=== PATIENT | female | born 1955 | race Caucasian/White ===

== ENCOUNTER 2017-09-15 15:38 | Outpatient (RCR) | payer MEDICAID, SELFPAY | END 2017-09-28 23:59 | LOC: NS 15:38 | PROVIDERS: Family Provider Family Medicine; PCP Family Medicine; Visit Provider Family Medicine | DX: E66.9 Obesity, unspecified (principal); Z68.38 Body mass index [BMI] 38.0-38.9, adult; Z71.3 Dietary counseling and surveillance | CPT/HCPCS: 97802 ==

== ENCOUNTER 2017-10-10 10:00 | Outpatient (RCR) | payer MEDICAID, SELFPAY ==
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
--- NOTE | 2017-09-07 09:58 | HP.PTREVAL_ITS ---
Cristian Ramirez, HARPREET, It has been my pleasure to treat JOCE JOY over the last 4 visits for Right ankle instability. Please see the progress note below for an update on the physical therapy plan of care! Subjective: Patient reports that she is wearing an ankle brace- continue therapy and then make an apt for a possible cortisone injection. Has a cyst on her ankle- and the fracture did not heel correctly. Does not plan to have an injection. Will refer to a surgeon for possible ankle surgery- Dr. Mcintosh. Objective/Function: Posture: FH, RS, Increased kyphosis. Gait: slightly antalgic- toes turned out. SLS: 2 sec. ROM: WNL. Strength:4/5 throughout Plan Plan: Cont with POC Goals Goal 1:: Patient will be I with HEP and progression Goal Time Frame: 4-6 Weeks Goal Progress: Progressing Goal 2:: Patient will SLS for 10 sec without LOB on the right LE Goal Time Frame: 4-6 Weeks Goal Progress: Progressing Goal 3:: Patient will demo 5/5 strength in LE where deficit to ease ADL's. Goal Time Frame: 4-6 Weeks Goal Progress: Progressing Goal 4:: Patient will report no falls for 2 weeks Goal Time Frame: 4-6 Weeks Goal Progress: Goal Met Anticipated Interventions Patient/Client Instruction: Educate patient on: Benefits of Fitness Program For the Purpose of:: To increase tolerance to activity/condition/position Therapeutic Exercise to Include: Strength training, Balance training, Agility training, Body mechanics, Postural training, Flexibilty training, Gait and locomotor training, Dynamic Lumbar Stabilization For the Purpose of:: To improve muscle performance and motor function TENS: Yes Cryotherapy (ice pack, ice massage): Yes Thermo therapy (hot pack): Yes Ultrasound (thermal/non thermal): Yes For the Purpose of:: To decrease pain Please do not hesitate to contact me at [phone] by phone or Fax: if you have questions or concerns regarding this new plan of care! Sincerely, Mandy Ashley
--- NOTE | 2017-10-10 10:30 | HP.PTDCSUM ---
HP - PT D/C Summary It has been my pleasure to treat JOCE JOY under orders from Cristian Ramirez DPM, for the diagnosis of Right ankle instability for a total of 9 visit(s). Discharge Date: Please see the following information for a summary of their discharge status. - Subjective Subjective: Pt reports she just saw her Dr, and he is referring her to an orthopedic surgeon secondary to lack of progress - Pain Right Ankle Pain Intensity (Out of 10): 9 - Objective Objective/Function: No falls over the past 2 weeks. R ankle strength 5/5. Pt is I with HEP. Pt is unable to hold a SLS for greater than 3 seconds. Pt has achieved all Rx goals with the exception of increased balance. Pain is severe this date - Goals Goal 1:: Patient will be I with HEP and progression Goal Progress: Goal Met Goal 2:: Patient will SLS for 10 sec without LOB on the right LE Goal Progress: Progressing Goal 3:: Patient will demo 5/5 strength in LE where deficit to ease ADL's. Goal Progress: Goal Met Goal 4:: Patient will report no falls for 2 weeks Goal Progress: Goal Met - Plan Plan: Discontinue - D/C Information If there are questions or concerns regarding this patient's physical therapy, please feel free to call me at [phone]. Thank you for the referral of this patient. Sincerely, Samy Jade, PT,
== END 2017-10-10 19:00 | disposition home or self-care (01) ==
LOC: PT 10:00
PROVIDERS: Family Provider Family Medicine; PCP Family Medicine; Visit Provider Podiatrist Foot & Ankle Surgery
DX: M25.371 Other instability, right ankle (principal); E66.9 Obesity, unspecified; Z68.38 Body mass index [BMI] 38.0-38.9, adult; Z71.3 Dietary counseling and surveillance
CPT/HCPCS: 97110; 97161; 97530; 97802

== ENCOUNTER 2017-10-24 11:07 | Outpatient (RCR) | payer MEDICAID, SELFPAY ==
[2017-08-18 10:45] VITALS: BP 154/88; BMI 34.1
== END 2017-10-26 23:59 ==
LOC: NS 11:07
PROVIDERS: Family Provider Family Medicine; PCP Family Medicine; Visit Provider Family Medicine
DX: E66.9 Obesity, unspecified (principal); Z68.38 Body mass index [BMI] 38.0-38.9, adult; Z71.3 Dietary counseling and surveillance
CPT/HCPCS: 97803

== ENCOUNTER → 2017-11-28 10:28 | Outpatient (CLI) | payer MEDICAID, SELFPAY ==
[2017-11-28 12:56] LABS: Cholesterol 203 mg/dL (200); High Density Lipoprotein 76 mg/dL; Triglycerides 106 mg/dL; Very Low Density Lipoprotein 21 mg/dL (5-40)
== END ==
PROVIDERS: Family Provider Family Medicine; PCP Family Medicine; Visit Provider Family Medicine
DX: E78.5 Hyperlipidemia, unspecified (principal)
CPT/HCPCS: 80061

== ENCOUNTER 2017-12-02 10:07 | Outpatient (RCR) | payer MEDICAID, SELFPAY | END 2017-12-26 23:59 | LOC: NS 10:07 | PROVIDERS: Family Provider Family Medicine; PCP Family Medicine; Visit Provider Family Medicine | DX: E66.9 Obesity, unspecified (principal); Z68.38 Body mass index [BMI] 38.0-38.9, adult; Z71.3 Dietary counseling and surveillance | CPT/HCPCS: 97803 ==

== ENCOUNTER → 2018-02-16 11:18 | Outpatient (CLI) | payer MEDICAID, SELFPAY ==
[2018-02-16 11:56] LABS: Absolute Lymphocyte Count 2.48 X10^3/ul (0.83-4.51); Absolute Neutrophil Count 4.9 X10^3/uL (2.0-7.7); Basophil# 0.02 X10^3/uL; Basophil% 0.2 % (0-1); Eosinophil# 0.04 X10^3/uL; Eosinophils% 0.5 % (0-5); Hemoglobin 11.4 g/dl (12.0-15.0); Lymphocyte # 2.48 X10^3/ul (4.0); Lymphocyte % 30.1 % (19-41); Mean Corp Hgb Conc 31.7 g/gl (32-36); Mean Corpuscular Hgb 27.9 pg (27.0-32.0); Mean Platelet Vol. 8.2 fl (6.2-12.0); Monocyte# 0.75 X10^3/uL; Monocyte% 9.1 % (0-10); Neutrophil # 4.94 X10^3/uL (2.7-7.7); POSITIVE COUNT NO; POSITIVE DIFFERENTIAL NO; POSITIVE MORPHOLOGY NO; Platelet Count 353 K/mm3 (150-450); RBC Distribution Width CV 15.3 % (11.6-14.6); RBC Distribution Width SD 49.1 fl (35.1-43.9); Red Blood Count 4.09 M/mm3 (4.2-5.4); White Blood Count 8.2 K/mm3 (4.4-11.0)
== END ==
PROVIDERS: Family Provider Family Medicine; PCP Family Medicine; Visit Provider Family Medicine
DX: Z51.81 Encounter for therapeutic drug level monitoring (principal)
CPT/HCPCS: 36415; 85025

== ENCOUNTER → 2018-03-30 13:48 | Outpatient (CLI) | payer MEDICAID, SELFPAY ==
[2018-03-30 15:56] LABS: Amphetamine Urine VISTA NEGATIVE (<1000 ng/mL); Barbiturate Urine VISTA NEGATIVE (< 200 ng/mL); Benzodiazepine Urine VISTA NEGATIVE (< 200 ng/mL); Cocaine Urine VISTA NEGATIVE (< 300 ng/mL); Ecstacy Urine VISTA NEGATIVE (< 500 ng/mL); Methadone Urine VISTA NEGATIVE (< 300 ng/mL); PCP Urine VISTA NEGATIVE (< 25 ng/mL); THC Urine VISTA NEGATIVE (< 50 ng/mL); Vista UDS pH Range 6
== END ==
PROVIDERS: Family Provider Family Medicine; PCP Family Medicine; Visit Provider Anesthesiology Pain Medicine
DX: F11.20 Opioid dependence, uncomplicated (principal)
CPT/HCPCS: 80307

== ENCOUNTER → 2018-04-20 10:56 | Outpatient (CLI) | payer MEDICAID, SELFPAY | PROVIDERS: Family Provider Family Medicine; PCP Family Medicine; Visit Provider Anesthesiology Pain Medicine | DX: M48.07 Spinal stenosis, lumbosacral region (principal) | CPT/HCPCS: 72148 ==

== ENCOUNTER → 2018-04-21 13:53 | Outpatient (CLI) | payer MEDICAID, SELFPAY ==
[2018-04-21 14:35] LABS: Absolute Lymphocyte Count 2.03 X10^3/ul (0.83-4.51); Absolute Neutrophil Count 4.2 X10^3/uL (2.0-7.7); Basophil# 0.02 X10^3/uL; Basophil% 0.3 % (0-1); Eosinophil# 0.08 X10^3/uL; Eosinophils% 1.1 % (0-5); Hematocrit 34.8 % (37-47); Hemoglobin 11.4 g/dl (12.0-15.0); Lymphocyte # 2.03 X10^3/ul (4.0); Lymphocyte % 29.2 % (19-41); Mean Corp Hgb Conc 32.8 g/gl (32-36); Mean Corpuscular Hgb 28.6 pg (27.0-32.0); Mean Corpuscular Volume 87.4 fL (81-99); Mean Platelet Vol. 8.3 fl (6.2-12.0); Monocyte% 8.6 % (0-10); Neutrophil # 4.22 X10^3/uL (2.7-7.7); Neutrophil % 60.7 % (47-70); POSITIVE COUNT NO; POSITIVE DIFFERENTIAL NO; POSITIVE MORPHOLOGY NO; Platelet Count 370 K/mm3 (150-450); RBC Distribution Width SD 44.4 fl (35.1-43.9); Red Blood Count 3.98 M/mm3 (4.2-5.4)
== END ==
PROVIDERS: Family Provider Family Medicine; PCP Family Medicine; Visit Provider Family Medicine
DX: J45.909 Unspecified asthma, uncomplicated (principal); M35.00 Sjogren syndrome, unspecified; R05 Cough
CPT/HCPCS: 36415; 71046; 85025; 87070; 87205

== ENCOUNTER → 2018-04-22 09:20 | Outpatient (CLI) | payer MEDICAID, SELFPAY | PROVIDERS: Family Provider Family Medicine; PCP Family Medicine; Visit Provider Family Medicine | DX: J45.909 Unspecified asthma, uncomplicated (principal); M35.00 Sjogren syndrome, unspecified; R05 Cough | CPT/HCPCS: 87633 ==

== ENCOUNTER 2018-05-20 15:50 | Emergency (ER) | payer MEDICAID, SELFPAY ==
[2018-05-20 15:51] VITALS: BP 163/96; PULSE 82; RESP 18; TEMP 37.1; O2SAT 94; BMI 37.3
--- NOTE | 2018-05-20 17:08 | CT_ITS ---
STUDY: CT BRAIN WITHOUT CONTRAST REASON FOR EXAM: Female, 63 years old. Fall RADIATION DOSAGE (If Supplied By Facility): CTDIvol = ( 44.99 ) mGy, DLP = ( 745.49 ) mGycm TECHNIQUE: Transaxial CT imaging of the brain was performed without administration of intravenous contrast material. Individualized dose optimization techniques were used for this CT. COMPARISON: None. FINDINGS: Mild right lateral scalp swelling/hematoma. Normal calvarium. Normal size ventricles and extra-axial spaces for the patient's age. Mild white matter microangiopathic ischemic changes of the cerebral hemispheres. Normal basal ganglia and thalami. Normal brainstem. Normal cerebellum. There is no intracranial hemorrhage. There are no findings of an acute ischemic infarction. Normal visualized paranasal sinuses. CT/Brain/Head without Contrast IMPRESSION: No acute intracranial pathology of the brain. Mild age-related changes. Right lateral scalp swelling/hematoma. Electronically Signed: Trevon Chawla DO at 18:19 EDT Tel [phone], Service support ,
--- NOTE | 2018-05-20 18:43 | ED.DCSUM_ITS ---
- ER Visit Summary Date of Service: 05/20/18 Chief Complaint: Head injury History of Present Illness: The patient is a 63 F who states that she was out in the yard doing yard work when she tripped in a hole and fell striking her head. No loss of consciousness. She notes some light sensitivity. She is not on any blood thinners. She notes a hematoma to her right parietal scalp. Physical Examination: Afebrile vital signs stable Gen: Well-nourished well-developed Head: Normocephalic right parietal scalp hematoma Eyes: Perrl EOMI ENT: TMs clear no rhinorrhea moist mucous membranes Neck: Supple no lymphadenopathy no JVD nontender CVS: Regular rate rhythm no murmurs normal S1-S2 Respiratory: No distress clear to auscultation bilaterally chest nontender Abdomen: Soft nontender nondistended normal bowel sounds no masses Back: Nontender Extremity: Nontender no edema Skin: Normal color no rash Neuro: alert orientated ?3 CN II-XII intact normal strength sensation reflexes gait cerebellar Psych: Normal affect normal mood Test Results: Given the location of her hematoma and out of concern for epidural hematoma or skull fracture CT was obtained which was negative Emergency Department Course and Treatment: Patient will be discharged home to follow-up with her doctor. Tylenol for pain. Impression: 1. Scalp hematoma This note was generated with [employer] dictation software. It may contain incorrect words, spelling, and punctuation that were not noted in review of the chart prior to signing ED Disposition - Plan for ED Patient: Disposition: Home or Assisted Living Chief Complaint: Head Injury Instructions: ED Contusion Scalp Referrals: Bay Ramos DO [Primary Care Provider] - 1 Week if not improving
[2018-05-20 18:48] VITALS: PULSE 79; RESP 12; O2SAT 97
== END 2018-05-20 18:49 | disposition home or self-care (01) ==
PROVIDERS: Emergency Provider Emergency Medicine; Family Provider Family Medicine; PCP Family Medicine
DX: S00.03XA Contusion of scalp, initial encounter (principal); R40.2410 Glasgow coma scale score 13-15, unspecified time; W01.0XXA Fall on same level from slipping, tripping and stumbling without subsequent striking against object, initial encounter; Y93.9 Activity, unspecified; Y92.9 Unspecified place or not applicable; I10 Essential (primary) hypertension; E78.00 Pure hypercholesterolemia, unspecified; F31.9 Bipolar disorder, unspecified; Z90.49 Acquired absence of other specified parts of digestive tract; Z79.899 Other long term (current) drug therapy
CPT/HCPCS: 70450; 99282

== ENCOUNTER → 2018-06-05 10:21 | Outpatient (CLI) | payer MEDICAID, SELFPAY ==
[2018-06-05 12:09] LABS: ALB/GLOB Ratio 0.9 RATIO (0.9-2.4); AST(SGOT) 19 U/L (15-37); Alanine Aminotransfer ALT/SGPT 22 U/L (13-56); Albumin, Serum 3.7 g/dL (3.2-5.0); Alkaline Phosphatase 84 U/L (45-117); Anion Gap 8 (5-15); BUN 14 mg/dL (7-18); BUN/Creat Ratio 18.6 RATIO (10-20); Chloride 96 mmol/L (98-107); Cholesterol 210 mg/dL (200); Creatinine, Serum 0.75 mg/dL (0.55-1.02); EST Glomerular Filtration Rate 83 mL/min (>60); Est Glom Filt Rate - Afr Amer 101 mL/min (>60); Globulin 4.2 g/dL (2.2-4.2); Glucose 84 mg/dL (74-106); High Density Lipoprotein 84 mg/dL; Potassium 4.1 mmol/L (3.5-5.1); Protein, Total 7.9 g/dL (6.4-8.2); Sodium Level 130 mmol/L (136-145); Triglycerides 92 mg/dL; Very Low Density Lipoprotein 18 mg/dL (5-40)
== END ==
PROVIDERS: Family Provider Family Medicine; PCP Family Medicine; Visit Provider Family Medicine
DX: I10 Essential (primary) hypertension (principal); E78.5 Hyperlipidemia, unspecified
CPT/HCPCS: 36415; 80053; 80061

== ENCOUNTER → 2018-07-03 10:35 | Outpatient (CLI) | payer MEDICAID, SELFPAY ==
--- NOTE | 2018-07-03 10:37 | BI_ITS ---
MAMMOGRAPHY - BILATERAL SCREENING REASON FOR EXAM: Female, 63 years old. Routine annual screening examination. PERTINENT HISTORY: Non-contributory. TECHNIQUE: Digital bilateral breast pepe (3D mammographic acquisition) in the CC and MLO projections. 2-D mediolateral oblique (MLO) and craniocaudad (CC) views of both breasts were obtained. CAD: Full Field Digital Mammography with Computer Added Detection was performed. COMPARISON: Comparison is made with prior study dated June 20, 2017 and June 18, 2016. FINDINGS: Breast Composition: The breasts are almost entirely fatty. There are no dominant masses or suspicious calcifications. No other significant abnormalities are identified. There has been no significant change since the prior study. BI/SCREENING MAMM (CAD), BILAT IMPRESSION: Stable bilateral screening mammogram. Yearly follow-up mammogram recommended. (A) ASSESSMENT CATEGORY: BIRADS Category 1: Negative. A letter regarding these results will be sent to the patient by the facility within 30 days. Approximately 10% of breast cancers are not detected by mammography. A normal mammogram should not delay biopsy of a clinically suspicious abnormality. [id number] Electronically Signed: Tahir Boone MD at 13:32 EST Tel [phone], Service support ,
== END ==
PROVIDERS: Family Provider Family Medicine; PCP Family Medicine; Visit Provider Obstetrics & Gynecology
DX: Z12.31 Encounter for screening mammogram for malignant neoplasm of breast (principal)
CPT/HCPCS: 77063; 77067

== ENCOUNTER 2018-07-25 06:04 | Day surgery (SDC) | payer MEDICAID, SELFPAY ==
[2018-07-25 06:38] VITALS: BP 104/76; PULSE 92; RESP 16; TEMP 36.4; O2SAT 98; BMI 36.2
[2018-07-25] MEDS: Vancomycin IV 1,000 MG/200 ML BAG 200 MG IV (06:59)
[2018-07-25 09:32] VITALS: BP 104/76; BP 98/64; PULSE 73; RESP 16; TEMP 36.5; O2SAT 100
--- NOTE | 2018-07-25 09:43 | DCINST_ITS ---
Discharge Diet: No Restrictions Discharge Activity: May not drive while taking narcotic pain medications., May Not Shower May resume sexual activity in: 8 weeks Call your doctor if your incision/area has: Continuous Slow Oozing, Sudden Increased Bleeding, Increased Pain/ Swelling, Increased Redness, Foul Smelling Discharge, Swelling at the incision site Call your doctor if you observe: Fever of 101 or Higher, Inability to urinate, Shortness of breath, Chest pain, Calf discomfort, Uncontrolled pain Cleanse incision/area with: Do not get Incision Wet Allergies/Adverse Reactions: Allergies tramadol [From Ultram] Allergy (Intermediate, Verified 07/25/18 06:35) Itching bee pollen Allergy (Verified 07/25/18 06:35) Anaphylaxis shellfish derived Allergy (Verified 07/25/18 06:35) Unknown divalproex sodium [From Depakote] Adverse Reaction (Intermediate, Verified 07/25/18 06:35) Other - nightmares quetiapine [From Seroquel] Adverse Reaction (Mild, Verified 07/25/18 06:35) Other - shaking, lightheaded and abnormal dreams meloxicam Adverse Reaction (Verified 07/25/18 06:35) Unknown oxycodone [Oxycodone] Adverse Reaction (Verified 07/25/18 06:35) Rash bee sting Allergy (Severe, Uncoded 07/25/18 06:35) Anaphylaxis STEROIDS Allergy (Intermediate, Uncoded 07/25/18 06:35) Hives & swelling Medications to take at Discharge Estradiol [Estrace] 1 mg PO DAILY 09/09/13 Hydrochlorothiazide 12.5 mg PO DAILY 09/09/13 Lisinopril [Zestril] 20 mg PO BID 09/09/13 Duloxetine Hcl [Cymbalta] 30 mg PO BID 06/17/16 Epinephrine [Epi Pen] 0.3 mg IM X1 06/17/16 Omeprazole [Prilosec] 40 mg PO DAILY 06/17/16 Potassium Chloride [K-Dur] 20 meq PO BID 06/17/16 ipratropium-albuterol 0.5 mg-3 mg(2.5 mg base)/3 mL nebulization soln 3 ml INHALATION Q6H PRN ml 08/13/17 ipratropium bromide 0.03 % nasal spray 2 spray INTRANASAL BID-TID PRN #30 ml 02/20/18 fluticasone 44 mcg/actuation HFA aerosol inhaler 2 inh INHALATION BID 05/15/18 dextromethorphan-guaifenesin 20 mg-400 mg tablet 1 tab PO Q4H PRN #30 tab 05/22/18 Albuterol Aerosols [Ventolin Aerosols] 2.5 mg INHALATION TID 07/18/18 Albuterol IH (ProAir) [Proair Hfa] 2 puff INHALATION TID 07/18/18 Amlodipine [Norvasc] 10 mg PO DAILY 07/18/18 Cetirizine HCl [Zyrtec] 10 mg PO DAILY 07/18/18 Hydroxychloroquine [Plaquenil] 200 mg PO BIDCM 07/18/18 Multivitamin [Multiple Vitamins] 1 each PO DAILY 07/18/18 Cephalexin [Keflex] 500 mg PO Q12 3 Days #6 cap 07/25/18 Oxycodone HCl/Acetaminophen [Percocet 5/325] 1 - 2 tab PO Q6H PRN PRN 7 Days #30 tab 07/25/18 The following prescriptions were given: Oxycodone HCl/Acetaminophen [Percocet 5/325] 1 - 2 tab PO Q6H PRN PRN 7 Days #30 tab PRN Reason: Pain Cephalexin [Keflex] 500 mg PO Q12 3 Days #6 cap Primary Care Physician: Bay Ramos DO [Primary Care Provider] - Test Results: Test results from this visit will be discussed in further detail at your follow- up appointment, if applicable. Please Follow Up With: Darya Abreu MD When: 1 week, call for appt Proposed Discharge Date: 07/25/18
--- NOTE | 2018-07-25 09:43 | PCM.IMDPSTOP ---
Immediate Post-Op Note Date of Procedure: 07/25/18 Primary Surgeon/Physician: Darya Abreu MD entry specialists: Darya Abreu Pre-Operative Diagnosis: urgency urination, urinary frequency, nocturia. Post-Operative Diagnosis: same Surgery/Procedure Performed:: Interstim Stage 1 Description of Surgical Findings:: lead inserted in patient's left side, medial and good curvature on A-P view. It is steep angle on lateral view, but good minevra and toe on all four leads. Estimated Blood Loss: 2cc Specimen's removed: none Type of Anesthesia:: MAC/Supplemental Special Medications: vancomycin, lidocaine with epi - Admit VTE Documentation VTE Present on Admission: No VTE Mechan Device Prophylaxis: None VTE Pharm Prophylaxis ordered?: No Reason prophylaxis not ordered:: Treatment Not Indicated
[2018-07-25 09:45] VITALS: BP 102/67; BP 104/76; PULSE 78; RESP 16; O2SAT 100
--- NOTE | 2018-07-25 09:46 | OP.PN_ITS ---
Immediate Post-Op Note Date of Procedure: 07/25/18 Primary Surgeon/Physician: Darya Abreu MD packing attendant: Darya Abreu Pre-Operative Diagnosis: urgency urination, urinary frequency, nocturia. Post-Operative Diagnosis: same Surgery/Procedure Performed:: Interstim Stage 1 Description of Surgical Findings:: lead inserted in patient's left side, medial and good curvature on A-P view. It is steep angle on lateral view, but good minerva and toe on all four leads. Estimated Blood Loss: 2cc Specimen's removed: none Type of Anesthesia:: MAC/Supplemental Special Medications: vancomycin, lidocaine with epi - Admit VTE Documentation VTE Present on Admission: No VTE Mechan Device Prophylaxis: None VTE Pharm Prophylaxis ordered?: No Reason prophylaxis not ordered:: Treatment Not Indicated
--- NOTE | 2018-07-25 09:46 | PCM.OPRPT ---
Problem List (1) Urinary frequency Status: Acute (2) Urinary urgency Status: Acute (3) Urinary incontinence, urge Status: Acute Report of Operation Date of Procedure: 07/25/18 Pre-Operative Diagnosis: urgency urination, urinary frequency, nocturia. Post-Operative Diagnosis: same Surgery/Procedure Performed:: Interstim Stage 1 Description of Surgical Findings:: lead inserted in patient's left side, medial and good curvature on A-P view. It is steep angle on lateral view, but good pancho and toe on all four leads. continuous improvement engineer: Darya Abreu Type of Anesthesia:: MAC/Supplemental Special Medications: vancomycin, lidocaine with epi Specimen's removed: none Estimated Blood Loss (mL): 2cc Description of Procedure: The patient is a 63-year-old female with severe urinary urgency frequency and incontinence refractory to level 1 and 2 management strategies. After full evaluation including urodynamics and office cystoscopy, the patient agreed to proceed with an InterStim trial. All risks benefits and alternatives were discussed preoperatively. The patient was taken to the operating room and placed in a prone position on the operating room table. All dependent areas were appropriately padded and secured to the table. Anesthesia monitored the head, neck, airway, IV access and vital signs throughout the case. Once anesthesia was appropriately administered the patient was prepped and draped in usual sterile fashion. C-arm was draped in sterile fashion as well. Fluoroscopic visualization was used for confirmation of lead placement. The area of her sacrum was mapped out using fluoroscopy and the insertion sites of the needles bilaterally were numbed using lidocaine with epinephrine. The needle was passed into the S3 foramen and good pancho response and toe was obtained. This was on the patient's right side. After attempted passage of the lead into this foramen on the patient's right side attempts were unsuccessful at obtaining Pancho and toe response. The entire leg rotated with stimulation. I was unable to place a needle in a good position and obtain stimulation on all 4 leads on the patient's right side and the decision was made to move to her left side. The needle was placed in a very acute angle through her sacrum on lateral view. On AP view however, the needle appeared to be in good position. On testing all 4 leads obtained good pancho and toe response. Decision was made to keep the lead placement on the patient's left side. The guidewire is passed and the incision was made surrounding the guidewire. A dilator was passed through into the foramen using fluoroscopic guidance. This time the lead was passed in a curved fashion and as mentioned above all 4 leads obtained good responses. The lead was then tunneled into the pocket site on the patient's right side. This pocket was formed using both sharp and blunt dissection and lidocaine for anesthesia. This was then tunneled to the opposite side for prevention of infection. The incision was closed using 3-0 interrupted sutures followed by 4-0 subcuticular. Dermabond was placed on top of this. Once this was appropriately dried the lead extension was attached to the lead and secured to the patient using Tegaderm and tape. Patient was then awakened and taken to the recovery room in good condition. There were no complications during this procedure. Grafts/Implants Used: Interstim Stage 1 lead and extension - Complications none - Admit VTE Documentation VTE Present on Admission: No VTE Mechan Device Prophylaxis: None VTE Pharm Prophylaxis ordered?: No Reason prophylaxis not ordered:: Treatment Not Indicated
[2018-07-25 09:49] VITALS: BP 103/68; BP 104/76; PULSE 75; RESP 16; TEMP 36.6; O2SAT 100
[2018-07-25 11:08] VITALS: BP 104/76
--- OUTSIDE RECORDS SUMMARY | 2018-09-05 19:25 | XMS RPT_ITS ---
:1955 Author Organization OHIP Support Name Relationship Address Phone D Unavailable Unavailable Unavailable ROSE MARIE, LIDIA Unavailable [address] + [place] [address] D Unavailable Unavailable Unavailable ROSE MARIE, LIDIA Unavailable [address] + [place] [address] D Unavailable Unavailable Unavailable ROSE MARIE, LIDIA Unavailable [address] + [place] [address] D Unavailable Unavailable Unavailable ROSE MARIE, LIDIA Unavailable [address] + [place] [address] D Unavailable Unavailable Unavailable ROSE MARIE, LIDIA Unavailable [address] + [place] [address] D Unavailable Unavailable Unavailable ROSE MARIE, LIDIA Unavailable [address] + [place] [address] D Unavailable Unavailable Unavailable ROSE MARIE, LIDIA Unavailable [address] + [place] [address] D Unavailable Unavailable Unavailable ROSE MARIE, LIDIA Unavailable [address] + [place] [address] D Unavailable Unavailable Unavailable ROSE MARIE, LIDIA Unavailable [address] + [place] [address] D Unavailable Unavailable Unavailable ROSE MARIE, LIDIA Unavailable [address] + [place] [address] D Unavailable Unavailable Unavailable ROSE MARIE, LIDIA Unavailable [address] + [place] [address] D Unavailable Unavailable Unavailable ROSE MARIE, LIDIA Unavailable [address] + [place] [address] D Unavailable Unavailable Unavailable ROSE MARIE, LIDIA Unavailable [address] + [place] [address] D Unavailable Unavailable Unavailable ROSE MARIE, LIDIA Unavailable [address] + [place] [address] D Unavailable Unavailable Unavailable ROSE MARIE, LIDIA Unavailable [address] + [place] [address] D Unavailable Unavailable Unavailable ROSE MARIE, LIDIA Unavailable [address] + [place] [address] D Unavailable Unavailable Unavailable ROSE MARIE, LIDIA Unavailable [address] + [place] [address] D Unavailable Unavailable Unavailable ROSE MARIE, LIDIA Unavailable [address] + [place] [address] D Unavailable Unavailable Unavailable ROSE MARIE, LIDIA Unavailable [address] + [place] [address] D Unavailable Unavailable Unavailable ROSE MARIE, LIDIA Unavailable [address] + [place] [address] D Unavailable Unavailable Unavailable ROSE MARIE, LIDIA Unavailable [address] + [place] [address] D Unavailable Unavailable Unavailable ROSE MARIE, LIDIA Unavailable [address] + [place] [address] D Unavailable Unavailable Unavailable SYEDA, LIDIA Unavailable [address] + [place] [address] Care Team Providers Name Role Phone ISI GANDHI Attending Unavailable TESTRAKEISI Referring Unavailable TESTRAISI IVAN Attending Unavailable TESTRAKEISI Referring Unavailable RAY, GÉNESIS Attending Unavailable RAY, GÉNESIS Referring Unavailable RAY, GÉNESIS Referring Unavailable RAY, GÉNESIS Attending Unavailable TestraIsi ivan Attending Unavailable Richard, Bay Primary Care Unavailable Cristobal Olmos Attending Unavailable Bay Ramos Referring Unavailable RichardBay frank Primary Care Unavailable TAMARA ESPARZA Attending Unavailable Bay Ramos Primary Care Unavailable Bay Ramos Attending Unavailable Bay Ramos Referring Unavailable RichardBay Primary Care Unavailable RichardBay frank Attending Unavailable Richard, Bay Referring Unavailable Richard, Bay Primary Care Unavailable Richard, Bay Attending Unavailable Richard, Bay Referring Unavailable Richard, Bay Primary Care Unavailable Ryland, Angélica Attending Unavailable Richard, Bay Referring Unavailable Marcelino, Angélica Attending Unavailable Richard, Bay Referring Unavailable Richard, Bay Attending Unavailable Richard, Bay Primary Care Unavailable Richard, Bay Attending Unavailable Richard, Bay Referring Unavailable Richard, Bay Primary Care Unavailable Richard, Bay Attending Unavailable Richard, Bay Primary Care Unavailable Richard, Bay Referring Unavailable Marcelino, Angélica Attending Unavailable Richard, Bay Referring Unavailable Basali, Joe Attending Unavailable Basali, Joe Referring Unavailable Richard, Bay Primary Care Unavailable Daniel, Joe Attending Unavailable Basali, Gabrieleman Referring Unavailable Richard, Bay Primary Care Unavailable Richard, Bay Attending Unavailable Richard, Bay Referring Unavailable Richard, Bay Primary Care Unavailable Richard, Bay Attending Unavailable Richard, Bay Referring Unavailable Richard, Bay Primary Care Unavailable Angélica Marcelino Attending Unavailable Richard, Bay Referring Unavailable Richard, Bay Primary Care Unavailable Vincenzo Martinez Attending Unavailable Richard, Bay Attending Unavailable Richard, Bay Primary Care Unavailable Wesley Thomas Attending Unavailable Richard, Bay Primary Care Unavailable Darya Abreu Attending Unavailable Darya Abreu Referring Unavailable Richard, Bay Primary Care Unavailable Darya Abreu Attending Unavailable Darya Abreu Referring Unavailable Richard, Bay Primary Care Unavailable Cristobal Olmos Attending Unavailable Richard, Bay Referring Unavailable PROBLEMS PROBLEMS DATE TYPE CONDITION / CODE ATTENDING STATUS SOURCE 08/08/2018 Unknown R39.15 - Urgency of Darya Abreu Active [place] urination / Community R39.15(ICD-10) Hospital Repository 08/02/2018 Unknown R09.82 - Postnasal Cristobal Olmos Active [place] drip / Community R09.82(ICD-10) Hospital Repository 07/25/2018 Unknown R35.0 - Frequency Darya Abreu Active [place] of micturition / Community R35.0(ICD-10) Hospital Repository 06/05/2018 Unknown E78.5 - Bay Ramos Active [place] Hyperlipidemia, Community unspecified / Hospital E78.5(ICD-10) Repository 06/05/2018 Unknown I10 - Essential Bay Ramos Active [place] (primary) Community hypertension / Hospital I10(ICD-10) Repository 04/21/2018 Unknown M35.00 - Sicca Bay Ramos Active [place] syndrome, Community unspecified / Hospital M35.00(ICD-10) Repository 04/21/2018 Unknown J45.909 - Bay Ramos Active [place] Unspecified asthma, Community uncomplicated / Hospital J45.909(ICD-10) Repository 04/13/2018 Unknown F11.20 - Opioid Basali, Ayman Active [place] dependence, Community uncomplicated / Hospital F11.20(ICD-10) Repository 02/20/2018 Unknown J45.20 - Mild Marcelino, Active [place] intermittent Angélica [facility] asthma, Hospital uncomplicated / Repository J45.20(ICD-10) 02/16/2018 Unknown Z51.81 - Encounter Bay Ramos Active [place] for therapeutic Community drug level Hospital monitoring / Repository Z51.81(ICD-10) 12/27/2017 Unknown E66.9 - Obesity, Bay Ramos Active [place] unspecified / Community E66.9(ICD-10) Hospital Repository 11/04/2017 Active [place]ca syndrome, NA Active [facility] unspecified / [facility] [place] M35.00(ICD-10) Repository 10/13/2017 Unknown M25.371 - Other [place], Active [place] instability, right [facility] ankle / Hospital M25.371(ICD-10) Repository PROCEDURES PROCEDURES No Procedure Records FoundRESULTS RESULTS OPERATIVE REPORT Observed: 08/08/2018 Status: F Source: [place] 10:56 AM COUNT INCLUDES THE [facility] HOSPITAL REPOSITORY [facility] Medical Records Department [address] [place] [address] Operative Report 08/08/18 1052 MR#: [id number] Acct: [id number] Name: WINTER JOY Rep #: [id number] : 1955 63 From: Darya Abreu MD PCP: Bay Ramos DO Status: DEP [facility] [place] [place] Y Location: [facility] [place] [place] Problem List (1) Urinary frequency Status: Acute (2) Urinary urgency Status: Acute (3) Urinary incontinence, urge Status: Acute Report of Operation Date of Procedure: 08/08/18 Pre-Operative Diagnosis: urinary urgency, frequency, urge incontinence. Post-Operative Diagnosis: same Surgery/Procedure Performed:: Interstim Stage 2 Description of Surgical Findings:: no sign of infection. no impedances. implanted IPG without complication on her right side. nutritional services cook: Darya Abreu Type of Anesthesia:: MAC/Supplemental/Local Specimen's removed: none Estimated Blood Loss (mL): 2cc Description of Procedure: The patient is a 63-year-old female with a successful InterStim stage I who presents for insertion of her IPG. All risks, benefits and alternatives were discussed. The patient was taken to the operating room and placed in a prone position on the operating room table. All dependent portions of her body were appropriately padded and she was secured to the table. At this time the op sites and bandages from the stage I were carefully removed. Anesthesia monitored the head, neck, airway, IV access, vital signs throughout the case. Once anesthesia was appropriately administered the patient was prepped and draped in usual sterile fashion. The area of the incision overlying the boot was infiltrated with lidocaine and the incision was opened with hemostats. Using blunt dissection the boot was identified and brought into the operative field. The Prolene sutures were cut and the boot was removed. The lead was taken out of the extension using the torque wrench. The pocket was appropriately enlarged and developed using both cautery and blunt dissection. Hemostatic control was achieved. The lead was cleaned and dried and inserted into the IPG and secured using the torque wrench. The IPG was then placed into the pocket and the skin was brought together. Testing revealed no impedances. The pocket was then closed in 2 layers using 3-0 interrupted suture followed by 4-0 subcuticular suture. The incision was then covered with Dermabond. Once dry, the patient was awakened and the lead extension was removed without difficulty. She was taken to the recovery room in good condition. There were no complications during this procedure. Grafts/Implants Used: Interstim IPG - Complications none - Admit VTE Documentation VTE Present on Admission: Yes VTE Mechan Device Prophylaxis: SCD's, None Reason prophylaxis not ordered:: Treatment Not Indicated 08/08/18 1056 <Electronically signed by Darya Abreu MD> Date Darya Abreu MD CC: Darya Abreu MD; Bay Ramos DO Signed DISCHARGE INSTRUCTION Observed: 08/08/2018 Status: F Source: [place] 8:27 AM [facility] REPOSITORY [facility] Medical Records Department [address] [place] [address] Instructions for Home/Discharge Instructions 08/08/18 0823 MR#: [id number] Acct: [id number] Name: WINTER JOY Rep #: [id number] : 1955 63 From: Darya Abreu MD PCP: Bay Ramos DO Status: REG SDC Discharge Diet: No Restrictions Discharge Activity: May not drive while taking narcotic pain medications., May Shower, - - no tub bathing for 4 weeks. May resume sexual activity in: No Restrictions Call your doctor if your incision/area has: Continuous Slow Oozing, Sudden Increased Bleeding, Increased Pain/ Swelling, Increased Redness, Foul Smelling Discharge, Swelling at the incision site Call your doctor if you observe: Fever of 101 or Higher, Inability to urinate, Shortness of breath, Chest pain, Calf discomfort, Uncontrolled pain Allergies/Adverse Reactions: Allergies tramadol [From Ultram] Allergy (Intermediate, Verified 08/02/18 09:09) Itching bee pollen Allergy (Verified 08/02/18 09:09) Anaphylaxis shellfish derived Allergy (Verified 08/02/18 09:09) Unknown divalproex sodium [From Depakote] Adverse Reaction (Intermediate, Verified 08/02/18 09:09) Other - nightmares quetiapine [From Seroquel] Adverse Reaction (Mild, Verified 08/02/18 09:09) Other - shaking, lightheaded and abnormal dreams meloxicam Adverse Reaction (Verified 08/02/18 09:09) Unknown oxycodone [Oxycodone] Adverse Reaction (Verified 08/02/18 09:09) Rash bee sting Allergy (Severe, Uncoded 08/02/18 09:09) Anaphylaxis STEROIDS Allergy (Intermediate, Uncoded 08/02/18 09:09) Hives AND swelling Medications to take at Discharge Estradiol [Estrace] 1 mg PO DAILY 09/09/13 Hydrochlorothiazide 12.5 mg PO DAILY 09/09/13 Lisinopril [Zestril] 20 mg PO BID 09/09/13 Duloxetine Hcl [Cymbalta] 30 mg PO BID 06/17/16 Epinephrine [Epi Pen] 0.3 mg IM X1 06/17/16 Omeprazole [Prilosec] 40 mg PO DAILY 06/17/16 Potassium Chloride [K-Dur] 20 meq PO BID 06/17/16 ipratropium-albuterol 0.5 mg-3 mg(2.5 mg base)/3 mL nebulization soln 3 ml INHALATION Q6H PRN ml 08/13/17 ipratropium bromide 0.03 % nasal spray 2 spray INTRANASAL BID-TID PRN #30 ml 02/20/18 Albuterol Aerosols [Ventolin Aerosols] 2.5 mg INHALATION TID 07/18/18 Albuterol IH (ProAir) [Proair Hfa] 2 puff INHALATION TID 07/18/18 Amlodipine [Norvasc] 10 mg PO DAILY 07/18/18 Cetirizine HCl [Zyrtec] 10 mg PO DAILY 07/18/18 Hydroxychloroquine [Plaquenil] 200 mg PO BIDCM 07/18/18 Multivitamin [Multiple Vitamins] 1 ea PO DAILY 07/18/18 guaifenesin ER 1,200 mg tablet, extended release 12 hr 1,200 mg PO Q12H #60 tab 08/02/18 Primary Care Physician: Bay Ramos DO [Primary Care Provider] - Test Results: Test results from this visit will be discussed in further detail at your follow-up appointment, if applicable. Please Follow Up With: Darya Abreu MD When: 1 weeks, call office for appt Proposed Discharge Date: 08/08/18 08/08/18 0827 <Electronically signed by Darya Abreu MD> Date Darya Abreu MD CC: Bay Ramos DO PULMONARY VISIT REPORT Observed: 08/02/2018 Status: F Source: [place] 10:05 AM [facility] REPOSITORY [facility] [place] [address] [place] [address] OFFICE VISIT Date of Service: 08/02/18 MR#: [id number] Acct: [id number] Name: WINTER JOY Rep #: [id number] : 1955 Provider: Cristobal Olmos MD Age/Sex: 63/F Location: [facility] [place] Status: Signed Assessment AND Plan Problems 1. Mild intermittent asthma in adult without complication J45.20 2. PND (post-nasal drip) R09.82 Plan Patient overall appears to be doing well. Lack of need for Flovent likely secondary to decrease in temperature and less environmental stimulation. Patient should stay off of Flovent at this time. Patient may need to be reinitiated on Flovent in the spring when allergies are high. Patient was given a prescription for Mucinex therapy. Okay to stay off of Flovent now. Likely reinitiate in the spring. Medications New: Discontinued: dextromethorphan-guaifenesin 20-400 mg Discontinued1 tab PO Q4H PRN 30 tabs 0RF cough Reason: Order Changed Plan Detail Follow Up 6 Months (CSM) HPI 6 M FU: Chief Complaint: Cough Details: Patient is a 63-year-old female, currently under the care of Dr. Ramos, who presents for evaluation secondary to cough. Since last visit, patient denies any ER visits, hospitalizations or prednisone burst. Patient subjectively feels unchanged compared to previous. Patient reports that she is currently off of Flovent therapy. Patient is still using albuterol twice daily, but this appears to be out of habit more than necessity. Patient had never initiated herself on Mucinex therapy, but feels her sinus congestion is slightly improved compared to previous. Patient continues to have a cough that is intermittently productive. This is typically productive of the same as nasal secretions. No chest pain is been reported. Patient has recently had an intervention for bladder stimulator. Patient states that stage II is to be in July. HPI Comments Details: Intake Vital Signs08/02/18 Body Mass Index (BMI) 36.2 08/02/18 Height 5 ft 3 in 08/02/18 Weight: 98.883 kg Intake Visit Reasons: 6 M FU Accompanied by: Self Allergies tramadol [From Ultram] Allergy (Intermediate, Verified 08/02/18 09:09) Itching bee pollen Allergy (Verified 08/02/18 09:09) Anaphylaxis shellfish derived Allergy (Verified 08/02/18 09:09) Unknown divalproex sodium [From Depakote] Adverse Reaction (Intermediate, Verified 08/02/18 09:09) Other - nightmares quetiapine [From Seroquel] Adverse Reaction (Mild, Verified 08/02/18 09:09) Other - shaking, lightheaded and abnormal dreams meloxicam Adverse Reaction (Verified 08/02/18 09:09) Unknown oxycodone [Oxycodone] Adverse Reaction (Verified 08/02/18 09:09) Rash bee sting Allergy (Severe, Uncoded 08/02/18 09:09) Anaphylaxis STEROIDS Allergy (Intermediate, Uncoded 08/02/18 09:09) Hives AND swelling Medications Estradiol [Estrace] 1 mg PO DAILY 09/09/13 [History Confirmed 08/02/18] Hydrochlorothiazide 12.5 mg PO DAILY 09/09/13 [History Confirmed 08/02/18] Lisinopril [Zestril] 20 mg PO BID 09/09/13 [History Confirmed 08/02/18] Duloxetine Hcl [Cymbalta] 30 mg PO BID 06/17/16 [History Confirmed 08/02/18] Epinephrine [Epi Pen] 0.3 mg IM X1 06/17/16 [History Confirmed 08/02/18] Omeprazole [Prilosec] 40 mg PO DAILY 06/17/16 [History Confirmed 08/02/18] Potassium Chloride [K-Dur] 20 meq PO BID 06/17/16 [History Confirmed 08/02/18] ipratropium-albuterol 0.5 mg-3 mg(2.5 mg base)/3 mL nebulization soln 3 ml INHALATION Q6H PRN ml 08/13/17 [History Confirmed 08/02/18] ipratropium bromide 0.03 % nasal spray 2 spray INTRANASAL BID-TID PRN #30 ml 02/20/18 [Rx Confirmed 08/02/18] Albuterol Aerosols [Ventolin Aerosols] 2.5 mg INHALATION TID 07/18/18 [History Confirmed 08/02/18] Albuterol IH (ProAir) [Proair Hfa] 2 puff INHALATION TID 07/18/18 [History Confirmed 08/02/18] Amlodipine [Norvasc] 10 mg PO DAILY 07/18/18 [History Confirmed 08/02/18] Cetirizine HCl [Zyrtec] 10 mg PO DAILY 07/18/18 [History Confirmed 08/02/18] Hydroxychloroquine [Plaquenil] 200 mg PO BIDCM 07/18/18 [History Confirmed 08/02/18] Multivitamin [Multiple Vitamins] 1 ea PO DAILY 07/18/18 [History Confirmed 08/02/18] guaifenesin ER 1,200 mg tablet, extended release 12 hr 1,200 mg PO Q12H #60 tab 08/02/18 [Rx Confirmed 08/02/18] PFSH Medical History Encounter for screening for malignant neoplasm of colon (Acute) Epigastric abdominal pain (Acute) Back sprain (Acute) Chest pain (Acute) Lightheadedness (Acute) Loss of appetite (Acute) Otitis media (Acute) Right flank pain (Acute) Sinusitis (Acute) Anxiety (Chronic) Asthma (Chronic) Bipolar disorder (Chronic) Depression (Chronic) Eustachian tube dysfunction (Chronic) GERD (gastroesophageal reflux disease) (Chronic) Hepatitis (Chronic) Herpes simplex with unspecified complication (Chronic) Hyperlipidemia (Chronic) Hypertension (Chronic) Long-term use of high-risk medication (Chronic) Mild dilation of ascending aorta (Chronic) Mild mitral regurgitation (Chronic) Nephrolithiasis (Chronic) Nightmares (Chronic) OCD (obsessive compulsive disorder) (Chronic) TROY (obstructive sleep apnea) (Chronic) Obesity (Chronic) Paroxysmal atrial tachycardia (Chronic) Rhinorrhea (Chronic) Segmental and somatic dysfunction of cervical region (Chronic) Segmental and somatic dysfunction of thoracic region (Chronic) Spinal stenosis of lumbar region (Chronic) Thoracic aortic aneurysm without rupture (Chronic) H/O: hysterectomy (Resolved) Surgical History H/O eye surgery (Resolved) H/O hand surgery (Resolved) History of appendectomy (Resolved) History of bilateral carpal tunnel release (Resolved) History of total right knee replacement (Resolved) Hx laparoscopic cholecystectomy (Resolved) bladder sling removal (Resolved) Family History Father Cancer Mother Heart disease H/O weight disorder Sister Hypertension Social History Smoking Status: Never smoker second hand exposure: No alcohol intake: never substance use type: does not use Review of Systems Const CONSTITUTIONAL: Positive anorexia, body ache and fatigue; negative chills, daytime sleepiness, fever(s), night sweats, oral thrush, stops breathing during sleep, weight loss, sleeping in chair, weight loss, weight gain, frequent colds, seasonal allergies, other, headache(s) or orthopnea EETM Ear Nose Throat Mouth: Positive hearing normal, itchy eyes and nasal discharge; negative hard of hearing, hoarseness, dry mouth in morning, change in vision, eye pain, swallowing Difficulty, ear pain, nose bleed, headache(s), mouth pain, nasal congestion, post nasal drip, sinus pain, sinus pressure, sore throat or other Cardio Cardiovascular: Negative chest pain, chest pain at rest, chest pain with activity, irregular heart rhythm, edema, shortness of breath when lying down, palpitations, murmur or other Resp Respiratory: Positive as per HPI and cough cough: Positive non-productive; negative shortness of breath, pain with cough, wheezing, chest congestion, chest tightness, pain on inspiration, inhalers, increase use of rescue inhalers, snoring, apnea or other Gastro Gastrointestional: Negative bloody stools, change in appetite, difficulty swallowing, reflux, hematemesis, melena stool, loose stool, constipation or other Genitourinary: Negative blood in urine, nocturia, pain with urination or other Musc Musculoskeletal: Positive neck pain; negative body pain, back pain or other Skin/Breast Skin/Breast: Positive itching and rash; negative dry skin, unusual bruising, breast lump or other Neuro Neurological: Positive confusion; negative restless legs, weakness or other Psych Psychocological: Positive anxiety and hopelessness; negative abnormal sleep pattern, thoughts of hurting self/others or other Lymph Lymphatic: Negative easy bleeding, easy bruising, swollen lymph nodes or other Exam Const Constitutional: Positive conversant, cooperative, in no acute respiratory distress, healthy appearing, well developed, well nourished, good hygiene, appears older than stated age and obese; negative wearing supplemental oxygen Head Head: Positive normocephalic and atraumatic; negative cyanosis of lips/distal nose, frontal sinus tenderness or maxillary sinus tenderness Eyes Eye: Positive clear conjunctiva; negative nystagmus, scleral abnormality or cataract present Ears Ear: Positive hearing normal and external ears normal; negative hard of hearing Nose Nose: Positive external nose normal, septum normal and no nasal discharge; negative epistaxis or nasal polyp Mouth Mouth: Positive oral mucosae normal, no lesions, dentures and crowded posterior oropharynx; negative post nasal drip, malodorous breath or oral thrush present Mallampati Score: III: Mallampati Score Neck Neck: Positive normal visual inspection, full ROM and trachea midline; negative lymphadenopathy or JVD Chest Wall Chest: Positive normal inspection of the chest and symmetric chest movement; negative crepitus or tenderness Resp lung sounds: Positive clear to auscultation, good air exchange, normal expiratory time and normal respiratory effort; negative wheezes, rhonchi, rales, use of accessory muscles, wheeze present on forced exhalation or dullness to percussion Cardio Cardiac: Positive regular rate, regular rhythm, S1 normal and S2 normal; negative murmur, rub or gallop GI GI: Positive normal to inspection, normal bowel sounds and obese; negative distended, ascites or epigastric tenderness Genitourinary: Positive deferred Musc Musculoskeletal: Positive steady gait; negative using an assistive device for ambulation, kyphosis or scoliosis Skin Pulmonary Skin Exam: Positive rash and intact; negative lesion, ulcers, erythema or dermal atrophy Pulses Pulse: Yes radial pulses present Extremities Extremities: Yes capillary refill normal, No clubbing, No cyanosis, Yes edema (2+) Location: lower extremity Neuro Neurologic: Yes conversant, Yes no focal neuro deficits, Yes normal concentration, Yes understands questions, Yes cooperative, Yes normal coordination, Yes normal cognition Lymph Lymphatic: No lymphadenopathy Psych Appearance: Negative eye contact Mental Status: Positive mental status grossly normal Mood: Positive manic mood Affect: Positive animated Coding Level of Care Code Off vis,est,level 3 Diagnoses Mild intermittent asthma in adult without complication J45.20 PND (post-nasal drip) R09.82 08/02/18 1005 <Electronically signed by Cristobal Olmos MD> Date Cristobal Olmos MD [facility] Signature: Date (if applicable) CC: Bay Richard OPERATIVE REPORT Observed: 07/25/2018 Status: F Source: [place] 9:52 AM [facility] REPOSITORY [facility] Medical Records Department [address] [place] [address] Operative Report 07/25/18 0946 MR#: [id number] Acct: [id number] Name: WINTER JOY Rep #: [id number] : 1955 63 From: Darya Abreu MD PCP: Bay Ramos DO Status: REG [facility] [place] [place] Y Location: [place] [address] Problem List (1) Urinary frequency Status: Acute (2) Urinary urgency Status: Acute (3) Urinary incontinence, urge Status: Acute Report of Operation Date of Procedure: 07/25/18 Pre-Operative Diagnosis: urgency urination, urinary frequency, nocturia. Post-Operative Diagnosis: same Surgery/Procedure Performed:: Interstim Stage 1 Description of Surgical Findings:: lead inserted in patient's left side, medial and good curvature on A-P view. It is steep angle on lateral view, but good pancho and toe on all four leads. nutritional services cook: Darya Abreu Type of Anesthesia:: MAC/Supplemental Special Medications: vancomycin, lidocaine with epi Specimen's removed: none Estimated Blood Loss (mL): 2cc Description of Procedure: The patient is a 63-year-old female with severe urinary urgency frequency and incontinence refractory to level 1 and 2 management strategies. After full evaluation including urodynamics and office cystoscopy, the patient agreed to proceed with an InterStim trial. All risks benefits and alternatives were discussed preoperatively. The patient was taken to the operating room and placed in a prone position on the operating room table. All dependent areas were appropriately padded and secured to the table. Anesthesia monitored the head, neck, airway, IV access and vital signs throughout the case. Once anesthesia was appropriately administered the patient was prepped and draped in usual sterile fashion. C-arm was draped in sterile fashion as well. Fluoroscopic visualization was used for confirmation of lead placement. The area of her sacrum was mapped out using fluoroscopy and the insertion sites of the needles bilaterally were numbed using lidocaine with epinephrine. The needle was passed into the S3 foramen and good pacnho response and toe was obtained. This was on the patient's right side. After attempted passage of the lead into this foramen on the patient's right side attempts were unsuccessful at obtaining Pancho and toe response. The entire leg rotated with stimulation. I was unable to place a needle in a good position and obtain stimulation on all 4 leads on the patient's right side and the decision was made to move to her left side. The needle was placed in a very acute angle through her sacrum on lateral view. On AP view however, the needle appeared to be in good position. On testing all 4 leads obtained good pancho and toe response. Decision was made to keep the lead placement on the patient's left side. The guidewire is passed and the incision was made surrounding the guidewire. A dilator was passed through into the foramen using fluoroscopic guidance. This time the lead was passed in a curved fashion and as mentioned above all 4 leads obtained good responses. The lead was then tunneled into the pocket site on the patient's right side. This pocket was formed using both sharp and blunt dissection and lidocaine for anesthesia. This was then tunneled to the opposite side for prevention of infection. The incision was closed using 3-0 interrupted sutures followed by 4-0 subcuticular. Dermabond was placed on top of this. Once this was appropriately dried the lead extension was attached to the lead and secured to the patient using Tegaderm and tape. Patient was then awakened and taken to the recovery room in good condition. There were no complications during this procedure. Grafts/Implants Used: Interstim Stage 1 lead and extension - Complications none - Admit VTE Documentation VTE Present on Admission: No VTE Mechan Device Prophylaxis: None VTE Pharm Prophylaxis ordered?: No Reason prophylaxis not ordered:: Treatment Not Indicated 07/25/18 0952 <Electronically signed by Darya Abreu MD> Date Darya Abreu MD CC: Darya Abreu MD; Bay Ramos DO Signed DISCHARGE INSTRUCTION Observed: 07/25/2018 Status: F Source: JANAY 9:43 AM [facility] REPOSITORY [facility] Medical Records Department [address] [place] [address] Instructions for Home/Discharge Instructions 07/25/1842 MR#: [id number] Acct: [id number] Name: WINTER JOY Rep #: [id number] : 1955 63 From: Darya Abreu MD PCP: Bay Ramos DO Status: REG SDC Discharge Diet: No Restrictions Discharge Activity: May not drive while taking narcotic pain medications., May Not Shower May resume sexual activity in: 8 weeks Call your doctor if your incision/area has: Continuous Slow Oozing, Sudden Increased Bleeding, Increased Pain/ Swelling, Increased Redness, Foul Smelling Discharge, Swelling at the incision site Call your doctor if you observe: Fever of 101 or Higher, Inability to urinate, Shortness of breath, Chest pain, Calf discomfort, Uncontrolled pain Cleanse incision/area with: Do not get Incision Wet Allergies/Adverse Reactions: Allergies tramadol [From Ultram] Allergy (Intermediate, Verified 07/25/18 06:35) Itching bee pollen Allergy (Verified 07/25/18 06:35) Anaphylaxis shellfish derived Allergy (Verified 07/25/18 06:35) Unknown divalproex sodium [From Depakote] Adverse Reaction (Intermediate, Verified 07/25/18 06:35) Other - nightmares quetiapine [From Seroquel] Adverse Reaction (Mild, Verified 07/25/18 06:35) Other - shaking, lightheaded and abnormal dreams meloxicam Adverse Reaction (Verified 07/25/18 06:35) Unknown oxycodone [Oxycodone] Adverse Reaction (Verified 07/25/18 06:35) Rash bee sting Allergy (Severe, Uncoded 07/25/18 06:35) Anaphylaxis STEROIDS Allergy (Intermediate, Uncoded 07/25/18 06:35) Hives AND swelling Medications to take at Discharge Estradiol [Estrace] 1 mg PO DAILY 09/09/13 Hydrochlorothiazide 12.5 mg PO DAILY 09/09/13 Lisinopril [Zestril] 20 mg PO BID 09/09/13 Duloxetine Hcl [Cymbalta] 30 mg PO BID 06/17/16 Epinephrine [Epi Pen] 0.3 mg IM X1 06/17/16 Omeprazole [Prilosec] 40 mg PO DAILY 06/17/16 Potassium Chloride [K-Dur] 20 meq PO BID 06/17/16 ipratropium-albuterol 0.5 mg-3 mg(2.5 mg base)/3 mL nebulization soln 3 ml INHALATION Q6H PRN ml 08/13/17 ipratropium bromide 0.03 % nasal spray 2 spray INTRANASAL BID-TID PRN #30 ml 02/20/18 fluticasone 44 mcg/actuation HFA aerosol inhaler 2 inh INHALATION BID 05/15/18 dextromethorphan-guaifenesin 20 mg-400 mg tablet 1 tab PO Q4H PRN #30 tab 05/22/18 Albuterol Aerosols [Ventolin Aerosols] 2.5 mg INHALATION TID 07/18/18 Albuterol IH (ProAir) [Proair Hfa] 2 puff INHALATION TID 07/18/18 Amlodipine [Norvasc] 10 mg PO DAILY 07/18/18 Cetirizine HCl [Zyrtec] 10 mg PO DAILY 07/18/18 Hydroxychloroquine [Plaquenil] 200 mg PO BIDCM 07/18/18 Multivitamin [Multiple Vitamins] 1 each PO DAILY 07/18/18 Cephalexin [Keflex] 500 mg PO Q12 3 Days #6 cap 07/25/18 Oxycodone HCl/Acetaminophen [Percocet 5/325] 1 - 2 tab PO Q6H PRN PRN 7 Days #30 tab 07/25/18 The following prescriptions were given: Oxycodone HCl/Acetaminophen [Percocet 5/325] 1 - 2 tab PO Q6H PRN PRN 7 Days #30 tab PRN Reason: Pain Cephalexin [Keflex] 500 mg PO Q12 3 Days #6 cap Primary Care Physician: Bay Ramos DO [Primary Care Provider] - Test Results: Test results from this visit will be discussed in further detail at your follow-up appointment, if applicable. Please Follow Up With: Darya Abreu MD When: 1 week, call for appt Proposed Discharge Date: 07/25/18 07/25/18 0943 <Electronically signed by Darya Abreu MD> Date Darya Abreu MD CC: Bay Ramos DO SCREENING MAMM (CAD), Observed: 07/03/2018 Status: F Source: CLARION BILAT 10:37 AM [facility] REPOSITORY [facility] Imaging Services [address] [place] [address] SCREENING MAMM (CAD), BILAT MR#: [id number] Acct: [id number] Name: WINTER JOY Rep #: [id number] : 1955 F 63 From: Tahir Boone MD PCP: Bay Ramos DO Status: REG CLI Study: SCREENING MAMM (CAD), BILAT Date of Exam: 07/03/18 Exam# [id number] Ordering Dr: Wesley Thomas MD MAMMOGRAPHY - BILATERAL SCREENING REASON FOR EXAM: Female, 63 years old. Routine annual screening examination. PERTINENT HISTORY: Non-contributory. TECHNIQUE: Digital bilateral breast pepe (3D mammographic acquisition) in the CC and MLO projections. 2-D mediolateral oblique (MLO) and craniocaudad (CC) views of both breasts were obtained. CAD: Full Field Digital Mammography with Computer Added Detection was performed. COMPARISON: Comparison is made with prior study dated June 20, 2017 and June 18, 2016. FINDINGS: Breast Composition: The breasts are almost entirely fatty. There are no dominant masses or suspicious calcifications. No other significant abnormalities are identified. There has been no significant change since the prior study. BI/SCREENING MAMM (CAD), BILAT IMPRESSION: Stable bilateral screening mammogram. Yearly follow-up mammogram recommended. (A) ASSESSMENT CATEGORY: BIRADS Category 1: Negative. A letter regarding these results will be sent to the patient by the facility within 30 days. Approximately 10% of breast cancers are not detected by mammography. A normal mammogram should not delay biopsy of a clinically suspicious abnormality. [id number] Electronically Signed: Tahir Boone MD at 13:32 EST Tel [phone], Service support , CC: Wesley Thomas MD; Bay Ramos DO Photograph Inspector: Signed COMPREHENSIVE METABOLIC Collected: 06/05/2018 Status: F Source: JANAY BERMEO 10:22 AM [facility] REPOSITORY TYPE CODE TESTS RESULT OUT OF RANGE REFERENCE UNITS LAB L501.0100 74-106 mg/dL Normal GLU 84 Result Comment: Please note revised GLUCOSE reference range effective 2017. LAB L501.1000 7-18 mg/dL Normal BUN 14 LAB L501.1100 0.55-1.02 mg/dL Normal CREAT,SERUM 0.75 Result Comment: The validity of the calculated GFR AND GFRAA in patients over 70 years has not been determined. Clinical correlation is essential. LAB L501.1110 >60 mL/min Normal EST GFR 83 Result Comment: Non- GFR Calc LAB L501.1115 >60 mL/min Normal EST GFR - AA 101 Result Comment: GFR Calc LAB L501.1300 10-20 RATIO Normal BUN/CRE 18.6 LAB L501.1500 6.4-8.2 g/dL T Normal PROT 7.9 LAB L501.1800 3.2-5.0 g/dL Normal ALB 3.7 LAB L501.1950 2.2-4.2 g/dL Normal GLOB 4.2 LAB L501.2000 0.9-2.4 RATIO Normal A/G 0.9 LAB L501.2200 8.5-10.1 mg/dL CA Normal 9.0 LAB L501.4100 15-37 U/L Normal AST 19 LAB L501.4305 45-117 U/L Normal ALK P 84 LAB L501.4405 13-56 U/L Normal ALT 22 LAB L501.4600 0.20-1.00 mg/dL Low T BILI 0.10 LAB L501.5300 136-145 mmol/L Low NA 130 LAB L501.5600 3.5-5.1 mmol/L K Normal 4.1 LAB L501.5900 98-107 mmol/L Low CL 96 LAB L501.6100 21.0-32.0 mmol/L Normal CO2 26.0 LAB L501.6200 5-15 Normal GAP 8 Performed By: #### L500.4050, L500.4100 #### [facility] [address] [place], [address] LIPID PROFILE Collected: 06/05/2018 Status: F Source: CLARION 10:22 AM [facility] REPOSITORY TYPE CODE TESTS RESULT OUT OF RANGE REFERENCE UNITS LAB L501.4900 200 mg/dL High CHOL 210 Result Comment: <200 mg/dL Desirable 200-240 mg/dL Borderline >240 mg/dL High Risk LAB L501.5000 mg/dL Normal TRIG 92 Result Comment: The drugs N-Acetylcysteine and Metamizole may falsely depress this assay. Serum Triglycerides Reference Interval Normal <150 mg/dL Borderline high 150 - 199 mg/dL High 200 - 499 mg/dL Very High > or = 500 mg/dL LAB L501.6400 mg/dL Normal HDL 84 Result Comment: The drugs N-Acetylcysteine and Metamizole may falsely depress this assay. Reference Range HDL <40 mg/dL Low HDL Cholesterol HDL >or= 60 mg/dL High HDL Cholesterol LAB L501.6500 0-130 mg/dL Normal LDL 108 LAB L501.6600 5-40 mg/dL Normal VLDL 18 Performed By: #### L500.4050, L500.4100 #### [facility] [address] [place], [address] EMERGENCY DEPARTMENT Observed: 05/21/2018 Status: F Source: CLARION SUMMARY 12:42 AM [facility] REPOSITORY [facility] Medical Records Department [address] [place] [address] Emergency Department Summary 05/20/18 1842 MR#: [id number] Acct: [id number] Name: WINTER JOY Rep #: [id number] : 1955 63 From: Vincenzo Martinez DO PCP: Bay Ramos DO Status: DEP ER - ER Visit Summary Date of Service: 05/20/18 Chief Complaint: Head injury History of Present Illness: The patient is a 63 F who states that she was out in the yard doing yard work when she tripped in a hole and fell striking her head. No loss of consciousness. She notes some light sensitivity. She is not on any blood thinners. She notes a hematoma to her right parietal scalp. Physical Examination: Afebrile vital signs stable Gen: Well-nourished well-developed Head: Normocephalic right parietal scalp hematoma Eyes: Perrl EOMI ENT: TMs clear no rhinorrhea moist mucous membranes Neck: Supple no lymphadenopathy no JVD nontender CVS: Regular rate rhythm no murmurs normal S1-S2 Respiratory: No distress clear to auscultation bilaterally chest nontender Abdomen: Soft nontender nondistended normal bowel sounds no masses Back: Nontender Extremity: Nontender no edema Skin: Normal color no rash Neuro: alert orientated 3 CN II-XII intact normal strength sensation reflexes gait cerebellar Psych: Normal affect normal mood Test Results: Given the location of her hematoma and out of concern for epidural hematoma or skull fracture CT was obtained which was negative Emergency Department Course and Treatment: Patient will be discharged home to follow-up with her doctor. Tylenol for pain. Impression: 1. Scalp hematoma This note was generated with Entrisphere dictation software. It may contain incorrect words, spelling, and punctuation that were not noted in review of the chart prior to signing ED Disposition - Plan for ED Patient: Disposition: Home or Assisted Living Chief Complaint: Head Injury Instructions: ED Contusion Scalp Referrals: Bay Ramos DO [Primary Care Provider] - 1 Week if not improving What to do if you have Problems For any increased pain, shortness of breath, bleeding, nausea or vomiting, chest pain, or any unexpected problems, contact your Primary Care Provider. Call [facility] ([phone]) or report to the closest Emergency Room. Call 911 if necessary. 05/21/18 0042 <Electronically signed by Vincenzo Martinez DO> Date Vincenzo Martinez DO Cosigner Signature (If Indicated): Date CC: Bay Ramos DO BRAIN/HEAD WITHOUT Observed: 05/20/2018 Status: F Source: JANAY CONTRAST 5:08 PM [facility] REPOSITORY [facility] Imaging Services [address] [place] [address] Brain/Head without Contrast MR#: [id number] Acct: [id number] Name: WINTER JOY Rep #: [id number] : 1955 F 63 From: Trevon Chawla DO PCP: Bay Ramos DO Status: REG ER Study: Brain/Head without Contrast Date of Exam: 05/20/18 Exam# [id number] Ordering Dr: Vincenzo Martinez DO STUDY: CT BRAIN WITHOUT CONTRAST REASON FOR EXAM: Female, 63 years old. Fall RADIATION DOSAGE (If Supplied By Facility): CTDIvol = ( 44.99 ) mGy, DLP = ( 745.49 ) mGycm TECHNIQUE: Transaxial CT imaging of the brain was performed without administration of intravenous contrast material. Individualized dose optimization techniques were used for this CT. COMPARISON: None. FINDINGS: Mild right lateral scalp swelling/hematoma. Normal calvarium. Normal size ventricles and extra-axial spaces for the patient's age. Mild white matter microangiopathic ischemic changes of the cerebral hemispheres. Normal basal ganglia and thalami. Normal brainstem. Normal cerebellum. There is no intracranial hemorrhage. There are no findings of an acute ischemic infarction. Normal visualized paranasal sinuses. CT/Brain/Head without Contrast IMPRESSION: No acute intracranial pathology of the brain. Mild age-related changes. Right lateral scalp swelling/hematoma. Electronically Signed: Trevon Chawla DO at 18:19 EDT Tel [phone], Service support , CC: Vincenzo Martinez DO; Bay Ramos DO Photograph Inspector: Signed PULMONARY VISIT REPORT Observed: 05/15/2018 Status: F Source: CLARION 4:00 PM [facility] REPOSITORY [facility] [address] [place] [address] OFFICE VISIT Date of Service: 05/15/18 MR#: [id number] Acct: [id number] Name: WINTER OJY Rep #: [id number] : 1955 Provider: Angélica Marcelino Age/Sex: 63/F Location: [facility] Status: Signed Assessment AND Plan Plan Stop flovent. Try mucinex dm. Keep routine follow up. Use rescue inhaler only as needed. Make attempt to use it only once a day. Medications New: HPI Acute: Chief Complaint: cough HPI Comments Details: Patient here today to discuss cough that she developed over one month ago. She states that the cough is dry, harsh, and progresses throughout the day in frequency and in strength. She denies any sputum production. Patient stated that last night, while attempting to sleep using 4 pillow, she had the sense of choking during one of the coughing episodes. Denies fever, chills, nasal discharge. Denies recent trips outside of [place]. She is using her flovent inhaler twice daily and her albuterol nebulizers at least 4 times a day. She denies any medications side effects such as sore throat or thrush. Also using cetirizine and ipratropium bromide. Denies gastric reflux while on omeprazole. Admits to weight gain of 7 pounds last 4 weeks. Intake Vital Signs05/15/18 Height 5 ft 3 in 05/15/18 Weight: 209 lb Intake Visit Reasons: Acute Accompanied by: Self Allergies acetaminophen [From Percocet] Allergy (Intermediate, Verified 05/15/18 14:10) Hives AND itching divalproex sodium [From Depakote] Allergy (Intermediate, Verified 05/15/18 14:10) Other - nightmares quetiapine [From Seroquel] Allergy (Mild, Verified 05/15/18 14:10) Other - shaking, lightheaded and abnormal dreams bee pollen Allergy (Verified 05/15/18 14:10) Anaphylaxis shellfish derived Allergy (Verified 05/15/18 14:10) Unknown tramadol [From Ultram] Adverse Reaction (Intermediate, Verified 05/15/18 14:10) Itching meloxicam Adverse Reaction (Verified 05/15/18 14:10) Unknown oxycodone [Oxycodone] Adverse Reaction (Verified 05/15/18 14:10) Rash bee sting Allergy (Severe, Uncoded 05/15/18 14:10) Anaphylaxis STEROIDS Allergy (Intermediate, Uncoded 05/15/18 14:10) Hives AND swelling Medications Estradiol [Estrace] 2 mg PO DAILY 09/09/13 [History Confirmed 05/15/18] Hydrochlorothiazide 12.5 mg PO DAILY 09/09/13 [History Confirmed 05/15/18] Lisinopril [Zestril] 5 mg PO DAILY 09/09/13 [History Confirmed 05/15/18] Duloxetine Hcl [Cymbalta] 30 mg PO BID 06/17/16 [History Confirmed 05/15/18] Epinephrine [Epi Pen] 0.3 mg IM X1 06/17/16 [History Confirmed 05/15/18] Hydrocodone Bitart/Apap 5-325 [[place] 5MG-325MG] 1 tab PO BID 06/17/16 [History Confirmed 05/15/18] Omeprazole [Prilosec] 40 mg PO DAILY 06/17/16 [History Confirmed 05/15/18] Potassium Chloride [K-Dur] 20 meq PO BID 06/17/16 [History Confirmed 05/15/18] fentanyl 25 mcg/hr transdermal patch 1 patch TRANSDERMAL Q72H 08/13/17 [History Confirmed 05/15/18] ipratropium-albuterol 0.5 mg-3 mg(2.5 mg base)/3 mL nebulization soln 3 ml INHALATION Q6H PRN ml 08/13/17 [History Confirmed 05/15/18] prazosin 1 mg capsule See Label Instructions PO QHS PRN cap 08/13/17 [History Confirmed 05/15/18] albuterol sulfate 2.5 mg/3 mL (0.083 %) solution for nebulization 2.5 mg INHALATION BID PRN #180 ml 08/18/17 [Rx Confirmed 05/15/18] cetirizine 10 mg tablet 10 mg PO QDAY #30 tab 12/22/17 [Rx Confirmed 05/15/18] albuterol sulfate HFA 90 mcg/actuation aerosol inhaler 2 puff INHALATION Q4H PRN PRN #8.5 g 02/20/18 [Rx Confirmed 05/15/18] ipratropium bromide 0.03 % nasal spray 2 spray INTRANASAL BID-TID PRN #30 ml 02/20/18 [Rx Confirmed 05/15/18] dextromethorphan-guaifenesin 20 mg-400 mg tablet 1 tab PO Q4H PRN #30 tab 05/15/18 [Rx Confirmed 05/15/18] fluticasone 44 mcg/actuation HFA aerosol inhaler 2 inh INHALATION BID 05/15/18 [History Confirmed 05/15/18] [facility] Medical History Encounter for screening for malignant neoplasm of colon (Acute) Epigastric abdominal pain (Acute) Back sprain (Acute) Chest pain (Acute) Lightheadedness (Acute) Loss of appetite (Acute) Otitis media (Acute) Right flank pain (Acute) Sinusitis (Acute) Anxiety (Chronic) Asthma (Chronic) Bipolar disorder (Chronic) Depression (Chronic) Eustachian tube dysfunction (Chronic) GERD (gastroesophageal reflux disease) (Chronic) Hepatitis (Chronic) Herpes simplex with unspecified complication (Chronic) Hyperlipidemia (Chronic) Hypertension (Chronic) Long-term use of high-risk medication (Chronic) Mild dilation of ascending aorta (Chronic) Mild mitral regurgitation (Chronic) Nephrolithiasis (Chronic) Nightmares (Chronic) OCD (obsessive compulsive disorder) (Chronic) TROY (obstructive sleep apnea) (Chronic) Obesity (Chronic) Paroxysmal atrial tachycardia (Chronic) Rhinorrhea (Chronic) Segmental and somatic dysfunction of cervical region (Chronic) Segmental and somatic dysfunction of thoracic region (Chronic) Spinal stenosis of lumbar region (Chronic) Thoracic aortic aneurysm without rupture (Chronic) Surgical History H/O eye surgery (Resolved) H/O hand surgery (Resolved) H/O: hysterectomy (Resolved) History of appendectomy (Resolved) History of bilateral carpal tunnel release (Resolved) History of total right knee replacement (Resolved) Hx laparoscopic cholecystectomy (Resolved) bladder sling removal (Resolved) Family History Father Cancer Mother Heart disease H/O weight disorder Sister Hypertension Social History Smoking Status: Former smoker quit date: 08/29/82 pack-years: 15 second hand exposure: No alcohol intake: never substance use type: does not use Review of Systems Const CONSTITUTIONAL: Positive anorexia, body ache, chills, sleeping in chair, fatigue and headache(s); negative daytime sleepiness, fever(s), night sweats, oral thrush, stops breathing during sleep, weight loss, weight loss, weight gain, frequent colds, seasonal allergies, other or orthopnea EETM Ear Nose Throat Mouth: Positive hearing normal, dry mouth in morning, swallowing Difficulty, headache(s), sinus pain and sinus pressure; negative hard of hearing, hoarseness, change in vision, itchy eyes, eye pain, ear pain, nose bleed, mouth pain, nasal congestion, nasal discharge, post nasal drip, sore throat or other Cardio Cardiovascular: Negative chest pain, chest pain at rest, chest pain with activity, irregular heart rhythm, edema, shortness of breath when lying down, palpitations, murmur or other Resp Respiratory: Positive as per HPI, shortness of breath shortness of breath: Positive with activity, chest tightness, pain on inspiration and increase use of rescue inhalers; negative pain with cough, wheezing, chest congestion, inhalers, snoring, apnea or other Gastro Gastrointestional: Negative bloody stools, change in appetite, difficulty swallowing, reflux, hematemesis, melena stool, loose stool, constipation or other Genitourinary: Positive nocturia; negative blood in urine, pain with urination or other Musc Musculoskeletal: Positive back pain and neck pain; negative body pain or other Skin/Breast Skin/Breast: Positive dry skin; negative itching, rash, unusual bruising, breast lump or other Neuro Neurological: Negative restless legs, confusion, weakness or other Psych Psychocological: Positive abnormal sleep pattern, anxiety and hopelessness; negative thoughts of hurting self/others or other Lymph Lymphatic: Negative easy bleeding, easy bruising, swollen lymph nodes or other Exam Const Constitutional: Positive conversant and cooperative Head Head: Positive normocephalic and atraumatic Eyes Eye: Positive clear conjunctiva Ears Ear: Positive hearing normal and external ears normal; negative hard of hearing Nose Nose: Positive external nose normal and no nasal discharge; negative epistaxis Mouth Mouth: Positive oral mucosae normal and no lesions; negative post nasal drip Neck Neck: Positive normal visual inspection and trachea midline Chest Wall Chest: Positive normal inspection of the chest and symmetric chest movement Resp lung sounds: Positive clear to auscultation and good air exchange Cardio Cardiac: Positive regular rate and regular rhythm; negative murmur GI GI: Positive normal to inspection and normal bowel sounds Genitourinary: Positive deferred Musc Musculoskeletal: Positive steady gait and ROM normal Skin Pulmonary Skin Exam: Positive intact; negative rash Pulses Pulse: Yes pulses normal x4 extremities Extremities Extremities: Yes capillary refill normal, No edema, No clubbing Neuro Neurologic: Yes conversant, No normal concentration (lacks concentration, multiple ideas, dificult to keep on task) Lymph Lymphatic: No lymphadenopathy Psych Appearance: Positive grossly normal and eye contact Mental Status: Positive mental status grossly normal Mood: Positive manic mood Affect: Positive normal affect Coding Level of Care Code Off vis,est,level 3 05/15/18 1600 <Electronically signed by Angélica CARMONA> Date Angélica CARMONA Cosigner Signature: Date (if applicable) CC: Bay Ramos DO PROGRESS Observed: 05/12/2018 Status: COMPLETED Source: [place] 11:12 [facility] RE[facility] HNO ID: [id number] Author: Génesis Hines Service: (none) Author Type: Physician Type: Progress Notes Filed: 05/12/2018 11:35 AM Note Text: [facility]HEUMATOLOGY CLINIC May 12, 2018 Follow-up: Sjogren's syndrome +FLAKITA (1:1280 and +SSA), +RF - dry mouth, fatigue, polyarthralgia Last visit: November 04, 2017 CHIEF COMPLAINT: Dryness of her mouth doesn't bother her too much. She is able to eat anything she wants. She doesn't feel that she has dryness of her eyes. She continues to have persistent cough but does see a milling/polishing operator regularly for PFT's and an underlying diagnosis of asthma. Today she is complaining of flank pain on the right side which she says has been going on for at least a year. Started out as an annoying pain but has worsened over the last 6 months. Her GB has been removed. She thinks that stress and overdoing it aggravate the pain. She takes lance back and body which does help, but aggravates her stomach. She has been following with pain management. Dryness of mouth is not bothering her. Primarily she is complaining of exhaustion. No unintentional weight loss, no fevers, chills, night sweats. November 04, 2017 - she remains exhausted all the time. She does have chills but denies fevers. No weight loss. Legs are constantly falling asleep. She has been diagnosed with TROY years ago but she admits to refusing to use the PCP. She has some mild dryness of her mouth which doesn't bother her. She has full set of dentures. May 12, 2018 - hydroxychloroquine was started in November 2017. She feels like it has helped with her exhaustion and pain. However she is concerned that is it thinning her blood (?) and she has some new erythema and swelling of her legs that comes and goes that she is concerned may be due to hydroxychloroquine. (I don't see this today on exam). She denies SOB. She denies unintentional weight loss or fevers and chills. RHEUMATOLOGIC REVIEW OF SYSTEMS: no ulcers in mouth or nose no photosensenitivity no history of blood clots 2 miscarriages (3 healthy pregnancies) + fatigue ? history of Raynaud's no fevers no bright red painful eyes + sicca - xerostomia only no sob + cough no diarrhea, no constipation + chronic back pain no history of psoriasis no morning stiffness + weight loss + neuropathy PAST MEDICAL HISTORY: PAST MEDICAL HISTORY Diagnosis Date - Adjustment disorder with depressed mood - Bipolar disorder, unspecified (HCC) - Depression seeing counselor - Elevated LFTs - Esophageal reflux - Essential hypertension, benign - Hypertensive heart and kidney disease, benign - Pap smear for cervical cancer screening Dr. Thomas - PTSD (post-traumatic stress disorder) seeing counselor - Unspecified asthma(493.90) Asthma Unspecified SOCIAL HISTORY: Social History Substance Use Topics - Smoking status: Former Smoker Packs/day: 4.00 Years: 15.00 Types: Cigarettes Quit date: 03/29/1983 - Smokeless tobacco: Never Used - Alcohol use No doesn't smoke or drink EtOH She is on disability since 1993 MEDICATIONS: hydroxychloroquine (PLAQUENIL) 200 mg tablet Take 1 tablet by mouth twice daily. Ipratropium Ell[place] (ATROVENT) 0.03 % nasal spray amLODIPine (NORVASC) 10 mg tablet Take 10 mg by mouth once daily. ALL DAY ALLERGY 10 mg tablet hydroCHLOROthiazide (HYDRODIURIL, ESIDRIX) 12.5 mg tablet Take 25 mg by mouth once daily. omeprazole (PRILOSEC) 20 mg capsule Take 20 mg by mouth once daily. lisinopril (ZESTRIL, PRINIVIL) 10 mg tablet Take 10 mg by mouth once daily. potassium chloride ER (K-DUR, KLOR-CON) 20 mEq tablet Take 20 mEq by mouth twice daily. EPINEPHrine (EPIPEN) 0.3 mg/0.3 mL (1:1,000) atIn Inject 0.3 mg intramuscularly as needed. for bee stings. estradiol (ESTRACE) 2 mg tablet Take 2 mg by mouth once daily. albuterol HFA (PROAIR HFA) 90 mcg/actuation inhaler Inhale 2 Puffs as instructed as needed for Wheezing/Shortness of Breath. BUTRANS 5 mcg/hour triamcinolone acetonide (KENALOG) 0.1 % cream Apply 1 application to affected area twice daily. ketoconazole (NIZORAL) 2 % cream Apply 1 application to affected area once daily. benzonatate (TESSALON PERLE) 100 mg capsule Take 100 mg by mouth three times daily as needed. ketoconazole (NIZORAL) 2 % cream Apply 1 application to affected area once daily. cyclobenzaprine (FLEXERIL) 5 mg tablet diclofenac sodium (VOLTAREN) 1 % topical gel Trospium (SANCTURA SR) 60 mg cp24 Take 1 capsule by mouth once daily. Take in the morning with a full glass of water. flurazepam HCl (DALMANE) 15 mg capsule Take 15 mg by mouth at bedtime as needed. HYDROcodone-acetaminophen (NORCO) 5-325 mg per tablet Take 1 tablet by mouth every 8 hours as needed. DULoxetine (CYMBALTA) 30 mg capsule Take 30 mg by mouth twice daily. PHYSICAL EXAM: BP 123/84 (BP Site: Left Arm, BP Position: Sitting, BP Cuff Size: Large Adult) Pulse 76 Temp 36.6 ?C (97.8 ?F) (Oral) Alert well-appearing, in no distress No conjunctivitis or scleritis Oral mucosa appears dry, there is decreased salivary pooling No cervical lymphadenopathy, no parotid enlargement Lungs are clear bilaterally nml s1, s2 no audible murmurs abd is soft and non-distended, audible bowel sounds No peripheral edema Strength exam is normal MSK: no synovitis Labs/Imaging: Component Latest Ref Rng 04/21/2016 Protein, Total 6.0 - 8.4 g/dL 7.8 Albumin 3.5 - 5.0 g/dL 4.1 Calcium 8.5 - 10.5 mg/dL 9.1 Bilirubin, Total 0.0 - 1.5 mg/dL 0.3 Alkaline Phosphatase 40 - 150 U/L 93 AST 7 - 40 U/L 23 Glucose 65 - 100 mg/dL 83 BUN 8 - 25 mg/dL 16 Creatinine 0.70 - 1.40 mg/dL 0.80 Sodium 132 - 148 mmol/L 131 (L) Potassium 3.5 - 5.0 mmol/L 3.9 Chloride 98 - 110 mmol/L 93 (L) CO2 23 - 32 mmol/L 24 Anion Gap 0 - 15 mmol/L 14 ALT 0 - 45 U/L 9 eGFR- >60 eGFR-All Other Races >60 Sm Antibody <1.0 AI <0.2 SQE Antibody <1.0 AI <0.2 SSA Antibody <1.0 AI >8.0 (H) SSB Antibody <1.0 AI <0.2 Centromere Ab <1.0 AI <0.2 Scleroderma Ab, IgG <1.0 AI <0.2 Natalya 1 Antibody <1.0 AI <0.2 Ribosomal SQE <1.0 AI <0.2 Chromatin Antibody <1.0 AI <0.2 FLAKITA Negative Positive (A) FLAKITA Titer Negative Greater than 1:1280 (A) FLAKITA Pattern Speckled DNA Antibody w/Confirmation <30 IU/mL <12 Outside labs reviewed from 02/10/17 C3 156 C4 33 SPEP: No monoclonal protein is detected RF 68 IMPRESSION / VISIT DIAGNOSES: 1. Sjogren's syndrome, with unspecified organ involvement (HCC) - ICD9: 710.2, ICD10: M35.00 (primary diagnosis) Comment: +FLAKITA, +SSA, +RF and xerostomia - cont hydroxychloroquine 400 mg daily. I do think this is beneficial for fatigue and polyarthralgia - CBC - COMP METABOLIC PANEL - PROTEIN ELECTROPHORESIS W/INTERP - MONOCLONAL PROT BLD W/INTERP - RHEUMATOID FACTOR BL - C3 COMPLEMENT BLD - C4 COMPLEMENT BLD 3. Dry mouth - ICD9: 527.7, ICD10: R68.2 - discussed conservative management of mouth dryness including biotin toothpaste, frequent sips of water, OTC saliva producting supplements - consider pilocarpine in the future, although given her medication sensitivities I don't know if she'd tolerate it 2. Long-term use of Plaquenil - ICD9: V58.69, ICD10: Z79.899 I've given her the option of whether shed like to remain on hydroxychloroquine or not. We will wait to get a baseline eye exam to screen for toxicity until she determines if she will stay on it care home or not Génesis Hines MD FOLLOW-UP: 6 months Génesis Hines MD Rheumatology Staff Pager [phone] CNOV Observed: 05/12/2018 Status: COMPLETED Source: [place] 11:10 AM [facility] REPOSITORY Office Visit (CASSIE) WINTER JOY ([id number]) 1955 F Date Time Provider Department 05/12/18 11:10 AM GÉNESIS HINES During your visit today, we recorded the following information about you: Temperature Pulse Blood pressure 97.8 degrees 76/minute 123/84 Génesis Hines MD 05/12/2018 11:35 AM Signed RHEUMATOLOGY CLINIC May 12, 2018 Follow-up: Sjogren's syndrome +FLAKITA (1:1280 and +SSA), +RF - dry mouth, fatigue, polyarthralgia Last visit: November 04, 2017 CHIEF COMPLAINT: Dryness of her mouth doesn't bother her too much. She is able to eat anything she wants. She doesn't feel that she has dryness of her eyes. She continues to have persistent cough but does see a milling/polishing operator regularly for PFT's and an underlying diagnosis of asthma. Today she is complaining of flank pain on the right side which she says has been going on for at least a year. Started out as an annoying pain but has worsened over the last 6 months. Her GB has been removed. She thinks that stress and overdoing it aggravate the pain. She takes lance back and body which does help, but aggravates her stomach. She has been following with pain management. Dryness of mouth is not bothering her. Primarily she is complaining of exhaustion. No unintentional weight loss, no fevers, chills, night sweats. November 04, 2017 - she remains exhausted all the time. She does have chills but denies fevers. No weight loss. Legs are constantly falling asleep. She has been diagnosed with TROY years ago but she admits to refusing to use the PCP. She has some mild dryness of her mouth which doesn't bother her. She has full set of dentures. May 12, 2018 - hydroxychloroquine was started in November 2017. She feels like it has helped with her exhaustion and pain. However she is concerned that is it thinning her blood (?) and she has some new erythema and swelling of her legs that comes and goes that she is concerned may be due to hydroxychloroquine. (I don't see this today on exam). She denies SOB. She denies unintentional weight loss or fevers and chills. RHEUMATOLOGIC REVIEW OF SYSTEMS: no ulcers in mouth or nose no photosensenitivity no history of blood clots 2 miscarriages (3 healthy pregnancies) + fatigue ? history of Raynaud's no fevers no bright red painful eyes + sicca - xerostomia only no sob + cough no diarrhea, no constipation + chronic back pain no history of psoriasis no morning stiffness + weight loss + neuropathy PAST MEDICAL HISTORY: PAST MEDICAL HISTORY Diagnosis Date - Adjustment disorder with depressed mood - Bipolar disorder, unspecified (HCC) - Depression seeing counselor - Elevated LFTs - Esophageal reflux - Essential hypertension, benign - Hypertensive heart and kidney disease, benign - Pap smear for cervical cancer screening Dr. Thomas - PTSD (post-traumatic stress disorder) seeing counselor - Unspecified asthma(493.90) Asthma Unspecified SOCIAL HISTORY: Social History Substance Use Topics - Smoking status: Former Smoker Packs/day: 4.00 Years: 15.00 Types: Cigarettes Quit date: 03/29/1983 - Smokeless tobacco: Never Used - Alcohol use No doesn't smoke or drink EtOH She is on disability since 1993 MEDICATIONS: hydroxychloroquine (PLAQUENIL) 200 mg tablet Take 1 tablet by mouth twice daily. Ipratropium Ellsworth (ATROVENT) 0.03 % nasal spray amLODIPine (NORVASC) 10 mg tablet Take 10 mg by mouth once daily. ALL DAY ALLERGY 10 mg tablet hydroCHLOROthiazide (HYDRODIURIL, ESIDRIX) 12.5 mg tablet Take 25 mg by mouth once daily. omeprazole (PRILOSEC) 20 mg capsule Take 20 mg by mouth once daily. lisinopril (ZESTRIL, PRINIVIL) 10 mg tablet Take 10 mg by mouth once daily. potassium chloride ER (K-DUR, KLOR-CON) 20 mEq tablet Take 20 mEq by mouth twice daily. EPINEPHrine (EPIPEN) 0.3 mg/0.3 mL (1:1,000) atIn Inject 0.3 mg intramuscularly as needed. for bee stings. estradiol (ESTRACE) 2 mg tablet Take 2 mg by mouth once daily. albuterol HFA (PROAIR HFA) 90 mcg/actuation inhaler Inhale 2 Puffs as instructed as needed for Wheezing/Shortness of Breath. BUTRANS 5 mcg/hour triamcinolone acetonide (KENALOG) 0.1 % cream Apply 1 application to affected area twice daily. ketoconazole (NIZORAL) 2 % cream Apply 1 application to affected area once daily. benzonatate (TESSALON PERLE) 100 mg capsule Take 100 mg by mouth three times daily as needed. ketoconazole (NIZORAL) 2 % cream Apply 1 application to affected area once daily. cyclobenzaprine (FLEXERIL) 5 mg tablet diclofenac sodium (VOLTAREN) 1 % topical gel Trospium (SANCTURA SR) 60 mg cp24 Take 1 capsule by mouth once daily. Take in the morning with a full glass of water. flurazepam HCl (DALMANE) 15 mg capsule Take 15 mg by mouth at bedtime as needed. HYDROcodone-acetaminophen (NORCO) 5-325 mg per tablet Take 1 tablet by mouth every 8 hours as needed. DULoxetine (CYMBALTA) 30 mg capsule Take 30 mg by mouth twice daily. PHYSICAL EXAM: BP 123/84 (BP Site: Left Arm, BP Position: Sitting, BP Cuff Size: Large Adult) Pulse 76 Temp 36.6 ?C (97.8 ?F) (Oral) Alert well-appearing, in no distress No conjunctivitis or scleritis Oral mucosa appears dry, there is decreased salivary pooling No cervical lymphadenopathy, no parotid enlargement Lungs are clear bilaterally nml s1, s2 no audible murmurs abd is soft and non-distended, audible bowel sounds No peripheral edema Strength exam is normal MSK: no synovitis Labs/Imaging: Component Latest Ref Rng 04/21/2016 Protein, Total 6.0 - 8.4 g/dL 7.8 Albumin 3.5 - 5.0 g/dL 4.1 Calcium 8.5 - 10.5 mg/dL 9.1 Bilirubin, Total 0.0 - 1.5 mg/dL 0.3 Alkaline Phosphatase 40 - 150 U/L 93 AST 7 - 40 U/L 23 Glucose 65 - 100 mg/dL 83 BUN 8 - 25 mg/dL 16 Creatinine 0.70 - 1.40 mg/dL 0.80 Sodium 132 - 148 mmol/L 131 (L) Potassium 3.5 - 5.0 mmol/L 3.9 Chloride 98 - 110 mmol/L 93 (L) CO2 23 - 32 mmol/L 24 Anion Gap 0 - 15 mmol/L 14 ALT 0 - 45 U/L 9 eGFR- >60 eGFR-All Other Races >60 Sm Antibody <1.0 AI <0.2 SQE Antibody <1.0 AI <0.2 SSA Antibody <1.0 AI >8.0 (H) SSB Antibody <1.0 AI <0.2 Centromere Ab <1.0 AI <0.2 Scleroderma Ab, IgG <1.0 AI <0.2 Natalya 1 Antibody <1.0 AI <0.2 Ribosomal SQE <1.0 AI <0.2 Chromatin Antibody <1.0 AI <0.2 FLAKITA Negative Positive (A) FLAKITA Titer Negative Greater than 1:1280 (A) FLAKITA Pattern Speckled DNA Antibody w/Confirmation <30 IU/mL <12 Outside labs reviewed from 02/10/17 C3 156 C4 33 SPEP: No monoclonal protein is detected RF 68 IMPRESSION / VISIT DIAGNOSES: 1. Sjogren's syndrome, with unspecified organ involvement (HCC) - ICD9: 710.2, ICD10: M35.00 (primary diagnosis) Comment: +FLAKITA, +SSA, +RF and xerostomia - cont hydroxychloroquine 400 mg daily. I do think this is beneficial for fatigue and polyarthralgia - CBC - COMP METABOLIC PANEL - PROTEIN ELECTROPHORESIS W/INTERP - MONOCLONAL PROT BLD W/INTERP - RHEUMATOID FACTOR BL - C3 COMPLEMENT BLD - C4 COMPLEMENT BLD 3. Dry mouth - ICD9: 527.7, ICD10: R68.2 - discussed conservative management of mouth dryness including biotin toothpaste, frequent sips of water, OTC saliva producting supplements - consider pilocarpine in the future, although given her medication sensitivities I don't know if she'd tolerate it 2. Long-term use of Plaquenil - ICD9: V58.69, ICD10: Z79.899 I've given her the option of whether shed like to remain on hydroxychloroquine or not. We will wait to get a baseline eye exam to screen for toxicity until she determines if she will stay on it care home or not Génesis Hines MD FOLLOW-UP: 6 months Génesis Hines MD Rheumatology Staff Pager [phone] Génesis Hines MD 05/12/2018 11:24 AM Signed You need to have an eye exam for screening while you take plaquenil. I will place the order for an ophthalmology referral. Please schedule this today. We will plan on getting labs once every year, instead of every 6 months. Referring Provider: SELF [[id number]] Allergies As of Date: 05/12/2018 Noted Allergy Reaction ULTRAM (TRAMADOL HCL) 03/06/2014 9 - Itching Comments: Severe itching,rash BEES 05/10/2007 CORTISONE 07/07/2005 5 - Intolerance MELOXICAM 12/11/2007 9 - Itching PERCOCET (OXYCODONE-ACETAMINOPHEN)01/09/2009 9 - Itching PREDNISONE 12/11/2008 SHELLFISH 02/16/2006 TALWIN (PENTAZOCINE LACTATE) 02/16/2006 Date Reviewed: 05/12/2018 Reviewed by: Clau Garcia Ma - Fully Assessed Reason for Visit: Sjogren's Disease [2106] Primary Visit Diagnosis:Sjogren's syndrome, with unspecified organ involvement ([facility]) [M35.00] Other Visit Diagnoses:Long-term use of Plaquenil [Z79.899] Dry mouth [R68.2] Order(s):CBC [SQCBC] Order #: [id number] FUTURE COMP METABOLIC PANEL [SQCMP] Order #: [id number] FUTURE PROTEIN ELECTROPHORESIS W/INTERP [SQSEPG] Order #: [id number] FUTURE MONOCLONAL PROT BLD W/INTERP [SQMPASRM] Order #: [id number] FUTURE RHEUMATOID FACTOR BL [SQRF] Order #: [id number] FUTURE C3 COMPLEMENT BLD [[id number]] Order #: [id number] FUTURE C4 COMPLEMENT BLD [[id number]] Order #: [id number] FUTURE Prescriptions as of 05/12/2018 Sig: HYDROXYCHLOROQUINE 200 MG TAB* Take 1 tablet by mouth twice * IPRATROPIUM BROMIDE 0.03 % NA* AMLODIPINE 10 MG TABLET Take 10 mg by mouth once rakesh* ALL DAY ALLERGY (CETIRIZINE) * HYDROCHLOROTHIAZIDE 12.5 MG T* Take 25 mg by mouth once rakesh* OMEPRAZOLE 20 MG CAPSULE,DEMARCUS* Take 20 mg by mouth once rakesh* LISINOPRIL 10 MG TABLET Take 10 mg by mouth once rakesh* POTASSIUM CHLORIDE ER 20 MEQ * Take 20 mEq by mouth twice da* EPINEPHRINE 0.3 MG/0.3 ML INJ* Inject 0.3 mg intramuscularly* ESTRADIOL 2 MG TABLET Take 2 mg by mouth once daily. ALBUTEROL SULFATE HFA 90 MCG/* Inhale 2 Puffs as instructed * BUTRANS 5 MCG/HOUR TRANSDERMA* TRIAMCINOLONE ACETONIDE 0.1 %* Apply 1 application to affect* Patient not taking: Reported on 05/12/2018 KETOCONAZOLE 2 % TOPICAL CREAM Apply 1 application to affect* Patient not taking: Reported on 05/12/2018 BENZONATATE 100 MG CAPSULE Take 100 mg by mouth three ti* KETOCONAZOLE 2 % TOPICAL CREAM Apply 1 application to affect* Patient not taking: Reported on 05/12/2018 CYCLOBENZAPRINE 5 MG TABLET DICLOFENAC 1 % TOPICAL GEL TROSPIUM ER 60 MG CAPSULE,EXT* Take 1 capsule by mouth once * Patient not taking: Reported on 05/12/2018 FLURAZEPAM 15 MG CAPSULE Take 15 mg by mouth at bedtim* HYDROCODONE 5 MG-ACETAMINOPHE* Take 1 tablet by mouth every * DULOXETINE 30 MG CAPSULE,DEMARCUS* Take 30 mg by mouth twice johnathan* Problem List As Of Date 05/12/2018 Noted Resolved ROBY HYPERT HRT/RENAL DIS [404.1] OLD FB IN SOFT TISSUE [M79.5] INVALID FOR* ONYCHIA OF TOE [L03.039] INVALID FOR* CALCANEAL SPUR [M77.30] INVALID FOR* ACHILLES TENDINITIS [M76.60] INVALID FOR* BENIGN HYPERTENSION [I10] BIPOLAR DISORDER NOS [F31.9] ESOPHAGEAL REFLUX [K21.9] 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 CAVUS DEFORMITY OF FOOT [M21.6X9] INVALID FOR* OTHER HAMMER TOE [M20.40] INVALID FOR* PAIN IN LIMB [M79.609] INVALID FOR* Unspecified Cellulitis and Abscess of Toe [L03.*INVALID FOR* Unspecified Asthma [J45.909] More... Hematoma [T14.8XXA] INVALID FOR* Exostosis of Unspecified Site [M89.8X9] INVALID FOR* Sprain and strain of unspecified site of foot [*INVALID FOR* Allergic reaction to bee sting [T63.441A] INVALID FOR* Porokeratosis [Q82.8] INVALID FOR* Tendonitis [M77.9] INVALID FOR* Capsulitis [M77.9] INVALID FOR* Abnormality of gait [R26.9] INVALID FOR* L-S radiculopathy [M54.17] INVALID FOR* Hypokalemia [E87.6] INVALID FOR* OCD (obsessive compulsive disorder) [F42.9] INVALID FOR* Insomnia [G47.00] INVALID FOR* Hyperlipidemia [E78.5] INVALID FOR* Abdominal pain [R10.9] INVALID FOR* More... Obesity (BMI 30-39.9) [E66.9] INVALID FOR* More... Right flank pain [R10.9] INVALID FOR* Kidney stones [N20.0] INVALID FOR* Erosion of bladder suspension mesh (HCC) [T83.7*INVALID FOR* Elevated LFTs [R94.5] Other instructions from your clinician: You need to have an eye exam for screening while you take plaquenil. I will place the order for an ophthalmology referral. Please schedule this today. We will plan on getting labs once every year, instead of every 6 months. Encounter Status:Closed by GÉNESIS HINES MD on 05/12/18 CBC Collected: 05/12/2018 Status: F Source: [place] 10:47 AM [facility] REPOSITORY TYPE CODE TESTS RESULT OUT OF REFERENCE UNITS RANGE LAB WBC 3.70-11.00 k/uL WBC 6.20 LAB RBC 3.90-5.20 m/uL Low RBC 3.62 LAB HGB 11.5-15.5 g/dL Low Hemoglobin 10.1 LAB HCT 36.0-46.0 % Low Hematocrit 33.1 LAB MCV 80.0-100.0 fL MCV 91.4 LAB MCH 26.0-34.0 pG MCH 27.9 LAB MCHC 30.5-36.0 g/dL MCHC 30.5 LAB RDWCV 11.5-15.0 % RDW-CV 14.4 LAB PLTCT 150-400 k/uL Platelet Count 378 LAB MPV 9.0-12.7 fL Low MPV 8.5 LAB ABSNUC <0.01 k/uL Absolute nRBC <0.01 Performed By: #### CBC, C3COMP, C4COMP, CMP, RF, SEPG, MPASRM #### [facility] [address] [place], [place] [address] C3 COMPLEMENT Collected: 05/12/2018 Status: F Source: [place] 10:47 AM [facility] REPOSITORY TYPE CODE TESTS RESULT OUT OF REFERENCE UNITS RANGE LAB C3COMP 86-166 mg/dL C3 Complement 165 Performed By: #### CBC, C3COMP, C4COMP, CMP, RF, SEPG, MPASRM #### [facility] [employer] [address], [place] [address] C4 COMPLEMENT Collected: 05/12/2018 Status: F Source: [place] 10:47 AM [facility] REPOSITORY TYPE CODE TESTS RESULT OUT OF REFERENCE UNITS RANGE LAB C4COMP 13-46 mg/dL C4 Complement 30 Performed By: #### CBC, C3COMP, C4COMP, CMP, RF, SEPG, MPASRM #### [facility] [employer] [address] [place], [place] [address] COMP METABOLIC PANEL Collected: 05/12/2018 Status: F Source: [place] 10:47 AM [facility] REPOSITORY TYPE CODE TESTS RESULT OUT OF REFERENCE UNITS RANGE LAB TP 6.3-8.0 g/dL Protein, Total 6.8 LAB ALB 3.9-4.9 g/dL Albumin 4.0 LAB CA 8.5-10.2 mg/dL Calcium, Total 9.0 LAB TBIL 0.2-1.3 mg/dL Low Bilirubin, Total <0.2 LAB ALKP 32-117 U/L Alkaline Phosphatase 77 LAB AST 13-35 U/L AST 24 LAB GLU 74-99 mg/dL Glucose 88 Result Comment: The [place] [employer] (ADA) provides guidance for cutoff values for fasting glucose and random glucose. The ADA defines fasting as no caloric intake for at least 8 hours. Fas ting plasma glucose results between 100 to 125 mg/dL indicate increased risk for diabetes (prediabetes). Fasting plasma glucose results greater than or equal to 126 mg/dL meet the criteria for diagnosis of diabetes. In the absence of unequivocal hyperglycemia, results should be confirmed by repeat testing. In a patient with classic symptoms of hyperglycemia or hyperglycemic crisis, random plasma glucose results greater than or equal to 200 mg/dL meet the criteria for diagnosis of diabetes. Reference: Standards of Medical Care in Diabetes 2016, [place] [employer]. Diabetes Care. 2016.39(Suppl 1). LAB BUN 7-21 mg/dL BUN 14 LAB CRET 0.58-0.96 mg/dL Creatinine 0.61 LAB NA 136-144 mmol/L Sodium Low 130 LAB K 3.7-5.1 mmol/L Potassium 4.8 LAB CL 97-105 mmol/L Chloride Low 94 LAB CO2 22-30 mmol/L CO2 25 LAB AGAP 9-18 mmol/L Anion Gap 11 LAB ALT 7-38 U/L ALT 14 LAB GFRAA eGFR- Amer. >60 LAB GFRNAA . eGFR-All Other Races >60 Result Comment: eGFR (Estimated GFR) Units of measure: mL/min/1.73 meters squared eGFR is derived from the reexpressed MDRD Study equation using the following parameters: serum creatinine, age, gender and race. The creatinine assay has been calibrated to be traceable to IDMS. An eGFR <60 mL/min/1.73m2 for >3 months is consistent with chronic kidney disease. Refer to KDOQI guidelines for clinical interpretation. In patients with unstable renal function, e.g. those with acute kidney injury, the eGFR may not accurately reflect actual GFR. Performed By: #### CBC, C3COMP, C4COMP, CMP, RF, SEPG, MPASRM #### [facility] [employer] [address] [id number] RHEUMATOID FACTOR Collected: 05/12/2018 Status: F Source: [place] 10:47 AM [facility] REPOSITORY TYPE CODE TESTS RESULT OUT OF REFERENCE UNITS RANGE LAB RF <16 IU/mL High Rheumatoid 35 Factor Performed By: #### CBC, C3COMP, C4COMP, CMP, RF, SEPG, MPASRM #### [facility] [employer] [address] [place], [place] [address] PROTEIN ELECTROPHOR. Collected: 05/12/2018 Status: F Source: [place] 10:47 [facility] REPOSITORY TYPE CODE TESTS RESULT OUT OF REFERENCE UNITS RANGE LAB TPSPE 6.0-8.4 g/dL Total Protein, SPE 6.8 LAB ALBE 3.37-4.23 gm/dL Albumin 3.54 LAB A1GL 0.18-0.31 gm/dL Alpha 1 Globulin 0.26 LAB A2GL 0.52-0.97 gm/dL Alpha 2 Globulin 0.77 LAB BEGL 0.84-1.36 gm/dL Beta Globulin 1.04 LAB GAGL 0.70-1.44 gm/dL Gamma Globulin 1.19 LAB SPEINT Interpretation SEE COMMENT Result Comment: No definitive M protein is identified on protein electrophoresis. LAB LOC M Protein N/A Location LAB GPERDL 0.00 gm/dL M Rainer 0.00 Concentratn LAB SPESTF SPE Staff Review Reviewed by Jayy Smiley M.D. ([id number]) Performed By: #### CBC, C3COMP, C4COMP, CMP, RF, SEPG, MPASRM #### [facility] [address] [place], [place] [address] MONOCLONL PROTEIN,BL Collected: 05/12/2018 Status: F Source: [place] 10:47 AM [facility] REPOSITORY TYPE CODE TESTS RESULT OUT OF REFERENCE UNITS RANGE LAB MPAIGG 717-1411 mg/dL MPA Serum 1280 IgG LAB MPAIGA 78-391 mg/dL Low MPA Serum 48 IgA LAB MPAIGM 53-334 mg/dL MPA Serum 73 IgM LAB MPAK 534-1267 mg/dL Serum (NOTE) [place] Result Comment: [place] result =279 mg/dL. Disregard [facility] reference range. [facility] [place] Reference Range: 176-443 mg/dL Test performed by: [place] This assay provides a measurement of the total kappa and the total lambda light chains, i.e., the amount of free (unattached) light chain in circulation and the amount of light chain linked to heavy chain in intact immunoglobulin molecules. Assays for serum free light chain only, kappa and lambda with ratio, may be more useful in evaluating and managing light chain gammopathies including those associated with myeloma, lymphoproliferative disorders, and amyloidosis. Results from the [facility] assay cannot be compared directly with previously generated results. LAB MPAL 253-653 mg/dL Serum Lambda (NOTE) Result Comment: Lambda result =119 mg/dL. Disregard [facility] reference range. [facility] Lambda Reference Range: 91-240 mg/dL Test performed by: [place] This assay provides a measurement of the total kappa and the total lambda light chains, i.e., the amount of free (unattached) light chain in circulation and the amount of light chain linked to heavy chain in intact immunoglobulin molecules. Assays for serum free light chain only, kappa and lambda with ratio, may be more useful in evaluating and managing light chain gammopathies inlcuding those associated with myeloma, lymphoproliferative disorders, and amyloidosis. Results from the [facility] assay cannot be compared directly with previously generated results. LAB MPAKL 1-3 MPA Sylvie/Funk Ratio (NOTE) Result Comment: [place]/Lambda ratio =2.34 Disregard [facility] reference range. [facility] [place]/Lambda Ratio Reference Range: 1.29-2.55 Test performed by: [employer], [place], [place] This assay provides a measurement of the total kappa and the total lambda light chains, i.e., the amount of free (unattached) light chain in circulation and the amount of light chain linked to heavy chain in intact immunoglobulin molecules. Assays for the serum free light chain only, kappa and lambda with ratio, may be more useful in evaluating and managing light chain gammopathies including those associated with myeloma, lymphoproliferative disorders, and amyloidosis. Results from the [facility] assay cannot be compared directly with previously generated results. LAB MPAR No M protein is identified. No M protein MPA Result is identified. LAB MPASTF Reviewed by Staff Review Jayy Smiley M.D. ([id number]) Performed By: #### CBC, C3COMP, C4COMP, CMP, RF, SEPG, MPASRM #### [facility] [address] [address] CNPN Observed: 05/04/2018 Status: COMPLETED Source: [place] 12:00 AM [facility] REPOSITORY Telephone ([employer]) WINTER JOY ([id number]) 1955 F Date Time Provider Department 05/04/18 GÉNESIS HINES During your visit today, we recorded the following information about you: Ofelia Kemar Psr 05/04/2018 10:03 AM Signed .Winter Joy is calling Génesis Hines MD today with concern regarding orders for labs Patient calling to make sure labs are in the system and multiple concerns Patient also has concerns about feeling faint while on her feet And bruising on both legs looks like A rash but does not itch, however it rodríguez . Patient has been identified by name and birthdate. Duration of symptoms: N/A Person calling: self Call patient at: at home [phone] (home) [phone] (cell) Was an appointment scheduled: No Closing statement: Symptom Call: Thank you for calling [facility], your call is very important. A nurse will call in approximately 2-4 hours during business hours. If this is an emergency, please contact 911. Ofelia Reinoso Psr Brook Felix RN 05/04/2018 10:44 AM Signed See below. Patient has an appointment 05/12/18 and will be bringing outside lab results to appointment. She has been having some bruising on her legs and PCP ordered labs which came back normal. Also, patient has noticed an area of itching on her left ankle and then both of her lower legs become discolored and turn purple. She states that when this when this happens she get a burning sensation and feels nauseous all over. symptoms lasts for about 3 days then resolve. This has been going on for over a month. She has been applying hydrocortisone cream on her legs and helps somewhat. Once the purple goes away, her legs stay darker than her regular skin tone and burning sensation remains - increased when crossing her legs. She is aware to bring outside records to appointment next week and also has pictures of leg discoloration to show you. Brook Hines MD 05/04/2018 2:31 PM Signed This can be further addressed at her office visit. Génesis Hines MD Allergies As of Date: 05/04/2018 Noted Allergy Reaction ULTRAM (TRAMADOL HCL) 03/06/2014 9 - Itching Comments: Severe itching,rash BEES 05/10/2007 CORTISONE 07/07/2005 5 - Intolerance MELOXICAM 12/11/2007 9 - Itching PERCOCET (OXYCODONE-ACETAMINOPHEN)01/09/2009 9 - Itching PREDNISONE 12/11/2008 SHELLFISH 02/16/2006 TALWIN (PENTAZOCINE LACTATE) 02/16/2006 Date Reviewed: 11/04/2017 Reviewed by: Clau Garcia Ma - Fully Assessed Reason for Visit: Results [95] Prescriptions as of 05/04/2018 Sig: HYDROXYCHLOROQUINE 200 MG TAB* Take 1 tablet by mouth twice * BUTRANS 5 MCG/HOUR TRANSDERMA* IPRATROPIUM BROMIDE 0.03 % NA* TRIAMCINOLONE ACETONIDE 0.1 %* Apply 1 application to affect* KETOCONAZOLE 2 % TOPICAL CREAM Apply 1 application to affect* AMLODIPINE 10 MG TABLET Take 10 mg by mouth once rakesh* BENZONATATE 100 MG CAPSULE Take 100 mg by mouth three ti* KETOCONAZOLE 2 % TOPICAL CREAM Apply 1 application to affect* ALL DAY ALLERGY (CETIRIZINE) * CYCLOBENZAPRINE 5 MG TABLET DICLOFENAC 1 % TOPICAL GEL TROSPIUM ER 60 MG CAPSULE,EXT* Take 1 capsule by mouth once * FLURAZEPAM 15 MG CAPSULE Take 15 mg by mouth at bedtim* HYDROCODONE 5 MG-ACETAMINOPHE* Take 1 tablet by mouth every * HYDROCHLOROTHIAZIDE 12.5 MG T* Take 25 mg by mouth once rakesh* OMEPRAZOLE 20 MG CAPSULE,DEMARCUS* Take 20 mg by mouth once rakesh* LISINOPRIL 10 MG TABLET Take 10 mg by mouth once rakesh* POTASSIUM CHLORIDE ER 20 MEQ * Take 20 mEq by mouth twice da* DULOXETINE 30 MG CAPSULE,DEMARCUS* Take 30 mg by mouth twice johnathan* EPINEPHRINE 0.3 MG/0.3 ML INJ* Inject 0.3 mg intramuscularly* ESTRADIOL 2 MG TABLET Take 2 mg by mouth once daily. 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 CAVUS DEFORMITY OF FOOT [M21.6X9] INVALID FOR* OTHER HAMMER TOE [M20.40] INVALID FOR* PAIN IN LIMB [M79.609] INVALID FOR* Unspecified Cellulitis and Abscess of Toe [L03.*INVALID FOR* Unspecified Asthma [J45.909] More... Hematoma [T14.8XXA] INVALID FOR* Exostosis of Unspecified Site [M89.8X9] INVALID FOR* Sprain and strain of unspecified site of foot [*INVALID FOR* Allergic reaction to bee sting [T63.441A] INVALID FOR* Porokeratosis [Q82.8] INVALID FOR* Tendonitis [M77.9] INVALID FOR* Capsulitis [M77.9] INVALID FOR* Abnormality of gait [R26.9] INVALID FOR* L-S radiculopathy [M54.17] INVALID FOR* Hypokalemia [E87.6] INVALID FOR* OCD (obsessive compulsive disorder) [F42.9] INVALID FOR* Insomnia [G47.00] INVALID FOR* Hyperlipidemia [E78.5] INVALID FOR* Abdominal pain [R10.9] INVALID FOR* More... Obesity (BMI 30-39.9) [E66.9] INVALID FOR* More... Right flank pain [R10.9] INVALID FOR* Kidney stones [N20.0] INVALID FOR* Erosion of bladder suspension mesh (HCC) [T83.7*INVALID FOR* Elevated LFTs [R94.5] Encounter Status:Closed by BROOK FELIX RN on 05/04/18 Observed: 04/22/2018 Status: F Source: [place] RESPIRATORY PANEL 9:50 AM [facility] REPOSITORY RP PANEL ADENOVIRUS Not Detected HUMAN METAPHNEUMO Not Detected INFLUENZA A Not Detected INFLUENZA A (SUBTYPE H1) Not Detected INFLUENZA A (SUBTYPE H3) Not Detected INFLUENZA B Not Detected PARAINFLUENZA 1 Not Detected PARAINFLUENZA 2 Not Detected PARAINFLUENZA 3 Not Detected PARAINFLUENZA 4 Not Detected RHINOVIRUS Not Detected RSV A Not Detected RSV B Not Detected NAAT METHOD Testing was performed using nucleic acid amplification Performed By: #### M100.638 #### [facility] [place], [address] Observed: 04/21/2018 Status: F Source: [place] CULTURE, SPUTUM 2:30 PM [facility] REPOSITORY Gram Stain Acceptable Specimen? Yes (<25 Epithelial cells per/lpf) Gram Stain 2+ Gram positive cocci Very Rare Epithelial cells No White Blood Cells Resp. Culture Mixed normal respiratory ethan. No Haemophilus, Streptococcus pneumoniae, beta-hemolytic Streptococcus or Staphylococcus aureus isolated. Performed By: #### M100.0800 #### [facility] [address] [place], [address] CHEST PA AND LATERAL Observed: 04/21/2018 Status: F Source: [place] 2:15 PM [facility] REPOSITORY [facility] Imaging Services [address] [place] [address] Chest PA and Lateral MR#: [id number] Acct: [id number] Name: WINTER JOY Rep #: [id number] : 1955 F 63 From: Tio Pena MD PCP: Bay Ramos DO Status: REG CLI Study: Chest PA and Lateral Date of Exam: 04/21/18 Exam# [id number] Ordering Dr: Bay Ramos DO STUDY: X-RAY CHEST REASON FOR EXAM: Female, 63 years old. Cough. TECHNIQUE: PA and lateral views of the chest. COMPARISON: 08/10/2015. FINDINGS: There is hyperinflation of the lungs consistent with chronic obstructive lung disease (COPD). There is no demonstrated pleural abnormality. Normal size heart. Normal mediastinum and reagan. Normal visualized pulmonary arteries. Normal visualized aortic arch and descending thoracic aorta. There are diffuse degenerative changes of the visualized thoracic spine. Normal visualized ribs, clavicles, and shoulders. There is no demonstrated abnormality of the visualized soft tissue structures of the upper abdomen. RAD/Chest PA and Lateral IMPRESSION: No active pulmonary disease. Electronically Signed: Tio Pena MD at 14:01 EDT Tel , Service support , CC: Bay Ramos DO Photograph Inspector: Signed CBC W/DIFF, AUTOMATED Collected: 04/21/2018 Status: F Source: [place] 1:56 PM [facility] REPOSITORY TYPE CODE TESTS RESULT OUT OF RANGE REFERENCE UNITS LAB L100.1000 4.4-11.0 K/mm3 Normal WBC 7.0 LAB L100.1200 4.2-5.4 M/mm3 Low RBC 3.98 LAB L100.1300 12.0-15.0 g/dl Low HGB 11.4 LAB L100.1400 37-47 % Low HCT 34.8 LAB L100.1500 81-99 fL Normal MCV 87.4 LAB L100.1600 27.0-32.0 pg Normal MCH 28.6 LAB L100.1700 32-36 g/gl Normal MCHC 32.8 LAB L100.1810 11.6-14.6 % Normal RDW CV 14.0 LAB L100.1820 35.1-43.9 fl High RDW SD 44.4 LAB L100.1900 150-450 K/mm3 Normal PLT 370 LAB L100.2000 6.2-12.0 fl Normal MPV 8.3 LAB L100.2100 47-70 % Normal NEUT% 60.7 LAB L100.2200 19-41 % Normal LY% 29.2 LAB L100.2300 0-10 % Normal MONO% 8.6 LAB L100.2400 0-5 % Normal EO% 1.1 LAB L100.2500 0-1 % Normal BASO% 0.3 LAB L100.2550 0.0-0.9 % Normal IM GRAN % 0.100 Result Comment: IG% - Immature Granulocytes (promyelocytes, myelocytes and metamyelocytes) > 1% indicates that a LEFT SHIFT is Present. LAB L100.2620 2.0-7.7 X10 3/uL Normal Absolute Neut 4.2 LAB L100.2720 0.83-4.51 X10 3/ul Normal Absolute Lymph 2.03 Performed By: #### L100.0100 #### [facility] [address] [facility] [place], [address] SPINE LUMBAR Observed: 04/20/2018 Status: F Source: [place] (ROUTINE) 11:03 AM [facility] REPOSITORY [facility] Imaging Services [address] [place] [address] Spine Lumbar (Routine) MR#: [id number] Acct: [id number] Name: WINTER JOY Rep #: [id number] : 1955 F 63 From: Delores Cruz PCP: Richard MA,Bay Status: REG CLI Study: Spine Lumbar (Routine) Date of Exam: 04/20/18 Exam# [id number] Ordering Dr: Joe Sanchez MD STUDY: MRI LUMBAR SPINE WITHOUT CONTRAST REASON FOR EXAM: Female, 63 years old. BACK AND LEG PAIN INTO HIPS, H/O RA. TECHNIQUE: Standardized fat and water weighted pulse sequences were obtained in the sagittal and axial planes. COMPARISON: None FINDINGS: T12-L1: Normal endplates. Normal disc height, hydration and morphology. Normal bilateral facet joints. Normal central canal and bilateral lateral recesses. Normal bilateral intervertebral neural foramina. Normal lumbar lordosis. There is no substantial scoliosis. Normal conus medullaris that terminates at the L1 L1-2: Normal endplates. Normal disc height, hydration and morphology. Normal bilateral facet joints. Normal central canal and bilateral lateral recesses. Normal bilateral intervertebral neural foramina. L2-3: There is minimal disc space narrowing and endplate spondylosis. There is a minimal disc bulge and facet atrophy without significant central canal or foraminal stenosis. L3-4: There is mild disc space narrowing and endplate spondylosis. There is a mild disc bulge and facet hypertrophy with mild central canal stenosis. There is no significant foraminal stenosis. L4-5: There is mild disc space narrowing and intestinalis. There is a mild disc bulge and facet arthropathy with mild central canal stenosis. There is mild bilateral foraminal stenosis. L5-S1: There is severe disc space narrowing and endplate spondylosis. There is disc osteophyte complex and facet arthropathy without significant central canal stenosis. There is minimal right and moderate left foraminal stenosis. Normal visualized sacral ala. Normal visualized paraspinous soft tissue structures. MRI/Spine Lumbar (Routine) IMPRESSION: L5/S1: Moderate left foraminal stenosis. Electronically Signed: Delores Cruz MD at 10:32 EDT Tel , Service support , CC: Joe Sanchez MD; Bay Ramos DO Photograph Inspector: Signed URINE DRUG SCREEN Collected: 03/30/2018 Status: F Source: [place] (VISTA) 1:57 PM [facility] REPOSITORY Order Comment: Comments: [id number] RUN LOWEST TEST, TRAMADOL List of Drugs Taken or Suspected? UNK TYPE CODE TESTS RESULT OUT OF RANGE REFERENCE UNITS LAB L505.0075 TO BE Normal CONFIRMED Result Comment: CONFIRMATORY TESTING FOR ALL POSITIVE URINE DRUG SCREEN RESULTS WILL ONLY BE SENT OUT UPON PHYSICIAN ORDER. VISTA Urine Drug Screen methods provide only preliminary analytical test results. A more specific alternate chemical method must be used in order to obtain a confirmed analytical result. Gas chromatography/mass spectrometery (GC/MS) is the preferred confirmatory method. Clinical consideration and professional judgement should be applied to any drug of abuse test result, particularly when preliminary positive results are used. URINE TCA TESTING MUST BE ORDERED SEPARATELY. USE TEST MNEMONIC: [facility] LAB L505.5005 VISTA UDS PH 6 Normal LAB L505.5015 <1000 ng/mL AMPHETAMINES Normal NEGATIVE LAB L505.5025 < 200 ng/mL BARBITIURATES Normal NEGATIVE LAB L505.5035 < 200 ng/mL BENZODIAZIPINE Normal NEGATIVE LAB L505.5045 < 300 ng/mL COCAINE Normal NEGATIVE LAB L505.5055 < 500 ng/mL ECSTACY Normal NEGATIVE LAB L505.5065 < 300 ng/mL METHADONE Normal NEGATIVE LAB L505.5075 < 300 ng/mL OPIATES Normal NEGATIVE LAB L505.5085 < 25 ng/mL PCP Normal NEGATIVE LAB L505.5095 < 50 ng/mL THC Normal NEGATIVE Performed By: #### L505.5000 #### [facility] [address] [place], [address] MISCELLANEOUS LAB Collected: 03/30/2018 Status: F Source: [place] PROCEDURE 1:57 PM [facility] REPOSITORY Order Comment: Comments: [id number] RUN LOWEST TEST, TRAMADOL Test(s) Ordered: [id number] RUN LOWEST TEST TYPE CODE TESTS RESULT OUT OF RANGE REFERENCE UNITS LAB L801.1541 Normal [facility] TEST Result Comment: [id number] 6+OXYCODONE-BUND (ng/mL) DRUG RESULT SCREEN CUTOFF ____ Amphetamines,Urine Negative ng/mL 1000 Amphetamine test includes Amphetamine and Methamphetamine. Barbiturates Negative ng/mL 200 Benzodiazepines Negative ng/mL 200 Cannabinoid Negative ng/mL 20 Cocaine (Metab) Negative ng/mL 300 Opiates Negative ng/mL 300 Opiates test includes Codeine, Morphine, Hydromorphone, Hydrocodone. Oxycodone/Oxymorphone,Urine Negative ng/mL 300 Test includes Oxydodone and Oxymorphone. TESTING PERFORMED AT [facility]. ORIGINAL REPORT ON FILE IN LAB CONTAINS ADDITIONAL TEST SITE INFORMATION. Performed By: #### L801.1541 #### [facility] [place], [address] MISCELLANEOUS LAB Collected: 03/30/2018 Status: F Source: [place] PROCEDURE 2 1:57 PM [facility] REPOSITORY Order Comment: Comments: [id number] RUN LOWEST TEST, TRAMADOL List Test(s) Ordered by Physician: [id number], TRAMADOL TYPE CODE TESTS RESULT OUT OF RANGE REFERENCE UNITS LAB L801.1543 Normal [facility] TEST 2 Result Comment: TEST RESULT LIMITS Tramadol Screen, Urine Negative ng/mL Cutoff = 200 TESTING PERFORMED AT [facility]. ORIGINAL REPORT ON FILE IN LAB CONTAINS ADDITIONAL TEST SITE INFORMATION. Performed By: #### L801.1543 #### [facility] [address] [place], [address] PULMONARY VISIT REPORT Observed: 02/20/2018 Status: F Source: [place] 3:32 PM [facility] REPOSITORY [facility] [address] [place] [address] OFFICE VISIT Date of Service: 02/20/18 MR#: [id number] Acct: [id number] Name: MARTALOGANWINTER Merritt Rep #: [id number] : 1955 Provider: Angélica Marcelino Age/Sex: 62/F Location: [facility] Status: Signed Assessment AND Plan 1. Mild intermittent asthma in adult without complication J45.20 Plan Patient inappropriately over uses rescue inhalers and education provided. Patient stated these medications are improving and helping her cough. No change of medication required at this time. No additional testing at this time. Follow-up with Dr. Olmos in 6 months. Patient has been educated on signs and symptoms of exacerbation, and asked to call the office if he should present prior to the scheduled follow-up. Medications Refilled: 2. Postnasal drip R09.82 Plan Currently uses ipratropium bromide for postnasal drip and per patient has been effective and improving drainage. Continue ipratropium bromide. Plan Detail Other Medications Refilled: ipratropium bromide administer into each n2 sprays Intranasal BID-TID PRN allergy symp ostril; wait 30 seconds between sprays toms Follow Up 6 Months (BWA) HPI 4 weeks post op: Chief Complaint: Routine F/U HPI Comments Details: Pt is ok with a student. Needs refills on ipratropium nasal spray and proair. Patient has a cough with clear/yellow sputum. Chest congestion. Increase use of rescue inhalers. Pain with breathing/cough. Patient thinks she has been in a flare up for 2 weeks. Proair 4-5 times daily. Alb in neb 3-4 times daily. Patient has c/o itchy eyes, sinus pain and sinus pressure. Patient sees Dr Figueroa. Winter a 62 year old female presented to office for routine f/u visit. She denies any recent hospitalizations or outpatient care clinics. Patient stated she had a productive cough that started four days prior, sputum was clear but only lasted for two days. Now she stated it is a dry intermittent cough and has been using her rescue inhaler 3-4 x/day and ipratropium 3 x/day with good effect. She thinks that when she went in her basement the dust caused the cough. She stated her cough is improving. She reports SOB only with exertional activity such as climbing a flight of stairs, but quickly resolves. She continues to have post nasal drip per patient but is improving with the use of ipratropium bromide nasal spray. Denies watery or itchy eyes or clear nasal drainage. She is requesting a refill on ipratropium bromide. She denies sinus pressure, sinus drainage, SOB with rest, chest pain or tightness, wheezing, n/v, fever or chills. See complete ROS. 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 Accompanied by: Self Is patient in pain?: Yes Allergies acetaminophen [From Percocet] Allergy (Intermediate, Verified 11/17/17 08:39) Hives AND itching divalproex sodium [From Depakote] Allergy (Intermediate, Verified 11/17/17 08:39) Other - nightmares quetiapine [From Seroquel] Allergy (Mild, Verified 11/17/17 08:39) Other - shaking, lightheaded and abnormal dreams bee pollen Allergy (Verified 11/17/17 08:39) Anaphylaxis shellfish derived Allergy (Verified 11/17/17 08:39) Unknown tramadol [From Ultram] Adverse Reaction (Intermediate, Verified 11/17/17 08:39) Itching meloxicam Adverse Reaction (Verified 11/17/17 08:39) Unknown oxycodone [Oxycodone] Adverse Reaction (Verified 11/17/17 08:39) Rash bee sting Allergy (Severe, Uncoded 11/17/17 08:39) Anaphylaxis STEROIDS Allergy (Intermediate, Uncoded 11/17/17 08:39) Hives AND swelling Medications Estradiol [Estrace] 2 mg PO DAILY 09/09/13 [History Confirmed 11/17/17] Hydrochlorothiazide 12.5 mg PO DAILY 09/09/13 [History Confirmed 11/17/17] Lisinopril [Zestril] 5 mg PO DAILY 09/09/13 [History Confirmed 11/17/17] Cetirizine HCl [All Day Allergy] 10 mg PO DAILY 06/17/16 [History Confirmed 11/17/17] Duloxetine Hcl [Cymbalta] 30 mg PO BID 06/17/16 [History Confirmed 11/17/17] Epinephrine [Epi Pen] 0.3 mg IM X1 06/17/16 [History Confirmed 11/17/17] Hydrocodone Bitart/Apap 5-325 [[place] 5MG-325MG] 1 tab PO BID 06/17/16 [History Confirmed 11/17/17] Omeprazole [Prilosec] 40 mg PO DAILY 06/17/16 [History Confirmed 11/17/17] Potassium Chloride [K-Dur] 20 meq PO BID 06/17/16 [History Confirmed 11/17/17] fentanyl 25 mcg/hr transdermal patch 1 patch TRANSDERMAL Q72H 08/13/17 [History Confirmed 11/17/17] ipratropium-albuterol 0.5 mg-3 mg(2.5 mg base)/3 mL nebulization soln 3 ml INHALATION Q6H PRN ml 08/13/17 [History Confirmed 11/17/17] prazosin 1 mg capsule See Label Instructions PO QHS PRN cap 08/13/17 [History Confirmed 11/17/17] albuterol sulfate 2.5 mg/3 mL (0.083 %) solution for nebulization 2.5 mg INHALATION BID PRN #180 ml 08/18/17 [Rx Confirmed 11/17/17] cetirizine 10 mg tablet 10 mg PO QDAY #30 tab 12/22/17 [Rx] albuterol sulfate HFA 90 mcg/actuation aerosol inhaler 2 puff INHALATION Q4H PRN PRN #8.5 g 02/20/18 [Rx Confirmed 02/20/18] ipratropium bromide 0.03 % nasal spray 2 spray INTRANASAL BID-TID PRN #30 ml 02/20/18 [Rx Confirmed 02/20/18] [facility] Medical History Encounter for screening for malignant neoplasm of colon (Acute) Epigastric abdominal pain (Acute) Back sprain (Acute) Chest pain (Acute) Lightheadedness (Acute) Loss of appetite (Acute) Otitis media (Acute) Right flank pain (Acute) Sinusitis (Acute) Anxiety (Chronic) Asthma (Chronic) Bipolar disorder (Chronic) Depression (Chronic) Eustachian tube dysfunction (Chronic) GERD (gastroesophageal reflux disease) (Chronic) Hepatitis (Chronic) Herpes simplex with unspecified complication (Chronic) Hyperlipidemia (Chronic) Hypertension (Chronic) Long-term use of high-risk medication (Chronic) Mild dilation of ascending aorta (Chronic) Mild mitral regurgitation (Chronic) Nephrolithiasis (Chronic) Nightmares (Chronic) OCD (obsessive compulsive disorder) (Chronic) TROY (obstructive sleep apnea) (Chronic) Obesity (Chronic) Paroxysmal atrial tachycardia (Chronic) Rhinorrhea (Chronic) Segmental and somatic dysfunction of cervical region (Chronic) Segmental and somatic dysfunction of thoracic region (Chronic) Spinal stenosis of lumbar region (Chronic) Thoracic aortic aneurysm without rupture (Chronic) Surgical History H/O eye surgery (Resolved) H/O hand surgery (Resolved) H/O: hysterectomy (Resolved) History of appendectomy (Resolved) History of bilateral carpal tunnel release (Resolved) History of total right knee replacement (Resolved) Hx laparoscopic cholecystectomy (Resolved) bladder sling removal (Resolved) Family History Father Cancer Mother Heart disease H/O weight disorder Sister Hypertension Social History Smoking Status: Former smoker quit date: 08/29/82 pack-years: 15 second hand exposure: No alcohol intake: never substance use type: does not use Review of Systems Const CONSTITUTIONAL: Positive daytime sleepiness and fatigue; negative anorexia, body ache, chills, fever(s), night sweats, oral thrush, stops breathing during sleep, weight loss, sleeping in chair, weight loss, weight gain, frequent colds, seasonal allergies, other, headache(s) or orthopnea EETM Ear Nose Throat Mouth: Positive itchy eyes, post nasal drip and hearing normal; negative hard of hearing, hoarseness, dry mouth in morning, change in vision, eye pain, swallowing Difficulty, ear pain, nose bleed, headache(s), mouth pain, nasal congestion, nasal discharge, sinus pain, sinus pressure, sore throat or other Cardio Cardiovascular: Negative chest pain, chest pain at rest, chest pain with activity, irregular heart rhythm, edema, shortness of breath when lying down, palpitations, murmur or other Resp Respiratory: Positive shortness of breath, pain with cough, cough cough: Positive productive color: Positive clear and yellow, inhalers, increase use of rescue inhalers and as per HPI; negative wheezing, chest congestion, chest tightness, pain on inspiration, snoring, apnea or other C/O SOB with physical exertion, but quickly resolves. Dry non productive cough for the past two days. Uses resuce inhaler 3-4 x/day with good effect Gastro Gastrointestional: Positive change in appetite; negative bloody stools, difficulty swallowing, reflux, hematemesis, melena stool, loose stool, constipation or other Genitourinary: Negative blood in urine, nocturia, pain with urination or other Musc Musculoskeletal: Positive back pain and neck pain; negative body pain or other Skin/Breast Skin/Breast: Positive rash; negative dry skin, itching, unusual bruising, breast lump or other Neuro Neurological: Negative restless legs, confusion, weakness or other Psych Psychocological: Negative abnormal sleep pattern, anxiety, thoughts of hurting self/others, hopelessness or other Lymph Lymphatic: Positive easy bleeding and easy bruising; negative swollen lymph nodes or other Exam Const Constitutional: Positive conversant, in no acute respiratory distress, healthy appearing, well developed, well nourished, obese, good hygiene and cooperative Head Head: Positive normocephalic and atraumatic; negative cyanosis of lips/distal nose, frontal sinus tenderness or maxillary sinus tenderness Eyes Eye: Positive clear conjunctiva; negative nystagmus or scleral abnormality Ears Ear: Positive hearing normal and external ears normal; negative hard of hearing Nose Nose: Positive external nose normal and no nasal discharge; negative epistaxis, clear nasal discharge or purulent nasal discharge Mouth Mouth: Positive post nasal drip, oral mucosae normal and dentures; negative malodorous breath, no lesions or oral thrush present post nasal drip Neck Neck: Positive normal visual inspection, full ROM and trachea midline; negative lymphadenopathy, JVD or tender Chest Wall Chest: Positive normal inspection of the chest and symmetric chest movement; negative tenderness, increased A/P diameter or crepitus Resp lung sounds: Positive clear to auscultation, good air exchange, normal expiratory time and normal respiratory effort; negative rhonchi, wheeze present on forced exhalation, wheezes, rales, prolonged expiratory time, increased work of breathing, normal chronic state of increased work of breathing or use of accessory muscles Cardio Cardiac: Positive regular rate, regular rhythm, S1 normal and S2 normal; negative murmur, rub or gallop GI GI: Positive obese Genitourinary: Positive deferred Musc Musculoskeletal: Positive steady gait and ROM normal; negative kyphosis or lordosis Skin Pulmonary Skin Exam: Positive rash and intact Pulses Pulse: Yes radial pulses present Extremities Extremities: Yes capillary refill normal, No clubbing, No cyanosis, No edema Neuro Neurologic: Yes conversant, Yes no focal neuro deficits, Yes cooperative, Yes normal cognition, Yes normal coordination, No normal concentration ( needs redirection frequently), Yes understands questions, No tremor Lymph Lymphatic: No lymphadenopathy Psych Appearance: Positive grossly normal and eye contact Mental Status: Positive mental status grossly normal Mood: Positive anxious mood Affect: Positive anxious affect Coding Level of Care Code Off vis,est,level 3 Diagnoses Mild intermittent asthma in adult without complication J45.20 Postnasal drip R09.82 02/20/18 1532 <Electronically signed by Angélica CARMONA> Date Angélica CARMONA Cosigner Signature: Date (if applicable) CC: Bay Ramos DO CBC W/DIFF, AUTOMATED Collected: 02/16/2018 Status: F Source: [place] 11:23 AM [facility] REPOSITORY TYPE CODE TESTS RESULT OUT OF RANGE REFERENCE UNITS LAB L100.1000 4.4-11.0 K/mm3 Normal WBC 8.2 LAB L100.1200 4.2-5.4 M/mm3 Low RBC 4.09 LAB L100.1300 12.0-15.0 g/dl Low HGB 11.4 LAB L100.1400 37-47 % Low HCT 36.0 LAB L100.1500 81-99 fL Normal MCV 88.0 LAB L100.1600 27.0-32.0 pg Normal MCH 27.9 LAB L100.1700 32-36 g/gl Low MCHC 31.7 LAB L100.1810 11.6-14.6 % High RDW CV 15.3 LAB L100.1820 35.1-43.9 fl High RDW SD 49.1 LAB L100.1900 150-450 K/mm3 Normal PLT 353 LAB L100.2000 6.2-12.0 fl Normal MPV 8.2 LAB L100.2100 47-70 % Normal NEUT% 60.0 LAB L100.2200 19-41 % Normal LY% 30.1 LAB L100.2300 0-10 % Normal MONO% 9.1 LAB L100.2400 0-5 % Normal EO% 0.5 LAB L100.2500 0-1 % Normal BASO% 0.2 LAB L100.2550 0.0-0.9 % Normal IM GRAN % 0.100 Result Comment: IG% - Immature Granulocytes (promyelocytes, myelocytes and metamyelocytes) > 1% indicates that a LEFT SHIFT is Present. LAB L100.2620 2.0-7.7 X10 3/uL Normal Absolute Neut 4.9 LAB L100.2720 0.83-4.51 X10 3/ul Normal Absolute Lymph 2.48 Performed By: #### L100.0100 #### [facility] [address] [place], [place], [address] CNPN Observed: 02/03/2018 Status: COMPLETED Source: [place] 12:00 AM [facility] REPOSITORY Telephone (CASSIE) LAIRSON,WINTER M ([id number]) 1955 F Date Time Provider Department 02/03/18 GÉNESIS HINES During your visit today, we recorded the following information about you: Ofelia Sunr 02/03/2018 11:14 AM Signed .Winter Bang Martalogan is calling Génesis Hines MD today with concern regarding Ankle Pain Patient also has a rash possibly from ankle brace , also patient wants to discuss plaquenil reaction. Patient has multiple issues Please call patient at [phone] Patient has been identified by name and birthdate. Duration of symptoms: N/A Person calling: self Call patient at: at home [phone] (home) [phone] (cell) Was an appointment scheduled: No Closing statement: Symptom Call: Thank you for calling [facility], your call is very important. A nurse will call in approximately 2-4 hours during business hours. If this is an emergency, please contact 911. Ofelia Sunr Edith Melo LPN 02/03/2018 12:08 PM Signed Pt calling today to talk about a rash on her ankle - there is a phone encounter regarding this from 01/02/18. She discussed this with her Ekg Manager and he doesn't feel it's from the brace. She hasn't been wearing the brace - mentioned she hasn't worn the brace for about a month now. She was on her feet yesterday - she did a lot of walking yesterday and when she was getting ready for bed noticed that these red dots appeared again on her rt leg starting at ankle and sporadically went up the side of her leg - now she notices she has blotchy areas on the back of her leg. The right Leg also has started presenting with red dots near that ankle. She states the area's do not itch. Dr Hines please review and advise. Edith Hines MD 02/06/2018 4:39 PM Signed Please advise that if she is still having the swelling I'd have to see her in clinic. MD Brook Srinivasan RN 02/07/2018 8:20 AM Signed Left message on secure voicemail notifying patient to call back and schedule first available appointment with Dr. Hines. Brook Felix RN Allergies As of Date: 02/03/2018 Noted Allergy Reaction ULTRAM (TRAMADOL HCL) 03/06/2014 9 - Itching Comments: Severe itching,rash BEES 05/10/2007 CORTISONE 07/07/2005 5 - Intolerance MELOXICAM 12/11/2007 9 - Itching PERCOCET (OXYCODONE-ACETAMINOPHEN)01/09/2009 9 - Itching PREDNISONE 12/11/2008 SHELLFISH 02/16/2006 TALWIN (PENTAZOCINE LACTATE) 02/16/2006 Date Reviewed: 11/04/2017 Reviewed by: Clau Garcia Ma - Fully Assessed Reason for Visit: Ankle Pain [1036] Prescriptions as of 02/03/2018 Sig: HYDROXYCHLOROQUINE 200 MG TAB* Take 1 tablet by mouth twice * BUTRANS 5 MCG/HOUR TRANSDERMA* IPRATROPIUM BROMIDE 0.03 % NA* TRIAMCINOLONE ACETONIDE 0.1 %* Apply 1 application to affect* KETOCONAZOLE 2 % TOPICAL CREAM Apply 1 application to affect* AMLODIPINE 10 MG TABLET Take 10 mg by mouth once rakesh* BENZONATATE 100 MG CAPSULE Take 100 mg by mouth three ti* KETOCONAZOLE 2 % TOPICAL CREAM Apply 1 application to affect* ALL DAY ALLERGY (CETIRIZINE) * CYCLOBENZAPRINE 5 MG TABLET DICLOFENAC 1 % TOPICAL GEL TROSPIUM ER 60 MG CAPSULE,EXT* Take 1 capsule by mouth once * FLURAZEPAM 15 MG CAPSULE Take 15 mg by mouth at bedtim* HYDROCODONE 5 MG-ACETAMINOPHE* Take 1 tablet by mouth every * HYDROCHLOROTHIAZIDE 12.5 MG T* Take 25 mg by mouth once rakesh* OMEPRAZOLE 20 MG CAPSULE,DEMARCUS* Take 20 mg by mouth once rakesh* LISINOPRIL 10 MG TABLET Take 10 mg by mouth once rakesh* POTASSIUM CHLORIDE ER 20 MEQ * Take 20 mEq by mouth twice da* DULOXETINE 30 MG CAPSULE,DEMARCUS* Take 30 mg by mouth twice johnathan* EPINEPHRINE 0.3 MG/0.3 ML INJ* Inject 0.3 mg intramuscularly* ESTRADIOL 2 MG TABLET Take 2 mg by mouth once daily. 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 CAVUS DEFORMITY OF FOOT [M21.6X9] INVALID FOR* OTHER HAMMER TOE [M20.40] INVALID FOR* PAIN IN LIMB [M79.609] INVALID FOR* Unspecified Cellulitis and Abscess of Toe [L03.*INVALID FOR* Unspecified Asthma [J45.909] More... Hematoma [T14.8XXA] INVALID FOR* Exostosis of Unspecified Site [M89.8X9] INVALID FOR* Sprain and strain of unspecified site of foot [*INVALID FOR* Allergic reaction to bee sting [T63.441A] INVALID FOR* Porokeratosis [Q82.8] INVALID FOR* Tendonitis [M77.9] INVALID FOR* Capsulitis [M77.9] INVALID FOR* Abnormality of gait [R26.9] INVALID FOR* L-S radiculopathy [M54.17] INVALID FOR* Hypokalemia [E87.6] INVALID FOR* OCD (obsessive compulsive disorder) [F42.9] INVALID FOR* Insomnia [G47.00] INVALID FOR* Hyperlipidemia [E78.5] INVALID FOR* Abdominal pain [R10.9] INVALID FOR* More... Obesity (BMI 30-39.9) [E66.9] INVALID FOR* More... Right flank pain [R10.9] INVALID FOR* Kidney stones [N20.0] INVALID FOR* Erosion of bladder suspension mesh (HCC) [T83.7*INVALID FOR* Elevated LFTs [R79.89] Encounter Status:Closed by GÉNESIS HINES MD on 02/06/18 [place] Observed: 12/14/2017 Status: COMPLETED Source: [place] 12:00 AM [facility] REPOSITORY Telephone ([employer]) BENITAWINTER ([id number]) 1955 F Date Time Provider Department 12/14/17 GÉNESIS HINES During your visit today, we recorded the following information about you: Ofelia Reinoso Psr 12/14/2017 10:38 AM Signed .Winter Bang Martalogan is calling Génesis Hines MD today with concern regarding exhaustion. Patient has been identified by name and birthdate. Duration of symptoms: 3 weeks Person calling: self Call patient at: at home [phone] (home) [phone] (cell) Was an appointment scheduled: No Closing statement: Symptom Call: Thank you for calling [facility], your call is very important. A nurse will call in approximately 2-4 hours during business hours. If this is an emergency, please contact 911. Ofelia Reinoso Psr Brook Felix RN 12/14/2017 2:34 PM Signed Left message for patient to return call Brook Reinoso Psr 12/14/2017 3:11 PM Signed Patient would like to add on to the previous message that she also has leg pain (arthritis) however warm water makes her feel better Please call [phone] Brook Felix RN 12/14/2017 3:28 PM Signed Patient calling with complaints of fatigue / exhaustion x 3 weeks. She is also having bilateral leg pain and numbness. She is interested in trying hydroxychloroquine as mentioned at [facility] 11/04/17. Reviewed side effects with her and made her aware to have yearly eye exams. Please send prescription to [facility] pharmacy. Brook iHnes MD 12/14/2017 3:30 PM Signed Done. ThanksBrook. Génesis Hines MD Allergies As of Date: 12/14/2017 Noted Allergy Reaction ULTRAM (TRAMADOL HCL) 03/06/2014 9 - Itching Comments: Severe itching,rash BEES 05/10/2007 CORTISONE 07/07/2005 5 - Intolerance MELOXICAM 12/11/2007 9 - Itching PERCOCET (OXYCODONE-ACETAMINOPHEN)01/09/2009 9 - Itching PREDNISONE 12/11/2008 SHELLFISH 02/16/2006 TALWIN (PENTAZOCINE LACTATE) 02/16/2006 Date Reviewed: 11/04/2017 Reviewed by: Clau Garcia Ma - Fully Assessed Reason for Visit: Fatigue [46] Order(s):hydroxychloroquine (PLAQUENIL) 200 mg tabletTake 1 tablet by mouth twice daily.Disp: 60 tabletRfl: 5 Prescriptions as of 12/14/2017 Sig: HYDROXYCHLOROQUINE 200 MG TAB* Take 1 tablet by mouth twice * BUTRANS 5 MCG/HOUR TRANSDERMA* IPRATROPIUM BROMIDE 0.03 % NA* TRIAMCINOLONE ACETONIDE 0.1 %* Apply 1 application to affect* KETOCONAZOLE 2 % TOPICAL CREAM Apply 1 application to affect* AMLODIPINE 10 MG TABLET Take 10 mg by mouth once rakesh* BENZONATATE 100 MG CAPSULE Take 100 mg by mouth three ti* KETOCONAZOLE 2 % TOPICAL CREAM Apply 1 application to affect* ALL DAY ALLERGY (CETIRIZINE) * CYCLOBENZAPRINE 5 MG TABLET DICLOFENAC 1 % TOPICAL GEL TROSPIUM ER 60 MG CAPSULE,EXT* Take 1 capsule by mouth once * FLURAZEPAM 15 MG CAPSULE Take 15 mg by mouth at bedtim* HYDROCODONE 5 MG-ACETAMINOPHE* Take 1 tablet by mouth every * HYDROCHLOROTHIAZIDE 12.5 MG T* Take 25 mg by mouth once rakesh* OMEPRAZOLE 20 MG CAPSULE,DEMARCUS* Take 20 mg by mouth once rakesh* LISINOPRIL 10 MG TABLET Take 10 mg by mouth once rakesh* POTASSIUM CHLORIDE ER 20 MEQ * Take 20 mEq by mouth twice da* DULOXETINE 30 MG CAPSULE,DEMARCUS* Take 30 mg by mouth twice johnathan* EPINEPHRINE 0.3 MG/0.3 ML INJ* Inject 0.3 mg intramuscularly* ESTRADIOL 2 MG TABLET Take 2 mg by mouth once daily. 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 CAVUS DEFORMITY OF FOOT [M21.6X9] INVALID FOR* OTHER HAMMER TOE [M20.40] INVALID FOR* PAIN IN LIMB [M79.609] INVALID FOR* Unspecified Cellulitis and Abscess of Toe [L03.*INVALID FOR* Unspecified Asthma [J45.909] More... Hematoma [T14.8XXA] INVALID FOR* Exostosis of Unspecified Site [M89.8X9] INVALID FOR* Sprain and strain of unspecified site of foot [*INVALID FOR* Allergic reaction to bee sting [T63.441A] INVALID FOR* Porokeratosis [Q82.8] INVALID FOR* Tendonitis [M77.9] INVALID FOR* Capsulitis [M77.9] INVALID FOR* Abnormality of gait [R26.9] INVALID FOR* L-S radiculopathy [M54.17] INVALID FOR* Hypokalemia [E87.6] INVALID FOR* OCD (obsessive compulsive disorder) [F42.9] INVALID FOR* Insomnia [G47.00] INVALID FOR* Hyperlipidemia [E78.5] INVALID FOR* Abdominal pain [R10.9] INVALID FOR* More... Obesity (BMI 30-39.9) [E66.9] INVALID FOR* More... Right flank pain [R10.9] INVALID FOR* Kidney stones [N20.0] INVALID FOR* Erosion of bladder suspension mesh (HCC) [T83.7*INVALID FOR* Elevated LFTs [R79.89] Prescriptions ordered this encounter Disp Refills Start End HYDROXYCHLOROQUINE 200 MG TABLET 60 t* 5 12/14/2017 Route: ORAL Sig: Take 1 tablet by mouth twice daily. Encounter Status:Closed by GÉNESIS HINES MD on 12/14/17 LIPID PROFILE Collected: 11/28/2017 Status: F Source: [place] 10:55 AM [facility] REPOSITORY TYPE CODE TESTS RESULT OUT OF RANGE REFERENCE UNITS LAB L501.4900 200 mg/dL High CHOL 203 Result Comment: <200 mg/dL Desirable 200-240 mg/dL Borderline >240 mg/dL High Risk LAB L501.5000 mg/dL Normal TRIG 106 Result Comment: The drugs N-Acetylcysteine and Metamizole may falsely depress this assay. Serum Triglycerides Reference Interval Normal <150 mg/dL Borderline high 150 - 199 mg/dL High 200 - 499 mg/dL Very High > or = 500 mg/dL LAB L501.6400 mg/dL Normal HDL 76 Result Comment: The drugs N-Acetylcysteine and Metamizole may falsely depress this assay. Reference Range HDL <40 mg/dL Low HDL Cholesterol HDL >or= 60 mg/dL High HDL Cholesterol LAB L501.6500 0-130 mg/dL Normal LDL 106 LAB L501.6600 5-40 mg/dL Normal VLDL 21 Performed By: #### L500.4100 #### [facility] [address] [place], [place], [address] PULMONARY VISIT REPORT Observed: 11/17/2017 Status: F Source: [place] 9:14 AM [facility] REPOSITORY [facility] [address] [place], [place] [address] OFFICE VISIT Date of Service: 11/17/17 MR#: [id number] Acct: [id number] Name: WINTER JOY Rep #: [id number] : 1955 Provider: Angélica Marcelino Age/Sex: 62/F Location: [facility] Status: Signed Assessment AND Plan 1. PND (post-nasal drip) R09.82 Status Acute Plan Improved. Continue current maintenance medications. No additional testing at this time. Keep previously scheduled routine follow-up in January. Patient has been encouraged to contact the office if symptoms present in the meantime. She conveys understanding. 2. Mild intermittent asthma in adult without complication J45.20 Status Chronic Plan Stable. No signs of exacerbation today. No change in maintenance medications. No additional testing at this time. Keep previously scheduled routine follow-up. HPI 2 W FU: Chief Complaint: Runny nose HPI Comments Details: This patient presents the office today to follow-up after recently being started on nasal spray. She reports that she had excellent response to the new medication. The runny nose has completely resolved and her cough has stopped. She is very happy with her response to the medication. She has not needed to use her rescue inhaler. She has not needed her duo nebs via nebulizer. She denies any wheezing or chest tightness. She denies any hemoptysis or sputum production. She denies any fever, chills or body aches. See complete review of systems. She has not added any [id number] medications to control her symptoms. Intake Vital Signs11/17/17 Height 5 ft 3 in 11/17/17 Weight: 213 lb Intake Visit Reasons: 2 W FU Accompanied by: Self Allergies acetaminophen [From Percocet] Allergy (Intermediate, Verified 11/17/17 08:39) Hives AND itching divalproex sodium [From Depakote] Allergy (Intermediate, Verified 11/17/17 08:39) Other - nightmares quetiapine [From Seroquel] Allergy (Mild, Verified 11/17/17 08:39) Other - shaking, lightheaded and abnormal dreams bee pollen Allergy (Verified 11/17/17 08:39) Anaphylaxis shellfish derived Allergy (Verified 11/17/17 08:39) Unknown tramadol [From Ultram] Adverse Reaction (Intermediate, Verified 11/17/17 08:39) Itching meloxicam Adverse Reaction (Verified 11/17/17 08:39) Unknown oxycodone [Oxycodone] Adverse Reaction (Verified 11/17/17 08:39) Rash bee sting Allergy (Severe, Uncoded 11/17/17 08:39) Anaphylaxis STEROIDS Allergy (Intermediate, Uncoded 11/17/17 08:39) Hives AND swelling Medications Estradiol [Estrace] 2 mg PO DAILY 09/09/13 [History Confirmed 11/17/17] Hydrochlorothiazide 12.5 mg PO DAILY 09/09/13 [History Confirmed 11/17/17] Lisinopril [Zestril] 5 mg PO DAILY 09/09/13 [History Confirmed 11/17/17] Cetirizine HCl [All Day Allergy] 10 mg PO DAILY 06/17/16 [History Confirmed 11/17/17] Duloxetine Hcl [Cymbalta] 30 mg PO BID 06/17/16 [History Confirmed 11/17/17] Epinephrine [Epi Pen] 0.3 mg IM X1 06/17/16 [History Confirmed 11/17/17] Hydrocodone Bitart/Apap 5-325 [[place] 5MG-325MG] 1 tab PO BID 06/17/16 [History Confirmed 11/17/17] Omeprazole [Prilosec] 40 mg PO DAILY 06/17/16 [History Confirmed 11/17/17] Potassium Chloride [K-Dur] 20 meq PO BID 06/17/16 [History Confirmed 11/17/17] fentanyl 25 mcg/hr transdermal patch 1 patch TRANSDERMAL Q72H 08/13/17 [History Confirmed 11/17/17] ipratropium-albuterol 0.5 mg-3 mg(2.5 mg base)/3 mL nebulization soln 3 ml INHALATION Q6H PRN ml 08/13/17 [History Confirmed 11/17/17] prazosin 1 mg capsule See Label Instructions PO QHS PRN cap 08/13/17 [History Confirmed 11/17/17] albuterol sulfate 2.5 mg/3 mL (0.083 %) solution for nebulization 2.5 mg INHALATION BID PRN #180 ml 08/18/17 [Rx Confirmed 11/17/17] albuterol sulfate HFA 90 mcg/actuation aerosol inhaler 2 puff INHALATION Q4H PRN PRN #8.5 g 08/18/17 [Rx Confirmed 11/17/17] ipratropium bromide 0.03 % nasal spray 2 spray INTRANASAL BID-TID PRN #30 ml 11/03/17 [Rx Confirmed 11/17/17] [facility] Medical History Encounter for screening for malignant neoplasm of colon (Acute) Epigastric abdominal pain (Acute) Back sprain (Acute) Chest pain (Acute) Lightheadedness (Acute) Loss of appetite (Acute) Otitis media (Acute) Right flank pain (Acute) Sinusitis (Acute) Anxiety (Chronic) Asthma (Chronic) Bipolar disorder (Chronic) Depression (Chronic) Eustachian tube dysfunction (Chronic) GERD (gastroesophageal reflux disease) (Chronic) Hepatitis (Chronic) Herpes simplex with unspecified complication (Chronic) Hyperlipidemia (Chronic) Hypertension (Chronic) Long-term use of high-risk medication (Chronic) Mild dilation of ascending aorta (Chronic) Mild mitral regurgitation (Chronic) Nephrolithiasis (Chronic) Nightmares (Chronic) OCD (obsessive compulsive disorder) (Chronic) TROY (obstructive sleep apnea) (Chronic) Obesity (Chronic) Paroxysmal atrial tachycardia (Chronic) Rhinorrhea (Chronic) Segmental and somatic dysfunction of cervical region (Chronic) Segmental and somatic dysfunction of thoracic region (Chronic) Spinal stenosis of lumbar region (Chronic) Thoracic aortic aneurysm without rupture (Chronic) Surgical History H/O eye surgery (Resolved) H/O hand surgery (Resolved) H/O: hysterectomy (Resolved) History of appendectomy (Resolved) History of bilateral carpal tunnel release (Resolved) History of total right knee replacement (Resolved) Hx laparoscopic cholecystectomy (Resolved) bladder sling removal (Resolved) Family History Father Cancer Mother Heart disease H/O weight disorder Sister Hypertension Social History Smoking Status: Former smoker quit date: 08/29/82 pack-years: 15 second hand exposure: No alcohol intake: never substance use type: does not use Review of Systems Const CONSTITUTIONAL: Positive fatigue; negative anorexia, body ache, chills, daytime sleepiness, fever(s), night sweats, oral thrush, stops breathing during sleep, weight loss, sleeping in chair, weight loss, weight gain, frequent colds, seasonal allergies, other, headache(s) or orthopnea EETM Ear Nose Throat Mouth: Positive hearing normal; negative hard of hearing, hoarseness, dry mouth in morning, change in vision, itchy eyes, eye pain, swallowing Difficulty, ear pain, nose bleed, headache(s), mouth pain, nasal congestion, nasal discharge, post nasal drip, sinus pain, sinus pressure, sore throat or other Cardio Cardiovascular: Negative chest pain, chest pain at rest, chest pain with activity, irregular heart rhythm, edema, shortness of breath when lying down, palpitations, murmur or other Resp Respiratory: Positive as per HPI and shortness of breath shortness of breath: Positive with activity; negative pain with cough, wheezing, chest congestion, cough, chest tightness, pain on inspiration, inhalers, increase use of rescue inhalers, snoring, apnea or other Gastro Gastrointestional: Negative bloody stools, change in appetite, difficulty swallowing, reflux, hematemesis, melena stool, loose stool, constipation or other Genitourinary: Negative blood in urine, nocturia, pain with urination or other Musc Musculoskeletal: Positive other (bola ankle pain ); negative body pain, back pain or neck pain Skin/Breast Skin/Breast: Negative dry skin, itching, rash, unusual bruising, breast lump or other Neuro Neurological: Negative restless legs, confusion, weakness or other Psych Psychocological: Negative abnormal sleep pattern, anxiety, thoughts of hurting self/others, hopelessness or other Lymph Lymphatic: Negative easy bleeding, easy bruising, swollen lymph nodes or other Exam Const Constitutional: Positive conversant, cooperative, in no acute respiratory distress, healthy appearing, well developed, well nourished, good hygiene and obese Head Head: Positive normocephalic and atraumatic; negative cyanosis of lips/distal nose Eyes Eye: Positive clear conjunctiva and nystagmus; negative scleral abnormality Ears Ear: Positive hearing normal and external ears normal; negative hard of hearing Nose Nose: Positive external nose normal and no nasal discharge; negative epistaxis Mouth Mouth: Positive oral mucosae normal, malodorous breath, no lesions, crowded posterior oropharynx and dentures; negative post nasal drip or oral thrush present Mallampati Score: III: Mallampati Score Neck Neck: Positive normal visual inspection, full ROM and trachea midline; negative lymphadenopathy, JVD or tender Chest Wall Chest: Positive normal inspection of the chest and symmetric chest movement; negative increased A/P diameter Resp lung sounds: Positive clear to auscultation, good air exchange, normal expiratory time and normal respiratory effort; negative diminished, wheezes, rhonchi, rales, dullness to percussion or wheeze present on forced exhalation Cardio Cardiac: Positive regular rate, regular rhythm, S1 normal and S2 normal; negative murmur GI GI: Positive normal to inspection, normal bowel sounds and obese; negative distended Genitourinary: Positive deferred [facility] Musculoskeletal: Positive steady gait and ROM normal; negative kyphosis or scoliosis Skin Pulmonary Skin Exam: Positive intact; negative rash, lesion, ulcers, erythema, scaly or dermal atrophy Pulses Pulse: Yes pulses normal x4 extremities Extremities Extremities: Yes capillary refill normal, No clubbing, No cyanosis, No edema Neuro Neurologic: Yes conversant, Yes no focal neuro deficits, Yes cooperative, Yes normal cognition, Yes normal coordination, Yes understands questions Lymph Lymphatic: No lymphadenopathy, No tenderness, No cervical adenopathy, No axillary adenopathy Psych Appearance: Positive grossly normal, eye contact and well kempt Mental Status: Positive mental status grossly normal Mood: Positive manic mood Affect: Positive euphoric affect Coding Level of Care Code Off vis,est,level 3 Diagnoses PND (post-nasal drip) R09.82 Mild intermittent asthma in adult without complication J45.20 11/17/17 0914 <Electronically signed by Angélica Marcelino NP-C> Date Angélica Marcelino ASSIGNMENT DESK EDITOR-C Cosigner Signature: Date (if applicable) CC: Bay Ramos DO, CNPN Observed: 11/09/2017 Status: COMPLETED Source: [place] 12:00 AM [facility] REPOSITORY Telephone (ORTHBE) WINTER JOY ([id number]) 1955 F Date Time Provider Department 11/09/17 GÉNESIS HINES During your visit today, we recorded the following information about you: Tong Nguyen PSR 11/09/2017 10:31 AM Signed Winter Joy is calling Génesis Hines MD today to request her most recent lab results Patient has been identified by name and birthdate. Duration of symptoms: N/A Person calling: self Call patient at: at home [phone] (home) [phone] (cell) Was an appointment scheduled: No Closing statement: Results or non-symptom based questions: Thank you for calling [facility], your call will be returned within the next business day. Tong Nguyen PSR Yaquelin Loyola RN 11/09/2017 10:[address] Hines - please review labs done on 11/04/17 and advise. Thank you. Yaquelin Hines MD 11/09/2017 2:53 PM Signed Please let her know her labs look good and are unchanged from previous. Thanks! MD Yaquelin Srinivasan RN 11/09/2017 2:58 PM Signed Patient given information below and verbalized understanding. Yaquelin Loyola RN Allergies As of Date: 11/09/2017 Noted Allergy Reaction ULTRAM (TRAMADOL HCL) 03/06/2014 9 - Itching Comments: Severe itching,rash BEES 05/10/2007 CORTISONE 07/07/2005 5 - Intolerance MELOXICAM 12/11/2007 9 - Itching PERCOCET (OXYCODONE-ACETAMINOPHEN)01/09/2009 9 - Itching PREDNISONE 12/11/2008 SHELLFISH 02/16/2006 TALWIN (PENTAZOCINE LACTATE) 02/16/2006 Date Reviewed: 11/04/2017 Reviewed by: Clau Garcia Ma - Fully Assessed Reason for Visit: Results [95] Prescriptions as of 11/09/2017 Sig: BUTRANS 5 MCG/HOUR TRANSDERMA* IPRATROPIUM BROMIDE 0.03 % NA* TRIAMCINOLONE ACETONIDE 0.1 %* Apply 1 application to affect* KETOCONAZOLE 2 % TOPICAL CREAM Apply 1 application to affect* AMLODIPINE 10 MG TABLET Take 10 mg by mouth once rakesh* BENZONATATE 100 MG CAPSULE Take 100 mg by mouth three ti* KETOCONAZOLE 2 % TOPICAL CREAM Apply 1 application to affect* ALL DAY ALLERGY (CETIRIZINE) * CYCLOBENZAPRINE 5 MG TABLET DICLOFENAC 1 % TOPICAL GEL TROSPIUM ER 60 MG CAPSULE,EXT* Take 1 capsule by mouth once * FLURAZEPAM 15 MG CAPSULE Take 15 mg by mouth at bedtim* HYDROCODONE 5 MG-ACETAMINOPHE* Take 1 tablet by mouth every * HYDROCHLOROTHIAZIDE 12.5 MG T* Take 25 mg by mouth once rakesh* OMEPRAZOLE 20 MG CAPSULE,DEMARCUS* Take 20 mg by mouth once rakesh* LISINOPRIL 10 MG TABLET Take 10 mg by mouth once rakesh* POTASSIUM CHLORIDE ER 20 MEQ * Take 20 mEq by mouth twice da* DULOXETINE 30 MG CAPSULE,DEMARCUS* Take 30 mg by mouth twice johnathan* EPINEPHRINE 0.3 MG/0.3 ML INJ* Inject 0.3 mg intramuscularly* ESTRADIOL 2 MG TABLET Take 2 mg by mouth once daily. 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 CAVUS DEFORMITY OF FOOT [M21.6X9] INVALID FOR* OTHER HAMMER TOE [M20.40] INVALID FOR* PAIN IN LIMB [M79.609] INVALID FOR* Unspecified Cellulitis and Abscess of Toe [L03.*INVALID FOR* Unspecified Asthma [J45.909] More... Hematoma [T14.8XXA] INVALID FOR* Exostosis of Unspecified Site [M89.8X9] INVALID FOR* Sprain and strain of unspecified site of foot [*INVALID FOR* Allergic reaction to bee sting [T63.441A] INVALID FOR* Porokeratosis [Q82.8] INVALID FOR* Tendonitis [M77.9] INVALID FOR* Capsulitis [M77.9] INVALID FOR* Abnormality of gait [R26.9] INVALID FOR* L-S radiculopathy [M54.17] INVALID FOR* Hypokalemia [E87.6] INVALID FOR* OCD (obsessive compulsive disorder) [F42.9] INVALID FOR* Insomnia [G47.00] INVALID FOR* Hyperlipidemia [E78.5] INVALID FOR* Abdominal pain [R10.9] INVALID FOR* More... Obesity (BMI 30-39.9) [E66.9] INVALID FOR* More... Right flank pain [R10.9] INVALID FOR* Kidney stones [N20.0] INVALID FOR* Erosion of bladder suspension mesh (HCC) [T83.7*INVALID FOR* Elevated LFTs [R79.89] Encounter Status:Closed by GÉNESIS HINES MD on 11/09/17 C3 COMPLEMENT Collected: 11/04/2017 Status: F Source: [place] 3:17 [facility] REPOSITORY TYPE CODE TESTS RESULT OUT OF REFERENCE UNITS RANGE LAB C3COMP 86-166 mg/dL C3 High Complement 168 Performed By: #### C3COMP, C4COMP, RF, SEPG, MPASRM #### [facility] [address] [address] C4 COMPLEMENT Collected: 11/04/2017 Status: F Source: [place] 3:[address] [place] [address] REPOSITORY TYPE CODE TESTS RESULT OUT OF REFERENCE UNITS RANGE LAB C4COMP 13-46 mg/dL C4 Complement 30 Performed By: #### C3COMP, C4COMP, RF, SEPG, MPASRM #### [facility] [employer] [address] [address] RHEUMATOID FACTOR Collected: 11/04/2017 Status: F Source: [place] 3:[address] [place] [address] REPOSITORY TYPE CODE TESTS RESULT OUT OF REFERENCE UNITS RANGE LAB RF <16 IU/mL High Rheumatoid 49 Factor Performed By: #### C3COMP, C4COMP, RF, SEPG, MPASRM #### [facility] [address] [address] PROTEIN ELECTROPHOR. Collected: 11/04/2017 Status: F Source: [place] 3:[address] [place] [address] REPOSITORY TYPE CODE TESTS RESULT OUT OF REFERENCE UNITS RANGE LAB TPSPE 6.0-8.4 g/dL Total Protein, SPE 7.6 LAB ALBE 3.37-4.23 gm/dL Albumin 3.89 LAB A1GL 0.18-0.31 gm/dL Alpha 1 Globulin 0.26 LAB A2GL 0.52-0.97 gm/dL Alpha 2 Globulin 0.83 LAB BEGL 0.84-1.36 gm/dL Beta Globulin 1.12 LAB GAGL 0.70-1.44 gm/dL Gamma Globulin High 1.50 LAB SPEINT Interpretation SEE COMMENT Result Comment: No definitive M protein is identified on protein electrophoresis. LAB LOC M Protein N/A Location LAB GPERDL 0.00 gm/dL M Rainer 0.00 Concentratn LAB SPESTF SPE Staff Review Reviewed by Marixa Chase MD ([id number]) Performed By: #### C3COMP, C4COMP, RF, SEPG, MPASRM #### [facility] [employer] [address] [place], [place] [address] MONOCLONL PROTEIN,BL Collected: 11/04/2017 Status: F Source: [place] 3:17 PM [facility] REPOSITORY TYPE CODE TESTS RESULT OUT OF REFERENCE UNITS RANGE LAB MPAIGG 717-1411 mg/dL MPA Serum 1400 IgG LAB MPAIGA 78-391 mg/dL Low 56 MPA Serum IgA LAB MPAIGM 53-334 mg/dL 82 MPA Serum IgM LAB MPAK 534-1267 mg/dL Serum [address] [place] LAB MPAL 253-653 mg/dL Serum 451 Lambda LAB MPAKL 1-3 MPA 2.62 Sylvie/Funk Ratio LAB MPAR No M protein is identified. No MPA M protein is Result identified. LAB MPASTF Staff Reviewed by Review Marixa Chase MD ([id number]) Performed By: #### C3COMP, C4COMP, RF, SEPG, MPASRM #### [facility] [employer] [address] [place], [place] [address] CNOV Observed: 11/04/2017 Status: COMPLETED Source: [place] 2:10 PM [facility] REPOSITORY Office Visit (CASSIE) WINTER JOY ([id number]) 1955 F Date Time Provider Department 11/04/17 2:10 PM GÉNESIS HINES During your visit today, we recorded the following information about you: Pulse Blood pressure 76/minute 128/87 Génesis Hines MD 11/04/2017 2:58 PM Signed RHEUMATOLOGY CLINIC November 04, 2017 Follow-up: Sjogren's syndrome +FLAKITA (1:1280 and +SSA), +RF - dry mouth Last visit: March 04, 2017 CHIEF COMPLAINT: Dryness of her mouth doesn't bother her too much. She is able to eat anything she wants. She doesn't feel that she has dryness of her eyes. She continues to have persistent cough but does see a milling/polishing operator regularly for PFT's and an underlying diagnosis of asthma. Today she is complaining of flank pain on the right side which she says has been going on for at least a year. Started out as an annoying pain but has worsened over the last 6 months. Her GB has been removed. She thinks that stress and overdoing it aggravate the pain. She takes lance back and body which does help, but aggravates her stomach. She has been following with pain management. Dryness of mouth is not bothering her. Primarily she is complaining of exhaustion. No unintentional weight loss, no fevers, chills, night sweats. November 04, 2017 - she remains exhausted all the time. She does have chills but denies fevers. No weight loss. Legs are constantly falling asleep. She has been diagnosed with TROY years ago but she admits to refusing to use the PCP. She has some mild dryness of her mouth which doesn't bother her. She has full set of dentures. RHEUMATOLOGIC REVIEW OF SYSTEMS: no ulcers in mouth or nose no photosensenitivity no history of blood clots 2 miscarriages (3 healthy pregnancies) + fatigue ? history of Raynaud's no fevers no bright red painful eyes + sicca - xerostomia only no sob + cough no diarrhea, no constipation + chronic back pain no history of psoriasis no morning stiffness + weight loss + neuropathy PAST MEDICAL HISTORY: PAST MEDICAL HISTORY Diagnosis Date - Adjustment disorder with depressed mood - Bipolar disorder, unspecified (HCC) - Depression seeing counselor - Elevated LFTs - Esophageal reflux - Essential hypertension, benign - Hypertensive heart and kidney disease, benign - Pap smear for cervical cancer screening Dr. Thomas - PTSD (post-traumatic stress disorder) seeing counselor - Unspecified asthma(493.90) Asthma Unspecified SOCIAL HISTORY: Social History Substance Use Topics - Smoking status: Former Smoker Packs/day: 4.00 Years: 15.00 Types: Cigarettes Quit date: 03/29/1983 - Smokeless tobacco: Never Used - Alcohol use No doesn't smoke or drink EtOH She is on disability since 1993 MEDICATIONS: triamcinolone acetonide (KENALOG) 0.1 % cream Apply 1 application to affected area twice daily. ketoconazole (NIZORAL) 2 % cream Apply 1 application to affected area once daily. amLODIPine (NORVASC) 10 mg tablet Take 10 mg by mouth once daily. benzonatate (TESSALON PERLE) 100 mg capsule Take 100 mg by mouth three times daily as needed. ketoconazole (NIZORAL) 2 % cream Apply 1 application to affected area once daily. ALL DAY ALLERGY 10 mg tablet cyclobenzaprine (FLEXERIL) 5 mg tablet diclofenac sodium (VOLTAREN) 1 % topical gel Trospium (SANCTURA SR) 60 mg cp24 Take 1 capsule by mouth once daily. Take in the morning with a full glass of water. flurazepam HCl (DALMANE) 15 mg capsule Take 15 mg by mouth at bedtime as needed. HYDROcodone-acetaminophen (NORCO) 5-325 mg per tablet Take 1 tablet by mouth every 8 hours as needed. hydroCHLOROthiazide (HYDRODIURIL, ESIDRIX) 12.5 mg tablet Take 12.5 mg by mouth once daily. omeprazole (PRILOSEC) 20 mg capsule Take 20 mg by mouth once daily. lisinopril (ZESTRIL, PRINIVIL) 10 mg tablet Take 10 mg by mouth once daily. potassium chloride ER (K-DUR, KLOR-CON) 20 mEq tablet Take 20 mEq by mouth twice daily. DULoxetine (CYMBALTA) 30 mg capsule Take 30 mg by mouth twice daily. EPINEPHrine (EPIPEN) 0.3 mg/0.3 mL (1:1,000) atIn Inject 0.3 mg intramuscularly as needed. for bee stings. estradiol (ESTRACE) 2 mg tablet Take 2 mg by mouth once daily. albuterol HFA (PROAIR HFA) 90 mcg/actuation inhaler Inhale 2 Puffs as instructed as needed for Wheezing/Shortness of Breath. PHYSICAL EXAM: BP 128/87 (BP Site: Right Arm, BP Position: Sitting, BP Cuff Size: Large Adult) Pulse 76 Alert well-appearing, in no distress No conjunctivitis or scleritis Oral mucosa appears dry, there is decreased salivary pooling No cervical lymphadenopathy, no parotid enlargement Lungs are clear bilaterally nml s1, s2 no audible murmurs abd is soft and non-distended, audible bowel sounds No peripheral edema Strength exam is normal MSK: no synovitis Labs/Imaging: Component Latest Ref Rng 04/21/2016 Protein, Total 6.0 - 8.4 g/dL 7.8 Albumin 3.5 - 5.0 g/dL 4.1 Calcium 8.5 - 10.5 mg/dL 9.1 Bilirubin, Total 0.0 - 1.5 mg/dL 0.3 Alkaline Phosphatase 40 - 150 U/L 93 AST 7 - 40 U/L 23 Glucose 65 - 100 mg/dL 83 BUN 8 - 25 mg/dL 16 Creatinine 0.70 - 1.40 mg/dL 0.80 Sodium 132 - 148 mmol/L 131 (L) Potassium 3.5 - 5.0 mmol/L 3.9 Chloride 98 - 110 mmol/L 93 (L) CO2 23 - 32 mmol/L 24 Anion Gap 0 - 15 mmol/L 14 ALT 0 - 45 U/L 9 eGFR- ANDgt;60 eGFR-All Other Races ANDgt;60 Sm Antibody ANDlt;1.0 AI ANDlt;0.2 SQE Antibody ANDlt;1.0 AI ANDlt;0.2 SSA Antibody ANDlt;1.0 AI ANDgt;8.0 (H) SSB Antibody ANDlt;1.0 AI ANDlt;0.2 Centromere Ab ANDlt;1.0 AI ANDlt;0.2 Scleroderma Ab, IgG ANDlt;1.0 AI ANDlt;0.2 Natalya 1 Antibody ANDlt;1.0 AI ANDlt;0.2 Ribosomal SQE ANDlt;1.0 AI ANDlt;0.2 Chromatin Antibody ANDlt;1.0 AI ANDlt;0.2 FLAKITA Negative Positive (A) FLAKITA Titer Negative Greater than 1:1280 (A) FLAKITA Pattern Speckled DNA Antibody w/Confirmation ANDlt;30 IU/mL ANDlt;12 Component Latest Ref Rng 05/18/2016 Protein, Total 6.0 - 8.4 g/dL 8.2 Albumin for SPE 3.37 - 4.23 gm/dL 3.95 Alpha 1 Globulin 0.18 - 0.31 gm/dL 0.29 Alpha 2 Globulin 0.52 - 0.97 gm/dL 1.03 (H) Beta Globulin 0.84 - 1.36 gm/dL 1.31 Gamma Globulin 0.70 - 1.44 gm/dL 1.62 (H) Interpretation (Prot Electro) SEE COMMENT M-Protein Location N/A M-Protein Concentration 0.00 gm/dL 0.00 SPE Staff Review Reviewed by Lencho Thomson MD ([id number]) CRP 0.0 - 1.0 mg/dL 1.1 (H) WSR 0 - 15 mm/hr 13 CK 30 - 220 U/L 131 Rheumatoid Factor ANDlt;20 IU/mL 67 (H) C4 12 - 46 mg/dL 38 C3 68 - 260 mg/dL 193 Cryoglobulin, Qualitative NEG 72Hour NEG 72HOUR 04/19/16 UA normal: no protein, no blood Outside labs reviewed from 02/10/17 C3 156 C4 33 SPEP: No monoclonal protein is detected RF 68 IMPRESSION / VISIT DIAGNOSES: (M35.00) Sjogren's syndrome (HCC) (primary encounter diagnosis) Comment: +FLAKITA, +SSA, +RF and xerostomia - follow every 6 months as screening for lymphoma (evaluate for salivary gland enlargement, C3/C4, cryos, and lymphopenia) - we did discuss trying hydroxychloroquine for her fatigue, but she is reluctant to start any new medications - will continue to follow (R68.2) Dry mouth - discussed conservative management of mouth dryness including biotin toothpaste, frequent sips of water, OTC saliva producting supplements - consider pilocarpine in the future, although given her medication sensitivities I don't know if she'd tolerate it FOLLOW-UP: 6 months Génesis Hines MD Rheumatology Staff Pager [phone] Referring Provider: SELF [[id number]] Allergies As of Date: 11/04/2017 Noted Allergy Reaction ULTRAM (TRAMADOL HCL) 03/06/2014 9 - Itching Comments: Severe itching,rash BEES 05/10/2007 CORTISONE 07/07/2005 5 - Intolerance MELOXICAM 12/11/2007 9 - Itching PERCOCET (OXYCODONE-ACETAMINOPHEN)01/09/2009 9 - Itching PREDNISONE 12/11/2008 SHELLFISH 02/16/2006 TALNAY (PENTAZOCINE LACTATE) 02/16/2006 Date Reviewed: 11/04/2017 Reviewed by: Clau Garcia Ma - Fully Assessed Reason for Visit: Sjogren's Disease [2106] Primary Visit Diagnosis:Sjogren's syndrome, with unspecified organ involvement (HCC) [M35.00] Other Visit Diagnosis:Dry mouth [R68.2] Prescriptions as of 11/04/2017 Sig: BUTRANS 5 MCG/HOUR TRANSDERMA* IPRATROPIUM BROMIDE 0.03 % NA* TRIAMCINOLONE ACETONIDE 0.1 %* Apply 1 application to affect* KETOCONAZOLE 2 % TOPICAL CREAM Apply 1 application to affect* AMLODIPINE 10 MG TABLET Take 10 mg by mouth once rakesh* KETOCONAZOLE 2 % TOPICAL CREAM Apply 1 application to affect* ALL DAY ALLERGY (CETIRIZINE) * CYCLOBENZAPRINE 5 MG TABLET DICLOFENAC 1 % TOPICAL GEL HYDROCHLOROTHIAZIDE 12.5 MG T* Take 25 mg by mouth once rakesh* OMEPRAZOLE 20 MG CAPSULE,DEMARCUS* Take 20 mg by mouth once rakesh* LISINOPRIL 10 MG TABLET Take 10 mg by mouth once rakesh* POTASSIUM CHLORIDE ER 20 MEQ * Take 20 mEq by mouth twice da* DULOXETINE 30 MG CAPSULE,DEMARCUS* Take 30 mg by mouth twice johnathan* EPINEPHRINE 0.3 MG/0.3 ML INJ* Inject 0.3 mg intramuscularly* ESTRADIOL 2 MG TABLET Take 2 mg by mouth once daily. ALBUTEROL SULFATE HFA 90 MCG/* Inhale 2 Puffs as instructed * BENZONATATE 100 MG CAPSULE Take 100 mg by mouth three ti* TROSPIUM ER 60 MG CAPSULE,EXT* Take 1 capsule by mouth once * FLURAZEPAM 15 MG CAPSULE Take 15 mg by mouth at bedtim* HYDROCODONE 5 MG-ACETAMINOPHE* Take 1 tablet by mouth every * Medication notes this encounter BUTRANS 5 MCG/HOUR TRANSDERMAL PATCH >> Clau Garcia Ma 11/04/2017 1:54 PM >> CLAU GARCIA MA Nov 04, 2017 1:54 PM Received from: External Pharmacy IPRATROPIUM BROMIDE 0.03 % NASAL SPRAY >> Clau Garcia Ma 11/04/2017 1:54 PM >> CLAU GARCIA MA Nov 04, 2017 1:54 PM Received from: External Pharmacy BENZONATATE 100 MG CAPSULE >> Clau Garcia Ma 11/04/2017 1:55 PM >> CLAU GARCIA MA Nov 04, 2017 1:55 PM Not taking HYDROCODONE 5 MG-ACETAMINOPHEN 325 MG TABLET >> Clau Garcia Ma 11/04/2017 1:55 PM >> CLAU GARCIA MA Nov 04, 2017 1:55 PM Not taking Problem List As Of Date 11/04/2017 Noted Resolved ROBY HYPERT HRT/RENAL DIS [404.1] OLD FB IN SOFT TISSUE [M79.5] INVALID FOR* ONYCHIA OF TOE [L03.039] INVALID FOR* CALCANEAL SPUR [M77.30] INVALID FOR* ACHILLES TENDINITIS [M76.60] INVALID FOR* BENIGN HYPERTENSION [I10] BIPOLAR DISORDER NOS [F31.9] ESOPHAGEAL REFLUX [K21.9] ADOLPH'S SYNDROME [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 CAVUS DEFORMITY OF FOOT [M21.6X9] INVALID FOR* OTHER HAMMER TOE [M20.40] INVALID FOR* PAIN IN LIMB [M79.609] INVALID FOR* Unspecified Cellulitis and Abscess of Toe [L03.*INVALID FOR* Unspecified Asthma [J45.909] More... Hematoma [T14.8XXA] INVALID FOR* Exostosis of Unspecified Site [M89.8X9] INVALID FOR* Sprain and strain of unspecified site of foot [*INVALID FOR* Allergic reaction to bee sting [T63.441A] INVALID FOR* Porokeratosis [Q82.8] INVALID FOR* Tendonitis [M77.9] INVALID FOR* Capsulitis [M77.9] INVALID FOR* Abnormality of gait [R26.9] INVALID FOR* L-S radiculopathy [M54.17] INVALID FOR* Hypokalemia [E87.6] INVALID FOR* OCD (obsessive compulsive disorder) [F42.9] INVALID FOR* Insomnia [G47.00] INVALID FOR* Hyperlipidemia [E78.5] INVALID FOR* Abdominal pain [R10.9] INVALID FOR* More... Obesity (BMI 30-39.9) [E66.9] INVALID FOR* More... Right flank pain [R10.9] INVALID FOR* Kidney stones [N20.0] INVALID FOR* Erosion of bladder suspension mesh (HCC) [T83.7*INVALID FOR* Elevated LFTs [R79.89] Encounter Status:Closed by GÉNESIS HINES MD on 11/04/17 PROGRESS Observed: 11/04/2017 Status: COMPLETED Source: [place] 1:44 PM [facility] REPOSITORY HNO ID: [id number] Author: Génesis Hines Service: (none) Author Type: Physician Type: Progress Notes Filed: 11/04/2017 2:58 PM Note Text: RHEUMATOLOGY CLINIC November 04, 2017 Follow-up: Sjogren's syndrome +FLAKITA (1:1280 and +SSA), +RF - dry mouth Last visit: March 04, 2017 CHIEF COMPLAINT: Dryness of her mouth doesn't bother her too much. She is able to eat anything she wants. She doesn't feel that she has dryness of her eyes. She continues to have persistent cough but does see a milling/polishing operator regularly for PFT's and an underlying diagnosis of asthma. Today she is complaining of flank pain on the right side which she says has been going on for at least a year. Started out as an annoying pain but has worsened over the last 6 months. Her GB has been removed. She thinks that stress and overdoing it aggravate the pain. She takes lance back and body which does help, but aggravates her stomach. She has been following with pain management. Dryness of mouth is not bothering her. Primarily she is complaining of exhaustion. No unintentional weight loss, no fevers, chills, night sweats. November 04, 2017 - she remains exhausted all the time. She does have chills but denies fevers. No weight loss. Legs are constantly falling asleep. She has been diagnosed with TROY years ago but she admits to refusing to use the PCP. She has some mild dryness of her mouth which doesn't bother her. She has full set of dentures. RHEUMATOLOGIC REVIEW OF SYSTEMS: no ulcers in mouth or nose no photosensenitivity no history of blood clots 2 miscarriages (3 healthy pregnancies) + fatigue ? history of Raynaud's no fevers no bright red painful eyes + sicca - xerostomia only no sob + cough no diarrhea, no constipation + chronic back pain no history of psoriasis no morning stiffness + weight loss + neuropathy PAST MEDICAL HISTORY: PAST MEDICAL HISTORY Diagnosis Date - Adjustment disorder with depressed mood - Bipolar disorder, unspecified (HCC) - Depression seeing counselor - Elevated LFTs - Esophageal reflux - Essential hypertension, benign - Hypertensive heart and kidney disease, benign - Pap smear for cervical cancer screening Dr. Thomas - PTSD (post-traumatic stress disorder) seeing counselor - Unspecified asthma(493.90) Asthma Unspecified SOCIAL HISTORY: Social History Substance Use Topics - Smoking status: Former Smoker Packs/day: 4.00 Years: 15.00 Types: Cigarettes Quit date: 03/29/1983 - Smokeless tobacco: Never Used - Alcohol use No doesn't smoke or drink EtOH She is on disability since 1993 MEDICATIONS: triamcinolone acetonide (KENALOG) 0.1 % cream Apply 1 application to affected area twice daily. ketoconazole (NIZORAL) 2 % cream Apply 1 application to affected area once daily. amLODIPine (NORVASC) 10 mg tablet Take 10 mg by mouth once daily. benzonatate (TESSALON PERLE) 100 mg capsule Take 100 mg by mouth three times daily as needed. ketoconazole (NIZORAL) 2 % cream Apply 1 application to affected area once daily. ALL DAY ALLERGY 10 mg tablet cyclobenzaprine (FLEXERIL) 5 mg tablet diclofenac sodium (VOLTAREN) 1 % topical gel Trospium (SANCTURA SR) 60 mg cp24 Take 1 capsule by mouth once daily. Take in the morning with a full glass of water. flurazepam HCl (DALMANE) 15 mg capsule Take 15 mg by mouth at bedtime as needed. HYDROcodone-acetaminophen (NORCO) 5-325 mg per tablet Take 1 tablet by mouth every 8 hours as needed. hydroCHLOROthiazide (HYDRODIURIL, ESIDRIX) 12.5 mg tablet Take 12.5 mg by mouth once daily. omeprazole (PRILOSEC) 20 mg capsule Take 20 mg by mouth once daily. lisinopril (ZESTRIL, PRINIVIL) 10 mg tablet Take 10 mg by mouth once daily. potassium chloride ER (K-DUR, KLOR-CON) 20 mEq tablet Take 20 mEq by mouth twice daily. DULoxetine (CYMBALTA) 30 mg capsule Take 30 mg by mouth twice daily. EPINEPHrine (EPIPEN) 0.3 mg/0.3 mL (1:1,000) atIn Inject 0.3 mg intramuscularly as needed. for bee stings. estradiol (ESTRACE) 2 mg tablet Take 2 mg by mouth once daily. albuterol HFA (PROAIR HFA) 90 mcg/actuation inhaler Inhale 2 Puffs as instructed as needed for Wheezing/Shortness of Breath. PHYSICAL EXAM: BP 128/87 (BP Site: Right Arm, BP Position: Sitting, BP Cuff Size: Large Adult) Pulse 76 Alert well-appearing, in no distress No conjunctivitis or scleritis Oral mucosa appears dry, there is decreased salivary pooling No cervical lymphadenopathy, no parotid enlargement Lungs are clear bilaterally nml s1, s2 no audible murmurs abd is soft and non-distended, audible bowel sounds No peripheral edema Strength exam is normal MSK: no synovitis Labs/Imaging: Component Latest Ref Rng 04/21/2016 Protein, Total 6.0 - 8.4 g/dL 7.8 Albumin 3.5 - 5.0 g/dL 4.1 Calcium 8.5 - 10.5 mg/dL 9.1 Bilirubin, Total 0.0 - 1.5 mg/dL 0.3 Alkaline Phosphatase 40 - 150 U/L 93 AST 7 - 40 U/L 23 Glucose 65 - 100 mg/dL 83 BUN 8 - 25 mg/dL 16 Creatinine 0.70 - 1.40 mg/dL 0.80 Sodium 132 - 148 mmol/L 131 (L) Potassium 3.5 - 5.0 mmol/L 3.9 Chloride 98 - 110 mmol/L 93 (L) CO2 23 - 32 mmol/L 24 Anion Gap 0 - 15 mmol/L 14 ALT 0 - 45 U/L 9 eGFR- >60 eGFR-All Other Races >60 Sm Antibody <1.0 AI <0.2 SQE Antibody <1.0 AI <0.2 SSA Antibody <1.0 AI >8.0 (H) SSB Antibody <1.0 AI <0.2 Centromere Ab <1.0 AI <0.2 Scleroderma Ab, IgG <1.0 AI <0.2 Natalya 1 Antibody <1.0 AI <0.2 Ribosomal SQE <1.0 AI <0.2 Chromatin Antibody <1.0 AI <0.2 FLAKITA Negative Positive (A) FLAKITA Titer Negative Greater than 1:1280 (A) FLAKITA Pattern Speckled DNA Antibody w/Confirmation <30 IU/mL <12 Component Latest Ref Rng 05/18/2016 Protein, Total 6.0 - 8.4 g/dL 8.2 Albumin for SPE 3.37 - 4.23 gm/dL 3.95 Alpha 1 Globulin 0.18 - 0.31 gm/dL 0.29 Alpha 2 Globulin 0.52 - 0.97 gm/dL 1.03 (H) Beta Globulin 0.84 - 1.36 gm/dL 1.31 Gamma Globulin 0.70 - 1.44 gm/dL 1.62 (H) Interpretation (Prot Electro) SEE COMMENT M-Protein Location N/A M-Protein Concentration 0.00 gm/dL 0.00 SPE Staff Review Reviewed by Lencho Thomson MD ([id number]) CRP 0.0 - 1.0 mg/dL 1.1 (H) WSR 0 - 15 mm/hr 13 CK 30 - 220 U/L 131 Rheumatoid Factor <20 IU/mL 67 (H) C4 12 - 46 mg/dL 38 C3 68 - 260 mg/dL 193 Cryoglobulin, Qualitative NEG 72Hour NEG 72HOUR 04/19/16 UA normal: no protein, no blood Outside labs reviewed from 02/10/17 C3 156 C4 33 SPEP: No monoclonal protein is detected RF 68 IMPRESSION / VISIT DIAGNOSES: (M35.00) Sjogren's syndrome (HCC) (primary encounter diagnosis) Comment: +FLAKITA, +SSA, +RF and xerostomia - follow every 6 months as screening for lymphoma (evaluate for salivary gland enlargement, C3/C4, cryos, and lymphopenia) - we did discuss trying hydroxychloroquine for her fatigue, but she is reluctant to start any new medications - will continue to follow (R68.2) Dry mouth - discussed conservative management of mouth dryness including biotin toothpaste, frequent sips of water, OTC saliva producting supplements - consider pilocarpine in the future, although given her medication sensitivities I don't know if she'd tolerate it FOLLOW-UP: 6 months Génesis Hines MD Rheumatology Staff Pager [phone] PULMONARY VISIT REPORT Observed: 11/03/2017 Status: F Source: [place] 11:05 AM [facility] REPOSITORY [facility] [address] [place] [address] OFFICE VISIT Date of Service: 11/03/17 MR#: [id number] Acct: [id number] Name: WINTER JOY Rep #: [id number] : 1955 Provider: Angélica Marcelino Age/Sex: 62/F Location: [facility] Status: Signed Assessment AND Plan 1. PND (post-nasal drip) R09.82 Status Acute Plan New. Will start on ipratropium bromide nasal spray to try to control the postnasal drip. Would typically utilize an inhaled steroid nasal spray, however patient reports that she cannot tolerate any type of steroid. Follow-up in 2 weeks to evaluate her response to this new medication. 2. Mild intermittent asthma in adult without complication J45.20 Status Chronic Plan She does not appear to be an exacerbation of her asthma today. No need to change maintenance medications. No additional testing at this time. Follow- up with myself in 2 weeks. Also has a follow-up scheduled routinely in December. 3. Bipolar 2 disorder F31.81 Status Chronic Plan May impact the patient's ability to be compliant with medication. 4. Obesity (BMI 30-39.9) E66.9 Status Chronic Plan Continue to encourage weight loss. Plan Detail Other Medications New: ipratropium bromide administer into each n2 sprays Intranasal BID-TID PRN allergy symp ostril; wait 30 seconds between sprays toms Follow Up 2 Weeks (CSM) HPI medication check: Chief Complaint: Cough HPI Comments Details: This patient presents the office today to discuss increasing cough frequency. Is ambulatory, and currently on room air. She reports she was last treated for an exacerbation of her asthma back in July with antibiotics but did not require prednisone. She reports allergy to any type of steroid. Her allergy that she reports that his rash and hives. She states that she is unable to even tolerate an inhaled steroid. She is currently using DuoNeb's 4 times daily, to try to control this cough. She previously was only using it 2 times daily. She has increased frequency of her DuoNeb's over the past 6-8 weeks. She reports an increase in postnasal drip. She also reports that she feels as though she has drainage that gets pop in the back of her throat. She previously was taking Mucinex which helped with the drainage but is unable to afford Mucinex at this time because it is not covered on her prescription drug. He has not tried any [id number] medications. Denies any wheezing or chest tightness. She denies any chest pain or palpitations. She denies any fever, chills or body aches. Denies any sinus pressure or ear pain. See complete review of systems. Intake Vital Signs11/03/17 Height 5 ft 3 in 11/03/17 Weight: 214 lb Intake Visit Reasons: medication check Accompanied by: Self Allergies acetaminophen [From Percocet] Allergy (Intermediate, Verified 11/03/17 09:45) Hives AND itching divalproex sodium [From Depakote] Allergy (Intermediate, Verified 11/03/17 09:45) Other - nightmares quetiapine [From Seroquel] Allergy (Mild, Verified 11/03/17 09:45) Other - shaking, lightheaded and abnormal dreams bee pollen Allergy (Verified 11/03/17 09:45) Anaphylaxis shellfish derived Allergy (Verified 11/03/17 09:45) Unknown tramadol [From Ultram] Adverse Reaction (Intermediate, Verified 11/03/17 09:45) Itching meloxicam Adverse Reaction (Verified 11/03/17 09:45) Unknown oxycodone [Oxycodone] Adverse Reaction (Verified 11/03/17 09:45) Rash bee sting Allergy (Severe, Uncoded 11/03/17 09:45) Anaphylaxis STEROIDS Allergy (Intermediate, Uncoded 11/03/17 09:45) Hives AND swelling Medications Estradiol [Estrace] 2 mg PO DAILY 09/09/13 [History Confirmed 08/13/17] Hydrochlorothiazide 12.5 mg PO DAILY 09/09/13 [History Confirmed 08/13/17] Lisinopril [Zestril] 5 mg PO DAILY 09/09/13 [History Confirmed 08/13/17] Cetirizine HCl [All Day Allergy] 10 mg PO DAILY 06/17/16 [History Confirmed 08/13/17] Duloxetine Hcl [Cymbalta] 30 mg PO BID 06/17/16 [History Confirmed 08/13/17] Epinephrine [Epi Pen] 0.3 mg IM X1 06/17/16 [History Confirmed 08/13/17] Hydrocodone Bitart/Apap 5-325 [[place] 5MG-325MG] 1 tab PO BID 06/17/16 [History Confirmed 08/13/17] Omeprazole [Prilosec] 40 mg PO DAILY 06/17/16 [History Confirmed 08/13/17] Potassium Chloride [K-Dur] 20 meq PO BID 06/17/16 [History Confirmed 08/13/17] fentanyl 25 mcg/hr transdermal patch 1 patch TRANSDERMAL Q72H 08/13/17 [History Confirmed 08/13/17] ipratropium-albuterol 0.5 mg-3 mg(2.5 mg base)/3 mL nebulization soln 3 ml INHALATION Q6H PRN ml 08/13/17 [History Confirmed 08/13/17] prazosin 1 mg capsule See Label Instructions PO QHS PRN cap 08/13/17 [History Confirmed 08/13/17] albuterol sulfate 2.5 mg/3 mL (0.083 %) solution for nebulization 2.5 mg INHALATION BID PRN #180 ml 08/18/17 [Rx Confirmed 08/18/17] albuterol sulfate HFA 90 mcg/actuation aerosol inhaler 2 puff INHALATION Q4H PRN PRN #8.5 g 08/18/17 [Rx Confirmed 08/18/17] ipratropium bromide 0.03 % nasal spray 2 spray INTRANASAL BID-TID PRN #30 ml 11/03/17 [Rx Confirmed 11/03/17] PFS Medical History Encounter for screening for malignant neoplasm of colon (Acute) Epigastric abdominal pain (Acute) Back sprain (Acute) Chest pain (Acute) Lightheadedness (Acute) Loss of appetite (Acute) Otitis media (Acute) Right flank pain (Acute) Sinusitis (Acute) Anxiety (Chronic) Asthma (Chronic) Bipolar disorder (Chronic) Depression (Chronic) Eustachian tube dysfunction (Chronic) GERD (gastroesophageal reflux disease) (Chronic) Hepatitis (Chronic) Herpes simplex with unspecified complication (Chronic) Hyperlipidemia (Chronic) Hypertension (Chronic) Long-term use of high-risk medication (Chronic) Mild dilation of ascending aorta (Chronic) Mild mitral regurgitation (Chronic) Nephrolithiasis (Chronic) Nightmares (Chronic) OCD (obsessive compulsive disorder) (Chronic) TROY (obstructive sleep apnea) (Chronic) Obesity (Chronic) Paroxysmal atrial tachycardia (Chronic) Rhinorrhea (Chronic) Segmental and somatic dysfunction of cervical region (Chronic) Segmental and somatic dysfunction of thoracic region (Chronic) Spinal stenosis of lumbar region (Chronic) Thoracic aortic aneurysm without rupture (Chronic) Surgical History H/O eye surgery (Resolved) H/O hand surgery (Resolved) H/O: hysterectomy (Resolved) History of appendectomy (Resolved) History of bilateral carpal tunnel release (Resolved) History of total right knee replacement (Resolved) Hx laparoscopic cholecystectomy (Resolved) bladder sling removal (Resolved) Family History Father Cancer Mother Heart disease H/O weight disorder Sister Hypertension Social History Smoking Status: Former smoker quit date: 08/29/82 pack-years: 15 second hand exposure: No alcohol intake: never substance use type: does not use Review of Systems Const CONSTITUTIONAL: Positive daytime sleepiness and fatigue; negative anorexia, body ache, chills, fever(s), night sweats, oral thrush, stops breathing during sleep, weight loss, sleeping in chair, weight loss, weight gain, frequent colds, seasonal allergies, other, headache(s) or orthopnea EETM Ear Nose Throat Mouth: Positive hard of hearing, dry mouth in morning and post nasal drip; negative hearing normal, hoarseness, change in vision, itchy eyes, eye pain, swallowing Difficulty, ear pain, nose bleed, headache(s), mouth pain, nasal congestion, nasal discharge, sinus pain, sinus pressure, sore throat or other Cardio Cardiovascular: Negative chest pain, chest pain at rest, chest pain with activity, irregular heart rhythm, edema, shortness of breath when lying down, palpitations, murmur or other Resp Respiratory: Positive as per HPI, shortness of breath and cough cough: Positive non-productive; negative pain with cough, wheezing, chest congestion, chest tightness, pain on inspiration, inhalers, increase use of rescue inhalers, snoring, apnea or other Gastro Gastrointestional: Negative bloody stools, change in appetite, difficulty swallowing, reflux, hematemesis, melena stool, loose stool, constipation or other Genitourinary: Negative blood in urine, nocturia, pain with urination or other Musc Musculoskeletal: Negative body pain, back pain, neck pain or other Skin/Breast Skin/Breast: Negative dry skin, itching, rash, unusual bruising, breast lump or other Neuro Neurological: Negative restless legs, confusion, weakness or other Psych Psychocological: Negative abnormal sleep pattern, anxiety, thoughts of hurting self/others, hopelessness or other Lymph Lymphatic: Negative easy bleeding, easy bruising, swollen lymph nodes or other Exam Const Constitutional: Positive conversant, cooperative, in no acute respiratory distress, healthy appearing, well developed, well nourished, good hygiene and obese Head Head: Positive normocephalic and atraumatic; negative cyanosis of lips/distal nose Eyes Eye: Positive clear conjunctiva and nystagmus; negative scleral abnormality Ears Ear: Positive hard of hearing and external ears normal; negative hearing normal Nose Nose: Positive external nose normal and no nasal discharge; negative epistaxis Mouth Mouth: Positive post nasal drip, oral mucosae normal, no lesions, good dentition and posterior oropharynx is adequate; negative malodorous breath or oral thrush present Mallampati Score: II: Mallampati Score Neck Neck: Positive normal visual inspection, full ROM, trachea midline, thick neck and female neck greater than 37 cm (15 in); negative lymphadenopathy, JVD or tender Chest Wall Chest: Positive normal inspection of the chest and symmetric chest movement; negative increased A/P diameter Resp lung sounds: Positive clear to auscultation, diminished, normal expiratory time and normal respiratory effort; negative wheezes, wheeze present on forced exhalation, rhonchi, dullness to percussion or rales Cardio Cardiac: Positive regular rate, regular rhythm, S1 normal and S2 normal; negative murmur GI GI: Positive normal to inspection, normal bowel sounds and obese; negative distended Genitourinary: Positive deferred Musc Musculoskeletal: Positive steady gait and ROM normal; negative kyphosis or scoliosis Skin Pulmonary Skin Exam: Positive intact; negative rash, lesion, ulcers, erythema, scaly or dermal atrophy Pulses Pulse: Yes pulses normal x4 extremities Extremities Extremities: Yes capillary refill normal, No clubbing, No cyanosis, No edema, No stasis dermatitis Neuro Neurologic: Yes conversant, Yes no focal neuro deficits, Yes cooperative, Yes normal cognition, Yes normal coordination, Yes normal concentration, Yes understands questions Lymph Lymphatic: No lymphadenopathy, No tenderness, No cervical adenopathy, No axillary adenopathy Psych Appearance: Positive grossly normal, eye contact and well kempt Mental Status: Positive mental status grossly normal Mood: Positive anxious mood Affect: Positive anxious affect Coding Level of Care Code Off vis,est,level 3 Diagnoses PND (post-nasal drip) R09.82 Mild intermittent asthma in adult without complication J45.20 Bipolar 2 disorder F31.81 Obesity (BMI 30-39.9) E66.9 11/03/17 1105 <Electronically signed by Angélica Marcelino ASSIGNMENT DESK EDITOR-C> Date Angélica Marcelino ASSIGNMENT DESK EDITOR-C Cosigner Signature: Date (if applicable) CC: Bay Ramos DO PT D/C SUMMARY (1) Observed: 10/10/2017 Status: F Source: [place] 10:33 AM [facility] REPOSITORY [facility] [address] [place] [address]. [address] [place] [address] Fax REHABILITATION SERVICES DISCHARGE SUMMARY MR#: [id number] Acct: [id number] Name: WINTER JOY Rep #: [id number] : 1955 62 From: Samy Jade PT, ATC Referring Dr.: HARPREET Gandhi Status: REG R Insurance: [facility] - PT D/C Summary It has been my pleasure to treat WINTER JOY under orders from Isi Gandhi DPM, for the diagnosis of Right ankle instability for a total of 9 visit(s). Discharge Date: Please see the following information for a summary of their discharge status. - Subjective Subjective: Pt reports she just saw her Dr, and he is referring her to an orthopedic surgeon secondary to lack of progress - Pain Right Ankle Pain Intensity (Out of 10): 9 - Objective Objective/Function: No falls over the past 2 weeks. R ankle strength 5/5. Pt is I with HEP. Pt is unable to hold a SLS for greater than 3 seconds. Pt has achieved all Rx goals with the exception of increased balance. Pain is severe this date - Goals Goal 1:: Patient will be I with HEP and progression Goal Progress: Goal Met Goal 2:: Patient will SLS for 10 sec without LOB on the right LE Goal Progress: Progressing Goal 3:: Patient will demo 5/5 strength in LE where deficit to ease ADL's. Goal Progress: Goal Met Goal 4:: Patient will report no falls for 2 weeks Goal Progress: Goal Met - Plan Plan: Discontinue - D/C Information If there are questions or concerns regarding this patient's physical therapy, please feel free to call me at [phone]. Thank you for the referral of this patient. Sincerely, Samy Jade, PT, <Electronically signed by Samy Jade PT, ATC> 10/10/17 1033 CC: HARPREET Gandhi; Bay Ramos DO [facility] Signed PROGRESS Observed: 10/07/2017 Status: COMPLETED Source: [place] 1:34 PM [facility] REPOSITORY HNO ID: [id number] Author: Isi Gandhi Service: (none) Author Type: Physician Type: Progress Notes Filed: 10/07/2017 8:22 PM Note Text: Follow up podiatric office visit for: Chief Complaint: This 62 year old who presents for follow up:right ankle pain. Patient has completed two months of therapy and she was doing better but then when she was walking last Tuesday, she states she rolled and twisted her ankle and now has pain again to the right lateral ankle and foot. She states the pain is 8/10. She states the pain varies. Patient is taking nsaids and she does not feel they are helping. She has been using the brace but she does not feel that is helping any longer. Patient states that yesterday, she developed rash to her ankles. She has had rash in the past and she had used steroid cream which resolved the lesion. The lesion has subsequent returned. Lastly, she cut her toenails recently and she cut the 4th toenail too short. PAIN EVALUATION 10/07/2017 Pain Score: 8 8-10/10 Pain Location: Ankle-Right Description: Throbbing;Burning Duration Amount of Time: - several Duration Units: Months Frequency: Continuous Intervention: Other: See comment pt states nothing helps No results found for: HBA1C PCP: Bay Ramos, DO PAST MEDICAL HISTORY Diagnosis Date - Adjustment disorder with depressed mood - Bipolar disorder, unspecified (HCC) - Depression seeing counselor - Elevated LFTs - Esophageal reflux - Essential hypertension, benign - Hypertensive heart and kidney disease, benign - Pap smear for cervical cancer screening Dr. Thomas - PTSD (post-traumatic stress disorder) seeing counselor - Unspecified asthma(493.90) Asthma Unspecified Current Outpatient Prescriptions: triamcinolone acetonide (KENALOG) 0.1 % cream Apply 1 application to affected area twice daily. ketoconazole (NIZORAL) 2 % cream Apply 1 application to affected area once daily. amLODIPine (NORVASC) 10 mg tablet Take 10 mg by mouth once daily. benzonatate (TESSALON PERLE) 100 mg capsule Take 100 mg by mouth three times daily as needed. ketoconazole (NIZORAL) 2 % cream Apply 1 application to affected area once daily. ALL DAY ALLERGY 10 mg tablet cyclobenzaprine (FLEXERIL) 5 mg tablet diclofenac sodium (VOLTAREN) 1 % topical gel HYDROcodone-acetaminophen (NORCO) 5-325 mg per tablet Take 1 tablet by mouth every 8 hours as needed. hydroCHLOROthiazide (HYDRODIURIL, ESIDRIX) 12.5 mg tablet Take 12.5 mg by mouth once daily. omeprazole (PRILOSEC) 20 mg capsule Take 20 mg by mouth once daily. lisinopril (ZESTRIL, PRINIVIL) 10 mg tablet Take 10 mg by mouth once daily. potassium chloride ER (K-DUR, KLOR-CON) 20 mEq tablet Take 20 mEq by mouth twice daily. DULoxetine (CYMBALTA) 30 mg capsule Take 30 mg by mouth twice daily. EPINEPHrine (EPIPEN) 0.3 mg/0.3 mL (1:1,000) atIn Inject 0.3 mg intramuscularly as needed. for bee stings. estradiol (ESTRACE) 2 mg tablet Take 2 mg by mouth once daily. albuterol HFA (PROAIR HFA) 90 mcg/actuation inhaler Inhale 2 Puffs as instructed as needed for Wheezing/Shortness of Breath. Trospium (SANCTURA SR) 60 mg cp24 Take 1 capsule by mouth once daily. Take in the morning with a full glass of water. flurazepam HCl (DALMANE) 15 mg capsule Take 15 mg by mouth at bedtime as needed. No current facility-administered medications for this visit. ALLERGIES Allergen Reactions - Ultram [Tramadol Hc* Itching Severe itching,rash - Bees - Cortisone Intolerance - Meloxicam Itching - Percocet [Oxycodone* Itching - Prednisone - Shellfish - Talwin [Pentazocine* PAST SURGICAL HISTORY Procedure Laterality Date - APPENDECTOMY - EXTRACTION ERUPTED TOOTH/EXR 2006 - KNEE SCOPE,DIAGNOSTIC Arthroscopy, knee - LAPAROSCOPIC CHOLEYCYSTECTOMY Cholecystectomy, lap - PAST SURGICAL HISTORY OF eye surgery - PAST SURGICAL HISTORY OF BLADDER TACKING - PAST SURGICAL HISTORY OF 12/2009 left hallux exostectomy - REMOVAL GALLBLADDER 1983 - REVISE MEDIAN N/CARPAL TUNNEL SURG Carpal tunnel decomp - TOTAL ABDOM HYSTERECTOMY Hysterectomy, LOAN - TOTAL KNEE REPLACEMENT 2006 R Knee replacement, total Physical Exam: Constitutional: Pt is a well developed 62 year old female who is alert, oriented, cooperative and in no apparent distress. OBJECTIVE: NVSI unchanged from previous visit. Dermatological: Nails 1-5 b/l are normal in length and thickness. Right 4th toenail does not appear infected or open sores. Webspaces clean and dry 1-4 b/l. Skin appears well hydrated and supple. There is pruritic type rash to b/l ankles. No local signs of infection present. Musculoskeletal/Orthopaedic: Patient has pain to palpation of right anterior lateral ankle joint. There is pain over the anterior talofibular ligament of right ankle. There is mild pain with rom of right ankle joint. There is no laxity with anterior drawer of right ankle. ASSESSMENT: (M25.371) Instability of right ankle joint (primary encounter diagnosis) (S93.081D) Sprain of anterior talofibular ligament of right ankle, subsequent encounter (M95.8) Osteochondral defect of ankle (L30.9) Dermatitis PLAN: 1. History and physical examination completed today. 2. Discussed ongoing right ankle pain. She has tried ankle brace, boot, physical therapy. She continues to complain of pain. I have discussed ankle instability in presence of osteochondral defect of talus. I have discussed and offered injection of right ankle. She has declined ankle injection. She has no improvement with therapy. I have discussed monitoring her pain vs referral to orthopedics for possible discussion regarding lateral ankle stabilization with possible ankle arthroscopy. Patient interested in ortho referral. Will send patient to orthopedics 3. Discussed rash of b/l ankle. Continue with steroid cream. 4. Patient will be referred to ortho. Isi Gandhi DPM RE-EVALUATION - PT (1) Observed: 09/07/2017 Status: F Source: [place] 9:58 AM [facility] REPOSITORY [facility] [address] [place] [address] Fax REEVALUATION / MEDICARE RECERTIFICATION PHYSICAL THERAPY MR#: [id number] Acct: [id number] Name: WINTER JOY Rep #: [id number] : 1955 62 From: Mandy Ashley DPT Referring Dr.: HARPREET Gandhi Status: REG RCR [facility] DPM, It has been my pleasure to treat WINTER JOY over the last 4 visits for Right ankle instability. Please see the progress note below for an update on the physical therapy plan of care! Subjective: Patient reports that she is wearing an ankle brace- continue therapy and then make an apt for a possible cortisone injection. Has a cyst on her ankle- and the fracture did not heel correctly. Does not plan to have an injection. Will refer to a surgeon for possible ankle surgery- Dr. Mcintosh. Objective/Function: Posture: FH, RS, Increased kyphosis. Gait: slightly antalgic- toes turned out. SLS: 2 sec. ROM: WNL. Strength:4/5 throughout Plan Plan: Cont with POC Goals Goal 1:: Patient will be I with HEP and progression Goal Time Frame: 4-6 Weeks Goal Progress: Progressing Goal 2:: Patient will SLS for 10 sec without LOB on the right LE Goal Time Frame: 4-6 Weeks Goal Progress: Progressing Goal 3:: Patient will demo 5/5 strength in LE where deficit to ease ADL's. Goal Time Frame: 4-6 Weeks Goal Progress: Progressing Goal 4:: Patient will report no falls for 2 weeks Goal Time Frame: 4-6 Weeks Goal Progress: Goal Met Anticipated Interventions Patient/Client Instruction: Educate patient on: Benefits of Fitness Program For the Purpose of:: To increase tolerance to activity/condition/position Therapeutic Exercise to Include: Strength training, Balance training, Agility training, Body mechanics, Postural training, Flexibilty training, Gait and locomotor training, Dynamic Lumbar Stabilization For the Purpose of:: To improve muscle performance and motor function TENS: Yes Cryotherapy (ice pack, ice massage): Yes Thermo therapy (hot pack): Yes Ultrasound (thermal/non thermal): Yes For the Purpose of:: To decrease pain Please do not hesitate to contact me at [phone] by phone or if you have questions or concerns regarding this new plan of care! Sincerely, Mandy Ashley <Electronically signed by aMndy Ashley DPT> 09/07/17 0958 CC: HARPREET Gandhi; Bay Ramos DO ELR Signed For Medicare only, by signing this I certify the plan of care. Physicians Signature Date PROGRESS Observed: 09/01/2017 Status: COMPLETED Source: [place] 10:23 AM [facility] REPOSITORY O ID: [id number] Author: Barbra Paula RN Service: (none) Author Type: (none) Type: Progress Notes Filed: 09/01/2017 10:23 AM Note Text: Per Dr. Gandhi Winter was provided with a lace up ankle brace, size small, and instructed/educated in its application, wear, and care. All questions were answered, and patient was able to demonstrate competence with the necessary skills to utilize the above equipment. Patient signed Brigette PALOMINO. Brace billed to Brigette. Barbra Paula RN PROGRESS Observed: 09/01/2017 Status: COMPLETED Source: [place] 10:03 AM [facility] REPOSITORY HNO ID: [id number] Author: Isi Gandhi Service: (none) Author Type: Physician Type: Progress Notes Filed: 09/01/2017 10:07 AM Note Text: Follow up podiatric office visit for: Chief Complaint: This 62 year old who presents for follow up:right ankle pain. She is currently in therapy and using boot. She feels the pain is improving but there is still some pain. She would like to continue with therapy. She has mri to review. PAIN EVALUATION No data found. No results found for: HBA1C PCP: Bay Ramos, DO PAST MEDICAL HISTORY Diagnosis Date - Adjustment disorder with depressed mood - Bipolar disorder, unspecified (HCC) - Depression seeing counselor - Elevated LFTs - Esophageal reflux - Essential hypertension, benign - Hypertensive heart and kidney disease, benign - Pap smear for cervical cancer screening Dr. Thomas - PTSD (post-traumatic stress disorder) seeing counselor - Unspecified asthma(493.90) Asthma Unspecified Current Outpatient Prescriptions: triamcinolone acetonide (KENALOG) 0.1 % cream Apply 1 application to affected area twice daily. ketoconazole (NIZORAL) 2 % cream Apply 1 application to affected area once daily. amLODIPine (NORVASC) 10 mg tablet Take 10 mg by mouth once daily. benzonatate (TESSALON PERLE) 100 mg capsule Take 100 mg by mouth three times daily as needed. ketoconazole (NIZORAL) 2 % cream Apply 1 application to affected area once daily. ALL DAY ALLERGY 10 mg tablet cyclobenzaprine (FLEXERIL) 5 mg tablet diclofenac sodium (VOLTAREN) 1 % topical gel HYDROcodone-acetaminophen (NORCO) 5-325 mg per tablet Take 1 tablet by mouth every 8 hours as needed. hydroCHLOROthiazide (HYDRODIURIL, ESIDRIX) 12.5 mg tablet Take 12.5 mg by mouth once daily. omeprazole (PRILOSEC) 20 mg capsule Take 20 mg by mouth once daily. lisinopril (ZESTRIL, PRINIVIL) 10 mg tablet Take 10 mg by mouth once daily. potassium chloride ER (K-DUR, KLOR-CON) 20 mEq tablet Take 20 mEq by mouth twice daily. DULoxetine (CYMBALTA) 30 mg capsule Take 30 mg by mouth twice daily. EPINEPHrine (EPIPEN) 0.3 mg/0.3 mL (1:1,000) atIn Inject 0.3 mg intramuscularly as needed. for bee stings. estradiol (ESTRACE) 2 mg tablet Take 2 mg by mouth once daily. albuterol HFA (PROAIR HFA) 90 mcg/actuation inhaler Inhale 2 Puffs as instructed as needed for Wheezing/Shortness of Breath. Trospium (SANCTURA SR) 60 mg cp24 Take 1 capsule by mouth once daily. Take in the morning with a full glass of water. flurazepam HCl (DALMANE) 15 mg capsule Take 15 mg by mouth at bedtime as needed. No current facility-administered medications for this visit. ALLERGIES Allergen Reactions - Ultram [Tramadol Hc* Itching Severe itching,rash - Bees - Cortisone Intolerance - Meloxicam Itching - Percocet [Oxycodone* Itching - Prednisone - Shellfish - Talwin [Pentazocine* PAST SURGICAL HISTORY Procedure Laterality Date - APPENDECTOMY - EXTRACTION ERUPTED TOOTH/EXR 2006 - KNEE SCOPE,DIAGNOSTIC Arthroscopy, knee - LAPAROSCOPIC CHOLEYCYSTECTOMY Cholecystectomy, lap - PAST SURGICAL HISTORY OF eye surgery - PAST SURGICAL HISTORY OF BLADDER TACKING - PAST SURGICAL HISTORY OF 12/2009 left hallux exostectomy - REMOVAL GALLBLADDER 1983 - REVISE MEDIAN N/CARPAL TUNNEL SURG Carpal tunnel decomp - TOTAL ABDOM HYSTERECTOMY Hysterectomy, LOAN - TOTAL KNEE REPLACEMENT 2006 R Knee replacement, total Physical Exam: Constitutional: Pt is a well developed 62 year old female who is alert, oriented, cooperative and in no apparent distress. OBJECTIVE: NVSI unchanged from previous visit. Dermatological: Nails 1-5 b/l are normal. Webspaces clean and dry 1-4 b/l. Skin appears well hydrated and supple. good color, texture, turgor. No open lesions present. No callosities present. Musculoskeletal/Orthopaedic: Patient has pain to palpation of right lateral ankle joint along atfl and sinus tarsi. There is pain with dorsiflexion and plantarflexion of right ankle joint There is no laxity with anterior drawer of right ankle MRI reviewed. There is osteochondral defect of medial talus. There is old ununited avulsion fracture of right distal fibula. ASSESSMENT: (M25.371) Instability of right ankle joint (primary encounter diagnosis) (S93.557M) Sprain of anterior talofibular ligament of right ankle, subsequent encounter (M95.8) Osteochondral defect of ankle PLAN: 1. History and physical examination completed today. 2. Patient was examined and informed of current findings. 3. Discussed ongoing right ankle pain. Reviewed mri. She has old avulsion fracture that is likely not the source of current pain but certainly this has potential to lead to chronic instability. She does have osteochondral defect of talus. Discussed continued therapy and ankle brace. She is going to continue. 4. Offered injection but she has declined in past and would like to hold today. 5. If pain does not improve, would recommend ankle injection vs discussion on arthroscopic ankle surgery. 6. F/u in 5 weeks Isi Gandhi DPM CNOV Observed: 09/01/2017 Status: COMPLETED Source: [place] 9:40 AM [facility] REPOSITORY Office Visit (PODIWS) WINTER JOY ([id number]) 1955 F Date Time Provider Department 09/01/17 9:40 AM ISI GANDHI PODIWS During your visit today, we recorded the following information about you: Isi Gandhi DPM 09/01/2017 10:07 AM Signed Follow up podiatric office visit for: Chief Complaint: This 62 year old who presents for follow up:right ankle pain. She is currently in therapy and using boot. She feels the pain is improving but there is still some pain. She would like to continue with therapy. She has mri to review. PAIN EVALUATION No data found. No results found for: HBA1C PCP: Bay Ramos, DO PAST MEDICAL HISTORY Diagnosis Date - Adjustment disorder with depressed mood - Bipolar disorder, unspecified (HCC) - Depression seeing counselor - Elevated LFTs - Esophageal reflux - Essential hypertension, benign - Hypertensive heart and kidney disease, benign - Pap smear for cervical cancer screening Dr. Thomas - PTSD (post-traumatic stress disorder) seeing counselor - Unspecified asthma(493.90) Asthma Unspecified Current Outpatient Prescriptions: triamcinolone acetonide (KENALOG) 0.1 % cream Apply 1 application to affected area twice daily. ketoconazole (NIZORAL) 2 % cream Apply 1 application to affected area once daily. amLODIPine (NORVASC) 10 mg tablet Take 10 mg by mouth once daily. benzonatate (TESSALON PERLE) 100 mg capsule Take 100 mg by mouth three times daily as needed. ketoconazole (NIZORAL) 2 % cream Apply 1 application to affected area once daily. ALL DAY ALLERGY 10 mg tablet cyclobenzaprine (FLEXERIL) 5 mg tablet diclofenac sodium (VOLTAREN) 1 % topical gel HYDROcodone-acetaminophen (NORCO) 5-325 mg per tablet Take 1 tablet by mouth every 8 hours as needed. hydroCHLOROthiazide (HYDRODIURIL, ESIDRIX) 12.5 mg tablet Take 12.5 mg by mouth once daily. omeprazole (PRILOSEC) 20 mg capsule Take 20 mg by mouth once daily. lisinopril (ZESTRIL, PRINIVIL) 10 mg tablet Take 10 mg by mouth once daily. potassium chloride ER (K-DUR, KLOR-CON) 20 mEq tablet Take 20 mEq by mouth twice daily. DULoxetine (CYMBALTA) 30 mg capsule Take 30 mg by mouth twice daily. EPINEPHrine (EPIPEN) 0.3 mg/0.3 mL (1:1,000) atIn Inject 0.3 mg intramuscularly as needed. for bee stings. estradiol (ESTRACE) 2 mg tablet Take 2 mg by mouth once daily. albuterol HFA (PROAIR HFA) 90 mcg/actuation inhaler Inhale 2 Puffs as instructed as needed for Wheezing/Shortness of Breath. Trospium (SANCTURA SR) 60 mg cp24 Take 1 capsule by mouth once daily. Take in the morning with a full glass of water. flurazepam HCl (DALMANE) 15 mg capsule Take 15 mg by mouth at bedtime as needed. No current facility-administered medications for this visit. ALLERGIES Allergen Reactions - Ultram [Tramadol Hc* Itching Severe itching,rash - Bees - Cortisone Intolerance - Meloxicam Itching - Percocet [Oxycodone* Itching - Prednisone - Shellfish - Talwin [Pentazocine* PAST SURGICAL HISTORY Procedure Laterality Date - APPENDECTOMY - EXTRACTION ERUPTED TOOTH/EXR 2006 - KNEE SCOPE,DIAGNOSTIC Arthroscopy, knee - LAPAROSCOPIC CHOLEYCYSTECTOMY Cholecystectomy, lap - PAST SURGICAL HISTORY OF eye surgery - PAST SURGICAL HISTORY OF BLADDER TACKING - PAST SURGICAL HISTORY OF 12/2009 left hallux exostectomy - REMOVAL GALLBLADDER 1983 - REVISE MEDIAN N/CARPAL TUNNEL SURG Carpal tunnel decomp - TOTAL ABDOM HYSTERECTOMY Hysterectomy, LOAN - TOTAL KNEE REPLACEMENT 2006 R Knee replacement, total Physical Exam: Constitutional: Pt is a well developed 62 year old female who is alert, oriented, cooperative and in no apparent distress. OBJECTIVE: NVSI unchanged from previous visit. Dermatological: Nails 1-5 b/l are normal. Webspaces clean and dry 1-4 b/l. Skin appears well hydrated and supple. good color, texture, turgor. No open lesions present. No callosities present. Musculoskeletal/Orthopaedic: Patient has pain to palpation of right lateral ankle joint along atfl and sinus tarsi. There is pain with dorsiflexion and plantarflexion of right ankle joint There is no laxity with anterior drawer of right ankle MRI reviewed. There is osteochondral defect of medial talus. There is old ununited avulsion fracture of right distal fibula. ASSESSMENT: (M25.371) Instability of right ankle joint (primary encounter diagnosis) (S93.491D) Sprain of anterior talofibular ligament of right ankle, subsequent encounter (M95.8) Osteochondral defect of ankle PLAN: 1. History and physical examination completed today. 2. Patient was examined and informed of current findings. 3. Discussed ongoing right ankle pain. Reviewed mri. She has old avulsion fracture that is likely not the source of current pain but certainly this has potential to lead to chronic instability. She does have osteochondral defect of talus. Discussed continued therapy and ankle brace. She is going to continue. 4. Offered injection but she has declined in past and would like to hold today. 5. If pain does not improve, would recommend ankle injection vs discussion on arthroscopic ankle surgery. 6. F/u in 5 weeks HARPREET Shannon RN 09/01/2017 10:[address] Testrake, Winter was provided with a lace up ankle brace, size small, and instructed/educated in its application, wear, and care. All questions were answered, and patient was able to demonstrate competence with the necessary skills to utilize the above equipment. Patient signed Brigette PPA. Brace billed to Brigette. Barbra Paula RN Referring Provider: ISI GANDHI [[id number]] Allergies As of Date: 09/01/2017 Noted Allergy Reaction ULTRAM (TRAMADOL HCL) 03/06/2014 9 - Itching Comments: Severe itching,rash BEES 05/10/2007 CORTISONE 07/07/2005 5 - Intolerance MELOXICAM 12/11/2007 9 - Itching PERCOCET (OXYCODONE-ACETAMINOPHEN)01/09/2009 9 - Itching PREDNISONE 12/11/2008 SHELLFISH 02/16/2006 TALWIN (PENTAZOCINE LACTATE) 02/16/2006 Date Reviewed: 09/01/2017 Reviewed by: Barbra Paula RN - Fully Assessed Reason for Visit: Results - Mri [[id number]] Primary Visit Diagnosis:Instability of right ankle joint [M25.371] Other Visit Diagnoses:Sprain of anterior talofibular ligament of right ankle, subsequent encounter [S93.491D] Osteochondral defect of ankle [M95.8] Prescriptions as of 09/01/2017 Sig: TRIAMCINOLONE ACETONIDE 0.1 %* Apply 1 application to affect* KETOCONAZOLE 2 % TOPICAL CREAM Apply 1 application to affect* AMLODIPINE 10 MG TABLET Take 10 mg by mouth once rakesh* BENZONATATE 100 MG CAPSULE Take 100 mg by mouth three ti* KETOCONAZOLE 2 % TOPICAL CREAM Apply 1 application to affect* ALL DAY ALLERGY (CETIRIZINE) * CYCLOBENZAPRINE 5 MG TABLET DICLOFENAC 1 % TOPICAL GEL HYDROCODONE 5 MG-ACETAMINOPHE* Take 1 tablet by mouth every * HYDROCHLOROTHIAZIDE 12.5 MG T* Take 12.5 mg by mouth once da* OMEPRAZOLE 20 MG CAPSULE,DEMARCUS* Take 20 mg by mouth once rakesh* LISINOPRIL 10 MG TABLET Take 10 mg by mouth once rakesh* POTASSIUM CHLORIDE ER 20 MEQ * Take 20 mEq by mouth twice da* DULOXETINE 30 MG CAPSULE,DEMARCUS* Take 30 mg by mouth twice johnathan* EPINEPHRINE 0.3 MG/0.3 ML INJ* Inject 0.3 mg intramuscularly* ESTRADIOL 2 MG TABLET Take 2 mg by mouth once daily. 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 CAVUS DEFORMITY OF FOOT [M21.6X9] INVALID FOR* OTHER HAMMER TOE [M20.40] INVALID FOR* PAIN IN LIMB [M79.609] INVALID FOR* Unspecified Cellulitis and Abscess of Toe [L03.*INVALID FOR* Unspecified Asthma [J45.909] More... Hematoma [T14.8XXA] INVALID FOR* Exostosis of Unspecified Site [M89.8X9] INVALID FOR* Sprain and strain of unspecified site of foot [*INVALID FOR* Allergic reaction to bee sting [T63.441A] INVALID FOR* Porokeratosis [Q82.8] INVALID FOR* Tendonitis [M77.9] INVALID FOR* Capsulitis [M77.9] INVALID FOR* Abnormality of gait [R26.9] INVALID FOR* L-S radiculopathy [M54.17] INVALID FOR* Hypokalemia [E87.6] INVALID FOR* OCD (obsessive compulsive disorder) [F42.9] INVALID FOR* Insomnia [G47.00] INVALID FOR* Hyperlipidemia [E78.5] INVALID FOR* Abdominal pain [R10.9] INVALID FOR* More... Obesity (BMI 30-39.9) [E66.9] INVALID FOR* More... Right flank pain [R10.9] INVALID FOR* Kidney stones [N20.0] INVALID FOR* Erosion of bladder suspension mesh (HCC) [T83.7*INVALID FOR* Elevated LFTs [R79.89] Encounter Status:Closed by ISI GANDHI DPM on 09/01/17 RHEUMATOID FACTOR Collected: 08/30/2017 Status: F Source: [place] 11:15 AM [facility] REPOSITORY TYPE CODE TESTS RESULT OUT OF REFERENCE UNITS RANGE LAB L505.7010 <15 IU/mL High RHEUMATOID FAC 81.0 Performed By: #### L505.7010 #### [facility] [address] [place], [address] PROTEIN ELECTROPH, S Collected: 08/30/2017 Status: F Source: [place] 11:15 AM [facility] REPOSITORY TYPE CODE TESTS RESULT OUT OF RANGE REFERENCE UNITS LAB L3100.3500 6.0-8.5 g/dL Normal PROTEIN,TOTAL 7.5 LAB L3100.3600 2.9-4.4 g/dL Normal ALBUMIN 3.5 LAB L3100.3700 0.0-0.4 g/dL Normal ALPHA-1 GLOBUL 0.3 LAB L3100.3800 0.4-1.0 g/dL Normal ALPHA-2 GLOBUL 1.0 LAB L3100.3900 0.7-1.3 g/dL Normal BETA GLOBULIN 1.2 LAB L3100.4000 0.4-1.8 g/dL Normal GAMMA GLOBULIN 1.5 LAB L3100.4110 Normal M-SPIKE Result Comment: Not Observed LAB L3100.4200 2.2-3.9 g/dL GLOBULIN, TOTAL High 4.0 LAB L3100.4300 0.7-1.7 A/G RATIO Normal 0.9 LAB L3100.4320 . INTERPRETATION Normal Comment Result Comment: Protein electrophoresis scan will follow via computer, mail, or international student counselor delivery. LAB L3100.4340 . Normal NOTE: Comment Result Comment: The SPE pattern appears essentially unremarkable. Evidence of monoclonal protein is not apparent. Performed By: #### L3100.3450, L3100.5700 #### [facility] (refer to report for specific site) refer to report for address and phone number COMPLEMENT C3 Collected: 08/30/2017 Status: F Source: [place] 11:15 AM [facility] REPOSITORY TYPE CODE TESTS RESULT OUT OF RANGE REFERENCE UNITS LAB L3100.5700 82-167 mg/dL Normal COMP C3 164 Result Comment: Performed at: - [facility] [address], [place], [place] [id number] [employer]arn Texturing Machine Operator: Meliton Browning PhD, Phone: [phone] Performed By: #### L0033.6582, J4483.2536 #### [facility] (refer to report for specific site) refer to report for address and phone number PULMONARY VISIT REPORT Observed: 08/19/2017 Status: F Source: [place] 6:[address] [facility] Pulmonary Medicine of [address] [place] [address] OFFICE VISIT Date of Service: 08/18/17 MR#: [id number] Acct: [id number] Name: WINTER JOY Rep #: [id number] : 1955 Provider: Cristobal Olmos MD Age/Sex: 62/F Location: [facility] Status: Signed Assessment AND Plan 1. Mild intermittent asthma in adult without complication J45.20 Plan Patient is doing okay at this time. Patient has had increased cough for 48 hours, but no wheezing is noted on exam. Will refill patient's albuterol and see if this will be effective. Cannot exclude the need for a steroid burst if not feeling better by next week. Signs and symptoms of exacerbation were reviewed in detail with the patient and patient voiced understanding. Call back on Tuesday if not improved. Refill albuterol for now. Medications New: Changed: 2. Bipolar 2 disorder F31.81 Plan Patient once again with very pressured speech with tangential thoughts. Does complicate pulmonary management, but overall patient appears to be at her baseline. Patient does report that she has a counselor that she sees routinely. Continue current plan. 3. Obesity (BMI 30-39.9) E66.9 Plan Did discuss with patient at length about the necessity weight loss the overall disease plan of care. Patient has had a slight decrease in weight compared to previous visit. Patient states that she will be starting on a monitor weight loss program after the new year. Encouraged weight loss Plan Detail Follow Up 6 Months ([facility]) HPI 6 M FU: Chief Complaint: Cough Details: Patient is a 62-year-old female who presents for evaluation secondary to cough. Since last visit, patient denies any ER visits, hospitalizations or prednisone burst. Patient does report that she is recently had some difficulty with blood pressure requiring changing of medications from her primary care physician. Patient continues to have a cough that is typically paroxysmal in nature. Patient states that she typically has 1 or 2 days per week with this complication. Recently, patient has had increased use of albuterol last 24-48 hours. Patient states it is typically responsive to albuterol, but she has not had albuterol recently secondary to a lack of refills. Patient denies any chest pain, abdominal pain, nausea or vomiting. 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 No environmental exposures been noted. Intake Vital Signs08/18/17 Height 5 ft 7 in 08/18/17 Weight: 98.883 kg Intake Visit Reasons: 6 M FU Allergies acetaminophen [From Percocet] Allergy (Intermediate, Verified 08/13/17 08:17) Hives AND itching divalproex sodium [From Depakote] Allergy (Intermediate, Verified 08/13/17 08:17) Other - nightmares quetiapine [From Seroquel] Allergy (Mild, Verified 08/13/17 08:17) Other - shaking, lightheaded and abnormal dreams bee pollen Allergy (Verified 07/28/17 16:05) Anaphylaxis shellfish derived Allergy (Verified 07/28/17 16:05) Unknown tramadol [From Ultram] Adverse Reaction (Intermediate, Verified 08/13/17 08:17) Itching meloxicam Adverse Reaction (Verified 07/28/17 16:05) Unknown oxycodone [Oxycodone] Adverse Reaction (Verified 07/28/17 16:05) Rash bee sting Allergy (Severe, Uncoded 08/13/17 08:17) Anaphylaxis STEROIDS Allergy (Intermediate, Uncoded 08/13/17 08:17) Hives AND swelling Medications Estradiol [Estrace] 2 mg PO DAILY 09/09/13 [History Confirmed 08/13/17] Hydrochlorothiazide 12.5 mg PO DAILY 09/09/13 [History Confirmed 08/13/17] Lisinopril [Zestril] 5 mg PO DAILY 09/09/13 [History Confirmed 08/13/17] Cetirizine HCl [All Day Allergy] 10 mg PO DAILY 06/17/16 [History Confirmed 08/13/17] Duloxetine Hcl [Cymbalta] 30 mg PO BID 06/17/16 [History Confirmed 08/13/17] Epinephrine [Epi Pen] 0.3 mg IM X1 06/17/16 [History Confirmed 08/13/17] Hydrocodone Bitart/Apap 5-325 [[place] 5MG-325MG] 1 tab PO BID 06/17/16 [History Confirmed 08/13/17] Omeprazole [Prilosec] 40 mg PO DAILY 06/17/16 [History Confirmed 08/13/17] Potassium Chloride [K-Dur] 20 meq PO BID 06/17/16 [History Confirmed 08/13/17] fentanyl 25 mcg/hr transdermal patch 1 patch TRANSDERMAL Q72H 08/13/17 [History Confirmed 08/13/17] guaifenesin ER 600 mg tablet, extended release 12 hr 600 mg PO Q12H 08/13/17 [History Confirmed 08/13/17] ipratropium-albuterol 0.5 mg-3 mg(2.5 mg base)/3 mL nebulization soln 3 ml INHALATION Q6H PRN ml 08/13/17 [History Confirmed 08/13/17] prazosin 1 mg capsule See Label Instructions PO QHS PRN cap 08/13/17 [History Confirmed 08/13/17] albuterol sulfate 2.5 mg/3 mL (0.083 %) solution for nebulization 2.5 mg INHALATION BID PRN #180 ml 08/18/17 [Rx Confirmed 08/18/17] albuterol sulfate HFA 90 mcg/actuation aerosol inhaler 2 puff INHALATION Q4H PRN PRN #8.5 g 08/18/17 [Rx Confirmed 08/18/17] Review of Systems Const CONSTITUTIONAL: Positive body ache and fatigue; negative anorexia, chills, daytime sleepiness, fever(s), night sweats, oral thrush, stops breathing during sleep, weight loss, sleeping in chair, weight loss, weight gain, frequent colds, seasonal allergies, other, headache(s) or orthopnea EETM Ear Nose Throat Mouth: Positive hearing normal, hoarseness and swallowing Difficulty; negative hard of hearing, dry mouth in morning, change in vision, itchy eyes, eye pain, ear pain, nose bleed, headache(s), mouth pain, nasal congestion, nasal discharge, post nasal drip, sinus pain, sinus pressure, sore throat or other Cardio Cardiovascular: Negative chest pain, chest pain at rest, chest pain with activity, irregular heart rhythm, edema, shortness of breath when lying down, palpitations, murmur or other Resp Respiratory: Positive as per HPI, shortness of breath, wheezing, chest tightness and increase use of rescue inhalers; negative pain with cough, chest congestion, cough, pain on inspiration, inhalers, snoring, apnea or other Gastro Gastrointestional: Negative bloody stools, change in appetite, difficulty swallowing, reflux, hematemesis, melena stool, loose stool, constipation or other Genitourinary: Positive nocturia; negative blood in urine, pain with urination or other Musc Musculoskeletal: Positive neck pain; negative body pain, back pain or other Skin/Breast Skin/Breast: Negative dry skin, itching, rash, unusual bruising, breast lump or other Neuro Neurological: Positive weakness; negative restless legs, confusion or other Psych Psychocological: Positive other (depression); negative abnormal sleep pattern, anxiety, thoughts of hurting self/others or hopelessness Lymph Lymphatic: Positive easy bruising; negative easy bleeding, swollen lymph nodes or other Exam Const Constitutional: Positive conversant, cooperative, in no acute respiratory distress, obese, good hygiene and appears older than stated age Head Head: Positive normocephalic and atraumatic; negative cyanosis of lips/distal nose, microcephalic, macrocephalic, frontal sinus tenderness or maxillary sinus tenderness Eyes Eye: Positive clear conjunctiva; negative nystagmus, scleral abnormality or cataract present disconjugent gaze Ears Ear: Positive hearing normal and external ears normal; negative hard of hearing Nose Nose: Positive external nose normal, septum normal and no nasal discharge; negative epistaxis or nasal polyp Mouth Mouth: Positive oral mucosae normal, dentures, crowded posterior oropharynx and no lesions; negative post nasal drip or oral thrush present Mallampati Score: III: Mallampati Score Neck Neck: Positive normal visual inspection, thick neck, trachea midline and female neck greater than 37 cm (15 in); negative lymphadenopathy or JVD Chest Wall Chest: Positive normal inspection of the chest and symmetric chest movement; negative increased A/P diameter, crepitus or tenderness Resp lung sounds: Positive clear to auscultation, good air exchange and normal expiratory time; negative wheezes, rhonchi or rales Cardio Cardiac: Positive regular rate, regular rhythm, S1 normal and S2 normal; negative murmur, rub or gallop GI GI: Positive obese, normal to inspection and normal bowel sounds; negative distended, ascites or epigastric tenderness Genitourinary: Positive deferred Musc Musculoskeletal: Positive steady gait, ROM normal and kyphosis; negative using an assistive device for ambulation or scoliosis Skin Pulmonary Skin Exam: Positive intact; negative rash, ulcers, lesion or petechiae Pulses Pulse: Positive radial pulses present and pedal pulses present Extremities Extremities: Positive capillary refill normal; negative clubbing, cyanosis or edema Neuro Neurologic: Positive conversant, no focal neuro deficits and cooperative Lymph Lymphatic: Negative lymphadenopathy, tenderness, cervical adenopathy or axillary adenopathy Psych Appearance: Positive grossly normal Mood: Positive euphoric mood, manic mood and other (pressured speech) Affect: Positive anxious affect and elated 08/19/17 0622 <Electronically signed by Cristobal Olmos MD> Date Cristobal Olmos MD Cosigner Signature: Date (if applicable) CC: Bay Ramos DO ALLERGIES ALLERGIES DATE TYPE / CODE NAME / CODE REACTION SEVERITY SOURCE Drug oxycodone/K60015 Rash Unknown [place] 8 Allergy/832164010( 1558(RXNORM) [facility] SN[facility]) Hospital Repository Drug divalproex Other - [place] 8 Allergy/591971714( sodium/X83675619 nightmares [facility] SNOMED CT) 4(RXNORM) Hospital Repository Drug tramadol/G241242 Itching [place] 8 Allergy/465680851( 180(RXNORM) [facility]) Hospital Repository Drug meloxicam/N40354 Unknown Unknown [place] 8 Allergy/014381605( 6272(RXNORM) [facility] Rep[facility] Drug quetiapine/F0060 Other - shaking, [place] 8 Allergy/489762226( 73231(RXNORM) lightheaded and Community SNOM[facility]) abnormal dreams Hospital Repository Drug bee Anaphylaxis Unknown [place] 8 Allergy/252932465( pollen/E26333337 [facility]) 0(RXNORM) Hospital Repository Drug shellfish Unknown Unknown [place] 8 Allergy/315987829( derived/W5433166 [facility] SN[facility]) 54(RXNORM) Hospital Repository Miscellaneous STEROIDS Hives swelling [place] 8 Allergy/218333296( [facility] SNOMED CT) Hospital Repository Miscellaneous bee sting Anaphylaxis [place] 8 Allergy/489087605( [facility] SNOMED CT) Hospital Repository Drug acetaminophen/F0 Hives itching [place] 8 Allergy/338268297( 51231443(RXNORM) [facility]) Hospital Repository DRUG TRAMADOL HCL ITCHING [place] 4 INGREDI/626324642( Clinic Main SNOMED CT) [place] Repository DRUG/546146023(SNO OXYCODONE-ACETAM ITCHING [place] [address]) INOPHEN Clinic Main [place] Rep[facility] DRUG PREDNISONE [place] INGREDI/174886622( Clinic Main SNOMED CT) [place] Repository DRUG MELOXICAM ITCHING [place] 8 INGREDI/552973795( Clinic Main SNOMED CT) [place] Repository Environ/983900580( BEES [place] [address]) Clinic Main [place] Repository Food/626067525(SNO SHELLFISH [place] [address]) Clinic Main [place] Repository DRUG PENTAZOCINE [place] 6 INGREDI/866758599( LACTATE Clinic Main SNOMED CT) [place] Repository DRUG CORTISONE INTOLERANCE [place] 5 INGREDI/765963568( Clinic Main SNOMED CT) [place] Repository ENCOUNTERS ENCOUNTERS ADMIT/DISCHARGE ACCOUNT ADMITTING ENCOUNTER LOCATION SOURCE NUMBER CLASS 08/08/2018/08/08/20 [id number] Ambulatory Jan[place] 18 [facility] ing:SDCRoom: Repository AC19 08/02/2018/08/02/20 [id number] Ambulatory BMSBuilding:B [place] [facility] Repository 07/25/2018/07/25/20 [id number] Ambulatory [address] [facility] ing:SDCRoom: Repository AC04 07/03/2018 [id number] [facility] ing:OPBI Repository 06/05/2018 [id number] [facility] ing:BFHLAB Repository 05/20/2018/05/20/20 [id number] [facility] [address] [facility] Repository 05/15/2018/05/15/20 [id number] Ambulatory BMSBuilding:B [place] [facility] Repository 05/12/2018/05/12/20 [id number] Ambulatory [address] Repository 05/12/2018/05/12/20 [id number] Ambulatory [address] Repository 04/22/2018 [id number] [facility]LAB Repository 04/21/2018 [id number] [facility] ing:LAB Repository 04/20/2018 [id number] [facility]:MRI Repository 03/30/2018 [id number] [facility] ing:LAB Repository 02/20/2018/02/21/20 [id number] Ambulatory BMSBuilding:B [place] [facility] Repository 02/16/2018 [id number] [facility] ing:LAB.FUTUR Repository E 01/06/2018 [id number] [facility] ing:NS Repository 12/02/2017/12/27/19 [id number] Ambulatory [address] [facility] ing:NS Repository 11/28/2017 [id number] [facility] ing:BFHLAB Repository 11/17/2017/11/18/19 [id number] Ambulatory BMSBuilding:B [place] 18 [facility] Repository 11/04/2017 [id number] Ambulatory [facility] Repository 11/04/2017 [id number] Ambulatory [facility] Repository 11/03/2017/11/04/19 [id number] Ambulatory BMSBuilding:B [place] 18 [facility] Repository 10/24/2017/10/26/19 [id number] Ambulatory [place] [facility] ing:NS Repository 10/10/2017/10/10/19 [id number] Ambulatory [place] [address] [place] [address] ing:PT Repository 10/07/2017/10/07/19 [id number] Ambulatory [address] Repository 09/15/2017/09/28/19 [id number] Ambulatory [place] Jan[place] [address] [place] [address] ing:NS Repository 09/01/2017/09/05/19 [id number] Ambulatory [address] Repository 08/30/2017 [id number] Ambulatory Janay [facility] ing:LAB Repository 08/18/2017/08/18/20 [id number] Ambulatory BMSBuilding:B [place] [facility] Repository PAYERS PAYERS ENCOUNTER GUARANTOR PAYER SUBSCRIBER SOURCE 08/08/2018 [place] [id number] Insurance:CARESOMAINOR LAIANNMARIEONDOB: [facility] fidelina DIAZ Number: [id number] Ana Health Center [address]Vgy: [id number] Repository Date:2018-06-30P O (HO) [address]ATTN: [place] [address]GC: 08/08/2018 Secondary NOT GIVENUNK Janay Insurance:SELF PAY [facility] Number: Effective Repository Date:2018-06-30 08/02/2018 WINTER [place] Primary [id number] Insurance:CARESOURCGEORGINA LAIRSONDOB[facility]UST[facility] Number: [id number] Ana Health Center [address]Xkr: [id number] Repository Date:2018-02-20P O (HP) [address]ATTN: [place] [address]NN: 08/02/2018 Secondary NOT GIVENUNK Janay Insurance:SELF PAY [facility] Number: Effective Repository Date:2018-07-26 07/25/2018 [place] Primary [id number] Insurance:CARESOURCEP LAIRSONDOB[facility]USTA[facility] Number: [id number] Ana Health Center [address]Lxz: [id number] Repository Date:2018-06-30P O (HP) [address]ATTN: [place] [address]GN: 07/25/2018 Secondary NOT GIVENUNK Jan[place] Insurance:SELF PAY [facility] Number: Effective Repository Date:2018-06-30 07/03/2018 [place] Primary [id number] Insurance:CARESOURCEP LAIRSONDOB: [facility] fidelina FROST Number: [id number] Ana Health Center [address]Zvp: [id number] Repository Date:2018-03-06P O (HP) [address]ATTN: [place] [address]YH: 07/03/2018 Secondary NOT GIVENUNK Janay Insurance:SELF PAY [facility] Number: Effective Repository Date:2018-03-06 06/05/2018 [place] Primary [id number] Insurance:CARESOURCEP LAIRSONDOB: [facility] fidelina FROST Number: [id number] Ana Health Center [address]Axk: [id number] Repository Date:2018-06-05P O (HP) [address]N: [place] [address]YF: 06/05/2018 Secondary NOT GIVENUNK Janay Insurance:SELF PAY [facility] Number: Effective Repository Date:2018-06-05 05/20/2018 [place] Primary W[place] [id number] Insurance:CARESOURCEP LAIRSONDOB: Community fidelina FROST Number: [id number] Ana Health Center [address]Xch: [id number] Repository Date:2018-05-20P O (HP) [address]ATTN: [place] [address]JH: 05/20/2018 Secondary NOT GIVENUNK Janay Insurance:SELF PAY [facility] Number: Effective Repository Date:2018-05-20 05/15/2018 W[place] Primary WINTER [place] [id number] Insurance:CARESOURCEP LAIRSONDOB: [facility] fidelina FROST Number: [id number] Ana Health Center [address]Vhw: [id number] Repository Date:2018-05-15P O (HP) [address]ATTN: [place] [address]PD: 05/15/2018 Secondary NOT GIVENUNK [place] Insurance:SELF PAY [facility] Number: Effective Repository Date:2018-05-15 04/22/2018 W[place] Primary W[place] [id number] Insurance:CARESOURCEP LAIRSONDOB: [facility] fidelina FROST Number: [id number] Ana Health Center [address]Ium: [id number] Repository Date:2018-04-22P O (HP) [address]ATTN: [place] [address]BS: 04/22/2018 Secondary NOT GIVENUNK [place] Insurance:SELF PAY [facility] Number: Effective Repository Date:2018-04-22 04/21/2018 [place] Primary W[place] [id number] Insurance:CARESOURCEP LAIRSONDOB: Community CAROL fidelina DIAZ Number: [id number] Ana Health Center [address]Iwm: [id number] Repository Date:2018-04-21P O (HP) [address]ATTN: [place] [address]EU: 04/21/2018 Secondary NOT GIVENUNK Janay Insurance:SELF PAY [facility] Number: Effective Repository Date:2018-04-21 04/20/2018 [place] Primary W[place] [id number] Insurance:CARESOURCEP LAIRSONDOB: [facility] fidelina DIAZ Number: [id number] Ana Health Center [address]Khk: [id number] Repository Date:2018-04-14P O (HP) [address]ATTN: [place] [address]DK: 04/20/2018 Secondary NOT GIVENUNK [place] Insurance:SELF PAY [facility] Number: Effective Repository Date:2018-04-14 03/30/2018 [place] Primary [place] [id number] Insurance:CARESOURCEP LAIRSONDOB: [facility] fidelina DIAZ Number: [id number] Ana Health Center [address]Wua: [id number] Repository Date:2018-03-30P O () [address]ATTN: [place] [address]NX: 03/30/2018 Secondary NOT GIVENUNK [place] Insurance:SELF PAY [facility] Number: Effective Repository Date:2018-03-30 02/20/2018 [place] Primary W[place] [id number] Insurance:CARESOURCEP LAIRSONDOB: [facility] fidelina DIAZ Number: [id number] Ana Health Center [address]Xvb: [id number] Repository Date:2017-08-18P O (HP) [address]ATTN: [place] [address]NM: 02/20/2018 Secondary NOT GIVENUNK Janay Insurance:SELF PAY [facility] Number: Effective Repository Date:2018-02-16 02/16/2018 [place] Primary W[place] [id number] Insurance:CARESOURCEP LAIRSONDOB: [facility] fidelina DIAZ Number: [id number] Ana Health Center [address]Ust: [id number] Repository Date:2018-02-13P O (HP) [address]ATTN: [place] [address]VS: 02/16/2018 Secondary NOT GIVENUNK [place] Insurance:SELF PAY [facility] Number: Effective Repository Date:2018-02-13 01/06/2018 W[place] Primary W[place] [id number] Insurance:CARESOURCEP LAIRSONDOB: [facility] fidelina DIAZ Number: [id number] Ana Health Center [address]Mrh: [id number] Repository Date:2017-09-02P O (HP) [address]ATTN: [place] [address]ZR: 01/06/2018 Secondary NOT GIVENUNK [place] Insurance:SELF PAY [facility] Number: Effective Repository Date:2017-12-27 12/02/2017 W[place] Primary W[place] [id number] Insurance:CARESOURCEP LAIRSONDOB: [facility] fidelina DIAZ Number: [id number] Ana Health Center [address]Lyw: [id number] Repository Date:2017-09-02P O (HP) [address]ATTN: [place] [address]TY: 12/02/2017 Secondary NOT GIVENUNK [place] Insurance:SELF PAY [facility] Number: Effective Repository Date:2017-10-27 11/28/2017 WINTER [place] Primary [id number] Insurance:CARESOURCEP LAIRSONDOB: Community fidelina FROST Number: [id number] Ana Health Center [address]Mai: [id number] Repository Date:2017-11-28P O (HP) [address]ATTN: [place] [address]MV: 11/28/2017 Secondary NOT GIVENUNK Jan[place] Insurance:SELF PAY [facility] Number: Effective Repository Date:2017-11-28 11/17/2017 W[place] Primary [id number] Insurance:CARESOURCEP LAIRSONDOB: [facility] fidelina FROST Number: [id number] Ana Health Center [address]Ryt: [id number] Repository Date:2017-11-03P O (HP) [address]ATTN: [place] [address]XM: 11/17/2017 Secondary NOT GIVENUNK [place] Insurance:SELF PAY [facility] Number: Effective Repository Date:2017-11-17 11/03/2017 W[place] Primary [id number] Insurance:CARESOURCEP LAIRSONDOB: [facility] fidelina FROST Number: [id number] Ana Health Center [address]Ame: [id number] Repository Date:2017-10-21P O (HP) [address]ATTN: [place] [address]CE: 11/03/2017 Secondary NOT GIVENUNK [place] Insurance:SELF PAY [facility] Number: Effective Repository Date:2017-10-21 10/24/2017 W[place] Primary [id number] Insurance:CARESOURCEP LAIRSONDOB: Community CAROL fidelina DIAZ Number: [id number] Ana Health Center [address]Wrt: [id number] Repository Date:2017-09-02P O (HP) [address]ATTN: [place] [address]EJ: 10/24/2017 Secondary NOT GIVENUNK [place] Insurance:SELF PAY [facility] Number: Effective Repository Date:2017-09-29 10/10/2017 WINTER [place] Primary [id number] Insurance:CARESOURCEP LAIRSONDOB: [facility] GUSTAFSON Number: [id number] Ana Health Center [address]Sfk: [id number] Repository Date:2013-02-26P O (HP) [address]ATTN: [place] [address]ZE: 10/10/2017 Secondary NOT GIVENUNK [place] Insurance:SELF PAY [facility] Number: Effective Repository Date:2017-07-14 09/15/2017 [place] Primary W[place] [id number] Insurance:CARESOURCEP LAIRSONDOB: [facility] fidelina DIAZ Number: [id number] Ana Health Center [address]Man: [id number] Repository Date:2017-09-02P O (HP) [address]ATTN: [place] [address]ZO: 09/15/2017 Secondary NOT GIVENUNK [place] Insurance:SELF PAY [facility] Number: Effective Repository Date:2017-09-02 08/30/2017 W[place] Primary WINTER [place] [id number] Insurance:CARESOURCEP LAIRSONDOB: [facility] fidelina DIAZ Number: [id number] Ana Health Center [address]Zqg: [id number] Repository Date:2017-08-30P O (HP) [address]ATTN: [place] [address]VI: 08/30/2017 Secondary NOT GIVENUNK [place] Insurance:SELF PAY [facility] Number: Effective Repository Date:2017-08-30 08/18/2017 [place] Primary [place] Janay [id number] Insurance:CARESOURCEP LAIANNMARIEONDOB: [facility] fidelina DIAZ Number: [id number] Ana Health Center [address]Xdl: [id number] Repository Date:2017-08-03P O () [address]ATTN: [place] [address]DT: 08/18/2017 Secondary NOT GIVENUNK Janay Insurance:SELF PAY [facility] Number: Effective Repository Date:2017-08-03
== END 2018-07-25 11:10 | disposition home or self-care (01) ==
LOC: SDC 06:04 → AC 06:05
PROVIDERS: Family Provider Family Medicine; PCP Family Medicine; Referring Provider Urology; Visit Provider Urology
PROC: (CPT 64581; principal; 2018-07-25 07:50)
DX: N39.41 Urge incontinence (principal); R35.0 Frequency of micturition; R35.1 Nocturia; I10 Essential (primary) hypertension; J45.909 Unspecified asthma, uncomplicated; M06.9 Rheumatoid arthritis, unspecified; M79.7 Fibromyalgia; M35.00 Sjogren syndrome, unspecified; K21.9 Gastro-esophageal reflux disease without esophagitis; E78.00 Pure hypercholesterolemia, unspecified; F32.9 Major depressive disorder, single episode, unspecified; F41.9 Anxiety disorder, unspecified; F17.200 Nicotine dependence, unspecified, uncomplicated; Z79.899 Other long term (current) drug therapy
CPT/HCPCS: 00630; 64581; 76000; J7120; C1778; J2405

== ENCOUNTER 2018-08-08 05:59 | Day surgery (SDC) | payer MEDICAID, SELFPAY ==
[2018-08-02 09:16] VITALS: BMI 36.2
[2018-08-08 06:36] VITALS: BP 115/80; PULSE 80; RESP 16; TEMP 36.7; O2SAT 99; BMI 37.3
[2018-08-08] MEDS: Vancomycin IV 1,000 MG/200 ML BAG 200 MG IV (07:55)
--- NOTE | 2018-08-08 08:27 | DCINST_ITS ---
Discharge Diet: No Restrictions Discharge Activity: May not drive while taking narcotic pain medications., May Shower, - - no tub bathing for 4 weeks. May resume sexual activity in: No Restrictions Call your doctor if your incision/area has: Continuous Slow Oozing, Sudden Increased Bleeding, Increased Pain/ Swelling, Increased Redness, Foul Smelling Discharge, Swelling at the incision site Call your doctor if you observe: Fever of 101 or Higher, Inability to urinate, Shortness of breath, Chest pain, Calf discomfort, Uncontrolled pain Allergies/Adverse Reactions: Allergies tramadol [From Ultram] Allergy (Intermediate, Verified 08/02/18 09:09) Itching bee pollen Allergy (Verified 08/02/18 09:09) Anaphylaxis shellfish derived Allergy (Verified 08/02/18 09:09) Unknown divalproex sodium [From Depakote] Adverse Reaction (Intermediate, Verified 08/02/18 09:09) Other - nightmares quetiapine [From Seroquel] Adverse Reaction (Mild, Verified 08/02/18 09:09) Other - shaking, lightheaded and abnormal dreams meloxicam Adverse Reaction (Verified 08/02/18 09:09) Unknown oxycodone [Oxycodone] Adverse Reaction (Verified 08/02/18 09:09) Rash bee sting Allergy (Severe, Uncoded 08/02/18 09:09) Anaphylaxis STEROIDS Allergy (Intermediate, Uncoded 08/02/18 09:09) Hives & swelling Medications to take at Discharge Estradiol [Estrace] 1 mg PO DAILY 09/09/13 Hydrochlorothiazide 12.5 mg PO DAILY 09/09/13 Lisinopril [Zestril] 20 mg PO BID 09/09/13 Duloxetine Hcl [Cymbalta] 30 mg PO BID 06/17/16 Epinephrine [Epi Pen] 0.3 mg IM X1 06/17/16 Omeprazole [Prilosec] 40 mg PO DAILY 06/17/16 Potassium Chloride [K-Dur] 20 meq PO BID 06/17/16 ipratropium-albuterol 0.5 mg-3 mg(2.5 mg base)/3 mL nebulization soln 3 ml INHALATION Q6H PRN ml 08/13/17 ipratropium bromide 0.03 % nasal spray 2 spray INTRANASAL BID-TID PRN #30 ml 02/20/18 Albuterol Aerosols [Ventolin Aerosols] 2.5 mg INHALATION TID 07/18/18 Albuterol IH (ProAir) [Proair Hfa] 2 puff INHALATION TID 07/18/18 Amlodipine [Norvasc] 10 mg PO DAILY 07/18/18 Cetirizine HCl [Zyrtec] 10 mg PO DAILY 07/18/18 Hydroxychloroquine [Plaquenil] 200 mg PO BIDCM 07/18/18 Multivitamin [Multiple Vitamins] 1 ea PO DAILY 07/18/18 guaifenesin ER 1,200 mg tablet, extended release 12 hr 1,200 mg PO Q12H #60 tab 08/02/18 Primary Care Physician: Bay Ramos DO [Primary Care Provider] - Test Results: Test results from this visit will be discussed in further detail at your follow- up appointment, if applicable. Please Follow Up With: Darya Abreu MD When: 1 weeks, call office for appt Proposed Discharge Date: 08/08/18
--- NOTE | 2018-08-08 08:28 | OP.PN_ITS ---
Immediate Post-Op Note Date of Procedure: 08/08/18 Primary Surgeon/Physician: Darya Abreu MD stamping bench die maker: Darya Abreu Pre-Operative Diagnosis: urinary urgency, frequency, urge incontinence. Post-Operative Diagnosis: same Surgery/Procedure Performed:: Interstim Stage 2 Description of Surgical Findings:: no sign of infection. no impedances. implanted IPG without complication on her right side. Estimated Blood Loss: 2cc Specimen's removed: none Type of Anesthesia:: MAC/Supplemental/Local - Admit VTE Documentation VTE Present on Admission: Yes VTE Mechan Device Prophylaxis: SCD's VTE Pharm Prophylaxis ordered?: No Reason prophylaxis not ordered:: Treatment Not Indicated
[2018-08-08 08:30] VITALS: BP 104/60; BP 115/80; PULSE 82; RESP 16; TEMP 36.8; O2SAT 100
[2018-08-08 08:33] VITALS: BP 115/80; BP 116/74; PULSE 79; RESP 16; O2SAT 100
[2018-08-08 08:38] VITALS: BP 115/80; BP 121/86; PULSE 77; RESP 18; O2SAT 100
[2018-08-08 08:44] VITALS: BP 106/61; BP 115/80; PULSE 77; RESP 18; TEMP 36.8; O2SAT 100
[2018-08-08 09:12] VITALS: BP 115/80
--- NOTE | 2018-08-08 10:52 | PCM.OPRPT ---
Problem List (1) Urinary frequency Status: Acute (2) Urinary urgency Status: Acute (3) Urinary incontinence, urge Status: Acute Report of Operation Date of Procedure: 08/08/18 Pre-Operative Diagnosis: urinary urgency, frequency, urge incontinence. Post-Operative Diagnosis: same Surgery/Procedure Performed:: Interstim Stage 2 Description of Surgical Findings:: no sign of infection. no impedances. implanted IPG without complication on her right side. commercial credit analyst: Darya Abreu Type of Anesthesia:: MAC/Supplemental/Local Specimen's removed: none Estimated Blood Loss (mL): 2cc Description of Procedure: The patient is a 63-year-old female with a successful InterStim stage I who presents for insertion of her IPG. All risks, benefits and alternatives were discussed. The patient was taken to the operating room and placed in a prone position on the operating room table. All dependent portions of her body were appropriately padded and she was secured to the table. At this time the op sites and bandages from the stage I were carefully removed. Anesthesia monitored the head, neck, airway, IV access, vital signs throughout the case. Once anesthesia was appropriately administered the patient was prepped and draped in usual sterile fashion. The area of the incision overlying the boot was infiltrated with lidocaine and the incision was opened with hemostats. Using blunt dissection the boot was identified and brought into the operative field. The Prolene sutures were cut and the boot was removed. The lead was taken out of the extension using the torque wrench. The pocket was appropriately enlarged and developed using both cautery and blunt dissection. Hemostatic control was achieved. The lead was cleaned and dried and inserted into the IPG and secured using the torque wrench. The IPG was then placed into the pocket and the skin was brought together. Testing revealed no impedances. The pocket was then closed in 2 layers using 3-0 interrupted suture followed by 4-0 subcuticular suture. The incision was then covered with Dermabond. Once dry, the patient was awakened and the lead extension was removed without difficulty. She was taken to the recovery room in good condition. There were no complications during this procedure. Grafts/Implants Used: Interstim IPG - Complications none - Admit VTE Documentation VTE Present on Admission: Yes VTE Mechan Device Prophylaxis: SCD's, None Reason prophylaxis not ordered:: Treatment Not Indicated
--- NOTE | 2018-08-08 10:53 | SUR.PHASEII ---
PRESCRIPTION FOR KEFLEX CALLED IN TO [facility]. PT NOTIFIED.
--- NOTE | 2018-09-22 10:00 | PCM.HP.BLA ---
Problem List (1) Urinary frequency Status: Acute (2) Urinary urgency Status: Acute (3) Urinary incontinence, urge Status: Acute History and Physical Date of Admission: 08/08/19 the patient's history and physical was reviewed prior to the procedure, and there were no changes.
--- OUTSIDE RECORDS SUMMARY | 2018-09-24 05:05 | XMS RPT_ITS ---
:1955 Author Organization OHIP Support Name Relationship Address Phone D Unavailable Unavailable Unavailable ROSE MARIE, LIDIA Unavailable [address] + [place] [address] D Unavailable Unavailable Unavailable ROSE MARIE, LIDIA Unavailable [address] + [place] [address] D Unavailable Unavailable Unavailable ROSE MARIE, LIDIA Unavailable [address] + [place] [address] D Unavailable Unavailable Unavailable ROSE MARIE, LIDIA Unavailable [address] + [place] [address] D Unavailable Unavailable Unavailable ROSE MARIE, LIDIA Unavailable [address] + [place] [address] D Unavailable Unavailable Unavailable ROSE MARIE, LIDIA Unavailable [address] + [place] [address] D Unavailable Unavailable Unavailable ROSE MARIE, LIDIA Unavailable [address] + [place] [address] D Unavailable Unavailable Unavailable ROSE MARIE, LIDIA Unavailable [address] + [place] [address] D Unavailable Unavailable Unavailable ROSE MARIE, LIDIA Unavailable [address] + [place] [address] D Unavailable Unavailable Unavailable ROSE MARIE, LIDIA Unavailable [address] + [place] [address] D Unavailable Unavailable Unavailable ROSE MARIE, LIDIA Unavailable [address] + [place] [address] D Unavailable Unavailable Unavailable ROSE MARIE, LIDIA Unavailable [address] + [place] [address] D Unavailable Unavailable Unavailable ROSE MARIE, LIDIA Unavailable [address] + [place] [address] D Unavailable Unavailable Unavailable ROSE MARIE, LIDIA Unavailable [address] + [place] [address] D Unavailable Unavailable Unavailable ROSE MARIE, LIDIA Unavailable [address] + [place] [address] D Unavailable Unavailable Unavailable ROSE MARIE, LIDIA Unavailable [address] + [place] [address] D Unavailable Unavailable Unavailable ROSE MARIE, LIDIA Unavailable [address] + [place] [address] D Unavailable Unavailable Unavailable ROSE MARIE, LIDIA Unavailable [address] + [place] [address] D Unavailable Unavailable Unavailable ROSE MARIE LIDIA Unavailable [address] + [place] [address] D Unavailable Unavailable Unavailable ROSE MARIE, LIDIA Unavailable [address] + [place] [address] Care Team Providers Name Role Phone ISI GANDHI Attending Unavailable ISI GANDHI Referring Unavailable RAY, GÉNESIS Attending Unavailable RAY, GÉNESIS Referring Unavailable RAY, GÉNESIS Referring Unavailable RAY, GÉNESIS Attending Unavailable Angélica Marcelino Attending Unavailable Bay Ramos Referring Unavailable Cristobal Olmos Attending Unavailable RichardBay Referring Unavailable Darya Abreu Attending Unavailable Darya Abreu Referring Unavailable Richard, Bay Primary Care Unavailable Darya Abreu Attending Unavailable Darya Abreu Referring Unavailable Richard, Bay Primary Care Unavailable Wesley Thomas Attending Unavailable Richard, Bay Primary Care Unavailable RichardBay Attending Unavailable Richard, Bay Primary Care Unavailable Richard, Bay Primary Care Unavailable Vincenzo Martinez Attending Unavailable Angélica Marcelino Attending Unavailable RichardBay Referring Unavailable RichardBay Attending Unavailable RichardBay Referring Unavailable Richard, Bay Primary Care Unavailable Bay Ramos Attending Unavailable Bay Ramos Referring Unavailable Richard, Bay Primary Care Unavailable Joe Sanchez Attending Unavailable Joe Sanchez Referring Unavailable Richard, Bay Primary Care Unavailable Basali, Joe Attending Unavailable Basali, Ayman Referring Unavailable Richard, Bay Primary Care Unavailable Richard, Bay Attending Unavailable Richard, Bay Primary Care Unavailable Richard, Bay Referring Unavailable Richard, Bay Attending Unavailable Richard, Bay Referring Unavailable Richard, Bay Primary Care Unavailable Richard, Bay Attending Unavailable Richard, Bay Primary Care Unavailable Marcelino, Angélica Attending Unavailable Richard, Bay Referring Unavailable Marcelino, Angélica Attending Unavailable Richard, Bay Referring Unavailable Richard, Bay Attending Unavailable Richard, Bay Referring Unavailable Richard, Bay Primary Care Unavailable Richard, Bay Attending Unavailable Richard, Bay Referring Unavailable Richard, Bay Primary Care Unavailable TestIsi esqueda Attending Unavailable Richard, Bay Primary Care Unavailable PROBLEMS PROBLEMS DATE TYPE CONDITION / CODE ATTENDING STATUS SOURCE 08/08/2018 Unknown R39.15 - Urgency of Darya Abreu Active [place] urination / Community R39.15(ICD-10) Hospital Repository 08/02/2018 Unknown R09.82 - Postnasal NickolasCristobal Active [place] drip / Community R09.82(ICD-10) Hospital Repository 07/25/2018 Unknown R35.0 - Frequency Darya Abreu Active [place] of micturition / Community R35.0(ICD-10) Hospital Repository 06/05/2018 Unknown I10 - Essential Bay Ramos Active [place] (primary) Community hypertension / Hospital I10(ICD-10) Repository 06/05/2018 Unknown E78.5 - RichardBay frank Active [place] Hyperlipidemia, Community unspecified / Hospital E78.5(ICD-10) Repository 04/21/2018 Unknown J45.909 - RichardBay frank Active [place] Unspecified asthma, Community uncomplicated / Hospital J45.909(ICD-10) Repository 04/21/2018 Unknown M35.00 - Sicca RichardBay frank Active [place] syndrome, Community unspecified / Hospital M35.00(ICD-10) Repository 04/13/2018 Unknown F11.20 - Opioid BasaliJoe Active [place] dependence, Community uncomplicated / Hospital F11.20(ICD-10) Repository 02/20/2018 Unknown J45.20 - Mild Marcelino, Active [place] intermittent Angélica Community asthma, Hospital uncomplicated / Repository J45.20(ICD-10) 02/16/2018 Unknown Z51.81 - Encounter Bay Ramos Active [place] for therapeutic Community drug level Hospital monitoring / Repository Z51.81(ICD-10) 12/27/2017 Unknown E66.9 - Obesity, Bay Ramos Active [place] unspecified / Community E66.9(ICD-10) Hospital Repository 11/04/2017 Active Sicca syndrome, NA Active [facility] unspecified / Main Nikolai M35.00(ICD-10) Repository 10/13/2017 Unknown 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 - Other Testrake, Active [place] instability, right [facility] ankle / Hospital M25.371(ICD-10) Repository PROCEDURES PROCEDURES No Procedure Records FoundRESULTS RESULTS OPERATIVE REPORT Observed: 08/08/2018 Status: F Source: [place] 10:56 AM [facility] REPOSITORY [facility] Medical Records Department [address] [place] [address] Operative Report 08/08/18 1052 MR#: [id number] Acct: [id number] Name: WINTER JOY Rep #: [id number] : 1955 63 From: Darya Abreu MD PCP: Bay Ramos DO Status: [facility] Y Location: [facility] Problem List (1) Urinary frequency Status: Acute (2) Urinary urgency Status: Acute (3) Urinary incontinence, urge Status: Acute Report of Operation Date of Procedure: 08/08/18 Pre-Operative Diagnosis: urinary urgency, frequency, urge incontinence. Post-Operative Diagnosis: same Surgery/Procedure Performed:: Interstim Stage 2 Description of Surgical Findings:: no sign of infection. no impedances. implanted IPG without complication on her right side. lap grinder: Darya Abreu Type of Anesthesia:: MAC/Supplemental/Local Specimen's [...] 08/08/2018 Status: F Source: [place] 8:27 AM [facility] REPOSITORY [facility] Medical Records Department [address] [place] [address] Instructions for Home/Discharge Instructions 08/08/18 0823 MR#: [id number] Acct: [id number] Name: WINTER JOY Rep #: [id number] : 1955 63 From: Darya Abreu MD [...] office for appt Proposed Discharge Date: 08/08/18 08/08/18826 <Electronically signed by Darya Abreu MD> Date Darya Abreu MD CC: Bay Ramos DO PULMONARY VISIT REPORT Observed: 08/02/2018 Status: F Source: [place] 10:05 AM [facility] Pulmonary Medicine [address] [place] [address] OFFICE VISIT Date of Service: 08/02/18 MR#: [id number] Acct: [id number] Name: WINTER JOY Rep #: [id number] : 1955 Provider: Cristobal Olmos MD Age/Sex: 63/F Location: [facility] Status: Signed Assessment AND Plan Problems 1. [...] Changed Plan Detail Follow Up 6 Months ([facility]) HPI 6 M FU: Chief Complaint: [...] Q12H #60 tab 08/02/18 [Rx Confirmed 08/02/18] [facility] Medical History Encounter for screening for malignant [...] Date (if applicable) CC: Bay Ramos DO OPERATIVE REPORT Observed: 07/25/2018 Status: F Source: [place] 9:52 AM [facility] REPOSITORY [facility] Medical Records Department [address] [place] [address] Operative Report 07/25/18 0946 MR#: [id number] Acct: [id number] Name: WINTER JOY Rep #: [id number] : 1955 63 From: Darya Abreu MD PCP: Bay Ramos DO Status: REG SDC Y Location: [address] Problem List (1) Urinary frequency Status: Acute [...] pancho and toe on all four leads. lap grinder: Darya Abreu Type of Anesthesia:: MAC/Supplemental Special [...] passed into the S3 foramen and good pancho response and toe was obtained. This was [...] Reason prophylaxis not ordered:: Treatment Not Indicated 07/25/1852 <Electronically signed by Darya Abreu MD> Date Darya Abreu MD CC: Darya Abreu MD; Bay Ramos DO Signed DISCHARGE INSTRUCTION Observed: 07/25/2018 Status: F Source: [place] 9:43 AM [facility] REPOSITORY [facility] Medical Records Department [address] [place] [address] Instructions for Home/Discharge Instructions 07/25/1842 MR#: [id number] Acct: [id number] Name: WINTER JOY Rep #: [id number] : 1955 63 From: Darya Abreu MD [...] MAMM (CAD), Observed: 07/03/2018 Status: F Source: [place] BILAT 10:37 AM [facility] REPOSITORY [facility] Imaging Services [address] [place] [address] SCREENING MAMM (CAD), BILAT MR#: [id number] Acct: [id number] Name: WINTER JOY Rep #: [id number] : 1955 F 63 From: Tahir Boone MD PCP: Bay Ramos DO Status: REG CLI Study: SCREENING MAMM (CAD), BILAT Date of Exam: 07/03/18 Exam# [id number] Ordering Dr: Wesley Thomas MD MAMMOGRAPHY - [...] delay biopsy of a clinically suspicious abnormality. [id number] Electronically Signed: Tahir Boone MD at 13:32 EST Tel [phone], Service support , CC: Wesley Thomas MD; Bay Ramos DO Cobol Programmer: Signed COMPREHENSIVE METABOLIC Collected: 06/05/2018 Status: F Source: [place] 10:22 AM [facility] REPOSITORY TYPE CODE TESTS RESULT OUT [...] 8 Performed By: #### L500.4050, L500.4100 #### [facility] [address] [place], [place], [id number] LIPID PROFILE Collected: 06/05/2018 Status: F Source: [place] 10:22 AM [facility] REPOSITORY TYPE CODE TESTS RESULT OUT [...] 18 Performed By: #### L500.4050, L500.4100 #### [facility] [address] [facility] [place], [address] EMERGENCY DEPARTMENT Observed: 05/21/2018 Status: F Source: [place] SUMMARY 12:42 AM [facility] REPOSITORY [facility] Medical Records Department [address] [place] [address] Emergency Department Summary 05/20/18 1842 MR#: [id number] Acct: [id number] Name: WINTER JOY Rep #: [id number] : 1955 63 From: Vincenzo Martinez DO [...] Scalp hematoma This note was generated with [employer] dictation software. It may contain incorrect words, spelling, and punctuation that were not noted in review of the chart prior to signing ED Disposition - Plan for ED Patient: Disposition: Home or Assisted Living Chief Complaint: Head Injury Instructions: ED Contusion Scalp Referrals: Bay Ramos, [Primary Care Provider] - 1 Week if not improving What to do if you have Problems For any increased pain, shortness of breath, bleeding, nausea or vomiting, chest pain, or any unexpected problems, contact your Primary Care Provider. Call [facility] ([phone]) or report to the closest Emergency Room. Call 911 if necessary. 05/21/18 0042 <Electronically signed by Vincenzo Martinez DO> Date Vincenzo Martinez DO Cosigner Signature (If Indicated): Date CC: Bay Ramos DO BRAIN/HEAD WITHOUT Observed: 05/20/2018 Status: F Source: [place] CONTRAST 5:08 PM [facility] REPOSITORY [facility] Imaging Services [address] [place] [address] Brain/Head without Contrast MR#: [id number] Acct: [id number] Name: WINTER JOY Rep #: [id number] : 1955 F 63 From: Trevon Chawla DO PCP: Bay Ramos DO Status: REG ER Study: Brain/Head without Contrast Date of Exam: 05/20/18 Exam# [id number] Ordering Dr: Vincenzo Martinez DO STUDY: CT [...] Trevon Chawla DO at 18:19 EDT Tel [phone], Service support , CC: Vincenzo Martinez DO; Bay Ramos DO Cobol Programmer: Signed PULMONARY VISIT REPORT Observed: 05/15/2018 Status: F Source: [place] 4:00 PM [facility] REPOSITORY [facility] [place] [address] [place] [address] OFFICE VISIT Date of Service: 05/15/18 MR#: [id number] Acct: [id number] Name: LORIWINTER IRVING Rep #: [id number] : 1955 Provider: Angélica Marcelino Age/Sex: 63/F Location: [facility] Status: Signed Assessment AND Plan Plan Stop [...] 06/17/16 [History Confirmed 05/15/18] Hydrocodone Bitart/Apap 5-325 [[place] 5MG-325MG] 1 tab PO BID 06/17/16 [History [...] inh INHALATION BID 05/15/18 [History Confirmed 05/15/18] PFS Medical History Encounter for screening for [...] DO PROGRESS Observed: 05/12/2018 Status: COMPLETED Source: [place] 11:12 AM [facility] REPOSITORY HNO ID: [id number] Author: Génesis Hines Service: (none) Author Type: [...] have persistent cough but does see a director new product regularly for PFT's and an underlying diagnosis [...] 1 tablet by mouth twice daily. Ipratropium [place] (ATROVENT) 0.03 % nasal spray amLODIPine (NORVASC) [...] Races >60 Sm Antibody <1.0 AI <0.2 MDS RN Antibody <1.0 AI <0.2 SSA Antibody <1.0 AI >8.0 (H) SSB Antibody <1.0 AI <0.2 Centromere Ab <1.0 AI <0.2 Scleroderma Ab, IgG <1.0 AI <0.2 Natalya 1 Antibody <1.0 AI <0.2 Ribosomal MDS RN <1.0 AI <0.2 Chromatin Antibody <1.0 AI [...] determines if she will stay on it detention or not Génesis Hines MD FOLLOW-UP: 6 months Génesis Hines MD Rheumatology Staff Pager [phone] CNOV Observed: 05/12/2018 Status: COMPLETED Source: [place] 11:10 AM [facility] REPOSITORY Office Visit (CASSIE) WINTER JOY ([id number]) 1955 F Date Time Provider Department 05/12/18 [...] have persistent cough but does see a director new product regularly for PFT's and an underlying diagnosis [...] 1 tablet by mouth twice daily. Ipratropium [place] (ATROVENT) 0.03 % nasal spray amLODIPine (NORVASC) [...] Races >60 Sm Antibody <1.0 AI <0.2 MDS RN Antibody <1.0 AI <0.2 SSA Antibody <1.0 AI >8.0 (H) SSB Antibody <1.0 AI <0.2 Centromere Ab <1.0 AI <0.2 Scleroderma Ab, IgG <1.0 AI <0.2 Natalya 1 Antibody <1.0 AI <0.2 Ribosomal MDS RN <1.0 AI <0.2 Chromatin Antibody <1.0 AI [...] determines if she will stay on it exterminator termite or not Génesis Hines MD FOLLOW-UP: 6 months Génesis Hines MD Rheumatology Staff Pager [phone] Génesis Hines MD 05/12/2018 11:24 AM Signed [...] Fully Assessed Reason for Visit: Sjogren's Disease [2105] Primary Visit Diagnosis:Sjogren's syndrome, with unspecified organ involvement (HCC) [M35.00] Other Visit Diagnoses:Long-term use of Plaquenil [Z79.899] Dry mouth [R68.2] Order(s):CBC [SQCBC] Order #: [id number] FUTURE COMP METABOLIC PANEL [SQCMP] Order #: [id number] FUTURE PROTEIN ELECTROPHORESIS W/INTERP [SQSEPG] Order #: [id number] FUTURE MONOCLONAL PROT BLD W/INTERP [SQMPASRM] Order #: [id number] FUTURE RHEUMATOID FACTOR BL [SQRF] Order #: [id number] FUTURE C3 COMPLEMENT BLD [LMV8LCTS] Order #: [id number] FUTURE C4 COMPLEMENT BLD [YJN6YPOD] Order #: [id number] FUTURE Prescriptions as of 05/12/2018 Sig: HYDROXYCHLOROQUINE [...] NOS [F31.9] ESOPHAGEAL REFLUX [K21.9] 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 CAVUS DEFORMITY OF FOOT [...] 05/12/18 CBC Collected: 05/12/2018 Status: F Source: [place] 10:47 [facility] REPOSITORY TYPE CODE TESTS RESULT OUT OF [...] C3COMP, C4COMP, CMP, RF, SEPG, MPASRM #### [facility] [employer] [address] [place], [place] [address] C3 COMPLEMENT Collected: 05/12/2018 Status: F Source: [place] 10:47 [facility] REPOSITORY TYPE CODE TESTS RESULT OUT OF REFERENCE UNITS RANGE LAB C3COMP 86-166 mg/dL C3 Complement 165 Performed By: #### CBC, C3COMP, C4COMP, CMP, RF, SEPG, MPASRM #### [facility] [employer] [address] [place], [place] [address] C4 COMPLEMENT Collected: 05/12/2018 Status: F Source: [place] 10:47 AM [facility] REPOSITORY TYPE CODE TESTS RESULT OUT OF REFERENCE UNITS RANGE LAB C4COMP 13-46 mg/dL C4 Complement 30 Performed By: #### CBC, C3COMP, C4COMP, CMP, RF, SEPG, MPASRM #### [facility] [employer] [address] [place], [place] [address] COMP METABOLIC PANEL Collected: 05/12/2018 Status: F Source: [place] 10:47 AM [facility] REPOSIT[facility] TYPE CODE TESTS RESULT OUT OF REFERENCE UNITS RANGE LAB TP 6.3-8.0 g/dL Protein, Total 6.8 LAB ALB 3.9-4.9 g/dL Albumin 4.0 LAB CA 8.5-10.2 mg/dL Calcium, Total 9.0 LAB TBIL 0.2-1.3 mg/dL Low Bilirubin, Total <0.2 LAB ALKP 32-117 U/L Alkaline Phosphatase 77 LAB AST 13-35 U/L AST 24 LAB GLU 74-99 mg/dL Glucose 88 Result Comment: The [place] Diabetes Association (ADA) provides guidance for cutoff [...] Standards of Medical Care in Diabetes 2016, [place] [employer]. Diabetes Care. 2016.39(Suppl 1). LAB [...] C3COMP, C4COMP, CMP, RF, SEPG, MPASRM #### [facility] [address] [place], [place] [address] RHEUMATOID FACTOR Collected: 05/12/2018 Status: F Source: [place] 10:47 AM [facility] REPOSITORY TYPE CODE TESTS RESULT OUT OF REFERENCE UNITS RANGE LAB RF <16 IU/mL High Rheumatoid 35 Factor Performed By: #### CBC, C3COMP, C4COMP, CMP, RF, SEPG, MPASRM #### [facility] [address] [place], [place] [address] PROTEIN ELECTROPHOR. Collected: 05/12/2018 Status: F Source: [place] 10:47 AM [facility] REPOSITORY TYPE CODE TESTS RESULT [...] Staff Review Reviewed by Jayy Smiley M.D. ([id number]) Performed By: #### CBC, C3COMP, C4COMP, CMP, RF, SEPG, MPASRM #### [facility] [address] [place], [place] [address] MONOCLONL PROTEIN,BL Collected: 05/12/2018 Status: F Source: [place] 10:47 AM [facility] REPOSITORY TYPE CODE TESTS RESULT OUT OF REFERENCE UNITS RANGE LAB MPAIGG 717-1411 mg/dL MPA Serum 1280 IgG LAB MPAIGA 78-391 mg/dL Low MPA Serum 48 IgA LAB MPAIGM 53-334 mg/dL MPA Serum 73 IgM LAB MPAK 534-1267 mg/dL Serum (NOTE) [place] Result Comment: [place] result =279 mg/dL. [facility] reference range. [employer] [place] Reference Range: 176-443 mg/dL Test performed by: [place] This assay provides a measurement of [...] (NOTE) Result Comment: Lambda result =119 mg/dL. [facility] reference range. [employer] Lambda Reference Range: 91-240 mg/dL Test performed by: [employer], [place], [place] This assay provides a measurement of [...] 1-3 MPA Sylvie/Funk Ratio (NOTE) Result Comment: [place]/Lambda ratio =2.34 [facility] reference range. [facility] [place]/Lambda Ratio Reference Range: 1.29-2.55 Test performed by: [place] [employer] This assay provides a measurement of [...] Reviewed by Staff Review Jayy Smiley M.D. ([id number]) Performed By: #### CBC, C3COMP, C4COMP, CMP, RF, SEPG, MPASRM #### [facility] [address] [place] [id number] CNPN Observed: 05/04/2018 Status: COMPLETED Source: [place] 12:00 AM [facility] REPOSITORY Telephone (TruckTrackUBD) WINTER JOY ([id number]) 1955 F Date Time Provider Department 05/04/18 GÉNESIS HINES During your visit today, we recorded the following information about you: Ofelia Jones 05/04/2018 10:03 AM Signed .[place] is [...] calling: self Call patient at: at home [phone] (home) [phone] (cell) Was an appointment scheduled: No Closing statement: Symptom Call: Thank you for calling [facility], your call is very important. A nurse [...] NOS [F31.9] ESOPHAGEAL REFLUX [K21.9] ADOLPH'S SYNDROME [CKS1481] INVALID FOR* More... CAVUS DEFORMITY OF FOOT [...] on 05/04/18 Observed: 04/22/2018 Status: F Source: [place] RESPIRATORY PANEL 9:50 AM [facility] REPOSITORY RP PANEL ADENOVIRUS Not Detected [...] acid amplification Performed By: #### M100.638 #### [facility] [address] [place] [address], [address] Observed: 04/21/2018 Status: F Source: [place] CULTURE, SPUTUM 2:30 PM [facility] REPOSITORY Gram Stain Acceptable Specimen? Yes (<25 Epithelial cells per/lpf) Gram Stain 2+ Gram positive cocci Very Rare Epithelial cells No White Blood Cells Resp. Culture Mixed normal respiratory ethan. No Haemophilus, Streptococcus pneumoniae, beta-hemolytic Streptococcus or Staphylococcus aureus isolated. Performed By: #### M100.0800 #### [facility] [address] [place], [place], [address] CHEST PA AND LATERAL Observed: 04/21/2018 Status: F Source: [place] 2:15 PM [facility] REPOSITORY [facility] Imaging Services [address] [place] [address] Chest PA and Lateral MR#: [id number] Acct: [id number] Name: WINTER JOY Rep #: [id number] : 1955 F 63 From: Tio Pena MD PCP: Bay Ramos DO Status: REG CLI Study: Chest PA and Lateral Date of Exam: 04/21/18 Exam# [id number] Ordering Dr: Bay Ramos DO STUDY: X-RAY [...] Service support , CC: Bay Ramos DO Cobol Programmer: Signed CBC W/DIFF, AUTOMATED Collected: 04/21/2018 Status: F Source: [place] 1:56 PM [facility] REPOSITORY TYPE CODE TESTS RESULT OUT [...] Lymph 2.03 Performed By: #### L100.0100 #### [facility] [address] [facility] [place], [address] SPINE LUMBAR Observed: 04/20/2018 Status: F Source: [place] (ROUTINE) 11:03 AM [facility] REPOSITORY [facility] Imaging Services [address] [place] [address] Spine Lumbar (Routine) MR#: [id number] Acct: [id number] Name: MARTALOGANWINTER Rep #: [id number] : 1955 F 63 From: Delores Cruz PCP: Bay Ramos DO Status: REG CLI Study: Spine Lumbar (Routine) Date of Exam: 04/20/18 Exam# [id number] Ordering Dr: Joe Sanchez MD STUDY: MRI [...] CC: Joe Sanchez MD; Bay Ramos DO Cobol Programmer: Signed URINE DRUG SCREEN Collected: 03/30/2018 Status: F Source: [place] (VISTA) 1:57 PM [facility] REPOSITORY Order Comment: Comments: [id number] RUN LOWEST TEST, TRAMADOL List of Drugs [...] Normal NEGATIVE Performed By: #### L505.5000 #### [facility] [address] [place], [place], [address] MISCELLANEOUS LAB Collected: 03/30/2018 Status: F Source: [place] PROCEDURE 1:57 PM [facility] REPOSITORY Order Comment: Comments: [id number] RUN LOWEST TEST, TRAMADOL Test(s) Ordered: [id number] RUN LOWEST TEST TYPE CODE TESTS RESULT OUT OF RANGE REFERENCE UNITS LAB L801.1541 Normal [facility] TEST Result Comment: [id number] 6+OXYCODONE-BUND (ng/mL) DRUG RESULT SCREEN CUTOFF ____ Amphetamines,Urine Negative ng/mL 1000 Amphetamine test includes Amphetamine and Methamphetamine. Barbiturates Negative ng/mL 200 Benzodiazepines Negative ng/mL 200 Cannabinoid Negative ng/mL 20 Cocaine (Metab) Negative ng/mL 300 Opiates Negative ng/mL 300 Opiates test includes Codeine, Morphine, Hydromorphone, Hydrocodone. Oxycodone/Oxymorphone,Urine Negative ng/mL 300 Test includes Oxydodone and Oxymorphone. [facility] ORIGINAL REPORT ON FILE IN LAB CONTAINS ADDITIONAL TEST SITE INFORMATION. Performed By: #### L801.1541 #### [facility] [address] [facility] [place], [address] MISCELLANEOUS LAB Collected: 03/30/2018 Status: F Source: [place] PROCEDURE 2 1:57 PM [facility] REPOSITORY Order Comment: Comments: [id number] RUN LOWEST TEST, TRAMADOL List Test(s) Ordered by Physician: [id number], TRAMADOL TYPE CODE TESTS RESULT OUT OF RANGE REFERENCE UNITS LAB L801.1543 Normal [facility] TEST 2 Result Comment: TEST RESULT LIMITS Tramadol Screen, Urine Negative ng/mL Cutoff = 200 TESTING PERFORMED AT [facility]. ORIGINAL REPORT ON FILE IN LAB CONTAINS ADDITIONAL TEST SITE INFORMATION. Performed By: #### L801.1543 #### [facility] [address] [place], [address] PULMONARY VISIT REPORT Observed: 02/20/2018 Status: F Source: [place] 3:32 PM [facility] REPOSITORY [facility] [place] [address] [place] [address] OFFICE VISIT Date of Service: 02/20/18 MR#: [id number] Acct: [id number] Name: WINTER JOY Rep #: [id number] : 1955 Provider: Angélica Marcelino Age/Sex: 62/F Location[facility] Status: Signed Assessment AND Plan 1. Mild [...] Intake Visit Reasons: 4 weeks post op Apprenticeship Training Representative Required: No Accompanied by: Self Is patient [...] 06/17/16 [History Confirmed 11/17/17] Hydrocodone Bitart/Apap 5-325 [[place] 5MG-325MG] 1 tab PO BID 06/17/16 [History [...] PRN #30 ml 02/20/18 [Rx Confirmed 02/20/18] [facility] Medical History Encounter for screening for malignant [...] R09.82 02/20/18 1532 <Electronically signed by Angélica Marcelino NP-C> Date Angélica Marcelino EARLY LEARNING TEACHER-C Cosigner Signature: Date (if applicable) CC: Bay Ramos DO CBC W/DIFF, AUTOMATED Collected: 02/16/2018 Status: F Source: [place] 11:23 AM [facility] REPOSITORY TYPE CODE TESTS RESULT OUT [...] Lymph 2.48 Performed By: #### L100.0100 #### [facility] [address] [place], [address] [facility] Observed: 02/03/2018 Status: COMPLETED Source: [place] 12:00 AM [facility] REPOSITORY Telephone (TruckTrackUBD) WINTER JOY ([id number]) 1955 F Date Time Provider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
== END 2018-08-08 09:19 | disposition home or self-care (01) ==
LOC: SDC 05:59 → AC 06:01
PROVIDERS: Family Provider Family Medicine; PCP Family Medicine; Referring Provider Urology; Visit Provider Urology
PROC: (CPT 64590; principal; 2018-08-08 07:50)
DX: N39.41 Urge incontinence (principal); R35.0 Frequency of micturition; I10 Essential (primary) hypertension; J45.909 Unspecified asthma, uncomplicated; K21.9 Gastro-esophageal reflux disease without esophagitis; M06.9 Rheumatoid arthritis, unspecified; M79.7 Fibromyalgia; M35.00 Sjogren syndrome, unspecified; F17.200 Nicotine dependence, unspecified, uncomplicated; Z79.899 Other long term (current) drug therapy
CPT/HCPCS: 00400; 64590; J7120; C1767

== ENCOUNTER → 2018-11-16 10:43 | Outpatient (CLI) | payer MEDICAID, SELFPAY ==
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
== END ==
PROVIDERS: Family Provider Family Medicine; PCP Family Medicine; Referring Provider Nurse Practitioner Family; Visit Provider Nurse Practitioner Family
DX: M54.2 Cervicalgia (principal)
CPT/HCPCS: 72040

== ENCOUNTER → 2018-12-06 09:45 | Outpatient (CLI) | payer MEDICAID, SELFPAY ==
[2018-12-06 11:34] LABS: Anion Gap 9 (5-15); BUN 24 mg/dL (7-18); Calcium,Total 8.6 mg/dL (8.5-10.1); Chloride 101 mmol/L (98-107); Creatinine, Serum 0.78 mg/dL (0.55-1.02); EST Glomerular Filtration Rate 80 mL/min (>60); Est Glom Filt Rate - Afr Amer 97 mL/min (>60); Glucose 118 mg/dL (74-106); Potassium 4.3 mmol/L (3.5-5.1); Sodium Level 132 mmol/L (136-145)
== END ==
PROVIDERS: Family Provider Family Medicine; PCP Family Medicine; Referring Provider Family Medicine; Visit Provider Family Medicine
DX: E87.1 Hypo-osmolality and hyponatremia (principal)
CPT/HCPCS: 36415; 80048

== ENCOUNTER 2018-12-15 08:07 | Emergency (ER) | payer MEDICAID, SELFPAY ==
[2018-12-15 08:10] VITALS: BP 122/72; PULSE 94; RESP 18; TEMP 37; O2SAT 97; BMI 40.4
[2018-12-15] MEDS: 0.9% Normal Saline 1,000 ML 1000 ML IV (08:44)
[2018-12-15] MEDS: Dicyclomine 10 MG Capsule 20 MG PO (08:44)
[2018-12-15] MEDS: Ondansetron 4 MG/2 ML Vial IV (08:45)
[2018-12-15 08:52] LABS: Absolute Lymphocyte Count 0.61 X10^3/ul (0.83-4.51); Absolute Neutrophil Count 7.3 X10^3/uL (2.0-7.7); Hematocrit 38.2 % (37-47); Lymphocyte # 0.61 X10^3/ul (4.0); Lymphocyte % 7.2 % (19-41); Mean Corp Hgb Conc 31.4 g/gl (32-36); Mean Corpuscular Hgb 27.3 pg (27.0-32.0); Mean Platelet Vol. 8.2 fl (6.2-12.0); Monocyte# 0.58 X10^3/uL; Monocyte% 6.8 % (0-10); Neutrophil # 7.27 X10^3/uL (2.7-7.7); Neutrophil % 85.8 % (47-70); POSITIVE COUNT NO; POSITIVE DIFFERENTIAL NO; POSITIVE MORPHOLOGY NO; Platelet Count 322 K/mm3 (150-450); RBC Distribution Width CV 15.4 % (11.6-14.6); RBC Distribution Width SD 49.6 fl (35.1-43.9); Red Blood Count 4.39 M/mm3 (4.2-5.4); White Blood Count 8.5 K/mm3 (4.4-11.0)
[2018-12-15 09:08] LABS: ALB/GLOB Ratio 0.8 RATIO (0.9-2.4); AST(SGOT) 20 U/L (15-37); Alanine Aminotransfer ALT/SGPT 20 U/L (13-56); Albumin, Serum 3.5 g/dL (3.2-5.0); Alkaline Phosphatase 80 U/L (45-117); Anion Gap 6 (5-15); BUN 24 mg/dL (7-18); BUN/Creat Ratio 25.4 RATIO (10-20); Chloride 106 mmol/L (98-107); Creatinine, Serum 0.94 mg/dL (0.55-1.02); EST Glomerular Filtration Rate 64 mL/min (>60); Est Glom Filt Rate - Afr Amer 77 mL/min (>60); Estimated Creatinine Clearance 49.08 ml/min; Globulin 4.4 g/dL (2.2-4.2); Glucose 92 mg/dL (74-106); Lipase 112 U/L (73-393); Potassium 4.2 mmol/L (3.5-5.1); Protein, Total 7.9 g/dL (6.4-8.2); Sodium Level 135 mmol/L (136-145)
--- NOTE | 2018-12-15 09:25 | ED.DCSUM_ITS ---
- ER Visit Summary Date of Service: 12/15/18 Chief Complaint: Nausea vomiting and diarrhea History of Present Illness: The patient is a 63 F who has had the above symptoms since yesterday. She states that she has vomited multiple times and has had multiple episodes of nonbloody diarrhea. She has burning in her abdomen that is diffuse. Nothing makes it better or worse. Denies any urinary symptoms. Her son had similar symptoms last week. She denies any fevers. She took no medications for this at home. Physical Examination: Vital signs reviewed. HEENT exam unremarkable. Heart is regular rate and rhythm without murmurs. Lungs are clear to auscultation. Abdomen is soft with mild diffuse tenderness. Extremities reveal no edema. Skin exam normal. Neurologic exam normal. Test Results: Laboratory studies are unremarkable except for sodium of 135 Emergency Department Course and Treatment: Patient was given IV fluids, Zofran and Bentyl. She feels much better. I will give her Bentyl and Zofran to take at home. This is likely a viral etiology. I do not feel she requires a CAT scan as her white blood cell count is normal and she has a benign exam. Treatment Plan: [] Disposition: Discharged Impression: Nausea vomiting and diarrhea This note was generated with [employer] dictation software. It may contain incorrect words, spelling, and punctuation that were not noted in review of the chart prior to signing ED Disposition - Plan for ED Patient: Referrals: Bay Ramos DO [Primary Care Provider] -
--- NOTE | 2018-12-15 09:25 | ED.DEP ---
ED Disposition - Plan for ED Patient: Disposition: Home or Assisted Living Instructions: ED Diet Vomiting Diarrhea Prescriptions: Ondansetron [Zofran Odt] 4 mg PO Q8H PRN PRN #10 tab PRN Reason: Nausea Dicyclomine HCl [Bentyl] 20 mg PO TIDAC #20 cap Referrals: Bay Ramos DO [Primary Care Provider] -
[2018-12-15 10:23] VITALS: BP 105/67; PULSE 87; RESP 16; O2SAT 95
== END 2018-12-15 10:23 | disposition home or self-care (01) ==
PROVIDERS: Emergency Provider Emergency Medicine; Family Provider Family Medicine; PCP Family Medicine
DX: R11.2 Nausea with vomiting, unspecified (principal); R19.7 Diarrhea, unspecified; M79.7 Fibromyalgia; M06.9 Rheumatoid arthritis, unspecified; M35.00 Sjogren syndrome, unspecified; Z79.899 Other long term (current) drug therapy
CPT/HCPCS: 80053; 83690; 85025; 96361; 96374; 99284; J7030; A4216; J2405

== ENCOUNTER → 2018-12-26 12:52 | Outpatient (CLI) | payer MEDICAID, SELFPAY ==
[2018-12-15 08:10] VITALS: BMI 40.4
--- NOTE | 2018-12-26 12:54 | RAD_ITS ---
STUDY: X-RAY - RIGHT HAND REASON FOR EXAM: Female, 63 years old. Pain. Deformity of third distal interphalangeal joint. TECHNIQUE: 3 view(s) of the hand. COMPARISON: None. FINDINGS: There is no evidence of fracture or dislocation. There is flexion of the right middle finger at the level of the distal interphalangeal joint. There are no significant degenerative changes. There are no radiodense foreign bodies. RAD/Hand Min 3 Views IMPRESSION: No fracture or dislocation in the left hand. Flexion of the right middle finger at the level of the distal interphalangeal joint.. Electronically Signed: Douglas Cardoso, at 14:29 EDT Tel , Service support ,
== END ==
PROVIDERS: Family Provider Family Medicine; PCP Family Medicine; Referring Provider Family Medicine; Visit Provider Family Medicine
DX: M79.644 Pain in right finger(s) (principal)
CPT/HCPCS: 73130

== ENCOUNTER → 2019-01-29 | Outpatient (CLI) | payer MEDICAID, SELFPAY ==
[2019-01-01 10:18] VITALS: BMI 40.4
[2019-01-29 09:11] VITALS: BMI 40.4
--- NOTE | 2019-01-29 11:21 | US_ITS ---
STUDY: RENAL ULTRASOUND - COMPLETE REASON FOR EXAM: Female, 63 years old. Right flank pain. TECHNIQUE: Ultrasound evaluation of the kidneys was performed with real-time and static weller-scale imaging. COMPARISON: CT abdomen with oral and IV contrast December 10, 2015. FINDINGS: RIGHT KIDNEY: Normal location of the right kidney, which is borderline atrophic. The right kidney measures 8.4 x 5.2 x 4.8 cm. There is a normal cortex of the right kidney. The renal cortex measures 1.3 cm. There is no right renal mass or cyst. Small mid to upper pole stones seen on the 2016 CT are not evident in this exam. There is no right hydronephrosis. DISTAL RIGHT URETER: There is non-visualization of the distal right ureter. There is no demonstrated right ureterovesical junction calculus. There is a visualized right ureteral jet. LEFT KIDNEY: Normal location of the left kidney, which is normal in size. The left kidney measures 10.1 x 4.9 x 5.2 cm. There is a normal cortex of the left kidney. The renal cortex measures 2.0 cm. There is no left renal mass or cyst. There are no left renal calculi. There is no left hydronephrosis. DISTAL LEFT URETER: There is non-visualization of the distal left ureter. There is no demonstrated left ureterovesical junction calculus. There is no demonstrated left ureteral jet. BLADDER: The urinary bladder has a volume of 92.3 ml at the time of scanning. There is a normal 3 mm wall thickness of the distended urinary bladder. There is no demonstrated mass within the urinary bladder. There are no demonstrated bladder calculi. US/Kidney and Bladder IMPRESSION: 1. Normal ultrasound of the left kidney and urinary bladder. 2. Borderline atrophy of the right kidney. Small nonobstructing mid to upper pole stones identified on CT 2015 are not apparent today. No hydronephrosis. Electronically Signed: Db Anguiano MD at 13:42 EDT , Service support ,
== END | disposition home or self-care (01) ==
LOC: US 11:20
PROVIDERS: Family Provider Family Medicine; PCP Family Medicine; Referring Provider Urology; Visit Provider Urology
DX: R10.9 Unspecified abdominal pain (principal)
CPT/HCPCS: 76770

== ENCOUNTER → 2019-02-12 10:19 | Outpatient (CLI) | payer MEDICAID, SELFPAY ==
[2019-02-12 10:02] VITALS: BMI 40.4
--- NOTE | 2019-02-12 10:21 | RAD_ITS ---
STUDY: X-RAY - RIGHT HAND, ATTENTION THIRD FINGER REASON FOR EXAM: Female, 63 years old. Injury TECHNIQUE: 3 view(s) of the finger were obtained. COMPARISON: None. FINDINGS: Normal metacarpal head. Normal metacarpophalangeal joint. Normal proximal phalanx. Normal middle phalanx. Normal distal phalanx. Normal proximal interphalangeal joint. Normal distal interphalangeal joint. RAD/Finger(s) Min 2 Views IMPRESSION: No evidence of acute osseous injury. Electronically Signed: Demetrio Faria DO at 22:51 EDT , Service support ,
== END ==
PROVIDERS: Family Provider Family Medicine; PCP Family Medicine; Referring Provider Physician Assistant; Visit Provider Physician Assistant
DX: M79.644 Pain in right finger(s) (principal)
CPT/HCPCS: 73140

== ENCOUNTER → 2019-06-07 10:46 | Outpatient (CLI) | payer MEDICAID, SELFPAY ==
[2019-02-12 10:02] VITALS: BMI 40.4
[2019-06-07 12:44] LABS: Cholesterol 183 mg/dL (200); High Density Lipoprotein 68 mg/dL; Triglycerides 105 mg/dL; Very Low Density Lipoprotein 21 mg/dL (5-40)
== END ==
PROVIDERS: Family Provider Family Medicine; PCP Family Medicine; Visit Provider Family Medicine
DX: E78.5 Hyperlipidemia, unspecified (principal)
CPT/HCPCS: 36415; 80061

== ENCOUNTER → 2019-07-04 11:08 | Outpatient (CLI) | payer MEDICAID, SELFPAY ==
[2019-02-12 10:02] VITALS: BMI 40.4
--- NOTE | 2019-07-04 11:11 | BI_ITS ---
MAMMOGRAPHY - BILATERAL SCREENING REASON FOR EXAM: Female, 64 years old. Routine annual screening examination. PERTINENT HISTORY: Non-contributory. TECHNIQUE: Digital bilateral breast pepe (3D mammographic acquisition) in the CC and MLO projections. 2-D mediolateral oblique (MLO) and craniocaudad (CC) views of both breasts were obtained. CAD: Full Field Digital Mammography with Computer Added Detection was performed. COMPARISON: Comparison is made with prior study dated July 03, 2018 and June 20, 2017. FINDINGS: Breast Composition: The breasts are almost entirely fatty. There are no dominant masses or suspicious calcifications. Stable small benign-appearing bilateral axillary lymph nodes. No other significant abnormalities are identified. There has been no significant change since the prior study. BI/SCREENING MAMM (CAD), BILAT IMPRESSION: Stable bilateral screening mammogram. Yearly follow-up mammogram recommended. (A) ASSESSMENT CATEGORY: BIRADS Category 2: Benign. A letter regarding these results will be sent to the patient by the facility within 30 days. Approximately 10% of breast cancers are not detected by mammography. A normal mammogram should not delay biopsy of a clinically suspicious abnormality. [id number] Electronically Signed: Tahir Boone, at 12:42 EST , Service support ,
== END ==
PROVIDERS: Family Provider Family Medicine; PCP Family Medicine; Referring Provider Family Medicine; Visit Provider Family Medicine
DX: Z12.31 Encounter for screening mammogram for malignant neoplasm of breast (principal)
CPT/HCPCS: 77067

== ENCOUNTER → 2019-07-06 20:00 | Outpatient (CLI) | payer MEDICAID, SELFPAY ==
[2019-02-12 10:02] VITALS: BMI 40.4
== END ==
PROVIDERS: Family Provider Family Medicine; PCP Family Medicine; Referring Provider Family Medicine; Visit Provider Family Medicine
DX: G47.33 Obstructive sleep apnea (adult) (pediatric) (principal); G47.10 Hypersomnia, unspecified; R06.83 Snoring; R53.83 Other fatigue
CPT/HCPCS: 95810

== ENCOUNTER → 2019-08-13 07:42 | Outpatient (CLI) | payer MEDICAID, SELFPAY ==
[2019-01-29 09:11] VITALS: BMI 40.4
[2019-02-12 10:02] VITALS: BMI 40.4
--- NOTE | 2019-08-14 08:11 | PFT ---
INTRODUCTION: The patient is a 64-year-old female that presents for pulmonary function studies secondary to a diagnosis of asthma. Respiratory therapy reports good patient effort. Bronchodilators were used during testing. INTERPRETATION: Forced expiration spirometry demonstrates no evidence of a large airways obstructive ventilatory defect. There was no significant response to aerosolized bronchodilators. Spirograms are of good quality and plateau normally. Body plethysmography was performed and reveals a total lung capacity at the lower limits of normal. Diffusing capacity by single breath CO is reduced at 45% of predicted. IMPRESSION: Total lung capacity at the lower limits of normal may indicate an early restrictive ventilatory impairment. Diffusing capacity is disproportionately reduced.
== END ==
PROVIDERS: Family Provider Family Medicine; PCP Family Medicine; Referring Provider Nurse Practitioner Acute Care; Visit Provider Nurse Practitioner Acute Care
DX: J45.20 Mild intermittent asthma, uncomplicated (principal)
CPT/HCPCS: 94060; 94726; 94729

== ENCOUNTER 2019-09-12 14:30 | Outpatient (RCR) | payer MEDICAID, SELFPAY ==
[2019-02-12 10:02] VITALS: BMI 40.4
[2019-08-15 09:35] VITALS: BMI 40.4
--- NOTE | 2019-08-31 15:08 | HP.PTEVAL_ITS ---
Patient's Visit Information JOCE JOY is a 64 year old F referred to Physical Therapy by Shailesh Murrieta MD with a diagnosis of PAIN IN LEFT KNEE,LUMBAROSACRAL RADICULOPATHY ,SPONDYLOSIS. Date of Evaluation: 08/31/19 Physical Therapist: Balta Durán, PT, Cert MDT, OCS - Visit Plan Frequency: 2x /Week Duration: 4 Weeks Plan: PT INTERVENTIONS AQUATIC PT ROM/STRENGTH LEFT KNEE ,DLS,FLEXALITY,POSTURAL EX'S - Subjective Findings: This 64 y/o female presents to physical therapy with pain in left knee and lumbar pain. Patient has had left knee pain for 2 years and lumbar pain many years. Patient located global and symmtrical L-S pain with parathesia in legs. Knee pain worse with bending unable to squatting ,kneeling ,pain with stairs and extended walking. Lumbar pain worse with walking ,standing ,bending,li fting,sitting. Alleviating factors heat ,hot bath. Bowel/bladder -. Coughing /sneezing -. Patient seen pain management with epidural injections in neck and back. Plan for burn nerve. Patient pain affects ADL'S ,housework task and function. Patient has had PT in past. Patient symptoms affects QOL. SOCAIL: single. VOCATION: disability - Pain Bilateral Back Pain Intensity (Out of 10): 5 Pain Intensity Range: 5, 10 Comment: walking Left Knee Pain Intensity (Out of 10): 5 Pain Intensity Range: 10 Comment: walkng - Objective POSTURE: mild foward posture. GAIT: reciprocal pattern mild foward posture. NEURO: denies parathesia/tingling,reflexes L3-4,L4-5,L5-S1 1/3. SYMMMTRIES : align. PALAPTION: LS-SI. MMT: QUADS/HAMS 4-/5,HIP FLEXION R 4-/5,LEFT 3+/5,ANKLE 4/5. LUMBAR ROM: flexion min loss,extension mod loss ,side glides min/mod loss. FLEXABILITY: hams mod tight. AROM: 0-110 supine knee flexion L ,0-130 degrees supine flexion L. STAIRS: one s - Special Tests L/S Slump test left side: Negative L/S Slump test right side: Negative L/S Left Straight Leg Raise: Negative L/S Right Straight Leg Raise: Negative Lumbar Standing: Flexion - Mechanical Response: No effect Lumbar Standing: Flexion - Symptoms During Testing: No effect Lumbar Standing: Flexion - Symptoms After Testing: No effect Lumbar Standing: Extension - Mechanical Response: No effect Lumbar Standing: Extension - Symptoms During Testing: Increases Lumbar Standing: Extension - Symptoms After Testing: No worse Lumbar Standing: Right Side [place] - Symptoms During Testing: No effect Lumbar Standing: Right Side [place] - Symptoms After Testing: No effect Lumbar Standing: Left Side [place] - Mechanical Response: No effect Lumbar Standing: Left Side [place] - Symptoms During Testing: No effect Lumbar Standing: Left Side [place] - Symptoms After Testing: No effect L Knee [place] - Meniscus: Negative L Knee Valgus - MCL: Negative L Knee Varus - LCL: Negative L Knee Patellar Apprehension - PFS: Negative L Knee Patellar Grind - PFS: Negative - Goals Goal 1:: Patient to be Independant with Aquatic PT Goal Time Frame: 4-6 Weeks Goal 2:: Patient to decrease lumbar and knee pain by 40% or> to improve function with walking and standing. Goal Time Frame: 4-6 Weeks Goal 3:: Patient improve left knee ROM flexion by 5-10 degrees to improve stairs. Goal Time Frame: 4-6 Weeks Goal 4:: Patient to improve lumbar ROM for function of recovery. Goal Time Frame: 4-6 Weeks Goal 5:: Patient to increase strength of quads/hams 4/5 to improve function with gait. Goal Time Frame: 4-6 Weeks Goal 6:: Patient to improve LFES score by 5 points or > to improve QOL. Goal Time Frame: 4-6 Weeks - Rehabilitation Potential Physical Therapy Diagnosis: This patient has left knee pain and lumbar pain with decrease ROM ,strength,impairs walking standing and ADL'S thus benifit from skilled PT. Rehabilitation Potential: Good - Anticipated Interventions Patient/Client Instruction: Educate patient on: Condition, Plan of Care For the Purpose of:: To decrease pain, To increase ROM, To improve muscle performance and motor function, To improve ability to perform ADL's, To increase tolerance to activity/condition/position, To improve performance and independence with ADL's, To improve ability of physical actions for home/community/work/leisure, To improve gait and locomotor functions, To improve health of tissue, To increase flexibility/ROM, To improve balance, To improve a bility to perform tasks related to life management Therapeutic Exercise to Include: Strength training, Postural training, Flexibilty training, Gait and locomotor training, In an aquatic setting, Active ROM, Dynamic Lumbar Stabilization Comment: BLE L For the Purpose of:: To decrease pain, To increase ROM, To improve muscle performance and motor function, To improve ability to perform ADL's, To increase tolerance to activity/condition/position, To improve ability of physical actions for home/community/work/leisure, To improve health of tissue, To decrease soft tissue restriction, To increase flexibility/ROM, To improve ability to perform tasks related to life management Thank you for the opportunity to evaluate your patient. For Medicare and Medicare HMO plans, please review the plan of care and approve it. It will need to be FAXED BACK to us at [phone] for Medicare purposes. For Medicare only, by signing this I certify the plan of care. Please let me know if there are questions or concerns regarding this plan of care. Physician Signature: Date:
--- NOTE | 2019-11-23 07:30 | HP.PT.NRP ---
JOCE JOY was seen in my office for initial evaluation on 08/31/19. The following Plan of Care was established for this patient: Initial Frequency: 2x /Week Initial Duration: 4 Weeks Patient/Client Instruction: Educate patient on: Condition, Plan of Care For the Purpose of:: To decrease pain, To increase ROM, To improve muscle performance and motor function, To improve ability to perform ADL's, To increase tolerance to activity/condition/position, To improve performance and independence with ADL's, To improve ability of physical actions for home/community/work/leisure, To improve gait and locomotor functions, To improve health of tissue, To increase flexibility/ROM, To improve balance, To improve ability to perform tasks related to life management Therapeutic Exercise to Include: Strength training, Postural training, Flexibilty training, Gait and locomotor training, In an aquatic setting, Active ROM, Dynamic Lumbar Stabilization For the Purpose of:: To decrease pain, To increase ROM, To improve muscle performance and motor function, To improve ability to perform ADL's, To increase tolerance to activity/condition/position, To improve ability of physical actions for home/community/work/leisure, To improve health of tissue, To decrease soft tissue restriction, To increase flexibility/ROM, To improve ability to perform tasks related to life management This patient was last seen in our office 09/12/19. Pertinent comments regarding their Physical therapy will appear below: Patient was seen for Aquatic therapy for knee and lumbar spine for 3 visits focusing on ROM/strength and decreasing pain,thus is d/c. At this point I will be discontinuing this patient from physical therapy. I would be happy to see this patient again in the future if found appropriate by the physician. Thank you! Balta Durán, PT, Cert MDT, OCS
== END 2019-09-12 19:00 | disposition home or self-care (01) ==
LOC: PT 14:30
PROVIDERS: Family Provider Family Medicine; PCP Family Medicine; Referring Provider Anesthesiology Pain Medicine; Visit Provider Anesthesiology Pain Medicine
DX: M51.37 Other intervertebral disc degeneration, lumbosacral region (principal); M54.17 Radiculopathy, lumbosacral region; M47.817 Spondylosis without myelopathy or radiculopathy, lumbosacral region; M46.96 Unspecified inflammatory spondylopathy, lumbar region; M25.562 Pain in left knee
CPT/HCPCS: 97113; 97162

== ENCOUNTER → 2019-10-12 20:00 | Outpatient (CLI) | payer MEDICAID, SELFPAY ==
[2019-02-12 10:02] VITALS: BMI 40.4
[2019-08-15 09:35] VITALS: BMI 40.4
== END ==
PROVIDERS: Family Provider Family Medicine; PCP Family Medicine; Referring Provider Internal Medicine Critical Care Medicine; Visit Provider Internal Medicine Critical Care Medicine
DX: G47.33 Obstructive sleep apnea (adult) (pediatric) (principal); J45.20 Mild intermittent asthma, uncomplicated; R53.83 Other fatigue; R06.83 Snoring
CPT/HCPCS: 95811

== ENCOUNTER → 2019-11-05 10:00 | Outpatient (CLI) | payer MEDICAID, SELFPAY ==
[2019-08-15 09:35] VITALS: BMI 40.4
== END ==
PROVIDERS: PCP Family Medicine; Referring Provider Nurse Practitioner Acute Care; Visit Provider Nurse Practitioner Acute Care
DX: Z46.89 Encounter for fitting and adjustment of other specified devices (principal)

== ENCOUNTER → 2020-02-01 14:59 | Outpatient (CLI) | payer MEDICAID, SELFPAY ==
[2019-08-15 09:35] VITALS: BMI 40.4
[2020-02-05 12:07] LABS: Clam <0.10 kU/L (Class 0); Codfish <0.10 kU/L (Class 0); Crab <0.10 kU/L (Class 0); Lobster <0.10 kU/L (Class 0); Shrimp <0.10 kU/L (Class 0); Soybean <0.10 kU/L (Class 0); Wheat <0.10 kU/L (Class 0)
[2020-02-05 12:28] LABS: Milk (Cow) <0.10 kU/L (Class 0); Yeast <0.10 kU/L (Class 0)
[2020-02-06 09:08] LABS: Alternaria tenuis <0.10 kU/L (Class 0); Ash, White <0.10 kU/L (Class 0); Aspergillus fumigatus <0.10 kU/L (Class 0); Bermuda Grass <0.10 kU/L (Class 0); Birch <0.10 kU/L (Class 0); Black Walnut <0.10 kU/L (Class 0); Cat Hair / Dander,Stand <0.10 kU/L (Class 0); Cedar, Mountain <0.10 kU/L (Class 0); Cladosporium herbarum <0.10 kU/L (Class 0); Cockroach, American <0.10 kU/L (Class 0); Cottonwood <0.10 kU/L (Class 0); D farinae Mite <0.10 kU/L (Class 0); D pteronyssinus <0.10 kU/L (Class 0); Dog Epithelia <0.10 kU/L (Class 0); Elm, American White <0.10 kU/L (Class 0); Immunoglobulin E 10 IU/mL (6-495); Maple/Box Elder <0.10 kU/L (Class 0); Mulberry, White <0.10 kU/L (Class 0); Oak, White <0.10 kU/L (Class 0); Pecan <0.10 kU/L (Class 0); Penicillium Notatum <0.10 kU/L (Class 0); Pigweed, Rough <0.10 kU/L (Class 0); Ragweed, Short/Common <0.10 kU/L (Class 0); Russian Thistle <0.10 kU/L (Class 0); Sheep Sorrel <0.10 kU/L (Class 0); Sycamore, American <0.10 kU/L (Class 0); Timothy Grass <0.10 kU/L (Class 0)
[2020-02-06 09:48] LABS: Mouse Urine <0.10 kU/L (Class 0)
== END ==
PROVIDERS: PCP Family Medicine; Visit Provider Otolaryngology
DX: T78.40XA Allergy, unspecified, initial encounter (principal)
CPT/HCPCS: 36415; 82785; 86003

== ENCOUNTER → 2020-05-30 09:27 | Outpatient (CLI) | payer MEDICAID, SELFPAY ==
[2020-05-26 07:42] VITALS: BMI 46.9
[2020-05-30 12:16] LABS: Absolute Lymphocyte Count 2.36 X10^3/uL (0.83-4.51); Absolute Neutrophil Count 3.4 X10^3/uL (2.0-7.7); Basophil# 0.04 X10^3/uL; Basophil% 0.6 % (0-1); Eosinophil# 0.12 X10^3/uL; Eosinophils% 1.8 % (0-5); Hematocrit 38.7 % (37-47); Hemoglobin 11.8 g/dL (12.0-15.0); Lymphocyte # 2.36 X10^3/ul (4.0); Lymphocyte % 35.6 % (19-41); Mean Corp Hgb Conc 30.5 g/dL (32-36); Mean Corpuscular Hgb 27.6 pg (27.0-32.0); Mean Corpuscular Volume 90.4 fL (81-99); Mean Platelet Vol. 8.6 fl (6.2-12.0); Monocyte# 0.65 X10^3/uL; Monocyte% 9.8 % (0-10); NRBC Flagged by Analyzer 0 % (0-5); Neutrophil # 3.42 X10^3/uL (2.7-7.7); Neutrophil % 51.7 % (47-70); Platelet Count 379 K/mm3 (150-450); RBC Distribution Width CV 17.4 % (11.6-14.6); RBC Distribution Width SD 57.9 fl (35.1-43.9); Red Blood Count 4.28 M/mm3 (4.2-5.4); White Blood Count 6.6 K/mm3 (4.4-11.0)
[2020-05-30 12:49] LABS: ALB/GLOB Ratio 0.9 RATIO (0.9-2.4); AST(SGOT) 20 U/L (15-37); Alanine Aminotransfer ALT/SGPT 21 U/L (13-56); Albumin, Serum 3.6 g/dL (3.2-5.0); Alkaline Phosphatase 87 U/L (45-117); Anion Gap 5 (5-15); BUN 11 mg/dL (7-18); BUN/Creat Ratio 14.5 RATIO (10-20); Calcium,Total 9.1 mg/dL (8.5-10.1); Chloride 98 mmol/L (98-107); Cholesterol 171 mg/dL (200); Creatinine, Serum 0.76 mg/dL (0.55-1.02); EST Glomerular Filtration Rate 82 mL/min (>60); Est Glom Filt Rate - Afr Amer 99 mL/min (>60); Globulin 4.1 g/dL (2.2-4.2); Glucose 86 mg/dL (74-106); High Density Lipoprotein 61 mg/dL; Potassium 4.2 mmol/L (3.5-5.1); Protein, Total 7.7 g/dL (6.4-8.2); Sodium Level 131 mmol/L (136-145); Thyroid Stim Hormone (TSH) 2.29 uIU/mL (0.358-3.74); Triglycerides 119 mg/dL; Very Low Density Lipoprotein 24 mg/dL (5-40)
[2020-05-30 13:02] LABS: Hemoglobin A1c 5.6 % (3.8-5.6)
== END ==
PROVIDERS: PCP Family Medicine; Visit Provider Family Medicine
DX: I10 Essential (primary) hypertension (principal); E87.1 Hypo-osmolality and hyponatremia; E78.5 Hyperlipidemia, unspecified; R63.5 Abnormal weight gain; R73.01 Impaired fasting glucose
CPT/HCPCS: 36415; 80053; 80061; 82533; 83036; 84443; 85025

== ENCOUNTER → 2020-06-11 10:23 | Outpatient (CLI) | payer MEDICAID, SELFPAY ==
[2020-05-26 07:42] VITALS: BMI 46.9
--- NOTE | 2020-06-11 10:27 | ART_ITS ---
Reason For Study: PVD Procedure A bilateral lower extremity continuous wave Doppler with analog waveform analysis,segmental pressures,and ankle brachial indexes without exercise. Left Segmental Pressures Left brachial= 117mmHg. Left posterior tibial artery = 167mmHg. Left dorsalis pedis artery = 150mmHg. Left digit = 125 mmHg. The left dorsalis pedis waveforms are triphasic. The left posterior tibial artery waveforms are triphasic. Right Segmental Pressures Right brachial= 124mmHg. Right posterior tibial artery = 150mmHg. Right dorsalis pedis artery = 151mmHg. Right digit = 118 mmHg. The right dorsalis pedis waveforms are triphasic. The right posterior tibial artery waveforms are triphasic. Indices The right ankle brachial index by the posterior tibial artery is 1.21. The right ankle brachial index by the dorsalis pedis is 1.22. The right digital-brachial index is .95. The left ankle brachial index by the dorsalis pedis is 1.21. The left ankle brachial index by the posterior tibial artery is 1.35. The left digital-brachial index is 1.01. Interpretation Summary Triphasic Doppler waveforms are noted at ankle level bilaterally. Pulse-volume recording waveform amplitudes appear slightly diminished at digital level bilaterally, but satisfactory at low-thigh, calf, and ankle levels bilaterally. Resting ankle-brachial indices are normal bilaterally. Digital- brachial indices are normal bilaterally. There is no evidence of significant arterial occlusive disease in the lower extremities bilaterally. Ordering Physician: Shailesh Wright Performed By: SHAVON SALCIDO RVT
== END ==
PROVIDERS: PCP Family Medicine; Referring Provider Podiatrist; Visit Provider Podiatrist
DX: I73.9 Peripheral vascular disease, unspecified (principal); G62.9 Polyneuropathy, unspecified
CPT/HCPCS: 93923

== ENCOUNTER → 2020-06-27 08:33 | Outpatient (CLI) | payer MEDICAID, SELFPAY ==
[2020-05-26 07:42] VITALS: BMI 46.9
--- NOTE | 2020-06-27 10:32 | NEURO ---
NCS and/or EMG Patient Report Ordering Doctor: Shailesh Wright DATE OF SERVICE: 06/27/20 Indication: Gradually progressive loss of sensation in the bilateral lower extremities below the knee. Mild balance impairment. No overt muscle weakness in the lower extremities. Evaluate for peripheral polyneuropathy. Findings: Nerve conduction studies were performed in the right and left lower extremities. The right peroneal motor study recording the extensor digitorum brevis showed a normal amplitude, normal distal latency and normal conduction velocity. No conduction block or focal slowing was present across the fibular neck. The right tibial motor study recording the abductor hallucis brevis showed a normal amplitude, normal distal latency and normal conduction velocity. Right sural sensory response showed a slightly reduced amplitude and mildly slowed conduction velocity. Right superficial peroneal sensory response showed a slightly reduced amplitude and mildly slowed conduction velocity. The left peroneal motor study recording the extensor digitorum brevis showed a normal amplitude, normal distal latency and normal conduction velocity. No conduction block or focal slowing was present across the fibular neck. The left tibial motor study recording the abductor hallucis brevis showed a normal amplitude, normal distal latency and normal conduction velocity. Left sural sensory response showed a slightly reduced amplitude and mildly slowed conduction velocity. Left superficial peroneal sensory response showed a mildly reduced amplitude and mildly slowed conduction velocity. Needle EMG of the left lower extremity muscles was performed. No denervation was present in any segment muscle. In the left extensor hallucis longus, tibialis anterior, medial gastrocnemius, peroneus longus, vastus medialis muscles, motor unit morphology, activation and recruitment patterns were normal. Impression: There is electrophysiologic evidence suggestive, but not diagnostic, of a mild sensory peripheral polyneuropathy. This is based on reduced sensory nerve action potential amplitudes in the lower extremities with preservation of compound muscle action potentials. Furthermore, there is no active denervation or signs of reinnervation on needle examination to suggest motor axonal involvement. Clinical correlation is recommended for this mildly abnormal study. Wiley Walters D.O.
== END ==
PROVIDERS: PCP Family Medicine; Referring Provider Podiatrist; Visit Provider Podiatrist
DX: I73.9 Peripheral vascular disease, unspecified (principal); G62.9 Polyneuropathy, unspecified
CPT/HCPCS: 95886; 95910

== ENCOUNTER → 2020-07-09 13:21 | Outpatient (CLI) | payer MEDICAID, SELFPAY ==
[2020-05-26 07:42] VITALS: BMI 46.9
--- NOTE | 2020-07-09 13:23 | BI_ITS ---
MAMMOGRAPHY - BILATERAL SCREENING REASON FOR EXAM: Female, 65 years old. Routine annual screening examination. PERTINENT HISTORY: Non-contributory. TECHNIQUE: Digital bilateral breast eric (3D mammographic acquisition) in the CC and MLO projections. 2-D mediolateral oblique (MLO) and craniocaudad (CC) views of both breasts were obtained. CAD: Full Field Digital Mammography with Computer Added Detection was performed. COMPARISON: Comparison is made with prior study dated 07/04/2019 and 07/03/2018. FINDINGS: Breast Composition: The breasts are almost entirely fatty. There are no dominant masses or suspicious calcifications. Stable small benign appearing bilateral axillary lymph nodes. No other significant abnormalities are identified. There has been no significant change since the prior study. BI/SCREEN MAMM (CAD) W/ERIC BILAT IMPRESSION: Stable bilateral screening mammogram. Yearly follow-up mammogram recommended. (A) ASSESSMENT CATEGORY: BIRADS Category 2: Benign. A letter regarding these results will be sent to the patient by the facility within 30 days. Approximately 10% of breast cancers are not detected by mammography. A normal mammogram should not delay biopsy of a clinically suspicious abnormality. [id number] Electronically Signed: Tahir Boone, at 14:49 EST , Service support ,
== END ==
PROVIDERS: PCP Family Medicine; Referring Provider Obstetrics & Gynecology; Visit Provider Obstetrics & Gynecology
DX: Z12.31 Encounter for screening mammogram for malignant neoplasm of breast (principal)
CPT/HCPCS: 77063; 77067

== ENCOUNTER → 2020-07-31 11:02 | Outpatient (CLI) | payer MEDICAID, SELFPAY ==
[2020-05-26 07:42] VITALS: BMI 46.9
[2020-07-31 15:38] LABS: Anion Gap 8 (5-15); BUN 20 mg/dL (7-18); BUN/Creat Ratio 26.1 RATIO (10-20); Calcium,Total 9.6 mg/dL (8.5-10.1); Chloride 99 mmol/L (98-107); Creatinine, Serum 0.77 mg/dL (0.55-1.02); EST Glomerular Filtration Rate 81 mL/min (>60); Est Glom Filt Rate - Afr Amer 97 mL/min (>60); Glucose 75 mg/dL (74-106); Potassium 4.3 mmol/L (3.5-5.1); Sodium Level 134 mmol/L (136-145)
== END ==
PROVIDERS: PCP Family Medicine; Referring Provider Urology; Visit Provider Urology
DX: N39.44 Nocturnal enuresis (principal)
CPT/HCPCS: 36415; 80048

== ENCOUNTER → 2020-08-07 08:14 | Outpatient (CLI) | payer MEDICAID, SELFPAY ==
[2020-05-26 07:42] VITALS: BMI 46.9
[2020-08-07 10:34] LABS: Anion Gap 5 (5-15); BUN 12 mg/dL (7-18); BUN/Creat Ratio 21.2 RATIO (10-20); Calcium,Total 8.8 mg/dL (8.5-10.1); Chloride 89 mmol/L (98-107); Creatinine, Serum 0.57 mg/dL (0.55-1.02); EST Glomerular Filtration Rate 114 mL/min (>60); Est Glom Filt Rate - Afr Amer 138 mL/min (>60); Glucose 104 mg/dL (74-106); Potassium 4.3 mmol/L (3.5-5.1); Sodium Level 122 mmol/L (136-145)
== END ==
PROVIDERS: PCP Family Medicine; Referring Provider Urology; Visit Provider Urology
DX: N39.44 Nocturnal enuresis (principal)
CPT/HCPCS: 36415; 80048

== ENCOUNTER → 2020-08-11 09:11 | Outpatient (CLI) | payer MEDICAID, SELFPAY ==
[2020-05-26 07:42] VITALS: BMI 46.9
[2020-08-11 16:01] LABS: Anion Gap 6 (5-15); BUN 15 mg/dL (7-18); BUN/Creat Ratio 20.6 RATIO (10-20); Calcium,Total 9.4 mg/dL (8.5-10.1); Chloride 101 mmol/L (98-107); Creatinine, Serum 0.73 mg/dL (0.55-1.02); EST Glomerular Filtration Rate 86 mL/min (>60); Est Glom Filt Rate - Afr Amer 103 mL/min (>60); Glucose 60 mg/dL (74-106); Sodium Level 135 mmol/L (136-145)
== END ==
PROVIDERS: PCP Family Medicine; Referring Provider Urology; Visit Provider Urology
DX: N39.44 Nocturnal enuresis (principal)
CPT/HCPCS: 36415; 80048

== ENCOUNTER → 2020-10-09 11:14 | Outpatient (CLI) | payer MEDICAID, SELFPAY ==
[2020-10-09 09:53] VITALS: BMI 44.1
[2020-10-09 12:20] LABS: Vitamin B12 558 pg/mL (211-911)
[2020-10-09 12:24] LABS: Hemoglobin A1c 5.7 % (3.8-5.6)
[2020-10-15 20:07] LABS: Free Kappa Light Chains 24.1 mg/L (3.3-19.4); Free Lambda Light Chains 15.6 mg/L (5.7-26.3)
[2020-10-15 21:56] LABS: Vitamin B1, Thiamine 84.9 nmol/L (66.5-200.0)
== END ==
PROVIDERS: PCP Family Medicine; Referring Provider Nurse Practitioner Family; Visit Provider Nurse Practitioner Family
DX: G62.9 Polyneuropathy, unspecified (principal); R73.09 Other abnormal glucose
CPT/HCPCS: 36415; 82607; 82746; 83036; 83883; 84425

== ENCOUNTER → 2020-10-30 15:08 | Outpatient (CLI) | payer MEDICAID, SELFPAY ==
[2020-10-09 09:53] VITALS: BMI 44.1
[2020-11-04 20:07] LABS: Albumin 3.4 g/dL (2.9-4.4); Alpha-1-Globulins 0.2 g/dL (0.0-0.4); Gamma Globulin 1.3 g/dL (0.4-1.8); Immunoglobulin G 1206 mg/dL (586-1602); Immunoglobulin M 105 mg/dL (26-217); PROEL- TOTAL PROTEIN 7.1 g/dL (6.0-8.5)
[2020-11-05 13:23] LABS: Immunoglobulin A 51 mg/dL (87-352)
== END ==
PROVIDERS: PCP Family Medicine; Visit Provider Nurse Practitioner Family
DX: G60.8 Other hereditary and idiopathic neuropathies (principal)
CPT/HCPCS: 36415; 82784; 84165; 86334; 86335

== ENCOUNTER → 2021-01-15 11:20 | Outpatient (CLI) | payer MEDICAID, SELFPAY | PROVIDERS: PCP Family Medicine; Referring Provider Family Medicine; Visit Provider Family Medicine | DX: Z20.828 Contact with and (suspected) exposure to other viral communicable diseases (principal) | CPT/HCPCS: 36415; 86769 ==

== ENCOUNTER 2021-03-24 10:18 | Emergency (ER) | payer MEDICAID, SELFPAY ==
[2021-01-29 07:50] VITALS: BMI 42.0
[2021-03-24 10:19] VITALS: BP 140/73; PULSE 88; RESP 16; TEMP 36.4; O2SAT 97; BMI 41.4
--- NOTE | 2021-03-24 10:33 | RAD_ITS ---
STUDY: X-RAY - RIGHT KNEE REASON FOR EXAM: Right knee pain, right knee injury from a fall. TECHNIQUE: 4 view(s) of the knee. COMPARISON: Radiographs 01/13/2017. FINDINGS: There is a right total knee arthroplasty without evidence of complication. There is a small enthesophyte at the superior pole of the patella and a small soft tissue calcification anterior to the patella. RAD/Knee 4 or More Views IMPRESSION: Uncomplicated right total knee arthroplasty. Electronically Signed: Markell El MD at 11:19 EDT Tel , Service support ,
--- NOTE | 2021-03-24 10:40 | RAD_ITS ---
STUDY: X-RAY - LEFT KNEE REASON FOR EXAM: Left knee pain, left knee injury from a fall. TECHNIQUE: 4 view(s) of the knee. COMPARISON: None. FINDINGS: Normal visualized distal femur. Normal visualized proximal tibia and fibula. Normal proximal tibiofibular articulation. Normal medial femorotibial compartment. There is mild joint space narrowing of the lateral femorotibial compartment. Normal patellofemoral articulation. There is mild chondrocalcinosis in the menisci. 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 No demonstrated fracture. Electronically Signed: Markell El MD at 11:14 EDT Tel , Service support ,
[2021-03-24] MEDS: Acetaminophen 325 MG Tablet 650 MG PO (10:52)
--- NOTE | 2021-03-24 11:33 | ED.VIS.LOWEX ---
HPI History of Present Illness Chief Complaint: Lower Extremity Injury Narrative Narrative: 66-year-old female presenting with mechanical fall. She states she fell on her bilateral knees. She states he did not have her foot planted correctly before she fell. She denies head injury or LOC. She complains of abrasions on the bilateral knees. She is ambulatory on scene and in the ED. She denies paresthesias. She denies pain elsewhere. [facility] Medical History Acute hepatitis C Anxiety Asthma Back sprain Bipolar disorder Chest pain Depression Encounter for screening for malignant neoplasm of colon Epigastric abdominal pain Eustachian tube dysfunction GERD (gastroesophageal reflux disease) Hepatitis Herpes simplex with unspecified complication Hyperlipidemia Hypertension Lightheadedness Long-term use of high-risk medication Loss of appetite Mild dilation of ascending aorta Mild mitral regurgitation Nephrolithiasis Nightmares Obesity OCD (obsessive compulsive disorder) TROY (obstructive sleep apnea) Otitis media Paroxysmal atrial tachycardia Rheumatoid arthritis Rhinorrhea Right flank pain Segmental and somatic dysfunction of cervical region Segmental and somatic dysfunction of thoracic region Sinusitis Spinal stenosis of lumbar region Thoracic aortic aneurysm without rupture Home Medications epinephrine 0.3 mg IM X1 06/17/16 [History Last Taken Unknown] albuterol sulfate 2 puff INHALATION TID 07/18/18 [History Last Taken 08/08/18 05:00] hydroxychloroquine 200 mg PO BIDCM 07/18/18 [History Last Taken Unknown] ipratropium bromide 21 mcg (0.03 %) nasal spray 2 spray INTRANASAL BID-TID PRN #30 ml 02/18/20 [Rx Last Taken Unknown] albuterol sulfate 2.5 mg INHALATION TID #180 ml 05/26/20 [Rx Last Taken Unknown] cholecalciferol (vitamin D3) 1,250 mcg (50,000 unit) capsule 1,250 mcg PO QWEEK 10/08/20 [History Last Taken Unknown] famotidine 20 mg tablet 20 mg PO QHS 10/08/20 [History Last Taken Unknown] hydrochlorothiazide 12.5 mg capsule 12.5 mg PO BID 10/08/20 [History Last Taken Unknown] lisinopril 40 mg tablet 20 mg PO BID tab 10/08/20 [History Last Taken Unknown] olanzapine 10 mg tablet 10 mg PO QHS 10/08/20 [History Last Taken Unknown] polyethylene glycol 3350 17 gram/dose oral powder 17 g PO TID PRN g 10/08/20 [History Last Taken Unknown] potassium chloride 20 mEq tablet,extended release 20 meq PO BID 10/08/20 [History Last Taken Unknown] valacyclovir 1 gram tablet 2,000 mg PO BID PRN tab 10/08/20 [History Last Taken Unknown] fluticasone propionate 220 mcg/actuation HFA aerosol inhaler 1 puff INHALATION BID PRN g 10/09/20 [History Last Taken Unknown] nabumetone 500 mg tablet 500 mg PO BID 11/20/20 [History Last Taken Unknown] amitriptyline 10 mg tablet 10 mg PO DAILY tab 03/23/21 [History Last Taken Unknown] gabapentin 300 mg capsule See Rx Instructions .ROUTE .COMPLEX #90 cap 03/23/21 [Rx Last Taken Unknown] venlafaxine 150 mg capsule,extended release 24 hr 150 mg PO DAILY #30 cap 03/23/21 [Rx Last Taken Unknown] acetaminophen 500 mg PO Q6H PRN #30 tab 03/24/21 [Rx Last Taken Unknown] Allergy/AdvReac Type Severity Reaction Status Date / Time tramadol [From Ultram] Allergy Intermediate Itching Verified 03/24/21 10:20 bee pollen Allergy Anaphylaxis Verified 03/24/21 10:20 divalproex sodium AdvReac Intermediate Other - Verified 03/24/21 10:20 [From Depakote] nightmares quetiapine [From Seroquel] AdvReac Mild Other - Verified 03/24/21 10:20 shaking, lightheaded and abnormal dreams meloxicam AdvReac Unknown Verified 03/24/21 10:20 oxycodone [Oxycodone] AdvReac Rash Verified 03/24/21 10:20 bee sting Allergy Severe Anaphylaxis Uncoded 03/24/21 10:20 Family History Father Cancer Alcoholism Hypertension Mother Heart disease H/O weight disorder Myocardial infarction Hypertension COPD (chronic obstructive pulmonary disease) Skin cancer Sister Hypertension Surgical History bladder sling removal H/O eye surgery H/O hand surgery H/O: hysterectomy History of appendectomy History of bilateral carpal tunnel release History of total right knee replacement Hx laparoscopic cholecystectomy Social History Smoking Status: Former smoker quit date: 08/29/82 pack-years: 15 second hand exposure: No alcohol intake: never substance use type: does not use ROS ROS ED Constitutional Constitutional ED: Denies chills, fever(s) or sweats Eyes Eyes: Denies blurry vision or change in vision ENT ENT ED: Denies ear pain, rhinorrhea or sore throat Cardiovascular Cardiovascular: Denies chest pain, palpitations or racing heartbeat Respiratory/Chest Respiratory/Chest: Denies cough, dyspnea or sputum Gastrointestinal Gastrointestinal: Denies abdominal pain, constipation, diarrhea or vomiting Genitourinary Genitourinary ED: Denies dysuria, hematuria or urinary frequency Musculoskeletal Musculoskeletal: Reports other Details: Bilateral knee pain ; Denies back pain or neck pain Integumentary Reports other Details: Bilateral knee abrasions over the patella ; Denies abscess or rash Neurologic Neurologic: Denies headache(s), paresthesias or weakness Psychiatric Psychiatric: Denies anxiety, depression, suicidal ideation or suicidal thoughts Endocrine Endocrinology: Denies polydipsia or polyuria EXAM Physical Exam Const Vital Signs: 03/24/21 10:19 Temperature 97.5 F L Temperature Source Temporal Pulse Rate 88 Respiratory Rate 16 Blood Pressure 140/73 H Blood Pressure Mean 95 Pulse Ox 97 Oxygen Delivery Method Room Air Positive well nourished General Appearance ED: NAD; Negative for pallor HEENT Reports normocephalic, head/scalp atraumatic and moist mucous membranes Eyes PERRL and EOMs intact bilaterally Neck no lymphadenopathy and supple Chest Wall inspection of chest normal and palpation of chest normal GI normal to inspection, nondistended, normoactive bowel sounds Narrative: Deferred Extremity Extremity Narrative: Bilateral knee abrasions. Patient has full range of motion of the bilateral knees. Extensor mechanisms are intact bilaterally. There is not appear to be any effusions. No ligament laxity noted bilaterally General Extremety ED: Yes tenderness Neuro oriented x3 and CN's II-XII intact bilaterally Sensorium / Orientation: alert Motor Exam: strength 5/5 throughout Psych mental status grossly normal Attitude: No agitated Skin no rashes or lesions noted Skin Narrative: Abrasions as described above General Skin Exam: Negative for jaundice or pallor MDM MDM MDM Narrative Medical decision making narrative: Patient seen and evaluated for bilateral knee pain. She is ambulatory. She states she has abrasions on the bilateral knees and these are visualized. There is no laceration that needs suture repair. Patient's last tetanus was less than 2 years ago. I did obtain images of the bilateral knees and on my interpretation there is no acute fracture or subluxation. The radiologist does agree and also states there is mild arthrosis of the lateral femoral-tibial compartment. Patient given Tylenol for pain at her request. In the system it does state that she has acute hepatitis but she states that she does not have acute hepatitis and had determined that she had Sjogren's syndrome. She states that she is allowed to take Tylenol. Patient's wounds were cleaned and dressings were applied. She is discharged home in stable condition. Impression: 1. Mechanical fall 2. Bilateral knee abrasions 3. Bilateral knee contusion Radiography Diagnostic Testing: Radiology Impression Knee X-Ray 03/24/21 10:33 IMPRESSION: Uncomplicated right total knee arthroplasty. Electronically Signed: Markell El MD at 11:19 EDT Tel , Service support , Knee X-Ray 03/24/21 10:40 IMPRESSION: Mild arthrosis of the lateral femorotibial compartment. No demonstrated fracture. Electronically Signed: Markell El MD at 11:14 EDT Tel , Service support , Discharge Plan Triage Chief Complaint: Lower Extremity Injury ED Provider: Abilio Rouse Dx/Rx/DC Orders Instructions: ED Abrasion, ED Contusion, Lower Extremity Prescriptions: New acetaminophen 500 mg tablet 500 mg PO Q6H PRN (Reason: pain) Qty: 30 RF: 0 No Action ipratropium bromide 0.03 % spray,non-aerosol 2 spray INTRANASAL BID-TID PRN (Reason: allergy symptoms) Qty: 30 RF: 6 albuterol sulfate 2.5 mg /3 mL (0.083 %) solution for nebulization 2.5 mg inhalation TID Qty: 180 RF: 6 cholecalciferol (vitamin D3) 1,250 mcg (50,000 unit) capsule 1,250 mcg PO QWEEK RF: 0 hydrochlorothiazide 12.5 mg capsule 12.5 mg PO BID RF: 0 lisinopril 40 mg tablet 20 mg PO BID RF: 0 famotidine 20 mg tablet 20 mg PO QHS RF: 0 olanzapine 10 mg tablet 10 mg PO QHS RF: 0 potassium chloride 20 mEq tablet extended release 20 meq PO BID RF: 0 polyethylene glycol 3350 [Laxative PEG 3350] 17 gram/dose powder 17 g PO TID PRN (Reason: Constipation) RF: 0 valacyclovir 1 gram tablet 2,000 mg PO BID PRN (Reason: cold sores) RF: 0 Flovent HFA 220 mcg/actuation HFA aerosol inhaler 1 puff INHALATION BID PRN (Reason: asthma) RF: 0 nabumetone 500 mg tablet 500 mg PO BID RF: 0 amitriptyline 10 mg tablet 10 mg PO DAILY RF: 0 venlafaxine 150 mg capsule,extended release 24hr 150 mg PO DAILY Qty: 30 RF: 2 gabapentin 300 mg capsule See Rx Instructions .ROUTE .COMPLEX Qty: 90 RF: 2 epinephrine 0.3 MG syringe 0.3 mg IM X1 RF: 0 albuterol sulfate 1 PUFF inhaler 2 puff inhalation TID RF: 0 hydroxychloroquine 200 MG tablet 200 mg PO BIDCM RF: 0 Primary Care Provider: Bay Ramos Referrals: Bay Ramos DO [Primary Care Provider] - Disposition Disposition: Home, Self Care
== END 2021-03-24 11:55 | disposition home or self-care (01) ==
PROVIDERS: Emergency Provider Student in an Organized Health Care Education/Training Program; PCP Family Medicine
DX: S80.211A Abrasion, right knee, initial encounter (principal); S80.212A Abrasion, left knee, initial encounter; S80.02XA Contusion of left knee, initial encounter; S80.01XA Contusion of right knee, initial encounter; J45.909 Unspecified asthma, uncomplicated; I10 Essential (primary) hypertension; F42.9 Obsessive-compulsive disorder, unspecified; Z87.891 Personal history of nicotine dependence; Z79.899 Other long term (current) drug therapy; W19.XXXA Unspecified fall, initial encounter
CPT/HCPCS: 73564; 99283

== ENCOUNTER → 2021-04-02 09:14 | Outpatient (CLI) | payer MEDICAID, SELFPAY ==
[2021-03-24 10:19] VITALS: BMI 41.4
[2021-04-02 12:33] LABS: Hepatitis C Antibody Non-Reactive (Nonreactive)
[2021-04-03 20:07] LABS: HCV Quant. RNA PCR HCV Not Detected IU/mL (.)
== END ==
PROVIDERS: PCP Family Medicine; Referring Provider Family Medicine; Visit Provider Family Medicine
DX: R76.8 Other specified abnormal immunological findings in serum (principal)
CPT/HCPCS: 36415; 86803; 87522

== ENCOUNTER → 2021-04-22 11:01 | Outpatient (CLI) | payer MEDICAID, SELFPAY ==
[2021-04-24 12:08] LABS: Free Kappa Light Chains 35.8 mg/L (3.3-19.4)
== END ==
PROVIDERS: PCP Family Medicine; Visit Provider Nurse Practitioner Family
DX: G60.8 Other hereditary and idiopathic neuropathies (principal)
CPT/HCPCS: 36415; 83883; 86335

== ENCOUNTER → 2021-07-10 09:32 | Outpatient (CLI) | payer MEDICAID, SELFPAY ==
--- NOTE | 2021-07-10 09:34 | BI_ITS ---
MAMMOGRAPHY - BILATERAL SCREENING REASON FOR EXAM: Female, 66 years old. Routine annual screening examination. PERTINENT HISTORY: Non-contributory. TECHNIQUE: Digital bilateral breast eric (3D mammographic acquisition) in the CC and MLO projections. 2-D mediolateral oblique (MLO) and craniocaudad (CC) views of both breasts were obtained. CAD: Full Field Digital Mammography with Computer Added Detection was performed. COMPARISON: Comparison is made with prior study dated 07/09/2020 and 07/04/2019. FINDINGS: Breast Composition: The breasts are almost entirely fatty. There are no dominant masses or suspicious calcifications. Stable small benign appearing bilateral axillary nodes. No other significant abnormalities are identified. There has been no significant change since the prior study. BI/SCRN MAMM (CAD)W/ERIC BILAT IMPRESSION: Stable bilateral screening mammogram. Yearly follow-up mammogram recommended. (A) ASSESSMENT CATEGORY: BIRADS Category 2: Benign. A letter regarding these results will be sent to the patient by the facility within 30 days. Approximately 10% of breast cancers are not detected by mammography. A normal mammogram should not delay biopsy of a clinically suspicious abnormality. [id number] Electronically Signed: Tahir Boone MD at 11:43 EST , Service support ,
== END ==
PROVIDERS: PCP Family Medicine; Referring Provider Obstetrics & Gynecology; Visit Provider Obstetrics & Gynecology
DX: Z12.31 Encounter for screening mammogram for malignant neoplasm of breast (principal)
CPT/HCPCS: 77063; 77067

== ENCOUNTER → 2021-07-31 10:50 | Outpatient (CLI) | payer MEDICAID, SELFPAY ==
[2021-07-31 11:48] LABS: Anion Gap 7 (5-15); BUN 16 mg/dL (7-18); BUN/Creat Ratio 21.2 RATIO (10-20); Calcium,Total 9.1 mg/dL (8.5-10.1); Chloride 100 mmol/L (98-107); Creatinine, Serum 0.76 mg/dL (0.55-1.02); EST Glomerular Filtration Rate 82 mL/min (>60); Est Glom Filt Rate - Afr Amer 99 mL/min (>60); Glucose 89 mg/dL (74-106); Potassium 4.7 mmol/L (3.5-5.1); Sodium Level 134 mmol/L (136-145)
== END ==
PROVIDERS: PCP Family Medicine; Visit Provider Family Medicine
DX: E87.1 Hypo-osmolality and hyponatremia (principal)
CPT/HCPCS: 36415; 80048

== ENCOUNTER 2021-08-10 05:38 | Day surgery (SDC) | payer MEDICAID, SELFPAY ==
[2021-08-10] VITALS (9 sets, daily range): BP systolic 119–151; BP diastolic 68–85; PULSE 81–88; RESP 16–18; TEMP 36.1–36.8; O2SAT 92–100; BMI 44.0
[2021-08-10] MEDS: Vancomycin IV 1,000 MG/200 ML BAG 200 MG IV (06:54)
[2021-08-10] MEDS: Lactated Ringers 1,000 ML 15 ML IV (06:56)
[2021-08-10 07:10] LABS: Hematocrit 35.6 % (37-47); Mean Corp Hgb Conc 30.9 g/dL (32-36); Mean Corpuscular Hgb 28.9 pg (27.0-32.0); Mean Corpuscular Volume 93.4 fL (81-99); Mean Platelet Vol. 8.5 fl (6.2-12.0); Platelet Count 324 K/mm3 (150-450); RBC Distribution Width CV 15.3 % (11.6-14.6); RBC Distribution Width SD 52.7 fl (35.1-43.9); Red Blood Count 3.81 M/mm3 (4.2-5.4); White Blood Count 5.1 K/mm3 (4.4-11.0)
--- NOTE | 2021-08-10 07:46 | PCM.HP.STD ---
HPI - General HPI Narrative JOCE JOY, is a 66 F who presents for replacement Interstim. Battery is . She would like the pocket on the other side as she is left handed. [facility], [facility] Medical History Acute hepatitis C Anxiety Asthma Back sprain BiPAP (biphasic positive airway pressure) dependence Bipolar disorder Chest pain Depression Difficulty chewing Encounter for screening for malignant neoplasm of colon Epigastric abdominal pain Eustachian tube dysfunction Former smoker GERD (gastroesophageal reflux disease) Hepatitis Herpes simplex with unspecified complication History of echocardiogram History of edema History of IBS History of irregular heartbeat History of stress test Hyperlipidemia Hypertension Injury of head and neck Leg cramps Lightheadedness Long-term use of high-risk medication Loss of appetite Mild dilation of ascending aorta Mild mitral regurgitation Nephrolithiasis Neuropathy Nightmares Obesity OCD (obsessive compulsive disorder) TROY (obstructive sleep apnea) Otitis media Paroxysmal atrial tachycardia Rheumatoid arthritis Rhinorrhea Right flank pain Segmental and somatic dysfunction of cervical region Segmental and somatic dysfunction of thoracic region Sinusitis Sjogrens syndrome Spinal stenosis of lumbar region Thoracic aortic aneurysm without rupture Home Medications ipratropium bromide 21 mcg (0.03 %) nasal spray 2 spray INTRANASAL BID-TID PRN #30 ml 02/18/20 [Rx Last Taken 08/10/21 04:40] cholecalciferol (vitamin D3) 1,250 mcg (50,000 unit) capsule 1,250 mcg PO TU 10/08/20 [History Last Taken Unknown] lisinopril 40 mg tablet 20 mg PO BID tab 10/08/20 [History Last Taken 08/10/21 04:40] olanzapine 10 mg tablet 10 mg PO QHS 10/08/20 [History Last Taken Unknown] potassium chloride 20 mEq tablet,extended release 20 meq PO BID 10/08/20 [History Last Taken Unknown] fluticasone propionate 220 mcg/actuation HFA aerosol inhaler 1 puff INHALATION TID g 10/09/20 [History Last Taken Unknown] acetaminophen 500 mg PO Q6H PRN #30 tab 03/24/21 [Rx Last Taken Unknown] venlafaxine 150 mg capsule,extended release 24 hr 150 mg PO DAILY #30 cap 06/04/21 [Rx Last Taken Unknown] albuterol sulfate 90 mcg/actuation aerosol inhaler 2 puff INHALATION TID #8.5 g 07/31/21 [Rx Last Taken 08/10/21 04:40] oxybutynin chloride 10 mg tablet,extended release 24 hr 10 mg PO DAILY 07/31/21 [History Last Taken Unknown] amitriptyline 10 mg tablet 10 mg PO QHS #30 tab 08/03/21 [Rx Last Taken Unknown] carbamazepine 100 mg chewable tablet See Rx Instructions .ROUTE .COMPLEX #60 tab 08/03/21 [Rx Last Taken 08/10/21 04:40] albuterol sulfate 2.5 mg INHALATION TID PRN PRN 08/05/21 [History Last Taken Unknown] polyethylene glycol 3350 [Miralax] 17 g PO DAILY 08/05/21 [History Last Taken Unknown] Allergy/AdvReac Type Severity Reaction Status Date / Time tramadol [From Ultram] Allergy Intermediate Itching Verified 08/10/21 06:19 divalproex sodium AdvReac Intermediate Other - Verified 08/10/21 06:19 [From Depakote] nightmares quetiapine [From Seroquel] AdvReac Mild Other - Verified 08/10/21 06:19 shaking, lightheaded and abnormal dreams meloxicam AdvReac Unknown Verified 08/10/21 06:19 Family History Father Cancer Alcoholism Hypertension Mother Heart disease H/O weight disorder Myocardial infarction Hypertension COPD (chronic obstructive pulmonary disease) Skin cancer Sister Hypertension Surgical History bladder sling removal H/O eye surgery H/O hand surgery H/O: hysterectomy History of appendectomy History of bilateral carpal tunnel release History of total right knee replacement Hx laparoscopic cholecystectomy Social History Smoking Status: Former smoker quit date: 08/29/82 pack-years: 15 second hand exposure: No alcohol intake: never substance use type: does not use ROS Constitutional Constitutional: Denies anorexia, fatigue, fever(s), poor appetite or weight loss Eyes Eyes: Denies change in vision ENT HEENT: Denies abnormal hearing, dysphagia, headache(s), loss taste/smell or sore throat Cardiovascular Cardiovascular: Denies chest pain, cyanosis, diaphoresis, dyspnea, nausea, radiating jaw, neck or arm pain or vomiting Respiratory/Chest Respiratory/Chest: Denies change in mental status, chest congestion, cough, dry cough, dyspnea, hoarseness or inability to speak Gastrointestinal Gastrointestinal: Denies abdominal pain, anorexia, change in bowel habits, nausea, taste impaired or vomiting Genitourinary Genitourinary: Reports urinary frequency, urinary incontinence and urinary urgency Musculoskeletal Musculoskeletal: Denies abnormal gait, muscle cramps, myalgias or numbness Integumentary Integumentary: Denies pruritus, rash, skin ulcer or unusual bruising Neurologic Neurologic: Reports systems reviewed and no addt'l complaints, except as documented Psychiatric Psychiatric: Reports systems reviewed and no addt'l complaints, except as documented Endocrine Endocrinology: Reports systems reviewed and no addt'l complaints, except as documented Hematologic/Lymphatic Hematologic/Lymphatic: Reports systems reviewed and no addt'l complaints, except as documented Allergic/Immunologic Allergic/Immunologic: Reports systems reviewed and no addt'l complaints, except as documented Vital Signs Vital Signs Vital Signs: 08/10/21 06:57 Temperature 98.3 F Temperature Source Temporal Pulse Rate 85 Respiratory Rate 17 Respiratory Pattern Normal Blood Pressure 151/80 H Blood Pressure Mean 103 Blood Pressure Source Monitor Blood Pressure Position Semi-Fowlers Blood Pressure Location Left Arm Pulse Ox 97 Oxygen Delivery Method Room Air Weight Weight: 112.8 kg Body Mass Index (BMI) 44.0 Physical Exam Const alert, oriented x3 and no apparent distress HEENT normocephalic, head/scalp atraumatic, hearing grossly normal bilaterally, external ears normal and external nose normal Mouth: lips normal and tongue normal Eyes General Eye: normal appearance of both eyes Neck supple General: trachea midline Lymph Lymphatic: no lymphedema noted Chest inspection of chest normal Chest: symmetrical chest wall rise Resp normal respiratory effort, normal air movement, no retractions and no use of accessory muscles Cardio regular rate and regular rhythm GI soft to palpation, non-tender and non-distended no CVA tenderness and external exam normal Back/Spine no CVA tenderness Thoracic Spine / Upper Back: normal to inspection Extremity normal to inspection Skin no rashes or lesions noted, no wounds, skin turgor normal, no jaundice, no petechiae and no mottling Neuro oriented x3, CN's II-XII intact bilaterally and moves all extremities Psych mental status grossly normal, thought process normal, cooperative and affect normal Results Lab / Micro Data Result Diagrams: 08/10/21 06:30 Labs: Laboratory Results - last 24 hr 08/10/21 06:30: WBC 5.1, RBC 3.81 L, Hgb 11.0 L, Hct 35.6 L, MCV 93.4, MCH 28.9, MCHC 30.9 L, RDW Std Deviation 52.7 H, RDW Coeff of Jeramy 15.3 H, Plt Count 324, MPV 8.5 Assessment & Plan Assessment/Plan (1) Urinary frequency: (2) Urinary urgency: (3) Urinary incontinence, urge: PLAN: Interstim removal and replacement with pocket on left side Procedure Criteria Type of Procedure Procedure Type: Elective Elective Risks - COVID COVID Risk Discussion: The surgeon/proceduralist and patient have discussed in detail the risk of exposure to and/or potential harm posed by the COVID-19 virus with having a surgery/procedure at this time versus the risk of delaying the surgery/procedure. It is not possible to know either the risk of delaying the surgery or procedure or chance of getting an infection with perfect accuracy, but a joint decision was made between the patient and the surgeon/proceduralist to proceed at this time with the scheduled surgery/procedure as indicated on the consent form.
[2021-08-10] MEDS: Lidocaine 1% /Epi 1:100 (20ml) 20 ML Vial (08:51)
--- NOTE | 2021-08-10 09:30 | PCM.DC ---
Discharge Instructions Diet Discharge Diet: No restrictions Activity Discharge Activity: May Shower Dressing / Incision Call your doctor if your incision/area has: Continuous Slow Oozing, Sudden Increased Bleeding, Increased Pain/ Swelling, Increased Redness, Foul Smelling Discharge and Swelling at the incision site Call your doctor if you observe: Fever of 101 or Higher, Inability to urinate, Inability to have a bowel movement and Uncontrolled pain Suture Line Care: Avoid Pulling/Pushing and Avoid Pinching/Bending Follow Up Care Please Follow Up With: Darya Abreu MD When: 3-4 weeks, call office for appt. Test Results: Test results from this visit will be discussed in further detail at your follow-up appointment, if applicable. Discharge Plan Admission Attending Provider: Darya Abreu Primary Care Provider: Bay Ramos Discharge Orders/Prescriptions Prescriptions: New oxycodone-acetaminophen [oxycodone-acetaminophen] 1 TABLET tablet 2 tab PO Q8H PRN PRN (Reason: Pain) 7 Days Qty: 20 RF: 0 cephalexin [cephalexin] 500 MG capsule 500 mg PO Q12 3 Days Qty: 6 RF: 0 Continued ipratropium bromide 0.03 % spray,non-aerosol 2 spray INTRANASAL BID-TID PRN (Reason: allergy symptoms) Qty: 30 RF: 6 cholecalciferol (vitamin D3) 1,250 mcg (50,000 unit) capsule 1,250 mcg PO TU RF: 0 lisinopril 40 mg tablet 20 mg PO BID RF: 0 olanzapine 10 mg tablet 10 mg PO QHS RF: 0 potassium chloride 20 mEq tablet extended release 20 meq PO BID RF: 0 Flovent HFA 220 mcg/actuation HFA aerosol inhaler 1 puff INHALATION TID RF: 0 oxybutynin chloride 10 mg tablet extended release 24hr 10 mg PO DAILY RF: 0 albuterol sulfate 90 mcg/actuation HFA aerosol inhaler 2 puff inhalation TID Qty: 8.5 RF: 3 carbamazepine 100 mg tablet,chewable See Rx Instructions .ROUTE .COMPLEX Qty: 60 RF: 2 amitriptyline 10 mg tablet 10 mg PO QHS Qty: 30 RF: 2 acetaminophen 500 mg tablet 500 mg PO Q6H PRN (Reason: pain) Qty: 30 RF: 0 polyethylene glycol 3350 [Miralax] 17 gram Powder In Packet 17 g PO DAILY RF: 0 albuterol sulfate 2.5 mg /3 mL (0.083 %) solution for nebulization 2.5 mg inhalation TID PRN PRN (Reason: Wheezing) RF: 0 venlafaxine 150 mg capsule,extended release 24hr 150 mg PO DAILY Qty: 30 RF: 2 Referrals / Follow Up: Bay Ramos DO [Primary Care Provider] - Disposition Disposition (needs filled in before D/C Order can be placed): Home, Self Care
--- NOTE | 2021-08-10 09:38 | PCM.OPRPT ---
Problems Associated Problem List Diagnoses (1) Urinary frequency: (2) Urinary urgency: (3) Urinary incontinence, urge: Report of Operation Date of Procedure: 08/10/21 Pre-Operative Diagnosis: Urinary urgency, urinary frequency, urge incontinence. Post-Operative Diagnosis: same Surgery/Procedure Performed:: Interstim removal and replacement lead and IPG Surgeon: Darya Abreu Type of Anesthesia: MAC Estimated Blood Loss (mL): 10cc Description of Procedure: The patient is a 66-year-old female with an indwelling InterStim containing a battery. It worked very well for her and she would like to have it replaced with the pocket moved onto the left side as she is left-handed and has difficulty controlling the unit from the right side. Informed consent was obtained. The patient was taken to the operating room and placed in a prone position on the operating room table. She was appropriately padded and secured to the table. Anesthesia monitored the head, neck, airway, IV access and vital signs throughout the case. Once anesthesia was appropriately ministered, fluoroscopy was used to identify the indwelling lead which is on the patient's left side. The existing pocket site and lead insertion sites were infiltrated with lidocaine with epinephrine. An incision was made over the IPG. The unit was identified and brought into the operative field. Using the torque wrench the lead was removed from the battery which was removed from the field. Using a tugging motion on the lead, the lead insertion site was identified and opened with a knife. The lead was easily identified and grasped with a hemostat. The lead in its entirety was carefully removed from the S3 foramen. At this time the insertion site on the right side was infiltrated with lidocaine. Using fluoroscopy, the needle was used to obtain access to the S3 foramen on the patient's right side. Access was somewhat difficult secondary to the patient's anatomy curvature of the sacrum. Good minerva response and toe flexion was obtained. The obturator was removed from the needle and the guidewire was inserted. An incision was made around the guidewire and the dilator was then passed over the guidewire. The obturator was then removed and the lead was inserted with a curvature extending laterally. All 4 leads were tested with best responses on 0, 1 and 2, and lesser response on lead 3. The pocket site on the patient's left side was selected and infiltrated with lidocaine with epinephrine. An incision was made and the pocket was developed using Bovie cautery and blunt dissection. The lead was then tunneled into the pocket site, cleaned and dried and inserted into the IPG and secured using the torque wrench. The IPG was then placed into the new pocket site and testing revealed no impedances. All of the incisions were closed using 3-0 interrupted Vicryl followed by six 4-0 subcuticular suturing and then skin glue. She was then awakened and taken to the recovery room in good condition. There were no complications during this procedure. Grafts/Implants Used: Interstim Lead and IPG Complications none Admit VTE Documentation VTE Present on Admission: No VTE Mechan Device Prophylaxis: None VTE Pharm Prophylaxis ordered?: No Reason prophylaxis not ordered:: Treatment Not Indicated
[2021-08-10] MEDS: oxyCODONE 5 MG Tablet 10 MG PO (10:24)
[2021-08-10] MEDS: Acetaminophen 325 MG Tablet 650 MG PO (10:25)
== END 2021-08-10 10:41 | disposition home or self-care (01) ==
LOC: SDC 05:40 → AC 05:41
PROVIDERS: PCP Family Medicine; Referring Provider Urology; Visit Provider Urology
PROC: (CPT 64581; principal; 2021-08-10 07:20)
DX: Z45.42 Encounter for adjustment and management of neurostimulator (principal); K21.9 Gastro-esophageal reflux disease without esophagitis; J45.909 Unspecified asthma, uncomplicated; F41.9 Anxiety disorder, unspecified; E78.5 Hyperlipidemia, unspecified; I10 Essential (primary) hypertension; K58.9 Irritable bowel syndrome, unspecified; M06.9 Rheumatoid arthritis, unspecified; G62.9 Polyneuropathy, unspecified; G47.33 Obstructive sleep apnea (adult) (pediatric); E66.9 Obesity, unspecified; M35.00 Sjogren syndrome, unspecified; M99.01 Segmental and somatic dysfunction of cervical region; N39.41 Urge incontinence; M99.02 Segmental and somatic dysfunction of thoracic region; Z79.899 Other long term (current) drug therapy; Z87.891 Personal history of nicotine dependence; Z68.41 Body mass index [BMI] 40.0-44.9, adult; F31.81 Bipolar II disorder
CPT/HCPCS: 00300; 64581; 64590; 76000; 85027; J7120; C1767; C1820; J2405

== ENCOUNTER → 2021-12-21 | Outpatient (CLI) | payer MEDICAID, SELFPAY ==
--- NOTE | 2021-12-21 13:40 | CT_ITS ---
STUDY: CT left lower extremity REASON FOR EXAM: Female, 66 years old. LT TOE BONE CYST RADIATION DOSAGE (If Supplied By Facility): CTDIvol = ( 19.84 ) mGy, DLP = ( 427.63 ) mGycm TECHNIQUE: Contiguous axial images of the left foot were obtained. Coronal and sagittal reformatted images were also obtained. Individualized dose optimization techniques were used for this CT. COMPARISON: None. FINDINGS: There is no acute fracture or dislocation. The joint spaces are intact with mild degenerative changes. Mild plantar calcaneal spurring. Mild enthesopathic changes in the calcaneus at the Achilles insertion site. No destructive osseous lesions. No lytic or sclerotic lesions. Soft tissues are unremarkable. CT/Extremity Lower without Contra IMPRESSION: Mild degenerative changes. Otherwise unremarkable CT of the left foot. Electronically Signed: Cam Sheth, at 16:17 EDT ,
== END | disposition home or self-care (01) ==
LOC: CT 13:08
PROVIDERS: PCP Family Medicine; Referring Provider Podiatrist; Visit Provider Podiatrist
DX: L72.9 Follicular cyst of the skin and subcutaneous tissue, unspecified (principal); M79.675 Pain in left toe(s)
CPT/HCPCS: 73700

== ENCOUNTER 2022-01-04 10:09 | Day surgery (SDC) | payer MEDICAID, SELFPAY ==
[2022-01-04 11:03] VITALS: BP 131/75; PULSE 92; RESP 18; TEMP 36.8; O2SAT 97; BMI 41.8
[2022-01-04] MEDS: Lactated Ringers 1,000 ML 15 ML IV (11:07)
--- NOTE | 2022-01-04 12:39 | PCM.DC ---
Discharge Instructions Diet Discharge Diet: No restrictions Activity Discharge Activity: Return to Normal Activity Dressing / Incision Call your doctor if your incision/area has: Continuous Slow Oozing, Sudden Increased Bleeding, Increased Pain/ Swelling and Foul Smelling Discharge Call your doctor if you observe: Fever of 101 or Higher, Inability to urinate and Inability to have a bowel movement Follow Up Care Please Follow Up With: Darya Abreu MD When: 2 weeks, call the office for appointment Test Results: Test results from this visit will be discussed in further detail at your follow-up appointment, if applicable. Discharge Plan Admission Attending Provider: Darya Abreu Primary Care Provider: Bay Ramos Discharge Orders/Prescriptions Prescriptions: New cephalexin [cephalexin] 500 MG capsule 500 mg PO Q12 3 Days Qty: 6 RF: 0 Continued ipratropium bromide 0.03 % spray,non-aerosol 2 spray INTRANASAL BID-TID PRN (Reason: allergy symptoms) Qty: 30 RF: 6 cholecalciferol (vitamin D3) 1,250 mcg (50,000 unit) capsule 1,250 mcg PO TU RF: 0 lisinopril 40 mg tablet 20 mg PO BID RF: 0 olanzapine 10 mg tablet 10 mg PO QHS RF: 0 potassium chloride 20 mEq tablet extended release 20 meq PO BID RF: 0 oxybutynin chloride 10 mg tablet extended release 24hr 10 mg PO DAILY RF: 0 acetaminophen 500 mg tablet 500 mg PO Q6H PRN (Reason: pain) Qty: 30 RF: 0 polyethylene glycol 3350 [Miralax] 17 gram Powder In Packet 17 g PO DAILY RF: 0 albuterol sulfate 2.5 mg /3 mL (0.083 %) solution for nebulization 2.5 mg inhalation TID PRN PRN (Reason: Wheezing) RF: 0 methocarbamol 500 mg Tablet 500 mg PO TID RF: 0 trazodone 100 mg tablet 100 mg PO QHS RF: 0 albuterol sulfate [ProAir HFA] 90 mcg/actuation HFA aerosol inhaler 1 puff INHALATION DAILY RF: 0 Referrals / Follow Up: Bay Ramos DO [Primary Care Provider] - Disposition Disposition (needs filled in before D/C Order can be placed): Home, Self Care
[2022-01-04 12:43] VITALS: BP 120/82; BP 131/75; PULSE 86; RESP 18; TEMP 36.3; O2SAT 100
[2022-01-04 12:45] VITALS: BP 126/85; BP 131/75; PULSE 87; RESP 18; O2SAT 96
[2022-01-04 12:50] VITALS: BP 131/75; BP 135/82; PULSE 88; RESP 18; O2SAT 95
[2022-01-04 12:55] VITALS: BP 131/75; BP 157/73; PULSE 86; RESP 18; TEMP 36.4; O2SAT 94
--- NOTE | 2022-01-04 13:10 | PCM.OPRPT ---
Problems Associated Problem List Diagnoses (1) Stress incontinence: Report of Operation Date of Procedure: 01/04/22 Pre-Operative Diagnosis: Stress urinary incontinence Post-Operative Diagnosis: Same Surgery/Procedure Performed:: Cystoscopy, Bulkamid injection Surgeon: Darya Abreu Type of Anesthesia: MAC Description of Procedure: The patient is a 66-year-old female with mixed urinary incontinence who presents for surgical intervention with Bulkamid injections for the stress portion of her leakage. Informed consent was obtained. The patient was taken to the operating room and placed on the operating room table. Anesthesia monitored the head, neck, airway, IV access and vital signs throughout the case. Once anesthesia was appropriate ministered, the patient was placed into dorsal lithotomy position and was prepped and draped in usual sterile fashion. At this time the sheath with the Bulkamid kit was prepared and connected with the inflow port, and the lens and light cord and camera were connected. The syringes were primed. The sheath was inserted through the urethra under direct visualization. The sheath was inserted all the way to the bladder neck at which point the needle was placed to 2 cm within the urinary bladder. The entire unit was pulled back into position, and in the 7 o'clock position of the urethra at correct depth, the needle was inserted to approximately 1/2 cm and was injected with half of a syringe with good ballooning of the urethra. This process was then repeated on the patient's urethra at the 5 o'clock position, 2 o'clock position and at last the 10 o'clock position. In total, 2 syringes of Bulkamid were used. At this time the cystoscope was removed and the case was terminated. The patient tolerated the procedure well and was awakened and taken to the recovery room in good condition. Complications none Admit VTE Documentation VTE Present on Admission: Yes VTE Mechan Device Prophylaxis: SCD's VTE Pharm Prophylaxis ordered?: No Reason prophylaxis not ordered:: Treatment Not Indicated
[2022-01-04 13:44] VITALS: BP 116/47; BP 131/75; PULSE 102; RESP 16; TEMP 36.1; O2SAT 99
== END 2022-01-04 14:04 | disposition home or self-care (01) ==
LOC: SDC 10:11 → AC 10:12
PROVIDERS: PCP Family Medicine; Referring Provider Urology; Visit Provider Urology
PROC: 3E0K8GC Introduction of Other Therapeutic Substance into Genitourinary Tract, Via Natural or Artificial Opening Endoscopic (ICD-10-PCS; CPT 52287; principal; 2022-01-04 11:55)
DX: N39.3 Stress incontinence (female) (male) (principal); F31.9 Bipolar disorder, unspecified; G47.33 Obstructive sleep apnea (adult) (pediatric); J45.909 Unspecified asthma, uncomplicated; I10 Essential (primary) hypertension; Z87.891 Personal history of nicotine dependence; N39.44 Nocturnal enuresis; R35.0 Frequency of micturition; N39.41 Urge incontinence
CPT/HCPCS: 51715; 00910; 87426; J7120; J2405

== ENCOUNTER 2022-03-18 11:09 | Outpatient (CLI) | payer MEDICAID, SELFPAY ==
--- NOTE | 2022-03-18 11:15 | RAD_ITS ---
EXAM: XR LEFT KNEE COMPLETE, 4 OR MORE VIEWS CLINICAL INDICATION: PAIN TECHNIQUE: Four or more views of the left knee. This report was created using [employer] report generation technology. COMPARISON: None. FINDINGS: BONES/JOINTS: There is a suprapatellar joint effusion present that measures 5.9 x 1.8 cm. There is mild narrowing of the lateral knee joint space. No acute fracture. No subluxation. Normal alignment. No sclerotic or destructive changes observed. SOFT TISSUES: Unremarkable. No soft tissue swelling or gas. No radiopaque foreign body. RAD/Knee 4 or More Views IMPRESSION: Mild degenerative changes with narrowing of the lateral knee joint. There are no acute osseous abnormalities. There is a suprapatellar joint effusion present. Electronically Signed: Roddy Zee MD at 2:56 EDT ,
== END 2022-03-18 23:59 | disposition home or self-care (01) ==
PROVIDERS: PCP Family Medicine; Referring Provider Family Medicine; Visit Provider Family Medicine
DX: M25.562 Pain in left knee (principal)
CPT/HCPCS: 73564

== ENCOUNTER → 2022-05-19 | Outpatient (CLI) | payer MEDICAID, SELFPAY | END | disposition home or self-care (01) | LOC: LABSPEC 13:34 | PROVIDERS: PCP Family Medicine; Visit Provider Obstetrics & Gynecology | DX: N39.0 Urinary tract infection, site not specified (principal) | CPT/HCPCS: 87086; 87088 ==

== ENCOUNTER 2022-05-26 12:00 | Outpatient (RCR) | payer MEDICAID, SELFPAY ==
--- NOTE | 2022-04-14 14:49 | HP.PTEVAL ---
Patient's Visit Information JOCE JOY is a 67 year old F referred to Physical Therapy by KRISTINE Meredith with a diagnosis of Left Knee OA. Date of Evaluation: 04/14/22 Physical Therapist: Mandy Ashley DPT - Visit Plan Frequency: 2x /Week Duration: 4 Weeks Plan: Focus on LE and core strength/stabilization- functional mobility. HEP Given IE: - Subjective She reports that she is trying to avoid a left knee replacement- right was done in 2005. She has RA and OA and she is trying to avoid surgery. She has pain management- she has tried ice, tylenol, rubs and everything and the pain was horrible 10/10. She was given a Predisone pack on March 22. She saw the MD who gave her a cortisone injection so it went from a 5-6/10 and for 2 weeks then she had no pain. But it has since flared back up and she is taking Vicoden. Today 2-3 up to a 7-8/10. She can't sit to long or stand to long- everything aggravates it. Eases: pain medication. Pain is located in the knee itself. It is not swollen currently but it comes and goes. 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 She has a bladder stimulator so she can't have an MRI. She does not want to have her knee replaced before she loses 40-50 lbs. She does not have someone to take care of her after so the knee replacement isn't an option at this point. PMHx/Meds: no change since 01/29/22- in chart. - Objective Posture: FH, RS- can correct with verbal cues but does not maintain. Observation: no edema noted. Stairs: asc/desc 8 recip with 2 HR- poor control with descent and reports discomfort. HR/TR: able without pain. SLS: weight shift but unable to SLS- reports instability. Sit to Stand: requires UE A Palpation: not tender to touch. ROM: 0-120 degrees. Strength: Core: fair minus, Hip: 4+/5, Knee: 4+/5, Ankle: 5/5. Flex:HS: mild, Gastroc: moderate - Balance/Special Test Scores Lower Extremity Functional Score: 57 - Goals Goal 1:: Patient will be I with HEP and progression Goal Time Frame: 4-6 Weeks Goal 2:: Patient will ambulate >300 feet with a normalized gait pattern and LRD Goal Time Frame: 4-6 Weeks Goal 3:: Patient will asc/desc 8 stairs recip with 1 HR Goal Time Frame: 4-6 Weeks Goal 4:: Patient will report 80% improvement Goal Time Frame: 4-6 Weeks - Rehabilitation Potential Physical Therapy Diagnosis: Patient presents with hypomobility- she has decreased LE and core strength/stabilization, flex and muscular endurance leading to abnormal gait and decreased ability to perform ADL's without pain Rehabilitation Potential: Fair - Anticipated Interventions Patient/Client Instruction: Educate patient on: Benefits of Fitness Program Therapeutic Exercise to Include: Strength training, Endurance training, Balance training, Coordination, Agility training, Body mechanics, Postural training, Flexibilty training, Gait and locomotor training, Neuromotor development, Dynamic Lumbar Stabilization, Scapular Strength/Stabilization For the Purpose of:: To improve muscle performance and motor function TENS: No Cryotherapy (ice pack, ice massage): Yes Thermo therapy (hot pack): Yes Ultrasound (thermal/non thermal): No Thank you for the opportunity to evaluate your patient. For Medicare and Medicare HMO plans, please review the plan of care and approve it. It will need to be FAXED BACK to us at [phone] for Medicare purposes. For Medicare only, by signing this I certify the plan of care. Please let me know if there are questions or concerns regarding this plan of care. Physician Signature: Date:
--- NOTE | 2022-05-26 12:59 | HP.PTDCSUM_ITS ---
It has been my pleasure to treat JOCE JOY referred by KRISTINE Meredith, with the diagnosis of Left Knee OA for a total of 9 visit(s). Discharge Date: Please see the following information for a summary of their discharge status. Subjective: Patient reports that she is doing okay, she is taking an anti- inflamatory. She does have pain if she uses it to much. L knee Pain Intensity (Out of 10): 0 R knee Pain Intensity (Out of 10): 0 % Improvement: 80 Objective/Function: Posture: FH, RS- can correct with verbal cues but does not maintain. Observation: no edema noted. Stairs: asc/desc 8 recip with 2 HR- poor control with descent and reports discomfort. HR/TR: able without pain. SLS: weight shift but unable to SLS- reports instability. Sit to Stand: requires UE A Palpation: not tender to touch. ROM: 0-120 degrees. Strength: Core: fair minus, Hip: 4+/5, Knee: 4+/5, Ankle: 5/5. Flex:HS: mild, Gastroc: moderate Goal 1:: Patient will be I with HEP and progression Goal 2:: Patient will ambulate >300 feet with a normalized gait pattern and LRD Goal 3:: Patient will asc/desc 8 stairs recip with 1 HR Goal 4:: Patient will report 80% improvement Plan: 05/26/22: Discharge to HEP If there are questions or concerns regarding this patient's physical therapy, please feel free to call me at [phone]. Thank you for the referral of this patient. Sincerely, Mandy Ashley, MARYT Balance/Gait/Functional tests - Balance/Special Test Scores Lower Extremity Functional Score: 54 Tug Test: <20 sec.=mostly independent
== END 2022-05-26 13:21 | disposition home or self-care (01) ==
LOC: PT 12:00
PROVIDERS: PCP Family Medicine; Referring Provider Nurse Practitioner Family; Visit Provider Nurse Practitioner Family
DX: M17.11 Unilateral primary osteoarthritis, right knee (principal)
CPT/HCPCS: 97110; 97162; 97164

== ENCOUNTER → 2022-06-21 | Outpatient (CLI) | payer MEDICAID, SELFPAY ==
--- NOTE | 2022-06-21 10:33 | RAD_ITS ---
STUDY: X-RAY - ABDOMEN/PELVIS REASON FOR EXAM: Female, 67 years old. CONSTIPATION TECHNIQUE: 2 views COMPARISON: None. FINDINGS: Spinal stimulator projects over the left iliac wing with lead projecting over the right hemisacrum. There are 2 right pelvic calcifications likely phleboliths cannot exclude distal ureteral or bladder calculi. Surgical clips right upper quadrant consistent with cholecystectomy. Normal visualized lung bases. Moderate stool throughout the colon. There is no demonstrated free abdominal air. The visualized liver, spleen and kidneys are grossly normal in size and morphology. Normal soft tissue structures. Normal visualized osseous structures. RAD/Abdomen Single View IMPRESSION: Fecal stasis. Status post cholecystectomy. Stimulator device lead projects over right hemisacrum. 2. Right pelvic calcifications likely phleboliths. Electronically Signed: Bay Pfeiffer MD, JOEL at 16:54 EDT ,
== END | disposition home or self-care (01) ==
LOC: RAD 10:24
PROVIDERS: PCP Family Medicine; Referring Provider Family Medicine; Visit Provider Family Medicine
DX: K59.00 Constipation, unspecified (principal)
CPT/HCPCS: 74018

== ENCOUNTER → 2022-07-12 | Outpatient (CLI) | payer MEDICAID, SELFPAY ==
--- NOTE | 2022-07-12 09:58 | BI_ITS ---
MAMMOGRAPHY - BILATERAL SCREENING REASON FOR EXAM: Female, 67 years old. Routine annual screening examination. PERTINENT HISTORY: Non-contributory. TECHNIQUE: Digital bilateral breast eric (3D mammographic acquisition) in the CC and MLO projections. 2-D mediolateral oblique (MLO) and craniocaudad (CC) views of both breasts were obtained. CAD: Full Field Digital Mammography with Computer Added Detection was performed. COMPARISON: Comparison is made with prior study dated 07/10/2021 and 07/09/2020. FINDINGS: Breast Composition: The breasts are almost entirely fatty. There are no dominant masses or suspicious calcifications. Stable small benign-appearing bilateral axillary lymph nodes. No other significant abnormalities are identified. There has been no significant change since the prior study. BI/SCRN MAMM (CAD)W/ERIC BILAT IMPRESSION: Stable bilateral screening mammogram. Yearly follow-up mammogram recommended. (A) ASSESSMENT CATEGORY: BIRADS Category 2: Benign. A letter regarding these results will be sent to the patient by the facility within 30 days. Approximately 10% of breast cancers are not detected by mammography. A normal mammogram should not delay biopsy of a clinically suspicious abnormality. [id number] Electronically Signed: Tahir Boone MD at 11:06 EST ,
== END | disposition home or self-care (01) ==
LOC: OPBI 09:57
PROVIDERS: PCP Family Medicine; Referring Provider Obstetrics & Gynecology; Visit Provider Obstetrics & Gynecology
DX: Z12.31 Encounter for screening mammogram for malignant neoplasm of breast (principal)
CPT/HCPCS: 77063; 77067

== ENCOUNTER → 2022-08-16 | Outpatient (CLI) | payer MEDICAID, SELFPAY ==
--- NOTE | 2022-08-16 10:25 | RAD_ITS ---
EXAM: XR ABDOMEN, 1 VIEW CLINICAL INDICATION: FLANK PAIN TECHNIQUE: Frontal supine view of the abdomen/pelvis. This report was created using [employer] report generation technology. COMPARISON: 06/21/2022. FINDINGS: LOWER THORAX: No acute pathology. GASTROINTESTINAL TRACT: Unremarkable. Non-obstructive. No bowel or stomach distention. ORGANS: Unremarkable as visualized. No organomegaly. No abnormal calcifications. BONES/JOINTS: No acute pathology. SOFT TISSUES: Surgical clips right upper quadrant. VASCULATURE: Calcifications in the right hemipelvis likely represent phleboliths and are unchanged. TUBES, LINES AND DEVICES: No change in the appearance of the stimulator device. RAD/Abdomen Single View IMPRESSION: 1. No change in the appearance of the stimulator device. 2. Calcifications in the right hemipelvis likely represent phleboliths and are unchanged. Electronically Signed: Timbo White MD at 5:09 EST ,
== END | disposition home or self-care (01) ==
PROVIDERS: PCP Family Medicine; Visit Provider Family Medicine
DX: R10.9 Unspecified abdominal pain (principal)
CPT/HCPCS: 74018

== ENCOUNTER → 2022-12-02 | Outpatient (CLI) | payer MEDICAID, SELFPAY ==
[2022-12-02 10:06] LABS: Absolute Lymphocyte Count 2.99 X10^3/uL (0.83-4.51); Absolute Neutrophil Count 3.3 X10^3/uL (2.0-7.7); Basophil# 0.02 X10^3/uL; Basophil% 0.3 % (0-1); Eosinophil# 0.08 X10^3/uL; Eosinophils% 1.1 % (0-5); Hematocrit 39.3 % (37-47); Hemoglobin 11.4 g/dL (12.0-15.0); Lymphocyte # 2.99 X10^3/ul (0.83-4.51); Lymphocyte % 41.9 % (19-41); Mean Corpuscular Hgb 26.5 pg (27.0-32.0); Mean Corpuscular Volume 91.4 fL (81-99); Mean Platelet Vol. 8.6 fl (6.2-12.0); Monocyte# 0.72 X10^3/uL; Monocyte% 10.1 % (0-10); NRBC Flagged by Analyzer 0 % (0-5); Neutrophil % 46.2 % (47-70); Platelet Count 402 K/mm3 (150-450); RBC Distribution Width CV 16.7 % (11.6-14.6); White Blood Count 7.1 K/mm3 (4.4-11.0)
[2022-12-02 10:40] LABS: ALB/GLOB Ratio 0.8 RATIO (0.9-2.4); AST(SGOT) 18 U/L (15-37); Alanine Aminotransfer ALT/SGPT 15 U/L (13-56); Albumin, Serum 3.6 g/dL (3.2-5.0); Alkaline Phosphatase 88 U/L (45-117); Anion Gap 5 (5-15); BUN 17 mg/dL (7-18); Calcium,Total 9.8 mg/dL (8.5-10.1); Chloride 101 mmol/L (98-107); Cholesterol 208 mg/dL (200); Creatinine, Serum 0.77 mg/dL (0.55-1.02); EST Glomerular Filtration Rate 79 mL/min (>60); Est Glom Filt Rate - Afr Amer 96 mL/min (>60); Globulin 4.6 g/dL (2.2-4.2); Glucose 96 mg/dL (74-106); High Density Lipoprotein 55 mg/dL; Potassium 4.4 mmol/L (3.5-5.1); Protein, Total 8.2 g/dL (6.4-8.2); Sodium Level 133 mmol/L (136-145); Triglycerides 146 mg/dL; Very Low Density Lipoprotein 29 mg/dL (5-40)
== END | disposition home or self-care (01) ==
LOC: LAB 08:28
PROVIDERS: PCP Family Medicine; Referring Provider Family Medicine; Visit Provider Family Medicine
DX: I11.0 Hypertensive heart disease with heart failure (principal); I50.9 Heart failure, unspecified; E78.5 Hyperlipidemia, unspecified
CPT/HCPCS: 36415; 80053; 80061; 85025

== ENCOUNTER 2022-12-08 08:17 | Outpatient (RCR) | payer MEDICAID, SELFPAY | END 2022-12-26 23:59 | LOC: NS 08:17 | PROVIDERS: PCP Family Medicine; Visit Provider Family Medicine | DX: Z71.3 Dietary counseling and surveillance (principal); E66.9 Obesity, unspecified; E78.5 Hyperlipidemia, unspecified; Z68.41 Body mass index [BMI] 40.0-44.9, adult | CPT/HCPCS: 97802 ==

== ENCOUNTER 2023-01-17 09:30 | Outpatient (RCR) | payer MEDICAID, SELFPAY ==
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
--- NOTE | 2023-01-17 09:37 | HP.PTDCSUM ---
It has been my pleasure to treat JOCE JOY referred by KRISTINE Win, with the diagnosis of cervical DDD, degeneration, spondylosis for a total of 10 visit(s). Discharge Date: 01/17/23 Please see the following information for a summary of their discharge status. Subjective: I have had no pain since last Tuesday. Got injection in neck and has felt good. Weekend was good. HEP: stretching and band exercises regualry. Using GTB 3x10. Activities normal over the weekend. Neck pain Pain Intensity (Out of 10): 0 % Improvement: 100 Objective/Function: Injection really helped and exercises will continue. Ready to be done. 65 L rot and 60 R rotation without pain. extension is 67 degrees no pain. Conscientious of posture. Much better ROM and confident with HEP and ROM. Goal 1:: 55 B rotation and 55 extension to help with safety while walking across road. Goal 2:: Pain in neck 0-2/10 at all times and manageable with ex. Goal Progress: Goal Met Goal 3:: I management of pain with posture, exercises via HEP Goal Progress: Goal Met Goal 4:: Pt feel 80% better overall with pain and funciton Goal Progress: Goal Met Goal 5:: neck oswestry to 15 or less Goal Progress: Goal Met Plan: d/c Discharge Comments: Doing well with pain and HEP, to pain management in a week or two. If there are questions or concerns regarding this patient's physical therapy, please feel free to call me at [phone]. Thank you for the referral of this patient. Sincerely, Jacob Sher, DPT, OCS, CSCS Balance/Gait/Functional tests - Balance/Special Test Scores Oswestry Neck Score: 0
== END 2023-01-17 19:00 | disposition home or self-care (01) ==
LOC: PT 09:30
PROVIDERS: PCP Family Medicine; Referring Provider Nurse Practitioner Acute Care; Visit Provider Nurse Practitioner Acute Care
DX: M47.22 Other spondylosis with radiculopathy, cervical region (principal); M50.30 Other cervical disc degeneration, unspecified cervical region
CPT/HCPCS: 97110; 97140; 97162; 97164

== ENCOUNTER 2023-01-26 11:15 | Outpatient (RCR) | payer MEDICAID, SELFPAY | END 2023-01-26 23:59 | LOC: NS 11:15 | PROVIDERS: PCP Family Medicine; Referring Provider Family Medicine; Visit Provider Family Medicine | DX: Z71.3 Dietary counseling and surveillance (principal); E66.9 Obesity, unspecified; E78.5 Hyperlipidemia, unspecified; Z68.41 Body mass index [BMI] 40.0-44.9, adult | CPT/HCPCS: 97803 ==

== ENCOUNTER 2023-02-14 10:12 | Outpatient (RCR) | payer MEDICAID, SELFPAY | END 2023-02-25 23:59 | LOC: NS 10:12 | PROVIDERS: PCP Family Medicine; Referring Provider Family Medicine; Visit Provider Family Medicine | DX: Z71.3 Dietary counseling and surveillance (principal); E66.9 Obesity, unspecified; E78.5 Hyperlipidemia, unspecified; Z68.41 Body mass index [BMI] 40.0-44.9, adult | CPT/HCPCS: 97803 ==

== ENCOUNTER 2023-03-07 09:38 | Outpatient (RCR) | payer MEDICAID, SELFPAY | END 2023-03-28 23:59 | LOC: NS 09:38 | PROVIDERS: PCP Family Medicine; Referring Provider Family Medicine; Visit Provider Family Medicine | DX: Z71.3 Dietary counseling and surveillance (principal); E66.9 Obesity, unspecified; E78.5 Hyperlipidemia, unspecified; Z68.41 Body mass index [BMI] 40.0-44.9, adult | CPT/HCPCS: 97803 ==

== ENCOUNTER 2023-03-22 09:00 | Emergency (ER) | payer MEDICAID, SELFPAY ==
[2023-03-22 09:01] VITALS: BP 133/68; PULSE 95; RESP 14; TEMP 36.6; O2SAT 100
--- NOTE | 2023-03-22 09:03 | EDS_ITS ---
HPI History of Present Illness Chief Complaint: Lower Extremity Injury [facility] Medical History Acute hepatitis C Anxiety Asthma Back sprain BiPAP (biphasic positive airway pressure) dependence Bipolar disorder Chest pain Depression Difficulty chewing Encounter for screening for malignant neoplasm of colon Epigastric abdominal pain Eustachian tube dysfunction Former smoker GERD (gastroesophageal reflux disease) Hepatitis Herpes simplex with unspecified complication History of echocardiogram History of edema History of IBS History of irregular heartbeat History of stress test Hyperlipidemia Hypertension Injury of head and neck Leg cramps Lightheadedness Long-term use of high-risk medication Loss of appetite Mild dilation of ascending aorta Mild mitral regurgitation Nephrolithiasis Neuropathy Nightmares Obesity OCD (obsessive compulsive disorder) TROY (obstructive sleep apnea) Otitis media Paroxysmal atrial tachycardia Rheumatoid arthritis Rhinorrhea Right flank pain Segmental and somatic dysfunction of cervical region Segmental and somatic dysfunction of thoracic region Sinusitis Sjogrens syndrome Spinal stenosis of lumbar region Stress incontinence Thoracic aortic aneurysm without rupture Home Medications ipratropium bromide 21 mcg (0.03 %) nasal spray 2 spray intranasal BID-TID PRN allergy symptoms #30 mL 02/18/20 [Rx Last Taken 08/10/21 04:40] cholecalciferol (vitamin D3) 1,250 mcg (50,000 unit) capsule 1,250 mcg PO TU 10/08/20 [History Last Taken Unknown] lisinopril 40 mg tablet 20 mg PO BID 10/08/20 [History Last Taken 01/04/22] olanzapine 10 mg tablet 10 mg PO QHS 10/08/20 [History Last Taken Unknown] potassium chloride 20 mEq tablet,extended release 20 meq PO BID 10/08/20 [History Last Taken Unknown] acetaminophen 500 mg tablet 500 mg PO Q6H PRN pain #30 tabs 03/24/21 [Rx Last Taken Unknown] oxybutynin chloride 10 mg tablet,extended release 24 hr 10 mg PO DAILY 07/31/21 [History Last Taken Unknown] albuterol sulfate 2.5 mg/3 mL (0.083 %) solution for nebulization 2.5 mg inhalation TID PRN PRN Wheezing 08/05/21 [History Last Taken 01/04/22] polyethylene glycol 3350 17 gram oral powder packet (Miralax) 17 g PO DAILY 08/05/21 [History Last Taken Unknown] albuterol sulfate 90 mcg/actuation aerosol inhaler (ProAir HFA) 1 puff inhalation DAILY 01/01/22 [History Last Taken Unknown] methocarbamol 500 mg tablet 500 mg PO TID 01/01/22 [History Last Taken Unknown] trazodone 100 mg tablet 100 mg PO QHS 01/01/22 [History Last Taken Unknown] cephalexin 500 mg capsule 500 mg PO Q12 post-operative 3 days #6 CAPSULES 01/04/22 [Rx Last Taken Unknown] Allergy/AdvReac Type Severity Reaction Status Date / Time tramadol [From Ultram] Allergy Intermediate Itching Verified 03/22/23 09:01 divalproex sodium AdvReac Intermediate Other - Verified 03/22/23 09:01 [From Depakote] nightmares quetiapine [From Seroquel] AdvReac Mild Other - Verified 03/22/23 09:01 shaking, lightheaded and abnormal dreams meloxicam AdvReac Unknown Verified 03/22/23 09:01 Family History Father Cancer Alcoholism Hypertension Mother Heart disease H/O weight disorder Myocardial infarction Hypertension COPD (chronic obstructive pulmonary disease) Skin cancer Sister Hypertension Surgical History bladder sling removal H/O eye surgery H/O hand surgery H/O: hysterectomy History of appendectomy History of bilateral carpal tunnel release History of total right knee replacement Hx laparoscopic cholecystectomy Hx of surgical procedure Social History Smoking Status: Former smoker quit date: 08/29/82 pack-years: 15 second hand exposure: No alcohol intake: never substance use type: does not use EXAM Physical Exam Const Vital Signs: 03/22/23 09:01 Temperature 98 F Temperature Source Temporal Pulse Rate 95 Respiratory Rate 14 Blood Pressure 133/68 H Blood Pressure Mean 89 Pulse Ox 100 Oxygen Delivery Method Room Air MDM MDM MDM Narrative Medical decision making narrative: HISTORY OF PRESENT ILLNESS: 68-year-old here with left knee pain after a fall on tuesday. She notes she slipped on water and injured her left ankle and left knee. States the pain is constant severe without alleviating exacerbating features. No demonstrated fracture. REVIEW OF SYSTEMS: Pertinent positives: Knee pain Pertinent negatives: Loss of sensation, head trauma PHYSICAL EXAM: Nursing triage notes reviewed, Vital signs reviewed Constitutional: please see mdm Lungs: Clear to auscultation, No wheezing or rales. No increased work of breathing, no conversational dyspnea, no accessory muscle use, no nasal flaring. No respiratory distress noted Heart: Regular rate and rhythm, No murmurs, No rubs and No gallops, 2+ distal pulses (radial, femoral, posterior tibial) in all extremities Abdomen: Soft, there is no tenderness, rigidity, rebound or guarding, no obvious peritoneal signs, no palpable pulsatile abdominal masses, no auscultated abdominal bruit : No CVAT Extremities: Slight swelling and TTP over left lateral malleolus Neuro: Intact sensation L1-S1 dermatomal distributions. Intact 5/5 strength in hip flexion (T12-L3). Knee extension (L2-L4). Ankle dorsiflexion (L4-L5). Ankle plantar flexion (S1). Great toe extension (L5). 2+ patellar and Achilles DTRs. Skin: No rash or lesions noted MEDICAL DECISION MAKING: Chief Complaint: knee pain External records reviewed: L knee Xr shows the following IMPRESSION: Mild arthrosis of the lateral femorotibial compartment. ALL IMAGES (IF OBTAINED) HAVE BEEN PERSONALLY REVIEWED AND INTERPRETED BY MYSELF. [facility] Narrative: Patient was hemodynamically stable, afebrile, nontoxic-appearing. Exam I considered the following differential diagnosis: Ankle fracture dislocation, knee fracture-dislocation, bony contusion X-rays were obtained. Radiology revealed avulsion fracture left lateral malleolus. We will place the patient in an Aircast and have her follow with orthopedic surgery next field appointment. Encouraged RICE therapy. Encouraged anti-inflammatories. The patient and/or family, caregivers express understanding. The patient and/or family, caregivers agrees with the plan. Shared decision making: I will have a discussion with the patient and or visitors regarding risk/benefits of further testing or admission. They will be made aware of of the risk/benefits inherent in this decision they will be given the opportunity to voice understanding. Total critical care time today provided was at least 0 minutes. This excludes separately billable procedures. Critical care time (if documented) is secondary to the patient having high probability of clinically significant/life threatening deterioration in the patient's condition which required my urgent intervention. Radiography Chest X-Ray - ED: Read by ED Physician Diagnostic Testing: Clinical Impression(s) from Imaging Studies Ankle X-Ray 03/22/23 09:20 IMPRESSION: Diffuse soft tissue swelling surrounding the ankle. Questionable tiny avulsion fractures extending from the lateral malleolus. Electronically Signed: Vincenzo Almazan, at 9:47 EDT Reading Location ID and State: [facility] / [place] Tel , Service support , ADDENDUM: 03/22/23 1006 IMPRESSION: Diffuse soft tissue swelling surrounding the ankle. Questionable tiny avulsion fractures extending from the lateral malleolus. N.B. : Angélica Martinez RN, confirmed on 03/22/2023 09:59:48 (ET) that the healthcare facility has received the radiology report. Electronically Signed: Vincenzo Almazan, at 9:47 EDT Reading Location ID and State: [facility] / [place] Tel , Service support , X-ray of left ankle personally viewed by myself shows no obvious fracture dislocation. X-ray of left knee personally viewed by myself shows no obvious fracture dislocation Discharge Plan Triage Chief Complaint: Lower Extremity Injury ED Provider: Josue Apodaca Dx/Rx/DC Orders Clinical Impression: Avulsion fracture of left ankle Prescriptions: No Action ipratropium bromide 0.03 % spray,non-aerosol 2 spray INTRANASAL BID-TID PRN (Reason: allergy symptoms) Qty: 30 6RF Rx Instructions: administer into each nostril; wait 30 seconds between sprays cholecalciferol (vitamin D3) 1,250 mcg (50,000 unit) capsule 1,250 mcg PO TU lisinopril 40 mg tablet 20 mg PO BID olanzapine 10 mg tablet 10 mg PO QHS potassium chloride 20 mEq tablet extended release 20 meq PO BID oxybutynin chloride 10 mg tablet extended release 24hr 10 mg PO DAILY acetaminophen 500 mg tablet 500 mg PO Q6H PRN (Reason: pain) Qty: 30 0RF polyethylene glycol 3350 [Miralax] 17 gram Powder In Packet 17 g PO DAILY albuterol sulfate 2.5 mg /3 mL (0.083 %) solution for nebulization 2.5 mg inhalation TID PRN PRN (Reason: Wheezing) methocarbamol 500 mg Tablet 500 mg PO TID trazodone 100 mg tablet 100 mg PO QHS albuterol sulfate [ProAir HFA] 90 mcg/actuation HFA aerosol inhaler 1 puff INHALATION DAILY cephalexin [cephalexin] 500 MG capsule 500 mg PO Q12 3 Days Qty: 6 0RF Primary Care Provider: Bay Ramos Referrals: John Agee DO [Med Staff - Active Staff] - Activity Restrictions/Additional Instructions: Thank you for trusting us with your care today! Please take Tylenol (2 pills, 650 mg), ibuprofen (2 pills, 400 mg) every 6 hours as needed for pain and fever control. Please wear ankle brace has been provided as much as possible. Please return to the emergency department if your symptoms change or worsen. Please follow with your primary care physician for further outpatient evaluation and management. Disposition Disposition: Home, Self Care
--- NOTE | 2023-03-22 09:10 | RAD_ITS ---
INDICATION: knee pain after fall EXAMINATION/TECHNIQUE: X-RAY - LEFT XR Knee 1 or 2 Views 2 VIEWS COMPARISON: FINDINGS: SOFT TISSUES: No soft tissue swelling or gas. No radiopaque foreign body. BONES/JOINTS: No acute fracture or subluxation.. Normal alignment. There is moderate to severe lateral joint space narrowing. There is mild patellofemoral joint space narrowing. There is a prominent suprapatellar joint effusion... No sclerotic or destructive changes observed. RAD/Knee 1 or 2 Views IMPRESSION: Degenerative changes and joint effusion. Electronically Signed: Vincenzo Almazan, at 12:00 EDT ,
--- NOTE | 2023-03-22 09:20 | RAD_ITS ---
ACR Level 3 findings have been noted. An addendum which confirms receipt of the report will follow. INDICATION: PAIN AFTER FALLING EXAMINATION/TECHNIQUE: X-RAY - LEFT XR Ankle Min 3 Views 6 VIEWS COMPARISON: FINDINGS: SOFT TISSUES: There is extensive soft tissue swelling surrounding the ankle. No radiopaque foreign body. BONES/JOINTS: There are questionable tiny bone fragments noted near the lateral malleolus which may represent small avulsion fractures.. Normal alignment. Preservation of the joint space.. No sclerotic or destructive changes observed. RAD/Ankle min 3 Views IMPRESSION: Diffuse soft tissue swelling surrounding the ankle. Questionable tiny avulsion fractures extending from the lateral malleolus. Electronically Signed: Vincenzo Almazan, at 9:47 EDT ,
[2023-03-22 09:33] VITALS: BMI 43.8
== END 2023-03-22 11:06 | disposition home or self-care (01) ==
PROVIDERS: Emergency Provider Emergency Medicine; PCP Family Medicine; Visit Provider Emergency Medicine
DX: S82.892A Other fracture of left lower leg, initial encounter for closed fracture (principal); G47.33 Obstructive sleep apnea (adult) (pediatric); Z87.891 Personal history of nicotine dependence; X58.XXXA Exposure to other specified factors, initial encounter
CPT/HCPCS: 73560; 73610; 99283

== ENCOUNTER 2023-04-20 10:00 | Outpatient (RCR) | payer MEDICAID, SELFPAY | END 2023-04-28 23:59 | LOC: NS 10:00 | PROVIDERS: PCP Family Medicine; Referring Provider Family Medicine; Visit Provider Family Medicine | DX: Z71.3 Dietary counseling and surveillance (principal); E66.9 Obesity, unspecified; E78.5 Hyperlipidemia, unspecified; Z68.41 Body mass index [BMI] 40.0-44.9, adult | CPT/HCPCS: 97803 ==

== ENCOUNTER → 2023-04-28 | Outpatient (CLI) | payer MEDICAID, SELFPAY ==
--- NOTE | 2023-04-28 10:51 | BD_ITS ---
STUDY: DUAL ENERGY X-RAY ABSORPTIOMETRY / DXA REASON FOR EXAM: Female, 68 years old. 733.00OsteoporosisBONE DENSITY REASON FOR EXAM -- KNOWS SHE''S EARLY, VAN DROPPED HER OFF EARLY TECHNIQUE: Bone Mineral Density (BMD) measurements of lumbar spine and bilateral hips were obtained. COMPARISON: None. FINDINGS: Lumbar Spine (L1-L4): g/cm2 (0.925) / T-score (-0.8) / Z-score (1.0) Findings are suggestive of normal bone density with a low fracture risk. Left Femur Total: g/cm2 (1.047) / T-score (0.9) / Z-score (2.2) Left Femoral Neck: g/cm2 (0.838) / T-score (-0.1) / Z-score (1.5) Right Femur Total: g/cm2 (0.969) / T-score (0.2) / Z-score (1.6) Right Femoral Neck: g/cm2 (0.888) / T-score (0.4) / Z-score (2.0) BD/Dexa Bone Density Study IMPRESSION: The patient is considered normal as outlined below according to World [place] Organization (WHO) criteria with a low fracture risk. Reference Information: The T-score is the number of standard deviations above or below the standard which is normal for young adults at their peak bone mineral density. The World Health Organization (WHO) interprets the T-scores as follows: Above -1 Normal bone density Between -1 and -2.5 Osteopenia Equal to / or below -2.5 Osteoporosis As a practical clinical guideline, osteopenia may be graded as follows: Mild -1 through -1.5 Moderate -1.6 through -2.0 Severe -2.1 through -2.4 The Z-score is the number of standard deviations above or below age-matched controls. A Z-score of less than -1.5 would be considered abnormal. References: 1. NIH Osteoporosis and Related Bone Diseases www osteo.org 2. International Society for Clinical Densitometry www iscd.org 3. National Osteoporosis Foundation www nof.org Electronically Signed: Tahir Boone MD at 11:03 EDT ,
== END | disposition home or self-care (01) ==
LOC: OPBD 09:58
PROVIDERS: PCP Family Medicine; Referring Provider Family Medicine; Visit Provider Family Medicine
DX: M81.0 Age-related osteoporosis without current pathological fracture (principal)
CPT/HCPCS: 77080

== ENCOUNTER 2023-05-11 10:40 | Outpatient (RCR) | payer MEDICAID, SELFPAY | END 2023-05-28 23:59 | LOC: NS 10:40 | PROVIDERS: PCP Family Medicine; Referring Provider Family Medicine; Visit Provider Family Medicine | DX: Z71.3 Dietary counseling and surveillance (principal); E66.9 Obesity, unspecified; E78.5 Hyperlipidemia, unspecified; Z68.41 Body mass index [BMI] 40.0-44.9, adult | CPT/HCPCS: 97803 ==

== ENCOUNTER 2023-06-06 09:57 | Outpatient (RCR) | payer MEDICAID, SELFPAY | END 2023-06-28 23:59 | LOC: NS 09:57 | PROVIDERS: PCP Family Medicine; Referring Provider Family Medicine; Visit Provider Family Medicine | DX: Z71.3 Dietary counseling and surveillance (principal); E66.9 Obesity, unspecified; E78.5 Hyperlipidemia, unspecified; Z68.41 Body mass index [BMI] 40.0-44.9, adult | CPT/HCPCS: 97803 ==

== ENCOUNTER → 2023-06-20 | Outpatient (CLI) | payer MEDICAID, SELFPAY ==
[2023-06-20 17:48] LABS: Absolute Lymphocyte Count 2.93 X10^3/uL (0.83-4.51); Absolute Neutrophil Count 3.2 X10^3/uL (2.0-7.7); Basophil# 0.02 X10^3/uL; Basophil% 0.3 % (0-1); Eosinophil# 0.09 X10^3/uL; Eosinophils% 1.3 % (0-5); Hematocrit 36.3 % (37-47); Hemoglobin 10.5 g/dL (12.0-15.0); Lymphocyte # 2.93 X10^3/ul (0.83-4.51); Lymphocyte % 41.7 % (19-41); Mean Corp Hgb Conc 28.9 g/dL (32-36); Mean Corpuscular Hgb 25.1 pg (27.0-32.0); Mean Corpuscular Volume 86.8 fL (81-99); Mean Platelet Vol. 8.7 fl (6.2-12.0); Monocyte% 11.4 % (0-10); NRBC Flagged by Analyzer 0 % (0-5); Neutrophil # 3.16 X10^3/uL (2.7-7.7); Neutrophil % 44.9 % (47-70); Platelet Count 438 K/mm3 (150-450); RBC Distribution Width CV 16.8 % (11.6-14.6); RBC Distribution Width SD 53.8 fl (35.1-43.9); Red Blood Count 4.18 M/mm3 (4.2-5.4)
[2023-06-20 18:52] LABS: ALB/GLOB Ratio 0.7 RATIO (0.9-2.4); AST(SGOT) 21 U/L (15-37); Alanine Aminotransfer ALT/SGPT 19 U/L (13-56); Albumin, Serum 3.5 g/dL (3.2-5.0); Alkaline Phosphatase 93 U/L (45-117); Anion Gap -2 (5-15); BUN 12 mg/dL (7-18); BUN/Creat Ratio 17.6 RATIO (10-20); Calcium,Total 9.2 mg/dL (8.5-10.1); Chloride 99 mmol/L (98-107); Creatinine, Serum 0.68 mg/dL (0.55-1.02); EST Glomerular Filtration Rate 92 mL/min (>60); Est Glom Filt Rate - Afr Amer 111 mL/min (>60); Globulin 4.7 g/dL (2.2-4.2); Glucose 86 mg/dL (74-106); Magnesium 2.1 mg/dL (1.6-2.6); Potassium 4.3 mmol/L (3.5-5.1); Protein, Total 8.2 g/dL (6.4-8.2); Sodium Level 126 mmol/L (136-145)
== END | disposition home or self-care (01) ==
LOC: BFHLAB 14:56
PROVIDERS: PCP Nurse Practitioner Family; Referring Provider Nurse Practitioner Family; Visit Provider Nurse Practitioner Family
DX: R07.9 Chest pain, unspecified (principal); R06.02 Shortness of breath
CPT/HCPCS: 36415; 80053; 83735; 85025; 86141

== ENCOUNTER → 2023-06-21 | Outpatient (CLI) | payer MEDICAID, SELFPAY ==
--- NOTE | 2023-06-21 15:10 | RAD_ITS ---
HISTORY: CHEST PAIN, SOB. TECHNIQUE: XR Chest 2 Views. COMPARISON: 04/21/2018. FINDINGS: CARDIOMEDIASTINAL BORDERS: Cardiac silhouette within normal limits in size. Mediastinal contour unremarkable. LUNGS: Mild lingular atelectasis or scarring. PLEURA: No pleural effusion or pneumothorax seen. OSSEOUS STRUCTURES: Spinal osteophytes present. RAD/Chest PA and Lateral IMPRESSION: Mild atelectasis or scarring in the lingula. Electronically Signed: Eileen Valencia MD at 15:58 EDT ,
== END | disposition home or self-care (01) ==
LOC: RAD 15:08
PROVIDERS: PCP Nurse Practitioner Family; Referring Provider Nurse Practitioner Family; Visit Provider Nurse Practitioner Family
DX: R07.9 Chest pain, unspecified (principal); R06.02 Shortness of breath
CPT/HCPCS: 71046

== ENCOUNTER → 2023-07-14 | Outpatient (CLI) | payer MEDICAID, SELFPAY ==
--- NOTE | 2023-07-14 11:49 | BI_ITS ---
MAMMOGRAPHY - BILATERAL SCREENING REASON FOR EXAM: Female, 68 years old. Routine annual screening examination. PERTINENT HISTORY: Non-contributory. TECHNIQUE: Digital bilateral breast eric (3D mammographic acquisition) in the CC and MLO projections. 2-D mediolateral oblique (MLO) and craniocaudad (CC) views of both breasts were obtained. CAD: Full Field Digital Mammography with Computer Added Detection was performed. COMPARISON: Comparison is made with prior study dated July 12, 2022 and July 10, 2021. FINDINGS: Breast Composition: The breasts are almost entirely fatty. There are no dominant masses or suspicious calcifications. Stable bilateral fat containing bilateral axillary lymph nodes. No other significant abnormalities are identified. There has been no significant change since the prior study. BI/SCRN MAMM (CAD)W/ERIC BILAT IMPRESSION: Stable bilateral screening mammogram. Yearly follow-up mammogram recommended. (A) ASSESSMENT CATEGORY: BIRADS Category 2: Benign. A letter regarding these results will be sent to the patient by the facility within 30 days. Approximately 10% of breast cancers are not detected by mammography. A normal mammogram should not delay biopsy of a clinically suspicious abnormality. [id number] Electronically Signed: Tahir Boone MD at 13:39 EST ,
== END | disposition home or self-care (01) ==
LOC: BIRAD 11:47
PROVIDERS: PCP Nurse Practitioner Family; Referring Provider Family Medicine; Visit Provider Family Medicine
DX: Z12.31 Encounter for screening mammogram for malignant neoplasm of breast (principal)
CPT/HCPCS: 77063; 77067

== ENCOUNTER → 2023-07-18 | Outpatient (CLI) | payer MEDICAID, SELFPAY ==
[2023-07-18 15:25] LABS: Color, Urine Yellow (Yellow); Glucose, Dipstick Normal (Normal); Ketone-Dipstick Negative (Negative); Leukocyte Esterase-Dipstick 100 /ul (Negative); Nitrite-Dipstick Negative (Negative); Occult Blood-Urine Negative /ul (Negative); Protein-Dipstick Negative (Negative); Urine Bilirubin Dipstick Negative (Negative); Urine Clarity Clear (Clear); Urine Urobilinogen Normal (Normal); Urine pH 6.5 (5.0 - 8.0)
[2023-07-18 15:36] LABS: Anion Gap 6 (5-15); BUN 14 mg/dL (7-18); BUN/Creat Ratio 21.4 RATIO (10-20); Calcium,Total 8.8 mg/dL (8.5-10.1); Chloride 103 mmol/L (98-107); Creatinine, Serum 0.65 mg/dL (0.55-1.02); EST Glomerular Filtration Rate 96 mL/min (>60); Est Glom Filt Rate - Afr Amer 116 mL/min (>60); Glucose 77 mg/dL (74-106); Potassium 4.4 mmol/L (3.5-5.1); Sodium Level 136 mmol/L (136-145)
== END | disposition home or self-care (01) ==
LOC: BFHLAB 11:51
PROVIDERS: PCP Family Medicine; Visit Provider Family Medicine
DX: R10.9 Unspecified abdominal pain (principal); E87.1 Hypo-osmolality and hyponatremia
CPT/HCPCS: 36415; 80048; 81002

== ENCOUNTER 2023-07-25 08:30 | Outpatient (RCR) | payer MEDICAID, SELFPAY | END 2023-07-28 23:59 | LOC: NS 08:30 | PROVIDERS: PCP Nurse Practitioner Family; Referring Provider Family Medicine; Visit Provider Family Medicine | DX: Z71.3 Dietary counseling and surveillance (principal); E66.9 Obesity, unspecified; E78.5 Hyperlipidemia, unspecified; Z68.41 Body mass index [BMI] 40.0-44.9, adult | CPT/HCPCS: 97803 ==

== ENCOUNTER → 2023-07-27 | Outpatient (CLI) | payer MEDICAID, SELFPAY ==
--- NOTE | 2023-07-28 08:29 | PFT ---
INTRODUCTION: The patient is a 68-year-old female who presents for pulmonary function studies secondary to a diagnosis of asthma. Respiratory therapy reported good patient effort. Bronchodilators were used during testing. INTERPRETATION: Forced expiration spirometry demonstrates no evidence of a large airways obstructive ventilatory defect. There was a significant response to aerosolized bronchodilators. Spirograms are of good quality and plateau normally. Body plethysmography was performed and revealed lung volumes to be within normal limits. Diffusing capacity by single breath CO was reduced to 50% of predicted. IMPRESSION: Isolated moderate reduction in diffusing capacity with significant bronchodilator response noted.
== END | disposition home or self-care (01) ==
LOC: PSN 10:26
PROVIDERS: PCP Family Medicine; Referring Provider Internal Medicine Critical Care Medicine; Visit Provider Internal Medicine Critical Care Medicine
DX: J45.20 Mild intermittent asthma, uncomplicated (principal)
CPT/HCPCS: 94060; 94726; 94729

== ENCOUNTER → 2023-08-04 | Outpatient (CLI) | payer MEDICAID, SELFPAY ==
[2023-08-04 13:45] VITALS: PULSE 103; PULSE 104; PULSE 106; PULSE 112; PULSE 86; PULSE 90; O2SAT 92; O2SAT 93; O2SAT 95; O2SAT 97; O2SAT 98
--- NOTE | 2023-08-05 13:56 | PCM.PSN.6M ---
PSN 6 Minute Walk Test 6 Minute Walk Test 6 Minute Walk Test: 6 Minute Walk Test PSN:6-Minute Walk Test Start: 08/04/23 14:03 Freq: Status: Active Protocol: RESP.6MINW Document 08/04/23 13:45 AEH (Rec: 08/04/23 14:[address] [facility] Desktop) 6 Minute Walk Test Date Performed 08/04/23 Time Performed 13:45 Height 5 ft 3 in Weight: 108.862 kg Weight in Pounds 240.[address]: Dr Olmos Assistive device used: None Pre-test Oxygen Delivery Method Room Air Pulse Ox 98 Pulse Rate (60-100) 86 Dyspnea Felice Scale (0-10) 0 Exertion Felice Scale (6-20) 6 1st minute Oxygen Delivery Method Room Air Pulse Ox 95 Pulse Rate (60-100) 112 H 2nd minute Oxygen Delivery Method Room Air Pulse Ox 95 Pulse Rate (60-100) 103 H 3rd minute Oxygen Delivery Method Room Air Pulse Ox 93 Pulse Rate (60-100) 103 H 4th minute Oxygen Delivery Method Room Air Pulse Ox 93 Pulse Rate (60-100) 104 H 5th minute Oxygen Delivery Method Room Air Pulse Ox 95 Pulse Rate (60-100) 104 H 6th minute Oxygen Delivery Method Room Air Pulse Ox 92 Pulse Rate (60-100) 106 H Dyspnea Felice Scale (0-10) 2 Exertion Felice Scale (6-20) 12 Post-test Oxygen Delivery Method Room Air Pulse Ox 97 Pulse Rate (60-100) 90 Full Laps Walked 14 Partial Lap, Number of Tiles Walked 0 Total Distance Walked (ft) 826 Interpretation Interpretation: The patient was able to ambulate 826 feet over the course of 6 minutes on room air with no assistive devices or breaks. The patient did develop significant tachycardia to 112 bpm during ambulation indicating a probable cardiovascular limitation exercise tolerance. Recommendations Recommendations: No supplemental oxygen is indicated at this time.
== END | disposition home or self-care (01) ==
LOC: PSN 13:28
PROVIDERS: PCP Family Medicine; Referring Provider Internal Medicine Critical Care Medicine; Visit Provider Internal Medicine Critical Care Medicine
DX: J45.20 Mild intermittent asthma, uncomplicated (principal); M06.9 Rheumatoid arthritis, unspecified
CPT/HCPCS: 94060; 94726; 94729

== ENCOUNTER 2023-08-17 13:41 | Outpatient (RCR) | payer MEDICAID, SELFPAY | END 2023-08-28 23:59 | LOC: NS 13:41 | PROVIDERS: PCP Family Medicine; Referring Provider Family Medicine; Visit Provider Family Medicine | DX: Z71.3 Dietary counseling and surveillance (principal); E66.9 Obesity, unspecified; E78.5 Hyperlipidemia, unspecified; Z68.41 Body mass index [BMI] 40.0-44.9, adult | CPT/HCPCS: 97803 ==

== ENCOUNTER → 2023-08-18 | Outpatient (CLI) | payer MEDICAID, SELFPAY ==
--- NOTE | 2023-08-18 08:42 | ECHOCS_ITS ---
Reason For Study: PHTN Procedure This was a 2D Doppler, Color Flow transthoracic echocardiogram. The study was technically difficult. Exam performed in department. Left Ventricle Normal LV size. Left ventricular systolic function is normal. The estimated ejection fraction is 65 %. Stage 1 diastolic dysfunction. No regional wall motion abnormalities noted. Right Ventricle Normal RV size. Normal systolic function. Atria Normal left atrium. Normal right atrium. Mitral Valve Normal mitral valve. Tricuspid Valve Normal tricuspid valve. Mild tricuspid valve insufficiency. Pulmonary artery systolic pressure is 23 mmHg. Aortic Valve The aortic valve is not well visualized. Pulmonic Valve Normal pulmonic valve. Great Vessels Normal aortic root. The pulmonary artery is normal size. Normal inferior vena cava. Pericardium/Pleural No pericardial effusion. Medication 22 gauge I.V. with prn adaptor inserted into right arm. Performed a rapid injection of agitated mix of 9 cc saline and 1cc air to assess for atrial septal defect. Diluted definity 2ml given slow IV push to enhance endocardial definition. MMode/2D Measurements & Calculations LVIDd: 4.7 cm IVSd: 1.2 cm Ao root diam: 3.8 cm LVIDs: 2.8 cm LVPWd: 1.0 cm RVDd: 3.4 cm FS: 40.3 % LAV(MOD-bp): 48.5 ml LVAd ap4: 21.5 cm2 LVAd ap2: 20.7 cm2 LAV(MOD-bp) Indexed: 22.9 ml/m2 LVLd ap4: 6.1 cm LVLd ap2: 6.7 cm LAV(MOD-sp2): 51.6 ml EDV(MOD-sp4): 63.1 ml EDV(MOD-sp2): 53.1 ml LAV(MOD-sp4): 42.5 ml EDV(sp4-el): 64.4 ml EDV(sp2-el): 54.8 ml LVAs ap4: 12.2 cm2 LVAs ap2: 11.9 cm2 LVLs ap4: 5.6 cm LVLs ap2: 5.4 cm ESV(MOD-sp4): 23.7 ml ESV(MOD-sp2): 22.0 ml ESV(sp4-el): 22.5 ml ESV(sp2-el): 22.4 ml EF(MOD-sp4): 62.4 % EF(MOD-sp2): 58.5 % EF(sp4-el): 65.1 % SV(MOD-sp4): 39.4 ml SV(MOD-sp2): 31.1 ml SV(sp4-el): 42.0 ml LA A4 area: 16.0 cm2 LA dimension(2D): 3.3 cm RA A4 area: 11.4 cm2 TAPSE: 1.7 cm Time Measurements MV dec time: 0.20 sec Doppler Measurements & Calculations MV E max michael: 58.5 cm/sec Lat Peak E' Michael: 10.3 cm/sec Med Peak E' Michael: 9.1 cm/sec MV A max michael: 77.5 cm/sec E/E' lat: 5.7 E/E' med: 6.4 MV E/A: 0.76 Ao V2 max: 138.5 cm/sec LV V1 max: 112.9 cm/sec MV dec slope: 294.3 cm/sec2 Ao max P.7 mmHg LV V1 max P.1 mmHg Ao V2 mean: 91.3 cm/sec LV V1 mean P.6 mmHg Ao mean P.8 mmHg LV V1 mean: 74.9 cm/sec Ao V2 VTI: 23.3 cm LV V1 VTI: 19.4 cm AV (velocity ratio): 0.83 PA V2 max: 134.0 cm/sec TR max michael: 218.8 cm/sec PA V2 mean: 86.2 cm/sec TR max P.2 mmHg ECHO/Echo Complete W/ Contrast Interpretation Summary Normal LV size. Left ventricular systolic function is normal. The estimated ejection fraction is 65 %. Stage 1 diastolic dysfunction. Pulmonary artery systolic pressure is 23 mmHg. Contrast injection was performed. Ordering Physician: Cristobal Olmos Referring Physician: Keisha Williamson Performed By: Ana Hawthorne RDCS
== END | disposition home or self-care (01) ==
LOC: CVS 08:41
PROVIDERS: PCP Nurse Practitioner Family; Referring Provider Internal Medicine Critical Care Medicine; Visit Provider Internal Medicine Critical Care Medicine
DX: J45.20 Mild intermittent asthma, uncomplicated (principal); M06.9 Rheumatoid arthritis, unspecified
CPT/HCPCS: 93306; Q9957; A4216; C8929

== ENCOUNTER 2023-09-14 09:12 | Outpatient (RCR) | payer MEDICAID, SELFPAY | END 2023-09-28 23:59 | LOC: NS 09:12 | PROVIDERS: PCP Family Medicine; Referring Provider Family Medicine; Visit Provider Family Medicine | DX: Z71.3 Dietary counseling and surveillance (principal); E66.9 Obesity, unspecified; E78.5 Hyperlipidemia, unspecified | CPT/HCPCS: 97803 ==

== ENCOUNTER 2023-10-05 09:48 | Outpatient (RCR) | payer MEDICAID, SELFPAY | END 2023-10-27 23:59 | LOC: NS 09:48 | PROVIDERS: PCP Family Medicine; Referring Provider Family Medicine; Visit Provider Family Medicine | DX: Z71.3 Dietary counseling and surveillance (principal); E66.9 Obesity, unspecified; E78.5 Hyperlipidemia, unspecified; Z68.41 Body mass index [BMI] 40.0-44.9, adult | CPT/HCPCS: 97803 ==

== ENCOUNTER → 2023-11-08 | Outpatient (CLI) | payer MEDICAID, SELFPAY ==
--- NOTE | 2023-11-08 15:15 | MRI_ITS ---
STUDY: MRI LEFT KNEE REASON FOR EXAM: Female, 68 years old. Pain for 4 months. TECHNIQUE: Standardized fat and water weighted pulse sequences were obtained in all 3 orthogonal planes. COMPARISON: None. FINDINGS: Normal medial meniscus. There is mild degenerative arthrosis of the medial femorotibial compartment with tiny marginal osteophyte formation and low-grade chondromalacia. There is a sprain of the MCL with interstitial and periligamentous edema. Normal distal semimembranosus, gracilis and semitendinosus tendons. There is degenerative free edge tearing of the body of the lateral meniscus with peripheral extrusion. There is degenerative arthrosis of the lateral femorotibial compartment with joint space narrowing, marginal osteophyte formation, and areas of moderate to high-grade chondromalacia. Normal proximal tibiofibular articulation. Normal lateral collateral ( fibular ) ligament. Normal popliteus tendon. Normal biceps femoris tendon. Normal anterior cruciate ligament (ACL). Normal posterior cruciate ligament (PCL). There is low-grade chondromalacia patellae. Congruent patellofemoral articulation. Normal medial and lateral patellar retinaculum. Normal quadriceps tendon. Normal patellar tendon. Normal Hoffa''s fat pad. There is a moderate volume joint effusion. There is a small popliteal cyst. There is no acute fracture. MRI/Lower Ext Joint Only (Routine) IMPRESSION: Degenerative free edge tearing of the body of the lateral meniscus with peripheral extrusion. 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 MCL sprain. Moderate joint effusion with a small popliteal cyst. Electronically Signed: Blake Howard MD at 16:03 EDT ,
--- OUTSIDE RECORDS SUMMARY | 2023-11-09 02:16 | XMS RPT_ITS | CCD ---
Author Name Unknown Address [address] [place] [address] Organization [facility] Care Team Providers Care Tenant Relations Coordinator Name Role Phone Julia Ma LPN Unavailable Unavailab Soraya Duran Unavailable Unavailable Julia Ma LPN Unavailable Unavailab emelina RichardJanet benoit DO Primary Care Provider [facility] Janet MA A Primary Care Provider [facility] Janet MA A Primary Care Provider GÉNESIS CARLTON Referring Unavailable JANET RAMOS Primary Care Unavailable GÉNESIS CARLTON Attending Unavailable JANET RAMOS Primary Care Unavailable Allergies Allergy Classification Reported Allergen(s) Allergy Type Date of Onset Reaction(s) Facility (6 sources) acetaminophen / oxyCODONE drug allergy 05-01-20 14 Break out in hives and itch. [facility] Work Phone: (3 sources) Bee/Wasp/Ant venom; 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: [BEE STINGS] allergy to substance 03-27-20 14 Anaphylaxis [facility] Work Phone: (6 sources) Corticosteroids drug allergy 05-01-20 14 Swelling and hives [facility] Work Phone: (3 sources) meloxicam drug allergy 02-06-20 15 [facility] Work Phone: (3 sources) QUEtiapine drug allergy 11-26-19 15 Shaky, lightheaded, abnormal dreams [facility] Work Phone: (3 sources) traMADol drug allergy 03-27-20 14 severe itching [facility] Work Phone: (3 sources) valproate drug allergy 12-14-19 15 nighmares [facility] Work Phone: (6 sources) Acetaminophen / oxyCODONE; 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: [OXYCODONE-ACETAMIN OPHEN] Drug Allergy 01-10-20 09 Itching [facility] (6 sources) meloxicam; 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: [MELOXICAM] Drug Allergy 12-11-19 08 Itching [facility] (6 sources) Pentazocine; 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: [PENTAZOCINE LACTATE] Drug Allergy 02-17-20 06 [facility] Work Phone: (6 sources) predniSONE; 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: [PREDNISONE] Drug Allergy 12-12-19 09 [facility] (6 sources) Shellfish; 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: [SHELLFISH] Propensity to adverse reactions 02-17-20 06 [facility] Work Phone: (6 sources) traMADol; 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: [TRAMADOL HCL] Drug Allergy 03-06-20 14 Rash, Itching [facility] (6 sources) Bee Sting; 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: [BEE STING] Allergy to substance 03-27-20 14 Anaphylaxis [facility] (6 sources) Bees; 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: [BEES] Propensity to adverse reactions 05-10-20 07 Anaphylaxis [facility] Work Phone: (4 sources) Glucocorticoid preparation; 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: [CORTICOSTEROIDS (GLUCOCORTICOIDS)] Drug Allergy 05-01-20 14 Hives, Swelling [facility] (4 sources) oxyCODONE; 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: [OXYCODONE] Drug Allergy 08-02-20 18 Rash [facility] (4 sources) QUEtiapine; 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: [QUETIAPINE] Drug Allergy 11-26-19 15 Mental Status Change [facility] (4 sources) Valproate; 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: [VALPROIC ACID] Drug Allergy 12-14-19 15 Mental Status Change [facility] (1 source) Bee pollen; 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: [BEE POLLEN] Propensity to adverse reactions to drug (disorder) 03-27-20 14 [facility] [place] [facility] (1 source) Shellfish; 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: [SHELLFISH DERIVED] Propensity to adverse reactions to drug (disorder) 02-17-20 [facility] Medications Completed/Discontinued Medications Medication Drug Class(es) Dates Sig (Normalized) Sig (Original) acetaminophen 325 mg / HYDROcodone bitartrate 5 mg oral tablet (11 sources) Opioid Agonist take 1 tablet by mikal th every eight hours as needed HYDROcodone-acetami nophen (NORCO) 5-325 mg per tablet Take 1 tablet by mouth every 8 hours as needed. 0 Active Problems Active Problems Problem Classification Problem Date Documented Date Episodic/Chronic Acquired foot deformities (5 sources) Acquired hallux malleus; 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: [Other hammer toe(s) (acquired), unspecified foot] Onset: 01-09-2009 01-09-2009 Chronic Acute and unspecified renal failure (6 sources) Renal failure syndrome; 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: [Disorder of kidney and ureter, unspecified] Onset: 05-29-2014 Resolved: 09-02-2014 05-29-2014 Chronic Anxiety disorders (8 sources) Anxiety disorder; 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: [Obsessive-compulsive disorder] Onset: 08-06-2013 12-25-2014 Chronic Aortic; peripheral; and visceral artery aneurysms (3 sources) Thoracic aortic aneurysm, without rupture; 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: [Thoracic aortic aneurysm, without rupture] Onset: 04-17-2014 04-17-2014 Chronic Asthma (17 sources) Asthma; 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: [Exacerbation of asthma] Onset: 03-27-2014 Resolved: 11-22-2014 03-27-2014 Chronic Cardiac dysrhythmias (3 sources) Atrial paroxysmal tachycardia; 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: [Supraventricular tachycardia] Onset: 04-17-2014 04-17-2014 Chronic Diseases of mouth; excluding dental (3 sources) Xerostomia; 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: [Dry mouth, unspecified] Onset: 04-22-2023 Episodic Disorders of lipid metabolism (8 sources) Hyperlipidemia; 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: [Hyperlipidemia, unspecified] Onset: 09-26-2013 03-27-2014 Chronic Esophageal disorders (8 sources) Gastroesophageal reflux disease; 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: [Gastro-esophageal reflux disease without esophagitis] Onset: 03-27-2014 03-27-2014 Chronic Essential hypertension (8 sources) Hypertensive disorder; 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: [Benign essential hypertension] Onset: 03-27-2014 03-27-2014 Chronic Hypertension with complications and secondary hypertension (5 sources) Benign hypertensive heart AND renal disease; 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: [Hypertensive heart and renal disease, benign] 07-07-2005 Chronic Miscellaneous mental health disorders (3 sources) Nightmares; 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: [Nightmare disorder] Onset: 04-16-2016 04-16-2016 Chronic Mood disorders (14 sources) Depressive disorder; 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: [Bipolar disorder] Onset: 03-27-2014 Resolved: 11-22-2014 03-27-2014 Chronic Osteoarthritis (3 sources) Osteoarthritis of left knee joint; 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: [Unilateral primary osteoarthritis, left knee] Onset: 04-22-2023 Chronic Other congenital anomalies (5 sources) Porokeratosis; 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: [Other specified congenital malformations of skin] Onset: 12-28-2010 12-28-2010 Chronic Other liver diseases (3 sources) Inflammatory disease of liver; 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: [Inflammatory liver disease, unspecified] Onset: 11-14-2015 11-14-2015 Chronic Other nutritional; endocrine; and metabolic disorders (15 sources) Body mass index (BMI) 40.0-44.9, adult; 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: [Body mass index (BMI) 39.0-39.9, adult] Onset: 03-27-2014 Resolved: 05-16-2015 04-18-2014 Chronic Other nutritional; endocrine; and metabolic disorders (4 sources) Morbid obesity; 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: [Morbid (severe) obesity due to excess calories] Onset: 03-27-2014 Resolved: 05-16-2015 03-27-2014 Chronic Other nutritional; endocrine; and metabolic disorders (2 sources) Obesity; 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: [Obesity, unspecified] Onset: 05-16-2015 05-16-2015 Chronic Other nutritional; endocrine; and metabolic disorders (5 sources) Body mass index 30+ - obesity; 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: [Obesity, unspecified] Onset: 03-26-2014 08-24-2021 Chronic Other screening for suspected conditions (not mental disorders or infectious disease) (5 sources) Other specified abnormal findings of blood chemistry; 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: [Other abnormal blood chemistry] 04-21-2016 Episodic Personality disorders (3 sources) Obsessive compulsive personality disorder; 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] Onset: 03-27-2014 03-27-2014 Chronic Screening and history of mental health and substance abuse codes (3 sources) Tobacco use and exposure - finding; 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: [Personal history of nicotine dependence] Onset: 06-19-2014 06-19-2014 Chronic Systemic lupus erythematosus and connective tissue disorders (4 sources) Sjogren's syndrome; 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: [Sicca syndrome, unspecified] Onset: 04-22-2023 Chronic Unclassified (1 source) Screening for malignant neoplasm of breast ; 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: [Other specified health status] Onset: 06-17-2014 06-17-2014 Unclassified (1 source) Screening for malignant neoplasm of colon ; 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: [Encounter for screening for malignant neoplasm of colon] Onset: 05-31-2016 05-31-2016 Unclassified (6 sources) Long-term drug therapy; 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: [Long-term (current) use of other medications] Onset: 10-17-2014 Resolved: 04-17-2015 10-17-2014 Past or Other Problems Problem Classification Problem Date Documented Da te Episodic/Chronic Abdominal pain (20 sources) Flank pain; 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: [Right upper quadrant pain] Onset: 03-26-2014 Resolved: 12-05-2015 05-01-2014 Episodic Acquired foot deformities (5 sources) Acquired cavus deformity of foot; 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: [Other acquired deformities of unspecified foot] Onset: 01-09-2009 01-09-2009 Episodic Calculus of urinary tract (8 sources) Kidney stone; 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: [Calculus of kidney] Onset: 05-06-2014 05-06-2014 Episodic Coagulation and hemorrhagic disorders (3 sources) Spontaneous ecchymoses; 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: [Spontaneous ecchymoses] Onset: 11-14-2015 Resolved: 11-24-2015 11-14-2015 Episodic Complication of device; implant or graft (5 sources) Complication of medical care; 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: [Erosion of other implanted mesh to organ or tissue, initial encounter] Onset: 07-01-2014 07-01-2014 Episodic Conditions associated with dizziness or vertigo (3 sources) Lightheadedness; 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: [Dizziness and giddiness] Onset: 01-30-2015 01-30-2015 Episodic Fluid and electrolyte disorders (11 sources) Hyponatremia; 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: [Hypokalemia] Onset: 04-17-2013 Resolved: 09-02-2014 05-29-2014 Episodic Genitourinary symptoms and ill-defined conditions (3 sources) Dysuria; 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: [Dysuria] Onset: 03-27-2014 Resolved: 04-03-2014 03-27-2014 Episodic Malaise and fatigue (3 sources) Fatigue; 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: [Other fatigue] Onset: 11-14-2015 Resolved: 11-24-2015 11-14-2015 Episodic Nausea and vomiting (3 sources) Nausea; 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: [Nausea] Onset: 11-14-2015 Resolved: 11-24-2015 11-14-2015 Episodic Nonspecific chest pain (3 sources) Chest pain; 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: [Chest pain, unspecified] Onset: 03-27-2014 03-27-2014 Episodic Other aftercare (3 sources) Long-term (current) use of other medications; 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: [Other retirement (current) drug therapy] Onset: 10-17-2014 Resolved: 04-17-2015 10-17-2014 Episodic Other bone disease and musculoskeletal deformities (6 sources) Segmental and somatic dysfunction; 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: [Segmental and somatic dysfunction of cervical region] Onset: 07-05-2016 07-05-2016 Episodic Other bone disease and musculoskeletal deformities (5 sources) Exostosis; 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: [Other specified disorders of bone, unspecified site] Onset: 02-19-2010 02-19-2010 Episodic Other connective tissue disease (3 sources) Hand pain; 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: [Pain in left hand] Onset: 11-19-2015 Resolved: 11-21-2015 11-19-2015 Episodic Other connective tissue disease (5 sources) Residual foreign body in soft tissue; 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: [Residual foreign body in soft tissue] Onset: 07-14-2005 07-14-2005 Episodic Other connective tissue disease (5 sources) Calcaneal spur; 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: [Calcaneal spur, unspecified foot] Onset: 12-11-2007 12-11-2007 Episodic Other connective tissue disease (5 sources) Disorder of Achilles tendon; 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: [Achilles tendinitis, unspecified leg] Onset: 12-11-2007 12-11-2007 Episodic Other connective tissue disease (5 sources) Pain in limb; 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: [Pain in unspecified limb] Onset: 02-04-2009 02-04-2009 Episodic Other connective tissue disease (5 sources) Tendinitis; 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: [Enthesopathy, unspecified] Onset: 01-13-2011 01-13-2011 Episodic Other connective tissue disease (5 sources) Capsulitis; 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: [Enthesopathy, unspecified] Onset: 02-15-2011 02-15-2011 Episodic Other eye disorders (5 sources) Wilmer's syndrome; 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] Onset: 12-31-2008 12-31-2008 Episodic Other injuries and conditions due to external causes (5 sources) Hematoma; 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: [Other injury of unspecified body region, initial encounter] Onset: 02-19-2010 02-19-2010 Episodic Other lower respiratory disease (3 sources) Cough; 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: [Cough] Onset: 06-04-2014 Resolved: 06-06-2014 06-04-2014 Episodic Other nervous system disorders (5 sources) Abnormal gait; 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: [Unspecified abnormalities of gait and mobility] Onset: 05-17-2011 05-17-2011 Episodic Other non-traumatic joint disorders (5 sources) Ankle pain; 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: [Pain in wrist] Onset: 11-17-2015 Resolved: 11-24-2015 11-18-2015 Episodic Other non-traumatic joint disorders (4 sources) Pain in wrist; 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: [Pain in unspecified wrist] Resolved: 05-14-2014 09-13-2013 Episodic Other nutritional; endocrine; and metabolic disorders (5 sources) Loss of appetite; 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: [FH: Hypertension] Onset: 01-30-2015 Resolved: 11-22-2014 01-30-2015 Episodic Other upper respiratory disease (3 sources) Nasal discharge; 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: [Other specified disorders of nose and nasal sinuses] Onset: 05-27-2016 05-27-2016 Episodic Other upper respiratory infections (12 sources) Acute sinusitis; 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: [Viral upper respiratory tract infection] Onset: 05-20-2014 Resolved: 11-22-2014 05-20-2014 Episodic Otitis media and related conditions (6 sources) Dysfunction of eustachian tube; 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: [Acute otitis media] Onset: 04-16-2016 04-16-2016 Episodic Pneumonia (except that caused by tuberculosis or sexually transmitted disease) (3 sources) Pneumonia; 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: [Pneumonia, unspecified organism] Onset: 06-11-2014 Resolved: 06-25-2014 06-11-2014 Episodic Poisoning by nonmedicinal substances (5 sources) Allergic reaction to bee sting; 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: [Toxic effect of venom of bees, accidental (unintentional), initial encounter] Onset: 12-09-2010 12-09-2010 Episodic Residual codes; unclassified (4 sources) FH: Hypertension; 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: [Family history of ischemic heart disease and other diseases of the circulatory system] Resolved: 11-22-2014 11-22-2014 Episodic Residual codes; unclassified (5 sources) Insomnia; 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: [Insomnia, unspecified] Onset: 08-06-2013 08-06-2013 Episodic Skin and subcutaneous tissue infections (16 sources) Cellulitis of hand; 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: [Disorder of nail] Onset: 05-12-2007 Resolved: 05-14-2014 05-14-2014 Episodic Spondylosis; intervertebral disc disorders; other back problems (8 sources) Spinal stenosis of lumbar region; 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: [Lumbosacral radiculopathy] Onset: 10-02-2012 03-27-2014 Episodic Sprains and strains (14 sources) Strain of back muscle; 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: [Sprain of wrist] Onset: 11-02-2010 Resolved: 05-14-2014 07-05-2016 Episodic Superficial injury; contusion (6 sources) Contusion of wrist; 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: [Contusion of unspecified wrist] Resolved: 05-14-2014 03-20-2013 Episodic Urinary tract infections (15 sources) Acute cystitis; 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: [Urinary tract infectious disease] Onset: 05-01-2014 Resolved: 11-22-2014 05-20-2014 Episodic Viral infection (3 sources) Herpes simplex; 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: [Herpesviral infection, unspecified] Onset: 11-22-2014 11-22-2014 Episodic Results Test Name Value Interpretation Reference Range Facil ity Vital Signs Date Time Vital Sign Value Performing Clinician Facility 04-23-2022 11:42-0400 Body temperature 95.7 [degF] Génesis Carlton MD Work Phone: [facility] 04-23-2022 11:42-0400 Body weight 104.78 kg Génesis Carlton MD Work Phone: [facility] 04-23-2022 11:42-0400 Diastolic blood pressure 55 mm[Hg] Génesis Carlton MD Work Phone: [facility] 04-23-2022 11:42-0400 Heart rate 81 /min Génesis Carlton MD Work Phone: [facility] 04-23-2022 11:42-0400 Systolic blood pressure 112 mm[Hg] Génesis Carlton MD Work Phone: [facility] 02-17-2017 08:41-0400 BMI (Body Mass Index) 36.71 kg/m2 Soraya Milton [facility] Work Phone: 02-17-2017 08:41-0400 Body Temperature 97.6 [degF] Soraya Milton [facility] Work Phone: 02-17-2017 08:41-0400 BP Diastolic 80 mm[Hg] Soraya Yoan [facility] Work Phone: 02-17-2017 08:41-0400 BP Systolic 150 mm[Hg] Soraya Yoan [facility] Work Phone: 02-17-2017 08:41-0400 Height 158.75 cm Soraya Milton [facility] Work Phone: 02-17-2017 08:41-0400 Pulse (Heart Rate) 82 /min Soraya Milton [facility] Work Phone: 02-17-2017 08:41-0400 Pulse Oximetry 97 % Soraya Milton [facility] Work Phone: 02-17-2017 08:41-0400 Respiratory Rate 18 /min Soraya Milton [facility] Work Phone: 02-17-2017 08:41-0400 Weight 92.53 kg Soraya Milton [facility] Work Phone: 08-19-2016 08:03-0500 Body Temperature 99.14 [degF] Soraya Milton [facility] Work Phone: 08-19-2016 08:03-0500 BSA (Body Surface Area) 1.92 m2 Soraya Milton [facility] Work Phone: 08-19-2016 08:03-0500 Height 158.75 cm Soraya Milton [facility] Work Phone: 08-19-2016 08:03-0500 Weight 90 kg Soraya Milton [facility] Work Phone: 05-01-2014 10:04-0400 BP Systolic 124 mm[Hg] Soraya Milton [facility] Work Phone: 04-18-2014 13:45-0400 Heart rate 84 /min Soraya Milton [facility] Work Phone: Encounters Encounter Date Encounter Type Care Provider Facility Start: 04-22-2023 End: 04-22-2023 ambulatory GÉNESIS CARLTON Facility:[facility] Start: 04-08-2023 Telephone encounter Génesis Carlton MD Work Phone: Rheumatology Procedures Date Procedure Procedure Detail Performing Clinician Start: 05-18-2019 Adult depression screening assessment Génesis Carlton MD Work Phone: Start: 02-17-2017 End: 02-17-2017 Dietary management education, guidance, and counseling Soraya Milton Start: 07-13-2016 End: 07-13-2016 Chiropract manj 1-2 regions Dalia Blakely Juliana i DC Work Phone: Start: 07-08-2016 End: 07-08-2016 Chiropract manj 1-2 regions Dalia Blakely Juliana i DC Work Phone: Start: 07-05-2016 End: 07-05-2016 Chiropractic manipulation Dalia Blakely Dossi DC Work Phone: Start: 05-31-2016 Screening for malignant neoplasm of colon Screening, colon ca Soraya Milton Start: 03-02-2016 End: 03-02-2016 *BMP Chiquis Palacios PA-C Work Phone: Start: 02-12-2016 End: 08-17-2016 Follow Up Appt 3 months Angélica lima CNP Work Phone: Start: 12-18-2015 End: 12-18-2015 *Hepatic Function Panel Jani Mckeon MD Start: 12-10-2015 End: 12-18-2015 Gamma glutamyl transferase Janet A Stutzm an DO Work Phone: Start: 11-14-2015 End: 11-21-2015 *FLAKITA Janet Ramos DO Work Phone: Start: 11-14-2015 End: 11-14-2015 *CBC with Differential Janet Ramos D O Work Phone: Start: 11-14-2015 End: 11-16-2015 *CMP Complete Metabolic Panel Janet Ramos DO Work Phone: Start: 11-14-2015 End: 11-17-2015 Alpha 1 antitrypsin [Mass/volume] in Serum or Plasma Janet Ramos DO Work Phone: Start: 11-14-2015 End: 11-14-2015 C reactive protein (hsCRP) Janet barney DO Work Phone: Start: 11-14-2015 End: 11-17-2015 Ceruloplasmin [Mass/volume] in Serum or Plasma Janet Ramos DO Work Phone: Start: 11-14-2015 End: 11-14-2015 Coagulation factor induced.INR assay in platelet poor plasma Janet Ramos DO Work Phone: Start: 11-14-2015 End: 11-14-2015 Erythrocyte sedimentation rate Janet Ramos DO Work Phone: Start: 11-14-2015 End: 11-16-2015 Ferritin Janet Ramos DO Work Phone: Start: 11-14-2015 End: 11-17-2015 Hepatitis A virus Ab [Presence] in Serum Janet Ramos DO Work Phone: Start: 11-14-2015 End: 11-17-2015 Hepatitis B virus core Ab [Presence] in Serum Janet Reynolds Richard DO Work Phone: Start: 11-14-2015 End: 11-18-2015 Mitochondria Ab [Presence] in Serum Janet Reynolds Richard DO Work Phone: Start: 11-14-2015 End: 11-18-2015 Smooth muscle Ab [Presence] in Serum Janet Ramos DO Work Phone: Start: 11-14-2015 End: 11-17-2015 Transferrin Janet Ramos DO Work Phone: Start: 10-16-2015 End: 10-16-2015 *Hepatic Function Panel Jani Mckeon MD Start: 10-16-2015 End: 10-16-2015 Lipid panel [AGGREGATE] Jani Mckeon MD Start: 08-05-2015 End: 08-17-2016 [facility] Cristobal Olmos Work Phone: Start: 08-05-2015 End: 08-17-2016 Follow Up Appt 6 months Cristobal Olmos Work Phone: Start: 04-15-2015 End: 04-15-2015 *Hepatic Function Panel Jani Mckeon MD Start: 04-15-2015 End: 04-15-2015 Lipid panel [AGGREGATE] Jani Mckeon MD Start: 02-11-2015 End: 02-11-2015 Urinalysis Soraya Milton Start: 02-11-2015 End: 02-12-2015 *CBC with Differential Janet Majano Work Phone: Start: 02-11-2015 End: 02-12-2015 *CMP Complete Metabolic Panel Janet Ramos DO Work Phone: Start: 02-11-2015 End: 02-12-2015 Urinalysis complete panel - Urine Janet Ramos DO Work Phone: Start: 02-05-2015 End: 02-05-2015 Documentation of current medications Cristobal Olmos Work Phone: Start: 02-05-2015 End: 08-17-2016 Follow Up Appt 6 months Cristobal Olmos Work Phone: Start: 11-07-2014 End: 11-08-2014 Documentation of current medications Cristobal Olmos Work Phone: Start: 11-07-2014 End: 08-17-2016 Follow Up Appt 3 months Cristobal Olmos Work Phone: Start: 10-16-2014 End: 10-16-2014 *Hepatic Function Panel Jani Mckeon MD Start: 10-16-2014 End: 10-16-2014 Lipid panel [AGGREGATE] Jani Mckeon MD Start: 07-08-2014 End: 08-17-2016 Lipid panel [AGGREGATE] Cristobal Olmos Work Phone: Start: 06-19-2014 End: 08-17-2016 Follow Up Appt 3 months Cristobal Olmos Work Phone: Start: 06-19-2014 End: 08-17-2016 Pulmonary Fuction Test - complete Cristobal Olmos Work Phone: Start: 06-17-2014 Screening for malignant neoplasm of breast Screening for breast cancer Soraya Milton Start: 06-11-2014 End: 06-12-2014 *CBC with Differential Janet Reynolds Richard Cantu O Work Phone: Start: 06-11-2014 End: 06-12-2014 *CMP Complete Metabolic Panel Janet Ramos DO Work Phone: Start: 05-30-2014 End: 05-30-2014 Follow Up Appt Other Chiquis kahn PA-C Work Phone: Start: 05-20-2014 End: 05-20-2014 Urinalysis Soraya Milton Start: 05-20-2014 End: 05-21-2014 Follow-up visit Janet Gail Richard DO Work Phone: Start: 05-20-2014 End: 05-23-2014 Urine culture, bacteria Janet Gail Richard MA Work Phone: Start: 04-18-2014 End: 04-24-2014 *BMP Jani Mckeon MD Start: 04-18-2014 End: 04-24-2014 *Hepatic Function Panel Jani Mckeon MD Start: 04-18-2014 End: 04-24-2014 CBC W Auto Differential panel - Blood Jani Mckeon MD Start: 04-18-2014 End: 05-21-2014 Chest x-ray Jani Mckeon MD Start: 04-18-2014 End: 05-21-2014 Echocardiography Jani Mckeon MD Start: 04-18-2014 End: 04-18-2014 Electrocardiogram, complete Jani melendez MD Start: 04-18-2014 End: 04-18-2014 Follow Up Appt 6 weeks Jani Mckeon MD Start: 04-18-2014 End: 04-24-2014 Lipid panel [AGGREGATE] Jani Mckeon MD Start: 04-18-2014 End: 04-18-2014 MMM aJni Mckeon MD Start: 04-18-2014 End: 05-21-2014 Nuclear stress test -Lexiscan Jani Mckeon MD Start: 04-18-2014 End: 04-23-2014 Thyroid stimulating hormone (TSH) Jani Mckeon MD Start: 04-18-2014 End: 04-24-2014 Thyroxine (T4) Jani Mckeon MD Start: 09-17-2013 End: 04-25-2014 *CBC with Differential Domenica Hedrick MD Start: 05-29-2013 Mammography Génesis Carlton MD Work Phone: Start: 06-06-2006 Colonoscopy Génesis Carlton MD Work Phone: Plan of Treatment Date Care Activity Detail Author Start: 03-07-2029 Urine microalbumin profile DTAP,TDAP,TD (3 - Td or Tdap) [facility] Start: 04-08-2025 DIABETES SCREEN DIABETES SCREEN [facility] Start: 11-18-2024 LIPID SCREEN LIPID SCREEN [facility] Start: 11-22-2023 DIABETES SCREEN DIABETES SCREEN [facility] Start: 04-29-2023 Influenza vaccination INFLUENZA (#1) [facility] Start: 04-23-2023 BP CONTROLLED (<130/80) BP CONTROLLED (<130/80) [facility] Start: 04-08-2023 End: 06-08-2023 25-hydroxyvitamin D3 [Mass/volume] in Serum or Plasma VITAMIN D 25 HYDROXY Lab Routine Sjogren's syndrome, with unspecified organ involvement (HCC) Dry mouth Primary osteoarthritis of left knee Expected: 04/08/2023 (Approximate), Expires: 06/08/2023 [facility] Work Phone: Immunizations Immunization Date Immunization Notes Care Provider Amadeo robert 03-07-2019 tetanus toxoid, redu martin diphtheria toxoid, and acellular pertussis vaccine, adsorbed Génesis Carlton MD Work Phone: [facility] 05-25-2017 influenza, seasonal, injectable Génesis Carlton MD Work Phone: [facility] 05-25-2017 influenza, seasonal, injectable, preservative free Génesis Carlton MD Work Phone: [facility] 05-27-2016 influenza, seasonal, injectable Génesis Carlton MD Work Phone: [facility] 05-27-2016 influenza, seasonal, injectable, preservative free Génesis Carlton MD Work Phone: [facility] 06-03-2015 influenza, seasonal, injectable Génesis Carlton MD Work Phone: [facility] 06-03-2015 influenza, seasonal, injectable, preservative free Génesis Carlton MD Work Phone: [facility] 08-15-2014 influenza, seasonal, injectable Génesis Carlton MD Work Phone: [facility] 08-15-2014 influenza, seasonal, injectable, preservative free Génesis Carlton MD Work Phone: [facility] 07-29-2014 influenza, seasonal, injectable, preservative free Génesis Carlton MD Work Phone: [facility] 09-06-2013 influenza, seasonal, injectable Génesis Carlton MD Work Phone: [facility] 09-06-2013 influenza, seasonal, injectable, preservative free Génesis Carlton MD Work Phone: [facility] 05-17-2013 pneumococcal polysaccharide vaccine, 23 valent Génesis Carlton MD Work Phone: [facility] 04-30-2009 influenza virus vacc ine, unspecified formulation Génesis Carlton MD Work Phone: [facility] Work Phone: 01-29-2008 tetanus toxoid, redu martin diphtheria toxoid, and acellular pertussis vaccine, adsorbed Génesis Carlton MD Work Phone: [facility] Work Phone: Payers Date Payer Category Payer Medicaid [id number] 2008 Medicaid [facility] MEDICAID [id number] 2008-Present [phone] [address] [place] [address] Medicaid [id number] 2008 Medicaid [id number] Social History Date Type Detail Facility Start: 02-04-2009 End: 04-23-2022 Tobacco smoking status NHIS Ex-smoker [facility] End: 03-29-1983 History of tobacco use Current smoker [facility] End: 03-29-1983 History of tobacco use Cigarette Smoker [facility] Start: 11-21-2020 End: 04-23-2022 Alcohol intake Current non-drinker of alcohol (finding) [facility] Start: 1955 Sex Assigned At Not on file C [facility] Start: 02-04-2009 End: 09-24-2022 Cigarettes smoked current (pack per day) - Reported 4 [facility] Start: 02-04-2009 End: 04-23-2022 Tobacco use and exposure Smokeless tobacco non-user [facility] Work Phone: Start: 04-13-2022 End: 04-23-2022 Exposure to SARS-CoV-2 (event) Not sure [facility] Start: 04-23-2022 End: 09-24-2022 Tobacco use panel [facility] Adult Depression Screening Assessment 2 [facility] Medical Equipment Procedure Code Equipment Code Equipment Origin al Text Equipment Identifier Dates [id number] Implant - [id number] Start: 12-15-2011 Progress note 04-22-2023 Note Date & Type Note Facility 04-22-2023 Note HNO ID: [id number] Author: Génesis Carlton MD Service: ? Author Type: Physician Type: Progress Notes Filed: 04/24/2023 2:47 PM Note Text: RHEUMATOLOGY CLINIC Follow-up: Sjogren's syndrome +FLAKITA (1:1280 and +SSA), +RF - dry mouth, fatigue, polyarthralgia Last visit: 04/23/2022 (with Génesis Carlton) CHIEF COMPLAINT: Dryness of her mouth doesn't bother her too much. She is able to eat anything she wants. She doesn't feel that she has dryness of her eyes. She continues to have persistent cough but does see a supervisor cooler service regularly for PFT's and an underlying diagnosis of asthma. Today she is complaining of flank pain on the right side which she says has been going on for at least a year. Started out as an annoying pain but has worsened over the last 6 months. Her GB has been removed. She thinks that stress and overdoing it aggravate the pain. She takes jennifer back and body which does help, but [...] unintentional weight loss or fevers and chills. November 10, 2018 she has restarted the hydroxychloroquine. She reports feeling exhausted all the time. She doesn't sleep well at night. No weight loss. No fevers or chills. May 18, 2019 she is still on hydroxychloroquine. Overall she says she is feeling better. She feels that the hydroxychloroquine helps with her pain. 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 She tolerates the medicine ok. No fevers, chills, or weight loss. November 16, 2019 on today's phone encounter she complains of LUQ pain. Pain is new within the last month. describes pain has sharp and burning. Denies weight loss. Otherwise she denies fevers, chills, night sweats. She has no palpable lymph nodes. Tolerating the hydroxychloroquine. May 23, 2020 she doesn't feel that the plaquenil has helped with any joint pain nor her mouth dryness. She has gained 20 lb. She denies fevers, chills, night sweats, LAD, or unintentional weight loss. November 21, 2020 she restarted the plaquenil a couple months ago but still feels it hasn't helped she has chronic LBP and is having ANTOINE's done later. She has not had any changes in her rheumatic complaints. April 23, 2022 complains of left knee pain. Had an injection end of February. Also recalls taking some steroids around that time. Said it was excruciating pain but the shot really helped. But said it was for just a short term. Also having pain in neck, L shouder, left knee. The oral steroid she said only helped a little bit, nothing I like to be on She has started physical therapy, hasn't seen a surgeon She is trying to lose weight so she can have surgery. April 22, 2023 she has left knee osteoarthritis. She had an injection from her PCP a couple of weeks ago. Admits it did help. XR shows moderate to severe knee osteoarthritis. She is trying to lose weight. She hasn't had any new medical problems or medical concerns. RHEUMATOLOGIC REVIEW OF SYSTEMS: no ulcers in [...] morning stiffness + weight loss + neuropathy CONSTITUTIONAL: Fatigue EYES: Pain EAR, NOSE, MOUTH, THROAT: Swallowing problems, Dry mouth CARDIOVASCULAR: Swelling in the feet or legs RESPIRATORY: Shortness of breath GASTROINTESTINAL: Heartburn, Abdominal pain MUSCULOSKELETAL: Joint pain, Joint swelling, Morning stiffness in joints, Back pain SKIN: Hair loss, Nail changes NEUROLOGIC: Headaches, Dizziness, Numbness or tingling KNOWN MEDICAL CONDITIONS: High blood pressure REVIEW OF SYSTEMS: CONSTITUTIONAL: Fever: No Fatigue: Yes Pain: Yes EYES: Pain: Yes Redness: No Loss of vision: No Dryness: No EAR, NOSE, MOUTH, THROAT: Nose bleeds: No Hearing loss: No Sores in mouth: No Swallowing p (more content not included)... [facility] Note 04-11-2023 Telephone Encounter - Carolyne Tinajero RN - 04/11/2023 8:23 AM EDTTelephone Encounter - Carolyne Tinajero RN - 03/25/2023 8:40 AM EDTTelephone Encounter - Armen Verma - 03/24/2023 12:29 PM EDT Note Date & Type Note Facility 04-11-2023 Miscellaneous Notes Formattin g of this note might be different from the original. Call placed to [facility], spoke with patient advising lab orders had been placed. Patient had no further questions. Carolyne Tinajero RN Call placed to [facility], message left advising Dr. Carlton will be back next week and address orders at that time. Carolyne Tinajero RN let her know dr carlton is out of the office until early March. She should message back in two weeks to see what she prefers. kaur john m.d. Lab orders pended. Carolyne Tinajero RN [facility] is calling Génesis Carlton MD today with concern regarding wanting to have an order/appointment for her labs so that she may have labs first then have her appointment with Dr. Carlton. She is concerned about the excess wait involved. No chief complaint on file. Patient has been identified by name and birthdate. Duration of symptoms: N/A Person calling: self Call patient at: at home [phone] (home) [phone] (cell) Was an appointment scheduled: No Closing statement: Symptom Call: Thank you for calling [facility], your call is very important. A nurse will call in approximately 2-4 hours during business hours. If this is an emergency, please contact 911. Armen Verma documented in this encounter [facility] Note 04-08-2023 Telephone Encounter - Sheyla Ragsdale - 04/08/2023 10:16 AM EDTTelephone Encounter - Christine Garza - 04/08/2023 9:12 AM EDT Note Date & Type Note Facility 04-08-2023 Miscellaneous Notes Formattin g of this note might be different from the original. Duplicate, please see te from 03/24/2023. Sheyla Ragsdale [facility] is calling Génesis Carlton MD today Orders Patient has been identified by name and birthdate. Patient calling asking that orders for lab work be placed so she can have labs done before appointment. Duration of symptoms: N/A Person calling: self Call patient at: at home [phone] (home) [phone] (cell) Was an appointment scheduled: No Closing statement: Results or non-symptom based questions: Thank you for calling [facility], your call will be returned within the next business day. Christine Garza documented in this encounter [facility] Instructions 04-23-2022 Patient Instructions Note Date & Type Note Facility 04-23-2022 Instructions Génesis Carlton MD - 04/23/2022 12:08 PM EDT Diclofenac GEL take 2-3 times daily. Will send this to your pharmacy Tylenol extra strength - take 2 capsules three times daily (total of 6 tablets daily) documented in this encounter [facility] History of Present illness Narrative 04-23-2022 Génesis Carlton MD - 04/23/2022 11:34 AM EDT Note Date & Type Note Facility 04-23-2022 History of Presen t illness Narrative Images from the original note were not included. RHEUMATOLOGY CLINIC April 23, 2022 Follow-up: Sjogren's syndrome +FLAKITA (1:1280 and +SSA), +RF - dry mouth, fatigue, polyarthralgia Last visit: November 21, 2020 CHIEF COMPLAINT: Dryness of her mouth doesn't bother her too much. She is able to eat anything she wants. She doesn't feel that she has dryness of her eyes. She continues to have persistent cough but does see a supervisor cooler service regularly for PFT's and an underlying diagnosis of asthma. Today she is complaining of flank pain on the right side which she says has been going on for at least a year. Started out as an annoying pain but has worsened over the last 6 months. Her GB has been removed. She thinks that stress and overdoing it aggravate the pain. She takes jnenifer back and body which does help, but [...] unintentional weight loss or fevers and chills. November 10, 2018 she has restarted the hydroxychloroquine. She reports feeling exhausted all the time. She doesn't sleep well at night. No weight loss. No fevers or chills. May 18, 2019 she is still on hydroxychloroquine. Overall she says she is feeling better. She feels that the hydroxychloroquine helps with her pain. 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 She tolerates the medicine ok. No fevers, chills, or weight loss. November 16, 2019 on today's phone encounter she complains of LUQ pain. Pain is new within the last month. describes pain has sharp and burning. Denies weight loss. Otherwise she denies fevers, chills, night sweats. She has no palpable lymph nodes. Tolerating the hydroxychloroquine. May 23, 2020 she doesn't feel that the plaquenil has helped with any joint pain nor her mouth dryness. She has gained 20 lb. She denies fevers, chills, night sweats, LAD, or unintentional weight loss. November 21, 2020 she restarted the plaquenil a couple months ago but still feels it hasn't helped she has chronic LBP and is having ANTOINE's done later. She has not had any changes in her rheumatic complaints. April 23, 2022 complains of left knee pain. Had an injection end of February. Also recalls taking some steroids around that time. Said it was excruciating pain but the shot really helped. But said it was for just a short term. Also having pain in neck, L brendanuder, left knee. The oral steroid she said only helped a little bit, nothing I like to be on She has started physical therapy, hasn't seen a surgeon She is trying to lose weight so she can have surgery. RHEUMATOLOGIC REVIEW OF SYSTEMS: no ulcers in [...] morning stiffness + weight loss + neuropathy CONSTITUTIONAL: Fatigue EYES: Pain EAR, NOSE, MOUTH, THROAT: Swallowing problems, Dry mouth CARDIOVASCULAR: Swelling in the feet or legs RESPIRATORY: Shortness of breath GASTROINTESTINAL: Heartburn, Abdominal pain MUSCULOSKELETAL: Joint pain, Joint swelling, Morning stiffness in joints, Back pain SKIN: Hair loss, Nail changes NEUROLOGIC: Headaches, Dizziness, Numbness or tingling KNOWN MEDICAL CONDITIONS: High blood pressure REVIEW OF SYSTEMS: CONSTITUTIONAL: Fever: No Fatigue: Yes Pain: Yes EYES: Pain: Yes Redness: No Loss of vision: No Dryness: No EAR, NOSE, MOUTH, THROAT: Nose bleeds: No Hearing loss: No Sores in mouth: No Swallowing problems: Yes Dry mouth: Yes CARDIOVASCULAR: Chest pain: No Swelling in the feet or legs: Yes RESPIRATORY: Shortness of breath: Yes Pain with breathing: No Chronic cough: No Coughing up blood: No , GASTROINTESTINAL: Heartburn: Yes Nausea: No Diarrhea: No Blood in the stool or black stool: No Abdominal pain: Yes GENITOURINARY: Blood in urine: No Pain or burning on urination: No] MUSCULOSKELETAL: Joint pain: Yes Joint swelling: Yes Morning stiffness in joints: Yes Muscle weakness: No Back pain: Yes SKIN: Rashes: No Sun sensitive rashes: No Color changes of hands or feet in the cold: No Hair loss: Yes Nail changes: Yes NEUROLOGICAL: Headaches: Yes Dizziness: Yes Numbness or tingling: Yes Memory loss: No Seizures: No HEMATOLOGIC/LYMPHATIC: Swollen glands: No Anemia: No ALLERGIES/IMMUNOLOGIC: Allergies (other than medications): No Increased susceptibility to infection: No KNOWN MEDICAL CONDITIONS: Diabetes: No Thyroid disease: No High blood pressure: Yes Reviewed 04/23/2022 and above documentation is unchanged from previous visit RAPID 3: DISEASE ACTIVITY: Weighed Score Levels: 0 - 1: Near Remission 1.3 - 2.0: Low Severity 2.3 - 4.0: Moderate Severity 4.3 - 10.0: High Severity RAPID-3 Weighed Score 05/18/2019 RAPID 3 Weighed Score 5.8 PAST MEDICAL HISTORY: PAST MEDICAL HISTORY Diagnosis Date Adjustment disorder with depressed mood Bipolar disorder, unspecified ([facility]) Depression seeing counselor 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 Thomas PTSD (post-traumatic stress disorder) seeing counselor Sjogren syndrome ([facility]) Unspecified asthma(493.90) Asthma Unspecified SOCIAL HISTORY: Social History Tobacco Use Smoking status: Former Packs/day: 4.00 Years: 15.00 Pack years: 60.00 Types: Cigarettes Quit date: 03/29/1983 Years since quittin.0 Smokeless tobacco: Never Substance Use Topics Alcohol use: No Drug use: No doesn't smoke or drink EtOH She is on disability since 1993 MEDICATIONS: methocarbamol (ROBAXIN) 500 mg tablet Take 1 tablet by mouth three times daily as needed (muscle cramping). methylPREDNISolone (MEDROL, DEONNA,) 4 mg Dose-Pack As Instructed per package famotidine (PEPCID ORAL) Take by mouth. fexofenadine HCl (MUCINEX ALLERGY ORAL) Take by mouth. dicyclomine (BENTYL) 10 mg capsule 20 mg. olanzapine (ZYPREXA ORAL) Take by mouth. cholecalciferol, Vitamin D3, (VITAMIN D3) 50,000 unit cap capsule Take 1 capsule by mouth once each week. BUTRANS 5 mcg/hour (Patient not taking: Reported on 11/21/2020) Ipratropium Brillion (ATROVENT) 0.03 % nasal spray triamcinolone acetonide (KENALOG) 0.1 % cream Apply 1 application to affected area twice daily. (Patient not taking: Reported on 05/12/2018 ) ketoconazole (NIZORAL) 2 % cream Apply 1 application to affected area once daily. (Patient not taking: Reported on 05/12/2018 ) amLODIPine (NORVASC) 10 mg tablet Take 10 mg by mouth once daily. benzonatate (TESSALON PERLE) 100 mg capsule Take 100 mg by mouth three times daily as needed. (Patient not taking: Reported on 11/21/2020 ) ketoconazole (NIZORAL) 2 % cream Apply 1 application to affected area once daily. (Patient not taking: Reported on 05/12/2018 ) ALL DAY ALLERGY 10 mg tablet cyclobenzaprine (FLEXERIL) 5 mg tablet (Patient not taking: Reported on 11/21/2020 ) diclofenac sodium (VOLTAREN) 1 % topical gel (Patient not taking: Reported on 11/21/2020 ) Trospium (SANCTURA SR) 60 mg cp24 Take 1 capsule by mouth once daily. Take in the morning with a full glass of water. (Patient not taking: Reported on 05/12/2018 ) flurazepam HCl (DALMANE) 15 mg capsule Take 15 mg by mouth at bedtime as needed. (Patient not taking: Reported on 11/21/2020) HYDROcodone-acetaminophen (NORCO) 5-325 mg per tablet Take 1 tablet by mouth every 8 hours as needed. (Patient not taking: Reported on 11/21/2020) hydroCHLOROthiazide (HYDRODIURIL, ESIDRIX) 12.5 mg tablet Take 25 mg by mouth once daily. omeprazole (PRILOSEC) 20 mg capsule Take 20 mg by mouth once daily. (Patient not taking: Reported on 11/21/2020 ) lisinopril (ZESTRIL, PRINIVIL) 10 mg tablet Take 10 mg by mouth once daily. potassium chloride ER (K-DUR, KLOR-CON) 20 mEq tablet Take 20 mEq by mouth twice daily. DULoxetine (CYMBALTA) 30 mg capsule Take 30 mg by mouth twice daily. NEW 11/20/20: 60 mg in AM 11/24/20: will change to different medication EPINEPHrine (EPIPEN) 0.3 mg/0.3 mL (1:1,000) atIn Inject 0.3 mg intramuscularly as needed. for bee stings. estradiol (ESTRACE) 2 mg tablet Take 2 mg by mouth once daily. (Patient not taking: Reported on 11/21/2020 ) albuterol HFA (PROAIR HFA) 90 mcg/actuation inhaler Inhale 2 Puffs as instructed as needed for Wheezing/Shortness of Breath. PHYSICAL EXAM: BP 112/55 (BP Site: Left Arm, BP Position: Sitting, BP Cuff Size: Large Adult) Pulse 81 Temp (!) 35.4 C (95.7 F) (Skin) Wt 104.8 kg (231 lb) BMI 39.40 kg/m Alert well-appearing, in no distress No conjunctivitis or scleritis Oral mucosa appears dry, there is decreased salivary pooling No cervical lymphadenopathy, no parotid enlargement Lungs are clear bilaterally nml s1, s2 no audible murmurs abd is soft and non-distended, audible bowel sounds No peripheral edema Strength exam is normal MSK: no synovitis Reviewed 04/23/2022 and above documentation is unchanged from previous visit Labs/Imaging: Component Latest Ref Rng & Units 04/21/2016 Sm Antibody <1.0 AI <0.2 INSECT CONTROL INSPECTOR Antibody <1.0 AI <0.2 SSA Antibody <1.0 AI >8.0 (H) SSB Antibody <1.0 AI <0.2 Centromere Ab <1.0 AI <0.2 Scleroderma Ab, IgG <1.0 AI <0.2 Natalya 1 Antibody <1.0 AI <0.2 Ribosomal INSECT CONTROL INSPECTOR <1.0 AI <0.2 Chromatin Antibody <1.0 AI <0.2 FLAKITA Negative Positive (A) FLAKITA Titer Negative Greater than 1:1280 (A) FLAKITA Pattern Speckled ANAP YNES Reflex Bill Billed for services performed CBC Latest Ref Rng & Units 11/10/2018 05/18/2019 11/21/2020 04/08/2022 WBC 3.70 - 11.00 k/uL 6.97 7.83 8.22 9.06 HEMOGLOBIN 11.5 - 15.5 g/dL 10.9(L) 11.3(L) 12.0 12.1 HEMOGLOBIN, JANAY 11.5 - 15.5 g/dL - - - - HEMATOCRIT 36.0 - 46.0 % 35.7(L) 36.5 37.6 39.4 PLATELETS 150 - 400 k/uL 367 377 313 349 ABS NEUT (ANC) 1.45 - 7.50 k/uL - 4.75 5.14 5.53 ABS NEUT, JANAY 1.45 - 7.50 k/uL - - - - ABS LYMP, JANAY 1.00 - 4.00 k/uL - - - - ABS LYMPH 1.00 - 4.00 k/uL - 2.30 2.24 2.80 CMP Latest Ref Rng & Units 05/18/2019 11/19/2019 11/21/2020 04/08/2022 SODIUM 136 - 144 mmol/L 139 134(L) 134(L) 137 SODIUM, JANAY 132 - 148 mmol/L - - - - SODIUM, JANAY 132 - 148 mmol/L - - - - POTASSIUM 3.7 - 5.1 mmol/L 4.6 4.7 4.6 4.9 POTASSIUM, JANAY 3.5 - 5.0 mmol/L - - - - CHLORIDE 97 - 105 mmol/L 104 99 99 102 CHLORIDE, JANAY 98 - 110 mmol/L - - - - CO2 22 - 30 mmol/L 26 24 25 21(L) CO2, JANAY 23.0 - 32.0 mmol/L - - - - GLUCOSE 74 - 99 mg/dL 57(L) 87 80 110(H) GLUCOSE (U), JANAY NEGAT mg/dL - - - - GLUCOSE, JANAY 65 - 100 mg/dL - - - - BUN 7 - 21 mg/dL 28(H) 16 22(H) 30(H) BUN, JANAY 10 - 25 mg/dL - - - - CREATININE 0.58 - 0.96 mg/dL 0.80 0.73 0.76 0.84 CREATININE, JANAY 0.7 - 1.4 mg/dL - - - - CALCIUM, JANAY 8.5 - 10.5 mg/dL - - - - CALCIUM, TOTAL 8.5 - 10.2 mg/dL 9.8 9.9 10.2 9.9 AST 13 - 35 U/L 29 20 17 14 AST, JNAAY 7 - 40 U/L - - - - ALT 7 - 38 U/L 15 10 19 14 ALT, JANAY 0 - 45 U/L - - - - ALKALINE PHOSPHATASE 34 - 123 U/L 83 85 97 114 ESR, WSR Latest Ref Rng & Units 05/18/2019 11/19/2019 11/21/2020 04/08/2022 WSR 0 - 20 mm/hr 25(H) 17 28(H) 46(H) CRP Latest Ref Rng & Units 05/18/2019 11/19/2019 11/21/2020 04/08/2022 CRP <0.9 mg/dL 1.0(H) 0.8 1.0(H) 2.5(H) C3, C4 Latest Ref Rng & Units 05/18/2016 11/04/2017 05/12/2018 C3 86 - 166 mg/dL 193 168(H) 165 C4 13 - 46 mg/dL 38 30 30 CK Latest Ref Rng & Units 05/18/2016 CK 30 - 220 U/L 131 RF and CCP Latest Ref Rng & Units 05/18/2019 11/19/2019 11/21/2020 04/08/2022 RHEUMATOID FACTOR <16 IU/mL 28(H) 37(H) 30(H) 32(H) Hepatitis Screen Latest Ref Rng & Units 03/29/2009 05/18/2016 HEPBCOTOL Negative Negative Negative HEPSABQ Negative Negative Negative HEPCABEIA Negative Negative Negative HBSAGR Negative Negative Negative Antibodies Latest Ref Rng & Units 04/21/2016 FLAKITA Negative Positive(A) FLAKITA TITER Negative Greater than 1:1280(A) FLAKITA PATTERN - Speckled DNA ANTIBODY W/CONFIRMATION <30 IU/mL <12 INSECT CONTROL INSPECTOR ANTIBODY <1.0 AI <0.2 SSA ANTIBODY <1.0 AI >8.0(H) SSB ANTIBODY <1.0 AI <0.2 NATALYA-1 ANTIBODY, IGG <1.0 AI <0.2 RIBOSOMAL INSECT CONTROL INSPECTOR <1.0 AI <0.2 SM ANTIBODY <1.0 AI <0.2 SCLERODERMA AB, IGG <1.0 AI <0.2 CENTROMERE AB <1.0 AI <0.2 CHROMATIN ANTIBODY <1.0 AI <0.2 Urinalysis Latest Ref Rng & Units 05/01/2015 04/19/2016 10/06/2016 10/14/2016 PROTEIN, URINE Neg mg/dL neg - - - PROTEIN (U), JANAY NEGAT mg/dL - - - - PROTEIN UA (POCT) Neg mg/dL - Negative Negative Negative RBC, URINE R03 /HPF - - - - RBC, URINE, JANAY /hpf - - - - IMPRESSION / VISIT DIAGNOSES: 1. Sjogren's syndrome, with unspecified organ involvement (HCC) - ICD9: 710.2, ICD10: M35.00 (primary diagnosis) Comment: +FLAKITA, +SSA, +RF and xerostomia, polyarthralgia Trial on hydroxychloroquine did not help with pain, fatigue or sicca Check labs annually to screen for lymphoproliferative disease, due now - remain off plaquenil - labs reviewed above are acceptable 2. Dry mouth - ICD9: 527.7, ICD10: R68.2 - discussed conservative management of mouth dryness including biotin toothpaste, frequent sips of water, OTC saliva producting supplements 3. Primary osteoarthritis of left knee - ICD9: 715.16, ICD10: M17.12 She has recently been having more knee pain that is likely due to osteoarthritis of the left knee. Likely needs TKR. She had an injection end of February. Suspect her elevated inflammatory markers may have been related to that, but will monitor. No signs of synovitis today or evidence of PMR FOLLOW-UP: 1 year Génesis Carlton MD Rheumatology Staff Pager [phone] documented in this encounter [facility] Note 04-06-2022 Telephone Encounter - Carolyne Tinajero RN - 04/06/2022 8:06 AM EDTTelephone Encounter - Génesis Carlton MD - 04/05/2022 5:48 PM EDTTelephone Encounter - Vianney Rendon - 04/02/2022 9:45 AM EDT Note Date & Type Note Facility 04-06-2022 Miscellaneous Notes Formattin g of this note might be different from the original. Patient notified lab orders placed. Carolyne Tinajero RN Orders signed. Génesis Carlton MD Patient called back and would like to be notified when orders have been signed so that she can schedule an appointment to have labs drawn. Patient has appointment with Dr Carlton 04/23/2022. Vianney Noguera Pss Lab orders pended to Dr. Carlton for Signature. Carolyne Tinajero RN [facility] is calling Génesis Carlton MD today Patient Question Patient has been identified by name and birthdate. Patient calling to ask that orders for blood work be put in so she can have lab work done before her 04/23/22 appointment. Patient is requesting that CBC and liver profile test be added on as well. Duration of symptoms: N/A Person calling: self Call patient at: on cell [phone] (home) [phone] (cell) Was an appointment scheduled: No Closing statement: Results or non-symptom based questions: Thank you for calling [facility], your call will be returned within the next business day. Christine Garza documented in this encounter [facility] Note 12-22-2021 Telephone Encounter - Carolyne Tinajero RN - 12/22/2021 11:29 AM EDTTelephone Encounter - Génesis Carlton MD - 12/22/2021 11:11 AM EDTTelephone Encounter - Carolyne Tinajero RN - 12/21/2021 9:46 AM EDT Note Date & Type Note Facility 12-22-2021 Miscellaneous Notes Spoke with [facility], message given below. Patient verbalized she no longer takes Flexeril. Patient verbalized understanding and had no other questions. Carolyne Tinajero RN December 22, 2021 11:30 AM I sent it to her pharmacy. Please advise her this is to be used in place of flexeril. Génesis Carlton MD Dr. Carlton, Dr. John offered Methocarbomol for patient however it has not been sent in to the pharmacy. Is this something you are comfortable sending in? Thank you, Carolyne Tinajero RN Pt calling in to check on the status of medication being sent to the pharmacy. Please notify pt when medication is sent at [phone]. Patient requesting a generalized letter to carry around with her so that when she coughs she can show she doesn't have Covid and isn't contagious . Patient states her PCP told her they believe the Locking up is not a side effect of the Olanzapine because she has been on it so long with no issues. Spoke with patient about methocarbomol per message below, patient is willing to try. [facility] confirmed with the patient. Carolyne Tinajero RN December 18, 2021 9:45 AM Images from the original note were not included. Message left for [facility], asking who letter is for and what needs to be addressed per message below. SCARLETT Mittal MD [facility] 2 days ago fine, I guess. why does she need it? 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 Coleen ok, would try methocarbamol , another muscle relaxant if she would like , as long as olanzapine not felt causal. tx! janae john m.d. Spoke with patient she has reached out to her PCP in regards to bronchitis symptoms. Patient will reach out to her physician who prescribes olanzapine. Patient is no longer taking the flexeril (states this has not helped) and states the steroid pack has not helped in the past either. Offered patient a visit with an [facility] which she states she already has a hard time finding rides to her regular visits. She is going to try reaching out to see if these symptoms are a side effect of Olanzapine then reach back out to us. Carolyne Tinajero RN December 14, 2021 11:08 AM 1) if she feels she has bronchitis, needs to be evaluated rachel by pcp or urgent care to be sure an infection is not contributing to her symptoms 2) it is possible her musculoskeletal symptoms are a side effect on her olanzapine. she need to call that prescribing MD and review 3) she has a muscle relaxant listed on her meds. has she tried that? 4) she has medrol steroid pack listed on her meds. has she used that in the past for similar symptoms and does it work? 5) she can be offered a visit with rheum [facility] if needed tx Cynthia John MD Call placed to [facility], patient has pain in her left foot (04/07) and a Locking up feeling in her hands, she feels like she cant move . Patient stated her hands started locking up 3 weeks ago, patient has been taking tylenol and Jennifer body and back which have not been providing relief. Patient states her hands tighten up more in the evening and her legs are worse at night. Patient states she did fall 6 months ago due to the same symptoms but denies any new falls at this time. Next appointment is 03/12/22. Carolyne Tinajero RN December 14, 2021 10:12 AM [facility] is calling Génesis Carlton MD today Patient Update Patient has been identified by name and birthdate. Patient calling to advise that she is having muscles spasms / knotting up in her hands and legs. Hands get so knotted that she can't hold a piece of paper or write. Patient's legs also knotted up to where she will lose the ability to walk and loses her balance. Patient is fatigued and has a bad cough but thinks it is bronchitis. Duration of symptoms: 4 days Person calling: self Call patient at: at home [phone] (home) [phone] (cell) Was an appointment scheduled: No Closing statement: Symptom Call: Thank you for calling [facility], your call is very important. A nurse will call in approximately 2-4 hours during business hours. If this is an emergency, please contact 911. Christine Garza documented in this encounter [facility] Evaluation note Note Date & Type Note Facility documented in this encounter [facility] Evaluation note Note Date & Type Note Facility documented in this encounter [facility] Evaluation note Note Date & Type Note Facility documented in this encounter [facility] Summary Purpose Family History No Family History Records Found Advance Directives No Advanced Directives Records Found Additional Source Comments Source Comments (unrecognize d section and content) In the event this informatio n is protected by the Federal Confidentiality of Alcohol and Drug Abuse Patient Records regulations: The Federal rules restrict any use of the information to criminally investigate or prosecute any alcohol or drug abuse patient.[facility] the event this information is protected by the Federal Confidentiality of Alcohol and Drug Abuse Patient Records regulations: The Federal rules restrict any use of the information to criminally investigate or prosecute any alcohol or drug abuse patient.[facility] the event this information is protected by the Federal Confidentiality of Alcohol and Drug Abuse Patient Records regulations: The Federal rules restrict any use of the information to criminally investigate or prosecute any alcohol or drug abuse patient.[facility] the event this information is protected by the Federal Confidentiality of Alcohol and Drug Abuse Patient Records regulations: The Federal rules restrict any use of the information to criminally investigate or prosecute any alcohol or drug abuse patient.[facility] the event this information is protected by the Federal Confidentiality of Alcohol and Drug Abuse Patient Records regulations: The Federal rules restrict any use of the information to criminally investigate or prosecute any alcohol or drug abuse patient.[facility] Reason for Visit (unrecogniz ed section and content) Reason Comments Patient Question Reason Comments Sjogren's Disease Reason Comments Orders Reason Comments Future Appointment labs Care Teams (unrecognized sec tion and content) Tenant Relations Coordinator Relationship Specialty Start Date End Date Janet Ramos DO PCP - General Family Practice 06/10/14 Tenant Relations Coordinator Relationship Specialty Start Date End Date Richard Janet Reynolds DO PCP - General Family Medicine 06/10/14 Tenant Relations Coordinator Relationship Specialty Start Date End Date Janet Ramos DO PCP - General Family Medicine 06/10/14 INFORMATION SOURCE (unrecogn ized section and content) FOR RECORDS PERTAINING TO PATIENTS WHO ARE OR HAVE BEEN ENROLLED IN A CHEMICAL DEPENDENCY/SUBSTANCEABUSE PROGRAM, SOME INFORMATION MAY BE OMITTED. This clinical summary was aggregated from multiple sources. Caution should be exercised in using it in the provision of clinical care. This summary normalizes information from multiple sources, and as a consequence, information in this document may materially change the coding, format and clinical context of patient data. In addition, data may be omitted in some cases. CLINICAL DECISIONS SHOULD BE BASED ON THE PRIMARY CLINICAL RECORDS. [employer] [facility]. provides no warranty or guarantee of the accuracy or completeness of information in this document.
== END | disposition home or self-care (01) ==
LOC: MRI 15:24
PROVIDERS: PCP Family Medicine; Referring Provider Orthopaedic Surgery; Visit Provider Orthopaedic Surgery
DX: M17.12 Unilateral primary osteoarthritis, left knee (principal)
CPT/HCPCS: 73721

== ENCOUNTER → 2023-11-10 | Outpatient (CLI) | payer MEDICAID, SELFPAY ==
--- OUTSIDE RECORDS SUMMARY | 2023-11-10 07:14 | XMS RPT_ITS | CCD ---
Author Name Unknown Address [address] [place] [address] Organization [facility] Care Team Providers Care Radio Recorder Name Role Phone Julia Ma LPN Unavailable Unavailab Soraya Duran Unavailable Unavailable Julia Ma LPN Unavailable Unavailab emelina RichardJanet benoit DO Primary Care Provider [facility] Janet MA A Primary Care Provider [facility] Janet MA A Primary Care Provider GÉNESIS [...] substance 03-27-20 14 Anaphylaxis [facility] Work Phone: (6 sources) Corticosteroids drug allergy 05-01-20 14 Swelling and hives [facility] Work Phone: (3 sources) meloxicam drug allergy 02-06-20 15 [facility] Work Phone: (3 sources) QUEtiapine drug allergy 11-26-19 15 Shaky, lightheaded, abnormal dreams [facility] Work Phone: (3 sources) traMADol drug allergy 03-27-20 14 severe itching [facility] Work Phone: (3 sources) valproate drug allergy 12-14-19 15 nighmares [facility] Work Phone: (6 sources) Acetaminophen / oxyCODONE; 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: [OXYCODONE-ACETAMIN OPHEN] Drug Allergy 01-10-20 09 Itching [facility] (6 sources) meloxicam; 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: [MELOXICAM] Drug Allergy 12-11-19 08 Itching [facility] (6 sources) Pentazocine; 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: [PENTAZOCINE LACTATE] Drug Allergy 02-17-20 06 [facility] Work Phone: (6 sources) predniSONE; 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: [PREDNISONE] Drug Allergy 12-12-19 09 [facility] (6 sources) Shellfish; 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: [SHELLFISH] Propensity to adverse reactions 02-17-20 06 [facility] Work Phone: (6 sources) traMADol; 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: [TRAMADOL HCL] Drug Allergy 03-06-20 14 Rash, Itching [facility] (6 sources) Bee Sting; 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: [BEE STING] Allergy to substance 03-27-20 14 Anaphylaxis [facility] (6 sources) Bees; 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: [BEES] Propensity to adverse reactions 05-10-20 07 Anaphylaxis [facility] Work Phone: (4 sources) Glucocorticoid preparation; 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: [CORTICOSTEROIDS (GLUCOCORTICOIDS)] Drug Allergy 05-01-20 14 Hives, Swelling [facility] (4 sources) oxyCODONE; 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: [OXYCODONE] Drug Allergy 08-02-20 18 Rash [facility] (4 sources) QUEtiapine; 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: [QUETIAPINE] Drug Allergy 11-26-19 15 Mental Status Change [facility] (4 sources) Valproate; 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: [VALPROIC ACID] Drug Allergy 12-14-19 15 Mental Status Change [facility] (1 source) Bee pollen; 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: [BEE POLLEN] Propensity to adverse reactions to drug (disorder) 03-27-20 14 [facility] (1 source) Shellfish; 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: [SHELLFISH DERIVED] Propensity to adverse reactions to drug (disorder) 02-17-20 [facility] Rep[facility] Medications Completed/Discontinued Medications Medication Drug [...] (current) use of other medications; 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: [Other longterm (current) drug therapy] Onset: 10-17-2014 Resolved: 04-17-2015 [...] [degF] Génesis Carlton MD Work Phone: [facility] 04-23-2022 11:42-0400 Body weight 104.78 kg Génesis Carlton MD Work Phone: [facility] 04-23-2022 11:42-0400 Diastolic blood pressure 55 mm[Hg] Génesis Carlton MD Work Phone: [facility] 04-23-2022 11:42-0400 Heart rate 81 /min Génesis Carlton MD Work Phone: [facility] 04-23-2022 11:42-0400 Systolic blood pressure 112 mm[Hg] Génesis Carlton MD Work Phone: [facility] 02-17-2017 08:41-0400 BMI (Body Mass Index) 36.71 kg/m2 Soraya Milton [facility] Work Phone: 02-17-2017 08:41-0400 Body Temperature 97.6 [degF] Soraya Milton [facility] Work Phone: 02-17-2017 08:41-0400 BP Diastolic 80 mm[Hg] Soraya Yoan [facility] Work Phone: 02-17-2017 08:41-0400 BP Systolic 150 mm[Hg] Soraya Yoan [facility] Work Phone: 02-17-2017 08:41-0400 Height 158.75 cm Soraya Milton [facility] Work Phone: 02-17-2017 08:41-0400 Pulse (Heart Rate) 82 /min Soraya Milton [facility] Work Phone: 02-17-2017 08:41-0400 Pulse Oximetry 97 % Soraya Milton [facility] Work Phone: 02-17-2017 08:41-0400 Respiratory Rate 18 /min Soraya Milton [facility] Work Phone: 02-17-2017 08:41-0400 Weight 92.53 kg Soraya Milton [facility] Work Phone: 08-19-2016 08:03-0500 Body Temperature 99.14 [degF] Soraya Milton [facility] Work Phone: 08-19-2016 08:03-0500 BSA (Body Surface Area) 1.92 m2 Soraya Milton [facility] Work Phone: 08-19-2016 08:03-0500 Height 158.75 cm Soraya Milton [facility] Work Phone: 08-19-2016 08:03-0500 Weight 90 kg Soraya Milton [facility] Work Phone: 05-01-2014 10:04-0400 BP Systolic 124 mm[Hg] Soraya Milton [facility] Work Phone: 04-18-2014 13:45-0400 Heart rate 84 /min Soraya Milton [facility] Work Phone: Encounters Encounter Date Encounter Type Care Provider Facility Start: 04-22-2023 End: 04-22-2023 ambulatory GÉNESIS CARLTON Facility:[facility] Start: 04-08-2023 Telephone encounter Génesis Carlton MD [...] Mckeon MD Start: 04-18-2014 End: 04-18-2014 MMM Jani Mckeon MD Start: 04-18-2014 End: 05-21-2014 Nuclear [...] DTAP,TDAP,TD (3 - Td or Tdap) [facility] Start: 04-08-2025 DIABETES SCREEN DIABETES SCREEN [facility] Start: 11-18-2024 LIPID SCREEN LIPID SCREEN [facility] Start: 11-22-2023 DIABETES SCREEN DIABETES SCREEN [facility] Start: 04-29-2023 Influenza vaccination INFLUENZA (#1) [facility] Start: 04-23-2023 BP CONTROLLED (<130/80) BP CONTROLLED (<130/80) [facility] Start: 04-08-2023 End: 06-08-2023 25-hydroxyvitamin D3 [Mass/volume] in Serum or Plasma VITAMIN D 25 HYDROXY Lab Routine Sjogren's syndrome, with unspecified organ involvement (HCC) Dry mouth Primary osteoarthritis of left knee Expected: 04/08/2023 (Approximate), Expires: 06/08/2023 [facility] Work Phone: Immunizations Immunization Date Immunization Notes Care Provider Amadeo robert 03-07-2019 tetanus toxoid, redu martin diphtheria toxoid, and acellular pertussis vaccine, adsorbed Génesis Carlton MD Work Phone: [facility] 05-25-2017 influenza, seasonal, injectable Génesis Carlton MD Work Phone: [facility] 05-25-2017 influenza, seasonal, injectable, preservative free Génesis Carlton MD Work Phone: [facility] 05-27-2016 influenza, seasonal, injectable Génesis Carlton MD Work Phone: [facility] 05-27-2016 influenza, seasonal, injectable, preservative free Génesis Carlton MD Work Phone: [facility] 06-03-2015 influenza, seasonal, injectable Génesis Carlton MD Work Phone: [facility] 06-03-2015 influenza, seasonal, injectable, preservative free Génesis Carlton MD Work Phone: [facility] 08-15-2014 influenza, seasonal, injectable Génesis Carlton MD Work Phone: [facility] 08-15-2014 influenza, seasonal, injectable, preservative free Génesis Carlton MD Work Phone: [facility] 07-29-2014 influenza, seasonal, injectable, preservative free Génesis Carlton MD Work Phone: [facility] 09-06-2013 influenza, seasonal, injectable Génesis Carlton MD Work Phone: [facility] 09-06-2013 influenza, seasonal, injectable, preservative free Génesis Carlton MD Work Phone: [facility] 05-17-2013 pneumococcal polysaccharide vaccine, 23 valent Génesis Carlton MD Work Phone: [facility] 04-30-2009 influenza virus vacc ine, unspecified formulation Génesis Carlton MD Work Phone: [facility] Work Phone: 01-29-2008 tetanus toxoid, redu martin diphtheria toxoid, and acellular pertussis vaccine, adsorbed Génesis Carlton MD Work Phone: [facility] Work Phone: Payers Date Payer Category Payer Medicaid [id number] 2008 [facility] MEDICAID [id number] 2008-Present [phone] [address] [place] [address] Medicaid [id number] 2008 Medicaid [id number] Social History Date Type Detail Facility Start: 02-04-2009 End: 04-23-2022 Tobacco smoking status NHIS Ex-smoker [facility] End: 03-29-1983 History of tobacco use Current smoker [facility] End: 03-29-1983 History of tobacco use Cigarette Smoker [facility] Start: 11-21-2020 End: 04-23-2022 Alcohol intake Current non-drinker of alcohol (finding) [facility] Start: 1955 Sex Assigned At Not on file [facility] Start: 02-04-2009 End: 09-24-2022 Cigarettes smoked current (pack per day) - Reported 4 [facility] Start: 02-04-2009 End: 04-23-2022 Tobacco use and exposure Smokeless tobacco non-user [facility] Work Phone: Start: 04-13-2022 End: 04-23-2022 Exposure to SARS-CoV-2 (event) Not sure [facility] Start: 04-23-2022 End: 09-24-2022 Tobacco use panel [facility] Adult Depression Screening Assessment 2 [facility] Medical Equipment Procedure Code Equipment Code Equipment Origin al Text Equipment Identifier Dates [id number] Implant - [id number] Start: 12-15-2011 Progress note 04-22-2023 Note Date & Type Note Facility 04-22-2023 Note HNO ID: [id number] Author: Génesis Carlton MD Service: ? Author [...] have persistent cough but does see a litigation associate regularly for PFT's and an underlying diagnosis [...] No Swallowing p (more content not included)... [facility] Note 04-11-2023 Telephone Encounter - Carolyne Tinajero [...] calling: self Call patient at: at home [phone] (home) [phone] (cell) Was an appointment scheduled: No Closing statement: Symptom Call: Thank you for calling [facility], your call is very important. A nurse will call in approximately 2-4 hours during business hours. If this is an emergency, please contact 911. Armen Verma documented in this encounter [facility] Note 04-08-2023 Telephone Encounter - Sheyla Ragsdale [...] calling: self Call patient at: at home [phone] (home) [phone] (cell) Was an appointment scheduled: No Closing statement: Results or non-symptom based questions: Thank you for calling [facility], your call will be returned within the next business day. Christine Garza documented in this encounter [facility] Instructions 04-23-2022 Patient Instructions Note Date & Type Note Facility 04-23-2022 Instructions Génesis Carlton MD - 04/23/2022 12:08 PM EDT Diclofenac GEL take 2-3 times daily. 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 Thomas PTSD (post-traumatic stress disorder) seeing counselor Sjogren syndrome ([facility]) Unspecified asthma(493.90) Asthma Unspecified SOCIAL HISTORY: Social [...] (Patient not taking: Reported on 11/21/2020) Ipratropium [place] (ATROVENT) 0.03 % nasal spray triamcinolone acetonide [...] Units 04/21/2016 Sm Antibody <1.0 AI <0.2 SALES SPECIALIST Antibody <1.0 AI <0.2 SSA Antibody <1.0 AI >8.0 (H) SSB Antibody <1.0 AI <0.2 Centromere Ab <1.0 AI <0.2 Scleroderma Ab, IgG <1.0 AI <0.2 Natalya 1 Antibody <1.0 AI <0.2 Ribosomal SALES SPECIALIST <1.0 AI <0.2 Chromatin Antibody <1.0 AI [...] 35 U/L 29 20 17 14 AST, JANAY 7 - 40 U/L - - - [...] Speckled DNA ANTIBODY W/CONFIRMATION <30 IU/mL <12 SALES SPECIALIST ANTIBODY <1.0 AI <0.2 SSA ANTIBODY <1.0 AI >8.0(H) SSB ANTIBODY <1.0 AI <0.2 NATALYA-1 ANTIBODY, IGG <1.0 AI <0.2 RIBOSOMAL SALES SPECIALIST <1.0 AI <0.2 SM ANTIBODY <1.0 AI [...] year Génesis Carlton MD Rheumatology Staff Pager [phone] documented in this encounter [facility] Note 04-06-2022 Telephone Encounter - Carolnye Tinajero RN - 04/06/2022 8:06 AM EDTTelephone [...] calling: self Call patient at: on cell [phone] (home) [phone] (cell) Was an appointment scheduled: No Closing statement: Results or non-symptom based questions: Thank you for calling [facility], your call will be returned within the next business day. Christine Garza documented in this encounter [facility] Note 12-22-2021 Telephone Encounter - Carolyne Tinajero [...] notify pt when medication is sent at [phone]. Patient requesting a generalized letter to carry [...] message below, patient is willing to try. [place] pharmacy confirmed with the patient. Carolyne Tinajero RN December 18, 2021 9:45 AM Images from the original note were not included. Message left for [place], asking who letter is for and what needs to be addressed per message below. SCARLETT Mittal MD [facility] Pool 2 days ago fine, I guess. [...] calling: self Call patient at: at home [phone] (home) [phone] (cell) Was an appointment scheduled: No Closing statement: Symptom Call: Thank you for calling [facility], your call is very important. A nurse will call in approximately 2-4 hours during business hours. If this is an emergency, please contact 911. Christine Garza documented in this encounter [facility] Evaluation note Note Date & Type Note Facility documented in this encounter [facility] Evaluation note Note Date & Type Note Facility documented in this encounter [facility] Evaluation note Note Date & Type Note Facility documented in this encounter [facility] Summary Purpose Family History No Family History [...] or prosecute any alcohol or drug abuse patient.[facility] the event this information is protected by the Federal Confidentiality of Alcohol and Drug Abuse Patient Records regulations: The Federal rules restrict any use of the information to criminally investigate or prosecute any alcohol or drug abuse patient.[facility] the event this information is protected by the Federal Confidentiality of Alcohol and Drug Abuse Patient Records regulations: The Federal rules restrict any use of the information to criminally investigate or prosecute any alcohol or drug abuse patient.[facility] the event this information is protected by the Federal Confidentiality of Alcohol and Drug Abuse Patient Records regulations: The Federal rules restrict any use of the information to criminally investigate or prosecute any alcohol or drug abuse patient.[facility] the event this information is protected by the Federal Confidentiality of Alcohol and Drug Abuse Patient Records regulations: The Federal rules restrict any use of the information to criminally investigate or prosecute any alcohol or drug abuse patient.[facility] Reason for Visit (unrecogniz ed section and content) Reason Comments Patient Question Reason Comments Sjogren's Disease Reason Comments Orders Reason Comments Future Appointment labs Care Teams (unrecognized sec tion and content) Radio Recorder Relationship Specialty Start Date End Date Janet Ramos DO PCP - General Family Practice 06/10/14 Radio Recorder Relationship Specialty Start Date End Date Richard Janet Reynolds DO PCP - General Family Medicine 06/10/14 Radio Recorder Relationship Specialty Start Date End Date Janet [...] BE BASED ON THE PRIMARY CLINICAL RECORDS. [employer] [facility]. provides no warranty or guarantee of the accuracy or completeness of information in this document.
--- NOTE | 2023-11-11 13:56 | STRESSREP_ITS ---
Stress Test Report Date: 11/10/2023 Procedure: Pharmacologic stress nuclear imaging study Indications: Chest pain Consent: Per the patient Procedure: The patient underwent pharmacologic (Regadenoson 0.4mg ) evaluation with a peak heart rate of 101 beats per minute (66%predicted maximal heart rate) and a peak blood pressure of 122/82 mmHg. The baseline ECG demonstrated sinus rhythm. The peak pharmacologic ECG demonstrated no ischemic changes. There were no cardiac dysrhythmias pretest, during pharmacologic infusion, or recovery. There was no complaint of chest discomfort during pharmacologic infusion or recovery. The patient was injected with 15.0 millicuries of technetium 99m Cardiolite and subsequently rest SPECT Cardiolite nuclear imaging was obtained in the horizontal long, vertical long, and short axis views. The patient underwent pharmacologic (Regadenoson) evaluation. The patient was injected with 44.8 millicuries of technetium 99m Cardiolite and subsequently stress SPECT Cardiolite nuclear imaging was obtained in the horizontal long, vertical long, and short axis views. A gated Cardiolite study at peak stress was obtained. The examination was stopped secondary to completion of protocol. Rest and stress SPECT Cardiolite nuclear imaging status post realignment, normalization, and attenuation correction demonstrate an anterior perfusion defect and stress which appears more like a processing artifact. There is end systolic thickening and brightening. The gated Cardiolite study demonstrates myocardial thickening and inward wall motion. The reported LVEF is 76%. Impression: 1. Pharmacologic (Regadenoson) evaluation 2. Peak pharmacologic ECG with no ischemic changes. 3. There were no cardiac dysrhythmias pretest, during pharmacologic infusion, or recovery. 5. Small to moderate size reversible perfusion defect of the anterior wall however processing artifact cannot be excluded. Recommend further evaluation with coronary CT angio. 6. The gated Cardiolite study reports an LVEF of 76%. This note was generated with [employer] software. It may contain incorrect words, spelling, and punctuation that were not noted in checking the note before signing.
== END | disposition home or self-care (01) ==
LOC: CVS 07:11
PROVIDERS: PCP Family Medicine; Referring Provider Internal Medicine Cardiovascular Disease; Visit Provider Internal Medicine Cardiovascular Disease
DX: R07.9 Chest pain, unspecified (principal); R06.09 Other forms of dyspnea; I10 Essential (primary) hypertension; E66.9 Obesity, unspecified
CPT/HCPCS: 78452; 93017; A9500; A4216; J2785

== ENCOUNTER 2023-11-24 09:15 | Outpatient (RCR) | payer MEDICAID, SELFPAY | END 2023-11-27 23:59 | LOC: NS 09:15 | PROVIDERS: PCP Family Medicine; Referring Provider Family Medicine; Visit Provider Family Medicine | DX: Z71.3 Dietary counseling and surveillance (principal); E66.9 Obesity, unspecified; E78.5 Hyperlipidemia, unspecified | CPT/HCPCS: 97803 ==

== ENCOUNTER → 2023-11-25 | Outpatient (CLI) | payer MEDICAID, SELFPAY ==
[2023-11-25 15:19] LABS: Hematocrit 36.9 % (37-47); Hemoglobin 10.9 g/dL (12.0-15.0); Mean Corp Hgb Conc 29.5 g/dL (32-36); Mean Corpuscular Hgb 24.5 pg (27.0-32.0); Mean Corpuscular Volume 82.9 fL (81-99); Mean Platelet Vol. 8.5 fl (6.2-12.0); Platelet Count 413 K/mm3 (150-450); RBC Distribution Width SD 60.8 fl (35.1-43.9); Red Blood Count 4.45 M/mm3 (4.2-5.4); White Blood Count 6.9 K/mm3 (4.4-11.0)
[2023-11-25 16:13] LABS: Anion Gap 6 (5-15); BUN 14 mg/dL (7-18); BUN/Creat Ratio 19.8 RATIO (10-20); Calcium,Total 9.4 mg/dL (8.5-10.1); Chloride 109 mmol/L (98-107); Creatinine, Serum 0.71 mg/dL (0.55-1.02); EST Glomerular Filtration Rate 88 mL/min (>60); Est Glom Filt Rate - Afr Amer 106 mL/min (>60); Glucose 98 mg/dL (74-106); Potassium 4.1 mmol/L (3.5-5.1); Sodium Level 137 mmol/L (136-145)
== END | disposition home or self-care (01) ==
LOC: MTLAB 12:33
PROVIDERS: PCP Family Medicine; Referring Provider Internal Medicine Cardiovascular Disease; Visit Provider Internal Medicine Cardiovascular Disease
DX: I20.89 Other forms of angina pectoris (principal); R94.39 Abnormal result of other cardiovascular function study; R06.09 Other forms of dyspnea
CPT/HCPCS: 36415; 80048; 85027

== ENCOUNTER 2023-11-29 09:34 | Day surgery (SDC) | payer MEDICAID, SELFPAY ==
--- NOTE | 2023-11-28 08:52 | PCM.HP.BLA ---
History and Physical Date of Admission: 11/29/23 This is a 68 year old lady who presents today for a cardiac catheterization following an abnormal stress test and chest pain. She has a history significant for rheumatoid arthritis, asthma, hypertension and obesity. She has been complaining of intermittent anterior chest discomfort for the last 6 months. According to the patient, these episodes occur at rest. She feels anterior chest tightness. No associated shortness of breath. No diaphoresis. No nausea or vomiting. No radiation to the arm neck or jaw. According to her, these episodes are relieved by themselves. She thinks they do not last more than 20 minutes at most. Per patient, physical exertion does not precipitate any chest tightness. She does have longstanding dyspnea with exertion. This remains unchanged. Echocardiogram done on 08/18/2023 showed normal LV systolic function. Stage I diastolic dysfunction was noted. Intake Vital Signs See EMR Allergies See EMR Medications See EMR PFS Medical History Anxiety Arthritis Asthma Back sprain BiPAP (biphasic positive airway pressure) dependence Bipolar 2 disorder Bipolar disorder Chest pain Chest pressure Chronic low back pain CPAP (continuous positive airway pressure) dependence Depression Difficulty chewing FAITH (dyspnea on exertion) Elevated hemoglobin A1c Encounter for screening for malignant neoplasm of colon Epigastric abdominal pain Eustachian tube dysfunction Former smoker GERD (gastroesophageal reflux disease) Hepatitis Herpes simplex with unspecified complication History of echocardiogram History of edema History of IBS History of irregular heartbeat History of stress test Hyperlipidemia Hypertension Injury of head and neck Left knee pain Leg cramps Lightheadedness Long-term use of high-risk medication Loss of appetite Mild dilation of ascending aorta Mild intermittent asthma in adult without complication Mild mitral regurgitation Nephrolithiasis Neuropathy Nightmares Obesity Obesity (BMI 30-39.9) OCD (obsessive compulsive disorder) TROY (obstructive sleep apnea) TROY (obstructive sleep apnea) Osteoarthritis of left knee Otitis media Paroxysmal atrial tachycardia PND (post-nasal drip) Rheumatoid arthritis Rhinorrhea Right flank pain Segmental and somatic dysfunction of cervical region Segmental and somatic dysfunction of thoracic region Sensory polyneuropathy Sinusitis Sjogrens syndrome Sleep apnea Spinal stenosis of lumbar region Stress incontinence Thoracic aortic aneurysm without rupture Urinary frequency Urinary incontinence, urge Urinary urgency Wears dentures Wears glasses Surgical History bladder sling removal H/O eye surgery H/O hand surgery H/O: hysterectomy History of appendectomy History of bilateral carpal tunnel release History of total right knee replacement Hx laparoscopic cholecystectomy Hx of surgical procedure Family History Father Cancer Alcoholism HypertensionMother Heart disease H/O weight disorder Myocardial infarction Hypertension COPD (chronic obstructive pulmonary disease) Skin cancerSister Hypertension Social History Smoking Status: Former smoker quit date: 08/29/82 pack-years: 15 second hand exposure: No alcohol intake: never substance use type: does not use ROS Const Const: Positive for fatigue, weakness, headache(s) and difficulty sleeping; Negative for frequent falls or excessive sweating Eyes Eyes: Negative for loss of peripheral vision, transient loss of vision, blurry vision, double vision or tunnel vision ENT ENT: Positive for headache(s) and balance problems; Negative for dizziness or Nosebleed/epistaxis Cardio Chest Pain: Yes Frequency: weekly (3x/week) Character: dull Location: left chest Duration: minutes Palpitations: Yes (occ) feels like its: fast Edema: Bilateral (occ) Muscle aches with walking: None Resp Respiratory: Positive for SOB with activity; Negative for SOB at rest, SOB orthopnea\SOB lying down, Cough or paroxysmal nocturnal dyspnea GI GI: Positive for heartburn; Negative nausea, vomiting or black,tarry stools : Negative for hematuria Musc Musc: Positive for muscle weakness, joint pain and balance problems; Negative for muscle aches/ myalgia Skin Skin: Negative non-healing lesions, rash or unusual bruising Neuro Neuro: Positive for lightheadedness, headache(s) and weakness; Negative for dizziness, near syncope, syncope, frequent falls, blurry vision, double vision or lack of coordination Stephen Hematologic/Lymphatic: Negative for easy bleeding or easy bruising Endo Endo: Positive for fatigue; Negative for excessive sweating or increased thirst/drinking Psych Psych: Negative for anxiety or depression Allergy Allergy/Immunology: Negative for hives and Negative for rash Cardiology Exam Const Appearance: comfortable and no acute distress Nutritional Appearance: obese Neck Neck: no JVD Carotids: Negative bruit Chest Auscultation: Bilateral: Clear to Auscultation Cardio Rate: regular rate Rhythm: regular rhythm Heart sounds: S1 normal and S2 normal GI GI: obese Neuro General: patient alert, patient awake and patient oriented x3 Extremities Lower Extremity Edema: None: Bilateral Supplemental Info Supplemental Information ECHOCARDIOGRAM 08/18/23: Interpretation Summary Normal LV size. Left ventricular systolic function is normal. The estimated ejection fraction is 65 %. Stage 1 diastolic dysfunction. Pulmonary artery systolic pressure is 23 mmHg. Contrast injection was performed. STRESS TEST 06/15/17: Perfusion SPECT analysis. Review of the images demonstrate normal uptake of tracer noted in all areas of the myocardium on the stress and resting images to a similar extent. The stress images demonstrate no perfusion defect in the resting images demonstrate no perfusion defect. No previous infarct is noted. Gated SPECT analysis: The gated left ventricular ejection fraction is 65% Conclusion: Normal pharmacologic myocardial perfusion stress test with no evidence of ischemia. 24 HOUR HOLTER MONITOR 01/04/23: Quality Good SINUS RHYTHM, Rate range 52-132 (MEAN 72) Normal [place] and QRS intervals Rare APDS, two short runs SVT (longest 5 beats, fastest 123 BPM), No A FIB 1 VPD in 24 hours, No V TACH Stable ST Segments No Pauses No changes in Rhythm (No ectopy) during two symptoms of shortness of breath PULMONARY FUNCTION TEST 07/27/23: INTERPRETATION: Forced expiration spirometry demonstrates no evidence of a large airways obstructive ventilatory defect. There was a significant response to aerosolized bronchodilators. Spirograms are of good quality and plateau normally. Body plethysmography was performed and revealed lung volumes to be within normal limits. Diffusing capacity by single breath CO was reduced to 50% of predicted. IMPRESSION: Isolated moderate reduction in diffusing capacity with significant bronchodilator response noted. Assessment and Plan Assessment and Plan (1) Chest pain: Status: Chronic Plan: Patient acknowledges chest pain. Her stress test was noted to be abnormal. Would like to proceed with a cardiac catheterization to further assess this. Depending on results, further recommendations will be made.
[2023-11-28 09:39] VITALS: BMI 43.2
--- NOTE | 2023-11-29 12:54 | CL.D_ITS ---
Patient Name: JOCE JOY Study Date: 11/29/2023 Performing: Ravindra Singh MD Ht: 63 inches 160.02 cm : 1955 Wt: 244.01 lbs 110.68 kg Age: 68 Gender: female BSA: 2.1 PROCEDURE(S) PERFORMED DC01-(68710)LHC/COR/LV DC11-(18373)AO ROOT ANGIO WITH HEART CATH CLINICAL PROFILE AND INDICATIONS Indications: Suspected CAD Heart Failure: None Stress/Imaging Stress Test w/SPECT MPI: Yes Result: Positive Intermediate RiskStress Test with SPECT MPI: Positive Intermediate Risk CONCLUSIONS No angiographically significant CAD Normal LV systolic function Normal Aortic root RECOMMENDATIONS Risk factor modification DESCRIPTION OF PROCEDURE The patient arrived to the procedure lab. The risks and benefits of the procedure as well as a full description of our services here and current unavailability of surgical backup were fully explained to the patient and/or their significant other prior to the catheterization. The Timeout was completed, verifying the correct patient and procedure. The patient's procedural site was prepped and draped in the usual fashion. Local anesthetic was given subcutaneously to right radial region with Lidocaine 2%. Using a modified Seldinger technique, Left Coronary Artery selective angiography was performed in multiple views using a 5 Fr. 4.0 Westfield catheter. Right Coronary Artery selective angiography was then performed in multiple views using a 5 Fr. 4.0 [place]field catheter. Left Ventriculography was performed in PITT projection using a 5 Fr. Pigtail catheter. LV to AO pullback pressures were then recorded. Ascending (root) aorta selective angiography was then performed in single view. Ascending (root) aorta selective angiography was then performed in single view.The arterial sheath was pulled and a TR Band was applied for hemostasis. 10cc air CORONARY ANGIOGRAPHY DOMINANCE: Right Dominant LEFT HEART ASSESSMENT Left Ventricular Ejection Fraction: by LV Gram 60 % Normal Left Ventricular systolic function LVEDP: 25 mmHg LEFT MAIN: Angiographically normal LEFT ANTERIOR DESCENDING ARTERY: Angiographically normal CIRCUMFLEX ARTERY: Angiographically normal RIGHT CORONARY ARTERY: Angiographically normal VALVE FINDINGS: Mitral Valve Insufficiency - Grade 1 Normal Aortic Valve function COMPLICATIONS No Complications PROCEDURE MEDICATIONS Fentanyl 50 mcg IV Versed 1 mg IV Fentanyl 50 mcg IV Versed 2 mg IV Oxygen: 2 L/min via nasal cannula Heparin given IA 11/29/2023 12:24:09 Verapamil 2.5mg, Ntg 200mcgs, 2000 units of Heparin given IA 11/29/2023 12:24:09 IV Bolus: .9 NaCl 250 ml total 11/29/2023 12:45:57 SUMMARY OF HEMODYNAMIC DATA Time AIR REST ECG 09:57:53 AO 135/90 (110) SA 12:27:33 LV 157/18, 26 12:36:26 LV 146/16, 27 12:36:54 LV 153/15, 25 12:37:02 LVp 159/33, 36 12:38:39 AOp 166/103 (132) 12:38:46 AIR REST 12:51:27 Signed By Ravindra Singh MD On 11/29/2023 12:54:13 Ravindra Singh MD
== END 2023-11-29 14:30 | disposition home or self-care (01) ==
PROVIDERS: PCP Family Medicine; Referring Provider Internal Medicine Cardiovascular Disease; Visit Provider Internal Medicine Cardiovascular Disease
DX: I25.10 Atherosclerotic heart disease of native coronary artery without angina pectoris (principal); F31.81 Bipolar II disorder; I10 Essential (primary) hypertension; E78.5 Hyperlipidemia, unspecified; E66.9 Obesity, unspecified; J45.909 Unspecified asthma, uncomplicated; K21.9 Gastro-esophageal reflux disease without esophagitis; F41.9 Anxiety disorder, unspecified; G47.33 Obstructive sleep apnea (adult) (pediatric); Z79.51 Long term (current) use of inhaled steroids; Z79.82 Long term (current) use of aspirin; Z79.899 Other long term (current) drug therapy; Z87.891 Personal history of nicotine dependence
CPT/HCPCS: 93458; 93567; 99152; 99153; J7040; Q9967; C1769; C1894

== ENCOUNTER 2023-12-15 08:36 | Outpatient (RCR) | payer MEDICAID, SELFPAY | END 2023-12-27 23:59 | LOC: NS 08:36 | PROVIDERS: PCP Family Medicine; Referring Provider Family Medicine; Visit Provider Family Medicine | DX: Z71.3 Dietary counseling and surveillance (principal); E66.9 Obesity, unspecified; E78.5 Hyperlipidemia, unspecified; Z68.41 Body mass index [BMI] 40.0-44.9, adult | CPT/HCPCS: 97803 ==

== ENCOUNTER → 2024-01-09 | Outpatient (CLI) | payer MEDICAID, SELFPAY ==
[2024-01-09 17:28] LABS: Vitamin D,25 Hydroxy 87.8 ng/mL
== END | disposition home or self-care (01) ==
LOC: MTLAB 09:17
PROVIDERS: PCP Family Medicine; Referring Provider Family Medicine; Visit Provider Family Medicine
DX: E55.9 Vitamin D deficiency, unspecified (principal)
CPT/HCPCS: 36415; 82306

== ENCOUNTER 2024-01-26 09:00 | Outpatient (RCR) | payer MEDICAID, SELFPAY | END 2024-01-27 23:59 | LOC: NS 09:00 | PROVIDERS: PCP Family Medicine; Referring Provider Family Medicine; Visit Provider Family Medicine | DX: Z71.3 Dietary counseling and surveillance (principal); E66.9 Obesity, unspecified; E78.5 Hyperlipidemia, unspecified; Z68.41 Body mass index [BMI] 40.0-44.9, adult | CPT/HCPCS: 97803 ==

== ENCOUNTER 2024-01-26 10:00 | Outpatient (RCR) | payer MEDICAID, SELFPAY ==
--- NOTE | 2023-07-12 13:45 | HP.PTEVAL ---
Patient's Visit Information Visit Information Visit Information: JOCE JOY is a 68 year old F referred to Physical Therapy by KRISTINE Win with a diagnosis of OSTEOARTHRITIS ,LOCALIZED ,PRIMARY LOWER LEG ,UNILATERAL PRIMARY OA. Date of Evaluation: 07/12/23 Physical Therapist: Balta Durán, PT, Cert MDT, OCS Visit Plan Frequency: 2x /Week Duration: 4 Weeks Plan: PT INTERVENTIONS ROM/FLEXABLITY ,QUADS/HAMS/HIP ,FUNCTIONAL STRENGTHENING AND NUSTEP FOR ROM Subjective Subjective: This 68 y/o female presents to physical therapy with right knee pain. Patient has had knee pain many years. Patient symptoms progressively worse. Patient has seen orthopedic consult no need of TKA. Did recommend gel injection but needs PT . Patient aggravating factors walking/standing ,stairs an unable to squat and kneeling. Patient alleviating factors rest. Patient denies paresthesia/tingling-.Patient has had x-rays in past. Patient sleeping okay. Patient pain affects QOL and function . Patient goals to decrease pain. Patient has h/o TKA right. SOCIAL; VOCATION: disablity Pain Left Knee: Pain Intensity (Out of 10): 4 Pain Intensity Range: 10 Objective Objective: POSTURE: bilateral knee valgus ,knee flexed GAIT: antalgic gait knee valgus decrease stance time LLE NEURO: denies paresthesia/tingling PALAPTION: tender medal /lateral joint line STAIRS: one steps time with rail AROM: supine knee flexion 0-110 degrees supine MMT: ( peak force) left quads 20.1,hamstrings 21.8 .hip flexion 16.8 ,hip abduction 12.2 FLEXABLITY: hamstrings min tight Special Tests L Knee Valgus - MCL: Negative L Knee Varus - LCL: Negative L Knee Patellar Apprehension - PFS: Positive L Knee Patellar Grind - PFS: Positive Balance/Special Test Scores Lower Extremity Functional Score: 29 Goals Goal 1:: Patient to be I with HEP for knee Goal Time Frame: 4-6 Weeks Goal 2:: Patient to demonstrate 50% improvement with decrease pain and improved function Goal Time Frame: 4-6 Weeks Goal 3:: Patient improve AROM supine knee flexion by 5-10 degrees to improve stairs Goal Time Frame: 4-6 Weeks Goal 4:: Patient to improve LFES score by 5 points to improve QOL and function Goal Time Frame: 4-6 Weeks Goal 5:: Patient to improve peak force quads/hams/hip by 5-10 # to improve function and gait Goal Time Frame: 4-6 Weeks Rehabilitation Potential Physical Therapy Diagnosis: This patient has DJD left knee with pain ,decrease ROM ,strength ,decrease gait and function thus benefit from skilled PT to improve function Rehabilitation Potential: Fair Anticipated Interventions Patient/Client Instruction: Educate patient on: Condition and Plan of Care For the Purpose of:: To decrease pain, To increase ROM, To improve muscle performance and motor function, To improve ability to perform ADL's, To increase tolerance to activity/condition/position, To improve ability of physical actions for home/community/work/leisure, To improve health of tissue, To decrease soft tissue restriction, To increase flexibility/ROM, To improve endurance, To improve balance, To reduce risk of recurrence and To improve tolerance to ADL's Therapeutic Exercise to Include: Strength training, Endurance training, Postural training, Flexibilty training and Active ROM For the Purpose of:: To decrease pain, To increase ROM, To improve muscle performance and motor function, To improve ability to perform ADL's, To increase tolerance to activity/condition/position, To improve ability of physical actions for home/community/work/leisure, To improve health of tissue, To decrease soft tissue restriction, To increase flexibility/ROM and To improve tolerance to ADL's Text: Thank you for the opportunity to evaluate your patient. For Medicare and Medicare HMO plans, please review the plan of care and approve it. It will need to be FAXED BACK to us at [phone] for Medicare purposes. For Medicare only, by signing this I certify the plan of care. Please let me know if there are questions or concerns regarding this plan of care. Physician Signature: Date:
--- NOTE | 2024-01-26 10:29 | HP.PTDCSUM ---
Discharge Summary D/C summary: It has been my pleasure to treat JOCE JOY referred by KRISTINE Win, with the diagnosis of OSTEOARTHRITIS ,LOCALIZED ,PRIMARY LOWER LEG ,UNILATERAL PRIMARY OA for a total of 16 visit(s). Discharge Date: 01/26/24 Please see the following information for a summary of their discharge status. Subjective Subjective: Doing good , BP is controlled Pain Left Knee: Pain Intensity (Out of 10): 2 Overall Improvement % Improvement: 85 Objective Objective/Function: OSTURE: bilateral knee valgus ,knee flexed GAIT: antalgic gait knee valgus decrease stance time LLE NEURO: denies paresthesia/tingling PALAPTION: unremarkable STAIRS: one steps time with rail AROM: supine knee flexion 0-120 degrees MMT: ( peak force) left quad 28.1,hamstrings 28.8 .hip flexion 9.8 ,hip abduction 15.2 FLEXABLITY: hamstrings min tight Goals Goal 1:: Patient to be I with HEP for knee Goal Progress: Goal Met Goal 2:: Patient to demonstrate 50% improvement with decrease pain and improved function Goal Progress: Goal Met Goal 3:: Patient improve AROM supine knee flexion by 5-10 degrees to improve stairs Goal Progress: Goal Met Goal 4:: Patient to improve LFES score by 5 points to improve QOL and function Goal Progress: Goal Met Goal 5:: Patient to improve peak force quads/hams/hip by 5-10 # to improve function and gait Goal Progress: Goal Met Plan Plan: d/c HEP D/C Information Discharge Comments: HEP d/c sentence: If there are questions or concerns regarding this patient's physical therapy, please feel free to call me at [phone]. Thank you for the referral of this patient. Sincerely, Balta Durán, PT, Cert MDT, OCS Balance/Gait/Functional tests Balance/Special Test Scores Lower Extremity Functional Score: 55 Improvement % Improvement: 85
== END 2024-01-26 19:00 | disposition home or self-care (01) ==
LOC: PT 10:00
PROVIDERS: PCP Nurse Practitioner Family; Referring Provider Nurse Practitioner Acute Care; Visit Provider Nurse Practitioner Acute Care
DX: M17.12 Unilateral primary osteoarthritis, left knee (principal); M25.562 Pain in left knee
CPT/HCPCS: 97110; 97162

== ENCOUNTER 2024-03-21 11:14 | Outpatient (RCR) | payer MEDICAID, SELFPAY | END 2024-03-28 23:59 | LOC: NS 11:14 | PROVIDERS: PCP Family Medicine; Referring Provider Family Medicine; Visit Provider Family Medicine | DX: Z71.3 Dietary counseling and surveillance (principal); E66.9 Obesity, unspecified; E78.5 Hyperlipidemia, unspecified; Z68.41 Body mass index [BMI] 40.0-44.9, adult | CPT/HCPCS: 97803 ==

== ENCOUNTER 2024-04-24 11:53 | Emergency (ER) | payer MEDICAID, SELFPAY ==
[2024-04-24 11:53] VITALS: BP 120/71; PULSE 95; RESP 14; TEMP 36.1; O2SAT 96; BMI 39.9
--- NOTE | 2024-04-24 11:59 | EX.ED.DYSGE1 ---
HPI History of Present Illness Chief Complaint: Flank Pain [facility] Medical History (Updated 04/24/24 @ 14:[address] Josue Apodaca, DO) Osteoarthritis of left knee FAITH (dyspnea on exertion) Chest pressure Wears glasses Wears dentures CPAP (continuous positive airway pressure) dependence Sleep apnea Arthritis Left knee pain Stress incontinence Injury of head and neck Difficulty chewing History of IBS Former smoker BiPAP (biphasic positive airway pressure) dependence Neuropathy Sjogrens syndrome Leg cramps History of edema History of echocardiogram History of stress test History of irregular heartbeat Chronic low back pain Sensory polyneuropathy Elevated hemoglobin A1c Rheumatoid arthritis TROY (obstructive sleep apnea) Urinary incontinence, urge Urinary urgency Urinary frequency PND (post-nasal drip) Bipolar 2 disorder Obesity (BMI 30-39.9) Mild intermittent asthma in adult without complication Mild mitral regurgitation Mild dilation of ascending aorta TROY (obstructive sleep apnea) Depression Right flank pain Spinal stenosis of lumbar region Hypertension Hyperlipidemia GERD (gastroesophageal reflux disease) Asthma OCD (obsessive compulsive disorder) Chest pain Thoracic aortic aneurysm without rupture Paroxysmal atrial tachycardia Nephrolithiasis Bipolar disorder Herpes simplex with unspecified complication Loss of appetite Anxiety Lightheadedness Long-term use of high-risk medication Obesity Hepatitis Sinusitis Eustachian tube dysfunction Otitis media Nightmares Rhinorrhea Segmental and somatic dysfunction of cervical region Segmental and somatic dysfunction of thoracic region Back sprain Epigastric abdominal pain Encounter for screening for malignant neoplasm of colon Home Medications ?Medication ?Instructions ?Recorded ?Last Taken ?Type olanzapine 10 mg tablet 10 mg PO QHS 10/08/20 Unknown History potassium chloride 20 mEq 20 meq PO BID 10/08/20 Unknown History tablet,extended release acetaminophen 500 mg tablet 500 mg PO Q6H PRN pain #30 tabs 03/24/21 Unknown Rx oxybutynin chloride 10 mg 10 mg PO DAILY 07/31/21 Unknown History tablet,extended release 24 hr polyethylene glycol 3350 17 gram 17 g PO DAILY 08/05/21 Unknown History oral powder packet (Miralax) ibuprofen 400 mg tablet 400 mg PO Q6H PRN pain #300 tabs 03/22/23 Unknown Rx duloxetine 30 mg capsule,delayed 30 mg PO BID 07/07/23 Unknown History release omeprazole 40 mg capsule,delayed 40 mg PO DAILY 07/07/23 Unknown History release epinephrine 0.3 mg/0.3 mL 0.3 mg IM ONCE 09/27/23 Unknown History injection, auto-injector linaclotide 290 mcg capsule 290 mcg PO DAILY 09/27/23 Unknown History (Linzess) lisinopril 20 mg tablet 20 mg PO BID 09/27/23 11/29/23 History amlodipine 5 mg tablet 5 mg PO DAILY 09/28/23 11/29/23 History prazosin 1 mg capsule 1 mg PO QHS 09/28/23 Unknown History trazodone 150 mg tablet 150 mg PO DAILY 09/28/23 Unknown History vibegron 75 mg tablet (Gemtesa) 75 mg PO DAILY 11/16/23 Unknown History albuterol sulfate 2.5 mg/3 mL 2.5 mg (3 mL) inhalation Q4-6H PRN 11/21/23 Unknown Rx (0.083 %) solution for nebulization Wheezing #180 mL albuterol sulfate 90 mcg/actuation 1 puff inhalation DAILY #8.5 grams 11/21/23 Unknown Rx aerosol inhaler (ProAir HFA) budesonide-formoterol HFA 160 2 puff inhalation BID #1 ea 11/21/23 Unknown Rx mcg-4.5 mcg/actuation aerosol inhaler (Symbicort) aspirin 81 mg tablet,delayed 81 mg PO DAILY 11/24/23 11/29/23 History release (Adult Aspirin Regimen) guaifenesin 1,200 mg tablet, 1,200 mg PO Q12H #60 tabs 02/06/24 Unknown Rx extended release 12 hr cholecalciferol (vitamin D3) 1,250 1,250 mcg PO .QOTU 04/04/24 Unknown History mcg (50,000 unit) capsule celecoxib 100 mg capsule 100 mg PO BID 04/09/24 Unknown History hydrocodone-acetaminophen 5-325mg 1 tab PO BID PRN 04/09/24 Unknown History 5mg-325mg sulfamethoxazole 800 1 tab PO BID 7 days #14 tabs 04/24/24 Unknown Rx mg-trimethoprim 160 mg tablet (Bactrim DS) Allergy/AdvReac Type Severity Reaction Status Date / Time tramadol (From Ultram) Allergy Intermediate Itching Verified 04/24/24 11:54 acetaminophen (From Percocet) Allergy Mild Itching Verified 04/24/24 11:54 oxycodone (From Percocet) Allergy Mild Itching Verified 04/24/24 11:54 divalproex sodium (From AdvReac Intermediate Other - Verified 04/24/24 11:54 Depakote) nightmares quetiapine (From Seroquel) AdvReac Mild Other - Verified 04/24/24 11:54 shaking, lightheaded and abnormal dreams meloxicam AdvReac Unknown Verified 04/24/24 11:54 Family History Father Cancer Alcoholism Hypertension Mother Heart disease H/O weight disorder Myocardial infarction Hypertension COPD (chronic obstructive pulmonary disease) Skin cancer Sister Hypertension Surgical History Hx of surgical procedure History of bilateral carpal tunnel release H/O eye surgery H/O hand surgery History of total right knee replacement History of appendectomy H/O: hysterectomy Hx laparoscopic cholecystectomy bladder sling removal Social History Smoking Status: Former smoker quit date: 08/29/82 pack-years: 15 second hand exposure: No alcohol intake: never substance use type: does not use EXAM Physical Exam Const Vital Signs: 04/24/24 11:53 04/24/24 14:01 Temperature 97 F L 97.3 F L Temperature Source Temporal Oral Pulse Rate 95 72 Respiratory Rate 14 16 Blood Pressure 120/71 135/69 H Blood Pressure Mean 87 91 Pulse Ox 96 96 Oxygen Delivery Method Room Air Room Air [facility] MDM Narrative Medical decision making narrative: HISTORY OF PRESENT ILLNESS: 69-year-old female presents with left flank pain/left lower abdominal pain. The patient further states 4 days ago she developed sharp pain in the left lower quadrant of the abdomen. Does radiate to the left flank area. Notes history of kidney stones but this feels different. Denies back pain. Denies any focal loss of movement or sensation in the legs. Denies fever, vomiting. Denies chest pain or shortness of breath. Notes history of multiple abdominal surgeries. Last bowel was yesterday. No melena hematochezia noted. Denies dysuria, frequency, urgency or hematuria. Denies any bulges or other signs of hernia. REVIEW OF SYSTEMS: Pertinent positives: Abdominal pain Pertinent negatives: Nausea, vomiting, urinary complaints PHYSICAL EXAM: Nursing triage notes reviewed, Vital signs reviewed Constitutional: please see mdm HENT: MMM Eyes: Pupils equal round and reactive to light, Extraocular muscles intact Neck: No stridor, no JVD, full neck ROM Lungs: Clear to auscultation, No wheezing or rales. No increased work of breathing, no conversational dyspnea, no accessory muscle use, no nasal flaring. No respiratory distress noted Heart: Regular rate and rhythm, No murmurs, No rubs and No gallops, 2+ distal pulses (radial, femoral, posterior tibial) in all extremities Abdomen: Soft, TTP in left lower quadrant, but no rigidity, rebound or guarding, no obvious peritoneal signs, no palpable pulsatile abdominal masses, no auscultated abdominal bruit : No CVAT Extremities: No edema Neuro: No focal neurological deficits, cranial nerves II through XII intact, 5/5 strength in all extremities. Intact sensation to light touch in all extremities, 2+ reflexes bilateral patella tendons. Normal gait. No ataxia. Skin: No rash or lesions noted MEDICAL DECISION MAKING: Chief Complaint: Left flank pain External records reviewed: Imaging reviewed: CT scan of the abdomen from 2016 is notable for signs of cholecystectomy. Otherwise unremarkable Factors affecting care: History of epigastric abdominal pain, hypertension Social determinants of health: n history of mental health disorder History obtained from others: none Consults: none [facility] Narrative: The patient was initially hemodynamically stable, afebrile and nontoxic-appearing. Exam with left lower quadrant TTP but no obvious CVAT. No hernia. No peritoneal signs I considered the following differential diagnosis: Nephrolithiasis, pyelonephritis, musculoskeletal etiology, AAA, UTI I obtained a broad lab and imaging workup for elucidate etiology of the patient complaint ALL IMAGES (IF OBTAINED) HAVE BEEN PERSONALLY REVIEWED AND INTERPRETED BY MYSELF. Urinalysis with evidence of infection suggestive of pyelonephritis versus infected kidney stone CBC with leukocytosis suggestive of system information, stable anemia, no thrombocytopenia CT scan of the abdomen pelvis shows no evidence of nephrolithiasis, diverticulitis, intra-abdominal abscess. BMP with mild hyponatremia, no signs of endorgan hypoperfusion within normal anion gap, no signs of metabolic acidosis with a normal bicarb, no CECILLE LFTs show no evidence of hepatobiliary pathology. The synthesis of the patient's history, physical exam, labs images suggest likely pyelonephritis. Patient was vomiting today but tolerate p.o. Will give Bactrim (800/160 for 7 days) and send urine for culture. The patient and/or family, caregivers express understanding. The patient and/or family, caregivers agrees with the plan. Shared decision making: I will have a discussion with the patient and or visitors regarding risk/benefits of further testing or admission. They will be made aware of of the risk/benefits inherent in this decision they will be given the opportunity to voice understanding. Total critical care time today provided was at least 0 [] minutes. This excludes separately billable procedures. Critical care time (if documented) is secondary to the patient having high probability of clinically significant/life threatening deterioration in the patient's condition which required my urgent intervention. Impression: 1. Left lower quadrant abdominal pain 2. History of nephrolithiasis Dispo: [] This note was generated with [employer] dictation software. It may contain incorrect words, spelling, and punctuation that were not noted in review of the chart prior to signing. Lab Data Labs: Laboratory Results - last 24 hr 04/24/24 12:19 WBC 13.6 H RBC 4.09 L Hgb 10.4 L Hct 35.7 L MCV 87.3 MCH 25.4 L MCHC 29.1 L RDW Std Deviation 58.1 H RDW Coeff of Jeramy 18.3 H Plt Count 402 MPV 8.6 Immature Gran % (Auto) 0.600 Neut % (Auto) 59.9 Lymph % (Auto) 30.0 Bath % (Auto) 8.5 Eos % (Auto) 0.7 Baso % (Auto) 0.3 Absolute Neuts (auto) 8.2 H Absolute Lymphs (auto) 4.08 Nucleated RBC % 0 Sodium 135 L Potassium 4.4 Chloride 106 Carbon Dioxide 21.0 Anion Gap 8 BUN 23 H Creatinine 0.71 Estim Creat Clear Calc 76.84 Est GFR (MDRD) Af Amer 105 Est GFR (MDRD) Non-Af 87 BUN/Creatinine Ratio 32.4 H Glucose 101 Calcium 9.9 Total Bilirubin 0.30 AST 24 ALT 17 Alkaline Phosphatase 84 Total Protein 7.8 Albumin 3.2 Globulin 4.6 H Albumin/Globulin Ratio 0.7 L Lipase 25 Urine Color Yellow Urine Clarity Sl. Cloudy Urine pH 6.0 Ur Specific [place] 1.020 Urine Protein 30 H Urine Glucose (UA) Normal Urine Ketones Negative Urine Occult Blood 10 H Urine Nitrite Positive H Urine Bilirubin Negative Urine Urobilinogen Normal Ur Leukocyte Esterase 500 H Urine RBC 0 SEEN Urine WBC 10-25 SEEN Ur Squamous Epith Cells 0 SEEN Urine Bacteria 0 SEEN Urine Mucus 0 SEEN Radiography Diagnostic Testing: Clinical Impression(s) from Imaging Studies Abdomen/Pelvis CT 04/24/24 12:08 IMPRESSION: No obstructive uropathy is seen. Scattered sigmoid diverticula. Electronically Signed: Tahir Boone MD at 13:28 EDT , Discharge Plan Triage Chief Complaint: Flank Pain ED Provider: Josue Apodaca Dx/Rx/DC Orders Clinical Impression: Pyelonephritis Instructions: ED Pyelonephritis, Female (Adult) Prescriptions: New sulfamethoxazole-trimethoprim [Bactrim DS] 800-160 mg tablet 1 tab PO BID 7 Days Qty: 14 0RF No Action olanzapine 10 mg tablet 10 mg PO QHS potassium chloride 20 mEq tablet extended release 20 meq PO BID cholecalciferol (vitamin D3) 1,250 mcg (50,000 unit) capsule 1,250 mcg PO .QOTU oxybutynin chloride 10 mg tablet extended release 24hr 10 mg PO DAILY epinephrine 0.3 mg/0.3 mL auto-injector 0.3 mg IM ONCE Rx Instructions: as a single dose; may repeat once Linzess 290 mcg capsule 290 mcg PO DAILY lisinopril 20 mg tablet 20 mg PO BID prazosin 1 mg capsule 1 mg PO QHS trazodone 150 mg tablet 150 mg PO DAILY amlodipine 5 mg tablet 5 mg PO DAILY Gemtesa 75 mg tablet 75 mg PO DAILY hydrocodone-acetaminophen 5-325 mg tablet 1 tab PO BID PRN celecoxib 100 mg capsule 100 mg PO BID acetaminophen 500 mg tablet 500 mg PO Q6H PRN (Reason: pain) Qty: 30 0RF polyethylene glycol 3350 [Miralax] 17 gram Powder In Packet 17 g PO DAILY ibuprofen 400 mg tablet 400 mg PO Q6H PRN (Reason: pain) Qty: 300 0RF omeprazole 40 mg capsule,delayed release(DR/EC) 40 mg PO DAILY duloxetine 30 mg capsule,delayed release(DR/EC) 30 mg PO BID budesonide-formoterol [Symbicort] 160-4.5 mcg/actuation HFA aerosol inhaler 2 puff inhalation BID Qty: 1 3RF Rx Instructions: administer with spacer, rinse mouth after each use albuterol sulfate 2.5 mg /3 mL (0.083 %) solution for nebulization 2.5 mg inhalation Q4-6H PRN (Reason: Wheezing) Qty: 180 2RF albuterol sulfate [ProAir HFA] 90 mcg/actuation HFA aerosol inhaler 1 puff INHALATION DAILY Qty: 8.5 3RF aspirin [Adult Aspirin Regimen] 81 mg tablet,delayed release (DR/EC) 81 mg PO DAILY guaifenesin 1,200 mg tablet extended release 12hr 1,200 mg PO Q12H Qty: 60 6RF Primary Care Provider: Bay Ramos Referrals: Bay Ramos, [Primary Care Provider] - Activity Restrictions/Additional Instructions: Thank you for trusting us with your care today! You may diagnose with pyelonephritis which is infection of your urinary tract Please take Tylenol (2 pills, 650 mg), ibuprofen (2 pills, 400 mg) every 6 hours as needed for pain and fever control. Please take antibiotics until course complete Please return to the emergency department if your symptoms change or worsen. Specifically if you cannot tolerate antibiotics mouth. Please follow with your primary care physician for further outpatient evaluation and management. Print Language: Turkmen Disposition Disposition: Home, Self Care
--- NOTE | 2024-04-24 12:08 | CT_ITS ---
STUDY: CT ABDOMEN AND PELVIS WITH CONTRAST REASON FOR EXAM: Female, 69 years old. Left lower quadrant TTP. One-week history of left flank pain. RADIATION DOSAGE (If Supplied By Facility): CTDIvol = ( 18.72 ) mGy, DLP = ( 1334.06 ) mGycm TECHNIQUE: Transaxial images were obtained from the dome of the diaphragm to the symphysis pubis without oral contrast. IV 100mL Isovue-370 was administered. Sagittal and coronal images were reconstructed. Individualized dose optimization techniques were used for this CT. COMPARISON: Comparison is made with prior study dated December 10, 2015. FINDINGS: The visualized lung bases are unremarkable. Coronary artery calcification. There is decreased attenuation of the liver consistent with steatosis. There are surgical clips in the gallbladder fossa consistent with a prior cholecystectomy. Normal spleen. Normal pancreas. Normal bilateral adrenal glands. Normal right kidney. Atherosclerotic calcific plaque seen within the right intrarenal arterial branch. Normal left kidney. Normal visualized stomach. Normal small intestine. There are scattered colonic diverticula consistent with diverticulosis. The patient is status post appendectomy. There is scattered atherosclerotic calcification of the abdominal aorta, without a demonstrated aneurysm. Normal inferior vena cava. Normal retroperitoneum. Normal urinary bladder. There is absence of the uterus consistent with a prior hysterectomy. Calcified phleboliths are seen in the pelvis more prominent on the right side. Spinal cord stimulation device is seen within the left lower posterior abdominal wall. There are degenerative changes of the visualized lumbar spine. CT/Abdomen/Pelvis W IV Cont ONLY IMPRESSION: No obstructive uropathy is seen. Scattered sigmoid diverticula. Electronically Signed: Tahir Boone MD at 13:28 EDT ,
[2024-04-24 12:23] LABS: Bacteria 0 SEEN /hpf (None Seen); Mucous, Urine 0 SEEN /hpf (<or=2+); Red Blood Cells-Urine 0 SEEN /hpf (0-5); Squamous Epithelial Cells - UA 0 SEEN /hpf (5-10)
[2024-04-24 12:28] LABS: Absolute Lymphocyte Count 4.08 X10^3/uL (0.83-4.51); Absolute Neutrophil Count 8.2 X10^3/uL (2.0-7.7); Basophil# 0.04 X10^3/uL; Basophil% 0.3 % (0-1); Eosinophils% 0.7 % (0-5); Hematocrit 35.7 % (37-47); Hemoglobin 10.4 g/dL (12.0-15.0); Lymphocyte # 4.08 X10^3/ul (0.83-4.51); Mean Corp Hgb Conc 29.1 g/dL (32-36); Mean Corpuscular Hgb 25.4 pg (27.0-32.0); Mean Corpuscular Volume 87.3 fL (81-99); Mean Platelet Vol. 8.6 fl (6.2-12.0); Monocyte# 1.16 X10^3/uL; Monocyte% 8.5 % (0-10); NRBC Flagged by Analyzer 0 % (0-5); Neutrophil # 8.15 X10^3/uL (2.7-7.7); Neutrophil % 59.9 % (47-70); Platelet Count 402 K/mm3 (150-450); RBC Distribution Width CV 18.3 % (11.6-14.6); RBC Distribution Width SD 58.1 fl (35.1-43.9); Red Blood Count 4.09 M/mm3 (4.2-5.4); White Blood Count 13.6 K/mm3 (4.4-11.0)
[2024-04-24] MEDS: 0.9% Normal Saline (1000mL) 1,000 ML 999 ML IV (12:28)
[2024-04-24] MEDS: Ketorolac 15 MG/ML Vial IV (12:28)
[2024-04-24 12:29] LABS: Color, Urine Yellow (Yellow); Glucose, Dipstick Normal (Normal); Ketone-Dipstick Negative (Negative); Leukocyte Esterase-Dipstick 500 /ul (Negative); Nitrite-Dipstick Positive (Negative); Occult Blood-Urine 10 /ul (Negative); Protein-Dipstick 30 mg/dl (Negative); Urine Bilirubin Dipstick Negative (Negative); Urine Clarity Sl. Cloudy (Clear); Urine Urobilinogen Normal (Normal)
[2024-04-24] MEDS: Ondansetron 4 MG/2 ML Vial IV (12:29)
[2024-04-24 12:47] LABS: White Blood Cells 10-25 SEEN /hpf (0-5)
[2024-04-24 12:52] LABS: ALB/GLOB Ratio 0.7 RATIO (0.9-2.4); AST(SGOT) 24 U/L (15-37); Alanine Aminotransfer ALT/SGPT 17 U/L (13-56); Albumin, Serum 3.2 g/dL (3.2-5.0); Alkaline Phosphatase 84 U/L (45-117); Anion Gap 8 (5-15); BUN 23 mg/dL (7-18); BUN/Creat Ratio 32.4 RATIO (10-20); Calcium,Total 9.9 mg/dL (8.5-10.1); Chloride 106 mmol/L (98-107); Creatinine, Serum 0.71 mg/dL (0.55-1.02); EST Glomerular Filtration Rate 87 mL/min (>60); Est Glom Filt Rate - Afr Amer 105 mL/min (>60); Estimated Creatinine Clearance 76.84 ml/min; Globulin 4.6 g/dL (2.2-4.2); Glucose 101 mg/dL (74-106); Lipase 25 U/L (13-75); Potassium 4.4 mmol/L (3.5-5.1); Protein, Total 7.8 g/dL (6.4-8.2); Sodium Level 135 mmol/L (136-145)
[2024-04-24 14:01] VITALS: BP 135/69; PULSE 72; RESP 16; TEMP 36.3; O2SAT 96
[2024-04-24] MEDS: Smz/Tmp Ds Tablet 1 TABLET PO (14:32)
[2024-04-24 14:37] VITALS: BP 128/81; PULSE 80; RESP 19; TEMP 36.2; O2SAT 100
== END 2024-04-24 14:38 | disposition home or self-care (01) ==
PROVIDERS: Emergency Provider Emergency Medicine; PCP Family Medicine; Visit Provider Emergency Medicine
DX: N12 Tubulo-interstitial nephritis, not specified as acute or chronic (principal); G47.33 Obstructive sleep apnea (adult) (pediatric); Z87.891 Personal history of nicotine dependence
CPT/HCPCS: 74177; 80053; 81001; 83690; 85025; 87086; 87088; 87186; 96374; 96375; 99283; J7030; Q9967; A4216; J2405

== ENCOUNTER 2024-04-25 10:16 | Outpatient (RCR) | payer MEDICAID, SELFPAY | END 2024-04-28 23:59 | LOC: NS 10:16 | PROVIDERS: PCP Family Medicine; Referring Provider Family Medicine; Visit Provider Family Medicine | DX: Z71.3 Dietary counseling and surveillance (principal); E66.9 Obesity, unspecified; E78.5 Hyperlipidemia, unspecified; Z68.39 Body mass index [BMI] 39.0-39.9, adult | CPT/HCPCS: 97803 ==

== ENCOUNTER → 2024-04-25 | Outpatient (CLI) | payer MEDICAID, SELFPAY | END | disposition home or self-care (01) | LOC: PSN 10:16 | PROVIDERS: PCP Family Medicine; Referring Provider Nurse Practitioner Gerontology; Visit Provider Nurse Practitioner Gerontology | DX: R42 Dizziness and giddiness (principal) | CPT/HCPCS: 93225; 93226 ==

== ENCOUNTER 2024-05-30 09:36 | Outpatient (RCR) | payer MEDICAID, SELFPAY | END 2024-06-28 23:59 | LOC: NS 09:36 | PROVIDERS: PCP Family Medicine; Referring Provider Family Medicine; Visit Provider Family Medicine | DX: Z71.3 Dietary counseling and surveillance (principal); E66.01 Morbid (severe) obesity due to excess calories; Z68.39 Body mass index [BMI] 39.0-39.9, adult | CPT/HCPCS: 97803 ==

== ENCOUNTER 2024-07-03 14:00 | Outpatient (RCR) | payer MEDICAID, SELFPAY ==
--- NOTE | 2024-05-01 15:02 | HP.PTEVAL_ITS ---
Patient's Visit Information Visit Information Visit Information: JOCE JOY is a 69 year old F referred to Physical Therapy by Dr. John Agee DO with a diagnosis of L knee OA. Date of Evaluation: 05/01/24 Physical Therapist: Samy Jade, PT, ATC Visit Plan Frequency: 2-3x /Week Duration: 4-6 Weeks Plan: L LE strengthening, balance and proprio, core stab ex's, nustep, and HEP Subjective Subjective: Pt reports she has had L knee pain for several years. Pt reports she had x-rays which revealed DJD in L knee. Pt reports she had 3 knee injections of Synvisc which helped at first, but her pain returned. Pt reports her pain is intermittent in nature. Pt reports she is going to get a steroid injection in the near future. Pt reports increased pain with prolonged walking and with prolonged sitting. Pt notes it is difficult for her to stand upright after sitting for a prolonged period of time secondary to pain. Pt lives in a ranch style house and has 4 steps to enter her house. Pt reports she has difficulty with negotiating her steps secondary to pain. 0/10 pain while sitting here in the clinic at rest, 7/10 pain at its worst. No sleep difficulty at this time secondary to L knee pain. Pt does have a PMHx of falls on several occasions Pain L knee pain: Pain Intensity (Out of 10): 0 Pain Intensity Range: 7 Objective Objective: Neuro: B LE sensation is WNL to light touch. B patellar reflex= 1/3 Palpation: Pt is very tender along the medial joint line of L knee. No obvious deformity at this time. ROM: R knee 0-105 degrees ; L knee 0-105 degrees MMT: R knee flex= 25, ext= 46 #F; L knee flex= 5, ext= 14 #F TU.[id number] Balance/Special Test Scores Lower Extremity Functional Score: 23 Goals Goal 1:: Decrease L knee pain x 50% to aid with ambulation Goal Time Frame: 4-6 Weeks Goal 2:: Increase L knee strength flex and ext x 5 #F to aid with stair negotiation. Goal Time Frame: 4-6 Weeks Goal 3:: Pt will perform TUG test in under 10 seconds to aid with community mobility Goal Time Frame: 4-6 Weeks Goal 4:: I with HEP Goal Time Frame: 4-6 Weeks Rehabilitation Potential Physical Therapy Diagnosis: Pt has L knee pain, weakness, and intolerance for prolonged ambulation secondary to L knee OA Rehabilitation Potential: Good Anticipated Interventions Patient/Client Instruction: Educate patient on: Condition and Plan of Care For the Purpose of:: To improve self management Therapeutic Exercise to Include: Strength training, Balance training, Flexibilty training, Gait and locomotor training and Dynamic Lumbar Stabilization For the Purpose of:: To decrease pain, To improve muscle performance and motor function and To increase tolerance to activity/condition/position Cryotherapy (ice pack, ice massage): Yes For the Purpose of:: To decrease pain Text: Thank you for the opportunity to evaluate your patient. For Medicare and Medicare HMO plans, please review the plan of care and approve it. It will need to be FAXED BACK to us at [phone] for Medicare purposes. For Medicare only, by signing this I certify the plan of care. Please let me know if there are questions or concerns regarding this plan of care. Physician Signature: Da te:
== END 2024-07-03 19:00 | disposition home or self-care (01) ==
LOC: PT 14:00
PROVIDERS: PCP Family Medicine; Referring Provider Orthopaedic Surgery; Visit Provider Orthopaedic Surgery
DX: M17.12 Unilateral primary osteoarthritis, left knee (principal)
CPT/HCPCS: 97110; 97161; 97530

== ENCOUNTER 2024-07-04 09:37 | Outpatient (RCR) | payer MEDICAID, SELFPAY | END 2024-07-28 23:59 | LOC: NS 09:37 | PROVIDERS: PCP Family Medicine; Referring Provider Family Medicine; Visit Provider Family Medicine | DX: Z71.3 Dietary counseling and surveillance (principal); E66.01 Morbid (severe) obesity due to excess calories; Z68.39 Body mass index [BMI] 39.0-39.9, adult | CPT/HCPCS: 97803 ==

== ENCOUNTER → 2024-07-25 | Outpatient (CLI) | payer MEDICAID, SELFPAY ==
--- NOTE | 2024-07-25 10:18 | BI_ITS ---
MAMMOGRAPHY - BILATERAL SCREENING 3-D TOMOSYNTHESIS REASON FOR EXAM: Female, 69 years old. Routine screening PERTINENT HISTORY: No significant family history. TECHNIQUE: 2-D mammograms and 3-D Tomosynthesis of the breast (s) were performed. CAD was performed. COMPARISON: 07/12/2022 FINDINGS: The breast composition is almost entirely fat. Scattered benign calcifications are seen. No dense spiculated masses or suspicious microcalcifications are identified. No architectural distortion is identified. There is no skin thickening or retraction. There has been no significant change since the prior study. BI/SCRN MAMM (CAD)W/ERIC BILAT IMPRESSION: No mammographic signs of malignancy. Routine yearly mammograms recommended. ASSESSMENT CATEGORY: BIRADS Category 1: Negative. A letter regarding these results will be sent to the patient by the facility within 30 days. FOLLOW UP RECOMMENDATION: Yearly follow up mammogram recommended. (A) Approximately 10% of breast cancers are not detected by mammography. A normal mammogram should not delay biopsy of a clinically suspicious abnormality. Electronically Signed: Db Villalpando MD at 10:57 EST ,
== END | disposition home or self-care (01) ==
LOC: OPBI 10:13
PROVIDERS: PCP Family Medicine; Referring Provider Family Medicine; Visit Provider Family Medicine
DX: Z12.31 Encounter for screening mammogram for malignant neoplasm of breast (principal)
CPT/HCPCS: 77063; 77067

== ENCOUNTER 2024-08-06 09:38 | Outpatient (RCR) | payer MEDICAID, SELFPAY | END 2024-08-28 23:59 | LOC: NS 09:38 | PROVIDERS: PCP Family Medicine; Referring Provider Family Medicine; Visit Provider Family Medicine | DX: Z71.3 Dietary counseling and surveillance (principal); E66.01 Morbid (severe) obesity due to excess calories; Z68.41 Body mass index [BMI] 40.0-44.9, adult | CPT/HCPCS: 97803 ==

== ENCOUNTER → 2024-08-16 | Outpatient (CLI) | payer MEDICAID, SELFPAY ==
[2024-08-16 12:28] LABS: Absolute Neutrophil Count 3.3 X10^3/uL (2.0-7.7); Basophil# 0.02 X10^3/uL; Basophil% 0.3 % (0-1); Eosinophil# 0.11 X10^3/uL; Eosinophils% 1.8 % (0-5); Hematocrit 34.6 % (37-47); Hemoglobin 9.8 g/dL (12.0-15.0); Lymphocyte % 33.7 % (19-41); Mean Corp Hgb Conc 28.3 g/dL (32-36); Mean Corpuscular Hgb 24.3 pg (27.0-32.0); Mean Corpuscular Volume 85.9 fL (81-99); Mean Platelet Vol. 8.2 fl (6.2-12.0); Monocyte# 0.72 X10^3/uL; Monocyte% 11.5 % (0-10); NRBC Flagged by Analyzer 0 % (0-5); Neutrophil # 3.28 X10^3/uL (2.7-7.7); Neutrophil % 52.5 % (47-70); Platelet Count 426 K/mm3 (150-450); RBC Distribution Width CV 16.4 % (11.6-14.6); RBC Distribution Width SD 51.8 fl (35.1-43.9); Red Blood Count 4.03 M/mm3 (4.2-5.4); White Blood Count 6.2 K/mm3 (4.4-11.0)
[2024-08-16 12:55] LABS: ALB/GLOB Ratio 0.8 RATIO (0.9-2.4); AST(SGOT) 20 U/L (15-37); Alanine Aminotransfer ALT/SGPT 19 U/L (13-56); Albumin, Serum 3.6 g/dL (3.2-5.0); Alkaline Phosphatase 91 U/L (45-117); Anion Gap 4 (5-15); BUN 17 mg/dL (7-18); BUN/Creat Ratio 25.1 RATIO (10-20); Calcium,Total 9.5 mg/dL (8.5-10.1); Chloride 102 mmol/L (98-107); Creatinine, Serum 0.68 mg/dL (0.55-1.02); EST Glomerular Filtration Rate 92 mL/min (>60); Est Glom Filt Rate - Afr Amer 111 mL/min (>60); Globulin 4.6 g/dL (2.2-4.2); Glucose 81 mg/dL (74-106); Potassium 4.4 mmol/L (3.5-5.1); Protein, Total 8.2 g/dL (6.4-8.2); Sodium Level 135 mmol/L (136-145)
[2024-08-16 13:29] LABS: Hepatitis B Surface Antibody Non-Reactive; Hepatitis B Surface Antigen Non-Reactive (Nonreactive); Hepatitis C Antibody Non-Reactive (Nonreactive)
[2024-08-17 06:08] LABS: Hepatitis A AB, Total Negative (Negative); Hepatitis B Core Ab Total Negative (Negative)
== END | disposition home or self-care (01) ==
PROVIDERS: PCP Family Medicine; Referring Provider Nurse Practitioner Acute Care; Visit Provider Nurse Practitioner Acute Care
DX: R10.31 Right lower quadrant pain (principal); K59.00 Constipation, unspecified; D64.9 Anemia, unspecified; R19.8 Other specified symptoms and signs involving the digestive system and abdomen; K76.0 Fatty (change of) liver, not elsewhere classified
CPT/HCPCS: 36415; 80053; 85025; 86704; 86706; 86708; 86803; 87340

== ENCOUNTER → 2024-08-21 | Outpatient (CLI) | payer MEDICAID, SELFPAY ==
--- NOTE | 2024-08-21 13:18 | RAD_ITS ---
HISTORY: LUMBAR DEGENERATIVE DISC DISEASE. TECHNIQUE: XR Spine Lumbar 2 or 3 Views. COMPARISON: 11/13/2015. FINDINGS: VERTEBRAE: Vertebral body heights preserved. Posterior elements appear intact. ALIGNMENT: No significant anterior or posterior subluxation. Very mild levocurvature. INTERVERTEBRAL DISCS: Degenerative endplate changes with osteophytes at multiple levels particularly L5-S1. SOFT TISSUES: Sacral stimulator noted. RAD/Lumbar Spine 2 or 3 Views IMPRESSION: No acute fracture or dislocation identified in the lumbar spine. Multilevel degenerative change. Electronically Signed: Eileen Valencia MD at 13:56 EST ,
== END | disposition home or self-care (01) ==
LOC: RAD 13:17
PROVIDERS: PCP Family Medicine; Referring Provider Clinical Nurse Specialist Adult Health; Visit Provider Clinical Nurse Specialist Adult Health
DX: M51.369 Other intervertebral disc degeneration, lumbar region without mention of lumbar back pain or lower extremity pain (principal)
CPT/HCPCS: 72100

== ENCOUNTER 2024-08-30 08:40 | Day surgery (SDC) | payer MEDICAID, SELFPAY ==
--- NOTE | 2024-08-28 15:38 | PAT.ANESEVAL ---
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 When Was Last Pacemaker Check QUESTION #4 FULL TEXT: You/Your Family Experience fever (hyperthermia) with Anesthesia Last Oral Intake Last Oral intake: Last Oral Intake NPO since Meds taken in AM with sips of water? Meds patient instructed to take am of surgery PONV PONV - payroll secretary: PONV - payroll secretary Female Yes 08/28/24 12:44 HX of Motion Sickness No 08/28/24 12:44 HX of N/V After Surgery No 08/28/24 12:44 Non-Smoker Yes 08/28/24 12:44 Duration of Surgery greater No 08/28/24 12:44 than 60 minutes Number of Risk Factors 2 08/28/24 12:44 PONV Score Moderate Risk 08/28/24 12:44 Height & Weight Height & Weight: Anesthesia: Height & Weight Height 5 ft 3 in 08/16/24 10:39 Respiratory Assessment Respiratory Assessment - payroll secretary: Respiratory Tract Infection Hx - payroll secretary Hx Respiratory Tract Infection No 08/28/24 12:44 STOP Sleep Apnea STOP Sleep Apnea - payroll secretary: STOP Sleep Apnea - payroll secretary Hx Hypertension Yes: CONTROLLED WITH MED 08/28/24 12:44 Hx Sleep Apnea Yes 08/28/24 12:44 CPAP Yes: NON COMPLIANT 08/28/24 12:44 BIPAP No 08/28/24 12:44 Do you snore loudly (louder than talking or can be heard Do you often feel tired/ fatigued/ sleepy during daytime? Has anyone observed you stop breathing during sleep? STOP Results Positive 08/28/24 12:44 QUESTION #5 FULL TEXT : Do you snore loudly (louder than talking or can be heard through closed doors)? 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 secretary: Tobacco Use History - payroll secretary Tobacco Use Smoking Status Former smoker 08/28/24 12:44 Hx Tobacco Use No 08/28/24 12:44 Years Smoking Packs Smoked per Day Smoking Cessation Date was No - quit smoking greater 08/28/24 12:44 within the last 15 years than 15 years ago Hx Smoking Cessation Date 04/05/83 08/28/24 12:44 Hx Smoking Cessation Counseling Hematologic Medial History Hematologic Hx - payroll secretary: Hematologic Medical Hx - care program resident Hx of Blood Transfusion Yes 08/28/24 12:44 Hx of Transfusion in last 3 No 08/28/24 12:44 Months Date of Last Transfusion (if within last 3 months) Ever experience any problems No 08/28/24 12:44 with transfusion(s)? Specify any problems Hx of Preganancy in last 3 No 08/28/24 12:44 Months Nurse Filling Out Transfusion DSCHRIBER 08/28/24 12:44 & Questions: Date: 08/28/24 08/28/24 12:44 Time: 12:45 08/28/24 12:44 Patient unable to answer at this time (ie. confused, unrespo /Reproduction History /Reproductive History - payroll secretary: /Reproductive Hx- payroll secretary Hx Now Gestational Age (in weeks): EDC: Hx Hx Para Hx Section SAB [facility] Medical History (Updated 08/28/24 @ 12:50 by Concepcion Ricardo) Cardiology follow-up encounter History of Holter monitoring Pain FAITH (dyspnea on exertion) Chest pressure Wears glasses Wears dentures CPAP (continuous positive airway pressure) dependence Arthritis Osteoarthritis of left knee Left knee pain Stress incontinence Difficulty chewing History of IBS Former smoker Neuropathy Sjogrens syndrome Leg cramps History of edema History of echocardiogram History of stress test History of irregular heartbeat Chronic low back pain Sensory polyneuropathy Elevated hemoglobin A1c Rheumatoid arthritis TROY (obstructive sleep apnea) Urinary incontinence, urge Urinary urgency Urinary frequency PND (post-nasal drip) Bipolar 2 disorder Obesity (BMI 30-39.9) Mild intermittent asthma in adult without complication Mild mitral regurgitation Mild dilation of ascending aorta TROY (obstructive sleep apnea) Depression Right flank pain Spinal stenosis of lumbar region Hypertension Hyperlipidemia GERD (gastroesophageal reflux disease) Asthma OCD (obsessive compulsive disorder) Chest pain Thoracic aortic aneurysm without rupture Paroxysmal atrial tachycardia Nephrolithiasis Herpes simplex with unspecified complication Loss of appetite Anxiety Lightheadedness Long-term use of high-risk medication Obesity Sinusitis Eustachian tube dysfunction Otitis media Nightmares Rhinorrhea Segmental and somatic dysfunction of cervical region Segmental and somatic dysfunction of thoracic region Back sprain Epigastric abdominal pain Encounter for screening for malignant neoplasm of colon Home Medications ?Medication ?Instructions ?Recorded ?Last Taken ?Type olanzapine 10 mg tablet 10 mg PO QHS 10/08/20 Unknown History potassium chloride 20 mEq 20 meq PO BID 10/08/20 Unknown History tablet,extended release acetaminophen 500 mg tablet 500 mg PO Q6H PRN pain #30 tabs 03/24/21 Unknown Rx oxybutynin chloride 10 mg 10 mg PO DAILY 07/31/21 Unknown History tablet,extended release 24 hr duloxetine 30 mg capsule,delayed 30 mg PO BID 07/07/23 Unknown History release trazodone 150 mg tablet 150 mg PO QHS 09/28/23 Unknown History vibegron 75 mg tablet (Gemtesa) 75 mg PO DAILY 11/16/23 Unknown History aspirin 81 mg tablet,delayed 81 mg PO DAILY 11/24/23 08/28/24 History release (Adult Aspirin Regimen) cholecalciferol (vitamin D3) 1,250 1,250 mcg PO .QOTU 04/04/24 Unknown History mcg (50,000 unit) capsule celecoxib 100 mg capsule 100 mg PO BID PRN pain 04/09/24 Unknown History lisinopril 20 mg tablet 10 mg PO BID 08/16/24 Unknown History lubiprostone 24 mcg capsule 24 mcg PO BID constipation #180 08/16/24 Unknown Rx (Amitiza) caps ondansetron 4 mg disintegrating 4 mg PO Q8H PRN nausea and vomiting 08/16/24 Unknown History tablet pantoprazole 40 mg tablet,delayed 40 mg PO QDAY 08/16/24 Unknown History release polyethylene glycol 3350 17 gram 17 g PO DAILY PRN constipation 08/16/24 Unknown History oral powder packet (Miralax) guaifenesin 1,200 mg tablet, 1,200 mg PO Q12H #60 tabs 08/20/24 Unknown Rx extended release 12 hr Allergy/AdvReac Type Severity Reaction Status Date / Time tramadol (From Ultram) Allergy Intermediate Itching Verified 08/28/24 12:38 acetaminophen (From Percocet) Allergy Mild Itching Verified 08/28/24 12:38 oxycodone (From Percocet) Allergy Mild Itching Verified 08/28/24 12:38 cephalexin (From Keflex) Allergy Rash Verified 08/28/24 12:38 flurazepam (From Dalmane) Allergy Other Verified 08/28/24 12:38 divalproex sodium (From AdvReac Intermediate Other - Verified 08/28/24 12:38 Depakote) nightmares quetiapine (From Seroquel) AdvReac Mild Other - Verified 08/28/24 12:38 shaking, lightheaded and abnormal dreams meloxicam AdvReac Unknown Verified 08/28/24 12:38 Family History Father Cancer Alcoholism Hypertension Mother Heart disease H/O weight disorder Myocardial infarction Hypertension COPD (chronic obstructive pulmonary disease) Skin cancer Sister Hypertension Surgical History (Updated 08/28/24 @ 12:50 by Concepcion Ricardo) Hx of cystoscopy History of cardiac catheterization Hx of surgical procedure bladder sling removal History of bilateral carpal tunnel release H/O eye surgery H/O hand surgery History of total right knee replacement History of appendectomy H/O: hysterectomy Hx laparoscopic cholecystectomy Social History Smoking Status: Former smoker quit date: 08/29/82 pack-years: 15 second hand exposure: No alcohol intake: never substance use type: does not use Audit: Pertinent Findings Pertinent Findings EKG Perinent findings: NSR 07/2015 Stress test pertinent findings: 11/11/2023 EF 76% negative Echo (EF%) pertinent findings: Normal size ejection fraction 65% pulmonary artery pressure 23 08/18/2023 Consult pertinent findings: Cardiology 04/04/2024 chronic chest pain after cardiac work of does not believe cardiac related hypertension chronic Additional pertinent findings: HB 9.8 chronic anemia Recommendation Anesthesia Recommendation Anesthesia recommendation: OPTIMIZED for anesthesia
[2024-08-30] VITALS (8 sets, daily range): BP systolic 112–122; BP diastolic 61–73; PULSE 68–80; RESP 16–18; TEMP 36.6–36.8; O2SAT 99–100; BMI 39.9
--- NOTE | 2024-08-30 08:49 | PCM.HP.STD ---
[facility] - General General Date of Admission: 08/30/24 Date of Service: 08/30/24 Chief Complaint: abdominal pain and constipation HPI Narrative JOCE JOY, is a 69y/o female presents for consultation with complaints of constipation and RLQ pain. CT A&P with contrast was completed 04/24/2024 revealed liver steatosis. She reports a long history of constipation currently failing Miralax and Linzess, and previously failed Lactulose. She reports going up to a week without a bowel movement. Denies any bleeding or weight loss. She is on several medications which can contribute to constipation (gabapentin, oxybutynin, olanzapine) and has a spinal cord stimulator. We have discussed the importance of a high fiber diet. She will discontinue Linzess and Miralax and start Amitiza BID. I have scheduled her for an ARM and colonoscopy. In terms of steatosis noted on prior CT, I have ordered labs and Elastography. LABS 04/24/2024 WBC 13.6, HGB 10.4, MCV normal, Na 135 (pyleonephritis) - constipation for years, digital disimpaction - RLQ pain - radiates into back - nausea - she reports she did take Linzess every day - this did not help her have a BM every day - she was also taking Miralax at the same time - reports even with Miralax and Linzess she could go a week without a BM - then reports she can experience explosive watery diarrhea which causes dehydration and syncopal episodes - denies any weight loss - denies any bleeding - denies any family h/o colon CA - reports she previously failed Lactulose B: mini pancakes, yogurt, banana, coffee L: soup, tuna salad sandwich D: usually skips - denies any fiber supplements - she is eating 5 prunes every morning - water intake is improving - reports she is drinking 64 ounces of water daily - h/o hysterectomy - she is straining with BM STEATOSIS - denies any alcohol - denies NSAIDS [facility] Medical History Cardiology follow-up encounter History of Holter monitoring Pain FAITH (dyspnea on exertion) Chest pressure Wears glasses Wears dentures CPAP (continuous positive airway pressure) dependence Arthritis Osteoarthritis of left knee Left knee pain Stress incontinence Difficulty chewing History of IBS Former smoker Neuropathy Sjogrens syndrome Leg cramps History of edema History of echocardiogram History of stress test History of irregular heartbeat Chronic low back pain Sensory polyneuropathy Elevated hemoglobin A1c Rheumatoid arthritis TROY (obstructive sleep apnea) Urinary incontinence, urge Urinary urgency Urinary frequency PND (post-nasal drip) Bipolar 2 disorder Obesity (BMI 30-39.9) Mild intermittent asthma in adult without complication Mild mitral regurgitation Mild dilation of ascending aorta TROY (obstructive sleep apnea) Depression Right flank pain Spinal stenosis of lumbar region Hypertension Hyperlipidemia GERD (gastroesophageal reflux disease) Asthma OCD (obsessive compulsive disorder) Chest pain Thoracic aortic aneurysm without rupture Paroxysmal atrial tachycardia Nephrolithiasis Herpes simplex with unspecified complication Loss of appetite Anxiety Lightheadedness Long-term use of high-risk medication Obesity Sinusitis Eustachian tube dysfunction Otitis media Nightmares Rhinorrhea Segmental and somatic dysfunction of cervical region Segmental and somatic dysfunction of thoracic region Back sprain Epigastric abdominal pain Encounter for screening for malignant neoplasm of colon Home Medications ?Medication ?Instructions ?Recorded ?Last Taken ?Type olanzapine 10 mg tablet 10 mg PO QHS 10/08/20 Unknown History potassium chloride 20 mEq 20 meq PO BID 10/08/20 Unknown History tablet,extended release acetaminophen 500 mg tablet 500 mg PO Q6H PRN pain #30 tabs 03/24/21 Unknown Rx oxybutynin chloride 10 mg 10 mg PO DAILY 07/31/21 Unknown History tablet,extended release 24 hr duloxetine 30 mg capsule,delayed 30 mg PO BID 07/07/23 Unknown History release trazodone 150 mg tablet 150 mg PO QHS 09/28/23 Unknown History vibegron 75 mg tablet (Gemtesa) 75 mg PO DAILY 11/16/23 Unknown History aspirin 81 mg tablet,delayed 81 mg PO DAILY 11/24/23 08/28/24 History release (Adult Aspirin Regimen) cholecalciferol (vitamin D3) 1,250 1,250 mcg PO .QOTU 04/04/24 Unknown History mcg (50,000 unit) capsule celecoxib 100 mg capsule 100 mg PO BID PRN pain 04/09/24 Unknown History lisinopril 20 mg tablet 10 mg PO BID 08/16/24 Unknown History lubiprostone 24 mcg capsule 24 mcg PO BID constipation #180 08/16/24 Unknown Rx (Amitiza) caps ondansetron 4 mg disintegrating 4 mg PO Q8H PRN nausea and vomiting 08/16/24 Unknown History tablet pantoprazole 40 mg tablet,delayed 40 mg PO QDAY 08/16/24 Unknown History release polyethylene glycol 3350 17 gram 17 g PO DAILY PRN constipation 08/16/24 Unknown History oral powder packet (Miralax) guaifenesin 1,200 mg tablet, 1,200 mg PO Q12H #60 tabs 08/20/24 Unknown Rx extended release 12 hr Allergy/AdvReac Type Severity Reaction Status Date / Time tramadol (From Ultram) Allergy Intermediate Itching Verified 08/28/24 12:38 acetaminophen (From Percocet) Allergy Mild Itching Verified 08/28/24 12:38 oxycodone (From Percocet) Allergy Mild Itching Verified 08/28/24 12:38 cephalexin (From Keflex) Allergy Rash Verified 08/28/24 12:38 flurazepam (From Dalmane) Allergy Other Verified 08/28/24 12:38 divalproex sodium (From AdvReac Intermediate Other - Verified 08/28/24 12:38 Depakote) nightmares quetiapine (From Seroquel) AdvReac Mild Other - Verified 08/28/24 12:38 shaking, lightheaded and abnormal dreams meloxicam AdvReac Unknown Verified 08/28/24 12:38 Family History Father Cancer Alcoholism Hypertension Mother Heart disease H/O weight disorder Myocardial infarction Hypertension COPD (chronic obstructive pulmonary disease) Skin cancer Sister Hypertension Surgical History Hx of cystoscopy History of cardiac catheterization Hx of surgical procedure bladder sling removal History of bilateral carpal tunnel release H/O eye surgery H/O hand surgery History of total right knee replacement History of appendectomy H/O: hysterectomy Hx laparoscopic cholecystectomy Social History Smoking Status: Former smoker quit date: 08/29/82 pack-years: 15 second hand exposure: No alcohol intake: never substance use type: does not use ROS Constitutional Constitutional: Denies anorexia, fatigue, fever(s), poor appetite or weight loss Eyes Eyes: Denies change in vision ENT HEENT: Denies abnormal hearing, dysphagia, headache(s), loss taste/smell or sore throat Cardiovascular Cardiovascular: Denies chest pain, cyanosis, diaphoresis, dyspnea, nausea, radiating jaw, neck or arm pain or vomiting Respiratory/Chest Respiratory/Chest: Denies change in mental status, chest congestion, cough, dry cough, dyspnea, hoarseness or inability to speak Gastrointestinal Gastrointestinal: Denies abdominal pain, anorexia, change in bowel habits, nausea, taste impaired or vomiting Genitourinary Genitourinary: Reports urinary frequency, urinary incontinence and urinary urgency Musculoskeletal Musculoskeletal: Denies abnormal gait, muscle cramps, myalgias or numbness Integumentary Integumentary: Denies pruritus, rash, skin ulcer or unusual bruising Neurologic Neurologic: Reports systems reviewed and no addt'l complaints, except as documented Psychiatric Psychiatric: Reports systems reviewed and no addt'l complaints, except as documented Endocrine Endocrinology: Reports systems reviewed and no addt'l complaints, except as documented Hematologic/Lymphatic Hematologic/Lymphatic: Reports systems reviewed and no addt'l complaints, except as documented Allergic/Immunologic Allergic/Immunologic: Reports systems reviewed and no addt'l complaints, except as documented Physical Exam Const alert, oriented x3, no apparent distress and healthy appearing General Appearance: cooperative GI normal to inspection, nondistended, normoactive bowel sounds, soft to palpation, non-tender and non-distended Percussion: normal to percussion Rectal Exam: deferred Assessment & Plan Assessment/Plan (1) Steatosis, liver: (2) Straining during bowel movements: (3) Anemia: (4) RLQ abdominal pain: (5) Constipation: PLAN: Assessment and Plan Assessment and Plan (1) Constipation: Status: Acute (2) RLQ abdominal pain: Status: Acute (3) Anemia: Status: Acute (4) Straining during bowel movements: Status: Acute (5) Constipation: Status: Acute (6) RLQ abdominal pain: Status: Acute (7) Steatosis, liver: Status: Acute Orders: Orders CBC W/Diff, Automated Today D64.9 - Anemia, unspecified, K59.00 - Constipation, unspecified, K76.0 - Fatty (change of) liver, not elsewhere classified, R10.31 - Right lower quadrant pain, R19.8 - Other specified symptoms and signs involving the digestive system and abdomen Comprehensive Metabolic Profil Today D64.9 - Anemia, unspecified, K59.00 - Constipation, unspecified, K76.0 - Fatty (change of) liver, not elsewhere classified, R10.31 - Right lower quadrant pain, R19.8 - Other specified symptoms and signs involving the digestive system and abdomen Hepatitis A AB, Total Today D64.9 - Anemia, unspecified, K59.00 - Constipation, unspecified, K76.0 - Fatty (change of) liver, not elsewhere classified, R10.31 - Right lower quadrant pain, R19.8 - Other specified symptoms and signs involving the digestive system and abdomen Hepatitis B Core Ab Total Today D64.9 - Anemia, unspecified, K59.00 - Constipation, unspecified, K76.0 - Fatty (change of) liver, not elsewhere classified, R10.31 - Right lower quadrant pain, R19.8 - Other specified symptoms and signs involving the digestive system and abdomen Hepatitis B Surface Antibody Today D64.9 - Anemia, unspecified, K59.00 - Constipation, unspecified, K76.0 - Fatty (change of) liver, not elsewhere classified, R10.31 - Right lower quadrant pain, R19.8 - Other specified symptoms and signs involving the digestive system and abdomen Hepatitis B Surface Antigen Today D64.9 - Anemia, unspecified, K59.00 - Constipation, unspecified, K76.0 - Fatty (change of) liver, not elsewhere classified, R10.31 - Right lower quadrant pain, R19.8 - Other specified symptoms and signs involving the digestive system and abdomen Hepatitis C Antibody Today D64.9 - Anemia, unspecified, K59.00 - Constipation, unspecified, K76.0 - Fatty (change of) liver, not elsewhere classified, R10.31 - Right lower quadrant pain, R19.8 - Other specified symptoms and signs involving the digestive system and abdomen Elastography Parenchyma/Organ Today D64.9 - Anemia, unspecified, K59.00 - Constipation, unspecified, K76.0 - Fatty (change of) liver, not elsewhere classified, R10.31 - Right lower quadrant pain, R19.8 - Other specified symptoms and signs involving the digestive system and abdomen Miscellaneous Lab Procedure Today D64.9 - Anemia, unspecified, K59.00 - Constipation, unspecified, K76.0 - Fatty (change of) liver, not elsewhere classified, R10.31 - Right lower quadrant pain, R19.8 - Other specified symptoms and signs involving the digestive system and abdomen [facility] Procedure 2 Weeks D64.9 - Anemia, unspecified, K59.00 - Constipation, unspecified, K76.0 - Fatty (change of) liver, not elsewhere classified, R10.31 - Right lower quadrant pain, R19.8 - Other specified symptoms and signs involving the digestive system and abdomen Medications: New lubiprostone (Amitiza) 24 mcg PO BID 180 caps 1RF constipation Discontinued linaclotide (Linzess) Discontinued Reason: Order Changed 290 mcg PO DAILY PRN Plan 69y/o female presents for consultation with complaints of constipation and RLQ pain. CT A&P with contrast was completed 04/24/2024 revealed liver steatosis. She reports a long history of constipation currently failing Miralax and Linzess, and previously failed Lactulose. She reports going up to a week without a bowel movement. Denies any bleeding or weight loss. She is on several medications which can contribute to constipation (gabapentin, oxybutynin, olanzapine) and has a spinal cord stimulator. We have discussed the importance of a high fiber diet. She will discontinue Linzess and Miralax and start Amitiza BID. I have scheduled her for an ARM and colonoscopy. In terms of steatosis noted on prior CT, I have ordered labs and Elastography. Patient Instructions: Discontinue Linzess Discontinue Miralax Schedule Anorectal Manometry at [facility] Start Amitiza 24mcg twice daily Continue 5 prunes daily with good water intake (at least 64 ounces a day) Schedule Fibroscan at [facility] Schedule Colonoscopy - You may be a candidate to enroll in colon cancer research study with [facility] Call to schedule Anorectal Manometry [phone]. Call to schedule Fibroscan and Enroll in Colon Cancer Study on the same day [phone]. (All of these will be performed in [place]) Plan Details Follow Up: 3 Months
--- NOTE | 2024-08-30 09:28 | PRE.ANES_ITS ---
ASA Classification* ASA Classification ASA Classification: 3 Assessment & Plan Anesthesia* Anesthesia Assessment Anesthesia Assessment: Discussed sedation and/or anesthesia options, risks, benefits, and alternatives with patient/parents/legal guardian/POA. Questions invited. The patient/parents/legal guardian/POA seems to understand and agrees to proceed with anesthesia plan. Reviewed the physical assessment, medical history, allergy history and patient home medications list prior to surgery/procedure/anesthetic and documented any changes. Performed airway and anesthesia risk assessments. Anesthesia Type Anesthesia Type: MAC History Source History Obtained from:: Patient and Chart Anesthesia Focused Assessment* Temperature: 98.2 F Pulse Rate: 80 Blood Pressure: 112/61 Respiratory Rate: 18 Pulse Ox: 99 Oxygen Delivery Method: Room Air Airway Assessment Mouth opens: >3 cm Mallampati Score: II Teeth Condition: Dentures (Patient has full upper and lower dentures. They are out.) Neck Range of motion (ROM): Limited ROM (Slight decrease in extension) Focused Labs Anesthesia Preop lab: CBC WBC 6.2 K/mm3 (4.4-11.0) 08/16/24 11:46 RBC 4.03 M/mm3 (4.2-5.4) L 08/16/24 11:46 Hgb 9.8 g/dL (12.0-15.0) L 08/16/24 11:46 Hct 34.6 % (37-47) L 08/16/24 11:46 Plt Count 426 K/mm3 (150-450) 08/16/24 11:46 CHEMISTRY Potassium 4.4 mmol/L (3.5-5.1) 08/16/24 11:46 Sodium 135 mmol/L (136-145) L 08/16/24 11:46 Magnesium 2.1 mg/dL (1.6-2.6) 06/20/23 14:57 BUN 17 mg/dL (7-18) 08/16/24 11:46 Creatinine 0.68 mg/dL (0.55-1.02) 08/16/24 11:46 Glucose 81 mg/dL (74-106) 08/16/24 11:46 TSH 2.29 uIU/mL (0.358-3.74) 05/30/20 09:28 COAG PT 12.9 SECONDS (11.7-14.9) 11/14/15 11:30 Pre-Assessment Diagnosis/Proposed Procedure Planned Operative Procedure(s): CSCOPE Anesthesia History Anesthesia History - 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 When Was Last Pacemaker Check QUESTION #4 FULL TEXT: You/Your Family Experience fever (hyperthermia) with Anesthesia Last Oral Intake Last Oral intake: Last Oral Intake NPO since 06:30 08/30/24 09:09 Meds taken in AM with sips of Yes 08/30/24 09:09 water? Meds patient instructed to see med rec 08/30/24 09:09 take am of surgery Any additional information?: Yes NPO since: 06:30 (Patient finished prep at 6:30 AM.) Meds taken in AM with sips of water?: Yes PONV PONV - sales compensation analyst: PONV - sales compensation analyst Female Yes 08/28/24 12:44 HX of Motion Sickness No 08/28/24 12:44 HX of N/V After Surgery No 08/28/24 12:44 Non-Smoker Yes 08/28/24 12:44 Duration of Surgery greater No 08/28/24 12:44 than 60 minutes Number of Risk Factors 2 08/28/24 12:44 PONV Score Moderate Risk 08/28/24 12:44 Height & Weight Height & Weight: Anesthesia: Height & Weight Height 5 ft 4 in 08/30/24 09:09 Weight: 105.6 kg 08/30/24 09:09 Body Mass Index (BMI) 39.9 08/30/24 09:09 Respiratory Assessment Respiratory Assessment - sales compensation analyst: Respiratory Tract Infection Hx - sales compensation analyst Hx Respiratory Tract Infection No 08/28/24 12:44 STOP Sleep Apnea STOP Sleep Apnea - sales compensation analyst: STOP Sleep Apnea - sales compensation analyst Hx Hypertension Yes: CONTROLLED WITH MED 08/28/24 12:44 Hx Sleep Apnea Yes 08/28/24 12:44 CPAP Yes: NON COMPLIANT 08/28/24 12:44 BIPAP No 08/28/24 12:44 Do you snore loudly (louder than talking or can be heard Do you often feel tired/ fatigued/ sleepy during daytime? Has anyone observed you stop breathing during sleep? STOP Results Positive 08/28/24 12:44 QUESTION #5 FULL TEXT : Do you snore loudly (louder than talking or can be heard through closed doors)? 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 Specify any problems Hx of Preganancy in last 3 No 08/28/24 12:44 Months Nurse Filling Out Transfusion DSCHRIBER 08/28/24 12:44 & Questions: Date: 08/28/24 08/28/24 12:44 Time: 12:45 08/28/24 12:44 Patient unable to answer at this time (ie. confused, unrespo /Reproduction History /Reproductive History - sales compensation analyst: /Reproductive Hx- sales compensation analyst Hx Now Gestational Age (in weeks): EDC: Hx Hx Para Hx Section SAB PFSH Medical History Cardiology follow-up encounter History of Holter monitoring Pain FAITH (dyspnea on exertion) Chest pressure Wears glasses Wears dentures CPAP (continuous positive airway pressure) dependence Arthritis Osteoarthritis of left knee Left knee pain Stress incontinence Difficulty chewing History of IBS Former smoker Neuropathy Sjogrens syndrome Leg cramps History of edema History of echocardiogram History of stress test History of irregular heartbeat Chronic low back pain Sensory polyneuropathy Elevated hemoglobin A1c Rheumatoid arthritis TROY (obstructive sleep apnea) Urinary incontinence, urge Urinary urgency Urinary frequency PND (post-nasal drip) Bipolar 2 disorder Obesity (BMI 30-39.9) Mild intermittent asthma in adult without complication Mild mitral regurgitation Mild dilation of ascending aorta TROY (obstructive sleep apnea) Depression Right flank pain Spinal stenosis of lumbar region Hypertension Hyperlipidemia GERD (gastroesophageal reflux disease) Asthma OCD (obsessive compulsive disorder) Chest pain Thoracic aortic aneurysm without rupture Paroxysmal atrial tachycardia Nephrolithiasis Herpes simplex with unspecified complication Loss of appetite Anxiety Lightheadedness Long-term use of high-risk medication Obesity Sinusitis Eustachian tube dysfunction Otitis media Nightmares Rhinorrhea Segmental and somatic dysfunction of cervical region Segmental and somatic dysfunction of thoracic region Back sprain Epigastric abdominal pain Encounter for screening for malignant neoplasm of colon Home Medications ?Medication ?Instructions ?Recorded ?Last Taken ?Type olanzapine 10 mg tablet 10 mg PO QHS 10/08/20 Unknown History potassium chloride 20 mEq 20 meq PO BID 10/08/20 Unknown History tablet,extended release acetaminophen 500 mg tablet 500 mg PO Q6H PRN pain #30 tabs 03/24/21 Unknown Rx oxybutynin chloride 10 mg 10 mg PO DAILY 07/31/21 Unknown History tablet,extended release 24 hr duloxetine 30 mg capsule,delayed 30 mg PO BID 07/07/23 Unknown History release trazodone 150 mg tablet 150 mg PO QHS 09/28/23 Unknown History vibegron 75 mg tablet (Gemtesa) 75 mg PO DAILY 11/16/23 Unknown History aspirin 81 mg tablet,delayed 81 mg PO DAILY 11/24/23 08/28/24 History release (Adult Aspirin Regimen) cholecalciferol (vitamin D3) 1,250 1,250 mcg PO .QOTU 04/04/24 Unknown History mcg (50,000 unit) capsule celecoxib 100 mg capsule 100 mg PO BID PRN pain 04/09/24 Unknown History lisinopril 20 mg tablet 10 mg PO BID 08/16/24 Unknown History lubiprostone 24 mcg capsule 24 mcg PO BID constipation #180 08/16/24 08/30/24 06:30 Rx (Amitiza) caps ondansetron 4 mg disintegrating 4 mg PO Q8H PRN nausea and vomiting 08/16/24 Unknown History tablet pantoprazole 40 mg tablet,delayed 40 mg PO QDAY 08/16/24 08/30/24 06:30 History release polyethylene glycol 3350 17 gram 17 g PO DAILY PRN constipation 08/16/24 Unknown History oral powder packet (Miralax) guaifenesin 1,200 mg tablet, 1,200 mg PO Q12H #60 tabs 08/20/24 Unknown Rx extended release 12 hr Allergy/AdvReac Type Severity Reaction Status Date / Time tramadol (From Ultram) Allergy Intermediate Itching Verified 08/30/24 09:07 oxycodone (From Percocet) Allergy Mild Itching Verified 08/30/24 09:07 cephalexin (From Keflex) Allergy Rash Verified 08/30/24 09:07 flurazepam (From Dalmane) Allergy Other Verified 08/30/24 09:07 divalproex sodium (From AdvReac Intermediate Other - Verified 08/30/24 09:07 Depakote) nightmares quetiapine (From Seroquel) AdvReac Mild Other - Verified 08/30/24 09:07 shaking, lightheaded and abnormal dreams meloxicam AdvReac Unknown Verified 08/30/24 09:07 Family History Father Cancer Alcoholism Hypertension Mother Heart disease H/O weight disorder Myocardial infarction Hypertension COPD (chronic obstructive pulmonary disease) Skin cancer Sister Hypertension Surgical History Hx of cystoscopy History of cardiac catheterization Hx of surgical procedure bladder sling removal History of bilateral carpal tunnel release H/O eye surgery H/O hand surgery History of total right knee replacement History of appendectomy H/O: hysterectomy Hx laparoscopic cholecystectomy Social History Smoking Status: Former smoker quit date: 08/29/82 pack-years: 15 second hand exposure: No alcohol intake: never substance use type: does not use Review of Systems (Anesthesia) ROS Narrative System reviewed and no additional complaints, except as documented.
--- NOTE | 2024-08-30 09:45 | COLBX_PTH ---
PATIENT: JOCE JOY LOC: EN U#:[id number] AGE/SX: 69/F ROOM: RE08/30/[address]: Dr. Tato Posey DO : 1955 BED: DIS: 08/30/2024 SPEC #: [id number] RECD: 08/30/24 16:46 STATUS: SAWYER GISEL #: [id number] ABIOLA: 08/30/24 09:[address]: Tato Posey DEPT: SURGICAL PATHOLOGY RECD BY: Ameena Rivera ENTERED: 08/31/24 09:47 SP TYPE: COLON BX OTHR DR: Dr. Bay Ramos DO Tissues: Sigmoid colon biopsy Procedures: Surgery Specimen Level IV HEADER OPERATION: Colonoscopy, polypectomy PRE-OP DIAGNOSIS: Constipation, right lower quadrant abdominal pain, anemia, straining during bowel movements, steatosis, liver TISSUE SUBMITTED: Sigmoid polyp MICROSCOPIC DIAGNOSIS Sigmoid polyp, polypectomy: Tubular adenoma. 09/03/2024 MICROSCOPIC DESCRIPTION Slides are reviewed. GROSS DESCRIPTION Received in fixative is one container labeled with the patient's name and designated Sigmoid polyp. The specimen consists of a pink-red polyp measuring 1.0 x 0.9 x 0.7 cm. The presumed base is inked, serially sectioned and submitted entirely in one cassette. SHERRY. 08/31/2024 TC:1 CPT:57506
--- NOTE | 2024-08-30 10:40 | OP.CCLET_ITS ---
08/30/2024 Bay Ramos [address] [facility] [place] [place] [address] Re : Colonoscopy procedure for Winter Damon Dear Dr. Ramos This procedure was performed on August. My impressions and recommendations are as follows: Impressions : - Preparation of the colon was fair. - Diverticulosis in the recto-sigmoid colon and in the sigmoid colon. - One 12 mm polyp in the sigmoid colon, removed with a hot snare. Resected and retrieved. - Stool in the recto-sigmoid colon, in the sigmoid colon, in the descending colon, in the transverse colon, in the ascending colon and in the cecum. Recommendations : - Discharge patient to home. - Resume previous diet. - Continue present medications. - Await pathology results. - Repeat colonoscopy in 6 months because the bowel preparation was poor. My findings are described in the full procedure note, which is enclosed. If I can be of further assistance, please feel free to contact me at . Sincerely, Tato Posey, 08/30/2024 10:40:14 AM This report has been signed electronically.
--- NOTE | 2024-08-30 10:40 | OP.COLON_ITS ---
Patient Name: Winter Damon Procedure Date: 08/30/2024 9:52 AM Date of : 1955 Age: 69 Procedure: Colonoscopy Indications: Chronic diarrhea, Abnormal CT of the GI tract Providers: Tato Posey DO Medicines: Monitored Anesthesia Care Patient Profile: This is a 69 year old female. Refer to note in patient chart for documentation of history and physical. Last Colonoscopy: date unknown. Unable to locate last colonoscopy report. Complications: No immediate complications. Procedure: Pre-Anesthesia Assessment: - Prior to the procedure, a History and Physical was performed, and patient medications and allergies were reviewed. The patient is competent. The risks and benefits of the procedure and the sedation options and risks were discussed with the patient. All questions were answered and informed consent was obtained. Patient identification and proposed procedure were verified by the physician in the pre-procedure area. Mental Status Examination: alert and oriented. Airway Examination: normal oropharyngeal airway and neck mobility. Respiratory Examination: clear to auscultation. CV Examination: normal. Prophylactic Antibiotics: The patient does not require prophylactic antibiotics. Prior Anticoagulants: The patient has taken no anticoagulant or antiplatelet agents except for NSAID medication. ASA Grade Assessment: III - A patient with severe systemic disease. After reviewing the risks and benefits, the patient was deemed in satisfactory condition to undergo the procedure. The anesthesia plan was to use monitored anesthesia care (MAC). Immediately prior to administration of medications, the patient was re-assessed for adequacy to receive sedatives. The heart rate, respiratory rate, oxygen saturations, blood pressure, adequacy of pulmonary ventilation, and response to care were monitored throughout the procedure. The physical status of the patient was re-assessed after the procedure. After I obtained informed consent, the scope was passed under direct vision. Throughout the procedure, the patient's blood pressure, pulse, and oxygen saturations were monitored continuously. The colonoscope was introduced through the anus and advanced to the cecum, identified by appendiceal orifice and ileocecal valve. The colonoscopy was performed without difficulty. The patient tolerated the procedure well. The quality of the bowel preparation was fair. The ileocecal valve, appendiceal orifice, and rectum were photographed. Scope In: 10:04:36 AM Scope Withdrawal Time 0 hours 19 minutes 11 seconds Scope Out: 10:31:25 AM Total Procedure Duration Time 0 hours 26 minutes 49 seconds Findings: The perianal and digital rectal examinations were normal. A few small-mouthed diverticula were found in the recto-sigmoid colon and sigmoid colon. A 12 mm polyp was found in the sigmoid colon. The polyp was sessile. The polyp was removed with a hot snare. Resection and retrieval were complete. Verification of patient identification for the specimen was done. Estimated blood loss was minimal. Stool was found in the recto-sigmoid colon, in the sigmoid colon, in the descending colon, in the transverse colon, in the ascending colon and in the cecum. Lavage of the area was performed, resulting in clearance with fair visualization. Impression: - Preparation of the colon was fair. - Diverticulosis in the recto-sigmoid colon and in the sigmoid colon. - One 12 mm polyp in the sigmoid colon, removed with a hot snare. Resected and retrieved. - Stool in the recto-sigmoid colon, in the sigmoid colon, in the descending colon, in the transverse colon, in the ascending colon and in the cecum. Recommendation: - Discharge patient to home. - Resume previous diet. - Continue present medications. - Await pathology results. - Repeat colonoscopy in 6 months because the bowel preparation was poor. Procedure Code(s): --- Professional --- 98062, Colonoscopy, flexible; with removal of tumor(s), polyp(s), or other lesion(s) by snare technique CPT copyright 2021 [employer]. All rights reserved. The codes documented in this report are preliminary and upon mixed signal design engineer review may be revised to meet current compliance requirements. Tato Posey DO 08/30/2024 10:40:14 AM This report has been signed electronically. Number of Addenda: 0 Note Initiated On: 08/30/2024 9:52 AM
--- NOTE | 2024-08-30 10:46 | PCM.POST.ANE ---
Anesthesia: Postop Eval I Current Vital Signs Temperature: 98 F Pulse Rate: 76 Blood Pressure: 118/65 Respiratory Rate: 16 Pulse Ox: 100 Oxygen Delivery Method: Room Air Assessment Airway patent: Yes Spontaneous unlabored respirations: Yes Mental status: Awake and Calm nausea: No Vomiting: No Anesthesia Complication: No Fluid Hydration Crystalloid volume administer (ml): 45 Total IV fluid infused: 45 Progress Note Anesthesia document: Postop Eval 1 completed: Yes
--- NOTE | 2024-08-30 11:49 | PCM.POSTANE2 ---
Anesthesia Postop Eval I Sum Postop Eval Completion status Anesthesia document: Postop Eval 1 completed: Yes Anesthesia Postop Eval I Summary Anesthesia Postop Eval I Summary: Anesthesia Postop Eval I: Assessment Summary Airway patent Yes 08/30/24 10:47 [email or web address] Spontaneous unlabored Yes 08/30/24 10:47 [email or web address] respirations Mental status Awake,Calm 08/30/24 10:47 [email or web address] nausea No 08/30/24 10:47 [email or web address] Vomiting No 08/30/24 10:47 [email or web address] Anesthesia Postop Eval I: Fluid Summary Crystalloid volume administer 45 08/30/24 10:47 [email or web address] (ml) Colloids volume administered ( ml) Blood Product volume administered (ml) Total IV fluid infused 45 08/30/24 10:47 [email or web address] Anesthesia Postop Eval I: Summary Notes Anesthesia Complication No 08/30/24 10:47 [email or web address] Anesthesia Complication Comment: Post-operative progress note Anesthesia: Postop Eval II Evaluation Mental status: Awake and Calm Pain Level: 0 nausea: No Vomiting: No Complications Anesthesia Complication: No
== END 2024-08-30 11:23 | disposition home or self-care (01) ==
LOC: EN 08:41 → AC 08:44
PROVIDERS: PCP Family Medicine; Referring Provider Family Medicine; Visit Provider Internal Medicine Gastroenterology
PROC: 0DJD8ZZ Inspection of Lower Intestinal Tract, Via Natural or Artificial Opening Endoscopic (ICD-10-PCS; CPT 45378; principal; 2024-08-30 09:40)
DX: D12.5 Benign neoplasm of sigmoid colon (principal); F31.81 Bipolar II disorder; K57.30 Diverticulosis of large intestine without perforation or abscess without bleeding; I10 Essential (primary) hypertension; K21.9 Gastro-esophageal reflux disease without esophagitis; G47.33 Obstructive sleep apnea (adult) (pediatric); Z79.82 Long term (current) use of aspirin; Z79.899 Other long term (current) drug therapy; Z87.891 Personal history of nicotine dependence
CPT/HCPCS: 45385; 88305; A4216; J2405

== ENCOUNTER → 2024-09-20 | Outpatient (CLI) | payer MEDICAID, SELFPAY ==
[2024-09-20 11:39] LABS: Absolute Lymphocyte Count 3.11 X10^3/uL (0.83-4.51); Absolute Neutrophil Count 4.3 X10^3/uL (2.0-7.7); Basophil# 0.03 X10^3/uL; Basophil% 0.4 % (0-1); Eosinophil# 0.07 X10^3/uL; Eosinophils% 0.8 % (0-5); Hematocrit 33.1 % (37-47); Hemoglobin 9.3 g/dL (12.0-15.0); Lymphocyte # 3.11 X10^3/ul (0.83-4.51); Mean Corp Hgb Conc 28.1 g/dL (32-36); Mean Corpuscular Hgb 22.2 pg (27.0-32.0); Mean Platelet Vol. 8.1 fl (6.2-12.0); Monocyte# 0.85 X10^3/uL; Monocyte% 10.1 % (0-10); NRBC Flagged by Analyzer 0 % (0-5); Neutrophil # 4.32 X10^3/uL (2.7-7.7); Neutrophil % 51.3 % (47-70); Platelet Count 475 K/mm3 (150-450); RBC Distribution Width CV 17.6 % (11.6-14.6); RBC Distribution Width SD 50.6 fl (35.1-43.9); Red Blood Count 4.19 M/mm3 (4.2-5.4); White Blood Count 8.4 K/mm3 (4.4-11.0)
[2024-09-20 11:53] LABS: Iron 30 ug/dL (50-170); Iron Binding Capacity,Total 391 ug/dL (250-450)
== END | disposition home or self-care (01) ==
PROVIDERS: PCP Family Medicine; Referring Provider Nurse Practitioner Acute Care; Visit Provider Nurse Practitioner Acute Care
DX: R10.13 Epigastric pain (principal); K76.0 Fatty (change of) liver, not elsewhere classified; D64.9 Anemia, unspecified
CPT/HCPCS: 36415; 83540; 83550; 85025

== ENCOUNTER 2024-09-28 09:21 | Emergency (ER) | payer MEDICAID, SELFPAY ==
[2024-09-28 09:21] VITALS: BP 125/86; PULSE 102; RESP 16; TEMP 37.1; O2SAT 97; BMI 38.1
--- NOTE | 2024-09-28 10:12 | EX.ED.VIS.HA ---
HPI History of Present Illness Chief Complaint: Headache Informant: patient Narrative Narrative: Patient is a 69-year-old female with history of TROY, anemia, cluster headaches, Sjogren's syndrome, rheumatoid arthritis and some chronic pain presenting for evaluation of neck pain and headache. Patient states 3 days ago she developed some pain on the left side of her neck. She did she thought she maybe slept wrong. She took Tylenol which did make it bearable. The pain is progressed to the right side of her neck and now up to her face and head. She states when she stands up she screams because she has sharp pain in her head. She notes this does not feel like her cluster headaches. She last took Tylenol 2 days ago. She is not any blood thinners. She does take aspirin daily. She states that she was told not to take ibuprofen because she was taking too much in the past and she is currently being worked up outpatient for anemia. She waited until a friend could take her to the emergency room this morning to come in to be evaluated. She does not report any fever or chills. [facility] Medical History Cardiology follow-up encounter History of Holter monitoring Pain FAITH (dyspnea on exertion) Chest pressure Wears glasses Wears dentures CPAP (continuous positive airway pressure) dependence Arthritis Osteoarthritis of left knee Left knee pain Stress incontinence Difficulty chewing History of IBS Former smoker Neuropathy Sjogrens syndrome Leg cramps History of edema History of echocardiogram History of stress test History of irregular heartbeat Chronic low back pain Sensory polyneuropathy Elevated hemoglobin A1c Rheumatoid arthritis TROY (obstructive sleep apnea) Urinary incontinence, urge Urinary urgency Urinary frequency PND (post-nasal drip) Bipolar 2 disorder Obesity (BMI 30-39.9) Mild intermittent asthma in adult without complication Mild mitral regurgitation Mild dilation of ascending aorta TROY (obstructive sleep apnea) Depression Right flank pain Spinal stenosis of lumbar region Hypertension Hyperlipidemia GERD (gastroesophageal reflux disease) Asthma OCD (obsessive compulsive disorder) Chest pain Thoracic aortic aneurysm without rupture Paroxysmal atrial tachycardia Nephrolithiasis Herpes simplex with unspecified complication Loss of appetite Anxiety Lightheadedness Long-term use of high-risk medication Obesity Sinusitis Eustachian tube dysfunction Otitis media Nightmares Rhinorrhea Segmental and somatic dysfunction of cervical region Segmental and somatic dysfunction of thoracic region Back sprain Epigastric abdominal pain Encounter for screening for malignant neoplasm of colon Home Medications ?Medication ?Instructions ?Recorded ?Last Taken ?Type olanzapine 10 mg tablet 10 mg PO QHS 10/08/20 Unknown History potassium chloride 20 mEq 20 meq PO BID 10/08/20 Unknown History tablet,extended release acetaminophen 500 mg tablet 500 mg PO Q6H PRN pain #30 tabs 03/24/21 Unknown Rx oxybutynin chloride 10 mg 10 mg PO DAILY 07/31/21 Unknown History tablet,extended release 24 hr duloxetine 30 mg capsule,delayed 30 mg PO BID 07/07/23 Unknown History release trazodone 150 mg tablet 150 mg PO QHS 09/28/23 Unknown History vibegron 75 mg tablet (Gemtesa) 75 mg PO DAILY 11/16/23 Unknown History aspirin 81 mg tablet,delayed 81 mg PO DAILY 11/24/23 08/28/24 History release (Adult Aspirin Regimen) cholecalciferol (vitamin D3) 1,250 1,250 mcg PO .QOTU 04/04/24 Unknown History mcg (50,000 unit) capsule lisinopril 20 mg tablet 10 mg PO BID 08/16/24 Unknown History lubiprostone 24 mcg capsule 24 mcg PO BID constipation #180 08/16/24 08/30/24 06:30 Rx (Amitiza) caps ondansetron 4 mg disintegrating 4 mg PO Q8H PRN nausea and vomiting 08/16/24 Unknown History tablet pantoprazole 40 mg tablet,delayed 40 mg PO QDAY 08/16/24 08/30/24 06:30 History release polyethylene glycol 3350 17 gram 17 g PO DAILY PRN constipation 08/16/24 Unknown History oral powder packet (Miralax) guaifenesin 1,200 mg tablet, 1,200 mg PO Q12H #60 tabs 08/20/24 Unknown Rx extended release 12 hr multivitamin 1 tab PO QAM 09/20/24 Unknown History tizanidine 4 mg capsule (Zanaflex) 4 mg PO Q8H PRN muscle spasticity 09/28/24 Unknown Rx #20 caps Allergy/AdvReac Type Severity Reaction Status Date / Time tramadol (From Ultram) Allergy Intermediate Itching Verified 09/28/24 09:21 oxycodone (From Percocet) Allergy Mild Itching Verified 09/28/24 09:21 cephalexin (From Keflex) Allergy Rash Verified 09/28/24 09:21 flurazepam (From Dalmane) Allergy Other Verified 09/28/24 09:21 divalproex sodium (From AdvReac Intermediate Other - Verified 09/28/24 09:21 Depakote) nightmares quetiapine (From Seroquel) AdvReac Mild Other - Verified 09/28/24 09:21 shaking, lightheaded and abnormal dreams meloxicam AdvReac Unknown Verified 09/28/24 09:21 Family History Father Cancer Alcoholism Hypertension Mother Heart disease H/O weight disorder Myocardial infarction Hypertension COPD (chronic obstructive pulmonary disease) Skin cancer Sister Hypertension Surgical History Hx of cystoscopy History of cardiac catheterization Hx of surgical procedure bladder sling removal History of bilateral carpal tunnel release H/O eye surgery H/O hand surgery History of total right knee replacement History of appendectomy H/O: hysterectomy Hx laparoscopic cholecystectomy Social History Smoking Status: Former smoker quit date: 08/29/82 pack-years: 15 second hand exposure: No alcohol intake: never substance use type: does not use ROS ROS ED Constitutional Constitutional ED: Denies chills or fever(s) Eyes Eyes: Denies change in vision ENT ENT ED: Reports rhinorrhea and other Details: Sneezing ; Denies sore throat Cardiovascular Cardiovascular: Denies chest pain Respiratory/Chest Respiratory/Chest: Reports cough; Denies dyspnea Gastrointestinal Gastrointestinal: Denies abdominal pain, nausea or vomiting Musculoskeletal Musculoskeletal: Reports arthralgias and neck pain Integumentary Denies rash Neurologic Neurologic: Reports headache(s); Denies paresthesias or weakness Hematologic/Lymphatic Hematologic/Lymphatic: Denies easy bleeding or easy bruising EXAM Physical Exam Const Vital Signs: 09/28/24 09:21 09/28/24 11:21 09/28/24 13:00 Temperature 98.7 F Temperature Source Oral Pulse Rate 102 H 78 78 Respiratory Rate 16 16 16 Blood Pressure 125/86 H 107/64 105/65 Blood Pressure Mean 99 78 78 Pulse Ox 97 96 97 Oxygen Delivery Method Room Air Room Air Room Air 09/28/24 14:43 Temperature 97.8 F Temperature Source Pulse Rate 74 Respiratory Rate 15 Blood Pressure 104/74 Blood Pressure Mean 84 Pulse Ox 96 Oxygen Delivery Method Positive well nourished and well developed General Appearance ED: well developed and NAD HEENT Reports normocephalic HEENT Narrative: Mildly dry mucosal membranes. Normal oropharynx. Normal tympanic membranes bilaterally. Normal phonation. Neck supple and no meningeal signs Neck Narrative: No midline tenderness. Decreased range of motion. Associated paraspinal cervical spasm more pronounced on the left than the right. Trapezius spasm present as well. Resp normal respiratory effort and clear to auscultation bilaterally Cardio regular rate and regular rhythm GI non-tender and non-distended Extremity normal to inspection and full ROM General Extremety ED: Negative for edema General Extremity: Negative for edema Neuro oriented x3 Sensorium / Orientation: awake and alert Motor Exam: Negative for general weakness Psych mental status grossly normal Skin Rashes: no rashes MDM MDM MDM Narrative Medical decision making narrative: Patient evaluated for neck pain and headache. Suspect she has a tension headache based on physical exam and HPI. She is not any fever or infectious symptoms concerning for meningitis. She does not have any photophobia. Does not seem like a migraine headache. She does report a history of cluster headaches but her symptoms today are not consistent with that. Patient is she given IV Toradol and tizanidine orally. Flu swab is obtained and she states she has been sneezing and having some runny nose. This is negative. On repeat evaluation she does have some improvement of her symptoms but is continued to have headache and muscle pains at the base of her neck. Is given a dose of oral Valium and a Lidoderm patch. We discharged home with a course of tizanidine. Instructed to follow-up with pain management to let them know she was prescribed tizanidine today and for outpatient follow-up/pain control. She verbalized agreement understand this plan. She otherwise well-appearing I do not think requires lab work or advanced imaging. Is given return precautions. Discharged home in stable and improved condition. Discharge Plan Triage Chief Complaint: Headache ED Provider: Carolyne Leigh Dx/Rx/DC Orders Clinical Impression: Acute tension headache, Muscle spasms of neck Instructions: ED Headache, Tension, ED Neck Spasm, No Trauma Prescriptions: New tizanidine [Zanaflex] 4 mg capsule 4 mg PO Q8H PRN (Reason: muscle spasticity) Qty: 20 0RF No Action olanzapine 10 mg tablet 10 mg PO QHS potassium chloride 20 mEq tablet extended release 20 meq PO BID cholecalciferol (vitamin D3) 1,250 mcg (50,000 unit) capsule 1,250 mcg PO .QOTU oxybutynin chloride 10 mg tablet extended release 24hr 10 mg PO DAILY trazodone 150 mg tablet 150 mg PO QHS lisinopril 20 mg tablet 10 mg PO BID Gemtesa 75 mg tablet 75 mg PO DAILY pantoprazole 40 mg tablet,delayed release (DR/EC) 40 mg PO QDAY ondansetron 4 mg tablet,disintegrating 4 mg PO Q8H PRN (Reason: nausea and vomiting) lubiprostone [Amitiza] 24 mcg capsule 24 mcg PO BID Qty: 180 1RF multivitamin Tablet 1 tab PO QAM acetaminophen 500 mg tablet 500 mg PO Q6H PRN (Reason: pain) Qty: 30 0RF polyethylene glycol 3350 [Miralax] 17 gram powder in packet 17 g PO DAILY PRN (Reason: constipation) duloxetine 30 mg capsule,delayed release(DR/EC) 30 mg PO BID aspirin [Adult Aspirin Regimen] 81 mg tablet,delayed release (DR/EC) 81 mg PO DAILY guaifenesin 1,200 mg tablet extended release 12hr 1,200 mg PO Q12H Qty: 60 6RF Primary Care Provider: Bay Ramos Referrals: Bay Ramos DO [Primary Care Provider] - Activity Restrictions/Additional Instructions: Please call pain management let them know you are seen in the ER today. If you find it helpful you may use [id number] Lidoderm patches (I recommend 4% extra strength Salonpas) for further pain control. Take muscle relaxers as prescribed. If your symptoms progress, you develop a fever or further concerns please return to the emergency room. Print Language: Bermudian Disposition Disposition: Home, Self Care Discharge Date/Time: 09/28/24 14:45
[2024-09-28] MEDS: tiZANidine HCl 2 MG Tablet 4 MG PO (10:16)
[2024-09-28] MEDS: Ketorolac 15 MG/ML Vial IV (10:16)
[2024-09-28 11:21] VITALS: BP 107/64; PULSE 78; RESP 16; O2SAT 96
[2024-09-28 13:00] VITALS: BP 105/65; PULSE 78; RESP 16; O2SAT 97
[2024-09-28] MEDS: Lidocaine 5% Patch 1 PATCH TOPICAL (14:04)
[2024-09-28] MEDS: diazePAM 2 MG Tablet 4 MG PO (14:04)
[2024-09-28 14:43] VITALS: BP 104/74; PULSE 74; RESP 15; TEMP 36.6; O2SAT 96
== END 2024-09-28 14:45 | disposition home or self-care (01) ==
PROVIDERS: Emergency Provider Emergency Medicine; PCP Family Medicine; Visit Provider Emergency Medicine
DX: G44.209 Tension-type headache, unspecified, not intractable (principal); M62.838 Other muscle spasm; G47.33 Obstructive sleep apnea (adult) (pediatric); Z87.891 Personal history of nicotine dependence
CPT/HCPCS: 87631; 96374; 99283

== ENCOUNTER 2024-09-29 14:00 | Emergency (ER) | payer MEDICAID, SELFPAY ==
[2024-09-29 14:01] VITALS: BP 82/51; PULSE 64; RESP 16; TEMP 36.4; O2SAT 94; BMI 38.1
[2024-09-29] MEDS: 0.9% Normal Saline (1000mL) 1,000 ML 999 ML IV (14:27)
--- NOTE | 2024-09-29 14:27 | CT_ITS ---
PROCEDURE: CTA HEAD AND NECK W/ CONTRAST REASON FOR EXAM: Stroke TECHNIQUE: CTA imaging of the head and neck from the aortic arch to the skull vertex with intravenous contrast. 3D reconstructions. CONTRAST: COMPARISON: None. # of known CTs in the past 12 months: 0 # of known Cardiac Nuclear Medicine Studies in the past 12 months: 0 FINDINGS: Aortic Arch: Normal size and branching pattern. No significant atherosclerotic plaque. Brachiocephalic and Subclavians: Unremarkable RIGHT Carotid: Right CCA: Unremarkable. Right ICA: Unremarkable. Right ECA: Unremarkable. LEFT Carotid: Left CCA: Unremarkable. Left ICA: Unremarkable. Left ECA: Unremarkable. Vertebrals: Codominant. Arise from the subclavians. Both vertebrals form the basilar. RIGHT Vertebral: Unremarkable. LEFT Vertebral: Unremarkable. Partially visualized intracranial contents on noncontrast head CT are unremarkable. No intracranial hemorrhage. Osseous structures intact. No intracranial aneurysms or large vascular malformations are identified. Anterior cerebral arteries: Unremarkable. Middle cerebral arteries: Unremarkable. Basilar artery: Unremarkable. Posterior cerebral arteries: Unremarkable. Other major branches of the posterior circulation: Unremarkable. Major venous structures: Unremarkable. Other findings: No lymphadenopathy. Lung apices are clear. Bones are unremarkable. CT/CTA Head AND Neck W/ Contrast IMPRESSION: No large vessel steno. No acute intracranial CT process identified. One or more dose reduction techniques were used (e.g., Automated exposure contr ol, adjustment of the mA and/or kV according to patient size, use of iterative reconstruction technique). Reading Location: [facility]
--- NOTE | 2024-09-29 14:27 | EKG12_ITS ---
Test Reason : GENERAL Blood Pressure : */* mmHG Vent. Rate : 70 BPM Atrial Rate : 70 BPM P-R Int : 170 ms QRS Dur : 98 ms QT Int : 438 ms P-R-T Axes : 63 33 67 degrees QTcB Int : 473 ms Normal sinus rhythm Normal ECG Confirmed by RUBI BANG, ALICE ([id number]), advertising editor VANESSA PINK ([id number]) on 10/01/2024 8:19:36 AM Referred By: Confirmed By: ALICE VENEGAS MD
--- NOTE | 2024-09-29 14:28 | EDS_ITS ---
<Statement entered by Anthony Torres DO - 09/29/24 20:01> Patient was seen and examined with nurse gina Gunter All components of the history and physical confirmed and agreed. History of present illness and physical exam: Patient is a 69-year-old female with a past medical history of IBS, Sjogren syndrome, TROY, bipolar disorder, BMI of 30-39.9, depression, hypertension, hyperlipidemia, anxiety who presented to the emergency department with a chief complaint of right neck pain and headache. Patient states that she was evaluated at the emergency department yesterday was diagnosed with a muscle spasm was given a muscle relaxer. She states that she was given Valium yesterday. Patient states that she feels like her neck pain is worse and had a headache with this therefore she came here for the valuation management. Patient denies any falls or any other injuries. Review of systems: Agree with above Physical exam: Agree with above will add on patient completed finger-nose and [id number] test bilaterally without any difficulty. NIH of 0 GCS 15 MDM Patient is a 61-year-old female who presented to the emergency department with a chief complaint of left-sided neck pain and headache. On the differential diagnose includes but not limited to vertebral artery dissection, carotid artery dissection, TIA, intracranial hemorrhage, dehydration. Once workup is obtained reviewed she will be reevaluated. Patient's blood pressure was noted to be 80/50 when she arrived she was given IV fluids for hydration. Patient CBC reviewed and showed no evidence leukocytosis white blood count normal at 10.9, hemoglobin 8.7, platelet count was noted be normal at 398. Patient's sodium was 132, potassium normal at 4.2, creatinine normal at 0.76. Patient's AST and ALT were 14 and 14 respectively. Patient's troponin normal at 6 and EKG reviewed by myself which showed sinus rhythm with a rate of 70 bpm. Patient's chest x-ray reviewed by myself and by radiology showed no acute cardiopulmonary processes. Patient's CTA head neck showed no large vessel stenosis no acute intracranial processes identified. Patient ambulated here in the emergency department finding difficulty orthostatic vital signs were negative as well. Patient states that she is feeling much improved and would like to go home at this point time. She was advised follow-up with her primary care physician outpatient setting. She is encouraged to return with worsening symptoms or concerns. She was vies follow- up with pain management. All question concerns answered she was discharged home in stable condition. Final impression: Right neck pain Headache Disposition: Patient will be discharged home in stable condition Supervising attending attestation: Anthony MCGHEE History of Present Illness Chief Complaint: Headache Narrative Narrative: Patient is a 69-year-old female with history of muscle spasms in the neck, tension headaches, asthma, hypertension obesity RA depression who presents to the [facility] apartment for worsening pain to the right neck, headache. Patient was seen here yesterday, diagnosed with muscle spasm, given tizanidine. Patient was given pain medicine as well as Valium yesterday. Patient was discharged home. Today, the patient was in much more severe pain, the pain was on the right side the neck to the right head. And she is here for reevaluation [facility] Medical History Cardiology follow-up encounter History of Holter monitoring Pain FAITH (dyspnea on exertion) Chest pressure Wears glasses Wears dentures CPAP (continuous positive airway pressure) dependence Arthritis Osteoarthritis of left knee Left knee pain Stress incontinence Difficulty chewing History of IBS Former smoker Neuropathy Sjogrens syndrome Leg cramps History of edema History of echocardiogram History of stress test History of irregular heartbeat Chronic low back pain Sensory polyneuropathy Elevated hemoglobin A1c Rheumatoid arthritis TROY (obstructive sleep apnea) Urinary incontinence, urge Urinary urgency Urinary frequency PND (post-nasal drip) Bipolar 2 disorder Obesity (BMI 30-39.9) Mild intermittent asthma in adult without complication Mild mitral regurgitation Mild dilation of ascending aorta TROY (obstructive sleep apnea) Depression Right flank pain Spinal stenosis of lumbar region Hypertension Hyperlipidemia GERD (gastroesophageal reflux disease) Asthma OCD (obsessive compulsive disorder) Chest pain Thoracic aortic aneurysm without rupture Paroxysmal atrial tachycardia Nephrolithiasis Herpes simplex with unspecified complication Loss of appetite Anxiety Lightheadedness Long-term use of high-risk medication Obesity Sinusitis Eustachian tube dysfunction Otitis media Nightmares Rhinorrhea Segmental and somatic dysfunction of cervical region Segmental and somatic dysfunction of thoracic region Back sprain Epigastric abdominal pain Encounter for screening for malignant neoplasm of colon Home Medications ?Medication ?Instructions ?Recorded ?Last Taken ?Type olanzapine 10 mg tablet 10 mg PO QHS 10/08/20 Unknow n History potassium chloride 20 mEq 20 meq PO BID 10/08/20 Unkno wn History tablet,extended release acetaminophen 500 mg tablet 500 mg PO Q6H PRN pain #30 tabs 03/24/21 Unknown Rx oxybutynin chloride 10 mg 10 mg PO DAILY 07/31/21 Unkn own History tablet,extended release 24 hr duloxetine 30 mg capsule,delayed 30 mg PO BID 07/07/23 Unknown History release trazodone 150 mg tablet 150 mg PO QHS 09/28/23 Unkno wn History vibegron 75 mg tablet (Gemtesa) 75 mg PO DAILY 4 Unknown History aspirin 81 mg tablet,delayed 81 mg PO DAILY 11/24/23 1 History release (Adult Aspirin Regimen) cholecalciferol (vitamin D3) 1,250 1,250 mcg PO .QOTU 04/04/24 Unknown History mcg (50,000 unit) capsule lisinopril 20 mg tablet 10 mg PO BID 08/16/24 Unknow n History lubiprostone 24 mcg capsule 24 mcg PO BID constipation #180 08/16/24 08/30/24 06:30 Rx (Amitiza) caps ondansetron 4 mg disintegrating 4 mg PO Q8H PRN nausea and vomiting 08/16/24 Unknown History tablet pantoprazole 40 mg tablet,delayed 40 mg PO QDAY 08/30/24 06:30 History release polyethylene glycol 3350 17 gram 17 g PO DAILY PRN con stipation 08/16/24 Unknown History oral powder packet (Miralax) guaifenesin 1,200 mg tablet, 1,200 mg PO Q12H #60 tabs 08/20/24 Unknown Rx extended release 12 hr multivitamin 1 tab PO QAM 09/20/24 Unknow n History tizanidine 4 mg capsule (Zanaflex) 4 mg PO Q8H PRN mus saniya spasticity 09/28/24 Unknown Rx #20 caps Allergy/AdvReac Type Severity Reaction Status Date / Time tramadol (From Ultram) Allergy Intermediate Itching Verified 09/28/24 09:21 oxycodone (From Percocet) Allergy Mild Itching Verified 09/28/24 09:21 cephalexin (From Keflex) Allergy Rash Verified 09/28/24 09:21 flurazepam (From Dalmane) Allergy Other Verified 09/28/24 09:21 divalproex sodium (From AdvReac Intermediate Other - Verified 09/28/24 09:21 Depakote) nightmares quetiapine (From Seroquel) AdvReac Mild Other - Verified 09/28/24 09:21 shaking, lightheaded and abnormal dreams meloxicam AdvReac Unknown Verified 09/28/24 09:21 Family History Father Cancer Alcoholism Hypertension Mother Heart disease H/O weight disorder Myocardial infarction Hypertension COPD (chronic obstructive pulmonary disease) Skin cancer Sister Hypertension Surgical History Hx of cystoscopy History of cardiac catheterization Hx of surgical procedure bladder sling removal History of bilateral carpal tunnel release H/O eye surgery H/O hand surgery History of total right knee replacement History of appendectomy H/O: hysterectomy Hx laparoscopic cholecystectomy Social History (Updated 09/29/24 @ 15:07 by Enid Braun) household members: none Smoking Status: Former smoker quit date: 08/29/82 pack-years: 15 second hand exposure: No alcohol intake: never substance use type: does not use ROS ROS ED ROS Narrative Constitutional: Negative for fever, chills, weight loss, weakness Eyes: Negative for vision loss, vision change, double vision ENT: Negative for any sore throat, ear pain, congestion Cardiovascular: Negative for any chest pain, tightness, palpitations Respiratory: Negative for any cough, sputum production, hemoptysis, dyspnea, dyspnea on exertion, orthopnea Gastrointestinal: Negative for any abdominal pain, nausea, vomiting, diarrhea, constipation, blood in stool, blood in vomit : Negative for any urinary frequency, dysuria, retention, blood in urine Muscle skeletal: Negative for any back pain. Positive for neck pain Neurological: Negative for any syncope, dizziness. Positive for headache Skin: Negative for any rashes, itching, abrasions, lacerations Psychiatric: Negative for any depression, anxiety, stress, suicidal ideation, homicidal ideation Hematologic: Negative for any excessive bruising, easy bleeding EXAM Physical Exam Narrative Exam Narrative: Vital signs reviewed. Patient is alert and orient x 4 but does appear to be slightly lethargic HEET: Head normocephalic atraumatic, TMs clear bilaterally. Posterior pharynx is clear, moist mucous membranes. Nares clear bilaterally. Neck: Supple with no lymphadenopathy or tenderness. No signs of meningismus. Patient does have pain to palpation to the right posterior neck all the way up to the lateral neck into the base of the skull, no bruit, murmur noted. Cardiac: Regular rate and rhythm no murmurs gallops or rubs, equal peripheral pulses bilaterally. Respiratory: Lungs clear to auscultation bilaterally. No chest tenderness. Abdomen: Soft, nontender, nondistended. No abdominal bruit or pulsatile masses. No hepatosplenomegaly Extremities: No peripheral edema, no signs of gross trauma or deformity. Active full range of motion of all extremities. Neuro: Cranial nerves II through XII intact, no focal neurological deficits. NIH stroke scale 0 Skin: Clean dry and intact with no rash, purpura, petechiae, vesicles or pustules. Backs/flank: No CVA tenderness, no midline spinal tenderness, no deformity. Psych: Normal mood and affect. No SI, HI or acute psychosis. Const Vital Signs: 09/29/24 14:01 09/29/24 16:01 09/29/24 16:50 Temperature 97.6 F L Temperature Source Temporal Pulse Rate 64 59 L Pulse Rate [Lying] 69 Pulse Rate [Sitting (for 1 minute prior to obtaining)] 72 Pulse Rate [Standing (for 1 minute prior to obtaining)] 73 Respiratory Rate 16 22 H Blood Pressure 82/51 L 125/74 H Blood Pressure [Lying] 135/100 H Blood Pressure [Sitting (for 1 minute prior to obtaining)] 136/76 H Blood Pressure [Standing (for 1 minute prior to obtaining)] 121/92 H Blood Pressure Mean 61 91 Blood Pressure Mean [Lying] 111 Blood Pressure Mean [Sitting (for 1 minute prior to obtaining)] 96 Blood Pressure Mean [Standing (for 1 minute prior to obtaining)] 101 Pulse Ox 94 99 Oxygen Delivery Method Room Air Room Air [facility] Lab Data Labs: Laboratory Results - last 24 hr 09/29/24 09/29/24 14:20 15:25 WBC 10.9 RBC 3.82 L Hgb 8.7 L Hct 30.5 L MCV 79.8 L MCH 22.8 L MCHC 28.5 L RDW Std Deviation 53.3 H RDW Coeff of Jeramy 18.3 H Plt Count 398 MPV 8.5 Immature Gran % (Auto) 0.400 Neut % (Auto) 70.0 Lymph % (Auto) 21.9 [place] % (Auto) 6.9 Eos % (Auto) 0.6 Baso % (Auto) 0.2 Absolute Neuts (auto) 7.6 Absolute Lymphs (auto) 2.38 Nucleated RBC % 0 Sodium 132 L Potassium 4.2 Chloride 102 Carbon Dioxide 23.0 Anion Gap 8 BUN 22 H Creatinine 0.76 Estim Creat Clear Calc 77.71 Est GFR (MDRD) Af Amer 98 Est GFR (MDRD) Non-Af 81 BUN/Creatinine Ratio 29.1 H Glucose 172 H Calcium 8.8 Total Bilirubin 0.20 AST 14 L ALT 14 Alkaline Phosphatase 89 Ammonia 18.0 Troponin I High Sens 6 Total Protein 7.5 Albumin 2.9 L Globulin 4.6 H Albumin/Globulin Ratio 0.6 L Radiography Diagnostic Testing: Clinical Impression(s) from Imaging Studies Head/Neck CTA 09/29/24 14:27 IMPRESSION: No large vessel steno. No acute intracranial CT process identified. One or more dose reduction techniques were used (e.g., Automated exposure control, adjustment of the mA and/or kV according to patient size, use of iterative reconstruction technique). Reading Location: [facility] Chest X-Ray 09/29/24 15:13 IMPRESSION: UNREMARKABLE SINGLE VIEW OF THE CHEST AND ABDOMEN. Reading Location: [facility] EKG EKG shows a normal sinus rhythm: Attestation: I personally reviewed and interpreted this EKG as follows: Comments: Normal EKG, rate of 70 bpm, CA interval 170 ms, QRS duration 98 ms, no acute ST elevation, no acute infarct noted. Treatment and Re-Evaluation :: Differential diagnosis includes however is not limited to: CVA, TIA, hemorrhage, torticollis, carotid dissection, polypharmacy, electrode abnormality, hypotension, hypoperfusion Patient's blood pressure is significant low at 80/50. Patient's remainder of the vital signs are stable. Patient presents to the [facility] for ongoing pain of the right neck, right side of her head. Patient's NIH stroke scale was 0. There is no neurological focal deficits. However patient does have pain which seems muscle skeletal the right neck, the right side of her head. There is no rash. Patient will receive a full cardiac workup including 1 L normal saline to increase the blood pressure. CTA of the head and neck needs to be completed. Other lab values will be drawn as well as a chest x-ray. All radiologic examinations were read, reviewed by the emergency department attending. From these reads, a plan of care will be put in place. Patient's laboratory values shows no leukocytosis, there is a chronic anemia with a hemoglobin between 10.4 to an 8.7 over the last 6 months. Patient's chemistry shows send 132, kidney function within normal limits. Ammonia level is currently pending. Patient's chest x-ray shows unremarkable exam. CTA of the head and neck shows no large vessel stenosis, no acute intracranial CT process identified. Patient's blood pressures improved with the fluid without 135/74, pulse 59, respirations 22. 99% on room air. Patient was able to ambulate without any difficulty, patient's orthostatic vital signs were negative. At this time, do not believe the patient is suffering any CVA, patient responded well to hydration. Patient needs to follow-up with her PCP. For this chronic pain, she needs to follow-up with her pain management. All questions were answered, patient stable for discharge. Discharge Plan Triage Chief Complaint: Headache ED Midlevel Provider: Jani Posey ED Provider: Anthony Torres Dx/Rx/DC Orders Clinical Impression: Muscle spasms of neck, Headache Instructions: ED Muscle Spasm, ED Pain, Acute, Uncertain Cause Prescriptions: No Action olanzapine 10 mg tablet 10 mg PO QHS potassium chloride 20 mEq tablet extended release 20 meq PO BID cholecalciferol (vitamin D3) 1,250 mcg (50,000 unit) capsule 1,250 mcg PO .QOTU oxybutynin chloride 10 mg tablet extended release 24hr 10 mg PO DAILY trazodone 150 mg tablet 150 mg PO QHS lisinopril 20 mg tablet 10 mg PO BID Gemtesa 75 mg tablet 75 mg PO DAILY pantoprazole 40 mg tablet,delayed release (DR/EC) 40 mg PO QDAY ondansetron 4 mg tablet,disintegrating 4 mg PO Q8H PRN (Reason: nausea and vomiting) lubiprostone [Amitiza] 24 mcg capsule 24 mcg PO BID Qty: 180 1RF multivitamin Tablet 1 tab PO QAM acetaminophen 500 mg tablet 500 mg PO Q6H PRN (Reason: pain) Qty: 30 0RF polyethylene glycol 3350 [Miralax] 17 gram powder in packet 17 g PO DAILY PRN (Reason: constipation) duloxetine 30 mg capsule,delayed release(DR/EC) 30 mg PO BID tizanidine [Zanaflex] 4 mg capsule 4 mg PO Q8H PRN (Reason: muscle spasticity) Qty: 20 0RF aspirin [Adult Aspirin Regimen] 81 mg tablet,delayed release (DR/EC) 81 mg PO DAILY guaifenesin 1,200 mg tablet extended release 12hr 1,200 mg PO Q12H Qty: 60 6RF Primary Care Provider: Bay Ramos Referrals: Bay Ramos DO [Primary Care Provider] - Activity Restrictions/Additional Instructions: You had a negative CT scan of the brain, CTA of the head and neck, all of your labs are within normal limits. You need to follow-up with your pain management physician as well as your PCP Print Language: Azeri Disposition Disposition: Home, Self Care
[2024-09-29 14:48] LABS: Absolute Lymphocyte Count 2.38 X10^3/uL (0.83-4.51); Absolute Neutrophil Count 7.6 X10^3/uL (2.0-7.7); Basophil# 0.02 X10^3/uL; Basophil% 0.2 % (0-1); Eosinophil# 0.06 X10^3/uL; Eosinophils% 0.6 % (0-5); Hematocrit 30.5 % (37-47); Hemoglobin 8.7 g/dL (12.0-15.0); Lymphocyte # 2.38 X10^3/ul (0.83-4.51); Lymphocyte % 21.9 % (19-41); Mean Corp Hgb Conc 28.5 g/dL (32-36); Mean Corpuscular Hgb 22.8 pg (27.0-32.0); Mean Corpuscular Volume 79.8 fL (81-99); Mean Platelet Vol. 8.5 fl (6.2-12.0); Monocyte# 0.75 X10^3/uL; Monocyte% 6.9 % (0-10); NRBC Flagged by Analyzer 0 % (0-5); Neutrophil # 7.62 X10^3/uL (2.7-7.7); Platelet Count 398 K/mm3 (150-450); RBC Distribution Width CV 18.3 % (11.6-14.6); RBC Distribution Width SD 53.3 fl (35.1-43.9); Red Blood Count 3.82 M/mm3 (4.2-5.4); White Blood Count 10.9 K/mm3 (4.4-11.0)
[2024-09-29] MEDS: Acetaminophen 500 MG Tablet 1000 MG PO (14:50)
[2024-09-29] MEDS: Metoclopramide 10 MG/2 ML Vial IV (14:51)
[2024-09-29 15:05] LABS: ALB/GLOB Ratio 0.6 RATIO (0.9-2.4); AST(SGOT) 14 U/L (15-37); Alanine Aminotransfer ALT/SGPT 14 U/L (13-56); Albumin, Serum 2.9 g/dL (3.2-5.0); Alkaline Phosphatase 89 U/L (45-117); Anion Gap 8 (5-15); BUN 22 mg/dL (7-18); BUN/Creat Ratio 29.1 RATIO (10-20); Calcium,Total 8.8 mg/dL (8.5-10.1); Chloride 102 mmol/L (98-107); Creatinine, Serum 0.76 mg/dL (0.55-1.02); EST Glomerular Filtration Rate 81 mL/min (>60); Est Glom Filt Rate - Afr Amer 98 mL/min (>60); Estimated Creatinine Clearance 77.71 ml/min; Globulin 4.6 g/dL (2.2-4.2); Glucose 172 mg/dL (74-106); Potassium 4.2 mmol/L (3.5-5.1); Protein, Total 7.5 g/dL (6.4-8.2); Sodium Level 132 mmol/L (136-145); Troponin-I HS 6 pg/mL (3.0-54.0)
--- NOTE | 2024-09-29 15:13 | RAD_ITS ---
PROCEDURE: CHEST 1 VIEW (PORTABLE) REASON FOR EXAM: Cough TECHNIQUE: Single frontal image including the chest and abdomen. COMPARISON: None. FINDINGS: The cardiothymic contour is normal. The lungs are clear. Bowel gas pattern is normal. No evidence of bowel obstruction or free air. The bones are unremarkable. No radiopaque foreign body is identified. RAD/Chest 1 View (Portable) IMPRESSION: UNREMARKABLE SINGLE VIEW OF THE CHEST AND ABDOMEN. Reading Location: [facility]
[2024-09-29 16:01] VITALS: BP 125/74; PULSE 59; RESP 22; O2SAT 99
[2024-09-29 16:50] VITALS: BP 121/92; BP 135/100; BP 136/76; PULSE 69; PULSE 72; PULSE 73
[2024-09-29 16:58] VITALS: O2SAT 98
[2024-09-29 17:21] VITALS: BP 126/82; PULSE 78; RESP 20; TEMP 36.6; O2SAT 100
== END 2024-09-29 17:25 | disposition home or self-care (01) ==
PROVIDERS: Nurse Practitioner; Emergency Provider Emergency Medicine; PCP Family Medicine; Visit Provider Emergency Medicine
DX: M54.2 Cervicalgia (principal); F31.9 Bipolar disorder, unspecified; R51.9 Headache, unspecified; M62.838 Other muscle spasm; G47.33 Obstructive sleep apnea (adult) (pediatric); Z87.891 Personal history of nicotine dependence
CPT/HCPCS: 70496; 70498; 71045; 80053; 82140; 84484; 85025; 93005; 96361; 96374; 96376; 99285; Q9967; A4216; J2405

== ENCOUNTER → 2024-10-09 | Outpatient (CLI) | payer MEDICAID, SELFPAY ==
--- NOTE | 2024-10-09 11:35 | RAD_ITS ---
PROCEDURE: CERV SPINE 4 OR 5 VIEWS REASON FOR EXAM: Neck pain. TECHNIQUE: 5 views of the cervical spine. COMPARISON: CTA head and neck from 09/29/2024. FINDINGS: Cervical vertebral bodies are seen to the C7-T1 level on the sagittal view. Cervical vertebral bodies maintain a normal height. There is straightening of the cervical lordosis. There is mild levoscoliosis of the cervical spine. Disc space narrowing with endplate spurring is on a severe basis from C5-C7. No acute fracture or subluxation is identified. Prevertebral soft tissues are unremarkable. Atlantodental interval is intact. There is osseous bilateral neural foraminal narrowing at C5-C6 and C6-C7. Odontoid process is intact. Lateral masses align. RAD/Cerv Spine 4 or 5 Views IMPRESSION: 1. No acute cervical spine fracture. 2. Degenerative changes greatest from C5-C7. If clinical concern for radiculop athy, MRI is a more sensitive exam. Reading Location: [facility]
[2024-10-09 12:44] LABS: Absolute Neutrophil Count 10.4 X10^3/uL (2.0-7.7); Basophil# 0.04 X10^3/uL; Basophil% 0.3 % (0-1); Eosinophil# 0.02 X10^3/uL; Eosinophils% 0.1 % (0-5); Hemoglobin 9.9 g/dL (12.0-15.0); Lymphocyte % 19.4 % (19-41); Mean Corp Hgb Conc 28.3 g/dL (32-36); Mean Corpuscular Hgb 21.7 pg (27.0-32.0); Mean Corpuscular Volume 76.8 fL (81-99); Mean Platelet Vol. 8.2 fl (6.2-12.0); Monocyte# 1.12 X10^3/uL; Monocyte% 7.8 % (0-10); NRBC Flagged by Analyzer 0 % (0-5); Neutrophil # 10.38 X10^3/uL (2.7-7.7); Neutrophil % 71.8 % (47-70); Platelet Count 512 K/mm3 (150-450); RBC Distribution Width CV 18.1 % (11.6-14.6); RBC Distribution Width SD 50.1 fl (35.1-43.9); Red Blood Count 4.56 M/mm3 (4.2-5.4); White Blood Count 14.4 K/mm3 (4.4-11.0)
[2024-10-09 12:59] LABS: Erythrocyte Sedimentation Rate 77 mm/hr (0-30)
[2024-10-09 13:55] LABS: CRP 5.12 mg/L (0.0-3.0)
== END | disposition home or self-care (01) ==
LOC: RAD 11:33
PROVIDERS: PCP Family Medicine; Referring Provider Clinical Nurse Specialist Adult Health; Visit Provider Clinical Nurse Specialist Adult Health
DX: M50.30 Other cervical disc degeneration, unspecified cervical region (principal)
CPT/HCPCS: 36415; 72050; 85025; 85652; 86140

== ENCOUNTER → 2024-10-25 | Outpatient (CLI) | payer MEDICAID, SELFPAY ==
[2024-10-25 15:06] LABS: Absolute Lymphocyte Count 3.19 X10^3/uL (0.83-4.51); Absolute Neutrophil Count 5.4 X10^3/uL (2.0-7.7); Basophil# 0.03 X10^3/uL; Basophil% 0.3 % (0-1); Eosinophils% 1.1 % (0-5); Hematocrit 31.5 % (37-47); Hemoglobin 8.9 g/dL (12.0-15.0); Lymphocyte # 3.19 X10^3/ul (0.83-4.51); Lymphocyte % 33.6 % (19-41); Mean Corp Hgb Conc 28.3 g/dL (32-36); Mean Corpuscular Hgb 21.8 pg (27.0-32.0); Mean Corpuscular Volume 77.2 fL (81-99); Mean Platelet Vol. 8.4 fl (6.2-12.0); Monocyte# 0.76 X10^3/uL; NRBC Flagged by Analyzer 0 % (0-5); Neutrophil # 5.37 X10^3/uL (2.7-7.7); Neutrophil % 56.5 % (47-70); Platelet Count 395 K/mm3 (150-450); RBC Distribution Width CV 18.9 % (11.6-14.6); RBC Distribution Width SD 52.9 fl (35.1-43.9); Red Blood Count 4.08 M/mm3 (4.2-5.4); White Blood Count 9.5 K/mm3 (4.4-11.0)
[2024-10-25 15:56] LABS: Anion Gap 8 (5-15); BUN 16 mg/dL (4-19); BUN/Creat Ratio 26.4 RATIO (10-20); Calcium 9.6 mg/dL (7.6-11.0); Carbon Dioxide 25.6 mmol/L (22.0-29.0); Chloride 98 mmol/L (96-108); Creatinine, Serum 0.6 mg/dL (0.6-1.0); EST Glomerular Filtration Rate 98 (>60); Glucose 87 mg/dL (70-99); Potassium 4.2 mmol/L (3.3-5.1); Sodium Level 132 mmol/L (133-145)
== END | disposition home or self-care (01) ==
LOC: LAB 14:09
PROVIDERS: Nurse Practitioner Acute Care; PCP Family Medicine; Referring Provider Internal Medicine Cardiovascular Disease; Visit Provider Internal Medicine Cardiovascular Disease
DX: I10 Essential (primary) hypertension (principal); D64.9 Anemia, unspecified
CPT/HCPCS: 36415; 80048; 84443; 85025

== ENCOUNTER 2024-11-21 12:21 | Day surgery (SDC) | payer MEDICAID, SELFPAY ==
--- NOTE | 2024-11-16 12:15 | PAT.ANE_ITS ---
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 When Was Last Pacemaker Check QUESTION #4 FULL TEXT: You/Your Family Experience fever (hyperthermia) with Anesthesia Last Oral Intake Last Oral intake: Last Oral Intake NPO since Meds taken in AM with sips of water? Meds patient instructed to take am of surgery PONV PONV - pump house engineer: PONV - pump house engineer Female Yes 11/16/24 10:46 HX of Motion Sickness No 11/16/24 10:46 HX of N/V After Surgery No 11/16/24 10:46 Non-Smoker Yes 11/16/24 10:46 Duration of Surgery greater No 11/16/24 10:46 than 60 minutes Number of Risk Factors 2 11/16/24 10:46 PONV Score Moderate Risk 11/16/24 10:46 Height & Weight Height & Weight: Anesthesia: Height & Weight Height 5 ft 4 in 10/25/24 07:48 Respiratory Assessment Respiratory Assessment - pump house engineer: Respiratory Tract Infection Hx - pump house engineer Hx Respiratory Tract Infection No 11/16/24 10:46 STOP Sleep Apnea STOP Sleep Apnea - pump house engineer: STOP Sleep Apnea - pump house engineer Hx Hypertension Yes: CONTROLLED WITH MED 11/16/24 10:46 Hx Sleep Apnea Yes 11/16/24 10:46 CPAP Yes: NON COMPLIANT 11/16/24 10:46 BIPAP No 11/16/24 10:46 Do you snore loudly (louder than talking or can be heard Do you often feel tired/ fatigued/ sleepy during daytime? Has anyone observed you stop breathing during sleep? STOP Results Positive 11/16/24 10:46 QUESTION #5 FULL TEXT : Do you snore loudly (louder than talking or can be heard through closed doors)? 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 Specify any problems Hx of Preganancy in last 3 No 11/16/24 10:46 Months Nurse Filling Out Transfusion [facility] 11/16/24 10:46 & Questions: Date: 11/16/24 11/16/24 10:46 Time: 10:54 11/16/24 10:46 Patient unable to answer at this time (ie. confused, unrespo /Reproduction History /Reproductive History - pump house engineer: /Reproductive Hx- pump house engineer Hx Now No 11/16/24 10:46 Gestational Age (in weeks): EDC: Hx Hx Para Hx Section SAB PFSH Medical History Cardiology follow-up encounter History of Holter monitoring Pain FAITH (dyspnea on exertion) Chest pressure Wears glasses Wears dentures CPAP (continuous positive airway pressure) dependence Arthritis Osteoarthritis of left knee Left knee pain Stress incontinence Difficulty chewing History of IBS Former smoker Neuropathy Sjogrens syndrome Leg cramps History of edema History of echocardiogram History of stress test History of irregular heartbeat Chronic low back pain Sensory polyneuropathy Elevated hemoglobin A1c Rheumatoid arthritis TROY (obstructive sleep apnea) Urinary incontinence, urge Urinary urgency Urinary frequency PND (post-nasal drip) Bipolar 2 disorder Obesity (BMI 30-39.9) Mild intermittent asthma in adult without complication Mild mitral regurgitation Mild dilation of ascending aorta TROY (obstructive sleep apnea) Depression Right flank pain Spinal stenosis of lumbar region Hypertension Hyperlipidemia GERD (gastroesophageal reflux disease) Asthma OCD (obsessive compulsive disorder) Chest pain Thoracic aortic aneurysm without rupture Paroxysmal atrial tachycardia Nephrolithiasis Herpes simplex with unspecified complication Loss of appetite Anxiety Lightheadedness Long-term use of high-risk medication Obesity Sinusitis Eustachian tube dysfunction Otitis media Nightmares Rhinorrhea Segmental and somatic dysfunction of cervical region Segmental and somatic dysfunction of thoracic region Back sprain Epigastric abdominal pain Encounter for screening for malignant neoplasm of colon Home Medications ?Medication ?Instructions ?Recorded ?Last Taken ?Type olanzapine 10 mg tablet 10 mg PO QHS 10/08/20 Unknow n History potassium chloride 20 mEq 20 meq PO BID 10/08/20 Unkno wn History tablet,extended release acetaminophen 500 mg tablet 500 mg PO Q6H PRN pain #30 tabs 03/24/21 Unknown Rx oxybutynin chloride 10 mg 10 mg PO DAILY 07/31/21 Unkn own History tablet,extended release 24 hr duloxetine 30 mg capsule,delayed 30 mg PO BID 07/07/23 Unknown History release trazodone 150 mg tablet 150 mg PO QHS 09/28/23 Unkno wn History vibegron 75 mg tablet (Gemtesa) 75 mg PO DAILY 4 Unknown History aspirin 81 mg tablet,delayed 81 mg PO DAILY 11/24/23 0 11/07/24 History release (Adult Aspirin Regimen) cholecalciferol (vitamin D3) 1,250 1,250 mcg PO .QOTU 04/04/24 Unknown History mcg (50,000 unit) capsule lisinopril 20 mg tablet 10 mg PO BID 08/16/24 Unknow n History lubiprostone 24 mcg capsule 24 mcg PO BID constipation #180 08/16/24 08/30/24 06:30 Rx (Amitiza) caps ondansetron 4 mg disintegrating 4 mg PO Q8H PRN nausea and vomiting 08/16/24 Unknown History tablet pantoprazole 40 mg tablet,delayed 40 mg PO QDAY 08/30/24 06:30 History release metoprolol tartrate 25 mg tablet 25 mg PO BID #180 tab s 10/25/24 Unknown Rx amlodipine 5 mg tablet 5 mg PO DAILY #30 tabs 11/02 Unknown Rx Allergy/AdvReac Type Severity Reaction Status Date / Time tramadol (From Ultram) Allergy Intermediate Itching Verified 11/16/24 10:35 oxycodone (From Percocet) Allergy Mild Itching Verified 11/16/24 10:35 cephalexin (From Keflex) Allergy Rash Verified 11/16/24 10:35 flurazepam (From Dalmane) Allergy Other Verified 11/16/24 10:35 shellfish derived Allergy RASH Verified 11/16/24 10:35 divalproex sodium (From AdvReac Intermediate Other - Verified 11/16/24 10:35 Depakote) nightmares quetiapine (From Seroquel) AdvReac Mild Other - Verified 11/16/24 10:35 shaking, lightheaded and abnormal dreams meloxicam AdvReac Unknown Verified 11/16/24 10:35 Family History Father Cancer Alcoholism Hypertension Mother Heart disease H/O weight disorder Myocardial infarction Hypertension COPD (chronic obstructive pulmonary disease) Skin cancer Sister Hypertension Surgical History Hx of cystoscopy History of cardiac catheterization Hx of surgical procedure bladder sling removal History of bilateral carpal tunnel release H/O eye surgery H/O hand surgery History of total right knee replacement History of appendectomy H/O: hysterectomy Hx laparoscopic cholecystectomy Social History household members: none Smoking Status: Former smoker quit date: 08/29/82 pack-years: 15 second hand exposure: No alcohol intake: never substance use type: does not use Audit: Pertinent Findings Pertinent Findings EKG Perinent findings: NSR (09/29/24) Stress test pertinent findings: Stress Test 11/11/2023: Impression: 1. Pharmacologic (Regadenoson) evaluation 2. Peak pharmacologic ECG with no ischemic changes. 3. There were no cardiac dysrhythmias pretest, during pharmacologic infusion, or recovery. 5. Small to moderate size reversible perfusion defect of the anterior wall however processing artifact cannot be excluded. Recommend further evaluation with coronary CT angio. 6. The gated Cardiolite study reports an LVEF of 76% Heart catheterization pertinent findings: CARDIAC CATHETERIZATION 11/29/23: CONCLUSIONS No angiographically significant CAD Normal LV systolic function Normal Aortic root Recommendation Anesthesia Recommendation Anesthesia recommendation: OPTIMIZED for anesthesia
--- NOTE | 2024-11-21 12:58 | PCM.PRE.AN2 ---
ASA Classification* ASA Classification ASA Classification: 2 Assessment & Plan Anesthesia* Anesthesia Assessment Anesthesia Assessment: Discussed sedation and/or anesthesia options, risks, benefits, and alternatives with patient/parents/legal guardian/POA. Questions invited. The patient/parents/legal guardian/POA seems to understand and agrees to proceed with anesthesia plan. Reviewed the physical assessment, medical history, allergy history and patient home medications list prior to surgery/procedure/anesthetic and documented any changes. Performed airway and anesthesia risk assessments. Anesthesia Type Anesthesia Type: MAC Anesthesia Focused Assessment* Airway Assessment Mouth opens: >3 cm Mallampati Score: II Focused Labs Anesthesia Preop lab: CBC WBC 9.5 K/mm3 (4.4-11.0) 10/25/24 14:10/25/24 RBC 4.08 M/mm3 (4.2-5.4) L 10/25/24 14:10/25/24 Hgb 8.9 g/dL (12.0-15.0) L 10/25/24 14:10/25/24 Hct 31.5 % (37-47) L 10/25/24 14:10/25/24 Plt Count 395 K/mm3 (150-450) 10/25/24 14:10/25/24 CHEMISTRY Potassium 4.2 mmol/L (3.3-5.1) 10/25/24 14:10/25/24 Sodium 132 mmol/L (133-145) L 10/25/24 14:10/25/24 Magnesium 2.1 mg/dL (1.6-2.6) 06/20/23 14:57 06/20/23 BUN 16 mg/dL (4-19) 10/25/24 14:10/25/24 Creatinine 0.6 mg/dL (0.6-1.0) 10/25/24 14:10/25/24 Glucose 87 mg/dL (70-99) 10/25/24 14:10/25/24 TSH 1.800 uIU/mL (0.300-4.200) 10/25/24 14:10/25/24 COAG PT 12.9 SECONDS (11.7-14.9) 11/14/15 11:30 11/14/15 Pre-Assessment Diagnosis/Proposed Procedure Planned Operative Procedure(s): EGD, COLONOSCOPY Anesthesia History 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 When Was Last Pacemaker Check QUESTION #4 FULL TEXT: You/Your Family Experience fever (hyperthermia) with Anesthesia Last Oral Intake Last Oral intake: Last Oral Intake NPO since Meds taken in AM with sips of water? Meds patient instructed to take am of surgery PONV PONV - transmission operator: PONV - transmission operator Female Yes 11/16/24 10:46 HX of Motion Sickness No 11/16/24 10:46 HX of N/V After Surgery No 11/16/24 10:46 Non-Smoker Yes 11/16/24 10:46 Duration of Surgery greater No 11/16/24 10:46 than 60 minutes Number of Risk Factors 2 11/16/24 10:46 PONV Score Moderate Risk 11/16/24 10:46 Height & Weight Height & Weight: Anesthesia: Height & Weight Height 5 ft 4 in 10/25/24 07:48 Respiratory Assessment Respiratory Assessment - transmission operator: Respiratory Tract Infection Hx - transmission operator Hx Respiratory Tract Infection No 11/16/24 10:46 STOP Sleep Apnea STOP Sleep Apnea - transmission operator: STOP Sleep Apnea - transmission operator Hx Hypertension Yes: CONTROLLED WITH MED 11/16/24 10:46 Hx Sleep Apnea Yes 11/16/24 10:46 CPAP Yes: NON COMPLIANT 11/16/24 10:46 BIPAP No 11/16/24 10:46 Do you snore loudly (louder than talking or can be heard Do you often feel tired/ fatigued/ sleepy during daytime? Has anyone observed you stop breathing during sleep? STOP Results Positive 11/16/24 10:46 QUESTION #5 FULL TEXT : Do you snore loudly (louder than talking or can be heard through closed doors)? 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 Specify any problems Hx of Preganancy in last 3 No 11/16/24 10:46 Months Nurse Filling Out Trans[facility] 11/16/24 10:46 & Questions: Date: 11/16/24 11/16/24 10:46 Time: 10:54 11/16/24 10:46 Patient unable to answer at this time (ie. confused, unrespo /Reproduction History /Reproductive History - transmission operator: /Reproductive Hx- transmission operator Hx Now No 11/16/24 10:46 Gestational Age (in weeks): EDC: Hx Hx Para Hx Section SAB PFSH Medical History Cardiology follow-up encounter History of Holter monitoring Pain FAITH (dyspnea on exertion) Chest pressure Wears glasses Wears dentures CPAP (continuous positive airway pressure) dependence Arthritis Osteoarthritis of left knee Left knee pain Stress incontinence Difficulty chewing History of IBS Former smoker Neuropathy Sjogrens syndrome Leg cramps History of edema History of echocardiogram History of stress test History of irregular heartbeat Chronic low back pain Sensory polyneuropathy Elevated hemoglobin A1c Rheumatoid arthritis TROY (obstructive sleep apnea) Urinary incontinence, urge Urinary urgency Urinary frequency PND (post-nasal drip) Bipolar 2 disorder Obesity (BMI 30-39.9) Mild intermittent asthma in adult without complication Mild mitral regurgitation Mild dilation of ascending aorta TROY (obstructive sleep apnea) Depression Right flank pain Spinal stenosis of lumbar region Hypertension Hyperlipidemia GERD (gastroesophageal reflux disease) Asthma OCD (obsessive compulsive disorder) Chest pain Thoracic aortic aneurysm without rupture Paroxysmal atrial tachycardia Nephrolithiasis Herpes simplex with unspecified complication Loss of appetite Anxiety Lightheadedness Long-term use of high-risk medication Obesity Sinusitis Eustachian tube dysfunction Otitis media Nightmares Rhinorrhea Segmental and somatic dysfunction of cervical region Segmental and somatic dysfunction of thoracic region Back sprain Epigastric abdominal pain Encounter for screening for malignant neoplasm of colon Home Medications ?Medication ?Instructions ?Recorded ?Last Taken ?Type olanzapine 10 mg tablet 10 mg PO QHS 10/08/20 Unknown History potassium chloride 20 mEq 20 meq PO BID 10/08/20 Unknown History tablet,extended release acetaminophen 500 mg tablet 500 mg PO Q6H PRN pain #30 tabs 03/24/21 Unknown Rx oxybutynin chloride 10 mg 10 mg PO DAILY 07/31/21 Unknown History tablet,extended release 24 hr duloxetine 30 mg capsule,delayed 30 mg PO BID 07/07/23 Unknown History release trazodone 150 mg tablet 150 mg PO QHS 09/28/23 Unknown History vibegron 75 mg tablet (Gemtesa) 75 mg PO DAILY 11/16/23 Unknown History aspirin 81 mg tablet,delayed 81 mg PO DAILY 11/24/23 11/07/24 History release (Adult Aspirin Regimen) cholecalciferol (vitamin D3) 1,250 1,250 mcg PO .QOTU 04/04/24 Unknown History mcg (50,000 unit) capsule lisinopril 20 mg tablet 10 mg PO BID 08/16/24 Unknown History lubiprostone 24 mcg capsule 24 mcg PO BID constipation #180 08/16/24 08/30/24 06:30 Rx (Amitiza) caps ondansetron 4 mg disintegrating 4 mg PO Q8H PRN nausea and vomiting 08/16/24 Unknown History tablet pantoprazole 40 mg tablet,delayed 40 mg PO QDAY 08/16/24 08/30/24 06:30 History release metoprolol tartrate 25 mg tablet 25 mg PO BID #180 tabs 10/25/24 11/21/24 07:15 Rx amlodipine 5 mg tablet 5 mg PO DAILY #30 tabs 11/02/24 11/21/24 07:15 Rx Allergy/AdvReac Type Severity Reaction Status Date / Time tramadol (From [facility]) Allergy Intermediate Itching Verified 11/21/24 12:55 oxycodone (From Percocet) Allergy Mild Itching Verified 11/21/24 12:55 cephalexin (From Keflex) Allergy Rash Verified 11/21/24 12:55 flurazepam (From Dalmane) Allergy Other Verified 11/21/24 12:55 shellfish derived Allergy RASH Verified 11/21/24 12:55 divalproex sodium (From AdvReac Intermediate Other - Verified 11/21/24 12:55 Depakote) nightmares quetiapine (From Seroquel) AdvReac Mild Other - Verified 11/21/24 12:55 shaking, lightheaded and abnormal dreams meloxicam AdvReac Unknown Verified 11/21/24 12:55 Family History Father Cancer Alcoholism Hypertension Mother Heart disease H/O weight disorder Myocardial infarction Hypertension COPD (chronic obstructive pulmonary disease) Skin cancer Sister Hypertension Surgical History Hx of cystoscopy History of cardiac catheterization Hx of surgical procedure bladder sling removal History of bilateral carpal tunnel release H/O eye surgery H/O hand surgery History of total right knee replacement History of appendectomy H/O: hysterectomy Hx laparoscopic cholecystectomy Social History household members: none Smoking Status: Former smoker quit date: 08/29/82 pack-years: 15 second hand exposure: No alcohol intake: never substance use type: does not use Review of Systems (Anesthesia) ROS Narrative System reviewed and no additional complaints, except as documented.
[2024-11-21 13:02] VITALS: BP 138/90; PULSE 78; RESP 16; TEMP 36.6; O2SAT 99; BMI 38.2
--- NOTE | 2024-11-21 13:30 | EGD_PTH ---
PATIENT: JOCE JOY LOC: EN U#:[id number] AGE/SX: 69/F ROOM: RE11/21/[address]: Dr. Tato Posey DO : 1955 BED: DIS: 11/21/2024 SPEC #: [id number] RECD: 11/22/24 09:14 STATUS: SAWYER REVlad #: [id number] ABIOLA: 11/21/24 13:[address]: Tato Posey DEPT: SURGICAL PATHOLOGY RECD BY: Eran Crump ENTERED: 11/22/24 09:14 SP TYPE: EGD BIOPSY MATILDA DR: Dr. Bay Ramos, DO Clau Mcclain, KRISTINE Tissues: A - Gastric mucous membrane Procedures: Immunohistochemical Stains Surgery Specimen Level IV HEADER OPERATION: Colonoscopy, EGD with biopsy PRE-OP DIAGNOSIS: Anemia, encounter for screening for malignant neoplasm of colon TISSUE SUBMITTED: A- Gastric body biopsy MICROSCOPIC DIAGNOSIS STOMACH, GASTRIC BODY, BIOPSY: -OXYNTIC MUCOSA WITH CHRONIC INFLAMMATION. -IHC NEGATIVE FOR H PYLORI ORGANISMS. MICROSCOPIC DESCRIPTION Slides are reviewed. These tests were developed and their performance characteristics determined by [facility]. They may not have been cleared or approved by the [place]. Food and Drug Administration. The FDA has determined that such clearance or approval is not necessary. The above immunohistochemical/dualISH markers are ordered and reviewed by the Pathologist. GROSS DESCRIPTION A. Received in formalin labeled Joce Joy and designated gastric body for H. pylori and pathology, are two sánchez tissue fragments aggregating to 0.6 x 0.4 x 0.2 cm. Totally submitted in one cassette. JOCY 11/22/2024 CPT:20976,83288
--- NOTE | 2024-11-21 13:32 | HP.PCM_ITS ---
[facility] - General General Date of Admission: 11/21/24 Date of Service: 11/21/24 Chief Complaint: surveillance colonoscopy HPI Narrative JOCE JOY, is a 69 F who presents today for colonoscopy because of history of adenomatous polyps. OV 08/16/2024 w/ NAEL Jones 69y/o female presents for consultation with complaints of constipation and RLQ pain. CT A&P with contrast was completed 04/24/2024 revealed liver steatosis. She reports a long history of constipation currently failing Miralax and Linzess, and previously failed Lactulose. She reports going up to a week without a bowel movement. Denies any bleeding or weight loss. She is on several medications which can contribute to constipation (gabapentin, oxybutynin, olanzapine) and has a spinal cord stimulator. We have discussed the importance of a high fiber diet. She will discontinue Linzess and Miralax and start Amitiza BID. I have scheduled her for an ARM and colonoscopy. In terms of steatosis noted on prior CT, I have ordered labs and Elastography. Patient Instructions: Discontinue Linzess Discontinue Miralax [facility] Start Amitiza 24mcg twice daily Continue 5 prunes daily with good water intake (at least 64 ounces a day) Schedule [facility] Schedule Colonoscopy - You may be a candidate to enroll in colon cancer research study with [facility] Call to schedule Anorectal Manometry Dr. Pelaez [facility] Dr. Leandro Pelaez [address] [place] [address] P: [phone] F: [phone] --- LABS 08/16/2024 HGB 9.8, CMP unremarkable 04/24/2024 HGB 10.4 11/25/2023 HGB 10.9 12/02/2022 HGB 11.4 HAV Total Ab: 08/16/2024 negative HBVsA08/16/2024 negative HBVsAb: 08/16/2024 negative HBV Core Ab Total: 08/16/2024 negative HCV Ab: 08/16/2024 negative ELF: 08/16/2024 (HIGH) 9.97 - high probability of advanced fibrosis or cirrhosis FibroScan: was referred to Flexiroam - states it was scheduled for today and our office told her to cancel this ARM - reports she had this completed this month with Dr. Benigno VERMA 08/30/2024 - tubular adenoma ---REPEAT COLON IN 6 MONTHS DUE TO POOR PREP - Preparation of the colon was fair. - Diverticulosis in the recto-sigmoid colon and in the sigmoid colon. - One 12 mm polyp in the sigmoid colon, removed with a hot snare. Resected and retrieved. - Stool in the recto-sigmoid colon, in the sigmoid colon, in the descending colon, in the transverse colon, in the ascending colon and in the cecum. CONSTIPATION - reports constipation has been well managed - she is on Amitiza 24mcg BID - denies any pain or bleeding - she did okay with the bowel prep - denies any N/V - she is agreeable to repeating colon in 6 months ANEMIA - denies any epistaxis - denies any BRBPR - denies any melena - denies any HB - she is on pantoprazole 40mg daily <6months - this replaced prilosec which she had been on for awhile and was failing therapy - she does c/o belching - denies any N/V - dysphagia in the upper esophagus - known h/o Sjogren's - denies any weight loss - denies any blood donation - she is not a vegetarian - seldom consumption of red meat - denies any kidney disease MASLD - going to support group to help with weight loss [facility] Medical History Cardiology follow-up encounter History of Holter monitoring Pain FAITH (dyspnea on exertion) Chest pressure Wears glasses Wears dentures CPAP (continuous positive airway pressure) dependence Arthritis Osteoarthritis of left knee Left knee pain Stress incontinence Difficulty chewing History of IBS Former smoker Neuropathy Sjogrens syndrome Leg cramps History of edema History of echocardiogram History of stress test History of irregular heartbeat Chronic low back pain Sensory polyneuropathy Elevated hemoglobin A1c Rheumatoid arthritis TROY (obstructive sleep apnea) Urinary incontinence, urge Urinary urgency Urinary frequency PND (post-nasal drip) Bipolar 2 disorder Obesity (BMI 30-39.9) Mild intermittent asthma in adult without complication Mild mitral regurgitation Mild dilation of ascending aorta TROY (obstructive sleep apnea) Depression Right flank pain Spinal stenosis of lumbar region Hypertension Hyperlipidemia GERD (gastroesophageal reflux disease) Asthma OCD (obsessive compulsive disorder) Chest pain Thoracic aortic aneurysm without rupture Paroxysmal atrial tachycardia Nephrolithiasis Herpes simplex with unspecified complication Loss of appetite Anxiety Lightheadedness Long-term use of high-risk medication Obesity Sinusitis Eustachian tube dysfunction Otitis media Nightmares Rhinorrhea Segmental and somatic dysfunction of cervical region Segmental and somatic dysfunction of thoracic region Back sprain Epigastric abdominal pain Encounter for screening for malignant neoplasm of colon Home Medications ?Medication ?Instructions ?Recorded ?Last Taken ?Type olanzapine 10 mg tablet 10 mg PO QHS 10/08/20 Unknow n History potassium chloride 20 mEq 20 meq PO BID 10/08/20 Unkno wn History tablet,extended release acetaminophen 500 mg tablet 500 mg PO Q6H PRN pain #30 tabs 03/24/21 Unknown Rx oxybutynin chloride 10 mg 10 mg PO DAILY 07/31/21 Unkn own History tablet,extended release 24 hr duloxetine 30 mg capsule,delayed 30 mg PO BID 07/07/23 Unknown History release trazodone 150 mg tablet 150 mg PO QHS 09/28/23 Unkno wn History vibegron 75 mg tablet (Gemtesa) 75 mg PO DAILY 4 Unknown History aspirin 81 mg tablet,delayed 81 mg PO DAILY 11/24/23 0 11/07/24 History release (Adult Aspirin Regimen) cholecalciferol (vitamin D3) 1,250 1,250 mcg PO .QOTU 04/04/24 Unknown History mcg (50,000 unit) capsule lisinopril 20 mg tablet 10 mg PO BID 08/16/24 Unknow n History lubiprostone 24 mcg capsule 24 mcg PO BID constipation #180 08/16/24 08/30/24 06:30 Rx (Amitiza) caps ondansetron 4 mg disintegrating 4 mg PO Q8H PRN nausea and vomiting 08/16/24 Unknown History tablet pantoprazole 40 mg tablet,delayed 40 mg PO QDAY 08/30/24 06:30 History release metoprolol tartrate 25 mg tablet 25 mg PO BID #180 tab s 10/25/24 11/21/24 07:15 Rx amlodipine 5 mg tablet 5 mg PO DAILY #30 tabs 11/0211/21/24 07:15 Rx Allergy/AdvReac Type Severity Reaction Status Date / Time tramadol (From Ultram) Allergy Intermediate Itching Verified 11/21/24 12:55 oxycodone (From Percocet) Allergy Mild Itching Verified 11/21/24 12:55 cephalexin (From Keflex) Allergy Rash Verified 11/21/24 12:55 flurazepam (From Dalmane) Allergy Other Verified 11/21/24 12:55 shellfish derived Allergy RASH Verified 11/21/24 12:55 divalproex sodium (From AdvReac Intermediate Other - Verified 11/21/24 12:55 Depakote) nightmares quetiapine (From Seroquel) AdvReac Mild Other - Verified 11/21/24 12:55 shaking, lightheaded and abnormal dreams meloxicam AdvReac Unknown Verified 11/21/24 12:55 Family History Father Cancer Alcoholism Hypertension Mother Heart disease H/O weight disorder Myocardial infarction Hypertension COPD (chronic obstructive pulmonary disease) Skin cancer Sister Hypertension Surgical History Hx of cystoscopy History of cardiac catheterization Hx of surgical procedure bladder sling removal History of bilateral carpal tunnel release H/O eye surgery H/O hand surgery History of total right knee replacement History of appendectomy H/O: hysterectomy Hx laparoscopic cholecystectomy Social History household members: none Smoking Status: Former smoker quit date: 08/29/82 pack-years: 15 second hand exposure: No alcohol intake: never substance use type: does not use ROS Constitutional Constitutional: Denies fatigue, fever(s), poor appetite, weight gain or weight loss Gastrointestinal Gastrointestinal: Denies belching, bloating, change in bowel habits, change in stool character, chewing difficulty, coffee ground emesis, constipation, cramping, diarrhea, dyspepsia, dysphagia, early satiety, excessive flatus, fecal incontinence, heartburn, hematemesis, hematochezia, hemorrhoids, loose stools, melena, nausea, odynophagia, rectal bleeding, tenesmus, vomiting or weight changes Vital Signs Vital Signs Vital Signs: 11/21/24 13:02 11/21/24 13:02 Temperature 97.9 F Temperature Source Temporal Pulse Rate 78 Respiratory Rate 16 Respiratory Pattern Normal Blood Pressure 138/90 H Blood Pressure Mean 106 Blood Pressure Source Monitor Blood Pressure Position Semi-Fowlers Blood Pressure Location Right Arm Pulse Ox 99 Oxygen Delivery Method Room Air Weight Weight: 222 lb 10.67 oz Body Mass Index (BMI) 38.2 Physical Exam Const alert, oriented x3, no apparent distress and healthy appearing General Appearance: cooperative GI normal to inspection, nondistended, normoactive bowel sounds, soft to palpation, non-tender and non-distended Percussion: normal to percussion Rectal Exam: deferred Results Lab / Micro Data 11/21/24 12:27 Assessment & Plan Assessment/Plan (1) Anemia: (2) Encounter for screening for malignant neoplasm of colon: PLAN: Assessment and Plan Assessment and Plan (1) Constipation: Status: Acute (2) Heartburn: Status: Acute (3) Dyspepsia: Status: Acute (4) Anemia: Status: Acute (5) Steatosis, liver: Status: Acute Orders: Orders CBC W/Diff, Automated 09/20/24 D64.9 - Anemia, unspecified, K76.0 - Fatty (change of) liver, not elsewhere classified, R10.13 - Epigastric pain Plan 69y/o female presents for follow-up of constipation and RLQ pain. She was last seen 08/16/2024 and it was recommended she discontinue Linzess and Miralax. She was started on Amitiza 24mcg BID with recommendation to continue daily prunes and adequate water intake. Colonoscopy performed 08/30/2024 revealed a TA. Prep was poor and it is recommended she repeat the colonoscopy in 6 months (February 2025). Labs completed 08/16/2024 reveal a drop in HGB to 9.8, previously 10.4. In terms of steatosis noted on prior CT, I had ordered labs and FibroScan. Labs revealed she is not immune to Hepatitis A or B and I recommend she complete vaccine series. ELF score is elevated to 9.97 which suggests she has a high probability of advanced fibrosis or cirrhosis. It does not appear she had the FibroScan completed. Patient Instructions: -Colonoscopy with additional bowel prep - will do sooner than 6 months with EGD for w/u of anemia -Schedule FibroScan [facility] is located at: [address] [place] [address], [address] [place] [address] -Recommend vaccination for HAV and HBV - you can do this with your primary care physician ONE and a HALF DAY MIRALAX & SuFlave COLONOSCOPY PREP WHAT YOU NEED TO PURCHASE 1. Bisacodyl (Dulcolax laxative) 2 tablets (NOT suppositories) 2. Miralax (Glycolax) You will need one 7 dose bottle (4.1 ounces) 3. Gas-X tablets (Simethicone) 2 tablets. The milian flavor, pink tablets are approved to use during the prep. 4. 32 ounces of Gatorade, or any non-carbonated clear liquid. (Iced Tea, Crystal light) Select green, yellow or clear flavors ? no red or purple. FIVE DAYS PRIOR TO YOUR PROCEDURE Stop consuming all high fiber foods/roughage. NO raw vegetables. NO corn (cooked or raw). NO whole wheat of high fiber breads. NO nuts or popcorn. NO bran or bulking agents. TWO DAYS PRIOR TO PROCEDURE: NO ALCOHOL You may have a light breakfast and a light lunch At 8:00am: mix Miralax 7 dose bottle (4.1 ounces) with 32 ounces of Gatorade or 32 ounces of a non-carbonated liquid and put in the refrigerator to chill. At 12:00 noon: begin a clear liquid diet. Be sure and drink at least 8 ounces of an approved clear liquid every hour while awake. AVOID anything red or purple in color. NO milk products or non-dairy creamer. SEE ATTACHED LIST OF APPROVED CLEAR LIQUIDS At 12:30pm: Take two Dulcolax tablets. Do not crush or chew. Take one Gas-X tablet. At 6:00pm: Begin drinking the Miralax / Gatorade mixture you put in the fridge at 8:00am. Drink the solution at a rate of 8 ounces every 30-60 minutes until gone. Take one Gas-X tablet. Continue clear liquids until bed. ONE DAY PRIOR TO YOUR PROCEDURE: NO SOLID FOOD NO ALCOHOL Clear liquids ALL DAY AVOID anything red or purple in color. NO milk products or non-dairy creamer. SEE ATTACHED LIST OF APPROVED CLEAR LIQUIDS. Be sure and drink at least 8 ounces of an approved clear liquid every hour while awake. TAKING THE PREP: FIRST DOSE OF SuFlave ----FOLLOW SUFLAVE PREP INSTRUCTIONS OUTLINED IN HANDOUT PROVIDED BY OUR OFFICE Continue clear liquids until bed. If you have questions about this colon cleansing, please call our office for assistance at [phone]. APPROVED CLEAR LIQUIDS ? No RED or PURPLE -Gatorade or PowerAde -Clear broth or bouillon ? chicken or beef -Coffee or Tea (no milk or non-dairy creamer) -Carbonated and Non-carbonated beverages -Mickey-Aid or Crystal Light -Strained Fruit Juices -Jell-O, Popsicles or Croatian Ice
[2024-11-21 13:41] LABS: Absolute Lymphocyte Count 3.12 X10^3/uL (0.83-4.51); Absolute Neutrophil Count 4.4 X10^3/uL (2.0-7.7); Basophil# 0.03 X10^3/uL; Basophil% 0.4 % (0-1); Eosinophil# 0.05 X10^3/uL; Eosinophils% 0.6 % (0-5); Hematocrit 34.6 % (37-47); Hemoglobin 10.1 g/dL (12.0-15.0); Lymphocyte # 3.12 X10^3/ul (0.83-4.51); Lymphocyte % 37.2 % (19-41); Mean Corp Hgb Conc 29.2 g/dL (32-36); Mean Corpuscular Hgb 21.9 pg (27.0-32.0); Mean Corpuscular Volume 74.9 fL (81-99); Mean Platelet Vol. 8.5 fl (6.2-12.0); Monocyte# 0.74 X10^3/uL; Monocyte% 8.8 % (0-10); NRBC Flagged by Analyzer 0 % (0-5); Neutrophil # 4.43 X10^3/uL (2.7-7.7); Neutrophil % 52.8 % (47-70); POSITIVE MORPHOLOGY YES; Platelet Count 419 K/mm3 (150-450); RBC Distribution Width CV 20.5 % (11.6-14.6); RBC Distribution Width SD 54.2 fl (35.1-43.9); Red Blood Count 4.62 M/mm3 (4.2-5.4); White Blood Count 8.4 K/mm3 (4.4-11.0)
[2024-11-21 13:46] LABS: Differential Indicated SCAN CRITERIA MET
[2024-11-21 14:36] LABS: Anisocytosis 1+; Platelet Estimate A (ADEQ); Polychromasia 1+
[2024-11-21 14:40] LABS: Iron 26 ug/dL (50-170); Iron Binding Capacity,Total 403 ug/dL (250-450); Iron Binding Capacity,Unsat 377 ug/dL (228-428)
[2024-11-21 14:45] VITALS: BP 122/71; BP 138/90; PULSE 74; RESP 16; TEMP 36.5; O2SAT 98
[2024-11-21 14:50] VITALS: BP 124/75; BP 138/90; PULSE 73; RESP 16; O2SAT 97
--- NOTE | 2024-11-21 14:51 | OP.EGD_ITS ---
Patient Name: Winter Damon Procedure Date: 11/21/2024 2:08 PM Date of : 1955 Age: 69 Procedure: Upper GI endoscopy Indications: Epigastric abdominal pain, Suspected upper gastrointestinal bleeding in patient with unexplained iron deficiency anemia Providers: Tato Posey DO Referring MD: Bay Ramos Medicines: Monitored Anesthesia Care Patient Profile: This is a 69 year old female. Refer to note in patient chart for documentation of history and physical. Patient has symptoms of chronic epigastric abdominal pain, chronic dyspepsia and chronic nausea. Complications: No immediate complications. Procedure: Pre-Anesthesia Assessment: - Prior to the procedure, a History and Physical was performed, and patient medications and allergies were reviewed. The patient is competent. The risks and benefits of the procedure and the sedation options and risks were discussed with the patient. All questions were answered and informed consent was obtained. Patient identification and proposed procedure were verified by the physician in the pre-procedure area. Mental Status Examination: alert and oriented. Airway Examination: normal oropharyngeal airway and neck mobility. Respiratory Examination: clear to auscultation. CV Examination: normal. ASA Grade Assessment: II - A patient with mild systemic disease. After reviewing the risks and benefits, the patient was deemed in satisfactory condition to undergo the procedure. The anesthesia plan was to use monitored anesthesia care (MAC). Immediately prior to administration of medications, the patient was re-assessed for adequacy to receive sedatives. The heart rate, respiratory rate, oxygen saturations, blood pressure, adequacy of pulmonary ventilation, and response to care were monitored throughout the procedure. The physical status of the patient was re-assessed after the procedure. After obtaining informed consent, the endoscope was passed under direct vision. Throughout the procedure, the patient's blood pressure, pulse, and oxygen saturations were monitored continuously. The Colonoscope was introduced through the mouth, and advanced to the third part of the duodenum. Small bowel enteroscopy was deemed necessary. The upper GI endoscopy was accomplished without difficulty. The patient tolerated the procedure well. Scope In: 2:19:34 PM Scope Out: 2:22:22 PM Total Procedure Duration Time 0 hours 2 minutes 48 seconds Findings: The examined esophagus was normal. A small hiatal hernia was present. Patchy mildly erythematous mucosa without bleeding was found in the gastric body. Biopsies were taken with a cold forceps for histology. Verification of patient identification for the specimen was done. Estimated blood loss was minimal. Biopsies were taken with a cold forceps for Helicobacter pylori testing. Verification of patient identification for the specimen was done. Estimated blood loss was minimal. No gross lesions were noted in the third portion of the duodenum. Impression: - Normal esophagus. - Small hiatal hernia. - Erythematous mucosa in the gastric body. Biopsied. - No gross lesions in the third portion of the duodenum. Recommendation: - Discharge patient to home. - Resume previous diet. - Continue present medications. - Await pathology results. Procedure Code(s): --- Professional --- 76626, Small intestinal endoscopy, enteroscopy beyond second portion of duodenum, not including ileum; with biopsy, single or multiple CPT copyright 2021 [employer]. All rights reserved. The codes documented in this report are preliminary and upon label coder review may be revised to meet current compliance requirements. Tato Posey DO 11/21/2024 2:51:09 PM This report has been signed electronically. Number of Addenda: 0 Note Initiated On: 11/21/2024 2:08 PM
--- NOTE | 2024-11-21 14:51 | OP.CCLET_ITS ---
11/21/2024 Bay Ramos [address] [facility] [place] [address] Re : Upper GI endoscopy procedure for Winter Damon Dear Dr. Ramos This procedure was performed on Thursday, November 21, 2024. My impressions and recommendations are as follows: Impressions : - Normal esophagus. - Small hiatal hernia. - Erythematous mucosa in the gastric body. Biopsied. - No gross lesions in the third portion of the duodenum. Recommendations : - Discharge patient to home. - Resume previous diet. - Continue present medications. - Await pathology results. My findings are described in the full procedure note, which is enclosed. If I can be of further assistance, please feel free to contact me at . Sincerely, Tato Posey, 11/21/2024 2:51:09 PM This report has been signed electronically.
--- NOTE | 2024-11-21 14:52 | PCM.POST.ANE ---
Anesthesia: Postop Eval I Current Vital Signs Temperature: 97.7 F Pulse Rate: 70 Blood Pressure: 122/71 Respiratory Rate: 16 Pulse Ox: 97 Oxygen Delivery Method: Room Air Assessment Airway patent: Yes Spontaneous unlabored respirations: Yes Mental status: Asleep nausea: No Vomiting: No Anesthesia Complication: No Fluid Hydration Crystalloid volume administer (ml): 50 Total IV fluid infused: 50 Progress Note Anesthesia document: Postop Eval 1 completed: Yes
[2024-11-21 14:53] VITALS: BP 122/71; PULSE 70; RESP 16; TEMP 36.5; O2SAT 97
--- NOTE | 2024-11-21 14:54 | OP.CCLET_ITS ---
11/21/2024 Bay Ramos [address] [facility] [place] [address] Re : Colonoscopy procedure for Winter Damon Dear Dr. Ramos This procedure was performed on Thursday, November 21, 2024. My impressions and recommendations are as follows: Impressions : - Preparation of the colon was poor. - Diverticulosis in the recto-sigmoid colon and in the sigmoid colon. - Stool in the rectum, in the recto-sigmoid colon, in the sigmoid colon, in the descending colon, in the transverse colon, at the hepatic flexure, in the ascending colon, in the cecum and at the appendiceal orifice. - No specimens collected. Recommendations : - Discharge patient to home. - Resume previous diet. - Continue present medications. - Repeat colonoscopy. My findings are described in the full procedure note, which is enclosed. If I can be of further assistance, please feel free to contact me at . Sincerely, Tato Posey, 11/21/2024 2:54:03 PM This report has been signed electronically.
--- NOTE | 2024-11-21 14:54 | OP.COLON_ITS ---
Patient Name: Winter Damon Procedure Date: 11/21/2024 2:23 PM Date of : 1955 Age: 69 Procedure: Colonoscopy Indications: Iron deficiency anemia Providers: Tato Posey DO Referring MD: Bay Ramos Medicines: Monitored Anesthesia Care Patient Profile: This is a 69 year old female. Refer to note in patient chart for documentation of history and physical. Patient has symptoms of chronic epigastric abdominal pain, chronic dyspepsia and chronic nausea. Last Colonoscopy: 1 year ago. Complications: No immediate complications. Procedure: Pre-Anesthesia Assessment: - Prior to the procedure, a History and Physical was performed, and patient medications and allergies were reviewed. The patient is competent. The risks and benefits of the procedure and the sedation options and risks were discussed with the patient. All questions were answered and informed consent was obtained. Patient identification and proposed procedure were verified by the physician in the pre-procedure area. Mental Status Examination: alert and oriented. Airway Examination: normal oropharyngeal airway and neck mobility. Respiratory Examination: clear to auscultation. CV Examination: normal. ASA Grade Assessment: II - A patient with mild systemic disease. After reviewing the risks and benefits, the patient was deemed in satisfactory condition to undergo the procedure. The anesthesia plan was to use monitored anesthesia care (MAC). Immediately prior to administration of medications, the patient was re-assessed for adequacy to receive sedatives. The heart rate, respiratory rate, oxygen saturations, blood pressure, adequacy of pulmonary ventilation, and response to care were monitored throughout the procedure. The physical status of the patient was re-assessed after the procedure. After I obtained informed consent, the scope was passed under direct vision. Throughout the procedure, the patient's blood pressure, pulse, and oxygen saturations were monitored continuously. The Colonoscope was introduced through the anus and advanced to the cecum, identified by appendiceal orifice and ileocecal valve. The colonoscopy was performed without difficulty. The patient tolerated the procedure well. The quality of the bowel preparation was poor. The ileocecal valve, appendiceal orifice, and rectum were photographed. Scope In: 2:24:04 PM Scope Withdrawal Time 0 hours 5 minutes 35 seconds Scope Out: 2:40:30 PM Total Procedure Duration Time 0 hours 16 minutes 26 seconds Findings: The perianal and digital rectal examinations were normal. Multiple small-mouthed diverticula were found in the recto-sigmoid colon and sigmoid colon. Stool was found in the rectum, in the recto-sigmoid colon, in the sigmoid colon, in the descending colon, in the transverse colon, at the hepatic flexure, in the ascending colon, in the cecum and at the appendiceal orifice. Impression: - Preparation of the colon was poor. - Diverticulosis in the recto-sigmoid colon and in the sigmoid colon. - Stool in the rectum, in the recto-sigmoid colon, in the sigmoid colon, in the descending colon, in the transverse colon, at the hepatic flexure, in the ascending colon, in the cecum and at the appendiceal orifice. - No specimens collected. Recommendation: - Discharge patient to home. - Resume previous diet. - Continue present medications. - Repeat colonoscopy. Procedure Code(s): --- Professional --- 70851, Colonoscopy, flexible; diagnostic, including collection of specimen(s) by brushing or washing, when performed (separate procedure) CPT copyright 2021 [employer]. All rights reserved. The codes documented in this report are preliminary and upon supplier relationship director review may be revised to meet current compliance requirements. Tato Posey DO 11/21/2024 2:54:03 PM This report has been signed electronically. Number of Addenda: 0 Note Initiated On: 11/21/2024 2:23 PM
[2024-11-21 15:01] VITALS: BP 134/64; BP 138/90; PULSE 70; RESP 16; TEMP 36.2; O2SAT 100
[2024-11-21 15:11] VITALS: BP 138/90
--- NOTE | 2024-11-21 15:14 | PCM.POSTANE2 ---
Anesthesia Postop Eval I Sum Postop Eval Completion status Anesthesia document: Postop Eval 1 completed: Yes Anesthesia Postop Eval I Summary Anesthesia Postop Eval I Summary: Anesthesia Postop Eval I: Assessment Summary Airway patent Yes 11/21/24 14:53 [email or web address] Spontaneous unlabored Yes 11/21/24 14:53 [email or web address] respirations Mental status Asleep 11/21/24 14:53 [email or web address] nausea No 11/21/24 14:53 [email or web address] Vomiting No 11/21/24 14:53 [email or web address] Anesthesia Postop Eval I: Fluid Summary Crystalloid volume administer 50 11/21/24 14:53 [email or web address] (ml) Colloids volume administered ( ml) Blood Product volume administered (ml) Total IV fluid infused 50 11/21/24 14:53 [email or web address] Anesthesia Postop Eval I: Summary Notes Anesthesia Complication No 11/21/24 14:53 [email or web address] Anesthesia Complication Comment: Post-operative progress note Anesthesia: Postop Eval II Evaluation Mental status: Awake Pain Level: 0 nausea: No Vomiting: No
== END 2024-11-21 15:25 | disposition home or self-care (01) ==
LOC: EN 12:22 → AC 12:24
PROVIDERS: Nurse Practitioner Acute Care; PCP Family Medicine; Referring Provider Family Medicine; Visit Provider Internal Medicine Gastroenterology
PROC: 0DJD8ZZ Inspection of Lower Intestinal Tract, Via Natural or Artificial Opening Endoscopic (ICD-10-PCS; CPT 45378; principal; 2024-11-21 13:25)
DX: Z12.11 Encounter for screening for malignant neoplasm of colon (principal); F31.81 Bipolar II disorder; K44.9 Diaphragmatic hernia without obstruction or gangrene; K76.0 Fatty (change of) liver, not elsewhere classified; K57.30 Diverticulosis of large intestine without perforation or abscess without bleeding; K21.9 Gastro-esophageal reflux disease without esophagitis; E78.5 Hyperlipidemia, unspecified; D50.9 Iron deficiency anemia, unspecified; I10 Essential (primary) hypertension; G47.33 Obstructive sleep apnea (adult) (pediatric); K31.89 Other diseases of stomach and duodenum; Z79.899 Other long term (current) drug therapy; Z79.82 Long term (current) use of aspirin; Z87.891 Personal history of nicotine dependence
CPT/HCPCS: 43239; 45378; 36415; 83540; 83550; 85025; 88305; 88342; A4216; J2405

== ENCOUNTER → 2025-01-03 | Outpatient (CLI) | payer MEDICAID, SELFPAY ==
[2025-01-03 12:02] LABS: Absolute Lymphocyte Count 3.12 X10^3/uL (0.83-4.51); Basophil# 0.02 X10^3/uL; Basophil% 0.2 % (0-1); Eosinophils% 1.1 % (0-5); Hematocrit 30.5 % (37-47); Hemoglobin 9.1 g/dL (12.0-15.0); Lymphocyte # 3.12 X10^3/ul (0.83-4.51); Lymphocyte % 33.9 % (19-41); Mean Corp Hgb Conc 29.8 g/dL (32-36); Mean Corpuscular Hgb 22.5 pg (27.0-32.0); Mean Corpuscular Volume 75.3 fL (81-99); Mean Platelet Vol. 7.7 fl (6.2-12.0); Monocyte# 0.85 X10^3/uL; Monocyte% 9.2 % (0-10); NRBC Flagged by Analyzer 0 % (0-5); Neutrophil # 5.04 X10^3/uL (2.7-7.7); Neutrophil % 54.9 % (47-70); POSITIVE MORPHOLOGY YES; Platelet Count 410 K/mm3 (150-450); RBC Distribution Width CV 22.5 % (11.6-14.6); RBC Distribution Width SD 61.8 fl (35.1-43.9); Red Blood Count 4.05 M/mm3 (4.2-5.4); White Blood Count 9.2 K/mm3 (4.4-11.0)
[2025-01-03 12:05] LABS: Differential Indicated SCAN CRITERIA MET
[2025-01-03 12:37] LABS: Anisocytosis 1+
== END | disposition home or self-care (01) ==
LOC: LAB 11:37
PROVIDERS: PCP Family Medicine; Referring Provider Nurse Practitioner Acute Care; Visit Provider Nurse Practitioner Acute Care
DX: D64.9 Anemia, unspecified (principal)
CPT/HCPCS: 36415; 85025

== ENCOUNTER 2025-01-23 11:01 | Outpatient (RCR) | payer MEDICAID, SELFPAY | END 2025-01-26 23:59 | LOC: NS 11:01 | PROVIDERS: PCP Family Medicine; Referring Provider Family Medicine; Visit Provider Family Medicine | DX: Z71.3 Dietary counseling and surveillance (principal); E66.01 Morbid (severe) obesity due to excess calories; Z68.39 Body mass index [BMI] 39.0-39.9, adult | CPT/HCPCS: 97803 ==

== ENCOUNTER 2025-03-07 07:37 | Day surgery (SDC) | payer MEDICAID, SELFPAY ==
--- NOTE | 2025-03-06 15:39 | PAT.ANESEVAL ---
Pre-Assessment Diagnosis/Proposed Procedure Planned Operative Procedure(s): COLONOSCOPY Anesthesia History Anesthesia History - it applications analyst: Anesthesia History - it applications analyst Hx Hospitalization No 03/06/25 12:04 Any Problems With Anesthesia No 03/06/25 12:04 Cholinesterase deficiency No 03/06/25 12:04 You/Your Family Experience No 03/06/25 12:04 fever (hyperthermia) with Relationship Recent Exposure to Contagious No 11/21/24 13:02 Disease Does patient have nerve No 03/06/25 12:04 stimulator Patient instructed to have device shut off --Does patient have Pacemaker or ICD? When Was Last Pacemaker Check QUESTION #4 FULL TEXT: You/Your Family Experience fever (hyperthermia) with Anesthesia Last Oral Intake Last Oral intake: Last Oral Intake NPO since Meds taken in AM with sips of water? Meds patient instructed to take am of surgery PONV PONV - it applications analyst: PONV - it applications analyst Female Yes 03/06/25 12:04 HX of Motion Sickness Yes 03/06/25 12:04 HX of N/V After Surgery No 03/06/25 12:04 Non-Smoker Yes 03/06/25 12:04 Duration of Surgery greater No 03/06/25 12:04 than 60 minutes Number of Risk Factors 3 03/06/25 12:04 PONV Score Moderate Risk 03/06/25 12:04 Height & Weight Height & Weight: Anesthesia: Height & Weight Height 5 ft 4 in 02/22/25 09:28 Respiratory Assessment Respiratory Assessment - it applications analyst: Respiratory Tract Infection Hx - it applications analyst Hx Respiratory Tract Infection No 03/06/25 12:04 STOP Sleep Apnea STOP Sleep Apnea - it applications analyst: STOP Sleep Apnea - it applications analyst Hx Hypertension Yes: CONTROLLED WITH MED 03/06/25 12:04 Hx Sleep Apnea Yes 03/06/25 12:04 CPAP Yes: NON COMPLIANT 03/06/25 12:04 BIPAP No 03/06/25 12:04 Do you snore loudly (louder than talking or can be heard Do you often feel tired/ fatigued/ sleepy during daytime? Has anyone observed you stop breathing during sleep? STOP Results Positive 03/06/25 12:04 QUESTION #5 FULL TEXT : Do you snore loudly (louder than talking or can be heard through closed doors)? 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 Specify any problems Hx of Preganancy in last 3 No 03/06/25 12:04 Months Nurse Filling Out Transfusion VCHRISTIN 03/06/25 12:04 & Questions: Date: 03/06/25 03/06/25 12:04 Time: 12:06 03/06/25 12:04 Patient unable to answer at this time (ie. confused, unrespo /Reproduction History /Reproductive History - it applications analyst: /Reproductive Hx- it applications analyst Hx Now No 03/06/25 12:04 Gestational Age (in weeks): EDC: Hx Hx Para Hx Section SAB No 03/06/25 12:04 PFSH Medical History (Updated 03/06/25 @ 12:04 by Maliha Ware) Normal Holter exam PTSD (post-traumatic stress disorder) Cardiology follow-up encounter History of Holter monitoring Pain FAITH (dyspnea on exertion) Chest pressure Wears glasses Wears dentures CPAP (continuous positive airway pressure) dependence Arthritis Osteoarthritis of left knee Left knee pain Stress incontinence Difficulty chewing History of IBS Former smoker Neuropathy Sjogrens syndrome Leg cramps History of edema History of echocardiogram History of stress test History of irregular heartbeat Chronic low back pain Sensory polyneuropathy Elevated hemoglobin A1c Rheumatoid arthritis TROY (obstructive sleep apnea) Urinary incontinence, urge Urinary urgency Urinary frequency PND (post-nasal drip) Bipolar 2 disorder Obesity (BMI 30-39.9) Mild intermittent asthma in adult without complication Mild mitral regurgitation Mild dilation of ascending aorta TROY (obstructive sleep apnea) Depression Right flank pain Spinal stenosis of lumbar region Hypertension Hyperlipidemia GERD (gastroesophageal reflux disease) Asthma OCD (obsessive compulsive disorder) Chest pain Thoracic aortic aneurysm without rupture Paroxysmal atrial tachycardia Nephrolithiasis Herpes simplex with unspecified complication Loss of appetite Anxiety Lightheadedness Long-term use of high-risk medication Obesity Sinusitis Eustachian tube dysfunction Otitis media Nightmares Rhinorrhea Segmental and somatic dysfunction of cervical region Segmental and somatic dysfunction of thoracic region Back sprain Epigastric abdominal pain Encounter for screening for malignant neoplasm of colon Home Medications ?Medication ?Instructions ?Recorded ?Last Taken ?Type potassium chloride 20 mEq 20 meq PO BID 10/08/20 Unknown History tablet,extended release oxybutynin chloride 10 mg 10 mg PO DAILY 07/31/21 Unknown History tablet,extended release 24 hr duloxetine 30 mg capsule,delayed 30 mg PO BID 07/07/23 Unknown History release trazodone 150 mg tablet 150 mg PO QHS 09/28/23 Unknown History vibegron 75 mg tablet (Gemtesa) 75 mg PO DAILY 11/16/23 Unknown History ondansetron 4 mg disintegrating 4 mg PO Q8H PRN nausea and vomiting 08/16/24 Unknown History tablet pantoprazole 40 mg tablet,delayed 40 mg PO QDAY 08/16/24 08/30/24 06:30 History release metoprolol tartrate 25 mg tablet 25 mg PO BID #180 tabs 10/25/24 11/21/24 07:15 Rx amlodipine 5 mg tablet 5 mg PO DAILY #30 tabs 11/02/24 11/21/24 07:15 Rx lubiprostone 24 mcg capsule 24 mcg PO BID constipation #180 01/11/25 Unknown Rx (Amitiza) caps ascorbic acid (vitamin C) 500 mg 500 mg PO QDAY 01/23/25 Unknown History tablet Held on 03/06/25. Instructions: PT STOPPED WHEN TAKING IRON guaifenesin 1,200 mg tablet, 1,200 mg PO BID 01/23/25 Unknown History extended release 12 hr lisinopril 20 mg tablet 20 mg PO BID 01/23/25 Unknown History tizanidine 4 mg tablet 4 mg PO BID PRN muscle spasticity 01/23/25 Unknown History polyethylene glycol 3350 17 4 g PO ONCE #238 grams 01/28/25 Unknown Rx gram/dose oral powder (Miralax) Allergy/AdvReac Type Severity Reaction Status Date / Time tramadol (From [facility]) Allergy Intermediate Itching Verified 03/06/25 11:49 oxycodone (From Percocet) Allergy Mild Itching Verified 03/06/25 11:49 cephalexin (From Keflex) Allergy Rash Verified 03/06/25 11:49 flurazepam (From Dalmane) Allergy Other Verified 03/06/25 11:49 shellfish derived Allergy RASH Verified 03/06/25 11:49 divalproex sodium (From AdvReac Intermediate Other - Verified 03/06/25 11:49 Depakote) nightmares quetiapine (From Seroquel) AdvReac Mild Other - Verified 03/06/25 11:49 shaking, lightheaded and abnormal dreams meloxicam AdvReac Unknown Verified 03/06/25 11:49 Family History Father Cancer Alcoholism Hypertension Mother Heart disease H/O weight disorder Myocardial infarction Hypertension COPD (chronic obstructive pulmonary disease) Skin cancer Sister Hypertension Surgical History (Updated 03/06/25 @ 12:04 by Maliha Ware) Hx of colonoscopy Hx of cystoscopy History of cardiac catheterization Hx of surgical procedure bladder sling removal History of bilateral carpal tunnel release H/O eye surgery H/O hand surgery History of total right knee replacement History of appendectomy H/O: hysterectomy Hx laparoscopic cholecystectomy Social History household members: none Smoking Status: Former smoker quit date: 08/29/82 pack-years: 15 second hand exposure: No alcohol intake: never substance use type: does not use Audit: Pertinent Findings Pertinent Findings EKG Perinent findings: EKG 09/29/2024. Normal sinus rhythm Stress test pertinent findings: 11/10/2023. No ischemic changes. LVEF 76% Echo (EF%) pertinent findings: 08/18/2023 EF 65%. Stage I diastolic dysfunction Heart catheterization pertinent findings: Heart cath 11/29/2023. No significant CAD. normal LV systolic function Additional pertinent findings: Holter monitor 05/01/2024. 48-hour Holter monitor in normal sinus rhythm with rare PVCs and occasional PACs Recommendation Anesthesia Recommendation Anesthesia recommendation: OPTIMIZED for anesthesia
[2025-03-07] VITALS (8 sets, daily range): BP systolic 124–138; BP diastolic 64–81; PULSE 67–74; RESP 16; TEMP 36.2–36.6; O2SAT 98–100; BMI 40.2
[2025-03-07] MEDS: Lactated Ringers 1,000 ML 15 ML IV (08:18)
--- NOTE | 2025-03-07 08:28 | PCM.PRE.AN2 ---
ASA Classification* ASA Classification ASA Classification: 3 Assessment & Plan Anesthesia* Anesthesia Assessment Anesthesia Assessment: Discussed sedation and/or anesthesia options, risks, benefits, and alternatives with patient/parents/legal guardian/POA. Questions invited. The patient/parents/legal guardian/POA seems to understand and agrees to proceed with anesthesia plan. Reviewed the physical assessment, medical history, allergy history and patient home medications list prior to surgery/procedure/anesthetic and documented any changes. Performed airway and anesthesia risk assessments. Anesthesia Type Anesthesia Type: MAC History Source History Obtained from:: Patient and Chart Anesthesia Focused Assessment* Temperature: 98 F Pulse Rate: 72 Blood Pressure: 138/73 Respiratory Rate: 16 Pulse Ox: 98 Oxygen Delivery Method: Room Air Airway Assessment Mouth opens: >3 cm Mallampati Score: II Teeth Condition: Dentures (Patient has upper dentures. They are out. Edentulous on the bottom.) Neck Range of motion (ROM): Limited ROM (Somewhat Decreased) Labs Anesthesia Preop lab: CBC WBC 8.6 K/mm3 (4.4-11.0) 01/23/25 10:57 01/23/25 RBC 4.19 M/mm3 (4.2-5.4) L 01/23/25 10:57 01/23/25 Hgb 9.4 g/dL (12.0-15.0) L 01/23/25 10:57 01/23/25 Hct 32.5 % (37-47) L 01/23/25 10:57 01/23/25 Plt Count 390 K/mm3 (150-450) 01/23/25 10:57 01/23/25 CHEMISTRY Potassium 4.6 mmol/L (3.3-5.1) 01/23/25 10:57 01/23/25 Sodium 131 mmol/L (133-145) L 01/23/25 10:57 01/23/25 Magnesium 2.0 mg/dL (1.5-2.2) 01/23/25 10:57 01/23/25 Phosphorus 4.0 mg/dL (2.7-4.5) 01/23/25 10:57 01/23/25 BUN 28 mg/dL (4-19) H 01/23/25 10:57 01/23/25 Creatinine 0.91 mg/dL (0.70-1.20) 01/23/25 10:57 01/23/25 Glucose 82 mg/dL (70-99) 01/23/25 10:57 01/23/25 TSH 1.800 uIU/mL (0.300-4.200) 10/25/24 14:29 10/25/24 COAG PT 12.9 SECONDS (11.7-14.9) 11/14/15 11:30 11/14/15 Pre-Assessment Diagnosis/Proposed Procedure Planned Operative Procedure(s): COLONOSCOPY Anesthesia History Anesthesia History - bleacher pulp: Anesthesia History - bleacher pulp Hx Hospitalization No 03/06/25 12:04 Any Problems With Anesthesia No 03/06/25 12:04 Cholinesterase deficiency No 03/06/25 12:04 You/Your Family Experience No 03/06/25 12:04 fever (hyperthermia) with Relationship Recent Exposure to Contagious No 03/07/25 08:10 Disease Does patient have nerve No 03/06/25 12:04 stimulator Patient instructed to have device shut off --Does patient have Pacemaker No 03/07/25 08:10 or ICD? When Was Last Pacemaker Check QUESTION #4 FULL TEXT: You/Your Family Experience fever (hyperthermia) with Anesthesia Last Oral Intake Last Oral intake: Last Oral Intake NPO since 06:30 03/07/25 08:10 Meds taken in AM with sips of Yes 03/07/25 08:10 water? Meds patient instructed to AMLODIPINE 03/07/25 08:10 take am of surgery METOPROLOL Any additional information?: Yes NPO since: 07:00 (Patient finished prep just before 7 AM.) Meds taken in AM with sips of water?: Yes PONV PONV - bleacher pulp: PONV - bleacher pulp Female Yes 03/06/25 12:04 HX of Motion Sickness Yes 03/06/25 12:04 HX of N/V After Surgery No 03/06/25 12:04 Non-Smoker Yes 03/06/25 12:04 Duration of Surgery greater No 03/06/25 12:04 than 60 minutes Number of Risk Factors 3 03/06/25 12:04 PONV Score Moderate Risk 03/06/25 12:04 Height & Weight Height & Weight: Anesthesia: Height & Weight Height 5 ft 3 in 03/07/25 08:10 Weight: 103 kg 03/07/25 08:10 Body Mass Index (BMI) 40.2 03/07/25 08:10 Respiratory Assessment Respiratory Assessment - bleacher pulp: Respiratory Tract Infection Hx - bleacher pulp Hx Respiratory Tract Infection No 03/06/25 12:04 STOP Sleep Apnea STOP Sleep Apnea - bleacher pulp: STOP Sleep Apnea - bleacher pulp Hx Hypertension Yes: CONTROLLED WITH MED 03/06/25 12:04 Hx Sleep Apnea Yes 03/06/25 12:04 CPAP Yes: NON COMPLIANT 03/06/25 12:04 BIPAP No 03/06/25 12:04 Do you snore loudly (louder than talking or can be heard Do you often feel tired/ fatigued/ sleepy during daytime? Has anyone observed you stop breathing during sleep? STOP Results Positive 03/06/25 12:04 QUESTION #5 FULL TEXT : Do you snore loudly (louder than talking or can be heard through closed doors)? 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 Specify any problems Hx of Preganancy in last 3 No 03/06/25 12:04 Months Nurse Filling Out Transfusion VCHRISTIN 03/06/25 12:04 & Questions: Date: 03/06/25 03/06/25 12:04 Time: 12:06 03/06/25 12:04 Patient unable to answer at this time (ie. confused, unrespo /Reproduction History /Reproductive History - bleacher pulp: /Reproductive Hx- bleacher pulp Hx Now No 03/06/25 12:04 Gestational Age (in weeks): EDC: Hx Hx Para Hx Section SAB No 03/06/25 12:04 Active Medications Active Medications: Current Medications Generic Name Dose Route Start Last Admin Trade Name Dary PRN Reason Stop Dose Admin Lactated Ringer's 1,000 mls @ 15 mls/hr 03/07/25 08:00 03/07/25 08:18 IV 15 mls/hr .Q48H DMITRY Administration PFSH Medical History Normal Holter exam PTSD (post-traumatic stress disorder) Cardiology follow-up encounter History of Holter monitoring Pain FAITH (dyspnea on exertion) Chest pressure Wears glasses Wears dentures CPAP (continuous positive airway pressure) dependence Arthritis Osteoarthritis of left knee Left knee pain Stress incontinence Difficulty chewing History of IBS Former smoker Neuropathy Sjogrens syndrome Leg cramps History of edema History of echocardiogram History of stress test History of irregular heartbeat Chronic low back pain Sensory polyneuropathy Elevated hemoglobin A1c Rheumatoid arthritis TROY (obstructive sleep apnea) Urinary incontinence, urge Urinary urgency Urinary frequency PND (post-nasal drip) Bipolar 2 disorder Obesity (BMI 30-39.9) Mild intermittent asthma in adult without complication Mild mitral regurgitation Mild dilation of ascending aorta TROY (obstructive sleep apnea) Depression Right flank pain Spinal stenosis of lumbar region Hypertension Hyperlipidemia GERD (gastroesophageal reflux disease) Asthma OCD (obsessive compulsive disorder) Chest pain Thoracic aortic aneurysm without rupture Paroxysmal atrial tachycardia Nephrolithiasis Herpes simplex with unspecified complication Loss of appetite Anxiety Lightheadedness Long-term use of high-risk medication Obesity Sinusitis Eustachian tube dysfunction Otitis media Nightmares Rhinorrhea Segmental and somatic dysfunction of cervical region Segmental and somatic dysfunction of thoracic region Back sprain Epigastric abdominal pain Encounter for screening for malignant neoplasm of colon Home Medications ?Medication ?Instructions ?Recorded ?Last Taken ?Type potassium chloride 20 mEq 20 meq PO BID 10/08/20 03/06/25 History tablet,extended release oxybutynin chloride 10 mg 10 mg PO DAILY 07/31/21 03/06/25 History tablet,extended release 24 hr duloxetine 30 mg capsule,delayed 30 mg PO BID 07/07/23 03/06/25 History release trazodone 150 mg tablet 150 mg PO QHS 09/28/23 03/06/25 History vibegron 75 mg tablet (Gemtesa) 75 mg PO DAILY 11/16/23 03/06/25 History ondansetron 4 mg disintegrating 4 mg PO Q8H PRN nausea and vomiting 08/16/24 Unknown History tablet pantoprazole 40 mg tablet,delayed 40 mg PO QDAY 08/16/24 03/06/25 History release metoprolol tartrate 25 mg tablet 25 mg PO BID #180 tabs 10/25/24 03/07/25 Rx amlodipine 5 mg tablet 5 mg PO DAILY #30 tabs 11/02/24 03/07/25 Rx lubiprostone 24 mcg capsule 24 mcg PO BID constipation #180 01/11/25 Unknown Rx (Amitiza) caps ascorbic acid (vitamin C) 500 mg 500 mg PO QDAY 01/23/25 Unknown History tablet Held on 03/06/25. Instructions: PT STOPPED WHEN TAKING IRON guaifenesin 1,200 mg tablet, 1,200 mg PO BID 01/23/25 03/06/25 History extended release 12 hr lisinopril 20 mg tablet 20 mg PO BID 01/23/25 03/07/25 History tizanidine 4 mg tablet 4 mg PO BID PRN muscle spasticity 01/23/25 Unknown History polyethylene glycol 3350 17 4 g PO ONCE #238 grams 01/28/25 Unknown Rx gram/dose oral powder (Miralax) Allergy/AdvReac Type Severity Reaction Status Date / Time tramadol (From Ultram) Allergy Intermediate Itching Verified 03/07/25 08:07 oxycodone (From Percocet) Allergy Mild Itching Verified 03/07/25 08:07 cephalexin (From Keflex) Allergy Rash Verified 03/07/25 08:07 flurazepam (From Dalmane) Allergy Other Verified 03/07/25 08:07 shellfish derived Allergy RASH Verified 03/07/25 08:07 divalproex sodium (From AdvReac Intermediate Other - Verified 03/07/25 08:07 Depakote) nightmares quetiapine (From Seroquel) AdvReac Mild Other - Verified 03/07/25 08:07 shaking, lightheaded and abnormal dreams meloxicam AdvReac Unknown Verified 03/07/25 08:07 Family History Father Cancer Alcoholism Hypertension Mother Heart disease H/O weight disorder Myocardial infarction Hypertension COPD (chronic obstructive pulmonary disease) Skin cancer Sister Hypertension Surgical History Hx of colonoscopy Hx of cystoscopy History of cardiac catheterization Hx of surgical procedure bladder sling removal History of bilateral carpal tunnel release H/O eye surgery H/O hand surgery History of total right knee replacement History of appendectomy H/O: hysterectomy Hx laparoscopic cholecystectomy Social History household members: none Smoking Status: Former smoker quit date: 08/29/82 pack-years: 15 second hand exposure: No alcohol intake: never substance use type: does not use Review of Systems (Anesthesia) ROS Narrative System reviewed and no additional complaints, except as documented. Physical Exam Resp clear to auscultation bilaterally
--- NOTE | 2025-03-07 09:05 | PCM.HP.STD ---
HPI - General General Date of Admission: 03/07/25 Date of Service: 03/07/25 Chief Complaint: Repeat colonoscopy because of a poor prep HPI Narrative JOCE JOY, is a 70 F who presents with the Chief Complaint: follow-up OV 09/27/2024 69y/o female presents for follow-up of constipation and RLQ pain. She was last seen 08/16/2024 and it was recommended she discontinue Linzess and Miralax. She was started on Amitiza 24mcg BID with recommendation to continue daily prunes and adequate water intake. Colonoscopy performed 08/30/2024 revealed a TA. Prep was poor and it is recommended she repeat the colonoscopy in 6 months (February 2025). Labs completed 08/16/2024 reveal a drop in HGB to 9.8, previously 10.4. In terms of steatosis noted on prior CT, I had ordered labs and FibroScan. Labs revealed she is not immune to Hepatitis A or B and I recommend she complete vaccine series. ELF score is elevated to 9.97 which suggests she has a high probability of advanced fibrosis or cirrhosis. It does not appear she had the FibroScan completed. COLON: 11/21/2024 (this was with 1/2d Miralax and 1d SuFlave) - Preparation of the colon was poor. - Diverticulosis in the recto-sigmoid colon and in the sigmoid colon. - Stool in the rectum, in the recto-sigmoid colon, in the sigmoid colon, in the descending colon, in the transverse colon, at the hepatic flexure, in the ascending colon, in the cecum and at the appendiceal orifice. - No specimens collected. EGD 11/21/2024 - negative for H. pylori - Normal esophagus. - Small hiatal hernia. - Erythematous mucosa in the gastric body. Biopsied. - No gross lesions in the third portion of the duodenum. WORKLOAD MESSAGE On 12/03/24 @ 14:46 Clau Mcclain Wrote To Erin Reed Labs completed 11/21/2024 revealed improvement in HGB to 10.1. Microcytic anemia Fe 26, 6% saturation. EGD and colonoscopy were negative for cause of bleeding. She should follow-up in the office so we can discuss further evaluation of anemia. She should be on pantoprazole 40mg daily and Fe once daily. She should be taking PPI and Fe at least 1 hour apart, as the PPI may hinder the absorption of Fe. I am concerned with adding Carafate with her other multitude of medications and chance of inhibiting absorption of other medications. I can discuss with her in the office further. Please arrange OV. Thanks WEIGHT: 230lbs today 09/28/2024 222lbs - she reports starting the Hepatitis A/B injections with PCP - she reports she was able to drink all of the bowel prep - weight is up 8lbs - she remains on Amitiza BID - she does feel this is helping with constipation - she is no longer eating prunes - she is now having a BM - she reports she is having a BM at least twice a day, formed - occasional episodes of diarrhea - she continues to take Hydrocodone 1-2 a day [facility] Medical History Normal Holter exam PTSD (post-traumatic stress disorder) Cardiology follow-up encounter History of Holter monitoring Pain FAITH (dyspnea on exertion) Chest pressure Wears glasses Wears dentures CPAP (continuous positive airway pressure) dependence Arthritis Osteoarthritis of left knee Left knee pain Stress incontinence Difficulty chewing History of IBS Former smoker Neuropathy Sjogrens syndrome Leg cramps History of edema History of echocardiogram History of stress test History of irregular heartbeat Chronic low back pain Sensory polyneuropathy Elevated hemoglobin A1c Rheumatoid arthritis TROY (obstructive sleep apnea) Urinary incontinence, urge Urinary urgency Urinary frequency PND (post-nasal drip) Bipolar 2 disorder Obesity (BMI 30-39.9) Mild intermittent asthma in adult without complication Mild mitral regurgitation Mild dilation of ascending aorta TROY (obstructive sleep apnea) Depression Right flank pain Spinal stenosis of lumbar region Hypertension Hyperlipidemia GERD (gastroesophageal reflux disease) Asthma OCD (obsessive compulsive disorder) Chest pain Thoracic aortic aneurysm without rupture Paroxysmal atrial tachycardia Nephrolithiasis Herpes simplex with unspecified complication Loss of appetite Anxiety Lightheadedness Long-term use of high-risk medication Obesity Sinusitis Eustachian tube dysfunction Otitis media Nightmares Rhinorrhea Segmental and somatic dysfunction of cervical region Segmental and somatic dysfunction of thoracic region Back sprain Epigastric abdominal pain Encounter for screening for malignant neoplasm of colon Home Medications ?Medication ?Instructions ?Recorded ?Last Taken ?Type potassium chloride 20 mEq 20 meq PO BID 10/08/20 03/06/25 History tablet,extended release oxybutynin chloride 10 mg 10 mg PO DAILY 07/31/21 03/06/25 History tablet,extended release 24 hr duloxetine 30 mg capsule,delayed 30 mg PO BID 07/07/23 03/06/25 History release trazodone 150 mg tablet 150 mg PO QHS 09/28/23 03/06/25 History vibegron 75 mg tablet (Gemtesa) 75 mg PO DAILY 11/16/23 03/06/25 History ondansetron 4 mg disintegrating 4 mg PO Q8H PRN nausea and vomiting 08/16/24 Unknown History tablet pantoprazole 40 mg tablet,delayed 40 mg PO QDAY 08/16/24 03/06/25 History release metoprolol tartrate 25 mg tablet 25 mg PO BID #180 tabs 10/25/24 03/07/25 Rx amlodipine 5 mg tablet 5 mg PO DAILY #30 tabs 11/02/24 03/07/25 Rx lubiprostone 24 mcg capsule 24 mcg PO BID constipation #180 01/11/25 Unknown Rx (Amitiza) caps ascorbic acid (vitamin C) 500 mg 500 mg PO QDAY 01/23/25 Unknown History tablet Held on 03/06/25. Instructions: PT STOPPED WHEN TAKING IRON guaifenesin 1,200 mg tablet, 1,200 mg PO BID 01/23/25 03/06/25 History extended release 12 hr lisinopril 20 mg tablet 20 mg PO BID 01/23/25 03/07/25 History tizanidine 4 mg tablet 4 mg PO BID PRN muscle spasticity 01/23/25 Unknown History polyethylene glycol 3350 17 4 g PO ONCE #238 grams 01/28/25 Unknown Rx gram/dose oral powder (Miralax) Allergy/AdvReac Type Severity Reaction Status Date / Time tramadol (From Ultram) Allergy Intermediate Itching Verified 03/07/25 08:07 oxycodone (From Percocet) Allergy Mild Itching Verified 03/07/25 08:07 cephalexin (From Keflex) Allergy Rash Verified 03/07/25 08:07 flurazepam (From Dalmane) Allergy Other Verified 03/07/25 08:07 shellfish derived Allergy RASH Verified 03/07/25 08:07 divalproex sodium (From AdvReac Intermediate Other - Verified 03/07/25 08:07 Depakote) nightmares quetiapine (From Seroquel) AdvReac Mild Other - Verified 03/07/25 08:07 shaking, lightheaded and abnormal dreams meloxicam AdvReac Unknown Verified 03/07/25 08:07 Family History Father Cancer Alcoholism Hypertension Mother Heart disease H/O weight disorder Myocardial infarction Hypertension COPD (chronic obstructive pulmonary disease) Skin cancer Sister Hypertension Surgical History Hx of colonoscopy Hx of cystoscopy History of cardiac catheterization Hx of surgical procedure bladder sling removal History of bilateral carpal tunnel release H/O eye surgery H/O hand surgery History of total right knee replacement History of appendectomy H/O: hysterectomy Hx laparoscopic cholecystectomy Social History household members: none Smoking Status: Former smoker quit date: 08/29/82 pack-years: 15 second hand exposure: No alcohol intake: never substance use type: does not use ROS Constitutional Constitutional: Denies fatigue, fever(s), poor appetite, weight gain or weight loss Gastrointestinal Gastrointestinal: Denies belching, bloating, change in bowel habits, change in stool character, chewing difficulty, coffee ground emesis, constipation, cramping, diarrhea, dyspepsia, dysphagia, early satiety, excessive flatus, fecal incontinence, heartburn, hematemesis, hematochezia, hemorrhoids, loose stools, melena, nausea, odynophagia, rectal bleeding, tenesmus, vomiting or weight changes Vital Signs Vital Signs Vital Signs: 03/07/25 08:10 03/07/25 08:10 03/07/25 08:37 Temperature 98 F 98 F Temperature Source Temporal Pulse Rate 72 72 Respiratory Rate 16 16 Respiratory Pattern Normal Blood Pressure 138/73 H 138/73 H Blood Pressure Mean 94 Blood Pressure Source Monitor Blood Pressure Position Semi-Fowlers Blood Pressure Location Left Arm Pulse Ox 98 98 Oxygen Delivery Method Room Air Room Air Weight Weight: 227 lb 1.218 oz Body Mass Index (BMI) 40.2 Physical Exam Const alert, oriented x3, no apparent distress and healthy appearing General Appearance: cooperative GI normal to inspection, nondistended, normoactive bowel sounds, soft to palpation, non-tender and non-distended Percussion: normal to percussion Rectal Exam: deferred Assessment & Plan Assessment/Plan (1) Iron deficiency anemia refractory to iron therapy: (2) Iron deficiency anemia: QUALIFIERS: Iron deficiency anemia type: unspecified iron deficiency Qualified Code(s): D50.9 - Iron deficiency anemia, unspecified PLAN: Assessment and Plan Assessment and Plan (1) Constipation: Status: Acute (2) Anemia: Status: Acute Orders: Orders CBC W/Diff, Automated Today D64.9 - Anemia, unspecified Medications: New peg 3350-electrolytes 236-22.74-6.74 -5.86 gram (Golytely) take as directed for split dose bowel prep 240 mL PO Q10M 4,000 mL 0RF Plan 69y/o female presents for follow-up post procedures. EGD and Colonoscopy were completed 11/21/2024. EGD biopsies were negative for H. pylori. Colonoscopy prep was again poor. She reports Amitiza BID has shown improvement in constipation. In terms of iron deficiency anemia she does report starting ferrous sulfate once daily 1 month ago. She will repeat a CBC now. I have scheduled her for a colonoscopy with a 2-day bowel prep. Patient Instructions: Continue Amitiza twice a day [id number] bowel prep (Suflave-sample and GoLytely) Complete labs today Continue ferrous sulfate daily Follow-up in office post procedure
--- NOTE | 2025-03-07 09:57 | PCM.POST.ANE ---
Anesthesia: Postop Eval I Current Vital Signs Temperature: 97.2 F Pulse Rate: 72 Blood Pressure: 128/76 Respiratory Rate: 16 Pulse Ox: 100 Oxygen Delivery Method: Room Air Assessment Airway patent: Yes Spontaneous unlabored respirations: Yes Mental status: Asleep nausea: No Vomiting: No Anesthesia Complication: No Fluid Hydration Crystalloid volume administer (ml): 400 Total IV fluid infused: 400 Progress Note Anesthesia document: Postop Eval 1 completed: Yes
--- NOTE | 2025-03-07 09:58 | OP.COLON_ITS ---
Patient Name: Winter Damon Procedure Date: 03/07/2025 9:11 AM Date of : 1955 Age: 70 Procedure: Colonoscopy Indications: Iron deficiency anemia Providers: Tato Posey DO Referring MD: Bay Ramos Medicines: Monitored Anesthesia Care Patient Profile: This is a 70 year old female. Refer to note in patient chart for documentation of history and physical. Last Colonoscopy: within the past year. Complications: No immediate complications. Procedure: Pre-Anesthesia Assessment: - Prior to the procedure, a History and Physical was performed, and patient medications and allergies were reviewed. The patient is competent. The risks and benefits of the procedure and the sedation options and risks were discussed with the patient. All questions were answered and informed consent was obtained. Patient identification and proposed procedure were verified by the physician in the pre-procedure area. Mental Status Examination: alert and oriented. Airway Examination: normal oropharyngeal airway and neck mobility. Respiratory Examination: clear to auscultation. CV Examination: normal. Prophylactic Antibiotics: The patient does not require prophylactic antibiotics. Prior Anticoagulants: The patient has taken no anticoagulant or antiplatelet agents except for NSAID medication. ASA Grade Assessment: II - A patient with mild systemic disease. After reviewing the risks and benefits, the patient was deemed in satisfactory condition to undergo the procedure. The anesthesia plan was to use monitored anesthesia care (MAC). Immediately prior to administration of medications, the patient was re-assessed for adequacy to receive sedatives. The heart rate, respiratory rate, oxygen saturations, blood pressure, adequacy of pulmonary ventilation, and response to care were monitored throughout the procedure. The physical status of the patient was re-assessed after the procedure. After I obtained informed consent, the scope was passed under direct vision. Throughout the procedure, the patient's blood pressure, pulse, and oxygen saturations were monitored continuously. The Colonoscope was introduced through the anus and advanced to the cecum, identified by appendiceal orifice and ileocecal valve. The colonoscopy was performed without difficulty. The patient tolerated the procedure well. The quality of the bowel preparation was adequate. The ileocecal valve, appendiceal orifice, and rectum were photographed. Scope In: 9:28:13 AM Scope Withdrawal Time 0 hours 10 minutes 22 seconds Scope Out: 9:47:00 AM Total Procedure Duration Time 0 hours 18 minutes 47 seconds Findings: The perianal and digital rectal examinations were normal. A few small-mouthed diverticula were found in the recto-sigmoid colon. The exam was otherwise without abnormality. Impression: - Diverticulosis in the recto-sigmoid colon. - The examination was otherwise normal. - No specimens collected. Recommendation: - Discharge patient to home. - Resume previous diet. - Continue present medications. - Repeat colonoscopy in 5 years for surveillance. Procedure Code(s): --- Professional --- 38827, Colonoscopy, flexible; diagnostic, including collection of specimen(s) by brushing or washing, when performed (separate procedure) CPT copyright 2021 [employer]. All rights reserved. The codes documented in this report are preliminary and upon icd 9 coder review may be revised to meet current compliance requirements. Tato Posey DO 03/07/2025 9:58:20 AM This report has been signed electronically. Number of Addenda: 0 Note Initiated On: 03/07/2025 9:11 AM
--- NOTE | 2025-03-07 09:58 | OP.CCLET_ITS ---
03/07/2025 Bay Ramos [address] [facility] [place] [address] Re : Colonoscopy procedure for Winter Damon Dear Dr. Ramos This procedure was performed on February. My impressions and recommendations are as follows: Impressions : - Diverticulosis in the recto-sigmoid colon. - The examination was otherwise normal. - No specimens collected. Recommendations : - Discharge patient to home. - Resume previous diet. - Continue present medications. - Repeat colonoscopy in 5 years for surveillance. My findings are described in the full procedure note, which is enclosed. If I can be of further assistance, please feel free to contact me at . Sincerely, Tato Posey, 03/07/2025 9:58:20 AM This report has been signed electronically.
--- NOTE | 2025-03-07 14:33 | PCM.POSTANE2 ---
Anesthesia Postop Eval I Sum Postop Eval Completion status Anesthesia document: Postop Eval 1 completed: Yes Anesthesia Postop Eval I Summary Anesthesia Postop Eval I Summary: Anesthesia Postop Eval I: Assessment Summary Airway patent Yes 03/07/25 09:58 [email or web address] Spontaneous unlabored Yes 03/07/25 09:58 [email or web address] respirations Mental status Asleep 03/07/25 09:58 [email or web address] nausea No 03/07/25 09:58 [email or web address] Vomiting No 03/07/25 09:58 [email or web address] Anesthesia Postop Eval I: Fluid Summary Crystalloid volume administer 400 03/07/25 09:58 [email or web address] (ml) Colloids volume administered ( ml) Blood Product volume administered (ml) Total IV fluid infused 400 03/07/25 09:58 [email or web address] Anesthesia Postop Eval I: Summary Notes Anesthesia Complication No 03/07/25 09:58 [email or web address] Anesthesia Complication Comment: Post-operative progress note Anesthesia: Postop Eval II Evaluation Mental status: Awake and Calm Pain Level: 0 nausea: No Vomiting: No Complications Anesthesia Complication: No
== END 2025-03-07 10:37 | disposition home or self-care (01) ==
LOC: EN 07:37 → AC 07:38
PROVIDERS: PCP Family Medicine; Referring Provider Family Medicine; Visit Provider Internal Medicine Gastroenterology
PROC: 0DJD8ZZ Inspection of Lower Intestinal Tract, Via Natural or Artificial Opening Endoscopic (ICD-10-PCS; CPT 45378; principal; 2025-03-07 08:55)
DX: K57.30 Diverticulosis of large intestine without perforation or abscess without bleeding (principal); F31.81 Bipolar II disorder; D50.9 Iron deficiency anemia, unspecified; E78.5 Hyperlipidemia, unspecified; K21.9 Gastro-esophageal reflux disease without esophagitis; I10 Essential (primary) hypertension; Z79.899 Other long term (current) drug therapy; G47.33 Obstructive sleep apnea (adult) (pediatric); Z87.891 Personal history of nicotine dependence
CPT/HCPCS: 45378; J2405

== ENCOUNTER 2025-03-27 11:18 | Outpatient (RCR) | payer MEDICAID, SELFPAY | END 2025-03-28 23:59 | LOC: NS 11:18 | PROVIDERS: PCP Family Medicine; Referring Provider Family Medicine; Visit Provider Family Medicine | DX: Z71.3 Dietary counseling and surveillance (principal); E66.01 Morbid (severe) obesity due to excess calories; Z68.38 Body mass index [BMI] 38.0-38.9, adult | CPT/HCPCS: 97803 ==

== ENCOUNTER 2025-05-05 11:29 | Emergency (ER) | payer MEDICAID, SELFPAY ==
[2025-05-05 11:30] VITALS: BP 154/84; PULSE 67; RESP 18; TEMP 36.4; O2SAT 100; BMI 40.9
--- NOTE | 2025-05-05 12:01 | EKG12_ITS ---
Test Reason : RIGHT FLANK PAIN Blood Pressure : */* mmHG Vent. Rate : 66 BPM Atrial Rate : 66 BPM P-R Int : 326 ms QRS Dur : 90 ms QT Int : 456 ms P-R-T Axes : 45 15 43 degrees QTcB Int : 478 ms Normal sinus rhythm Electrical Interference Artifact Otherwise normal ECG Confirmed by Timbo Salinas ([id number]), makeup editor NAV BRIAN ([id number]) on 05/06/2025 9:50:21 AM Referred By: Confirmed By: Timbo Salinas
[2025-05-05 12:19] LABS: Hematocrit 38.7 % (37-47); Hemoglobin 12.0 g/dL (12.0-15.0); Immature Granulocytes Count 0.050 X10^3/uL (0.0-0.0); Mean Corp Hgb Conc 31.0 g/dL (32-36); Mean Corpuscular Volume 89.2 fL (81-99); Mean Platelet Vol. 8.7 fl (6.2-12.0); NRBC Flagged by Analyzer 0 % (0-5); Platelet Count 305 K/mm3 (150-450); RBC Distribution Width CV 19.6 % (11.6-14.6); RBC Distribution Width SD 64.0 fl (35.1-43.9); Red Blood Count 4.34 M/mm3 (4.2-5.4); White Blood Count 9.9 K/mm3 (4.4-11.0)
--- OUTSIDE RECORDS SUMMARY | 2025-05-05 12:24 | XMS RPT_ITS | CCD ---
Author Organization [facility] Care Team Providers Care Financial Processing Clerk Name Role Phone Yedodie FLORES, Julia A Unavailable Unavailab Soraya Duran Unavailable Unavailable Francesca FLORES, Julia A Unavailable Unavailab le Janet Valencia DO Primary Care Provider Dr. Janet Valencia Primary Care Provider [phone] Dr. Janet Valencia Referring Provider [phone] KRISTINE Marcelino NP Attending Provider [phone] Janet Valencia DO Primary Care Provider Janet Valencia DO Primary Care Provider Dr. Janet Valencia Primary Care Provider Dr. Janet Valencia Referring Provider [phone] John Agee Attending Provider [phone] Glenn Nava Attending Provider Dr. Janet Valencia Primary Care Provider [phone] Dr. Janet Valencia Referring Provider [phone] John Agee Attending Provider [phone] Glenn Nava Attending Provider KRISTINE Williamson Primary Care Provider KRISTINE Williamson Referring Provider [phone] Cristobal Olmos Attending Provider [phone] Cristobal Olmos Referring Provider Dr. Cristobal Olmos Other Provider Dr. Hao Olmos Attending Provider Dr. Janet Valencia Primary Care Provider [phone] Dr. Glenn Nava Attending Provider [phone] Glenn Nava Referring Provider [phone] Janet Valencia Referring Provider Dr. Ravindra Singh Attending Provider Dr. John Agee Attending Provider Ryland SEMICONDUCTOR PROCESSING GROUP LEADER, SEMICONDUCTOR PROCESSING GROUP LEADER-C Angélica Attending Provider Dr. Cristobal Olmos Referring Provider Dr. Cristobal Olmos Other Provider Dr. Janet Valencia Primary Care Provider [phone] Dr. Hao Olmos Attending Provider [phone] Dr. Cristobal Olmos Attending Provider [phone] Dr. Glenn Nava Attending Provider [phone] Glenn Nava Referring Provider [phone] Janet Valencia Referring Provider Dr. Ravindra Singh Attending Provider Dr. John Agee Attending Provider KRISTINE Williamson Referring Provider Ryland RICKETTS, SEMICONDUCTOR PROCESSING GROUP LEADER-C Angélica Attending Provider Dr. Ravindra Singh Referring Provider Dr. Ravindra Singh Other Provider Gilmar RICKETTS, SEMICONDUCTOR PROCESSING GROUP LEADER-C Supriya Attending Provider Dr. Cristobal Olmos Referring Provider Dr. Cristobal Olmos Other Provider Dr. Janet Valencia Primary Care Provider [phone] Supriya Cruz Attending Provider Unavailable Dr. Janet Valencia Primary Care Provider [phone] Dr. Glenn Nava Attending Provider Janet Valencia DO Primary Care Provider Richard MA, Dr. Hermosillo Primary Care Provider Richard MA, Dr. Hermosillo Attending Provider Dr. Janet Valencia DO Referring Provider Johny SEMICONDUCTOR PROCESSING GROUP LEADER-CClau Attending Provider Johny SEMICONDUCTOR PROCESSING GROUP LEADER-C, Clau Referring Provider NP. Tory Hewitt Attending Provider NP. Tory Hewitt Referring Provider Taty MA, Dr. Godwin Attending Provider Taty MA, Dr. Godwin Other Provider Cyndie MA, Dr. Lopez Attending Provider Brandy BANG, Dr. Elizabeth Attending Provider Reese MA, Dr. Barfield [facility] Emergency Provider Brian MA, Dr. Cruz Attending Provider Brian MA, Dr. Cruz Emergency Provider Dr. Kunal Esteban MD Other Provider Dr. Ravindra Singh MD Attending Provider Dr. Ravindra Singh MD Referring Provider Johny SEMICONDUCTOR PROCESSING GROUP LEADER-CClau Other Provider ISABEL CERON Attending Unavailable JANET VALENCIA Primary Care Unavailable ISABEL CERON Referring Unavailable JANET VALENCIA Primary Care Unavailable Dr. Janet Valencia DO Primary Care Provider Richard MA, Dr. Hermosillo Attending Provider Dr. Janet Valencia DO Referring Provider [phone] Johny RICKETTS-CClau Attending Provider Johny SEMICONDUCTOR PROCESSING GROUP LEADER-C, Clau Referring Provider LILIAM Hewitt. Tory Attending Provider NP. Tory Hewitt Referring Provider Taty MA, Dr. Godwin Attending Provider Taty MA, Dr. Godwin Other Provider [facility] , Dr. Hermosillo Primary Care Provider [facility] , Dr. Hermosillo Attending Provider [facility] , Dr. Hermosillo Ref[facility] Lopez Attending Provider Brandy BANG, Dr. Elizabeth Attending Provider Johny SEMICONDUCTOR PROCESSING GROUP LEADER-C, Clau Attending Provider Johny SEMICONDUCTOR PROCESSING GROUP LEADER-C, Clau Referring Provider Jaqui Jordan Attending Provider Unavailable Isabel Montiel Referring Provider Suhail BANG, Dr. Lopez Attending Provider Suhail BANG, Dr. Lopez Referring Provider Richard MA, Dr. Hermosillo Primary Care Provider Dr. John Jang MD Referring Provider Richard MA, Dr. Hermosillo Primary Care Provider Richard MA, Dr. Hermosillo Referring Provider [phone] Richard DO, Dr. Hermosillo Attending Provider Dr. John Jang MD Referring Provider Brady BAGN, Dr. Lackey Attending Provider Dr. John Jang MD Referring Provider Richard MA, Dr. Hermosillo Primary Care Provider Richard MA, Dr. Hermosillo Referring Provider Taty MA, Dr. Godwin Attending Provider Dr. Tato Posey DO Other Provider Brady BANG, Dr. Lackey Attending Provider Richard, Jaent Referring Unavailable Richard, Janet Attending Unavailable Richard, Janet Primary Care Unavailable Richard, Janet Primary Care Unavailable Friend, Tato Consulting Unavailable Friend, Tato Attending Unavailable Richard, Janet Referring Unavailable Richard, Janet Attending Unavailable Richard, Janet Primary Care Unavailable Richard, Janet Referring Unavailable Richard, Janet Primary Care Unavailable Richard, Janet Referring Unavailable Friend, Tato Attending Unavailable Richard, Janet Primary Care Unavailable Friend, Tato Attending Unavailable Richard, Janet Referring Unavailable Richard, Janet Attending Unavailable Richard, Janet Primary Care Unavailable Richard, Janet Referring Unavailable Richard, Janet Primary Care Unavailable PrahJohn Referring Unavailable Prah, John Attending Unavailable Richard, Janet Primary Care Unavailable Jaqui Jordan Attending Unavailable Richard, Janet Primary Care Unavailable Glenn Nava Attending Unavailable Richard, Janet Primary Care Unavailable BorJohn slater Attending Unavailable Richard, Janet Referring Unavailable Richard, Janet Primary Care Unavailable Clau Mcclain Attending Unavailable Richard, Janet Referring Unavailable Richard, Janet Primary Care Unavailable John Agee Attending Unavailable Richard, Janet Referring Unavailable Richard, Janet Primary Care Unavailable Glenn Nava Attending Unavailable Richard, Janet Primary Care Unavailable Clau Mcclain Attending Unavailable Richard, Janet Referring Unavailable Richard, Janet Primary Care Unavailable Isabel Ceron Referring Unavailable PrahJohn Attending Unavailable Richard, Janet Attending Unavailable Richard, Janet Referring Unavailable Richard, Janet Primary Care Unavailable Richard, Janet Primary Care Unavailable Clau Mcclain Consulting Unavailable Friend, Tato Attending Unavailable Richard, Janet Referring Unavailable Richard, Janet Primary Care Unavailable Richard, Janet Attending Unavailable Richard, Janet Referring Unavailable Richard, Janet Primary Care Unavailable Richard, Janet Attending Unavailable Richard, Janet Referring Unavailable Richard, Janet Primary Care Unavailable Clau Mcclain Referring Unavailable Clau Mcclain Attending Unavailable Richard, Janet Primary Care Unavailable BorJohn slater Attending Unavailable Richard, Janet Attending Unavailable Richard, Janet Referring Unavailable Richard, Janet Primary Care Unavailable Richard, Janet Primary Care Unavailable Richard, Janet Attending Unavailable Richard, Janet Referring Unavailable Richard, Janet Attending Unavailable Richard, Janet Referring Unavailable Richard, Janet Primary Care Unavailable Richard, Janet Primary Care Unavailable Francisco, Ravindra Attending Unavailable Francisco, Ravindra Referring Unavailable Richard, Janet Primary Care Unavailable Francisco, Ravindra Referring Unavailable Francisco, Ravindra Attending Unavailable Richard, Janet Primary Care Unavailable Anthony Torres Attending Unavailable Josue Apodaca Attending Unavailable Richard, Janet Primary Care Unavailable Richard, Janet Primary Care Unavailable Clau Mcclain Referring Unavailable Clau Mcclain Attending Unavailable Richard, Janet Primary Care Unavailable Carolyne Leigh Attending Unavailable Richard, Janet Primary Care Unavailable Clau Mcclain Referring Unavailable Clau Mcclain Attending Unavailable Richard, Janet Primary Care Unavailable Tory Hewitt Referring Unavailable Kunal Esteban Consulting Unavailable Tory Hewitt Attending Unavailable Gilmar SEMICONDUCTOR PROCESSING GROUP LEADER, Supriya Attending Unavailable Gilmar SEMICONDUCTOR PROCESSING GROUP LEADER, Supriya Referring Unavailable Richard, Janet Primary Care Unavailable Clau Mcclain Attending Unavailable Richard, Janet Referring Unavailable Richard, Janet Primary Care Unavailable Richard, Janet Attending Unavailable Richard, Janet Primary Care Unavailable Richard, Janet Referring Unavailable Darya Abreu Attending Unavailable Richard, Janet Referring Unavailable Richard, Janet Primary Care Unavailable Richard, Janet Primary Care Unavailable Clau Mcclain Consulting Unavailable Friend, Tato Attending Unavailable Richard, Janet Referring Unavailable Friend, Tato Consulting Unavailable Gilmar SEMICONDUCTOR PROCESSING GROUP LEADER, Supriya Referring Unavailable Francisco, Ravindra Attending Unavailable Richard, Janet Primary Care Unavailable Friend, Tato Attending Unavailable Friend, Tato Consulting Unavailable Richard, Janet Primary Care Unavailable Richard, Janet Referring Unavailable Richard, Janet Primary Care Unavailable Richard, Janet Referring Unavailable Clau Mcclain Attending Unavailable Richard, Janet Primary Care Unavailable Richard, Janet Referring Unavailable Francisco, Ravindra Attending Unavailable Richard, Janet Primary Care Unavailable Francisco, Ravindra Attending Unavailable Richard, Janet Referring Unavailable Richard, Janet Primary Care Unavailable John Agee Attending Unavailable RichardJanet Referring Unavailable John Jang Attending Unavailable Richard, Janet Referring Unavailable Richard, Janet Primary Care Unavailable Ryland RICKETTS, Angélica Attending Unavailable Richard, Jante Referring Unavailable Richard, Janet Primary Care Unavailable Richard, Janet Primary Care Unavailable Tory Hewitt Referring Unavailable Tory Hewitt Attending Unavailable John Agee Attending Unavailable John Agee Referring Unavailable Richard Janet Primary Care Unavailable Allergies Allergy Classification Reported Allergen(s) Allergy Type Date of Onset Reaction(s) Facility (6 sources) acetaminophen / oxyCODONE drug allergy 05-01-20 14 Break out in hives and itch. [facility] Work Phone: (3 sources) Bee/Wasp/Ant venom; 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: [BEE STINGS] allergy to substance 03-27-20 14 Anaphylaxis [facility] Work Phone: (6 sources) Corticosteroids drug allergy 05-01-20 14 Swelling and hives [facility] Work Phone: (3 sources) meloxicam drug allergy 02-06-20 15 [facility] Work Phone: (3 sources) QUEtiapine drug allergy 11-26-19 15 Shaky, lightheaded, abnormal dreams [facility] Work Phone: (3 sources) traMADol drug allergy 03-27-20 14 severe itching [facility] Work Phone: (3 sources) valproate drug allergy 12-14-19 15 nighmares [facility] Work Phone: (9 sources) Acetaminophen / oxyCODONE; 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: [OXYCODONE-ACETAMIN OPHEN] Drug Allergy 01-10-20 09 Itching, Hives, Rash [facility] (20 sources) meloxicam; 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: [MELOXICAM] Drug Allergy 12-11-19 08 Itching, Rash, Hives [facility] (9 sources) Pentazocine; 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: [PENTAZOCINE LACTATE] Drug Allergy 02-17-20 06 Hives, Rash [facility] Work Phone: (9 sources) predniSONE; 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: [PREDNISONE] Drug Allergy 12-12-19 09 Swelling [facility] (9 sources) Shellfish; 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: [SHELLFISH] Propensity to adverse reactions 02-17-20 06 [facility] Work Phone: (9 sources) traMADol; 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: [TRAMADOL HCL] Drug Allergy 03-06-20 14 Rash, Itching [facility] (9 sources) Bee Sting; 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: [BEE STING] Allergy to substance 03-27-20 14 Anaphylaxis [facility] (9 sources) Bees; 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: [BEES] Propensity to adverse reactions 05-10-20 07 Anaphylaxis, Swelling [facility] Work Phone: (20 sources) QUEtiapine; 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: [QUETIAPINE] Drug Allergy 11-26-19 15 Mental Status Change [facility] (20 sources) traMADol; 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: [TRAMADOL] Drug Allergy 08-10-20 21 Hives [facility] (20 sources) Valproate Drug Allergy 08-10-20 21 Other - nightmares [facility] (7 sources) Glucocorticoid preparation; 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: [CORTICOSTEROIDS (GLUCOCORTICOIDS)] Drug Allergy 05-01-20 14 Hives, [facility] (17 sources) oxyCODONE; 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: [OXYCODONE] Drug Allergy 08-02-20 18 [facility] (7 sources) Valproate; 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: [VALPROIC ACID] Drug Allergy 12-14-19 15 Mental Status Change [facility] (4 sources) Bee pollen; 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: [BEE POLLEN] Drug Allergy 03-27-20 14 [facility] (14 sources) Shellfish; 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: [SHELLFISH DERIVED] Drug Allergy 02-17-20 06 [facility] (13 sources) Cephalexin; 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: [CEPHALEXIN] Drug Allergy 10-25-19 25 [facility] (10 sources) Flurazepam Drug Allergy 10-25-19 25 Other [facility] Comment on above: nightmare (1 source) Acetaminophen Drug Allergy 08-16-20 24 [facility] (1 source) Cephalexin Drug Allergy 03-27-20 25 [facility] (1 source) Flurazepam Drug Allergy 03-27-20 25 [facility] (1 source) meloxicam Drug Allergy 03-27-20 [facility] (1 source) oxyCODONE Drug Allergy 03-27-20 [facility] (1 source) QUEtiapine Drug Allergy 03-27-20 [facility] (1 source) traMADol Drug Allergy 03-27-20 [facility] (1 source) Valproate Drug Allergy 03-27-20 [facility] Medications Current Medications Medication Drug Class(es) Dates Sig (Normalized) Sig (Original) acetaminophen 325 mg / oxyCODONE hydrochloride 5 mg oral tablet (20 sources) Opioid Agonist Start: 08-10-2021 take 2 tablets by mouth every eight hours as needed Oxycodone-Acetami nophen Active 2 TABLET PO EVERY 8 HOURS NEEDED 17 03August 10, 2021 10:32am Start: 08-08-2018 End: 08-15-2018 Oxycodone-Acetaminophen 1 TA BLET tablet Discontinued 1 - 2 {tbl} PO EVERY 6 HOURS NEEDED as needed for Pain August 08, 2018 1:00am August 14, 2018 1:00am August 15, 2018 1:13am Urinary urgency Urgency of urination Start: 08-08-2018 End: 08-15-2018 take 1 tablet by mouth every six hours as needed Oxycodone-Acetaminophen Discontinued 1 - 2 TABLET PO EVERY 6 HOURS NEEDED 17 03August 08, 2018 1:00am August 15, 2018 1:13am Start: 07-25-2018 End: 08-01-2018 Oxycodone-Acetaminophen 1 TA BLET tablet Discontinued 1 - 2 {tbl} PO EVERY 6 HOURS NEEDED as needed for Pain July 25, 2018 1:00am July 31, 2018 1:00am August 01, 2018 1:07am Increased frequency of urination Frequency of micturition Start: 07-25-2018 End: 08-01-2018 take 1 tablet by mouth every six hours as needed Oxycodone-Acetaminophen Discontinued 1 - 2 TABLET PO EVERY 6 HOURS NEEDED 27 03July 25, 2018 1:00am August 01, 2018 1:07am amLODIPine 5 mg oral tablet (20 sources) Dihydropyridine Calcium Channel Kim Start: 11-02-2024 take 1 tablet by mouth once daily Amlodipine 5 mg tablet Active 5 mg PO DAILY 28 07November 02, 2024 1:00am Start: 09-28-2023 End: 08-16-2024 take 1 tablet by mouth once daily Amlodipine 5 mg tablet Discontinued 5 mg PO DAILY September 28, 2023 1:00am August 16, 2024 8:35am Start: 07-18-2018 End: 01-21-2021 take 1 tablet by mouth once daily Amlodipine 10 MG tablet Discontinued 10 mg PO DAILY July 18, 2018 1:00am January 21, 2021 9:40am take 5 mg by mouth once daily am LODIPine (NORVASC) 10 mg tablet Take 5 mg by mouth once daily. Active Comment on above: Take 10 mg by mouth once daily. ascorbic acid 500 mg oral tablet (7 sources) Vitamin C Start: take 1 tablet by mouth once daily Ascorbic Acid (Vitamin C) 500 mg tablet Active 500 mg PO daily January 23, 2025 12:00am On Hold: PT STOPPED WHEN TAKING IRON cephalexin 500 mg oral capsule (20 sources) Cephalosporin Antibacterial Start: take 500 mg by mouth every twelve hours Cephalexin Active 500 MG PO EVERY 12 HOURS 6 3 January 04, 2022 12:00am Start: 08-10-2021 take 500 mg by mouth every twelve hours Cephalexin Active 500 MG PO EVERY 12 HOURS 6 3 August 10, 2021 10:32am Start: 08-08-2018 End: 08-11-2018 take 1 capsule by mouth every twelve hours Cephalexin 500 MG capsule Discontinued 500 mg PO EVERY 12 HOURS 6 3 0 August 08, 2018 1:00am August 10, 2018 1:00am August 11, 2018 1:13am post-operative Start: 07-25-2018 End: 07-28-2018 take 1 capsule by mouth every twelve hours Cephalexin 500 MG capsule Discontinued 500 mg PO EVERY 12 HOURS 6 3 0 July 25, 2018 1:00am July 27, 2018 1:00am July 28, 2018 1:17am post-operative Start: 01-13-2017 End: 08-13-2017 take 1 capsule by mouth every six hours Cephalexin 500 MG capsule Discontinued 500 mg PO EVERY 6 HOURS 40 0 January 13, 2017 12:00am August 13, 2017 9:22am DULoxetine 30 mg delayed release oral capsule (20 sources) Serotonin and Norepinephrine Reuptake Inhibitor Start: 07-07-2023 take 1 capsule by mouth twice daily Duloxetine 30 mg capsule,delayed release(DR/EC) Active 30 mg PO TWICE A DAY July 07, 2023 1:00am Start: 10-09-2020 End: 11-20-2020 take 1 capsule by mouth once daily in the evening Duloxetine 30 mg capsule,delayed release(DR/EC) Discontinued 30 mg PO EVERY EVENING 30 October 09, 2020 12:12pm November 20, 2020 9:28am Start: 10-09-2020 End: 12-22-2020 take 1 capsule by mouth once daily in the morning Duloxetine 60 mg capsule,delayed release(DR/EC) Discontinued 60 mg PO EVERY MORNING 30 October 09, 2020 1:00am December 22, 2020 8:25am Start: 05-26-2015 End: 10-09-2020 take 1 capsule by mouth twice daily Duloxetine 30 MG capsule Discontinued 30 mg PO TWICE A DAY June 17, 2016 12:00am October 09, 2020 12:11pm Comment on above: Take 30 mg by mouth twice daily. NEW 11/20/20: 60 mg in AM 11/24/20: will change to different medication 120 actuat fluticasone propionate 0.22 mg/actuat metered dose inhaler (20 sources) Corticosteroid Start: 10-09-19 take 1 puff(s) by inhalation three times daily Fluticasone Propionate (Flovent Hfa) 220 mcg/actuation HFA aerosol inhaler Active 1 PUFF INHALATION THREE TIMES A DAY October 09, 2020 10:46am Start: 01-29-2019 End: 10-09-2020 Fluticasone Propionate (Flov ent Hfa) 220 mcg/actuation HFA aerosol inhaler Discontinued 1 NMA INHALATION TWICE A DAY 12 August 07, 2019 1:42pm October 09, 2020 10:47am Start: 01-29-2019 End: 10-09-2020 take 1 puff(s) by inhalation twice daily Fluticasone Propionate (Flovent Hfa) 220 mcg/actuation HFA aerosol inhaler Discontinued 1 PUFF INHALATION TWICE A DAY August 07, 2019 1:42pm October 09, 2020 10:47am Start: 05-15-2018 End: 08-02-2018 Fluticasone Propionate (Flov ent Hfa) 44 mcg/actuation HFA aerosol inhaler Discontinued 2 NMA INHALATION TWICE A DAY May 15, 2018 12:00am August 02, 2018 10:15am Start: 05-15-2018 End: 08-02-2018 Fluticasone Propionate (Flov ent Hfa) 44 mcg/actuation HFA aerosol inhaler Discontinued 2 INH INHALATION TWICE A DAY May 15, 2018 12:00am August 02, 2018 10:15am 12 hr guaiFENesin 1200 mg extended release oral tablet (20 sources) Start: 01-23-2025 take 1 tablet by mouth twice daily Guaifenesin 1,200 mg tablet extended release 12hr Active 1200 mg PO TWICE A DAY January 23, 2025 12:00am Start: 01-23-2025 take 1 tablet by mikla th every twelve hours Guaifenesin 1,200 mg tablet extended release 12hr Active mg PO January 23, 2025 12:00am Start: 08-01-2023 take 1200 mg by mout h every twelve hours Guaifenesin Active 1200 MG PO Q12H 60 August 01, 2023 1:00am Start: 08-01-2023 End: 11-16-2024 take 1 tablet by mouth every twelve hours Guaifenesin 1,200 mg tablet extended release 12hr Discontinued 1200 mg PO Q12H 60 6 August 20, 2024 9:13am November 16, 2024 10:38am Start: 04-10-2020 End: 11-26-2020 take 1 tablet by mouth every twelve hours Guaifenesin 1,200 mg tablet extended release 12hr Discontinued 1200 mg PO Q12H 60 6 September 26, 2020 2:23pm November 26, 2020 9:50am Start: 08-02-2018 End: 02-18-2020 take 1 tablet by mouth every twelve hours Guaifenesin 1,200 mg tablet extended release 12hr Discontinued 1200 mg PO Q12H 60 5 August 02, 2018 1:00am February 18, 2020 10:09am Postnasal drip Start: 08-13-2017 End: 11-03-2017 take 1 tablet by mouth every twelve hours, then take 1 tablet by mouth every twelve hours Guaifenesin (Mucinex) 600 mg tablet extended release 12hr Discontinued 600 mg PO Q12H August 13, 2017 1:00am November 03, 2017 10:55am Start: 04-16-2016 MUCINEX 600 MG [id number] take one tab twice per day GUAIFENESIN [id number] Cathie Sher SEMICONDUCTOR PROCESSING GROUP LEADER Start: 04-16-2016 MUCINEX 600 MG [id number] take one tab twice per day GUAIFENESIN [id number] Cathie Sher NP lisinopril 20 mg oral tablet (20 sources) Angiotensin Converting Enzyme Inhibitor Start: 01-23-2025 take 1 tablet by mouth twice daily Lisinopril 20 mg tablet Active 20 mg PO TWICE A DAY January 23, 2025 9:49am Start: 08-16-2024 End: 01-23-2025 take 10 mg by mouth twice daily Lisinopril 20 mg table t Discontinued 10 mg PO TWICE A DAY August 16, 2024 11:30am January 23, 2025 9:52am Start: 09-27-2023 End: 08-16-2024 take 1 tablet by mouth twice daily Lisinopril 20 mg tablet Discontinued 20 mg PO TWICE A DAY September 27, 2023 1:00am August 16, 2024 11:33am Start: 10-08-2020 End: 09-27-2023 Lisinopril 40 mg tablet Disc ontinued 20 mg PO TWICE A DAY October 08, 2020 1:00am September 27, 2023 4:55pm Start: 10-08-2020 End: 09-27-2023 take 20 mg by mouth twice daily Lisinopril Discontinue d 20 MG PO TWICE A DAY October 08, 2020 1:00am September 27, 2023 4:55pm Start: 09-09-2013 End: 10-08-2020 take 2 tablets by mouth twice daily Lisinopril 10 MG tablet Discontinued 20 mg PO TWICE A DAY September 09, 2013 1:00am October 08, 2020 12:38pm Start: 09-09-2013 End: 10-08-2020 take 20 mg by mouth twice daily Lisinopril Discontinue d 20 MG PO TWICE A DAY September 09, 2013 1:00am October 08, 2020 12:38pm Start: 03-15-2013 LISINOPRIL 10 MG TABS One half tablet by mouth daily LISINOPRIL [id number] Janet Valencia DO Start: 03-15-2013 LISINOPRIL 10 MG TABS Tale 0.5 tablets by [facility] once daily LISINOPRIL [id number] Fiordaliza Mcintosh Comment on above: Take 10 mg by mouth once daily. metoprolol tartrate 25 mg oral tablet (20 sources) beta-Adrenergic Kim Start: 10-25-2024 take 1 tablet by mouth twice daily Metoprolol Tartrate 25 mg tablet Active 25 mg PO TWICE A DAY 180 October 25, 2024 1:00am Start: 11-18-2023 End: 01-04-2024 Metoprolol Tartrate 50 mg ta blet Discontinued 50 mg PO .COMPLEX 1 November 18, 2023 12:00am January 04, 2024 4:07pm 50 mg orally 1 hour before coronary CTA; ondansetron 4 mg disintegrating oral tablet (20 sources) Serotonin-3 Receptor Antagonist Start: 08-16-2024 take 1 tablet by mouth every eight hours as needed for nausea and vomiting Ondansetron 4 mg tablet,disintegrating Active 4 mg PO Q8H as needed for nausea and vomiting August 16, 2024 1:00am Start: 12-15-2018 End: 10-09-2020 take 1 tablet by mouth every eight hours as needed for nausea Ondansetron 4 MG tablet Discontinued 4 mg PO EVERY 8 HOURS NEEDED as needed for Nausea December 15, 2018 12:00am October 09, 2020 10:46am Start: 08-27-2014 End: 09-01-2014 take 1 tablet by mouth every four hours as needed for nausea and vomiting ONDANSETRON 4 MG TBDP 1 tablet by mouth every 4 hours as needed for nausea and vomiting ONDANSETRON [id number] Janet Valencia DO Start: 05-03-2014 End: 05-07-2014 ZOFRAN 4 MG TABS 1 tablet ev shana 6 hours as needed for nausea [facility] [id number] Janet Valencia DO Start: 05-03-2014 End: 05-07-2014 ZOFRAN 4 MG TABS 1 tablet ev shana 6 hours as needed for nausea [facility] [id number] Janet Valencia DO 24 hr oxybutynin chloride 10 mg extended release oral tablet (20 sources) Cholinergic Muscarinic Antagonist Start: 07-31-2021 take 1 tablet by mouth once daily Oxybutynin Chloride 10 mg tablet extended release 24hr Active 10 mg PO DAILY July 31, 2021 1:00am pantoprazole 40 mg delayed release oral tablet (12 sources) Proton Pump Inhibitor Start: 08-16-2024 take 1 tablet by mouth once daily Pantoprazole 40 mg tablet,delayed release (DR/EC) Active 40 mg PO daily August 16, 2024 1:00am take 40 mg by mouth once daily in the morning pantoprazole (PROTONIX) 40 mg grps Take 40 mg by mouth daily at 6 am. Active plecanatide 3 mg oral tablet (2 sources) Start: 03-27-2025 take 1 tablet by mouth once daily in the morning Plecanatide (Trulance) 3 mg tablet Active 3 mg PO daily March 27, 2025 12:00am take once daily in the morning polyethylene glycol 3350 85122 mg powder for oral solution (20 sources) Osmotic Laxative Start: 01-28-2025 Polyethylene Glycol 3350 (Miralax) 17 gram/dose powder Active 4 g PO ONCE 238 0 January 28, 2025 12:00am As instructed for bowel prep Start: 01-28-2025 End: 03-06-2025 Polyethylene Glycol 3350 (Mi ralax) 17 gram/dose powder Discontinued 4 g PO .COMPLEX 119 0 January 28, 2025 12:00am March 06, 2025 12:01pm 4 grams orally; As directed for bowel prep Start: 08-05-2021 End: 10-25-2024 Polyethylene Glycol 3350 (Mi ralax) 17 gram powder in packet Discontinued 17 g PO DAILY as needed for constipation August 16, 2024 11:32am October 25, 2024 2:32pm Start: 06-01-2016 MIRALAX LINDSAY dailey bowel prep sheet POLYETHYLENE GLYCOL 3350 [id number] Johny Ponce MD Comment on above: Take by mouth. potassium chloride 20 meq extended release oral tablet (20 sources) Start: 10-08-2020 take 1 tablet by mouth twice daily Potassium Chloride 20 mEq tablet extended release Active 20 meq PO TWICE A DAY October 08, 2020 1:00am Start: 06-17-2016 End: 10-09-2020 take 1 tablet by mouth twice daily Potassium Chloride 20 MEQ tablet Discontinued 20 meq PO TWICE A DAY June 17, 2016 12:00am October 09, 2020 10:46am Start: 02-21-2015 take 1 tablet by mikal twice daily POTASSIUM CHLORIDE ER 20 MEQ CR-TABS One tablet by mouth twice daily POTASSIUM CHLORIDE [id number] Chiquis Palacios PA-C Comment on above: Take 20 mEq by mouth twice daily. tiZANidine 4 mg oral tablet (20 sources) Central alpha-2 Adrenergic Agonist Start: 12-19-2024 End: 01-23-2025 take 1 tablet by mouth twice daily as needed Tizanidine 4 mg tablet Active 4 mg PO TWICE A DAY as needed for muscle spasticity January 23, 2025 9:51am Start: 09-28-2024 End: 11-16-2024 take 1 capsule by mouth every eight hours as needed Tizanidine (Zanaflex) 4 mg capsule Discontinued 4 mg PO Q8H as needed for muscle spasticity 20 0 September 28, 2024 1:00am November 16, 2024 10:44am traZODone hydrochloride 150 mg oral tablet (20 sources) Serotonin Reuptake Inhibitor Start: 09-28-2023 take 1 tablet by mouth at bedtime Trazodone 150 mg tablet Active 150 mg PO AT BEDTIME September 28, 2023 1:00am Start: 01-01-2022 End: 09-28-2023 Trazodone 100 mg tablet Disc ontinued 150 mg PO AT BEDTIME January 01, 2022 12:00am September 28, 2023 12:22pm Start: 01-01-2022 End: 09-28-2023 take 150 mg by mouth at bedtime Trazodone Discontinued 150 MG PO AT BEDTIME January 01, 2022 12:00am September 28, 2023 12:22pm Start: 01-01-2022 take 100 mg by mouth at bedtim e Trazodone Active 100 MG PO AT BEDTIME January 01, 2022 12:00am Start: 03-15-2013 End: 03-27-2014 take 1 tablet by mouth once daily TRAZODONE HCL 50 MG TABS One tablet by mouth daily TRAZODONE HCL [id number] Fiordaliza Mcintosh Comment on above: Take 150 mg by mouth daily at bedtime. Vibegron (14 sources) Start: 11-16-2023 take 1 tablet by mouth once daily Vibegron (Gemtesa) 75 mg tablet Active 75 mg PO DAILY November 16, 2023 12:00am Start: 11-16-2023 take 1 tablet by mikal th once daily Vibegron (Gemtesa) 75 mg tablet Active 75 MG PO DAILY November 16, 2023 12:00am vibegron (GEMTESA) 75 mg tablet (2 sources) take 1 tablet by mikal th once daily vibegron (GEMTESA) 75 mg tablet Take 75 mg by mouth once daily. Active Completed/Discontinued Medications Medication Drug Class(es) Dates Sig (Normalized) Sig (Original) acetaminophen 500 mg oral tablet (20 sources) Start: 03-24-2021 End: 01-03-2025 take 1 tablet by mouth every six hours as needed for pain Acetaminophen 500 mg tablet Discontinued 500 mg PO EVERY 6 HOURS as needed for pain 30 March 24, 2021 12:00am January 03, 2025 10:17am acetaminophen 325 mg / HYDROcodone bitartrate 5 mg oral tablet (20 sources) Opioid Agonist Start: 12-19-2024 End: 03-06-2025 Hydrocodone-Acetami nophen 5-325 mg tablet Discontinued 1 {tbl} PO THREE TIMES A DAY as needed for pain 0 December 19, 2024 12:00am March 06, 2025 12:00pm Start: 10-25-2024 End: 11-16-2024 Hydrocodone-Acetaminophen 5- 325 mg tablet Discontinued {tbl} PO 0 October 25, 2024 1:00am November 16, 2024 10:38am Start: 04-09-2024 End: 08-16-2024 Hydrocodone-Acetaminophen 5- 325 mg tablet Discontinued 1 {tbl} PO TWICE A DAY as needed 0 April 09, 2024 12:00am August 16, 2024 11:28am Start: 10-24-2023 End: 01-04-2024 Hydrocodone-Acetaminophen 5- 325 mg tablet Discontinued 1 {tbl} PO as needed for pain 0 October 24, 2023 1:00am January 04, 2024 10:33am Start: 10-24-2023 Hydrocodone-Ac etaminophen Active 1 TABLET PO October 24, 2023 1:00am End: 12-26-2024 take 1 tablet by mouth every eight hours as needed HYDROcodone-acetaminophen (NORCO) 5-325 mg per tablet Take 1 tablet by mouth every 8 hours as needed. 12/26/2024 Discontinued (Discontinued by another Health Care Provider) NORCO 5-325 MG T ABS q 6 hrs prn HYDROCODONE-ACETAMINOPHEN [id number] Angélica Marcelino DISTRICT [employer] EXAMINER NORCO 5-325 MG T ABS q 6 hrs prn HYDROCODONE-ACETAMINOPHEN [id number] Angélica Marcelino [employer] EXAMINER NORCO 5-325 MG T ABS q 6 hrs prn HYDROCODONE-ACETAMINOPHEN [id number] Cristobal Olmos Comment on above: Take 1 tablet by mikal th every 8 hours as needed. albuterol 0.83 mg/ml inhalation solution (20 sources) beta2-Adrenergic Agonist Start: End: take 2.5 mg by inhalation every four to six hours as needed for wheezing Albuterol Sulfate 2.5 mg /3 mL (0.083 %) solution for nebulization Discontinued 2.5 mg INHALATION EVERY 4-6 HOURS as needed for shortness of breath or wheezing January 23, 2025 12:00am March 06, 2025 11:58am Start: 01-23-2025 End: 03-06-2025 Albuterol Sulfate (Ventolin Hfa) 90 mcg/actuation HFA aerosol inhaler Discontinued 1 NMA INHALATION DAILY January 23, 2025 12:00am March 06, 2025 11:58am Start: 11-21-2023 take 2.5 mg by inhal ation every four to six hours Albuterol Sulfate Active 2.5 MG INHALATION EVERY 4-6 HOURS 180 November 21, 2023 10:29am Start: 09-27-2023 End: 11-21-2023 take 2.5 mg by inhalation every four to six hours as needed for wheezing Albuterol Sulfate 2.5 mg /3 mL (0.083 %) solution for nebulization Discontinued 2.5 mg INHALATION EVERY 4-6 HOURS as needed for Wheezing September 27, 2023 4:51pm November 21, 2023 10:30am Start: 01-01-2022 take 1 puff(s) by in halation once daily Albuterol Sulfate (Proair Hfa) 90 mcg/actuation HFA aerosol inhaler Active 1 PUFF INHALATION DAILY January 01, 2022 9:37am Start: 01-01-2022 End: 08-16-2024 Albuterol Sulfate (Proair Hf a) 90 mcg/actuation HFA aerosol inhaler Discontinued 1 NMA INHALATION DAILY 8.5 November 21, 2023 10:29am August 16, 2024 11:26am Start: 01-01-2022 End: 11-21-2023 take 1 puff(s) by inhalation once daily Albuterol Sulfate (Proair Hfa) 90 mcg/actuation HFA aerosol inhaler Active 1 PUFF INHALATION DAILY 8.November 21, 2023 10:29am Start: 07-31-2021 take 1 puff(s) by in halation three times daily Albuterol Sulfate Active 2 PUFF INHALATION THREE TIMES A DAY 8.July 31, 2021 11:35am Start: 07-18-2018 End: 09-27-2023 take 2.5 mg by inhalation three times daily as needed for wheezing Albuterol Sulfate 2.5 mg /3 mL (0.083 %) solution for nebulization Discontinued 2.5 mg INHALATION 3 TIMES DAILY NEEDED as needed for Wheezing August 05, 2021 2:07pm September 27, 2023 4:57pm Start: 07-18-2018 End: 07-31-2021 take 1 puff(s) by inhalation three times daily Albuterol Sulfate Discontinued 2 PUFF INHALATION THREE TIMES A DAY July 18, 2018 1:47pm July 31, 2021 10:35am Start: 07-18-2018 End: 07-31-2021 take 1 puff(s) by inhalation three times daily Albuterol Sulfate Discontinued 2 PUFF INHALATION THREE TIMES A DAY July 18, 2018 2:47pm July 31, 2021 11:35am Start: 08-18-2017 End: 07-18-2018 Albuterol Sulfate 90 mcg/act uation HFA aerosol inhaler Discontinued 2 NMA INHALATION EVERY 4 HOURS NEEDED as needed for Bronchodialation 8.5 6 February 20, 2018 9:54am July 18, 2018 2:47pm Mild intermittent asthma, uncomplicated Start: 08-18-2017 End: 07-18-2018 take 1 puff(s) by inhalation every four hours as needed Albuterol Sulfate Discontinued 2 PUFF INHALATION EVERY 4 HOURS NEEDED 8.5 February 20, 2018 9:54am July 18, 2018 2:47pm Start: 06-17-2016 End: 07-18-2018 take 2.5 mg by inhalation twice daily as needed for wheezing Albuterol Sulfate 2.5 MG/3 ML solution for nebulization Discontinued 2.5 mg INHALATION TWICE A DAY as needed for shortness of breath or wheezing 180 0 August 18, 2017 12:11pm July 18, 2018 2:47pm Mild intermittent asthma, uncomplicated Start: 02-12-2016 take 2 puff(s) by in halation every four to six hours as needed for wheezing PROAIR HFA 108 (90 Base) MCG/ACT AERS 2 puffs INH q 4-6 hours PRN Wheezing ALBUTEROL SULFATE [id number] Angélica Marcelino CNP Start: 02-12-2016 take 2 puff(s) by in halation every four to six hours as needed for wheezing PROAIR HFA 108 (90 Base) MCG/ACT AERS 2 puffs INH q 4-6 hours PRN Wheezing ALBUTEROL SULFATE [id number] Angélica Marcelino DISTRICT MEDICAL EXAMINER Start: 09-09-2013 End: 08-18-2017 take 1 puff(s) by inhalation every four hours as needed Albuterol Sulfate Discontinued 2 PUFF INHALATION EVERY 4 HOURS NEEDED September 09, 2013 3:08pm August 18, 2017 12:15pm Start: 09-09-2013 End: 08-18-2017 take 1 puff(s) by inhalation every four hours as needed Albuterol Sulfate Discontinued 2 PUFF INHALATION EVERY 4 HOURS NEEDED September 09, 2013 12:00am August 18, 2017 11:15am Start: 09-09-2013 End: 08-18-2017 take 1 puff(s) by inhalation every four hours as needed Albuterol Sulfate Discontinued 2 PUFF INHALATION EVERY 4 HOURS NEEDED September 09, 2013 1:00am August 18, 2017 12:15pm Start: 04-17-2013 End: 12-26-2024 albuterol HFA (PROAIR HFA) 9 0 mcg/actuation inhaler Indications: Unspecified asthma(493.90) Inhale 2 Puffs as instructed as needed for Wheezing/Shortness of Breath. 1 Inhaler 5 04/17/2013 12/26/2024 Discontinued (Discontinued by another Health Care Provider) Start: 03-15-2013 End: 02-17-2017 PROAIR HFA 108 (90 Base) MCG /ACT AERS Inhale 2 puffs as needed ALBUTEROL SULFATE [id number] Soraya Milton Start: 03-15-2013 End: 02-17-2017 PROAIR HFA 108 (90 Base) MCG /ACT AERS Inhale 2 puffs as needed ALBUTEROL SULFATE [id number] Soraya Milton Start: 03-15-2013 PROAIR HFA 108 (90 Base) MCG/ACT AERS Inhale 2 puffs as needed ALBUTEROL SULFATE [id number] Angélica Marcelino CNP Start: 03-15-2013 PROAIR HFA 108 (90 Base) MCG/ACT AERS Inhale 2 puffs as needed ALBUTEROL SULFATE [id number] Fiordaliza Mcintosh Comment on above: Inhale 2 Puffs as in structed as needed for Wheezing/Shortness of Breath. Inhale 2 Puffs as in structed. albuterol 0.833 mg/ml / ipratropium bromide 0.167 mg/ml inhalant solution (9 sources) Anticholinergic, beta2-Adrenergic Agonist Start: 11-01-2014 IPRATROPIUM-ALBUTEROL 0.5-2.5 (3) MG/3ML SOLN One inhalation every 6 hours as needed for asthma IPRATROPIUM-ALBUTEROL [id number] Janet Valencia DO Start: 06-04-2014 End: 06-11-2014 IPRATROPIUM-ALBUTEROL 0.5-2. 5 (3) MG/3ML SOLN one inhalation via nebulizer as needed every 4 hours for cough IPRATROPIUM-ALBUTEROL [id number] Janet Valencia DO Albuterol Sulfate 1 PUFF inhaler (20 sources) Start: 07-18-2018 End: 07-31-2021 Albuterol Sulfate 1 PUFF inh aler Discontinued 2 NMA INHALATION THREE TIMES A DAY July 18, 2018 2:47pm July 31, 2021 11:35am Start: 09-09-2013 End: 08-18-2017 Albuterol Sulfate 1 PUFF inh aler Discontinued 2 NMA INHALATION EVERY 4 HOURS NEEDED as needed for Bronchodialation September 09, 2013 1:00am August 18, 2017 12:15pm Albuterol Sulfate 2.5 mg /3 mL (0.083 %) solution for nebulization (10 sources) Start: 11-21-2023 End: 08-16-2024 take 2.5 mg by inhalation every four to six hours as needed for wheezing Albuterol Sulfate 2.5 mg /3 mL (0.083 %) solution for nebulization Discontinued 2.5 mg INHALATION EVERY 4-6 HOURS as needed for Wheezing 180 2 November 21, 2023 10:29am August 16, 2024 11:26am Start: 11-21-2023 End: 08-16-2024 take 2.5 mg by inhalation every four to six hours as needed for wheezing Albuterol Sulfate 2.5 mg /3 mL (0.083 %) solution for nebulization Discontinued 2.5 mg INHALATION EVERY 4-6 HOURS as needed for Wheezing 180 November 21, 2023 10:29am August 16, 2024 11:26am amitriptyline hydrochloride 10 mg oral tablet (20 sources) Tricyclic Antidepressant Start: 08-03-2021 End: 09-16-2021 take 1 tablet by mouth at bedtime Amitriptyline 10 mg tablet Discontinued 10 mg PO AT BEDTIME 30 2 August 03, 2021 1:00am September 16, 2021 2:21pm Start: 03-23-2021 End: 06-03-2021 take 1 tablet by mouth once daily Amitriptyline 10 mg tablet Discontinued 10 mg PO DAILY March 23, 2021 12:00am June 03, 2021 10:27am amoxicillin 500 mg oral capsule (3 sources) Penicillin-class Antibacterial Start: 04-16-2016 End: 04-26-2016 take 1 tablet by mouth three times daily AMOXICILLIN 500 MG CAPS One tablet by mouth three times daily AMOXICILLIN [id number] Cathie Sher [employer] amoxicillin 875 mg / clavulanate 125 mg oral tablet (17 sources) Penicillin-class Antibacterial Start: 10-19-2023 End: 11-16-2023 Amoxicillin-Pot Clavulanate 875-125 mg tablet Discontinued {tbl} PO October 19, 2023 1:00am November 16, 2023 11:10am Start: 10-19-2023 End: 11-16-2023 Amoxicillin-Pot Clavulanate Discontinued TABLET PO October 19, 2023 1:00am November 16, 2023 11:10am aspirin 81 mg delayed release oral tablet (20 sources) Platelet Aggregation Inhibitor, Nonsteroidal Anti-inflammatory Drug Start: 11-24-2023 End: 01-03-2025 take 1 tablet by mouth once daily Aspirin (Adult Aspirin Regimen) 81 mg tablet,delayed release (DR/EC) Discontinued 81 mg PO DAILY November 24, 2023 12:00am January 03, 2025 10:20am Start: 04-18-2014 End: 11-07-2014 take 1 tablet by mouth once daily ASPIR-81 81 MG TBEC One tablet by mouth daily ASPIRIN [id number] Cristobal Olmos Start: 04-18-2014 take 1 tablet by mikal th once daily ASPIR-81 81 MG TBEC One tablet by mouth daily ASPIRIN [id number] Jani Mckeon MD Start: 04-18-2014 End: 11-07-2014 take 1 tablet by mouth once daily ASPIR-81 81 MG TBEC One tablet by mouth daily ASPIRIN [id number] Cristobal Olmos azithromycin 250 mg oral tablet (20 sources) Macrolide Antimicrobial Start: 07-28-2023 End: 09-28-2023 Azithromycin 250 mg tablet Discontinued 0 PO .COMPLEX 6 0 July 28, 2023 1:00am September 28, 2023 12:20pm For 250 mg dose pack: take 500 mg today (day 1), then 250 mg for 4 days (days 2-5) PO Start: 07-28-2023 End: 09-28-2023 Azithromycin Discontinued 0 PO .COMPLEX July 28, 2023 1:00am September 28, 2023 12:20pm For 250 mg dose pack: take 500 mg today (day 1), then 250 mg for 4 days (days 2-5) PO Start: 01-29-2016 End: 02-12-2016 ZITHROMAX Z-DEONNA 250 MG TABS take as directed on pack AZITHROMYCIN [id number] Kathia Carreno Start: 09-01-2015 End: 09-06-2015 take 2 tablets by mouth once, then take 1 tablet by mouth once daily, then take 2-5 tablets by mouth AZITHROMYCIN 250 MG TABS 2 PO on day 1 then 1 PO daily on days 2-5 AZITHROMYCIN [id number] Janet Valencia DO benzonatate 200 mg oral capsule (19 sources) Non-narcotic Antitussive Start: 08-19-2015 End: 08-24-2015 take 1 capsule by mouth three times daily as needed for cough BENZONATATE 200 MG CAPS one capsule by mouth as needed 3 times a day for cough BENZONATATE [id number] Janet Valencia DO Start: 05-30-2014 End: 06-09-2014 take 1 tablet by mouth three times daily as needed for cough BENZONATATE 200 MG CAPS One tablet by mouth three times daily as needed for cough BENZONATATE [id number] Janet Valencia DO Start: 05-20-2014 End: 05-25-2014 take 1 tablet by mouth three times daily as needed for cough BENZONATATE 200 MG CAPS One tablet by mouth three times daily as needed for cough BENZONATATE [id number] Janet Valencia DO Start: 05-14-2014 End: 12-26-2024 take 1 tablet by mouth three times daily as needed for cough BENZONATATE 100 MG CAPS One tablet by mouth three times daily as needed for cough BENZONATATE [id number] Janet Valencia DO Comment on above: Take 100 mg by mouth three times daily as needed. bisacodyl 5 mg delayed release oral tablet (12 sources) Stimulant Laxative Start: 06-01-2016 DULCOLAX 5 MG TBEC follow bowel prep sheet BISACODYL [id number] Johny Ponce MD Start: 06-01-2016 DULCOLAX 5 MG TBEC follow bowel prep sheet BISACODYL [id number] Johny Ponce MD Start: 03-27-2014 DULCOLAX 10 MG SUPP once a week BISACODYL [id number] Janet Valencia DO Start: 03-27-2014 End: 11-07-2014 DULCOLAX 10 MG SUPP as neede d BISACODYL [id number] Jani Mckeon MD Start: 03-27-2014 DULCOLAX 10 MG SUPP once a week BISACODYL [id number] Janet Valencia DO Start: 03-27-2014 End: 11-07-2014 DULCOLAX 10 MG SUPP as neede d BISACODYL [id number] Cristobal Olmos Budesonide-Formoterol (20 sources) Corticosteroid, beta2-Adrenergic Agonist Start: 01-23-2025 End: 03-06-2025 Budesonide-Formoterol (Symbicort) 160-4.5 mcg/actuation HFA aerosol inhaler Discontinued 2 NMA INHALATION Q1H January 23, 2025 12:00am March 06, 2025 11:58am Start: 01-23-2025 Budesonide-For moterol (Symbicort) 160-4.5 mcg/actuation HFA aerosol inhaler Active 2 NMA INHALATION Q12H January 23, 2025 12:00am Start: 08-16-2024 End: 08-16-2024 Budesonide-Formoterol (Symbi claudia) 160-4.5 mcg/actuation HFA aerosol inhaler Discontinued 1 NMA INHALATION ONCE August 16, 2024 1:00am August 16, 2024 11:26am Start: 11-21-2023 End: 08-16-2024 Budesonide-Formoterol (Symbi claudia) 160-4.5 mcg/actuation HFA aerosol inhaler Discontinued 2 NMA INHALATION TWICE A DAY 1 November 21, 2023 12:00am August 16, 2024 11:26am administer with spacer, rinse mouth after each use Start: 11-21-2023 End: 08-16-2024 Budesonide-Formoterol (Symbi claudia) 160-4.5 mcg/actuation HFA aerosol inhaler Discontinued 2 NMA INHALATION TWICE A DAY November 21, 2023 12:00am August 16, 2024 11:26am administer with spacer, rinse mouth after each use Start: 11-21-2023 take 1 puff(s) by [facility] twice daily Budesonide-Formoterol (Symbicort) 160-4. 5 mcg/actuation HFA aerosol inhaler Active 2 PUFF INHALATION TWICE A DAY November 21, 2023 12:00am administer with spacer, rinse mouth after each use 168 hr buprenorphine 0.005 mg/hr transdermal system (7 sources) Partial Opioid Agonist Start: 11-01-2017 End: 12-26-2024 BUTRANS 5 mcg/hour 0 11/01/2017 12/26/2024 Discontinued (Discontinued by another Health Care Provider) carBAMazepine 100 mg chewable tablet (20 sources) Mood Stabilizer Start: 08-03-2021 End: 09-16-2021 Carbamazepine 100 mg tablet,chewable Discontinued 0 .ROUTE .COMPLEX 60 2 August 03, 2021 1:00am September 16, 2021 2:22pm Take half a tablet BID x 1 week, then 1 tablet BID thereafter celecoxib 100 mg oral capsule (20 sources) Nonsteroidal Anti-inflammatory Drug Start: 04-09-2024 End: 09-19-2024 take 1 capsule by mouth twice daily as needed for pain Celecoxib 100 mg capsule Discontinued 100 mg PO TWICE A DAY as needed for pain April 09, 2024 12:00am September 19, 2024 2:10pm Start: 01-04-2024 End: 04-04-2024 take 1 capsule by mouth twice daily Celecoxib 100 mg capsule Discontinued 100 mg PO TWICE A DAY January 04, 2024 12:00am April 04, 2024 11:16am cetirizine hydrochloride 10 mg oral capsule (20 sources) Histamine-1 Receptor Antagonist Start: 12-20-2018 End: 02-18-2020 take 1 capsule by mouth at bedtime Cetirizine 10 mg capsule Discontinued 10 mg PO BEDTIME 30 3 April 09, 2019 9:17am February 18, 2020 10:08am Start: 03-28-2017 End: 12-26-2024 ALL DAY ALLERGY 10 mg tablet 03/28/2017 12/26/2024 Discontinued (Discontinued by another Health Care Provider) Start: 05-27-2016 End: 05-15-2018 take 1 capsule by mouth once daily Cetirizine 10 MG capsule Discontinued 10 mg PO DAILY June 17, 2016 12:00am May 15, 2018 2:11pm Start: 05-27-2016 take 1 capsule by mo uth once daily ZYRTEC ALLERGY 10 MG CAPS take one cap by mouth once daily CETIRIZINE HCL [id number] Cathie Sher NP cholecalciferol 1.25 mg oral capsule (20 sources) Vitamin D Start: 01-14-2025 End: 01-23-2025 take 1 capsule by mouth every other week Cholecalciferol (Vitamin D3) 1,250 mcg (50,000 unit) capsule Discontinued 1250 ug PO EVERY WEEK January 14, 2025 12:00am January 23, 2025 9:52am take every other week Start: 10-08-2020 End: 01-03-2025 Cholecalciferol (Vitamin D3) 1,250 mcg (50,000 unit) capsule Discontinued 1250 ug PO .QOTU April 04, 2024 11:16am January 03, 2025 10:21am Start: 01-29-2019 End: 10-08-2020 take 1 capsule by mouth every month Cholecalciferol (Vitamin D3) 5,000 unit capsule Discontinued 5000 U PO MONTHLY January 29, 2019 12:00am October 08, 2020 12:34pm Start: 11-23-2018 take 1 capsule by mo ut every week cholecalciferol, Vitamin D3, (VITAMIN D3) 50,000 unit cap capsule Take 1 capsule by mouth once each week. 12 capsule 2 11/23/2018 Active Comment on above: Take 1 capsule by mo [facility] once each week. ciprofloxacin 500 mg oral tablet (6 sources) Quinolone Antimicrobial Start: 05-01-20 14 End: 05-11-20 14 take 1 tablet by mouth twice daily CIPROFLOXACIN HCL 500 MG TABS One tablet by mouth twice daily CIPROFLOXACIN HCL [id number] Janet Valencia DO Start: 03-27-2014 End: 03-30-2014 take 1 tablet by mouth twice daily CIPRO 250 MG TABS Take one (1) by mouth twice a day CIPROFLOXACIN HCL [id number] Janet Valencia DO clotrimazole 10 mg/ml vaginal cream (9 sources) Azole Antifungal Start: 06-03-2014 End: 06-10-2014 CLOTRIMAZOLE-7 1 % CREA insert one applicatorful daily at night for 7 days CLOTRIMAZOLE [id number] Janet Valnecia DO Start: 06-03-2014 End: 06-10-2014 CLOTRIMAZOLE-7 1 % CREA inse rt one applicatorful daily at night for 7 days CLOTRIMAZOLE [id number] Janet Valencia DO Start: 03-15-2013 End: 09-17-2013 CLOTRIMAZOLE 1 % CREA Apply 1 application to affected area twice daily CLOTRIMAZOLE [id number] Domenica Hedrick MD codeine phosphate 2 mg/ml / guaiFENesin 20 mg/ml oral solution (9 sources) Opioid Agonist Start: 06-19-2014 End: 11-07-2014 GUAIFENESIN AC SYRP GUAIFENESIN-CODEINE SYRP [id number] Cristobal Olmos Start: 06-19-2014 End: 11-07-2014 GUAIFENESIN AC SYRP GUAIFENESIN-CODEINE SYRP [id number] Cristobal Olmos Start: 06-19-2014 GUAIFENESIN AC SYRP GUAIFENESIN-CODEINE SYRP [id number] Cristobal Olmos Start: 06-14-2014 End: 06-19-2014 GUAIFENESIN-CODEINE 100-10 M G/5ML SYRP 10 mL every four hours as needed for cough GUAIFENESIN-CODEINE [id number] Janet Valencia DO cyclobenzaprine hydrochloride 5 mg oral tablet (13 sources) Muscle Relaxant Start: 03-28-2017 End: 12-26-2024 cyclobenzaprine (FLEXERIL) 5 mg tablet 03/28/2017 12/26/2024 Discontinued (Discontinued by another Health Care Provider) Start: 05-16-2015 End: 05-26-2015 take 1 tablet by mouth once daily at bedtime CYCLOBENZAPRINE HCL 10 MG TABS One tablet by mouth daily at bedtime CYCLOBENZAPRINE HCL [id number] June Weiner TIP PRINTER dextromethorphan hydrobromide 20 mg / guaiFENesin 400 mg oral tablet (20 sources) Uncompetitive B-joimig-W-aspartate Receptor Antagonist, Sigma-1 Agonist Start: 05-15-2018 End: 08-02-2018 Dextromethorphan-Guaifenesin 20-400 mg tablet Discontinued 1 {tbl} PO Q4H as needed for cough 30 May 22, 2018 1:54pm August 02, 2018 10:33am Start: 05-15-2018 End: 08-02-2018 take 1 tablet by mouth every four hours Dextromethorphan-Guaifenesin Discontinue d 1 TABLET PO Q4H May 22, 2018 1:54pm August 02, 2018 10:33am diclofenac sodium 0.01 mg/mg topical gel (20 sources) Nonsteroidal Anti-inflammatory Drug Start: 01-14-2025 End: 03-06-2025 apply 2 g topically once Diclofenac Sodium 1 % gel Discontinued 2 g TOPICAL ONCE January 14, 2025 12:00am March 06, 2025 11:59am apply to single elbow, wrist or hand; for hand includes palm/fingers/back of hand Start: 04-23-2022 apply 4 g topically four times daily diclofenac (VOLTAREN) 1 % topical gel Apply 4 g to affected area four times daily. 100 g 5 04/23/2022 Active Start: 02-09-2017 End: 12-26-2024 diclofenac sodium (VOLTAREN) 1 % topical gel 02/09/2017 12/26/2024 Discontinued (Duplicate Entry) Start: 04-16-2016 End: 04-26-2016 take 1 tablet by mouth three times daily DICLOFENAC POTASSIUM 50 MG TABS One tablet by mouth three times daily DICLOFENAC POTASSIUM [id number] Cathie Sher NP Comment on above: Apply 4 g to affecte d area four times daily. dicyclomine hydrochloride 10 mg oral capsule (20 sources) Anticholinergic Start: 019 End: 025 take 2 capsules by mouth three times daily before mealtime Dicyclomine 10 MG capsule Discontinued 20 mg PO THREE TIMES DAILY BEFORE MEALS December 15, 2018 12:00am October 09, 2020 10:45am Start: 12-15-2018 End: 10-09-2020 take 20 mg by mouth three times daily before mealtime Dicyclomine Discontinued 20 MG PO THREE TIMES DAILY BEFORE MEALS December 15, 2018 12:00am October 09, 2020 10:45am Comment on above: 20 mg. doxycycline hyclate 100 mg oral capsule (3 sources) Tetracycline-class Drug Start: 4 End: 4 take 1 tablet by mouth twice daily DOXYCYCLINE HYCLATE 100 MG CAPS One tablet by mouth twice daily for 10 days DOXYCYCLINE HYCLATE [id number] Janet Gail Richard DO [id number] 0.3 ml EPINEPHrine 1 mg/ml auto-injector (20 sources) alpha-Adrenergic Agonist, beta-Adrenergic Agonist, Catecholamine Start: 4 End: 4 Epinephrine 0.3 mg/0.3 mL auto-injector Discontinued 0.3 mg IM ONCE September 27, 2023 1:00am August 16, 2024 11:27am as a single dose; may repeat once Start: 07-30-2015 EPIPEN 2-DEONNA 0 .3 MG/0.3ML SOAJ Inject as needed EPINEPHRINE [id number] Janet Valencia DO Start: 07-30-2015 EPIPEN 2-DEONNA 0 .3 MG/0.3ML SOAJ Inject as needed EPINEPHRINE [id number] Janet Valencia DO Start: 05-30-2014 End: 08-30-2014 AUVI-Q 0.3 MG/0.3ML SOAJ Use as directed for bee stings EPINEPHRINE [id number] Janet Valencia DO Start: 05-30-2014 End: 08-30-2014 AUVI-Q 0.3 MG/0.3ML SOAJ Use as directed for bee stings EPINEPHRINE [id number] Janet Valencia DO Start: 03-15-2013 End: 09-17-2013 EPIPEN 0.3 MG/0.3ML LUIS MIGUEL Inj ect for bee stings EPINEPHRINE [id number] Domenica Hedrick MD Start: 03-15-2013 EPIPEN 0.3 MG/ 0.3ML LUIS MIGUEL Inject for bee stings EPINEPHRINE [id number] Fiordaliza Shah Dayna Start: 03-15-2013 End: 09-17-2013 EPIPEN 0.3 MG/0.3ML LUIS MIGUEL Inj ect for bee stings EPINEPHRINE [id number] Domenica Hedrick MD Start: 10-02-2012 End: 12-26-2024 EPINEPHrine (EPIPEN) 0.3 mg/ 0.3 mL (1:1,000) atIn Inject 0.3 mg intramuscularly as needed. for bee stings. 10/02/2012 12/26/2024 Discontinued (Discontinued by another Health Care Provider) Comment on above: Inject 0.3 mg intram uscularly as needed. for bee stings. estradiol 2 mg oral tablet (20 sources) Estrogen Start: 4 End: take 1 mg by mouth once daily Estradiol 2 MG tablet Discontinued 1 mg PO DAILY September 09, 2013 1:00am October 09, 2020 10:45am Start: 09-09-2013 End: 10-09-2020 take 1 mg by mouth once daily Estradiol Discontinued 1 MG PO DAILY September 09, 2013 1:00am October 09, 2020 10:45am Comment on above: Take 2 mg by mouth o nce daily. Famotidine (7 sources) Histamine-2 Receptor Antagonist End: 12-26-2024 famotidine (PEPCID ORAL) Take by mouth. 12/26/2024 Discontinued (Discontinued by another Health Care Provider) famotidine (PEPC ID ORAL) Take by mouth. Active famotidine (PEPC ID ORAL) Take by mouth. 0 Active Comment on above: Take by mouth. 72 hr fentaNYL 0.025 mg/hr transdermal system (20 sources) Opioid Agonist Start: 04-16-2016 FENTANYL 25 MCG/HR PT72 Apply 1 patch to skin every 72 hours FENTANYL [id number] Cathie Sher NP Start: 04-18-2014 FENTANYL 12 MC G/HR PT72 apply every 3 days FENTANYL [id number] Jani Mckeon MD Start: 03-15-2013 End: 04-16-2016 FENTANYL 75 MCG/HR PT72 appl y 1 patch to skin every 72 hours FENTANYL [id number] Cathie Sher NP End: 12-25-2014 FENTANYL 25 MCG/HR PT72 appl y q 3 days FENTANYL [id number] Cristobal Olmos FENTANYL 25 MCG/HR PT72 (FENTANYL) (6 sources) Start: 03-15-2013 End: 04-18-2014 FENTANYL 25 MCG/HR PT72 (FENTANYL) Apply 1 patch as directed every 72 hours FENTANYL 25 MCG/HR PT72 (FENTANYL) Jani Mckeon MD Start: 03-15-2013 FENTANYL 25 MC G/HR PT72 (FENTANYL) Apply 1 patch as directed every 72 hours Janet Valencia DO ferrous sulfate 325 mg delayed release oral tablet (7 sources) Start: 01-23-2025 End: 03-06-2025 take 1 tablet by mouth once daily Ferrous Sulfate 325 mg (65 mg iron) tablet,delayed release (DR/EC) Discontinued 325 mg PO daily January 23, 2025 12:00am March 06, 2025 12:00pm fexofenadine (7 sources) Histamine-1 Receptor Antagonist End: 12-26-2024 fexofenadine HCl (MUCINEX ALLERGY ORAL) Take by mouth. 12/26/2024 Discontinued (Discontinued by another Health Care Provider) fexofenadine HCl (MUCINEX ALLERGY ORAL) Take by mouth. Active fexofenadine HCl (MUCINEX ALLERGY ORAL) Take by mouth. 0 Active Comment on above: Take by mouth. FLUoxetine 40 mg oral capsule (12 sources) Serotonin Reuptake Inhibitor Start: 04-18-2014 End: 02-05-2015 take 1 tablet by mouth once daily PROZAC 40 MG CAPS One tablet by mouth daily FLUOXETINE HCL [id number] Janet Valencia DO End: 04-18-2014 PROZAC 20 MG CAPS FLUOXETINE HCL [id number] Domenica Hedrick MD End: 04-18-2014 PROZAC 20 MG CAPS FLUOXETINE HCL [id number] Domenica Hedrick MD flurazepam hydrochloride 15 mg oral capsule (20 sources) Benzodiazepine Start: 01-13-2017 End: 12-26-2024 take 1 capsule by mouth at bedtime Flurazepam 15 MG capsule Discontinued 15 mg PO AT BEDTIME January 13, 2017 12:00am August 13, 2017 9:22am Comment on above: Take 15 mg by mouth at bedtime as needed. 14 actuat fluticasone furoate 0.1 mg/actuat / vilanterol 0.025 mg/actuat dry powder inhaler (9 sources) Corticosteroid, beta2-Adrenergic Agonist Start: 11-07-2014 End: 11-22-2014 take 1 puff(s) by inhalation once daily BREO ELLIPTA 100-25 MCG/INH AEPB One puff INH daily FLUTICASONE FUROATE-VILANTERO L [id number] Janet Valencia DO Start: 11-07-2014 End: 11-22-2014 take 1 puff(s) by inhalation once daily BREO ELLIPTA 100-25 MCG/INH AEPB One puff INH daily FLUTICASONE FUROATE-VILANTEROL [id number] Janet Valencia DO Start: 11-07-2014 take 1 puff(s) by in halation once daily BREO ELLIPTA 100-25 MCG/INH AEPB One puff INH daily FLUTICASONE FUROATE-VILANTEROL [id number] Cristobal Olmos Start: 10-28-2014 End: 11-04-2014 BREO ELLIPTA 100-25 MCG/INH AEPB One inhalation daily for Asthma Exacerbation FLUTICASONE FUROATE-VILANTEROL [id number] Janet Valencia DO Start: 10-28-2014 End: 11-04-2014 BREO ELLIPTA 100-25 MCG/INH AEPB One inhalation daily for Asthma Exacerbation FLUTICASONE FUROATE-VILANTEROL [id number] Janet Valencia DO 120 actuat formoterol fumarate 0.005 mg/actuat / mometasone furoate 0.2 mg/actuat metered dose inhaler (9 sources) Corticosteroid, beta2-Adrenergic Agonist Start: 11-13-2014 End: 11-14-2015 take 1 puff(s) by inhalation once daily DULERA 200-5 MCG/ACT AERO 1 puff inh daily MOMETASONE FURO-FORMOTEROL FUM [id number] Angélica Marcelino [employer] EXAMINER Start: 11-13-2014 End: 11-14-2015 take 1 puff(s) by inhalation once daily DULERA 200-5 MCG/ACT AERO 1 puff inh daily MOMETASONE FURO-FORMOTEROL FUM [id number] Janet Valencia DO Start: 11-13-2014 take 1 puff(s) by in halation once daily DULERA 200-5 MCG/ACT AERO 1 puff inh daily MOMETASONE FURO-FORMOTEROL FUM [id number] Angélica Marcelino [employer] EXAMINER Start: 11-13-2014 take 1 puff(s) by in halation once daily DULERA 200-5 MCG/ACT AERO 1 puff inh daily MOMETASONE FURO-FORMOTEROL FUM [id number] Cristobal Olmos gabapentin 300 mg oral capsule (20 sources) Anti-epileptic Agent Start: 03-23-2021 End: 06-03-2021 Gabapentin 300 mg capsule Discontinued 0 .ROUTE .COMPLEX 90 2 March 23, 2021 12:00am June 03, 2021 10:29am Take 1 tablet PO QHS on day 1, then 1 tablet PO BID on day 2, then 1 tablet TID thereafter hydroCHLOROthiazide 25 mg oral tablet (20 sources) Thiazide Diuretic Start: 09-09-2013 End: 10-08-2020 Hydrochlorothiazide 25 MG tablet Discontinued 12.5 mg PO DAILY September 09, 2013 1:00am October 08, 2020 12:37pm Start: 09-09-2013 End: 10-08-2020 take 12.5 mg by mouth once daily Hydrochlorothiazide Discontinued 12.5 MG PO DAILY September 09, 2013 1:00am October 08, 2020 12:37pm Start: 03-15-2013 take 1 tablet by mikal once daily HYDROCHLOROTHIAZIDE 12.5 MG CAPS One tablet by mouth daily HYDROCHLOROTHIAZIDE [id number] Janet Valencia DO End: 12-26-2024 take 2 tablets by mouth once daily hydroCHLOROthiazide (HYDRODIURIL, ESIDRIX) 12.5 mg tablet Take 25 mg by mouth once daily. 12/26/2024 Discontinued (Discontinued by another Health Care Provider) Comment on above: Take 25 mg by mouth once daily. ibuprofen 400 mg oral tablet (20 sources) Nonsteroidal Anti-inflammatory Drug Start: 3 End: take 1 tablet by mouth every six hours as needed for pain Ibuprofen 400 mg tablet Discontinued 400 mg PO EVERY 6 HOURS as needed for pain 300 0 March 22, 2023 12:00am August 16, 2024 11:28am Start: 03-15-2013 End: 09-17-2013 take 2 tablets by mouth every six hours as needed for pain IBUPROFEN 200 MG TABS Take 2 tablets by mouth every 6 hours as needed for pain IBUPROFEN [id number] Domenica Hedrick MD ipratropium bromide 0.021 mg/actuat metered dose nasal spray (20 sources) Anticholinergic Start: 11-03-2017 End: 12-26-2024 Ipratropium [place] (ATROVENT) 0.03 % nasal spray 11/03/2017 12/26/2024 Discontinued (Discontinued by another Health Care Provider) Start: 11-03-2017 End: 09-28-2023 Ipratropium [place] 0.03 % s pray,non-aerosol Discontinued 2 NMA INTRANASAL 2 to 3 times per day as needed for allergy symptoms 25 02February 18, 2020 10:49am September 28, 2023 12:24pm administer into each nostril; wait 30 seconds between sprays Start: 11-03-2017 End: 09-28-2023 Ipratropium [place] Disconti nued 2 SPRAY INTRANASAL 2 to 3 times per day February 18, 2020 10:49am September 28, 2023 12:24pm administer into each nostril; wait 30 seconds between sprays ketoconazole 20 mg/ml topical cream (14 sources) Azole Antifungal Start: 06-10-2017 End: 12-26-2024 ketoconazole (NIZORAL) 2 % cream Apply 1 application to affected area once daily. 60 g 3 07/04/2017 12/26/2024 Discontinued (Discontinued by another Health Care Provider) Comment on above: Apply 1 application to affected area once daily. lactulose 667 mg/ml oral solution (17 sources) Osmotic Laxative Start: 01-23-2025 End: 03-06-2025 take 1 mL by mouth twice daily Lactulose (Enulose) 10 gram/15 mL solution Discontinued 30 mL PO TWICE A DAY January 23, 2025 12:00am March 06, 2025 12:00pm Start: 08-16-2024 End: 08-16-2024 take 20 g by mouth twice daily Lactulose 20 gram/30 mL solution Discontinued 20 g PO TWICE A DAY August 16, 2024 1:00am August 16, 2024 11:29am levoFLOXacin 750 mg oral tablet (3 sources) Quinolone Antimicrobial Start: 06-07-2014 End: 06-14-2014 take 1 tablet by mouth once daily LEVAQUIN 750 MG TABS one tablet PO daily for 7 days for pneumonia LEVOFLOXACIN [id number] Janet Valencia DO linaclotide 0.29 mg oral capsule (20 sources) Guanylate Cyclase-C Agonist Start: 09-27-2023 End: 08-16-2024 take 1 capsule by mouth once daily as needed Linaclotide (Linzess) 290 mcg capsule Discontinued 290 ug PO DAILY as needed August 16, 2024 11:30am August 16, 2024 11:58am LORazepam 0.5 mg oral tablet (15 sources) Benzodiazepine Start: 05-16-2015 End: 11-14-2015 LORAZEPAM 0.5 MG TABS 1 tab twice daily as needed for anxiety LORAZEPAM [id number] Angélica Marcelino CNP Start: 12-25-2014 End: 01-30-2015 take 1 tablet by mouth once daily as needed for anxiety LORAZEPAM 1 MG TABS One tablet by mouth daily as needed for anxiety LORAZEPAM [id number] Jnaet Valencia DO lubiprostone 0.024 mg oral capsule (19 sources) Chloride Channel Activator Start: 08-16-2024 End: 03-27-2025 take 1 capsule by mouth twice daily Lubiprostone (Amitiza) 24 mcg capsule Discontinued 24 ug PO TWICE A DAY 180 1 January 11, 2025 1:48pm March 27, 2025 11:12am constipation meloxicam 7.5 mg oral tablet (6 sources) Nonsteroidal Anti-inflammatory Drug Start: 01-30-2015 End: 02-05-2015 take 1 tablet by mouth once daily MOBIC 7.5 MG TABS One tablet by mouth daily MELOXICAM [id number] Zainab Romano LPN methocarbamol 500 mg oral tablet (20 sources) Muscle Relaxant Start: 12-22-2021 End: 12-26-2024 take 1 tablet by mouth every eight hours as needed methocarbamol (ROBAXIN) 500 mg tablet Take 1 tablet by mouth three times daily as needed (muscle cramping). 90 tablet 12/22/2021 12/26/2024 Discontinued (Discontinued by another Health Care Provider) Comment on above: Take 1 tablet by mikal three times daily as needed (muscle cramping). methylPREDNISolone (7 sources) Corticosteroid Start: 10-07-2021 End: 12-26-2024 methylPREDNISolone (MEDROL, DEONNA,) 4 mg Dose-Pack As Instructed per package 1 Package 10/07/2021 12/26/2024 Discontinued (Discontinued by another Health Care Provider) Start: 10-07-2021 methylPREDNISo lone (MEDROL, DEONNA,) 4 mg Dose-Pack As Instructed per package 1 Package 10/07/2021 Active Start: 10-07-2021 methylPREDNISo lone (MEDROL, DEONNA,) 4 mg Dose-Pack As Instructed per package 1 Package 0 10/07/2021 Active Comment on above: As Instructed per jayashree ckage 24 hr mirabegron 50 mg extended release oral tablet (20 sources) beta3-Adrenergic Agonist Start: End: take 1 tablet by mouth once daily Mirabegron (Myrbetriq) 50 mg tablet extended release 24 hr Discontinued 100 mg PO DAILY October 08, 2020 1:00am January 21, 2021 9:39am montelukast 10 mg oral tablet (6 sources) Leukotriene Receptor Antagonist End: 4 take 1 tablet by mouth once daily SINGULAIR 10 MG TABS One tablet by mouth daily MONTELUKAST SODIUM [id number] Jani Mckeon MD Multivitamin 1 EACH tablet (10 sources) Start: 8 End: 1 Multivitamin 1 EACH tablet Discontinued 1 NMA PO DAILY July 18, 2018 1:00am October 09, 2020 10:46am Multivitamin preparation (20 sources) Start: 8 End: 1 Multivitamin Discontinued 1 EACH PO DAILY July 18, 2018 2:39pm October 09, 2020 10:46am Start: 07-18-2018 End: 10-09-2020 Multivitamin Discontinued 1 EACH PO DAILY July 18, 2018 12:00am October 09, 2020 9:46am Start: 07-18-2018 End: 10-09-2020 Multivitamin Discontinued 1 EACH PO DAILY July 18, 2018 1:00am October 09, 2020 10:46am Multivitamin tablet (10 sources) Start: 09-20-2024 End: 10-25-2024 Multivitamin tablet Discontinued 1 {tbl} PO EVERY MORNING September 20, 2024 1:00am October 25, 2024 2:32pm nitrofurantoin, macrocrystals 50 mg oral capsule (4 sources) Nitrofuran Antibacterial End: 12-26-2024 nitrofurantoin macrocrystal (MACRODANTIN) 50 mg capsule 100 mg by ORAL/FEEDING TUBE route twice daily. 12/26/2024 Discontinued (Course of therapy completed) nitrofurantoin m acrocrystal (MACRODANTIN) 50 mg capsule 100 mg by ORAL/FEEDING TUBE route twice daily. 0 Active Comment on above: 100 mg by ORAL/FEEDI NG TUBE route twice daily. nortriptyline 25 mg oral capsule (20 sources) Tricyclic Antidepressant Start: 06-03-20 End: 08-03-20 take 1 capsule by mouth at bedtime Nortriptyline 25 mg capsule Discontinued 25 mg PO AT BEDTIME 30 June 03, 2021 12:00am August 03, 2021 11:26am nystatin [id number] unt/ml topical cream (9 sources) Polyene Antifungal Start: 03-27-20 14 End: 11-08-19 NYSTATIN [id number] UNIT/GM CREA three times a day as needed NYSTATIN [id number] Cristobal Olmos Start: 03-27-2014 End: 11-07-2014 NYSTATIN 355329 UNIT/GM CREA three times a day NYSTATIN [id number] Janet Valencia DO OLANZapine 10 mg oral tablet (20 sources) Atypical Antipsychotic Start: 10-08-2020 End: 03-06-2025 take 1 tablet by mouth at bedtime Olanzapine 10 mg tablet Discontinued 10 mg PO AT BEDTIME October 08, 2020 1:00am March 06, 2025 12:01pm End: 12-26-2024 olanzapine (ZYPREXA ORAL) Ta ke by mouth. 12/26/2024 Discontinued (Discontinued by another Health Care Provider) olanzapine (ZYPR EXA ORAL) Take by mouth. Active olanzapine (ZYPR EXA ORAL) Take by mouth. 0 Active Comment on above: Take by mouth. omeprazole 40 mg delayed release oral capsule (20 sources) Proton Pump Inhibitor Start: 3 End: 4 take 1 capsule by mouth once daily Omeprazole 40 mg capsule,delayed release(DR/EC) Discontinued 40 mg PO DAILY July 07, 2023 1:00am August 16, 2024 8:36am Start: 11-07-2014 End: 10-09-2020 take 1 capsule by mouth once daily Omeprazole 40 MG capsule Discontinued 40 mg PO DAILY June 17, 2016 12:00am October 09, 2020 10:46am Start: 03-15-2013 End: 09-17-2013 take 1 tablet by mouth twice daily OMEPRAZOLE 20 MG CPDR One tablet by mouth twice daily OMEPRAZOLE [id number] Domenica Hedrick MD End: 12-26-2024 take 1 capsule by mouth once daily omeprazole (PRILOSEC) 20 mg capsule Take 20 mg by mouth once daily. 12/26/2024 Discontinued (Discontinued by another Health Care Provider) Comment on above: Take 20 mg by mouth once daily. polyethylene glycol 3350 [id number] mg / potassium chloride 2970 mg / sodium bicarbonate 6740 mg / sodium chloride 5860 mg / sodium sulfate 35402 mg powder for oral solution (8 sources) Osmotic Laxative Start: 01-03-2025 End: 01-28-2025 Peg 3350-Electrolytes (Golytely) 236-22.74-6.74 -5.86 gram recon soln Discontinued 240 mL PO Q10M 4000 0 January 03, 2025 12:00am January 28, 2025 10:06pm take as directed for split dose bowel prep POLYETHYLENE GLYCOL 3350 (1 source) Start: 06-01-2016 MIRALAX POWD follow bowel prep sheet POLYETHYLENE GLYCOL 3350 [id number] Johny Ponce MD Potassium (5 sources) End: 12-26-2024 potassium (POTASSIMIN ORAL) Take by mouth. 12/26/2024 Discontinued (Duplicate Entry) potassium (POTAS RK ORAL) Take by mouth. Active potassium (POTAS RK ORAL) Take by mouth. 0 Active Comment on above: Take by mouth. pravastatin sodium 40 mg oral tablet (15 sources) HMG-CoA Reductase Inhibitor Start: 03-15-2013 take 1 tablet by mouth once daily PRAVACHOL 20 MG TABS One tablet by mouth daily PRAVASTATIN SODIUM [id number] Fiordaliza Mcintosh Start: 03-15-2013 take 1 tablet by mikal at bedtime PRAVACHOL 40 MG TABS One tablet by mouth at bedtime. PRAVASTATIN SODIUM [id number] Janet Valencia DO Start: 03-15-2013 End: 11-14-2015 PRAVACHOL 40 MG TABS ON HOLD PRAVASTATIN SODIUM [id number] Janet Valencia DO prazosin 1 mg oral capsule (20 sources) alpha-Adrenergic Kim Start: 09-28-2023 End: 08-16-2024 take 1 capsule by mouth at bedtime Prazosin 1 mg capsule Discontinued 1 mg PO AT BEDTIME September 28, 2023 1:00am August 16, 2024 8:34am Start: 12-26-2015 End: 04-16-2016 PRAZOSIN HCL 1 MG CAPS take 1-2 capsules at bedtime for nightmares PRAZOSIN HCL [id number] Cathie Sher [employer] predniSONE 10 mg oral tablet (20 sources) Start: 07-28-2023 End: 09-28-2023 take 4 tablets by mouth once daily Prednisone 10 mg tablet Discontinued 10 mg PO DAILY 20 0 July 28, 2023 1:00am September 28, 2023 12:23pm Take 4 tabs daily for 5 days Start: 11-07-2014 End: 11-12-2014 take 2 tablets by mouth once daily PREDNISONE 20 MG TABS Take 2 tablets by mouth daily for 5 days. PREDNISONE [id number] Cristobal Olmos QUEtiapine 50 mg oral tablet (6 sources) Atypical Antipsychotic Start: 11-22-2014 End: 11-25-2014 take 1 tablet by mouth once daily QUETIAPINE FUMARATE 50 MG TABS One tablet by mouth daily at night QUETIAPINE FUMARATE [id number] Janet Valencia DO RESPIRATORY THERAPY SUPPLIES (1 source) NEBULIZER LUIS MIGUEL RESPIRATORY THERAPY SUPPLIES [id number] Cristobal Olmos RESPIRATORY THERAPY SUPPLIES (2 sources) NEBULIZER LUIS MIGUEL RESPIRATORY THERAPY SUPPLIES [id number] Cristobal Olmos risperiDONE 1 mg oral tablet (3 sources) Atypical Antipsychotic Start: 11-25-2014 End: 12-10-2014 take 1 tablet by mouth once daily RISPERIDONE 1 MG TABS One tablet by mouth daily for moods RISPERIDONE [id number] Janet Valencia DO sulfamethoxazole 800 mg / trimethoprim 160 mg oral tablet (13 sources) Dihydrofolate Reductase Inhibitor Antibacterial, Sulfonamide Antimicrobial Start: 04-24-2024 End: 08-16-2024 Sulfamethoxazole- Trimethoprim (Bactrim Ds) 800-160 mg tablet Discontinued 1 {tbl} PO TWICE A DAY 14 7 0 April 24, 2024 12:00am August 16, 2024 11:32am Start: 05-20-2014 End: 05-30-2014 take 1 tablet by mouth twice daily SULFAMETHOXAZOLE-TRIMETHOPRIM 800-160 MG TABS One tablet by mouth twice daily SULFAMETHOXAZOLE-TRIMETHOPRIM [id number] Janet Valencia DO triamcinolone acetonide 1 mg/ml topical cream (7 sources) Corticosteroid Start: 07-08-2017 End: 12-26-2024 triamcinolone acetonide (KENALOG) 0.1 % cream Apply 1 application to affected area twice daily. 75 g 5 07/08/2017 12/26/2024 Discontinued (Discontinued by another Health Care Provider) Comment on above: Apply 1 application to affected area twice daily. 24 hr trospium chloride 60 mg extended release oral capsule (20 sources) Cholinergic Muscarinic Antagonist Start: 06-17-2016 End: 12-26-2024 take 1 capsule by mouth once daily Trospium 60 MG capsule,extended release 24hr Discontinued 60 mg PO DAILY June 17, 2016 12:00am August 13, 2017 9:22am Comment on above: Take 1 capsule by [facility] once daily. Take in the morning with a full glass of water. divalproex sodium 125 mg delayed release oral capsule (6 sources) Mood Stabilizer, Anti-epileptic Agent Start: 12-06-2014 End: 12-13-2014 take 1 tablet by mouth once daily DIVALPROEX SODIUM 125 MG CSDR One tablet by mouth daily at night for moods DIVALPROEX SODIUM [id number] Janet Valencia DO 24 hr venlafaxine 75 mg extended release oral capsule (20 sources) Serotonin and Norepinephrine Reuptake Inhibitor Start: 09-16-2021 End: 09-23-2021 take 1 capsule by mouth once daily Venlafaxine 75 mg capsule,extended release 24hr Discontinued 75 mg PO DAILY 7 7 0 September 16, 2021 1:00am September 22, 2021 1:00am September 23, 2021 1:01am after completing 1 week course, discontinue this medication Start: 01-21-2021 End: 09-16-2021 take 1 capsule by mouth once daily Venlafaxine 150 mg capsule,extended release 24hr Discontinued 150 mg PO DAILY 30 1 September 07, 2021 2:23pm September 16, 2021 2:21pm Start: 11-20-2020 End: 01-21-2021 take 1 capsule by mouth once daily Venlafaxine 75 mg capsule,extended release 24hr Discontinued 75 mg PO DAILY 30 0 December 22, 2020 8:22am January 21, 2021 10:05am vitamin b12 1 mg/ml injectable solution (2 sources) Vitamin B12 Start: 11-20-2020 End: 11-20-2020 inject 1000 ug by intramuscular injection once cyanocobalamin (vitamin B-12) 1,000 mcg/mL injection solution Discontinued 1000 MCG IM ONCE 1 November 20, 2020 8:36am November 20, 2020 11:13am zolpidem tartrate 5 mg oral tablet (6 sources) gamma-Aminobu tyric Acid-ergic Agonist Start: 05-27-2016 End: 06-26-2016 take 1 tablet by mouth once daily AMBIEN 5 MG TABS One tablet by mouth daily every night ZOLPIDEM TARTRATE [id number] Dalia Lamas DC Problems Active Problems Problem Classification Problem Date Documented Da te Episodic/Chronic Acquired foot deformities (8 sources) Acquired hallux malleus; 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: [Other hammer toe(s) (acquired), unspecified foot] Onset: 9 01-09-2009 Chronic Acute and unspecified renal failure (6 sources) Renal failure syndrome; 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: [Disorder of kidney and ureter, unspecified] Onset: 4 Resolved: 5 05-29-2014 Chronic Anxiety disorders (11 sources) Anxiety disorder; 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: [Obsessive-compulsive disorder] Onset: 3 12-25-2014 Chronic Aortic; peripheral; and visceral artery aneurysms (3 sources) Thoracic aortic aneurysm, without rupture; 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: [Thoracic aortic aneurysm, without rupture] Onset: 4 04-17-2014 Chronic Asthma (20 sources) Asthma; 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: [Exacerbation of asthma] Onset: 4 Resolved: 5 03-27-2014 Chronic Cardiac dysrhythmias (3 sources) Atrial paroxysmal tachycardia; 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: [Supraventricular tachycardia] Onset: 4 04-17-2014 Chronic Coronary atherosclerosis and other heart disease (14 sources) Atypical angina; 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: [Anginal equivalent] 11-24-2023 Chronic Deficiency and other anemia (20 sources) Anemia; 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: [Anemia, unspecified] 10-30-2024 Episodic Deficiency and other anemia (19 sources) Iron-refractory iron deficiency anemia; 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: [Other iron deficiency anemias] 01-23-2025 Episodic Comment on above: Has been on Oral Iro n for about 1-2 years. Deficiency and other anemia (20 sources) Iron deficiency anemia; 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: [Iron deficiency anemia, unspecified] 01-23-2025 Episodic Comment on above: Iron profile is norm al today, Hgb is 11.3 after Iron infusion. Deficiency and other anemia (2 sources) Iron deficiency anemia, unspecified; 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: [Iron deficiency anemia, unspecified] Onset: 5 Episodic Deficiency and other anemia (2 sources) Other iron deficiency anemias; 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: [Other iron deficiency anemias] Onset: 5 Episodic Deficiency and other anemia (12 sources) Deficiency and other anemia; 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: [Iron deficiency anemia refractory to iron therapy] Diabetes mellitus without complication (20 sources) High hemoglobin A1c level; 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: [Other abnormal glucose] 11-20-2020 Episodic Diseases of mouth; excluding dental (4 sources) Xerostomia; 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: [Dry mouth, unspecified] Onset: Episodic Disorders of lipid metabolism (11 sources) Hyperlipidemia; 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: [Hyperlipidemia, unspecified] Onset: 4 03-27-2014 Chronic Esophageal disorders (11 sources) Gastroesophageal reflux disease; 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: [Gastro-esophageal reflux disease without esophagitis] Onset: 4 03-27-2014 Chronic Essential hypertension (20 sources) Hypertensive disorder; 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: [Benign essential hypertension] Onset: 4 03-27-2014 Chronic Fracture of lower limb (20 sources) Fracture of ankle; 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: [Other fracture of left lower leg, initial encounter for closed fracture] 03-22-2023 Episodic Genitourinary symptoms and ill-defined conditions (20 sources) Urge incontinence of urine; 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: [Urge incontinence] Chronic Comment on above: ON MED Genitourinary symptoms and ill-defined conditions (20 sources) Dysuria; 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: [Increased frequency of urination] Onset: 4 Resolved: 4 03-27-2014 Episodic Headache; including migraine (10 sources) Tension-type headache; 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: [Tension-type headache, unspecified, not intractable] 10-06-2024 Chronic Headache; including migraine (10 sources) Headache; 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: [Headache] 10-07-2024 Episodic Headache; including migraine (1 source) Headache; including migraine; 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: [Headache, unspecified] Onset: Hepatitis (17 sources) Acute hepatitis C; 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: [Acute hepatitis C without hepatic coma] 10-08-2020 Episodic Hypertension with complications and secondary hypertension (8 sources) Benign hypertensive heart AND renal disease; 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: [Hypertensive heart and renal disease, benign] 07-07-2005 Chronic Joint disorders and dislocations; trauma-related (4 sources) Other meniscus derangements, unspecified meniscus, unspecified knee; 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: [Derangement of meniscus, not elsewhere classified] 11-16-2023 Chronic Miscellaneous mental health disorders (3 sources) Nightmares; 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: [Nightmare disorder] Onset: 6 04-16-2016 Chronic Mood disorders (20 sources) Depressive disorder; 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: [Bipolar disorder] Onset: 4 Resolved: 5 03-27-2014 Chronic Nonspecific chest pain (20 sources) Chest pain; 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: [Chest pain, unspecified] Onset: 4 03-27-2014 Episodic Osteoarthritis (20 sources) Osteoarthritis of left knee joint; 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: [Unilateral primary osteoarthritis, left knee] Onset: Chronic Other congenital anomalies (8 sources) Porokeratosis; 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: [Other specified congenital malformations of skin] Onset: 1 12-28-2010 Chronic Other connective tissue disease (16 sources) History of total hip arthroplasty; 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: [Presence of unspecified artificial hip joint] 12-19-2024 Chronic Other connective tissue disease (10 sources) Muscle spasm of cervical muscle of neck; 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: [Other muscle spasm] 10-06-2024 Episodic Other gastrointestinal disorders (13 sources) Heartburn; 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: [Heartburn] 09-20-2024 Episodic Other gastrointestinal disorders (14 sources) Defecation straining; 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: [Other specified symptoms and signs involving the digestive system and abdomen] 08-16-2024 Episodic Other gastrointestinal disorders (20 sources) Constipation; 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: [Constipation, unspecified] 08-16-2024 Episodic Other liver diseases (3 sources) Inflammatory disease of liver; 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: [Inflammatory liver disease, unspecified] Onset: 6 11-14-2015 Chronic Other liver diseases (17 sources) Steatosis of liver; 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: [Fatty (change of) liver, not elsewhere classified] 08-16-2024 Chronic Other liver diseases (2 sources) Fatty (change of) liver, not elsewhere classified; 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: [Fatty (change of) liver, not elsewhere classified] Onset: 5 Chronic Other lower respiratory disease (18 sources) Dyspnea on exertion; 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: [Other forms of dyspnea] 09-28-2023 Episodic Other lower respiratory disease (8 sources) Other forms of dyspnea; 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: [Other respiratory abnormalities] 09-28-2023 Episodic Other nervous system disorders (20 sources) Sensory polyneuropathy; 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] 11-20-2020 Chronic Other non-traumatic joint disorders (20 sources) Pain in left knee; 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: [Left knee pain] 05-27-2023 Episodic Other nutritional; endocrine; and metabolic disorders (16 sources) Body mass index (BMI) 40.0-44.9, adult; 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: [Body mass index (BMI) 39.0-39.9, adult] Onset: 4 Resolved: 5 04-18-2014 Chronic Other nutritional; endocrine; and metabolic disorders (4 sources) Morbid obesity; 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: [Morbid (severe) obesity due to excess calories] Onset: 4 Resolved: 5 03-27-2014 Chronic Other nutritional; endocrine; and metabolic disorders (20 sources) Obesity; 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: [Obesity, unspecified] Onset: 5 05-16-2015 Chronic Other nutritional; endocrine; and metabolic disorders (20 sources) Body mass index 30+ - obesity; 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: [Obesity, unspecified] Onset: 4 08-24-2021 Chronic Other nutritional; endocrine; and metabolic disorders (20 sources) Obesity, unspecified; 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: [Obesity, unspecified] Onset: 5 09-28-2023 Chronic Other nutritional; endocrine; and metabolic disorders (1 source) Morbid (severe) obesity due to excess calories; 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: [Morbid (severe) obesity due to excess calories] Onset: 5 Chronic Other nutritional; endocrine; and metabolic disorders (1 source) History of nutritional deficiency; 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: [Personal history of other endocrine, nutritional and metabolic disease] 12-26-2024 Episodic Other nutritional; endocrine; and metabolic disorders (1 source) Personal history of other endocrine, nutritional and metabolic disease; 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: [History of vitamin D deficiency] Onset: 5 Episodic Other upper respiratory infections (20 sources) Acute sinusitis; 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: [Viral upper respiratory tract infection] Onset: 4 Resolved: 5 05-20-2014 Episodic Personality disorders (3 sources) Obsessive compulsive personality disorder; 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] Onset: 4 03-27-2014 Chronic Residual codes; unclassified (20 sources) Obstructive sleep apnea syndrome; 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: [Obstructive sleep apnea (adult) (pediatric)] 08-13-2020 Chronic Comment on above: noncompliant AHI 41.7, on Bipap 2 11/14 with residual AHI 4.7 (noncompliant) Residual codes; unclassified (20 sources) Obstructive sleep apnea (adult) (pediatric); 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: [Obstructive sleep apnea (adult)(pediatric)] Onset: 5 Chronic Rheumatoid arthritis and related disease (20 sources) Rheumatoid arthritis; 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: [Rheumatoid arthritis, unspecified] Onset: 5 10-08-2020 Chronic Screening and history of mental health and substance abuse codes (3 sources) Tobacco use and exposure - finding; 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: [Personal history of nicotine dependence] Onset: 4 06-19-2014 Chronic Spondylosis; intervertebral disc disorders; other back problems (1 source) Other cervical disc degeneration, unspecified cervical region; 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: [Other cervical disc degeneration, unspecified cervical region] Onset: 5 Chronic Spondylosis; intervertebral disc disorders; other back problems (20 sources) Spinal stenosis of lumbar region; 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: [Lumbosacral radiculopathy] Onset: 3 03-27-2014 Episodic Sprains and strains (20 sources) Strain of back muscle; 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: [Sprain of wrist] Onset: 1 Resolved: 4 07-05-2016 Episodic Systemic lupus erythematosus and connective tissue disorders (7 sources) Sjogren's syndrome; 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: [Sicca syndrome, unspecified] Onset: 5 Chronic Unclassified (1 source) Screening for malignant neoplasm of breast ; 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: [Other specified health status] Onset: 4 06-17-2014 Unclassified (1 source) Screening for malignant neoplasm of colon ; 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: [Encounter for screening for malignant neoplasm of colon] Onset: 6 05-31-2016 Unclassified (6 sources) Long-term drug therapy; 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: [Long-term (current) use of other medications] Onset: 5 Resolved: 5 10-17-2014 Unclassified (6 sources) Osteoarthritis of left knee; 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: [M17.12 - Unilateral primary osteoarthritis, left knee] Unclassified (1 source) Other intervertebral disc degeneration, lumbar region without mention of lumbar back pain or lower extremity pain; 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: [Other intervertebral disc degeneration, lumbar region without mention of lumbar back pain or lower extremity pain] Onset: 5 Urinary tract infections (20 sources) Acute cystitis; 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: [Urinary tract infectious disease] Onset: 4 Resolved: 5 05-20-2014 Episodic Past or Other Problems Problem Classification Problem Date Documented Da te Episodic/Chronic Abdominal pain (20 sources) Flank pain; 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: [Right upper quadrant pain] Onset: 03-26-2014 Resolved: 12-05-2015 05-01-2014 Episodic Acquired foot deformities (8 sources) Acquired cavus deformity of foot; 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: [Other acquired deformities of unspecified foot] Onset: 01-09-2009 01-09-2009 Episodic Calculus of urinary tract (11 sources) Kidney stone; 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: [Calculus of kidney] Onset: 05-06-2014 05-06-2014 Episodic Coagulation and hemorrhagic disorders (3 sources) Spontaneous ecchymoses; 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: [Spontaneous ecchymoses] Onset: 11-14-2015 Resolved: 11-24-2015 11-14-2015 Episodic Complication of device; implant or graft (8 sources) Complication of medical care; 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: [Erosion of other implanted mesh to organ or tissue, initial encounter] Onset: 07-01-2014 07-01-2014 Episodic Conditions associated with dizziness or vertigo (14 sources) Lightheadedness; 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: [Dizziness and giddiness] Onset: 01-30-2015 01-30-2015 Episodic Deficiency and other anemia (2 sources) Anemia, unspecified; 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: [Anemia, unspecified] Onset: 11-30-2024 Episodic Fluid and electrolyte disorders (14 sources) Hyponatremia; 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: [Hypokalemia] Onset: 04-17-2013 Resolved: 09-02-2014 05-29-2014 Episodic Malaise and fatigue (3 sources) Fatigue; 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: [Other fatigue] Onset: 11-14-2015 Resolved: 11-24-2015 11-14-2015 Episodic Nausea and vomiting (3 sources) Nausea; 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: [Nausea] Onset: 11-14-2015 Resolved: 11-24-2015 11-14-2015 Episodic Other aftercare (3 sources) Long-term (current) use of other medications; 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: [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] Onset: 10-17-2014 Resolved: 04-17-2015 10-17-2014 Episodic Other bone disease and musculoskeletal deformities (6 sources) Segmental and somatic dysfunction; 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: [Segmental and somatic dysfunction of cervical region] Onset: 07-05-2016 07-05-2016 Episodic Other bone disease and musculoskeletal deformities (8 sources) Exostosis; 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: [Other specified disorders of bone, unspecified site] Onset: 02-19-2010 02-19-2010 Episodic Other connective tissue disease (3 sources) Hand pain; 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: [Pain in left hand] Onset: 11-19-2015 Resolved: 11-21-2015 11-19-2015 Episodic Other connective tissue disease (8 sources) Residual foreign body in soft tissue; 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: [Residual foreign body in soft tissue] Onset: 07-14-2005 07-14-2005 Episodic Other connective tissue disease (8 sources) Calcaneal spur; 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: [Calcaneal spur, unspecified foot] Onset: 12-11-2007 12-11-2007 Episodic Other connective tissue disease (8 sources) Disorder of Achilles tendon; 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: [Achilles tendinitis, unspecified leg] Onset: 12-11-2007 12-11-2007 Episodic Other connective tissue disease (8 sources) Pain in limb; Translations: [Pain in unspecified limb] Onset: 02-04-2009 02-04-2009 Episodic Other connective tissue disease (8 sources) Tendinitis; Translations: [Enthesopathy, unspecified] Onset: 01-13-2011 01-13-2011 Episodic Other connective tissue disease (8 sources) Capsulitis; Translations: [Enthesopathy, unspecified] Onset: 02-15-2011 02-15-2011 Episodic Other eye disorders (8 sources) Wilmer's syndrome; 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] Onset: 12-31-2008 12-31-2008 Episodic Other gastrointestinal disorders (2 sources) Constipation, unspecified; Translations: [Constipation, unspecified] Onset: 09-19-2024 Episodic Other gastrointestinal disorders (2 sources) Other specified symptoms and signs involving the digestive system and abdomen; Translations: [Other specified symptoms and signs involving the digestive system and abdomen] Onset: 08-16-2024 Episodic Other injuries and conditions due to external causes (8 sources) Hematoma; Translations: [Other injury of unspecified body region, initial encounter] Onset: 02-19-2010 02-19-2010 Episodic Other lower respiratory disease (3 sources) Cough; Translations: [Cough] Onset: 06-04-2014 Resolved: 06-06-2014 06-04-2014 Episodic Other nervous system disorders (8 sources) Abnormal gait; Translations: [Unspecified abnormalities of gait and mobility] Onset: 05-17-2011 05-17-2011 Episodic Other non-traumatic joint disorders (5 sources) Ankle pain; Translations: [Pain in wrist] Onset: 11-17-2015 Resolved: 11-24-2015 11-18-2015 Episodic Other non-traumatic joint disorders (4 sources) Pain in wrist; Translations: [Pain in unspecified wrist] Resolved: 05-14-2014 09-13-2013 Episodic Other non-traumatic joint disorders (1 source) Pain in right knee; Translations: [Pain in right knee] Onset: 12-19-2024 Episodic Other nutritional; endocrine; and metabolic disorders (5 sources) Loss of appetite; Translations: [FH: Hypertension] Onset: 01-30-2015 Resolved: 11-22-2014 01-30-2015 Episodic Other screening for suspected conditions (not mental disorders or infectious disease) (20 sources) Other specified abnormal findings of blood chemistry; Translations: [Other abnormal blood chemistry] Onset: 08-20-2024 04-21-2016 Episodic Other upper respiratory disease (3 sources) Nasal discharge; Translations: [Other specified disorders of nose and nasal sinuses] Onset: 05-27-2016 05-27-2016 Episodic Otitis media and related conditions (6 sources) Dysfunction of eustachian tube; Translations: [Acute otitis media] Onset: 04-16-2016 04-16-2016 Episodic Pneumonia (except that caused by tuberculosis or sexually transmitted disease) (3 sources) Pneumonia; Translations: [Pneumonia, unspecified organism] Onset: 06-11-2014 Resolved: 06-25-2014 06-11-2014 Episodic Poisoning by nonmedicinal substances (8 sources) Allergic reaction to bee sting; Translations: [Toxic effect of venom of bees, accidental (unintentional), initial encounter] Onset: 12-09-2010 12-09-2010 Episodic Residual codes; unclassified (4 sources) FH: Hypertension; Translations: [Family history of ischemic heart disease and other diseases of the circulatory system] Resolved: 11-22-2014 11-22-2014 Episodic Residual codes; unclassified (8 sources) Insomnia; Translations: [Insomnia, unspecified] Onset: 08-06-2013 08-06-2013 Episodic Skin and subcutaneous tissue infections (20 sources) Cellulitis of hand; Translations: [Disorder of nail] Onset: 05-12-2007 Resolved: 05-14-2014 05-14-2014 Episodic Superficial injury; contusion (6 sources) Contusion of wrist; Translations: [Contusion of unspecified wrist] Resolved: 05-14-2014 03-20-2013 Episodic Viral infection (3 sources) Herpes simplex; Translations: [Herpesviral infection, unspecified] Onset: 11-22-2014 11-22-2014 Episodic Results Test Name Value Interpretation Reference Range Facility Gastroenterology Visit Repor ton 03-27-2025 Gastroenterology Visit Report Normal [facility] Celiac AB,Comprehensiveon ANTIGLIADIN IGA 3 units Normal 0-19 [facility] Comment on above: Result Comment: Nega tive 0 - 19 Weak Positive 20 - 30 Moderate to Strong Positive >30 Performed By: #### L 3100.1350, L501.2300, L501.5200, L503.0106, L500.4050, L504.2610, L100.9950, L100.0100, L501.6710, L501.1400, L503.6030, L3410.2350, L3100.1850, L503.6550, L101.9900 ####[facility] [address] [place], [place], [id number] ANTIGLIADIN IGG 2 units Normal 0-19 [facility] Comment on above: Result Comment: Nega tive 0 - 19 Weak Positive 20 - 30 Moderate to Strong Positive >30 Performed By: #### L 3100.1350, L501.2300, L501.5200, L503.0106, L500.4050, L504.2610, L100.9950, L100.0100, L501.6710, L501.1400, L503.6030, L3410.2350, L3100.1850, L503.6550, L101.9900 ####[facility] [address] [place], [address] ENDOMYSIAL IGA Negative Normal Negative [facility] Comment on above: Performed By: #### L 3100.1350, L501.2300, L501.5200, L503.0106, L500.4050, L504.2610, L100.9950, L100.0100, L501.6710, L501.1400, L503.6030, L3410.2350, L3100.1850, L503.6550, L101.9900 ####[facility] [address] [place], [place], [id number] IMMUNOGLOB A QN 91 mg/dL Normal 87-352 [facility] Comment on above: Performed By: #### L 3100.1350, L501.2300, L501.5200, L503.0106, L500.4050, L504.2610, L100.9950, L100.0100, L501.6710, L501.1400, L503.6030, L3410.2350, L3100.1850, L503.6550, L101.9900 ####[facility] [address] [place], [place], [id number] tTG IGA <2 Normal 0-3 [facility] Comment on above: Result Comment: Nega tive 0 - 3 Weak Positive 4 - 10 Positive >10 Tissue Transglutaminase (tTG) has been identified as the endomysial antigen. Studies have demonstr- ated that endomysial IgA antibodies have over 99% specificity for gluten sensitive enteropathy. Performed By: #### L 3100.1350, L501.2300, L501.5200, L503.0106, L500.4050, L504.2610, L100.9950, L100.0100, L501.6710, L501.1400, L503.6030, L3410.2350, L3100.1850, L503.6550, L101.9900 ####[facility] [address] [place], [address] tTG IGG <2 Normal 0-5 [facility] Comment on above: Result Comment: Nega tive 0 - 5 Weak Positive 6 - 9 Positive >9 Performed By: #### L 3100.1350, L501.2300, L501.5200, L503.0106, L500.4050, L504.2610, L100.9950, L100.0100, L501.6710, L501.1400, L503.6030, L3410.2350, L3100.1850, L503.6550, L101.9900 ####[facility] [address] [place], [place], [id number] Erythropoietinon 03-22-2025 ERYTHROPOIETIN 14.3 mIU/mL Normal 2.6-18.5 [facility] Comment on above: Result Comment: [employer]og[employer] DxI 800 Immunoassay SystemValues obtained with different assay methods or kits cannotbe used interchangeably. Results cannot be interpreted asabsolute evidence of the presence or absence of malignantdisease. Performed By: #### L 3100.1350, L501.2300, L501.5200, L503.0106, L500.4050, L504.2610, L100.9950, L100.0100, L501.6710, L501.1400, L503.6030, L3410.2350, L3100.1850, L503.6550, L101.9900 ####[facility] [address] [place], [place], [id number] Haptoglobinon 03-22-2025 HAPTOGLOBIN 231 mg/dL Normal 37-355 [facility] Comment on above: Result Comment: Perf ormed at: [facility] [address] [id number] Director: Meliton Browning PhD, Phone: [phone] Performed By: #### L 3100.1350, L501.2300, L501.5200, L503.0106, L500.4050, L504.2610, L100.9950, L100.0100, L501.6710, L501.1400, L503.6030, L3410.2350, L3100.1850, L503.6550, L101.9900 ####[facility] [address] [place], [address] Absolute lymphocyte countOrd ered By: John Jang on 03-20-2025 Lymphocytes Auto (Unsp spec) [#/Vol] 2.78 10*3/uL 0.83-4.51 [facility] Absolute neutrophil countOrd ered By: John Jang on 03-20-2025 Neutrophils (Bld) [#/Vol] 4.2 10*3/uL 2.0-7.7 [facility] Anion gap in Serum or Plasma Ordered By: John Jang on 03-20-2025 Anion gap [Moles/Vol] 9 mmol/L 5-15 [facility] Automated lymphocyte count a s percentage of total leukocytesOrdered By: John Jang on 03-20-2025 Lymphocytes/100 WBC Auto (Unsp spec) 35.1 % 19- [facility] BUN/creatinine ratioOrdered By: John Jang on 03-20-2025 Urea nitrogen/Creatinine [Mass ratio] 16.0 mg/mg 10-20 [facility] Basophil percentageOrdered B y: John Jang on 03-20-2025 Basophils/100 WBC (Bld) 0.3 % 0-1 [facility] Bilirubin, totalOrdered By: John Jang on 03-20-2025 Bilirubin [Mass/Vol] 0.17 mg/dL 0.00-1.30 [facility] CBC W/Diff, Automatedon 02-27 Anisocytosis Ql (Bld) 1+ Normal [facility] Comment on above: Performed By: #### L 3100.1350, L501.2300, L501.5200, L503.0106, L500.4050, L504.2610, L100.9950, L100.0100, L501.6710, L501.1400, L503.6030, L3410.2350, L3100.1850, L503.6550, L101.9900 ####[facility] [address] [place], [place], [id number] CRPon 03-20-2025 C-REACTIVE PROT 9.98 mg/L High 0.0-3.0 [facility] Comment on above: Performed By: #### L 3100.1350, L501.2300, L501.5200, L503.0106, L500.4050, L504.2610, L100.9950, L100.0100, L501.6710, L501.1400, L503.6030, L3410.2350, L3100.1850, L503.6550, L101.9900 ####[facility] [address] [place], [address] Carbon dioxide, total [Moles /volume] in Central venous bloodOrdered By: John Jang on 03-20-2025 CO2 [Moles/Vol] 23.5 mmol/L 21.0-32.0 [facility] Chloride assayOrdered By: Natalya Jang on 03-20-2025 Chloride [Moles/Vol] 100 mmol/L 98-108 [facility] Comprehensive Metabolic Prof ilon 03-20-2025 Albumin [Mass/Vol] 3.9 g/dL Normal 3.4-4.8 [facility] Comment on above: Performed By: #### L 3100.1350, L501.2300, L501.5200, L503.0106, L500.4050, L504.2610, L100.9950, L100.0100, L501.6710, L501.1400, L503.6030, L3410.2350, L3100.1850, L503.6550, L101.9900 ####[facility] [address] [place], [place], [id number] Albumin/Globulin [Mass ratio] 1.1 {ratio} Normal 0.9-2.4 [facility] Comment on above: Performed By: #### L 3100.1350, L501.2300, L501.5200, L503.0106, L500.4050, L504.2610, L100.9950, L100.0100, L501.6710, L501.1400, L503.6030, L3410.2350, L3100.1850, L503.6550, L101.9900 ####[facility] [address] [place], [place], [id number] ALK PHOS 86 U/L Normal 35-104 [facility] Comment on above: Performed By: #### L 3100.1350, L501.2300, L501.5200, L503.0106, L500.4050, L504.2610, L100.9950, L100.0100, L501.6710, L501.1400, L503.6030, L3410.2350, L3100.1850, L503.6550, L101.9900 ####[facility] [address] [place], [place], [id number] ALT [Catalytic activity/Vol] 9 U/L Normal <=34 [facility] Comment on above: Performed By: #### L 3100.1350, L501.2300, L501.5200, L503.0106, L500.4050, L504.2610, L100.9950, L100.0100, L501.6710, L501.1400, L503.6030, L3410.2350, L3100.1850, L503.6550, L101.9900 ####[facility] [address] [place], [place], [id number] AST [Catalytic activity/Vol] 18 U/L Normal <=31 [facility] Comment on above: Performed By: #### L 3100.1350, L501.2300, L501.5200, L503.0106, L500.4050, L504.2610, L100.9950, L100.0100, L501.6710, L501.1400, L503.6030, L3410.2350, L3100.1850, L503.6550, L101.9900 ####[facility] [address] [place], [id number] Bilirubin [Mass/Vol] 0.17 mg/dL Normal 0.00-1.30 [facility] Comment on above: Performed By: #### L 3100.1350, L501.2300, L501.5200, L503.0106, L500.4050, L504.2610, L100.9950, L100.0100, L501.6710, L501.1400, L503.6030, L3410.2350, L3100.1850, L503.6550, L101.9900 ####[facility] [address] [place], [address] BUN/CRE 16.0 RATIO Normal 10-20 [facility] Comment on above: Performed By: #### L 3100.1350, L501.2300, L501.5200, L503.0106, L500.4050, L504.2610, L100.9950, L100.0100, L501.6710, L501.1400, L503.6030, L3410.2350, L3100.1850, L503.6550, L101.9900 ####[facility] [address] [place], [place], [phone] Calcium [Mass/Vol] 9.2 mg/dL Normal 7.6-11.0 [facility] Comment on above: Performed By: #### L 3100.1350, L501.2300, L501.5200, L503.0106, L500.4050, L504.2610, L100.9950, L100.0100, L501.6710, L501.1400, L503.6030, L3410.2350, L3100.1850, L503.6550, L101.9900 ####[facility] [address] [place], [place], [phone] Chloride [Moles/Vol] 100 mmol/L Normal 98-108 [facility] Comment on above: Performed By: #### L 3100.1350, L501.2300, L501.5200, L503.0106, L500.4050, L504.2610, L100.9950, L100.0100, L501.6710, L501.1400, L503.6030, L3410.2350, L3100.1850, L503.6550, L101.9900 ####[facility] [address] [place], [place], [phone] CO2 [Moles/Vol] 23.5 mmol/L Normal 21.0-32.0 [facility] Comment on above: Performed By: #### L 3100.1350, L501.2300, L501.5200, L503.0106, L500.4050, L504.2610, L100.9950, L100.0100, L501.6710, L501.1400, L503.6030, L3410.2350, L3100.1850, L503.6550, L101.9900 ####[facility] [address] [place], [place], [phone] Creatinine [Mass/Vol] 0.76 mg/dL Normal 0.70-1.20 [facility] Comment on above: Performed By: #### L 3100.1350, L501.2300, L501.5200, L503.0106, L500.4050, L504.2610, L100.9950, L100.0100, L501.6710, L501.1400, L503.6030, L3410.2350, L3100.1850, L503.6550, L101.9900 ####[facility] [address] [place], [place], [phone] ECRCL 75.61 ml/min Normal 50-250 [facility] Comment on above: Performed By: #### L 3100.1350, L501.2300, L501.5200, L503.0106, L500.4050, L504.2610, L100.9950, L100.0100, L501.6710, L501.1400, L503.6030, L3410.2350, L3100.1850, L503.6550, L101.9900 ####[facility] [address] [place], [place], [phone] GAP 9 Normal 5-15 [facility] Comment on above: Performed By: #### L 3100.1350, L501.2300, L501.5200, L503.0106, L500.4050, L504.2610, L100.9950, L100.0100, L501.6710, L501.1400, L503.6030, L3410.2350, L3100.1850, L503.6550, L101.9900 ####[facility] [address] [place], [place], [phone] GFR/1.73 sq M.predicted among non-blacks MDRD (S/P/Bld) [Vol rate/Area] 85 mL/min/{1.73_m2} Normal >60 [facility] Comment on above: Result Comment: mL/m in/1.73m2 CKD-EPI Creatinine Equation (2020) Performed By: #### L 3100.1350, L501.2300, L501.5200, L503.0106, L500.4050, L504.2610, L100.9950, L100.0100, L501.6710, L501.1400, L503.6030, L3410.2350, L3100.1850, L503.6550, L101.9900 ####[facility] [address] [place], [place], [phone] Globulin (S) [Mass/Vol] 3.6 g/dL Normal 2.2-4.2 [facility] Comment on above: Performed By: #### L 3100.1350, L501.2300, L501.5200, L503.0106, L500.4050, L504.2610, L100.9950, L100.0100, L501.6710, L501.1400, L503.6030, L3410.2350, L3100.1850, L503.6550, L101.9900 ####[facility] [address] [place], [place], [phone] Glucose [Mass/Vol] 84 mg/dL Normal 70-99 [facility] Comment on above: Performed By: #### L 3100.1350, L501.2300, L501.5200, L503.0106, L500.4050, L504.2610, L100.9950, L100.0100, L501.6710, L501.1400, L503.6030, L3410.2350, L3100.1850, L503.6550, L101.9900 ####[facility] [address] [place], [address] Potassium [Moles/Vol] 4.0 mmol/L Normal 3.3-5.1 [facility] Comment on above: Performed By: #### L 3100.1350, L501.2300, L501.5200, L503.0106, L500.4050, L504.2610, L100.9950, L100.0100, L501.6710, L501.1400, L503.6030, L3410.2350, L3100.1850, L503.6550, L101.9900 ####[facility] [address] [place], [place], [phone]) Sodium [Moles/Vol] 133 mmol/L Normal 133-145 [facility] Comment on above: Performed By: #### L 3100.1350, L501.2300, L501.5200, L503.0106, L500.4050, L504.2610, L100.9950, L100.0100, L501.6710, L501.1400, L503.6030, L3410.2350, L3100.1850, L503.6550, L101.9900 ####[facility] [address] [place], [place], [phone] T PROT 7.4 g/dL Normal 5.9-8.4 [facility] Comment on above: Performed By: #### L 3100.1350, L501.2300, L501.5200, L503.0106, L500.4050, L504.2610, L100.9950, L100.0100, L501.6710, L501.1400, L503.6030, L3410.2350, L3100.1850, L503.6550, L101.9900 ####[facility] [address] [place], [place], [phone] Urea nitrogen [Mass/Vol] 12 mg/dL Normal 4-19 [facility] Comment on above: Performed By: #### L 3100.1350, L501.2300, L501.5200, L503.0106, L500.4050, L504.2610, L100.9950, L100.0100, L501.6710, L501.1400, L503.6030, L3410.2350, L3100.1850, L503.6550, L101.9900 ####[facility] [address] [place], [place], [phone] Eosinophil percentageOrdered By: John Jang on 03-20-2025 Eosinophils/100 WBC (Bld) 0.9 % 0-5 [facility] Erythrocyte Sed Rateon 03-20 SED RATE 20 mm/hr Normal 0-30 [facility] Comment on above: Performed By: #### L 3100.1350, L501.2300, L501.5200, L503.0106, L500.4050, L504.2610, L100.9950, L100.0100, L501.6710, L501.1400, L503.6030, L3410.2350, L3100.1850, L503.6550, L101.9900 ####[facility] [address] [place], [place], [phone] Erythrocyte distribution wid th ratioOrdered By: John Jang on 03-20-2025 Erythrocyte distribution width (RBC) [Ratio] 21.3 % High 11.6-14.6 [facility] Erythrocyte distribution wid th standard deviationOrdered By: John Jang on 03-20-2025 Erythrocyte distribution width (RBC) [Ratio] 67.3 fl High 35.1-43.9 [facility] Erythrocyte sedimentation ra teOrdered By: John Jang on 03-20-2025 ESR (Bld) [Velocity] 20 mm/h 0-30 [facility] Ferritinon 03-20-2025 Ferritin [Mass/Vol] 132 ng/mL Normal 22-378 [facility] Comment on above: Performed By: #### L 3100.1350, L501.2300, L501.5200, L503.0106, L500.4050, L504.2610, L100.9950, L100.0100, L501.6710, L501.1400, L503.6030, L3410.2350, L3100.1850, L503.6550, L101.9900 ####[facility] [address] [place], [address] Glomerular filtration rate ( GFR) estimation/1.73 sq m using serum, plasma, or whole bOrdered By: John Jang on 03-20-2025 GFR/1.73 sq M.predicted among non-blacks MDRD (S/P/Bld) [Vol rate/Area] 85 mL/min/{1.73_m2} >60 [facility] Comment on above: mL/min/1.73m2 CKD-EP I Creatinine Equation (2020) Hematocrit Auto (Bld) [Volum e fraction]Ordered By: John Jang on 03-20-2025 Hematocrit (Bld) [Volume fraction] 37.6 % 37-47 [facility] Hemoglobin measurementOrdere d By: John Jang on 03-20-2025 Hemoglobin (Bld) [Mass/Vol] 11.3 g/dL Low 12.0-15.0 [facility] Immature granulocytes/100 WB C Auto (Bld)Ordered By: John Jang on 03-20-2025 Immature granulocytes/100 WBC (Bld) 0.800 % 0.0-0.9 [facility] Comment on above: IG% - Immature Granu locytes (promyelocytes, myelocytes and metamyelocytes) > 1% indicates that a LEFT SHIFT is Present. Iron measurement (mass/mass) Ordered By: John Jang on 03-20-2025 Iron (Unsp spec) [Mass/Mass] 57 ug/dL 50-170 [facility] Iron+Iron Binding Capacityon 03-20-2025 Iron [Mass/Vol] 57 ug/dL Normal 50-170 [facility] Comment on above: Performed By: #### L 3100.1350, L501.2300, L501.5200, L503.0106, L500.4050, L504.2610, L100.9950, L100.0100, L501.6710, L501.1400, L503.6030, L3410.2350, L3100.1850, L503.6550, L101.9900 ####[facility] [address] [place], [place], [phone] IRON SATURATION 20.0 Normal 13-59 [facility] Comment on above: Performed By: #### L 3100.1350, L501.2300, L501.5200, L503.0106, L500.4050, L504.2610, L100.9950, L100.0100, L501.6710, L501.1400, L503.6030, L3410.2350, L3100.1850, L503.6550, L101.9900 ####[facility] [address] [place], [place], [phone] TIBC 292 ug/dL Normal 250-450 [facility] Comment on above: Performed By: #### L 3100.1350, L501.2300, L501.5200, L503.0106, L500.4050, L504.2610, L100.9950, L100.0100, L501.6710, L501.1400, L503.6030, L3410.2350, L3100.1850, L503.6550, L101.9900 ####[facility] [address] [place], [place], [phone] UIBC 235 ug/dL Normal 228-428 [facility] Comment on above: Performed By: #### L 3100.1350, L501.2300, L501.5200, L503.0106, L500.4050, L504.2610, L100.9950, L100.0100, L501.6710, L501.1400, L503.6030, L3410.2350, L3100.1850, L503.6550, L101.9900 ####[facility] [address] [place], [address] LDHon 03-20-2025 LDH 163 U/L Normal 84-246 [facility] Comment on above: Order Comment: 1 Performed By: #### L 3100.1350, L501.2300, L501.5200, L503.0106, L500.4050, L504.2610, L100.9950, L100.0100, L501.6710, L501.1400, L503.6030, L3410.2350, L3100.1850, L503.6550, L101.9900 ####[facility] [address] [place], [address] Laboratory - Chemistry and C hemistry - challengeOrdered By: John Jang on 03-20-2025 AST [Catalytic activity/Vol] 18 U/L <32 [facility] Laboratory - Hematology and Cell countsOrdered By: John Jang on 03-20-2025 Anisocytosis Ql (Bld) 1+ [facility] Lactate dehydrogenase (LDH) measurementOrdered By: John Jang on 03-20-2025 LDH [Catalytic activity/Vol] 163 U/L 84-246 [facility] MCV (mean corpuscular volume ) determinationOrdered By: John Jang on 03-20-2025 MCV (RBC) [Entitic vol] 86.2 fL 81-99 [facility] Magnesiumon 03-20-2025 Magnesium [Mass/Vol] 1.9 mg/dL Normal 1.5-2.2 [facility] Comment on above: Performed By: #### L 3100.1350, L501.2300, L501.5200, L503.0106, L500.4050, L504.2610, L100.9950, L100.0100, L501.6710, L501.1400, L503.6030, L3410.2350, L3100.1850, L503.6550, L101.9900 ####[facility] [address] [place], [address] Magnesium measurement (mass/ volume)Ordered By: John Jang on 03-20-2025 Magnesium (Unsp spec) [Mass/Vol] 1.9 mg/dL 1.5-2.2 [facility] Mean corpuscular hemoglobin (MCH) determinationOrdered By: John Jang on 03-20-2025 MCH (RBC) [Entitic mass] 25.9 pg Low 27.0-32.0 [facility] Mean corpuscular hemoglobin concentration (MCHC) determinationOrdered By: John Jang on 03-20-2025 MCHC (RBC) [Mass/Vol] 30.1 g/dL Low 32-36 [facility] Mean platelet volume determi nationOrdered By: John Jang on 03-20-2025 Platelet mean volume (Bld) [Entitic vol] 8.2 fL 6.2-12.0 [facility] Monocyte percentageOrdered B y: John Jang on 03-20-2025 Monocytes/100 WBC (Bld) 10.2 % High 0-10 [facility] Neutrophil percentageOrdered By: John Jang on 03-20-2025 Neutrophils/100 WBC (Bld) 52.7 % 47-70 [facility] No Panel InformationOrdered By: John Jang on 03-20-2025 Tissue Transglutaminase IgG Ab <2 U/mL 0-5 [facility] Comment on above: Negative 0 - 5 Weak Positive 6 - 9 Positive >9 Unsaturated Iron Binding Capacity 235 ug/dL 228-428 [facility] Nucleated red blood cell per centageOrdered By: John Jang on 03-20-2025 Nucleated RBC/100 WBC (Bld) [Ratio] 0 % 0-5 [facility] Oncology Visit Reporton 02-27 Oncology Visit Report Normal [facility] Phosphoruson 03-20-2025 Phosphate [Mass/Vol] 3.0 mg/dL Normal 2.7-4.5 [facility] Comment on above: Performed By: #### L 3100.1350, L501.2300, L501.5200, L503.0106, L500.4050, L504.2610, L100.9950, L100.0100, L501.6710, L501.1400, L503.6030, L3410.2350, L3100.1850, L503.6550, L101.9900 ####[facility] [address] [place], [place], [id number] Platelet countOrdered By: Natalya Jang on 03-20-2025 Platelets (Bld) [#/Vol] 347 10*3/uL 150-450 [facility] Potassium measurement (mass/ volume)Ordered By: John Jang on 03-20-2025 Potassium (Unsp spec) [Mass/Vol] 4.0 mmol/L 3.3-5.1 [facility] RBC Auto (Bld) [#/Vol]Ordere d By: John Jang on 03-20-2025 RBC (Bld) [#/Vol] 4.36 10*6/uL 4.2-5.4 [facility] Retic Panelon 03-20-2025 IM RET FRACTION 14.80 Normal 3.00-15.90 [facility] Comment on above: Performed By: #### L 3100.1350, L501.2300, L501.5200, L503.0106, L500.4050, L504.2610, L100.9950, L100.0100, L501.6710, L501.1400, L503.6030, L3410.2350, L3100.1850, L503.6550, L101.9900 ####[facility] [address] [place], [place], [phone] RET-HE 30.5 pg Normal 30-35 [facility] Comment on above: Performed By: #### L 3100.1350, L501.2300, L501.5200, L503.0106, L500.4050, L504.2610, L100.9950, L100.0100, L501.6710, L501.1400, L503.6030, L3410.2350, L3100.1850, L503.6550, L101.9900 ####[facility] [address] [place], [address] Retic Count 1.21 Normal 0.5-1.5 [facility] Comment on above: Performed By: #### L 3100.1350, L501.2300, L501.5200, L503.0106, L500.4050, L504.2610, L100.9950, L100.0100, L501.6710, L501.1400, L503.6030, L3410.2350, L3100.1850, L503.6550, L101.9900 ####[facility] [address] [place], [address] Reticulocyte hemoglobin equi valent (RET-He) measurementOrdered By: John Jang on 03-20-2025 Hemoglobin (Reticulocytes) [Entitic mass] 30.5 pg 30-35 [facility] Reticulocytes Auto (Bld) [#/ Vol]Ordered By: John Jang on 03-20-2025 Reticulocytes/100 RBC (Bld) 1.21 % 0.5-1.5 [facility] Serum creatinine measurement (mass/volume)Ordered By: John Jang on 03-20-2025 Creatinine [Mass/Vol] 0.76 mg/dL 0.70-1.20 [facility] Serum globulin measurementOr dered By: John Jang on 03-20-2025 Globulin (S) [Mass/Vol] 3.6 g/dL 2.2-4.2 [facility] Serum glucose measurement (m ass/volume)Ordered By: John Jang on 03-20-2025 Glucose [Mass/Vol] 84 mg/dL 70-99 [facility] Serum or plasma C reactive p rotein measurement (mass/volume)Ordered By: John Jang on 03-20-2025 CRP [Mass/Vol] 9.98 mg/L High 0.0-3.0 [facility] Serum or plasma alanine han otransferase (ALT) measurementOrdered By: John Jang on 03-20-2025 ALT [Catalytic activity/Vol] 9 U/L <35 [facility] Serum or plasma albumin zara urement (mass/volume)Ordered By: John Jang on 03-20-2025 Albumin [Mass/Vol] 3.9 g/dL 3.4-4.8 [facility] Serum or plasma albumin/glob ulin mass ratioOrdered By: John Jang on 03-20-2025 Albumin/Globulin [Mass ratio] 1.1 {ratio} 0.9-2.4 [facility] Serum or plasma alkaline alvarez sphatase measurementOrdered By: John Jang on 03-20-2025 ALP [Catalytic activity/Vol] 86 U/L 35-104 [facility] Serum or plasma calcium zara urement (mass/volume)Ordered By: John Jang on 03-20-2025 Calcium [Mass/Vol] 9.2 mg/dL 7.6-11.0 [facility] Serum or plasma erythropoiet in (EPO) measurement (units/volume)Ordered By: John Jang on 03-20-2025 Erythropoietin (EPO) Qn 14.3 mIU/mL 2.6-18.5 [facility] Comment on above: [employer] DxI 800 Immunoassay SystemValues obtained with different assay methods or kits cannotbe used interchangeably. Results cannot be interpreted asabsolute evidence of the presence or absence of malignantdisease. Serum or plasma ferritin ryan surement (mass/volume)Ordered By: John Jang on 03-20-2025 Ferritin [Mass/Vol] 132 ng/mL 22-378 [facility] Serum or plasma iron saturat ion measurement (mass fraction)Ordered By: John Jang on 03-20-2025 Iron saturation [Mass fraction] 20.0 % 13-59 [facility] Serum or plasma urea nitroge n measurement (mass/volume)Ordered By: John Jang on 03-20-2025 Urea nitrogen [Mass/Vol] 12 mg/dL 4-19 [facility] Serum or plasma uric acid me asurement (mass/volume)Ordered By: John Jang on 03-20-2025 Urate [Mass/Vol] 4.0 mg/dL 2.6-6.0 [facility] Comment on above: The drugs N-Acetylcy steine and Metamizole may falsely depress this assay. Serum tissue transglutaminas e (tTG) IgA antibody assay (units/volume)Ordered By: John Jang on 03-20-2025 tTG IgA Qn (S) <2 U/mL 0-3 [facility] Comment on above: Negative 0 - 3 Weak Positive 4 - 10 Positive >10 Tissue Transglutaminase (tTG) has been identified as the endomysial antigen. Studies have demonstr- ated that endomysial IgA antibodies have over 99% specificity for gluten sensitive enteropathy. Sodium levelOrdered By: Maycol Jang on 03-20-2025 Sodium [Moles/Vol] 133 mmol/L 133-145 [facility] Total proteinOrdered By: Arian Jang on 03-20-2025 Protein [Mass/Vol] 7.4 g/dL 5.9-8.4 [facility] Uric Acidon 03-20-2025 URIC 4.0 mg/dL Normal 2.6-6.0 [facility] Comment on above: Result Comment: The drugs N-Acetylcysteine and Metamizole may falselydepress this assay. Performed By: #### L 3100.1350, L501.2300, L501.5200, L503.0106, L500.4050, L504.2610, L100.9950, L100.0100, L501.6710, L501.1400, L503.6030, L3410.2350, L3100.1850, L503.6550, L101.9900 ####[facility] [address] [place], [address] Vitamin B12on 03-20-2025 Cobalamin (Vitamin B12) [Mass/Vol] 409 pg/mL Normal 180-914 [facility] Comment on above: Performed By: #### L 3100.1350, L501.2300, L501.5200, L503.0106, L500.4050, L504.2610, L100.9950, L100.0100, L501.6710, L501.1400, L503.6030, L3410.2350, L3100.1850, L503.6550, L101.9900 ####[facility] [address] [place], [place], [phone] Vitamin B12 ser/plasOrdered By: John Jang on 03-20-2025 Cobalamin (Vitamin B12) [Mass/Vol] 409 pg/mL 180-914 [facility] White blood cell (WBC) count Ordered By: John Jang on 03-20-2025 WBC (Bld) [#/Vol] 7.9 10*3/uL 4.4-11.0 [facility] Colonoscopy Reporton 025 Colonoscopy Report Normal [facility] MR/POSTOP.ANEon 03-07-2025 MR/POSTOP.ANE Normal [facility] MR/[id number] 03-07-2025 MR/POSTOPAN2 Normal [facility] MR/PAT.ANEon 03-06-2025 MR/PAT.ANE Normal [facility] Celiac AB,Comprehensiveon ANTIGLIADIN IGA 3 units Normal 0-19 [facility] Comment on above: Result Comment: Nega tive 0 - 19 Weak Positive 20 - 30 Moderate to Strong Positive >30 Performed By: #### L 3410.2350 ####[facility] [address] [place], [place], [address] ANTIGLIADIN IGG 2 units Normal 0-19 [facility] Comment on above: Result Comment: Nega tive 0 - 19 Weak Positive 20 - 30 Moderate to Strong Positive >30 Performed By: #### L 3410.2350 ####[facility] [address] [place], [place], [address] ENDOMYSIAL IGA Negative Normal Negative [facility] Comment on above: Performed By: #### L 3410.2350 ####[facility] [address] [place], [address] IMMUNOGLOB A QN 91 mg/dL Normal 87-352 [facility] Comment on above: Result Comment: Perf ormed at: CB - [facility] [address] [id number] Director: Meliton Browning PhD, Phone: [phone] Performed By: #### L 3410.2350 ####[facility] [address] [place], [place], [id number] tTG IGA <2 Normal 0-3 [facility] Comment on above: Result Comment: Nega tive 0 - 3 Weak Positive 4 - 10 Positive >10 Tissue Transglutaminase (tTG) has been identified as the endomysial antigen. Studies have demonstr- ated that endomysial IgA antibodies have over 99% specificity for gluten sensitive enteropathy. Performed By: #### L 1230.2350 ####[facility] [address] [place], [place], [id number] tTG IGG 3 U/mL Normal 0-5 [facility] Comment on above: Result Comment: Nega tive 0 - 5 Weak Positive 6 - 9 Positive >9 Performed By: #### L 3410.2350 ####[facility] [address] [place], [address] Erythropoietinon 01-28-2025 ERYTHROPOIETIN 19.7 mIU/mL High 2.6-18.5 [facility] Comment on above: Result Comment: [employer] DxI 800 Immunoassay SystemValues obtained with different assay methods or kits cannotbe used interchangeably. Results cannot be interpreted asabsolute evidence of the presence or absence of malignantdisease.Performed at: [place] [id number] Director: Meliton Browning PhD, Phone: [phone] Performed By: #### L 5230.5619, V946.0662 ####[facility] [address] [place], [place], [id number] No Panel InformationOrdered By: John Jang on 01-25-2025 Tissue Transglutaminase IgG Ab 3 U/mL 0-5 [facility] Comment on above: Negative 0 - 5 Weak Positive 6 - 9 Positive >9 Serum or plasma erythropoiet in (EPO) measurement (units/volume)Ordered By: John Jang on 01-25-2025 Erythropoietin (EPO) Qn 19.7 mIU/mL High 2.6-18.5 [facility] Comment on above: [employer] el DxI 800 Immunoassay SystemValues obtained with different assay methods or kits cannotbe used interchangeably. Results cannot be interpreted asabsolute evidence of the presence or absence of malignantdisease.Performed at: [facility] [id number] Director: Meliton Browning PhD, Phone: [phone] Serum tissue transglutaminas e (tTG) IgA antibody assay (units/volume)Ordered By: John Jang on 01-25-2025 tTG IgA Qn (S) <2 U/mL 0-3 [facility] Comment on above: Negative 0 - 3 Weak Positive 4 - 10 Positive >10 Tissue Transglutaminase (tTG) has been identified as the endomysial antigen. Studies have demonstr- ated that endomysial IgA antibodies have over 99% specificity for gluten sensitive enteropathy. Stool Occult Blood iFOBon STOB Negative Normal [facility] Comment on above: Performed By: #### L 3100.1350, M100.7900 ####[facility] [id number] [place], [address] Stool gastrointestinal hemog lobin detection by immunologic methodOrdered By: John Jang on 01-25-2025 Lower GI hemoglobin IA Ql (Stl) [facility] Celiac AB,Comprehensiveon ANTIGLIADIN IGA 2 units Normal 0-19 [facility] Comment on above: Result Comment: Nega tive 0 - 19 Weak Positive 20 - 30 Moderate to Strong Positive >30 Performed By: #### L 501.5200, L501.1400, L101.9900, L3410.2350, L501.6710, L503.0106, L503.6550, L100.0100, L3100.1850, L504.2610, L501.2300, L503.6030, L100.9950, L500.4050 ####[facility] [address] [place], [address] ANTIGLIADIN IGG 1 units Normal 0-19 [facility] Comment on above: Result Comment: Nega tive 0 - 19 Weak Positive 20 - 30 Moderate to Strong Positive >30 Performed By: #### L 501.5200, L501.1400, L101.9900, L3410.2350, L501.6710, L503.0106, L503.6550, L100.0100, L3100.1850, L504.2610, L501.2300, L503.6030, L100.9950, L500.4050 ####[facility] [address] [place], [place], [id number] ENDOMYSIAL IGA Negative Normal Negative [facility] Comment on above: Performed By: #### L 501.5200, L501.1400, L101.9900, L3410.2350, L501.6710, L503.0106, L503.6550, L100.0100, L3100.1850, L504.2610, L501.2300, L503.6030, L100.9950, L500.4050 ####[facility] [address] [place], [place], [id number] IMMUNOGLOB A QN 92 mg/dL Normal 87-352 [facility] Comment on above: Performed By: #### L 501.5200, L501.1400, L101.9900, L3410.2350, L501.6710, L503.0106, L503.6550, L100.0100, L3100.1850, L504.2610, L501.2300, L503.6030, L100.9950, L500.4050 ####[facility] [address] [place], [place], [phone] tTG IGA <2 Normal 0-3 [facility] Comment on above: Result Comment: Nega tive 0 - 3 Weak Positive 4 - 10 Positive >10 Tissue Transglutaminase (tTG) has been identified as the endomysial antigen. Studies have demonstr- ated that endomysial IgA antibodies have over 99% specificity for gluten sensitive enteropathy. Performed By: #### L 501.5200, L501.1400, L101.9900, L3410.2350, L501.6710, L503.0106, L503.6550, L100.0100, L3100.1850, L504.2610, L501.2300, L503.6030, L100.9950, L500.4050 ####[facility] [address] [place], [place], [id number] tTG IGG 2 U/mL Normal 0-5 [facility] Comment on above: Result Comment: Nega tive 0 - 5 Weak Positive 6 - 9 Positive >9 Performed By: #### L 501.5200, L501.1400, L101.9900, L3410.2350, L501.6710, L503.0106, L503.6550, L100.0100, L3100.1850, L504.2610, L501.2300, L503.6030, L100.9950, L500.4050 ####[facility] [address] [place], [place], [id number] Haptoglobinon 01-24-2025 HAPTOGLOBIN 234 mg/dL Normal 37-355 [facility] Comment on above: Result Comment: Perf ormed at: - [id number] Director: Meliton Browning PhD, Phone: [phone] Performed By: #### L 501.5200, L501.1400, L101.9900, L3410.2350, L501.6710, L503.0106, L503.6550, L100.0100, L3100.1850, L504.2610, L501.2300, L503.6030, L100.9950, L500.4050 ####[facility] [address] [place], [place], [phone] Absolute lymphocyte countOrd ered By: John Jang on 01-23-2025 Lymphocytes Auto (Unsp spec) [#/Vol] 3.00 10*3/uL 0.83-4.51 [facility] Absolute neutrophil countOrd ered By: John Baronwanda on 01-23-2025 Neutrophils (Bld) [#/Vol] 4.6 10*3/uL 2.0-7.7 [facility] Anion gap in Serum or Plasma Ordered By: John Jang on 01-23-2025 Anion gap [Moles/Vol] 11 mmol/L 5-15 [facility] Automated lymphocyte count a s percentage of total leukocytesOrdered By: John Jang on 01-23-2025 Lymphocytes/100 WBC Auto (Unsp spec) 35.1 % 19- [facility] BUN/creatinine ratioOrdered By: [facility] on 01-23-2025 Urea nitrogen/Creatinine [Mass ratio] 30.5 mg/mg High 10- [facility] Basophil percentageOrdered B y: John Jang on 01-23-2025 Basophils/100 WBC (Bld) 0.2 % 0-1 [facility] Bilirubin, totalOrdered By: John Jang on 01-23-2025 Bilirubin [Mass/Vol] 0.21 mg/dL 0.00-1.30 [facility] CBC W/Diff, Automatedon 12-28 Anisocytosis Ql (Bld) 2+ Normal [facility] Comment on above: Performed By: #### L 501.5200, L501.1400, L101.9900, L3410.2350, L501.6710, L503.0106, L503.6550, L100.0100, L3100.1850, L504.2610, L501.2300, L503.6030, L100.9950, L500.4050 ####[facility] [address] [place], [address] CRPon 01-23-2025 C-REACTIVE PROT 10.50 mg/L High 0.0-3.0 [facility] Comment on above: Performed By: #### L 501.5200, L501.1400, L101.9900, L3410.2350, L501.6710, L503.0106, L503.6550, L100.0100, L3100.1850, L504.2610, L501.2300, L503.6030, L100.9950, L500.4050 ####[facility] [address] [place], [place], [phone] Carbon dioxide, total [Moles /volume] in Central venous bloodOrdered By: John Jang on 01-23-2025 CO2 [Moles/Vol] 20.9 mmol/L Low 21.0-32.0 [facility] Chloride assayOrdered By: Natalya Jang on 01-23-2025 Chloride [Moles/Vol] 100 mmol/L 98-108 [facility] Comprehensive Metabolic Prof ilon 01-23-2025 Albumin [Mass/Vol] 4.1 g/dL Normal 3.4-4.8 [facility] Comment on above: Performed By: #### L 501.5200, L501.1400, L101.9900, L3410.2350, L501.6710, L503.0106, L503.6550, L100.0100, L3100.1850, L504.2610, L501.2300, L503.6030, L100.9950, L500.4050 ####[facility] [address] [place], [place], [phone]) Albumin/Globulin [Mass ratio] 1.2 {ratio} Normal 0.9-2.4 [facility] Comment on above: Performed By: #### L 501.5200, L501.1400, L101.9900, L3410.2350, L501.6710, L503.0106, L503.6550, L100.0100, L3100.1850, L504.2610, L501.2300, L503.6030, L100.9950, L500.4050 ####[facility] [address], [address] ALK PHOS 77 U/L Normal 35-104 [facility] Comment on above: Performed By: #### L 501.5200, L501.1400, L101.9900, L3410.2350, L501.6710, L503.0106, L503.6550, L100.0100, L3100.1850, L504.2610, L501.2300, L503.6030, L100.9950, L500.4050 ####[facility] [address] [place], [address] ALT [Catalytic activity/Vol] 6 U/L Normal <=34 [facility] Comment on above: Performed By: #### L 501.5200, L501.1400, L101.9900, L3410.2350, L501.6710, L503.0106, L503.6550, L100.0100, L3100.1850, L504.2610, L501.2300, L503.6030, L100.9950, L500.4050 ####[facility] [address] [place], [address] AST [Catalytic activity/Vol] 15 U/L Normal <=31 [facility] Comment on above: Performed By: #### L 501.5200, L501.1400, L101.9900, L3410.2350, L501.6710, L503.0106, L503.6550, L100.0100, L3100.1850, L504.2610, L501.2300, L503.6030, L100.9950, L500.4050 ####[facility] [address] [place], [place], [phone] Bilirubin [Mass/Vol] 0.21 mg/dL Normal 0.00-1.30 [facility] Comment on above: Performed By: #### L 501.5200, L501.1400, L101.9900, L3410.2350, L501.6710, L503.0106, L503.6550, L100.0100, L3100.1850, L504.2610, L501.2300, L503.6030, L100.9950, L500.4050 ####[facility] [address] [place], [address] BUN/CRE 30.5 RATIO High 10-20 [facility] Comment on above: Performed By: #### L 501.5200, L501.1400, L101.9900, L3410.2350, L501.6710, L503.0106, L503.6550, L100.0100, L3100.1850, L504.2610, L501.2300, L503.6030, L100.9950, L500.4050 ####[facility] [address] [place], [address] Calcium [Mass/Vol] 9.7 mg/dL Normal 7.6-11.0 [facility] Comment on above: Performed By: #### L 501.5200, L501.1400, L101.9900, L3410.2350, L501.6710, L503.0106, L503.6550, L100.0100, L3100.1850, L504.2610, L501.2300, L503.6030, L100.9950, L500.4050 ####[facility] [address] [place], [address] Chloride [Moles/Vol] 100 mmol/L Normal 98-108 [facility] Comment on above: Performed By: #### L 501.5200, L501.1400, L101.9900, L3410.2350, L501.6710, L503.0106, L503.6550, L100.0100, L3100.1850, L504.2610, L501.2300, L503.6030, L100.9950, L500.4050 ####[facility] [address] [place], [address] CO2 [Moles/Vol] 20.9 mmol/L Low 21.0-32.0 [facility] Comment on above: Performed By: #### L 501.5200, L501.1400, L101.9900, L3410.2350, L501.6710, L503.0106, L503.6550, L100.0100, L3100.1850, L504.2610, L501.2300, L503.6030, L100.9950, L500.4050 ####[facility] [address] [place], [place], [phone](725) Creatinine [Mass/Vol] 0.91 mg/dL Normal 0.70-1.20 [facility] Comment on above: Performed By: #### L 501.5200, L501.1400, L101.9900, L3410.2350, L501.6710, L503.0106, L503.6550, L100.0100, L3100.1850, L504.2610, L501.2300, L503.6030, L100.9950, L500.4050 ####[facility] [address] [place], [place], [phone] GAP 11 Normal 5-15 [facility] Comment on above: Performed By: #### L 501.5200, L501.1400, L101.9900, L3410.2350, L501.6710, L503.0106, L503.6550, L100.0100, L3100.1850, L504.2610, L501.2300, L503.6030, L100.9950, L500.4050 ####[facility] [address] [place], [place], [phone] GFR/1.73 sq M.predicted among non-blacks MDRD (S/P/Bld) [Vol rate/Area] 69 mL/min/{1.73_m2} Normal >60 [facility] Comment on above: Result Comment: mL/m in/1.73m2 CKD-EPI Creatinine Equation (2020) Performed By: #### L 501.5200, L501.1400, L101.9900, L3410.2350, L501.6710, L503.0106, L503.6550, L100.0100, L3100.1850, L504.2610, L501.2300, L503.6030, L100.9950, L500.4050 ####[facility] [address] [place], [address] Globulin (S) [Mass/Vol] 3.5 g/dL Normal 2.2-4.2 [facility] Comment on above: Performed By: #### L 501.5200, L501.1400, L101.9900, L3410.2350, L501.6710, L503.0106, L503.6550, L100.0100, L3100.1850, L504.2610, L501.2300, L503.6030, L100.9950, L500.4050 ####[facility] [address] [place], [place], [phone](304) Glucose [Mass/Vol] 82 mg/dL Normal 70-99 [facility] Comment on above: Performed By: #### L 501.5200, L501.1400, L101.9900, L3410.2350, L501.6710, L503.0106, L503.6550, L100.0100, L3100.1850, L504.2610, L501.2300, L503.6030, L100.9950, L500.4050 ####[facility] [address] [place], [place], [phone](950) Potassium [Moles/Vol] 4.6 mmol/L Normal 3.3-5.1 [facility] Comment on above: Performed By: #### L 501.5200, L501.1400, L101.9900, L3410.2350, L501.6710, L503.0106, L503.6550, L100.0100, L3100.1850, L504.2610, L501.2300, L503.6030, L100.9950, L500.4050 ####[facility] [address] [place], [place], [phone] Sodium [Moles/Vol] 131 mmol/L Low 133-145 [facility] Comment on above: Performed By: #### L 501.5200, L501.1400, L101.9900, L3410.2350, L501.6710, L503.0106, L503.6550, L100.0100, L3100.1850, L504.2610, L501.2300, L503.6030, L100.9950, L500.4050 ####[facility] [address] [place], [place], [phone] T PROT 7.6 g/dL Normal 5.9-8.4 [facility] Comment on above: Performed By: #### L 501.5200, L501.1400, L101.9900, L3410.2350, L501.6710, L503.0106, L503.6550, L100.0100, L3100.1850, L504.2610, L501.2300, L503.6030, L100.9950, L500.4050 ####[facility] [address] [place], [place], [phone] Urea nitrogen [Mass/Vol] 28 mg/dL High 4-19 [facility] Comment on above: Performed By: #### L 501.5200, L501.1400, L101.9900, L3410.2350, L501.6710, L503.0106, L503.6550, L100.0100, L3100.1850, L504.2610, L501.2300, L503.6030, L100.9950, L500.4050 ####[facility] [address] [place], [address] Eosinophil percentageOrdered By: John Jang on 01-23-2025 Eosinophils/100 WBC (Bld) 0.5 % 0-5 [facility] Erythrocyte Sed Rateon 01-23 SED RATE 32 mm/hr High 0-30 [facility] Comment on above: Performed By: #### L 501.5200, L501.1400, L101.9900, L3410.2350, L501.6710, L503.0106, L503.6550, L100.0100, L3100.1850, L504.2610, L501.2300, L503.6030, L100.9950, L500.4050 ####[facility] [address] [place], [address] Erythrocyte distribution wid th ratioOrdered By: John Jang on 01-23-2025 Erythrocyte distribution width (RBC) [Ratio] 21.7 % High 11.6-14.6 [facility] Erythrocyte distribution wid th standard deviationOrdered By: John Jang on 01-23-2025 Erythrocyte distribution width (RBC) [Ratio] 60.2 fl High 35.1-43.9 [facility] Erythrocyte sedimentation ra teOrdered By: John Jang on 01-23-2025 ESR (Bld) [Velocity] 32 mm/h High 0-30 [facility] Ferritinon 01-23-2025 Ferritin [Mass/Vol] 17 ng/mL Low 22-378 [facility] Comment on above: Performed By: #### L 501.5200, L501.1400, L101.9900, L3410.2350, L501.6710, L503.0106, L503.6550, L100.0100, L3100.1850, L504.2610, L501.2300, L503.6030, L100.9950, L500.4050 ####[facility] [address] [place], [address] Glomerular filtration rate ( GFR) estimation/1.73 sq m using serum, plasma, or whole bOrdered By: John Jang on 01-23-2025 GFR/1.73 sq M.predicted among non-blacks MDRD (S/P/Bld) [Vol rate/Area] 69 mL/min/{1.73_m2} >60 [facility] Comment on above: mL/min/1.73m2 CKD-EP I Creatinine Equation (2020) Hematocrit Auto (Bld) [Volum e fraction]Ordered By: John Jang on 01-23-2025 Hematocrit (Bld) [Volume fraction] 32.5 % Low 37-47 [facility] Hemoglobin measurementOrdere d By: John Jang on 01-23-2025 Hemoglobin (Bld) [Mass/Vol] 9.4 g/dL Low 12.0-15.0 [facility] Immature granulocytes/100 WB C Auto (Bld)Ordered By: John Jang on 01-23-2025 Immature granulocytes/100 WBC (Bld) 0.400 % 0.0-0.9 [facility] Comment on above: IG% - Immature Granu locytes (promyelocytes, myelocytes and metamyelocytes) > 1% indicates that a LEFT SHIFT is Present. Iron measurement (mass/mass) Ordered By: John Jang on 01-23-2025 Iron (Unsp spec) [Mass/Mass] 27 ug/dL Low 50-170 [facility] Iron+Iron Binding Capacityon 01-23-2025 Iron [Mass/Vol] 27 ug/dL Low 50-170 [facility] Comment on above: Performed By: #### L 501.5200, L501.1400, L101.9900, L3410.2350, L501.6710, L503.0106, L503.6550, L100.0100, L3100.1850, L504.2610, L501.2300, L503.6030, L100.9950, L500.4050 ####[facility] [address] [place], [place], [phone] IRON SATURATION 7.0 Low 13-59 [facility] Comment on above: Performed By: #### L 501.5200, L501.1400, L101.9900, L3410.2350, L501.6710, L503.0106, L503.6550, L100.0100, L3100.1850, L504.2610, L501.2300, L503.6030, L100.9950, L500.4050 ####[facility] [address] [place], [place], [phone] TIBC 365 ug/dL Normal 250-450 [facility] Comment on above: Performed By: #### L 501.5200, L501.1400, L101.9900, L3410.2350, L501.6710, L503.0106, L503.6550, L100.0100, L3100.1850, L504.2610, L501.2300, L503.6030, L100.9950, L500.4050 ####[facility] [address] [place], [place], [phone] UIBC 338 ug/dL Normal 228-428 [facility] Comment on above: Performed By: #### L 501.5200, L501.1400, L101.9900, L3410.2350, L501.6710, L503.0106, L503.6550, L100.0100, L3100.1850, L504.2610, L501.2300, L503.6030, L100.9950, L500.4050 ####[facility] [address] [place], [place], [phone] LDHon 01-23-2025 LDH 160 U/L Normal 84-246 [facility] Comment on above: Order Comment: 1 Performed By: #### L 501.5200, L501.1400, L101.9900, L3410.2350, L501.6710, L503.0106, L503.6550, L100.0100, L3100.1850, L504.2610, L501.2300, L503.6030, L100.9950, L500.4050 ####[facility] [address] [place], [place], [phone] Laboratory - Chemistry and C hemistry - challengeOrdered By: John Jang on 01-23-2025 AST [Catalytic activity/Vol] 15 U/L <32 [facility] Laboratory - Hematology and Cell countsOrdered By: John Jang on 01-23-2025 Anisocytosis Ql (Bld) 2+ [facility] Lactate dehydrogenase (LDH) measurementOrdered By: John Jang on 01-23-2025 LDH [Catalytic activity/Vol] 160 U/L 84-246 [facility] MCV (mean corpuscular volume ) determinationOrdered By: John Jang on 01-23-2025 MCV (RBC) [Entitic vol] 77.6 fL Low 81-99 [facility] Magnesiumon 01-23-2025 Magnesium [Mass/Vol] 2.0 mg/dL Normal 1.5-2.2 [facility] Comment on above: Performed By: #### L 501.5200, L501.1400, L101.9900, L3410.2350, L501.6710, L503.0106, L503.6550, L100.0100, L3100.1850, L504.2610, L501.2300, L503.6030, L100.9950, L500.4050 ####[facility] [address] [place], [place], [phone] Magnesium measurement (mass/ volume)Ordered By: John Jang on 01-23-2025 Magnesium (Unsp spec) [Mass/Vol] 2.0 mg/dL 1.5-2.2 [facility] Mean corpuscular hemoglobin (MCH) determinationOrdered By: John Jang on 01-23-2025 MCH (RBC) [Entitic mass] 22.4 pg Low 27.0-32.0 [facility] Mean corpuscular hemoglobin concentration (MCHC) determinationOrdered By: John Jang on 01-23-2025 MCHC (RBC) [Mass/Vol] 28.9 g/dL Low 32-36 [facility] Mean platelet volume determi nationOrdered By: John Jang on 01-23-2025 Platelet mean volume (Bld) [Entitic vol] 7.9 fL 6.2-12.0 [facility] Monocyte percentageOrdered B y: John Jang on 01-23-2025 Monocytes/100 WBC (Bld) 10.3 % High 0-10 [facility] Neutrophil percentageOrdered By: John Jang on 01-23-2025 Neutrophils/100 WBC (Bld) 53.5 % 47-70 [facility] No Panel InformationOrdered By: John Jang on 01-23-2025 Tissue Transglutaminase IgG Ab 2 U/mL 0-5 [facility] Comment on above: Negative 0 - 5 Weak Positive 6 - 9 Positive >9 Unsaturated Iron Binding Capacity 338 ug/dL 228-428 [facility] Nucleated red blood cell per centageOrdered By: John Jang on 01-23-2025 Nucleated RBC/100 WBC (Bld) [Ratio] 0 % 0-5 [facility] Oncology Visit Reporton 12-28 Oncology Visit Report Normal [facility] Phosphoruson 01-23-2025 Phosphate [Mass/Vol] 4.0 mg/dL Normal 2.7-4.5 [facility] Comment on above: Performed By: #### L 501.5200, L501.1400, L101.9900, L3410.2350, L501.6710, L503.0106, L503.6550, L100.0100, L3100.1850, L504.2610, L501.2300, L503.6030, L100.9950, L500.4050 ####[facility] [address] [place], [address] Platelet countOrdered By: Natalya Jang on 01-23-2025 Platelets (Bld) [#/Vol] 390 10*3/uL 150-450 [facility] Potassium measurement (mass/ volume)Ordered By: John Jang on 01-23-2025 Potassium (Unsp spec) [Mass/Vol] 4.6 mmol/L 3.3-5.1 [facility] RBC Auto (Bld) [#/Vol]Ordere d By: John Jang on 01-23-2025 RBC (Bld) [#/Vol] 4.19 10*6/uL Low 4.2-5.4 [facility] Retic Panelon 01-23-2025 IM RET FRACTION 20.90 High 3.00-15.90 [facility] Comment on above: Performed By: #### L 501.5200, L501.1400, L101.9900, L3410.2350, L501.6710, L503.0106, L503.6550, L100.0100, L3100.1850, L504.2610, L501.2300, L503.6030, L100.9950, L500.4050 ####[facility] [address] [place], [address] RET-HE 21.3 pg Low -35 [facility] Comment on above: Performed By: #### L 501.5200, L501.1400, L101.9900, L3410.2350, L501.6710, L503.0106, L503.6550, L100.0100, L3100.1850, L504.2610, L501.2300, L503.6030, L100.9950, L500.4050 ####[facility] [address] [place], [address] Retic Count 1.04 Normal 0.5-1.5 [facility] Comment on above: Performed By: #### L 501.5200, L501.1400, L101.9900, L3410.2350, L501.6710, L503.0106, L503.6550, L100.0100, L3100.1850, L504.2610, L501.2300, L503.6030, L100.9950, L500.4050 ####[facility] [address] [place], [address] Reticulocyte hemoglobin equi valent (RET-He) measurementOrdered By: John Jang on 01-23-2025 Hemoglobin (Reticulocytes) [Entitic mass] 21.3 pg Low 30-35 [facility] Reticulocytes Auto (Bld) [#/ Vol]Ordered By: John Jang on 01-23-2025 Reticulocytes/100 RBC (Bld) 1.04 % 0.5-1.5 [facility] Serum creatinine measurement (mass/volume)Ordered By: John Jang on 01-23-2025 Creatinine [Mass/Vol] 0.91 mg/dL 0.70-1.20 [facility] Serum globulin measurementOr dered By: John Jang on 01-23-2025 Globulin (S) [Mass/Vol] 3.5 g/dL 2.2-4.2 [facility] Serum glucose measurement (m ass/volume)Ordered By: John Jang on 01-23-2025 Glucose [Mass/Vol] 82 mg/dL 70-99 [facility] Serum or plasma C reactive p rotein measurement (mass/volume)Ordered By: John Jang on 01-23-2025 CRP [Mass/Vol] 10.50 mg/L High 0.0-3.0 [facility] Serum or plasma alanine han otransferase (ALT) measurementOrdered By: John Jang on 01-23-2025 ALT [Catalytic activity/Vol] 6 U/L <35 [facility] Serum or plasma albumin zara urement (mass/volume)Ordered By: John Jang on 01-23-2025 Albumin [Mass/Vol] 4.1 g/dL 3.4-4.8 [facility] Serum or plasma albumin/glob ulin mass ratioOrdered By: John Jang on 01-23-2025 Albumin/Globulin [Mass ratio] 1.2 {ratio} 0.9-2.4 [facility] Serum or plasma alkaline alvarez sphatase measurementOrdered By: John Jang on 01-23-2025 ALP [Catalytic activity/Vol] 77 U/L 35-104 [facility] Serum or plasma calcium zara urement (mass/volume)Ordered By: John Jang on 01-23-2025 Calcium [Mass/Vol] 9.7 mg/dL 7.6-11.0 [facility] Serum or plasma ferritin ryan surement (mass/volume)Ordered By: John Jang on 01-23-2025 Ferritin [Mass/Vol] 17 ng/mL Low 22-378 [facility] Serum or plasma iron saturat ion measurement (mass fraction)Ordered By: John Jang on 01-23-2025 Iron saturation [Mass fraction] 7.0 % Low 13-59 [facility] Serum or plasma urea nitroge n measurement (mass/volume)Ordered By: John Jang on 01-23-2025 Urea nitrogen [Mass/Vol] 28 mg/dL High 4-19 [facility] Serum or plasma uric acid me asurement (mass/volume)Ordered By: John Jang on 01-23-2025 Urate [Mass/Vol] 4.0 mg/dL 2.6-6.0 [facility] Comment on above: The drugs N-Acetylcy steine and Metamizole may falsely depress this assay. Serum tissue transglutaminas e (tTG) IgA antibody assay (units/volume)Ordered By: John Jang on 01-23-2025 tTG IgA Qn (S) <2 U/mL 0-3 [facility] Comment on above: Negative 0 - 3 Weak Positive 4 - 10 Positive >10 Tissue Transglutaminase (tTG) has been identified as the endomysial antigen. Studies have demonstr- ated that endomysial IgA antibodies have over 99% specificity for gluten sensitive enteropathy. Sodium levelOrdered By: Maycol Jang on 01-23-2025 Sodium [Moles/Vol] 131 mmol/L Low 133-145 [facility] Total proteinOrdered By: Arian Jang on 01-23-2025 Protein [Mass/Vol] 7.6 g/dL 5.9-8.4 [facility] Uric Acidon 01-23-2025 URIC 4.0 mg/dL Normal 2.6-6.0 [facility] Comment on above: Result Comment: The drugs N-Acetylcysteine and Metamizole may falselydepress this assay. Performed By: #### L 501.5200, L501.1400, L101.9900, L3410.2350, L501.6710, L503.0106, L503.6550, L100.0100, L3100.1850, L504.2610, L501.2300, L503.6030, L100.9950, L500.4050 ####[facility] [id number] [place], [place], [id number] Vitamin B12on 01-23-2025 Cobalamin (Vitamin B12) [Mass/Vol] 454 pg/mL Normal 180-914 [facility] Comment on above: Performed By: #### L 501.5200, L501.1400, L101.9900, L3410.2350, L501.6710, L503.0106, L503.6550, L100.0100, L3100.1850, L504.2610, L501.2300, L503.6030, L100.9950, L500.4050 ####[facility] [id number] [place], [place], [id number] Vitamin B12 ser/plasOrdered By: John Jang on 01-23-2025 Cobalamin (Vitamin B12) [Mass/Vol] 454 pg/mL 180-914 [facility] White blood cell (WBC) count Ordered By: John Jang on 01-23-2025 WBC (Bld) [#/Vol] 8.6 10*3/uL 4.4-11.0 [facility] Absolute lymphocyte countOrd ered By: Clau Mcclain on 01-03-2025 Lymphocytes Auto (Unsp spec) [#/Vol] 3.12 10*3/uL 0.83-4.51 [facility] Absolute neutrophil countOrd ered By: Clau Mcclain on 01-03-2025 Neutrophils (Bld) [#/Vol] 5.0 10*3/uL 2.0-7.7 [facility] Automated lymphocyte count a s percentage of total leukocytesOrdered By: Clau Mcclain on 01-03-2025 Lymphocytes/100 WBC Auto (Unsp spec) 33.9 % 19-41 [facility] Basophil percentageOrdered B y: Clau Mcclain on 01-03-2025 Basophils/100 WBC (Bld) 0.2 % 0-1 [facility] CBC W/Diff, Automatedon 05-0 Anisocytosis Ql (Bld) 1+ Normal [facility] Comment on above: Performed By: #### L 100.0100 ####[facility] [id number] [place], [address] Eosinophil percentageOrdered By: Clau Mcclain on 01-03-2025 Eosinophils/100 WBC (Bld) 1.1 % 0-5 [facility] Erythrocyte distribution wid th ratioOrdered By: Clau Mcclain on 01-03-2025 Erythrocyte distribution width (RBC) [Ratio] 22.5 % High 11.6-14.6 [facility] Erythrocyte distribution wid th standard deviationOrdered By: Clau Mcclain on 01-03-2025 Erythrocyte distribution width (RBC) [Ratio] 61.8 fl High 35.1-43.9 [facility] Gastroenterology Visit Repor ton 01-03-2025 Gastroenterology Visit Report Normal [facility] Hematocrit Auto (Bld) [Volum e fraction]Ordered By: Clau Mcclian on 01-03-2025 Hematocrit (Bld) [Volume fraction] 30.5 % Low 37-47 [facility] Hemoglobin measurementOrdere d By: Clau Mcclain on 01-03-2025 Hemoglobin (Bld) [Mass/Vol] 9.1 g/dL Low 12.0-15.0 [facility] Immature granulocytes/100 WB C Auto (Bld)Ordered By: Clau Mcclain on 01-03-2025 Immature granulocytes/100 WBC (Bld) 0.700 % 0.0-0.9 [facility] Comment on above: IG% - Immature Granu locytes (promyelocytes, myelocytes and metamyelocytes) > 1% indicates that a LEFT SHIFT is Present. Laboratory - Hematology and Cell countsOrdered By: Clau Mcclain on 01-03-2025 Anisocytosis Ql (Bld) 1+ [facility] MCV (mean corpuscular volume ) determinationOrdered By: Clau Mcclain on 01-03-2025 MCV (RBC) [Entitic vol] 75.3 fL Low 81-99 [facility] Mean corpuscular hemoglobin (MCH) determinationOrdered By: Clau Mcclain on 01-03-2025 MCH (RBC) [Entitic mass] 22.5 pg Low 27.0-32.0 [facility] Mean corpuscular hemoglobin concentration (MCHC) determinationOrdered By: Clau Mcclain on 01-03-2025 MCHC (RBC) [Mass/Vol] 29.8 g/dL Low 32-36 [facility] Mean platelet volume determi nationOrdered By: Clau Mcclain on 01-03-2025 Platelet mean volume (Bld) [Entitic vol] 7.7 fL 6.2-12.0 [facility] Monocyte percentageOrdered B y: Clau Mcclain on 01-03-2025 Monocytes/100 WBC (Bld) 9.2 % 0-10 [facility] Neutrophil percentageOrdered By: Clau Mcclain on 01-03-2025 Neutrophils/100 WBC (Bld) 54.9 % 47-70 [facility] Nucleated red blood cell per centageOrdered By: Clau Mcclain on 01-03-2025 Nucleated RBC/100 WBC (Bld) [Ratio] 0 % 0-5 [facility] Platelet countOrdered By: Mann Mcclain on 01-03-2025 Platelets (Bld) [#/Vol] 410 10*3/uL 150-450 [facility] RBC Auto (Bld) [#/Vol]Ordere d By: Clau Mcclain on 01-03-2025 RBC (Bld) [#/Vol] 4.05 10*6/uL Low 4.2-5.4 [facility] White blood cell (WBC) count Ordered By: Clau Mcclain on 01-03-2025 WBC (Bld) [#/Vol] 9.2 10*3/uL 4.4-11.0 [facility] 25([place])D3 [facility] 25-hydroxyvitamin D3 [Mass/Vol] 79.0 ng/mL Normal 31.0-80.0 [facility] Comment on above: Order Comment: Speci men Type: BLOOD SPECIMEN Ordering Facility: [facility] Address: [address] [place] [address] Result Comment: Clas sification of 25 [place] Vitamin D status: Deficiency/Insufficiency: < or = 30 ng/ml. Sufficiency/Optimal Levels: 31-80 ng/mL Toxicity: > 100 ng/mL. Test performed by chemiluminescent immunoassay. Performed By: #### 1 989-3 #### [facility] CLIA [id number] [address] [place] [address] [place] CBC W Auto Differential pane l (Bld)on 12-26-2024 Basophils (Bld) [#/Vol] 0.04 10*3/uL [facility] Basophils/100 WBC (Bld) 0.3 % [facility] Differential cell count method Nom (Bld) Auto [facility] Eosinophils (Bld) [#/Vol] [facility] Eosinophils/100 WBC (Bld) 0.2 % [facility] Erythrocyte distribution width (RBC) [Ratio] 23.2 % High 11.5 - 15.0 % [facility] Hematocrit (Bld) [Volume fraction] 33.4 % Low 36.0 - 46.0 % [facility] Hemoglobin (Bld) [Mass/Vol] 9.9 g/dL Low 11.5 - 15.5 g/dL [facility] Immature granulocytes (Bld) [#/Vol] 0.06 10*3/uL [facility] Immature granulocytes/100 WBC (Bld) 0.5 % [facility] Interpretation and review of laboratory results Abnormal [facility] Lymphocytes (Bld) [#/Vol] 2.96 10*3/uL [facility] Lymphocytes/100 WBC (Bld) 25.9 % [facility] MCH (RBC) [Entitic mass] 22 pg Low 26.0 - 34.0 pg [facility] MCHC (RBC) [Mass/Vol] 29.6 g/dL Low 30.5 - 36.0 g/dL [facility] MCV (RBC) [Entitic vol] 74.1 fL Low 80.0 - 100.0 fL [facility] Monocytes (Bld) [#/Vol] 1.07 10*3/uL High [facility] Monocytes/100 WBC (Bld) 9.4 % [facility] Neutrophils (Bld) [#/Vol] 7.28 10*3/uL [facility] Neutrophils/100 WBC (Bld) 63.7 % [facility] Nucleated RBC (Bld) [#/Vol] [facility] Nucleated RBC/100 WBC (Bld) [Ratio] 0 % /100 WBC [facility] Platelet mean volume (Bld) [Entitic vol] 7.5 fL Low 9.0 - 12.7 fL [facility] Platelets (Bld) [#/Vol] 435 10*3/uL High [facility] RBC (Bld) [#/Vol] 4.51 10*6/uL 3.90 - 5.2 0 m/uL [facility] WBC (Bld) [#/Vol] 11.43 10*3/uL High [facility] Basophils (Bld) [#/Vol] 0.04 10*3/uL Normal <0.11 [facility] Comment on above: Order Comment: Speci men Type: BLOOD SPECIMEN Ordering Facility: [facility] Address: [facility] [place] [address] Performed By: #### 5 7021-8 #### [facility] CLIA [id number] [address] [place] [address] [place] Basophils/100 WBC (Bld) 0.3 % Normal [facility] Comment on above: Order Comment: Speci men Type: BLOOD SPECIMEN Ordering Facility: [facility] Address: [address] [place] [address] Performed By: #### 5 7021-8 #### [facility] CLIA [id number] [address] [place] [address] [place] Differential cell count method Nom (Bld) Auto Normal [facility] Comment on above: Order Comment: Speci men Type: BLOOD SPECIMEN Ordering Facility: [facility] Address: [address] [place] [address] Performed By: #### 5 7021-8 #### [facility] CLIA [id number] [address] [place] [address] [place] Eosinophils (Bld) [#/Vol] 10*3/uL Normal <0.46 [facility] Comment on above: Order Comment: Speci men Type: BLOOD SPECIMEN Ordering Facility: [facility] Address: [address] [place] [address] Performed By: #### 5 7021-8 #### [facility] CLIA [id number] [address] [place] [address] [place] Eosinophils/100 WBC (Bld) 0.2 % Normal [facility] Comment on above: Order Comment: Speci men Type: BLOOD SPECIMEN Ordering Facility: [facility] Address: [address] [place] [address] Performed By: #### 5 7021-8 #### [facility] CLIA [id number] [address] [place] [address] [place] Erythrocyte distribution width (RBC) [Ratio] 23.2 % High 11.5-15.0 [facility] Comment on above: Order Comment: Speci men Type: BLOOD SPECIMEN Ordering Facility: [facility] Address: [address] [place] [address] Performed By: #### 5 7021-8 #### [facility] CLIA [id number] [address] [place] [address] [place] Hematocrit (Bld) [Volume fraction] 33.4 % Low 36.0-46.0 [facility] Comment on above: Order Comment: Speci men Type: BLOOD SPECIMEN Ordering Facility: [facility] Address: [address] [place] [address] Performed By: #### 5 7021-8 #### [facility] CLIA [id number] [address] [place] [address] [place] Hemoglobin (Bld) [Mass/Vol] 9.9 g/dL Low 11.5-15.5 [facility] Comment on above: Order Comment: Speci men Type: BLOOD SPECIMEN Ordering Facility: [facility] Address: [address] [place] [address] Performed By: #### 5 7021-8 #### [facility] CLIA [id number] [address] [place] [address] [place] Immature granulocytes (Bld) [#/Vol] 0.06 10*3/uL Normal <0.10 [facility] Comment on above: Order Comment: Speci men Type: BLOOD SPECIMEN Ordering Facility: [facility] Address: [address] [place] [address] Performed By: #### 5 7021-8 #### [facility] CLIA [id number] [address] [place] [address] [place] Immature granulocytes/100 WBC (Bld) 0.5 % Normal [facility] Comment on above: Order Comment: Speci men Type: BLOOD SPECIMEN Ordering Facility: [facility] Address: [address] [place] [address] Performed By: #### 5 7021-8 #### [facility] CLIA [id number] [address] [place] [address] [place] Lymphocytes (Bld) [#/Vol] 2.96 10*3/uL Normal 1.00-4.00 [facility] Comment on above: Order Comment: Speci men Type: BLOOD SPECIMEN Ordering Facility: [facility] Address: [address] [place] [address] Performed By: #### 5 7021-8 #### [facility] CLIA [id number] [address] [place] [address] [place] Lymphocytes/100 WBC (Bld) 25.9 % Normal [facility] Comment on above: Order Comment: Speci men Type: BLOOD SPECIMEN Ordering Facility: [facility] Address: [address] [place] [address] Performed By: #### 5 7021-8 #### [facility] CLIA [id number] [address] [place] [address] [place] MCH (RBC) [Entitic mass] 22.0 pg Low 26.0-34.0 [facility] Comment on above: Order Comment: Speci men Type: BLOOD SPECIMEN Ordering Facility: [facility] Address: [address] [place] [address] Performed By: #### 5 7021-8 #### [facility] CLIA [id number] [address] [place] [address] [place] MCHC (RBC) [Mass/Vol] 29.6 g/dL Low 30.5-36.0 [facility] Comment on above: Order Comment: Speci men Type: BLOOD SPECIMEN Ordering Facility: [facility] Address: [address] [place] [address] Performed By: #### 5 7021-8 #### [facility] CLIA [id number] [address] [place] [address] [place] MCV (RBC) [Entitic vol] 74.1 fL Low 80.0-100.0 C [facility] Comment on above: Order Comment: Speci men Type: BLOOD SPECIMEN Ordering Facility: [facility] Address: [address] [place] [address] Performed By: #### 5 7021-8 #### [facility] CLIA [id number] [address] [place] [address] [place] Monocytes (Bld) [#/Vol] 1.07 10*3/uL High <0.87 [facility] Comment on above: Order Comment: Speci men Type: BLOOD SPECIMEN Ordering Facility: [facility] Address: [address] [place] [address] Performed By: #### 5 7021-8 #### [facility] CLIA [id number] [address] [place] [address] [place] Monocytes/100 WBC (Bld) 9.4 % Normal C [facility] Comment on above: Order Comment: Speci men Type: BLOOD SPECIMEN Ordering Facility: [facility] Address: [address] [place] [address] Performed By: #### 5 7021-8 #### [facility] CLIA [id number] [address] [place] [address] [place] Neutrophils (Bld) [#/Vol] 7.28 10*3/uL Normal 1.45-7.50 [facility] Comment on above: Order Comment: Speci men Type: BLOOD SPECIMEN Ordering Facility: [facility] Address: [address] [place] [address] Performed By: #### 5 7021-8 #### [facility] CLIA [id number] [address] [place] [address] [place] Neutrophils/100 WBC (Bld) 63.7 % Normal [facility] Comment on above: Order Comment: Speci men Type: BLOOD SPECIMEN Ordering Facility: [facility] Address: [address] [place] [address] Performed By: #### 5 7021-8 #### [facility] CLIA [id number] [address] [place] [address] [place] Nucleated RBC (Bld) [#/Vol] 10*3/uL Normal <0.01 [facility] Comment on above: Order Comment: Speci men Type: BLOOD SPECIMEN Ordering Facility: [facility] Address: [address] [place] [address] Performed By: #### 5 7021-8 #### [facility] CLIA [id number] [address] [place] [address] [place] Nucleated RBC/100 WBC (Bld) [Ratio] 0.0 /100 WBC Normal [facility] Comment on above: Order Comment: Speci men Type: BLOOD SPECIMEN Ordering Facility: [facility] Address: [address] [place] [address] Performed By: #### 5 7021-8 #### [facility] CLIA [id number] [address] [place] [address] [place] Platelet mean volume (Bld) [Entitic vol] 7.5 fL Low 9.0-12.7 [facility] Comment on above: Order Comment: Speci men Type: BLOOD SPECIMEN Ordering Facility: [facility] Address: [address] [place] [address] Performed By: #### 5 7021-8 #### [facility] CLIA [id number] [address] [place] [address] [place] Platelets (Bld) [#/Vol] 435 10*3/uL High 150-400 [facility] Comment on above: Order Comment: Speci men Type: BLOOD SPECIMEN Ordering Facility: [facility] Address: [address] [place] [address] Performed By: #### 5 7021-8 #### [facility] CLIA [id number] [address] [place] [address] [place] RBC (Bld) [#/Vol] 4.51 10*6/uL Normal 3.90-5.20 [facility] Comment on above: Order Comment: Speci men Type: BLOOD SPECIMEN Ordering Facility: [facility] Address: [address] [place] [address] Performed By: #### 5 7021-8 #### [facility] CLIA [id number] [address] [place] [address] [place] WBC (Bld) [#/Vol] 11.43 10*3/uL High 3.70-11.00 [facility] Comment on above: Order Comment: Speci men Type: BLOOD SPECIMEN Ordering Facility: [facility] Address: [address] [place] [address] Performed By: #### 5 7021-8 #### [id number] [address] [place] [address] [place] CNOVon 12-26-2024 CNOV Office Visit (RHWSTR ) WINTER JOY ([id number]) 1955 F Date Time Provider Department 12/26/24 11:00 AM ISABEL CERON RHWSTR During your visit today, we recorded the following information about you: Pulse Respiration Blood pressure Weight 80/minute 16/minute 144/79 103 kg Isabel Ceron PA-C 01/02/2025 4:18 PM Addendum Rheumatology CONSULTATION Date of Service: 12/26/2024 Patient: Winter Joy Medical Record: [id number] Primary Care Physician: Janet Valencia DO Last Rheumatology visit: 04/22/2023 (with Génesis Ray) Recording using [employer] software for draft documentation of the visit was discussed with the patient/authorized customer development representative; all questions welcomed and answered. Patient/authorized customer development representative agreed to proceed History of Present Illness Winter is a 69-year-old female with a history of Sjogren's syndrome, osteoarthritis, and positive rheumatoid factor, presenting for follow-up. Winter reports a current pain level of 10 (Generalized). She describes the pain as Throbbing. Increased pain since fall 3 weeks ago. She is currently taking diclofenac sodium, methylprednisolone. Winter is RF positive - 52 (04/22/2023). Her most recent FLAKITA was positive (04/21/2016). Winter reports worsening joint pain primarily from the knees down, with the right knee being more problematic. She attributes the increase in pain to a fall 3-4 weeks ago. She describes the fall as sudden, occurring after experiencing dizziness while walking in her home. She landed with full weight on her right leg, which gave out beneath her. She was unable to get up and had to wait for assistance. She was evaluated by an market research specialist who confirmed no fractures or tears, only bruising. Her R TKA was not effective Since the fall, she reports worsening pain described as burning and aching in both upper outer legs, with numbness in her hands and feet. She also has pain in her knees, bilaterally. She has a history of neuropathy in her feet and has not had recent EMG or nerve studies. She has a history of Right knee replacement and was previously receiving injections for osteoarthritis but was informed that injections are not possible in the replaced knee. She has tried gabapentin in the past without relief. She also reports chronic lower back pain due to degenerative disc disease and is under pain management care. She experiences occasional flare-ups of back pain. Winter reports symptoms consistent with Sjogren's syndrome, including dry mouth, but denies dry eyes. She manages dry mouth by drinking water. She denies any current rashes, nail changes, or eye pain. She reports recent episodes of hypotension, hypokalemia, and hypoglycemia attributed to dehydration. She has increased her water intake but experiences urinary incontinence despite taking oxybutynin and another unspecified medication. She notes a decrease in appetite and occasional diarrhea but denies hematochezia or dysuria. She expresses concern about potential depression due to recent life stressors, including family dynamics and housing issues. She denies chest pain, dyspnea, or cough and reports stable asthma symptoms. She was previously followed by pulmonology but was discharged from care. 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 Pain Evaluation 05/18/2019 05/23/2020 11/21/2020 04/23/2022 12/26/2024 Pain Evaluation Pain Score 9 3 8 8 10 Location Knee-Left Back-Lower Other: See Comment Other: See Comment Generalized Location Comment ARTHRITIS; SHOULDER LEFT SIDE PAIN FROM TIP OF MY TOE TO TOP OF MY HEAD; LT KNEE Description Aching Aching Tingling;Other: See comment;Sharp Sharp Throbbing Duration (#) 3 1 1 Duration (Timeframe) Months Days Months Months Frequency Continuous Continuous Continuous Intervention Medication Medication Patient-Entered Data None Review of Systems Review of Systems CONSTITUTION: HEENT: Positive for: Dry mouth Negative for: Mouth sores RESPIRATORY: Negative for: Cough and Shortness of breath GASTROINTESTINAL: Positive for: Diarrhea Negative for: Melena MUSCULOSKELETAL: Positive for: Arthralgias and Myalgias NEUROLOGICAL: Positive for: Numbness SKIN: Negative for: Rash and Nail changes EYES: Positive for: Eye dryness Negative for: Eye pain CARDIOVASCULAR: Negative for: Chest pain and Leg swelling GENITOURINARY: Negative for: Dysuria and Hematuria HEMATOLOGIC/LYMPHATIC: All other reviewed and negative other than HPI. Past Medical History (more content not included)... Normal [facility] CRP SerPl-mCncon 12-26-2024 CRP [Mass/Vol] 3.3 mg/dL High <0.9 [facility] Comment on above: Order Comment: Speci men Type: BLOOD SPECIMEN Ordering Facility: [facility] Address: [address] [place] [address] Performed By: #### 1 988-5, 89606-6 #### [facility] CLIA [id number] [address] [place] [address] [place] Comprehensive metabolic 2000 panelOrdered By: Nadine Lake on 12-26-2024 Albumin [Mass/Vol] 4.3 g/dL 3.9 - 4.9 g/dL [facility] ALP [Catalytic activity/Vol] 94 U/L 34 - 123 U/L [facility] ALT [Catalytic activity/Vol] 7 U/L 7 - 38 U/L [facility] Anion gap [Moles/Vol] 11 mmol/L 8 - 15 mmol/L [facility] AST [Catalytic activity/Vol] 12 U/L Low 13 - 35 U/L [facility] Bilirubin [Mass/Vol] 0.2 mg/dL 0.2 - 1 .3 mg/dL [facility] Calcium [Mass/Vol] 10 mg/dL 8.5 - 10. 2 mg/dL [facility] Chloride [Moles/Vol] 97 mmol/L Low 98 - 10 7 mmol/L [facility] CO2 [Moles/Vol] 26 mmol/L 22 - 30 mmol/L [facility] Creatinine [Mass/Vol] 0.62 mg/dL 0.58 - 0.96 mg/dL [facility] GFR/1.73 sq M.predicted among non-blacks MDRD (S/P/Bld) [Vol rate/Area] 97 mL/min/{1.73_m2} - PINF [facility] Comment on above: Estimated Glomerular Filtration Rate (eGFR) is calculated using the 2020 CKD-EPI creatinine equation. This equation utilizes serum creatinine, sex, and age as parameters. The creatinine assay has traceable calibration to isotope dilution-mass spectrometry. Refer to KDIGO guidelines for clinical interpretation. In patients with unstable renal function, e.g. those with acute kidney injury, the eGFR may not accurately reflect actual GFR. Glucose [Mass/Vol] 108 mg/dL High 74 - 99 mg/dL [facility] Comment on above: The [place] Diab[employer] s Association (ADA) provides guidance for cutoff values for fasting glucose and random glucose. The ADA defines fasting as no caloric intake for at least 8 hours. Fasting plasma glucose results between 100 to 125 [...] Standards of Medical Care in Diabetes 2016, [place] [employer] Association. Diabetes Care. 2016.39(Suppl 1). Interpretation and review of laboratory results Abnormal [facility] Potassium [Moles/Vol] 4.3 mmol/L 3.7 - 5.1 mmol/L [facility] Protein [Mass/Vol] 8.2 g/dL High 6.3 - 8.0 g/dL [facility] Sodium [Moles/Vol] 134 mmol/L Low 136 - 144 mmol/L [facility] Urea nitrogen [Mass/Vol] 11 mg/dL 7 - 21 mg/dL [facility] Comprehensive metabolic 2000 panelon 12-26-2024 Albumin [Mass/Vol] 4.3 g/dL Normal 3.9-4.9 [facility] Comment on above: Order Comment: Speci men Type: BLOOD SPECIMEN Ordering Facility: [facility] Address: [facility] [place] [id number] Performed By: #### 2 4323-8 #### [facility] [facility] CLIA [id number] [address] [place] [address] [place] ALP [Catalytic activity/Vol] 94 U/L Normal 34-123 [facility] Comment on above: Order Comment: Speci men Type: BLOOD SPECIMEN Ordering Facility: [facility] Address: [address] [place] [address] Performed By: #### 2 4323-8 #### [facility] CLIA [id number] [address] [place] [address] [place] ALT [Catalytic activity/Vol] 7 U/L Normal 7-38 [facility] Comment on above: Order Comment: Speci men Type: BLOOD SPECIMEN Ordering Facility: [facility] Address: [address] [place] [address] Performed By: #### 2 4323-8 #### [facility] CLIA [id number] [address] [place] [address] [place] Anion gap [Moles/Vol] 11 mmol/L Normal 8-15 [facility] Comment on above: Order Comment: Speci men Type: BLOOD SPECIMEN Ordering Facility: [facility] Address: [address] [place] [address] Performed By: #### 2 4323-8 #### [facility] CLIA [id number] [address] [place] [address] [place] AST [Catalytic activity/Vol] 12 U/L Low 13-35 [facility] Comment on above: Order Comment: Speci men Type: BLOOD SPECIMEN Ordering Facility: [facility] Address: [address] [place] [address] Performed By: #### 2 4323-8 #### [facility] CLIA [id number] [address] [place] [address] [place] Bilirubin [Mass/Vol] 0.2 mg/dL Normal 0.2-1.3 [facility] Comment on above: Order Comment: Speci men Type: BLOOD SPECIMEN Ordering Facility: [facility] Address: [address] [place] [address] Performed By: #### 2 4323-8 #### [facility] CLIA [id number] [address] [place] [address] [place] Calcium [Mass/Vol] 10.0 mg/dL Normal 8.5-10.2 [facility] Comment on above: Order Comment: Speci men Type: BLOOD SPECIMEN Ordering Facility: [facility] Address: [address] [place] [address] Performed By: #### 2 4323-8 #### [facility] CLIA [id number] [address] [place] [address] [place] Chloride [Moles/Vol] 97 mmol/L Low 98-107 [facility] Comment on above: Order Comment: Speci men Type: BLOOD SPECIMEN Ordering Facility: [facility] Address: [address] [place] [address] Performed By: #### 2 4323-8 #### [id number] [address] [place] [address] [place] CO2 [Moles/Vol] 26 mmol/L Normal 22-30 [facility] Comment on above: Order Comment: Speci men Type: BLOOD SPECIMEN Ordering Facility: [facility] Address: [address] [place] [address] Performed By: #### 2 4323-8 #### [facility] [id number] [address] [place] [address] [place] Creatinine [Mass/Vol] 0.62 mg/dL Normal 0.58-0.96 [facility] Comment on above: Order Comment: Speci men Type: BLOOD SPECIMEN Ordering Facility: [facility] Address: [address] [place] [address] Performed By: #### 2 4323-8 #### [facility] CLIA [id number] [address] [place] [address] [place] Creatinine and Glomerular filtration rate.predicted panel (S/P/Bld) 97 mL/min/1.73m??? Normal >=60 [facility] Comment on above: Order Comment: Rafat castellon Type: BLOOD SPECIMEN Ordering Facility: [facility] Address: [address] [place] [address] Result Comment: Nathalie mated Glomerular Filtration Rate (eGFR) is calculated using the 2020 CKD-EPI creatinine equation. This equation utilizes serum creatinine, sex, and age as parameters. The creatinine assay has traceable calibration to isotope dilution-mass spectrometry. Refer to KDIGO guidelines for clinical interpretation. In patients with unstable renal function, e.g. those with acute kidney injury, the eGFR may not accurately reflect actual GFR. Performed By: #### 2 4323-8 #### [facility] [id number] [address] [place] [address] [place] Glucose [Mass/Vol] 108 mg/dL High 74-99 [facility] Comment on above: Order Comment: Rafat castellon Type: BLOOD SPECIMEN Ordering Facility: [facility] Address: [address] [place] [address] Result Comment: The [place] Diabetes Association (ADA) provides guidance for cutoff values for fasting glucose and random glucose. The ADA defines fasting as no caloric intake for at least 8 hours. Fasting plasma glucose results between 100 to 125 [...] Standards of Medical Care in Diabetes 2016, [place] [employer]. Diabetes Care. 2016.39(Suppl 1). Performed By: #### 2 4323-8 #### [facility] [id number] [address] [place] [address] [place] Potassium [Moles/Vol] 4.3 mmol/L Normal 3.7-5.1 [facility] Comment on above: Order Comment: Rafat castellon Type: BLOOD SPECIMEN Ordering Facility: [facility] Address: [address] [place] [address] Performed By: #### 2 4323-8 #### [facility] CLIA [id number] [address] [place] [address] [place] Protein [Mass/Vol] 8.2 g/dL High 6.3-8.0 [facility] Comment on above: Order Comment: Speci men Type: BLOOD SPECIMEN Ordering Facility: [facility] Address: [address] [place] [address] Performed By: #### 2 4323-8 #### [facility] CLIA [id number] [address] [place] [address] [place] Sodium [Moles/Vol] 134 mmol/L Low 136-144 [facility] Comment on above: Order Comment: Speci men Type: BLOOD SPECIMEN Ordering Facility: [facility] Address: [address] [place], [place] [address] Performed By: #### 2 4323-8 #### [facility] CLIA [id number] [address] [place] [address] [place] Urea nitrogen [Mass/Vol] 11 mg/dL Normal 7-21 [facility] Comment on above: Order Comment: Speci men Type: BLOOD SPECIMEN Ordering Facility: [facility] Address: [address] [place], [place] [address] Performed By: #### 2 4323-8 #### [facility] CLIA [id number] [address] [place] [address] [place] ESR Westergren method (Bld) [Velocity]on 12-26-2024 ESR (Bld) [Velocity] 38 mm/h High [facility] Interpretation and review of laboratory results Abnormal [facility] ESR (Bld) [Velocity] 38 mm/h High 0-20 [facility] Comment on above: Order Comment: Speci men Type: BLOOD SPECIMEN Ordering Facility: [facility] Address: [address] [place], [place] [address] Performed By: #### 4 537-7 #### [facility] CLIA [id number] [address] [place] [address] [place] [address] [place] Rheumatoid fact SerPl-aCncon 12-26-2024 Rheumatoid factor Qn 83 [IU]/mL High <16 [facility] Comment on above: Order Comment: Speci men Type: BLOOD SPECIMEN Ordering Facility: [facility] Address: [address] [place] [address] Performed By: #### 1 988-5, 94516-4 #### [facility] CLIA [id number] [address] [place], [place] [address] [address] [place] Knee 3 Viewson 12-19-2024 Knee 3 Views Normal [facility] Orthopedic Visit Reporton Orthopedic Visit Report Normal [facility] Absolute lymphocyte countOrd ered By: Clau Mcclain on 11-21-2024 Lymphocytes Auto (Unsp spec) [#/Vol] 3.12 10*3/uL 0.83-4.51 [facility] Absolute neutrophil countOrd ered By: Clau Mcclain on 11-21-2024 Neutrophils (Bld) [#/Vol] 4.4 10*3/uL 2.0-7.7 [facility] Automated lymphocyte count a s percentage of total leukocytesOrdered By: Clau Mcclain on 11-21-2024 Lymphocytes/100 WBC Auto (Unsp spec) 37.2 % 19-41 [facility] Basophil percentageOrdered B y: Clau Mcclain on 11-21-2024 Basophils/100 WBC (Bld) 0.4 % 0-1 [facility] Blood polychromasia detectio n by light microscopyOrdered By: Clau Mcclain on 11-21-2024 Polychromasia LM Ql (Bld) 1+ [facility] CBC W/Diff, Automatedon 10-28 Anisocytosis Ql (Bld) 1+ Normal [facility] Comment on above: Performed By: #### L 100.0100, L503.6030 ####[facility] [address] [place], [address] PLT EST A Normal ADEQ [facility] Comment on above: Performed By: #### L 100.0100, L503.6030 ####[facility] [address] [place], [address] POLYCHROMASIA 1+ Normal [facility] Comment on above: Performed By: #### L 100.0100, L503.6030 ####[facility] [address] [place], [address] Calculated total iron bindin g capacityOrdered By: Clau Mcclain on 11-21-2024 Total Iron Binding Capacity 403 ug/dL 250-450 [facility] Colonoscopy Reporton 025 Colonoscopy Report Normal [facility] EGD Reporton 11-21-2024 EGD Report Normal [facility] Eosinophil percentageOrdered By: Clau Mcclain on 11-21-2024 Eosinophils/100 WBC (Bld) 0.6 % 0-5 [facility] Erythrocyte distribution wid th ratioOrdered By: Clau Mcclain on 11-21-2024 Erythrocyte distribution width (RBC) [Ratio] 20.5 % High 11.6-14.6 [facility] Erythrocyte distribution wid th standard deviationOrdered By: Clau Mcclain on 11-21-2024 Erythrocyte distribution width (RBC) [Entitic vol] 54.2 fL High 35.1-43.9 [facility] Erythrocyte distribution width (RBC) [Ratio] 54.2 fl High 35.1-43.9 [facility] Hematocrit Auto (Bld) [Volum e fraction]Ordered By: Clau Mcclain on 11-21-2024 Hematocrit (Bld) [Volume fraction] 34.6 % Low 37-47 [facility] Hemoglobin measurementOrdere d By: Clau Mcclain on 11-21-2024 Hemoglobin (Bld) [Mass/Vol] 10.1 g/dL Low 12.0-15.0 [facility] Immature granulocytes/100 WB C Auto (Bld)Ordered By: Clau Mcclain on 03-26-2025 Immature granulocytes/100 WBC (Bld) 0.200 % 0.0-0.9 [facility] Comment on above: IG% - Immature Granu locytes (promyelocytes, myelocytes and metamyelocytes) > 1% indicates that a LEFT SHIFT is Present. Immunohistochemical Stainson 11-21-2024 Immunohistochemical Stains Normal [facility] Comment on above: Performed By: #### P IMHI ####[facility] [address] [place], [address] Iron (Unsp spec) [Mass/Mass] Ordered By: Clau Mcclain on 11-21-2024 Iron [Mass/Vol] 26 ug/dL Low 50-170 [facility] Iron measurement (mass/mass) Ordered By: Clau Mcclain on 11-21-2024 Iron (Unsp spec) [Mass/Mass] 26 ug/dL Low 50-170 [facility] Iron saturation [Mass fracti on]Ordered By: Clau Mcclain on 11-21-2024 Iron Saturation 6.0 % Low 13-59 [facility] Iron+Iron Binding Capacityon 11-21-2024 Iron [Mass/Vol] 26 ug/dL Low 50-170 [facility] Comment on above: Performed By: #### L 100.0100, L503.6030 ####[facility] [address] [place], [address] IRON SATURATION 6.0 Low 13-59 [facility] Comment on above: Performed By: #### L 100.0100, L503.6030 ####[facility] [address] [place], [address] TIBC 403 ug/dL Normal 250-450 [facility] Comment on above: Performed By: #### L 100.0100, L503.6030 ####[facility] [address] [place], [address] UIBC 377 ug/dL Normal 228-428 [facility] Comment on above: Performed By: #### L 100.0100, L503.6030 ####[facility] [address] [place], [address] Laboratory - Hematology and Cell countsOrdered By: Clau Mcclain on 11-21-2024 Anisocytosis Ql (Bld) 1+ [facility] Lymphocytes Auto (Unsp spec) [#/Vol]Ordered By: Clau Mcclain on 11-21-2024 Lymphocytes (Bld) [#/Vol] 3.12 10*3/uL 0.83-4.51 [facility] Lymphocytes/100 WBC Auto (Un sp spec)Ordered By: Clau Mcclain on 11-21-2024 Lymphocytes/100 WBC (Bld) 37.2 % 19-41 [facility] MCV (mean corpuscular volume ) determinationOrdered By: Clau Mcclain on 11-21-2024 MCV (RBC) [Entitic vol] 74.9 fL Low 81-99 [facility] MR/POSTOP.ANEon 11-21-2024 MR/POSTOP.ANE Normal [facility] MR/DSLBSNDO7hy 11-21-2024 MR/POSTOPAN2 Normal [facility] Mean corpuscular hemoglobin (MCH) determinationOrdered By: Clau Mcclain on 11-21-2024 MCH (RBC) [Entitic mass] 21.9 pg Low 27.0-32.0 [facility] Mean corpuscular hemoglobin concentration (MCHC) determinationOrdered By: Clau Mcclain on 11-21-2024 MCHC (RBC) [Mass/Vol] 29.2 g/dL Low 32-36 [facility] Mean platelet volume determi nationOrdered By: Clau Mcclain on 11-21-2024 Platelet mean volume (Bld) [Entitic vol] 8.5 fL 6.2-12.0 [facility] Monocyte percentageOrdered B y: Clau Mcclain on 11-21-2024 Monocytes/100 WBC (Bld) 8.8 % 0-10 [facility] Neutrophil percentageOrdered By: Clau Mcclain on 11-21-2024 Neutrophils/100 WBC (Bld) 52.8 % 47-70 [facility] No Panel InformationOrdered By: Clau Mcclain on 11-21-2024 Unsaturated Iron Binding Capacity 377 ug/dL 228-428 [facility] Nucleated red blood cell per centageOrdered By: Clau Mcclain on 11-21-2024 Nucleated RBC/100 WBC (Bld) [Ratio] 0 % 0-5 [facility] Platelet countOrdered By: Mann Mcclain on 11-21-2024 Platelets (Bld) [#/Vol] 419 10*3/uL 150-450 [facility] Platelet estimateOrdered By: Clau Mcclain on 11-21-2024 Platelets LM Ql (Bld) A [facility] Platelets LM Ql (Bld)Ordered By: Clua Mcclain on 11-21-2024 Platelet Estimate A [facility] Polychromasia LM Ql (Bld)Ord ered By: Clau Mcclain on 11-21-2024 Polychromasia 1+ [facility] RBC Auto (Bld) [#/Vol]Ordere d By: Clau Mcclain on 11-21-2024 RBC (Bld) [#/Vol] 4.62 10*6/uL 4.2-5.4 [facility] Serum or plasma iron saturat ion measurement (mass fraction)Ordered By: Clau Mcclain on 11-21-2024 Iron saturation [Mass fraction] 6.0 % Low 13-59 [facility] White blood cell (WBC) count Ordered By: Clau Mcclain on 11-21-2024 WBC (Bld) [#/Vol] 8.4 10*3/uL 4.4-11.0 [facility] MR/PAT.ANEon 11-16-2024 MR/PAT.ANE Normal [facility] Office Visit Reporton 2024 Office Visit Report Normal [facility] Absolute lymphocyte countOrd ered By: Clau Mcclain on 10-25-2024 Lymphocytes Auto (Unsp spec) [#/Vol] 3.19 10*3/uL 0.83-4.51 [facility] Absolute neutrophil countOrd ered By: Clau Mcclain on 10-25-2024 Neutrophils (Bld) [#/Vol] 5.4 10*3/uL 2.0-7.7 [facility] Automated lymphocyte count a s percentage of total leukocytesOrdered By: Clau Mcclain on 10-25-2024 Lymphocytes/100 WBC Auto (Unsp spec) 33.6 % 19-41 [facility] BUN/creatinine ratioOrdered By: Ravindra Singh on 10-25-2024 Urea nitrogen/Creatinine [Mass ratio] 26.4 mg/mg High 10-20 [facility] Basic Metabolic Profile (BMP )on 10-25-2024 Anion gap [Moles/Vol] 8 mmol/L Normal 5-15 [facility] Comment on above: Performed By: #### L 501.9520, L500.2500 ####[facility] [address] [place], [address] BUN/CRE 26.4 RATIO High 10-20 [facility] Comment on above: Performed By: #### L 501.9520, L500.2500 ####[facility] [address] [place], [address] Calcium [Mass/Vol] 9.6 mg/dL Normal 7.6-11.0 [facility] Comment on above: Performed By: #### L 501.9520, L500.2500 ####[facility] [address] [place], [address] Chloride [Moles/Vol] 98 mmol/L Normal 96-108 [facility] Comment on above: Performed By: #### L 501.9520, L500.2500 ####[facility] [address] [place], [address] CO2 [Moles/Vol] 25.6 mmol/L Normal 22.0-29.0 [facility] Comment on above: Performed By: #### L 501.9520, L500.2500 ####[facility] [address] [place], [address] Creatinine [Mass/Vol] 0.6 mg/dL Normal 0.6-1.0 [facility] Comment on above: Performed By: #### L 501.9520, L500.2500 ####[facility] [address] [place], [address] GFR/1.73 sq M.predicted among non-blacks MDRD (S/P/Bld) [Vol rate/Area] 98 mL/min/{1.73_m2} Normal >60 [facility] Comment on above: Result Comment: mL/m in/1.73m2 CKD-EPI Creatinine Equation (2020) Performed By: #### L 501.9520, L500.2500 ####[facility] [address] [place], [address] Glucose [Mass/Vol] 87 mg/dL Normal 70-99 [facility] Comment on above: Performed By: #### L 501.9520, L500.2500 ####[facility] [address] [place], [address] Potassium [Moles/Vol] 4.2 mmol/L Normal 3.3-5.1 [facility] Comment on above: Performed By: #### L 501.9520, L500.2500 ####[facility] [address] [place], [address] Sodium [Moles/Vol] 132 mmol/L Low 133-145 [facility] Comment on above: Performed By: #### L 501.9520, L500.2500 ####[facility] [address] [place], [address] Urea nitrogen [Mass/Vol] 16 mg/dL Normal 4-19 [facility] Comment on above: Performed By: #### L 501.9520, L500.2500 ####[facility] [address] [place], [address] Basophil percentageOrdered B y: Clau Mcclain on 10-25-2024 Basophils/100 WBC (Bld) 0.3 % 0-1 [facility] CBC W/Diff, Automatedon 02-2 7-2025 Absolute Lymph 3.19 X10 3/uL Normal 0.83-4.51 [facility] Comment on above: Performed By: #### L 100.0100 ####[facility] [address] [place], [address] Absolute Neut 5.4 X10 3/uL Normal 2.0-7.7 [facility] Comment on above: Performed By: #### L 100.0100 ####[facility] [address] [place], [address] Basophils/100 WBC (Bld) 0.3 % Normal 0-1 [facility] Comment on above: Performed By: #### L 100.0100 ####[facility] [address] [place], [address] Eosinophils/100 WBC (Bld) 1.1 % Normal 0-5 [facility] Comment on above: Performed By: #### L 100.0100 ####[facility] [address] [place], [address] Erythrocyte distribution width (RBC) [Ratio] 18.9 % High 11.6-14.6 [facility] Comment on above: Performed By: #### L 100.0100 ####[facility] [address] [place], [address] Hematocrit (Bld) [Volume fraction] 31.5 % Low 37-47 [facility] Comment on above: Performed By: #### L 100.0100 ####[facility] [address] [place], [address] Hemoglobin (Bld) [Mass/Vol] 8.9 g/dL Low 12.0-15.0 [facility] Comment on above: Performed By: #### L 100.0100 ####[facility] [address] [place], [address] IG% 0.500 Normal 0.0-0.9 [facility] Comment on above: Result Comment: IG% - Immature Granulocytes (promyelocytes, myelocytes andmetamyelocytes) > 1% indicates that a LEFT SHIFT is Present. Performed By: #### L 100.0100 ####[facility] [address] [place], [address] Lymphocytes/100 WBC (Bld) 33.6 % Normal 19-41 [facility] Comment on above: Performed By: #### L 100.0100 ####[facility] [address] [place], [address] MCH (RBC) [Entitic mass] 21.8 pg Low 27.0-32.0 [facility] Comment on above: Performed By: #### L 100.0100 ####[facility] [address] [place], [address] MCHC (RBC) [Mass/Vol] 28.3 g/dL Low 32-36 [facility] Comment on above: Performed By: #### L 100.0100 ####[facility] [address] [place], [address] MCV (RBC) [Entitic vol] 77.2 fL Low 81-99 [facility] Comment on above: Performed By: #### L 100.0100 ####[facility] [address] [place], [address] Monocytes/100 WBC (Bld) 8.0 % Normal 0-10 [facility] Comment on above: Performed By: #### L 100.0100 ####[facility] [address] [place], [address] Neutrophils/100 WBC (Bld) 56.5 % Normal 47-70 [facility] Comment on above: Performed By: #### L 100.0100 ####[facility] [address] [place], [address] Nucleated RBC (Bld) [#/Vol] 0 10*3/uL Normal 0-5 [facility] Comment on above: Performed By: #### L 100.0100 ####[facility] [address] [place], [address] Platelet mean volume (Bld) [Entitic vol] 8.4 fL Normal 6.2-12.0 [facility] Comment on above: Performed By: #### L 100.0100 ####[facility] [address] [place], [address] Platelets (Bld) [#/Vol] 395 10*3/uL Normal 150-450 [facility] Comment on above: Performed By: #### L 100.0100 ####[facility] [address] [place], [address] RBC (Bld) [#/Vol] 4.08 10*6/uL Low 4.2-5.4 [facility] Comment on above: Performed By: #### L 100.0100 ####[facility] [address] [place], [address] RDW SD 52.9 fl High 35.1-43.9 [facility] Comment on above: Performed By: #### L 100.0100 ####[facility] [address] [place], [address] WBC (Bld) [#/Vol] 9.5 10*3/uL Normal 4.4-11.0 [facility] Comment on above: Performed By: #### L 100.0100 ####[facility] [address] [place], [address] Carbon dioxide measurementOr dered By: Ravindra Singh on 10-25-2024 CO2 [Moles/Vol] 25.6 mmol/L 22.0-29.0 [facility] Cardiology Visit Reporton Cardiology Visit Report Normal [facility] Chloride measurementOrdered By: Ravindra Singh on 10-25-2024 Chloride [Moles/Vol] 98 mmol/L 96-108 [facility] Creatinine [Moles/Vol]Ordere d By: Ravindra Singh on 10-25-2024 Creatinine [Mass/Vol] 0.6 mg/dL 0.6-1.0 [facility] Eosinophil percentageOrdered By: Clau Mcclain on 10-25-2024 Eosinophils/100 WBC (Bld) 1.1 % 0-5 [facility] Erythrocyte distribution wid th ratioOrdered By: Clau Mcclain on 10-25-2024 Erythrocyte distribution width (RBC) [Ratio] 18.9 % High 11.6-14.6 [facility] Erythrocyte distribution wid th standard deviationOrdered By: Clau Mcclain on 10-25-2024 Erythrocyte distribution width (RBC) [Entitic vol] 52.9 fL High 35.1-43.9 [facility] Erythrocyte distribution width (RBC) [Ratio] 52.9 fl High 35.1-43.9 [facility] GFR/1.73 sq M.predicted tanya g non-blacks MDRD (S/P/Bld) [Vol rate/Area]Ordered By: Ravindra Singh on 10-25-2024 Estimated GFR (MDRD) Non-Af Amer 98 >60 [facility] Comment on above: mL/min/1.73m2 CKD-EP I Creatinine Equation (2020) Glomerular filtration rate ( GFR) estimation/1.73 sq m using serum, plasma, or whole bOrdered By: Ravindra Singh on 10-25-2024 GFR/1.73 sq M.predicted among non-blacks MDRD (S/P/Bld) [Vol rate/Area] 98 mL/min/{1.73_m2} >60 [facility] Comment on above: mL/min/1.73m2 CKD-EP I Creatinine Equation (2020) Hematocrit Auto (Bld) [Volum e fraction]Ordered By: Clau Mcclain on 10-25-2024 Hematocrit (Bld) [Volume fraction] 31.5 % Low 37-47 [facility] Hemoglobin measurementOrdere d By: Clau Mcclain on 10-25-2024 Hemoglobin (Bld) [Mass/Vol] 8.9 g/dL Low 12.0-15.0 [facility] Immature granulocytes/100 WB C Auto (Bld)Ordered By: Clau Mcclain on 10-25-2024 Immature granulocytes/100 WBC (Bld) 0.500 % 0.0-0.9 [facility] Comment on above: IG% - Immature Granu locytes (promyelocytes, myelocytes and metamyelocytes) > 1% indicates that a LEFT SHIFT is Present. Lymphocytes Auto (Unsp spec) [#/Vol]Ordered By: Clau Mcclain on 10-25-2024 Lymphocytes (Bld) [#/Vol] 3.19 10*3/uL 0.83-4.51 [facility] Lymphocytes/100 WBC Auto (Un sp spec)Ordered By: Clau Mcclain on 10-25-2024 Lymphocytes/100 WBC (Bld) 33.6 % 19-41 [facility] MCV (mean corpuscular volume ) determinationOrdered By: Clau Mcclain on 10-25-2024 MCV (RBC) [Entitic vol] 77.2 fL Low 81-99 [facility] Mean corpuscular hemoglobin (MCH) determinationOrdered By: Clau Mcclain on 10-25-2024 MCH (RBC) [Entitic mass] 21.8 pg Low 27.0-32.0 [facility] Mean corpuscular hemoglobin concentration (MCHC) determinationOrdered By: Clau Mcclain on 10-25-2024 MCHC (RBC) [Mass/Vol] 28.3 g/dL Low 32-36 [facility] Mean platelet volume determi nationOrdered By: Clau Mcclain on 10-25-2024 Platelet mean volume (Bld) [Entitic vol] 8.4 fL 6.2-12.0 [facility] Monocyte percentageOrdered B y: Clau Mcclain on 10-25-2024 Monocytes/100 WBC (Bld) 8.0 % 0-10 [facility] Neutrophil percentageOrdered By: Clau Mcclain on 10-25-2024 Neutrophils/100 WBC (Bld) 56.5 % 47-70 [facility] Nucleated red blood cell per centageOrdered By: Clau Mcclain on 10-25-2024 Nucleated RBC/100 WBC (Bld) [Ratio] 0 % 0-5 [facility] Platelet countOrdered By: Mann Mcclain on 10-25-2024 Platelets (Bld) [#/Vol] 395 10*3/uL 150-450 [facility] RBC Auto (Bld) [#/Vol]Ordere d By: Clau Mcclain on 10-25-2024 RBC (Bld) [#/Vol] 4.08 10*6/uL Low 4.2-5.4 [facility] Serum glucose measurement (m ass/volume)Ordered By: Ravindra Singh on 10-25-2024 Glucose [Mass/Vol] 87 mg/dL 70-99 [facility] Serum or plasma anion gap de termination (moles/volume)Ordered By: Ravindra Singh on 10-25-2024 Anion gap [Moles/Vol] 8 mmol/L 5-15 [facility] Serum or plasma calcium zara urement (mass/volume)Ordered By: Ravindra Singh on 10-25-2024 Calcium [Mass/Vol] 9.6 mg/dL 7.6-11.0 [facility] Serum or plasma creatinine m easurement (moles/volume)Ordered By: Ravindra Singh on 10-25-2024 Creatinine [Moles/Vol] 0.6 mg/dL 0.6-1.0 [facility] Serum or plasma potassium me asurementOrdered By: Ravindra Singh on 10-25-2024 Potassium [Moles/Vol] 4.2 mmol/L 3.3-5.1 [facility] Serum or plasma sodium measu rement (moles/volume)Ordered By: Ravindra Singh on 10-25-2024 Sodium [Moles/Vol] 132 mmol/L Low 133-145 [facility] Serum or plasma urea nitroge n measurement (mass/volume)Ordered By: Ravindra Singh on 10-25-2024 Urea nitrogen [Mass/Vol] 16 mg/dL 4-19 [facility] TSH DL <= 0.005 mIU/L QnOrde red By: Ravindra Singh on 10-25-2024 Thyroid Stimulating Hormone (TSH) 1.800 uIU/mL 0.300-4.200 [facility] TSH Qn 1.800 uIU/mL 0.300-4.200 [facility] Thyroid Stim Hormone (TSH)on 10-25-2024 TSH 1.800 uIU/mL Normal 0.300-4.200 [facility] Comment on above: Performed By: #### L 501.9520, L500.2500 ####[facility] [address] [place], [address] White blood cell (WBC) count Ordered By: Clau Mcclain on 10-25-2024 WBC (Bld) [#/Vol] 9.5 10*3/uL 4.4-11.0 [facility] CNPNon 10-10-2024 CNPN Telephone (MOIZ) [place] ([id number]) 1955 F Date Time Provider Department 10/10/24 GÉNESIS CARLTON During your visit today, we recorded the following information about you: Shanice Gruber 10/10/2024 12:10 PM Signed Pt requesting lab orders, Pt ph [phone] Shanice Gruber 10/16/2024 12:43 PM Signed Pt would like to go 10/19/23 to get blood work done, Pt ph [phone] Jc Puri 11/02/2024 1:38 PM Signed Patient called about lab work, has not seen Dr. Carlton since April 2023. Offered in person and virtual appointment and she denied both. Scheduled her with Isabel Ceron since she lives in [place]. Allergies As of Date: 10/10/2024 Noted Allergy Reaction BEE STING 03/27/2014 10 - Anaphylaxis BEES 05/10/2007 7 - Swelling 10 - Anaphylaxis Comments: Severe edema CORTICOSTEROIDS (GLUCOCORTICOIDS) 05/01/2014 4 - Hives 7 - Swelling OXYCODONE 08/02/2018 2 - Rash OXYCODONE-ACETAMINOPHE N 01/09/2009 9 - Itching 4 - Hives 2 - Rash ULTRAM (TRAMADOL HCL) 03/06/2014 2 - Rash 9 - Itching Comments: Severe itching VALPROIC ACID 12/13/2014 1 - Mental Status Change Comments: Nightmares BEE POLLEN 03/27/2014 7 - Swelling Comments: Edema MELOXICAM 12/11/2007 2 - Rash 4 - Hives 9 - Itching PENTAZOCINE LACTATE 02/16/2006 4 - Hives 2 - Rash PREDNISONE 12/11/2008 7 - Swelling Comments: Edema SHELLFISH 02/16/2006 7 - Swelling SHELLFISH DERIVED 02/16/2006 7 - Swelling QUETIAPINE 11/25/2014 1 - Mental Status Change Comments: shaking, lightheaded and abnormal dreams Date Reviewed: 04/22/2023 Reviewed by: Ramona Barragan MA - Fully Assessed Reason for Visit: Orders [681] Prescriptions as of 11/02/2024 - nitrofurantoin macrocrystal (MACRODANTIN) 50 mg capsule 100 mg by ORAL/FEEDING TUBE route twice daily. - polyethylene glycol 3350 4 gram pwpk Take by mouth. - potassium (POTASSIMIN ORAL) Take by mouth. - albuterol HFA (PROAIR HFA) 90 mcg/actuation inhaler Inhale 2 Puffs as instructed. - traZODone (DESYREL) 150 mg tablet Take 150 mg by mouth daily at bedtime. - diclofenac (VOLTAREN) 1 % topical gel Apply 4 g to affected area four times daily. - methocarbamol (ROBAXIN) 500 mg tablet Take 1 tablet by mouth three times daily as needed (muscle cramping). - methylPREDNISolone (MEDROL, DEONNA,) 4 mg Dose-Pack As Instructed per package - famotidine (PEPCID ORAL) Take by mouth. - fexofenadine HCl (MUCINEX ALLERGY ORAL) Take by mouth. - dicyclomine (BENTYL) 10 mg capsule 20 mg. - olanzapine (ZYPREXA ORAL) Take by mouth. - cholecalciferol, Vitamin D3, (VITAMIN D3) 50,000 unit cap capsule Take 1 capsule by mouth once each week. - BUTRANS 5 mcg/hour - Ipratropium [place] (ATROVENT) 0.03 % nasal spray - triamcinolone acetonide (KENALOG) 0.1 % cream Apply 1 application to affected area twice daily. - ketoconazole (NIZORAL) 2 % cream Apply 1 application to affected area once daily. - amLODIPine (NORVASC) 10 mg tablet Take 10 mg by mouth once daily. - benzonatate (TESSALON PERLE) 100 mg capsule Take 100 mg by mouth three times daily as needed. - ketoconazole (NIZORAL) 2 % cream Apply 1 application to affected area once daily. - ALL DAY ALLERGY 10 mg tablet - cyclobenzaprine (FLEXERIL) 5 mg tablet - diclofenac sodium (VOLTAREN) 1 % topical gel - Trospium (SANCTURA SR) 60 mg cp24 Take 1 capsule by mouth once daily. Take in the morning with a full glass of water. - flurazepam HCl (DALMANE) 15 mg capsule Take 15 mg by mouth at bedtime as needed. - HYDROcodone-acetaminop hen (NORCO) 5-325 mg per tablet Take 1 tablet by mouth every 8 hours as needed. - hydroCHLOROthiazide (HYDRODIURIL, ESIDRIX) 12.5 mg tablet Take 25 mg by mouth once daily. - omeprazole (PRILOSEC) 20 mg capsule Take 20 mg by mouth once daily. - lisinopril (ZESTRIL, PRINIVIL) 10 mg tablet Take 10 mg by mouth once daily. - potassium chloride ER (K-DUR, KLOR-CON) 20 mEq tablet Take 20 mEq by mouth twice daily. - DULoxetine (CYMBALTA) 30 mg capsule Take 30 mg by mouth twice daily. NEW 11/20/20: 60 mg in AM 11/24/20: will change to different medication - EPINEPHrine (EPIPEN) 0.3 mg/0.3 mL (1:1,000) atIn Inject 0.3 mg intramuscularly as needed. for bee stings. - estradiol (ESTRACE) 2 mg tablet Take 2 mg by mouth once daily. - albuterol HFA (PROAIR HFA) 90 mcg/actuation inhaler Inhale 2 Puffs as instructed as needed for Wheezing/Shortness of Breath. 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 Normal [facility] Absolute lymphocyte countOrd ered By: [facility] Marcelina on 10-09-2024 Lymphocytes Auto (Unsp spec) [#/Vol] 2.80 10*3/uL 0.83-4.51 [facility] Absolute neutrophil countOrd ered By: [facility] Marcelina on 10-09-2024 Neutrophils (Bld) [#/Vol] 10.4 10*3/uL High 2.0-7.7 [facility] Automated lymphocyte count a s percentage of total leukocytesOrdered By: [facility] Marcelina on 10-09-2024 Lymphocytes/100 WBC Auto (Unsp spec) 19.4 % 19-41 [facility] Basophil percentageOrdered B y: [facility] on 10-09-2024 Basophils/100 WBC (Bld) 0.3 % 0-1 [facility] C-reactive protein measureme nt by high sensitivity methodOrdered By: Tory Marcelina on 10-09-2024 C-Reactive Protein Extended Range 5.12 mg/L High 0.0-3.0 [facility] Comment on above: C-Reactive Protein ( CRP) provides useful information for thediagnosis, therapy and monitoring of inflammatory processesand associated diseases. For the evaluation of Relative Riskfor Cardiovascular Disease, a High Sensitivity CRP (HSCRP)should be ordered. C-reactive protein measurement by high sensitivity method 5.12 mg/L High 0.0-3.0 [facility] Comment on above: C-Reactive Protein ( CRP) provides useful information for thediagnosis, therapy and monitoring of inflammatory processesand associated diseases. For the evaluation of Relative Riskfor Cardiovascular Disease, a High Sensitivity CRP (HSCRP)should be ordered. CBC W/Diff, Automatedon - Absolute Lymph 2.80 X10 3/uL Normal 0.83-4.51 [facility] Comment on above: Performed By: #### L 100.0100, L501.6710, L101.9900 ####[facility] [address] [place], [address] Absolute Neut 10.4 X10 3/uL High 2.0-7.7 [facility] Comment on above: Performed By: #### L 100.0100, L501.6710, L101.9900 ####[facility] [address] [place], [address] Basophils/100 WBC (Bld) 0.3 % Normal 0-1 [facility] Comment on above: Performed By: #### L 100.0100, L501.6710, L101.9900 ####[facility] [address] [place], [address] Eosinophils/100 WBC (Bld) 0.1 % Normal 0-5 [facility] Comment on above: Performed By: #### L 100.0100, L501.6710, L101.9900 ####[facility] [address] [place], [address] Erythrocyte distribution width (RBC) [Ratio] 18.1 % High 11.6-14.6 [facility] Comment on above: Performed By: #### L 100.0100, L501.6710, L101.9900 ####[facility] [address] [place], [address] Hematocrit (Bld) [Volume fraction] 35.0 % Low 37-47 [facility] Comment on above: Performed By: #### L 100.0100, L501.6710, L101.9900 ####[facility] [address] [place], [address] Hemoglobin (Bld) [Mass/Vol] 9.9 g/dL Low 12.0-15.0 [facility] Comment on above: Performed By: #### L 100.0100, L501.6710, L101.9900 ####[facility] [address] [place], [address] IG% 0.600 Normal 0.0-0.9 [facility] Comment on above: Result Comment: IG% - Immature Granulocytes (promyelocytes, myelocytes andmetamyelocytes) > 1% indicates that a LEFT SHIFT is Present. Performed By: #### L 100.0100, L501.6710, L101.9900 ####[facility] [address] [place], [address] Lymphocytes/100 WBC (Bld) 19.4 % Normal 19-41 [facility] Comment on above: Performed By: #### L 100.0100, L501.6710, L101.9900 ####[facility] [address] [place], [address] MCH (RBC) [Entitic mass] 21.7 pg Low 27.0-32.0 [facility] Comment on above: Performed By: #### L 100.0100, L501.6710, L101.9900 ####[facility] [address] [place], [address] MCHC (RBC) [Mass/Vol] 28.3 g/dL Low 32-36 [facility] Comment on above: Performed By: #### L 100.0100, L501.6710, L101.9900 ####[facility] [address] [place], [address] MCV (RBC) [Entitic vol] 76.8 fL Low 81-99 [facility] Comment on above: Performed By: #### L 100.0100, L501.6710, L101.9900 ####[facility] [address] [place], [address] Monocytes/100 WBC (Bld) 7.8 % Normal 0-10 [facility] Comment on above: Performed By: #### L 100.0100, L501.6710, L101.9900 ####[facility] [address] [place], [address] Neutrophils/100 WBC (Bld) 71.8 % High 47-70 [facility] Comment on above: Performed By: #### L 100.0100, L501.6710, L101.9900 ####[facility] [address] [place], [address] Nucleated RBC (Bld) [#/Vol] 0 10*3/uL Normal 0-5 [facility] Comment on above: Performed By: #### L 100.0100, L501.6710, L101.9900 ####[facility] [address] [place], [address] Platelet mean volume (Bld) [Entitic vol] 8.2 fL Normal 6.2-12.0 [facility] Comment on above: Performed By: #### L 100.0100, L501.6710, L101.9900 ####[facility] [address] [place], [address] Platelets (Bld) [#/Vol] 512 10*3/uL High 150-450 [facility] Comment on above: Performed By: #### L 100.0100, L501.6710, L101.9900 ####[facility] [address] [place], [address] RBC (Bld) [#/Vol] 4.56 10*6/uL Normal 4.2-5.4 [facility] Comment on above: Performed By: #### L 100.0100, L501.6710, L101.9900 ####[facility] [address] [place], [address] RDW SD 50.1 fl High 35.1-43.9 [facility] Comment on above: Performed By: #### L 100.0100, L501.6710, L101.9900 ####[facility] [address] [place], [address] WBC (Bld) [#/Vol] 14.4 10*3/uL High 4.4-11.0 [facility] Comment on above: Performed By: #### L 100.0100, L501.6710, L101.9900 ####[facility] [address] [place], [address] CRPon 10-09-2024 C-REACTIVE PROT 5.12 mg/L High 0.0-3.0 [facility] Comment on above: Result Comment: C-Re active Protein (CRP) provides useful information for thediagnosis, therapy and monitoring of inflammatory processesand associated diseases. For the evaluation of Relative Riskfor Cardiovascular Disease, a High Sensitivity CRP (HSCRP)should be ordered. Performed By: #### L 100.0100, L501.6710, L101.9900 ####[facility] [address] [place], [address] Cerv Spine 4 or 5 Viewson Cerv Spine 4 or 5 Views Normal [facility] Eosinophil percentageOrdered By: Tory Hewitt on 10-09-2024 Eosinophils/100 WBC (Bld) 0.1 % 0-5 [facility] Erythrocyte Sed Rateon 10-09 SED RATE 77 mm/hr High 0-30 [facility] Comment on above: Performed By: #### L 100.0100, L501.6710, L101.9900 ####[facility] [address] [place], [address] Erythrocyte distribution wid th ratioOrdered By: Tory Marcelina on 10-09-2024 Erythrocyte distribution width (RBC) [Ratio] 18.1 % High 11.6-14.6 [facility] Erythrocyte distribution wid th standard deviationOrdered By: [facility] Marcelina on 10-09-2024 Erythrocyte distribution width (RBC) [Entitic vol] 50.1 fL High 35.1-43.9 [facility] Erythrocyte distribution width (RBC) [Ratio] 50.1 fl High 35.1-43.9 [facility] Erythrocyte sedimentation ra teOrdered By: [facility] Marcelina on 10-09-2024 ESR (Bld) [Velocity] 77 mm/h High 0-30 [facility] Hematocrit Auto (Bld) [Volum e fraction]Ordered By: [facility] Marcelina on 10-09-2024 Hematocrit (Bld) [Volume fraction] 35.0 % Low 37-47 [facility] Hemoglobin measurementOrdere d By: [facility] Marcelina on 10-09-2024 Hemoglobin (Bld) [Mass/Vol] 9.9 g/dL Low 12.0-15.0 [facility] Immature granulocytes/100 WB C Auto (Bld)Ordered By: [facility] Marcelina 10-09-2024 Immature granulocytes/100 WBC (Bld) 0.600 % 0.0-0.9 [facility] Comment on above: IG% - Immature Granu locytes (promyelocytes, myelocytes and metamyelocytes) > 1% indicates that a LEFT SHIFT is Present. Lymphocytes Auto (Unsp spec) [#/Vol]Ordered By: Tory Marcelina on 10-09-2024 Lymphocytes (Bld) [#/Vol] 2.80 10*3/uL 0.83-4.51 [facility] Lymphocytes/100 WBC Auto (Un sp spec)Ordered By: [facility] Marcelina 10-09-2024 Lymphocytes/100 WBC (Bld) 19.4 % 19-41 [facility] MCV (mean corpuscular volume ) determinationOrdered By: [facility] Marcelina on 10-09-2024 MCV (RBC) [Entitic vol] 76.8 fL Low 81-99 [facility] Mean corpuscular hemoglobin (MCH) determinationOrdered By: Tory Marcelina 10-09-2024 MCH (RBC) [Entitic mass] 21.7 pg Low 27.0-32.0 [facility] Mean corpuscular hemoglobin concentration (MCHC) determinationOrdered By: Tory Gofield on 10-09-2024 MCHC (RBC) [Mass/Vol] 28.3 g/dL Low 32-36 [facility] Mean platelet volume determi nationOrdered By: Tory [place] on 10-09-2024 Platelet mean volume (Bld) [Entitic vol] 8.2 fL 6.2-12.0 [facility] Monocyte percentageOrdered B y: Toyr Marcelina on 10-09-2024 Monocytes/100 WBC (Bld) 7.8 % 0-10 [facility] Neutrophil percentageOrdered By: [facility] Marcelina on 10-09-2024 Neutrophils/100 WBC (Bld) 71.8 % High 47-70 [facility] Nucleated red blood cell per centageOrdered By: Tory Marcelina on 10-09-2024 Nucleated RBC/100 WBC (Bld) [Ratio] 0 % 0-5 [facility] Platelet countOrdered By: Jossue aparna Marcelina on 10-09-2024 Platelets (Bld) [#/Vol] 512 10*3/uL High 150-450 [facility] RBC Auto (Bld) [#/Vol]Ordere d By: Tory Marcelina on 10-09-2024 RBC (Bld) [#/Vol] 4.56 10*6/uL 4.2-5.4 [facility] White blood cell (WBC) count Ordered By: Tory Marcelina on 10-09-2024 WBC (Bld) [#/Vol] 14.4 10*3/uL High 4.4-11.0 [facility] 12 Lead EKGon 09-29-2024 12 Lead EKG Normal [facility] Absolute lymphocyte countOrd ered By: Jani Posey on 09-29-2024 Lymphocytes Auto (Unsp spec) [#/Vol] 2.38 10*3/uL 0.83-4.51 [facility] Absolute neutrophil countOrd ered By: Jani Posey on 09-29-2024 Neutrophils (Bld) [#/Vol] 7.6 10*3/uL 2.0-7.7 [facility] Albumin to globulin ratioOrd ered By: Jani Posey on 09-29-2024 Albumin/Globulin [Mass ratio] 0.6 {ratio} Low 0.9-2.4 [facility] Ammoniaon 09-29-2024 Ammonia (P) [Moles/Vol] 18.0 umol/L Normal 11-32 [facility] Comment on above: Performed By: #### L 503.5510 ####[facility] [address] [place], [place], [id number] Automated lymphocyte count a s percentage of total leukocytesOrdered By: Jani Posey on 09-29-2024 Lymphocytes/100 WBC Auto (Unsp spec) 21.9 % 19-41 [facility] Basophil percentageOrdered B y: Jani Posey on 09-29-2024 Basophils/100 WBC (Bld) 0.2 % 0-1 [facility] Bilirubin, totalOrdered By: Jani Posey on 09-29-2024 Bilirubin [Mass/Vol] 0.20 mg/dL 0.20-1.00 [facility] Comment on above: For patients on eltr ombopag therapy, use of Dimension Hardin TBIL is not recommended. Blood urea nitrogen (BUN)/cr eatinine ratioOrdered By: Jani Posey on 09-29-2024 Urea nitrogen/Creatinine [Mass ratio] 29.1 mg/mg High 10-20 [facility] CBC W/Diff, Automatedon Absolute Lymph 2.38 X10 3/uL Normal 0.83-4.51 [facility] Comment on above: Performed By: #### L 500.4050, L501.4020, L100.0100 ####[facility] [address] [place], [address] Absolute Neut 7.6 X10 3/uL Normal 2.0-7.7 [facility] Comment on above: Performed By: #### L 500.4050, L501.4020, L100.0100 ####[facility] [address] [place], [address] Basophils/100 WBC (Bld) 0.2 % Normal 0-1 [facility] Comment on above: Performed By: #### L 500.4050, L501.4020, L100.0100 ####[facility] [address] [place], [address] Eosinophils/100 WBC (Bld) 0.6 % Normal 0-5 [facility] Comment on above: Performed By: #### L 500.4050, L501.4020, L100.0100 ####[facility] [address] [place], [address] Erythrocyte distribution width (RBC) [Ratio] 18.3 % High 11.6-14.6 [facility] Comment on above: Performed By: #### L 500.4050, L501.4020, L100.0100 ####[facility] [address] [place], [address] Hematocrit (Bld) [Volume fraction] 30.5 % Low 37-47 [facility] Comment on above: Performed By: #### L 500.4050, L501.4020, L100.0100 ####[facility] [address] [place], [address] Hemoglobin (Bld) [Mass/Vol] 8.7 g/dL Low 12.0-15.0 [facility] Comment on above: Performed By: #### L 500.4050, L501.4020, L100.0100 ####[facility] [address] [place], [address] IG% 0.400 Normal 0.0-0.9 [facility] Comment on above: Result Comment: IG% - Immature Granulocytes (promyelocytes, myelocytes andmetamyelocytes) > 1% indicates that a LEFT SHIFT is Present. Performed By: #### L 500.4050, L501.4020, L100.0100 ####[facility] [address] [place], [address] Lymphocytes/100 WBC (Bld) 21.9 % Normal 19-41 [facility] Comment on above: Performed By: #### L 500.4050, L501.4020, L100.0100 ####[facility] [address] [place], [address] MCH (RBC) [Entitic mass] 22.8 pg Low 27.0-32.0 [facility] Comment on above: Performed By: #### L 500.4050, L501.4020, L100.0100 ####[facility] [address] [place], [address] MCHC (RBC) [Mass/Vol] 28.5 g/dL Low 32-36 [facility] Comment on above: Performed By: #### L 500.4050, L501.4020, L100.0100 ####[facility] [address] [place], [address] MCV (RBC) [Entitic vol] 79.8 fL Low 81-99 [facility] Comment on above: Performed By: #### L 500.4050, L501.4020, L100.0100 ####[facility] [address] [place], [address] Monocytes/100 WBC (Bld) 6.9 % Normal 0-10 [facility] Comment on above: Performed By: #### L 500.4050, L501.4020, L100.0100 ####[facility] [address] [place], [address] Neutrophils/100 WBC (Bld) 70.0 % Normal 47-70 [facility] Comment on above: Performed By: #### L 500.4050, L501.4020, L100.0100 ####[facility] [address] [place], [address] Nucleated RBC (Bld) [#/Vol] 0 10*3/uL Normal 0-5 [facility] Comment on above: Performed By: #### L 500.4050, L501.4020, L100.0100 ####[facility] [address] [place], [address] Platelet mean volume (Bld) [Entitic vol] 8.5 fL Normal 6.2-12.0 [facility] Comment on above: Performed By: #### L 500.4050, L501.4020, L100.0100 ####[facility] [address] [place], [address] Platelets (Bld) [#/Vol] 398 10*3/uL Normal 150-450 [facility] Comment on above: Performed By: #### L 500.4050, L501.4020, L100.0100 ####[facility] [address] [place], [address] RBC (Bld) [#/Vol] 3.82 10*6/uL Low 4.2-5.4 [facility] Comment on above: Performed By: #### L 500.4050, L501.4020, L100.0100 ####[facility] [address] [place], [address] RDW SD 53.3 fl High 35.1-43.9 [facility] Comment on above: Performed By: #### L 500.4050, L501.4020, L100.0100 ####[facility] [address] [place], [address] WBC (Bld) [#/Vol] 10.9 10*3/uL Normal 4.4-11.0 [facility] Comment on above: Performed By: #### L 500.4050, L501.4020, L100.0100 ####[facility] [address] [place], [address] CTA Head AND Neck W/ Contras ton 09-29-2024 CTA Head AND Neck W/ Contrast Normal [facility] Carbon dioxide measurementOr dered By: Jani Posey on 09-29-2024 CO2 [Moles/Vol] 23.0 mmol/L 21.0-32.0 [facility] Chest 1 View (Portable)on Chest 1 View (Portable) Normal [facility] Chloride measurementOrdered By: Jani Posey on 09-29-2024 Chloride [Moles/Vol] 102 mmol/L 98-107 [facility] Comprehensive Metabolic Prof ilon 09-29-2024 Albumin [Mass/Vol] 2.9 g/dL Low 3.2-5.0 [facility] Comment on above: Order Comment: 'TROP ' Serial specimen #1, #2 or #3: 1 Performed By: #### L 500.4050, L501.4020, L100.0100 ####[facility] [address] [place], [address] Albumin/Globulin [Mass ratio] 0.6 {ratio} Low 0.9-2.4 [facility] Comment on above: Order Comment: 'TROP ' Serial specimen #1, #2 or #3: 1 Performed By: #### L 500.4050, L501.4020, L100.0100 ####[facility] [address] [place], [address] ALK P 89 U/L Normal 45-117 [facility] Comment on above: Order Comment: 'TROP ' Serial specimen #1, #2 or #3: 1 Performed By: #### L 500.4050, L501.4020, L100.0100 ####[facility] [address] [place], [address] ALT [Catalytic activity/Vol] 14 U/L Normal 13-56 [facility] Comment on above: Order Comment: 'TROP ' Serial specimen #1, #2 or #3: 1 Performed By: #### L 500.4050, L501.4020, L100.0100 ####[facility] [address] [place], [address] AST [Catalytic activity/Vol] 14 U/L Low 15-37 [facility] Comment on above: Order Comment: 'TROP ' Serial specimen #1, #2 or #3: 1 Performed By: #### L 500.4050, L501.4020, L100.0100 ####[facility] [address] [place], [address] Bilirubin [Mass/Vol] 0.20 mg/dL Normal 0.20-1.00 [facility] Comment on above: Order Comment: 'TROP ' Serial specimen #1, #2 or #3: 1 Result Comment: For patients on eltrombopag therapy, use of Dimension Hardin TBIL is not recommended. Performed By: #### L 500.4050, L501.4020, L100.0100 ####[facility] [address] [place], [address] BUN/CRE 29.1 RATIO High 10-20 [facility] Comment on above: Order Comment: 'TROP ' Serial specimen #1, #2 or #3: 1 Performed By: #### L 500.4050, L501.4020, L100.0100 ####[facility] [address] [place], [address] CA,Total 8.8 mg/dL Normal 8.5-10.1 [facility] Comment on above: Order Comment: 'TROP ' Serial specimen #1, #2 or #3: 1 Performed By: #### L 500.4050, L501.4020, L100.0100 ####[facility] [address] [place], [address] Chloride [Moles/Vol] 102 mmol/L Normal 98-107 [facility] Comment on above: Order Comment: 'TROP ' Serial specimen #1, #2 or #3: 1 Performed By: #### L 500.4050, L501.4020, L100.0100 ####[facility] [address] [place], [address] CO2 [Moles/Vol] 23.0 mmol/L Normal 21.0-32.0 [facility] Comment on above: Order Comment: 'TROP ' Serial specimen #1, #2 or #3: 1 Performed By: #### L 500.4050, L501.4020, L100.0100 ####[facility] [address] [place], [address] Creatinine [Mass/Vol] 0.76 mg/dL Normal 0.55-1.02 [facility] Comment on above: Order Comment: 'TROP ' Serial specimen #1, #2 or #3: 1 Result Comment: The validity of the calculated GFR GFRAA in patients over70 years has not been determined. Clinical correlation isessential. Performed By: #### L 500.4050, L501.4020, L100.0100 ####[facility] [address] [place], [address] ECRCL 77.71 ml/min Normal [facility] Comment on above: Order Comment: 'TROP ' Serial specimen #1, #2 or #3: 1 Performed By: #### L 500.4050, L501.4020, L100.0100 ####[facility] [address] [place], [address] EST GFR - AA 98 mL/min Normal >60 [facility] Comment on above: Order Comment: 'TROP ' Serial specimen #1, #2 or #3: 1 Result Comment: Afri can Macanese GFR Calc Performed By: #### L 500.4050, L501.4020, L100.0100 ####[facility] [address] [place], [address] GAP 8 Normal 5-15 [facility] Comment on above: Order Comment: 'TROP ' Serial specimen #1, #2 or #3: 1 Performed By: #### L 500.4050, L501.4020, L100.0100 ####[facility] [address] [place], [address] GFR/1.73 sq M.predicted among non-blacks MDRD (S/P/Bld) [Vol rate/Area] 81 mL/min/{1.73_m2} Normal >60 [facility] Comment on above: Order Comment: 'TROP ' Serial specimen #1, #2 or #3: 1 Result Comment: Non- GFR Calc Performed By: #### L 500.4050, L501.4020, L100.0100 ####[facility] [address] [place], [address] Globulin (S) [Mass/Vol] 4.6 g/dL High 2.2-4.2 [facility] Comment on above: Order Comment: 'TROP ' Serial specimen #1, #2 or #3: 1 Performed By: #### L 500.4050, L501.4020, L100.0100 ####[facility] [address] [place], [address] Glucose [Mass/Vol] 172 mg/dL High 74-106 [facility] Comment on above: Order Comment: 'TROP ' Serial specimen #1, #2 or #3: 1 Result Comment: Fast ing Glucose result greater than or equal to 126 mg/dLsuggests DIABETES MELLITUS per A.D.A. criteria. Performed By: #### L 500.4050, L501.4020, L100.0100 ####[facility] [address] [place], [address] Potassium [Moles/Vol] 4.2 mmol/L Normal 3.5-5.1 [facility] Comment on above: Order Comment: 'TROP ' Serial specimen #1, #2 or #3: 1 Performed By: #### L 500.4050, L501.4020, L100.0100 ####[facility] [address] [place], [address] Sodium [Moles/Vol] 132 mmol/L Low 136-145 [facility] Comment on above: Order Comment: 'TROP ' Serial specimen #1, #2 or #3: 1 Performed By: #### L 500.4050, L501.4020, L100.0100 ####[facility] [address] [place], [address] T PROT 7.5 g/dL Normal 6.4-8.2 [facility] Comment on above: Order Comment: 'TROP ' Serial specimen #1, #2 or #3: 1 Performed By: #### L 500.4050, L501.4020, L100.0100 ####[facility] [address] [place], [address] Urea nitrogen [Mass/Vol] 22 mg/dL High 7-18 [facility] Comment on above: Order Comment: 'TROP ' Serial specimen #1, #2 or #3: 1 Performed By: #### L 500.4050, L501.4020, L100.0100 ####[facility] [address] [place], [address] Emergency Department Summary on 09-29-2024 Emergency Department Summary Normal [facility] Eosinophil percentageOrdered By: Jani Posey on 09-29-2024 Eosinophils/100 WBC (Bld) 0.6 % 0-5 [facility] Erythrocyte distribution wid th ratioOrdered By: Jani Posey on 09-29-2024 Erythrocyte distribution width (RBC) [Ratio] 18.3 % High 11.6-14.6 [facility] Erythrocyte distribution wid th standard deviationOrdered By: Jani Posey on 09-29-2024 Erythrocyte distribution width (RBC) [Entitic vol] 53.3 fL High 35.1-43.9 [facility] Erythrocyte distribution width (RBC) [Ratio] 53.3 fl High 35.1-43.9 [facility] Estimated glomerular filtrat ion rate (GFR) AmericanOrdered By: Jani Posey on 09-29-2024 Estimated GFR (MDRD) Amer 98 mL/min >60 [facility] Comment on above: GFR Calc Estimation of creatinine saniya aranceOrdered By: Jani Posey on 09-29-2024 Estimated Creatinine Clearance Calc 77.71 ml/min [facility] Glomerular filtration rate ( GFR) estimationOrdered By: Jani Posey on 09-29-2024 Estimated GFR (MDRD) Non-Af Amer 81 mL/min >60 [facility] Comment on above: Non- GFR Calc GFR/1.73 sq M.predicted among non-blacks MDRD (S/P/Bld) [Vol rate/Area] 81 mL/min/{1.73_m2} >60 [facility] Comment on above: Non- GFR Calc Glucose measurementOrdered B y: Jani Posey on 09-29-2024 Glucose [Mass/Vol] 172 mg/dL High 74-106 [facility] Comment on above: Fasting Glucose resu lt greater than or equal to 126 mg/dL suggests DIABETES MELLITUS per A.D.A. criteria. Hematocrit Auto (Bld) [Volum e fraction]Ordered By: Jani Posey on 09-29-2024 Hematocrit (Bld) [Volume fraction] 30.5 % Low 37-47 [facility] Hemoglobin measurementOrdere d By: Jani Posey on 09-29-2024 Hemoglobin (Bld) [Mass/Vol] 8.7 g/dL Low 12.0-15.0 [facility] Immature granulocytes/100 WB C Auto (Bld)Ordered By: Jani Posey on 09-29-2024 Immature granulocytes/100 WBC (Bld) 0.400 % 0.0-0.9 [facility] Comment on above: IG% - Immature Granu locytes (promyelocytes, myelocytes and metamyelocytes) > 1% indicates that a LEFT SHIFT is Present. L501.4020on 09-29-2024 TROPONIN-I HS 6 pg/mL Normal 3.0-54.0 [facility] Comment on above: Order Comment: 'TROP ' Serial specimen #1, #2 or #3: 1 Result Comment: Graciela cohen Note: New Test Units and Gender Specific Reference Ranges. For more information see Policy Stat Procedure [place] High Sensitivity Troponin (TNIH) and attachments. Performed By: #### L 500.4050, L501.4020, L100.0100 ####[facility] [address] [place], [address] Laboratory - Chemistry and C hemistry - challengeOrdered By: Jani Posey on 09-29-2024 AST [Catalytic activity/Vol] 14 U/L Low 15-37 [facility] Lymphocytes Auto (Unsp spec) [#/Vol]Ordered By: Jani Posey on 09-29-2024 Lymphocytes (Bld) [#/Vol] 2.38 10*3/uL 0.83-4.51 [facility] Lymphocytes/100 WBC Auto (Un sp spec)Ordered By: Jani Posey on 09-29-2024 Lymphocytes/100 WBC (Bld) 21.9 % 19-41 [facility] MCV (mean corpuscular volume ) determinationOrdered By: Jani Posey on 09-29-2024 MCV (RBC) [Entitic vol] 79.8 fL Low 81-99 [facility] Mean corpuscular hemoglobin (MCH) determinationOrdered By: Jani Posey on 09-29-2024 MCH (RBC) [Entitic mass] 22.8 pg Low 27.0-32.0 [facility] Mean corpuscular hemoglobin concentration (MCHC) determinationOrdered By: Jani Posey on 09-29-2024 MCHC (RBC) [Mass/Vol] 28.5 g/dL Low 32-36 [facility] Mean platelet volume determi nationOrdered By: Jani Posey on 09-29-2024 Platelet mean volume (Bld) [Entitic vol] 8.5 fL 6.2-12.0 [facility] Monocyte percentageOrdered B y: Jani Posey on 09-29-2024 Monocytes/100 WBC (Bld) 6.9 % 0-10 [facility] Neutrophil percentageOrdered By: Jani Posey on 09-29-2024 Neutrophils/100 WBC (Bld) 70.0 % 47-70 [facility] Nucleated red blood cell per centageOrdered By: Jani Posey on 09-29-2024 Nucleated RBC/100 WBC (Bld) [Ratio] 0 % 0-5 [facility] Platelet countOrdered By: Jayashree Posey on 09-29-2024 Platelets (Bld) [#/Vol] 398 10*3/uL 150-450 [facility] Potassium measurementOrdered By: Jani Posey on 09-29-2024 Potassium [Moles/Vol] 4.2 mmol/L 3.5-5.1 [facility] RBC Auto (Bld) [#/Vol]Ordere d By: Jani Posey on 09-29-2024 RBC (Bld) [#/Vol] 3.82 10*6/uL Low 4.2-5.4 [facility] Serum anion gap measurementO rdered By: Jani Posey on 09-29-2024 Anion gap [Moles/Vol] 8 mmol/L 5-15 [facility] Serum globulin measurementOr dered By: Jani Posey on 09-29-2024 Globulin (S) [Mass/Vol] 4.6 g/dL High 2.2-4.2 [facility] Serum or plasma alanine han otransferase (ALT) measurementOrdered By: Jani Posey on 09-29-2024 ALT [Catalytic activity/Vol] 14 U/L 13-56 [facility] Serum or plasma albumin zara urement (mass/volume)Ordered By: Jani Posey on 09-29-2024 Albumin [Mass/Vol] 2.9 g/dL Low 3.2-5.0 [facility] Serum or plasma alkaline alvarez sphatase measurementOrdered By: Jani Posey on 09-29-2024 ALP [Catalytic activity/Vol] 89 U/L 45-117 [facility] Serum or plasma calcium zara urement (mass/volume)Ordered By: Jani Posey on 09-29-2024 Calcium [Mass/Vol] 8.8 mg/dL 8.5-10.1 [facility] Serum or plasma creatinine m easurement (mass/volume)Ordered By: Jani Posey on 09-29-2024 Creatinine [Mass/Vol] 0.76 mg/dL 0.55-1.02 [facility] Comment on above: The validity of the calculated GFR & GFRAA in patients over 70 years has not been determined. Clinical correlation is essential. Serum or plasma urea nitroge n measurement (mass/volume)Ordered By: Jani Posey on 09-29-2024 Urea nitrogen [Mass/Vol] 22 mg/dL High 7-18 [facility] Sodium levelOrdered By: Jani Posey on 09-29-2024 Sodium [Moles/Vol] 132 mmol/L Low 136-145 [facility] Total proteinOrdered By: Michelle Posey on 09-29-2024 Protein [Mass/Vol] 7.5 g/dL 6.4-8.2 [facility] Troponin IOrdered By: Jani jacobs on 09-29-2024 Troponin I 6 pg/mL 3.0-54.0 [facility] Comment on above: Please Note: New Radhika t Units and Gender Specific Reference Ranges. For more information see Policy Stat Procedure [place] High Sensitivity Troponin (TNIH) and attachments. Troponin I High Sensitivity 6 pg/mL 3.0-54.0 [facility] Comment on above: Please Note: New Radhika t Units and Gender Specific Reference Ranges. For more information see Policy Stat Procedure [place] High Sensitivity Troponin (TNIH) and attachments. Venous blood ammonia measure mentOrdered By: Jani Posey on 09-29-2024 Ammonia (P) [Moles/Vol] 18.0 umol/L 11-32 [facility] White blood cell (WBC) count Ordered By: Jani Posey on 09-29-2024 WBC (Bld) [#/Vol] 10.9 10*3/uL 4.4-11.0 [facility] Emergency Department Summary on 09-28-2024 Emergency Department Summary Normal [facility] Influenza virus A and B and SARS-CoV-2 (COVID-19) and Respiratory syncytial virus RNAOrdered By: Carolyne Leigh on 09-28-2024 SARS-CoV-2 (COVID-19) RNA BARBER+probe Ql (Unsp spec) [facility] M100.678on 09-28-2024 M100.678 Pending SARS-CoV-2 (COVID 19) Negative INFLUENZA A Negative INFLUENZA B Negative RSV PCR Negative Normal [facility] Comment on above: Performed By: #### M 100.678 ####[facility] [address] [place], [address] Absolute lymphocyte countOrd ered By: Clau Mcclain on 09-20-2024 Lymphocytes Auto (Unsp spec) [#/Vol] 3.11 10*3/uL 0.83-4.51 [facility] Absolute neutrophil countOrd ered By: Clau Mcclain on 09-20-2024 Neutrophils (Bld) [#/Vol] 4.3 10*3/uL 2.0-7.7 [facility] Automated lymphocyte count a s percentage of total leukocytesOrdered By: Clau Mcclain on 09-20-2024 Lymphocytes/100 WBC Auto (Unsp spec) 37.0 % 19-41 [facility] Basophil percentageOrdered B y: Clau Mcclain on 09-20-2024 Basophils/100 WBC (Bld) 0.4 % 0-1 [facility] CBC W/Diff, Automatedon 08-30 Absolute Lymph 3.11 X10 3/uL Normal 0.83-4.51 [facility] Comment on above: Performed By: #### L 503.6075, L503.6150, L100.0100 ####[facility] [address] [place], [address] Absolute Neut 4.3 X10 3/uL Normal 2.0-7.7 [facility] Comment on above: Performed By: #### L 503.6075, L503.6150, L100.0100 ####[facility] [address] [place], [address] Basophils/100 WBC (Bld) 0.4 % Normal 0-1 [facility] Comment on above: Performed By: #### L 503.6075, L503.6150, L100.0100 ####[facility] [address] [place], [address] Eosinophils/100 WBC (Bld) 0.8 % Normal 0-5 [facility] Comment on above: Performed By: #### L 503.6075, L503.6150, L100.0100 ####[facility] [address] [place], [address] Erythrocyte distribution width (RBC) [Ratio] 17.6 % High 11.6-14.6 [facility] Comment on above: Performed By: #### L 503.6075, L503.6150, L100.0100 ####[facility] [address] [place], [address] Hematocrit (Bld) [Volume fraction] 33.1 % Low 37-47 [facility] Comment on above: Performed By: #### L 503.6075, L503.6150, L100.0100 ####[facility] [address] [place], [address] Hemoglobin (Bld) [Mass/Vol] 9.3 g/dL Low 12.0-15.0 [facility] Comment on above: Performed By: #### L 503.6075, L503.6150, L100.0100 ####[facility] [address] [place], [address] IG% 0.400 Normal 0.0-0.9 [facility] Comment on above: Result Comment: IG% - Immature Granulocytes (promyelocytes, myelocytes andmetamyelocytes) > 1% indicates that a LEFT SHIFT is Present. Performed By: #### L 503.6075, L503.6150, L100.0100 ####[facility] [address] [place], [address] Lymphocytes/100 WBC (Bld) 37.0 % Normal 19-41 [facility] Comment on above: Performed By: #### L 503.6075, L503.6150, L100.0100 ####[facility] [address] [place], [address] MCH (RBC) [Entitic mass] 22.2 pg Low 27.0-32.0 [facility] Comment on above: Performed By: #### L 503.6075, L503.6150, L100.0100 ####[facility] [address] [place], [address] MCHC (RBC) [Mass/Vol] 28.1 g/dL Low 32-36 [facility] Comment on above: Performed By: #### L 503.6075, L503.6150, L100.0100 ####[facility] [address] [place], [address] MCV (RBC) [Entitic vol] 79.0 fL Low 81-99 [facility] Comment on above: Performed By: #### L 503.6075, L503.6150, L100.0100 ####[facility] [address] [place], [address] Monocytes/100 WBC (Bld) 10.1 % High 0-10 [facility] Comment on above: Performed By: #### L 503.6075, L503.6150, L100.0100 ####[facility] [address] [place], [address] Neutrophils/100 WBC (Bld) 51.3 % Normal 47-70 [facility] Comment on above: Performed By: #### L 503.6075, L503.6150, L100.0100 ####[facility] [address] [place], [address] Nucleated RBC (Bld) [#/Vol] 0 10*3/uL Normal 0-5 [facility] Comment on above: Performed By: #### L 503.6075, L503.6150, L100.0100 ####[facility] [address] [place], [address] Platelet mean volume (Bld) [Entitic vol] 8.1 fL Normal 6.2-12.0 [facility] Comment on above: Performed By: #### L 503.6075, L503.6150, L100.0100 ####[facility] [address] [place], [address] Platelets (Bld) [#/Vol] 475 10*3/uL High 150-450 [facility] Comment on above: Performed By: #### L 503.6075, L503.6150, L100.0100 ####[facility] [address] [place], [address] RBC (Bld) [#/Vol] 4.19 10*6/uL Low 4.2-5.4 [facility] Comment on above: Performed By: #### L 503.6075, L503.6150, L100.0100 ####[facility] [address] [place], [address] RDW SD 50.6 fl High 35.1-43.9 [facility] Comment on above: Performed By: #### L 503.6075, L503.6150, L100.0100 ####[facility] [address] [place], [address] WBC (Bld) [#/Vol] 8.4 10*3/uL Normal 4.4-11.0 [facility] Comment on above: Performed By: #### L 503.6075, L503.6150, L100.0100 ####[facility] [address] [place], [address] Eosinophil percentageOrdered By: Clau Mcclain on 09-20-2024 Eosinophils/100 WBC (Bld) 0.8 % 0-5 [facility] Erythrocyte distribution wid th ratioOrdered By: Clau Mcclain on 09-20-2024 Erythrocyte distribution width (RBC) [Ratio] 17.6 % High 11.6-14.6 [facility] Erythrocyte distribution wid th standard deviationOrdered By: Clau Mcclain on 09-20-2024 Erythrocyte distribution width (RBC) [Entitic vol] 50.6 fL High 35.1-43.9 [facility] Erythrocyte distribution width (RBC) [Ratio] 50.6 fl High 35.1-43.9 [facility] Gastroenterology Visit Repor ton 09-20-2024 Gastroenterology Visit Report Normal [facility] Hematocrit Auto (Bld) [Volum e fraction]Ordered By: Clau Mcclain on 09-20-2024 Hematocrit (Bld) [Volume fraction] 33.1 % Low 37-47 [facility] Hemoglobin measurementOrdere d By: Clau Mcclain on 09-20-2024 Hemoglobin (Bld) [Mass/Vol] 9.3 g/dL Low 12.0-15.0 [facility] Immature granulocytes/100 WB C Auto (Bld)Ordered By: Clau Mcclain on 09-20-2024 Immature granulocytes/100 WBC (Bld) 0.400 % 0.0-0.9 [facility] Comment on above: IG% - Immature Granu locytes (promyelocytes, myelocytes and metamyelocytes) > 1% indicates that a LEFT SHIFT is Present. Ironon 09-20-2024 Iron [Mass/Vol] 30 ug/dL Low 50-170 [facility] Comment on above: Performed By: #### L 503.6075, L503.6150, L100.0100 ####[facility] [address] [place], [address] Iron (Unsp spec) [Mass/Mass] Ordered By: Clau Mcclain on 09-20-2024 Iron [Mass/Vol] 30 ug/dL Low 50-170 [facility] Iron Binding Capacity,Totalo n 09-20-2024 TIBC 391 ug/dL Normal 250-450 [facility] Comment on above: Performed By: #### L 503.6075, L503.6150, L100.0100 ####[facility] [address] [place], [address] Iron measurement (mass/mass) Ordered By: Clau Mcclain on 09-20-2024 Iron (Unsp spec) [Mass/Mass] 30 ug/dL Low 50-170 [facility] Lymphocytes Auto (Unsp spec) [#/Vol]Ordered By: Clau Mcclain on 09-20-2024 Lymphocytes (Bld) [#/Vol] 3.11 10*3/uL 0.83-4.51 [facility] Lymphocytes/100 WBC Auto (Un sp spec)Ordered By: Clau Mcclain on 09-20-2024 Lymphocytes/100 WBC (Bld) 37.0 % 19-41 [facility] MCV (mean corpuscular volume ) determinationOrdered By: Clau Mcclain on 09-20-2024 MCV (RBC) [Entitic vol] 79.0 fL Low 81-99 [facility] Mean corpuscular hemoglobin (MCH) determinationOrdered By: Clau Mcclain on 09-20-2024 MCH (RBC) [Entitic mass] 22.2 pg Low 27.0-32.0 [facility] Mean corpuscular hemoglobin concentration (MCHC) determinationOrdered By: Clau Mcclain on 09-20-2024 MCHC (RBC) [Mass/Vol] 28.1 g/dL Low 32-36 [facility] Mean platelet volume determi nationOrdered By: Clau Mcclain on 09-20-2024 Platelet mean volume (Bld) [Entitic vol] 8.1 fL 6.2-12.0 [facility] Monocyte percentageOrdered B y: Clau Mcclain on 09-20-2024 Monocytes/100 WBC (Bld) 10.1 % High 0-10 [facility] Neutrophil percentageOrdered By: Clau Mcclain on 09-20-2024 Neutrophils/100 WBC (Bld) 51.3 % 47-70 [facility] Nucleated red blood cell per centageOrdered By: Clau Mcclain on 09-20-2024 Nucleated RBC/100 WBC (Bld) [Ratio] 0 % 0-5 [facility] Platelet countOrdered By: Mann Mcclain on 09-20-2024 Platelets (Bld) [#/Vol] 475 10*3/uL High 150-450 [facility] RBC Auto (Bld) [#/Vol]Ordere d By: Clau Mcclain on 09-20-2024 RBC (Bld) [#/Vol] 4.19 10*6/uL Low 4.2-5.4 [facility] TIBCOrdered By: Clau stevens on 09-20-2024 Total Iron Binding Capacity 391 ug/dL 250-450 [facility] White blood cell (WBC) count Ordered By: Clau Mcclain on 09-20-2024 WBC (Bld) [#/Vol] 8.4 10*3/uL 4.4-11.0 [facility] Knee 4 or More Viewson 09-19 Knee 4 or More Views Normal [facility] Orthopedic Visit Reporton Orthopedic Visit Report Normal [facility] Colonoscopy Reporton 025 Colonoscopy Report Normal [facility] MR/POSTOP.ANEon 08-30-2024 MR/POSTOP.ANE Normal [facility] MR/ILAOEWTF6qq 08-30-2024 MR/POSTOPAN2 Normal [facility] Surgery Specimen Level Félxi 08-30-2024 Surgery Specimen Level IV Normal [facility] Comment on above: Performed By: #### P SUIV ####[facility] [address] [place], [address] MR/PAT.ANEon 08-28-2024 MR/PAT.ANE Normal [facility] Lumbar Spine 2 or 3 Viewson 08-21-2024 Lumbar Spine 2 or 3 Views Normal [facility] Miscellaneous Lab Procedureo n 08-21-2024 MISC LAB TEST Normal [facility] Comment on above: Order Comment: SERUM RF Enhanced Liver Fibrosis (ELF)??? Test Result Comment: TEST RESULTS LIMITSELF(TM) Score 9.97 High <9.80ELF(TM) Score Interpretation: Risk cut-offs to assess the likelihood of progression to cirrhosis and liver-related clinical events within 3.9 years following baseline ELF score (IQR: 14.0-22.4 months)*: Lower risk < 9.80 Mid risk 9.80 - 11.29 Higher risk >11.29 Note: The ELF(TM) Score is a unitless numerical value. *Med SA, Hussain VW, Damir T, et al. 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 J Hepatol. 2020 Feb;73(1):26-39. TESTING PERFORMED AT [facility]. ORIGINAL REPORT ON FILE IN LAB CONTAINS ADDITIONAL TEST SITE INFORMATION. Performed By: #### L 3890.6100, L3890.6200, L3100.0460, L801.1541, L3890.6300, L3100.0300, L100.0100, L500.4050 ####[facility] [address] [place], [address] Hepatitis A AB, Totalon 12-2 HEPATITIS A,TOT Negative Normal Negative [facility] Comment on above: Result Comment: Comm ent: The HAV total antibody assay detects both IgG andIgM but does not differentiate between them. A negativeresult suggests susceptibility to infection. A positiveresult could be due to vaccination, previously resolvedinfection or active infection. Testing for HAV IgM shouldbe performed if active HAV infection is suspected. Labcorpoffers profiles that will automatically reflex positive HAVtotal antibody results to IgM (e.g., panel #[id number] HAVAntibody w/ Rfx).Performed at: [address] [id number] Director: Meliton Browning PhD, Phone: [phone] Performed By: #### L 3890.6100, L3890.6200, L3100.0460, L801.1541, L3890.6300, L3100.0300, L100.0100, L500.4050 ####[facility] [address] [place], [place], [id number] Hepatitis B Core Ab Totalon 08-17-2024 HEP B CORE,TOT Negative Normal Negative [facility] Comment on above: Performed By: #### L 3890.6100, L3890.6200, L3100.0460, L801.1541, L3890.6300, L3100.0300, L100.0100, L500.4050 ####[facility] [address] [place], [place], [id number] Absolute neutrophil countOrd ered By: Clau Mcclain on 08-16-2024 Neutrophils (Bld) [#/Vol] 3.3 10*3/uL 2.0-7.7 [facility] Albumin to globulin ratioOrd ered By: Clau Mcclain on 08-16-2024 Albumin/Globulin [Mass ratio] 0.8 {ratio} Low 0.9-2.4 [facility] Basophil percentageOrdered B y: Clau Mcclain on 08-16-2024 Basophils/100 WBC (Bld) 0.3 % 0-1 [facility] Bilirubin, totalOrdered By: Clau Mcclain on 08-16-2024 Bilirubin [Mass/Vol] 0.20 mg/dL 0.20-1.00 [facility] Comment on above: For patients on eltr ombopag therapy, use of Dimension Hardin TBIL is not recommended. Blood urea nitrogen (BUN)/cr eatinine ratioOrdered By: Clau Mcclain on 08-16-2024 Urea nitrogen/Creatinine [Mass ratio] 25.1 mg/mg High 06-17 [facility] CBC W/Diff, Automatedon 07-29 Absolute Lymph 2.10 X10 3/uL Normal 0.83-4.51 [facility] Comment on above: Performed By: #### L 3890.6100, L3890.6200, L3100.0460, L801.1541, L3890.6300, L3100.0300, L100.0100, L500.4050 ####[facility] [address] [place], [address] Absolute Neut 3.3 X10 3/uL Normal 2.0-7.7 [facility] Comment on above: Performed By: #### L 3890.6100, L3890.6200, L3100.0460, L801.1541, L3890.6300, L3100.0300, L100.0100, L500.4050 ####[facility] [address] [place], [address] Basophils/100 WBC (Bld) 0.3 % Normal 0-1 [facility] Comment on above: Performed By: #### L 3890.6100, L3890.6200, L3100.0460, L801.1541, L3890.6300, L3100.0300, L100.0100, L500.4050 ####[facility] [address] [place], [address] Eosinophils/100 WBC (Bld) 1.8 % Normal 0-5 [facility] Comment on above: Performed By: #### L 3890.6100, L3890.6200, L3100.0460, L801.1541, L3890.6300, L3100.0300, L100.0100, L500.4050 ####[facility] [address] [place], [address] Erythrocyte distribution width (RBC) [Ratio] 16.4 % High 11.6-14.6 [facility] Comment on above: Performed By: #### L 3890.6100, L3890.6200, L3100.0460, L801.1541, L3890.6300, L3100.0300, L100.0100, L500.4050 ####[facility] [address] [place], [address] Hematocrit (Bld) [Volume fraction] 34.6 % Low 37-47 [facility] Comment on above: Performed By: #### L 3890.6100, L3890.6200, L3100.0460, L801.1541, L3890.6300, L3100.0300, L100.0100, L500.4050 ####[facility] [address] [place], [address] Hemoglobin (Bld) [Mass/Vol] 9.8 g/dL Low 12.0-15.0 [facility] Comment on above: Performed By: #### L 3890.6100, L3890.6200, L3100.0460, L801.1541, L3890.6300, L3100.0300, L100.0100, L500.4050 ####[facility] [address] [place], [address] IG% 0.200 Normal 0.0-0.9 [facility] Comment on above: Result Comment: IG% - Immature Granulocytes (promyelocytes, myelocytes andmetamyelocytes) > 1% indicates that a LEFT SHIFT is Present. Performed By: #### L 3890.6100, L3890.6200, L3100.0460, L801.1541, L3890.6300, L3100.0300, L100.0100, L500.4050 ####[facility] [address] [place], [address] Lymphocytes/100 WBC (Bld) 33.7 % Normal 19-41 [facility] Comment on above: Performed By: #### L 3890.6100, L3890.6200, L3100.0460, L801.1541, L3890.6300, L3100.0300, L100.0100, L500.4050 ####[facility] [address] [place], [address] MCH (RBC) [Entitic mass] 24.3 pg Low 27.0-32.0 [facility] Comment on above: Performed By: #### L 3890.6100, L3890.6200, L3100.0460, L801.1541, L3890.6300, L3100.0300, L100.0100, L500.4050 ####[facility] [address] [place], [address] MCHC (RBC) [Mass/Vol] 28.3 g/dL Low 32-36 [facility] Comment on above: Performed By: #### L 3890.6100, L3890.6200, L3100.0460, L801.1541, L3890.6300, L3100.0300, L100.0100, L500.4050 ####[facility] [address] [place], [address] MCV (RBC) [Entitic vol] 85.9 fL Normal 81-99 [facility] Comment on above: Performed By: #### L 3890.6100, L3890.6200, L3100.0460, L801.1541, L3890.6300, L3100.0300, L100.0100, L500.4050 ####[facility] [address] [place], [address] Monocytes/100 WBC (Bld) 11.5 % High 0-10 [facility] Comment on above: Performed By: #### L 3890.6100, L3890.6200, L3100.0460, L801.1541, L3890.6300, L3100.0300, L100.0100, L500.4050 ####[facility] [address] [place], [address] Neutrophils/100 WBC (Bld) 52.5 % Normal 47-70 [facility] Comment on above: Performed By: #### L 3890.6100, L3890.6200, L3100.0460, L801.1541, L3890.6300, L3100.0300, L100.0100, L500.4050 ####[facility] [address] [place], [address] Nucleated RBC (Bld) [#/Vol] 0 10*3/uL Normal 0-5 [facility] Comment on above: Performed By: #### L 3890.6100, L3890.6200, L3100.0460, L801.1541, L3890.6300, L3100.0300, L100.0100, L500.4050 ####[facility] [address] [place], [address] Platelet mean volume (Bld) [Entitic vol] 8.2 fL Normal 6.2-12.0 [facility] Comment on above: Performed By: #### L 3890.6100, L3890.6200, L3100.0460, L801.1541, L3890.6300, L3100.0300, L100.0100, L500.4050 ####[facility] [address] [place], [address] Platelets (Bld) [#/Vol] 426 10*3/uL Normal 150-450 [facility] Comment on above: Performed By: #### L 3890.6100, L3890.6200, L3100.0460, L801.1541, L3890.6300, L3100.0300, L100.0100, L500.4050 ####[facility] [address] [place], [address] RBC (Bld) [#/Vol] 4.03 10*6/uL Low 4.2-5.4 [facility] Comment on above: Performed By: #### L 3890.6100, L3890.6200, L3100.0460, L801.1541, L3890.6300, L3100.0300, L100.0100, L500.4050 ####[facility] [address] [place], [place], [id number] RDW SD 51.8 fl High 35.1-43.9 [facility] Comment on above: Performed By: #### L 3890.6100, L3890.6200, L3100.0460, L801.1541, L3890.6300, L3100.0300, L100.0100, L500.4050 ####[facility] [address] [place], [place], [id number] WBC (Bld) [#/Vol] 6.2 10*3/uL Normal 4.4-11.0 [facility] Comment on above: Performed By: #### L 3890.6100, L3890.6200, L3100.0460, L801.1541, L3890.6300, L3100.0300, L100.0100, L500.4050 ####[facility] [address] [place], [place], [id number] Carbon dioxide measurementOr dered By: Clau Mcclain on 08-16-2024 CO2 [Moles/Vol] 29.0 mmol/L 21.0-32.0 [facility] Chloride measurementOrdered By: Clau Mcclain on 08-16-2024 Chloride [Moles/Vol] 102 mmol/L 98-107 [facility] Metabolic Prof ilon 08-16-2024 Albumin [Mass/Vol] 3.6 g/dL Normal 3.2-5.0 [facility] Comment on above: Performed By: #### L 3890.6100, L3890.6200, L3100.0460, L801.1541, L3890.6300, L3100.0300, L100.0100, L500.4050 ####[facility] [address] [place], [address] Albumin/Globulin [Mass ratio] 0.8 {ratio} Low 0.9-2.4 [facility] Comment on above: Performed By: #### L 3890.6100, L3890.6200, L3100.0460, L801.1541, L3890.6300, L3100.0300, L100.0100, L500.4050 ####[facility] [address] [place], [address] ALK P 91 U/L Normal 45-117 [facility] Comment on above: Performed By: #### L 3890.6100, L3890.6200, L3100.0460, L801.1541, L3890.6300, L3100.0300, L100.0100, L500.4050 ####[facility] [address] [place], [address] ALT [Catalytic activity/Vol] 19 U/L Normal 13-56 [facility] Comment on above: Performed By: #### L 3890.6100, L3890.6200, L3100.0460, L801.1541, L3890.6300, L3100.0300, L100.0100, L500.4050 ####[facility] [address] [place], [address] AST [Catalytic activity/Vol] 20 U/L Normal 15-37 [facility] Comment on above: Performed By: #### L 3890.6100, L3890.6200, L3100.0460, L801.1541, L3890.6300, L3100.0300, L100.0100, L500.4050 ####[facility] [address] [place], [address] Bilirubin [Mass/Vol] 0.20 mg/dL Normal 0.20-1.00 [facility] Comment on above: Result Comment: For patients on eltrombopag therapy, use of Dimension Hardin TBIL is not recommended. Performed By: #### L 3890.6100, L3890.6200, L3100.0460, L801.1541, L3890.6300, L3100.0300, L100.0100, L500.4050 ####[facility] [address] [place], [address] BUN/CRE 25.1 RATIO High 10-20 [facility] Comment on above: Performed By: #### L 3890.6100, L3890.6200, L3100.0460, L801.1541, L3890.6300, L3100.0300, L100.0100, L500.4050 ####[facility] [address] [place], [address] CA,Total 9.5 mg/dL Normal 8.5-10.1 [facility] Comment on above: Performed By: #### L 3890.6100, L3890.6200, L3100.0460, L801.1541, L3890.6300, L3100.0300, L100.0100, L500.4050 ####[facility] [address] [place], [address] Chloride [Moles/Vol] 102 mmol/L Normal 98-107 [facility] Comment on above: Performed By: #### L 3890.6100, L3890.6200, L3100.0460, L801.1541, L3890.6300, L3100.0300, L100.0100, L500.4050 ####[facility] [address] [place], [address] CO2 [Moles/Vol] 29.0 mmol/L Normal 21.0-32.0 [facility] Comment on above: Performed By: #### L 3890.6100, L3890.6200, L3100.0460, L801.1541, L3890.6300, L3100.0300, L100.0100, L500.4050 ####[facility] [address] [place], [place], [id number] Creatinine [Mass/Vol] 0.68 mg/dL Normal 0.55-1.02 [facility] Comment on above: Result Comment: The validity of the calculated GFR GFRAA in patients over70 years has not been determined. Clinical correlation isessential. Performed By: #### L 3890.6100, L3890.6200, L3100.0460, L801.1541, L3890.6300, L3100.0300, L100.0100, L500.4050 ####[facility] [address] [place], [address](286) EST GFR - AA 111 mL/min Normal >60 [facility] Comment on above: Result Comment: Afri can Macanese GFR Calc Performed By: #### L 3890.6100, L3890.6200, L3100.0460, L801.1541, L3890.6300, L3100.0300, L100.0100, L500.4050 ####[facility] [address] [place], [address] GAP 4 Low 5-15 [facility] Comment on above: Performed By: #### L 3890.6100, L3890.6200, L3100.0460, L801.1541, L3890.6300, L3100.0300, L100.0100, L500.4050 ####[facility] [address] [place], [address](467) GFR/1.73 sq M.predicted among non-blacks MDRD (S/P/Bld) [Vol rate/Area] 92 mL/min/{1.73_m2} Normal >60 [facility] Comment on above: Result Comment: Non- GFR Calc Performed By: #### L 3890.6100, L3890.6200, L3100.0460, L801.1541, L3890.6300, L3100.0300, L100.0100, L500.4050 ####[facility] [address] [place], [address] Globulin (S) [Mass/Vol] 4.6 g/dL High 2.2-4.2 [facility] Comment on above: Performed By: #### L 3890.6100, L3890.6200, L3100.0460, L801.1541, L3890.6300, L3100.0300, L100.0100, L500.4050 ####[facility] [address] [place], [address] Glucose [Mass/Vol] 81 mg/dL Normal 74-106 [facility] Comment on above: Performed By: #### L 3890.6100, L3890.6200, L3100.0460, L801.1541, L3890.6300, L3100.0300, L100.0100, L500.4050 ####[facility] [address] [place], [address] Potassium [Moles/Vol] 4.4 mmol/L Normal 3.5-5.1 [facility] Comment on above: Performed By: #### L 3890.6100, L3890.6200, L3100.0460, L801.1541, L3890.6300, L3100.0300, L100.0100, L500.4050 ####[facility] [address] [place], [address] Sodium [Moles/Vol] 135 mmol/L Low 136-145 [facility] Comment on above: Performed By: #### L 3890.6100, L3890.6200, L3100.0460, L801.1541, L3890.6300, L3100.0300, L100.0100, L500.4050 ####[facility] [address] [place], [place], [id number] T PROT 8.2 g/dL Normal 6.4-8.2 [facility] Comment on above: Performed By: #### L 3890.6100, L3890.6200, L3100.0460, L801.1541, L3890.6300, L3100.0300, L100.0100, L500.4050 ####[facility] [address] [place], [place], [id number] Urea nitrogen [Mass/Vol] 17 mg/dL Normal 7-18 [facility] Comment on above: Performed By: #### L 3890.6100, L3890.6200, L3100.0460, L801.1541, L3890.6300, L3100.0300, L100.0100, L500.4050 ####[facility] [address] [place], [place], [phone] Eosinophil percentageOrdered By: Clau Mcclain on 08-16-2024 Eosinophils/100 WBC (Bld) 1.8 % 0-5 [facility] Erythrocyte distribution wid th ratioOrdered By: Clau Mcclain on 08-16-2024 Erythrocyte distribution width (RBC) [Ratio] 16.4 % High 11.6-14.6 [facility] Erythrocyte distribution wid th standard deviationOrdered By: Clau Mcclain on 08-16-2024 Erythrocyte distribution width (RBC) [Entitic vol] 51.8 fL High 35.1-43.9 [facility] Estimated glomerular filtrat ion rate (GFR) AmericanOrdered By: Clau Mcclain on 08-16-2024 Estimated GFR (MDRD) Amer 111 mL/min >60 [facility] Comment on above: GFR Calc Gastroenterology Visit Repor ton 08-16-2024 Gastroenterology Visit Report Normal [facility] Glomerular filtration rate ( GFR) estimationOrdered By: Clau Mcclain on 08-16-2024 Estimated GFR (MDRD) Non-Af Amer 92 mL/min >60 [facility] Comment on above: Non- GFR Calc Glucose measurementOrdered B y: Clau Mcclain on 08-16-2024 Glucose [Mass/Vol] 81 mg/dL 74-106 [facility] HBV core Ab Ql (S)Ordered By : Clau Johny on 08-16-2024 Hepatitis B Core Total Antibody Negative Negative [facility] HBV surface IgG Ql (S)Ordere d By: Clau Johny on 08-16-2024 Hepatitis B Surface Antibody Non-Reactive [facility] Comment on above: Non Reactive: Incons istent with immunity less than <10 mIU/mL Reactive: Consistent with immunity greater than or equal to 10 mIU/mL Hematocrit Auto (Bld) [Volum e fraction]Ordered By: Clau Mcclain on 08-16-2024 Hematocrit (Bld) [Volume fraction] 34.6 % Low 37-47 [facility] Hemoglobin measurementOrdere d By: Clau Mcclain on 08-16-2024 Hemoglobin (Bld) [Mass/Vol] 9.8 g/dL Low 12.0-15.0 [facility] Hepatitis A virus total anti body assayOrdered By: Clau Johny on 08-16-2024 Hepatitis A Antibody Total Negative Negative [facility] Comment on above: Comment: The HAV tot al antibody assay detects both IgG andIgM but does not differentiate between them. A negativeresult suggests susceptibility to infection. A positiveresult could be due to vaccination, previously resolvedinfection or active infection. Testing for HAV IgM shouldbe performed if active HAV infection is suspected. Labcorpoffers profiles that will automatically reflex positive HAVtotal antibody results to IgM (e.g., panel #[id number] HAVAntibody w/ Rfx).Performed at: [address] [id number] Director: Meliton Browning PhD, Phone: [phone] Hepatitis B Surface Antibody on 08-16-2024 HEP B Surf Ab Non-Reactive Normal [facility] Comment on above: Order Comment: Reaso n for Exam: steatosis Result Comment: Non Reactive: Inconsistent with immunity less than <10 mIU/mL Reactive: Consistent with immunity greater than or equal to 10 mIU/mL Performed By: #### L 3890.6100, L3890.6200, L3100.0460, L801.1541, L3890.6300, L3100.0300, L100.0100, L500.4050 ####[facility] [address] [place], [address] Hepatitis B Surface Antigeno n 08-16-2024 HEP B Surf Ag Non-Reactive Normal Nonreactive [facility] Comment on above: Order Comment: Reaso n for Exam: steatosis Performed By: #### L 3890.6100, L3890.6200, L3100.0460, L801.1541, L3890.6300, L3100.0300, L100.0100, L500.4050 ####[facility] [address] [place], [address] Hepatitis B surface antigen detectionOrdered By: Clau Mcclain on 08-16-2024 Hepatitis B Surface Antigen Non-Reactive Nonreactive [facility] Hepatitis C Antibodyon 08-16 Hepatitis C AB Non-Reactive [facility] Comment on above: Order Comment: Reaso n for Exam: steatosis Result Comment: Non Reactive: < 0.8 Equivocal: >/= 0.8 to < 1.0 Reactive: >/= 1.0The CDC requires that a reactive/equivocal HCV antibodyresult be sent out for confirmation. HCV Quant by PCRtesting. Performed By: #### L 3890.6100, L3890.6200, L3100.0460, L801.1541, L3890.6300, L3100.0300, L100.0100, L500.4050 ####[facility] [address] [place], [address] Hepatitis C virus antibody a ssayOrdered By: Clau Mcclain on 08-16-2024 Hepatitis C Antibody Non-Reactive Nonreactive [facility] Comment on above: Non Reactive: < 0.8 Equivocal: >/= 0.8 to < 1.0 Reactive: >/= 1.0The CDC requires that a reactive/equivocal HCV antibody result be sent out for confirmation. HCV Quant by PCR testing. Immature granulocytes/100 WB C Auto (Bld)Ordered By: Clau Mcclain on 08-16-2024 Immature granulocytes/100 WBC (Bld) 0.200 % 0.0-0.9 [facility] Comment on above: IG% - Immature Granu locytes (promyelocytes, myelocytes and metamyelocytes) > 1% indicates that a LEFT SHIFT is Present. Laboratory - Chemistry and C hemistry - challengeOrdered By: Clau Mcclain on 08-16-2024 AST [Catalytic activity/Vol] 20 U/L 15-37 [facility] Lymphocytes Auto (Unsp spec) [#/Vol]Ordered By: Clau Mcclain on 08-16-2024 Lymphocytes (Bld) [#/Vol] 2.10 10*3/uL 0.83-4.51 [facility] Lymphocytes/100 WBC Auto (Un sp spec)Ordered By: Clau Mcclain on 08-16-2024 Lymphocytes/100 WBC (Bld) 33.7 % 19-41 [facility] MCV (mean corpuscular volume ) determinationOrdered By: Clau Mcclain on 08-16-2024 MCV (RBC) [Entitic vol] 85.9 fL 81-99 [facility] Mean corpuscular hemoglobin (MCH) determinationOrdered By: Clau Mcclain on 08-16-2024 MCH (RBC) [Entitic mass] 24.3 pg Low 27.0-32.0 [facility] Mean corpuscular hemoglobin concentration (MCHC) determinationOrdered By: Clau Mcclain on 08-16-2024 MCHC (RBC) [Mass/Vol] 28.3 g/dL Low 32-36 [facility] Mean platelet volume determi nationOrdered By: Clau Mcclain on 08-16-2024 Platelet mean volume (Bld) [Entitic vol] 8.2 fL 6.2-12.0 [facility] Miscellaneous procedureOrder ed By: Clau Mcclain on 08-16-2024 Miscellaneous Test See comment [facility] Comment on above: TEST RESULTS LIMITS ELF(TM) Score 9.97 High <9.80 ELF(TM) Score Interpretation: Risk cut-offs to assess the likelihood of progression to cirrhosis and liver-related clinical events within 3.9 years following baseline ELF score (IQR: 14.0-22.4 months)*: Lower risk < 9.80 Mid risk 9.80 - 11.29 Higher risk >11.29 Note: The ELF(TM) Score is a unitless numerical value. *Med SA, Hussain VW, Damir T, et al. 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 J Hepatol. 2020 Feb;73(1):26-39. TESTING PERFORMED AT [facility]. ORIGINAL REPORT ON FILE IN LAB CONTAINS ADDITIONAL TEST SITE INFORMATION. Monocyte percentageOrdered B y: Clau Mcclain on 08-16-2024 Monocytes/100 WBC (Bld) 11.5 % High 0-10 [facility] Neutrophil percentageOrdered By: Clau Mccalin on 08-16-2024 Neutrophils/100 WBC (Bld) 52.5 % 47-70 [facility] Nucleated red blood cell per centageOrdered By: Clau Mcclain on 08-16-2024 Nucleated RBC/100 WBC (Bld) [Ratio] 0 % 0-5 [facility] Platelet countOrdered By: Mann Mcclain on 08-16-2024 Platelets (Bld) [#/Vol] 426 10*3/uL 150-450 [facility] Potassium measurementOrdered By: Clau Mcclain on 08-16-2024 Potassium [Moles/Vol] 4.4 mmol/L 3.5-5.1 [facility] RBC Auto (Bld) [#/Vol]Ordere d By: Clau Mcclain on 08-16-2024 RBC (Bld) [#/Vol] 4.03 10*6/uL Low 4.2-5.4 [facility] Serum anion gap measurementO rdered By: Clau Mcclain on 08-16-2024 Anion gap [Moles/Vol] 4 mmol/L Low 5-15 [facility] Serum globulin measurementOr dered By: Clau Mcclain on 08-16-2024 Globulin (S) [Mass/Vol] 4.6 g/dL High 2.2-4.2 [facility] Serum or plasma alanine han otransferase (ALT) measurementOrdered By: Clau Mcclain on 08-16-2024 ALT [Catalytic activity/Vol] 19 U/L 13-56 [facility] Serum or plasma albumin zara urement (mass/volume)Ordered By: Clau Mcclain on 08-16-2024 Albumin [Mass/Vol] 3.6 g/dL 3.2-5.0 [facility] Serum or plasma alkaline alvarez sphatase measurementOrdered By: Clau Mcclani on 08-16-2024 ALP [Catalytic activity/Vol] 91 U/L 45-117 [facility] Serum or plasma calcium zara urement (mass/volume)Ordered By: Clau Mcclain on 08-16-2024 Calcium [Mass/Vol] 9.5 mg/dL 8.5-10.1 [facility] Serum or plasma creatinine m easurement (mass/volume)Ordered By: Clau Mcclain on 08-16-2024 Creatinine [Mass/Vol] 0.68 mg/dL 0.55-1.02 [facility] Comment on above: The validity of the calculated GFR & GFRAA in patients over 70 years has not been determined. Clinical correlation is essential. Serum or plasma urea nitroge n measurement (mass/volume)Ordered By: Clau Mcclain on 08-16-2024 Urea nitrogen [Mass/Vol] 17 mg/dL 7-18 [facility] Sodium levelOrdered By: Karen Mcclain on 08-16-2024 Sodium [Moles/Vol] 135 mmol/L Low 136-145 [facility] Total proteinOrdered By: Lucrecia ashleyjanie Mcclain on 08-16-2024 Protein [Mass/Vol] 8.2 g/dL 6.4-8.2 [facility] White blood cell (WBC) count Ordered By: Clau Mcclain on 08-16-2024 WBC (Bld) [#/Vol] 6.2 10*3/uL 4.4-11.0 [facility] SCRN MAMM (CAD)W/ERIC BILATo n 07-25-2024 SCRN MAMM (CAD)W/ERIC BILAT Normal [facility] Orthopedic Visit Reporton Orthopedic Visit Report Normal [facility] Inital Evaluation (1) - PTon 05-01-2024 Inital Evaluation (1) - PT Normal [facility] Pulmonary Visit Reporton Pulmonary Visit Report Normal [facility] Urine Cultureon 04-26-2024 URC Normal [facility] Comment on above: Performed By: #### M 100.2200 ####[facility] [address] [place], [address] Abdomen/Pelvis W IV Cont ONL Yon 04-24-2024 Abdomen/Pelvis W IV Cont ONLY Normal [facility] CBC W/Diff, Automatedon 03-30 Absolute Lymph 4.08 X10 3/uL Normal 0.83-4.51 [facility] Comment on above: Performed By: #### L 501.2450, L500.4050, L100.0100 ####[facility] [address] [place], [address] Absolute Neut 8.2 X10 3/uL High 2.0-7.7 [facility] Comment on above: Performed By: #### L 501.2450, L500.4050, L100.0100 ####[facility] [address] [place], [address] Basophils/100 WBC (Bld) 0.3 % Normal 0-1 [facility] Comment on above: Performed By: #### L 501.2450, L500.4050, L100.0100 ####[facility] [address] [place], [address] Eosinophils/100 WBC (Bld) 0.7 % Normal 0-5 [facility] Comment on above: Performed By: #### L 501.2450, L500.4050, L100.0100 ####[facility] [address] [place], [address] Erythrocyte distribution width (RBC) [Ratio] 18.3 % High 11.6-14.6 [facility] Comment on above: Performed By: #### L 501.2450, L500.4050, L100.0100 ####[facility] [address] [place], [address] Hematocrit (Bld) [Volume fraction] 35.7 % Low 37-47 [facility] Comment on above: Performed By: #### L 501.2450, L500.4050, L100.0100 ####[facility] [address] [place], [address] Hemoglobin (Bld) [Mass/Vol] 10.4 g/dL Low 12.0-15.0 [facility] Comment on above: Performed By: #### L 501.2450, L500.4050, L100.0100 ####[facility] [address] [place], [address] IG% 0.600 Normal 0.0-0.9 [facility] Comment on above: Result Comment: IG% - Immature Granulocytes (promyelocytes, myelocytes andmetamyelocytes) > 1% indicates that a LEFT SHIFT is Present. Performed By: #### L 501.2450, L500.4050, L100.0100 ####[facility] [address] [place], [address] Lymphocytes/100 WBC (Bld) 30.0 % Normal 19-41 [facility] Comment on above: Performed By: #### L 501.2450, L500.4050, L100.0100 ####[facility] [address] [place], [address] MCH (RBC) [Entitic mass] 25.4 pg Low 27.0-32.0 [facility] Comment on above: Performed By: #### L 501.2450, L500.4050, L100.0100 ####[facility] [address] [place], [address] MCHC (RBC) [Mass/Vol] 29.1 g/dL Low 32-36 [facility] Comment on above: Performed By: #### L 501.2450, L500.4050, L100.0100 ####[facility] [address] [place], [address] MCV (RBC) [Entitic vol] 87.3 fL Normal 81-99 [facility] Comment on above: Performed By: #### L 501.2450, L500.4050, L100.0100 ####[facility] [address] [place], [address] Monocytes/100 WBC (Bld) 8.5 % Normal 0-10 [facility] Comment on above: Performed By: #### L 501.2450, L500.4050, L100.0100 ####[facility] [address] [place], [address] Neutrophils/100 WBC (Bld) 59.9 % Normal 47-70 [facility] Comment on above: Performed By: #### L 501.2450, L500.4050, L100.0100 ####[facility] [address] [place], [address] Nucleated RBC (Bld) [#/Vol] 0 10*3/uL Normal 0-5 [facility] Comment on above: Performed By: #### L 501.2450, L500.4050, L100.0100 ####[facility] [address] [place], [address] Platelet mean volume (Bld) [Entitic vol] 8.6 fL Normal 6.2-12.0 [facility] Comment on above: Performed By: #### L 501.2450, L500.4050, L100.0100 ####[facility] [address] [place], [address] Platelets (Bld) [#/Vol] 402 10*3/uL Normal 150-450 [facility] Comment on above: Performed By: #### L 501.2450, L500.4050, L100.0100 ####[facility] [address] [place], [address] RBC (Bld) [#/Vol] 4.09 10*6/uL Low 4.2-5.4 [facility] Comment on above: Performed By: #### L 501.2450, L500.4050, L100.0100 ####[facility] [address] [place], [address] RDW SD 58.1 fl High 35.1-43.9 [facility] Comment on above: Performed By: #### L 501.2450, L500.4050, L100.0100 ####[facility] [address] [place], [address] WBC (Bld) [#/Vol] 13.6 10*3/uL High 4.4-11.0 [facility] Comment on above: Performed By: #### L 501.2450, L500.4050, L100.0100 ####[facility] [address] [place], [address] Comprehensive Metabolic Prof uli 04-24-2024 Albumin [Mass/Vol] 3.2 g/dL Normal 3.2-5.0 [facility] Comment on above: Performed By: #### L 501.2450, L500.4050, L100.0100 ####[facility] [address] [place], [address] Albumin/Globulin [Mass ratio] 0.7 {ratio} Low 0.9-2.4 [facility] Comment on above: Performed By: #### L 501.2450, L500.4050, L100.0100 ####[facility] [address] [place], [address] ALK P 84 U/L Normal 45-117 [facility] Comment on above: Performed By: #### L 501.2450, L500.4050, L100.0100 ####[facility] [address] [place], [address] ALT [Catalytic activity/Vol] 17 U/L Normal 13-56 [facility] Comment on above: Performed By: #### L 501.2450, L500.4050, L100.0100 ####[facility] [address] [place], [address] AST [Catalytic activity/Vol] 24 U/L Normal 15-37 [facility] Comment on above: Result Comment: Slig ht Hemolysis, Result may be falsely increased. Performed By: #### L 501.2450, L500.4050, L100.0100 ####[facility] [address] [place], [address] Bilirubin [Mass/Vol] 0.30 mg/dL Normal 0.20-1.00 [facility] Comment on above: Result Comment: For patients on eltrombopag therapy, use of Dimension Hardin TBIL is not recommended. Performed By: #### L 501.2450, L500.4050, L100.0100 ####[facility] [address] [place], [address] BUN/CRE 32.4 RATIO High 10-20 [facility] Comment on above: Performed By: #### L 501.2450, L500.4050, L100.0100 ####[facility] [address] [place], [address] CA,Total 9.9 mg/dL Normal 8.5-10.1 [facility] Comment on above: Performed By: #### L 501.2450, L500.4050, L100.0100 ####[facility] [address] [place], [address] Chloride [Moles/Vol] 106 mmol/L Normal 98-107 [facility] Comment on above: Performed By: #### L 501.2450, L500.4050, L100.0100 ####[facility] [address] [place], [address] CO2 [Moles/Vol] 21.0 mmol/L Normal 21.0-32.0 [facility] Comment on above: Performed By: #### L 501.2450, L500.4050, L100.0100 ####[facility] [address] [place], [address] Creatinine [Mass/Vol] 0.71 mg/dL Normal 0.55-1.02 [facility] Comment on above: Result Comment: The validity of the calculated GFR GFRAA in patients over70 years has not been determined. Clinical correlation isessential. Performed By: #### L 501.2450, L500.4050, L100.0100 ####[facility] [address] [place], [address] ECRCL 76.84 ml/min Normal [facility] Comment on above: Performed By: #### L 501.2450, L500.4050, L100.0100 ####[facility] [address] [place], [address] EST GFR - AA 105 mL/min Normal >60 [facility] Comment on above: Result Comment: Afri can Macanese GFR Calc Performed By: #### L 501.2450, L500.4050, L100.0100 ####[facility] [address] [place], [address] GAP 8 Normal 5-15 [facility] Comment on above: Performed By: #### L 501.2450, L500.4050, L100.0100 ####[facility] [address] [place], [address] GFR/1.73 sq M.predicted among non-blacks MDRD (S/P/Bld) [Vol rate/Area] 87 mL/min/{1.73_m2} Normal >60 [facility] Comment on above: Result Comment: Non- GFR Calc Performed By: #### L 501.2450, L500.4050, L100.0100 ####[facility] [address] [place], [address] Globulin (S) [Mass/Vol] 4.6 g/dL High 2.2-4.2 [facility] Comment on above: Performed By: #### L 501.2450, L500.4050, L100.0100 ####[facility] [address] [place], [address] Glucose [Mass/Vol] 101 mg/dL Normal 74-106 [facility] Comment on above: Result Comment: Fast ing Glucose result from 100 to 125 mg/dLsuggests IMPAIRED HOMEOSTASIS per A.D.A. criteria. Performed By: #### L 501.2450, L500.4050, L100.0100 ####[facility] [address] [place], [address] Potassium [Moles/Vol] 4.4 mmol/L Normal 3.5-5.1 [facility] Comment on above: Result Comment: Slig ht Hemolysis, Result may be falsely increased. Performed By: #### L 501.2450, L500.4050, L100.0100 ####[facility] [address] [place], [address] Sodium [Moles/Vol] 135 mmol/L Low 136-145 [facility] Comment on above: Performed By: #### L 501.2450, L500.4050, L100.0100 ####[facility] [address] [place], [address] T PROT 7.8 g/dL Normal 6.4-8.2 [facility] Comment on above: Performed By: #### L 501.2450, L500.4050, L100.0100 ####[facility] [address] [place], [address] Urea nitrogen [Mass/Vol] 23 mg/dL High 7-18 [facility] Comment on above: Performed By: #### L 501.2450, L500.4050, L100.0100 ####[facility] [address] [place], [address] Emergency Department Summary on 04-24-2024 Emergency Department Summary Normal [facility] Lipaseon 04-24-2024 Lipase [Catalytic activity/Vol] 25 U/L Normal 13-75 [facility] Comment on above: Result Comment: Graciela cohen note:LIPASE revised reference range effective 22.New Lipase methodology. Expected to produce lower valuesthan the previous assay method.NEW Reference Range: 13 - 75 U/L Performed By: #### L 501.2450, L500.4050, L100.0100 ####[facility] [address] [place], [address] Urinalysis, Completeon 04-24 WBC 10-25 SEEN Normal 0-5 [facility] Comment on above: Order Comment: CLEAN CATCH Performed By: #### L 400.0001 ####[facility] [address] [place], [address] BACTERIA 0 SEEN Normal None Seen [facility] Comment on above: Order Comment: CLEAN CATCH Performed By: #### L 400.0001 ####[facility] [address] [place], [address] EPI,SQUAMOUS 0 SEEN Normal 5-10 [facility] Comment on above: Order Comment: CLEAN CATCH Performed By: #### L 400.0001 ####[facility] [address] [place], [address] Mucus Ql (Urine sed) 0 SEEN Normal [facility] Comment on above: Order Comment: CLEAN CATCH Performed By: #### L 400.0001 ####[facility] [address] [place], [address] RBC 0 SEEN Normal 0-5 [facility] Comment on above: Order Comment: CLEAN CATCH Performed By: #### L 400.0001 ####[facility] [address] [place], [address] Basophil percentageOrdered B y: Ravindra Singh on 11-25-2023 Chloride [Moles/Vol] 109 mmol/L 98-107 [facility] Glucose [Mass/Vol] 98 mg/dL 74-106 [facility] Hemoglobin (Bld) [Mass/Vol] 10.9 g/dL 12.0-15.0 [facility] Potassium [Moles/Vol] 4.1 mmol/L 3.5-5.1 [facility] Sodium [Moles/Vol] 137 mmol/L 136-145 [facility] WBC (Bld) [#/Vol] 6.9 10*3/uL 4.4-11.0 [facility] Determination of erythrocyte mean corpuscular volume (MCV)Ordered By: Ravindra Singh on 11-25-2023 MCV (RBC) [Entitic vol] 82.9 fL 81-99 [facility] Erythrocyte distribution wid th ratioOrdered By: Ravindra Singh on 11-25-2023 Erythrocyte distribution width (RBC) [Ratio] 20.0 % 11.6-14.6 [facility] Erythrocyte distribution wid th standard deviationOrdered By: Ravindrapepe Singh on 11-25-2023 Erythrocyte distribution width (RBC) [Entitic vol] 60.8 fL 35.1-43.9 [facility] Hematocrit Auto (Bld) [Volum e fraction]Ordered By: Ravindra Singh on 11-25-2023 Hematocrit (Bld) [Volume fraction] 36.9 % 37-47 [facility] Laboratory - Chemistry and C hemistry - challengeOrdered By: Ravindrapepe Singh on 11-25-2023 CO2 [Moles/Vol] 22.0 mmol/L 21.0-32.0 [facility] Urea nitrogen/Creatinine [Mass ratio] 19.8 mg/mg 10-20 [facility] Laboratory - Hematology and Cell countsOrdered By: Ravindra Singh on 11-25-2023 MCH (RBC) [Entitic mass] 24.5 pg 27.0-32.0 [facility] MCHC (RBC) [Mass/Vol] 29.5 g/dL 32-36 [facility] Platelet mean volume (Bld) [Entitic vol] 8.5 fL 6.2-12.0 [facility] Platelets (Bld) [#/Vol] 413 10*3/uL 150-450 [facility] No Panel InformationOrdered By: Ravindra Singh on 11-25-2023 Estimated GFR (MDRD) Amer 106 mL/min >60 [facility] Comment on above: GFR Calc Estimated GFR (MDRD) Non-Af Amer 88 mL/min >60 [facility] Comment on above: Non- GFR Calc RBC Auto (Bld) [#/Vol]Ordere d By: Ravindra Singh on 11-25-2023 RBC (Bld) [#/Vol] 4.45 10*6/uL 4.2-5.4 [facility] Serum or plasma calcium zara urement (mass/volume)Ordered By: Ravindra Singh on 11-25-2023 Calcium [Mass/Vol] 9.4 mg/dL 8.5-10.1 [facility] Serum or plasma creatinine m easurement (mass/volume)Ordered By: Ravindra Singh on 11-25-2023 Creatinine [Mass/Vol] 0.71 mg/dL 0.55-1.02 [facility] Comment on above: The validity of the calculated GFR & GFRAA in patients over 70 years has not been determined. Clinical correlation is essential. Serum or plasma urea nitroge n measurement (mass/volume)Ordered By: Ravindra Singh on 11-25-2023 Urea nitrogen [Mass/Vol] 14 mg/dL 7-18 [facility] Thin prep Papanicolaou smear with manual screeningOrdered By: Ravindra Singh on 11-25-2023 Thin prep Papanicolaou smear with manual screening 6 5-15 [facility] Basophil percentageOrdered B y: Janet Valencia on 07-18-2023 Chloride [Moles/Vol] 103 mmol/L 98-107 [facility] Glucose [Mass/Vol] 77 mg/dL 74-106 [facility] Potassium [Moles/Vol] 4.4 mmol/L 3.5-5.1 [facility] Sodium [Moles/Vol] 136 mmol/L 136-145 [facility] Bilirubin Test strip Ql (U)O rdered By: Janet Valencia on 07-18-2023 Bilirubin Ql (U) Negative Negative [facility] Ketones Test strip Ql (U)Ord ered By: Janet Valencia on 07-18-2023 Ketones Ql (U) Negative Negative [facility] Laboratory - Chemistry and C hemistry - challengeOrdered By: Janet Valencia on 07-18-2023 CO2 [Moles/Vol] 27.0 mmol/L 21.0-32.0 [facility] Urea nitrogen/Creatinine [Mass ratio] 21.4 mg/mg 06-17 [facility] Nitrite Test strip Ql (U)Ord ered By: Janet Valencia on 07-18-2023 Nitrite Ql (U) Negative Negative [facility] No Panel InformationOrdered By: Janet Valencia on 07-18-2023 Estimated GFR (MDRD) Amer 116 mL/min >60 [facility] Comment on above: GFR Calc Estimated GFR (MDRD) Non-Af Amer 96 mL/min >60 [facility] Comment on above: Non- GFR Calc Protein Test strip Ql (U)Ord ered By: Janet Valencia on 07-18-2023 Protein Ql (U) Negative Negative [facility] Serum or plasma calcium zara urement (mass/volume)Ordered By: Janet Valencia on 07-18-2023 Calcium [Mass/Vol] 8.8 mg/dL 8.5-10.1 [facility] Serum or plasma creatinine m easurement (mass/volume)Ordered By: Janet Valencia on 07-18-2023 Creatinine [Mass/Vol] 0.65 mg/dL 0.55-1.02 [facility] Comment on above: The validity of the calculated GFR & GFRAA in patients over 70 years has not been determined. Clinical correlation is essential. Serum or plasma urea nitroge n measurement (mass/volume)Ordered By: Janet Valencia on 07-18-2023 Urea nitrogen [Mass/Vol] 14 mg/dL 7-18 [facility] Thin prep Papanicolaou smear with manual screeningOrdered By: Janet Valencia on 07-18-2023 Thin prep Papanicolaou smear with manual screening 6 5-15 [facility] Urine blood detectionOrdered By: Janet Valencia on 07-18-2023 RBC Ql (U) Negative Negative [facility] Urine clarityOrdered By: Charline Valencia on 07-18-2023 Clarity (U) Clear Clear [facility] Urine color determinationOrd ered By: Janet Valencia on 07-18-2023 Color (U) Yellow Yellow [facility] Urine glucose detectionOrder ed By: Janet Valencia on 07-18-2023 Glucose Ql (U) Normal mg/dl Normal [facility] Urine leukocyte esterase det ection by dipstickOrdered By: Janet Valencia on 07-18-2023 Leukocyte esterase Test strip Ql (U) 100 /ul Negative [facility] Urine pHOrdered By: Janet camacho on 07-18-2023 pH (U) 6.5 [pH] 5.0 - 8.0 [facility] Urine specific gravity measu rementOrdered By: Janet Valencia on 07-18-2023 Specific gravity (U) [Rel density] 1.010 1.002-1.030 [facility] Urobilinogen Auto test strip Ql (U)Ordered By: Janet Valencia on 07-18-2023 Urobilinogen Ql (U) Normal mg/dl Normal [facility] Absolute lymphocyte countOrd ered By: Keisha Williamson on 06-20-2023 Lymphocytes Auto (Unsp spec) [#/Vol] 2.93 10*3/uL 0.83-4.51 [facility] Basophil percentageOrdered B y: Keisha Williamson on 06-20-2023 Basophils/100 WBC (Bld) 0.3 % 0-1 [facility] Bilirubin [Mass/Vol] 0.20 mg/dL 0.20-1.00 [facility] Comment on above: For patients on eltr ombopag therapy, use of Dimension Hardin TBIL is not recommended. Chloride [Moles/Vol] 99 mmol/L 98-107 [facility] Eosinophils/100 WBC (Bld) 1.3 % 0-5 [facility] Glucose [Mass/Vol] 86 mg/dL 74-106 [facility] Neutrophils (Bld) [#/Vol] 3.2 10*3/uL 2.0-7.7 [facility] Neutrophils/100 WBC (Bld) 44.9 % 47-70 [facility] Potassium [Moles/Vol] 4.3 mmol/L 3.5-5.1 [facility] Protein [Mass/Vol] 8.2 g/dL 6.4-8.2 [facility] Sodium [Moles/Vol] 126 mmol/L 136-145 [facility] WBC (Bld) [#/Vol] 7.0 10*3/uL 4.4-11.0 [facility] Blood erythrocytes count (nu mber/volume)Ordered By: Keisha Williamson on 06-20-2023 RBC (Bld) [#/Vol] 4.18 10*6/uL 4.2-5.4 [facility] Blood hemoglobin measurement (mass/volume)Ordered By: Keisha Williamson on 06-20-2023 Hemoglobin (Bld) [Mass/Vol] 10.5 g/dL 12.0-15.0 [facility] Blood lymphocytes/100 leukoc ytesOrdered By: Keishaandrade Williamson on 06-20-2023 Lymphocytes/100 WBC (Bld) 41.7 % 19-41 [facility] Blood monocytes/100 leukocyt esOrdered By: Keishaandrade Williamson on 06-20-2023 Monocytes/100 WBC (Bld) 11.4 % 0-10 [facility] Blood platelet mean volumeOr dered By: Keisha Williamson on 06-20-2023 Platelet mean volume (Bld) [Entitic vol] 8.7 fL 6.2-12.0 [facility] Determination of erythrocyte mean corpuscular volume (MCV)Ordered By: Keishaandrade Williamson on 06-20-2023 MCV (RBC) [Entitic vol] 86.8 fL 81-99 [facility] Hematocrit Auto (Bld) [Volum e fraction]Ordered By: Keishaandrade Williamson on 06-20-2023 Hematocrit (Bld) [Volume fraction] 36.3 % 37-47 [facility] Laboratory - Chemistry and C hemistry - challengeOrdered By: Frisco Clay on 06-20-2023 ALP [Catalytic activity/Vol] 93 U/L 45-117 [facility] ALT [Catalytic activity/Vol] 19 U/L 13-56 [facility] CO2 [Moles/Vol] 29.0 mmol/L 21.0-32.0 [facility] Globulin (S) [Mass/Vol] 4.7 g/dL 2.2-4.2 [facility] Magnesium [Mass/Vol] 2.1 mg/dL 1.6-2.6 [facility] Urea nitrogen/Creatinine [Mass ratio] 17.6 mg/mg 10-20 [facility] Laboratory - Hematology and Cell countsOrdered By: Frisco Clay on 06-20-2023 Erythrocyte distribution width (RBC) [Entitic vol] 53.8 fL 35.1-43.9 [facility] Erythrocyte distribution width (RBC) [Ratio] 16.8 % 11.6-14.6 [facility] Immature granulocytes/100 WBC (Bld) 0.400 % 0.0-0.9 [facility] Comment on above: IG% - Immature Granu locytes (promyelocytes, myelocytes and metamyelocytes) > 1% indicates that a LEFT SHIFT is Present. MCH (RBC) [Entitic mass] 25.1 pg 27.0-32.0 [facility] Nucleated RBC/100 WBC (Bld) [Ratio] 0 % 0-5 [facility] MCHC Auto (RBC) [Mass/Vol]Or dered By: Keisha Williamson on 06-20-2023 MCHC (RBC) [Mass/Vol] 28.9 g/dL 32-36 [facility] No Panel InformationOrdered By: Keisha Williamson on 06-20-2023 C-Reactive Protein High Sensitivity 13.30 mg/L <3.00 [facility] Comment on above: Low Relative Risk of CVD <1.0 mg/L Average Relative Risk of CVD 1.0 - 3.0 mg/L High Relative Risk of CVD >3.0 mg/L Estimated GFR (MDRD) Amer 111 mL/min >60 [facility] Comment on above: GFR Calc Estimated GFR (MDRD) Non-Af Amer 92 mL/min >60 [facility] Comment on above: Non- GFR Calc Platelets bldOrdered By: Bryanna Williamson on 06-20-2023 Platelets (Bld) [#/Vol] 438 10*3/uL 150-450 [facility] Serum or plasma albumin zara urement (mass/volume)Ordered By: Keisha Williamson on 06-20-2023 Albumin [Mass/Vol] 3.5 g/dL 3.2-5.0 [facility] Serum or plasma albumin/glob ulin mass ratioOrdered By: Keisha Williamson on 06-20-2023 Albumin/Globulin [Mass ratio] 0.7 {ratio} 0.9-2.4 [facility] Serum or plasma calcium zara urement (mass/volume)Ordered By: Keisha Williamson on 06-20-2023 Calcium [Mass/Vol] 9.2 mg/dL 8.5-10.1 [facility] Serum or plasma creatinine m easurement (mass/volume)Ordered By: Keisha Williamson on 06-20-2023 Creatinine [Mass/Vol] 0.68 mg/dL 0.55-1.02 [facility] Comment on above: The validity of the calculated GFR & GFRAA in patients over 70 years has not been determined. Clinical correlation is essential. Serum or plasma urea nitroge n measurement (mass/volume)Ordered By: Keisha Williamson on 06-20-2023 Urea nitrogen [Mass/Vol] 12 mg/dL 7-18 [facility] Thin prep Papanicolaou smear with manual screeningOrdered By: Keisha Williamson on 06-20-2023 Thin prep Papanicolaou smear with manual screening 21 U/L 15-37 [facility] Thin prep Papanicolaou smear with manual screening -2 5-15 [facility] Absolute lymphocyte countOrd ered By: Dr. Valencia on 12-02-2022 Lymphocytes Auto (Unsp spec) [#/Vol] 2.99 10*3/uL 0.83-4.51 [facility] Basophil percentageOrdered B y: Dr. Valencia on 12-02-2022 Basophils/100 WBC (Bld) 0.3 % 0-1 [facility] Bilirubin [Mass/Vol] 0.20 mg/dL 0.20-1.00 [facility] Comment on above: For patients on eltr ombopag therapy, use of Dimension Hardin TBIL is not recommended. Chloride [Moles/Vol] 101 mmol/L 98-107 [facility] Cholesterol [Mass/Vol] 208 mg/dL <200 [facility] Comment on above: <200 mg/dL Desirable 200-240 mg/dL Borderline >240 mg/dL High Risk Eosinophils/100 WBC (Bld) 1.1 % 0-5 [facility] Glucose [Mass/Vol] 96 mg/dL 74-106 [facility] Neutrophils (Bld) [#/Vol] 3.3 10*3/uL 2.0-7.7 [facility] Neutrophils/100 WBC (Bld) 46.2 % 47-70 [facility] Potassium [Moles/Vol] 4.4 mmol/L 3.5-5.1 [facility] Protein [Mass/Vol] 8.2 g/dL 6.4-8.2 [facility] Sodium [Moles/Vol] 133 mmol/L 136-145 [facility] Triglyceride [Mass/Vol] 146 mg/dL <199 [facility] Comment on above: The drugs N-Acetylcy steine and Metamizole may falsely depress this assay.Serum Triglycerides Reference Interval Normal <150 mg/dL Borderline high 150 - 199 mg/dL High 200 - 499 mg/dL Very High > or = 500 mg/dL WBC (Bld) [#/Vol] 7.1 10*3/uL 4.4-11.0 [facility] Blood erythrocytes count (nu mber/volume)Ordered By: Dr. Valencia on 12-02-2022 RBC (Bld) [#/Vol] 4.30 10*6/uL 4.2-5.4 [facility] Blood hemoglobin measurement (mass/volume)Ordered By: Dr. Valencia on 12-02-2022 Hemoglobin (Bld) [Mass/Vol] 11.4 g/dL 12.0-15.0 [facility] Blood lymphocytes/100 leukoc ytesOrdered By: Dr. Valencia on 12-02-2022 Lymphocytes/100 WBC (Bld) 41.9 % 19-41 [facility] Blood monocytes/100 leukocyt esOrdered By: Dr. Valencia on 12-02-2022 Monocytes/100 WBC (Bld) 10.1 % 0-10 [facility] Blood platelet mean volumeOr dered By: Dr. Valencia on 12-02-2022 Platelet mean volume (Bld) [Entitic vol] 8.6 fL 6.2-12.0 [facility] Determination of erythrocyte mean corpuscular volume (MCV)Ordered By: Dr. Valencia on 12-02-2022 MCV (RBC) [Entitic vol] 91.4 fL 81-99 [facility] Hematocrit Auto (Bld) [Volum e fraction]Ordered By: Dr. Valencia on 12-02-2022 Hematocrit (Bld) [Volume fraction] 39.3 % 37-47 [facility] Laboratory - Chemistry and C hemistry - challengeOrdered By: Dr. Valencia on 12-02-2022 ALP [Catalytic activity/Vol] 88 U/L 45-117 [facility] ALT [Catalytic activity/Vol] 15 U/L 13-56 [facility] CO2 [Moles/Vol] 27.0 mmol/L 21.0-32.0 [facility] Globulin (S) [Mass/Vol] 4.6 g/dL 2.2-4.2 [facility] Urea nitrogen/Creatinine [Mass ratio] 22.0 mg/mg 10-20 [facility] Laboratory - Hematology and Cell countsOrdered By: Dr. Valencia on 12-02-2022 Erythrocyte distribution width (RBC) [Entitic vol] 56.0 fL 35.1-43.9 [facility] Erythrocyte distribution width (RBC) [Ratio] 16.7 % 11.6-14.6 [facility] Immature granulocytes/100 WBC (Bld) 0.400 % 0.0-0.9 [facility] Comment on above: IG% - Immature Granu locytes (promyelocytes, myelocytes and metamyelocytes) > 1% indicates that a LEFT SHIFT is Present. MCH (RBC) [Entitic mass] 26.5 pg 27.0-32.0 [facility] Nucleated RBC/100 WBC (Bld) [Ratio] 0 % 0-5 [facility] MCHC Auto (RBC) [Mass/Vol]Or dered By: Dr. Valencia on 12-02-2022 MCHC (RBC) [Mass/Vol] 29.0 g/dL 32-36 [facility] No Panel InformationOrdered By: Dr. Valencia on 12-02-2022 Estimated GFR (MDRD) Amer 96 mL/min >60 [facility] Comment on above: GFR Calc Estimated GFR (MDRD) Non-Af Amer 79 mL/min >60 [facility] Comment on above: Non- GFR Calc Platelets bldOrdered By: Dr. Valencia on 12-02-2022 Platelets (Bld) [#/Vol] 402 10*3/uL 150-450 [facility] Serum or plasma albumin zara urement (mass/volume)Ordered By: Dr. Valencia on 12-02-2022 Albumin [Mass/Vol] 3.6 g/dL 3.2-5.0 [facility] Serum or plasma albumin/glob ulin mass ratioOrdered By: Dr. Valencia on 12-02-2022 Albumin/Globulin [Mass ratio] 0.8 {ratio} 0.9-2.4 [facility] Serum or plasma calcium zara urement (mass/volume)Ordered By: Dr. Valencia on 12-02-2022 Calcium [Mass/Vol] 9.8 mg/dL 8.5-10.1 [facility] Serum or plasma cholesterol in HDL measurement (mass/volume)Ordered By: Dr. Valencia on 12-02-2022 Cholesterol in HDL [Mass/Vol] 55 mg/dL >40 [facility] Comment on above: The drugs N-Acetylcy steine and Metamizole may falsely depress this assay. Reference Range HDL <40 mg/dL Low HDL Cholesterol HDL >or= 60 mg/dL High HDL Cholesterol Serum or plasma cholesterol in VLDL measurement (mass/volume)Ordered By: Dr. Valencia on 12-02-2022 Cholesterol in VLDL [Mass/Vol] 29 mg/dL 5-40 [facility] Serum or plasma creatinine m easurement (mass/volume)Ordered By: Dr. Valencia on 12-02-2022 Creatinine [Mass/Vol] 0.77 mg/dL 0.55-1.02 [facility] Comment on above: The validity of the calculated GFR & GFRAA in patients over 70 years has not been determined. Clinical correlation is essential. Serum or plasma low density lipoprotein (LDL) cholesterol measurement (mass/volume)Ordered By: Dr. Valencia on 12-02-2022 Cholesterol in LDL [Mass/Vol] 124 mg/dL 0-130 [facility] Serum or plasma urea nitroge n measurement (mass/volume)Ordered By: Dr. Valencia on 12-02-2022 Urea nitrogen [Mass/Vol] 17 mg/dL 7-18 [facility] Thin prep Papanicolaou smear with manual screeningOrdered By: Dr. Valencia on 12-02-2022 Thin prep Papanicolaou smear with manual screening 18 U/L 15-37 [facility] Thin prep Papanicolaou smear with manual screening 5 5-15 [facility] Office Visit: asthmaon 02-17 Dietary management education, guidance, and counseling (procedure) yes Invalid Interpretation Code [facility] Work Phone: Documentation of current medications (procedure) Done Invalid Interpretation Code [facility] Work Phone: Protein mass conc Done [facility] Work Phone: Tobacco smoking status [facility] Never [facility] Work Phone: Tobacco smoking status [facility] Former smoker [facility] Work Phone: Tobacco use [facility] Former smoker Invalid Interpretation Code [facility] Work Phone: Office Visit: Spine Visiton 07-05-2016 Fall risk assessment [facility] Work Phone: Lab Report: Basic Metabolic Profile (BMP)on 03-02-2016 Anion gap 8 mmol/L Invalid Interpretation Code 5-15 [facility] Work Phone: Anion gap molar conc 8 mmol/L 5-15 [facility] Work Phone: Calcium mass conc 9.6 mg/dL 8.5-10.1 [facility] Work Phone: Chloride molar conc 103 mmol/L 98-107 [facility] Work Phone: CO2 27.0 mmol/L Invalid Interpretation Code 21.0-32.0 [facility] Work Phone: CO2 ppres (BldV) 27.0 mmol/L 21.0-32.0 [facility] Work Phone: Creatinine mass conc 1.11 mg/dL 0.55-1.20 [facility] Work Phone: eGFR (non-black) 65 mL/min/{1.73_m2} Invalid Interpretation Code >60 [facility] Work Phone: EST GFR - AA 65 mL/min >60 [facility] Work Phone: GFR/1.73 sq M predicted among non-blacks MDRD vol rate/area (S/P/Bld) 53 mL/min/{1.73_m2} Low >60 [facility] Work Phone: Glucose 88 mg/dL Invalid Interpretation Code 70-110 [facility] Work Phone: Glucose mass conc 88 mg/dL 70-110 [facility] Work Phone: Potassium molar conc 3.4 mmol/L Low 3.5-5.1 [facility] Work Phone: Sodium molar conc 138 mmol/L 136-145 [facility] Work Phone: Urea nitrogen mass conc 18 mg/dL 7-18 [facility] Work Phone: Urea nitrogen/Creatinine mass ratio 16.2 RATIO 10-20 [facility] Work Phone: Lab Report: GGTPon 6 Gamma glutamyl transferase enzyme act/vol 235 U/L High 5-55 [facility] Work Phone: Lab Report: Liver Profileon 12-18-2015 Albumin mass conc 3.4 g/dL 3.4-5.0 [facility] Work Phone: Alkaline phosphatase (ALP) 145 U/L High 50-136 [facility] Work Phone: ALP enzyme act/vol (Bld) 145 U/L High 50-136 [facility] Work Phone: ALT enzyme act/vol 37 U/L 12-78 [facility] Work Phone: AST enzyme act/vol 19 U/L 15-37 [facility] Work Phone: Bilirubin mass conc 0.40 mg/dL 0.20-1.00 [facility] Work Phone: Bilirubin.direct mass conc 0.12 mg/dL 0.00-0.30 [facility] Work Phone: Globulin 4.3 g/dL High 2.3-3.5 [facility] Work Phone: Globulin mass conc (S) 4.3 g/dL High 2.3-3.5 [facility] Work Phone: Protein mass conc 7.7 g/dL 6.4-8.2 [facility] Work Phone: Replaced Document: Hepatitis C,RNA PCR Viral Loadon 11-28-2015 comments, additional Comment Invalid Interpretation Code . [facility] Work Phone: HCV log 10 Test not performed . [facility] Work Phone: HCV QT PCR HCV Not Detected IU/mL . [facility] Work Phone: Hepatitis C virus (HCV) RNA, PCR, quantitative HCV Not Detected IU/mL Invalid Interpretation Code . [facility] Work Phone: Heptimax HCV RNA Log Test not performed Invalid Interpretation Code . [facility] Work Phone: TEST INFO: Comment . [facility] Phone: Lab Report: Anti-Mitochondri al ABon 11-18-2015 GE use only - for [employer] import when terms are not otherwise specified <20.0 Units Invalid Interpretation Code 0.0-20.0 [facility] Phone: MITOCHN AB 6650 <20.0 Units 0.0-20.0 [facility] Work Phone: Lab Report: ANTINUCLEAR ANTI BODIES DIRECTon 11-17-2015 FLAKITA Titer Positive High Negative [facility] Work Phone: Nuclear Ab IA Qn (S) Positive High Negative [facility] Phone: Lab Report: Alpha Antitrypsi n Serumon 11-17-2015 A- [id number] 164 mg/dL 90-200 [facility] Work Phone: [id number], serum 164 mg/dL Invalid Interpretation Code 90-200 [facility] Work Phone: Lab Report: Ceruloplasminon 11-17-2015 Ceruloplasmin mass conc 35.1 mg/dL 19.0-39.0 [facility] Phone: Lab Report: Hepatitis A AB, Totalon 11-17-2015 HAV Ab IA Qn Negative Negative [facility] Work Phone: Lab Report: Hepatitis B Core Ab Totalon 11-17-2015 HBV core Ab IA Qn (S) Negative Negative [facility] Phone: Lab Report: Transferrinon Transferrin mass conc 295 mg/dL 200-370 [facility] Phone: Lab Report: Comprehensive Me tabolic Profilon 11-15-2015 Albumin/Globulin mass ratio 0.8 {ratio} Low 0.9-2.4 [facility] Phone: Lab Report: Ferritinon 11-14 Ferritin mass conc 126 ng/mL 8-252 [facility] Phone: Lab Report: CRPon 11-14-2015 CRP mass conc 1.03 mg/dL High Units converted. See lab report for original value. [facility] Phone: Lab Report: Erythrocyte Sed Rateon 11-14-2015 ESR Velocity (Bld) 35 mm/h High 0-30 [facility] Phone: Lab Report: Prothrombin Time w/INRon 11-14-2015 INR Coag RelTime (PPP) 0.9 {INR} [facility] Phone: INR in blood by coagulation 0.9 {INR} Invalid Interpretation Code [facility] Phone: Prothrombin time (PT) Coag time (PPP) 12.9 s 11.7-14.9 [facility] Work Phone: Replaced Document: (P) CBC W /Diff, Automatedon 11-14-2015 Basophils/100 leukocytes 0.0 % Invalid Interpretation Code 0-1 [facility] Work Phone: Basophils/100 WBC (Bld) 0.0 % 0-1 [facility] Work Phone: Eosinophils/100 leukocytes 0.9 % Invalid Interpretation Code 0-5 [facility] Work Phone: Eosinophils/100 WBC (Bld) 0.9 % 0-5 [facility] Work Phone: Erythrocyte distribution width Ratio (RBC) 53.7 fL High 35.1-43.9 [facility] Work Phone: Erythrocyte distribution width Ratio (RBC) 16.1 % High 11.6-14.6 [facility] Work Phone: Erythrocytes (RBC) 3.97 10*6/uL Low 4.2-5.4 [facility] Work Phone: Hematocrit (HCT) 36.2 % Low 37-47 [facility] Work Phone: Hematocrit Volume Fraction (Bld) 36.2 % Low 37-47 [facility] Work Phone: Hemoglobin mass conc (Bld) 11.0 g/dL Low 12.0-15.0 [facility] Work Phone: Immature granulocytes #/vol (Bld) 0.300 % 0.0-0.9 [facility] Work Phone: immature granulocytes, percentage of total cells, blood 0.300 % Invalid Interpretation Code 0.0-0.9 [facility] Work Phone: Lymphocytes 1.15 X10 3/UL Invalid Interpretation Code 0.83-4.51 [facility] Work Phone: Lymphocytes #/vol (Bld) 1.15 X10 3/UL 0.83-4.51 [facility] Work Phone: Lymphocytes/100 leukocytes 36.4 % Invalid Interpretation Code 19-41 [facility] Work Phone: Lymphocytes/100 WBC (Bld) 36.4 % 19-41 [facility] Work Phone: MCH 27.7 pg Invalid Interpretation Code 27.0-32.0 [facility] Work Phone: MCH Entitic mass (RBC) 27.7 pg 27.0-32.0 [facility] Work Phone: MCHC 30.4 G/GL Low 32-36 [facility] Work Phone: MCHC mass conc (RBC) 30.4 G/GL Low 32-36 [facility] Work Phone: MCV 91.2 fL Invalid Interpretation Code 81-99 [facility] Work Phone: MCV Entitic volume (RBC) 91.2 fL 81-99 [facility] Work Phone: Monocytes/100 leukocytes 11.7 % High 0-10 [facility] Work Phone: Monocytes/100 WBC (Bld) 11.7 % High 0-10 [facility] Work Phone: neutrophil count, blood 1.6 X10 3/UL Low 2.0-7.7 [facility] Work Phone: Neutrophils #/vol (Bld) 1.6 X10 3/UL Low 2.0-7.7 [facility] Work Phone: Neutrophils/100 leukocytes 50.7 % Invalid Interpretation Code 47-70 [facility] Work Phone: Neutrophils/100 WBC (Bld) 50.7 % 47-70 [facility] Work Phone: Platelet mean volume Entitic volume (Bld) 8.6 fL 6.2-12.0 [facility] Work Phone: Platelets 329 10*3/mm3 Invalid Interpretation Code 150-450 [facility] Work Phone: Platelets #/vol (Bld) 329 10*3/mm3 150-450 [facility] Work Phone: PMV by Swapna 8.6 fL Invalid Interpretation Code 6.2-12.0 [facility] Work Phone: RBC #/vol (Bld) 3.97 10*6/uL Low 4.2-5.4 [facility] Work Phone: RDW-CA 16.1 % High 11.6-14.6 [facility] Work Phone: red blood cell distribution width, size density 53.7 fL High 35.1-43.9 [facility] Work Phone: WBC #/vol (Bld) 3.2 10*3/uL Low 4.4-11.0 [facility] Work Phone: WBC (Leukocytes) 3.2 10*3/uL Low 4.4-11.0 [facility] Work Phone: Lab Report: Lipid Profileon 10-16-2015 Cholesterol in HDL mass conc 57 mg/dL [facility] Work Phone: Cholesterol in LDL mass conc 75 mg/dL 0-130 [facility] Work Phone: Cholesterol mass conc 158 mg/dL 200 [facility] Work Phone: Lipoprotein.pre-beta mass conc 26 mg/dL 5-40 [facility] Work Phone: Triglyceride mass conc 129 mg/dL [facility] Work Phone: Office Visit: New Patient -- EGD/Cscopeon 06-16-2015 MG Breast screening Normal Bilateral [facility] Phone: Office Visit: 3 month F/Uon 05-16-2015 Protein mass conc yes [facility] Work Phone: Smoking cessation education (procedure) yes Invalid Interpretation Code [facility] Work Phone: Lab Report: (P) Urinalysis, Completeon 02-11-2015 Albumin Ql (U) Negative Negative [facility] Work Phone: Bilirubin Ql (U) Negative Negative [facility] Work Phone: Clarity Nom (U) Clear Clear [facility] Work Phone: Color Nom (U) Yellow Yellow [facility] Work Phone: Glucose Ql (U) Normal mg/dl Normal [facility] Work Phone: Ketones mass conc (U) Negative Negative [facility] Work Phone: Leukocyte esterase Test strip Ql (U) Negative Negative [facility] Work Phone: Nitrite Urine Negative Invalid Interpretation Code Negative [facility] Work Phone: Occult Blood, urine Negative Invalid Interpretation Code Negative [facility] Work Phone: OCCULT BLOOD-UR Negative Negative [facility] Work Phone: pH (U) 7.0 [pH] 5.0 - 8.0 [facility] Work Phone: Specific gravity Refractometry Relative Density (U) 1.010 1.002-1.030 [facility] Work Phone: Urine, bilirubin presence Negative Invalid Interpretation Code Negative [facility] Work Phone: Urine, ketones presence Negative Invalid Interpretation Code Negative [facility] Work Phone: Urine, pH 7.0 [pH] Invalid Interpretation Code 5.0 - 8.0 [facility] Work Phone: Urine, protein Negative Invalid Interpretation Code Negative [facility] Work Phone: urobilinogen, urine, by dipstick Normal mg/dl Invalid Interpretation Code Normal [facility] Work Phone: Lab Report: CBC W/Diff, Auto matedon 02-11-2015 Absolute Neut 5.5 X10 3/UL 2.0-7.7 [facility] Work Phone: Absolute Neutrophil count 5.5 X10 3/UL Invalid Interpretation Code 2.0-7.7 [facility] Work Phone: Lymphocytes 3.17 X10 3/UL Invalid Interpretation Code 0.83-4.51 [facility] Work Phone: Lymphocytes #/vol (Bld) 3.17 X10 3/UL 0.83-4.51 [facility] Work Phone: Lab Report: Urinalysis, Comp leteon 2015 Bacteria LM.HPF #/area (Urine sed) 1+ /hpf None Seen [facility] Work Phone: Epithelial cells LM.HPF #/area (Urine sed) 0-5 SEEN 5-10 [facility] Work Phone: Mucus Ql (Urine sed) 0 SEEN [facility] Work Phone: RBC LM.HPF #/vol (Urine sed) 0-5 SEEN 0-5 [facility] Work Phone: Urine, bacteria in sediment 1 /[HPF] Invalid Interpretation Code None Seen [facility] Work Phone: Urine, mucus presence in sediment 0 SEEN Invalid Interpretation Code [facility] Work Phone: WBC #/vol (Bld) 0 SEEN 0-5 [facility] Work Phone: WBC (Leukocytes) 0 SEEN Invalid Interpretation Code 0-5 [facility] Work Phone: Office Visit: Dysuria, Right Flank Pain, and Coughon 05-20-2014 Appearance Nom (U) clear [facility] Work Phone: blood in urine (hemoglobin) by dipstick hemolyzed trace Invalid Interpretation Code [facility] Phone: Glucose Test strip mass conc (U) Negative [facility] Work Phone: Nitrite Ql (U) Negative [facility] Work Phone: Urine, glucose presence Negative Invalid Interpretation Code [facility] Work Phone: Urine, nitrite presence Negative Invalid Interpretation Code [facility] Work Phone: Urobilinogen Test strip Ql (U) 0.2 [facility] Work Phone: Lab Report: T4on 04-23-2014 T4 mass conc 8.2 ug/dL Normal 4.8-13.9 [facility] Work Phone: Lab Report: TSHon 04-23-2014 Thyrotropin Qn 1.16 u[iU]/mL Normal 0.358-3.74 [facility] Work Phone: Replaced Document: Anya Glez CG Observationson 04-18-2014 EKG QRS axis 34 deg [facility] Work Phone: electrocardiogram interpretation Sinus Rhythm - Negative precordial T-waves. WITHIN NORMAL LIMITS Invalid Interpretation Code [facility] Work Phone: Interpretation Sinus Rhythm - Negative precordial T-waves. WITHIN NORMAL LIMITS [facility] Work Phone: P [place] 57 deg [facility] Work Phone: P wave axis, electrocardiogram 57 deg Invalid Interpretation Code [facility] Work Phone: VT Interval 136 ms [facility] Work Phone: VT interval, electrocardiogram 136 ms Invalid Interpretation Code [facility] Work Phone: Pulse (Heart Rate) 84 /min Invalid Interpretation Code [facility] Work Phone: QRS axis, electrocardiogram 34 deg Invalid Interpretation Code [facility] Work Phone: QRS Duration 102 ms [facility] Work Phone: QRS duration, electrocardiogram 102 ms Invalid Interpretation Code [facility] Work Phone: QT Interval new path ms [facility] Work Phone: QT interval, electrocardiogram new path ms Invalid Interpretation Code [facility] Work Phone: T [place] 64 deg [facility] Work Phone: T wave axis, electrocardiogram 64 deg Invalid Interpretation Code [facility] Work Phone: Replaced Document: CRPon CRP mass conc 4.55 mg/L High 0.0-3.0 [facility] Work Phone: Office Visit: New Patient -- EGD/Cscopeon 02-28-2006 Colonoscopy (procedure) Unknown Invalid Interpretation Code [facility] Work Phone: Protein mass conc Unknown [facility] Work Phone: Culture, urine Bacteria identified Cx Nom (U) Mixed Gram Pos & Gram Neg [facility] Work Phone: Vital Signs Date Time Vital Sign Value Performing Clinician Facility 03-27-2025 11:32-0400 Body height 160.[address] Janet Valenica DO Work Phone: [facility] 03-27-2025 11:32-0400 Body weight 102.[address] Janet Valencia DO Work Phone: [facility] 03-27-2025 11:03-0400 Body height 160.[address] Janet Valencia DO Work Phone: [facility] 03-27-2025 11:03-0400 Body mass index (BMI) [Ratio] 40 kg/m2 Dr. Janet Valencia DO Work Phone: [facility] 03-27-2025 11:03-0400 Body temperature 97.6 [degF] Dr. Janet Valencia DO Work Phone: [facility] 03-27-2025 11:03-0400 Body weight 102.[address] Janet Valencia DO Work Phone: [facility] 03-27-2025 11:03-0400 Diastolic blood pressure 87 mm[Hg] Dr. Janet Valencia DO Work Phone: [facility] 03-27-2025 11:03-0400 Heart rate 64 /min Dr. Janet Valencia DO Work Phone: [facility] 03-27-2025 11:03-0400 Respiratory rate 18 /min Dr. Janet Valencia DO Work Phone: [facility] 03-27-2025 11:03-0400 SaO2% (BldA) [Mass fraction] 98 % Dr. Janet Valencia DO Work Phone: [facility] 03-27-2025 11:03-0400 Systolic blood pressure 130 mm[Hg] Dr. Janet Valencia DO Work Phone: [facility] 03-20-2025 14:43-0400 Body height 160.[address] Janet Valencia DO Work Phone: [facility] 03-20-2025 14:43-0400 Body mass index (BMI) [Ratio] 39.7 kg/m2 Dr. Janet Valencia DO Work Phone: [facility] 03-20-2025 14:43-0400 Body temperature 97.6 [degF] Dr. Janet Valencia DO Work Phone: [facility] 03-20-2025 14:43-0400 Body weight 101.[address] Janet Valencia DO Work Phone: [facility] 03-20-2025 14:43-0400 Diastolic blood pressure 74 mm[Hg] Dr. Janet Valencia DO Work Phone: [facility] 03-20-2025 14:43-0400 Heart rate 72 /min Dr. Janet Valencia DO Work Phone: [facility] 03-20-2025 14:43-0400 Respiratory rate 18 /min Dr. Janet Valencia DO Work Phone: [facility] 03-20-2025 14:43-0400 SaO2% (BldA) [Mass fraction] 98 % Dr. Janet Valencia DO Work Phone: [facility] 03-20-2025 14:43-0400 Systolic blood pressure 104 mm[Hg] Dr. Janet Valencia DO Work Phone: [facility] 03-07-2025 10:05-0400 Body temperature 97.6 [degF] Dr. Janet Valencia DO Work Phone: [facility] 03-07-2025 10:05-0400 Diastolic blood pressure 81 mm[Hg] Dr. Janet Valencia DO Work Phone: [facility] 03-07-2025 10:05-0400 Heart rate 70 /min Dr. Jnaet Valencia DO Work Phone: [facility] 03-07-2025 10:05-0400 Respiratory rate 16 /min Dr. Janet Valencia DO Work Phone: [facility] 03-07-2025 10:05-0400 SaO2% (BldA) [Mass fraction] 100 % Dr. Janet Valencia DO Work Phone: [facility] 03-07-2025 10:05-0400 Systolic blood pressure 124 mm[Hg] Dr. Janet Valencia DO Work Phone: [facility] 03-07-2025 08:10-0400 Body height 160.[address] Janet Valencia DO Work Phone: [facility] 03-07-2025 08:10-0400 Body mass index (BMI) [Ratio] 40.2 kg/m2 Dr. Janet Valencia DO Work Phone: [facility] 03-07-2025 08:10-0400 Body weight [address] Janet Valencia DO Work Phone: [facility] 02-22-2025 12:06-0400 Body temperature 96.7 [degF] Dr. Janet Valencia DO Work Phone: [facility] 02-22-2025 12:06-0400 Diastolic blood pressure 70 mm[Hg] Dr. Janet Valencia DO Work Phone: [facility] 02-22-2025 12:06-0400 Heart rate 66 /min Dr. Janet Valencia DO Work Phone: [facility] 02-22-2025 12:06-0400 Respiratory rate 16 /min Dr. Janet Valencia DO Work Phone: [facility] 02-22-2025 12:06-0400 Systolic blood pressure 135 mm[Hg] Dr. Janet Valencia DO Work Phone: [facility] 02-22-2025 09:28-0400 SaO2% (BldA) [Mass fraction] 98 % Dr. Janet Valencia DO Work Phone: [facility] 02-15-2025 08:10-0400 Body mass index (BMI) [Ratio] 37.9 kg/m2 Dr. Janet Valencia DO Work Phone: [facility] 02-15-2025 08:10-0400 Body weight 100.[address] Janet Valencia DO Work Phone: [facility] 01-23-2025 11:04-0400 Body height 162.[address] Janet Valencia DO Work Phone: [facility] 01-23-2025 11:04-0400 Body weight 101.[address] Janet Valencia DO Work Phone: [facility] 01-23-2025 09:44-0400 Body height 162.[address] Janet Valencia DO Work Phone: [facility] 01-23-2025 09:44-0400 Body mass index (BMI) [Ratio] 38.8 kg/m2 Dr. Janet Valencia DO Work Phone: [facility] 01-23-2025 09:44-0400 Body temperature 97.3 [degF] Dr. Janet Valencia DO Work Phone: [facility] 01-23-2025 09:44-0400 Body weight 102.[address] Janet Valencia DO Work Phone: [facility] 01-23-2025 09:44-0400 Diastolic blood pressure 69 mm[Hg] Dr. Janet Valencia DO Work Phone: [facility] 01-23-2025 09:44-0400 Heart rate 62 /min Dr. Janet Valencia DO Work Phone: [facility] 01-23-2025 09:44-0400 Respiratory rate 18 /min Dr. Janet Valencia DO Work Phone: [facility] 01-23-2025 09:44-0400 SaO2% (BldA) [Mass fraction] 96 % Dr. Janet Valencia DO Work Phone: [facility] 01-23-2025 09:44-0400 Systolic blood pressure 104 mm[Hg] Dr. Janet Valencia DO Work Phone: [facility] 01-03-2025 10:23-0400 Body height 162.[address] Janet Valencia DO Work Phone: [facility] 01-03-2025 10:23-0400 Body mass index (BMI) [Ratio] 39.4 kg/m2 Dr. Janet Valencia DO Work Phone: [facility] 01-03-2025 10:23-0400 Body weight 104.[address] Janet Valencia DO Work Phone: [facility] 01-03-2025 10:23-0400 Diastolic blood pressure 81 mm[Hg] Dr. Janet Valencia DO Work Phone: [facility] 01-03-2025 10:23-0400 Heart rate 73 /min Dr. Janet Valencia DO Work Phone: [facility] 01-03-2025 10:23-0400 Respiratory rate 18 /min Dr. Janet Valencia DO Work Phone: [facility] 01-03-2025 10:23-0400 SaO2% (BldA) [Mass fraction] 97 % Dr. Janet Valencia DO Work Phone: [facility] 01-03-2025 10:23-0400 Systolic blood pressure 128 mm[Hg] Dr. Janet Valencia DO Work Phone: [facility] 12-26-2024 10:56-0400 Body mass index (BMI) [Ratio] 38.72 kg/m2 Isabel Jie PA-C Work Phone: [facility] 12-26-2024 10:56-0400 Body weight 102.97 kg Isabel Jie PA-C Work Phone: [facility] 12-26-2024 10:56-0400 Diastolic blood pressure 79 mm[Hg] Isabel Jie PA-C Work Phone: [facility] 12-26-2024 10:56-0400 Heart rate 80 /min Isabel Jie PA-C Work Phone: [facility] 12-26-2024 10:56-0400 Respiratory rate 16 /min Isabel Jie PA-C Work Phone: [facility] 12-26-2024 10:56-0400 SaO2% (BldA) [Mass fraction] 100 % Isabel Jie PA-C Work Phone: [facility] 12-26-2024 10:56-0400 Systolic blood pressure 144 mm[Hg] Isabel Jie PA-C Work Phone: [facility] 12-19-2024 13:33-0400 Body mass index (BMI) [Ratio] 38.2 kg/m2 Dr. Janet Valencia DO Work Phone: [facility] 12-19-2024 13:33-0400 Body weight 101.[address] Janet Valencia DO Work Phone: [facility] 11-21-2024 15:01-0400 Body temperature 97.1 [degF] Dr. Janet Valencia DO Work Phone: [facility] 11-21-2024 15:01-0400 Diastolic blood pressure 64 mm[Hg] Dr. Janet Valencia DO Work Phone: [facility] 11-21-2024 15:01-0400 Heart rate 70 /min Dr. Janet Valencia DO Work Phone: [facility] 11-21-2024 15:01-0400 Respiratory rate 16 /min Dr. Janet Valencia DO Work Phone: [facility] 11-21-2024 15:01-0400 SaO2% (BldA) [Mass fraction] 100 % Dr. Janet Valencia DO Work Phone: [facility] 11-21-2024 15:01-0400 Systolic blood pressure 134 mm[Hg] Dr. Janet Valencia DO Work Phone: [facility] 11-21-2024 13:02-0400 Body height 162.[address] Janet Valencia DO Work Phone: [facility] 11-21-2024 13:02-0400 Body mass index (BMI) [Ratio] 38.2 kg/m2 Dr. Janet Valencia DO Work Phone: [facility] 11-21-2024 13:02-0400 Body weight [address] Janet Valencia DO Work Phone: [facility] 11-01-2024 14:43-0500 Diastolic blood pressure 78 mm[Hg] Dr. Janet Valencia DO Work Phone: [facility] 11-01-2024 14:43-0500 Heart rate 62 /min Dr. Janet Valencia DO Work Phone: [facility] 11-01-2024 14:43-0500 Respiratory rate 18 /min Dr. Janet Valencia DO Work Phone: [facility] 11-01-2024 14:43-0500 Systolic blood pressure 162 mm[Hg] Dr. Janet Valencia DO Work Phone: [facility] 10-27-2024 01:53-0500 Body weight 105.[address] Janet Valencia DO Work Phone: [facility] 10-25-2024 07:48-0500 Body mass index (BMI) [Ratio] 39.8 kg/m2 Dr. Janet Valencia DO Work Phone: [facility] 10-25-2024 07:48-0500 Body weight 105.[address] Janet Valencia DO Work Phone: [facility] 10-25-2024 07:48-0500 Diastolic blood pressure 85 mm[Hg] Dr. Janet Valencia DO Work Phone: [facility] 10-25-2024 07:48-0500 Heart rate 62 /min Dr. Janet Valencia DO Work Phone: [facility] 10-25-2024 07:48-0500 Respiratory rate 20 /min Dr. Janet Valencia DO Work Phone: [facility] 10-25-2024 07:48-0500 Systolic blood pressure 155 mm[Hg] Dr. Janet Valencia DO Work Phone: [facility] 10-18-2024 10:00-0500 Body height 162.[address] Janet Valencia DO Work Phone: [facility] 10-18-2024 10:00-0500 Body weight 105.[address] Janet Valencia DO Work Phone: [facility] 09-29-2024 17:21-0500 Body temperature 97.8 [degF] Dr. Janet Valencia DO Work Phone: [facility] 09-29-2024 17:21-0500 Diastolic blood pressure 82 mm[Hg] Dr. Janet Valencia DO Work Phone: [facility] 09-29-2024 17:21-0500 Heart rate 78 /min Dr. Janet Valencia DO Work Phone: [facility] 09-29-2024 17:21-0500 Respiratory rate 20 /min Dr. Janet Valencia DO Work Phone: [facility] 09-29-2024 17:21-0500 SaO2% (BldA) [Mass fraction] 100 % Dr. Janet Valencia DO Work Phone: [facility] 09-29-2024 17:21-0500 Systolic blood pressure 126 mm[Hg] Dr. Janet Valencia DO Work Phone: [facility] 09-29-2024 14:01-0500 Body mass index (BMI) [Ratio] 38.1 kg/m2 Dr. Janet Valencia DO Work Phone: [facility] 09-29-2024 14:01-0500 Body weight 100.[address] Janet Valencia DO Work Phone: [facility] 09-28-2024 14:43-0500 Body temperature 97.8 [degF] Dr. Janet Valencia DO Work Phone: [facility] 09-28-2024 14:43-0500 Diastolic blood pressure 74 mm[Hg] Dr. Janet Valencia DO Work Phone: [facility] 09-28-2024 14:43-0500 Heart rate 74 /min Dr. Janet Valencia DO Work Phone: [facility] 09-28-2024 14:43-0500 Respiratory rate 15 /min Dr. Janet Valencia DO Work Phone: [facility] 09-28-2024 14:43-0500 SaO2% (BldA) [Mass fraction] 96 % Dr. Janet Valencia DO Work Phone: [facility] 09-28-2024 14:43-0500 Systolic blood pressure 104 mm[Hg] Dr. Janet Valencia DO Work Phone: [facility] 09-28-2024 09:21-0500 Body mass index (BMI) [Ratio] 38.1 kg/m2 Dr. Janet Valencia DO Work Phone: [facility] 09-28-2024 09:21-0500 Body weight 100.[address] Janet Valencia DO Work Phone: [facility] 09-20-2024 09:53-0500 Body mass index (BMI) [Ratio] 39.3 kg/m2 Dr. Janet Valencia DO Work Phone: [facility] 09-20-2024 09:53-0500 Body weight 104.[address] Janet Valencia DO Work Phone: [facility] 09-20-2024 09:53-0500 Diastolic blood pressure 93 mm[Hg] Dr. Janet Valencia DO Work Phone: [facility] 09-20-2024 09:53-0500 Heart rate 78 /min Dr. Janet Valencia DO Work Phone: [facility] 09-20-2024 09:53-0500 Respiratory rate 20 /min Dr. Janet Valencia DO Work Phone: [facility] 09-20-2024 09:53-0500 SaO2% (BldA) [Mass fraction] 96 % Dr. Janet Valencia DO Work Phone: [facility] 09-20-2024 09:53-0500 Systolic blood pressure 155 mm[Hg] Dr. Janet Valencia DO Work Phone: [facility] 09-19-2024 13:34-0500 Body mass index (BMI) [Ratio] 39.2 kg/m2 Dr. Janet Valencia DO Work Phone: [facility] 09-19-2024 13:34-0500 Body weight 104.[address] Janet Valencia DO Work Phone: [facility] 09-13-2024 09:30-0500 Body weight 104.[address] Janet Valencia DO Work Phone: [facility] 08-30-2024 10:50-0500 Body temperature 98 [degF] Dr. Janet Valencia DO Work Phone: [facility] 08-30-2024 10:50-0500 Diastolic blood pressure 72 mm[Hg] Dr. Janet Valencia DO Work Phone: [facility] 08-30-2024 10:50-0500 Heart rate 68 /min Dr. Janet Valencia DO Work Phone: [facility] 08-30-2024 10:50-0500 Respiratory rate 18 /min Dr. Janet Valencia DO Work Phone: [facility] 08-30-2024 10:50-0500 SaO2% (BldA) [Mass fraction] 100 % Dr. Janet Valencia DO Work Phone: [facility] 08-30-2024 10:50-0500 Systolic blood pressure 122 mm[Hg] Dr. Janet Valencia DO Work Phone: [facility] 08-30-2024 09:09-0500 Body mass index (BMI) [Ratio] 39.9 kg/m2 Dr. Janet Valencia DO Work Phone: [facility] 08-30-2024 09:09-0500 Body weight 105.[address] Janet Valencia DO Work Phone: [facility] 08-16-2024 10:39-0500 Body mass index (BMI) [Ratio] 41.1 kg/m2 Dr. Janet Valencia DO Work Phone: [facility] 08-16-2024 10:39-0500 Body weight 105.[address] Janet Valencia DO Work Phone: [facility] 08-16-2024 10:39-0500 Diastolic blood pressure 85 mm[Hg] Dr. Janet Valencia DO Work Phone: [facility] 08-16-2024 10:39-0500 Heart rate 85 /min Dr. Janet Valencia DO Work Phone: [facility] 08-16-2024 10:39-0500 Respiratory rate 16 /min Dr. Janet Valencia DO Work Phone: [facility] 08-16-2024 10:39-0500 SaO2% (BldA) [Mass fraction] 90 % Dr. Janet Valencia DO Work Phone: [facility] 08-16-2024 10:39-0500 Systolic blood pressure 140 mm[Hg] Dr. Janet Valenica DO Work Phone: [facility] 08-06-2024 10:00-0500 Body weight 104.[address] Janet Valencia DO Work Phone: [facility] 12-15-2023 09:00-0400 Body weight 106.[address] Janet Valencia Work Phone: [facility] 11-29-2023 10:01-0400 Body height 160.[address] Cristobal Olmos Work Phone: [facility] 11-29-2023 10:01-0400 Body weight 110.[address] Cristobal Olmos Work Phone: [facility] 11-28-2023 09:39-0400 Body mass index (BMI) [Ratio] 43.2 kg/m2 Dr. Cristobal Olmos Work Phone: [facility] 11-24-2023 09:15-0400 Body height 160.[address] Cristobal Olmos Work Phone: [facility] 11-24-2023 09:15-0400 Body weight 107.[address] Cristobal Olmos Work Phone: [facility] 10-31-2023 09:23-0500 Body height 160.[address] Cristobal Olmos Work Phone: [facility] 10-31-2023 09:23-0500 Body weight 109.[address] Cristobal Olmos Work Phone: [facility] 10-24-2023 07:33-0500 Body height 160.02 cm [employer] Keisha Williamson Work Phone: [facility] 10-24-2023 07:33-0500 Body mass index (BMI) [Ratio] 42.5 kg/m2 [employer] Keisha Williamson Work Phone: [facility] 10-24-2023 07:33-0500 Body temperature 98 [degF] [employer] Keisha Clay Work Phone: [facility] 10-24-2023 07:33-0500 Body weight 108.86 kg [employer] Keishaandrade Williamson Work Phone: [facility] 10-24-2023 07:33-0500 Diastolic blood pressure 79 mm[Hg] [employer] Keisha Williamson Work Phone: [facility] 10-24-2023 07:33-0500 Heart rate 75 /min [employer] Keisha Williamson Work Phone: [facility] 10-24-2023 07:33-0500 Respiratory rate 20 /min [employer] Keisha Clay Work Phone: [facility] 10-24-2023 07:33-0500 SaO2% (BldA) [Mass fraction] 99 % [employer] Keisha Clay Work Phone: [facility] 10-24-2023 07:33-0500 Systolic blood pressure 123 mm[Hg] [employer] Keisha Clay Work Phone: [facility] 10-05-2023 09:53-0500 Body weight 112.03 kg [employer] Keisha Clay Work Phone: [facility] 09-28-2023 11:14-0500 Body height 160.02 cm [employer] Keisha Clay Work Phone: [facility] 09-28-2023 11:14-0500 Body mass index (BMI) [Ratio] 43.2 kg/m2 [employer] Keisha Clay Work Phone: [facility] 09-28-2023 11:14-0500 Body weight 110.67 kg [employer] Keisha Clay Work Phone: [facility] 09-28-2023 11:14-0500 Diastolic blood pressure 81 mm[Hg] [employer] Keisha Clay Work Phone: [facility] 09-28-2023 11:14-0500 Heart rate 76 /min [employer] Keisha Clay Work Phone: [facility] 09-28-2023 11:14-0500 Respiratory rate 16 /min [employer] Keisha Clay Work Phone: [facility] 09-28-2023 11:14-0500 Systolic blood pressure 123 mm[Hg] [employer] Keisha Clay Work Phone: [facility] 09-14-2023 09:30-0500 Body weight 111.76 kg [employer] Keisha Williamson Work Phone: [facility] 08-29-2023 00:21-0500 Body weight 111.22 kg [employer] Keisha Williamson Work Phone: [facility] 08-17-2023 14:00-0500 Body height 160.[address] Janet Valencia Work Phone: [facility] 08-17-2023 14:00-0500 Body weight 111.[address] Janet Valencia Work Phone: [facility] 08-04-2023 13:45-0500 Body height 160.[address] Janet Valencia Work Phone: [facility] 08-04-2023 13:45-0500 Body weight 108.[address] Janet Valencia Work Phone: [facility] 08-04-2023 13:45-0500 Heart rate 86 /min Dr. Janet Valencia Work Phone: [facility] 08-04-2023 13:45-0500 SaO2% (BldA) [Mass fraction] 98 % Dr. Janet Valencia Work Phone: [facility] 07-29-2023 00:40-0500 Body weight 112.[address] Janet Valencia Work Phone: [facility] 07-25-2023 08:17-0500 Body height 160.[address] Janet Valencia Work Phone: [facility] 07-25-2023 08:17-0500 Body weight 112.[address] Janet Valencia Work Phone: [facility] 07-12-2023 14:10-0500 Body mass index (BMI) [Ratio] 43 kg/m2 Dr. Janet Valencia Work Phone: [facility] 07-12-2023 14:10-0500 Body temperature 97.3 [degF] Dr. Janet Valencia Work Phone: [facility] 07-12-2023 14:10-0500 Body weight 110.[address] Janet Valencia Work Phone: [facility] 07-12-2023 14:10-0500 Diastolic blood pressure 74 mm[Hg] Dr. Janet Valencia Work Phone: [facility] 07-12-2023 14:10-0500 Heart rate 92 /min Dr. Janet Valencia Work Phone: [facility] 07-12-2023 14:10-0500 SaO2% (BldA) [Mass fraction] 99 % Dr. Janet aVlencia Work Phone: [facility] 07-12-2023 14:10-0500 Systolic blood pressure 107 mm[Hg] Dr. Janet Valencia Work Phone: [facility] 07-04-2023 09:30-0500 Body weight 110.[address] Janet Valencia Work Phone: [facility] 06-29-2023 00:36-0400 Body weight 114.[address] Janet Valencia Work Phone: [facility] 06-06-2023 10:38-0400 Body height 160.[address] Janet Valencia Work Phone: [facility] 06-06-2023 10:38-0400 Body weight 114.[address] Janet Valencia Work Phone: [facility] 05-27-2023 09:10-0400 Body height 160.[address] Janet Valencia Work Phone: [facility] 05-27-2023 09:10-0400 Body mass index (BMI) [Ratio] 44.1 kg/m2 Dr. Janet Valencia Work Phone: [facility] 05-27-2023 09:10-0400 Body weight 113.[address] Janet Valencia Work Phone: [facility] 05-11-2023 11:00-0400 Body weight 112.[address] Janet Valencia Work Phone: [facility] 04-20-2023 11:02-0400 Body height 160.02 cm [facility] 04-20-2023 11:02-0400 Body weight 113.03 kg [facility] 03-22-2023 09:33-0400 Body mass index (BMI) [Ratio] 43.8 kg/m2 [facility] 03-22-2023 09:33-0400 Body weight 112.2 kg [facility] 03-22-2023 09:01-0400 Body height 160.02 cm [facility] 03-22-2023 09:01-0400 Body temperature 98 [degF] [facility] 03-22-2023 09:01-0400 Diastolic blood pressure 68 mm[Hg] [facility] 03-22-2023 09:01-0400 Heart rate 95 /min [facility] 03-22-2023 09:01-0400 Respiratory rate 14 /min [facility] 03-22-2023 09:01-0400 SaO2% (BldA) [Mass fraction] 100 % [facility] 03-22-2023 09:01-0400 Systolic blood pressure 133 mm[Hg] [facility] 03-07-2023 09:46-0400 Body weight 112.58 kg [facility] 02-14-2023 11:18-0400 Body height 161.29 cm [facility] 02-14-2023 11:18-0400 Body weight 112.12 kg [facility] 01-26-2023 12:00-0400 Body weight 113.12 kg [facility] 12-30-2022 11:30-0400 Body height 161.29 cm [facility] 12-30-2022 11:30-0400 Body weight 112.76 kg [facility] 12-08-2022 10:07-0400 Body height 161.29 cm [facility] 12-08-2022 10:07-0400 Body weight 113.85 kg [facility] 04-23-2022 11:42-0400 Body temperature 95.7 [degF] Génesis Carlton MD Work Phone: [facility] 04-23-2022 11:42-0400 Body weight 104.78 kg Génesis Carlton MD Work Phone: [facility] 04-23-2022 11:42-0400 Diastolic blood pressure 55 mm[Hg] Génesis Carlton MD Work Phone: [facility] 04-23-2022 11:42-0400 Heart rate 81 /min Génesis Carlton MD Work Phone: [facility] 04-23-2022 11:42-0400 Systolic blood pressure 112 mm[Hg] Génesis Carlton MD Work Phone: [facility] 01-29-2022 11:21-0400 Body height 161.[address] Janet Valencia Work Phone: [facility] Work Phone: 01-29-2022 11:21-0400 Body mass index (BMI) [Ratio] 40.9 kg/m2 Dr. Janet Valencia Work Phone: [facility] Work Phone: 01-29-2022 11:21-0400 Body temperature 98.4 [degF] Dr. Janet Valencia Work Phone: [facility] Work Phone: 01-29-2022 11:21-0400 Body weight 106.[address] Janet Valencia Work Phone: [facility] Work Phone: 01-29-2022 11:21-0400 Diastolic blood pressure 87 mm[Hg] Dr. Janet Valencia Work Phone: [facility] Work Phone: 01-29-2022 11:21-0400 Heart rate 75 /min Dr. Janet Valencia Work Phone: [facility] Work Phone: 01-29-2022 11:21-0400 Inhaled oxygen flow rate 97 L/min Dr. Janet Valencia Work Phone: [facility] Work Phone: 01-29-2022 11:21-0400 Respiratory rate 16 /min Dr. Janet Vlaencia Work Phone: [facility] Work Phone: 01-29-2022 11:21-0400 Systolic blood pressure 132 mm[Hg] Dr. Janet Valencia Work Phone: [facility] Work Phone: 01-04-2022 13:44-0400 Body temperature 97 [degF] [facility] Work Phone: 01-04-2022 13:44-0400 Diastolic blood pressure 47 mm[Hg] [facility] Work Phone: 01-04-2022 13:44-0400 Heart rate 102 /min [facility] Work Phone: 01-04-2022 13:44-0400 Respiratory rate 16 /min [facility] Work Phone: 01-04-2022 13:44-0400 SaO2% (BldA) [Mass fraction] 99 % [facility] Work Phone: 01-04-2022 13:44-0400 Systolic blood pressure 116 mm[Hg] [facility] Work Phone: 01-04-2022 12:50-0400 Inhaled oxygen flow rate 2 L/min Dr. Janet Valencia Work Phone: [facility] Work Phone: 01-04-2022 11:03-0400 Body height 160.02 cm [facility] Work Phone: 01-04-2022 11:03-0400 Body mass index (BMI) [Ratio] 41.8 kg/m2 [facility] Work Phone: 01-04-2022 11:03-0400 Body weight 107 kg [facility] Work Phone: 02-17-2017 08:41-0400 BMI (Body Mass Index) 36.71 kg/m2 Soraya [facility] Work Phone: 02-17-2017 08:41-0400 Body Temperature 97.6 [degF] [facility] Work Phone: 02-17-2017 08:41-0400 BP Diastolic 80 mm[Hg] [facility] Work Phone: 02-17-2017 08:41-0400 BP Systolic 150 mm[Hg] [facility] Work Phone: 02-17-2017 08:41-0400 Height 158.75 cm [facility]aya [facility] Work Phone: 02-17-2017 08:41-0400 Pulse (Heart Rate) 82 /min [facility] Work Phone: 02-17-2017 08:41-0400 Pulse Oximetry 97 % [facility] Work Phone: 02-17-2017 08:41-0400 Respiratory Rate 18 /min [facility] Work Phone: 02-17-2017 08:41-0400 Weight 92.53 kg Soraya [facility] Work Phone: 08-19-2016 08:03-0500 Body Temperature 99.14 [degF] [facility] [employer] Phone: 08-19-2016 08:03-0500 BSA (Body Surface Area) 1.92 m2 Soraya [facility] Work Phone: 08-19-2016 08:03-0500 Height 158.75 cm [facility] Work Phone: 08-19-2016 08:03-0500 Weight 90 kg [facility] Work Phone: 05-01-2014 10:04-0400 BP Systolic 124 mm[Hg] [facility] Work Phone: 04-18-2014 13:45-0400 Heart rate 84 /min [facility] Work Phone: Encounters Encounter Date Encounter Type Care Provider Facility Start: 04-12-2025 End: 04-12-[address] Darya Abreu MD -[facility] Work Phone: Start: 04-12-2025 End: 04-12-[address] Janet Valencia DO Work Phone: -[facility] Start: 03-27-2025 End: 03-28-[address] Janet Valencia DO -Nutritional Services Work Phone: Start: 03-27-2025 End: 03-27-2025 Patient encounter procedure Clau CARMONA -[facility] Work Phone: Start: 03-27-2025 End: 03-28-[address] Janet Valencia DO Work Phone: -[facility] Start: 03-20-[address] John Jang MD -[facility] Start: 03-20-2025 End: 03-20-[address] John Jang MD -[facility] Work Phone: Start: 03-20-2025 End: 03-20-[address] Jante Valencia DO Work Phone: -[facility] Start: 03-07-2025 ambulatory [facility] Start: 03-07-2025 Non-patient / Non-visit Tato Bowman nd DO -[facility] Start: 03-07-2025 End: 03-07-2025 Admission to same day surgery center Tato Posey DO -Endoscopy Work Phone: Start: 03-07-2025 End: 03-07-[address] Janet Valencia DO Work Phone: -Endoscopy Start: 02-26-2025 Non-patient / Non-visit Dr. Reece Abreu MD -[facility] Work Phone: Start: 02-22-[address] John Jang MD -[facility] Start: 01-25-[address] John Jang MD -[facility] Start: 01-23-2025 End: 01-26-[address] Janet Valencia DO -Nutritional Services Work Phone: Start: 01-23-2025 End: 01-26-[address] Janet Valencia DO Work Phone: [facility] Work Phone: Start: 01-23-[address] [facility] Work Phone: Start: 01-23-2025 End: 01-23-[address] John Jang MD [facility] Work Phone: Start: 01-23-2025 End: 01-23-[address] Janet Valencia DO Work Phone: [facility] Work Phone: Start: 01-14-2025 Non-patient / Non-visit Jaqui lima [facility] Work Phone: Start: 01-14-2025 ambulatory Janet Valencia Facility: [facility] Start: 01-03-2025 End: 01-03-[address] Janet Valencia DO Work Phone: [facility] Work Phone: Start: 01-03-2025 End: 01-03-2025 Patient encounter procedure Clau CARMONA -Laboratory Work Phone: Start: 01-03-2025 End: 01-03-2025 Patient encounter procedure Clau CARMONA -[facility] Work Phone: Start: 01-03-2025 End: 01-03-2025 ambulatory Janet RebolledoRichard Facility:[facility] Start: 01-03-2025 End: 01-03-2025 ambulatory Janet RebolledoRichard Facility:[facility] Start: 12-27-2024 End: 12-28-2024 Follow-up encounter Isabel BLANC-C Work Phone: Rheumatology Start: 12-26-2024 End: 12-26-2024 ambulatory ISABEL CERON Facility:[facility] Start: 12-26-2024 End: 12-26-2024 Patient encounter procedure Isabel Ceron PA-C Work Phone: Rheumatology Comment on above: Sjogren's syndrome, with unspecified organ involvement (HCC) (Primary Dx); Dry mouth; Primary osteoarthritis of left knee; History of vitamin D deficiency; Radiculopathy, lumbar region Start: 12-26-2024 End: 12-26-2024 ambulatory ISABEL CERON Facility:[facility] Start: 12-19-2024 End: 12-19-[address] John Agee DO -[facility] Work Phone: Start: 12-19-2024 End: 12-19-2024 ambulatory [facility] Start: 11-21-2024 ambulatory Janet Richard Facility: [facility] Start: 11-21-2024 Non-patient / Non-visit Tato Bowman nd, DO -[facility] Start: 11-21-2024 End: 11-21-2024 Admission to same day surgery center Tato Posey DO -Endoscopy Work Phone: Start: 11-21-2024 End: 11-21-[address] Janet Valencia DO Work Phone: [facility] Work Phone: Start: 11-01-2024 End: 11-01-[address] Ravindra Singh MD -[facility] Work Phone: Start: 11-01-2024 End: 11-01-2024 ambulatory [facility] Facility:[facility] Start: 10-25-2024 End: 10-25-[address] Ravindra Singh MD -[facility] Work Phone: Start: 10-25-2024 End: 10-25-[address] Janet Valencia DO Work Phone: [facility] Work Phone: Start: 10-25-2024 End: 10-25-2024 ambulatory [facility] Facility:[facility] Start: 10-18-2024 End: 10-26-[address] Janet Valencia DO -Nutritional Services Work Phone: Start: 10-18-2024 End: 10-26-2024 ambulatory [facility] Facility:[facility] Start: 10-10-2024 ambulatory [facility] Facility: [facility] Start: 10-10-2024 End: 11-02-2024 Telephone encounter Génesis Carlton MD Work Phone: Rheumatology Comment on above: Orders Start: 10-09-2024 End: 10-09-2024 Patient encounter procedure Tory Hewitt -Radiology, [facility] Work Phone: Start: 10-09-2024 End: 10-09-2024 ambulatory [facility] Facility:[facility] Start: 09-29-2024 End: 09-29-2024 Emergency department patient visit Dr. Anthony Torres DO -Emergency Department Work Phone: Start: 09-28-2024 End: 09-28-2024 Emergency department patient visit Dr. Carolyne Leigh DO -Emergency Department Work Phone: Start: 09-20-2024 End: 09-20-2024 Patient encounter procedure Clau CARMONA -Laboratory Work Phone: Start: 09-20-2024 End: 09-20-2024 Patient encounter procedure Clau CARMONA -[facility] Work Phone: Start: 09-20-2024 End: 09-20-2024 ambulatory [facility] Facility:[facility] Start: 09-19-2024 End: 09-19-[address] John Agee DO -[facility] Work Phone: Start: 09-19-2024 End: 09-20-2024 ambulatory [facility] Facility:[facility] Start: 09-13-2024 End: 09-28-[address] Janet Valencia DO -Nutritional Services Work Phone: Start: 09-13-2024 End: 09-28-2024 ambulatory [facility] Facility:[facility] Start: 08-30-2024 Non-patient / Non-visit Tato Bowman nd DO -[facility] Start: 08-30-2024 End: 08-30-2024 Admission to same day surgery center Tato Posey DO -Endoscopy Work Phone: Start: 08-30-2024 End: 08-30-2024 ambulatory [facility] Facility:[facility] Start: 08-21-2024 End: 08-21-2024 Patient encounter procedure Tory Hewitt -Radiology, [facility] Work Phone: Start: 08-21-2024 End: 08-21-2024 ambulatory [facility] Facility:[facility] Start: 08-16-2024 End: 08-16-2024 Patient encounter procedure Clau CARMONA -Laboratory Work Phone: Start: 08-16-2024 End: 08-16-2024 Patient encounter procedure Clau CARMONA -[facility] Work Phone: Start: 08-16-2024 End: 08-16-2024 ambulatory Janet Valencia Facility:[facility] Start: 08-16-2024 End: 08-16-2024 ambulatory Janet Valencia Facility:[facility] Start: 08-06-2024 End: 08-28-[address] Janet Valencia DO -Nutritional Services Work Phone: Start: 08-06-2024 End: 08-28-2024 ambulatory Janet Valencia Facility:[facility] Start: 07-25-2024 End: 07-25-[address] Janet Valencia DO -Outpatient Breast Imaging Work Phone: Start: 07-25-2024 End: 07-25-2024 ambulatory Janet Valencia Facility:[facility] Start: 07-04-2024 End: 07-28-2024 ambulatory Janet Valencia Facility:[facility] Start: 07-03-2024 End: 07-03-2024 ambulatory [facility] Facility:[facility] Start: 05-30-2024 End: 06-28-2024 [facility] Start: 05-14-2024 End: 05-14-2024 ambulatory Janet Valencia Facility:[facility] Start: 04-26-2024 End: 04-26-2024 ambulatory Angélica Marcelino [employer] Facility[place] Start: 04-25-2024 ambulatory Supriya Schafer NP Facili ty:[facility] Start: 04-25-2024 End: 04-28-2024 ambulatory Janet Valencia Facility:[facility] Start: 04-25-2024 End: 04-25-2024 ambulatory Supriya Schafer NP Facility:[facility] Start: 04-24-2024 End: 04-24-2024 Emergency department patient visit Josuelogan Apodaca Facility:[facility] Start: 12-21-[address] Janet Valencia Work Phone: [facility]-Physical Therapy Work Phone: Start: 12-15-2023 End: 12-27-[address] Janet Valencia Work Phone: [facility] Work Phone: Start: 12-15-2023 End: 12-27-[address] [facility] Start: 12-12-2023 End: 12-12-[address] Janet Valencia Work Phone: [facility] Work Phone: Start: 11-29-2023 Non-patient / Non-visit Dr. Yasmin Olmos Work Phone: [facility] Work Phone: Start: 11-29-2023 End: 11-29-2023 Admission to same day surgery center Dr. Cristobal Olmos Work Phone: [facility]-[employer] Eng[employer] Partner/Special Procedures Work Phone: Start: 11-29-2023 End: 11-29-[address] Cristobal Olmos Work Phone: [facility] Work Phone: Start: 11-28-2023 Non-patient / Non-visit Dr. Kalina Valencia Work Phone: [facility] Start: 11-25-2023 End: 11-25-[address] Cristobal Olmos Work Phone: [facility] Work Phone: Start: 11-25-2023 End: 11-25-[address] Cristobal Olmos Work Phone: [facility] [place] Work Phone: Start: 11-24-2023 End: 11-27-[address] Cristobal Olmos Work Phone: [facility] Work Phone: Start: 11-24-2023 End: 11-27-[address] Crist[facility] Start: 11-16-2023 End: 11-16-[address] Cristobal Olmos Work Phone: [facility] Work Phone: Start: 11-11-2023 Non-patient / Non-visit Dr. Yasmin Olmos Work Phone: [facility] Work Phone: Start: 11-10-2023 End: 11-10-[address] Cristobal Olmos Work Phone: [facility] Work Phone: Start: 11-10-2023 End: 11-10-[address] [facility] Start: 11-08-2023 End: 11-08-[address] Cristobal Olmos Work Phone: [facility] Work Phone: Start: 11-08-2023 End: 11-08-[address] Cristobal Olmos Work Phone: [facility] Work Phone: Start: 11-07-[address] Cristobal Olmos Work Phone: [facility]-Physical Therapy Work Phone: Start: 10-31-[address] Cristobal Olmos Work Phone: [facility]-Nutritional Services Work Phone: Start: 10-24-2023 End: 10-24-2023 Patient encounter procedure KRISTINE Williamson Work Phone: [facility]-Pulmonary Medicine [facility] Work Phone: Start: 10-19-2023 End: 10-19-2023 Patient encounter procedure [employer]-C Keisha Williamson Work Phone: [facility] Work Phone: Start: 10-14-2023 Registered Recurring [employer]-C Rayna Williamson Work Phone: [facility]-Physical Therapy Work Phone: Start: 10-05-2023 End: 10-27-2023 ambulatory [employer] Keisha Williamson Work Phone: [facility] Work Phone: Start: 10-05-2023 End: 10-27-2023 Discharged Recurring [employer]-C Keisha Williamson [facility] Start: 09-28-2023 End: 09-28-2023 Patient encounter procedure [employer]-C Keisha Williamson Work Phone: [facility] Work Phone: Start: 09-26-2023 Registered Recurring [employer]-C Rayna Williamson Work Phone: [facility]-Physical Therapy Work Phone: Start: 09-14-2023 End: 09-28-2023 ambulatory [employer]C Keisha Williamson Work Phone: [facility] Work Phone: Start: 09-14-2023 End: 09-28-2023 Discharged Recurring [employer]-C Keisha Williamson [facility] Start: 08-18-2023 Non-patient / Non-visit Dr. Kalina Valencia Work Phone: [facility] Start: 08-18-2023 End: 08-18-[address] Janet Valencia Work Phone: [facility] Work Phone: Start: 08-18-2023 End: 08-18-[address] [facility] Start: 08-17-2023 End: 08-28-[address] Janet Valencia Work Phone: [facility] Work Phone: Start: 08-17-2023 End: 08-28-[address] [facility] Start: 08-17-[address] [facility] Start: 08-05-2023 Non-patient / Non-visit Dr. Kalina Valencia Work Phone: [facility] Start: 08-04-2023 End: 08-04-[address] Janet Valencia Work Phone: [facility] Work Phone: Start: 08-04-2023 End: 08-04-[address] Janet Valencia Work Phone: [facility]-Pulmonary Services/Neurology Work Phone: Start: 07-28-2023 Non-patient / Non-visit Dr. Kalina Valencia Work Phone: [facility] Start: 07-27-2023 End: 07-27-[address] Janet Valencia Work Phone: [facility] Work Phone: Start: 07-27-2023 End: 07-27-[address] Janet Valencia Work Phone: [facility]-Pulmonary Services/Neurology Work Phone: Start: 07-25-2023 End: 07-28-[address] Janet Valencia Work Phone: [facility] Work Phone: Start: 07-25-2023 End: 07-28-[address] Janet Valencia Work Phone: [facility]-Nutritional Services Work Phone: Start: 07-18-2023 End: 07-18-[address] Janet Valencia Work Phone: [facility] Work Phone: Start: 07-18-2023 End: 07-18-[address] Janet Valencia Work Phone: [facility] Start: 07-14-2023 End: 07-14-[address] Janet Valencia Work Phone: [facility] Work Phone: Start: 07-14-2023 End: 07-14-[address] Janet Valencia Work Phone: [facility]-Breast Imaging - Biopsy/[place] Work Phone: Start: 07-12-2023 End: 07-12-[address] Janet Valencia Work Phone: [facility]-Pulmonary Medicine [facility] Work Phone: Start: 07-12-[address] Janet Valencia Work Phone: [facility]-Physical Therapy Work Phone: Start: 07-04-[address] Janet Valencia Work Phone: [facility]-Nutritional Services Work Phone: Start: 06-21-2023 End: 06-21-[address] Janet Valencia Work Phone: [facility] Work Phone: Start: 06-21-2023 End: 06-21-[address] Janet Valencia Work Phone: [facility]-Radiology, [facility] Work Phone: Start: 06-20-2023 End: 06-20-[address] Janet Valencia Work Phone: [facility] Work Phone: Start: 06-20-2023 End: 06-20-[address] Janet Valencia Work Phone: [facility] Start: 06-06-2023 End: 06-28-[address] Janet Valencia Work Phone: [facility] Work Phone: Start: 06-06-2023 End: 06-28-[address] [facility] Start: 06-06-[address] [facility] Start: 05-27-2023 End: 05-27-[address] Janet Valencia Work Phone: [facility] Work Phone: Start: 05-11-2023 End: 05-28-[address] Janet Valencia Work Phone: [facility] Work Phone: Start: 05-11-2023 End: 05-28-[address] [facility] Start: 04-28-2023 End: 04-28-2023 ambulatory [facility] Work Phone: Start: 04-28-2023 End: 04-28-2023 Patient encounter procedure [facility]-Outpatient Bone Densitometry Work Phone: Start: 04-20-2023 End: 04-28-2023 ambulatory [facility] Work Phone: Start: 04-20-2023 End: 04-28-2023 Discharged Recurring [facility]-Nutritional Services Work Phone: Start: 04-08-2023 Telephone encounter Génesis Carlton MD Work Phone: Rheumatology Comment on above: Orders Start: 03-24-2023 Telephone encounter Génesis Carlton MD Work Phone: Rheumatology Comment on above: Future Appointment ( labs) Start: 03-22-2023 End: 03-22-2023 Emergency department patient visit [facility]-Emergency Department Work Phone: Start: 03-07-2023 End: 03-28-2023 ambulatory [facility] Work Phone: Start: 03-07-2023 End: 03-28-2023 Discharged Recurring [facility]-Nutritional Services Work Phone: Start: 02-14-2023 End: 02-25-2023 ambulatory [facility] Work Phone: Start: 02-14-2023 End: 02-25-2023 Discharged Recurring [facility]-Nutritional Services Work Phone: Start: 01-26-2023 End: 01-26-2023 ambulatory [facility] Work Phone: Start: 01-26-2023 End: 01-26-2023 Discharged Recurring [facility]-Nutritional Services Start: 01-17-2023 End: 01-17-2023 Discharged Recurring [facility]-Physical Therapy Start: 12-23-2022 Registered Recurring [facility]-Physical Therapy Start: 12-09-2022 Registered Recurring [facility]-Physical Therapy Start: 12-08-2022 End: 12-26-2022 ambulatory [facility] Work Phone: Start: 12-08-2022 End: 12-26-2022 Discharged Recurring [facility]-Nutritional Services Start: 12-08-2022 Registered Recurring [facility]-Nutritional Services Start: 12-02-2022 End: 12-02-2022 ambulatory [facility] Work Phone: Start: 12-02-2022 End: 12-02-2022 Patient encounter procedure [facility]-Laboratory Start: 08-16-2022 End: 08-16-2022 ambulatory [facility] Work Phone: Start: 08-16-2022 End: 08-16-2022 Patient encounter procedure [facility]-Radiology, [facility] Start: 07-12-2022 End: 07-12-2022 ambulatory [facility] Work Phone: Start: 07-12-2022 End: 07-12-2022 Patient encounter procedure [facility]-Outpatient Breast Imaging Start: 06-21-2022 End: 06-21-2022 ambulatory [facility] Work Phone: Start: 06-21-2022 End: 06-21-2022 Patient encounter procedure [facility]-Radiology, [facility] Start: 05-26-2022 End: 05-26-2022 Discharged Recurring [facility]-Physical Therapy Start: 05-19-2022 End: 05-19-2022 Patient encounter procedure [facility]-Laboratory, Specimen Start: 04-23-2022 End: 04-23-2022 Patient encounter procedure Génesis Carlton MD Work Phone: Rheumatology Comment on above: Sjogren's syndrome, with unspecified organ involvement (HCC) (Primary Dx); Dry mouth; Primary osteoarthritis of left knee Start: 04-02-2022 Telephone encounter Génesis Carlton MD Work Phone: Rheumatology Comment on above: Patient Question Start: 03-18-2022 End: 03-18-[address] Janet Valencia Work Phone: [facility]-Radiology, [facility] Start: 01-29-2022 End: 01-29-[address] Janet Valencia Work Phone: [facility]-Pulmonary Medicine [facility] Start: 01-04-2022 End: 01-04-2022 Admission to same day surgery center [facility]-Surgical Day Care Start: 12-21-2021 End: 12-21-2021 Patient encounter procedure [facility]-Cat Scan, [facility] Start: 12-14-2021 Telephone encounter Génesis Carlton MD Work Phone: Rheumatology Comment on above: Patient Update Procedures Date Procedure Procedure Detail Performing Clinician Start: 03-20-[address] IgA level [address] Janet Valencia DO Work Phone: Start: 03-20-[address] Janet Valencia DO Work Phone: Start: 03-20-2025 Gliadin antibody, Ig A measurement Dr. Janet Valencia DO Work Phone: Comment on above: Negative 0 - 19 Weak Positive 20 - 30 Moderate to Strong Positive >30 Start: 03-20-2025 Gliadin antibody, Ig G measurement Dr. Janet Valencia DO Work Phone: Comment on above: Negative 0 - 19 Weak Positive 20 - 30 Moderate to Strong Positive >30 Start: 03-20-[address] fraction [address] Janet Valencia DO Work Phone: Start: 03-20-[address] Janet Valencia DO Work Phone: Comment on above: Performed at: [address] [id number] Director: Meliton Browning PhD, Phone: [phone] Start: 03-20-2025 Measurement of immunoglobulin A in serum specimen Dr. Janet Valencia DO Work Phone: Start: 03-20-2025 Serum inorganic phos phate measurement Dr. Janet Valencia DO Work Phone: Start: 03-20-2025 Total iron binding c apacity measurement Dr. Janet Valencia DO Work Phone: Start: 03-07-[address] Janet steele DO Work Phone: Start: 01-25-[address]25 [address]om[address] antibody IgA level Dr[address] Janet Valencia DO Work Phone: Start: 01-25-2025 Gliadin antibody, Ig A measurement Dr. Janet Valencia DO Work Phone: Comment on above: Negative 0 - 19 Weak Positive 20 - 30 Moderate to Strong Positive >30 Start: 01-25-2025 Gliadin antibody, Ig G measurement Dr. Janet Valencia DO Work Phone: Comment on above: Negative 0 - 19 Weak Positive 20 - 30 Moderate to Strong Positive >30 Start: 01-25-2025 Measurement of immunoglobulin A in serum specimen Dr. Janet Valencia DO Work Phone: Comment on above: Performed at: [address] Director: Meliton Browning PhD, Phone: [phone] Start: 01-25-2025 Measurement of occul t blood in stool specimen using immunoassay Dr. Janet Valencia DO Work Phone: Start: 01-23-[address]25 [address]om[address] antibody IgA level Dr[address] Janet Valencia DO Work Phone: Start: 01-23-2025 Gliadin antibody, Ig A measurement Dr. Janet Valencia DO Work Phone: Comment on above: Negative 0 - 19 Weak Positive 20 - 30 Moderate to Strong Positive >30 Start: 01-23-2025 Gliadin antibody, Ig G measurement Dr. Janet Valencia DO Work Phone: Comment on above: Negative 0 - 19 Weak Positive 20 - 30 Moderate to Strong Positive >30 Start: 01-23-[address] fraction Dr[address] Janet Valencia DO Work Phone: Start: 01-23-[address] Janet Valencia DO Work Phone: Comment on above: Performed at: [place] [id number] Director: Meliton Browning PhD, Phone: [phone] Start: 01-23-2025 Measurement of immunoglobulin A in serum specimen Dr. Janet Valencia DO Work Phone: Start: 01-23-2025 Serum inorganic phos phate measurement Dr. Janet Valencia DO Work Phone: Start: 01-23-2025 Total iron binding c apacity measurement Dr. Janet Valencia DO Work Phone: Start: 12-19-2024 XR knee, [address] Kalina Valencia DO Work Phone: Start: 11-21-[address] Janet steele DO Work Phone: Start: 11-21-2024 Total iron binding c apacity measurement Dr. Janet Valencia DO Work Phone: Start: 10-09-2024 X-ray of cervical spine Dr. Janet Valencia DO Work Phone: Start: 09-29-2024 Plain chest X-ray Dr. Merritt Valencia DO Work Phone: Start: 09-29-2024 CT angiography of he ad and neck Dr. Janet Valencia DO Work Phone: Start: 09-29-[address] Janet Valencia DO Work Phone: Start: 09-29-2024 Measurement of renal function Dr. Janet Valencia DO Work Phone: Comment on above: GFR Calc Start: 09-28-2024 SARS-CoV-2, Influenz a & RSV (PCR) Dr. Janet Valencia DO Work Phone: Start: 09-20-2024 Total iron binding c apacity measurement Dr. Janet Valencia DO Work Phone: Start: 09-19-2024 X-ray of knee, four or more views Dr. Janet Valencia DO Work Phone: Start: 08-21-2024 X-ray of lumbar spin e, two or three views Dr. Janet Valencia DO Work Phone: Start: 07-25-2024 Screening mammography Pepe Valencia DO Work Phone: Start: 12-12-2023 Radiologic examinati on of knee Dr. Janet Valencia Work Phone: Start: 11-10-2023 Cardiovascular stres s test using pharmacologic stress agent Dr. Cristobal Olmos Work Phone: Start: 11-08-2023 MRI of joint of lowe r extremity Dr. Cristobal Olmos Work Phone: Start: 07-14-2023 Screening mammography Pepe Valencia Work Phone: Start: 06-21-2023 Plain chest X-ray Dr. Merritt Valencia Work Phone: Start: 05-27-2023 Radiologic examinati on of knee Dr. Janet Valencia Work Phone: Start: 04-28-2023 Dual energy X-ray absorptiometry Start: 03-22-2023 Radiography of ankle Start: 03-22-2023 Radiologic examinati on of knee Start: 08-16-2022 Diagnostic radiograp hy of abdomen Start: 07-12-2022 Screening mammography Start: 06-21-2022 Diagnostic radiograp hy of abdomen Start: 03-18-2022 Radiologic examinati on of knee Dr. Janet Valencia Work Phone: Start: 01-04-2022 End: 01-04-2022 Viral antigen assay Start: 01-04-2022 Cystoscopy Start: 12-21-2021 MRI of lower extremity Start: 11-19-2019 Lipid 1996 panel - S [place] or Plasma Génesis Carlton MD Work Phone: Start: 05-18-2019 Adult depression scr eening assessment Génesis Carlton MD Work Phone: Start: [...] DC Work Phone: Start: 05-31-2016 Screening for malign ant neoplasm of colon Screening, colon ca Soraya Milton Start: 03-02-2016 End: 03-02-2016 *BMP Chiquis Palacios PA-C Work Phone: Start: 02-12-2016 End: 08-17-2016 Follow Up Appt 3 months Angélica lima [employer] Work Phone: Start: 12-18-2015 End: 12-18-2015 *Hepatic Function Panel Jani Mckeon MD Start: 12-10-2015 End: 12-18-2015 Gamma glutamyl transferase Janet barney DO Work Phone: Start: 11-14-2015 End: 11-21-2015 *FLAKITA Janet Webbman DO Work Phone: Start: 11-14-2015 End: 11-14-2015 *CBC with Differential Janet Majano Work Phone: Start: 11-14-2015 End: 11-16-2015 *CMP Complete Metabolic Panel Janet Valencia DO Work Phone: Start: 11-14-2015 End: 11-17-2015 Alpha 1 antitrypsin [Mass/volume] in Serum or Plasma Janet Valencia DO Work Phone: Start: 11-14-2015 End: 11-14-2015 C reactive protein (hsCRP) Janet barney DO Work Phone: Start: 11-14-2015 End: 11-17-2015 Ceruloplasmin [Mass/volume] in Serum or Plasma Janet Valencia DO Work Phone: Start: 11-14-2015 End: 11-14-2015 Coagulation factor induced.INR assay in platelet poor plasma Janet Valencia DO Work Phone: Start: 11-14-2015 End: 11-14-2015 Erythrocyte sedimentation rate Janet Valencia DO Work Phone: Start: 11-14-2015 End: 11-16-2015 Ferritin Janet Valencia DO Work Phone: Start: 11-14-2015 End: 11-17-2015 Hepatitis A virus Ab [Presence] in Serum Janet Valencia DO Work Phone: Start: 11-14-2015 End: 11-17-2015 Hepatitis B virus core Ab [Presence] in Serum Janet Valencia DO Work Phone: Start: 11-14-2015 End: 11-18-2015 Mitochondria Ab [Presence] in Serum Janet Valencia DO Work Phone: Start: 11-14-2015 End: 11-18-2015 Smooth muscle Ab [Presence] in Serum Janet Valencia DO Work Phone: Start: 11-14-2015 End: 11-17-2015 Transferrin Janet Valencia DO Work Phone: Start: 10-16-2015 End: 10-16-2015 [...] 02-11-2015 End: 02-12-2015 *CBC with Differential Janet Gail Cantu O Work Phone: Start: 02-11-2015 End: 02-12-2015 *CMP Complete Metabolic Panel Janet Valencia DO Work Phone: Start: 02-11-2015 End: 02-12-2015 Urinalysis complete panel - Urine Janet Valencia DO Work Phone: Start: 02-05-2015 End: 02-05-2015 Documentation of current medications Cristobal Olmos Work Phone: Start: 02-05-2015 End: 08-17-2016 Follow Up Appt 6 months Cristobal Olmos Work Phone: Start: 11-07-2014 End: 11-08-2014 Documentation of current medications Cristobal Olmos [employer] Phone: Start: 11-07-2014 End: 08-17-2016 Follow Up Appt 3 months Cristobal Olmos Work Phone: Start: 10-16-2014 End: 10-16-2014 *Hepatic Function Panel Jani Mckeon MD Start: 10-16-2014 End: 10-16-2014 Lipid panel [AGGREGATE] Jani Mckeon MD Start: 07-08-2014 End: 08-17-2016 Lipid panel [AGGREGATE] Cristobal Oharaur Work Phone: Start: 06-19-2014 End: 08-17-2016 Follow Up Appt 3 months Cristobal Olmos Work Phone: Start: 06-19-2014 End: 08-17-2016 Pulmonary Fuction Test - complete Cristobal Olmos Work Phone: Start: 06-17-2014 Screening for malign ant neoplasm of breast Screening for breast cancer Soraya Milton Start: 06-11-2014 End: 06-12-2014 *CBC with Differential Janet Cantu O Work Phone: Start: 06-11-2014 End: 06-12-2014 *CMP Complete Metabolic Panel Janet Valencia DO Work Phone: Start: 05-30-2014 End: 05-30-2014 Follow Up Appt Other Chiquis Palacios PA-C Work Phone: Start: 05-20-2014 End: 05-20-2014 Urinalysis Soraya Milton Start: 05-20-2014 End: 05-21-2014 Follow-up visit Janet Valencia DO Work Phone: Start: 05-20-2014 End: 05-23-2014 Urine culture, bacteria Janet Valencia DO Work Phone: Start: 04-18-2014 End: 04-24-2014 *BMP [...] 06-06-2006 Colonoscopy Génesis Carlton MD Work Phone: Urine culture Viral antigen assay Dr. Janet Valencia Work Phone: Plan of Treatment Date Care Activity Detail Author Start: 2031 RSV Vaccine (1 - 1-dose 75+ series) RSV Vaccine (1 - 1-dose 75+ series) [facility] Start: 03-07-2029 Urine microalbumin profile [facility] Start: 12-27-2027 Diabetes Screening Diabetes Screening [facility] Start: 04-22-2026 Diabetes Screening Diabetes Screening [facility] Start: 12-26-2025 End: 12-26-2025 Patient encounter procedure 12/26/2025 10:30 AM EDT Office Visit Rheumatology [address] [place] [address] Isabel Ceron PA-C [address] [place] [address] 1 year follow up Rheumatology Comment on above: 1 year follow up Start: 05-22-2025 ambulatory Facility:[facility] Start: 04-08-2025 DIABETES SCREEN DIABETES SCREEN [facility] Start: 03-20-2025 Erythropoietin (EPO) [Units/volume] in Serum or Plasma [facility] Start: 03-20-2025 Haptoglobin [Mass/volume] in Serum or Plasma [facility] Start: 03-20-2025 Laboratory test [facility] Start: 03-20-2025 [facility] Start: 03-07-2025 Colonoscopy flx dx w/collj spec when pfrmd DIAGNOSTIC COLONOSCOPY [facility] Start: 03-07-2025 Patient discharge [facility] Start: 01-25-2025 Erythropoietin (EPO) [Units/volume] in Serum or Plasma [facility] Start: 01-25-2025 Laboratory test [facility] Start: 01-23-2025 Patient referral [facility] [employer] Work Phone: Start: 01-23-2025 CBC W Auto Differential panel - Blood [facility] Start: 01-23-2025 Erythrocyte sedimentation rate [facility] Start: 01-23-2025 Reticulocyte count [facility] Start: 01-23-2025 C reactive protein [Mass/volume] in Serum or Plasma [facility] Start: 01-23-2025 Cobalamin (Vitamin B12) [Mass/volume] in Serum or Plasma [facility] Start: 01-23-2025 Comprehensive metabolic 2000 panel - Serum or Plasma [facility] Start: 01-23-2025 Ferritin [Mass/volume] in Serum or Plasma [facility] Start: 01-23-2025 Haptoglobin [Mass/volume] in Serum or Plasma [facility] Start: 01-23-2025 Iron and Iron binding capacity panel - Serum or Plasma [facility] Start: 01-23-2025 Laboratory test [facility] Start: 01-23-2025 Lactate dehydrogenase measurement [facility] Start: 01-23-2025 Magnesium measurement [facility] Start: 01-23-2025 Serum inorganic phosphate measurement [facility] Start: 01-23-2025 Urate [Mass/volume] in Serum or Plasma [facility] Start: 01-23-2025 [facility] Start: 12-26-2024 End: 03-27-2025 25-hydroxyvitamin D3 [Mass/volume] in Serum or Plasma [facility] Comment on above: Expected: 12/26/2024, Expires: Start: 12-26-2024 End: 03-27-2025 C reactive protein [Mass/volume] in Serum or Plasma [facility] Work Phone: Comment on above: Expected: 12/26/2024, Expires: Start: 12-26-2024 End: 03-27-2025 Rheumatoid factor [Units/volume] in Serum or Plasma [facility] Comment on above: Expected: 12/26/2024, Expires: Start: 12-26-2024 End: 12-26-2024 Patient encounter procedure 12/26/2024 11:00 AM EDT Office Visit Rheumatology [address] [place], [place] [id number] Isabel Ceron PA-C [address] [place] [address] Sjogren's syndrome[M35.00], Dry mouth [R68.2], osteoarthritis of left knee [M17.12] Rheumatology Comment on above: Sjogren's syndrome[M35.00], Dry mouth [R 68.2], osteoarthritis of left knee [M17.12] Start: 11-21-2024 Colonoscopy flx dx w/collj spec when pfrmd DIAGNOSTIC COLONOSCOPY [facility] Start: 11-21-2024 Egd transoral biopsy single/multiple EGD BIOPSY SINGLE/MULTIPLE [facility] Start: 11-21-2024 Patient discharge [facility] Start: 11-18-2024 Lipid panel Lipid Screening [facility] Start: 11-18-2024 LIPID SCREEN LIPID SCREEN [facility] Start: 11-07-2024 Covid-19 Vaccine ( season) Covid-19 Vaccine ( season) [facility] Start: 09-29-2024 [facility] Start: 09-28-2024 End: 09-28-2024 [facility] Start: 09-19-2024 Patient referral [facility] Work Phone: Start: 08-30-2024 Colsc flx w/rmvl of tumor polyp lesion snare tq COLONOSCOPY W/LESION REMOVAL [facility] Start: 08-30-2024 Patient discharge [facility] Start: 08-29-2024 Advance Directive Discussion Advance Directive Discussion [facility] Start: 06-14-2024 Shingrix Vaccine (2 of 2) Shingrix Vaccine (2 of 2) [facility] Start: 04-29-2024 Covid-19 Vaccine () Covid-19 Vaccine () [facility] Start: 04-29-2024 Influenza vaccination Influenza Vaccine (#1) [facility] Start: 11-29-2023 Patient discharge [facility] Start: 11-22-2023 DIABETES SCREEN DIABETES SCREEN [facility] Start: 08-18-2023 Echo tthrc r-t 2d w/wom-mode compl spec&colr d TTE W/DOPPLER COMPLETE [facility] Start: 07-18-2023 Blood chemistry [facility] Start: 04-29-2023 Influenza vaccination INFLUENZA (#1) [facility] Start: 04-28-2023 Dual energy X-ray absorptiometry Dexa Bone Density Study [facility] Start: 04-28-2023 DXA Bone [Mass/Area] Bone density [facility] Start: 04-23-2023 BP CONTROLLED (<130/80) BP CONTROLLED (<130/80) [facility] Start: 04-08-2023 End: 06-08-2023 25-hydroxyvitamin D3 [Mass/volume] in Serum or Plasma VITAMIN D 25 HYDROXY Lab Routine Sjogren's syndrome, with unspecified organ involvement (HCC) Dry mouth Primary osteoarthritis of left knee Expected: 04/08/2023 (Approximate), Expires: 06/08/2023 [facility] Work Phone: Comment on above: Expected: 04/08/2023 (Approximate), Expi res: 06/08/2023 Start: 04-08-2023 End: 06-08-2023 C reactive protein [Mass/volume] in Serum or Plasma C-REACTIVE PROTEIN (CRP) Lab Routine Sjogren's syndrome, with unspecified organ involvement (HCC) Dry mouth Primary osteoarthritis of left knee Expected: 04/08/2023 (Approximate), Expires: 06/08/2023 [facility] Work Phone: Comment on above: Expected: 04/08/2023 (Approximate), Expi res: 06/08/2023 Start: 04-08-2023 End: 06-08-2023 CBC W Auto Differential panel - Blood CBC + DIFF Lab Routine Sjogren's syndrome, with unspecified organ involvement (HCC) Dry mouth Primary osteoarthritis of left knee Expected: 04/08/2023 (Approximate), Expires: 06/08/2023 [facility] Work Phone: Comment on above: Expected: 04/08/2023 (Approximate), Expi res: 06/08/2023 Start: 04-08-2023 End: 06-08-2023 Comprehensive metabolic 2000 panel - Serum or Plasma COMP METABOLIC PANEL Lab Routine Sjogren's syndrome, with unspecified organ involvement (HCC) Dry mouth Primary osteoarthritis of left knee Expected: 04/08/2023 (Approximate), Expires: 06/08/2023 [facility] Work Phone: Comment on above: Expected: 04/08/2023 (Approximate), Expi res: 06/08/2023 Start: 04-08-2023 End: 06-08-2023 Erythrocyte sedimentation rate SED RATE WESTERGREN Lab Routine Sjogren's syndrome, with unspecified organ involvement (HCC) Dry mouth Primary osteoarthritis of left knee Expected: 04/08/2023 (Approximate), Expires: 06/08/2023 [facility] Work Phone: Comment on above: Expected: 04/08/2023 (Approximate), Expi res: 06/08/2023 Start: 04-08-2023 End: 06-08-2023 Rheumatoid factor [Units/volume] in Serum or Plasma RHEUMATOID FACTOR BL Lab Routine Sjogren's syndrome, with unspecified organ involvement (HCC) Dry mouth Primary osteoarthritis of left knee Expected: 04/08/2023 (Approximate), Expires: 06/08/2023 [facility] Work Phone: Comment on above: Expected: 04/08/2023 (Approximate), Expi res: 06/08/2023 Start: 08-29-2022 ADVANCE DIRECTIVE DISCUSSION ADVANCE DIRECTIVE DISCUSSION [facility] Start: 08-29-2022 DEPRESSION ASSESSMENT DEPRESSION ASSESSMENT [facility] Start: 04-29-2022 Influenza vaccination [facility] Start: 04-05-2022 End: 06-05-2022 25-hydroxyvitamin D3 [Mass/volume] in Serum or Plasma VITAMIN D 25 HYDROXY Lab Routine Sjogren's syndrome, with unspecified organ involvement (HCC) Expected: 04/05/2022 (Approximate), Expires: 06/05/2022 [facility] Work Phone: Comment on above: Expected: 04/05/2022 (Approximate), Expi res: 06/05/2022 Start: 04-05-2022 End: 06-05-2022 C reactive protein [Mass/volume] in Serum or Plasma C-REACTIVE PROTEIN (CRP) Lab Routine Sjogren's syndrome, with unspecified organ involvement (HCC) Expected: 04/05/2022 (Approximate), Expires: 06/05/2022 [facility] Work Phone: Comment on above: Expected: 04/05/2022 (Approximate), Expi res: 06/05/2022 Start: 04-05-2022 End: 06-05-2022 CBC W Auto Differential panel - Blood CBC + DIFF Lab Routine Sjogren's syndrome, with unspecified organ involvement (HCC) Expected: 04/05/2022 (Approximate), Expires: 06/05/2022 [facility] Work Phone: Comment on above: Expected: 04/05/2022 (Approximate), Expi res: 06/05/2022 Start: 04-05-2022 End: 06-05-2022 Comprehensive metabolic 2000 panel - Serum or Plasma COMP METABOLIC PANEL Lab Routine Sjogren's syndrome, with unspecified organ involvement (HCC) Expected: 04/05/2022 (Approximate), Expires: 06/05/2022 [facility] Work Phone: Comment on above: Expected: 04/05/2022 (Approximate), Expi res: 06/05/2022 Start: 04-05-2022 End: 06-05-2022 Erythrocyte sedimentation rate SED RATE WESTERGREN Lab Routine Sjogren's syndrome, with unspecified organ involvement (HCC) Expected: 04/05/2022 (Approximate), Expires: 06/05/2022 [facility] Work Phone: Comment on above: Expected: 04/05/2022 (Approximate), Expi res: 06/05/2022 Start: 04-05-2022 End: 06-05-2022 MONOCLONAL PROTEIN, SERUM (BLOOD) MONOCLONAL PROTEIN, SERUM (BLOOD) Lab Routine Sjogren's syndrome, with unspecified organ involvement (HCC) Expected: 04/05/2022 (Approximate), Expires: 06/05/2022 [facility] Work Phone: Comment on above: Expected: 04/05/2022 (Approximate), Expi res: 06/05/2022 Start: 04-05-2022 End: 06-05-2022 PROTEIN ELECTROPHORESIS SERUM W/INTERP PROTEIN ELECTROPHORESIS SERUM W/INTERP Lab Routine Sjogren's syndrome, with unspecified organ involvement (HCC) Expected: 04/05/2022 (Approximate), Expires: 06/05/2022 [facility] Work Phone: Comment on above: Expected: 04/05/2022 (Approximate), Expi res: 06/05/2022 Start: 04-05-2022 End: 06-05-2022 Rheumatoid factor [Units/volume] in Serum or Plasma RHEUMATOID FACTOR BL Lab Routine Sjogren's syndrome, with unspecified organ involvement (HCC) Expected: 04/05/2022 (Approximate), Expires: 06/05/2022 [facility] Work Phone: Comment on above: Expected: 04/05/2022 (Approximate), Expi res: 06/05/2022 Start: 03-18-2022 COVID-19 VACCINE (5 - Moderna series) COVID-19 VACCINE (5 - Moderna series) [facility] Start: 01-04-2022 Anes transurethral w/urethrocystoscopy nos ANESTH BLADDER SURGERY [facility] Work Phone: Start: 01-04-2022 Ndsc njx implt matrl urt&/bldr nck ENDOSCOPIC INJECTION/IMPLANT [facility] Work Phone: Start: 01-04-2022 [facility] Work Phone: Start: 01-04-2022 Patient discharge [facility] Work Phone: Start: 08-29-2021 ADVANCE DIRECTIVE DISCUSSION ADVANCE DIRECTIVE DISCUSSION [facility] Start: 2021 BONE DENSITY BONE DENSITY [facility] Start: 2021 PNEUMOCOCCAL: 65+ (1 - PCV) PNEUMOCOCCAL: 65+ (1 - PCV) [facility] Start: 2021 PNEUMOCOCCAL: 65+ (2 - PCV) PNEUMOCOCCAL: 65+ (2 - PCV) [facility] Start: 2021 PNEUMOVAX AGE 65 AND OVER WITH 5YR LOOKBACK (#1) PNEUMOVAX AGE 65 AND OVER WITH 5YR LOOKBACK (#1) [facility] Start: 2021 Screening for osteoporosis Bone Density Screening [facility] Start: 05-18-2020 Adult depression screening assessment DEPRESSION SCREENING [facility] Start: 08-18-2017 End: 08-18-2017 Appointment Appointment [facility] Work Phone: Start: 02-17-2017 End: 02-17-2017 Appointment Appointment [facility] Work Phone: Start: 02-17-2017 End: 02-17-2017 [facility] Work Phone: Start: 02-17-2017 End: 02-17-2017 Follow Up Appt 6 months Follow Up Appt 6 months [facility] Phone: Start: 08-26-2016 End: 05-27-2016 KAITLYNN CALDERÓN [facility] Work Phone: Start: 08-19-2016 End: 08-19-2016 [facility] Work Phone: Start: 08-19-2016 End: 08-19-2016 Follow Up Appt 6 months Follow Up Appt 6 months [facility] Work Phone: Start: 07-13-2016 End: 07-13-2016 Follow up Appt 3x/week Follow up Appt 3x/week [facility] Phone: Start: 07-08-2016 End: 07-08-2016 Follow up Appt 3x/week Follow up Appt 3x/week [facility] Work Phone: Start: 07-05-2016 End: 07-05-2016 Follow up Appt 3x/week Follow up Appt 3x/week [facility] Phone: Start: 06-06-2016 Colonoscopy COLONOSCOPY [facility] Start: 06-06-2016 COLORECTAL CANCER SCREENING COLORECTAL CANCER SCREENING [facility] Start: 06-06-2016 Screening for malignant neoplasm of colon [facility] Start: 05-31-2016 End: 05-31-2016 Diagnostic colonoscopy Colonoscopy [facility] Phone: Start: 05-31-2016 End: 07-09-2016 Primary Care Physician Primary Care Physician Janet Valencia DO, [facility], [address] [place] [address], [id number] [facility] Phone: Start: 05-31-2016 End: 05-31-2016 Upper GI endoscopy, biopsy Upper gastrointestinal endoscopy; with biopsy [facility] Phone: Start: 2016 RSV Vaccine (1 - Risk 60-74 years 1-dose series) RSV Vaccine (1 - Risk 60-74 years 1-dose series) [facility] Start: 03-02-2016 End: 03-02-2016 *BMP *BMP [facility] Phone: Start: 02-12-2016 End: 08-17-2016 Follow Up Appt 3 months Follow Up Appt 3 months [facility] Phone: Start: 12-19-2015 End: 12-18-2015 *Hepatic Function Panel *Hepatic Function Panel [facility] Work Phone: Start: 12-18-2015 End: 12-19-2015 Gastroenterology Referral Gastroenterology Referral Tapan Schwab MD, [facility], [address] [place] [address], [place], [address] [facility] Work Phone: Start: 12-10-2015 End: 12-10-2015 *CMP Complete Metabolic Panel *CMP Complete Metabolic Panel [facility] Work Phone: Start: 12-10-2015 End: 12-18-2015 Gamma glutamyl transferase *GGTP [facility] Work Phone: Start: 11-28-2015 End: 11-28-2015 Ct abdomen w/dye CT Abdomen with Contrast [facility] Work Phone: Start: 11-19-2015 End: 11-19-2015 X-ray exam of hand X-Ray, Hand [facility] Work Phone: Start: 11-17-2015 End: 11-18-2015 X-ray exam of ankle X-Ray, Ankle [facility] Work Phone: Start: 11-14-2015 End: 11-21-2015 *FLAKITA *FLAKITA [facility] Work Phone: Start: 11-14-2015 End: 11-14-2015 *CBC with Differential *CBC with Differential [facility] Work Phone: Start: 11-14-2015 End: 11-16-2015 *CMP Complete Metabolic Panel *CMP Complete Metabolic Panel [facility] Work Phone: Start: 11-14-2015 End: 11-14-2015 *HCVQSP Hepatitis C Quant, DNA Probe, Amplified *HCVQSP Hepatitis C Quant, DNA Probe, Amplified [facility] Work Phone: Start: 11-14-2015 End: 11-17-2015 Alpha 1 antitrypsin [Mass/volume] in Serum or Plasma *AA Fwlxn-[id number]-Ppnusotgobp-Tota l [facility] Phone: Start: 11-14-2015 End: 11-14-2015 C reactive protein (hsCRP) *CRP - C-Reative Protein [facility] Phone: Start: 11-14-2015 End: 11-17-2015 Ceruloplasmin [Mass/volume] in Serum or Plasma *CER - Ceruloplasmin [facility] Phone: Start: 11-14-2015 End: 11-14-2015 Coagulation factor induced.INR assay in platelet poor plasma *PT/INR [facility] Phone: Start: 11-14-2015 End: 11-14-2015 Erythrocyte sedimentation rate *Sedimentation Rate (ESR) [facility] Phone: Start: 11-14-2015 End: 11-16-2015 Ferritin *Ferritin [facility] Phone: Start: 11-14-2015 End: 11-17-2015 Hepatitis A virus Ab [Presence] in Serum *HEAT Hepatitis A Antibdy - IGG/IGM [facility] Phone: Start: 11-14-2015 End: 11-17-2015 Hepatitis B virus core Ab [Presence] in Serum *HEBCT Hepatitis B Core Antbd-IGG/IGM [facility] Phone: Start: 11-14-2015 End: 11-18-2015 Mitochondria Ab [Presence] in Serum *AMA Anti Mitochondrial AB 6650 [facility] Phone: Start: 11-14-2015 End: 11-18-2015 Smooth muscle Ab [Presence] in Serum *ASMA - ASM (ANTI Smooth Muscle Antibody) [facility] Phone: Start: 11-14-2015 End: 11-17-2015 Transferrin *TRF Transferrin [facility] Phone: Start: 10-17-2015 End: 10-16-2015 *Hepatic Function Panel *Hepatic Function Panel [facility] Work Phone: Start: 10-17-2015 End: 10-16-2015 Lipid panel [AGGREGATE] *Lipid Profile CC PCP [facility] Work Phone: Start: 08-05-2015 End: 08-17-2016 [facility] Work Phone: Start: 08-05-2015 End: 08-17-2016 Follow Up Appt 6 months Follow Up Appt 6 months [facility] Work Phone: Start: 04-16-2015 End: 04-15-2015 *Hepatic Function Panel *Hepatic Function Panel [facility] Work Phone: Start: 04-16-2015 End: 04-15-2015 Lipid panel [AGGREGATE] *Lipid Profile CC PCP [facility] Work Phone: Start: 04-11-2015 End: 04-11-2015 Ct abdomen&pelvis w/contrast CT Abdomen/pelvis with contrast [facility] Work Phone: Start: 02-11-2015 End: 02-12-2015 *CBC with Differential *CBC with Differential [facility] Work Phone: Start: 02-11-2015 End: 02-12-2015 *CMP Complete Metabolic Panel *CMP Complete Metabolic Panel [facility] Work Phone: Start: 02-11-2015 End: 02-12-2015 Urinalysis complete panel - Urine *UAC- Urinalysis, Complete w/ Micro [facility] Work Phone: Start: 02-05-2015 End: 08-17-2016 Follow Up Appt 6 months Follow Up Appt 6 months [facility] Work Phone: Start: 11-07-2014 End: 08-17-2016 Follow Up Appt 3 months Follow Up Appt 3 months [facility] Work Phone: Start: 10-16-2014 End: 10-16-2014 *Hepatic Function Panel *Hepatic Function Panel [facility] Phone: Start: 10-16-2014 End: 10-16-2014 Lipid panel [AGGREGATE] *Lipid Profile CC PCP [facility] Phone: Start: 07-08-2014 End: 08-17-2016 Chest x-ray X-Ray, Chest, PA & Lateral [facility] Phone: Start: 06-19-2014 End: 08-17-2016 Follow Up Appt 3 months Follow Up Appt 3 months [facility] Phone: Start: 06-19-2014 End: 08-17-2016 Pulmonary Fuction Test - complete Pulmonary Fuction Test - complete [facility] Phone: Start: 06-12-2014 End: 06-12-2014 Ct thorax w/dye CT Chest with Contrast [facility] Phone: Start: 06-11-2014 End: 06-12-2014 *CBC with Differential *CBC with Differential [facility] Phone: Start: 06-11-2014 End: 06-12-2014 *CMP Complete Metabolic Panel *CMP Complete Metabolic Panel [facility] Phone: Start: 06-11-2014 End: 06-11-2014 Chest x-ray X-Ray, Chest, PA & Lateral [facility] Phone: Start: 06-04-2014 End: 06-04-2014 Airway inhalation treatment Aerosol Treatment (first) [facility] Phone: Start: 06-04-2014 End: 06-04-2014 Breathing capacity test Peak Flow [facility] Phone: Start: 06-04-2014 End: 06-04-2014 Chest x-ray X-Ray, Chest, PA & Lateral [facility] Phone: Start: 06-04-2014 End: 06-04-2014 Follow up Appt 1 week Follow up Appt 1 week [facility] Phone: Start: 05-30-2014 End: 05-30-2014 Follow Up Appt Other Follow Up Appt Other [facility] Phone: Start: 05-29-2014 Mammography MAMMOGRAM [facility] Start: 05-29-2014 Screening for malignant neoplasm of breast Mammogram Screening [facility] Start: 05-29-2014 End: 06-24-2015 Urology Referral Urology Referral [facility] Phone: Start: 05-21-2014 End: 05-21-2014 Ct abdomen w/o dye CT Abdomen [facility] Phone: Start: 05-20-2014 End: 05-20-2014 Contrst x-ray, urinary tract X-Ray, KUB [facility] Phone: Start: 05-20-2014 End: 05-21-2014 Follow-up visit Follow Up as needed [facility] Phone: Start: 05-20-2014 End: 05-23-2014 Urine culture, bacteria *CUUR - Urine FARIDEH Culture - Dane COL Count [facility] Phone: Start: 05-17-2014 Pneumococcal Vaccine: 50+ (2 of 2 - PCV) Pneumococcal Vaccine: 50+ (2 of 2 - PCV) [facility] Start: 05-06-2014 End: 05-06-2014 Ct abdomen w/o dye CT Abdomen [facility] Phone: Start: 05-01-2014 End: 05-01-2014 Urinalysis nonauto w/o scope UA Dipstick (Office) [facility] Phone: Start: 05-01-2014 End: 05-01-2014 Urine culture, bacteria *CUUR - Culture, Urine ([place] Count) [facility] Phone: Start: 04-18-2014 End: 04-24-2014 *BMP *BMP [facility] Phone: Start: 04-18-2014 End: 04-24-2014 *Hepatic Function Panel *Hepatic Function Panel [facility] Work Phone: Start: 04-18-2014 End: 04-24-2014 CBC W Auto Differential panel - Blood *CBC without Diff [facility] Phone: Start: 04-18-2014 End: 05-21-2014 Chest x-ray X-Ray, Chest, PA & Lateral [facility] Phone: Start: 04-18-2014 End: 04-18-2014 Echocardiography Echocardiogram (complete) [facility] Phone: Start: 04-18-2014 End: 04-18-2014 Electrocardiogram, complete EKG (In office) [facility] Phone: Start: 04-18-2014 End: 04-18-2014 Follow Up Appt 6 weeks Follow Up Appt 6 weeks [facility] Phone: Start: 04-18-2014 End: 04-24-2014 Lipid panel [AGGREGATE] *Lipid Profile CC PCP [facility] Phone: Start: 04-18-2014 End: 04-18-2014 MMM MMM [facility] Phone: Start: 04-18-2014 End: 04-18-2014 Nuclear stress test -Lexiscan Nuclear stress test -Lexiscan [facility] Phone: Start: 04-18-2014 End: 04-23-2014 Thyroid stimulating hormone (TSH) *TSH [facility] Phone: Start: 04-18-2014 End: 04-24-2014 Thyroxine (T4) *T4 (Total) [facility] Phone: Start: 03-27-2014 End: 03-27-2014 Contrst x-ray, urinary tract X-Ray, KUB [facility] Work Phone: Start: 09-17-2013 End: 09-17-2013 *BMP *BMP [facility] Work Phone: Start: 09-17-2013 End: 04-25-2014 *CBC with Differential *CBC with Differential [facility] Work Phone: Start: 09-17-2013 End: 09-17-2013 C reactive protein (hsCRP) *CRP - C-Reative Protein [facility] Work Phone: Start: 09-17-2013 End: 09-17-2013 Erythrocyte sedimentation rate *Sedimentation Rate (ESR) [facility] Work Phone: Start: 2006 SHINGRIX VACCINE (1 of 2) SHINGRIX VACCINE (1 of 2) [facility] Start: 2001 COLOGUARD (FIT-DNA) COLOGUARD (FIT-DNA) [facility] Start: [address] COLONOGRAPHY [facility] Start: 2001 FECAL OCCULT BLOOD FECAL OCCULT BLOOD [facility] Start: 2001 Screening for malignant neoplasm of colon [facility] Start: 2001 SIGMOIDOSCOPY SIGMOIDOSCOPY [facility] Start: 1974 ANNUAL PCP TEAM CHRONIC DISEASE VISIT ANNUAL PCP TEAM CHRONIC DISEASE VISIT [facility] Start: 1974 Anxiety Screening Anxiety Screening [facility] Start: 1974 BP CONTROLLED (<130/80) BP CONTROLLED (<130/80) [facility] Start: 1974 Depression Screening Depression Screening [facility] Start: 1974 HIV SCREENING HIV SCREENING [facility] Start: 1961 COVID-19 VACCINE (1) COVID-19 VACCINE (1) [facility] Start: 1956 COVID-19 VACCINE (#1) COVID-19 VACCINE (#1) [facility] Alanine aminotransfe rase [Enzymatic activity/volume] in Serum or Plasma [facility] Albumin [Mass/volume ] in Serum or Plasma [facility] Alkaline phosphatase [Enzymatic activity/volume] in Serum or Plasma [facility] Anion gap in Serum o r Plasma [facility] Anion gap measurement [facility] Bilirubin measuremen t, urine [facility] Bilirubin, total measurement [facility] BUN/Creatinine ratio [facility] BUN/Creatinine ratio [facility] Calcium [Mass/volume ] in Serum or Plasma [facility] Calcium [Mass/volume ] in Serum or Plasma [facility] Carbon dioxide, tota l [Moles/volume] in Central venous blood [facility] Carbon dioxide, tota l [Moles/volume] in Serum or Plasma [facility] CBC W Auto Different ial panel - Blood [facility] Chloride [Moles/volu me] in Serum or Plasma [facility] Comprehensive metabo lic 2000 panel - Serum or Plasma [facility] Creatinine [Mass/vol ume] in Serum or Plasma [facility] Creatinine [Moles/vo lume] in Serum or Plasma [facility] CTA Heart and [place] ry arteries W contrast IV [facility] Erythropoietin (EPO) [Units/volume] in Serum or Plasma [facility] Exercise tolerance test [facility] Ferritin [Mass/volum e] in Serum or Plasma [facility] Folate [Moles/volume ] in Serum or Plasma [facility] Folate [Moles/volume ] in Serum or Plasma [facility] Folate [Moles/volume ] in Serum or Plasma [facility] Gliadin peptide IgA Ab [Units/volume] in Serum [facility] Gliadin peptide IgA Ab [Units/volume] in Serum [facility] Gliadin peptide IgA Ab [Units/volume] in Serum [facility] Gliadin peptide IgG Ab [Units/volume] in Serum [facility] Gliadin peptide IgG Ab [Units/volume] in Serum [facility] Gliadin peptide IgG Ab [Units/volume] in Serum [facility] Glucose [Mass/volume ] in Serum or Plasma [facility] Glucose [Mass/volume ] in Serum or Plasma [facility] Hemoglobin [Presence ] in Urine [facility] Iron [Mass/mass] in Unspecified specimen [facility] Iron and Iron bindin g capacity panel - Serum or Plasma [facility] Iron saturation [Mas s Fraction] in Serum or Plasma [facility] Lactate dehydrogenas e measurement [facility] Magnesium measurement [facility] Measurement of immunoglobulin A in serum specimen [facility] Measurement of immunoglobulin A in serum specimen [facility] Measurement of immunoglobulin A in serum specimen [facility] Measurement of keton es in urine using dipstick [facility] Measurement of renal function [facility] Measurement of renal function [facility] Measurement of respiratory function [facility] MR Lower Extremity Joint [facility] NM Heart Views W str ess and W radionuclide IV [facility] Patient Education [facility] Work Phone: Patient referral [facility] Work Phone: pH of Urine [facility] Potassium [Moles/vol ume] in Serum or Plasma [facility] Potassium measurement [facility] Serum chloride measurement [facility] Serum inorganic phos phate measurement [facility] Sodium [Moles/volume ] in Serum or Plasma [facility] Sodium measurement [facility] Specific gravity of Urine [facility] Tissue transglutamin ase IgA Ab [Units/volume] in Serum [facility] Tissue transglutamin ase IgA Ab [Units/volume] in Serum [facility] Tissue transglutamin ase IgA Ab [Units/volume] in Serum [facility] Total iron binding capacity measurement [facility] Total protein measurement [facility] Ultrasound elastography [facility] Urea nitrogen [Mass/volume] in Serum or Plasma [facility] Urea nitrogen [Mass/volume] in Serum or Plasma [facility] Urine dipstick for glucose [facility] Urine dipstick for leukocyte esterase [facility] Urine dipstick for nitrite [facility] Urine dipstick for protein [facility] Urine examination [facility] Urobilinogen [Presen ce] in Urine [facility] Vitamin B12 measurement [facility] Immunizations Immunization Date Immunization Notes Care Provider Fa jakob 07-05-2021 Covid (Moderna) [facility] 03-07-2019 tetanus toxoid, redu martin diphtheria toxoid, and acellular pertussis vaccine, adsorbed Génesis Carlton MD Work Phone: [facility] 05-25-2017 influenza, injectabl e, quadrivalent, preservative free Dr. Janet Valencia Work Phone: [facility] 05-25-2017 influenza, seasonal, injectable [facility] 05-25-2017 influenza, seasonal, injectable, preservative free Génesis Carlton MD Work Phone: [facility] 05-25-2017 influenza virus vacc ine, unspecified formulation Génesis Carlton MD Work Phone: [facility] 05-27-2016 influenza, injectabl e, quadrivalent, preservative free Dr. Janet Valencia Work Phone: [facility] 05-27-2016 influenza, seasonal, injectable [facility] 05-27-2016 influenza, seasonal, injectable, preservative free Génesis Carlton MD Work Phone: [facility] 06-03-2015 influenza, injectabl e, quadrivalent, preservative free Dr. Janet Valencia Work Phone: [facility] 06-03-2015 influenza, seasonal, injectable [facility] 06-03-2015 influenza, seasonal, injectable, preservative free Génesis Carlton MD Work Phone: [facility] 08-15-2014 influenza, injectabl e, quadrivalent, preservative free Dr. Janet Valencia Work Phone: [facility] 08-15-2014 influenza, seasonal, injectable [facility] 08-15-2014 influenza, seasonal, injectable, preservative free Génesis Carlton MD Work Phone: [facility] 07-29-2014 influenza, seasonal, injectable, preservative free Génesis Carlton MD Work Phone: [facility] 09-06-2013 Influenza virus vaccine [facility] 09-06-2013 influenza, seasonal, injectable Génesis Carlton MD Work Phone: [facility] 09-06-2013 influenza, seasonal, injectable, preservative free Génesis Carlton MD Work Phone: [facility] 05-17-2013 pneumococcal polysaccharide vaccine, 23 valent Génesis Carlton MD Work Phone: [facility] 04-30-2009 influenza virus vacc ine, unspecified formulation Génesis Carlton MD Work Phone: [facility] Work Phone: 01-29-2008 tetanus toxoid, redu martin diphtheria toxoid, and acellular pertussis vaccine, adsorbed Génesis Carlton MD Work Phone: [facility] Work Phone: Payers Date Payer Category Payer Self-pay [id number] 2013 Unknown [id number] 2013 Unknown [id number] 2008 Medicaid [facility] MEDICAID [id number] 2008-Present [phone] [address] [place] [address] Medicaid [id number] 2008 Medicaid [id number] Unknown [id number] Unknown [id number] Unknown [id number] Unknown [id number] Unknown [id number] Unknown [id number] Unknown [id number] Unknown [id number] Unknown [id number] Unknown [id number] Unknown [id number] 2.16.840.1.836181.3.579.2.462 Unknown [id number] 2.16.840.1.076167.3.579.2.462 Unknown [id number] 2.840.1.152449.3.579.2.462 Unknown [id number] 2.840.1.143116.3.579.2.462 Unknown [id number] 2.840.1.224687.3.579.2.462 Unknown [id number] 2.840.1.938341.3.579.2.462 Unknown [id number] 2..840.1.031990.3.579.2.462 Unknown [id number] 2.840.1.941443.3.579.2.462 Unknown [id number] 2.840.1.181899.3.579.2.462 Unknown [id number] 2.840.1.744517.3.579.2.462 Unknown [id number] 2..840.1.100240.3.579.2.462 Unknown [id number] 2.16.840.1.327321.3.579.2.462 Unknown [id number] 2.16.840.1.514171.3.579.2.462 Unknown [id number] 2.16.840.1.357749.3.579.2.462 Unknown [id number] 2.840.1.316455.3.579.2.462 Unknown [id number] 2.16.840.1.994504.3.579.2.462 Unknown [id number] 2.16840.1.493614.3.579.2.462 Unknown [id number] 2.16840.1.664910.3.579.2.462 Unknown [id number] 2.840.1.161776.3.579.2.462 Unknown [id number] 2.840.1.407632.3.579.2.462 Unknown [id number] 2.840.1.009116.3.579.2.462 Unknown [id number] 2.840.1.295942.3.579.2.462 Unknown [id number] 2.840.1.481543.3.579.2.462 Unknown [id number] 2.840.1.414698.3.579.2.462 Unknown [id number] 2.840.1.060370.3.579.2.462 Unknown [id number] 2.840.1.852896.3.579.2.462 Unknown [id number] 2.840.1.038996.3.579.2.462 Unknown [id number] 2.840.1.434978.3.579.2.462 Unknown [id number] 2.840.1.098428.3.579.2.462 Unknown [id number] 2.840.1.316456.3.579.2.462 Unknown [id number] 2.840.1.971298.3.579.2.462 Unknown [id number] 2.840.1.521803.3.579.2.462 Unknown [id number] 2.840.1.126473.3.579.2.462 Unknown [id number] 2.840.1.091531.3.579.2.462 Unknown [id number] 2.16.840.1.558377.3.579.2.462 Unknown [id number] 2.16.840.1.446949.3.579.2.462 Unknown [id number] 2.16.840.1.020721.3.579.2.462 Social History Date Type Detail Facility Start: 02-04-2009 End: 03-27-2025 Tobacco smoking status NHIS Ex-smoker [facility] Start: 03-29-1968 End: 03-29-1983 History of tobacco use Current smoker [facility] Start: 03-29-1968 End: 03-29-1983 History of tobacco use Cigarette Smoker [facility] Start: 11-21-2020 End: 12-26-2024 Alcohol intake Current non-drinker of alcohol (finding) [facility] Start: 1955 Sex Assigned At Not on file [facility] Start: 08-05-2021 End: 12-19-2023 Tobacco smoking status [facility] Unknown if ever smoked [facility] Start: 1955 Sex Assigned At Female [facility] Start: 02-04-2009 End: 04-22-2023 Cigarettes smoked current (pack per day) - Reported 4 [facility] Start: 02-04-2009 End: 04-23-2022 Tobacco use and exposure Smokeless tobacco non-user [facility] Work Phone: Start: 04-13-2022 End: 04-23-2022 Exposure to SARS-CoV-2 (event) Not sure [facility] Start: 04-23-2022 End: 04-22-2023 Tobacco use panel [facility] Adult Depression Screening Assessment 2 [facility] Start: 11-08-2024 End: 11-21-2024 Sex Female (finding) [facility] NEGATED: Highlighted row Not [facility] Medical Equipment Procedure Code Equipment Code Equipment Original Text Equipment Identifier Dates Cystoscopy, with botulinum toxin injection BULKAMID,2ML FDA Start: 01-04-2022 Cystoscopy, with botulinum toxin injection BULKAMID,2ML FDA Start: 01-04-2022 Cystoscopy, with botulinum toxin injection BULKAMID,2ML FDA Start: 01-04-2022 Cystoscopy, with botulinum toxin injection BULKAMID,2ML FDA Start: 01-04-2022 Cystoscopy, with botulinum toxin injection BULKAMID,2ML FDA Start: 01-04-2022 Cystoscopy, with botulinum toxin injection BULKAMID,2ML FDA Start: 01-04-2022 Cystoscopy, with botulinum toxin injection BULKAMID,2ML FDA Start: 01-04-2022 Cystoscopy, with botulinum toxin injection BULKAMID,2ML FDA Start: 01-04-2022 Cystoscopy, with botulinum toxin injection BULKAMID,2ML FDA Start: 01-04-2022 Cystoscopy, with botulinum toxin injection BULKAMID,2ML FDA Start: 01-04-2022 Cystoscopy, with botulinum toxin injection BULKAMID,2ML FDA Start: 01-04-2022 Cystoscopy, with botulinum toxin injection BULKAMID,2ML FDA Start: 01-04-2022 Cystoscopy, with botulinum toxin injection BULKAMID,2ML FDA Start: 01-04-2022 Cystoscopy, with botulinum toxin injection BULKAMID,2ML FDA Start: 01-04-2022 Cystoscopy, with botulinum toxin injection BULKAMID,2ML FDA Start: 01-04-2022 Cystoscopy, with botulinum toxin injection BULKAMID,2ML FDA Start: 01-04-2022 Cystoscopy, with botulinum toxin injection BULKAMID,2ML FDA Start: 01-04-2022 Cystoscopy, with botulinum toxin injection BULKAMID,2ML FDA Start: 01-04-2022 Cystoscopy, with botulinum toxin injection BULKAMID,2ML FDA Start: 01-04-2022 Cystoscopy, with botulinum toxin injection BULKAMID,2ML FDA Start: 01-04-2022 Cystoscopy, with botulinum toxin injection BULKAMID,2ML FDA Start: 01-04-2022 Cystoscopy, with botulinum toxin injection BULKAMID,2ML FDA Start: 01-04-2022 Cystoscopy, with botulinum toxin injection BULKAMID,2ML FDA Start: 01-04-2022 Cystoscopy, with botulinum toxin injection BULKAMID,2ML FDA Start: 01-04-2022 Cystoscopy, with botulinum toxin injection BULKAMID,2ML FDA Start: 01-04-2022 Cystoscopy, with botulinum toxin injection BULKAMID,2ML FDA Start: 01-04-2022 Cystoscopy, with botulinum toxin injection BULKAMID,2ML FDA Start: 01-04-2022 Cystoscopy, with botulinum toxin injection BULKAMID,2ML FDA Start: 01-04-2022 Cystoscopy, with botulinum toxin injection BULKAMID,2ML FDA Start: 01-04-2022 Cystoscopy, with botulinum toxin injection BULKAMID,2ML FDA Start: 01-04-2022 Cystoscopy, with botulinum toxin injection BULKAMID,2ML FDA Start: 01-04-2022 Cystoscopy, with botulinum toxin injection BULKAMID,2ML FDA Start: 01-04-2022 Cystoscopy, with botulinum toxin injection BULKAMID,2ML FDA Start: 01-04-2022 Cystoscopy, with botulinum toxin injection BULKAMID,2ML FDA Start: 01-04-2022 Cystoscopy, with botulinum toxin injection BULKAMID,2ML FDA Start: 01-04-2022 Cystoscopy, with botulinum toxin injection BULKAMID,2ML FDA Start: 01-04-2022 Cystoscopy, with botulinum toxin injection BULKAMID,2ML FDA Start: 01-04-2022 Cystoscopy, with botulinum toxin injection BULKAMID,2ML FDA Start: 01-04-2022 Cystoscopy, with botulinum toxin injection BULKAMID,2ML FDA Start: 01-04-2022 Cystoscopy, with botulinum toxin injection BULKAMID,2ML FDA Start: 01-04-2022 Kdy-Sl-W-Kind Implant - [id number] Start: 12-15-2011 Comment on above: Description: digital compression screw 1.5mm x 30mm Wire Fix .045in 6in [facility] - [id number] Start: 05-19-2011 Comment on above: Description: K-wire LEAD KIT 28CM BLADDER STIM FDA Start: 07-25-2018 GENERATOR,BLADDE R STIM FDA Start: 08-08-2018 GENERATOR,BLADDE R STIM FDA Start: 08-10-2021 LEAD KIT 28CM BLADDER STIM FDA Start: 08-10-2021 LEAD KIT 33CM BLADDER STIM FDA Start: 08-10-2021 LEAD KIT 28CM BLADDER STIM FDA Start: 07-25-2018 GENERATOR,BLADDE R STIM FDA Start: 08-08-2018 GENERATOR,BLADDE R STIM FDA Start: 08-10-2021 LEAD KIT 28CM BLADDER STIM FDA Start: 08-10-2021 LEAD KIT 33CM BLADDER STIM FDA Start: 08-10-2021 LEAD KIT 28CM BLADDER STIM FDA Start: 07-25-2018 GENERATOR,BLADDE R STIM FDA Start: 08-08-2018 GENERATOR,BLADDE R STIM FDA Start: 08-10-2021 LEAD KIT 28CM BLADDER STIM FDA Start: 08-10-2021 LEAD KIT 33CM BLADDER STIM FDA Start: 08-10-2021 LEAD KIT 28CM BLADDER STIM FDA Start: 07-25-2018 GENERATOR,BLADDE R STIM FDA Start: 08-08-2018 GENERATOR,BLADDE R STIM FDA Start: 08-10-2021 LEAD KIT 28CM BLADDER STIM FDA Start: 08-10-2021 LEAD KIT 33CM BLADDER STIM FDA Start: 08-10-2021 LEAD KIT 28CM BLADDER STIM FDA Start: 07-25-2018 GENERATOR,BLADDE R STIM FDA Start: 08-08-2018 GENERATOR,BLADDE R STIM FDA Start: 08-10-2021 LEAD KIT 28CM BLADDER STIM FDA Start: 08-10-2021 LEAD KIT 33CM BLADDER STIM FDA Start: 08-10-2021 LEAD KIT 28CM BLADDER STIM FDA Start: 07-25-2018 GENERATOR,BLADDE R STIM FDA Start: 08-08-2018 GENERATOR,BLADDE R STIM FDA Start: 08-10-2021 LEAD KIT 28CM BLADDER STIM FDA Start: 08-10-2021 LEAD KIT 33CM BLADDER STIM FDA Start: 08-10-2021 LEAD KIT 28CM BLADDER STIM FDA Start: 07-25-2018 GENERATOR,BLADDE R STIM FDA Start: 08-08-2018 GENERATOR,BLADDE R STIM FDA Start: 08-10-2021 LEAD KIT 28CM BLADDER STIM FDA Start: 08-10-2021 LEAD KIT 33CM BLADDER STIM FDA Start: 08-10-2021 LEAD KIT 28CM BLADDER STIM FDA Start: 07-25-2018 GENERATOR,BLADDE R STIM FDA Start: 08-08-2018 GENERATOR,BLADDE R STIM FDA Start: 08-10-2021 LEAD KIT 28CM BLADDER STIM FDA Start: 08-10-2021 LEAD KIT 33CM BLADDER STIM FDA Start: 08-10-2021 LEAD KIT 28CM BLADDER STIM FDA Start: 07-25-2018 GENERATOR,BLADDE R STIM FDA Start: 08-08-2018 GENERATOR,BLADDE R STIM FDA Start: 08-10-2021 LEAD KIT 28CM BLADDER STIM FDA Start: 08-10-2021 LEAD KIT 33CM BLADDER STIM FDA Start: 08-10-2021 LEAD KIT 28CM BLADDER STIM FDA Start: 07-25-2018 GENERATOR,BLADDE R STIM FDA Start: 08-08-2018 GENERATOR,BLADDE R STIM FDA Start: 08-10-2021 LEAD KIT 28CM BLADDER STIM FDA Start: 08-10-2021 LEAD KIT 33CM BLADDER STIM FDA Start: 08-10-2021 LEAD KIT 28CM BLADDER STIM FDA Start: 07-25-2018 GENERATOR,BLADDE R STIM FDA Start: 08-08-2018 GENERATOR,BLADDE R STIM FDA Start: 08-10-2021 LEAD KIT 28CM BLADDER STIM FDA Start: 08-10-2021 LEAD KIT 33CM BLADDER STIM FDA Start: 08-10-2021 LEAD KIT 28CM BLADDER STIM FDA Start: 07-25-2018 GENERATOR,BLADDE R STIM FDA Start: 08-08-2018 GENERATOR,BLADDE R STIM FDA Start: 08-10-2021 LEAD KIT 28CM BLADDER STIM FDA Start: 08-10-2021 LEAD KIT 33CM BLADDER STIM FDA Start: 08-10-2021 LEAD KIT 28CM BLADDER STIM FDA Start: 07-25-2018 GENERATOR,BLADDE R STIM FDA Start: 08-08-2018 GENERATOR,BLADDE R STIM FDA Start: 08-10-2021 LEAD KIT 28CM BLADDER STIM FDA Start: 08-10-2021 LEAD KIT 33CM BLADDER STIM FDA Start: 08-10-2021 LEAD KIT 28CM BLADDER STIM FDA Start: 07-25-2018 GENERATOR,BLADDE R STIM FDA Start: 08-08-2018 GENERATOR,BLADDE R STIM FDA Start: 08-10-2021 LEAD KIT 28CM BLADDER STIM FDA Start: 08-10-2021 LEAD KIT 33CM BLADDER STIM FDA Start: 08-10-2021 LEAD KIT 28CM BLADDER STIM FDA Start: 07-25-2018 GENERATOR,BLADDE R STIM FDA Start: 08-08-2018 GENERATOR,BLADDE R STIM FDA Start: 08-10-2021 LEAD KIT 28CM BLADDER STIM FDA Start: 08-10-2021 LEAD KIT 33CM BLADDER STIM FDA Start: 08-10-2021 LEAD KIT 28CM BLADDER STIM FDA Start: 07-25-2018 GENERATOR,BLADDE R STIM FDA Start: 08-08-2018 GENERATOR,BLADDE R STIM FDA Start: 08-10-2021 LEAD KIT 28CM BLADDER STIM FDA Start: 08-10-2021 LEAD KIT 33CM BLADDER STIM FDA Start: 08-10-2021 LEAD KIT 28CM BLADDER STIM FDA Start: 07-25-2018 GENERATOR,BLADDE R STIM FDA Start: 08-08-2018 GENERATOR,BLADDE R STIM FDA Start: 08-10-2021 LEAD KIT 28CM BLADDER STIM FDA Start: 08-10-2021 LEAD KIT 33CM BLADDER STIM FDA Start: 08-10-2021 LEAD KIT 28CM BLADDER STIM FDA Start: 07-25-2018 GENERATOR,BLADDE R STIM FDA Start: 08-08-2018 GENERATOR,BLADDE R STIM FDA Start: 08-10-2021 LEAD KIT 28CM BLADDER STIM FDA Start: 08-10-2021 LEAD KIT 33CM BLADDER STIM FDA Start: 08-10-2021 LEAD KIT 28CM BLADDER STIM FDA Start: 07-25-2018 GENERATOR,BLADDE R STIM FDA Start: 08-08-2018 GENERATOR,BLADDE R STIM FDA Start: 08-10-2021 LEAD KIT 28CM BLADDER STIM FDA Start: 08-10-2021 LEAD KIT 33CM BLADDER STIM FDA Start: 08-10-2021 LEAD KIT 28CM BLADDER STIM FDA Start: 07-25-2018 GENERATOR,BLADDE R STIM FDA Start: 08-08-2018 GENERATOR,BLADDE R STIM FDA Start: 08-10-2021 LEAD KIT 28CM BLADDER STIM FDA Start: 08-10-2021 LEAD KIT 33CM BLADDER STIM FDA Start: 08-10-2021 LEAD KIT 28CM BLADDER STIM FDA Start: 07-25-2018 GENERATOR,BLADDE R STIM FDA Start: 08-08-2018 GENERATOR,BLADDE R STIM FDA Start: 08-10-2021 LEAD KIT 28CM BLADDER STIM FDA Start: 08-10-2021 LEAD KIT 33CM BLADDER STIM FDA Start: 08-10-2021 LEAD KIT 28CM BLADDER STIM FDA Start: 07-25-2018 GENERATOR,BLADDE R STIM FDA Start: 08-08-2018 GENERATOR,BLADDE R STIM FDA Start: 08-10-2021 LEAD KIT 28CM BLADDER STIM FDA Start: 08-10-2021 LEAD KIT 33CM BLADDER STIM FDA Start: 08-10-2021 LEAD KIT 28CM BLADDER STIM FDA Start: 07-25-2018 GENERATOR,BLADDE R STIM FDA Start: 08-08-2018 GENERATOR,BLADDE R STIM FDA Start: 08-10-2021 LEAD KIT 28CM BLADDER STIM FDA Start: 08-10-2021 LEAD KIT 33CM BLADDER STIM FDA Start: 08-10-2021 LEAD KIT 28CM BLADDER STIM FDA Start: 07-25-2018 GENERATOR,BLADDE R STIM FDA Start: 08-08-2018 GENERATOR,BLADDE R STIM FDA Start: 08-10-2021 LEAD KIT 28CM BLADDER STIM FDA Start: 08-10-2021 LEAD KIT 33CM BLADDER STIM FDA Start: 08-10-2021 LEAD KIT 28CM BLADDER STIM FDA Start: 07-25-2018 GENERATOR,BLADDE R STIM FDA Start: 08-08-2018 GENERATOR,BLADDE R STIM FDA Start: 08-10-2021 LEAD KIT 28CM BLADDER STIM FDA Start: 08-10-2021 LEAD KIT 33CM BLADDER STIM FDA Start: 08-10-2021 LEAD KIT 28CM BLADDER STIM FDA Start: 07-25-2018 GENERATOR,BLADDE R STIM FDA Start: 08-08-2018 GENERATOR,BLADDE R STIM FDA Start: 08-10-2021 LEAD KIT 28CM BLADDER STIM FDA Start: 08-10-2021 LEAD KIT 33CM BLADDER STIM FDA Start: 08-10-2021 GENERATOR,BLADDE R STIM FDA Start: 08-10-2021 LEAD KIT 28CM BLADDER STIM FDA Start: 08-10-2021 LEAD KIT 33CM BLADDER STIM FDA Start: 08-10-2021 GENERATOR,BLADDE R STIM FDA Start: 08-08-2018 LEAD KIT 28CM BLADDER STIM FDA Start: 07-25-2018 GENERATOR,BLADDE R STIM FDA Start: 08-10-2021 LEAD KIT 28CM BLADDER STIM FDA Start: 08-10-2021 LEAD KIT 33CM BLADDER STIM FDA Start: 08-10-2021 GENERATOR,BLADDE R STIM FDA Start: 08-08-2018 LEAD KIT 28CM BLADDER STIM FDA Start: 07-25-2018 GENERATOR,BLADDE R STIM FDA Start: 08-10-2021 LEAD KIT 28CM BLADDER STIM FDA Start: 08-10-2021 LEAD KIT 33CM BLADDER STIM FDA Start: 08-10-2021 GENERATOR,BLADDE R STIM FDA Start: 08-08-2018 LEAD KIT 28CM BLADDER STIM FDA Start: 07-25-2018 GENERATOR,BLADDE R STIM FDA Start: 08-10-2021 LEAD KIT 28CM BLADDER STIM FDA Start: 08-10-2021 LEAD KIT 33CM BLADDER STIM FDA Start: 08-10-2021 GENERATOR,BLADDE R STIM FDA Start: 08-08-2018 LEAD KIT 28CM BLADDER STIM FDA Start: 07-25-2018 GENERATOR,BLADDE R STIM FDA Start: 08-10-2021 LEAD KIT 28CM BLADDER STIM FDA Start: 08-10-2021 LEAD KIT 33CM BLADDER STIM FDA Start: 08-10-2021 GENERATOR,BLADDE R STIM FDA Start: 08-08-2018 LEAD KIT 28CM BLADDER STIM FDA Start: 07-25-2018 GENERATOR,BLADDE R STIM FDA Start: 08-10-2021 LEAD KIT 28CM BLADDER STIM FDA Start: 08-10-2021 LEAD KIT 33CM BLADDER STIM FDA Start: 08-10-2021 GENERATOR,BLADDE R STIM FDA Start: 08-08-2018 LEAD KIT 28CM BLADDER STIM FDA Start: 07-25-2018 GENERATOR,BLADDE R STIM FDA Start: 08-10-2021 LEAD KIT 28CM BLADDER STIM FDA Start: 08-10-2021 LEAD KIT 33CM BLADDER STIM FDA Start: 08-10-2021 GENERATOR,BLADDE R STIM FDA Start: 08-08-2018 LEAD KIT 28CM BLADDER STIM FDA Start: 07-25-2018 GENERATOR,BLADDE R STIM FDA Start: 08-10-2021 LEAD KIT 28CM BLADDER STIM FDA Start: 08-10-2021 LEAD KIT 33CM BLADDER STIM FDA Start: 08-10-2021 GENERATOR,BLADDE R STIM FDA Start: 08-08-2018 LEAD KIT 28CM BLADDER STIM FDA Start: 07-25-2018 GENERATOR,BLADDE R STIM FDA Start: 08-10-2021 LEAD KIT 28CM BLADDER STIM FDA Start: 08-10-2021 LEAD KIT 33CM BLADDER STIM FDA Start: 08-10-2021 GENERATOR,BLADDE R STIM FDA Start: 08-08-2018 LEAD KIT 28CM BLADDER STIM FDA Start: 07-25-2018 GENERATOR,BLADDE R STIM FDA Start: 08-10-2021 LEAD KIT 28CM BLADDER STIM FDA Start: 08-10-2021 LEAD KIT 33CM BLADDER STIM FDA Start: 08-10-2021 GENERATOR,BLADDE R STIM FDA Start: 08-08-2018 LEAD KIT 28CM BLADDER STIM FDA Start: 07-25-2018 GENERATOR,BLADDE R STIM FDA Start: 08-10-2021 LEAD KIT 28CM BLADDER STIM FDA Start: 08-10-2021 LEAD KIT 33CM BLADDER STIM FDA Start: 08-10-2021 GENERATOR,BLADDE R STIM FDA Start: 08-08-2018 LEAD KIT 28CM BLADDER STIM FDA Start: 07-25-2018 GENERATOR,BLADDE R STIM FDA Start: 08-10-2021 LEAD KIT 28CM BLADDER STIM FDA Start: 08-10-2021 LEAD KIT 33CM BLADDER STIM FDA Start: 08-10-2021 GENERATOR,BLADDE R STIM FDA Start: 08-08-2018 LEAD KIT 28CM BLADDER STIM FDA Start: 07-25-2018 GENERATOR,BLADDE R STIM FDA Start: 08-10-2021 LEAD KIT 28CM BLADDER STIM FDA Start: 08-10-2021 LEAD KIT 33CM BLADDER STIM FDA Start: 08-10-2021 GENERATOR,BLADDE R STIM FDA Start: 08-08-2018 LEAD KIT 28CM BLADDER STIM FDA Start: 07-25-2018 GENERATOR,BLADDE R STIM FDA Start: 08-10-2021 LEAD KIT 28CM BLADDER STIM FDA Start: 08-10-2021 LEAD KIT 33CM BLADDER STIM FDA Start: 08-10-2021 GENERATOR,BLADDE R STIM FDA Start: 08-08-2018 LEAD KIT 28CM BLADDER STIM FDA Start: 07-25-2018 GENERATOR,BLADDE R STIM FDA Start: 08-10-2021 LEAD KIT 28CM BLADDER STIM FDA Start: 08-10-2021 LEAD KIT 33CM BLADDER STIM FDA Start: 08-10-2021 GENERATOR,BLADDE R STIM FDA Start: 08-08-2018 LEAD KIT 28CM BLADDER STIM FDA Start: 07-25-2018 GENERATOR,BLADDE R STIM FDA Start: 08-10-2021 LEAD KIT 28CM BLADDER STIM FDA Start: 08-10-2021 LEAD KIT 33CM BLADDER STIM FDA Start: 08-10-2021 GENERATOR,BLADDE R STIM FDA Start: 08-08-2018 LEAD KIT 28CM BLADDER STIM FDA Start: 07-25-2018 Goals Date Patient Goal Desired Activity /State Functional Status Date Assessment Result Facility 01-04-2022 Functional status Ambulates;Bath room Privilege [facility] Work Phone: 03-13-2015 Are you deaf, or do you have serious difficulty hearing No 03/13/2015 3:44 PM EDT Jade Stafford MA No [facility] 03-13-2015 Are you blind, or do you have serious difficulty seeing, even when wearing glasses No 03/13/2015 3:44 PM EDT Jade Stafford MA No [facility] 03-13-2015 Do you have serious difficulty walking or climbing stairs No 03/13/2015 3:44 PM EDT Jade Stafford MA No [facility] 03-13-2015 Do you have difficul ty dressing or bathing No 03/13/2015 3:44 PM EDT Jade Stafford MA No [facility] 03-13-2015 Because of a physica l, mental, or emotional condition, do you have difficulty doing errands alone such as visiting a physician's office or shopping No 03/13/2015 3:44 PM EDT Jade Stafford MA No [facility] Mental Status Date Assessment Result Facility 03-07-2025 Cognitive function Voice/Name [facility] Work Phone: 02-22-2025 Cognitive function Awake;Alert;A ppropriate;Fol lows Commands [facility] Work Phone: 02-15-2025 Cognitive function Arousable To Voice/Nam e [facility] Work Phone: 11-21-2024 Cognitive function Touch/Shaking [facility] Work Phone: 09-29-2024 Cognitive function Level Of Cons ciousness Awake;Alert;Appropriate;Fol lows Commands [facility] Work Phone: 09-28-2024 Cognitive function Level Of Cons ciousness Awake;Alert;Appropriate;Fol lows Commands [facility] Work Phone: 08-30-2024 Cognitive function Level Of Cons ciousness Follows Commands;Drowsy [facility] Work Phone: 08-30-2024 Cognitive function Voice/Name [facility] Work Phone: 01-04-2022 Cognitive function Level Of Cons ciousness Sedated [facility] Work Phone: 01-04-2022 Cognitive function Patient Epifanio montague Person;Place;Time [facility] Work Phone: 03-13-2015 Because of a physica l, mental, or emotional condition, do you have serious difficulty concentrating, remembering, or making decisions No 03/13/2015 3:44 PM EDT Jade Stafford MA No [facility] Clinical Notes 12-22-2021 to 03-07-2025 Note Date & Type Note Facility 03-07-2025 Consult note Note Date/Time March 07, 2025 8:37am [facility] Medical Records Department [address] [place] [address] Pre-Anesthesia Evaluation 03/07/25 0828 MR#: [id number] Acct: [id number] Name: WINTER JOY Rep #:[id number] : [id number] 70 From: Hank Dent MD PCP: Dr. Janet Valencia, DO Status:REG SDC Y Race: C Location: [place] [address] ASA Classification* ASA Classification ASA Classification: 3 Assessment & Plan Anesthesia* Anesthesia Assessment Anesthesia Assessment: Discussed sedation and/or anesthesia options, risks, benefits, and alternatives with patient/parents/legal guardian/POA. Questions invited. The patient/parents/legal guardian/POA seems to understand and agrees to proceedwith anesthesia plan. Reviewed the physical assessment, medical history, allergy history and patient home medications list prior to surgery/procedure/anesthetic and documented any changes. Performed airway and anesthesia risk assessments. Anesthesia Type Anesthesia Type: MAC History Source History Obtained from:: Patient and Chart Anesthesia Focused Assessment* Temperature: 98 F Pulse Rate: 72 Blood Pressure: 138/73 Respiratory Rate: 16 Pulse Ox: 98 Oxygen Delivery Method: Room Air Airway Assessment Mouth opens: >3 cm Mallampati Score: II Teeth Condition: Dentures (Patient has upper dentures. They are out. Edentulous on the bottom.) Neck Range of motion (ROM): Limited ROM (Somewhat Decreased) Labs Anesthesia Preop lab: CBC WBC 8.6 K/mm3 (4.4-11.0) 01/23/25 10:57 01/23/25 RBC 4.19 M/mm3 (4.2-5.4) L 01/23/25 10:57 01/23/25 Hgb 9.4 g/dL (12.0-15.0) L 01/23/25 10:57 01/23/25 Hct 32.5 % (37-47) L 01/23/25 10:57 01/23/25 Plt Count 390 K/mm3 (150-450) 01/23/25 10:57 01/23/25 CHEMISTRY Potassium 4.6 mmol/L (3.3-5.1) 01/23/25 10:57 01/23/25 Sodium 131 mmol/L (133-145) L 01/23/25 10:57 01/23/25 Magnesium 2.0 mg/dL (1.5-2.2) 01/23/25 10:57 01/23/25 Phosphorus 4.0 mg/dL (2.7-4.5) 01/23/25 10:57 01/23/25 BUN 28 mg/dL (4-19) H 01/23/25 10:57 01/23/25 Creatinine 0.91 mg/dL (0.70-1.20) 01/23/25 10:57 01/23/25 Glucose 82 mg/dL (70-99) 01/23/25 10:57 01/23/25 TSH 1.800 uIU/mL (0.300-4.200) 10/25/24 14:29 09/30 03/22 COAG PT 12.9 SECONDS (11.7-14.9) 11/14/15 11:30 Pre-Assessment Diagnosis/Proposed Procedure Planned Operative Procedure(s): COLONOSCOPY Anesthesia History 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 When Was Last Pacemaker Check QUESTION #4 FULL TEXT: You/Your Family Experience fever (hyperthermia) with Anesthesia Last Oral Intake Last Oral intake: Last Oral Intake NPO since 06:30 03/07/25 08:10 Meds taken in AM with sips of Yes 03/07/25 08:10 water? Meds patient instructed to AMLODIPINE 03/07/25 08:10 take am of surgery METOPROLOL Any additional information?: Yes NPO since: 07:00 (Patient finished prep just before 7 AM.) Meds taken in AM with sips of water?: Yes PONV PONV - fire captain: PONV - fire captain Female Yes 03/06/25 12:04 HX of Motion Sickness Yes 03/06/25 12:04 HX of N/V After Surgery No 03/06/25 12:04 Non-Smoker Yes 03/06/25 12:04 Duration of Surgery greater No 03/06/25 12:04 than 60 minutes Number of Risk Factors 3 03/06/25 12:04 PONV Score Moderate Risk 03/06/25 12:04 Height & Weight Height & Weight: Anesthesia: Height & Weight Height 5 ft 3 in 03/07/25 08:10 Weight: 103 kg 03/07/25 08:10 Body Mass Index (BMI) 40.2 03/07/25 08:10 Respiratory Assessment Respiratory Assessment - fire captain: Respiratory Tract Infection Hx - fire captain Hx Respiratory Tract Infection No 03/06/25 12:04 STOP Sleep Apnea STOP Sleep Apnea - fire captain: STOP Sleep Apnea - fire captain Hx Hypertension Yes: CONTROLLED WITH MED 03/06/25 12:04 Hx Sleep Apnea Yes 03/06/25 12:04 CPAP Yes: NON COMPLIANT 03/06/25 12:04 BIPAP No 03/06/25 12:04 Do you snore loudly (louder than talking or can be heard Do you often feel tired/ fatigued/ sleepy during daytime? Has anyone observed you stop breathing during sleep? STOP Results Positive 03/06/25 12:04 QUESTION #5 FULL TEXT : Do you snore loudly (louder than talking or can be heard through closed doors)? Tobacco Use History Tobacco Use History - fire captain: Tobacco Use History - fire captain Tobacco Use Smoking Status Former smoker 03/06/25 12:04 Hx Tobacco Use No 03/06/25 12:04 Years Smoking Packs Smoked per Day Smoking Cessation Date was No - quit smoking greater 03/06/25 12:04 within the last 15 years than 15 years ago Hx Smoking Cessation Date 04/05/83 03/06/25 12:04 Hx Smoking Cessation Counseling Hematologic Medial History Hematologic Hx - fire captain: Hematologic Medical Hx - bobbin cleaner hand Hx of Blood Transfusion Yes 03/06/25 12:04 Hx of Transfusion in last 3 No 03/06/25 12:04 Months Date of Last Transfusion (if within last 3 months) Ever experience any problems No 03/06/25 12:04 with transfusion(s)? Specify any problems Hx of Preganancy in last 3 No 03/06/25 12:04 Months Nurse Filling Out Transfusion VCHRISTIN 03/06/25 12:04 & Questions: Date: 03/06/25 03/06/25 12:04 Time: 12:06 03/06/25 12:04 Patient unable to answer at this time (ie. confused, unrespo /Reproduction History /Reproductive History - fire captain: /Reproductive Hx- fire captain Hx Now No 03/06/25 12:04 Gestational Age (in weeks): EDC: Hx Hx Para Hx Section SAB No 03/06/25 12:04 Active Medications Active Medications: Current Medications Generic Name Dose Route Start Last Admin Trade Name Freq PRN Reason Stop Dose Admin Lactated Ringer's 1,000 mls @ 15 mls/hr 03/07/25 08:00 03/07/25 08:18 IV 15 mls/hr .Q48H DMITRY Administration PFSH Medical History Normal Holter exam PTSD (post-traumatic stress disorder) Cardiology follow-up encounter History of Holter monitoring Pain FAITH (dyspnea on exertion) Chest pressure Wears glasses Wears dentures CPAP (continuous positive airway pressure) dependence Arthritis Osteoarthritis of left knee Left knee pain Stress incontinence Difficulty chewing History of IBS Former smoker Neuropathy Sjogrens syndrome Leg cramps History of edema History of echocardiogram History of stress test History of irregular heartbeat Chronic low back pain Sensory polyneuropathy Elevated hemoglobin A1c Rheumatoid arthritis TROY (obstructive sleep apnea) Urinary incontinence, urge Urinary urgency Urinary frequency PND (post-nasal drip) Bipolar 2 disorder Obesity (BMI 30-39.9) Mild intermittent asthma in adult without complication Mild mitral regurgitation Mild dilation of ascending aorta TROY (obstructive sleep apnea) Depression Right flank pain Spinal stenosis of lumbar region Hypertension Hyperlipidemia GERD (gastroesophageal reflux disease) Asthma OCD (obsessive compulsive disorder) Chest pain Thoracic aortic aneurysm without rupture Paroxysmal atrial tachycardia Nephrolithiasis Herpes simplex with unspecified complication Loss of appetite Anxiety Lightheadedness Long-term use of high-risk medication Obesity Sinusitis Eustachian tube dysfunction Otitis media Nightmares Rhinorrhea Segmental and somatic dysfunction of cervical region Segmental and somatic dysfunction of thoracic region Back sprain Epigastric abdominal pain Encounter for screening for malignant neoplasm of colon Home Medications ?Medication ?Instructions ?Recorded ?Last Taken ?Type potassium chloride 20 mEq 20 meq PO BID 10/08/2003/06 History tablet,extended release oxybutynin chloride 10 mg 10 mg PO DAILY 07/31/2105/23 History tablet,extended release 24 hr duloxetine 30 mg capsule,delayed 30 mg PO BID 07/07/23 03/06/25 History release trazodone 150 mg tablet 150 mg PO QHS 09/28/2303/06 History vibegron 75 mg tablet (Gemtesa) 75 mg PO DAILY 4 03/06/25 History ondansetron 4 mg disintegrating 4 mg PO Q8H PRN nausea and vomiting 08/16/24 Unknown History tablet pantoprazole 40 mg tablet,delayed 40 mg PO QDAY 03/06/25 History release metoprolol tartrate 25 mg tablet 25 mg PO BID #180 tab s 10/25/24 03/07/25 Rx amlodipine 5 mg tablet 5 mg PO DAILY #30 tabs 11/0203/07/25 Rx lubiprostone 24 mcg capsule 24 mcg PO BID constipation #180 01/11/25 Unknown Rx (Amitiza) caps ascorbic acid (vitamin C) 500 mg 500 mg PO QDAY Unknown History tablet Held on 03/06/25. Instructions: PT STOPPED WHEN TAKING IRON guaifenesin 1,200 mg tablet, 1,200 mg PO BID 01/23/25 03/06/25 History extended release 12 hr lisinopril 20 mg tablet 20 mg PO BID 01/23/25 History tizanidine 4 mg tablet 4 mg PO BID PRN muscle spast icity 01/23/25 Unknown History polyethylene glycol 3350 17 4 g PO ONCE #238 grams 10/23 Unknown Rx gram/dose oral powder (Miralax) Allergy/AdvReac Type Severity Reaction Status Date / Time tramadol (From Ultram) Allergy Intermediate Itching Verified 03/07/25 08:07 oxycodone (From Percocet) Allergy Mild Itching Verified 03/07/25 08:07 cephalexin (From Keflex) Allergy Rash Verified 03/07/25 08:07 flurazepam (From Dalmane) Allergy Other Verified 03/07/25 08:07 shellfish derived Allergy RASH Verified 03/07/25 08:07 divalproex sodium (From AdvReac Intermediate Other - Verified 03/07/25 08:07 Depakote) nightmares quetiapine (From Seroquel) AdvReac Mild Other - Verified 03/07/25 08:07 shaking, lightheaded and abnormal dreams meloxicam AdvReac Unknown Verified 03/07/25 08:07 Family History Father Cancer Alcoholism Hypertension Mother Heart disease H/O weight disorder Myocardial infarction Hypertension COPD (chronic obstructive pulmonary disease) Skin cancer Sister Hypertension Surgical History Hx of colonoscopy Hx of cystoscopy History of cardiac catheterization Hx of surgical procedure bladder sling removal History of bilateral carpal tunnel release H/O eye surgery H/O hand surgery History of total right knee replacement History of appendectomy H/O: hysterectomy Hx laparoscopic cholecystectomy Social History household members: none Smoking Status: Former smoker quit date: 08/29/82 pack-years: 15 second hand exposure: No alcohol intake: never substance use type: does not use Review of Systems (Anesthesia) ROS Narrative System reviewed and no additional complaints, except as documented. Physical Exam Resp clear to auscultation bilaterally 03/07/25836 <Electronically signed by Hank quezada MD> Date _ Hank Davenport Signature: Date CC: ~ Signed [facility] Work Phone: [phone] 875-959407-10-2025 Consult note [facility] Medical Records Department [address] [place] [address] [place] [address] Anesthesia Postop Eval I 03/07/2557 MR#: [id number] Acct: [id number] Name: MARTALOGANWINTER Rep #:[id number] : 1955 70 From: Jayy Torres PCP: Dr. Janet Valencia, DO Status:REG SDC Y Race: C Location: [place] [address] Anesthesia: Postop Eval I Current Vital Signs Temperature: 97.2 F Pulse Rate: 72 Blood Pressure: 128/76 Respiratory Rate: 16 Pulse Ox: 100 Oxygen Delivery Method: Room Air Assessment Airway patent: Yes Spontaneous unlabored respirations: Yes Mental status: Asleep nausea: No Vomiting: No Anesthesia Complication: No Fluid Hydration Crystalloid volume administer (ml): 400 Total IV fluid infused: 400 Progress Note Anesthesia document: Postop Eval 1 completed: Yes 03/07/2558 > Date _ Jayy Davenport Signature: Date CC: ~ Signed [facility]07-10-2025 Procedure note [facility] Medical Records Department [address] [place] [address] Colonoscopy Report MR#: [id number] Acct: [id number] Name: WINTER JOY Rep #:[id number] : 1955 70 From: Tato Posey DO PCP: Dr. Janet Valencia DO Status:REG SDC Patient Name: Winter Joy Procedure Date: 03/07/2025 9:11 AM Date of : 1955 Age: 70 Procedure: Colonoscopy Indications: Iron deficiency anemia Providers: Tato Posey DO Referring MD: Janet Valencia Medicines: Monitored Anesthesia Care Patient Profile: This is a 70 year old female. Refer to note in patient chart for documentation of history and physical. Last Colonoscopy: within the past year. Complications: No immediate complications. Procedure: Pre-Anesthesia Assessment: - Prior to the procedure, a History and Physical was performed, and patient medications and allergies were reviewed. The patient is competent. The risks and benefits of the procedure and the sedation options and risks were discussed with the patient. All questions were answered and informed consent was obtained. Patient identification and proposed procedure were verified by the physician in the pre-procedure area. Mental Status Examination: alert and oriented. Airway Examination: normal oropharyngeal airway and neck mobility. Respiratory Examination: clear to auscultation. CV Examination: normal. Prophylactic Antibiotics: The patient does not require prophylactic antibiotics. Prior Anticoagulants: The patient has taken no anticoagulant or antiplatelet agents except for NSAID medication. ASA Grade Assessment: II - A patient with mild systemic disease. After reviewing the risks and benefits, the patient was deemed in satisfactory condition to undergo the procedure. The anesthesia plan was to use monitored anesthesia care (MAC). Immediately prior to administration of medications, the patient was re-assessed for adequacy to receive sedatives. The heart rate, respiratory rate, oxygen saturations, blood pressure, adequacy of pulmonary ventilation, and response to care were monitored throughout the procedure. The physical status of the patient was re-assessed after the procedure. After I obtained informed consent, the scope was passed under direct vision. Throughout the procedure, the patient's blood pressure, pulse, and oxygen saturations were monitored continuously. The Colonoscope was introduced through the anus and advanced to the cecum, identified by appendiceal orifice and ileocecal valve. The colonoscopy was performed without difficulty. The patient tolerated the procedure well. The quality of the bowel preparation was adequate. The ileocecal valve, appendiceal orifice, and rectum were photographed. Scope In: 9:28:13 AM Scope Withdrawal Time 0 hours 10 minutes 22 seconds Scope Out: 9:47:00 AM Total Procedure Duration Time 0 hours 18 minutes 47 seconds Findings: The perianal and digital rectal examinations were normal. A few small-mouthed diverticula were found in the recto-sigmoid colon. The exam was otherwise without abnormality. Impression: - Diverticulosis in the recto-sigmoid colon. - The examination was otherwise normal. - No specimens collected. Recommendation: - Discharge patient to home. - Resume previous diet. - Continue present medications. - Repeat colonoscopy in 5 years for surveillance. Procedure Code(s): --- Professional --- 76149, Colonoscopy, flexible; diagnostic, including collection of specimen(s) by brushing or washing, when performed (separate procedure) CPT copyright 2021 [employer]. All rights reserved. The codes documented in this report are preliminary and upon [facility] assisted living review may be revised to meet current compliance requirements. Tato Posey DO 03/07/2025 9:58:20 AM This report has been signed electronically. Number of Addenda: 0 Note Initiated On: 03/07/2025 9:11 AM 03/07/25 0958 Date _ Tato Posey DO Cosigner Signature: Date (if indicated) CC: Dr. Janet Valencia DO; Tato Posey DO ~ Date Dictated: 03/07/2511 Date Transcribed: Lens Cementer: RF Signed [facility]07-10-2025 Procedure note [facility] Medical Records Department [address] [place] [address] Operative Report - CC Letter MR#: [id number] Acct: [id number] Name: WINTER JOY Rep #:[id number] : 1955 70 From: Tato Posey DO PCP: Dr. Janet Valencia DO [place] [facility] [place] Janet Valencia [address] [facility] [place] [address] Re : Colonoscopy procedure for Winter Joy Dear Dr. Valencia This procedure was performed on , March 07, 2025. My impressions and recommendations are as follows: Impressions : - Diverticulosis in the recto-sigmoid colon. - The examination was otherwise normal. - No specimens collected. Recommendations : - Discharge patient to home. - Resume previous diet. - Continue present medications. - Repeat colonoscopy in 5 years for surveillance. My findings are described in the full procedure note, which is enclosed. If I can be of further assistance, please feel free to contact me at . Sincerely, Tato Posey DO 03/07/2025 9:58:20 AM This report has been signed electronically. 03/07/25957 Date _ Tato Posey DO Cosigner Signature: Date (if indicated) CC: Dr. Janet Valencia DO; Tato Posey DO ~ Date Dictated: 03/07/25910 Date Transcribed: Lens Cementer: RF Signed [facility]07-10-2025 History and physical note [facility] Medical Records Department [address] [place] [address] History & Physical Exam 03/07/25904 MR#: [id number] Acct: [id number] Name: WINTER JOY Rep #:[id number] : 1955 70 From: Tato Posey DO PCP: Dr. Janet Valencia, DO [place] [facility] [place] Location: [address] HPI - General General Date of Admission: 03/07/25 Date of Service: 03/07/25 Chief Complaint: Repeat colonoscopy because of a poor prep HPI Narrative WINTER JOY, is a 70 F who presents with the Chief Complaint: follow-up OV 09/27/2024 69y/o female presents for follow-up of constipation and RLQ pain. She was last seen 08/16/2024 and it was recommended she discontinue Linzess and Miralax. She was started on Amitiza 24mcg BID with recommendation to continue daily prunes and adequate water intake. Colonoscopy performed 08/30/2024 revealed a TA. Prep was poor and it is recommended she repeat the colonoscopy in 6 months (February 2025). Labs completed 08/16/2024 reveal a drop in HGB to 9.8, previously 10.4. In terms of steatosis noted on prior CT, I had ordered labs and FibroScan. Labs revealed she is notimmune to Hepatitis A or B and I recommend she complete vaccine series. ELF score is elevated to 9.97 which suggests she has a high probability of advanced fibrosis or cirrhosis. It does not appear she had the FibroScan completed. COLON: 11/21/2024 (this was with 1/2d Miralax and 1d SuFlave) - Preparation of the colon was poor. - Diverticulosis in the recto-sigmoid colon and in the sigmoid colon. - Stool in the rectum, in the recto-sigmoid colon, in the sigmoid colon, in the descending colon, in the transverse colon, at the hepatic flexure, in the ascending colon, in the cecum and at the appendiceal orifice. - No specimens collected. EGD 11/21/2024 - negative for H. pylori - Normal esophagus. - Small hiatal hernia. - Erythematous mucosa in the gastric body. Biopsied. - No gross lesions in the third portion of the duodenum. WORKLOAD MESSAGE On 12/03/24 @ 14:46 Clau Mcclain Wrote To Erin Reed Labs completed 11/21/2024 revealed improvement in HGB to 10.1. Microcytic anemia Fe 26, 6% saturation. EGD and colonoscopy were negative for cause of bleeding. She should follow-up in the office so wecan discuss further evaluation of anemia. She should be on pantoprazole 40mg daily and Fe once daily. She should be taking PPI and Fe at least 1 hour apart, as the PPI may hinder the absorptionof Fe.I am concerned with adding Carafate with her other multitude of medications and chance of inhibiting absorption of other medications. I can discuss with her in the office further. Please arrange OV. Thanks WEIGHT: 230lbs today 09/28/2024 222lbs - she reports starting the Hepatitis A/B injections with PCP - she reports she was able to drink all of the bowel prep - weight is up 8lbs - she remains on Amitiza BID - she does feel this is helping with constipation - she is no longer eating prunes - she is now having a BM - she reports she is having a BM at least twice a day, formed - occasional episodes of diarrhea - she continues to take Hydrocodone 1-2 a day [facility] Medical History Normal Holter exam PTSD (post-traumatic stress disorder) Cardiology follow-up encounter History of Holter monitoring Pain FAITH (dyspnea on exertion) Chest pressure Wears glasses Wears dentures CPAP (continuous positive airway pressure) dependence Arthritis Osteoarthritis of left knee Left knee pain Stress incontinence Difficulty chewing History of IBS Former smoker Neuropathy Sjogrens syndrome Leg cramps History of edema History of echocardiogram History of stress test History of irregular heartbeat Chronic low back pain Sensory polyneuropathy Elevated hemoglobin A1c Rheumatoid arthritis TROY (obstructive sleep apnea) Urinary incontinence, urge Urinary urgency Urinary frequency PND (post-nasal drip) Bipolar 2 disorder Obesity (BMI 30-39.9) Mild intermittent asthma in adult without complication Mild mitral regurgitation Mild dilation of ascending aorta TROY (obstructive sleep apnea) Depression Right flank pain Spinal stenosis of lumbar region Hypertension Hyperlipidemia GERD (gastroesophageal reflux disease) Asthma OCD (obsessive compulsive disorder) Chest pain Thoracic aortic aneurysm without rupture Paroxysmal atrial tachycardia Nephrolithiasis Herpes simplex with unspecified complication Loss of appetite Anxiety Lightheadedness Long-term use of high-risk medication Obesity Sinusitis Eustachian tube dysfunction Otitis media Nightmares Rhinorrhea Segmental and somatic dysfunction of cervical region Segmental and somatic dysfunction of thoracic region Back sprain Epigastric abdominal pain Encounter for screening for malignant neoplasm of colon Home Medications ?Medication ?Instructions ?Recorded ?Last Taken ?Type potassium chloride 20 mEq 20 meq PO BID 10/08/2003/06 History tablet,extended release oxybutynin chloride 10 mg 10 mg PO DAILY 07/31/2105/23 History tablet,extended release 24 hr duloxetine 30 mg capsule,delayed 30 mg PO BID 07/07/23 03/06/25 History release trazodone 150 mg tablet 150 mg PO QHS 09/28/2303/06 History vibegron 75 mg tablet (Gemtesa) 75 mg PO DAILY 4 03/06/25 History ondansetron 4 mg disintegrating 4 mg PO Q8H PRN nausea and vomiting 08/16/24 Unknown History tablet pantoprazole 40 mg tablet,delayed 40 mg PO QDAY 03/06/25 History release metoprolol tartrate 25 mg tablet 25 mg PO BID #180 tab s 10/25/24 03/07/25 Rx amlodipine 5 mg tablet 5 mg PO DAILY #30 tabs 11/0203/07/25 Rx lubiprostone 24 mcg capsule 24 mcg PO BID constipation #180 01/11/25 Unknown Rx (Amitiza) caps ascorbic acid (vitamin C) 500 mg 500 mg PO QDAY Unknown History tablet Held on 03/06/25. Instructions: PT STOPPED WHEN TAKING IRON guaifenesin 1,200 mg tablet, 1,200 mg PO BID 01/23/25 03/06/25 History extended release 12 hr lisinopril 20 mg tablet 20 mg PO BID 01/23/25 History tizanidine 4 mg tablet 4 mg PO BID PRN muscle spast icity 01/23/25 Unknown History polyethylene glycol 3350 17 4 g PO ONCE #238 grams 10/23 Unknown Rx gram/dose oral powder (Miralax) Allergy/AdvReac Type Severity Reaction Status Date / Time tramadol (From Ultram) Allergy Intermediate Itching Verified 03/07/25 08:07 oxycodone (From Percocet) Allergy Mild Itching Verified 03/07/25 08:07 cephalexin (From Keflex) Allergy Rash Verified 03/07/25 08:07 flurazepam (From Dalmane) Allergy Other Verified 03/07/25 08:07 shellfish derived Allergy RASH Verified 03/07/25 08:07 divalproex sodium (From AdvReac Intermediate Other - Verified 03/07/25 08:07 Depakote) nightmares quetiapine (From Seroquel) AdvReac Mild Other - Verified 03/07/25 08:07 shaking, lightheaded and abnormal dreams meloxicam AdvReac Unknown Verified 03/07/25 08:07 Family History Father Cancer Alcoholism Hypertension Mother Heart disease H/O weight disorder Myocardial infarction Hypertension COPD (chronic obstructive pulmonary disease) Skin cancer Sister Hypertension Surgical History Hx of colonoscopy Hx of cystoscopy History of cardiac catheterization Hx of surgical procedure bladder sling removal History of bilateral carpal tunnel release H/O eye surgery H/O hand surgery History of total right knee replacement History of appendectomy H/O: hysterectomy Hx laparoscopic cholecystectomy Social History household members: none Smoking Status: Former smoker quit date: 08/29/82 pack-years: 15 second hand exposure: No alcohol intake: never substance use type: does not use ROS Constitutional Constitutional: Denies fatigue, fever(s), poor appetite, weight gain or weight loss Gastrointestinal Gastrointestinal: Denies belching, bloating, change in bowel habits, change in stool character, chewing difficulty, coffee ground emesis, constipation, cramping, diarrhea, dyspepsia, dysphagia, earlysatiety, excessive flatus, fecalincontinence, heartburn, hematemesis, hematochezia, hemorrhoids, loose stools, melena, nausea, odynophagia, rectal bleeding, tenesmus, vomiting or weight changes Vital Signs Vital Signs Vital Signs: 03/07/25 08:10 03/07/25 08:10 03/07/25 08:37 Temperature 98 F 98 F Temperature Source Temporal Pulse Rate 72 72 Respiratory Rate 16 16 Respiratory Pattern Normal Blood Pressure 138/73 H 138/73 H Blood Pressure Mean 94 Blood Pressure Source Monitor Blood Pressure Position Semi-Fowlers Blood Pressure Location Left Arm Pulse Ox 98 98 Oxygen Delivery Method Room Air Room Air Weight Weight: 227 lb 1.218 oz Body Mass Index (BMI) 40.2 Physical Exam Const alert, oriented x3, no apparent distress and healthy appearing General Appearance: cooperative GI normal to inspection, nondistended, normoactive bowel sounds, soft to palpation,non-tender and non-distended Percussion: normal to percussion Rectal Exam: deferred Assessment & Plan Assessment/Plan (1) Iron deficiency anemia refractory to iron therapy: (2) Iron deficiency anemia: QUALIFIERS: Iron deficiency anemia type: unspecified iron deficiency Qualified Code(s): D50.9 - Iron deficiency anemia, unspecified PLAN: Assessment and Plan Assessment and Plan (1) Constipation: Status: Acute (2) Anemia: Status: Acute Orders: Orders CBC W/Diff, Automated Today D64.9 - Anemia, unspecified Medications: New peg 3350-electrolytes 236-22.74-6.74 -5.86 gram (Golytely) take as directed for split dose bowel prep 240 mL PO Q10M 4,000 mL 0RF Plan 69y/o female presents for follow-up post procedures. EGD and Colonoscopy were completed 11/21/2024. EGD biopsies were negative for H. pylori. Colonoscopy prep was again poor. She reports Amitiza BID has shown improvement in constipation. In terms of iron deficiency anemia she does report starting ferrous sulfate oncedaily 1 month ago. She will repeat a CBC now. I have scheduled her for a colonoscopy with a 2-day bowel prep. Patient Instructions: Continue Amitiza twice a day [id number] bowel prep (Suflave-sample and GoLytely) Complete labs today Continue ferrous sulfate daily Follow-up in office post procedure 03/07/25 0910 Cosigner Signature (if applicable): CC: Dr. Janet Valencia, ; Tato Friend, DO~ Signed [facility]07-10-2025 [facility]07-10-2025 Consult note [facility] Medical Records Department [address] [place] [address] Pre-Anesthesia Evaluation 03/07/2528 MR#: [id number] Acct: [id number] Name: WINTER JOY Rep #:[id number] : 1955 70 From: Hank Dent MD PCP: Dr. Janet Valencia DO Status:REG SDC Y Race: C Location: [place] [address] ASA Classification* ASA Classification ASA Classification: 3 Assessment & Plan Anesthesia* Anesthesia Assessment Anesthesia Assessment: Discussed sedation and/or anesthesia options, risks, benefits, and alternatives with patient/parents/legal guardian/POA. Questions invited. The patient/parents/legal guardian/POA seems to understand and agrees to proceedwith anesthesia plan. Reviewed the physical assessment, medical history, allergy history and patient home medications list prior to surgery/procedure/anesthetic and documented any changes. Performed airway and anesthesia risk assessments. Anesthesia Type Anesthesia Type: MAC History Source History Obtained from:: Patient and Chart Anesthesia Focused Assessment* Temperature: 98 F Pulse Rate: 72 Blood Pressure: 138/73 Respiratory Rate: 16 Pulse Ox: 98 Oxygen Delivery Method: Room Air Airway Assessment Mouth opens: >3 cm Mallampati Score: II Teeth Condition: Dentures (Patient has upper dentures. They are out. Edentulous on the bottom.) Neck Range of motion (ROM): Limited ROM (Somewhat Decreased) Labs Anesthesia Preop lab: CBC WBC 8.6 K/mm3 (4.4-11.0) 01/23/25 10:57 01/23/25 RBC 4.19 M/mm3 (4.2-5.4) L 01/23/25 10:57 01/23/25 Hgb 9.4 g/dL (12.0-15.0) L 01/23/25 10:57 01/23/25 Hct 32.5 % (37-47) L 01/23/25 10:57 01/23/25 Plt Count 390 K/mm3 (150-450) 01/23/25 10:57 01/23/25 CHEMISTRY Potassium 4.6 mmol/L (3.3-5.1) 01/23/25 10:57 01/23/25 Sodium 131 mmol/L (133-145) L 01/23/25 10:57 01/23/25 Magnesium 2.0 mg/dL (1.5-2.2) 01/23/25 10:57 01/23/25 Phosphorus 4.0 mg/dL (2.7-4.5) 01/23/25 10:57 01/23/25 BUN 28 mg/dL (4-19) H 01/23/25 10:57 01/23/25 Creatinine 0.91 mg/dL (0.70-1.20) 01/23/25 10:57 01/23/25 Glucose 82 mg/dL (70-99) 01/23/25 10:57 01/23/25 TSH 1.800 uIU/mL (0.300-4.200) 10/25/24 14:29 09/30 03/22 COAG PT 12.9 SECONDS (11.7-14.9) 11/14/15 11:30 Pre-Assessment Diagnosis/Proposed Procedure Planned Operative Procedure(s): COLONOSCOPY Anesthesia History 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 When Was Last Pacemaker Check QUESTION #4 FULL TEXT: You/Your Family Experience fever (hyperthermia) with Anesthesia Last Oral Intake Last Oral intake: Last Oral Intake NPO since 06:30 03/07/25 08:10 Meds taken in AM with sips of Yes 03/07/25 08:10 water? Meds patient instructed to AMLODIPINE 03/07/25 08:10 take am of surgery METOPROLOL Any additional information?: Yes NPO since: 07:00 (Patient finished prep just before 7 AM.) Meds taken in AM with sips of water?: Yes PONV PONV - fire captain: PONV - fire captain Female Yes 03/06/25 12:04 HX of Motion Sickness Yes 03/06/25 12:04 HX of N/V After Surgery No 03/06/25 12:04 Non-Smoker Yes 03/06/25 12:04 Duration of Surgery greater No 03/06/25 12:04 than 60 minutes Number of Risk Factors 3 03/06/25 12:04 PONV Score Moderate Risk 03/06/25 12:04 Height & Weight Height & Weight: Anesthesia: Height & Weight Height 5 ft 3 in 03/07/25 08:10 Weight: 103 kg 03/07/25 08:10 Body Mass Index (BMI) 40.2 03/07/25 08:10 Respiratory Assessment Respiratory Assessment - fire captain: Respiratory Tract Infection Hx - fire captain Hx Respiratory Tract Infection No 03/06/25 12:04 STOP Sleep Apnea STOP Sleep Apnea - fire captain: STOP Sleep Apnea - fire captain Hx Hypertension Yes: CONTROLLED WITH MED 03/06/25 12:04 Hx Sleep Apnea Yes 03/06/25 12:04 CPAP Yes: NON COMPLIANT 03/06/25 12:04 BIPAP No 03/06/25 12:04 Do you snore loudly (louder than talking or can be heard Do you often feel tired/ fatigued/ sleepy during daytime? Has anyone observed you stop breathing during sleep? STOP Results Positive 03/06/25 12:04 QUESTION #5 FULL TEXT : Do you snore loudly (louder than talking or can be heard through closeddoors)? Tobacco Use History Tobacco Use History - fire captain: Tobacco Use History - fire captain Tobacco Use Smoking Status Former smoker 03/06/25 12:04 Hx Tobacco Use No 03/06/25 12:04 Years Smoking Packs Smoked per Day Smoking Cessation Date was No - quit smoking greater 03/06/25 12:04 within the last 15 years than 15 years ago Hx Smoking Cessation Date 04/05/83 03/06/25 12:04 Hx Smoking Cessation Counseling Hematologic Medial History Hematologic Hx - fire captain: Hematologic Medical Hx - bobbin cleaner hand Hx of Blood Transfusion Yes 03/06/25 12:04 Hx of Transfusion in last 3 No 03/06/25 12:04 Months Date of Last Transfusion (if within last 3 months) Ever experience any problems No 03/06/25 12:04 with transfusion(s)? Specify any problems Hx of Preganancy in last 3 No 03/06/25 12:04 Months Nurse Filling Out Transfusion VCHRISTIN 03/06/25 12:04 & Questions: Date: 03/06/25 03/06/25 12:04 Time: 12:06 03/06/25 12:04 Patient unable to answer at this time (ie. confused, unrespo /Reproduction History /Reproductive History - fire captain: /Reproductive Hx- fire captain Hx Now No 03/06/25 12:04 Gestational Age (in weeks): EDC: Hx Hx Para Hx Section SAB No 03/06/25 12:04 Active Medications Active Medications: Current Medications Generic Name Dose Route Start Last Admin Trade Name Freq PRN Reason Stop Dose Admin Lactated Ringer's 1,000 mls @ 15 mls/hr 03/07/25 08:00 03/07/25 08:18 IV 15 mls/hr .Q48H DMITRY Administration PFSH Medical History Normal Holter exam PTSD (post-traumatic stress disorder) Cardiology follow-up encounter History of Holter monitoring Pain FAITH (dyspnea on exertion) Chest pressure Wears glasses Wears dentures CPAP (continuous positive airway pressure) dependence Arthritis Osteoarthritis of left knee Left knee pain Stress incontinence Difficulty chewing History of IBS Former smoker Neuropathy Sjogrens syndrome Leg cramps History of edema History of echocardiogram History of stress test History of irregular heartbeat Chronic low back pain Sensory polyneuropathy Elevated hemoglobin A1c Rheumatoid arthritis TROY (obstructive sleep apnea) Urinary incontinence, urge Urinary urgency Urinary frequency PND (post-nasal drip) Bipolar 2 disorder Obesity (BMI 30-39.9) Mild intermittent asthma in adult without complication Mild mitral regurgitation Mild dilation of ascending aorta TROY (obstructive sleep apnea) Depression Right flank pain Spinal stenosis of lumbar region Hypertension Hyperlipidemia GERD (gastroesophageal reflux disease) Asthma OCD (obsessive compulsive disorder) Chest pain Thoracic aortic aneurysm without rupture Paroxysmal atrial tachycardia Nephrolithiasis Herpes simplex with unspecified complication Loss of appetite Anxiety Lightheadedness Long-term use of high-risk medication Obesity Sinusitis Eustachian tube dysfunction Otitis media Nightmares Rhinorrhea Segmental and somatic dysfunction of cervical region Segmental and somatic dysfunction of thoracic region Back sprain Epigastric abdominal pain Encounter for screening for malignant neoplasm of colon Home Medications ?Medication ?Instructions ?Recorded ?Last Taken ?Type potassium chloride 20 mEq 20 meq PO BID 10/08/2003/06 History tablet,extended release oxybutynin chloride 10 mg 10 mg PO DAILY 07/31/2105/23 History tablet,extended release 24 hr duloxetine 30 mg capsule,delayed 30 mg PO BID 07/07/23 03/06/25 History release trazodone 150 mg tablet 150 mg PO QHS 09/28/2303/06 History vibegron 75 mg tablet (Gemtesa) 75 mg PO DAILY 4 03/06/25 History ondansetron 4 mg disintegrating 4 mg PO Q8H PRN nausea and vomiting 08/16/24 Unknown History tablet pantoprazole 40 mg tablet,delayed 40 mg PO QDAY 03/06/25 History release metoprolol tartrate 25 mg tablet 25 mg PO BID #180 tab s 10/25/24 03/07/25 Rx amlodipine 5 mg tablet 5 mg PO DAILY #30 tabs 11/0203/07/25 Rx lubiprostone 24 mcg capsule 24 mcg PO BID constipation #180 01/11/25 Unknown Rx (Amitiza) caps ascorbic acid (vitamin C) 500 mg 500 mg PO QDAY Unknown History tablet Held on 03/06/25. Instructions: PT STOPPED WHEN TAKING IRON guaifenesin 1,200 mg tablet, 1,200 mg PO BID 01/23/25 03/06/25 History extended release 12 hr lisinopril 20 mg tablet 20 mg PO BID 01/23/25 History tizanidine 4 mg tablet 4 mg PO BID PRN muscle spast icity 01/23/25 Unknown History polyethylene glycol 3350 17 4 g PO ONCE #238 grams 10/23 Unknown Rx gram/dose oral powder (Miralax) Allergy/AdvReac Type Severity Reaction Status Date / Time tramadol (From Ultram) Allergy Intermediate Itching Verified 03/07/25 08:07 oxycodone (From Percocet) Allergy Mild Itching Verified 03/07/25 08:07 cephalexin (From Keflex) Allergy Rash Verified 03/07/25 08:07 flurazepam (From Dalmane) Allergy Other Verified 03/07/25 08:07 shellfish derived Allergy RASH Verified 03/07/25 08:07 divalproex sodium (From AdvReac Intermediate Other - Verified 03/07/25 08:07 Depakote) nightmares quetiapine (From Seroquel) AdvReac Mild Other - Verified 03/07/25 08:07 shaking, lightheaded and abnormal dreams meloxicam AdvReac Unknown Verified 03/07/25 08:07 Family History Father Cancer Alcoholism Hypertension Mother Heart disease H/O weight disorder Myocardial infarction Hypertension COPD (chronic obstructive pulmonary disease) Skin cancer Sister Hypertension Surgical History Hx of colonoscopy Hx of cystoscopy History of cardiac catheterization Hx of surgical procedure bladder sling removal History of bilateral carpal tunnel release H/O eye surgery H/O hand surgery History of total right knee replacement History of appendectomy H/O: hysterectomy Hx laparoscopic cholecystectomy Social History household members: none Smoking Status: Former smoker quit date: 08/29/82 pack-years: 15 second hand exposure: No alcohol intake: never substance use type: does not use Review of Systems (Anesthesia) ROS Narrative System reviewed and no additional complaints, except as documented. Physical Exam Resp clear to auscultation bilaterally 03/07/25 0837 damien BANG> Date _ Hank Dent MD Cosigner Signature: Date CC: ~ Signed [facility]05-02-2025 Telephone encounter Note* Telephone Encounter - Dodie Rubalcava MA - 12/28/2024 9:44 AM EDT Patient called in asking for records of visit and labs to be faxed to [facility] Attn Domenica at [phone] so she can get scheduled with hematology. Records faxed as requested. [facility]05-02-2025 Miscellaneous Notes* Telephone Encounter - Dodie Rubalcava MA - 12/28/2024 9:44 AM EDT Patient called in asking for records of visit and labs to be faxed to [facility] Attn Domenica at [phone] so she can get scheduled with hematology. Records faxed as requested. * Telephone Encounter - Verenice Moise RN - 12/27/2024 4:56 PM EDT Patient states that she does not see a wood die maker but she states that she has been getting her Hemoglobin monitored by Dr. Deirdre RICKETTS at [facility] dropped from 11 to 8.2. Has appointment on 01/03/25 Due to transportation patient plans to see hematology at [facility]. Patient agrees with switching Vitamin D3 to 1000u Daily. Verenice Moise RN * Telephone Encounter - Isable Ceron PA-C - 12/27/2024 2:14 PM EDT Please call patient. Inflammation markers are elevated, mildly more than previously. Also Her Blood counts were abnormal compared to previously. Does she see a wood die maker? Sjogren's syndrome can increase her risk of certain blood disorders and so I aftab her to see a wood die maker to look at these results further to see if that is a cause of her symptoms Referral has been placed, or she can go to [facility] if she prefers Also her Vitamin D is upper limit of normal. I see she is currently on the high dose Vitmain D every other week. She may want to consider stopping this and starting daily over the counter Vitamin D3 1000 international unit(s) Isabel Ceron PA-C [facility] Tele[facility] encounter Note * Telephone Encounter - Verenice Moise RN - 12/27/2024 4:56 PM EDT Patient states that she does not see a wood die maker but she states that she has been getting her Hemoglobin monitored by Dr. Gilmore [employer] at [facility] dropped from 11 to 8.2. Has appointment on 01/03/25 Due to transportation patient plans to see hematology at [facility]. Patient agrees with switching Vitamin D3 to 1000u Daily. Verenice Moise, RN [facility]05-01-2025 Telephone encounter Note* Telephone Encounter - Isabel Ceron PA-C - 12/27/2024 2:14 PM EDT Please call patient. Inflammation markers are elevated, mildly more than previously. Also Her Blood counts were abnormal compared to previously. Does she see a wood die maker? Sjogren's syndrome can increase her risk of certain blood disorders and so I aftab her to see a wood die maker to look at these results further to see if that is a cause of her symptoms Referral has been placed, or she can go to [facility] if she prefers Also her Vitamin D is upper limit of normal. I see she is currently on the high dose Vitmain D every other week. She may want to consider stopping this and starting daily over the counter Vitamin D3 1000 international unit(s) Isabel Ceron PA-C [facility]04-30-2025 NoteHNO ID: [id number] Author: ISABEL CERON PA-C Service: ? Author Type: Physician Camp Attendant Type: Progress Notes Filed: 01/02/2025 16:18 Note Text: Rheumatology CONSULTATION Date of Service: 12/26/2024 Patient: Winter Joy Medical Record: [id number] Primary Care Physician: Janet Valencia DO Last Rheumatology visit: 04/22/2023 (with Génesis Ray) Recording using [employer] software for draft documentation of the visit was discussed with the patient/authorized customer development representative; all questions welcomed and answered. Patient/authorized customer development representative agreed to proceed History of Present Illness Winter is a 69-year-old female with a history of Sjogren's syndrome, osteoarthritis, and positive rheumatoid factor, presenting for follow-up. Winter reports a current pain level of 10 (Generalized). She describes the pain as Throbbing. Increased pain since fall 3 weeks ago. She is currently taking diclofenac sodium, methylprednisolone. Winter is RF positive - 52 (04/22/2023). Her most recent FLAKITA was positive (04/21/2016). Winter reports worsening joint pain primarily from the knees down, with the right knee being more problematic. She attributes the increase in pain to a fall 3-4 weeks ago. She describes the fall as sudden, occurring after experiencing dizziness while walking in her home. She landed with full weight on her right leg, which gave out beneath her. She was unable to get up and had to wait for assistance. She was evaluated by an market research specialist who confirmed no fractures or tears, only bruising. Her R TKA was not effective Since the fall, she reports worsening pain described as burning and aching in both upper outer legs, with numbness in her hands and feet. She also has pain in her knees, bilaterally. She has a history of neuropathy in her feet and has not had recent EMG or nerve studies. She has a history of Right knee replacement and was previously receiving injections for osteoarthritis but was informed that injections are not possible in the replaced knee. She has tried gabapentin in the past without relief. She also reports chronic lower back pain due to degenerative disc disease and is under pain management care. She experiences occasional flare-ups of back pain. Winter reports symptoms consistent with Sjogren's syndrome, including dry mouth, but denies dry eyes. She manages dry mouth by drinking water. She denies any current rashes, nail changes, or eye pain. She reports recent episodes of hypotension, hypokalemia, and hypoglycemia attributed to dehydration. She has increased her water intake but experiences urinary incontinence despite taking oxybutynin and another unspecified medication. She notes a decrease in appetite and occasional diarrhea but denies hematochezia or dysuria. She expresses concern about potential depression due to recent life stressors, including family dynamics and housing issues. She denies chest pain, dyspnea, or cough and reports stable asthma symptoms. She was previously followed by pulmonology but was discharged from care. 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 Pain Evaluation 05/18/2019 05/23/2020 11/21/2020 04/23/2022 12/26/2024 Pain Evaluation Pain Score 9 3 8 8 10 Location Knee-Left Back-Lower Other: See Comment Other: See Comment Generalized Location Comment ARTHRITIS; SHOULDER LEFT SIDE PAIN FROM TIP OF MY TOE TO TOP OF MY HEAD; LT KNEE Description Aching Aching Tingling;Other: See comment;Sharp Sharp Throbbing Duration (#) 3 1 1 Duration (Timeframe) Months Days Months Months Frequency Continuous Continuous Continuous Intervention Medication Medication Patient-Entered Data None Review of Systems Review of Systems CONSTITUTION: HEENT: Positive for: Dry mouth Negative for: Mouth sores RESPIRATORY: Negative for: Cough and Shortness of breath GASTROINTESTINAL: Positive for: Diarrhea Negative for: Melena MUSCULOSKELETAL: Positive for: Arthralgias and Myalgias NEUROLOGICAL: Positive for: Numbness SKIN: Negative for: Rash and Nail changes EYES: Positive for: Eye dryness Negative for: Eye pain CARDIOVASCULAR: Negative for: Chest pain and Leg swelling GENITOURINARY: Negative for: Dysuria and Hematuria HEMATOLOGIC/LYMPHATIC: All other reviewed and negative other than HPI. 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 Rheumatology CONSULTATION Date of Service: 12/26/2024 Patient: Winter Joy Medical Record: [id number] Primary Care Physician: Janet Valencia DO Last Rheumatology visit: 04/22/2023 (with Génesis Ray) Recording using [employer] software for draft documentation of the visit was discussed with the patient/authorized customer development representative; all questions welcomed and answered. Patient/authorized customer development representative agreed to proceed History of Present Illness Winter is a 69-year-old female with a history of Sjogren's syndrome, osteoarthritis, and positive rheumatoid factor, presenting for follow-up. Winter reports a current pain level of 10 (Generalized). She describes the pain as Throbbing. Increased pain since fall 3 weeks ago. She is currently taking diclofenac sodium, methylprednisolone. Winter is RF positive - 52 (04/22/2023). Her most recent FLAKITA was positive (04/21/2016). Winter reports worsening joint pain primarily from the knees down, with the right knee being more problematic. She attributes the increase in pain to a fall 3-4 weeks ago. She describes the fall as sudden, occurring after experiencing dizziness while walking in her home. She landed with full weight on her right leg, which gave out beneath her. She was unable to get up and had to wait for assistance. She was evaluated by an market research specialist who confirmed no fractures or tears, only bruising. Her R TKA was not effective Since the fall, she reports worsening pain described as burning and aching in both upper outer legs, with numbness in her hands and feet. She also has pain in her knees, bilaterally. She has a history of neuropathy in her feet and has not had recent EMG or nerve studies. She has a history of Right knee replacement and was previously receiving injections for osteoarthritis but was informed that injections are not possible in the replaced knee. She has tried gabapentinin the past without relief. She also reports chronic lower back pain due to degenerative disc disease and is under pain management care. She experiences occasional flare-ups of back pain. Winter reports symptoms consistent with Sjogren's syndrome, including dry mouth, but denies dry eyes. She manages dry mouth by drinking water. She denies any current rashes, nail changes, or eye pain. She reports recent episodes of hypotension, hypokalemia, and hypoglycemia attributed to dehydration. She has increased her water intake but experiences urinary incontinence despite taking oxybutynin and another unspecified medication. She notes a decrease in appetite and occasional diarrhea but denies hematochezia or dysuria. She expresses concern about potential depression due to recent life stressors, including family dynamics and housing issues. She denies chest pain, dyspnea, or cough and reports stable asthma symptoms. She was previously followed by pulmonology but was discharged from care. 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 Pain Evaluation 05/18/2019 05/23/2020 11/21/2020 04/23/2022 12/26/2024 Pain Evaluation Pain Score 9 3 8 8 10 Location Knee-Left Back-Lower Other: See Comment Other: See Comment Generalized Location Comment ARTHRITIS; SHOULDER LEFT SIDE PAIN FROM TIP OF MY TOE TO TOP OF MY HEAD; LT KNEE Description Aching Aching Tingling;Other: See comment;Sharp Sharp Throbbing Duration (#) 3 1 1 Duration (Timeframe) Months Days Months Months Frequency Continuous Continuous Continuous Intervention Medication Medication Patient-Entered Data None Review of Systems Review of Systems CONSTITUTION: HEENT: Positive for: Dry mouth Negative for: Mouth sores RESPIRATORY: Negative for: Cough and Shortness of breath GASTROINTESTINAL: Positive for: Diarrhea Negative for: Melena MUSCULOSKELETAL: Positive for: Arthralgias and Myalgias NEUROLOGICAL: Positive for: Numbness SKIN: Negative for: Rash and Nail changes EYES: Positive for: Eye dryness Negative for: Eye pain CARDIOVASCULAR: Negative for: Chest pain and Leg swelling GENITOURINARY: Negative for: Dysuria and Hematuria HEMATOLOGIC/LYMPHATIC: All other reviewed and negative other than HPI. 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 Thomas PTSD (post-traumatic stress disorder) seeing counselor Sjogren syndrome (HCC) Unspecified asthma(493.90) Asthma Unspecified Past Surgical History PAST SURGICAL HISTORY Procedure Laterality Date APPENDECTOMY ARTHROSCOPY KNEE DIAGNOSTIC W/WO SYNOVIAL BX SPX Arthroscopy, knee ARTHRP KNE CONDYLE&PLATU MEDIAL&LAT COMPARTMENTS 2006 R Knee replacement, total CHOLECYSTECTOMY 1984 EXTRACTION, ERUPTED TOOTH OR EXPOSED ROOT (ELEVATION AND/OR FORCEPS REMOVAL) 2007 LAPAROSCOPY SURG CHOLECYSTECTOMY Cholecystectomy, lap NEUROPLASTY &/TRANSPOS MEDIAN NRV CARPAL TUNNE Carpal tunnel decomp PAST SURGICAL HISTORY OF eye surgery PAST SURGICAL HISTORY OF BLADDER TACKING PAST SURGICAL HISTORY OF 12/2009 left hallux exostectomy TOTAL ABDOMINAL HYSTERECT W/WO RMVL TUBE OVARY Hysterectomy, LOAN Family History FAMILY HISTORY Problem Relation Age of Onset Heart Mother OR Coronary Artery Disease Maternal Grandmother Heart Paternal Grandmother Heart Paternal Grandfather Cancer Paternal Grandmother Cancer Paternal Grandfather Cancer Father Psychiatry Son Bipolar Social History Social History Tobacco Use Smoking status: Former Current packs/day: 0.00 Average packs/day: 4.0 packs/day for 15.0 years (60.0 ttl pk-yrs) Types: Cigarettes Start date: 03/29/1968 Quit date: 03/29/1983 Years since quittin.7 Smokeless tobacco: Never Vaping Use Vaping status: Never Used Substance Use Topics Alcohol use: No Drug use: No Current Medications Current Outpatient Medications Medication Sig vibegron (GEMTESA) 75 mg tablet Take 75 mg by mouth once daily. guaiFENesin (MUCINEX) 600 mg 12 hr tablet Take 1,200 mg by mouth two times a day. metoprolol tartrate, short acting, (LOPRESSOR) 25 mg tablet Take 25 mg by mouth two times a day. lubiprostone (AMITIZA) 24 mcg capsule Take 24 mcg by mouth two times a day with meals. oxybutynin ER (DITROPAN XL) 10 mg 24 hr tablet Take 10 mg by mouth once daily. pantoprazole (PROTONIX) 40 mg grps Take 40 mg by mouth daily at 6 am. traZODone (DESYREL) 150 mg tablet Take 150 mg by mouth daily at bedtime. diclofenac (VOLTAREN) 1 % topical gel Apply 4 g to affected area four times daily. cholecalciferol, Vitamin D3, (VITAMIN D3) 50,000 unit cap capsule Take 1 capsule by mouth once eachweek. (Patient taking differently: Take 50,000 Units by mouth every other week. Every other tuesday) amLODIPine (NORVASC) 10 mg tablet Take 5 mg by mouth once daily. lisinopril (ZESTRIL, PRINIVIL) 10 mg tablet Take 10 mg by mouth once daily. (Patient taking differently: Take 10 mg by mouth two times a day.) potassium chloride ER (K-DUR, KLOR-CON) 20 mEq tablet Take 20 mEq by mouth twice daily. DULoxetine (CYMBALTA) 30 mg capsule Take 30 mg by mouth twice daily. NEW 11/20/20: 60 mg in AM 11/24/20: will change to different medication polyethylene glycol 3350 4 gram pwpk Take by mouth. (Patient not taking: Reported on 12/26/2024) Labs Latest Ref Rng & Units 11/21/2020 04/08/2022 04/22/2023 12/26/2024 CBC WBC 3.70 - 11.00 k/uL 8.22 9.06 7.48 11.43 Hemoglobin 11.5 - 15.5 g/dL 12.0 12.1 10.8 9.9 Hematocrit 36.0 - 46.0 % 37.6 39.4 35.6 33.4 Platelet Count 150 - 400 k/uL 313 349 342 435 Abs Neut (ANC) 1.45 - 7.50 k/uL 5.14 5.53 3.58 7.28 Abs Lymph 1.00 - 4.00 k/uL 2.24 2.80 2.84 2.96 Latest Ref Rng & Units 11/21/2020 04/08/2022 04/22/2023 12/26/2024 CMP Sodium 136 - 144 mmol/L 134 137 133 134 Potassium 3.7 - 5.1 mmol/L 4.6 4.9 4.5 4.3 Chloride 98 - 107 mmol/L 99 102 97 97 CO2 22 - 30 mmol/L 25 21 26 26 Glucose 74 - 99 mg/dL 80 110 66 108 BUN 7 - 21 mg/dL 22 30 18 11 Creatinine 0.58 - 0.96 mg/dL 0.76 0.84 0.74 0.62 Calcium 8.5 - 10.2 mg/dL 10.2 9.9 9.8 10.0 AST 13 - 35 U/L 17 14 14 12 ALT 7 - 38 U/L 19 14 10 7 Alkaline Phosphatase 34 - 123 U/L 97 114 103 94 Latest Ref Rng & Units 11/19/2019 11/21/2020 04/08/2022 04/22/2023 ESR, WSR WSR 0 - 20 mm/hr 17 28 46 36 Latest Ref Rng & Units 11/19/2019 11/21/2020 04/08/2022 04/22/2023 CRP CRP <0.9 mg/dL 0.8 1.0 2.5 1.8 Latest Ref Rng & Units 05/18/2016 11/04/2017 05/12/2018 C3, C4 C3 86 - 166 mg/dL 193 168 165 C4 13 - 46 mg/dL 38 30 30 Latest Ref Rng & Units 05/18/2016 CK CK 30 - 220 U/L 131 Latest Ref Rng & Units 11/19/2019 11/21/2020 04/08/2022 04/22/2023 RF and CCP Rheumatoid Factor <16 IU/mL 37 30 32 52 Latest Ref Rng & Units 03/29/2009 05/18/2016 Hepatitis Screen Hep B Core Ab, Total Negative Negative Negative Hep B Surf Ab Qual Negative Negative Negative Hep C Antibody IA Negative Negative Negative HBsAg Negative Negative Negative Latest Ref Rng & Units 04/21/2016 Antibodies FLAKITA Negative Positive FLAKITA Titer Negative Greater than 1:1280 FLAKITA Pattern Speckled DNA Antibody w/Confirmation <30 IU/mL <12 Sm Antibody <1.0 AI <0.2 Ribosomal MONUMENT MASON <1.0 AI <0.2 Chromatin Antibody <1.0 AI <0.2 SSA Antibody <1.0 AI >8.0 SSB Antibody <1.0 AI <0.2 MONUMENT MASON Antibody <1.0 AI <0.2 Scleroderma Ab, IgG <1.0 AI <0.2 Centromere Ab <1.0 AI <0.2 NATALYA-1 ANTIBODY, IGG <1.0 AI <0.2 Latest Ref Rng & Units 05/01/2015 04/19/2016 10/06/2016 10/14/2016 Urinalysis Protein, Urine Neg mg/dL neg PROTEIN UA (POCT) Neg mg/dL Negative Negative Negative Imaging Last XR Chest - Impression Only XR CHEST AP/LAT Collected: 05/18/2016 11:47 AM (Final result) Impression: IMPRESSION: No acute radiographic abnormality. Lens Cementer: CHAYITO Transcribe Date/Time: May 18 2016 12:50P... Health Maintenance Current Immunizations Reviewed on 12/21/2016 Name Date COVID-19 vaccine (MODERNA) 05/10/2024 COVID-19 vaccine, bivalent (MODERNA) 08/06/2022 COVID-19 vaccine, monovalent (MODERNA) 01/21/2022, 07/05/2021, 02/20/2021, 01/23/2021 influenza (IIV3) vaccine 05/25/2017, 05/25/2017, 05/27/2016, 05/27/2016, 06/03/2015, 06/03/2015, 08/15/2014, 08/15/2014, 07/29/2014, 07/29/2014, 09/06/2013, 09/06/2013 influenza vaccine 04/30/2009 pneumococcal (PPV23) vaccine 05/17/2013 tetanus diphtheria pertussis (Tdap) vaccine 03/07/2019, 01/29/2008 Physical Exam VITAL SIGNS: BP 144/79 Pulse 80 Resp 16 Wt 227 lb (103.0kg) SpO2 100% GENERAL APPEARANCE: Well groomed. Alert and oriented x 3. In no distress. SKIN: No rash, skin thickening, nodules, or discoloration. EYES: normal conjunctiva HENT: Normal external examination of the ears and nose, lips, oropharynx and tongue. No oropharyngeal lesions, exudate, or sores. Dry Mucous membranes. Upper dentures, no teeth on bottom. NECK: No mass or asymmetry. No LAD. RESPIRATORY: Normal respiratory effort. Clear to auscultation CARDIOVASCULAR: Heart RRR without gallop, murmur, or rub NEUROLOGIC: Sensory exam normal in bilateral lower legs MUSCULOSKELETAL EXAMINATION: Soft tissue tender points: bilateral knees Motor exam: Normal bulk and tone. Spine: Cervical spine: No visible abnormalities. + tenderness to palpation. Thoracic spine: No visible abnormalities. + tenderness to palpation. Lumbar spine: No visible abnormalities. + tenderness to palpation Upper extremities: Shoulders: No tenderness to palpation. No swelling or effusion. Elbows: Full ROM in flexion and extension. No swelling or effusion. No tenderness to palpation Wrists: Full ROM in all hightower. No swelling or synovitis. No tenderness to palpation Hands: Full ROM in flexion and extension. Full lift slab operator strength. No swelling or synovitis along the MCPs, PIPs, and DIPs. No tenderness along the MCPs, PIPs, and DIPs. Lower extremities: Hips: No tenderness to palpation along greater trochanter, gluteal fossa, or piriformis. Knees: Full ROM in flexion and extension. + Swelling and effusion and warmth in R knee with painfulROM. Left knee no warmth/swelling. R Knee s/P TKA Ankles: Full ROM in all hightower. No swelling or effusion. Impression # Sjogren's syndrome, with unspecified organ involvement ([facility]) (M35.00) # Dry mouth (R68.2) Diagnosed with Sjogren's syndrome by Dr. Carlton. Exhibits symptoms of dry mouth, managed by increased water intake. No current use of medications to stimulate saliva production. - Recommended sugar-free lozenges and Biotene mouth rinses to alleviate dry mouth symptoms. - Ordered rheumatology monitoring labs. - Follow-up in one year to monitor disease progression and symptom management. # Primary osteoarthritis of left knee (M17.12) Moderate to severe osteoarthritis of the knees. Recent fall exacerbated symptoms, with increased swelling and warmth in the left knee. Previous knee replacement noted, limiting options for intra-articular injections. - Advised to maintain communication with market research specialist if symptoms do not improve. - Continue use of Voltaren gel as prescribed. # History of vitamin D deficiency (Z86.39) Vitamin D deficiency managed with supplementation. - Continue Vitamin D supplementation every other Tuesday. - Check Level with labs # Radiculopathy, lumbar region (M54.16) Pateint reports weakness and aching pain in bilateral upper legs likely from lumbar radiculopathy. Encouraged patient to follow up with pain management. -If weakness in upper legs persists, follow up with PCP. Discuss with primary care physician the possibility of a repeat EMG or nerve conduction study to assess current nerve function. - Continue follow-up with automobile painter. Plan As Explained to Patient via After visit Summary Orders this visit: Office Visit on 12/26/24 C-REACTIVE PROTEIN SEDIMENTATION RATE, WESTERGREN COMPLETE BLOOD COUNT AND DIFFERENTIAL COMPREHENSIVE METABOLIC PANEL RHEUMATOID FACTOR VITAMIN D 25 HYDROXY vibegron (GEMTESA) 75 mg tablet guaiFENesin (MUCINEX) 600 mg 12 hr tablet metoprolol tartrate, short acting, (LOPRESSOR) 25 mg tablet lubiprostone (AMITIZA) 24 mcg capsule oxybutynin ER (DITROPAN XL) 10 mg 24 hr tablet pantoprazole (PROTONIX) 40 mg grps Before leaving, complete the rheumatology monitoring blood work. The lab is located on the first floor--go straight out and turn left as directed. Maintain communication with your orthopedist regarding your swollen knee. If the pain, swelling, orwarmth worsens, please contact them. If you notice increased numbness, tingling, or leg weakness, discuss with your primary care provider about whether a nerve study should be performed. Consider using a cane to help with balance and to reduce the risk of falling, especially since you experienced a fall recently. Continue with your regular routine and follow your established care plan; your next in-person follow-up is scheduled for one year from now. Follow up 1 year I spent a total of 50 minutes on the date of the service which included preparing to see the patient, [id number] patient care, completing clinical documentation, obtaining and/or reviewing separately obtained history, performing a medically appropriate examination, and counseling and educating the patient/family/caregiver. 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 March 07, 2025 7:37am Iron deficiency anemia chronic Ju ly 2024 1:24pm [facility] Work Phone: [phone]) [phone] Evaluation note* Diagnosis Onset Date Resolution Status Admit Date Right knee sprain acute November 282024 1:31pm S/P total hip arthroplasty acute December 19, 2024 1:31pm Anemia acute January 03, 2025 9:36am Constipation acute January 03 9:36am Iron deficiency anemia chronic Ma y 2024 9:10am 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 Janet Valencia, DO Status:REG SDC Y Race: C Location: [place] [address] Anesthesia Postop Eval I Sum Postop Eval Completion status Anesthesia document: Postop Eval 1 completed: Yes Anesthesia Postop Eval I Summary Anesthesia Postop Eval I Summary: Anesthesia Postop Eval I: Assessment Summary Airway patent Yes 11/21/24 14:53 [email or web address] Spontaneous unlabored Yes 11/21/24 14:53 [email or web address] respirations Mental status Asleep 11/21/24 14:53 [email or web address] nausea No 11/21/24 14:53 [email or web address] Vomiting No 11/21/24 14:53 [email or web address] Anesthesia Postop Eval I: Fluid Summary Crystalloid volume administer 50 11/21/24 14:53 [email or web address] (ml) Colloids volume administered ( ml) Blood Product volume administered (ml) Total IV fluid infused 50 11/21/24 14:53 [email or web address] Anesthesia Postop Eval I: Summary Notes Anesthesia Complication No 11/21/24 14:53 [email or web address] Anesthesia Complication Comment: Post-operative progress note Anesthesia: Postop Eval II Evaluation Mental status: Awake Pain Level: 0 nausea: No Vomiting: No 11/21/24 1514 > Date _ [facility]: Date CC: ~ Signed [facility]03-26-2025 Consult note Author Roby Thomas [facility] Note Date/Time November 21, 2024 12: 59pm [facility] Medical Records Department [address] [place] [address] Pre-Anesthesia Evaluation 11/21/24 1258 MR#: [id number] Acct: [id number] Name: WINTER JOY Rep #:[id number] : 1955 69 From: Roby Thomas MD PCP: Dr. Janet Valencia, DO Status:REG SDC Y Race: C Location: [place] [address] ASA Classification* ASA Classification ASA Classification: 2 Assessment & Plan Anesthesia* Anesthesia Assessment Anesthesia Assessment: Discussed sedation and/or anesthesia options, risks, benefits, and alternatives with patient/parents/legal guardian/POA. Questions invited. The patient/parents/legal guardian/POA seems to understand and agrees to proceedwith anesthesia plan. Reviewed the physical assessment, medical history, allergy history and patient home medications list prior to surgery/procedure/anesthetic and documented any changes. Performed airway and anesthesia risk assessments. Anesthesia Type Anesthesia Type: MAC Anesthesia Focused Assessment* Airway Assessment Mouth opens: >3 cm Mallampati Score: II Focused Labs Anesthesia Preop lab: CBC WBC 9.5 K/mm3 (4.4-11.0) 10/25/24 14:10/25/24 RBC 4.08 M/mm3 (4.2-5.4) L 10/25/24 14:10/25/24 Hgb 8.9 g/dL (12.0-15.0) L 10/25/24 14:10/25/24 Hct 31.5 % (37-47) L 10/25/24 14:10/25/24 Plt Count 395 K/mm3 (150-450) 10/25/24 14:29 10/25/24 CHEMISTRY Potassium 4.2 mmol/L (3.3-5.1) 10/25/24 14:10/25/24 Sodium 132 mmol/L (133-145) L 10/25/24 14:10/25/24 Magnesium 2.1 mg/dL (1.6-2.6) 06/20/23 14:57 06/20/23 BUN 16 mg/dL (4-19) 10/25/24 14:10/25/24 Creatinine 0.6 mg/dL (0.6-1.0) 10/25/24 14:10/25/24 Glucose 87 mg/dL (70-99) 10/25/24 14:10/25/24 TSH 1.800 uIU/mL (0.300-4.200) 10/25/24 14:09/30 COAG PT 12.9 SECONDS (11.7-14.9) 11/14/15 11:30 Pre-Assessment Diagnosis/Proposed Procedure Planned Operative Procedure(s): EGD, COLONOSCOPY Anesthesia History 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 When Was Last Pacemaker Check QUESTION #4 FULL TEXT: You/Your Family Experience fever (hyperthermia) with Anesthesia Last Oral Intake Last Oral intake: Last Oral Intake NPO since Meds taken in AM with sips of water? 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 Female Yes 11/16/24 10:46 HX of Motion Sickness No 11/16/24 10:46 HX of N/V After Surgery No 11/16/24 10:46 Non-Smoker Yes 11/16/24 10:46 Duration of Surgery greater No 11/16/24 10:46 than 60 minutes Number of Risk Factors 2 11/16/24 10:46 PONV Score Moderate Risk 11/16/24 10:46 Height & Weight Height & Weight: Anesthesia: Height & Weight Height 5 ft 4 in 10/25/24 07:48 Respiratory Assessment Respiratory Assessment - fire captain: Respiratory Tract Infection Hx - fire captain Hx Respiratory Tract Infection No 11/16/24 10:46 STOP Sleep Apnea STOP Sleep Apnea - fire captain: STOP Sleep Apnea - fire captain Hx Hypertension Yes: CONTROLLED WITH MED 11/16/24 10:46 Hx Sleep Apnea Yes 11/16/24 10:46 CPAP Yes: NON COMPLIANT 11/16/24 10:46 BIPAP No 11/16/24 10:46 Do you snore loudly (louder than talking or can be heard Do you often feel tired/ fatigued/ sleepy during daytime? Has anyone observed you stop breathing during sleep? STOP Results Positive 11/16/24 10:46 QUESTION #5 FULL TEXT : Do you snore loudly (louder than talking or can be heard through closed doors)? 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 Specify any problems Hx of Preganancy in last 3 No 11/16/24 10:46 Months Nurse Filling Out Transfusion EHTULIA 11/16/24 10:46 & Questions: Date: 11/16/24 11/16/24 10:46 Time: 10:54 11/16/24 10:46 Patient unable to answer at this time (ie. confused, unrespo /Reproduction History /Reproductive History - fire captain: /Reproductive Hx- fire captain Hx Now No 11/16/24 10:46 Gestational Age (in weeks): EDC: Hx Hx [facility] Cardiology follow-up encounter History of Holter monitoring Pain FAITH (dyspnea on exertion) Chest pressure Wears glasses Wears dentures CPAP (continuous positive airway pressure) dependence Arthritis Osteoarthritis of left knee Left knee pain Stress incontinence Difficulty chewing History of IBS Former smoker Neuropathy Sjogrens syndrome Leg cramps History of edema History of echocardiogram History of stress test History of irregular heartbeat Chronic low back pain Sensory polyneuropathy Elevated hemoglobin A1c Rheumatoid arthritis TROY (obstructive sleep apnea) Urinary incontinence, urge Urinary urgency Urinary frequency PND (post-nasal drip) Bipolar 2 disorder Obesity (BMI 30-39.9) Mild intermittent asthma in adult without complication Mild mitral regurgitation Mild dilation of ascending aorta TROY (obstructive sleep apnea) Depression Right flank pain Spinal stenosis of lumbar region Hypertension Hyperlipidemia GERD (gastroesophageal reflux disease) Asthma OCD (obsessive compulsive disorder) Chest pain Thoracic aortic aneurysm without rupture Paroxysmal atrial tachycardia Nephrolithiasis Herpes simplex with unspecified complication Loss of appetite Anxiety Lightheadedness Long-term use of high-risk medication Obesity Sinusitis Eustachian tube dysfunction Otitis media Nightmares Rhinorrhea Segmental and somatic dysfunction of cervical region Segmental and somatic dysfunction of thoracic region Back sprain Epigastric abdominal pain Encounter for screening for malignant neoplasm of colon Home Medications ?Medication ?Instructions ?Recorded ?Last Taken ?Type olanzapine 10 mg tablet 10 mg PO QHS 10/08/20 Unknow n History potassium chloride 20 mEq 20 meq PO BID 10/08/20 Unkno wn History tablet,extended release acetaminophen 500 mg tablet 500 mg PO Q6H PRN pain #30 tabs 03/24/21 Unknown Rx oxybutynin chloride 10 mg 10 mg PO DAILY 07/31/21 Unkn own History tablet,extended release 24 hr duloxetine 30 mg capsule,delayed 30 mg PO BID 07/07/23 Unknown History release trazodone 150 mg tablet 150 mg PO QHS 09/28/23 Unkno wn History vibegron 75 mg tablet (Gemtesa) 75 mg PO DAILY 4 Unknown History aspirin 81 mg tablet,delayed 81 mg PO DAILY 11/24/23 0 11/07/24 History release (Adult Aspirin Regimen) cholecalciferol (vitamin D3) 1,250 1,250 mcg PO .QOTU 04/04/24 Unknown History mcg (50,000 unit) capsule lisinopril 20 mg tablet 10 mg PO BID 08/16/24 Unknow n History lubiprostone 24 mcg capsule 24 mcg PO BID constipation #180 08/16/24 08/30/24 06:30 Rx (Amitiza) caps ondansetron 4 mg disintegrating 4 mg PO Q8H PRN nausea and vomiting 08/16/24 Unknown History tablet pantoprazole 40 mg tablet,delayed 40 mg PO QDAY 08/30/24 06:30 History release metoprolol tartrate 25 mg tablet 25 mg PO BID #180 tab s 10/25/24 11/21/24 07:15 Rx amlodipine 5 mg tablet 5 mg PO DAILY #30 tabs 11/0211/21/24 07:15 Rx Allergy/AdvReac Type Severity Reaction Status Date / Time tramadol (From Ultram) Allergy Intermediate Itching Verified 11/21/24 12:55 oxycodone (From Percocet) Allergy Mild Itching Verified 11/21/24 12:55 cephalexin (From Keflex) Allergy Rash Verified 11/21/24 12:55 flurazepam (From Dalmane) Allergy Other Verified 11/21/24 12:55 shellfish derived Allergy RASH Verified 11/21/24 12:55 divalproex sodium (From AdvReac Intermediate Other - Verified 11/21/24 12:55 Depakote) nightmares quetiapine (From Seroquel) AdvReac Mild Other - Verified 11/21/24 12:55 shaking, lightheaded and abnormal dreams meloxicam AdvReac Unknown Verified 11/21/24 12:55 Family History Father Cancer Alcoholism Hypertension Mother Heart disease H/O weight disorder Myocardial infarction Hypertension COPD (chronic obstructive pulmonary disease) Skin cancer Sister Hypertension Surgical History Hx of cystoscopy History of cardiac catheterization Hx of surgical procedure bladder sling removal History of bilateral carpal tunnel release H/O eye surgery H/O hand surgery History of total right knee replacement History of appendectomy H/O: hysterectomy Hx laparoscopic cholecystectomy Social History household members: none Smoking Status: Former smoker quit date: 08/29/82 pack-years: 15 second hand exposure: No alcohol intake: never substance use type: does not use Review of Systems (Anesthesia) ROS Narrative System reviewed and no additional complaints, except as documented. 11/21/24 1259 <Electronically signed by Roby Thomas MD > Date _ Roby Thomas MD Cosigner Signature: Date CC: ~ Signed [facility] Work Phone: 1(421) 864-831803-26-2025 Procedure note [facility] Medical Records Department [address] [place] [id number] Colonoscopy Report MR#: [id number] Acct: [id number] Name: WINTER JOY Rep #:[id number] : 1955 69 From: Tato Posey DO PCP: Dr. Janet Valencia DO [place] [facility] [place] Name: Winter Joy Procedure Date: 11/21/2024 2:23 PM Date of : 1955 Age: 69 Procedure: Colonoscopy Indications: Iron deficiency anemia Providers: Tato Posey DO Referring MD: Janet Valencia Medicines: Monitored Anesthesia Care Patient Profile: This is a 69 year old female. Refer to note in patient chart for documentation of history and physical. Patient has symptoms of chronic epigastric abdominal pain, chronic dyspepsia and chronic nausea. Last Colonoscopy: 1 year ago. Complications: No immediate complications. Procedure: Pre-Anesthesia Assessment: - Prior to the procedure, a History and Physical was performed, and patient medications and allergies were reviewed. The patient is competent. The risks and benefits of the procedure and the sedation options and risks were discussed with the patient. All questions were answered and informed consent was obtained. Patient identification and proposed procedure were verified by the physician in the pre-procedure area. Mental Status Examination: alert and oriented. Airway Examination: normal oropharyngeal airway and neck mobility. Respiratory Examination: clear to auscultation. CV Examination: normal. ASA Grade Assessment: II - A patient with mild systemic disease. After reviewing the risks and benefits, the patient was deemed in satisfactory condition to undergo the procedure. The anesthesia plan was to use monitored anesthesia care (MAC). Immediately prior to administration of medications, the patient was re-assessed for adequacy to receive sedatives. The heart rate, respiratory rate, oxygen saturations, blood pressure, adequacy of pulmonary ventilation, and response to care were monitored throughout the procedure. The physical status of the patient was re-assessed after the procedure. After I obtained informed consent, the scope was passed under direct vision. Throughout the procedure, the patient's blood pressure, pulse, and oxygen saturations were monitored continuously. The Colonoscope was introduced through the anus and advanced to the cecum, identified by appendiceal orifice and ileocecal valve. The colonoscopy was performed without difficulty. The patient tolerated the procedure well. The quality of the bowel preparation was poor. The ileocecal valve, appendiceal orifice, and rectum were photographed. Scope In: 2:24:04 PM Scope Withdrawal Time 0 hours 5 minutes 35 seconds Scope Out: 2:40:30 PM Total Procedure Duration Time 0 hours 16 minutes 26 seconds Findings: The perianal and digital rectal examinations were normal. Multiple small-mouthed diverticula were found in the recto-sigmoid colon and sigmoid colon. Stool was found in the rectum, in the recto-sigmoid colon, in the sigmoid colon, in the descending colon, in the transverse colon, at the hepatic flexure, in the ascending colon, in the cecum and at the appendiceal orifice. Impression: - Preparation of the colon was poor. - Diverticulosis in the recto-sigmoid colon and in the sigmoid colon. - Stool in the rectum, in the recto-sigmoid colon, in the sigmoid colon, in the descending colon, in the transverse colon, at the hepatic flexure, in the ascending colon, in the cecum and at the appendiceal orifice. - No specimens collected. Recommendation: - Discharge patient to home. - Resume previous diet. - Continue present medications. - Repeat colonoscopy. Procedure Code(s): --- Professional --- 88251, Colonoscopy, flexible; diagnostic, including collection of specimen(s) by brushing or washing, when performed (separate procedure) CPT copyright 2021 [employer]. All rights reserved. The codes documented in this report are preliminary and upon pca assisted living review may be revised to meet current compliance requirements. Tato Posey DO 11/21/2024 2:54:03 PM This report has been signed electronically. Number of Addenda: 0 Note Initiated On: 11/21/2024 2:23 PM 11/21/24 1454 Date _ Tato Posey DO Cosigner Signature: Date (if indicated) CC: Dr. Janet Valencia DO; Tato Posey DO ~ Date Dictated: 11/21/24 1423 Date Transcribed: Lens Cementer: RF Signed [facility]03-26-2025 Procedure note [facility] Medical Records Department [address] [place] [address] Operative Report - CC Letter MR#: [id number] Acct: [id number] Name: WINTER JOY Rep #:[id number] : 1955 69 From: Tato Posey DO PCP: Dr. Janet Valencia DO [place] [facility] [place]21[place]24 Janet Valencia [address] [facility] [place] [address] [place] [address] Re : Colonoscopy procedure for Winter Nelson Dear Dr. Valencia This procedure was performed on Thursday, November 21, 2024. My impressions and recommendations are as follows: Impressions : - Preparation of the colon was poor. - Diverticulosis in the recto-sigmoid colon and in the sigmoid colon. - Stool in the rectum, in the recto-sigmoid colon, in the sigmoid colon, in the descending colon, in the transverse colon, at the hepatic flexure, in the ascending colon, in the cecum and at the appendiceal orifice. - No specimens collected. Recommendations : - Discharge patient to home. - Resume previous diet. - Continue present medications. - Repeat colonoscopy. My findings are described in the full procedure note, which is enclosed. If I can be of further assistance, please feel free to contact me at . Sincerely, Tato Posey DO 11/21/2024 2:54:03 PM This report has been signed electronically. 11/21/24 1454 Date _ Tato Posey DO Cosigner Signature: Date (if indicated) CC: [employer]-C Clau Mcclain; Dr. Janet Valencia DO; Tato Posey DO ~ Date Dictated: 11/21/24 1423 Date Transcribed: Lens Cementer: RF Signed [facility]03-26-2025 Consult note [facility] Medical Records Department [address] [place] [address] Anesthesia Postop Eval I 11/21/24 1452 MR#: [id number] Acct: [id number] Name: WINTER JOY Merritt Rep #:[id number] : 1955 69 From: Jayy Torres PCP: Dr. Janet Valencia DO Status:REG SDC Y Race: C Location: [place] [address] Anesthesia: Postop Eval I Current Vital Signs Temperature: 97.7 F Pulse Rate: 70 Blood Pressure: 122/71 Respiratory Rate: 16 Pulse Ox: 97 Oxygen Delivery Method: Room Air Assessment Airway patent: Yes Spontaneous unlabored respirations: Yes Mental status: Asleep nausea: No Vomiting: No Anesthesia Complication: No Fluid Hydration Crystalloid volume administer (ml): 50 Total IV fluid infused: 50 Progress Note Anesthesia document: Postop Eval 1 completed: Yes 11/21/24 1453 > Date _ Jayy Davenport Signature: Date CC: ~ Signed [facility]03-26-2025 Procedure note [facility] Medical Records Department [address] [place] [address] EGD Report MR#: [id number] Acct: [id number] Name: WINTER JOY Rep #:[id number] : 1955 69 From: Tato Posey DO PCP: Dr. Janet Valencia DO [place] [facility] Patient Name: Winter Joy Procedure Date: 11/21/2024 2:08 PM Date of : 1955 Age: 69 Procedure: Upper GI endoscopy Indications: Epigastric abdominal pain, Suspected upper gastrointestinal bleeding in patient with unexplained iron deficiency anemia Providers: Tato Posey DO Referring MD: Janet Valencia Medicines: Monitored Anesthesia Care Patient Profile: This is a 69 year old female. Refer to note in patient chart for documentation of history and physical. Patient has symptoms of chronic epigastric abdominal pain, chronic dyspepsia and chronic nausea. Complications: No immediate complications. Procedure: Pre-Anesthesia Assessment: - Prior to the procedure, a History and Physical was performed, and patient medications and allergies were reviewed. The patient is competent. The risks and benefits of the procedure and the sedation options and risks were discussed with the patient. All questions were answered and informed consent was obtained. Patient identification and proposed procedure were verified by the physician in the pre-procedure area. Mental Status Examination: alert and oriented. Airway Examination: normal oropharyngeal airway and neck mobility. Respiratory Examination: clear to auscultation. CV Examination: normal. ASA Grade Assessment: II - A patient with mild systemic disease. After reviewing the risks and benefits, the patient was deemed in satisfactory condition to undergo the procedure. The anesthesia plan was to use monitored anesthesia care (MAC). Immediately prior to administration of medications, the patient was re-assessed for adequacy to receive sedatives. The heart rate, respiratory rate, oxygen saturations, blood pressure, adequacy of pulmonary ventilation, and response to care were monitored throughout the procedure. The physical status of the patient was re-assessed after the procedure. After obtaining informed consent, the endoscope was passed under direct vision. Throughout the procedure, the patient's blood pressure, pulse, and oxygen saturations were monitored continuously. The Colonoscope was introduced through the mouth, and advanced to the third part of the duodenum. Small bowel enteroscopy was deemed necessary. The upper GI endoscopy was accomplished without difficulty. The patient tolerated the procedure well. Scope In: 2:19:34 PM Scope Out: 2:22:22 PM Total Procedure Duration Time 0 hours 2 minutes 48 seconds Findings: The examined esophagus was normal. A small hiatal hernia was present. Patchy mildly erythematous mucosa without bleeding was found in the gastric body. Biopsies were taken with a cold forceps for histology. Verification of patient identification for the specimen was done. Estimated blood loss was minimal. Biopsies were taken with a cold forceps for Helicobacter pylori testing. Verification of patient identification for the specimen was done. Estimated blood loss was minimal. No gross lesions were noted in the third portion of the duodenum. Impression: - Normal esophagus. - Small hiatal hernia. - Erythematous mucosa in the gastric body. Biopsied. - No gross lesions in the third portion of the duodenum. Recommendation: - Discharge patient to home. - Resume previous diet. - Continue present medications. - Await pathology results. Procedure Code(s): --- Professional --- 98582, Small intestinal endoscopy, enteroscopy beyond second portion of duodenum, not including ileum; with biopsy, single or multiple CPT copyright 2021 [employer]. All rights reserved. The codes documented in this report are preliminary and upon pca assisted living review may be revised to meet current compliance requirements. Tato Posey DO 11/21/2024 2:51:09 PM This report has been signed electronically. Number of Addenda: 0 Note Initiated On: 11/21/2024 2:08 PM 11/21/24 1451 Date _ Tato Posey DO Cosigner Signature: Date (if indicated) CC: Dr. Janet Valencia DO; Tato Posey DO ~ Date Dictated: 11/21/24 1408 Date Transcribed: Lens Cementer: RF Signed [facility]03-26-2025 Procedure note [facility] Medical Records Department [address] [place] [address] Operative Report - CC Letter MR#: [id number] Acct: [id number] Name: WINTER JOY Rep #:[id number] : 1955 69 From: Tato Posey DO PCP: Dr. Janet Valencia DO Status:REG SD 11/21/2024 Janet Valencia [address] [place] [address] [place] [address] Re : Upper GI endoscopy procedure for Winter Joy Dear Dr. Valencai This procedure was performed on Thursday, November 21, 2024. My impressions and recommendations are as follows: Impressions : - Normal esophagus. - Small hiatal hernia. - Erythematous mucosa in the gastric body. Biopsied. - No gross lesions in the third portion of the duodenum. Recommendations : - Discharge patient to home. - Resume previous diet. - Continue present medications. - Await pathology results. My findings are described in the full procedure note, which is enclosed. If I can be of further assistance, please feel free to contact me at . Sincerely, Tato Posey DO 11/21/2024 2:51:09 PM This report has been signed electronically. 11/21/24 1451 Date _ Tato Posey DO Cosigner Signature: Date (if indicated) CC: KRISTINE Mcclain; Dr. Janet Valencia, DO; Tato Posey, DO ~ Date Dictated: 11/21/24 1408 Date Transcribed: Lens Cementer: ZOHRA Signed [facility]03-26-2025 Evaluation note* Diagnosis Onset Date Resolution Status Admit Date Anemia acute November 21 12:21pm Encounter for screening for malignant neoplasm of colon acute Pel[place] h 2024 12:21pm Right knee sprain acute November 282024 1:31pm S/P total hip arthroplasty acute December 19, 2024 1:31pm Anemia acute January 03, 2025 9:36am Constipation acute January 03 9:36am Iron deficiency anemia chronic Ma y 2024 9:10am 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 December 282024 9:10am Iron deficiency anemia chronic Ju ly 2024 7:37am 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 March 07, 2025 7:37am [facility] Work Phone: 1(562) 209-979003-26-2025 Evaluation note* Diagnosis Onset Date Resolution Status Admit Date Anemia acute November 21 12:21pm Encounter for screening for malignant neoplasm of colon acute Pel[place] h 2024 12:21pm Right knee sprain acute November 282024 1:31pm S/P total hip arthroplasty acute December 19, 2024 1:31pm Anemia acute January 03, 2025 9:36am Constipation acute January 03 9:36am Iron deficiency anemia chronic Ma y 2024 9:10am 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 December 282024 9:10am Iron deficiency anemia chronic Ju ly 2024 7:37am 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 March 07, 2025 7:37am Iron deficiency anemia chronic Ju ly 2024 1:24pm [facility] [employer] Work Phone: 1(455) 293-274203-26-2025 History and physical note [facility] Medical Records Department [address] [place] [address] History & Physical Exam 11/21/24 1332 MR#: [id number] Acct: [id number] Name: WINTER JOY Rep #:[id number] : 1955 69 From: Tato Friend DO PCP: Dr. Janet Valencia, DO Status[place] [facility] Location: [address] [facility] - General General Date of Admission: 11/21/24 Date of Service: 11/21/24 Chief Complaint: surveillance colonoscopy HPI Narrative WINTER JOY, is a 69 F who presents today for colonoscopy because of history of adenomatous polyps. OV 08/16/2024 w/ Karen, DISTRICT MEDICAL EXAMINER 69y/o female presents for consultation with complaints of constipation and RLQ pain. CT A&P with contrast was completed 04/24/2024 revealed liver steatosis. Shereports a long history of constipation currently failing Miralax and Linzess, and previously failed Lactulose. She reports going up to aweek without a bowel movement. Denies any bleeding or weight loss. She is on several medications whi ch can contribute to constipation (gabapentin, oxybutynin, olanzapine) and has a spinal cord stimulator. We have discussed the importance of a high fiber diet. She will discontinue Linzess and Miralax and start Amitiza BID. I have scheduled her for an ARM and colonoscopy. In terms of steatosis noted on prior CT, I have ordered labs and Elastography. Patient Instructions: Discontinue Linzess Discontinue Miralax Schedule Anorectal Manometry at [facility] Start Amitiza 24mcg twice daily Continue 5 prunes daily with good water intake (at least 64 ounces a day) Schedule Fibroscan at [facility] Schedule Colonoscopy - You may be a candidate to enroll in colon cancer researchstudy with [facility] Call to schedule Anorectal Manometry Dr. Pelaez Buford Urogyne[facility] Dr. Leandro Pelaez [address] [facility] [place] [address] P: [phone] F: [phone] --- LABS 08/16/2024 HGB 9.8, CMP unremarkable 04/24/2024 HGB 10.4 11/25/2023 HGB 10.9 12/02/2022 HGB 11.4 HAV Total Ab: 08/16/2024 negative HBVsA08/16/2024 negative HBVsAb: 08/16/2024 negative HBV Core Ab Total: 08/16/2024 negative HCV Ab: 08/16/2024 negative ELF: 08/16/2024 (HIGH) 9.97 - high probability of advanced fibrosis or cirrhosis FibroScan: was referred to [facility] - states it was scheduled for today and our office told her to cancel this ARM - reports she had this completed this month with Dr. Benigno VERMA 08/30/2024 - tubular adenoma ---REPEAT COLON IN 6 MONTHS DUE TO POOR PREP - Preparation of the colon was fair. - Diverticulosis in the recto-sigmoid colon and in the sigmoid colon. - One 12 mm polyp in the sigmoid colon, removed with a hot snare. Resected and retrieved. - Stool in the recto-sigmoid colon, in the sigmoid colon, in the descending colon, in the transverse colon, in the ascending colon and in the cecum. CONSTIPATION - reports constipation has been well managed - she is on Amitiza 24mcg BID - denies any pain or bleeding - she did okay with the bowel prep - denies any N/V - she is agreeable to repeating colon in 6 months ANEMIA - denies any epistaxis - denies any BRBPR - denies any melena - denies any HB - she is on pantoprazole 40mg daily <6months - this replaced prilosec which she had been on for awhile and was failing therapy - she does c/o belching - denies any N/V - dysphagia in the upper esophagus - known h/o Sjogren's - denies any weight loss - denies any blood donation - she is not a vegetarian - seldom consumption of red meat - denies any kidney disease MASLD - going to support group to help with weight loss [facility] Medical History Cardiology follow-up encounter History of Holter monitoring Pain FAITH (dyspnea on exertion) Chest pressure Wears glasses Wears dentures CPAP (continuous positive airway pressure) dependence Arthritis Osteoarthritis of left knee Left knee pain Stress incontinence Difficulty chewing History of IBS Former smoker Neuropathy Sjogrens syndrome Leg cramps History of edema History of echocardiogram History of stress test History of irregular heartbeat Chronic low back pain Sensory polyneuropathy Elevated hemoglobin A1c Rheumatoid arthritis TROY (obstructive sleep apnea) Urinary incontinence, urge Urinary urgency Urinary frequency PND (post-nasal drip) Bipolar 2 disorder Obesity (BMI 30-39.9) Mild intermittent asthma in adult without complication Mild mitral regurgitation Mild dilation of ascending aorta TROY (obstructive sleep apnea) Depression Right flank pain Spinal stenosis of lumbar region Hypertension Hyperlipidemia GERD (gastroesophageal reflux disease) Asthma OCD (obsessive compulsive disorder) Chest pain Thoracic aortic aneurysm without rupture Paroxysmal atrial tachycardia Nephrolithiasis Herpes simplex with unspecified complication Loss of appetite Anxiety Lightheadedness Long-term use of high-risk medication Obesity Sinusitis Eustachian tube dysfunction Otitis media Nightmares Rhinorrhea Segmental and somatic dysfunction of cervical region Segmental and somatic dysfunction of thoracic region Back sprain Epigastric abdominal pain Encounter for screening for malignant neoplasm of colon Home Medications ?Medication ?Instructions ?Recorded ?Last Taken ?Type olanzapine 10 mg tablet 10 mg PO QHS 10/08/20 Unknow n History potassium chloride 20 mEq 20 meq PO BID 10/08/20 Unkno wn History tablet,extended release acetaminophen 500 mg tablet 500 mg PO Q6H PRN pain #30 tabs 03/24/21 Unknown Rx oxybutynin chloride 10 mg 10 mg PO DAILY 07/31/21 Unkn own History tablet,extended release 24 hr duloxetine 30 mg capsule,delayed 30 mg PO BID 07/07/23 Unknown History release trazodone 150 mg tablet 150 mg PO QHS 09/28/23 Unkno wn History vibegron 75 mg tablet (Gemtesa) 75 mg PO DAILY 4 Unknown History aspirin 81 mg tablet,delayed 81 mg PO DAILY 11/24/23 0 11/07/24 History release (Adult Aspirin Regimen) cholecalciferol (vitamin D3) 1,250 1,250 mcg PO .QOTU 04/04/24 Unknown History mcg (50,000 unit) capsule lisinopril 20 mg tablet 10 mg PO BID 08/16/24 Unknow n History lubiprostone 24 mcg capsule 24 mcg PO BID constipation #180 08/16/24 08/30/24 06:30 Rx (Amitiza) caps ondansetron 4 mg disintegrating 4 mg PO Q8H PRN nausea and vomiting 08/16/24 Unknown History tablet pantoprazole 40 mg tablet,delayed 40 mg PO QDAY 08/30/24 06:30 History release metoprolol tartrate 25 mg tablet 25 mg PO BID #180 tab s 10/25/24 11/21/24 07:15 Rx amlodipine 5 mg tablet 5 mg PO DAILY #30 tabs 11/0211/21/24 07:15 Rx Allergy/AdvReac Type Severity Reaction Status Date / Time tramadol (From Ultram) Allergy Intermediate Itching Verified 11/21/24 12:55 oxycodone (From Percocet) Allergy Mild Itching Verified 11/21/24 12:55 cephalexin (From Keflex) Allergy Rash Verified 11/21/24 12:55 flurazepam (From Dalmane) Allergy Other Verified 11/21/24 12:55 shellfish derived Allergy RASH Verified 11/21/24 12:55 divalproex sodium (From AdvReac Intermediate Other - Verified 11/21/24 12:55 Depakote) nightmares quetiapine (From Seroquel) AdvReac Mild Other - Verified 11/21/24 12:55 shaking, lightheaded and abnormal dreams meloxicam AdvReac Unknown Verified 11/21/24 12:55 Family History Father Cancer Alcoholism Hypertension Mother Heart disease H/O weight disorder Myocardial infarction Hypertension COPD (chronic obstructive pulmonary disease) Skin cancer Sister Hypertension Surgical History Hx of cystoscopy History of cardiac catheterization Hx of surgical procedure bladder sling removal History of bilateral carpal tunnel release H/O eye surgery H/O hand surgery History of total right knee replacement History of appendectomy H/O: hysterectomy Hx laparoscopic cholecystectomy Social History household members: none Smoking Status: Former smoker quit date: 08/29/82 pack-years: 15 second hand exposure: No alcohol intake: never substance use type: does not use ROS Constitutional Constitutional: Denies fatigue, fever(s), poor appetite, weight gain or weight loss Gastrointestinal Gastrointestinal: Denies belching, bloating, change in bowel habits, change in stool character, chewing difficulty, coffee ground emesis, constipation, cramping, diarrhea, dyspepsia, dysphagia, earlysatiety, excessive flatus, fecalincontinence, heartburn, hematemesis, hematochezia, hemorrhoids, loose stools, melena, nausea, odynophagia, rectal bleeding, tenesmus, vomiting or weight changes Vital Signs Vital Signs Vital Signs: 11/21/24 13:02 11/21/24 13:02 Temperature 97.9 F Temperature Source Temporal Pulse Rate 78 Respiratory Rate 16 Respiratory Pattern Normal Blood Pressure 138/90 H Blood Pressure Mean 106 Blood Pressure Source Monitor Blood Pressure Position Semi-Fowlers Blood Pressure Location Right Arm Pulse Ox 99 Oxygen Delivery Method Room Air Weight Weight: 222 lb 10.67 oz Body Mass Index (BMI) 38.2 Physical Exam Const alert, oriented x3, no apparent distress and healthy appearing General Appearance: cooperative GI normal to inspection, nondistended, normoactive bowel sounds, soft to palpation,non-tender and non-distended Percussion: normal to percussion Rectal Exam: deferred Results Lab / Micro Data 11/21/24 12:27 Assessment & Plan Assessment/Plan (1) Anemia: (2) Encounter for screening for malignant neoplasm of colon: PLAN: Assessment and Plan Assessment and Plan (1) Constipation: Status: Acute (2) Heartburn: Status: Acute (3) Dyspepsia: Status: Acute (4) Anemia: Status: Acute (5) Steatosis, liver: Status: Acute Orders: Orders CBC W/Diff, Automated 09/20/24 D64.9 - Anemia, unspecified, K76.0 - Fatty (change of) liver, not elsewhere classified, R10.13 - Epigastric pain Plan 69y/o female presents for follow-up of constipation and RLQ pain. She was last seen 08/16/2024 and it was recommended she discontinue Linzess and Miralax. She was started on Amitiza 24mcg BID with recommendation to continue daily prunes and adequate water intake. Colonoscopy performed 08/30/2024 revealed a TA. Prep was poor and it is recommended she repeat the colonoscopy in 6 months (February 2025). Labs completed 08/16/2024 reveal a drop in HGB to 9.8, previously 10.4. In terms of steatosis noted on prior CT, I had ordered labs and FibroScan. Labs revealed she is notimmune to Hepatitis A or B and I recommend she complete vaccine series. ELF score is elevated to 9.97 which suggests she has a high probability of advanced fibrosis or cirrhosis. It does not appear she had the FibroScan completed. Patient Instructions: -Colonoscopy with additional bowel prep - will do sooner than 6 months with EGD for w/u of anemia -Schedule FibroScan [facility] is located at: [address] [place] [address], [address] [place] [address] -Recommend vaccination for HAV and HBV - you can do this with your primary care physician ONE and a HALF DAY MIRALAX & SuFlave COLONOSCOPY PREP WHAT YOU NEED TO PURCHASE 1. Bisacodyl (Dulcolax laxative) 2 tablets (NOT suppositories) 2. Miralax (Glycolax) You will need one 7 dose bottle (4.1 ounces) 3. Gas-X tablets (Simethicone) 2 tablets. The milian flavor, pink tablets are approved to use during the prep. 4. 32 ounces of Gatorade, or any non-carbonated clear liquid. (Iced Tea, Crystallight) Select green, yellow or clear flavors ? no red or purple. FIVE DAYS PRIOR TO YOUR PROCEDURE Stop consuming all high fiber foods/roughage. NO raw vegetables. NO corn (cookedor raw). NO whole wheat of high fiber breads. NO nuts or popcorn. NO bran or bulking agents. TWO DAYS PRIOR TO PROCEDURE: NO ALCOHOL You may have a light breakfast and a light lunch At 8:00am: mix Miralax 7 dose bottle (4.1 ounces) with 32 ounces of Gatorade or 32 ounces of a non-carbonated liquid and put in the refrigerator to chill. At 12:00 noon: begin a clear liquid diet. Be sure and drink at least 8 ounces ofan approved clear liquid every hour while awake. AVOID anything red or purple incolor. NO milk products or non-dairy creamer. SEE ATTACHED LIST OF APPROVED CLEAR LIQUIDS At 12:30pm: Take two Dulcolax tablets. Do not crush or chew. Take one Gas-X tablet. At 6:00pm: Begin drinking the Miralax / Gatorade mixture you put in the fridge at 8:00am. Drink thesolution at a rate of 8 ounces every 30-60 minutes until gone. Take one Gas-X tablet. Continue clear liquids until bed. ONE DAY PRIOR TO YOUR PROCEDURE: NO SOLID FOOD NO ALCOHOL Clear liquids ALL DAY AVOID anything red or purple in color. NO milk products or non-dairy creamer. SEE ATTACHED LIST OF APPROVED CLEAR LIQUIDS. Be sure and drink at least 8 ouncesof an approved clear liquid every hour while awake. TAKING THE PREP: FIRST DOSE OF SuFlave ----FOLLOW SUFLAVE PREP INSTRUCTIONS OUTLINED IN HANDOUT PROVIDED BY OUR OFFICE Continue clear liquids until bed. If you have questions about this colon cleansing, please call our office for assistance at [phone]. APPROVED CLEAR LIQUIDS ? No RED or PURPLE -Gatorade or PowerAde -Clear broth or bouillon ? chicken or beef -Coffee or Tea (no milk or non-dairy creamer) -Carbonated and Non-carbonated beverages -Mickey-Aid or Crystal Light -Strained Fruit Juices -Jell-O, Popsicles or [place]ian Ice 11/21/24 1336 Cosigner Signature (if applicable): CC: Dr. Janet Valencia, ; Tato Friend, ~ Signed [facility]03-26-2025 [facility]03-26-2025 Consult note [facility] Medical Records Department [address] [place] [address] Pre-Anesthesia Evaluation 11/21/24 1258 MR#: [id number] Acct: [id number] Name: WINTER JOY Rep #:[id number] : 1955 69 From: Roby Thomas MD PCP: Dr. Janet Valencia, DO Status:REG SDC Y Race: C Location: [place] [address] ASA Classification* ASA Classification ASA Classification: 2 Assessment & Plan Anesthesia* Anesthesia Assessment Anesthesia Assessment: Discussed sedation and/or anesthesia options, risks, benefits, and alternatives with patient/parents/legal guardian/POA. Questions invited. The patient/parents/legal guardian/POA seems to understand and agrees to proceedwith anesthesia plan. Reviewed the physical assessment, medical history, allergy history and patient home medications list prior to surgery/procedure/anesthetic and documented any changes. Performed airway and anesthesia risk assessments. Anesthesia Type Anesthesia Type: MAC Anesthesia Focused Assessment* Airway Assessment Mouth opens: >3 cm Mallampati Score: II Focused Labs Anesthesia Preop lab: CBC WBC 9.5 K/mm3 (4.4-11.0) 10/25/24 14:10/25/24 RBC 4.08 M/mm3 (4.2-5.4) L 10/25/24 14:10/25/24 Hgb 8.9 g/dL (12.0-15.0) L 10/25/24 14:10/25/24 Hct 31.5 % (37-47) L 10/25/24 14:10/25/24 Plt Count 395 K/mm3 (150-450) 10/25/24 14:29 10/25/24 CHEMISTRY Potassium 4.2 mmol/L (3.3-5.1) 10/25/24 14:10/25/24 Sodium 132 mmol/L (133-145) L 10/25/24 14:10/25/24 Magnesium 2.1 mg/dL (1.6-2.6) 06/20/23 14:57 06/20/23 BUN 16 mg/dL (4-19) 10/25/24 14:10/25/24 Creatinine 0.6 mg/dL (0.6-1.0) 10/25/24 14:10/25/24 Glucose 87 mg/dL (70-99) 10/25/24 14:29 10/25/24 TSH 1.800 uIU/mL (0.300-4.200) 10/25/24 14:29 09/30 03/22 COAG PT 12.9 SECONDS (11.7-14.9) 11/14/15 11:30 Pre-Assessment Diagnosis/Proposed Procedure Planned Operative Procedure(s): EGD, COLONOSCOPY Anesthesia History 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 When Was Last Pacemaker Check QUESTION #4 FULL TEXT: You/Your Family Experience fever (hyperthermia) with Anesthesia Last Oral Intake Last Oral intake: Last Oral Intake NPO since Meds taken in AM with sips of water? 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 Female Yes 11/16/24 10:46 HX of Motion Sickness No 11/16/24 10:46 HX of N/V After Surgery No 11/16/24 10:46 Non-Smoker Yes 11/16/24 10:46 Duration of Surgery greater No 11/16/24 10:46 than 60 minutes Number of Risk Factors 2 11/16/24 10:46 PONV Score Moderate Risk 11/16/24 10:46 Height & Weight Height & Weight: Anesthesia: Height & Weight Height 5 ft 4 in 10/25/24 07:48 Respiratory Assessment Respiratory Assessment - fire captain: Respiratory Tract Infection Hx - fire captain Hx Respiratory Tract Infection No 11/16/24 10:46 STOP Sleep Apnea STOP Sleep Apnea - fire captain: STOP Sleep Apnea - fire captain Hx Hypertension Yes: CONTROLLED WITH MED 11/16/24 10:46 Hx Sleep Apnea Yes 11/16/24 10:46 CPAP Yes: NON COMPLIANT 11/16/24 10:46 BIPAP No 11/16/24 10:46 Do you snore loudly (louder than talking or can be heard Do you often feel tired/ fatigued/ sleepy during daytime? Has anyone observed you stop breathing during sleep? STOP Results Positive 11/16/24 10:46 QUESTION #5 FULL TEXT : Do you snore loudly (louder than talking or can be heard through closeddoors)? 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 Specify any problems Hx of Preganancy in last 3 No 11/16/24 10:46 Months Nurse Filling Out Transfusion [facility] 11/16/24 10:46 & Questions: Date: 11/16/24 11/16/24 10:46 Time: 10:54 11/16/24 10:46 Patient unable to answer at this time (ie. confused, unrespo /Reproduction History /Reproductive History - fire captain: /Reproductive Hx- fire captain Hx Now No 11/16/24 10:46 Gestational Age (in weeks): EDC: Hx Hx Para Hx Section SAB PFSH Medical History Cardiology follow-up encounter History of Holter monitoring Pain FAITH (dyspnea on exertion) Chest pressure Wears glasses Wears dentures CPAP (continuous positive airway pressure) dependence Arthritis Osteoarthritis of left knee Left knee pain Stress incontinence Difficulty chewing History of IBS Former smoker Neuropathy Sjogrens syndrome Leg cramps History of edema History of echocardiogram History of stress test History of irregular heartbeat Chronic low back pain Sensory polyneuropathy Elevated hemoglobin A1c Rheumatoid arthritis TROY (obstructive sleep apnea) Urinary incontinence, urge Urinary urgency Urinary frequency PND (post-nasal drip) Bipolar 2 disorder Obesity (BMI 30-39.9) Mild intermittent asthma in adult without complication Mild mitral regurgitation Mild dilation of ascending aorta TROY (obstructive sleep apnea) Depression Right flank pain Spinal stenosis of lumbar region Hypertension Hyperlipidemia GERD (gastroesophageal reflux disease) Asthma OCD (obsessive compulsive disorder) Chest pain Thoracic aortic aneurysm without rupture Paroxysmal atrial tachycardia Nephrolithiasis Herpes simplex with unspecified complication Loss of appetite Anxiety Lightheadedness Long-term use of high-risk medication Obesity Sinusitis Eustachian tube dysfunction Otitis media Nightmares Rhinorrhea Segmental and somatic dysfunction of cervical region Segmental and somatic dysfunction of thoracic region Back sprain Epigastric abdominal pain Encounter for screening for malignant neoplasm of colon Home Medications ?Medication ?Instructions ?Recorded ?Last Taken ?Type olanzapine 10 mg tablet 10 mg PO QHS 10/08/20 Unknow n History potassium chloride 20 mEq 20 meq PO BID 10/08/20 Unkno wn History tablet,extended release acetaminophen 500 mg tablet 500 mg PO Q6H PRN pain #30 tabs 03/24/21 Unknown Rx oxybutynin chloride 10 mg 10 mg PO DAILY 07/31/21 Unkn own History tablet,extended release 24 hr duloxetine 30 mg capsule,delayed 30 mg PO BID 07/07/23 Unknown History release trazodone 150 mg tablet 150 mg PO QHS 09/28/23 Unkno wn History vibegron 75 mg tablet (Gemtesa) 75 mg PO DAILY 4 Unknown History aspirin 81 mg tablet,delayed 81 mg PO DAILY 11/24/23 0 11/07/24 History release (Adult Aspirin Regimen) cholecalciferol (vitamin D3) 1,250 1,250 mcg PO .QOTU 04/04/24 Unknown History mcg (50,000 unit) capsule lisinopril 20 mg tablet 10 mg PO BID 08/16/24 Unknow n History lubiprostone 24 mcg capsule 24 mcg PO BID constipation #180 08/16/24 08/30/24 06:30 Rx (Amitiza) caps ondansetron 4 mg disintegrating 4 mg PO Q8H PRN nausea and vomiting 08/16/24 Unknown History tablet pantoprazole 40 mg tablet,delayed 40 mg PO QDAY 08/30/24 06:30 History release metoprolol tartrate 25 mg tablet 25 mg PO BID #180 tab s 10/25/24 11/21/24 07:15 Rx amlodipine 5 mg tablet 5 mg PO DAILY #30 tabs 11/0211/21/24 07:15 Rx Allergy/AdvReac Type Severity Reaction Status Date / Time tramadol (From Ultram) Allergy Intermediate Itching Verified 11/21/24 12:55 oxycodone (From Percocet) Allergy Mild Itching Verified 11/21/24 12:55 cephalexin (From Keflex) Allergy Rash Verified 11/21/24 12:55 flurazepam (From Dalmane) Allergy Other Verified 11/21/24 12:55 shellfish derived Allergy RASH Verified 11/21/24 12:55 divalproex sodium (From AdvReac Intermediate Other - Verified 11/21/24 12:55 Depakote) nightmares quetiapine (From Seroquel) AdvReac Mild Other - Verified 11/21/24 12:55 shaking, lightheaded and abnormal dreams meloxicam AdvReac Unknown Verified 11/21/24 12:55 Family History Father Cancer Alcoholism Hypertension Mother Heart disease H/O weight disorder Myocardial infarction Hypertension COPD (chronic obstructive pulmonary disease) Skin cancer Sister Hypertension Surgical History Hx of cystoscopy History of cardiac catheterization Hx of surgical procedure bladder sling removal History of bilateral carpal tunnel release H/O eye surgery H/O hand surgery History of total right knee replacement History of appendectomy H/O: hysterectomy Hx laparoscopic cholecystectomy Social History household members: none Smoking Status: Former smoker quit date: 08/29/82 pack-years: 15 second hand exposure: No alcohol intake: never substance use type: does not use Review of Systems (Anesthesia) ROS Narrative System reviewed and no additional complaints, except as documented. 11/21/24 1259 > Date _ Roby Davenport Signature: Date CC: ~ Signed [facility]03-07-2025 Telephone encounter Note* Telephone Encounter - Jc Puri - 11/02/2024 1:37 PM EST Patient called about lab work, has not seen Dr. Carlton since April 2023. Offered in person and virtual appointment and she denied both. Scheduled her with Isabel Ceron since she lives in [place]. [facility]03-07-2025 Miscellaneous Notes* Telephone Encounter - Jc Puri - 11/02/2024 1:37 PM EST Patient called about lab work, has not seen Dr. Carlton since April 2023. Offered in person and virtual appointment and she denied both. Scheduled her with Isabel Ceron since she lives in [place]. * Telephone Encounter - Shanice Gruber - 10/16/2024 12:42 PM EST Pt would like to go 10/19/23 to get blood work done, Pt ph [phone] * Telephone Encounter - Shanice Gruber - 10/10/2024 12:09 PM EST Pt requesting lab orders, Pt ph [phone] documented [facility]* Diagnosis Onset Date Resolution Status Admit Date Anemia chronic October 25, 2024 1:12pm Hypertension chronic September 1:12pm Obesity chronic October 25, 2024 1:12pm TROY (obstructive sleep apnea) chroni c October 25, 2024 1:12pm Rheumatoid arthritis chronic 2024 1:12pm Anemia acute November 21 12:21pm Encounter for screening for malignant neoplasm of colon acute 2024 12:21pm Right knee sprain acute November 282024 1:31pm S/P total hip arthroplasty acute December 19, 2024 1:31pm Anemia acute January 03, 2025 9:36am Constipation acute January 03 9:36am Iron deficiency anemia chronic Ma 2024 9:10am 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 December 282024 9:10am [employer] Work Phone: [phone] Telephone encounter Note* Telephone Encounter - Shanice Gruber - 10/16/2024 12:42 PM EST Pt would like to go 10/19/23 to get blood work done, Pt ph [phone] [facility]02-12-2025 Telephone encounter Note* Telephone Encounter - Shanice Gruber - 10/10/2024 12:09 PM EST Pt requesting lab orders, Pt ph [phone] [facility]01-22-2025 Evaluation note* Diagnosis Onset Date Resolution Status Admit Date Osteoarthritis of left knee acute September 19, 2024 12:20pm Constipation acute August 9:18am Dyspepsia acute September 20, 2024 9:18am Heartburn acute September 20, 2024 9:18am Steatosis, liver acute September 20, 2024 9:18am Anemia chronic September 20, 2024 9:18am Anemia chronic October 25, 2024 1:12pm Hypertension chronic September 1:12pm Obesity chronic October 25, 2024 1:12pm TROY (obstructive sleep apnea) chroni c October 25, 2024 1:12pm Rheumatoid arthritis chronic 2024 1:12pm Anemia acute November 21 12:21pm Encounter for screening for malignant neoplasm of colon acute 2024 12:21pm Right knee sprain acute November 282024 1:31pm S/P total hip arthroplasty acute December 19, 2024 1:31pm Anemia acute January 03, 2025 9:36am Constipation acute January 03 9:36am [facility] Work Phone: 1(762) 425-293301-02-2025 [facility]* Diagnosis Onset Date Resolution Status Admit Date Constipation acute July 10:02am RLQ abdominal pain acute Decemb er 2023 10:02am Steatosis, liver acute August 16, 2024 10:02am Straining during bowel movements acute August 16, 024 10:02am Anemia chronic August 16, 2024 10:02am Constipation acute August 30, 2024 8:40am RLQ abdominal pain acute 2024 8:40am Steatosis, liver acute August 30, 2024 8:40am Straining during bowel movements acute August 30 8:40am Anemia chronic August 30 8:40am Osteoarthritis of left knee acute September 19, 2024 12:20pm Constipation acute August 9:18am Dyspepsia acute September 20, 2024 9:18am Heartburn acute September 20, 2024 9:18am Steatosis, liver acute September 20, 2024 9:18am Anemia chronic September 20, 2024 9:18am Anemia chronic October 25, 2024 1:12pm Hypertension chronic September 1:12pm Obesity chronic October 25, 2024 1:12pm TROY (obstructive sleep apnea) chroni c October 25, 2024 1:12pm Rheumatoid arthritis chronic Febr ua2024 1:12pm [facility] Work Phone: 1(924) 392-515212-19-2024 Evaluation note* Diagnosis Onset Date Resolution Status Admit Date Constipation acute July 10:02am RLQ abdominal pain acute Decemb er 2023 10:02am Steatosis, liver acute August 16, 2024 10:02am Straining during bowel movements acute August 16 024 10:02am Anemia chronic August 16, 2024 10:02am Constipation acute August 30, 2024 8:40am RLQ abdominal pain acute 2024 8:40am Steatosis, liver acute August 30, 2024 8:40am Straining during bowel movements acute August 30 8:40am Anemia chronic August 30 025 8:40am Osteoarthritis of left knee acute September 19, 2024 12:20pm Constipation acute August 9:18am Dyspepsia acute September 20, 2024 9:18am Heartburn acute September 20, 2024 9:18am Steatosis, liver acute September 20, 2024 9:18am Anemia chronic September 20, 2024 9:18am Anemia chronic October 25, 2024 1:12pm Hypertension chronic September 1:12pm Obesity chronic October 25, 2024 1:12pm TROY (obstructive sleep apnea) chroni c October 25, 2024 1:12pm Rheumatoid arthritis chronic Febr uary 2024 1:12pm Anemia acute November 21 12:21pm Encounter for screening for malignant neoplasm of colon acute [place] 2024 12:21pm [facility] Work Phone: 1(296) 402-997812-08-2023 Procedure [facility] 07-28-2023 Procedure [facility]08-14-2023 Miscellaneous Notes* Telephone Encounter - Carolyne Tinajero RN - 04/11/2023 8:23 AM EDT Call placed to [facility], spoke with patient advising lab orders had been placed. Patient hadno further questions. Carolyne Tinajero RN * Telephone Encounter - Carolyne Tinajero RN - 03/25/2023 8:40 AM EDT Call placed to [facility], message left advising Dr. Carlton will be back next week and address orders at that time. Carolyne Tinajero RN * Telephone Encounter - Cynthia Alcala MD - 03/24/2023 7:07 PM EDT let her know dr carlton is out of the office until early March. She should message back in two weeks to see what she prefers. kaur alcala m.d. * Telephone Encounter - Carolyne Tinajero RN - 03/24/2023 12:54 PM EDT Lab orders pended. Carolyne Tinajero RN * Telephone Encounter - Armen Verma - 03/24/2023 12:29 PM EDT [facility] Mart[place] is calling Génesis Carlton MD today with concern regarding wanting to have an order/appointment for her labs so that she may have labs first then have her appointment with Dr. Carlton. Sheis concerned about the excess wait involved. No chief complaint on file. Patient has been identified by name and birthdate. Duration of symptoms: N/A Person calling: self Call patient at: at home [phone] (home) [phone] (cell) Was an appointment scheduled: No Closing statement: Symptom Call: Thank you for calling [facility], your call is very important. A nurse will call in approximately 2-4 hours during business hours. If this is an emergency, please contact 911. Armen Verma documented in this encounterThe [facility]08-[facility] Miscellaneous Notes* Telephone Encounter - Sheyla Ragsdale - 04/08/2023 10:16 AM EDT Duplicate, please see te from 03/24/2023. Sheyla Ragsdale * Telephone Encounter - Christine Garza - 04/08/2023 9:12 AM EDT [facility] Fernandoaleksandra is calling Génesis Carlton MD today Orders Patient has been identified by name and birthdate. Patient calling asking that orders for lab work be placed so she can have labs done before appointment. Duration of symptoms: N/A Person calling: self Call patient at: at home [phone] (home) [phone] (cell) Was an appointment scheduled: No Closing statement: Results or non-symptom based questions: Thank you for calling [facility], your call will be returned within the next business day. Christine Garza documented in this encounterThe [facility]08-26-2022 Instructions* Patient Instructions* Génesis Carlton MD - 04/23/2022 12:08 PM EDT Diclofenac GEL take 2-3 times daily. Will send this to your pharmacy Tylenol extra strength - take 2 capsules three times daily (total of 6 tablets daily) documented in this encounterThe [facility]08-[facility]-2022 History of Present illness Narrative* Génesis Carlton MD - 04/23/2022 11:34 AM EDT Images from the original note were not [...] have persistent cough but does see a credit and collection manager regularly for PFT's and an underlying diagnosis of asthma. Today she is complaining of flank pain on the right side which she says has been going on for at least a year. Started out as an annoying pain but has worsened over the last 6 months. Her GB has beenremoved. 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 She tolerates [...] helped with any joint pain nor her mouthdryness. She has gained 20 lb. She denies fevers, chills, night sweats, LAD, or unintentional weight loss. November 21, 2020 she restarted the plaquenil a couple months ago but still feels it hasn't helped shehas chronic LBP and is having ANTOINE's done later. She has not had any changes in her rheumatic complaints. April 23, 2022 complains of left knee pain. Had an injection end of February. Also recalls taking somesteroids around that time. 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 Thomas PTSD (post-traumatic stress disorder) seeing counselor Sjogren syndrome ([facility]) Unspecified asthma(493.90) Asthma Unspecified SOCIAL HISTORY: Social [...] capsule Take 1 capsule by mouth once eachweek. BUTRANS 5 mcg/hour (Patient not taking: Reported on 11/21/2020) Ipratropium [place] (ATROVENT) 0.03 % nasal spray triamcinolone acetonide [...] Units 04/21/2016 Sm Antibody <1.0 AI <0.2 MONUMENT MASON Antibody <1.0 AI <0.2 SSA Antibody <1.0 AI >8.0 (H) SSB Antibody <1.0 AI <0.2 Centromere Ab <1.0 AI <0.2 Scleroderma Ab, IgG <1.0 AI <0.2 Natalya 1 Antibody <1.0 AI <0.2 Ribosomal MONUMENT MASON <1.0 AI <0.2 Chromatin Antibody <1.0 AI [...] Speckled DNA ANTIBODY W/CONFIRMATION <30 IU/mL <12 MONUMENT MASON ANTIBODY <1.0 AI <0.2 SSA ANTIBODY <1.0 AI >8.0(H) SSB ANTIBODY <1.0 AI <0.2 NATALYA-1 ANTIBODY, IGG <1.0 AI <0.2 RIBOSOMAL MONUMENT MASON <1.0 AI <0.2 SM ANTIBODY <1.0 AI [...] year Génesis Carlton MD Rheumatology Staff Pager [phone] documented in [facility] encounterThe [facility]08-[facility] Miscellaneous Notes* Telephone Encounter - Carolyne Tinajero RN - 04/06/2022 8:06 AM EDT Patient notified lab orders placed. Carolyne Tinajero RN * Telephone Encounter - Génesis Carlton MD - 04/05/2022 5:48 PM EDT Orders signed. Génesis Carlton MD * Telephone Encounter - Vianney Noguera Pss - 04/02/2022 9:45 AM EDT Patient called back and would like to be notified when orders have been signed so that she can schedule an appointment to have labs drawn. Patient has appointment with Dr Carlton 04/23/2022. Vianney Noguera Pss * Telephone Encounter - Carolyne Tinajero RN - 04/02/2022 9:23 AM EDT Lab orders pended to Dr. Carlton for Signature. Carolyne Tianjero RN * Telephone Encounter - Christine Garza - 04/02/2022 9:12 AM EDT [facility] is calling Génesis Carlton MD [...] calling: self Call patient at: on cell [phone] (home) [phone] (cell) Was an appointment scheduled: No Closing statement: Results or non-symptom based questions: Thank you for calling [facility], your call will be returned within the next business day. Christine Garza documented in this encounterThe [facility]04-26-2022 Miscellaneous Notes* Telephone Encounter - Carolyne Tinajero RN - 12/22/2021 11:29 AM EDT Spoke with [facility], message given below. Patient verbalized she no longer takes Flexeril. Patient verbalized understanding and had no other questions. Carolyne Tinajero RN December 22, 2021 11:30 AM * Telephone Encounter - Génesis Carlton MD - 12/22/2021 11:11 AM EDT I sent it to her pharmacy. Please advise her this is to be used in place of flexeril. Génesis Carlton MD * Telephone Encounter - Carolyne Tinajero RN - 12/21/2021 9:[address] Carlton, Dr. Alcala offered Methocarbomol for patient however it has not been sent in to the pharmacy. Is this something you are comfortable sending in? Thank you, Carolyne Tinajero RN * Telephone Encounter - Jennifer Plascencia Pss - 12/21/2021 9:37 AM EDT Pt calling in to check on the status of medication being sent to the pharmacy. Please notify pt when medication is sent at [phone]. * Telephone Encounter - Carolyne Tinajero RN - 12/18/2021 9:42 AM EDT Patient requesting a generalized letter to carry [...] message below, patient is willing to try. [place] pharmacy confirmed with the patient. Carolyne Tinajero RN December 18, 2021 9:45 AM * Telephone Encounter - Carolyne Tinajero RN - 12/18/2021 9:32 AM EDT Images from the original note were not included. Message left for [facility], asking who letter is for and what needs to be addressed per message below. SCARLETT Mittal MD Wh Rheum Ma Daytime Pool 2 days ago fine, I guess. why does she need it? Message text * Telephone Encounter - Christine Garza - 12/16/2021 9:34 AM EDT Patient calling to ask for a written statement from Dr Carlton to state that her dry cough is part of her Sjorgen's Syndrome. Coleen * Telephone Encounter - Cynthia Alcala MD - 12/14/2021 11:44 AM EDT ok, would try methocarbamol , another muscle relaxant if she would like , as long as olanzapine notfelt causal. tx! janae alcala m.d. * Telephone Encounter - Carolyne Tinajero RN - 12/14/2021 11:03 AM EDT Spoke with patient she has reached out [...] Tinajero RN December 14, 2021 11:08 AM * Telephone Encounter - Cynthia Alcala MD - 12/14/2021 10:55 AM EDT 1) if she feels she has bronchitis, [...] with rheum CAESAR if needed tx Cynthia Alcala MD * Telephone Encounter - Carolyne Tinajero RN - 12/14/2021 10:05 AM EDT Call placed to [facility], patient has pain in her left foot (8/10) and a Locking up feelingin her hands, she feels like she cant move. Patient stated her hands started locking up [...] Tinajero RN December 14, 2021 10:12 AM * Telephone Encounter - Christine Garza - 12/14/2021 9:53 AM EDT [facility] is calling Génesis Carlton MD [...] calling: self Call patient at: at home [phone] (home) [phone] (cell) Was an appointment scheduled: No Closing statement: Symptom Call: Thank you for calling [facility], your call is very important. A nurse will call in approximately 2-4 hours during business hours. If this is an emergency, please contact 911. Christine Garza documented in this encounterThe Bellevue HospitalConsult note Author Jayy Torres [facility] Note Date/Time November 21, 2024 2:5 3pm [facility] Medical Records Department [address] [place] [address] Anesthesia Postop Eval I 11/21/24 145 MR#: [id number] Acct: [id number] Name: WINTER JOY Rep #:[id number] : [id number] From: Jayy Torres PCP: Dr. Janet Valencia, DO Status:REG SDC Y Race: C Location: [place] [address] Anesthesia: Postop Eval I Current Vital Signs Temperature: 97.7 F Pulse Rate: 70 Blood Pressure: 122/71 Respiratory Rate: 16 Pulse Ox: 97 Oxygen Delivery Method: Room Air Assessment Airway patent: Yes Spontaneous unlabored respirations: Yes Mental status: Asleep nausea: No Vomiting: No Anesthesia Complication: No Fluid Hydration Crystalloid volume administer (ml): 50 Total IV fluid infused: 50 Progress Note Anesthesia document: Postop Eval 1 completed: Yes 11/21/241452 <Electronically signed by Jayy Torres > Date _ Jayy Davenport Signature: Date CC: ~ Signed [facility] Work Phone: Consult note Author Roby Thomas [facility] Note Date/Time November 21, 2024 3:2 5pm [facility] Medical Records Department [address] [place] [address] Anesthesia Postop Eval II 11/21/241513 MR#: [id number] Acct: [id number] Name: WINTER JOY Rep #:[id number] : 1955 69 From: Roby Thomas MD PCP: Dr. Janet Valencia, DO Status:REG SDC Y Race: C Location: [place] [address] Anesthesia Postop Eval I Sum Postop Eval Completion status Anesthesia document: Postop Eval 1 completed: Yes Anesthesia Postop Eval I Summary Anesthesia Postop Eval I Summary: Anesthesia Postop Eval I: Assessment Summary Airway patent Yes 11/21/24 14:53 [email or web address] Spontaneous unlabored Yes 11/21/24 14:53 [email or web address] respirations Mental status Asleep 11/21/24 14:53 [email or web address] nausea No 11/21/24 14:53 [email or web address] Vomiting No 11/21/24 14:53 [email or web address] Anesthesia Postop Eval I: Fluid Summary Crystalloid volume administer 50 11/21/24 14:53 [email or web address] (ml) Colloids volume administered ( ml) Blood Product volume administered (ml) Total IV fluid infused 50 11/21/24 14:53 [email or web address] Anesthesia Postop Eval I: Summary Notes Anesthesia Complication No 11/21/24 14:53 [email or web address] Anesthesia Complication Comment: Post-operative progress note Anesthesia: Postop Eval II Evaluation Mental status: Awake Pain Level: 0 nausea: No Vomiting: No 11/21/241513 <Electronically signed by Roby Thomas MD > Date _ Roby Thomas MD Cosigner Signature: Date CC: ~ Signed [facility] Work Phone: Consult note Author Jayy Torres [facility] Note Date/Time March 07, 2025 9:58 am [facility] Medical Records Department [address] [place] [address] Anesthesia Postop Eval I 03/07/2557 MR#: [id number] Acct: [id number] Name: WINTER JOY Rep #:[id number] : 1955 70 From: Jayy Torres PCP: Dr. Janet Valencia, DO Status:REG SDC Y Race: C Location: [place] [address] Anesthesia: Postop Eval I Current Vital Signs Temperature: 97.2 F Pulse Rate: 72 Blood Pressure: 128/76 Respiratory Rate: 16 Pulse Ox: 100 Oxygen Delivery Method: Room Air Assessment Airway patent: Yes Spontaneous unlabored respirations: Yes Mental status: Asleep nausea: No Vomiting: No Anesthesia Complication: No Fluid Hydration Crystalloid volume administer (ml): 400 Total IV fluid infused: 400 Progress Note Anesthesia document: Postop Eval 1 completed: Yes 03/07/25 0958 <Electronically signed by Jayy Torres > Date _ Jayy Davenport Signature: Date CC: ~ Signed [facility] Work Phone: Evaluation noteNo assessment information available [facility] Work Phone: Evaluation note* Diagnosis Onset Date Resolution Status Stress incontinence acute [facility] Work Phone: Evaluation note* Diagnosis Onset Date Resolution Status Stress incontinence acute TROY (obstructive sleep apnea) acute Bipolar 2 disorder chronic Mild intermittent asthma in adult without complication chronic [facility] Work Phone: Evaluation note* Diagnosis Sjogren's syndrome, with unspecified organ involvement (HCC)- [facility] Sjogren's syndrome, with unspecified organ involvement (HCC)- Primary Dry mouth Disturbance of salivary secretion Primary osteoarthritis of left knee Primary localized osteoarthrosis, lower leg [facility] Sjogren's syndrome, with unspecified organ involvement (HCC)- Primary Dry mouth Disturbance of salivary secretion Primary osteoarthritis of left knee Primary localized osteoarthrosis, lower leg [facility] Diagnosis Onset Date Resolution Status Osteoarthritis of left knee acute [facility] Work Phone: Evaluation note* Diagnosis Onset Date Resolution Status Osteoarthritis of left knee acute TROY (obstructive sleep apnea) acute Mild intermittent asthma in adult without complication chronic Rheumatoid arthritis chronic [facility] Work Phone: Evaluation note* Diagnosis Onset Date Resolution Status Rheumatoid arthritis chronic Chest pain chronic FAITH (dyspnea on exertion) ch ronic Hypertension chronic Obesity chronic TROY (obstructive sleep apnea) chronic Rheumatoid arthritis [facility] Work Phone: Evaluation note* Diagnosis Onset Date Resolution Status Rheumatoid arthritis chronic Chest pain chronic FAITH (dyspnea on exertion) ch ronic Hypertension chronic Obesity chronic TROY (obstructive sleep apnea) chronic Rheumatoid arthritis chronic Mechanical pain of left knee acute Asthma chronic Obesity chronic TROY (obstructive sleep apnea) chronic Rheumatoid arthritis [facility] Work Phone: Evaluation note* Diagnosis Onset Date Resolution Status Chest pain chronic FAITH (dyspnea on exertion) ch ronic Hypertension chronic Obesity chronic TROY (obstructive sleep apnea) chronic Rheumatoid arthritis chronic Mechanical pain of left knee acute Asthma chronic Obesity chronic TROY (obstructive sleep apnea) chronic Rheumatoid arthritis [facility] Work Phone: Evaluation note* Diagnosis Onset Date Resolution Status Chest pain chronic FAITH (dyspnea on exertion) ch ronic Hypertension chronic Obesity chronic TROY (obstructive sleep apnea) chronic Rheumatoid arthritis chronic Mechanical pain of left knee acute Asthma chronic Obesity chronic TROY (obstructive sleep apnea) chronic Rheumatoid arthritis chronic Obesity chronic Rheumatoid arthritis chronic Degenerative tear of meniscus noneactive Osteoarthritis of left knee noneactive [facility] Work Phone: Evaluation note* Diagnosis Onset Date Resolution Status Chest pain chronic FAITH (dyspnea on exertion) ch ronic Hypertension chronic Obesity chronic TROY (obstructive sleep apnea) chronic Rheumatoid arthritis chronic Mechanical pain of left knee acute Asthma chronic Obesity chronic TROY (obstructive sleep apnea) chronic Rheumatoid arthritis chronic Obesity chronic Rheumatoid arthritis chronic Degenerative tear of meniscus noneactive Osteoarthritis of left knee noneactive DJD (degenerative joint disease) of knee acute [facility] Work Phone: Evaluation note* Diagnosis Abdominal pain- Primary Abdominal pain, unspecified site Weight gain Abnormal weight gain Obesity (BMI 30-39.9) Obesity, unspecified Sjogren's syndrome, with unspecified organ involvement (HCC)- Primary Dry mouth Disturbance of salivary secretion Primary osteoarthritis of left knee Primary localized osteoarthrosis, lower leg History of vitamin D deficiency Personal history of nutritional deficiency Radiculopathy, lumbar region Thoracic or lumbosacral neuritis or radiculitis, unspecified [facility] Diagnosis Abdominal pain- Primary Abdominal pain, unspecified site Weight gain Abnormal weight gain Obesity (BMI 30-39.9) Obesity, unspecified Sjogren's syndrome, with unspecified organ involvement (HCC)- Primary Anemia, unspecified type [facility] Author Tato Posey [facility] Note Date/Time November 21, 2024 1:3 6pm [facility] Medical Records Department [address] [place] [address] History & Physical Exam 11/21/24 1332 MR#: [id number] Acct: [id number] Name: WINTER JOY Rep #:[id number] : 1955 69 From: Tato Posey DO PCP: Dr. Janet Valencia, DO Status:[employer] Location: [place] [address] HPI - General General Date of Admission: 11/21/24 Date of Service: 11/21/24 Chief Complaint: surveillance colonoscopy HPI Narrative WINTER JOY, is a 69 F who presents today for colonoscopy because of history of adenomatous polyps. OV 08/16/2024 w/ Karen, [employer]INER 69y/o female presents for consultation with complaints of constipation and RLQ pain. CT A&P with contrast was completed 04/24/2024 revealed liver steatosis. Benjamineports a long history of constipation currently failing Miralax and Linzess, and previously failed Lactulose. She reports going up to a week without a bowel movement. Denies any bleeding or weight loss. She is on several medications which can contribute to constipation (gabapentin, oxybutynin, olanzapine) and has a spinal cord stimulator. We have discussed the importance of a high fiber diet. She will discontinue Linzess and Miralax and start Amitiza BID. I have scheduled her for an ARM and colonoscopy. In terms of steatosis noted on prior CT, I have ordered labs and Elastography. Patient Instructions: Discontinue Linzess Discontinue Miralax Schedule Anorectal Manometry at [facility] Start Amitiza 24mcg twice daily Continue 5 prunes daily with good water intake (at least 64 ounces a day) Schedule Fibroscan at [facility] Schedule Colonoscopy - You may be a candidate to enroll in colon cancer researchstudy with [facility] Call to schedule Anorectal Manometry Dr. Pelaez [facility] Dr. Leandro Pelaez [address] [place] [address] P: [phone] F: [phone] --- LABS 08/16/2024 HGB 9.8, CMP unremarkable 04/24/2024 HGB 10.4 11/25/2023 HGB 10.9 12/02/2022 HGB 11.4 HAV Total Ab: 08/16/2024 negative HBVsA08/16/2024 negative HBVsAb: 08/16/2024 negative HBV Core Ab Total: 08/16/2024 negative HCV Ab: 08/16/2024 negative ELF: 08/16/2024 (HIGH) 9.97 - high probability of advanced fibrosis or cirrhosis FibroScan: was referred to [id number] - states it was scheduled for today and our office told her to cancel this ARM - reports she had this completed this month with Dr. Benigno VERMA 08/30/2024 - tubular adenoma ---REPEAT COLON IN 6 MONTHS DUE TO POOR PREP - Preparation of the colon was fair. - Diverticulosis in the recto-sigmoid colon and in the sigmoid colon. - One 12 mm polyp in the sigmoid colon, removed with a hot snare. Resected and retrieved. - Stool in the recto-sigmoid colon, in the sigmoid colon, in the descending colon, in the transverse colon, in the ascending colon and in the cecum. CONSTIPATION - reports constipation has been well managed - she is on Amitiza 24mcg BID - denies any pain or bleeding - she did okay with the bowel prep - denies any N/V - she is agreeable to repeating colon in 6 months ANEMIA - denies any epistaxis - denies any BRBPR - denies any melena - denies any HB - she is on pantoprazole 40mg daily <6months - this replaced prilosec which she had been on for awhile and was failing therapy - she does c/o belching - denies any N/V - dysphagia in the upper esophagus - known h/o Sjogren's - denies any weight loss - denies any blood donation - she is not a vegetarian - seldom consumption of red meat - denies any kidney disease MASLD - going to support group to help with weight loss [facility] Medical History Cardiology follow-up encounter History of Holter monitoring Pain FAITH (dyspnea on exertion) Chest pressure Wears glasses Wears dentures CPAP (continuous positive airway pressure) dependence Arthritis Osteoarthritis of left knee Left knee pain Stress incontinence Difficulty chewing History of IBS Former smoker Neuropathy Sjogrens syndrome Leg cramps History of edema History of echocardiogram History of stress test History of irregular heartbeat Chronic low back pain Sensory polyneuropathy Elevated hemoglobin A1c Rheumatoid arthritis TROY (obstructive sleep apnea) Urinary incontinence, urge Urinary urgency Urinary frequency PND (post-nasal drip) Bipolar 2 disorder Obesity (BMI 30-39.9) Mild intermittent asthma in adult without complication Mild mitral regurgitation Mild dilation of ascending aorta TROY (obstructive sleep apnea) Depression Right flank pain Spinal stenosis of lumbar region Hypertension Hyperlipidemia GERD (gastroesophageal reflux disease) Asthma OCD (obsessive compulsive disorder) Chest pain Thoracic aortic aneurysm without rupture Paroxysmal atrial tachycardia Nephrolithiasis Herpes simplex with unspecified complication Loss of appetite Anxiety Lightheadedness Long-term use of high-risk medication Obesity Sinusitis Eustachian tube dysfunction Otitis media Nightmares Rhinorrhea Segmental and somatic dysfunction of cervical region Segmental and somatic dysfunction of thoracic region Back sprain Epigastric abdominal pain Encounter for screening for malignant neoplasm of colon Home Medications ?Medication ?Instructions ?Recorded ?Last Taken ?Type olanzapine 10 mg tablet 10 mg PO QHS 10/08/20 Unknow n History potassium chloride 20 mEq 20 meq PO BID 10/08/20 Unkno wn History tablet,extended release acetaminophen 500 mg tablet 500 mg PO Q6H PRN pain #30 tabs 03/24/21 Unknown Rx oxybutynin chloride 10 mg 10 mg PO DAILY 07/31/21 Unkn own History tablet,extended release 24 hr duloxetine 30 mg capsule,delayed 30 mg PO BID 07/07/23 Unknown History release trazodone 150 mg tablet 150 mg PO QHS 09/28/23 Unkno wn History vibegron 75 mg tablet (Gemtesa) 75 mg PO DAILY 4 Unknown History aspirin 81 mg tablet,delayed 81 mg PO DAILY 11/24/23 0 11/07/24 History release (Adult Aspirin Regimen) cholecalciferol (vitamin D3) 1,250 1,250 mcg PO .QOTU 04/04/24 Unknown History mcg (50,000 unit) capsule lisinopril 20 mg tablet 10 mg PO BID 08/16/24 Unknow n History lubiprostone 24 mcg capsule 24 mcg PO BID constipation #180 08/16/24 08/30/24 06:30 Rx (Amitiza) caps ondansetron 4 mg disintegrating 4 mg PO Q8H PRN nausea and vomiting 08/16/24 Unknown History tablet pantoprazole 40 mg tablet,delayed 40 mg PO QDAY 08/30/24 06:30 History release metoprolol tartrate 25 mg tablet 25 mg PO BID #180 tab s 10/25/24 11/21/24 07:15 Rx amlodipine 5 mg tablet 5 mg PO DAILY #30 tabs 11/0211/21/24 07:15 Rx Allergy/AdvReac Type Severity Reaction Status Date / Time tramadol (From Ultram) Allergy Intermediate Itching Verified 11/21/24 12:55 oxycodone (From Percocet) Allergy Mild Itching Verified 11/21/24 12:55 cephalexin (From Keflex) Allergy Rash Verified 11/21/24 12:55 flurazepam (From Dalmane) Allergy Other Verified 11/21/24 12:55 shellfish derived Allergy RASH Verified 11/21/24 12:55 divalproex sodium (From AdvReac Intermediate Other - Verified 11/21/24 12:55 Depakote) nightmares quetiapine (From Seroquel) AdvReac Mild Other - Verified 11/21/24 12:55 shaking, lightheaded and abnormal dreams meloxicam AdvReac Unknown Verified 11/21/24 12:55 Family History Father Cancer Alcoholism Hypertension Mother Heart disease H/O weight disorder Myocardial infarction Hypertension COPD (chronic obstructive pulmonary disease) Skin cancer Sister Hypertension Surgical History Hx of cystoscopy History of cardiac catheterization Hx of surgical procedure bladder sling removal History of bilateral carpal tunnel release H/O eye surgery H/O hand surgery History of total right knee replacement History of appendectomy H/O: hysterectomy Hx laparoscopic cholecystectomy Social History household members: none Smoking Status: Former smoker quit date: 08/29/82 pack-years: 15 second hand exposure: No alcohol intake: never substance use type: does not use ROS Constitutional Constitutional: Denies fatigue, fever(s), poor appetite, weight gain or weight loss Gastrointestinal Gastrointestinal: Denies belching, bloating, change in bowel habits, change in stool character, chewing difficulty, coffee ground emesis, constipation, cramping, diarrhea, dyspepsia, dysphagia, early satiety, excessive flatus, fecalincontinence, heartburn, hematemesis, hematochezia, hemorrhoids, loose stools, melena, nausea, odynophagia, rectal bleeding, tenesmus, vomiting or weight changes Vital Signs Vital Signs Vital Signs: 11/21/24 13:02 11/21/24 13:02 Temperature 97.9 F Temperature Source Temporal Pulse Rate 78 Respiratory Rate 16 Respiratory Pattern Normal Blood Pressure 138/90 H Blood Pressure Mean 106 Blood Pressure Source Monitor Blood Pressure Position Semi-Fowlers Blood Pressure Location Right Arm Pulse Ox 99 Oxygen Delivery Method Room Air Weight Weight: 222 lb 10.67 oz Body Mass Index (BMI) 38.2 Physical Exam Const alert, oriented x3, no apparent distress and healthy appearing General Appearance: cooperative GI normal to inspection, nondistended, normoactive bowel sounds, soft to palpation,non-tender and non-distended Percussion: normal to percussion Rectal Exam: deferred Results Lab / Micro Data 11/21/24 12:27 Assessment & Plan Assessment/Plan (1) Anemia: (2) Encounter for screening for malignant neoplasm of colon: PLAN: Assessment and Plan Assessment and Plan (1) Constipation: Status: Acute (2) Heartburn: Status: Acute (3) Dyspepsia: Status: Acute (4) Anemia: Status: Acute (5) Steatosis, liver: Status: Acute Orders: Orders CBC W/Diff, Automated 09/20/24 D64.9 - Anemia, unspecified, K76.0 - Fatty (change of) liver, not elsewhere classified, R10.13 - Epigastric pain Plan 69y/o female presents for follow-up of constipation and RLQ pain. She was last seen 08/16/2024 and it was recommended she discontinue Linzess and Miralax. She was started on Amitiza 24mcg BID with recommendation to continue daily prunes and adequate water intake. Colonoscopy performed 08/30/2024 revealed a TA. Prep was poor and it is recommended she repeat the colonoscopy in 6 months (February 2025). Labs completed 08/16/2024 reveal a drop in HGB to 9.8, previously 10.4. In terms of steatosis noted on prior CT, I had ordered labs and FibroScan. Labs revealed she is not immune to Hepatitis A or B and I recommend she complete vaccine series. ELF score is elevated to 9.97 which suggests she has a high probability of advanced fibrosis or cirrhosis. It does not appear she had the FibroScan completed. Patient Instructions: -Colonoscopy with additional bowel prep - will do sooner than 6 months with EGD for w/u of anemia -Schedule FibroScan [facility] is located at: [address], [address] [place] [id number] -Recommend vaccination for HAV and HBV - you can do this with your primary care physician ONE and a HALF DAY MIRALAX & SuFlave COLONOSCOPY PREP WHAT YOU NEED TO PURCHASE 1. Bisacodyl (Dulcolax laxative) 2 tablets (NOT suppositories) 2. Miralax (Glycolax) You will need one 7 dose bottle (4.1 ounces) 3. Gas-X tablets (Simethicone) 2 tablets. The milian flavor, pink tablets are approved to use during the prep. 4. 32 ounces of Gatorade, or any non-carbonated clear liquid. (Iced Tea, Crystallight) Select green, yellow or clear flavors ? no red or purple. FIVE DAYS PRIOR TO YOUR PROCEDURE Stop consuming all high fiber foods/roughage. NO raw vegetables. NO corn (cookedor raw). NO whole wheat of high fiber breads. NO nuts or popcorn. NO bran or bulking agents. TWO DAYS PRIOR TO PROCEDURE: NO ALCOHOL You may have a light breakfast and a light lunch At 8:00am: mix Miralax 7 dose bottle (4.1 ounces) with 32 ounces of Gatorade or 32 ounces of a non-carbonated liquid and put in the refrigerator to chill. At 12:00 noon: begin a clear liquid diet. Be sure and drink at least 8 ounces ofan approved clear liquid every hour while awake. AVOID anything red or purple incolor. NO milk products or non-dairy creamer. SEE ATTACHED LIST OF APPROVED CLEAR LIQUIDS At 12:30pm: Take two Dulcolax tablets. Do not crush or chew. Take one Gas-X tablet. At 6:00pm: Begin drinking the Miralax / Gatorade mixture you put in the fridge at 8:00am. Drink the solution at a rate of 8 ounces every 30-60 minutes until gone. Take one Gas-X tablet. Continue clear liquids until bed. ONE DAY PRIOR TO YOUR PROCEDURE: NO SOLID FOOD NO ALCOHOL Clear liquids ALL DAY AVOID anything red or purple in color. NO milk products or non-dairy creamer. SEE ATTACHED LIST OF APPROVED CLEAR LIQUIDS. Be sure and drink at least 8 ouncesof an approved clear liquid every hour while awake. TAKING THE PREP: FIRST DOSE OF SuFlave ----FOLLOW SUFLAVE PREP INSTRUCTIONS OUTLINED IN HANDOUT PROVIDED BY OUR OFFICE Continue clear liquids until bed. If you have questions about this colon cleansing, please call our office for assistance at [phone]. APPROVED CLEAR LIQUIDS ? No RED or PURPLE -Gatorade or PowerAde -Clear broth or bouillon ? chicken or beef -Coffee or Tea (no milk or non-dairy creamer) -Carbonated and Non-carbonated beverages -Mickey-Aid or Crystal Light -Strained Fruit Juices -Jell-O, Popsicles or Lithuanian Ice 11/21/24 2508 <Electronically signed by Tato Posey DO> Cosigner Signature (if applicable): CC: Dr. Janet Valencia DO; Tato Posey DO~ Signed [facility] Work Phone: History and physical note Author Tato Posey [facility] Note Date/Time March 07, 2025 9:10 am [facility] Medical Records Department [address] [place] [address] History & Physical Exam 03/07/25 0905 MR#: [id number] Acct: [id number] Name: WINTER JOY Rep #:[id number] : 1955 70 From: Tato Posey DO PCP: Dr. Janet Valencia DO Status:[employer] Location: [place] [address] HPI - General General Date of Admission: 03/07/25 Date of Service: 03/07/25 Chief Complaint: Repeat colonoscopy because of a poor prep HPI Narrative WINTER JOY, is a 70 F who presents with the Chief Complaint: follow-up OV 09/27/2024 69y/o female presents for follow-up of constipation and RLQ pain. She was last seen 08/16/2024 and it was recommended she discontinue Linzess and Miralax. She was started on Amitiza 24mcg BID with recommendation to continue daily prunes and adequate water intake. Colonoscopy performed 08/30/2024 revealed a TA. Prep was poor and it is recommended she repeat the colonoscopy in 6 months (February 2025). Labs completed 08/16/2024 reveal a drop in HGB to 9.8, previously 10.4. In terms of steatosis noted on prior CT, I had ordered labs and FibroScan. Labs revealed she is not immune to Hepatitis A or B and I recommend she complete vaccine series. ELF score is elevated to 9.97 which suggests she has a high probability of advanced fibrosis or cirrhosis. It does not appear she had the FibroScan completed. COLON: 11/21/2024 (this was with 1/2d Miralax and 1d SuFlave) - Preparation of the colon was poor. - Diverticulosis in the recto-sigmoid colon and in the sigmoid colon. - Stool in the rectum, in the recto-sigmoid colon, in the sigmoid colon, in the descending colon, in the transverse colon, at the hepatic flexure, in the ascending colon, in the cecum and at the appendiceal orifice. - No specimens collected. EGD 11/21/2024 - negative for H. pylori - Normal esophagus. - Small hiatal hernia. - Erythematous mucosa in the gastric body. Biopsied. - No gross lesions in the third portion of the duodenum. WORKLOAD MESSAGE On 12/03/24 @ 14:46 Clau Mcclain Wrote To Erin Reed Labs completed 11/21/2024 revealed improvement in HGB to 10.1. Microcytic anemia Fe 26, 6% saturation. EGD and colonoscopy were negative for cause of bleeding. She should follow-up in the office so we can discuss further evaluation of anemia. She should be on pantoprazole 40mg daily and Fe once daily. She should be taking PPI and Fe at least 1 hour apart, as the PPI may hinder the absorptionof Fe. I am concerned with adding Carafate with her other multitude of medications and chance of inhibiting absorption of other medications. I can discuss with her in the office further. Please arrange OV. Thanks WEIGHT: 230lbs today 09/28/2024 222lbs - she reports starting the Hepatitis A/B injections with PCP - she reports she was able to drink all of the bowel prep - weight is up 8lbs - she remains on Amitiza BID - she does feel this is helping with constipation - she is no longer eating prunes - she is now having a BM - she reports she is having a BM at least twice a day, formed - occasional episodes of diarrhea - she continues to take Hydrocodone 1-2 a day [facility] Medical History Normal Holter exam PTSD (post-traumatic stress disorder) Cardiology follow-up encounter History of Holter monitoring Pain FAITH (dyspnea on exertion) Chest pressure Wears glasses Wears dentures CPAP (continuous positive airway pressure) dependence Arthritis Osteoarthritis of left knee Left knee pain Stress incontinence Difficulty chewing History of IBS Former smoker Neuropathy Sjogrens syndrome Leg cramps History of edema History of echocardiogram History of stress test History of irregular heartbeat Chronic low back pain Sensory polyneuropathy Elevated hemoglobin A1c Rheumatoid arthritis TROY (obstructive sleep apnea) Urinary incontinence, urge Urinary urgency Urinary frequency PND (post-nasal drip) Bipolar 2 disorder Obesity (BMI 30-39.9) Mild intermittent asthma in adult without complication Mild mitral regurgitation Mild dilation of ascending aorta TROY (obstructive sleep apnea) Depression Right flank pain Spinal stenosis of lumbar region Hypertension Hyperlipidemia GERD (gastroesophageal reflux disease) Asthma OCD (obsessive compulsive disorder) Chest pain Thoracic aortic aneurysm without rupture Paroxysmal atrial tachycardia Nephrolithiasis Herpes simplex with unspecified complication Loss of appetite Anxiety Lightheadedness Long-term use of high-risk medication Obesity Sinusitis Eustachian tube dysfunction Otitis media Nightmares Rhinorrhea Segmental and somatic dysfunction of cervical region Segmental and somatic dysfunction of thoracic region Back sprain Epigastric abdominal pain Encounter for screening for malignant neoplasm of colon Home Medications ?Medication ?Instructions ?Recorded ?Last Taken ?Type potassium chloride 20 mEq 20 meq PO BID 10/08/2003/06 History tablet,extended release oxybutynin chloride 10 mg 10 mg PO DAILY 07/31/2105/23 History tablet,extended release 24 hr duloxetine 30 mg capsule,delayed 30 mg PO BID 07/07/23 03/06/25 History release trazodone 150 mg tablet 150 mg PO QHS 09/28/2303/06 History vibegron 75 mg tablet (Gemtesa) 75 mg PO DAILY 4 03/06/25 History ondansetron 4 mg disintegrating 4 mg PO Q8H PRN nausea and vomiting 08/16/24 Unknown History tablet pantoprazole 40 mg tablet,delayed 40 mg PO QDAY 03/06/25 History release metoprolol tartrate 25 mg tablet 25 mg PO BID #180 tab s 10/25/24 03/07/25 Rx amlodipine 5 mg tablet 5 mg PO DAILY #30 tabs 11/0203/07/25 Rx lubiprostone 24 mcg capsule 24 mcg PO BID constipation #180 01/11/25 Unknown Rx (Amitiza) caps ascorbic acid (vitamin C) 500 mg 500 mg PO QDAY Unknown History tablet Held on 03/06/25. Instructions: PT STOPPED WHEN TAKING IRON guaifenesin 1,200 mg tablet, 1,200 mg PO BID 01/23/25 03/06/25 History extended release 12 hr lisinopril 20 mg tablet 20 mg PO BID 01/23/25 History tizanidine 4 mg tablet 4 mg PO BID PRN muscle spast icity 01/23/25 Unknown History polyethylene glycol 3350 17 4 g PO ONCE #238 grams 10/23 Unknown Rx gram/dose oral powder (Miralax) Allergy/AdvReac Type Severity Reaction Status Date / Time tramadol (From Ultram) Allergy Intermediate Itching Verified 03/07/25 08:07 oxycodone (From Percocet) Allergy Mild Itching Verified 03/07/25 08:07 cephalexin (From Keflex) Allergy Rash Verified 03/07/25 08:07 flurazepam (From Dalmane) Allergy Other Verified 03/07/25 08:07 shellfish derived Allergy RASH Verified 03/07/25 08:07 divalproex sodium (From AdvReac Intermediate Other - Verified 03/07/25 08:07 Depakote) nightmares quetiapine (From Seroquel) AdvReac Mild Other - Verified 03/07/25 08:07 shaking, lightheaded and abnormal dreams meloxicam AdvReac Unknown Verified 03/07/25 08:07 Family History Father Cancer Alcoholism Hypertension Mother Heart disease H/O weight disorder Myocardial infarction Hypertension COPD (chronic obstructive pulmonary disease) Skin cancer Sister Hypertension Surgical History Hx of colonoscopy Hx of cystoscopy History of cardiac catheterization Hx of surgical procedure bladder sling removal History of bilateral carpal tunnel release H/O eye surgery H/O hand surgery History of total right knee replacement History of appendectomy H/O: hysterectomy Hx laparoscopic cholecystectomy Social History household members: none Smoking Status: Former smoker quit date: 08/29/82 pack-years: 15 second hand exposure: No alcohol intake: never substance use type: does not use ROS Constitutional Constitutional: Denies fatigue, fever(s), poor appetite, weight gain or weight loss Gastrointestinal Gastrointestinal: Denies belching, bloating, change in bowel habits, change in stool character, chewing difficulty, coffee ground emesis, constipation, cramping, diarrhea, dyspepsia, dysphagia, early satiety, excessive flatus, fecalincontinence, heartburn, hematemesis, hematochezia, hemorrhoids, loose stools, melena, nausea, odynophagia, rectal bleeding, tenesmus, vomiting or weight changes Vital Signs Vital Signs Vital Signs: 03/07/25 08:10 03/07/25 08:10 03/07/25 08:37 Temperature 98 F 98 F Temperature Source Temporal Pulse Rate 72 72 Respiratory Rate 16 16 Respiratory Pattern Normal Blood Pressure 138/73 H 138/73 H Blood Pressure Mean 94 Blood Pressure Source Monitor Blood Pressure Position Semi-Fowlers Blood Pressure Location Left Arm Pulse Ox 98 98 Oxygen Delivery Method Room Air Room Air Weight Weight: 227 lb 1.218 oz Body Mass Index (BMI) 40.2 Physical Exam Const alert, oriented x3, no apparent distress and healthy appearing General Appearance: cooperative GI normal to inspection, nondistended, normoactive bowel sounds, soft to palpation,non-tender and non-distended Percussion: normal to percussion Rectal Exam: deferred Assessment & Plan Assessment/Plan (1) Iron deficiency anemia refractory to iron therapy: (2) Iron deficiency anemia: QUALIFIERS: Iron deficiency anemia type: unspecified iron deficiency Qualified Code(s): D50.9 - Iron deficiency anemia, unspecified PLAN: Assessment and Plan Assessment and Plan (1) Constipation: Status: Acute (2) Anemia: Status: Acute Orders: Orders CBC W/Diff, Automated Today D64.9 - Anemia, unspecified Medications: New peg 3350-electrolytes 236-22.74-6.74 -5.86 gram (Golytely) take as directed for split dose bowel prep 240 mL PO Q10M 4,000 mL 0RF Plan 69y/o female presents for follow-up post procedures. EGD and Colonoscopy were completed 11/21/2024. EGD biopsies were negative for H. pylori. Colonoscopy prep was again poor. She reports Amitiza BID has shown improvement in constipation. In terms of iron deficiency anemia she does report starting ferrous sulfate oncedaily 1 month ago. She will repeat a CBC now. I have scheduled her for a colonoscopy with a 2- day bowel prep. Patient Instructions: Continue Amitiza twice a day Piotkqceces-1-evm bowel prep (Suflave-sample and GoLytely) Complete labs today Continue ferrous sulfate daily Follow-up in office post procedure 03/07/25 0910 <Electronically signed by Tato Posey DO> Cosigner Signature (if applicable): CC: Dr. Janet Valencia DO; Tato Posey DO~ Signed [facility] Work Phone: Hospital Discharge instructions Additional Instructions Thank you for trusting us with your care today! Please take Tylenol (2 pills, 650 mg), ibuprofen (2 pills, 400 mg) every 6 hours as needed for pain and fever control. Please wear ankle brace has been provided as much as possible. Please return to the emergency department if your symptoms change or worsen. Please follow with your primary care physician for further outpatient evaluation and management.[facility] Work Phone: Chief Complaint and Reason for Visit Chief Complaint LEFT TOE BONE CYST Chief Complaint LEFT TOE BONE CYST CYSTO, INJECTION BULKMID Reason for Visit Stress incontinence Chief Complaint LEFT TOE BONE CYST CYSTO, INJECTION BULKMID 6 M FU Reason for Visit Stress incontinence TROY (obstructive sleep apnea) Bipolar 2 disorder Mild intermittent asthma in adult without complication Chief Complaint LT KNEE PAIN. RX HER E REPORTED CONSTIPATION Chief Complaint LT KNEE PAIN. RX HER E REPORTED CONSTIPATION SCREENING Chief Complaint OBESITY CERVICAL SPONDYLOSIS/RX HERE Chief Complaint OBESITY CERVICAL SPONDYLOSIS/RX HERE OBESITY Chief Complaint OBESITY CERVICAL SPONDYLOSIS/RX HERE OBESITY OBESITY Chief Complaint OBESITY CERVICAL SPONDYLOSIS/RX HERE OBESITY OBESITY OBESITY KNEE Chief Complaint CERVICAL SPONDYLOSIS /RX HERE OBESITY OBESITY OBESITY KNEE OBESITY SCREENING Chief Complaint OBESITY OBESITY KNEE OBESITY SCREENING OBESITY LEFT KNEE RM 2 Reason for Visit Osteoarthritis of le ft knee Chief Complaint OBESITY KNEE OBESITY SCREENING OBESITY LEFT KNEE RM 2 OBESITY CHEST PAIN, SOB Reason for Visit Osteoarthritis of le ft knee Chief Complaint KNEE OBESITY SCREENING OBESITY LEFT KNEE RM 2 OBESITY CHEST PAIN, SOB OBESITY L KNEE OA RX HERE F/U per PCP request Encounter for screening mammogram for malignant ne Reason for Visit Osteoarthritis of le ft knee TROY (obstructive sleep apnea) Mild intermittent asthma in adult without complication Rheumatoid arthritis Chief Complaint OBESITY SCREENING OBESITY LEFT KNEE RM 2 OBESITY CHEST PAIN, SOB OBESITY L KNEE OA RX HERE F/U per PCP request Encounter for screening mammogram for malignant ne Reason for Visit Osteoarthritis of le ft knee TROY (obstructive sleep apnea) Mild intermittent asthma in adult without complication Rheumatoid arthritis Chief Complaint OBESITY SCREENING OBESITY LEFT KNEE RM 2 OBESITY CHEST PAIN, SOB L KNEE OA RX HERE F/U per PCP request Encounter for screening mammogram for malignant ne OBESITY ASTHMA Asthma Reason for Visit Osteoarthritis of le ft knee TROY (obstructive sleep apnea) Mild intermittent asthma in adult without complication Rheumatoid arthritis Chief Complaint OBESITY SCREENING OBESITY LEFT KNEE RM 2 OBESITY CHEST PAIN, SOB L KNEE OA RX HERE F/U per PCP request Encounter for screening mammogram for malignant ne OBESITY ASTHMA Asthma ASTHMA Asthma Reason for Visit Osteoarthritis of le ft knee TROY (obstructive sleep apnea) Mild intermittent asthma in adult without complication Rheumatoid arthritis Chief Complaint SCREENING OBESITY LEFT KNEE RM 2 OBESITY CHEST PAIN, SOB L KNEE OA RX HERE F/U per PCP request Encounter for screening mammogram for malignant ne OBESITY ASTHMA Asthma ASTHMA Asthma OBESITY Mild intermittent asthma, uncomplicated Reason for Visit Osteoarthritis of le ft knee TROY (obstructive sleep apnea) Mild intermittent asthma in adult without complication Rheumatoid arthritis Chief Complaint OBESITY LEFT KNEE RM 2 OBESITY CHEST PAIN, SOB L KNEE OA RX HERE F/U per PCP request Encounter for screening mammogram for malignant ne OBESITY ASTHMA Asthma ASTHMA Asthma OBESITY Mild intermittent asthma, uncomplicated Reason for Visit Osteoarthritis of le ft knee TROY (obstructive sleep apnea) Mild intermittent asthma in adult without complication Rheumatoid arthritis Chief Complaint OBESITY CHEST PAIN, SOB F/U per PCP request Encounter for screening mammogram for malignant ne OBESITY ASTHMA Asthma ASTHMA Asthma OBESITY Mild intermittent asthma, uncomplicated OBESITY L KNEE OA RX HERE CP ([place]) Reason for Visit Rheumatoid arthritis Chest pain FAITH (dyspnea on exertion) Hypertension Obesity TROY (obstructive sleep apnea) Rheumatoid arthritis Chief Complaint F/U per PCP request Encounter for screening mammogram for malignant ne OBESITY ASTHMA Asthma ASTHMA Asthma OBESITY Mild intermittent asthma, uncomplicated OBESITY CP (MARCELINO) OBESITY L KNEE OA RX HERE LEFT KNEE 3 M FU Reason for Visit Rheumatoid arthritis Chest pain FAITH (dyspnea on exertion) Hypertension Obesity TROY (obstructive sleep apnea) Rheumatoid arthritis Mechanical pain of left knee Asthma Obesity TROY (obstructive sleep apnea) Rheumatoid arthritis Chief Complaint OBESITY ASTHMA Asthma ASTHMA Asthma OBESITY Mild intermittent asthma, uncomplicated OBESITY CP (MARCELINO) OBESITY LEFT KNEE 3 M FU OBESITY L KNEE OA RX HERE LEFT KNEE PAIN CP/FAITH CP/FAITH Amb Documentation Reason for Visit Chest pain FAITH (dyspnea on exertion) Hypertension Obesity TROY (obstructive sleep apnea) Rheumatoid arthritis Mechanical pain of left knee Asthma Obesity TROY (obstructive sleep apnea) Rheumatoid arthritis Chief Complaint ASTHMA Asthma OBESITY Mild intermittent asthma, uncomplicated OBESITY CP (MARCELINO) OBESITY LEFT KNEE 3 M FU L KNEE OA RX HERE LEFT KNEE PAIN CP/FAITH CP/FAITH Amb Documentation LEFT KNEE OBESITY EORDER Reason for Visit Chest pain FAITH (dyspnea on exertion) Hypertension Obesity TROY (obstructive sleep apnea) Rheumatoid arthritis Mechanical pain of left knee Asthma Obesity TROY (obstructive sleep apnea) Rheumatoid arthritis Obesity Rheumatoid arthritis Degenerative tear of meniscus Osteoarthritis of left knee Chief Complaint ASTHMA Asthma OBESITY Mild intermittent asthma, uncomplicated OBESITY CP (MARCELINO) OBESITY LEFT KNEE 3 M FU L KNEE OA RX HERE LEFT KNEE PAIN CP/FAITH CP/FAITH Amb Documentation LEFT KNEE OBESITY EORDER ANGINA Reason for Visit Chest pain FAITH (dyspnea on exertion) Hypertension Obesity TROY (obstructive sleep apnea) Rheumatoid arthritis Mechanical pain of left knee Asthma Obesity TROY (obstructive sleep apnea) Rheumatoid arthritis Obesity Rheumatoid arthritis Degenerative tear of meniscus Osteoarthritis of left knee Chief Complaint ASTHMA Asthma OBESITY Mild intermittent asthma, uncomplicated OBESITY CP (MARCELINO) OBESITY LEFT KNEE 3 M FU L KNEE OA RX HERE LEFT KNEE PAIN CP/FAITH CP/FAITH Amb Documentation LEFT KNEE OBESITY EORDER ANGINA Amb Documentation Reason for Visit Chest pain FAITH (dyspnea on exertion) Hypertension Obesity TROY (obstructive sleep apnea) Rheumatoid arthritis Mechanical pain of left knee Asthma Obesity TROY (obstructive sleep apnea) Rheumatoid arthritis Obesity Rheumatoid arthritis Degenerative tear of meniscus Osteoarthritis of left knee Chief Complaint OBESITY CP (MARCELINO) OBESITY LEFT KNEE 3 M FU LEFT KNEE PAIN CP/FAITH CP/FAITH Amb Documentation LEFT KNEE OBESITY EORDER ANGINA ANGINA Amb Documentation LEFT KNEE RM 3 OBESITY L KNEE OA RX HERE Reason for Visit Chest pain FAITH (dyspnea on exertion) Hypertension Obesity TROY (obstructive sleep apnea) Rheumatoid arthritis Mechanical pain of left knee Asthma Obesity TROY (obstructive sleep apnea) Rheumatoid arthritis Obesity Rheumatoid arthritis Degenerative tear of meniscus Osteoarthritis of left knee DJD (degenerative joint disease) of knee Chief Complaint Admit Date SCREENING July 25, 2024 10:13am OBESITY August 06, 2024 9 :38am Constipation August 16, 2024 10:02am EORDER August 16, 2024 11:36am LUMBAR DEGENERATIVE DISC DISEASE [facility] r 2023 1:15pm OBESITY September 13, 2024 9 :10am LEFT KNEE September 19, 2024 1 2:20pm RM 2 September 19, 2024 1 :18pm Test Result September 20, 2024 9 :18am GUILLAUME September 28, 2024 9 :21am GUILLAUME September 29, 2024 2 :00pm CERVICAL DENGENERATICE DISC DISEASE Febr [facility] 2024 11:29am OBESITY October 18, 2024 9:37am 6 M FU October 25, 2024 1:12pm BP CHECK (DB) November 01, 2024 1:44 pm Reason for Visit Admit Date Constipation August 16, 2024 10:02am RLQ abdominal pain August 16, 2024 10:02am Steatosis, liver August 16, 2024 10:02am Straining during bowel movements [facility] r 2023 10:02am Anemia August 16, 2024 10:02am Constipation August 30, 2024 8: 40am RLQ abdominal pain August 30, 2024 8: 40am Steatosis, liver August 30, 2024 8: 40am Straining during bowel movements August 30, 2024 8:40am Anemia August 30, 2024 8: 40am Osteoarthritis of left knee August 12:20pm Constipation September 20, 2024 9 :18am Dyspepsia September 20, 2024 9 :18am Heartburn September 20, 2024 9 :18am Steatosis, liver September 20, 2024 9 :18am Anemia September 20, 2024 9 :18am Anemia October 25, 2024 1:12pm Hypertension October 25, 2024 1:12pm Obesity October 25, 2024 1:12pm TROY (obstructive sleep apnea) September [id number] 1:12pm Rheumatoid arthritis October 25, 2024 1:12pm Reason for Visit Admit Date Constipation August 16, 2024 10:02am RLQ abdominal pain August 16, 2024 10:02am Steatosis, liver August 16, 2024 10:02am Straining during bowel movements [facility] 2023 10:02am Anemia August 16, 2024 10:02am Constipation August 30, 2024 8: 40am RLQ abdominal pain August 30, 2024 8: 40am Steatosis, liver August 30, 2024 8: 40am Straining during bowel movements August 30, 2024 8:40am Anemia August 30, 2024 8: 40am Osteoarthritis of left knee August 12:20pm Constipation September 20, 2024 9 :18am Dyspepsia September 20, 2024 9 :18am Heartburn September 20, 2024 9 :18am Steatosis, liver September 20, 2024 9 :18am Anemia September 20, 2024 9 :18am Anemia October 25, 2024 1:12pm Hypertension October 25, 2024 1:12pm Obesity October 25, 2024 1:12pm TROY (obstructive sleep apnea) September 302024 1:12pm Rheumatoid arthritis October 25, 2024 1:12pm Anemia November 21, 2024 12: 21pm Encounter for screening for malignant ne oplasm of colon November 21, 2024 12:21pm Chief Complaint Admit Date OBESITY September 13, 2024 9 :10am LEFT KNEE September 19, 2024 1 2:20pm RM 2 September 19, 2024 1 :18pm Test Result September 20, 2024 9 :18am GUILLAUME September 28, 2024 9 :21am GUILLAUME September 29, 2024 2 :00pm CERVICAL DENGENERATICE DISC DISEASE [facility] 2024 11:29am OBESITY October 18, 2024 9:37am 6 M FU October 25, 2024 1:12pm BP CHECK (DB) November 01, 2024 1:44 pm RIGHT KNEE December 19, 2024 1:3 1pm Room 1 December 19, 2024 1:4 4pm FU January 03, 2025 9:36am E-ORDER January 03, 2025 11:36a m Reason for Visit Admit Date Osteoarthritis of left knee August 12:20pm Constipation September 20, 2024 9 :18am Dyspepsia September 20, 2024 9 :18am Heartburn September 20, 2024 9 :18am Steatosis, liver September 20, 2024 9 :18am Anemia September 20, 2024 9 :18am Anemia October 25, 2024 1:12pm Hypertension October 25, 2024 1:12pm Obesity October 25, 2024 1:12pm TROY (obstructive sleep apnea) September [id number] 1:12pm Rheumatoid arthritis October 25, 2024 1:12pm Anemia November 21, 2024 12: 21pm Encounter for screening for malignant ne oplasm of colon November 21, 2024 12:21pm Right knee sprain December 19, 2024 1:3 1pm S/P total hip arthroplasty December 19, 2 025 1:31pm Anemia January 03, 2025 9:36am Constipation January 03, 2025 9:36am Chief Complaint Admit Date GUILLAUME September 28, 2024 9 :21am GUILLAUME September 29, 2024 2 :00pm CERVICAL DENGENERATICE DISC DISEASE [facility] 2024 11:29am OBESITY October 18, 2024 9:37am 6 M FU October 25, 2024 1:12pm BP CHECK (DB) November 01, 2024 1:44 pm RIGHT KNEE December 19, 2024 1:3 1pm Room 1 December 19, 2024 1:4 4pm FU January 03, 2025 9:36am E-ORDER January 03, 2025 11:36a m Amb Documentation January 14, 2025 8:42a m Anemia January 23, 2025 9:10a m MED ONC January 23, 2025 10:37 am OBESITY January 23, 2025 11:01 am Reason for Visit Admit Date Anemia October 25, 2024 1:12pm Hypertension October 25, 2024 1:12pm Obesity October 25, 2024 1:12pm TROY (obstructive sleep apnea) September 302024 1:12pm Rheumatoid arthritis October 25, 2024 1:12pm Anemia November 21, 2024 12: 21pm Encounter for screening for malignant ne oplasm of colon November 21, 2024 12:21pm Right knee sprain December 19, 2024 1:3 1pm S/P total hip arthroplasty December 19, 2 025 1:31pm Anemia January 03, 2025 9:36am Constipation January 03, 2025 9:36am Iron deficiency anemia January 23, 2025 9: 10am 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 January 23, 2025 9:10am Chief Complaint Admit Date GUILLAUME September 29, 2024 2 :00pm CERVICAL DENGENERATICE DISC DISEASE Fe[facility] 2024 11:29am OBESITY October 18, 2024 9:37am 6 M FU October 25, 2024 1:12pm BP CHECK (DB) November 01, 2024 1:44 pm RIGHT KNEE December 19, 2024 1:3 1pm Room 1 December 19, 2024 1:4 4pm FU January 03, 2025 9:36am E-ORDER January 03, 2025 11:36a m Amb Documentation January 14, 2025 8:42a m Anemia January 23, 2025 9:10a m OBESITY January 23, 2025 11:01 am MED ONC January 25, 2025 2:02p m Chief Complaint Admit Date RIGHT KNEE December 19, 2024 1:3 1pm Room 1 December 19, 2024 1:4 4pm FU January 03, 2025 9:36am E-ORDER January 03, 2025 11:36a m Amb Documentation January 14, 2025 8:42a m Anemia January 23, 2025 9:10a m OBESITY January 23, 2025 11:01 am MED ONC February 22, 2025 9:30 am Reason for Visit Admit Date Anemia November 21, 2024 12: 21pm Encounter for screening for malignant ne oplasm of colon November 21, 2024 12:21pm Right knee sprain December 19, 2024 1:3 1pm S/P total hip arthroplasty December 19, 2 025 1:31pm Anemia January 03, 2025 9:36am Constipation January 03, 2025 9:36am Iron deficiency anemia January 23, 2025 9: 10am 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 January 23, 2025 9:10am Iron deficiency anemia March 07, 2025 7 :37am 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 March 07, 2025 7:37am Chief Complaint Admit Date RIGHT KNEE December 19, 2024 1:3 1pm Room 1 December 19, 2024 1:4 4pm FU January 03, 2025 9:36am E-ORDER January 03, 2025 11:36a m Amb Documentation January 14, 2025 8:42a m Anemia January 23, 2025 9:10a m OBESITY January 23, 2025 11:01 am [facility] March 20, 2025 1:24 pm MED ONC March 20, 2025 1:45 pm Reason for Visit Admit Date Anemia November 21, 2024 12: 21pm Encounter for screening for malignant ne oplasm of colon November 21, 2024 12:21pm Right knee sprain December 19, 2024 1:3 1pm S/P total hip arthroplasty December 19, 2 025 1:31pm Anemia January 03, 2025 9:36am Constipation January 03, 2025 9:36am Iron deficiency anemia January 23, 2025 9: 10am 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 January 23, 2025 9:10am Iron deficiency anemia March 07, 2025 7 :37am 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 March 07, 2025 7:37am Iron deficiency anemia March 20, 2025 1 :24pm Chief Complaint Admit Date RIGHT KNEE December 19, 2024 1:3 1pm Room 1 December 19, 2024 1:4 4pm FU January 03, 2025 9:36am E-ORDER January 03, 2025 11:36a m Amb Documentation January 14, 2025 8:42a m Anemia January 23, 2025 9:10a m OBESITY January 23, 2025 11:01 am [facility] March 20, 2025 1:24 pm MED ONC March 20, 2025 1:45 pm Test Result March 27, 2025 10:2 8am Reason for Visit Admit Date Right knee sprain December 19, 2024 1:3 1pm S/P total hip arthroplasty December 19, 2 025 1:31pm Anemia January 03, 2025 9:36am Constipation January 03, 2025 9:36am Iron deficiency anemia January 23, 2025 9: 10am 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 January 23, 2025 9:10am Iron deficiency anemia March 07, 2025 7 :37am 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 March 07, 2025 7:37am Iron deficiency anemia March 20, 2025 1 :24pm Chief Complaint Admit Date RIGHT KNEE December 19, 2024 1:3 1pm Room 1 December 19, 2024 1:4 4pm FU January 03, 2025 9:36am E-ORDER January 03, 2025 11:36a m Amb Documentation January 14, 2025 8:42a m Anemia January 23, 2025 9:10a m OBESITY January 23, 2025 11:01 am [facility] March 20, 2025 1:24 pm MED ONC March 20, 2025 1:45 pm Test Result March 27, 2025 10:2 8am OBESITY March 27, 2025 11:1 8am Reason for Visit Admit Date Right knee sprain December 19, 2024 1:3 1pm S/P total hip arthroplasty December 19 1:31pm Anemia January 03, 2025 9:36am Constipation January 03, 2025 9:36am Iron deficiency anemia January 23, 2025 9: 10am 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 January 23, 2025 9:10am Iron deficiency anemia March 07, 2025 7 :37am 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 March 07, 2025 7:37am Iron deficiency anemia March 20, 2025 1 :24pm Constipation March 27, 2025 10:2 8am Chief Complaint Admit Date RIGHT KNEE December 19, 2024 1:3 1pm Room 1 December 19, 2024 1:4 4pm FU January 03, 2025 9:36am E-ORDER January 03, 2025 11:36a m Amb Documentation January 14, 2025 8:42a m Anemia January 23, 2025 9:10a m OBESITY January 23, 2025 11:01 am [facility] March 20, 2025 1:24 pm MED ONC March 20, 2025 1:45 pm Test Result March 27, 2025 10:2 8am OBESITY March 27, 2025 11:1 8am 1 M FU April 12, 2025 11 :06am Family History No Family History Records Found Relationship Condition Age at Onset Recorded Date/T yissel father Malignant neoplasm Unknown Alcoholism Unknown Hypertension Unknown mother Cardiac disease Unknown History of weight disorder Unknown Myocardial infarction Unknown Chronic obstructive pulmonary disease Unk nown Malignant neoplasm of skin Unknown sister Hypertension Unknown Advance Directives No Advanced Directives Records Found Advance Directive Response Recorded Date/ Time Advance Directives No June 22, 2016 8:21am Living Will No August 05 2:14pm Power of Automobile Radio Repairer No August 05, 2021 2:14pm Advance Directive Response Recorded Date/ Time Advance Directives No June 22, 2016 8:21am Living Will No January 01, 2022 9: 42am Power of Automobile Radio Repairer No January 01, 2022 9:42am Advance Directive Response Recorded Date/ Time Advance Directives No June 22, 2016 7:21am Living Will No January 01, 2022 8: 42am Power of Automobile Radio Repairer No January 01, 2022 8:42am Advance Directive Response Recorded Date/ Time Advance Directives No June 22, 2016 8:21am Living Will No March 22, 2023 9:34am Power of Automobile Radio Repairer No March 22 9:34am Advance Directive Response Recorded Date/ Time Advance Directives No June 2:40pm Living Will No July 12, 2 023 2:40pm Power of Automobile Radio Repairer No July 12, 2023 2:40pm Advance Directive Response Recorded Date/ Time Advance Directives No June 3:40pm Living Will No July 12, 2 023 3:40pm Power of Automobile Radio Repairer No July 12, 2023 3:40pm Advance Directive Response Recorded Date/ Time Advance Directives No November 28 10:01am Living Will No November 29, 2023 10:01am Power of Automobile Radio Repairer No November 28 10:01am Advance Directive Response Recorded Date/ Time Advance Directives No December 18, 2 024 8:15am Living Will No December 19, 2023 8:15am Power of Automobile Radio Repairer No December 18 8:15am Advance Directive Response Recorded Date/ Time Living Will No August 29 1:38am Power of Automobile Radio Repairer No August 29 2 025 1:38am Living Will No September 29 4:07pm Power of Automobile Radio Repairer No September 29, 2024 4:07pm Living Will No April 24 12:31pm Power of Automobile Radio Repairer No April 24, 2 024 12:31pm Living Will No July 29 1:22am Power of Automobile Radio Repairer No July 29, 2024 1:22am Living Will No August 28 2 024 1:44pm Power of Automobile Radio Repairer No August 28, 2024 1:44pm Living Will No September 28 10:51am Power of Automobile Radio Repairer No September 28, 2024 10:51am Living Will No September 29 1:59am Power of Automobile Radio Repairer No September 29, 2024 1:59am Advance Directives No January 30 1:25pm Advance Directive Response Recorded Date/ Time Living Will No August 29 1:38am Do you have a Healthcare Power of Automobile Radio Repairer? No August 29, 2024 1:38am Living Will No November 16, 2024 10:46am Do you have a Healthcare Power of Automobile Radio Repairer? No November 16, 2024 10:46am Living Will No September 29 4:07pm Do you have a Healthcare Power of Automobile Radio Repairer? No September 29, 2024 4:07pm Living Will No April 24 12:31pm Do you have a Healthcare Power of Automobile Radio Repairer? No April 24, 2024 12:31pm Living Will No July 29 1:22am Do you have a Healthcare Power of Automobile Radio Repairer? No July 29, 2024 1:22am Living Will No August 28, 1:44pm Do you have a Healthcare Power of Automobile Radio Repairer? No August 28, 2024 1:44pm Living Will No September 28 10:51am Do you have a Healthcare Power of Automobile Radio Repairer? No September 28, 2024 10:51am Living Will No September 29 1:59am Do you have a Healthcare Power of Automobile Radio Repairer? No September 29, 2024 1:59am Advance Directives No January 30 1:25pm Advance Directive Response Recorded Date/ Time Living Will No August 29 1:38am Do you have a Healthcare Power of Automobile Radio Repairer? No August 29, 2024 1:38am Living Will No November 16, 2024 10:46am Do you have a Healthcare Power of Automobile Radio Repairer? No November 16, 2024 10:46am Living Will No September 29 4:07pm Do you have a Healthcare Power of Automobile Radio Repairer? No September 29, 2024 4:07pm Living Will No September 28 10:51am Do you have a Healthcare Power of Automobile Radio Repairer? No September 28, 2024 10:51am Living Will No September 29 1:59am Do you have a Healthcare Power of Automobile Radio Repairer? No September 29, 2024 1:59am Advance Directives No January 30 1:25pm Advance Directive Response Recorded Date/ Time Living Will No November 16, 2024 10:46am Do you have a Healthcare Power of Automobile Radio Repairer? No November 16, 2024 10:46am Living Will No September 29 4:07pm Do you have a Healthcare Power of Automobile Radio Repairer? No September 29, 2024 4:07pm Living Will No October 27, 2024 2:53am Do you have a Healthcare Power of Automobile Radio Repairer? No October 27, 2024 2:53am Living Will No September 28 10:51am Do you have a Healthcare Power of Automobile Radio Repairer? No September 28, 2024 10:51am Living Will No September 29 1:59am Do you have a Healthcare Power of Automobile Radio Repairer? No September 29, 2024 1:59am Advance Directives No January 30 1:25pm Advance Directive Response Recorded Date/ Time Living Will No November 16, 2024 10:46am Do you have a Healthcare Power of Automobile Radio Repairer? No November 16, 2024 10:46am Living Will No September 29 4:07pm Do you have a Healthcare Power of Automobile Radio Repairer? No September 29, 2024 4:07pm Living Will No October 27, 2024 2:53am Do you have a Healthcare Power of Automobile Radio Repairer? No October 27, 2024 2:53am Living Will No September 29 1:59am Do you have a Healthcare Power of Automobile Radio Repairer? No September 29, 2024 1:59am Advance Directives No January 30 1:25pm Advance Directive Response Recorded Date/ Time Living Will No November 16, 2024 10:46am Do you have a Healthcare Power of Automobile Radio Repairer? No November 16, 2024 10:46am Living Will No October 27, 2024 2:53am Do you have a Healthcare Power of Automobile Radio Repairer? No October 27, 2024 2:53am Do you have a Healthcare Power of Automobile Radio Repairer? No March 06, 2025 12:04pm Advance Directives No January 30 1:25pm Advance Directive Response Recorded Date/ Time Living Will No October 27, 2024 2:53am Do you have a Healthcare Power of Automobile Radio Repairer? No October 27, 2024 2:53am Do you have a Healthcare Power of Automobile Radio Repairer? No March 06, 2025 12:04pm Advance Directives No January 30 1:25pm Advance Directive Response Recorded Date/ Time Living Will No October 27, 2024 2:53am Do you have a Healthcare Power of Automobile Radio Repairer? No October 27, 2024 2:53am Do you have a Healthcare Power of Automobile Radio Repairer? No March 06, 2025 12:04pm Living Will No January 27, 2025 1 2:03am Do you have a Healthcare Power of Automobile Radio Repairer? No January 27, 2025 12:03am Advance Directives No January 30 1:25pm Summary Purpose Additional Source Comments Source Comments (unrecognize d section and content) In the event this informatio n is protected by the Federal Confidentiality of Alcohol and Drug Abuse Patient Records regulations: The Federal rules restrict any use of the information to criminally investigate or prosecute any alcohol or drug abuse patient.[facility] the event this information is protected by the Federal Confidentiality of Alcohol and Drug Abuse Patient Records regulations: The Federal rules restrict any use of the information to criminally investigate or prosecute any alcohol or drug abuse patient.[facility] the event this information is protected by the Federal Confidentiality of Alcohol and Drug Abuse Patient Records regulations: The Federal rules restrict any use of the information to criminally investigate or prosecute any alcohol or drug abuse patient.[facility] the event this information is protected by the Federal Confidentiality of Alcohol and Drug Abuse Patient Records regulations: The Federal rules restrict any use of the information to criminally investigate or prosecute any alcohol or drug abuse patient.[facility] the event this information is protected by the Federal Confidentiality of Alcohol and Drug Abuse Patient Records regulations: The Federal rules restrict any use of the information to criminally investigate or prosecute any alcohol or drug abuse patient.[facility] the event this information is protected by the Federal Confidentiality of Alcohol and Drug Abuse Patient Records regulations: The Federal rules restrict any use of the information to criminally investigate or prosecute any alcohol or drug abuse patient.[facility] the event this information is protected by the Federal Confidentiality of Alcohol and Drug Abuse Patient Records regulations: The Federal rules restrict any use of the information to criminally investigate or prosecute any alcohol or drug abuse patient.[facility] the event this information is protected by the Federal Confidentiality of Alcohol and Drug Abuse Patient Records regulations: The Federal rules restrict any use of the information to criminally investigate or prosecute any alcohol or drug abuse patient.[facility] Reason for Visit (unrecogniz ed section and content) Reason Comments Patient Update Reason Comments Patient Question Reason Comments Sjogren's Disease Reason Comments Orders Reason Comments Future Appointment labs Reason Comments Sjogren's Disease Osteoarthritis Consult Care Teams (unrecognized sec tion and content) Financial Processing Clerk Relationship Specialty Start Date End Date Janet Valencia DO PCP - General Family Practice 06/10/14 Financial Processing Clerk Relationship Specialty Start Date End Date Janet Valencia DO PCP - General Family Practice 06/10/14 Team Status: Active Member Role Status Dates Dr. Janet Valencia DO Family Provider Active Dr. Janet Valencia DO Primary Care Provider Active Team Status: Inactive Member Role Status Dates Dr. Janet Valencia DO Primary Care Provider, Attendin g Provider Active Team Status: Active Member Role Status Dates Dr. Janet Valencia DO Primary Care Provider Active Lizet Pate NP-C Attending Provider, Referring Pro vider Active Team Status: Active Member Role Status Dates Dr. Janet Richard , DO Primary Care Provider, Attendin g Provider Active Team Status: Inactive Member Role Status Dates Dr. Janet Valencia DO Primary Care Prov ider, Attending Provider, Referring Provider Active Team Status: Inactive Member Role Status Dates Dr. Janet Valencia DO Primary Care Provider Active Lizet Herlinda , [employer]ING [employer] LEADER-C Attending Provider, Referring Pro vider Active Team Status: Inactive Member Role Status Dates Dr. Janet Valencia DO Primary Care Provider Active Dr. Josue Apodaca DO Attending Provider, Emergency P rovider Active Financial Processing Clerk Relationship Specialty Start Date End Date Janet Valencia PCP - General Family Medicine 06/10/14 Financial Processing Clerk Relationship Specialty Start Date End Date Richard Janet Reynolds DO PCP - General Family Medicine 06/10/14 Team Status: Active Member Role Status Dates Dr. Janet Valencia DO Primary Care Prov ider, Attending Provider, Referring Provider Active Team Status: Inactive Member Role Status Dates Dr. Janet Valencia DO Primary Care Provider, Referrin g Provider Active Dr. John Agee , Attending Provider Active Team Status: Inactive Member Role Status Dates Dr. Janet Valencia DO Primary Care Provider Active Dr. Glenn Nava MD Attending Provider Active Team Status: Active Member Role Status Dates Dr. Janet Valencia DO Family Provider Active Keisha Clay , [employer]ING [employer] LEADER-C Primary Care Provider Active Team Status: Inactive Member Role Status Dates Keisha Williamson [employer]ING [employer] LEADER-C Primary Care Provide r, Attending Provider, Referring Provider Active Team Status: Active Member Role Status Dates Keisha Howardgar , [employer]ING [employer] LEADER-C Primary Care Provide r, Attending Provider, Referring Provider Active Team Status: Inactive Member Role Status Dates Keisha Williamson , [employer]ING [employer] LEADER-C Primary Care Provider, Referring P rovider Active Dr. Cristobal Olmos MD Attending Provider Active Team Status: Inactive Member Role Status Dates Dr. Janet Valencia DO Attending Provider, Referring P rovider Active Keisha Clay , [employer]ING [employer] LEADER-C Primary Care Provider Active Team Status: Active Member Role Status Dates Lizet Teach , [employer]ING [employer] LEADER-C Attending Provider, Referring Pro vider Active Keisha Clay , [employer]ING [employer] LEADER-C Primary Care Provider Active Team Status: Active Member Role Status Dates Dr. Janet Valencia DO Attending Provider, Referring P rovider Active Keisha Williamson [employer]ING [employer] LEADER-C Primary Care Provider Active Team Status: Active Member Role Status Dates Dr. Cristobal Olmos MD Referring Provider, Other Provid er Active Dr. Janet Valencia DO Primary Care Provider Active Dr. Hao Olmos DO Attending Provider Active Team Status: Active Member Role Status Dates Dr. Cristobal Olmos MD Attending Provider, Referring Pr ovider Active Dr. Janet Valencia DO Primary Care Provider Active Team Status: Inactive Member Role Status Dates Dr. Cristobal Olmos MD Attending Provider, Referring Pr ovider Active Dr. Janet Valencia DO Primary Care Provider Active Team Status: Active Member Role Status Dates Dr. Cristobal Olmos MD Attending Provider , Referring Provider, Other Provider Active Dr. Janet Valencia DO Primary Care Provider Active Team Status: Active Member Role Status Dates Dr. Janet Valencia DO Primary Care Provider Active Dr. Glenn Nava MD Attending Provider Active Team Status: Inactive Member Role Status Dates Keisha Williamson NP-C Primary Care Provider Active Dr. Cristobal Olmos MD Attending Provider, Referring Pr ovider Active Team Status: Active Member Role Status Dates Dr. Janet Valencia DO Primary Care Provider Active Dr. Glenn Nava MD Attending Provider, Referring Pro vider Active Team Status: Inactive Member Role Status Dates Dr. Janet Valencia DO Primary Care Provider, Referrin g Provider Active Dr. Ravindra Singh MD Attending Provider Active Team Status: Inactive Member Role Status Dates Keisha Williamson [employer]ING [employer] LEADER-C Referring Provider Active Angélica Marcelino [employer]IC[employer]CTOR PROCESSING [employer] LEADER, [employer]ING [employer] LEADER-C Attending Provider Active Dr. Janet Valencia DO Primary Care Provider Active Team Status: Active Member Role Status Dates Dr. Janet Valencia DO Primary Care Provider Active Dr. Ravindra Singh MD Attending Provider , Referring Provider, Other Provider Active Team Status: Active Member Role Status Dates Dr. Janet Valencia DO Primary Care Provider Active Supriya Schafer [employer]ING [employer] LEADER, [employer]ING [employer] LEADER-C Attending Provider Active Team Status: Active Member Role Status Dates Dr. Janet Valencia DO Primary Care Provider Active Dr. Ravindra Singh MD Attending Provider, Referring Pr ovider Active Team Status: Inactive Member Role Status Dates Dr. Janet Valencia DO Primary Care Provider Active Dr. John Agee DO Attending Provider, Referring Provider Active Team Status: Inactive Member Role Status Dates Dr. Janet Valencia DO Primary Care Provider Active Dr. Ravindra Singh MD Attending Provider, Referring Pr ovider Active Team Status: Active Member Role Status Dates Dr. Janet Valencia DO Primary Care Provider Active Supriya Cruz Attending Provider Active Financial Processing Clerk Relationship Specialty Start Date End Date Janet Valencia DO PCP - General Family Medicine 06/10/14 Team Status: Active Member Role Status Dates Dr. Janet Valencia DO Primary Care Provider Active Team Status: Inactive Member Role Status Dates Dr. Janet Valencia DO Primary Care Provider Active Start: July 25, 2024 End: July 25, 2024 Dr. Janet Valencia DO Attending Provider Active Start: July 25, 2024 End: July 25, 2024 Dr. Janet Valencia DO Referring Provider Active Start: July 25, 2024 End: July 25, 2024 Team Status: Inactive Member Role Status Dates Dr. Janet Valencia DO Primary Care Provider Active Start: August 06, 2024 End: August 28, 2024 Dr. Janet Valencia DO Attending Provider Active Start: August 06, 2024 End: August 28, 2024 Dr. Janet Valencia DO Referring Provider Active Start: August 06, 2024 End: August 28, 2024 Team Status: Inactive Member Role Status Dates Dr. Janet Valencia DO Primary Care Provider Active Start: August 16, 2024 End: August 16, 2024 Dr. Janet Valencia DO Referring Provider Active Start: August 16, 2024 End: August 16, 2024 KRISTINE Sanchez Attending Provider Active Start: August 16, 2024 End: August 16, 2024 Team Status: Inactive Member Role Status Dates Dr. Janet Valencia DO Primary Care Provider Active Start: August 16, 2024 End: August 16, 2024 ZAHIRA SanchezC Attending Provider Active Start: August 16, 2024 End: August 16, 2024 Clau Johny , [employer]ING [employer] LEADER-C Referring Provider Active Start: August 16, 2024 End: August 16, 2024 Team Status: Inactive Member Role Status Dates Dr. Janet Valencia DO Primary Care Provider Active Start: August 21, 2024 End: August 21, 2024 NP. Tory Hewitt Attending Provider Active Star t: August 21, 2024 End: August 21, 2024 SEMICONDUCTOR PROCESSING GROUP LEADERJohnathan Hewitt Referring Provider Active Star t: August 21, 2024 End: August 21, 2024 Team Status: Inactive Member Role Status Dates Dr. Janet Valencia DO Primary Care Provider Active Start: August 30, 2024 End: August 30, 2024 Dr. Janet Valencia DO Referring Provider Active Start: August 30, 2024 End: August 30, 2024 Dr. Tato Posey DO Attending Provider Active Start: August 30, 2024 End: August 30, 2024 Team Status: Active Member Role Status Dates Dr. Janet Valencia DO Primary Care Provider Active Start: August 30, 2024 Dr. Janet Valencia DO Referring Provider Active Start: August 30, 2024 Dr. Tato Posey DO Attending Provider Active Start: August 30, 2024 Dr. Tato Posey DO Other Provider Active St art: August 30, 2024 Team Status: Inactive Member Role Status Dates Dr. Janet Valencia DO Primary Care Provider Active Start: September 13, 2024 End: September 28, 2024 Dr. Janet Valencia DO Attending Provider Active Start: September 13, 2024 End: September 28, 2024 Dr. Janet Valencia DO Referring Provider Active Start: September 13, 2024 End: September 28, 2024 Team Status: Inactive Member Role Status Dates Dr. Janet Valencia DO Primary Care Provider Active Start: September 19, 2024 End: September 19, 2024 Dr. Janet Valencia DO Referring Provider Active Start: September 19, 2024 End: September 19, 2024 Dr. John Agee DO Attending Provider Active Start: September 19, 2024 End: September 19, 2024 Team Status: Inactive Member Role Status Dates Dr. Janet Valencia DO Primary Care Provider Active Start: September 19, 2024 End: September 19, 2024 Dr. Glenn Nava MD Attending Provider Active S tart: September 19, 2024 End: September 19, 2024 Team Status: Inactive Member Role Status Dates Dr. Janet Valencia DO Primary Care Provider Active Start: September 20, 2024 End: September 20, 2024 Dr. Janet Valencia DO Referring Provider Active Start: September 20, 2024 End: September 20, 2024 Clau Mcclain NP-C Attending Provider Active Start: September 20, 2024 End: September 20, 2024 Team Status: Inactive Member Role Status Dates Dr. Janet Valencia DO Primary Care Provider Active Start: September 20, 2024 End: September 20, 2024 Clau Mcclain NP-C Attending Provider Active Start: September 20, 2024 End: September 20, 2024 Clau Mcclain NP-C Referring Provider Active Start: September 20, 2024 End: September 20, 2024 Team Status: Inactive Member Role Status Dates Dr. Janet Valencia DO Primary Care Provider Active Start: September 28, 2024 End: September 28, 2024 Dr. Carolyne eLigh DO Attending Provider Active Start: September 28, 2024 End: September 28, 2024 Dr. Carolyne Leigh DO Emergency Provider Active Start: September 28, 2024 End: September 28, 2024 Team Status: Inactive Member Role Status Dates Dr. Janet Valencia DO Primary Care Provider Active Start: September 29, 2024 End: September 29, 2024 Dr. Anthony Torres DO Attending Provider Active Start: September 29, 2024 End: September 29, 2024 Dr. Anthony Torres DO Emergency Provider Active Start: September 29, 2024 End: September 29, 2024 Team Status: Inactive Member Role Status Dates Dr. Janet Valencia DO Primary Care Provider Active Start: October 09, 2024 End: October 09, 2024 NP. Tory Hewitt Attending Provider Active Star t: October 09, 2024 End: October 09, 2024 NP. Tory Hewitt Referring Provider Active Star t: October 09, 2024 End: October 09, 2024 Dr. Kunal Esteban MD Other Provider Active Sta rt: October 09, 2024 End: October 09, 2024 Team Status: Inactive Member Role Status Dates Dr. Janet Valencia DO Primary Care Provider Active Start: October 18, 2024 End: October 26, 2024 Dr. Janet Valencia DO Attending Provider Active Start: October 18, 2024 End: October 26, 2024 Dr. Janet Valencia DO Referring Provider Active Start: October 18, 2024 End: October 26, 2024 Team Status: Inactive Member Role Status Dates Dr. Janet Valencia DO Primary Care Provider Active Start: October 25, 2024 End: October 25, 2024 Dr. Janet Valencia DO Referring Provider Active Start: October 25, 2024 End: October 25, 2024 Dr. Ravindra Singh MD Attending Provider Active Start: October 25, 2024 End: October 25, 2024 Team Status: Inactive Member Role Status Dates Dr. Janet Valencia DO Primary Care Provider Active Start: October 25, 2024 End: October 25, 2024 Dr. Ravindra Singh MD Attending Provider Active Start: October 25, 2024 End: October 25, 2024 Dr. Ravindra Singh MD Referring Provider Active Start: October 25, 2024 End: October 25, 2024 Team Status: Inactive Member Role Status Dates Dr. Janet Valencia DO Primary Care Provider Active Start: November 01, 2024 End: November 01, 2024 Dr. Janet Valencia DO Referring Provider Active Start: November 01, 2024 End: November 01, 2024 Dr. Ravindra Singh MD Attending Provider Active Start: November 01, 2024 End: November 01, 2024 Team Status: Inactive Member Role Status Dates Dr. Janet Valencia DO Primary Care Provider Active Start: November 21, 2024 End: November 21, 2024 Dr. Janet Valencia DO Referring Provider Active Start: November 21, 2024 End: November 21, 2024 Dr. Tato Posey DO Attending Provider Active Start: November 21, 2024 End: November 21, 2024 KRISTINE Sanchez Other Provider Active St art: November 21, 2024 End: November 21, 2024 Team Status: Active Member Role Status Dates Dr. Janet Valencia DO Primary Care Provider Active Start: November 21, 2024 Dr. Janet Valencia DO Referring Provider Active Start: November 21, 2024 Dr. Tato Posey DO Attending Provider Active Start: November 21, 2024 Dr. Tato Posey , DO Other Provider Active St art: November 21, 2024 KRISTINE Sanchez Other Provider Active St art: November 21, 2024 Financial Processing Clerk Relationship Specialty Start Date End Date Janet Vaelncia DO PCP - [facility] Medicine 06/10/14 Financial Processing Clerk Relationship Specialty Start Date End Date Janet Valencia DO PCP - [facility] Medicine 06/10/14 Team Status: Inactive Member Role Status Dates Dr. Janet Valencia DO Primary Care Provider Active Start: December 19, 2024 End: December 19, 2024 Dr. Janet Valencia DO Referring Provider Active Start: December 19, 2024 End: December 19, 2024 Dr. John Agee DO Attending Provider Active Start: December 19, 2024 End: December 19, 2024 Team Status: Inactive Member Role Status Dates Dr. Janet Valencia DO Primary Care Provider Active Start: December 19, 2024 End: December 19, 2024 Dr. Glenn Nava MD Attending Provider Active S tart: December 19, 2024 End: December 19, 2024 Team Status: Inactive Member Role Status Dates Dr. Janet Valencia DO Primary Care Provider Active Start: January 03, 2025 End: January 03, 2025 Dr. Janet Valencia DO Referring Provider Active Start: January 03, 2025 End: January 03, 2025 KRISTINE Sanchez Attending Provider Active Start: January 03, 2025 End: January 03, 2025 Team Status: Inactive Member Role Status Dates Dr. Janet Valencia DO Primary Care Provider Active Start: January 03, 2025 End: January 03, 2025 KRISTINE Sanchez Attending Provider Active Start: January 03, 2025 End: January 03, 2025 Clau Johny , [employer] Referring Provider Active Start: January 03, 2025 End: January 03, 2025 Team Status: Active Member Role Status Dates Dr. Janet Valencia DO Primary Care Provider Active Start: January 14, 2025 Jaqui Jordan Attending Provider Active Start: January 14, 2025 Team Status: Inactive Member Role Status Dates Dr. Janet Valencia DO Primary Care Provider Active Start: January 23, 2025 End: January 23, 2025 JAYASHREE Glasgow Referring Provider Active Start: January 23, 2025 End: January 23, 2025 Dr. John Jang MD Attending Provider Active S tart: January 23, 2025 End: January 23, 2025 Team Status: Active Member Role Status Dates Dr. Janet Valencia DO Primary Care Provider Active Start: January 23, 2025 Dr. John Jang MD Attending Provider Active S tart: January 23, 2025 Dr. John Jang MD Referring Provider Active S tart: January 23, 2025 Team Status: Active Member Role Status Dates Dr. Janet Valencia DO Primary Care Provider Active Start: January 23, 2025 Dr. Janet Valencia DO Attending Provider Active Start: January 23, 2025 Dr. Janet Valencia DO Referring Provider Active Start: January 23, 2025 Team Status: Inactive Member Role Status Dates Dr. Janet Valencia DO Primary Care Provider Active Start: January 23, 2025 End: January 26, 2025 Dr. Janet Valencia DO Attending Provider Active Start: January 23, 2025 End: January 26, 2025 Dr. Janet Valencia DO Referring Provider Active Start: January 23, 2025 End: January 26, 2025 Team Status: Active Member Role Status Dates Dr. Janet Valencia DO Primary Care Provider Active Start: January 25, 2025 Dr. John Jang MD Attending Provider Active S tart: January 25, 2025 Dr. John Jang MD Referring Provider Active S tart: January 25, 2025 Team Status: Active Member Role/Relationship Status Dates Dr. Janet Valencia DO Primary Care Provider Active Team Status: Inactive Member Role/Relationship Status Dates Dr. Janet Valencia DO Primary Care Provider Active Start: November 21, 2024 End: November 21, 2024 Dr. Janet Valencia DO Referring Provider Active Start: November 21, 2024 End: November 21, 2024 Dr. Tato Posey DO Attending Provider Active Start: November 21, 2024 End: November 21, 2024 KRISTINE Sanchez Other Provider Active St art: November 21, 2024 End: November 21, 2024 Team Status: Active Member Role/Relationship Status Dates Dr. Janet Valencia DO Primary Care Provider Active Start: November 21, 2024 Dr. Janet Valencia DO Referring Provider Active Start: November 21, 2024 Dr. Tato Posey DO Attending Provider Active Start: November 21, 2024 Dr. Tato Posey DO Other Provider Active St art: November 21, 2024 KRISTINE Sanchez Other Provider Active St art: November 21, 2024 Team Status: Inactive Member Role/Relationship Status Dates Dr. Janet Valencia DO Primary Care Provider Active Start: December 19, 2024 End: December 19, 2024 Dr. Janet Valencia DO Referring Provider Active Start: December 19, 2024 End: December 19, 2024 Dr. John Agee DO Attending Provider Active Start: December 19, 2024 End: December 19, 2024 Team Status: Inactive Member Role/Relationship Status Dates Dr. Janet Valencia DO Primary Care Provider Active Start: December 19, 2024 End: December 19, 2024 Dr. Glenn Nava MD Attending Provider Active S tart: December 19, 2024 End: December 19, 2024 Team Status: Inactive Member Role/Relationship Status Dates Dr. Janet Valencia DO Primary Care Provider Active Start: January 03, 2025 End: January 03, 2025 Dr. Janet Valencia DO Referring Provider Active Start: January 03, 2025 End: January 03, 2025 KRISTINE Sanchez Attending Provider Active Start: January 03, 2025 End: January 03, 2025 Team Status: Inactive Member Role/Relationship Status Dates Dr. Janet Valencia DO Primary Care Provider Active Start: January 03, 2025 End: January 03, 2025 KRISTINE Sanchez Attending Provider Active Start: January 03, 2025 End: January 03, 2025 KRISTINE Sanchez Referring Provider Active Start: January 03, 2025 End: January 03, 2025 Team Status: Active Member Role/Relationship Status Dates Dr. Janet Valencia DO Primary Care Provider Active Start: January 14, 2025 Jaqui Jordan Attending Provider Active Start: January 14, 2025 Team Status: Inactive Member Role/Relationship Status Dates Dr. Janet Valencia DO Primary Care Provider Active Start: January 23, 2025 End: January 23, 2025 JAYASHREE Glasgow Referring Provider Active Start: January 23, 2025 End: January 23, 2025 Dr. John Jang MD Attending Provider Active S tart: January 23, 2025 End: January 23, 2025 Team Status: Inactive Member Role/Relationship Status Dates Dr. Janet Valencia DO Primary Care Provider Active Start: January 23, 2025 End: January 26, 2025 Dr. Janet Valencia DO Attending Provider Active Start: January 23, 2025 End: January 26, 2025 Dr. Janet Valencia DO Referring Provider Active Start: January 23, 2025 End: January 26, 2025 Team Status: Active Member Role/Relationship Status Dates Dr. Janet Valencia DO Primary Care Provider Active Start: February 22, 2025 Dr. John Jang MD Attending Provider Active S tart: February 22, 2025 Dr. John Jang MD Referring Provider Active S tart: February 22, 2025 Team Status: Inactive Member Role/Relationship Status Dates Dr. Janet Valencia DO Primary Care Provider Active Start: March 07, 2025 End: March 07, 2025 Dr. Janet Valencia DO Referring Provider Active Start: March 07, 2025 End: March 07, 2025 Dr. Tato Posey DO Attending Provider Active Start: March 07, 2025 End: March 07, 2025 Team Status: Active Member Role/Relationship Status Dates Dr. Janet Valencia DO Primary Care Provider Active Start: March 07, 2025 Dr. Janet Valencia DO Referring Provider Active Start: March 07, 2025 Dr. Tato Posey DO Attending Provider Active Start: March 07, 2025 Dr. Tato Posey DO Other Provider Active St art: March 07, 2025 Team Status: Inactive Member Role/Relationship Status Dates Dr. Janet Valencia DO Primary Care Provider Active Start: February 26, 2025 Dr. Darya Abreu MD Attending Provider Active Start: February 26, 2025 Team Status: Inactive Member Role/Relationship Status Dates Dr. Janet Valencia DO Primary Care Provider Active Start: March 20, 2025 End: March 20, 2025 Dr. Janet Valencia DO Referring Provider Active Start: March 20, 2025 End: March 20, 2025 Dr. John Jang MD Attending Provider Active S tart: March 20, 2025 End: March 20, 2025 Team Status: Active Member Role/Relationship Status Dates Dr. Janet Valencia DO Primary Care Provider Active Start: March 20, 2025 Dr. John Jang MD Attending Provider Active S tart: March 20, 2025 Dr. John Jang MD Referring Provider Active S tart: March 20, 2025 Team Status: Inactive Member Role/Relationship Status Dates Dr. Janet Valencia DO Primary Care Provider Active Start: December 19, 2024 End: December 19, 2024 Dr. Janet Valencia DO Referring Provider Active Start: December 19, 2024 End: December 19, 2024 Dr. John Agee DO Attending Provider Active Start: December 19, 2024 End: December 19, 2024 Team Status: Inactive Member Role/Relationship Status Dates Dr. Janet Valencia DO Primary Care Provider Active Start: December 19, 2024 End: December 19, 2024 Dr. Glenn Nava MD Attending Provider Active S tart: December 19, 2024 End: December 19, 2024 Team Status: Inactive Member Role/Relationship Status Dates Dr. Janet Valencia DO Primary Care Provider Active Start: January 03, 2025 End: January 03, 2025 Dr. Janet Valencia DO Referring Provider Active Start: January 03, 2025 End: January 03, 2025 KRISTINE aSnchez Attending Provider Active Start: January 03, 2025 End: January 03, 2025 Team Status: Inactive Member Role/Relationship Status Dates Dr. Janet Valencia DO Primary Care Provider Active Start: January 03, 2025 End: January 03, 2025 KRISTINE Sanchez Attending Provider Active Start: January 03, 2025 End: January 03, 2025 KRISTINE Sanchez Referring Provider Active Start: January 03, 2025 End: January 03, 2025 Team Status: Active Member Role/Relationship Status Dates Dr. Janet Valencia DO Primary Care Provider Active Start: January 14, 2025 Jaqui Jordan Attending Provider Active Start: January 14, 2025 Team Status: Inactive Member Role/Relationship Status Dates Dr. Janet Valencia DO Primary Care Provider Active Start: January 23, 2025 End: January 23, 2025 JAYASHREE Glasgow Referring Provider Active Start: January 23, 2025 End: January 23, 2025 Dr. John Jnag MD Attending Provider Active S tart: January 23, 2025 End: January 23, 2025 Team Status: Inactive Member Role/Relationship Status Dates Dr. Janet Valencia DO Primary Care Provider Active Start: January 23, 2025 End: January 26, 2025 Dr. Janet Valencia DO Attending Provider Active Start: January 23, 2025 End: January 26, 2025 Dr. Janet Valencia DO Referring Provider Active Start: January 23, 2025 End: January 26, 2025 Team Status: Inactive Member Role/Relationship Status Dates Dr. Janet Valencia DO Primary Care Provider Active Start: February 26, 2025 Dr. Darya Abreu MD Attending Provider Active Start: February 26, 2025 Team Status: Inactive Member Role/Relationship Status Dates Dr. Janet Valencia DO Primary Care Provider Active Start: March 07, 2025 End: March 07, 2025 Dr. Janet Valencia DO Referring Provider Active Start: March 07, 2025 End: March 07, 2025 Dr. Tato Posey DO Attending Provider Active Start: March 07, 2025 End: March 07, 2025 Team Status: Active Member Role/Relationship Status Dates Dr. Janet Valencia DO Primary Care Provider Active Start: March 07, 2025 Dr. Janet Valencia DO Referring Provider Active Start: March 07, 2025 Dr. Tato Posey DO Attending Provider Active Start: March 07, 2025 Dr. Tato Posey DO Other Provider Active St art: March 07, 2025 Team Status: Inactive Member Role/Relationship Status Dates Dr. Janet Valencia DO Primary Care Provider Active Start: March 20, 2025 End: March 20, 2025 Dr. Janet Valencia DO Referring Provider Active Start: March 20, 2025 End: March 20, 2025 Dr. John Jang MD Attending Provider Active S tart: March 20, 2025 End: March 20, 2025 Team Status: Active Member Role/Relationship Status Dates Dr. Janet Valencia DO Primary Care Provider Active Start: March 20, 2025 Dr. John Jang MD Attending Provider Active S tart: March 20, 2025 Dr. John Jang MD Referring Provider Active S tart: March 20, 2025 Team Status: Inactive Member Role/Relationship Status Dates Dr. Janet Valencia DO Primary Care Provider Active Start: March 27, 2025 End: March 27, 2025 Dr. Janet Valencia DO Referring Provider Active Start: March 27, 2025 End: March 27, 2025 KRISTINE Sanchez Attending Provider Active Start: March 27, 2025 End: March 27, 2025 Team Status: Inactive Member Role/Relationship Status Dates Dr. Janet Valencia DO Primary Care Provider Active Start: March 27, 2025 End: March 28, 2025 Dr. Janet Valencia DO Attending Provider Active Start: March 27, 2025 End: March 28, 2025 Dr. Janet Valencia DO Referring Provider Active Start: March 27, 2025 End: March 28, 2025 Team Status: Inactive Member Role/Relationship Status Dates Dr. Janet Valencia DO Primary Care Provider Active Start: April 12, 2025 End: April 12, 2025 Dr. Janet Valencia DO Referring Provider Active Start: April 12, 2025 End: April 12, 2025 Dr. Darya Abreu MD Attending Provider Active Start: April 12, 2025 End: April 12, 2025 Goals (unrecognized section and content) Goals may be documented in a n alternate sectionGoals may be documented in an alternate sectionGoals may be documented in an alternate sectionGoals may be documented in an alternate sectionGoals may be documented in an alternate sectionGoals may be documented in an alternate sectionGoals may be documented in an alternate sectionGoals may be documented in an alternate sectionGoals may be documented in an alternate sectionGoals may be documented in an alternate sectionGoals may be documented in an alternate sectionGoals may be documented in an alternate sectionGoals may be documented in an alternate sectionGoals may be documented in an alternate sectionGoals may be documented in an alternate sectionGoals may be documented in an alternate sectionGoals may be documented in an alternate sectionGoals may be documented in an alternate sectionGoals may be documented in an alternate sectionGoals may be documented in an alternate sectionGoals may be documented in an alternate sectionGoals may be documented in an alternate sectionGoals may be documented in an alternate sectionGoals may be documented in an alternate sectionGoals may be documented in an alternate sectionGoals may be documented in an alternate sectionGoals may be documented in an alternate sectionGoals may be documented in an alternate sectionGoals may be documented in an alternate sectionGoals may be documented in an alternate sectionGoals may be documented in an alternate section INFORMATION SOURCE (unrecogn ized section and content) DATE CREATED AUTHOR 01/03/2025 [facility] DATE CREATED AUTHOR AUTHOR'S ORGANIZ ERIK 04/14/2025 [facility] FOR RECORDS PERTAINING TO PATIENTS WHO ARE [...] BE BASED ON THE PRIMARY CLINICAL RECORDS. [employer] [facility]. provides no warranty or guarantee of the accuracy or completeness of information in this document.
--- NOTE | 2025-05-05 12:27 | ED.VIS.CHEST ---
HPI History of Present Illness Chief Complaint: Chest Pain Informant: patient Narrative Narrative: Patient is a 70-year-old female with history of rheumatoid arthritis, Sjogren's syndrome, PTSD, neuropathy, TROY, bipolar disorder, hypertension, hyperlipidemia, GERD, thoracic aortic aneurysm without rupture and chronic pain presenting with right-sided chest pain the past 2 days. She states it radiates from the right center of her chest underneath her breast and then around to her upper thoracic region. She states it is worse with movement or if she takes a deep breath. She states that about 8 days ago she did have an injury where she ran into a door at home. She has been sore since that happened but is not sure why she is only having more pain. Denies any other acute injuries. States the pain is constant. Last had Motrin at 2 AM last night but does not feel it is helping. Denies feeling short of breath. Denies any nausea or vomiting. Denies any abdominal pain. Denies any acute cough or URI symptoms. Notes she has been having increased pain throughout her hands and feet and feels they are swollen for the past week or so. [facility] Medical History Normal Holter exam PTSD (post-traumatic stress disorder) Cardiology follow-up encounter History of Holter monitoring Pain FAITH (dyspnea on exertion) Chest pressure Wears glasses Wears dentures CPAP (continuous positive airway pressure) dependence Arthritis Osteoarthritis of left knee Left knee pain Stress incontinence Difficulty chewing History of IBS Former smoker Neuropathy Sjogrens syndrome Leg cramps History of edema History of echocardiogram History of stress test History of irregular heartbeat Chronic low back pain Sensory polyneuropathy Elevated hemoglobin A1c Rheumatoid arthritis TROY (obstructive sleep apnea) Urinary incontinence, urge Urinary urgency Urinary frequency PND (post-nasal drip) Bipolar 2 disorder Obesity (BMI 30-39.9) Mild intermittent asthma in adult without complication Mild mitral regurgitation Mild dilation of ascending aorta TROY (obstructive sleep apnea) Depression Right flank pain Spinal stenosis of lumbar region Hypertension Hyperlipidemia GERD (gastroesophageal reflux disease) Asthma OCD (obsessive compulsive disorder) Chest pain Thoracic aortic aneurysm without rupture Paroxysmal atrial tachycardia Nephrolithiasis Herpes simplex with unspecified complication Loss of appetite Anxiety Lightheadedness Long-term use of high-risk medication Obesity Sinusitis Eustachian tube dysfunction Otitis media Nightmares Rhinorrhea Segmental and somatic dysfunction of cervical region Segmental and somatic dysfunction of thoracic region Back sprain Epigastric abdominal pain Encounter for screening for malignant neoplasm of colon Home Medications ?Medication ?Instructions ?Recorded ?Last Taken ?Type potassium chloride 20 mEq 20 meq PO BID 10/08/20 03/06/25 History tablet,extended release oxybutynin chloride 10 mg 10 mg PO DAILY 07/31/21 03/06/25 History tablet,extended release 24 hr duloxetine 30 mg capsule,delayed 30 mg PO BID 07/07/23 03/06/25 History release trazodone 150 mg tablet 150 mg PO QHS 09/28/23 03/06/25 History vibegron 75 mg tablet (Gemtesa) 75 mg PO DAILY 11/16/23 03/06/25 History ondansetron 4 mg disintegrating 4 mg PO Q8H PRN nausea and vomiting 08/16/24 Unknown History tablet pantoprazole 40 mg tablet,delayed 40 mg PO QDAY 08/16/24 03/06/25 History release metoprolol tartrate 25 mg tablet 25 mg PO BID #180 tabs 10/25/24 03/07/25 Rx amlodipine 5 mg tablet 5 mg PO DAILY #30 tabs 11/02/24 03/07/25 Rx ascorbic acid (vitamin C) 500 mg 500 mg PO QDAY 01/23/25 Unknown History tablet Held on 03/06/25. Instructions: PT STOPPED WHEN TAKING IRON guaifenesin 1,200 mg tablet, 1,200 mg PO BID 01/23/25 03/06/25 History extended release 12 hr lisinopril 20 mg tablet 20 mg PO BID 01/23/25 03/07/25 History tizanidine 4 mg tablet 4 mg PO BID PRN muscle spasticity 01/23/25 Unknown History polyethylene glycol 3350 17 4 g PO ONCE #238 grams 01/28/25 Unknown Rx gram/dose oral powder (Miralax) plecanatide 3 mg tablet (Trulance) 3 mg PO QDAY #90 tabs 03/27/25 Unknown Rx Allergy/AdvReac Type Severity Reaction Status Date / Time tramadol (From Ultram) Allergy Intermediate Itching Verified 05/05/25 11:30 oxycodone (From Percocet) Allergy Mild Itching Verified 05/05/25 11:30 cephalexin (From Keflex) Allergy Rash Verified 05/05/25 11:30 flurazepam (From Dalmane) Allergy Other Verified 05/05/25 11:30 shellfish derived Allergy RASH Verified 05/05/25 11:30 divalproex sodium (From AdvReac Intermediate Other - Verified 05/05/25 11:30 Depakote) nightmares quetiapine (From Seroquel) AdvReac Mild Other - Verified 05/05/25 11:30 shaking, lightheaded and abnormal dreams meloxicam AdvReac Unknown Verified 05/05/25 11:30 Family History Father Cancer Alcoholism Hypertension Mother Heart disease H/O weight disorder Myocardial infarction Hypertension COPD (chronic obstructive pulmonary disease) Skin cancer Sister Hypertension Surgical History Hx of colonoscopy Hx of cystoscopy History of cardiac catheterization Hx of surgical procedure bladder sling removal History of bilateral carpal tunnel release H/O eye surgery H/O hand surgery History of total right knee replacement History of appendectomy H/O: hysterectomy Hx laparoscopic cholecystectomy Social History household members: none Smoking Status: Former smoker quit date: 08/29/82 pack-years: 15 second hand exposure: No alcohol intake: never substance use type: does not use ROS ROS ED Constitutional Constitutional ED: Denies chills or fever(s) Cardiovascular Cardiovascular: Reports as per HPI and chest pain Respiratory/Chest Respiratory/Chest: Denies cough or dyspnea Gastrointestinal Gastrointestinal: Denies vomiting Musculoskeletal Musculoskeletal: Reports arthralgias and myalgias Integumentary Denies rash Neurologic Neurologic: Denies paresthesias or weakness Psychiatric Psychiatric: Reports anxiety Hematologic/Lymphatic Hematologic/Lymphatic: Denies easy bleeding or easy bruising EXAM Physical Exam Const Vital Signs: 05/05/25 11:30 05/05/25 11:52 05/05/25 12:10 Temperature 97.6 F L Temperature Source Temporal Pulse Rate 67 Respiratory Rate 18 Respiratory Effort Normal Blood Pressure 154/84 H Blood Pressure Mean 107 Pulse Ox 100 Oxygen Delivery Method Room Air 05/05/25 12:29 05/05/25 13:00 05/05/25 14:00 Temperature Temperature Source Pulse Rate 71 74 69 Respiratory Rate 20 H 18 15 Respiratory Effort Blood Pressure 164/73 H 157/75 H 152/88 H Blood Pressure Mean 103 102 109 Pulse Ox 100 97 96 Oxygen Delivery Method Room Air Room Air Room Air Positive well nourished and well developed General Appearance ED: well developed and NAD HEENT Reports dry mucous membranes HEENT Narrative: Chronic dry because of membranes secondary to Sjogren syndrome normocephalic and atraumatic Mouth ED: Yes dry mucous membranes Mouth: dry mucous membranes Neck supple and no JVD Chest Wall inspection of chest normal Chest Narrative: No chest wall crepitus. Tenderness to palpation of the right anterior chest Resp normal respiratory effort and clear to auscultation bilaterally Cardio regular rate and regular rhythm GI normal to inspection, nondistended, normoactive bowel sounds, soft to palpation and non-tender Back/Spine no thoracic nor lumbar tenderness Extremity normal to inspection General Extremety ED: Negative for edema General Extremity: Negative for edema Neuro oriented x3 Sensorium / Orientation: awake and alert Motor Exam: Negative for general weakness Psych mental status grossly normal Skin no rashes or lesions noted and no wounds Heart Score History: Slightly/Non-Suspicious ECG: Normal Age: >/= 65 years Risk Factors: 1 or 2 Risk Factors Troponin: </= Normal Limit Score: 3 MDM MDM MDM Narrative Medical decision making narrative: Patient is evaluated for right-sided chest pain. It is worse with movement and deep breathing. Seems to be very muscle skeletal. It is reproduced with palpation and movement. She denies any associated shortness of breath or difficulty breathing. She is not hypoxic or tachypneic. I do not think she needs workup for PE at this time. X-ray of the ribs as well as chest x-ray reviewed by myself as well as radiology does not show any acute fracture. Cardiac workup is obtained because of patient's age and she does have some cardiac risk factors however she notes that she had a normal cardiac catheterization in last year. Patient is she given aspirin for symptoms but continues have pain and is given a Toradol. Her workup is largely normal/unremarkable. No findings consistent with ACS, pneumonia, pneumothorax or rib fracture. Outpatient follows with pain management Dr. Colin. She states she has a muscle relaxer at home. Will follow-up with Dr. Colin this week. Is counseled on continuing Motrin and Tylenol for pain control, using Lidoderm patches and taking her muscle relaxer. Discharged home in stable condition. Lab Data Attestation: I reviewed the patient's lab results. Labs: Laboratory Results - last 24 hr 05/05/25 05/05/25 11:46 14:22 WBC 9.9 RBC 4.34 Hgb 12.0 Hct 38.7 MCV 89.2 MCH 27.6 MCHC 31.0 L RDW Std Deviation 64.0 H RDW Coeff of Jeramy 19.6 H Plt Count 305 MPV 8.7 Immature Gran % (Auto) 0.500 Neut % (Auto) 60.6 Lymph % (Auto) 29.2 Jackson % (Auto) 8.7 Eos % (Auto) 0.9 Baso % (Auto) 0.1 Absolute Neuts (auto) 6.0 Absolute Lymphs (auto) 2.90 Nucleated RBC % 0 Sodium 133 Potassium 4.8 Chloride 100 Carbon Dioxide 19.7 L Anion Gap 13 BUN 12 Creatinine 0.59 L Estim Creat Clear Calc 76.85 Est GFR (MDRD) Non-Af 97 BUN/Creatinine Ratio 20.5 H Glucose 81 Calcium 9.7 Total Bilirubin 0.19 Direct Bilirubin < 0.08 AST 21 ALT 10 Alkaline Phosphatase 82 Troponin T High Sens 10 Troponin T Hi Sens 2 Hr 9 Total Protein 7.9 Albumin 4.1 Globulin 3.8 Lipase 18 Radiography Diagnostic Testing: Clinical Impression(s) from Imaging Studies Ribs w/Chest X-Ray 05/05/25 12:30 IMPRESSION: Negative for acute cardiopulmonary disease Negative for right-sided rib fracture. Reading Location: [id number] Rhythm Strip Rhythm Strip: Sinus Rhythm Rate: 66 Ectopy: None EKG Initial EKG: Attestation: I personally reviewed and interpreted this EKG as follows: Interpretation: Sinus Rhythm Comments: Normal sinus rhythm at a rate of 66 bpm Normal axis Normal intervals Normal ST segments Discharge Plan Triage Chief Complaint: Chest Pain ED Provider: Carolyne Leigh Dx/Rx/DC Orders Clinical Impression: Acute right-sided thoracic back pain Prescriptions: No Action potassium chloride 20 mEq tablet extended release 20 meq PO BID oxybutynin chloride 10 mg tablet extended release 24hr 10 mg PO DAILY trazodone 150 mg tablet 150 mg PO QHS lisinopril 20 mg tablet 20 mg PO BID Gemtesa 75 mg tablet 75 mg PO DAILY pantoprazole 40 mg tablet,delayed release (DR/EC) 40 mg PO QDAY ondansetron 4 mg tablet,disintegrating 4 mg PO Q8H PRN (Reason: nausea and vomiting) metoprolol tartrate 25 mg tablet 25 mg PO BID Qty: 180 3RF amlodipine 5 mg tablet 5 mg PO DAILY Qty: 30 11RF tizanidine 4 mg tablet 4 mg PO BID PRN (Reason: muscle spasticity) guaifenesin 1,200 mg tablet extended release 12hr 1,200 mg PO BID ascorbic acid (vitamin C) 500 mg tablet 500 mg PO QDAY Trulance 3 mg tablet 3 mg PO QDAY Qty: 90 1RF Rx Instructions: take once daily in the morning duloxetine 30 mg capsule,delayed release(DR/EC) 30 mg PO BID polyethylene glycol 3350 [Miralax] 17 gram/dose powder 4 g PO ONCE Qty: 238 0RF Rx Instructions: As instructed for bowel prep Primary Care Provider: Bay Ramos Referrals: Bay Ramos, [Primary Care Provider] - Activity Restrictions/Additional Instructions: Continue your muscle relaxers and alternate Profen and Tylenol for pain. Your workup today did not show any acute traumatic injuries, pneumonia, collapsed lungs or signs of heart stress. Follow-up with Dr. Colin at pain management this week as scheduled. Print Language: Vietnamese Disposition Disposition: Home, Self Care
[2025-05-05 12:29] VITALS: BP 164/73; PULSE 71; RESP 20; O2SAT 100
--- NOTE | 2025-05-05 12:30 | RAD_ITS ---
PROCEDURE: RIBS UNI MIN 3V W/PA CHEST 05/05/2025 REASON FOR EXAM: PAIN TECHNIQUE: Procedure Code: RADRIB Modality: DX Procedure: RIBS UNI MIN 3V W/PA CHEST COMPARISON: September 2024. FINDINGS: Hardware and support lines: None. Heart: Negative. Lungs: Negative for infiltrates, or pulmonary edema. Pleura: No pleural thickening. No pleural effusion. Mediastinum and aorta: Negative for hilar adenopathy. Slight tortuous thoracic aorta. Bones: Additional views of the right-sided ribs shows no fractures. Age- appropriate degenerative changes of the spine. Other: Remainder of the exam negative. RAD/Ribs Uni Min 3V w/PA Chest IMPRESSION: Negative for acute cardiopulmonary disease Negative for right-sided rib fracture. Reading Location: [id number]
[2025-05-05 12:42] LABS: Troponin T High Sensitivity 10 ng/L (<=14)
[2025-05-05 12:58] LABS: AST(SGOT) 21 U/L (<=31); Alanine Aminotransfer ALT/SGPT 10 U/L (<=34); Albumin, Serum 4.1 g/dL (3.4-4.8); Alkaline Phosphatase 82 U/L (35-104); Anion Gap 13 (5-15); BUN 12 mg/dL (4-19); BUN/Creat Ratio 20.5 RATIO (10-20); Bilirubin, Direct < 0.08 mg/dL (0.00-0.30); Calcium,Total 9.7 mg/dL (7.6-11.0); Carbon Dioxide 19.7 mmol/L (21.0-32.0); Chloride 100 mmol/L (98-108); Estimated Creatinine Clearance 76.85 ml/min (50-250); Globulin 3.8 g/dL (2.2-4.2); Glucose 81 mg/dL (70-99); Lipase 18 U/L (13-75); Potassium 4.8 mmol/L (3.3-5.1)
[2025-05-05 13:00] VITALS: BP 157/75; PULSE 74; RESP 18; O2SAT 97
[2025-05-05 14:00] VITALS: BP 152/88; PULSE 69; RESP 15; O2SAT 96
[2025-05-05 15:00] VITALS: BP 161/81; PULSE 72; RESP 16; O2SAT 98
[2025-05-05 15:14] LABS: Troponin T High Sens 2 HR 9 ng/L (<=14)
[2025-05-05 15:36] VITALS: BP 161/81; PULSE 73; RESP 22; TEMP 36.6; O2SAT 100
== END 2025-05-05 15:41 | disposition home or self-care (01) ==
PROVIDERS: Emergency Provider Emergency Medicine; PCP Family Medicine; Visit Provider Emergency Medicine
DX: M54.6 Pain in thoracic spine (principal); I10 Essential (primary) hypertension; Z79.899 Other long term (current) drug therapy; Z87.891 Personal history of nicotine dependence
CPT/HCPCS: 71101; 80048; 80076; 83690; 84484; 85025; 93005; 96374; 99284; A4216

== ENCOUNTER 2025-05-22 10:53 | Outpatient (RCR) | payer MEDICAID, SELFPAY | END 2025-05-28 23:59 | LOC: NS 10:53 | PROVIDERS: PCP Family Medicine; Referring Provider Family Medicine; Visit Provider Family Medicine | DX: Z71.3 Dietary counseling and surveillance (principal); E66.01 Morbid (severe) obesity due to excess calories; Z68.39 Body mass index [BMI] 39.0-39.9, adult | CPT/HCPCS: 97803 ==

== ENCOUNTER 2025-07-17 10:35 | Outpatient (RCR) | payer MEDICAID, SELFPAY | END 2025-07-28 23:59 | LOC: NS 10:35 | PROVIDERS: PCP Family Medicine; Referring Provider Family Medicine; Visit Provider Family Medicine | DX: Z71.3 Dietary counseling and surveillance (principal); E66.01 Morbid (severe) obesity due to excess calories; Z68.39 Body mass index [BMI] 39.0-39.9, adult | CPT/HCPCS: 97803 ==

== ENCOUNTER → 2025-07-26 | Outpatient (CLI) | payer MEDICAID, SELFPAY ==
--- NOTE | 2025-07-26 09:37 | BI_ITS ---
EXAM: SCRN MAMM (CAD)W/ERIC BILAT DATE: 07/26/2025 CLINICAL HISTORY: F, Age 70 y/o , SCREENING TECHNIQUE: Procedure Code: [id number] Modality: MG Procedure: SCRN MAMM (CAD)W/ERIC BILAT COMPARISON: Prior exam(s) dated mammogram dated 07/25/2024, 07/14/2023, and 07/12/2022. FINDINGS: TISSUE DENSITY: The breasts are almost entirely fatty. Bilateral Breast Mammographic Findings: No suspicious masses, suspicious clustered microcalcifications, architectural distortion or secondary sign of malignancy is identified in either breast. Benign-appearing round microcalcifications are seen in both breasts. BI/SCRN MAMM (CAD)W/ERIC BILAT IMPRESSION: Benign screening mammogram OVERALL FINAL ASSESSMENT BI-RADS 2: BENIGN RECOMMENDATION: Routine annual follow-up in 1 Year Additional Recommendation none A letter with findings and recommendations will be mailed to the patient. Reading Location: [id number]
--- OUTSIDE RECORDS SUMMARY | 2025-07-26 09:50 | XMS RPT_ITS | CCD ---
Author Organization [facility] Care Team Providers Care Survival Equipment Repairer Name Role Phone Julia Ma LPN Unavailable Unavailab Soraya Duran Unavailable Unavailable Julia Ma LPN Unavailable Unavailab Janet England DO Primary Care Provider Dr. Janet Ramos Primary Care Provider [phone] Dr. Janet Ramos Referring Provider KRISTINE Marcelino NP Attending Provider [phone] Janet Ramos DO Primary Care Provider Janet Ramos DO Primary Care Provider Dr. Janet Ramos Primary Care Provider [phone] Dr. Janet Ramos Referring Provider Dr. John Agee Attending Provider [phone] Glenn Nava Attending Provider [phone] Janet Ramos Primary Care Provider [phone] Dr. Janet Ramos Referring Provider Dr. John Agee Attending Provider [phone] Glenn Nava Attending Provider [phone] KRISTINE Williamson Primary Care Provider [phone] KRISTINE Williamson Referring Provider Dr. Cristobal Olmos Attending Provider Dr. Cristobal Olmos Referring Provider Dr. Cristobal Olmos Other Provider Dr. Hao Olmos Attending Provider Dr. Janet Ramos Primary Care Provider [phone] Dr. Glenn Nava Attending Provider [phone] Glenn Nava Referring Provider [phone] Janet Ramos Referring Provider Dr. Ravindra Singh Attending Provider Dr. John Agee Attending Provider Ryland DIRECTOR OF PHYSICAL SECURITY, DIRECTOR OF PHYSICAL SECURITY-C Angélica Attending Provider Dr. Cristobal Olmos Referring Provider Nickolas, Dr. Jain Other Provider Dr. Janet Ramos Primary Care Provider [phone] Dr. Hao Olmos Attending Provider [phone] Dr. Cristobal Olmos Attending Provider [phone] Brandy, Dr. Elizabeth Attending Provider [phone] Brandy, Dr. Elizabeth Referring Provider [phone] Janet Ramos Referring Provider Dr. Ravindra Singh Attending Provider Dr. John Agee Attending Provider KRISTINE Williamson Referring Provider Ryland DIRECTOR OF PHYSICAL SECURITY, DIRECTOR OF PHYSICAL SECURITY-C Angélica Attending Provider Dr. Ravindra Singh Referring Provider Dr. Ravindra Singh Other Provider Gilmar RICKETTS, DIRECTOR OF PHYSICAL SECURITY-C Supriya Attending Provider Dr. Cristobal Olmos Referring Provider Dr. Cristobal Olmos Other Provider Dr. Janet Ramos Primary Care Provider [phone] Supriya Cruz Attending Provider Unavailable Dr. Janet Ramos Primary Care Provider Dr. Glenn Nava Attending Provider Janet Ramos DO Primary Care Provider Erik MA, Dr. Hermosillo Primary Care Provider Erik MA, Dr. Hermosillo Attending Provider Erik MA, Dr. Hermosillo Referring Provider [phone] Johny DIRECTOR OF PHYSICAL SECURITY-C, Clau Attending Provider Johny DIRECTOR OF PHYSICAL SECURITY-C, Clau Referring Provider NP. Tory Hewitt Attending Provider NP. Tory Hewitt Referring Provider Taty MA, Dr. Godwin Attending Provider Taty MA, Dr. Godwin Other Provider Cyndie MA, Dr. Lopez Attending Provider Brandy BANG, Dr. Elizabeth [facility]ending Provider [facility], Dr. Barfield Attending Provider [facility] Dr. Carolyne MA Emergency Provider Torres DO, Dr. Cruz Attending Provider Brian MA, Dr. Cruz Emergency Provider Eulalia BANG, Dr. Syed Other Provider Dr. Ravindra Singh MD Attending Provider Dr. Ravindra Singh MD Referring Provider Johny DIRECTOR OF PHYSICAL SECURITY-C, Clau Other Provider Dr. Janet Ramos DO Primary Care Provider Erik MA, Dr. Hermosillo Attending Provider Erik MA, Dr. Hermosillo Referring Provider Johny DIRECTOR OF PHYSICAL SECURITY-CClau Attending Provider Johny DIRECTOR OF PHYSICAL SECURITY-C, Clau Referring Provider NP. Tory Hewitt Attending Provider NP. Tory Hewitt Referring Provider [phone] Taty MA, Dr. Godwin Attending Provider Taty MA, Dr. Godwin Other Provider Erik MA, Dr. Hermosillo Primary Care Provider Erik DO, Dr. Hermosillo Attending Provider [phone] [facility] , Dr. Hermosillo Referring Provider [phone] [facility] Dr. Lopez Attending Provider Brandy BANG, Dr. Elizabeth Attending Provider Johny DIRECTOR OF PHYSICAL SECURITY-C, Clau Attending Provider Johny DIRECTOR OF PHYSICAL SECURITY-C, Clau Referring Provider Jaqui Jordan Attending Provider Unavailable Isabel Montiel Referring Provider Suhail BANG, Dr. Lopez Attending Provider Suhail BANG, Dr. Lopez Referring Provider Erik MA, Dr. Hermosillo Primary Care Provider Dr. John Jang MD Referring Provider Erik MA, Dr. Hermosillo Primary Care Provider Erik MA, Dr. Hermosillo Referring Provider [phone] Erik MA, Dr. Hermosillo Attending Provider Dr. John Jang MD Referring Provider Dr. Darya Abreu MD Attending Provider Suhail BANG, Dr. Lopez Referring Provider Erik MA, Dr. Hermosillo Primary Care Provider Erik MA, Dr. Hermosillo Referring Provider [phone] Taty MA, Dr. Godwin Attending Provider Taty MA, Dr. Godwin Other Provider Brady BANG, Dr. Lackey Attending Provider Erik MA, Dr. Hermosillo Primary Care Provider Erik MA, Dr. Hermosillo Referring Provider Johny DIRECTOR OF PHYSICAL SECURITY-CClau Attending Provider Reese MA, Dr. Barfield Emergency Provider [phone] Erik MA, Dr. Hermosillo Primary Care Physician Brady BANG, Dr. Lackey Attending Physician Erik MA, Dr. Hermosillo Referring Provider Taty MA, Dr. Godwin Attending Physician Tayt MA, Dr. Godwin Nurse Practitioner Suhail BANG, Dr. Lopez Attending Physician Johny DIRECTOR OF PHYSICAL SECURITY-CClau Attending Physician [phone] Erik MA, Dr. Hermosillo Attending Physician Reese MA, Dr. Barfield Attending Physician Reese MA, Dr. Barfield Emergency Department [facility] Suhail BANG, Dr. Lopez Referring Provider [phone] Cyndie MA, Dr. Lopez Attending Physician [phone] Brandy BANG, Dr. Elizabeth Attending Physician Erik, Janet Attending Unavailable Erik, Janet Primary Care Unavailable Erik, Janet Referring Unavailable Erik, Janet Primary Care Unavailable John Agee Attending Unavailable Erik, Janet Primary Care Unavailable Erik, Janet Referring Unavailable Tato Posey Attending Unavailable Tato Posey Consulting Unavailable Erik, Janet Attending Unavailable Erik, Janet Primary Care Unavailable Erik, Janet Referring Unavailable Erik, Janet Primary Care Unavailable Erik, Janet Referring Unavailable Erik, Janet Attending Unavailable Erik, Janet Attending Unavailable Erik, Janet Primary Care Unavailable Erik, Janet Referring Unavailable Darya Abreu Attending Unavailable Erik, Janet Primary Care Unavailable Erik, Janet Referring Unavailable Francisco, Ravindra Attending Unavailable Erik, Janet Referring Unavailable Erik, Janet Primary Care Unavailable Erik, Janet Primary Care Unavailable Erik, Janet Referring Unavailable John Agee Attending Unavailable Erik, Janet Primary Care Unavailable Friend, Tato Attending Unavailable Erik, Janet Referring Unavailable Friend, Tato Consulting Unavailable Erik, Janet Primary Care Unavailable Leodan Navaril Attending Unavailable Erik, Janet Primary Care Unavailable Erik, Janet Referring Unavailable John Agee Attending Unavailable Brandy, Glenn Attending Unavailable Erik, Janet Primary Care Unavailable Erik, Janet Primary Care Unavailable JohnyClau Consulting Unavailable Erik, Janet Referring Unavailable Friend, Tato Attending Unavailable Erik, Janet Primary Care Unavailable Friend, Tato Attending Unavailable Erik, Janet Referring Unavailable Erik, Janet Primary Care Unavailable JohnyClau Referring Unavailable JohnyClau Attending Unavailable Erik, Janet Primary Care Unavailable JohnyClau Attending Unavailable Erik, Janet Referring Unavailable Erik, Janet Primary Care Unavailable Leodan Navaril Attending Unavailable Johny Clau Referring Unavailable JohnyClau Attending Unavailable Erik, Janet Primary Care Unavailable Marcelina, Tory Referring Unavailable Erik, Janet Primary Care Unavailable Milan, Tory Attending Unavailable Erik, Janet Primary Care Unavailable Clau Mcclain Attending Unavailable Erik, Janet Referring Unavailable PraJohn muñoz Attending Unavailable Erik, Janet Primary Care Unavailable Isabel Ceron Referring Unavailable Erik, Janet Primary Care Unavailable Milan, Tory Referring Unavailable Milan, Tory Attending Unavailable Kunal Esteban Unavailable Erik, Janet Primary Care Unavailable Johny Clau Referring Unavailable JohnyClau Attending Unavailable Erik, Janet Primary Care Unavailable Carolyne Leigh Attending Unavailable Erik, Janet Primary Care Unavailable Anthony Torres Attending Unavailable Erik, Janet Primary Care Unavailable Carolyne Leigh Attending Unavailable Francisco, Ravindra Referring Unavailable Francisco, Ravindra Attending Unavailable Erik, Janet Primary Care Unavailable PraJohn muñoz Attending Unavailable Erik, Janet Primary Care Unavailable Prah John Referring Unavailable Eirk, Janet Attending Unavailable Erik, Janet Primary Care Unavailable Erik, Janet Referring Unavailable Erik, Janet Attending Unavailable Erik, Janet Primary Care Unavailable Erik, Janet Referring Unavailable Erik, Janet Attending Unavailable Erik, Janet Primary Care Unavailable Erik, Janet Referring Unavailable PraJohn muñoz Attending Unavailable Erik, Janet Primary Care Unavailable Erik, Janet Referring Unavailable Erik, Janet Primary Care Unavailable Clau Mcclain Attending Unavailable Erik, Janet Referring Unavailable Clau Mcclain Attending Unavailable Erik, Janet Referring Unavailable Erik, Janet Primary Care Unavailable Erik, Janet Primary Care Unavailable Ravindra Singh Attending Unavailable Erik, Janet Referring Unavailable Erik, Janet Primary Care Unavailable Erik, Janet Referring Unavailable Borruso, John Attending Unavailable Erik, Janet Primary Care Unavailable Erik, Janet Referring Unavailable Darya Abreu Attending Unavailable Erik, Janet Primary Care Unavailable Prawanda, John Attending Unavailable Erik, Janet Referring Unavailable Erik, Janet Primary Care Unavailable Clau Mcclain Consulting Unavailable Erik, Janet Referring Unavailable FriendTato Attending Unavailable Friend, Tato Consulting Unavailable Erik, Janet Primary Care Unavailable Jaqui Jordan Attending Unavailable Erik, Janet Primary Care Unavailable Darya Abreu Attending Unavailable Friend, Tato Attending Unavailable Erik, Janet Primary Care Unavailable Erik, Janet Referring Unavailable Erik, Janet Attending Unavailable Erik, Janet Primary Care Unavailable Erik, Janet Referring Unavailable ISABEL CERON Attending Unavailable ERIK, JANET A Primary Care Unavailable ISABEL CERON Referring Unavailable ERIK, JANET A Primary Care Unavailable Allergies Allergy Classification Reported Allergen(s) Allergy Type Date of Onset Reaction(s) Facility (6 sources) acetaminophen / oxyCODONE drug allergy 05-01-20 14 Break out in hives and itch. [facility] Work Phone: (3 sources) Bee/Wasp/Ant venom; Translations: [BEE STINGS] allergy to substance 03-27-20 14 Anaphylaxis [facility] Work Phone: (6 sources) Corticosteroids drug allergy 05-01-20 14 Swelling and hives [facility] Work Phone: (3 sources) meloxicam drug allergy 02-06-20 15 [facility] Work Phone: (3 sources) QUEtiapine drug allergy 11-26-19 15 Shaky, lightheaded, abnormal dreams [facility] Work Phone: (3 sources) traMADol drug allergy 03-27-20 14 severe itching [facility] Work Phone: (3 sources) valproate drug allergy 12-14-19 15 nighmares [facility] Work Phone: (9 sources) Acetaminophen / oxyCODONE; Translations: [OXYCODONE-ACETAMIN OPHEN] Drug Allergy 01-10-20 09 Itching, Hives, Rash [facility] (20 sources) meloxicam; Translations: [MELOXICAM] Drug Allergy 12-11-19 08 Itching, Rash, Hives [facility] (9 sources) Pentazocine; Translations: [PENTAZOCINE LACTATE] Drug Allergy 02-17-20 06 Hives, Rash [facility] Work Phone: (9 sources) predniSONE; Translations: [PREDNISONE] Drug Allergy 12-12-19 09 Swelling [facility] (9 sources) Shellfish; Translations: [SHELLFISH] Propensity to adverse reactions 02-17-20 06 Swelling [facility] Work Phone: (9 sources) traMADol; Translations: [TRAMADOL HCL] Drug Allergy 03-06-20 14 Rash, Itching [facility] (9 sources) Bee Sting; Translations: [BEE STING] Allergy to substance 03-27-20 14 Anaphylaxis [facility] (9 sources) Bees; Translations: [BEES] Propensity to adverse reactions 05-10-20 07 Anaphylaxis, Swelling [facility] Work Phone: (20 sources) QUEtiapine; Translations: [QUETIAPINE] Drug Allergy 11-26-19 15 Mental Status Change [facility] (20 sources) traMADol; Translations: [TRAMADOL] Drug Allergy 08-10-20 21 Hives [facility] (20 sources) Valproate Drug Allergy 08-10-20 21 Other - nightmares [facility] (7 sources) Glucocorticoid preparation; Translations: [CORTICOSTEROIDS (GLUCOCORTICOIDS)] Drug Allergy 05-01-20 14 Hives, Swelling [facility] (20 sources) oxyCODONE; Translations: [OXYCODONE] Drug Allergy 08-02-20 18 Rash [facility] (7 sources) Valproate; Translations: [VALPROIC ACID] Drug Allergy 12-14-19 15 Mental Status Change [facility] (4 sources) Bee pollen; Translations: [BEE POLLEN] Drug Allergy 03-27-20 14 Swelling [facility] (17 sources) Shellfish; Translations: [shellfish derived] Drug Allergy 02-17-20 06 [facility] (16 sources) Cephalexin; Translations: [CEPHALEXIN] Drug Allergy 10-25-19 25 Rash [facility] (13 sources) Flurazepam Drug Allergy 10-25-19 25 Other [facility] Comment on above: nightmare (1 source) Acetaminophen Drug Allergy 08-16-20 24 [facility] (1 source) Cephalexin Drug Allergy 06-24-20 25 [facility] (1 source) Flurazepam Drug Allergy 06-24-20 25 [facility] (1 source) meloxicam Drug Allergy 06-24-20 25 [facility] (1 source) oxyCODONE Drug Allergy 06-24-20 25 [facility] (1 source) QUEtiapine Drug Allergy 06-24-20 25 [facility] (1 source) traMADol Drug Allergy 06-24-20 25 [facility] (1 source) Valproate Drug Allergy 06-24-20 25 [facility] Medications Current Medications Medication Drug Class(es) [...] 6 HOURS NEEDED as needed for Pain 7 0 August 08, 2018 1:00am August 14, 2018 1:00am August 15, 2018 1:13am Urinary urgency Urgency of urination Start: 08-08-2018 End: 08-15-2018 take 1 tablet by mouth every six hours as needed Oxycodone-Acetaminophen Discontinued 1 - 2 TABLET PO EVERY 6 HOURS NEEDED 20 7 August 08, 2018 1:00am August 15, 2018 1:13am Start: 07-25-2018 End: 08-01-2018 Oxycodone-Acetaminophen 1 TA BLET tablet Discontinued 1 - 2 {tbl} PO EVERY 6 HOURS NEEDED as needed for Pain 30 7 0 July 25, 2018 1:00am July 31, 2018 1:00am August 01, 2018 1:07am Increased frequency of urination Frequency of micturition Start: 07-25-2018 End: 08-01-2018 take 1 tablet by mouth every six hours as needed Oxycodone-Acetaminophen Discontinued 1 - 2 TABLET PO EVERY 6 HOURS NEEDED 30 7 July 25, 2018 1:00am August 01, 2018 1:07am amLODIPine 5 mg oral tablet (20 sources) Dihydropyridine Calcium Channel Kim Start: 11-02-2024 take 1 tablet by mouth once daily Start: 09-28-2023 End: 08-16-2024 take 1 tablet [...] daily. ascorbic acid 500 mg oral tablet (10 sources) Vitamin C Start: 5 take 1 tablet by mouth once daily cephalexin 500 mg oral capsule (20 sources) Cephalosporin Antibacterial Start: 2 take 500 mg by mouth every twelve [...] take 1 capsule by mouth twice daily Start: 10-09-2020 End: 11-20-2020 take 1 capsule [...] 2018 10:15am 12 hr guaiFENesin 1200 mg ex tended release oral tablet (20 sources) Start: 01-23-2025 take 1 tablet by mikal th twice daily Start: 01-23-2025 take 1 tablet by mikal th every twelve hours Guaifenesin 1,200 mg [...] 12hr Discontinued 1200 mg PO Q12H 60 August 20, 2024 9:13am November 16, 2024 [...] 2017 10:55am Start: 04-16-2016 MUCINEX 600 MG [id number] take one tab twice per day GUAIFENESIN [id number] Cathie Sher NP Start: 04-16-2016 MUCINEX 600 MG [id number] take one tab twice per day GUAIFENESIN [id number] Cathie Sher NP lisinopril 20 mg oral tablet (20 sources) Angiotensin Converting Enzyme Inhibitor Start: 01-23-2025 take 1 tablet by mouth twice daily Start: 08-16-2024 End: 01-23-2025 take 10 mg [...] One half tablet by mouth daily LISINOPRIL [id number] Janet Ramos DO Start: 03-15-2013 LISINOPRIL 10 MG TABS Tale 0.5 tablets by motuh once daily LISINOPRIL [id number] Fiordaliza Mcintosh Comment on above: Take 10 mg by mouth once daily. metoprolol tartrate 25 mg oral tablet (20 sources) beta-Adrenergic Kim Start: 10-25-2024 take 1 tablet by mouth twice daily Start: 11-18-2023 End: 01-04-2024 Metoprolol Tartrate 50 mg ta blet Discontinued 50 mg PO .COMPLEX 1 November 18, 2023 12:00am January 04, 2024 4:07pm 50 mg orally 1 hour before coronary CTA; nitrofurantoin, macrocrystals 25 mg / nitrofurantoin, monohydrate 75 mg oral capsule (2 sources) Nitrofuran Antibacterial Start: 05-23-2025 take 1 capsule by mouth twice daily at mealtime ondansetron 4 mg disintegrating oral tablet (20 sources) Serotonin-3 Receptor Antagonist Start: 08-16-2024 take 1 tablet by mouth every eight hours as needed for nausea and vomiting Start: 12-15-2018 End: 10-09-2020 take 1 tablet [...] as needed for nausea and vomiting ONDANSETRON [id number] Janet Ramos DO Start: 05-03-2014 End: 05-07-2014 ZOFRAN 4 MG TABS 1 tablet ev shana 6 hours as needed for nausea ONDANSETRON HCL [id number] Janet Ramos DO Start: 05-03-2014 End: 05-07-2014 ZOFRAN 4 MG TABS 1 tablet ev shana 6 hours as needed for nausea ONDANSETRON HCL [id number] Janet Ramos DO 24 hr oxybutynin chloride 10 mg extended release oral tablet (20 sources) Cholinergic Muscarinic Antagonist Start: 07-31-2021 take 1 tablet by mouth once daily pantoprazole 40 mg delayed release oral tablet (15 sources) Proton Pump Inhibitor Start: 08-16-2024 take 1 tablet by mouth once daily take 40 mg by mouth once daily in the morning pantoprazole (PROTONIX) 40 mg grps Take 40 mg by mouth daily at 6 am. Active plecanatide 3 mg oral tablet (5 sources) Start: 03-27-2025 take 1 tablet by mouth once daily in the morning polyethylene glycol 3350 41016 mg powder for oral solution (20 sources) Osmotic Laxative Start: 01-28-2025 Start: 01-28-2025 End: 03-06-2025 Polyethylene Glycol 3350 [...] dailey bowel prep sheet POLYETHYLENE GLYCOL 3350 [id number] Johny Ponce MD Comment on above: Take by mouth. potassium chloride 20 meq extended release oral tablet (20 sources) Start: 10-08-2020 take 1 tablet by mikal th twice daily Start: 06-17-2016 End: 10-09-2020 take 1 tablet by mouth twice daily Potassium Chloride 20 MEQ tablet Discontinued 20 meq PO TWICE A DAY June 17, 2016 12:00am October 09, 2020 10:46am Start: 02-21-2015 take 1 tablet by mikal th twice daily POTASSIUM CHLORIDE ER 20 MEQ CR-TABS One tablet by mouth twice daily POTASSIUM CHLORIDE [id number] Chiquis Palacios PA-C Comment on above: Take 20 mEq by mouth twice daily. tiZANidine 4 mg oral tablet (20 sources) Central alpha-2 Adrenergic Agonist Start: 12-19-2024 End: 01-23-2025 take 1 tablet by mouth twice daily as needed Start: 09-28-2024 End: 11-16-2024 take 1 capsule by mouth every eight hours as needed Tizanidine (Zanaflex) 4 mg capsule Discontinued 4 mg PO Q8H as needed for muscle spasticity 20 0 September 28, 2024 1:00am November 16, 2024 10:44am traZODone hydrochloride 150 mg oral tablet (20 sources) Serotonin Reuptake Inhibitor Start: 09-28-2023 take 1 tablet by mouth at bedtime Start: 01-01-2022 End: 09-28-2023 Trazodone 100 mg [...] One tablet by mouth daily TRAZODONE HCL [id number] Fiordaliza Mcintosh Comment on above: Take 150 mg by mouth daily at bedtime. Vibegron (17 sources) Start: 11-16-2023 take 1 tablet by mikal th once daily Start: 11-16-2023 take 1 tablet by mikal [...] 6 HOURS as needed for pain 30 0 March 24, 2021 12:00am January 03, 2025 [...] T ABS q 6 hrs prn HYDROCODONE-ACETAMINOPHEN [id number] Angélica Marcelino IP ARCHITECT NORCO 5-325 MG T ABS q 6 hrs prn HYDROCODONE-ACETAMINOPHEN [id number] Angélica Marcelino IP ARCHITECT NORCO 5-325 MG T ABS q 6 hrs prn HYDROCODONE-ACETAMINOPHEN [id number] Cristobal Olmos Comment on above: Take 1 [...] November 21, 2023 10:29am Start: 09-27-2023 End: 08-16-2024 take 2.5 mg by inhalation every four to six hours as needed for wheezing Albuterol Sulfate 2.5 mg /3 mL (0.083 %) solution for nebulization Discontinued 2.5 mg INHALATION EVERY 4-6 HOURS as needed for Wheezing 180 November 21, 2023 10:29am August 16, 2024 11:26am Start: 01-01-2022 take 1 puff(s) by in halation once daily Albuterol Sulfate (Proair Hfa) 90 mcg/actuation HFA aerosol inhaler Active 1 PUFF INHALATION DAILY January 01, 2022 9:37am Start: 01-01-2022 End: 08-16-2024 Albuterol Sulfate (Proair Hf a) 90 mcg/actuation HFA aerosol inhaler Discontinued 1 NMA INHALATION DAILY 8.12 29November 21, 2023 10:29am August 16, 2024 11:26am Start: 01-01-2022 End: 11-21-2023 take 1 puff(s) by inhalation once daily Albuterol Sulfate (Proair Hfa) 90 mcg/actuation HFA aerosol inhaler Active 1 PUFF INHALATION DAILY 8.November 21, 2023 10:29am Start: 07-31-2021 take 1 puff(s) by in halation three times daily Albuterol Sulfate Active 2 PUFF INHALATION THREE TIMES A DAY .July 31, 2021 11:35am Start: 07-18-2018 End: 09-27-2023 take 2.5 mg by inhalation three times daily as needed for wheezing Albuterol Sulfate 2.5 mg /3 mL (0.083 %) solution for nebulization Discontinued 2.5 mg INHALATION 3 TIMES DAILY NEEDED as needed for Wheezing August 05, 2021 2:07pm September 27, 2023 4:57pm Start: 07-18-2018 End: 07-31-2021 Albuterol Sulfate 1 PUFF inh aler Discontinued 2 NMA INHALATION THREE TIMES A DAY July 18, 2018 2:47pm July 31, 2021 11:35am Start: 07-18-2018 End: 07-31-2021 take 1 puff(s) [...] 31, 2021 11:35am Start: 08-18-2017 End: 07-18-2018 take 1 puff(s) [...] q 4-6 hours PRN Wheezing ALBUTEROL SULFATE [id number] Angélica Marcelino IP ARCHITECT Start: 02-12-2016 take 2 puff(s) by in halation every four to six hours as needed for wheezing PROAIR HFA 108 (90 Base) MCG/ACT AERS 2 puffs INH q 4-6 hours PRN Wheezing ALBUTEROL SULFATE [id number] Angélica Marcelino IP ARCHITECT Start: 09-09-2013 End: 08-18-2017 take 1 puff(s) by inhalation every four hours as needed Albuterol Sulfate Discontinued 2 PUFF INHALATION EVERY 4 HOURS NEEDED September 09, 2013 3:08pm August 18, 2017 12:15pm Start: 09-09-2013 End: 07-18-2018 Albuterol Sulfate 90 mcg/act uation HFA aerosol inhaler Discontinued 2 NMA INHALATION EVERY 4 HOURS NEEDED as needed for Bronchodialation 8.5 6 February 20, 2018 9:54am July 18, 2018 2:47pm Mild intermittent asthma, uncomplicated Start: 09-09-2013 End: 08-18-2017 take 1 puff(s) [...] Inhale 2 puffs as needed ALBUTEROL SULFATE [id number] Soraya Milton Start: 03-15-2013 End: 02-17-2017 PROAIR HFA 108 (90 Base) MCG /ACT AERS Inhale 2 puffs as needed ALBUTEROL SULFATE [id number] Soraya Milton Start: 03-15-2013 PROAIR HFA 108 (90 Base) MCG/ACT AERS Inhale 2 puffs as needed ALBUTEROL SULFATE [id number] Angélica Marcelino CNP Start: 03-15-2013 PROAIR HFA 108 (90 Base) MCG/ACT AERS Inhale 2 puffs as needed ALBUTEROL SULFATE [id number] Fiordaliza Mcintosh Comment on above: Inhale 2 Puffs as in structed as needed for Wheezing/Shortness of Breath. Inhale 2 Puffs as in structed. albuterol 0.833 mg/ml / ipratropium bromide 0.167 mg/ml inhalant solution (9 sources) Anticholinergic, beta2-Adrenergic Agonist Start: 11-01-2014 IPRATROPIUM-ALBUTEROL 0.5-2.5 (3) MG/3ML SOLN One inhalation every 6 hours as needed for asthma IPRATROPIUM-ALBUTEROL [id number] Janet Ramos DO Start: 06-04-2014 End: 06-11-2014 IPRATROPIUM-ALBUTEROL 0.5-2. 5 (3) MG/3ML SOLN one inhalation via nebulizer as needed every 4 hours for cough IPRATROPIUM-ALBUTEROL [id number] Janet Ramos DO Albuterol Sulfate 1 PUFF inhaler (20 [...] /3 mL (0.083 %) solution for nebulization (11 sources) Start: 11-21-2023 End: 08-16-2024 take 2.5 [...] tablet by mouth three times daily AMOXICILLIN [id number] Cathie Sher DIRECTOR OF PHYSICAL SECURITY amoxicillin 875 mg / clavulanate 125 mg oral tablet (20 sources) Penicillin-class Antibacterial Start: 10-19-2023 End: 11-16-2023 [...] TBEC One tablet by mouth daily ASPIRIN [id number] Cristobal Olmos Start: 04-18-2014 take 1 tablet by mikal th once daily ASPIR-81 81 MG TBEC One tablet by mouth daily ASPIRIN [id number] Jani Mckeon MD Start: 04-18-2014 End: 11-07-2014 take 1 tablet by mouth once daily ASPIR-81 81 MG TBEC One tablet by mouth daily ASPIRIN [id number] Cristobal Olmos azithromycin 250 mg oral tablet (20 sources) Macrolide Antimicrobial Start: 07-28-2023 End: 09-28-2023 Azithromycin 250 mg tablet Discontinued 0 PO .COMPLEX 6 0 July 28, 2023 1:00am September 28, 2023 12:20pm For 250 mg dose pack: take 500 mg today (day 1), then 250 mg for 4 days (days 2-5) PO Start: 07-28-2023 End: 09-28-2023 Azithromycin Discontinued 0 PO .COMPLEX 6 July 28, 2023 1:00am September 28, 2023 12:20pm For 250 mg dose pack: take 500 mg today (day 1), then 250 mg for 4 days (days 2-5) PO Start: 01-29-2016 End: 02-12-2016 ZITHROMAX Z-DEONNA 250 MG TABS take as directed on pack AZITHROMYCIN [id number] Kathia Carreno Start: 09-01-2015 End: 09-06-2015 take 2 tablets by mouth once, then take 1 tablet by mouth once daily, then take 2-5 tablets by mouth AZITHROMYCIN 250 MG TABS 2 PO on day 1 then 1 PO daily on days 2-5 AZITHROMYCIN [id number] Janet Ramos DO benzonatate 200 mg oral capsule (19 sources) Non-narcotic Antitussive Start: 08-19-2015 End: 08-24-2015 take 1 capsule by mouth three times daily as needed for cough BENZONATATE 200 MG CAPS one capsule by mouth as needed 3 times a day for cough BENZONATATE [id number] Janet Ramos DO Start: 05-30-2014 End: 06-09-2014 take 1 tablet by mouth three times daily as needed for cough BENZONATATE 200 MG CAPS One tablet by mouth three times daily as needed for cough BENZONATATE [id number] Janet Ramos DO Start: 05-20-2014 End: 05-25-2014 take 1 tablet by mouth three times daily as needed for cough BENZONATATE 200 MG CAPS One tablet by mouth three times daily as needed for cough BENZONATATE [id number] Janet Ramos DO Start: 05-14-2014 End: 12-26-2024 take 1 tablet by mouth three times daily as needed for cough BENZONATATE 100 MG CAPS One tablet by mouth three times daily as needed for cough BENZONATATE [id number] Janet Ramos DO Comment on above: Take 100 mg by mouth three times daily as needed. bisacodyl 5 mg delayed release oral tablet (12 sources) Stimulant Laxative Start: 06-01-2016 DULCOLAX 5 MG TBEC follow bowel prep sheet BISACODYL [id number] Johny Ponce MD Start: 06-01-2016 DULCOLAX 5 MG TBEC follow bowel prep sheet BISACODYL [id number] Johny Ponce MD Start: 03-27-2014 DULCOLAX 10 MG SUPP once a week BISACODYL [id number] Janet Ramos DO Start: 03-27-2014 End: 11-07-2014 DULCOLAX 10 MG SUPP as neede d BISACODYL [id number] Jani Mckeon MD Start: 03-27-2014 DULCOLAX 10 MG SUPP once a week BISACODYL [id number] Janet Ramos DO Start: 03-27-2014 End: 11-07-2014 DULCOLAX 10 MG SUPP as neede d BISACODYL [id number] Cristobal Olmos Budesonide-Formoterol (20 sources) Corticosteroid, beta2-Adrenergic [...] 2 NMA INHALATION TWICE A DAY 1 3 November 21, 2023 12:00am August 16, 2024 11:26am administer with spacer, rinse mouth after each use Start: 11-21-2023 End: 08-16-2024 Budesonide-Formoterol (Symbi claudia) 160-4.5 mcg/actuation HFA aerosol inhaler Discontinued 2 NMA INHALATION TWICE A DAY 1 November 21, 2023 12:00am August 16, 2024 11:26am administer with spacer, rinse mouth after each use Start: 11-21-2023 take 1 puff(s) by [facility] twice daily Budesonide-Formoterol (Symbicort) 160-4. 5 mcg/actuation [...] cap by mouth once daily CETIRIZINE HCL [id number] Cathie Sher DIRECTOR OF PHYSICAL SECURITY cholecalciferol 1.25 mg oral capsule (20 sources) [...] Start: 11-23-2018 take 1 capsule by mo uth every week cholecalciferol, Vitamin D3, (VITAMIN D3) 50,000 unit cap capsule Take 1 capsule by mouth once each week. 12 capsule 2 11/23/2018 Active Comment on above: Take 1 capsule by mo uth once each week. ciprofloxacin 500 mg oral tablet (6 sources) Quinolone Antimicrobial Start: 05-01-20 14 End: 05-11-20 14 take 1 tablet by mouth twice daily CIPROFLOXACIN HCL 500 MG TABS One tablet by mouth twice daily CIPROFLOXACIN HCL [id number] Janet Ramos DO Start: 03-27-2014 End: 03-30-2014 take 1 tablet by mouth twice daily CIPRO 250 MG TABS Take one (1) by mouth twice a day CIPROFLOXACIN HCL [id number] Janet Ramos DO clotrimazole 10 mg/ml vaginal cream (9 sources) Azole Antifungal Start: 06-03-2014 End: 06-10-2014 CLOTRIMAZOLE-7 1 % CREA insert one applicatorful daily at night for 7 days CLOTRIMAZOLE [id number] Janet Ramos DO Start: 06-03-2014 End: 06-10-2014 CLOTRIMAZOLE-7 1 % CREA inse rt one applicatorful daily at night for 7 days CLOTRIMAZOLE [id number] Janet Ramos DO Start: 03-15-2013 End: 09-17-2013 CLOTRIMAZOLE 1 % CREA Apply 1 application to affected area twice daily CLOTRIMAZOLE [id number] Domenica Hedrick MD codeine phosphate 2 mg/ml / guaiFENesin 20 mg/ml oral solution (9 sources) Opioid Agonist Start: 06-19-2014 End: 11-07-2014 GUAIFENESIN AC SYRP GUAIFENESIN-CODEINE SYRP [id number] Cristobal Olmos Start: 06-19-2014 End: 11-07-2014 GUAIFENESIN AC SYRP GUAIFENESIN-CODEINE SYRP [id number] Cristobal Olmos Start: 06-19-2014 GUAIFENESIN AC SYRP GUAIFENESIN-CODEINE SYRP [id number] Cristobal Olmos Start: 06-14-2014 End: 06-19-2014 GUAIFENESIN-CODEINE 100-10 M G/5ML SYRP 10 mL every four hours as needed for cough GUAIFENESIN-CODEINE [id number] Janet Ramos DO cyclobenzaprine hydrochloride 5 mg oral tablet (13 sources) Muscle Relaxant Start: 03-28-2017 End: 12-26-2024 cyclobenzaprine (FLEXERIL) 5 mg tablet 03/28/2017 12/26/2024 Discontinued (Discontinued by another Health Care Provider) Start: 05-16-2015 End: 05-26-2015 take 1 tablet by mouth once daily at bedtime CYCLOBENZAPRINE HCL 10 MG TABS One tablet by mouth daily at bedtime CYCLOBENZAPRINE HCL [id number] June Weiner [employer] dextromethorphan hydrobromide 20 mg / guaiFENesin 400 mg oral tablet (20 sources) Uncompetitive J-xpwphm-A-aspartate Receptor Antagonist, Sigma-1 Agonist Start: 05-15-2018 End: 08-02-2018 Dextromethorphan-Guaifenesin 20-400 mg tablet Discontinued 1 {tbl} PO Q4H as needed for cough 30 0 May 22, 2018 1:54pm August 02, 2018 [...] by mouth three times daily DICLOFENAC POTASSIUM [id number] Cathie Sher NP Comment on above: Apply [...] twice daily for 10 days DOXYCYCLINE HYCLATE [id number] Janet Gail Erik MA [id number] 0.3 ml EPINEPHrine 1 mg/ml auto-injector (20 sources) alpha-Adrenergic Agonist, beta-Adrenergic Agonist, Catecholamine Start: 4 End: 4 Epinephrine 0.3 mg/0.3 mL auto-injector Discontinued 0.3 mg IM ONCE September 27, 2023 1:00am August 16, 2024 11:27am as a single dose; may repeat once Start: 07-30-2015 EPIPEN 2-DEONNA 0 .3 MG/0.3ML SOAJ Inject as needed EPINEPHRINE [id number] Janet Ramos DO Start: 07-30-2015 EPIPEN 2-DEONNA 0 .3 MG/0.3ML SOAJ Inject as needed EPINEPHRINE [id number] Janet Ramos DO Start: 05-30-2014 End: 08-30-2014 AUVI-Q 0.3 MG/0.3ML SOAJ Use as directed for bee stings EPINEPHRINE [id number] Janet Ramos DO Start: 05-30-2014 End: 08-30-2014 AUVI-Q 0.3 MG/0.3ML SOAJ Use as directed for bee stings EPINEPHRINE [id number] Janet Ramos DO Start: 03-15-2013 End: 09-17-2013 EPIPEN 0.3 MG/0.3ML LUIS MIGUEL Inj ect for bee stings EPINEPHRINE [id number] Domenica Hedrick MD Start: 03-15-2013 EPIPEN 0.3 MG/ 0.3ML LUIS MIGUEL Inject for bee stings EPINEPHRINE [id number] Fiordaliza Mcintosh Start: 03-15-2013 End: 09-17-2013 EPIPEN 0.3 MG/0.3ML LUIS MIGUEL Inj ect for bee stings EPINEPHRINE [id number] Domenica Hedrick MD Start: 10-02-2012 End: 12-26-2024 EPINEPHrine (EPIPEN) 0.3 mg/ 0.3 mL (1:1,000) atIn Inject 0.3 mg intramuscularly as needed. for bee stings. 10/02/2012 12/26/2024 Discontinued (Discontinued by another Health Care Provider) Comment on above: Inject 0.3 mg intram uscularly as needed. for bee stings. estradiol 2 mg oral tablet (20 sources) Estrogen Start: End: take 1 mg by mouth once [...] patch to skin every 72 hours FENTANYL [id number] Cathie Sher DIRECTOR OF PHYSICAL SECURITY Start: 04-18-2014 FENTANYL 12 MC G/HR PT72 apply every 3 days FENTANYL [id number] Jani Mckeon MD Start: 03-15-2013 End: 04-16-2016 FENTANYL 75 MCG/HR PT72 appl y 1 patch to skin every 72 hours FENTANYL [id number] Cathie Sher NP End: 12-25-2014 FENTANYL 25 MCG/HR PT72 appl y q 3 days FENTANYL [id number] Cristobal Olmos FENTANYL 25 MCG/HR PT72 (FENTANYL) (6 sources) Start: 03-15-2013 End: 04-18-2014 FENTANYL 25 MCG/HR PT72 (FENTANYL) Apply 1 patch as directed every 72 hours FENTANYL 25 MCG/HR PT72 (FENTANYL) Jani Mckeon MD Start: 03-15-2013 FENTANYL 25 MC G/HR PT72 (FENTANYL) Apply 1 patch as directed every 72 hours Janet Ramos DO ferrous sulfate 325 mg delayed release oral tablet (10 sources) Start: 01-23-2025 End: 03-06-2025 take 1 [...] One tablet by mouth daily FLUOXETINE HCL [id number] Janet Ramos DO End: 04-18-2014 PROZAC 20 MG CAPS FLUOXETINE HCL [id number] Domenica Hedrick MD End: 04-18-2014 PROZAC 20 MG CAPS FLUOXETINE HCL [id number] Domenica Hedrick MD flurazepam hydrochloride 15 mg [...] One puff INH daily FLUTICASONE FUROATE-VILANTERO L [id number] Janet Ramos DO Start: 11-07-2014 End: 11-22-2014 take 1 puff(s) by inhalation once daily BREO ELLIPTA 100-25 MCG/INH AEPB One puff INH daily FLUTICASONE FUROATE-VILANTEROL [id number] Janet Ramos DO Start: 11-07-2014 take 1 puff(s) by in halation once daily BREO ELLIPTA 100-25 MCG/INH AEPB One puff INH daily FLUTICASONE FUROATE-VILANTEROL [id number] Cristobal Olmos Start: 10-28-2014 End: 11-04-2014 BREO ELLIPTA 100-25 MCG/INH AEPB One inhalation daily for Asthma Exacerbation FLUTICASONE FUROATE-VILANTEROL [id number] Janet Ramos DO Start: 10-28-2014 End: 11-04-2014 BREO ELLIPTA 100-25 MCG/INH AEPB One inhalation daily for Asthma Exacerbation FLUTICASONE FUROATE-VILANTEROL [id number] Janet Ramos DO 120 actuat formoterol fumarate 0.005 mg/actuat / mometasone furoate 0.2 mg/actuat metered dose inhaler (9 sources) Corticosteroid, beta2-Adrenergic Agonist Start: 11-13-2014 End: 11-14-2015 take 1 puff(s) by inhalation once daily DULERA 200-5 MCG/ACT AERO 1 puff inh daily MOMETASONE FURO-FORMOTEROL FUM [id number] Angélica Marcelino IP ARCHITECT Start: 11-13-2014 End: 11-14-2015 take 1 puff(s) by inhalation once daily DULERA 200-5 MCG/ACT AERO 1 puff inh daily MOMETASONE FURO-FORMOTEROL FUM [id number] Janet Ramos Start: 11-13-2014 take 1 puff(s) by in halation once daily DULERA 200-5 MCG/ACT AERO 1 puff inh daily MOMETASONE FURO-FORMOTEROL FUM [id number] Angélica Marcelino IP ARCHITECT Start: 11-13-2014 take 1 puff(s) by in halation once daily DULERA 200-5 MCG/ACT AERO 1 puff inh daily MOMETASONE FURO-FORMOTEROL FUM [id number] Cristobal Olmos gabapentin 300 mg oral capsule [...] Start: 03-15-2013 take 1 tablet by mikal th once daily HYDROCHLOROTHIAZIDE 12.5 MG CAPS One tablet by mouth daily HYDROCHLOROTHIAZIDE [id number] Janet Ramos DO End: 12-26-2024 take 2 tablets by mouth once daily hydroCHLOROthiazide (HYDRODIURIL, ESIDRIX) 12.5 mg tablet Take 25 mg by mouth once daily. 12/26/2024 Discontinued (Discontinued by another Health Care Provider) Comment on above: Take 25 mg by mouth once daily. ibuprofen 400 mg oral tablet (20 sources) Nonsteroidal Anti-inflammatory Drug Start: 3 End: 4 take 1 tablet by mouth every six [...] 6 hours as needed for pain IBUPROFEN [id number] Domenica Hedrick MD ipratropium bromide 0.021 mg/actuat metered dose nasal spray (20 sources) Anticholinergic Start: 11-03-2017 End: 12-26-2024 Ipratropium [place] (ATROVENT) 0.03 % nasal spray 11/03/2017 12/26/2024 Discontinued (Discontinued by another Health Care Provider) Start: 11-03-2017 End: 09-28-2023 Ipratropium [place] 0.03 % sheron rodríguez,non-aerosol Discontinued 2 NMA INTRANASAL 2 to 3 times per day as needed for allergy symptoms 25 02February 18, 2020 10:49am September 28, 2023 12:24pm administer into each nostril; wait 30 seconds between sprays Start: 11-03-2017 End: 09-28-2023 Ipratropium [place] Disconti nued 2 SPRAY INTRANASAL 2 to [...] once daily. lactulose 667 mg/ml oral solution (20 sources) Osmotic Laxative Start: 01-23-2025 End: 03-06-2025 [...] daily for 7 days for pneumonia LEVOFLOXACIN [id number] Janet Ramos DO linaclotide 0.29 mg oral capsule (20 [...] twice daily as needed for anxiety LORAZEPAM [id number] Angélica Marcelino CNP Start: 12-25-2014 End: 01-30-2015 take 1 tablet by mouth once daily as needed for anxiety LORAZEPAM 1 MG TABS One tablet by mouth daily as needed for anxiety LORAZEPAM [id number] Janet Ramos DO lubiprostone 0.024 mg oral capsule (20 sources) Chloride Channel Activator Start: 08-16-2024 End: [...] TABS One tablet by mouth daily MELOXICAM [id number] Zainab Romano LPN methocarbamol 500 mg oral [...] One tablet by mouth daily MONTELUKAST SODIUM [id number] Jani Mckeon MD Multivitamin 1 EACH tablet (13 sources) Start: 8 End: 1 Multivitamin 1 [...] 1:00am October 09, 2020 10:46am Multivitamin tablet (13 sources) Start: 09-20-2024 End: 10-25-2024 Multivitamin tablet [...] Discontinued 25 mg PO AT BEDTIME 30 2 June 03, 2021 12:00am August 03, 2021 11:26am nystatin 191707 unt/ml topical cream (9 sources) Polyene Antifungal Start: 03-27-20 14 End: 11-08-19 NYSTATIN 410448 UNIT/GM CREA three times a day as needed NYSTATIN [id number] Cristobal Olmos Start: 03-27-2014 End: 11-07-2014 NYSTATIN 220543 UNIT/GM CREA three times a day NYSTATIN [id number] Janet Ramos DO OLANZapine 10 mg oral tablet (20 [...] One tablet by mouth twice daily OMEPRAZOLE [id number] Domenica Hedrick MD End: 12-26-2024 take 1 capsule by mouth once daily omeprazole (PRILOSEC) 20 mg capsule Take 20 mg by mouth once daily. 12/26/2024 Discontinued (Discontinued by another Health Care Provider) Comment on above: Take 20 mg by mouth once daily. polyethylene glycol 3350 242444 mg / potassium chloride 2970 mg / sodium bicarbonate 6740 mg / sodium chloride 5860 mg / sodium sulfate 49817 mg powder for oral solution (11 sources) Osmotic Laxative Start: 01-03-2025 End: 01-28-2025 Peg 3350-Electrolytes (Golytely) 236-22.74-6.74 -5.86 gram recon soln Discontinued 240 mL PO Q10M 4000 0 January 03, 2025 12:00am January 28, 2025 10:06pm take as directed for split dose bowel prep POLYETHYLENE GLYCOL 3350 (1 source) Start: 06-01-2016 MIRALAX POWD follow bowel prep sheet POLYETHYLENE GLYCOL 3350 [id number] Johny Ponce MD Potassium (5 sources) End: [...] One tablet by mouth daily PRAVASTATIN SODIUM [id number] Fiordaliza Mcintosh Start: 03-15-2013 take 1 tablet by mikal at bedtime PRAVACHOL 40 MG TABS One tablet by mouth at bedtime. PRAVASTATIN SODIUM [id number] Janet Ramos DO Start: 03-15-2013 End: 11-14-2015 PRAVACHOL 40 MG TABS ON HOLD PRAVASTATIN SODIUM [id number] Janet Ramos DO prazosin 1 mg oral capsule (20 sources) alpha-Adrenergic Kim Start: 09-28-2023 End: 08-16-2024 take 1 capsule by mouth at bedtime Prazosin 1 mg capsule Discontinued 1 mg PO AT BEDTIME September 28, 2023 1:00am August 16, 2024 8:34am Start: 12-26-2015 End: 04-16-2016 PRAZOSIN HCL 1 MG CAPS take 1-2 capsules at bedtime for nightmares PRAZOSIN HCL [id number] Cathie Sher NP predniSONE 10 mg oral tablet (20 sources) [...] by mouth daily for 5 days. PREDNISONE [id number] Cristobal Olmos QUEtiapine 50 mg oral tablet (6 sources) Atypical Antipsychotic Start: 11-22-2014 End: 11-25-2014 take 1 tablet by mouth once daily QUETIAPINE FUMARATE 50 MG TABS One tablet by mouth daily at night QUETIAPINE FUMARATE [id number] Janet Ramos DO RESPIRATORY THERAPY SUPPLIES (1 source) NEBULIZER LUIS MIGUEL RESPIRATORY THERAPY SUPPLIES [id number] Cristobal Olmos RESPIRATORY THERAPY SUPPLIES (2 sources) NEBULIZER LUIS MIGUEL RESPIRATORY THERAPY SUPPLIES [id number] Cristobal Olmos risperiDONE 1 mg oral tablet (3 sources) Atypical Antipsychotic Start: 11-25-2014 End: 12-10-2014 take 1 tablet by mouth once daily RISPERIDONE 1 MG TABS One tablet by mouth daily for moods RISPERIDONE [id number] Janet Ramos DO sulfamethoxazole 800 mg / trimethoprim 160 mg oral tablet (16 sources) Dihydrofolate Reductase Inhibitor Antibacterial, Sulfonamide Antimicrobial Start: 04-24-2024 End: 08-16-2024 Sulfamethoxazole- Trimethoprim (Bactrim Ds) 800-160 mg tablet Discontinued 1 {tbl} PO TWICE A DAY 14 7 0 April 24, 2024 12:00am August 16, 2024 11:32am Start: 05-20-2014 End: 05-30-2014 take 1 tablet by mouth twice daily SULFAMETHOXAZOLE-TRIMETHOPRIM 800-160 MG TABS One tablet by mouth twice daily SULFAMETHOXAZOLE-TRIMETHOPRIM [id number] Janet Ramos DO triamcinolone acetonide 1 mg/ml topical cream [...] Comment on above: Take 1 capsule by [facility] once daily. Take in the morning with a full glass of water. divalproex sodium 125 mg delayed release oral capsule (6 sources) Mood Stabilizer, Anti-epileptic Agent Start: 12-06-2014 End: 12-13-2014 take 1 tablet by mouth once daily DIVALPROEX SODIUM 125 MG CSDR One tablet by mouth daily at night for moods DIVALPROEX SODIUM [id number] Janet Ramos DO 24 hr venlafaxine 75 mg extended [...] injection solution Discontinued 1000 MCG IM ONCE November 20, 2020 8:36am November 20, 2020 11:13am zolpidem tartrate 5 mg oral tablet (6 sources) gamma-Aminobu tyric Acid-ergic Agonist Start: 05-27-2016 End: 06-26-2016 take 1 tablet by mouth once daily AMBIEN 5 MG TABS One tablet by mouth daily every night ZOLPIDEM TARTRATE [id number] Dalia Lamas DC Problems Active Problems Problem [...] Translations: [Supraventricular tachycardia] Onset: 4 04-17-2014 Chronic Conditions associated with dizziness or vertigo (16 sources) Lightheadedness; Translations: [Dizziness and giddiness] Onset: 5 01-30-2015 Episodic Coronary atherosclerosis and other heart disease (17 sources) Atypical angina; Translations: [Anginal equivalent] 11-24-2023 Chronic Deficiency and other anemia (20 sources) Anemia; Translations: [Anemia, unspecified] 10-30-2024 Episodic Deficiency and other anemia (20 sources) Iron-refractory iron deficiency anemia; Translations: [Other iron deficiency anemias] 01-23-2025 Episodic Comment on above: Has been on Oral Iro n for about 1-2 years. Deficiency and other anemia (20 sources) Iron deficiency anemia; Translations: [Iron deficiency anemia, unspecified] 01-23-2025 Episodic Comment on above: Iron profile is norm al today, Hgb is 11.3 after Iron infusion. Iron profile is norm al today, Hgb is 12.4.Has no evidence of Lymphoma. Deficiency and other anemia (2 sources) Iron deficiency anemia, unspecified; Translations: [Iron deficiency anemia, unspecified] Onset: Episodic Deficiency and other anemia (14 sources) Deficiency and other anemia; Translations: [Iron deficiency anemia refractory to iron therapy] Diabetes mellitus without complication (20 sources) High hemoglobin A1c level; Translations: [Other abnormal glucose] 11-20-2020 Episodic Disorders of lipid metabolism (11 sources) [...] Resolved: 4 03-27-2014 Episodic Headache; including migraine (13 sources) Tension-type headache; Translations: [Tension-type headache, unspecified, not intractable] 10-06-2024 Chronic Headache; including migraine (13 sources) Headache; Translations: [Headache] 10-07-2024 Episodic Headache; [...] 1 12-28-2010 Chronic Other connective tissue disease (19 sources) History of total hip arthroplasty; Translations: [Presence of unspecified artificial hip joint] 12-19-2024 Chronic Other connective tissue disease (13 sources) Muscle spasm of cervical muscle of neck; Translations: [Other muscle spasm] 10-06-2024 Episodic Other gastrointestinal disorders (16 sources) Heartburn; Translations: [Heartburn] 09-20-2024 Episodic Other gastrointestinal disorders (17 sources) Defecation straining; Translations: [Other specified symptoms and signs involving the digestive system and abdomen] 08-16-2024 Episodic Other gastrointestinal disorders (20 sources) Constipation; Translations: [Constipation, unspecified] 08-16-2024 Episodic Other liver diseases (3 sources) Inflammatory disease of liver; Translations: [Inflammatory liver disease, unspecified] Onset: 6 11-14-2015 Chronic Other liver diseases (20 sources) Steatosis of liver; Translations: [Fatty (change of) liver, not elsewhere classified] 08-16-2024 Chronic Other liver diseases (2 sources) Fatty (change of) liver, not elsewhere classified; Translations: [Fatty (change of) liver, not elsewhere classified] Onset: 5 Chronic Other lower respiratory disease (20 sources) Dyspnea on exertion; Translations: [Other forms of dyspnea] 09-28-2023 Episodic Other lower respiratory disease (8 sources) Other forms of dyspnea; Translations: [Other respiratory abnormalities] 09-28-2023 Episodic Other nervous system disorders (20 sources) Sensory polyneuropathy; 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] 11-20-2020 Chronic Other non-traumatic joint disorders (20 sources) Pain in left knee; Translations: [Left knee pain] Onset: 5 05-27-2023 Episodic Other nutritional; endocrine; and metabolic [...] nutritional and metabolic disease] 12-26-2024 Episodic Other upper respiratory infections (20 sources) [...] degeneration, unspecified cervical region] Onset: 5 Chronic Sprains and strains (20 sources) Strain of [...] primary osteoarthritis, left knee] Unclassified (1 source) Low back pain, unspecified; Translations: [Low back pain, unspecified] Onset: 5 Unclassified (1 source) Other intervertebral disc degeneration, [...] tissue, initial encounter] Onset: 07-01-2014 07-01-2014 Episodic Deficiency and other anemia (2 sources) Other iron deficiency anemias; Translations: [Other iron deficiency anemias] Onset: 01-23-2025 Episodic Deficiency and other anemia (2 sources) Anemia, unspecified; Translations: [Anemia, unspecified] Onset: 11-30-2024 Episodic Diseases of mouth; excluding dental (4 sources) Xerostomia; Translations: [Dry mouth, unspecified] Onset: 12-26-2024 Episodic Fluid and electrolyte disorders (14 sources) Hyponatremia; Translations: [Hypokalemia] Onset: 04-17-2013 Resolved: 09-02-2014 05-29-2014 Episodic Malaise and fatigue (3 sources) Fatigue; Translations: [Other fatigue] Onset: 11-14-2015 Resolved: 11-24-2015 11-14-2015 Episodic Nausea and vomiting (3 sources) Nausea; Translations: [Nausea] Onset: 11-14-2015 Resolved: 11-24-2015 11-14-2015 Episodic Other aftercare (3 sources) Long-term (current) use of other medications; Translations: [Other long wall mining machine tender (current) drug therapy] Onset: 10-17-2014 Resolved: 04-17-2015 [...] Onset: 01-30-2015 Resolved: 11-22-2014 01-30-2015 Episodic Other nutritional; endocrine; and metabolic disorders (1 source) Personal history of other endocrine, nutritional and metabolic disease; Translations: [History of vitamin D deficiency] Onset: 12-26-2024 Episodic Other screening for suspected conditions (not [...] Translations: [Lumbosacral radiculopathy] Onset: 10-02-2012 03-27-2014 Episodic Superficial injury; contusion (6 sources) Contusion of wrist; Translations: [Contusion of unspecified wrist] Resolved: 05-14-2014 03-20-2013 Episodic Viral infection (3 sources) Herpes simplex; Translations: [Herpesviral infection, unspecified] Onset: 11-22-2014 11-22-2014 Episodic Results Test Name Value Interpretation Reference Range [facility] Bang ([id number]) 1955 F Date Time Provider Department 07/05/25 ISABEL CERON During your visit today, we recorded the following information about you: Allergies As of Date: 07/05/2025 Noted Allergy Reaction BEE STING 03/27/2014 10 [...] POLLEN 03/27/2014 7 - Swelling Comments: Edema KEFLEX (CEPHALEXIN) 12/26/2024 2 - Rash MELOXICAM 12/11/2007 2 - Rash 4 - Hives 9 - Itching PENTAZOCINE LACTATE 02/16/2006 4 - Hives 2 - Rash PREDNISONE 12/11/2008 7 - Swelling Comments: Edema SHELLFISH 02/16/2006 7 - Swelling SHELLFISH DERIVED 02/16/2006 7 - Swelling TRAMADOL 12/26/2024 4 - Hives QUETIAPINE 11/25/2014 1 - Mental Status Change Comments: shaking, lightheaded and abnormal dreams Date Reviewed: 12/26/2024 Reviewed by: Verenice Moise, SCARLETT - Fully Assessed Prescriptions as of 07/08/2025 - vibegron (GEMTESA) 75 mg tablet Take 75 mg by mouth once daily. - guaiFENesin (MUCINEX) 600 mg 12 hr tablet Take 1,200 mg by mouth two times a day. - metoprolol tartrate, short acting, (LOPRESSOR) 25 mg tablet Take 25 mg by mouth two times a day. - lubiprostone (AMITIZA) 24 mcg capsule Take 24 mcg by mouth two times a day with meals. - oxybutynin ER (DITROPAN XL) 10 mg 24 hr tablet Take 10 mg by mouth once daily. - pantoprazole (PROTONIX) 40 mg grps Take 40 mg by mouth daily at 6 am. - polyethylene glycol 3350 4 gram pwpk Take by mouth. - traZODone (DESYREL) 150 mg tablet Take 150 mg by mouth daily at bedtime. - diclofenac (VOLTAREN) 1 % topical gel Apply 4 g to affected area four times daily. - cholecalciferol, Vitamin D3, (VITAMIN D3) 50,000 unit cap capsule Take 1 capsule by mouth once each week. - amLODIPine (NORVASC) 10 mg tablet Take 5 mg by mouth once daily. - lisinopril (ZESTRIL, PRINIVIL) 10 mg tablet Take 10 mg by mouth once daily. - potassium chloride ER (K-DUR, KLOR-CON) 20 mEq tablet Take 20 mEq by mouth twice daily. - DULoxetine (CYMBALTA) 30 mg capsule Take 30 mg by mouth twice daily. 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] 01/09/2009 OTHER HAMMER TOE [M20.40] 01/09/2009 PAIN IN LIMB [M79.609] 02/04/2009 Unspecified Cellulitis and Abscess of Toe [L03.*05/08/2009 Unspecified Asthma [J45.909] Hematoma [T14.8XXA] 02/19/2010 Exostosis of Unspecified Site [M89.8X9] 02/19/2010 Sprain and strain of unspecified site of foot [*11/02/2010 Allergic reaction to bee sting [T63.441A] 12/09/2010 Porokeratosis [Q82.8] 12/28/2010 Tendonitis [M77.9] 01/13/2011 Capsulitis [M77.9] 02/15/2011 Abnormality of gait [R26.9] 05/17/2011 L-S radiculopathy [M54.17] 10/02/2012 Hypokalemia [E87.6] 04/17/2013 OCD (obsessive compulsive disorder) [F42.9] 08/06/2013 Insomnia [G47.00] 08/06/2013 Hyperlipidemia [E78.5] 09/26/2013 Abdominal pain [R10.9] 03/26/2014 Obesity (BMI 30-39.9) [E66.9] 03/26/2014 Right flank pain [R10.A1] 06/10/2014 Kidney stones [N20.0] 06/10/2014 Erosion of bladder suspension mesh (HCC) [T83.7*07/01/2014 Elevated LFTs [R79.89] Encounter Status:Closed by RAOUL SRINIVASAN on 07/08/25 Normal [facility] Knee 4 or More Viewson 06-24 Knee 4 or More Views Normal [facility] Orthopedic Visit Reporton Orthopedic Visit Report Normal [facility] Absolute lymphocyte countOrd ered By: John Jang on 06-12-2025 Lymphocytes Auto (Unsp spec) [#/Vol] 3.92 10*3/uL 0.83-4.51 [facility] Absolute neutrophil countOrd ered By: John Jang on 06-12-2025 Neutrophils (Bld) [#/Vol] 4.8 10*3/uL 2.0-7.7 [facility] Anion gap in Serum or Plasma Ordered By: John Jnag on 06-12-2025 Anion gap [Moles/Vol] 13 mmol/L 01-10 [facility] Automated lymphocyte count a s percentage of total leukocytesOrdered By: John Jang on 06-12-2025 Lymphocytes/100 WBC Auto (Unsp spec) 40.6 % [facility] BUN/creatinine ratioOrdered By: John Jang on 06-12-2025 Urea nitrogen/Creatinine [Mass ratio] 32.5 mg/mg High 06-17 [facility] Comment on above: Previous reported re sult: 32.5 RATIOEdited by: AUTOINS on 06/12/25:1357 AMENDED REPORT 06/12/25 1357 BUN/CRE previously reported as: 32.5 H RATIO Previous reported result: 31.8 RATIOEdited by: AUTOINS on 06/12/25:1404 AMENDED REPORT 06/12/25 1404 BUN/CRE previously reported as: 31.8 H RATIO Basophil percentageOrdered B y: John Jang on 06-12-2025 Basophils/100 WBC (Bld) 0.2 % 0-1 [facility] Bilirubin, totalOrdered By: John Jang on 06-12-2025 Bilirubin [Mass/Vol] 0.18 mg/dL 0.00-1.30 [facility] Comment on above: Previous reported re sult: 0.18 mg/dLEdited by: AUTOINS on 06/12/25:1357 AMENDED REPORT 06/12/25 1357 T BILI previously reported as: 0.18 mg/dL Previous reported result: 0.22 mg/dLEdited by: AUTOINS on 06/12/25:1404 AMENDED REPORT 06/12/25 1404 T BILI previously reported as: 0.22 mg/dL CBC W/Diff, Automatedon 05-29 Absolute Lymph 3.92 X10 3/uL Normal 0.83-4.51 [facility] Comment on above: Performed By: #### L 500.4050, L503.6030, L504.2610, L501.2300, L100.0100, L501.5200, L503.6550, L503.0106 ####[facility] [address] [place], [place], [address] Absolute Neut 4.8 X10 3/uL Normal 2.0-7.7 [facility] Comment on above: Performed By: #### L 500.4050, L503.6030, L504.2610, L501.2300, L100.0100, L501.5200, L503.6550, L503.0106 ####[facility] [address] [place], [address] Basophils/100 WBC (Bld) 0.2 % Normal 0-1 [facility] Comment on above: Performed By: #### L 500.4050, L503.6030, L504.2610, L501.2300, L100.0100, L501.5200, L503.6550, L503.0106 ####[facility] [address] [place], [address] Eosinophils/100 WBC (Bld) 0.6 % Normal 0-5 [facility] Comment on above: Performed By: #### L 500.4050, L503.6030, L504.2610, L501.2300, L100.0100, L501.5200, L503.6550, L503.0106 ####[facility] [address] [place], [address] Erythrocyte distribution width (RBC) [Ratio] 17.6 % High 11.6-14.6 [facility] Comment on above: Performed By: #### L 500.4050, L503.6030, L504.2610, L501.2300, L100.0100, L501.5200, L503.6550, L503.0106 ####[facility] [address] [place], [address] Hematocrit (Bld) [Volume fraction] 39.6 % Normal 37-47 [facility] Comment on above: Performed By: #### L 500.4050, L503.6030, L504.2610, L501.2300, L100.0100, L501.5200, L503.6550, L503.0106 ####[facility] [address] [place], [address] Hemoglobin (Bld) [Mass/Vol] 12.4 g/dL Normal 12.0-15.0 [facility] Comment on above: Performed By: #### L 500.4050, L503.6030, L504.2610, L501.2300, L100.0100, L501.5200, L503.6550, L503.0106 ####[facility] [address] [place], [address] IG% 0.500 Normal 0.0-0.9 [facility] Comment on above: Result Comment: IG% - Immature Granulocytes (promyelocytes, myelocytes andmetamyelocytes) > 1% indicates that a LEFT SHIFT is Present. Performed By: #### L 500.4050, L503.6030, L504.2610, L501.2300, L100.0100, L501.5200, L503.6550, L503.0106 ####[facility] [address] [place], [address] Lymphocytes/100 WBC (Bld) 40.6 % Normal 19-41 [facility] Comment on above: Performed By: #### L 500.4050, L503.6030, L504.2610, L501.2300, L100.0100, L501.5200, L503.6550, L503.0106 ####[facility] [address] [place], [address] MCH (RBC) [Entitic mass] 29.0 pg Normal 27.0-32.0 [facility] Comment on above: Performed By: #### L 500.4050, L503.6030, L504.2610, L501.2300, L100.0100, L501.5200, L503.6550, L503.0106 ####[facility] [address], [address] MCHC (RBC) [Mass/Vol] 31.3 g/dL Low 32-36 [facility] Comment on above: Performed By: #### L 500.4050, L503.6030, L504.2610, L501.2300, L100.0100, L501.5200, L503.6550, L503.0106 ####[facility] [address] [place], [address] MCV (RBC) [Entitic vol] 92.7 fL Normal 81-99 [facility] Comment on above: Performed By: #### L 500.4050, L503.6030, L504.2610, L501.2300, L100.0100, L501.5200, L503.6550, L503.0106 ####[facility] [address] [place], [address] Monocytes/100 WBC (Bld) 8.3 % Normal 0-10 [facility] Comment on above: Performed By: #### L 500.4050, L503.6030, L504.2610, L501.2300, L100.0100, L501.5200, L503.6550, L503.0106 ####[facility] [address] [place], [address] Neutrophils/100 WBC (Bld) 49.8 % Normal 47-70 [facility] Comment on above: Performed By: #### L 500.4050, L503.6030, L504.2610, L501.2300, L100.0100, L501.5200, L503.6550, L503.0106 ####[facility] [address] [place], [address] Nucleated RBC (Bld) [#/Vol] 0 10*3/uL Normal 0-5 [facility] Comment on above: Performed By: #### L 500.4050, L503.6030, L504.2610, L501.2300, L100.0100, L501.5200, L503.6550, L503.0106 ####[facility] [address] [place], [address] Platelet mean volume (Bld) [Entitic vol] 8.2 fL Normal 6.2-12.0 [facility] Comment on above: Performed By: #### L 500.4050, L503.6030, L504.2610, L501.2300, L100.0100, L501.5200, L503.6550, L503.0106 ####[facility] [address] [place], [address] Platelets (Bld) [#/Vol] 349 10*3/uL Normal 150-450 [facility] Comment on above: Performed By: #### L 500.4050, L503.6030, L504.2610, L501.2300, L100.0100, L501.5200, L503.6550, L503.0106 ####[facility] [address] [place], [address] RBC (Bld) [#/Vol] 4.27 10*6/uL Normal 4.2-5.4 [facility] Comment on above: Performed By: #### L 500.4050, L503.6030, L504.2610, L501.2300, L100.0100, L501.5200, L503.6550, L503.0106 ####[facility] [address] [place], [address] RDW SD 58.7 fl High 35.1-43.9 [facility] Comment on above: Performed By: #### L 500.4050, L503.6030, L504.2610, L501.2300, L100.0100, L501.5200, L503.6550, L503.0106 ####[facility] [address] [place], [address] WBC (Bld) [#/Vol] 9.7 10*3/uL Normal 4.4-11.0 [facility] Comment on above: Performed By: #### L 500.4050, L503.6030, L504.2610, L501.2300, L100.0100, L501.5200, L503.6550, L503.0106 ####[facility] [address] [place], [place], [address] Carbon dioxide, total [Moles /volume] in Central venous bloodOrdered By: John Jang on 06-12-2025 CO2 [Moles/Vol] 23.3 mmol/L 21.0-32.0 [facility] Comment on above: Previous reported re sult: 23.3 mmol/LEdited by: AUTOINS on 06/12/25:1357 AMENDED REPORT 06/12/25 135 CO2 previously reported as: 23.3 mmol/L Previous reported result: 23.7 mmol/LEdited by: AUTOINS on 06/12/25:1404 AMENDED REPORT 06/12/251403 CO2 previously reported as: 23.7 mmol/L Chloride assayOrdered By: Natalya Jang on 06-12-2025 Chloride [Moles/Vol] 100 mmol/L 98-108 [facility] Comprehensive Metabolic Prof ilon 06-12-2025 Albumin [Mass/Vol] 4.3 g/dL Normal 3.4-4.8 [facility] Comment on above: Result Comment: AMENDED REPORT 06/12/251403 ALB previously reported as: 4.2 g/dL Performed By: #### L 500.4050, L503.6030, L504.2610, L501.2300, L100.0100, L501.5200, L503.6550, L503.0106 ####[facility] [address] [place], [place], [id number] Albumin/Globulin [Mass ratio] 1.1 {ratio} Normal 0.9-2.4 [facility] Comment on above: Result Comment: AMENDED REPORT 06/12/251403 A/G previously reported as: 1.2 RATIO Performed By: #### L 500.4050, L503.6030, L504.2610, L501.2300, L100.0100, L501.5200, L503.6550, L503.0106 ####[facility] [address] [place], [address] ALK PHOS 90 U/L Normal 35-104 [facility] Comment on above: Result Comment: AMENDED REPORT 06/12/251403 ALK P previously reported as: 92 U/L Performed By: #### L 500.4050, L503.6030, L504.2610, L501.2300, L100.0100, L501.5200, L503.6550, L503.0106 ####[facility] [address] [place], [address] ALT [Catalytic activity/Vol] 10 U/L Normal <=34 [facility] Comment on above: Performed By: #### L 500.4050, L503.6030, L504.2610, L501.2300, L100.0100, L501.5200, L503.6550, L503.0106 ####[facility] [address] [place], [address] AST [Catalytic activity/Vol] 19 U/L Normal <=31 [facility] Comment on above: Performed By: #### L 500.4050, L503.6030, L504.2610, L501.2300, L100.0100, L501.5200, L503.6550, L503.0106 ####[facility] [address] [place], [address] Bilirubin [Mass/Vol] 0.18 mg/dL Normal 0.00-1.30 [facility] Comment on above: Result Comment: AMENDED REPORT 06/12/251403 T BILI previously reported as: 0.22 mg/dL Performed By: #### L 500.4050, L503.6030, L504.2610, L501.2300, L100.0100, L501.5200, L503.6550, L503.0106 ####[facility] [address] [place], [address] BUN/CRE 32.5 RATIO High 10-20 [facility] Comment on above: Result Comment: AMENDED REPORT 06/12/251403 BUN/CRE previously reported as: 31.8 H RATIO Performed By: #### L 500.4050, L503.6030, L504.2610, L501.2300, L100.0100, L501.5200, L503.6550, L503.0106 ####[facility] [address] [place], [address] Calcium [Mass/Vol] 10.0 mg/dL Normal 7.6-11.0 [facility] Comment on above: Result Comment: AMENDED REPORT 06/12/251403 CA previously reported as: 9.9 mg/dL Performed By: #### L 500.4050, L503.6030, L504.2610, L501.2300, L100.0100, L501.5200, L503.6550, L503.0106 ####[facility] [address] [place], [address] Chloride [Moles/Vol] 100 mmol/L Normal 98-108 [facility] Comment on above: Performed By: #### L 500.4050, L503.6030, L504.2610, L501.2300, L100.0100, L501.5200, L503.6550, L503.0106 ####[facility] [address] [place], [address] CO2 [Moles/Vol] 23.3 mmol/L Normal 21.0-32.0 [facility] Comment on above: Result Comment: AMENDED REPORT 06/12/251403 CO2 previously reported as: 23.7 mmol/L Performed By: #### L 500.4050, L503.6030, L504.2610, L501.2300, L100.0100, L501.5200, L503.6550, L503.0106 ####[facility] [address] [place], [address] Creatinine [Mass/Vol] 0.72 mg/dL Normal 0.70-1.20 [facility] Comment on above: Result Comment: AMENDED REPORT 06/12/251403 CREAT,SERUM previously reported as: 0.71 mg/dL Performed By: #### L 500.4050, L503.6030, L504.2610, L501.2300, L100.0100, L501.5200, L503.6550, L503.0106 ####[facility] [address] [place], [address] ECRCL 75.61 ml/min Normal 50-250 [facility] Comment on above: Performed By: #### L 500.4050, L503.6030, L504.2610, L501.2300, L100.0100, L501.5200, L503.6550, L503.0106 ####[facility] [address] [place], [address] GAP 13 Normal 5-15 [facility] Comment on above: Performed By: #### L 500.4050, L503.6030, L504.2610, L501.2300, L100.0100, L501.5200, L503.6550, L503.0106 ####[facility] [address] [place], [address] Globulin (S) [Mass/Vol] 3.7 g/dL Normal 2.2-4.2 [facility] Comment on above: Result Comment: AMENDED REPORT 06/12/251403 GLOB previously reported as: 3.6 g/dL Performed By: #### L 500.4050, L503.6030, L504.2610, L501.2300, L100.0100, L501.5200, L503.6550, L503.0106 ####[facility] [address] [place], [address] Glucose [Mass/Vol] 91 mg/dL Normal 70-99 [facility] Comment on above: Result Comment: AMENDED REPORT 06/12/25 GLU previously reported as: 90 mg/dL Performed By: #### L 500.4050, L503.6030, L504.2610, L501.2300, L100.0100, L501.5200, L503.6550, L503.0106 ####[facility] [address] [place], [address] Potassium [Moles/Vol] 4.0 mmol/L Normal 3.3-5.1 [facility] Comment on above: Performed By: #### L 500.4050, L503.6030, L504.2610, L501.2300, L100.0100, L501.5200, L503.6550, L503.0106 ####[facility] [address] [place], [address] Sodium [Moles/Vol] 136 mmol/L Normal 133-145 [facility] Comment on above: Performed By: #### L 500.4050, L503.6030, L504.2610, L501.2300, L100.0100, L501.5200, L503.6550, L503.0106 ####[facility] [address] [place], [address] T PROT 8.0 g/dL Normal 5.9-8.4 [facility] Comment on above: Result Comment: AMENDED REPORT 06/12/255 T PROT previously reported as: 7.9 g/dL Performed By: #### L 500.4050, L503.6030, L504.2610, L501.2300, L100.0100, L501.5200, L503.6550, L503.0106 ####[facility] [address] [place], [place], [phone]) Urea nitrogen [Mass/Vol] 23 mg/dL High 4-19 [facility] Comment on above: Performed By: #### L 500.4050, L503.6030, L504.2610, L501.2300, L100.0100, L501.5200, L503.6550, L503.0106 ####[facility] [address] [place], [place], [address] Eosinophil percentageOrdered By: John Jang on 06-12-2025 Eosinophils/100 WBC (Bld) 0.6 % 0-5 [facility] Erythrocyte distribution wid th ratioOrdered By: John Jang on 06-12-2025 Erythrocyte distribution width (RBC) [Ratio] 17.6 % High 11.6-14.6 [facility] Erythrocyte distribution wid th standard deviationOrdered By: John Jang on 06-12-2025 Erythrocyte distribution width (RBC) [Ratio] 58.7 fl High 35.1-43.9 [facility] Ferritinon 06-12-2025 Ferritin [Mass/Vol] 110 ng/mL Normal 22-378 [facility] Comment on above: Result Comment: AMENDED REPORT 06/12/25 6817 FERRITIN previously reported as: 94 ng/mL Performed By: #### L 500.4050, L503.6030, L504.2610, L501.2300, L100.0100, L501.5200, L503.6550, L503.0106 ####[facility] [address] [place], [place], [id number] Glomerular filtration rate ( GFR) estimation/1.73 sq m using serum, plasma, or whole bOrdered By: John Jang on 06-12-2025 GFR/1.73 sq M.predicted among non-blacks MDRD (S/P/Bld) [Vol rate/Area] 91 mL/min/{1.73_m2} >60 [facility] Comment on above: mL/min/1.73m2 CKD-EP I Creatinine Equation (2020) Hematocrit Auto (Bld) [Volum e fraction]Ordered By: John Jang on 06-12-2025 Hematocrit (Bld) [Volume fraction] 39.6 % 37-47 [facility] Hemoglobin measurementOrdere d By: John Jang on 06-12-2025 Hemoglobin (Bld) [Mass/Vol] 12.4 g/dL 12.0-15.0 [facility] Immature granulocytes/100 WB C Auto (Bld)Ordered By: John Baron on 06-12-2025 Immature granulocytes/100 WBC (Bld) 0.500 % 0.0-0.9 [facility] Comment on above: IG% - Immature Granu locytes (promyelocytes, myelocytes and metamyelocytes) > 1% indicates that a LEFT SHIFT is Present. Iron measurement (mass/mass) Ordered By: John Jang on 06-12-2025 Iron (Unsp spec) [Mass/Mass] 52 ug/dL 50-170 [facility] Iron+Iron Binding Capacityon 06-12-2025 Iron [Mass/Vol] 52 ug/dL Normal 50-170 [facility] Comment on above: Performed By: #### L 500.4050, L503.6030, L504.2610, L501.2300, L100.0100, L501.5200, L503.6550, L503.0106 ####[facility] [address] [place], [address] UIBC 259 ug/dL Normal 228-428 [facility] Comment on above: Performed By: #### L 500.4050, L503.6030, L504.2610, L501.2300, L100.0100, L501.5200, L503.6550, L503.0106 ####[facility] [address] [place], [address] LDHon 06-12-2025 LDH 187 U/L Normal 84-246 [facility] Comment on above: Order Comment: 1 Result Comment: Hemo lysis present, Results??could be affected.??Hemolysis present, Results??could be affected.??Hemolysis present, Results??could be affected.??Hemolysis present, Results??could be affected.??Hemolysis present, Results??could be affected.?? AMENDED REPORT 06/12/251404 LDH previously reported as: 187 U/LHemolysis present, Results??could be affected.??Hemolysis present, Results??could be affected.?? Performed By: #### L 500.4050, L503.6030, L504.2610, L501.2300, L100.0100, L501.5200, L503.6550, L503.0106 ####[facility] [address] [place], [place], [address] Laboratory - Chemistry and C hemistry - challengeOrdered By: John Jang on 06-12-2025 AST [Catalytic activity/Vol] 19 U/L <32 [facility] Lactate dehydrogenase (LDH) measurementOrdered By: John Jang on 06-12-2025 LDH [Catalytic activity/Vol] 187 U/L 84-246 [facility] Comment on above: Hemolysis present, R esults could be affected. Hemolysis present, Results could be affected. Hemolysis present, Results could be affected. Hemolysis present, Results could be affected. Hemolysis present, Results could be affected. Previous reported result: 187 U/LEdited by: NICOLA on 06/12/25:1402 AMENDED REPORT 06/12/25 140 LDH previously reported as: 187 U/L Previous reported result: 187 U/LEdited by: NICOLA on 06/12/25:1405 AMENDED REPORT 06/12/251404 LDH previously reported as: 187 U/L Hemolysis present, Results could be affected. Hemolysis present, Results could be affected. MCV (mean corpuscular volume ) determinationOrdered By: John Jang on 06-12-2025 MCV (RBC) [Entitic vol] 92.7 fL 81-99 [facility] Magnesiumon 06-12-2025 Magnesium [Mass/Vol] 2.1 mg/dL Normal 1.5-2.2 [facility] Comment on above: Result Comment: AMENDED REPORT 06/12/251404 MG previously reported as: 2.0 mg/dL Performed By: #### L 500.4050, L503.6030, L504.2610, L501.2300, L100.0100, L501.5200, L503.6550, L503.0106 ####[facility] [address] [place], [address] Magnesium measurement (mass/ volume)Ordered By: John Jang on 06-12-2025 Magnesium (Unsp spec) [Mass/Vol] 2.1 mg/dL 1.5-2.2 [facility] Comment on above: Previous reported re sult: 2.1 mg/dLEdited by: NICOLA on 06/12/25:1402 AMENDED REPORT 06/12/25 140 MG previously reported as: 2.1 mg/dL Previous reported result: 2.0 mg/dLEdited by: NICOLA on 06/12/25:1405 AMENDED REPORT 06/12/251404 MG previously reported as: 2.0 mg/dL Mean corpuscular hemoglobin (MCH) determinationOrdered By: John Jang on 06-12-2025 MCH (RBC) [Entitic mass] 29.0 pg 27.0-32.0 [facility] Mean corpuscular hemoglobin concentration (MCHC) determinationOrdered By: John Jang on 06-12-2025 MCHC (RBC) [Mass/Vol] 31.3 g/dL Low 32-36 [facility] Mean platelet volume determi nationOrdered By: John Jang on 06-12-2025 Platelet mean volume (Bld) [Entitic vol] 8.2 fL 6.2-12.0 [facility] Monocyte percentageOrdered B y: John Jang on 06-12-2025 Monocytes/100 WBC (Bld) 8.3 % 0-10 [facility] Neutrophil percentageOrdered By: John Jang on 06-12-2025 Neutrophils/100 WBC (Bld) 49.8 % 47-70 [facility] No Panel InformationOrdered By: John Jang on 06-12-2025 Unsaturated Iron Binding Capacity 259 ug/dL 228-428 [facility] Nucleated red blood cell per centageOrdered By: John Jang on 06-12-2025 Nucleated RBC/100 WBC (Bld) [Ratio] 0 % 0-5 [facility] Oncology Visit Reporton 05-29 Oncology Visit Report Normal [facility] Phosphoruson 06-12-2025 Phosphate [Mass/Vol] 4.0 mg/dL Normal 2.7-4.5 [facility] Comment on above: Result Comment: AMENDED REPORT 06/12/25 1407 PHOS previously reported as: 3.9 mg/dL Performed By: #### L 500.4050, L503.6030, L504.2610, L501.2300, L100.0100, L501.5200, L503.6550, L503.0106 ####[facility] [id number] [place], [address] Platelet countOrdered By: Natalya Jang on 06-12-2025 Platelets (Bld) [#/Vol] 349 10*3/uL 150-450 [facility] Potassium measurement (mass/ volume)Ordered By: John Jang on 06-12-2025 Potassium (Unsp spec) [Mass/Vol] 4.0 mmol/L 3.3-5.1 [facility] RBC Auto (Bld) [#/Vol]Ordere d By: John Jang on 06-12-2025 RBC (Bld) [#/Vol] 4.27 10*6/uL 4.2-5.4 [facility] Serum creatinine measurement (mass/volume)Ordered By: John Jang on 06-12-2025 Creatinine [Mass/Vol] 0.72 mg/dL 0.70-1.20 [facility] Comment on above: Previous reported re sult: 0.72 mg/dLEdited by: AUTOINS on 06/12/25:2867 AMENDED REPORT 06/12/25 1357 CREAT,SERUM previously reported as: 0.72 mg/dL Previous reported result: 0.71 mg/dLEdited by: NICOLA on 06/12/25:1404 AMENDED REPORT 06/12/25 1404 CREAT,SERUM previously reported as: 0.71 mg/dL Serum globulin measurementOr dered By: John Jang on 06-12-2025 Globulin (S) [Mass/Vol] 3.7 g/dL 2.2-4.2 [facility] Comment on above: Previous reported re sult: 3.7 g/dLEdited by: NICOLA on 06/12/25:1357 AMENDED REPORT 06/12/25 135 GLOB previously reported as: 3.7 g/dL Previous reported result: 3.6 g/dLEdited by: NICOLA on 06/12/25:1404 AMENDED REPORT 06/12/25 1404 GLOB previously reported as: 3.6 g/dL Serum glucose measurement (m ass/volume)Ordered By: John Jang on 06-12-2025 Glucose [Mass/Vol] 91 mg/dL 70-99 [facility] Comment on above: Previous reported re sult: 91 mg/dLEdited by: NICOLA on 06/12/25:1357 AMENDED REPORT 06/12/25 135 GLU previously reported as: 91 mg/dL Previous reported result: 90 mg/dLEdited by: NICOLA on 06/12/25:1404 AMENDED REPORT 06/12/25 1404 GLU previously reported as: 90 mg/dL Serum or plasma alanine han otransferase (ALT) measurementOrdered By: John Jang on 06-12-2025 ALT [Catalytic activity/Vol] 10 U/L <35 [facility] Serum or plasma albumin zara urement (mass/volume)Ordered By: John Jang on 06-12-2025 Albumin [Mass/Vol] 4.3 g/dL 3.4-4.8 [facility] Comment on above: Previous reported re sult: 4.3 g/dLEdited by: NICOLA on 06/12/25:1357 AMENDED REPORT 06/12/25 135 ALB previously reported as: 4.3 g/dL Previous reported result: 4.2 g/dLEdited by: AUTOINS on 06/12/25:1404 AMENDED REPORT 06/12/251403 ALB previously reported as: 4.2 g/dL Serum or plasma albumin/glob ulin mass ratioOrdered By: John Jang on 06-12-2025 Albumin/Globulin [Mass ratio] 1.1 {ratio} 0.9-2.4 [facility] Comment on above: Previous reported re sult: 1.1 RATIOEdited by: AUTOINS on 06/12/25:1357 AMENDED REPORT 06/12/251356 A/G previously reported as: 1.1 RATIO Previous reported result: 1.2 RATIOEdited by: AUTOINS on 06/12/25:1404 AMENDED REPORT 06/12/251403 A/G previously reported as: 1.2 RATIO Serum or plasma alkaline alvarez sphatase measurementOrdered By: John Jang on 06-12-2025 ALP [Catalytic activity/Vol] 90 U/L 35-104 [facility] Comment on above: Previous reported re sult: 90 U/LEdited by: NICOLA on 06/12/25:1357 AMENDED REPORT 06/12/25 135 ALK P previously reported as: 90 U/L Previous reported result: 92 U/LEdited by: NICOLA on 06/12/25:1404 AMENDED REPORT 06/12/25 140 ALK P previously reported as: 92 U/L Serum or plasma calcium zara urement (mass/volume)Ordered By: John Jang on 06-12-2025 Calcium [Mass/Vol] 10.0 mg/dL 7.6-11.0 [facility] Comment on above: Previous reported re sult: 10.0 mg/dLEdited by: AUTOINS on 06/12/25:1357 AMENDED REPORT 06/12/25 1357 CA previously reported as: 10.0 mg/dL Previous reported result: 9.9 mg/dLEdited by: AUTOINS on 06/12/25:1404 AMENDED REPORT 06/12/25 140 CA previously reported as: 9.9 mg/dL Serum or plasma ferritin ryan surement (mass/volume)Ordered By: John Jang on 06-12-2025 Ferritin [Mass/Vol] 110 ng/mL 22-378 [facility] Comment on above: Previous reported re sult: 94 ng/mLEdited by: NICOLA on 06/12/25:1357 AMENDED REPORT 06/12/25 1357 FERRITIN previously reported as: 94 ng/mL Serum or plasma iron saturat ion measurement (mass fraction)Ordered By: John Jang on 06-12-2025 Iron saturation [Mass fraction] 16.7 % 13-59 [facility] Comment on above: Previous reported re sult: 16.6 %Edited by: NICOLA on 06/12/25:1333 AMENDED REPORT 06/12/25 1333 IRON SATURATION previously reported as: 16.6 % Serum or plasma urea nitroge n measurement (mass/volume)Ordered By: John Jang on 06-12-2025 Urea nitrogen [Mass/Vol] 23 mg/dL High 4-19 [facility] Sodium levelOrdered By: Maycol Jang on 06-12-2025 Sodium [Moles/Vol] 136 mmol/L 133-145 [facility] Total proteinOrdered By: Arian Jang on 06-12-2025 Protein [Mass/Vol] 8.0 g/dL 5.9-8.4 [facility] Comment on above: Previous reported re sult: 8.0 g/dLEdited by: NICOLA on 06/12/25:1357 AMENDED REPORT 06/12/25 1357 T PROT previously reported as: 8.0 g/dL Previous reported result: 7.9 g/dLEdited by: NICOLA on 06/12/25:1404 AMENDED REPORT 06/12/25 1404 T PROT previously reported as: 7.9 g/dL Vitamin B12on 06-12-2025 Cobalamin (Vitamin B12) [Mass/Vol] 600 pg/mL Normal 180-914 [facility] Comment on above: Result Comment: AMENDED REPORT 06/12/25 1404 Vitamin B12 previously reported as: 596 pg/mL Performed By: #### L 500.4050, L503.6030, L504.2610, L501.2300, L100.0100, L501.5200, L503.6550, L503.0106 ####[facility] [address] [place], [address] Vitamin B12 ser/plasOrdered By: John Jang on 06-12-2025 Cobalamin (Vitamin B12) [Mass/Vol] 600 pg/mL 180-914 [facility] Comment on above: Previous reported re sult: 596 pg/mLEdited by: AUTOINS on 06/12/25:1404 AMENDED REPORT 06/12/25 1404 Vitamin B12 previously reported as: 596 pg/mL White blood cell (WBC) count Ordered By: John Jang on 06-12-2025 WBC (Bld) [#/Vol] 9.7 10*3/uL 4.4-11.0 [facility] Laboratory - Chemistry and C hemistry - challengeOrdered By: Darya Abreu on 05-22-2025 Bilirubin Ql (U) Negative [facility] Glucose Ql (U) Negative [facility] Ketones Ql (U) Negative [facility] pH (U) 6.5 [pH] [facility] Specific gravity (U) [Rel density] 1.005 [facility] Urobilinogen (U) [Mass/Vol] 0.6785815 mg/dL [facility] Laboratory - Hematology and Cell countsOrdered By: Darya Abreu on 05-22-2025 Hemoglobin Ql (U) Negative [facility] Laboratory - UrinalysisOrder ed By: Darya Abreu on 05-22-2025 Nitrite Ql (U) Negative [facility] Protein Ql (U) Negative [facility] No Panel InformationOrdered By: Darya Abreu on 05-22-2025 Urine Leukocytes Positive [facility] Urine Non-Hemolyzed Blood Negative [facility] Office Visit Reporton 2024 Office Visit Report Normal [facility] 12 Lead EKGon 05-05-2025 12 Lead EKG Normal [facility] Absolute lymphocyte countOrd ered By: Carolyne Leigh on 05-05-2025 Lymphocytes Auto (Unsp spec) [#/Vol] 2.90 10*3/uL 0.83-4.51 [facility] Absolute neutrophil countOrd ered By: Carolyne Leigh on 05-05-2025 Neutrophils (Bld) [#/Vol] 6.0 10*3/uL 2.0-7.7 [facility] Anion gap in Serum or Plasma Ordered By: Carolyne Leigh on 05-05-2025 Anion gap [Moles/Vol] 13 mmol/L 5-15 [facility] Automated lymphocyte count a s percentage of total leukocytesOrdered By: Carolyne Leigh on 05-05-2025 Lymphocytes/100 WBC Auto (Unsp spec) 29.2 % - [facility] BUN/creatinine ratioOrdered By: Carolyne Leigh on 05-05-2025 Urea nitrogen/Creatinine [Mass ratio] 20.5 mg/mg High 10- [facility] Basic Metabolic Profile (BMP )on 05-05-2025 BUN/CRE 20.5 RATIO High 10- [facility] Comment on above: Performed By: #### L 500.2500, L501.2450, L500.3400 ####[facility] [address] [place], [address] Calcium [Mass/Vol] 9.7 mg/dL Normal 7.6-11.0 [facility] Comment on above: Performed By: #### L 500.2500, L501.2450, L500.3400 ####[facility] [address] [place], [address] Chloride [Moles/Vol] 100 mmol/L Normal 98-108 [facility] Comment on above: Performed By: #### L 500.2500, L501.2450, L500.3400 ####[facility] [address] [place], [address] CO2 [Moles/Vol] 19.7 mmol/L Low 21.0-32.0 [facility] Comment on above: Performed By: #### L 500.2500, L501.2450, L500.3400 ####[facility] [address] [place], [address] Creatinine [Mass/Vol] 0.59 mg/dL Low 0.70-1.20 [facility] Comment on above: Performed By: #### L 500.2500, L501.2450, L500.3400 ####[facility] [address] [place], [address] ECRCL 76.85 ml/min Normal 50-250 [facility] Comment on above: Performed By: #### L 500.2500, L501.2450, L500.3400 ####[facility] [address] [place], [address] GAP 13 Normal 5-15 [facility] Comment on above: Performed By: #### L 500.2500, L501.2450, L500.3400 ####[facility] [address] [place], [address] GFR/1.73 sq M.predicted among non-blacks MDRD (S/P/Bld) [Vol rate/Area] 97 mL/min/{1.73_m2} Normal >60 [facility] Comment on above: Result Comment: mL/m in/1.73m2 CKD-EPI Creatinine Equation (2020) Performed By: #### L 500.2500, L501.2450, L500.3400 ####[facility] [address] [place], [address] Glucose [Mass/Vol] 81 mg/dL Normal 70-99 [facility] Comment on above: Performed By: #### L 500.2500, L501.2450, L500.3400 ####[facility] [address] [place], [address] Potassium [Moles/Vol] 4.8 mmol/L Normal 3.3-5.1 [facility] Comment on above: Performed By: #### L 500.2500, L501.2450, L500.3400 ####[facility] [address] [place], [address] Sodium [Moles/Vol] 133 mmol/L Normal 133-145 [facility] Comment on above: Performed By: #### L 500.2500, L501.2450, L500.3400 ####[facility] [address] [place], [address] Urea nitrogen [Mass/Vol] 12 mg/dL Normal 4-19 [facility] Comment on above: Performed By: #### L 500.2500, L501.2450, L500.3400 ####[facility] [address] [place], [address] Basophil percentageOrdered B y: Carolyne Leigh on 05-05-2025 Basophils/100 WBC (Bld) 0.1 % 0-1 [facility] Bilirubin directOrdered By: Carolyne Leigh on 05-05-2025 Bilirubin.direct [Mass/Vol] mg/dL 0.00-0.30 [facility] Bilirubin, totalOrdered By: Carolyne Leigh on 05-05-2025 Bilirubin [Mass/Vol] 0.19 mg/dL 0.00-1.30 [facility] CBC W/Diff, Automatedon Absolute Lymph 2.90 X10 3/uL Normal 0.83-4.51 [facility] Comment on above: Performed By: #### L 501.4021, L100.0100 ####[facility] [address] [place], [address] Absolute Neut 6.0 X10 3/uL Normal 2.0-7.7 [facility] Comment on above: Performed By: #### L 501.4021, L100.0100 ####[facility] [address] [place], [address] Basophils/100 WBC (Bld) 0.1 % Normal 0-1 [facility] Comment on above: Performed By: #### L 501.4021, L100.0100 ####[facility] [address] [place], [address] Eosinophils/100 WBC (Bld) 0.9 % Normal 0-5 [facility] Comment on above: Performed By: #### L 501.4021, L100.0100 ####[facility] [address] [place], [address] Erythrocyte distribution width (RBC) [Ratio] 19.6 % High 11.6-14.6 [facility] Comment on above: Performed By: #### L 501.4021, L100.0100 ####[facility] [address] [place], [address] Hematocrit (Bld) [Volume fraction] 38.7 % Normal 37-47 [facility] Comment on above: Performed By: #### L 501.4021, L100.0100 ####[facility] [address] [place], [address] Hemoglobin (Bld) [Mass/Vol] 12.0 g/dL Normal 12.0-15.0 [facility] Comment on above: Performed By: #### L 501.4021, L100.0100 ####[facility] [address] [place], [address] IG% 0.500 Normal 0.0-0.9 [facility] Comment on above: Result Comment: IG% - Immature Granulocytes (promyelocytes, myelocytes andmetamyelocytes) > 1% indicates that a LEFT SHIFT is Present. Performed By: #### L 501.4021, L100.0100 ####[facility] [address] [place], [address] Lymphocytes/100 WBC (Bld) 29.2 % Normal 19-41 [facility] Comment on above: Performed By: #### L 501.4021, L100.0100 ####[facility] [address] [place], [address] MCH (RBC) [Entitic mass] 27.6 pg Normal 27.0-32.0 [facility] Comment on above: Performed By: #### L 501.4021, L100.0100 ####[facility] [address] [place], [address] MCHC (RBC) [Mass/Vol] 31.0 g/dL Low 32-36 [facility] Comment on above: Performed By: #### L 501.4021, L100.0100 ####[facility] [address] [place], [address] MCV (RBC) [Entitic vol] 89.2 fL Normal 81-99 [facility] Comment on above: Performed By: #### L 501.4021, L100.0100 ####[facility] [address] [place], [address] Monocytes/100 WBC (Bld) 8.7 % Normal 0-10 [facility] Comment on above: Performed By: #### L 501.4021, L100.0100 ####[facility] [address] [place], [address] Neutrophils/100 WBC (Bld) 60.6 % Normal 47-70 [facility] Comment on above: Performed By: #### L 501.4021, L100.0100 ####[facility] [address] [place], [address] Nucleated RBC (Bld) [#/Vol] 0 10*3/uL Normal 0-5 [facility] Comment on above: Performed By: #### L 501.4021, L100.0100 ####[facility] [address] [place], [address] Platelet mean volume (Bld) [Entitic vol] 8.7 fL Normal 6.2-12.0 [facility] Comment on above: Performed By: #### L 501.4021, L100.0100 ####[facility] [address] [place], [address] Platelets (Bld) [#/Vol] 305 10*3/uL Normal 150-450 [facility] Comment on above: Performed By: #### L 501.4021, L100.0100 ####[facility] [address] [place], [address] RBC (Bld) [#/Vol] 4.34 10*6/uL Normal 4.2-5.4 [facility] Comment on above: Performed By: #### L 501.4021, L100.0100 ####[facility] [address] [place], [address] RDW SD 64.0 fl High 35.1-43.9 [facility] Comment on above: Performed By: #### L 501.4021, L100.0100 ####[facility] [address] [place], [address] WBC (Bld) [#/Vol] 9.9 10*3/uL Normal 4.4-11.0 [facility] Comment on above: Performed By: #### L 501.4021, L100.0100 ####[facility] [address] [place], [address] Carbon dioxide, total [Moles /volume] in Central venous bloodOrdered By: Carolyne Leigh on 05-05-2025 CO2 [Moles/Vol] 19.7 mmol/L Low 21.0-32.0 [facility] Chloride assayOrdered By: Leodan Leigh on 05-05-2025 Chloride [Moles/Vol] 100 mmol/L 98-108 [facility] Emergency Department Summary on 05-05-2025 Emergency Department Summary Normal [facility] Eosinophil percentageOrdered By: Carolyne Leigh on 05-05-2025 Eosinophils/100 WBC (Bld) 0.9 % 0-5 [facility] Erythrocyte distribution wid th ratioOrdered By: Carolyne Leigh on 05-05-2025 Erythrocyte distribution width (RBC) [Ratio] 19.6 % High 11.6-14.6 [facility] Erythrocyte distribution wid th standard deviationOrdered By: Carolyne Leigh on 05-05-2025 Erythrocyte distribution width (RBC) [Ratio] 64.0 fl High 35.1-43.9 [facility] Glomerular filtration rate ( GFR) estimation/1.73 sq m using serum, plasma, or whole bOrdered By: Carolyne Leigh on 05-05-2025 GFR/1.73 sq M.predicted among non-blacks MDRD (S/P/Bld) [Vol rate/Area] 97 mL/min/{1.73_m2} >60 [facility] Comment on above: mL/min/1.73m2 CKD-EP I Creatinine Equation (2020) Hematocrit Auto (Bld) [Volum e fraction]Ordered By: Carolyne Leigh on 05-05-2025 Hematocrit (Bld) [Volume fraction] 38.7 % 37-47 [facility] Hemoglobin measurementOrdere d By: Carolyne Leigh on 05-05-2025 Hemoglobin (Bld) [Mass/Vol] 12.0 g/dL 12.0-15.0 [facility] Immature granulocytes/100 WB C Auto (Bld)Ordered By: Carolyne Leigh on 05-05-2025 Immature granulocytes/100 WBC (Bld) 0.500 % 0.0-0.9 [facility] Comment on above: IG% - Immature Granu locytes (promyelocytes, myelocytes and metamyelocytes) > 1% indicates that a LEFT SHIFT is Present. L501.4021on 05-05-2025 Trop T High Sen 10 ng/L Normal <=14 [facility] Comment on above: Performed By: #### L 501.4021, L100.0100 ####[facility] [address] [place], [place], [phone] Laboratory - Chemistry and C hemistry - challengeOrdered By: Carolyne Leigh on 05-05-2025 AST [Catalytic activity/Vol] 21 U/L <32 [facility] Lipaseon 05-05-2025 Lipase [Catalytic activity/Vol] 18 U/L Normal 13-75 [facility] Comment on above: Result Comment: Graciela cohen note:LIPASE revised reference range effective 22.New Lipase methodology. Expected to produce lower valuesthan the previous assay method.NEW Reference Range: 13 - 75 U/L Performed By: #### L 500.2500, L501.2450, L500.3400 ####[facility] [address] [place], [address] Lipase measurementOrdered By : Carolyne Leigh on 05-05-2025 Lipase [Catalytic activity/Vol] 18 U/L 13-75 [facility] Comment on above: Please note:LIPASE r evised reference range effective 22. New Lipase methodology. Expected to produce lower values than the previous assay method. NEW Reference Range: 13 - 75 U/L Liver Profileon 05-05-2025 Albumin [Mass/Vol] 4.1 g/dL Normal 3.4-4.8 [facility] Comment on above: Performed By: #### L 500.2500, L501.2450, L500.3400 ####[facility] [address] [place], [address] ALK PHOS 82 U/L Normal 35-104 [facility] Comment on above: Performed By: #### L 500.2500, L501.2450, L500.3400 ####[facility] [address] [place], [address] ALT [Catalytic activity/Vol] 10 U/L Normal <=34 [facility] Comment on above: Performed By: #### L 500.2500, L501.2450, L500.3400 ####[facility] [address] [place], [address] AST [Catalytic activity/Vol] 21 U/L Normal <=31 [facility] Comment on above: Performed By: #### L 500.2500, L501.2450, L500.3400 ####[facility] [address] [place], [address] Bilirubin [Mass/Vol] 0.19 mg/dL Normal 0.00-1.30 [facility] Comment on above: Performed By: #### L 500.2500, L501.2450, L500.3400 ####[facility] [address] [place], [address] D BILI < 0.08 Normal 0.00-0.30 [facility] Comment on above: Performed By: #### L 500.2500, L501.2450, L500.3400 ####[facility] [address] [place], [address] Globulin (S) [Mass/Vol] 3.8 g/dL Normal 2.2-4.2 [facility] Comment on above: Performed By: #### L 500.2500, L501.2450, L500.3400 ####[facility] [address] [place], [address] T PROT 7.9 g/dL Normal 5.9-8.4 [facility] Comment on above: Performed By: #### L 500.2500, L501.2450, L500.3400 ####[facility] [address] [place], [address] MCV (mean corpuscular volume ) determinationOrdered By: Carolyne Leigh on 05-05-2025 MCV (RBC) [Entitic vol] 89.2 fL 81-99 [facility] Mean corpuscular hemoglobin (MCH) determinationOrdered By: Carolyne Leigh on 05-05-2025 MCH (RBC) [Entitic mass] 27.6 pg 27.0-32.0 [facility] Mean corpuscular hemoglobin concentration (MCHC) determinationOrdered By: Carolyne Leigh on 05-05-2025 MCHC (RBC) [Mass/Vol] 31.0 g/dL Low 32-36 [facility] Mean platelet volume determi nationOrdered By: Carolyne Leigh on 05-05-2025 Platelet mean volume (Bld) [Entitic vol] 8.7 fL 6.2-12.0 [facility] Monocyte percentageOrdered B y: Carolyne Leigh on 05-05-2025 Monocytes/100 WBC (Bld) 8.7 % 0-10 [facility] Neutrophil percentageOrdered By: Carolyne Leigh on 05-05-2025 Neutrophils/100 WBC (Bld) 60.6 % 47-70 [facility] Nucleated red blood cell per centageOrdered By: Carolyne Leigh on 05-05-2025 Nucleated RBC/100 WBC (Bld) [Ratio] 0 % 0-5 [facility] Platelet countOrdered By: Leodan Leigh on 05-05-2025 Platelets (Bld) [#/Vol] 305 10*3/uL 150-450 [facility] Potassium measurement (mass/ volume)Ordered By: Carolyne Leigh on 05-05-2025 Potassium (Unsp spec) [Mass/Vol] 4.8 mmol/L 3.3-5.1 [facility] RBC Auto (Bld) [#/Vol]Ordere d By: Carolyne Leigh on 05-05-2025 RBC (Bld) [#/Vol] 4.34 10*6/uL 4.2-5.4 [facility] Ribs Uni Min 3V w/PA Cheston 05-05-2025 Ribs Uni Min 3V w/PA Chest Normal [facility] Serum creatinine measurement (mass/volume)Ordered By: Carolyne Leigh on 05-05-2025 Creatinine [Mass/Vol] 0.59 mg/dL Low 0.70-1.20 [facility] Serum globulin measurementOr dered By: Carolyne Leigh on 05-05-2025 Globulin (S) [Mass/Vol] 3.8 g/dL 2.2-4.2 [facility] Serum glucose measurement (m ass/volume)Ordered By: Carolyne Leigh on 05-05-2025 Glucose [Mass/Vol] 81 mg/dL 70-99 [facility] Serum or plasma alanine han otransferase (ALT) measurementOrdered By: Carolyne Leigh on 05-05-2025 ALT [Catalytic activity/Vol] 10 U/L <35 [facility] Serum or plasma albumin zara urement (mass/volume)Ordered By: Carolyne Leigh on 05-05-2025 Albumin [Mass/Vol] 4.1 g/dL 3.4-4.8 [facility] Serum or plasma alkaline alvarez sphatase measurementOrdered By: Carolyne Leigh on 05-05-2025 ALP [Catalytic activity/Vol] 82 U/L 35-104 [facility] Serum or plasma calcium zara urement (mass/volume)Ordered By: Carolyne Leigh on 05-05-2025 Calcium [Mass/Vol] 9.7 mg/dL 7.6-11.0 [facility] Serum or plasma urea nitroge n measurement (mass/volume)Ordered By: Carolyne Leigh on 05-05-2025 Urea nitrogen [Mass/Vol] 12 mg/dL 4-19 [facility] Sodium levelOrdered By: Rachel Leigh on 05-05-2025 Sodium [Moles/Vol] 133 mmol/L 133-145 [facility] Total proteinOrdered By: Monse Leigh on 05-05-2025 Protein [Mass/Vol] 7.9 g/dL 5.9-8.4 [facility] Troponin T HS 2 HRon 025 Trop T High Sen 9 ng/L Normal <=14 [facility] Comment on above: Result Comment: Hemo lysis present, Results??could be affected.?? Performed By: #### L 499.0042 ####[facility] [address] [place], [place], [id number] Troponin T HS 4 HRon 025 Trop T High Sen Normal <=14 [facility] Comment on above: Result Comment: Canc elled via OM: Order cancelled - Patient discharged Performed By: #### L 499.0043 ####[facility] [address] [place], [address] Troponin T.cardiac [Mass/vol ume] in Serum or Plasma by High sensitivity methodOrdered By: Carolyne Leigh on 05-05-2025 Troponin T.cardiac High sensitivity method [Mass/Vol] 9 ng/L <14 [facility] Comment on above: Hemolysis present, R esults could be affected. Troponin T.cardiac High sensitivity method [Mass/Vol] 10 ng/L <14 [facility] White blood cell (WBC) count Ordered By: Carolyne Leigh on 05-05-2025 WBC (Bld) [#/Vol] 9.9 10*3/uL 4.4-11.0 [facility] Gastroenterology Visit Repor ton 03-27-2025 Gastroenterology Visit Report Normal [facility] Celiac AB,Comprehensiveon ANTIGLIADIN IGA 3 units Normal 0-19 [facility] Comment on above: Result Comment: Nega tive 0 - 19 Weak Positive 20 - 30 Moderate to Strong Positive >30 Performed By: #### L 100.9950, L100.0100, L3410.2350, L3100.1850, L503.6550, L3100.1350, L501.2300, L501.5200, L503.0106, L500.4050, L504.2610, L101.9900, L501.6710, L501.1400, L503.6030 ####[facility] [address] [place], [place], [phone] ANTIGLIADIN IGG 2 units Normal 0-19 [facility] Comment on above: Result Comment: Nega tive 0 - 19 Weak Positive 20 - 30 Moderate to Strong Positive >30 Performed By: #### L 100.9950, L100.0100, L3410.2350, L3100.1850, L503.6550, L3100.1350, L501.2300, L501.5200, L503.0106, L500.4050, L504.2610, L101.9900, L501.6710, L501.1400, L503.6030 ####[facility] [address] [place], [address] ENDOMYSIAL IGA Negative Normal Negative [facility] Comment on above: Performed By: #### L 100.9950, L100.0100, L3410.2350, L3100.1850, L503.6550, L3100.1350, L501.2300, L501.5200, L503.0106, L500.4050, L504.2610, L101.9900, L501.6710, L501.1400, L503.6030 ####[facility] [address] [place], [address] IMMUNOGLOB A QN 91 mg/dL Normal 87-352 [facility] Comment on above: Performed By: #### L 100.9950, L100.0100, L3410.2350, L3100.1850, L503.6550, L3100.1350, L501.2300, L501.5200, L503.0106, L500.4050, L504.2610, L101.9900, L501.6710, L501.1400, L503.6030 ####[facility] [address] [place], [address] tTG IGA <2 Normal 0-3 [facility] Comment on above: Result Comment: Nega tive 0 - 3 Weak Positive 4 - 10 Positive >10 Tissue Transglutaminase (tTG) has been identified as the endomysial antigen. Studies have demonstr- ated that endomysial IgA antibodies have over 99% specificity for gluten sensitive enteropathy. Performed By: #### L 100.9950, L100.0100, L3410.2350, L3100.1850, L503.6550, L3100.1350, L501.2300, L501.5200, L503.0106, L500.4050, L504.2610, L101.9900, L501.6710, L501.1400, L503.6030 ####[facility] [address] [place], [place], [id number] tTG IGG <2 Normal 0-5 [facility] Comment on above: Result Comment: Nega tive 0 - 5 Weak Positive 6 - 9 Positive >9 Performed By: #### L 100.9950, L100.0100, L3410.2350, L3100.1850, L503.6550, L3100.1350, L501.2300, L501.5200, L503.0106, L500.4050, L504.2610, L101.9900, L501.6710, L501.1400, L503.6030 ####[facility] [address] [place], [place], [phone] Erythropoietinon 03-22-2025 ERYTHROPOIETIN 14.3 mIU/mL Normal 2.6-18.5 [facility] Comment on above: Result Comment: thesweetlink DxI 800 Immunoassay SystemValues obtained with different assay methods or kits cannotbe used interchangeably. Results cannot be interpreted asabsolute evidence of the presence or absence of malignantdisease. Performed By: #### L 100.9950, L100.0100, L3410.2350, L3100.1850, L503.6550, L3100.1350, L501.2300, L501.5200, L503.0106, L500.4050, L504.2610, L101.9900, L501.6710, L501.1400, L503.6030 ####[facility] [address] [place], [place], [phone] Haptoglobinon 03-22-2025 HAPTOGLOBIN 231 mg/dL Normal 37-355 [facility] Comment on above: Result Comment: Perf ormed at: [facility] [address] [id number] Director: Meliton Browning PhD, Phone: [phone] Performed By: #### L 100.9950, L100.0100, L3410.2350, L3100.1850, L503.6550, L3100.1350, L501.2300, L501.5200, L503.0106, L500.4050, L504.2610, L101.9900, L501.6710, L501.1400, L503.6030 ####[facility] [address] [place], [place], [phone] Absolute lymphocyte countOrd ered By: John Suhail on 03-20-2025 Lymphocytes Auto (Unsp spec) [#/Vol] 2.78 10*3/uL 0.83-4.51 [facility] Absolute neutrophil countOrd ered By: [facility] on 03-20-2025 Neutrophils (Bld) [#/Vol] 4.2 10*3/uL 2.0-7.7 [facility] Anion gap in Serum or Plasma Ordered By: John Jang on 03-20-2025 Anion gap [Moles/Vol] 9 mmol/L 5-15 [facility] Automated lymphocyte count a s percentage of total leukocytesOrdered By: [facility] on 03-20-2025 Lymphocytes/100 WBC Auto (Unsp spec) 35.1 % - [facility] BUN/creatinine ratioOrdered By: [facility] on 03-20-2025 Urea nitrogen/Creatinine [Mass ratio] 16.0 mg/mg 10-20 [facility] Basophil percentageOrdered B y: John [facility] on 03-20-2025 Basophils/100 WBC (Bld) 0.3 % 0-1 [facility] Bilirubin, totalOrdered By: [facility] on 03-20-2025 Bilirubin [Mass/Vol] 0.17 mg/dL 0.00-1.30 [facility] CBC W/Diff, Automatedon 02-27 Anisocytosis Ql (Bld) 1+ Normal [facility] Comment on above: Performed By: #### L 100.9950, L100.0100, L3410.2350, L3100.1850, L503.6550, L3100.1350, L501.2300, L501.5200, L503.0106, L500.4050, L504.2610, L101.9900, L501.6710, L501.1400, L503.6030 ####[facility] [address] [place], [place], [phone](250) CRPon 03-20-2025 C-REACTIVE PROT 9.98 mg/L High 0.0-3.0 [facility] Comment on above: Performed By: #### L 100.9950, L100.0100, L3410.2350, L3100.1850, L503.6550, L3100.1350, L501.2300, L501.5200, L503.0106, L500.4050, L504.2610, L101.9900, L501.6710, L501.1400, L503.6030 ####[facility] [address], [address] Carbon dioxide, total [Moles /volume] in Central venous bloodOrdered By: John Jang on 03-20-2025 CO2 [Moles/Vol] 23.5 mmol/L 21.0-32.0 [facility] Chloride assayOrdered By: Natalya Jang on 03-20-2025 Chloride [Moles/Vol] 100 mmol/L 98-108 [facility] Comprehensive Metabolic Prof ilon 03-20-2025 Albumin [Mass/Vol] 3.9 g/dL Normal 3.4-4.8 [facility] Comment on above: Performed By: #### L 100.9950, L100.0100, L3410.2350, L3100.1850, L503.6550, L3100.1350, L501.2300, L501.5200, L503.0106, L500.4050, L504.2610, L101.9900, L501.6710, L501.1400, L503.6030 ####[facility] [address] [place], [place], [phone] Albumin/Globulin [Mass ratio] 1.1 {ratio} Normal 0.9-2.4 [facility] Comment on above: Performed By: #### L 100.9950, L100.0100, L3410.2350, L3100.1850, L503.6550, L3100.1350, L501.2300, L501.5200, L503.0106, L500.4050, L504.2610, L101.9900, L501.6710, L501.1400, L503.6030 ####[facility] [address] [place], [place], [phone] ALK PHOS 86 U/L Normal 35-104 [facility] Comment on above: Performed By: #### L 100.9950, L100.0100, L3410.2350, L3100.1850, L503.6550, L3100.1350, L501.2300, L501.5200, L503.0106, L500.4050, L504.2610, L101.9900, L501.6710, L501.1400, L503.6030 ####[facility] [address] [place], [address] ALT [Catalytic activity/Vol] 9 U/L Normal <=34 [facility] Comment on above: Performed By: #### L 100.9950, L100.0100, L3410.2350, L3100.1850, L503.6550, L3100.1350, L501.2300, L501.5200, L503.0106, L500.4050, L504.2610, L101.9900, L501.6710, L501.1400, L503.6030 ####[facility] [address] [place], [address] AST [Catalytic activity/Vol] 18 U/L Normal <=31 [facility] Comment on above: Performed By: #### L 100.9950, L100.0100, L3410.2350, L3100.1850, L503.6550, L3100.1350, L501.2300, L501.5200, L503.0106, L500.4050, L504.2610, L101.9900, L501.6710, L501.1400, L503.6030 ####[facility] [address] [place], [place], [phone](187) Bilirubin [Mass/Vol] 0.17 mg/dL Normal 0.00-1.30 [facility] Comment on above: Performed By: #### L 100.9950, L100.0100, L3410.2350, L3100.1850, L503.6550, L3100.1350, L501.2300, L501.5200, L503.0106, L500.4050, L504.2610, L101.9900, L501.6710, L501.1400, L503.6030 ####[facility] [address] [place], [place], [phone]) BUN/CRE 16.0 RATIO Normal 10-20 [facility] Comment on above: Performed By: #### L 100.9950, L100.0100, L3410.2350, L3100.1850, L503.6550, L3100.1350, L501.2300, L501.5200, L503.0106, L500.4050, L504.2610, L101.9900, L501.6710, L501.1400, L503.6030 ####[facility] [address] [place], [place], [phone](282) Calcium [Mass/Vol] 9.2 mg/dL Normal 7.6-11.0 [facility] Comment on above: Performed By: #### L 100.9950, L100.0100, L3410.2350, L3100.1850, L503.6550, L3100.1350, L501.2300, L501.5200, L503.0106, L500.4050, L504.2610, L101.9900, L501.6710, L501.1400, L503.6030 ####[facility] [address] [place], [place], [phone](096) Chloride [Moles/Vol] 100 mmol/L Normal 98-108 [facility] Comment on above: Performed By: #### L 100.9950, L100.0100, L3410.2350, L3100.1850, L503.6550, L3100.1350, L501.2300, L501.5200, L503.0106, L500.4050, L504.2610, L101.9900, L501.6710, L501.1400, L503.6030 ####[facility] [address] [place], [place], [phone](094) CO2 [Moles/Vol] 23.5 mmol/L Normal 21.0-32.0 [facility] Comment on above: Performed By: #### L 100.9950, L100.0100, L3410.2350, L3100.1850, L503.6550, L3100.1350, L501.2300, L501.5200, L503.0106, L500.4050, L504.2610, L101.9900, L501.6710, L501.1400, L503.6030 ####[facility] [address] [place], [place], [phone] Creatinine [Mass/Vol] 0.76 mg/dL Normal 0.70-1.20 [facility] Comment on above: Performed By: #### L 100.9950, L100.0100, L3410.2350, L3100.1850, L503.6550, L3100.1350, L501.2300, L501.5200, L503.0106, L500.4050, L504.2610, L101.9900, L501.6710, L501.1400, L503.6030 ####[facility] [address] [place], [address] ECRCL 75.61 ml/min Normal 50-250 [facility] Comment on above: Performed By: #### L 100.9950, L100.0100, L3410.2350, L3100.1850, L503.6550, L3100.1350, L501.2300, L501.5200, L503.0106, L500.4050, L504.2610, L101.9900, L501.6710, L501.1400, L503.6030 ####[facility] [address] [place], [place], [phone] GAP 9 Normal 5-15 [facility] Comment on above: Performed By: #### L 100.9950, L100.0100, L3410.2350, L3100.1850, L503.6550, L3100.1350, L501.2300, L501.5200, L503.0106, L500.4050, L504.2610, L101.9900, L501.6710, L501.1400, L503.6030 ####[facility] [address] [place], [address] GFR/1.73 sq M.predicted among non-blacks MDRD (S/P/Bld) [Vol rate/Area] 85 mL/min/{1.73_m2} Normal >60 [facility] Comment on above: Result Comment: mL/m in/1.73m2 CKD-EPI Creatinine Equation (2020) Performed By: #### L 100.9950, L100.0100, L3410.2350, L3100.1850, L503.6550, L3100.1350, L501.2300, L501.5200, L503.0106, L500.4050, L504.2610, L101.9900, L501.6710, L501.1400, L503.6030 ####[facility] [address] [place], [place], [phone] Globulin (S) [Mass/Vol] 3.6 g/dL Normal 2.2-4.2 [facility] Comment on above: Performed By: #### L 100.9950, L100.0100, L3410.2350, L3100.1850, L503.6550, L3100.1350, L501.2300, L501.5200, L503.0106, L500.4050, L504.2610, L101.9900, L501.6710, L501.1400, L503.6030 ####[facility] [address] [place], [place], [phone]) Glucose [Mass/Vol] 84 mg/dL Normal 70-99 [facility] Comment on above: Performed By: #### L 100.9950, L100.0100, L3410.2350, L3100.1850, L503.6550, L3100.1350, L501.2300, L501.5200, L503.0106, L500.4050, L504.2610, L101.9900, L501.6710, L501.1400, L503.6030 ####[facility] [address] [place], [place], [phone](061) Potassium [Moles/Vol] 4.0 mmol/L Normal 3.3-5.1 [facility] Comment on above: Performed By: #### L 100.9950, L100.0100, L3410.2350, L3100.1850, L503.6550, L3100.1350, L501.2300, L501.5200, L503.0106, L500.4050, L504.2610, L101.9900, L501.6710, L501.1400, L503.6030 ####[facility] [address] [place], [place], [phone](198) Sodium [Moles/Vol] 133 mmol/L Normal 133-145 [facility] Comment on above: Performed By: #### L 100.9950, L100.0100, L3410.2350, L3100.1850, L503.6550, L3100.1350, L501.2300, L501.5200, L503.0106, L500.4050, L504.2610, L101.9900, L501.6710, L501.1400, L503.6030 ####[facility] [address] [place], [address] T PROT 7.4 g/dL Normal 5.9-8.4 [facility] Comment on above: Performed By: #### L 100.9950, L100.0100, L3410.2350, L3100.1850, L503.6550, L3100.1350, L501.2300, L501.5200, L503.0106, L500.4050, L504.2610, L101.9900, L501.6710, L501.1400, L503.6030 ####[facility] [address] [place], [address] Urea nitrogen [Mass/Vol] 12 mg/dL Normal 4-19 [facility] Comment on above: Performed By: #### L 100.9950, L100.0100, L3410.2350, L3100.1850, L503.6550, L3100.1350, L501.2300, L501.5200, L503.0106, L500.4050, L504.2610, L101.9900, L501.6710, L501.1400, L503.6030 ####[facility] [address] [place], [address] Eosinophil percentageOrdered By: John Jang on 03-20-2025 Eosinophils/100 WBC (Bld) 0.9 % 0-5 [facility] Erythrocyte Sed Rateon 03-20 SED RATE 20 mm/hr Normal 0-30 [facility] Comment on above: Performed By: #### L 100.9950, L100.0100, L3410.2350, L3100.1850, L503.6550, L3100.1350, L501.2300, L501.5200, L503.0106, L500.4050, L504.2610, L101.9900, L501.6710, L501.1400, L503.6030 ####[facility] [address] [place], [place], [phone] Erythrocyte distribution wid th ratioOrdered By: John Jang on 03-20-2025 Erythrocyte distribution width (RBC) [Ratio] 21.3 % High 11.6-14.6 [facility] Erythrocyte distribution wid th standard deviationOrdered By: John Jang on 03-20-2025 Erythrocyte distribution width (RBC) [Ratio] 67.3 fl High 35.1-43.9 [facility] Erythrocyte sedimentation ra teOrdered By: John Jang on 03-20-2025 ESR (Bld) [Velocity] 20 mm/h 0-30 [facility] Ferritinon 03-20-2025 Ferritin [Mass/Vol] 132 ng/mL Normal 22-378 [facility] Comment on above: Performed By: #### L 100.9950, L100.0100, L3410.2350, L3100.1850, L503.6550, L3100.1350, L501.2300, L501.5200, L503.0106, L500.4050, L504.2610, L101.9900, L501.6710, L501.1400, L503.6030 ####[facility] [address] [place], [place], [phone] Glomerular filtration rate ( GFR) estimation/1.73 sq m using serum, plasma, or whole bOrdered By: John Jang on 03-20-2025 GFR/1.73 sq M.predicted among non-blacks MDRD (S/P/Bld) [Vol rate/Area] 85 mL/min/{1.73_m2} >60 [facility] Comment on above: mL/min/1.73m2 CKD-EP I Creatinine Equation (2020) Hematocrit Auto (Bld) [Volum e fraction]Ordered By: John Jang on 03-20-2025 Hematocrit (Bld) [Volume fraction] 37.6 % 37-47 [facility] Hemoglobin measurementOrdere d By: John Jang on 03-20-2025 Hemoglobin (Bld) [Mass/Vol] 11.3 g/dL Low 12.0-15.0 [facility] Immature granulocytes/100 WB C Auto (Bld)Ordered By: John Jang on 03-20-2025 Immature granulocytes/100 WBC (Bld) 0.800 % 0.0-0.9 [facility] Comment on above: IG% - Immature Granu locytes (promyelocytes, myelocytes and metamyelocytes) > 1% indicates that a LEFT SHIFT is Present. Iron measurement (mass/mass) Ordered By: John Jang on 03-20-2025 Iron (Unsp spec) [Mass/Mass] 57 ug/dL 50-170 [facility] Iron+Iron Binding Capacityon 03-20-2025 Iron [Mass/Vol] 57 ug/dL Normal 50-170 [facility] Comment on above: Performed By: #### L 100.9950, L100.0100, L3410.2350, L3100.1850, L503.6550, L3100.1350, L501.2300, L501.5200, L503.0106, L500.4050, L504.2610, L101.9900, L501.6710, L501.1400, L503.6030 ####[facility] [address] [place], [place], [phone] IRON SATURATION 20.0 Normal 13-59 [facility] Comment on above: Performed By: #### L 100.9950, L100.0100, L3410.2350, L3100.1850, L503.6550, L3100.1350, L501.2300, L501.5200, L503.0106, L500.4050, L504.2610, L101.9900, L501.6710, L501.1400, L503.6030 ####[facility] [address] [facility] [place], [address] TIBC 292 ug/dL Normal 250-450 [facility] Comment on above: Performed By: #### L 100.9950, L100.0100, L3410.2350, L3100.1850, L503.6550, L3100.1350, L501.2300, L501.5200, L503.0106, L500.4050, L504.2610, L101.9900, L501.6710, L501.1400, L503.6030 ####[facility] [address] [place], [address] UIBC 235 ug/dL Normal 228-428 [facility] Comment on above: Performed By: #### L 100.9950, L100.0100, L3410.2350, L3100.1850, L503.6550, L3100.1350, L501.2300, L501.5200, L503.0106, L500.4050, L504.2610, L101.9900, L501.6710, L501.1400, L503.6030 ####[facility] [address] [place], [address] LDHon 03-20-2025 LDH 163 U/L Normal 84-246 [facility] Comment on above: Order Comment: 1 Performed By: #### L 100.9950, L100.0100, L3410.2350, L3100.1850, L503.6550, L3100.1350, L501.2300, L501.5200, L503.0106, L500.4050, L504.2610, L101.9900, L501.6710, L501.1400, L503.6030 ####[facility] [address] [place], [address] Laboratory - Chemistry and C hemistry - challengeOrdered By: John Jang on 03-20-2025 AST [Catalytic activity/Vol] 18 U/L <32 [facility] Laboratory - Hematology and Cell countsOrdered By: John Jang on 03-20-2025 Anisocytosis Ql (Bld) 1+ [facility] Lactate dehydrogenase (LDH) measurementOrdered By: John Jang on 03-20-2025 LDH [Catalytic activity/Vol] 163 U/L 84-246 [facility] MCV (mean corpuscular volume ) determinationOrdered By: John Jang on 03-20-2025 MCV (RBC) [Entitic vol] 86.2 fL 81-99 [facility] Magnesiumon 03-20-2025 Magnesium [Mass/Vol] 1.9 mg/dL Normal 1.5-2.2 [facility] Comment on above: Performed By: #### L 100.9950, L100.0100, L3410.2350, L3100.1850, L503.6550, L3100.1350, L501.2300, L501.5200, L503.0106, L500.4050, L504.2610, L101.9900, L501.6710, L501.1400, L503.6030 ####[facility] [address] [place], [address] Magnesium measurement (mass/ volume)Ordered By: John Jang on 03-20-2025 Magnesium (Unsp spec) [Mass/Vol] 1.9 mg/dL 1.5-2.2 [facility] Mean corpuscular hemoglobin (MCH) determinationOrdered By: John Jang on 03-20-2025 MCH (RBC) [Entitic mass] 25.9 pg Low 27.0-32.0 [facility] Mean corpuscular hemoglobin concentration (MCHC) determinationOrdered By: John Jang on 03-20-2025 MCHC (RBC) [Mass/Vol] 30.1 g/dL Low 32-36 [facility] Mean platelet volume determi nationOrdered By: John Jang on 03-20-2025 Platelet mean volume (Bld) [Entitic vol] 8.2 fL 6.2-12.0 [facility] Monocyte percentageOrdered B y: John Jang on 03-20-2025 Monocytes/100 WBC (Bld) 10.2 % High 0-10 [facility] Neutrophil percentageOrdered By: John Jang on 03-20-2025 Neutrophils/100 WBC (Bld) 52.7 % 47-70 [facility] No Panel InformationOrdered By: John Jang on 03-20-2025 Tissue Transglutaminase IgG Ab <2 U/mL 0-5 [facility] Comment on above: Negative 0 - 5 Weak Positive 6 - 9 Positive >9 Unsaturated Iron Binding Capacity 235 ug/dL 228-428 [facility] Nucleated red blood cell per centageOrdered By: John Jang on 03-20-2025 Nucleated RBC/100 WBC (Bld) [Ratio] 0 % 0-5 [facility] Oncology Visit Reporton 02-27 Oncology Visit Report Normal [facility] Phosphoruson 03-20-2025 Phosphate [Mass/Vol] 3.0 mg/dL Normal 2.7-4.5 [facility] Comment on above: Performed By: #### L 100.9950, L100.0100, L3410.2350, L3100.1850, L503.6550, L3100.1350, L501.2300, L501.5200, L503.0106, L500.4050, L504.2610, L101.9900, L501.6710, L501.1400, L503.6030 ####[facility] [address] [place], [address] Platelet countOrdered By: Natalya Jang on 03-20-2025 Platelets (Bld) [#/Vol] 347 10*3/uL 150-450 [facility] Potassium measurement (mass/ volume)Ordered By: John Jang on 03-20-2025 Potassium (Unsp spec) [Mass/Vol] 4.0 mmol/L 3.3-5.1 [facility] RBC Auto (Bld) [#/Vol]Ordere d By: John Jang on 03-20-2025 RBC (Bld) [#/Vol] 4.36 10*6/uL 4.2-5.4 [facility] Retic Panelon 03-20-2025 IM RET FRACTION 14.80 Normal 3.00-15.90 [facility] Comment on above: Performed By: #### L 100.9950, L100.0100, L3410.2350, L3100.1850, L503.6550, L3100.1350, L501.2300, L501.5200, L503.0106, L500.4050, L504.2610, L101.9900, L501.6710, L501.1400, L503.6030 ####[facility] [address] [place], [place], [id number] RET-HE 30.5 pg Normal 30-35 [facility] Comment on above: Performed By: #### L 100.9950, L100.0100, L3410.2350, L3100.1850, L503.6550, L3100.1350, L501.2300, L501.5200, L503.0106, L500.4050, L504.2610, L101.9900, L501.6710, L501.1400, L503.6030 ####[facility] [address] [place], [address] Retic Count 1.21 Normal 0.5-1.5 [facility] Comment on above: Performed By: #### L 100.9950, L100.0100, L3410.2350, L3100.1850, L503.6550, L3100.1350, L501.2300, L501.5200, L503.0106, L500.4050, L504.2610, L101.9900, L501.6710, L501.1400, L503.6030 ####[facility] [address] [place], [address] Reticulocyte hemoglobin equi valent (RET-He) measurementOrdered By: John Jang on 03-20-2025 Hemoglobin (Reticulocytes) [Entitic mass] 30.5 pg 30-35 [facility] Reticulocytes Auto (Bld) [#/ Vol]Ordered By: John Jang on 03-20-2025 Reticulocytes/100 RBC (Bld) 1.21 % 0.5-1.5 [facility] Serum creatinine measurement (mass/volume)Ordered By: John Jang on 03-20-2025 Creatinine [Mass/Vol] 0.76 mg/dL 0.70-1.20 [facility] Serum globulin measurementOr dered By: John Jang on 03-20-2025 Globulin (S) [Mass/Vol] 3.6 g/dL 2.2-4.2 [facility] [place] Serum glucose measurement (m ass/volume)Ordered By: John Jang on 03-20-2025 Glucose [Mass/Vol] 84 mg/dL 70-99 [facility] Serum or plasma C reactive p rotein measurement (mass/volume)Ordered By: John Jang on 03-20-2025 CRP [Mass/Vol] 9.98 mg/L High 0.0-3.0 [facility] Serum or plasma alanine han otransferase (ALT) measurementOrdered By: John Jang on 03-20-2025 ALT [Catalytic activity/Vol] 9 U/L <35 [facility] Serum or plasma albumin zara urement (mass/volume)Ordered By: John Jang on 03-20-2025 Albumin [Mass/Vol] 3.9 g/dL 3.4-4.8 [facility] Serum or plasma albumin/glob ulin mass ratioOrdered By: John Jang on 03-20-2025 Albumin/Globulin [Mass ratio] 1.1 {ratio} 0.9-2.4 [facility] Serum or plasma alkaline alvarez sphatase measurementOrdered By: John Jang on 03-20-2025 ALP [Catalytic activity/Vol] 86 U/L 35-104 [facility] Serum or plasma calcium zara urement (mass/volume)Ordered By: John Jang on 03-20-2025 Calcium [Mass/Vol] 9.2 mg/dL 7.6-11.0 [facility] Serum or plasma erythropoiet in (EPO) measurement (units/volume)Ordered By: John Jang on 03-20-2025 Erythropoietin (EPO) Qn 14.3 mIU/mL 2.6-18.5 [facility] Comment on above: [employer] el DxI 800 Immunoassay SystemValues obtained with different assay methods or kits cannotbe used interchangeably. Results cannot be interpreted asabsolute evidence of the presence or absence of malignantdisease. Serum or plasma ferritin ryan surement (mass/volume)Ordered By: John Jang on 03-20-2025 Ferritin [Mass/Vol] 132 ng/mL 22-378 [facility] Serum or plasma iron saturat ion measurement (mass fraction)Ordered By: John Jang on 03-20-2025 Iron saturation [Mass fraction] 20.0 % 13-59 [facility] Serum or plasma urea nitroge n measurement (mass/volume)Ordered By: John Jang on 03-20-2025 Urea nitrogen [Mass/Vol] 12 mg/dL 4-19 [facility] Serum or plasma uric acid me asurement (mass/volume)Ordered By: John Baron on 03-20-2025 Urate [Mass/Vol] 4.0 mg/dL 2.6-6.0 [facility] Comment on above: The drugs N-Acetylcy steine and Metamizole may falsely depress this assay. Serum tissue transglutaminas e (tTG) IgA antibody assay (units/volume)Ordered By: John Jang on 03-20-2025 tTG IgA Qn (S) <2 U/mL 0-3 [facility] Comment on above: Negative 0 - 3 Weak Positive 4 - 10 Positive >10 Tissue Transglutaminase (tTG) has been identified as the endomysial antigen. Studies have demonstr- ated that endomysial IgA antibodies have over 99% specificity for gluten sensitive enteropathy. Sodium levelOrdered By: Maycol Jang on 03-20-2025 Sodium [Moles/Vol] 133 mmol/L 133-145 [facility] Total proteinOrdered By: Arian Jang on 03-20-2025 Protein [Mass/Vol] 7.4 g/dL 5.9-8.4 [facility] Uric Acidon 03-20-2025 URIC 4.0 mg/dL Normal 2.6-6.0 [facility] Comment on above: Result Comment: The drugs N-Acetylcysteine and Metamizole may falselydepress this assay. Performed By: #### L 100.9950, L100.0100, L3410.2350, L3100.1850, L503.6550, L3100.1350, L501.2300, L501.5200, L503.0106, L500.4050, L504.2610, L101.9900, L501.6710, L501.1400, L503.6030 ####[facility] [address] [place], [place], [id number] Vitamin B12on 03-20-2025 Cobalamin (Vitamin B12) [Mass/Vol] 409 pg/mL Normal 180-914 [facility] Comment on above: Performed By: #### L 100.9950, L100.0100, L3410.2350, L3100.1850, L503.6550, L3100.1350, L501.2300, L501.5200, L503.0106, L500.4050, L504.2610, L101.9900, L501.6710, L501.1400, L503.6030 ####[facility] [address] [place], [place], [id number] Vitamin B12 ser/plasOrdered By: John Jang on 03-20-2025 Cobalamin (Vitamin B12) [Mass/Vol] 409 pg/mL 180-914 [facility] White blood cell (WBC) count Ordered By: John Jang on 03-20-2025 WBC (Bld) [#/Vol] 7.9 10*3/uL 4.4-11.0 [facility] Colonoscopy Reporton 025 Colonoscopy Report Normal [facility] MR/POSTOP.ANEon 03-07-2025 MR/POSTOP.ANE Normal [facility] MR/WJAIGQOJ8wl 03-07-2025 MR/POSTOPAN2 Normal [facility] MR/PAT.ANEon 03-06-2025 MR/PAT.ANE Normal [facility] Celiac AB,Comprehensiveon ANTIGLIADIN IGA 3 units Normal 0-19 [facility] Comment on above: Result Comment: Nega tive 0 - 19 Weak Positive 20 - 30 Moderate to Strong Positive >30 Performed By: #### L 3410.2350 ####[facility] [address] [place], [place], [phone] ANTIGLIADIN IGG 2 units Normal 0-19 [facility] Comment on above: Result Comment: Nega tive 0 - 19 Weak Positive 20 - 30 Moderate to Strong Positive >30 Performed By: #### L 3410.2350 ####[facility] [address] [facility] [id number] ENDOMYSIAL IGA Negative Normal Negative [facility] Comment on above: Performed By: #### L 3410.2350 ####[facility] [address] [place] [address] IMMUNOGLOB A QN 91 mg/dL Normal 87-352 [facility] Comment on above: Result Comment: Perf ormed at: - [facility] [place] [id number] Director: Meliton Browning PhD, Phone: [phone] Performed By: #### L 0.0 ####[facility] [address] [place], [address] tTG IGA <2 Normal 0-3 [facility] Comment on above: Result Comment: Nega tive 0 - 3 Weak Positive 4 - 10 Positive >10 Tissue Transglutaminase (tTG) has been identified as the endomysial antigen. Studies have demonstr- ated that endomysial IgA antibodies have over 99% specificity for gluten sensitive enteropathy. Performed By: #### L 3410.2350 ####[facility] [address] [place], [place], [id number] tTG IGG 3 U/mL Normal 0-5 [facility] Comment on above: Result Comment: Nega tive 0 - 5 Weak Positive 6 - 9 Positive >9 Performed By: #### L 3410.2350 ####[facility] [address] [place], [address] Erythropoietinon 01-28-2025 ERYTHROPOIETIN 19.7 mIU/mL High 2.6-18.5 [facility] Comment on above: Result Comment: [employer] DxI 800 Immunoassay SystemValues obtained with different assay methods or kits cannotbe used interchangeably. Results cannot be interpreted asabsolute evidence of the presence or absence of malignantdisease.Performed at: [facility] [id number] [place], [place] [id number] Director: Meliton Browning PhD, Phone: [phone] Performed By: #### M 1007978, L3065.7465 ####[facility] [address] [place], [address] No Panel InformationOrdered By: John Jang on 01-25-2025 Tissue Transglutaminase IgG Ab 3 U/mL 0-5 [facility] Comment on above: Negative 0 - 5 Weak Positive 6 - 9 Positive >9 Serum or plasma erythropoiet in (EPO) measurement (units/volume)Ordered By: John Jang on 01-25-2025 Erythropoietin (EPO) Qn 19.7 mIU/mL High 2.6-18.5 [facility] Comment on above: [employer] el DxI 800 Immunoassay SystemValues obtained with different assay methods or kits cannotbe used interchangeably. Results cannot be interpreted asabsolute evidence of the presence or absence of malignantdisease.Performed at: [facility] [id number] [place], [place] [id number] Director: Meliton Browning PhD, Phone: [phone] Serum tissue transglutaminas e (tTG) IgA antibody assay (units/volume)Ordered By: John Jang on 01-25-2025 tTG IgA Qn (S) <2 U/mL 0-3 [facility] Comment on above: Negative 0 - 3 Weak Positive 4 - 10 Positive >10 Tissue Transglutaminase (tTG) has been identified as the endomysial antigen. Studies have demonstr- ated that endomysial IgA antibodies have over 99% specificity for gluten sensitive enteropathy. Stool Occult Blood iFOBon STOB Negative Normal [facility] Comment on above: Performed By: #### M 100.0101, L3100.1350 ####[facility] [address] [place], [address] Stool gastrointestinal hemog lobin detection by immunologic methodOrdered By: John Jang on 01-25-2025 Lower GI hemoglobin IA Ql (Stl) [facility] Celiac AB,Comprehensiveon ANTIGLIADIN IGA 2 units Normal 0-19 [facility] Comment on above: Result Comment: Nega tive 0 - 19 Weak Positive 20 - 30 Moderate to Strong Positive >30 Performed By: #### L 503.0106, L503.6550, L501.5200, L501.1400, L101.9900, L3410.2350, L501.6710, L500.4050, L100.0100, L3100.1850, L504.2610, L501.2300, L503.6030, L100.9950 ####[facility] [address] [place], [address] ANTIGLIADIN IGG 1 units Normal 0-19 [facility] Comment on above: Result Comment: Nega tive 0 - 19 Weak Positive 20 - 30 Moderate to Strong Positive >30 Performed By: #### L 503.0106, L503.6550, L501.5200, L501.1400, L101.9900, L3410.2350, L501.6710, L500.4050, L100.0100, L3100.1850, L504.2610, L501.2300, L503.6030, L100.9950 ####[facility] [address] [place], [address] ENDOMYSIAL IGA Negative Normal Negative [facility] Comment on above: Performed By: #### L 503.0106, L503.6550, L501.5200, L501.1400, L101.9900, L3410.2350, L501.6710, L500.4050, L100.0100, L3100.1850, L504.2610, L501.2300, L503.6030, L100.9950 ####[facility] [address] [place], [place], [id number] IMMUNOGLOB A QN 92 mg/dL Normal 87-352 [facility] Comment on above: Performed By: #### L 503.0106, L503.6550, L501.5200, L501.1400, L101.9900, L3410.2350, L501.6710, L500.4050, L100.0100, L3100.1850, L504.2610, L501.2300, L503.6030, L100.9950 ####[facility] [address] [place], [place], [id number] tTG IGA <2 Normal 0-3 [facility] Comment on above: Result Comment: Nega tive 0 - 3 Weak Positive 4 - 10 Positive >10 Tissue Transglutaminase (tTG) has been identified as the endomysial antigen. Studies have demonstr- ated that endomysial IgA antibodies have over 99% specificity for gluten sensitive enteropathy. Performed By: #### L 503.0106, L503.6550, L501.5200, L501.1400, L101.9900, L3410.2350, L501.6710, L500.4050, L100.0100, L3100.1850, L504.2610, L501.2300, L503.6030, L100.9950 ####[facility] [address] [place], [place], [address] tTG IGG 2 U/mL Normal 0-5 [facility] Comment on above: Result Comment: Nega tive 0 - 5 Weak Positive 6 - 9 Positive >9 Performed By: #### L 503.0106, L503.6550, L501.5200, L501.1400, L101.9900, L3410.2350, L501.6710, L500.4050, L100.0100, L3100.1850, L504.2610, L501.2300, L503.6030, L100.9950 ####[facility] [address] [place], [place], [id number] Haptoglobinon 01-24-2025 HAPTOGLOBIN 234 mg/dL Normal 37-355 [facility] Comment on above: Result Comment: Perf ormed at: - [facility] [id number] Director: Meliton Browning PhD, Phone: [phone] Performed By: #### L 503.0106, L503.6550, L501.5200, L501.1400, L101.9900, L3410.2350, L501.6710, L500.4050, L100.0100, L3100.1850, L504.2610, L501.2300, L503.6030, L100.9950 ####[facility] [address] [place], [place], [address] Absolute lymphocyte countOrd ered By: John Jang on 01-23-2025 Lymphocytes Auto (Unsp spec) [#/Vol] 3.00 10*3/uL 0.83-4.51 [facility] Absolute neutrophil countOrd ered By: John Jang on 01-23-2025 Neutrophils (Bld) [#/Vol] 4.6 10*3/uL 2.0-7.7 [facility] Anion gap in Serum or Plasma Ordered By: John Jang on 01-23-2025 Anion gap [Moles/Vol] 11 mmol/L 5-15 [facility] Automated lymphocyte count a s percentage of total leukocytesOrdered By: John Jang on 01-23-2025 Lymphocytes/100 WBC Auto (Unsp spec) 35.1 % 19-41 [facility] BUN/creatinine ratioOrdered By: John Jang on 01-23-2025 Urea nitrogen/Creatinine [Mass ratio] 30.5 mg/mg High 10-20 [facility] Basophil percentageOrdered B y: John Jang on 01-23-2025 Basophils/100 WBC (Bld) 0.2 % 0-1 [facility] Bilirubin, totalOrdered By: John Jang on 01-23-2025 Bilirubin [Mass/Vol] 0.21 mg/dL 0.00-1.30 [facility] CBC W/Diff, Automatedon 12-28 Anisocytosis Ql (Bld) 2+ Normal [facility] Comment on above: Performed By: #### L 503.0106, L503.6550, L501.5200, L501.1400, L101.9900, L3410.2350, L501.6710, L500.4050, L100.0100, L3100.1850, L504.2610, L501.2300, L503.6030, L100.9950 ####[facility] [address] [place], [place], [phone] CRPon 01-23-2025 C-REACTIVE PROT 10.50 mg/L High 0.0-3.0 [facility] Comment on above: Performed By: #### L 503.0106, L503.6550, L501.5200, L501.1400, L101.9900, L3410.2350, L501.6710, L500.4050, L100.0100, L3100.1850, L504.2610, L501.2300, L503.6030, L100.9950 ####[facility] [address] [place], [address] Carbon dioxide, total [Moles /volume] in Central venous bloodOrdered By: John Jang on 01-23-2025 CO2 [Moles/Vol] 20.9 mmol/L Low 21.0-32.0 [facility] Chloride assayOrdered By: Natalya Jang on 01-23-2025 Chloride [Moles/Vol] 100 mmol/L 98-108 [facility] Comprehensive Metabolic Prof ilon 01-23-2025 Albumin [Mass/Vol] 4.1 g/dL Normal 3.4-4.8 [facility] Comment on above: Performed By: #### L 503.0106, L503.6550, L501.5200, L501.1400, L101.9900, L3410.2350, L501.6710, L500.4050, L100.0100, L3100.1850, L504.2610, L501.2300, L503.6030, L100.9950 ####[facility] [address] [place], [place], [phone] Albumin/Globulin [Mass ratio] 1.2 {ratio} Normal 0.9-2.4 [facility] Comment on above: Performed By: #### L 503.0106, L503.6550, L501.5200, L501.1400, L101.9900, L3410.2350, L501.6710, L500.4050, L100.0100, L3100.1850, L504.2610, L501.2300, L503.6030, L100.9950 ####[facility] [address] [place], [place], [id number] ALK PHOS 77 U/L Normal 35-104 [facility] Comment on above: Performed By: #### L 503.0106, L503.6550, L501.5200, L501.1400, L101.9900, L3410.2350, L501.6710, L500.4050, L100.0100, L3100.1850, L504.2610, L501.2300, L503.6030, L100.9950 ####[facility] [address] [place], [place], [phone] ALT [Catalytic activity/Vol] 6 U/L Normal <=34 [facility] Comment on above: Performed By: #### L 503.0106, L503.6550, L501.5200, L501.1400, L101.9900, L3410.2350, L501.6710, L500.4050, L100.0100, L3100.1850, L504.2610, L501.2300, L503.6030, L100.9950 ####[facility] [address] [place], [place], [address] AST [Catalytic activity/Vol] 15 U/L Normal <=31 [facility] Comment on above: Performed By: #### L 503.0106, L503.6550, L501.5200, L501.1400, L101.9900, L3410.2350, L501.6710, L500.4050, L100.0100, L3100.1850, L504.2610, L501.2300, L503.6030, L100.9950 ####[facility] [address] [place], [place], [phone]) Bilirubin [Mass/Vol] 0.21 mg/dL Normal 0.00-1.30 [facility] Comment on above: Performed By: #### L 503.0106, L503.6550, L501.5200, L501.1400, L101.9900, L3410.2350, L501.6710, L500.4050, L100.0100, L3100.1850, L504.2610, L501.2300, L503.6030, L100.9950 ####[facility] [address] [place], [place], [address] BUN/CRE 30.5 RATIO High 10-20 [facility] Comment on above: Performed By: #### L 503.0106, L503.6550, L501.5200, L501.1400, L101.9900, L3410.2350, L501.6710, L500.4050, L100.0100, L3100.1850, L504.2610, L501.2300, L503.6030, L100.9950 ####[facility] [address] [place], [place], [address] Calcium [Mass/Vol] 9.7 mg/dL Normal 7.6-11.0 [facility] Comment on above: Performed By: #### L 503.0106, L503.6550, L501.5200, L501.1400, L101.9900, L3410.2350, L501.6710, L500.4050, L100.0100, L3100.1850, L504.2610, L501.2300, L503.6030, L100.9950 ####[facility] [address] [place], [place], [id number] Chloride [Moles/Vol] 100 mmol/L Normal 98-108 [facility] Comment on above: Performed By: #### L 503.0106, L503.6550, L501.5200, L501.1400, L101.9900, L3410.2350, L501.6710, L500.4050, L100.0100, L3100.1850, L504.2610, L501.2300, L503.6030, L100.9950 ####[facility] [address] [place], [place], [address] CO2 [Moles/Vol] 20.9 mmol/L Low 21.0-32.0 [facility] Comment on above: Performed By: #### L 503.0106, L503.6550, L501.5200, L501.1400, L101.9900, L3410.2350, L501.6710, L500.4050, L100.0100, L3100.1850, L504.2610, L501.2300, L503.6030, L100.9950 ####[facility] [address] [place], [place], [address] Creatinine [Mass/Vol] 0.91 mg/dL Normal 0.70-1.20 [facility] Comment on above: Performed By: #### L 503.0106, L503.6550, L501.5200, L501.1400, L101.9900, L3410.2350, L501.6710, L500.4050, L100.0100, L3100.1850, L504.2610, L501.2300, L503.6030, L100.9950 ####[facility] [address] [place], [place], [id number] GAP 11 Normal 5-15 [facility] Comment on above: Performed By: #### L 503.0106, L503.6550, L501.5200, L501.1400, L101.9900, L3410.2350, L501.6710, L500.4050, L100.0100, L3100.1850, L504.2610, L501.2300, L503.6030, L100.9950 ####[facility] [address] [facility] [place], [address] GFR/1.73 sq M.predicted among non-blacks MDRD (S/P/Bld) [Vol rate/Area] 69 mL/min/{1.73_m2} Normal >60 [facility] Comment on above: Result Comment: mL/m in/1.73m2 CKD-EPI Creatinine Equation (2020) Performed By: #### L 503.0106, L503.6550, L501.5200, L501.1400, L101.9900, L3410.2350, L501.6710, L500.4050, L100.0100, L3100.1850, L504.2610, L501.2300, L503.6030, L100.9950 ####[facility] [address] [place], [place], [phone] Globulin (S) [Mass/Vol] 3.5 g/dL Normal 2.2-4.2 [facility] Comment on above: Performed By: #### L 503.0106, L503.6550, L501.5200, L501.1400, L101.9900, L3410.2350, L501.6710, L500.4050, L100.0100, L3100.1850, L504.2610, L501.2300, L503.6030, L100.9950 ####[facility] [address] [place], [address] Glucose [Mass/Vol] 82 mg/dL Normal 70-99 [facility] Comment on above: Performed By: #### L 503.0106, L503.6550, L501.5200, L501.1400, L101.9900, L3410.2350, L501.6710, L500.4050, L100.0100, L3100.1850, L504.2610, L501.2300, L503.6030, L100.9950 ####[facility] [address] [place], [address] Potassium [Moles/Vol] 4.6 mmol/L Normal 3.3-5.1 [facility] Comment on above: Performed By: #### L 503.0106, L503.6550, L501.5200, L501.1400, L101.9900, L3410.2350, L501.6710, L500.4050, L100.0100, L3100.1850, L504.2610, L501.2300, L503.6030, L100.9950 ####[facility] [address] [place], [address] Sodium [Moles/Vol] 131 mmol/L Low 133-145 [facility] Comment on above: Performed By: #### L 503.0106, L503.6550, L501.5200, L501.1400, L101.9900, L3410.2350, L501.6710, L500.4050, L100.0100, L3100.1850, L504.2610, L501.2300, L503.6030, L100.9950 ####[facility] [address] [place], [address] T PROT 7.6 g/dL Normal 5.9-8.4 [facility] Comment on above: Performed By: #### L 503.0106, L503.6550, L501.5200, L501.1400, L101.9900, L3410.2350, L501.6710, L500.4050, L100.0100, L3100.1850, L504.2610, L501.2300, L503.6030, L100.9950 ####[facility] [address] [place], [address] Urea nitrogen [Mass/Vol] 28 mg/dL High 4-19 [facility] Comment on above: Performed By: #### L 503.0106, L503.6550, L501.5200, L501.1400, L101.9900, L3410.2350, L501.6710, L500.4050, L100.0100, L3100.1850, L504.2610, L501.2300, L503.6030, L100.9950 ####[facility] [address] [place], [address] Eosinophil percentageOrdered By: John Jang on 01-23-2025 Eosinophils/100 WBC (Bld) 0.5 % 0-5 [facility] Erythrocyte Sed Rateon 01-23 SED RATE 32 mm/hr High 0-30 [facility] Comment on above: Performed By: #### L 503.0106, L503.6550, L501.5200, L501.1400, L101.9900, L3410.2350, L501.6710, L500.4050, L100.0100, L3100.1850, L504.2610, L501.2300, L503.6030, L100.9950 ####[facility] [address] [place], [address] Erythrocyte distribution wid th ratioOrdered By: John Jang on 01-23-2025 Erythrocyte distribution width (RBC) [Ratio] 21.7 % High 11.6-14.6 [facility] Erythrocyte distribution wid th standard deviationOrdered By: John Jang on 01-23-2025 Erythrocyte distribution width (RBC) [Ratio] 60.2 fl High 35.1-43.9 [facility] Erythrocyte sedimentation ra teOrdered By: John Jang on 01-23-2025 ESR (Bld) [Velocity] 32 mm/h High 0-30 [facility] Ferritinon 01-23-2025 Ferritin [Mass/Vol] 17 ng/mL Low 22-378 [facility] Comment on above: Performed By: #### L 503.0106, L503.6550, L501.5200, L501.1400, L101.9900, L3410.2350, L501.6710, L500.4050, L100.0100, L3100.1850, L504.2610, L501.2300, L503.6030, L100.9950 ####[facility] [address] [place], [place], [id number] Glomerular filtration rate ( GFR) estimation/1.73 sq m using serum, plasma, or whole bOrdered By: John Jang on 01-23-2025 GFR/1.73 sq M.predicted among non-blacks MDRD (S/P/Bld) [Vol rate/Area] 69 mL/min/{1.73_m2} >60 [facility] Comment on above: mL/min/1.73m2 CKD-EP I Creatinine Equation (2020) Hematocrit Auto (Bld) [Volum e fraction]Ordered By: John Jang on 01-23-2025 Hematocrit (Bld) [Volume fraction] 32.5 % Low 37-47 [facility] Hemoglobin measurementOrdere d By: John Jang on 01-23-2025 Hemoglobin (Bld) [Mass/Vol] 9.4 g/dL Low 12.0-15.0 [facility] Immature granulocytes/100 WB C Auto (Bld)Ordered By: John Jang on 01-23-2025 Immature granulocytes/100 WBC (Bld) 0.400 % 0.0-0.9 [facility] Comment on above: IG% - Immature Granu locytes (promyelocytes, myelocytes and metamyelocytes) > 1% indicates that a LEFT SHIFT is Present. Iron measurement (mass/mass) Ordered By: John Jang on 01-23-2025 Iron (Unsp spec) [Mass/Mass] 27 ug/dL Low 50-170 [facility] Iron+Iron Binding Capacityon 01-23-2025 Iron [Mass/Vol] 27 ug/dL Low 50-170 [facility] Comment on above: Performed By: #### L 503.0106, L503.6550, L501.5200, L501.1400, L101.9900, L3410.2350, L501.6710, L500.4050, L100.0100, L3100.1850, L504.2610, L501.2300, L503.6030, L100.9950 ####[facility] [address] [place], [place], [id number] IRON SATURATION 7.0 Low 13-59 [facility] Comment on above: Performed By: #### L 503.0106, L503.6550, L501.5200, L501.1400, L101.9900, L3410.2350, L501.6710, L500.4050, L100.0100, L3100.1850, L504.2610, L501.2300, L503.6030, L100.9950 ####[facility] [address] [place], [place], [phone] TIBC 365 ug/dL Normal 250-450 [facility] Comment on above: Performed By: #### L 503.0106, L503.6550, L501.5200, L501.1400, L101.9900, L3410.2350, L501.6710, L500.4050, L100.0100, L3100.1850, L504.2610, L501.2300, L503.6030, L100.9950 ####[facility] [address] [place], [place], [phone] UIBC 338 ug/dL Normal 228-428 [facility] Comment on above: Performed By: #### L 503.0106, L503.6550, L501.5200, L501.1400, L101.9900, L3410.2350, L501.6710, L500.4050, L100.0100, L3100.1850, L504.2610, L501.2300, L503.6030, L100.9950 ####[facility] [address] [place], [place], [phone] LDHon 01-23-2025 LDH 160 U/L Normal 84-246 [facility] Comment on above: Order Comment: 1 Performed By: #### L 503.0106, L503.6550, L501.5200, L501.1400, L101.9900, L3410.2350, L501.6710, L500.4050, L100.0100, L3100.1850, L504.2610, L501.2300, L503.6030, L100.9950 ####[facility] [address] [facility]. [place], [place], [phone] Laboratory - Chemistry and C hemistry - challengeOrdered By: John Jang on 01-23-2025 AST [Catalytic activity/Vol] 15 U/L <32 [facility] Laboratory - Hematology and Cell countsOrdered By: John Jang on 01-23-2025 Anisocytosis Ql (Bld) 2+ [facility] Lactate dehydrogenase (LDH) measurementOrdered By: John Jang on 01-23-2025 LDH [Catalytic activity/Vol] 160 U/L 84-246 [facility] MCV (mean corpuscular volume ) determinationOrdered By: John Jang on 01-23-2025 MCV (RBC) [Entitic vol] 77.6 fL Low 81-99 [facility] Magnesiumon 01-23-2025 Magnesium [Mass/Vol] 2.0 mg/dL Normal 1.5-2.2 [facility] Comment on above: Performed By: #### L 503.0106, L503.6550, L501.5200, L501.1400, L101.9900, L3410.2350, L501.6710, L500.4050, L100.0100, L3100.1850, L504.2610, L501.2300, L503.6030, L100.9950 ####[facility] [address] [place], [address] Magnesium measurement (mass/ volume)Ordered By: John Jang on 01-23-2025 Magnesium (Unsp spec) [Mass/Vol] 2.0 mg/dL 1.5-2.2 [facility] Mean corpuscular hemoglobin (MCH) determinationOrdered By: John Jang on 01-23-2025 MCH (RBC) [Entitic mass] 22.4 pg Low 27.0-32.0 [facility] Mean corpuscular hemoglobin concentration (MCHC) determinationOrdered By: John Jang on 01-23-2025 MCHC (RBC) [Mass/Vol] 28.9 g/dL Low 32-36 [facility] Mean platelet volume determi nationOrdered By: John Jang on 01-23-2025 Platelet mean volume (Bld) [Entitic vol] 7.9 fL 6.2-12.0 [facility] Monocyte percentageOrdered B y: John Jang on 01-23-2025 Monocytes/100 WBC (Bld) 10.3 % High 0-10 [facility] Neutrophil percentageOrdered By: John Jang on 01-23-2025 Neutrophils/100 WBC (Bld) 53.5 % 47-70 [facility] No Panel InformationOrdered By: John Jang on 01-23-2025 Tissue Transglutaminase IgG Ab 2 U/mL 0-5 [facility] Comment on above: Negative 0 - 5 Weak Positive 6 - 9 Positive >9 Unsaturated Iron Binding Capacity 338 ug/dL 228-428 [facility] Nucleated red blood cell per centageOrdered By: John Jang on 01-23-2025 Nucleated RBC/100 WBC (Bld) [Ratio] 0 % 0-5 [facility] Oncology Visit Reporton 12-28 Oncology Visit Report Normal [facility] Phosphoruson 01-23-2025 Phosphate [Mass/Vol] 4.0 mg/dL Normal 2.7-4.5 [facility] Comment on above: Performed By: #### L 503.0106, L503.6550, L501.5200, L501.1400, L101.9900, L3410.2350, L501.6710, L500.4050, L100.0100, L3100.1850, L504.2610, L501.2300, L503.6030, L100.9950 ####[facility] [address] [place], [place], [phone] Platelet countOrdered By: Natalya Jang on 01-23-2025 Platelets (Bld) [#/Vol] 390 10*3/uL 150-450 [facility] Potassium measurement (mass/ volume)Ordered By: John Jang on 01-23-2025 Potassium (Unsp spec) [Mass/Vol] 4.6 mmol/L 3.3-5.1 [facility] RBC Auto (Bld) [#/Vol]Ordere d By: John Jang on 01-23-2025 RBC (Bld) [#/Vol] 4.19 10*6/uL Low 4.2-5.4 [facility] Retic Panelon 01-23-2025 IM RET FRACTION 20.90 High 3.00-15.90 [facility] Comment on above: Performed By: #### L 503.0106, L503.6550, L501.5200, L501.1400, L101.9900, L3410.2350, L501.6710, L500.4050, L100.0100, L3100.1850, L504.2610, L501.2300, L503.6030, L100.9950 ####[facility] [address] [place], [place], [phone] RET-HE 21.3 pg Low 30-35 [facility] Comment on above: Performed By: #### L 503.0106, L503.6550, L501.5200, L501.1400, L101.9900, L3410.2350, L501.6710, L500.4050, L100.0100, L3100.1850, L504.2610, L501.2300, L503.6030, L100.9950 ####[facility] [address] [place], [place], [phone] Retic Count 1.04 Normal 0.5-1.5 [facility] Comment on above: Performed By: #### L 503.0106, L503.6550, L501.5200, L501.1400, L101.9900, L3410.2350, L501.6710, L500.4050, L100.0100, L3100.1850, L504.2610, L501.2300, L503.6030, L100.9950 ####[facility] [address] [place], [place], [phone] Reticulocyte hemoglobin equi valent (RET-He) measurementOrdered By: John Jang on 01-23-2025 Hemoglobin (Reticulocytes) [Entitic mass] 21.3 pg Low 30-35 [facility] Reticulocytes Auto (Bld) [#/ Vol]Ordered By: John Jang on 01-23-2025 Reticulocytes/100 RBC (Bld) 1.04 % 0.5-1.5 [facility] Serum creatinine measurement (mass/volume)Ordered By: John Jang on 01-23-2025 Creatinine [Mass/Vol] 0.91 mg/dL 0.70-1.20 [facility] Serum globulin measurementOr dered By: John Jang on 01-23-2025 Globulin (S) [Mass/Vol] 3.5 g/dL 2.2-4.2 [facility] Serum glucose measurement (m ass/volume)Ordered By: John Jang on 01-23-2025 Glucose [Mass/Vol] 82 mg/dL 70-99 [facility] Serum or plasma C reactive p rotein measurement (mass/volume)Ordered By: John Jang on 01-23-2025 CRP [Mass/Vol] 10.50 mg/L High 0.0-3.0 [facility] Serum or plasma alanine han otransferase (ALT) measurementOrdered By: John Jang on 01-23-2025 ALT [Catalytic activity/Vol] 6 U/L <35 [facility] Serum or plasma albumin zara urement (mass/volume)Ordered By: John Jang on 01-23-2025 Albumin [Mass/Vol] 4.1 g/dL 3.4-4.8 [facility] Serum or plasma albumin/glob ulin mass ratioOrdered By: John Jang on 01-23-2025 Albumin/Globulin [Mass ratio] 1.2 {ratio} 0.9-2.4 [facility] Serum or plasma alkaline alvarez sphatase measurementOrdered By: John Jang on 01-23-2025 ALP [Catalytic activity/Vol] 77 U/L 35-104 [facility] Serum or plasma calcium zara urement (mass/volume)Ordered By: John Jang on 01-23-2025 Calcium [Mass/Vol] 9.7 mg/dL 7.6-11.0 [facility] Serum or plasma ferritin ryan surement (mass/volume)Ordered By: John Jang on 01-23-2025 Ferritin [Mass/Vol] 17 ng/mL Low 22-378 [facility] Serum or plasma iron saturat ion measurement (mass fraction)Ordered By: John Jang on 01-23-2025 Iron saturation [Mass fraction] 7.0 % Low 13-59 [facility] Serum or plasma urea nitroge n measurement (mass/volume)Ordered By: John Jang on 01-23-2025 Urea nitrogen [Mass/Vol] 28 mg/dL High 4-19 [facility] Serum or plasma uric acid me asurement (mass/volume)Ordered By: John Jang on 01-23-2025 Urate [Mass/Vol] 4.0 mg/dL 2.6-6.0 [facility] Comment on above: The drugs N-Acetylcy steine and Metamizole may falsely depress this assay. Serum tissue transglutaminas e (tTG) IgA antibody assay (units/volume)Ordered By: John Jang on 01-23-2025 tTG IgA Qn (S) <2 U/mL 0-3 [facility] Comment on above: Negative 0 - 3 Weak Positive 4 - 10 Positive >10 Tissue Transglutaminase (tTG) has been identified as the endomysial antigen. Studies have demonstr- ated that endomysial IgA antibodies have over 99% specificity for gluten sensitive enteropathy. Sodium levelOrdered By: Maycol Jang on 01-23-2025 Sodium [Moles/Vol] 131 mmol/L Low 133-145 [facility] Total proteinOrdered By: Arian Jang on 01-23-2025 Protein [Mass/Vol] 7.6 g/dL 5.9-8.4 [facility] Uric Acidon 01-23-2025 URIC 4.0 mg/dL Normal 2.6-6.0 [facility] Comment on above: Result Comment: The drugs N-Acetylcysteine and Metamizole may falselydepress this assay. Performed By: #### L 503.0106, L503.6550, L501.5200, L501.1400, L101.9900, L3410.2350, L501.6710, L500.4050, L100.0100, L3100.1850, L504.2610, L501.2300, L503.6030, L100.9950 ####[facility] [address] [facility] [place], [address] Vitamin B12on 01-23-2025 Cobalamin (Vitamin B12) [Mass/Vol] 454 pg/mL Normal 180-914 [facility] Comment on above: Performed By: #### L 503.0106, L503.6550, L501.5200, L501.1400, L101.9900, L3410.2350, L501.6710, L500.4050, L100.0100, L3100.1850, L504.2610, L501.2300, L503.6030, L100.9950 ####[facility] [address] [facility]. [place], [place], [phone] Vitamin B12 ser/plasOrdered By: John Jnag on 01-23-2025 Cobalamin (Vitamin B12) [Mass/Vol] 454 pg/mL 180-914 [facility] White blood cell (WBC) count Ordered By: John Jang on 01-23-2025 WBC (Bld) [#/Vol] 8.6 10*3/uL 4.4-11.0 [facility] Absolute lymphocyte countOrd ered By: Clau Mcclain on 01-03-2025 Lymphocytes Auto (Unsp spec) [#/Vol] 3.12 10*3/uL 0.83-4.51 [facility] Absolute neutrophil countOrd ered By: Clau Mcclain on 01-03-2025 Neutrophils (Bld) [#/Vol] 5.0 10*3/uL 2.0-7.7 [facility] Automated lymphocyte count a s percentage of total leukocytesOrdered By: Clau Mcclain on 01-03-2025 Lymphocytes/100 WBC Auto (Unsp spec) 33.9 % 19-41 [facility] Basophil percentageOrdered B y: Clau Mcclain on 01-03-2025 Basophils/100 WBC (Bld) 0.2 % 0-1 [facility] CBC W/Diff, Automatedon Anisocytosis Ql (Bld) 1+ Normal [facility] Comment on above: Performed By: #### L 100.0100 ####[facility] [address] [place], [address] Eosinophil percentageOrdered By: Clau Mcclain on 01-03-2025 Eosinophils/100 WBC (Bld) 1.1 % 0-5 [facility] Erythrocyte distribution wid th ratioOrdered By: Clau Mcclain on 01-03-2025 Erythrocyte distribution width (RBC) [Ratio] 22.5 % High 11.6-14.6 [facility] Erythrocyte distribution wid th standard deviationOrdered By: Clau Mcclain on 01-03-2025 Erythrocyte distribution width (RBC) [Ratio] 61.8 fl High 35.1-43.9 [facility] Gastroenterology Visit Repor ton 01-03-2025 Gastroenterology Visit Report Normal [facility] Hematocrit Auto (Bld) [Volum e fraction]Ordered By: Clau Mcclain on 01-03-2025 Hematocrit (Bld) [Volume fraction] 30.5 % Low 37-47 [facility] Hemoglobin measurementOrdere d By: Clau Mcclain on 01-03-2025 Hemoglobin (Bld) [Mass/Vol] 9.1 g/dL Low 12.0-15.0 [facility] Immature granulocytes/100 WB C Auto (Bld)Ordered By: Clau Mcclain on 01-03-2025 Immature granulocytes/100 WBC (Bld) 0.700 % 0.0-0.9 [facility] Comment on above: IG% - Immature Granu locytes (promyelocytes, myelocytes and metamyelocytes) > 1% indicates that a LEFT SHIFT is Present. Laboratory - Hematology and Cell countsOrdered By: Clau Mcclain on 01-03-2025 Anisocytosis Ql (Bld) 1+ [facility] MCV (mean corpuscular volume ) determinationOrdered By: Clau Mcclain on 01-03-2025 MCV (RBC) [Entitic vol] 75.3 fL Low 81-99 [facility] Mean corpuscular hemoglobin (MCH) determinationOrdered By: Clau Mcclain on 01-03-2025 MCH (RBC) [Entitic mass] 22.5 pg Low 27.0-32.0 [facility] Mean corpuscular hemoglobin concentration (MCHC) determinationOrdered By: Clau Mcclain on 01-03-2025 MCHC (RBC) [Mass/Vol] 29.8 g/dL Low 32-36 [facility] Mean platelet volume determi nationOrdered By: Clau Mcclain on 01-03-2025 Platelet mean volume (Bld) [Entitic vol] 7.7 fL 6.2-12.0 [facility] Monocyte percentageOrdered B y: Clau Mcclain on 01-03-2025 Monocytes/100 WBC (Bld) 9.2 % 0-10 [facility] Neutrophil percentageOrdered By: Clau Mcclain on 01-03-2025 Neutrophils/100 WBC (Bld) 54.9 % 47-70 [facility] Nucleated red blood cell per centageOrdered By: Clau Mcclain on 01-03-2025 Nucleated RBC/100 WBC (Bld) [Ratio] 0 % 0-5 [facility] Platelet countOrdered By: Mann Mcclain on 01-03-2025 Platelets (Bld) [#/Vol] 410 10*3/uL 150-450 [facility] RBC Auto (Bld) [#/Vol]Ordere d By: Clau Johny on 01-03-2025 RBC (Bld) [#/Vol] 4.05 10*6/uL Low 4.2-5.4 [facility] White blood cell (WBC) count Ordered By: Clau Mcclain on 01-03-2025 WBC (Bld) [#/Vol] 9.2 10*3/uL 4.4-11.0 [facility] 25(OH)D3 SerPl-ncon 2024 25-hydroxyvitamin D3 [Mass/Vol] 79.0 ng/mL Normal 31.0-80.0 [facility] Comment on above: Order Comment: Speci men Type: BLOOD SPECIMEN Ordering Facility: [facility] Address: [address] [place] [address] Result Comment: Clas sification of 25 [place] Vitamin D status: Deficiency/Insufficiency: < or = 30 ng/ml. Sufficiency/Optimal Levels: 31-80 ng/mL Toxicity: > 100 ng/mL. Test performed by chemiluminescent immunoassay. Performed By: #### 1 989-3 #### [facility] CLIA [id number] [address] [place], [place] [address] [place] [address] [place] CBC W Auto Differential pane l (Bld)on 12-26-2024 Basophils (Bld) [#/Vol] 0.04 10*3/uL [facility] Basophils/100 WBC (Bld) 0.3 % [facility] Differential cell count method Nom (Bld) Auto [facility] Eosinophils (Bld) [#/Vol] [facility] Eosinophils/100 WBC (Bld) 0.2 % [facility] Erythrocyte distribution width (RBC) [Ratio] 23.2 % High 11.5 - 15.0 % [facility] Hematocrit (Bld) [Volume fraction] 33.4 % Low 36.0 - 46.0 % [facility] Hemoglobin (Bld) [Mass/Vol] 9.9 g/dL Low 11.5 - 15.5 g/dL [facility] Immature granulocytes (Bld) [#/Vol] 0.06 10*3/uL [facility] Immature granulocytes/100 WBC (Bld) 0.5 % [facility] Interpretation and review of laboratory results Abnormal [facility] Lymphocytes (Bld) [#/Vol] 2.96 10*3/uL [facility] Lymphocytes/100 WBC (Bld) 25.9 % [facility] MCH (RBC) [Entitic mass] 22 pg Low 26.0 - 34.0 pg [facility] MCHC (RBC) [Mass/Vol] 29.6 g/dL Low 30.5 - 36.0 g/dL [facility] MCV (RBC) [Entitic vol] 74.1 fL Low 80.0 - 100.0 fL [facility] Monocytes (Bld) [#/Vol] 1.07 10*3/uL High [facility] Monocytes/100 WBC (Bld) 9.4 % [facility] Neutrophils (Bld) [#/Vol] 7.28 10*3/uL [facility] Neutrophils/100 WBC (Bld) 63.7 % [facility] Nucleated RBC (Bld) [#/Vol] [facility] Nucleated RBC/100 WBC (Bld) [Ratio] 0 % /100 WBC [facility] Platelet mean volume (Bld) [Entitic vol] 7.5 fL Low 9.0 - 12.7 fL [facility] Platelets (Bld) [#/Vol] 435 10*3/uL High [facility] RBC (Bld) [#/Vol] 4.51 10*6/uL 3.90 - 5.2 0 m/uL [facility] WBC (Bld) [#/Vol] 11.43 10*3/uL High [facility] Basophils (Bld) [#/Vol] 0.04 10*3/uL Normal <0.11 [facility] Comment on above: Order Comment: Speci men Type: BLOOD SPECIMEN Ordering Facility: [facility] Address: [address] [place] [address] Performed By: #### 5 7021-8 #### [facility] [id number] [address] [place] [address] [place] Basophils/100 WBC (Bld) 0.3 % Normal C [facility] Comment on above: Order Comment: Speci men Type: BLOOD SPECIMEN Ordering Facility: [facility] Address: [address] [place] [address] Performed By: #### 5 7021-8 #### [facility] CLIA [id number] [address] [place] [address] [place] Differential cell count method Nom (Bld) Auto Normal [facility] Comment on above: Order Comment: Speci men Type: BLOOD SPECIMEN Ordering Facility: [facility] Address: [address] [place] [address] Performed By: #### 5 7021-8 #### [facility] CLIA [id number] [address] [place] [address] [place] Eosinophils (Bld) [#/Vol] 10*3/uL Normal <0.46 [facility] Comment on above: Order Comment: Speci men Type: BLOOD SPECIMEN Ordering Facility: [facility] Address: [address] [place] [address] Performed By: #### 5 7021-8 #### [facility] CLIA [id number] [address] [place] [address] [place] Eosinophils/100 WBC (Bld) 0.2 % Normal [facility] Comment on above: Order Comment: Speci men Type: BLOOD SPECIMEN Ordering Facility: [facility] Address: [address] [place] [address] Performed By: #### 5 7021-8 #### [facility] CLIA [id number] [address] [place] [address] [place] Erythrocyte distribution width (RBC) [Ratio] 23.2 % High 11.5-15.0 [facility] Comment on above: Order Comment: Speci men Type: BLOOD SPECIMEN Ordering Facility: [facility] Address: [address] [place] [address] Performed By: #### 5 7021-8 #### [facility] CLIA [id number] [address] [place] [address] [place] Hematocrit (Bld) [Volume fraction] 33.4 % Low 36.0-46.0 [facility] Comment on above: Order Comment: Speci men Type: BLOOD SPECIMEN Ordering Facility: [facility] Address: [address] [place] [address] Performed By: #### 5 7021-8 #### [facility] CLIA [id number] [address] [place] [address] [place] Hemoglobin (Bld) [Mass/Vol] 9.9 g/dL Low 11.5-15.5 [facility] Comment on above: Order Comment: Speci men Type: BLOOD SPECIMEN Ordering Facility: [facility] Address: [address] [place] [address] Performed By: #### 5 7021-8 #### [facility] [id number] [address] [place] [address] [place] Immature granulocytes (Bld) [#/Vol] 0.06 10*3/uL Normal <0.10 [facility] Comment on above: Order Comment: Speci men Type: BLOOD SPECIMEN Ordering Facility: [facility] Address: [address] [place] [address] Performed By: #### 5 7021-8 #### [facility] CLIA [id number] [address] [place] [address] [place] Immature granulocytes/100 WBC (Bld) 0.5 % Normal [facility] Comment on above: Order Comment: Speci men Type: BLOOD SPECIMEN Ordering Facility: [facility] Address: [address] [place] [address] Performed By: #### 5 7021-8 #### [facility] [id number] [address] [place] [address] [place] Lymphocytes (Bld) [#/Vol] 2.96 10*3/uL Normal 1.00-4.00 [facility] Comment on above: Order Comment: Speci men Type: BLOOD SPECIMEN Ordering Facility: [facility] Address: [address] [place] [address] Performed By: #### 5 7021-8 #### [facility] CLIA [id number] [address] [place] [address] [place] Lymphocytes/100 WBC (Bld) 25.9 % Normal [facility] Comment on above: Order Comment: Speci men Type: BLOOD SPECIMEN Ordering Facility: [facility] Address: [address] [place] [address] Performed By: #### 5 7021-8 #### [facility] CLIA [id number] [address] [place] [address] [place] MCH (RBC) [Entitic mass] 22.0 pg Low 26.0-34.0 [facility] Comment on above: Order Comment: Speci men Type: BLOOD SPECIMEN Ordering Facility: [facility] Address: [address] [place] [address] Performed By: #### 5 7021-8 #### [facility] [id number] [address] [place] [address] [place] MCHC (RBC) [Mass/Vol] 29.6 g/dL Low 30.5-36.0 [facility] Comment on above: Order Comment: Speci men Type: BLOOD SPECIMEN Ordering Facility: [facility] Address: [address] [place] [address] Performed By: #### 5 7021-8 #### [facility] [id number] [address] [place] [address] [place] MCV (RBC) [Entitic vol] 74.1 fL Low 80.0-100.0 C [facility] Comment on above: Order Comment: Speci men Type: BLOOD SPECIMEN Ordering Facility: [facility] Address: [facility] [place] [address] Performed By: #### 5 7021-8 #### [facility] CLIA [id number] [address] [place] [address] [place] Monocytes (Bld) [#/Vol] 1.07 10*3/uL High <0.87 [facility] Comment on above: Order Comment: Speci men Type: BLOOD SPECIMEN Ordering Facility: [facility] Address: [address] [place] [address] Performed By: #### 5 7021-8 #### [facility] CLIA [id number] [address] [place] [address] [place] Monocytes/100 WBC (Bld) 9.4 % Normal [facility] Comment on above: Order Comment: Speci men Type: BLOOD SPECIMEN Ordering Facility: [facility] Address: [address] [place] [address] Performed By: #### 5 7021-8 #### [facility] CLIA [id number] [address] [place] [address] [place] Neutrophils (Bld) [#/Vol] 7.28 10*3/uL Normal 1.45-7.50 [facility] Comment on above: Order Comment: Speci men Type: BLOOD SPECIMEN Ordering Facility: [facility] Address: [address] [place] [address] Performed By: #### 5 7021-8 #### [facility] CLIA [id number] [address] [place] [address] [place] Neutrophils/100 WBC (Bld) 63.7 % Normal [facility] Comment on above: Order Comment: Speci men Type: BLOOD SPECIMEN Ordering Facility: [facility] Address: [address] [place] [address] Performed By: #### 5 7021-8 #### [facility] CLIA [id number] [address] [place] [address] [place] Nucleated RBC (Bld) [#/Vol] 10*3/uL Normal <0.01 [facility] Comment on above: Order Comment: Speci men Type: BLOOD SPECIMEN Ordering Facility: [facility] Address: [address] [place] [address] Performed By: #### 5 7021-8 #### [facility] CLIA [id number] [address] [place] [address] [place] Nucleated RBC/100 WBC (Bld) [Ratio] 0.0 /100 WBC Normal [facility] Comment on above: Order Comment: Speci men Type: BLOOD SPECIMEN Ordering Facility: [facility] Address: [address] [place] [address] Performed By: #### 5 7021-8 #### [facility] CLIA [id number] [address] [place] [address] [place] Platelet mean volume (Bld) [Entitic vol] 7.5 fL Low 9.0-12.7 [facility] Comment on above: Order Comment: Speci men Type: BLOOD SPECIMEN Ordering Facility: [facility] Address: [address] [place] [address] Performed By: #### 5 7021-8 #### [facility] CLIA [id number] [address] [place] [address] [place] Platelets (Bld) [#/Vol] 435 10*3/uL High 150-400 [facility] Comment on above: Order Comment: Speci men Type: BLOOD SPECIMEN Ordering Facility: [facility] Address: [address] [place] [address] Performed By: #### 5 7021-8 #### [facility] CLIA [id number] [address] [place] [address] [place] RBC (Bld) [#/Vol] 4.51 10*6/uL Normal 3.90-5.20 [facility] Comment on above: Order Comment: Speci men Type: BLOOD SPECIMEN Ordering Facility: [facility] Address: [address] [place] [address] Performed By: #### 5 7021-8 #### [facility] CLIA [id number] [address] [place] [address] [place] WBC (Bld) [#/Vol] 11.43 10*3/uL High 3.70-11.00 [facility] Comment on above: Order Comment: Speci men Type: BLOOD SPECIMEN Ordering Facility: [facility] Address: [address] [place] [address] Performed By: #### 5 7021-8 #### [facility] CLIA [id number] [address] [place] [address] OF [place] CNOVon 12-26-2024 CNOV Office Visit (RHWSTR ) WINTER JOY ([id number]) 1955 F Date Time Provider Department 12/26/24 11:00 AM ISABEL CERON RHWSTR During your visit today, we recorded the following information about you: Pulse Respiration Blood pressure Weight 80/minute 16/minute 144/79 103 kg Isabel Ceron PA-C 01/02/2025 4:18 PM Addendum Rheumatology CONSULTATION Date of Service: 12/26/2024 Patient: Winter Merritt Joy Medical Record: [id number] Primary Care Physician: Janet Ramos DO Last Rheumatology visit: 04/22/2023 (with Génesis Ray) Recording using [employer] software for draft documentation of the visit was discussed with the patient/authorized computer help desk representative; all questions welcomed and answered. 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 She was evaluated by an locator specialist who confirmed no fractures or tears, [...] Medical History (more content not included)... Normal [facility] CRP SerPl-ncon 12-26-2024 CRP [Mass/Vol] 3.3 mg/dL High <0.9 [facility] Comment on above: Order Comment: Speci men Type: BLOOD SPECIMEN Ordering Facility: [facility] Address: [address] [place] [address] Performed By: #### 1 988-5, 43771-3 #### [facility] CLIA [id number] [address] [place] [address] [place] [address] [place] Comprehensive metabolic 2000 panelOrdered By: Nadine Lake on 12-26-2024 Albumin [Mass/Vol] 4.3 g/dL 3.9 - 4.9 g/dL [facility] ALP [Catalytic activity/Vol] 94 U/L 34 - 123 U/L [facility] ALT [Catalytic activity/Vol] 7 U/L 7 - 38 U/L [facility] Anion gap [Moles/Vol] 11 mmol/L 8 - 15 mmol/L [facility] AST [Catalytic activity/Vol] 12 U/L Low 13 - 35 U/L [facility] Bilirubin [Mass/Vol] 0.2 mg/dL 0.2 - 1 .3 mg/dL [facility] Calcium [Mass/Vol] 10 mg/dL 8.5 - 10. 2 mg/dL [facility] Chloride [Moles/Vol] 97 mmol/L Low 98 - 10 7 mmol/L [facility] CO2 [Moles/Vol] 26 mmol/L 22 - 30 mmol/L [facility] Creatinine [Mass/Vol] 0.62 mg/dL 0.58 - 0.96 mg/dL [facility] GFR/1.73 sq M.predicted among non-blacks MDRD (S/P/Bld) [Vol rate/Area] 97 mL/min/{1.73_m2} - PINF [facility] Comment on above: Estimated Glomerular Filtration Rate [...] 108 mg/dL High 74 - 99 mg/dL [facility] Comment on above: The [place] Diabete [employer] Association (ADA) provides guidance for [...] Standards of Medical Care in Diabetes 2016, [place] [employer] Association. Diabetes Care. 2016.39(Suppl 1). Interpretation and review of laboratory results Abnormal [facility] Potassium [Moles/Vol] 4.3 mmol/L 3.7 - 5.1 mmol/L [facility] Protein [Mass/Vol] 8.2 g/dL High 6.3 - 8.0 g/dL [facility] Sodium [Moles/Vol] 134 mmol/L Low 136 - 144 mmol/L [facility] Urea nitrogen [Mass/Vol] 11 mg/dL 7 - 21 mg/dL [facility] Comprehensive metabolic 2000 panelon 12-26-2024 Albumin [Mass/Vol] 4.3 g/dL Normal 3.9-4.9 [facility] Comment on above: Order Comment: Speci men Type: BLOOD SPECIMEN Ordering Facility: [facility] Address: [address] [place] [address] Performed By: #### 2 4323-8 #### [facility] CLIA [id number] [address] [place] [address] [place] ALP [Catalytic activity/Vol] 94 U/L Normal 34-123 [facility] Comment on above: Order Comment: Speci men Type: BLOOD SPECIMEN Ordering Facility: [facility] Address: [address] [place] [address] Performed By: #### 2 4323-8 #### [facility] CLIA [id number] [address] [place] [address] [place] ALT [Catalytic activity/Vol] 7 U/L Normal 7-38 [facility] Comment on above: Order Comment: Speci men Type: BLOOD SPECIMEN Ordering Facility: [facility] Address: [address] [place] [address] Performed By: #### 2 4323-8 #### [facility] CLIA [id number] [address] [place] [address] [place] Anion gap [Moles/Vol] 11 mmol/L Normal 8-15 [facility] Comment on above: Order Comment: Speci men Type: BLOOD SPECIMEN Ordering Facility: [facility] Address: [address] [place] [address] Performed By: #### 2 4323-8 #### [facility] CLIA [id number] [address] [place] [address] [place] AST [Catalytic activity/Vol] 12 U/L Low 13-35 [facility] Comment on above: Order Comment: Speci men Type: BLOOD SPECIMEN Ordering Facility: [facility] Address: [address] [place] [address] Performed By: #### 2 4323-8 #### [facility] CLIA [id number] [address] [place] [address] [place] Bilirubin [Mass/Vol] 0.2 mg/dL Normal 0.2-1.3 [facility] Comment on above: Order Comment: Speci men Type: BLOOD SPECIMEN Ordering Facility: [facility] Address: [address] [place] [address] Performed By: #### 2 4323-8 #### [facility] CLIA [id number] [address] [place] [address] [place] Calcium [Mass/Vol] 10.0 mg/dL Normal 8.5-10.2 [facility] Comment on above: Order Comment: Speci men Type: BLOOD SPECIMEN Ordering Facility: [facility] Address: [address] [place] [address] Performed By: #### 2 4323-8 #### [facility] CLIA [id number] [address] [place] [address] [place] Chloride [Moles/Vol] 97 mmol/L Low 98-107 [facility] Comment on above: Order Comment: Speci men Type: BLOOD SPECIMEN Ordering Facility: [facility] Address: [address] [place] [address] Performed By: #### 2 4323-8 #### [facility] CLIA [id number] [address] [place] [address] [place] CO2 [Moles/Vol] 26 mmol/L Normal 22-30 [facility] Comment on above: Order Comment: Rafat castellon Type: BLOOD SPECIMEN Ordering Facility: [facility] Address: [address] [place] [address] Performed By: #### 2 4323-8 #### [facility] [id number] [address] [place] [address] [place] Creatinine [Mass/Vol] 0.62 mg/dL Normal 0.58-0.96 [facility] Comment on above: Order Comment: Rafat castellon Type: BLOOD SPECIMEN Ordering Facility: [facility] Address: [address] [place] [address] Performed By: #### 2 4323-8 #### [facility] [id number] [address] [place] [address] [place] Creatinine and Glomerular filtration rate.predicted panel (S/P/Bld) 97 mL/min/1.73m??? Normal >=60 [facility] Comment on above: Order Comment: Rafat castellon Type: BLOOD SPECIMEN Ordering Facility: [facility] Address: [address] [place] [address] Result Comment: Nathalie mated Glomerular Filtration Rate [...] GFR. Performed By: #### 2 4323-8 #### [facility] [id number] [address] [place] [address] [place] Glucose [Mass/Vol] 108 mg/dL High 74-99 [facility] Comment on above: Order Comment: Rafat castellon Type: BLOOD SPECIMEN Ordering Facility: [facility] Address: [address] [place] [address] Result Comment: The [place] Diabetes Association (ADA) provides guidance for cutoff [...] Standards of Medical Care in Diabetes 2016, [place] [employer]. Diabetes Care. 2016.39(Suppl 1). Performed By: #### 2 4323-8 #### [facility] [id number] [address] [place] [address] [place] Potassium [Moles/Vol] 4.3 mmol/L Normal 3.7-5.1 [facility] Comment on above: Order Comment: Speci men Type: BLOOD SPECIMEN Ordering Facility: [facility] Address: [address] [id number] Performed By: #### 2 4323-8 #### [facility] [id number] [address] [place] [address] [place] Protein [Mass/Vol] 8.2 g/dL High 6.3-8.0 [facility] Comment on above: Order Comment: Speci men Type: BLOOD SPECIMEN Ordering Facility: [facility] Address: [address] [place] [address] Performed By: #### 2 4323-8 #### [facility] [id number] [address] [place] [address] [place] Sodium [Moles/Vol] 134 mmol/L Low 136-144 [facility] Comment on above: Order Comment: Speci men Type: BLOOD SPECIMEN Ordering Facility: [facility] Address: [address] [place] [address] Performed By: #### 2 4323-8 #### [facility] CLIA [id number] [address] [place] [address] [place] Urea nitrogen [Mass/Vol] 11 mg/dL Normal 7-21 [facility] Comment on above: Order Comment: Speci men Type: BLOOD SPECIMEN Ordering Facility: [facility] Address: [address] [place] [address] Performed By: #### 2 4323-8 #### [facility] CLIA [id number] [address] [place] [address] [place] ESR Westergren method (Bld) [Velocity]on 12-26-2024 ESR (Bld) [Velocity] 38 mm/h High [facility] Interpretation and review of laboratory results Abnormal [facility] ESR (Bld) [Velocity] 38 mm/h High 0-20 [facility] Comment on above: Order Comment: Speci men Type: BLOOD SPECIMEN Ordering Facility: [facility] Address: [address] [place] [address] Performed By: #### 4 537-7 #### [facility] CLIA [id number] [address] [place] [address] [place] Rheumatoid fact SerPl-aCncon 12-26-2024 Rheumatoid factor Qn 83 [IU]/mL High <16 [facility] Comment on above: Order Comment: Speci men Type: BLOOD SPECIMEN Ordering Facility: [facility] Address: [address] [place] [address] Performed By: #### 1 988-5, 70503-1 #### [facility] CLIA [id number] [address] [place] [address] [place] Knee 3 Viewson 12-19-2024 Knee 3 Views Normal [facility] Orthopedic Visit Reporton Orthopedic Visit Report Normal [facility] Absolute lymphocyte countOrd ered By: Clau pickens 11-21-2024 Lymphocytes Auto (Unsp spec) [#/Vol] 3.12 10*3/uL 0.83-4.51 [facility] Absolute neutrophil countOrd ered By: Clau Mcclain on 11-21-2024 Neutrophils (Bld) [#/Vol] 4.4 10*3/uL 2.0-7.7 [facility] Automated lymphocyte count a s percentage of total leukocytesOrdered By: Clau Mcclain on 11-21-2024 Lymphocytes/100 WBC Auto (Unsp spec) 37.2 % 19-41 [facility] Basophil percentageOrdered B y: Clau Mcclain on 11-21-2024 Basophils/100 WBC (Bld) 0.4 % 0-1 [facility] Blood polychromasia detectio n by light microscopyOrdered By: Clau Mcclain on 11-21-2024 Polychromasia LM Ql (Bld) 1+ [facility] CBC W/Diff, Automatedon 10-28 Anisocytosis Ql (Bld) 1+ Normal [facility] Comment on above: Performed By: #### L 503.6030, L100.0100 ####[facility] [address] [place], [place], [id number] PLT EST A Normal ADEQ [facility] Comment on above: Performed By: #### L 503.6030, L100.0100 ####[facility] [address] [place], [place], [id number] POLYCHROMASIA 1+ Normal [facility] Comment on above: Performed By: #### L 503.6030, L100.0100 ####[facility] [address] [place], [address] Calculated total iron bindin g capacityOrdered By: Clau Mcclain on 11-21-2024 Total Iron Binding Capacity 403 ug/dL 250-450 [facility] Colonoscopy Reporton 025 Colonoscopy Report Normal [facility] EGD Reporton 11-21-2024 EGD Report Normal [facility] Eosinophil percentageOrdered By: Clau Mcclain on 11-21-2024 Eosinophils/100 WBC (Bld) 0.6 % 0-5 [facility] Erythrocyte distribution wid th ratioOrdered By: Clau Mcclain on 11-21-2024 Erythrocyte distribution width (RBC) [Ratio] 20.5 % High 11.6-14.6 [facility] Erythrocyte distribution wid th standard deviationOrdered By: Clau Mcclain on 11-21-2024 Erythrocyte distribution width (RBC) [Entitic vol] 54.2 fL High 35.1-43.9 [facility] Erythrocyte distribution width (RBC) [Ratio] 54.2 fl High 35.1-43.9 [facility] Hematocrit Auto (Bld) [Volum e fraction]Ordered By: Clau Mcclain on 11-21-2024 Hematocrit (Bld) [Volume fraction] 34.6 % Low 37-47 [facility] Hemoglobin measurementOrdere d By: Clau Mcclain on 11-21-2024 Hemoglobin (Bld) [Mass/Vol] 10.1 g/dL Low 12.0-15.0 [facility] Immature granulocytes/100 WB C Auto (Bld)Ordered By: Clau Mcclain on 11-21-2024 Immature granulocytes/100 WBC (Bld) 0.200 % 0.0-0.9 [facility] Comment on above: IG% - Immature Granu locytes (promyelocytes, myelocytes and metamyelocytes) > 1% indicates that a LEFT SHIFT is Present. Immunohistochemical Stainson 11-21-2024 Immunohistochemical Stains Normal [facility] Comment on above: Performed By: #### [facility] ####[facility] [address] [place], [place], [id number] Iron (Unsp spec) [Mass/Mass] Ordered By: Clau Mcclain on 11-21-2024 Iron [Mass/Vol] 26 ug/dL Low 50-170 [facility] Iron measurement (mass/mass) Ordered By: Clau Mcclani on 11-21-2024 Iron (Unsp spec) [Mass/Mass] 26 ug/dL Low 50-170 [facility] Iron saturation [Mass fracti on]Ordered By: Clau Mcclain on 11-21-2024 Iron Saturation 6.0 % Low 13-59 [facility] Iron+Iron Binding Capacityon 11-21-2024 Iron [Mass/Vol] 26 ug/dL Low 50-170 [facility] Comment on above: Performed By: #### L 503.6030, L100.0100 ####[facility] [address] [place], [address] IRON SATURATION 6.0 Low 13-59 [facility] Comment on above: Performed By: #### L 503.6030, L100.0100 ####[facility] [address] [place], [address] TIBC 403 ug/dL Normal 250-450 [facility] Comment on above: Performed By: #### L 503.6030, L100.0100 ####[facility] [address] [place], [address] UIBC 377 ug/dL Normal 228-428 [facility] Comment on above: Performed By: #### L 503.6030, L100.0100 ####[facility] [address] [place], [address] Laboratory - Hematology and Cell countsOrdered By: Clau Mcclain on 11-21-2024 Anisocytosis Ql (Bld) 1+ [facility] Lymphocytes Auto (Unsp spec) [#/Vol]Ordered By: Clau Mcclain on 11-21-2024 Lymphocytes (Bld) [#/Vol] 3.12 10*3/uL 0.83-4.51 [facility] Lymphocytes/100 WBC Auto (Un sp spec)Ordered By: Clau Mcclain on 11-21-2024 Lymphocytes/100 WBC (Bld) 37.2 % 19-41 [facility] MCV (mean corpuscular volume ) determinationOrdered By: Clau Mcclain on 11-21-2024 MCV (RBC) [Entitic vol] 74.9 fL Low 81-99 [facility] MR/POSTOP.ANEon 11-21-2024 MR/POSTOP.ANE Normal [facility] MR/YVJVISWH9aa 11-21-2024 MR/POSTOPAN2 Normal [facility] Mean corpuscular hemoglobin (MCH) determinationOrdered By: Clau Mcclain on 11-21-2024 MCH (RBC) [Entitic mass] 21.9 pg Low 27.0-32.0 [facility] Mean corpuscular hemoglobin concentration (MCHC) determinationOrdered By: Clau Mcclain on 11-21-2024 MCHC (RBC) [Mass/Vol] 29.2 g/dL Low 32-36 [facility] Mean platelet volume determi nationOrdered By: Clau Mcclain on 11-21-2024 Platelet mean volume (Bld) [Entitic vol] 8.5 fL 6.2-12.0 [facility] Monocyte percentageOrdered B y: Clau Mcclain on 11-21-2024 Monocytes/100 WBC (Bld) 8.8 % 0-10 [facility] Neutrophil percentageOrdered By: Clau Mcclain on 11-21-2024 Neutrophils/100 WBC (Bld) 52.8 % 47-70 [facility] No Panel InformationOrdered By: Clau Mcclain on 11-21-2024 Unsaturated Iron Binding Capacity 377 ug/dL 228-428 [facility] Nucleated red blood cell per centageOrdered By: Clau Mcclain on 11-21-2024 Nucleated RBC/100 WBC (Bld) [Ratio] 0 % 0-5 [facility] Platelet countOrdered By: Mann Mcclain on 11-21-2024 Platelets (Bld) [#/Vol] 419 10*3/uL 150-450 [facility] Platelet estimateOrdered By: Clau Mcclain on 11-21-2024 Platelets LM [facility]l (Bld) [facility] Platelets LM Ql (Bld)Ordered By: Clau Mcclain on 11-21-2024 Platelet Estimate A [facility] Polychromasia LM Ql (Bld)Ord ered By: Clau Mcclain on 11-21-2024 Polychromasia 1+ [facility] RBC Auto (Bld) [#/Vol]Ordere d By: Clau Mcclain on 11-21-2024 RBC (Bld) [#/Vol] 4.62 10*6/uL 4.2-5.4 [facility] Serum or plasma iron saturat ion measurement (mass fraction)Ordered By: Clau Mcclain on 11-21-2024 Iron saturation [Mass fraction] 6.0 % Low 13-59 [facility] White blood cell (WBC) count Ordered By: Clau Mcclain on 11-21-2024 WBC (Bld) [#/Vol] 8.4 10*3/uL 4.4-11.0 [facility] MR/PAT.ANEon 11-16-2024 MR/PAT.ANE Normal [facility] Office Visit Reporton 2024 Office Visit Report Normal [facility] Absolute lymphocyte countOrd ered By: Clau Mcclain on 10-25-2024 Lymphocytes Auto (Unsp spec) [#/Vol] 3.19 10*3/uL 0.83-4.51 [facility] Absolute neutrophil countOrd ered By: Clau Mcclain on 10-25-2024 Neutrophils (Bld) [#/Vol] 5.4 10*3/uL 2.0-7.7 [facility] Automated lymphocyte count a s percentage of total leukocytesOrdered By: Clau Mcclain on 10-25-2024 Lymphocytes/100 WBC Auto (Unsp spec) 33.6 % 19-41 [facility] BUN/creatinine ratioOrdered By: Ravindra Singh on 10-25-2024 Urea nitrogen/Creatinine [Mass ratio] 26.4 mg/mg High 10- [facility] Basic Metabolic Profile (BMP )on 10-25-2024 Anion gap [Moles/Vol] 8 mmol/L Normal 5-15 [facility] Comment on above: Performed By: #### L 500.2500, L501.9520 ####[facility] [address] [place], [place], [address] BUN/CRE 26.4 RATIO High 06-17 [facility] Comment on above: Performed By: #### L 500.2500, L501.9520 ####[facility] [address] [place], [address] Calcium [Mass/Vol] 9.6 mg/dL Normal 7.6-11.0 [facility] Comment on above: Performed By: #### L 500.2500, L501.9520 ####[facility] [address] [place], [address] Chloride [Moles/Vol] 98 mmol/L Normal 96-108 [facility] Comment on above: Performed By: #### L 500.2500, L501.9520 ####[facility] [address] [place], [address] CO2 [Moles/Vol] 25.6 mmol/L Normal 22.0-29.0 [facility] Comment on above: Performed By: #### L 500.2500, L501.9520 ####[facility] [address] [place], [address] Creatinine [Mass/Vol] 0.6 mg/dL Normal 0.6-1.0 [facility] Comment on above: Performed By: #### L 500.2500, L501.9520 ####[facility] [address] [place], [address] GFR/1.73 sq M.predicted among non-blacks MDRD (S/P/Bld) [Vol rate/Area] 98 mL/min/{1.73_m2} Normal >60 [facility] Comment on above: Result Comment: mL/m in/1.73m2 CKD-EPI Creatinine Equation (2020) Performed By: #### L 500.2500, L501.9520 ####[facility] [address] [place], [address] Glucose [Mass/Vol] 87 mg/dL Normal 70-99 [facility] Comment on above: Performed By: #### L 500.2500, L501.9520 ####[facility] [address] [place], [address] Potassium [Moles/Vol] 4.2 mmol/L Normal 3.3-5.1 [facility] Comment on above: Performed By: #### L 500.2500, L501.9520 ####[facility] [address] [place], [address] Sodium [Moles/Vol] 132 mmol/L Low 133-145 [facility] Comment on above: Performed By: #### L 500.2500, L501.9520 ####[facility] [address] [place], [address] Urea nitrogen [Mass/Vol] 16 mg/dL Normal 4-19 [facility] Comment on above: Performed By: #### L 500.2500, L501.9520 ####[facility] [address] [place], [address] Basophil percentageOrdered B y: Clau Mcclain on 10-25-2024 Basophils/100 WBC (Bld) 0.3 % 0-1 [facility] CBC W/Diff, Automatedon 09-30 Absolute Lymph 3.19 X10 3/uL Normal 0.83-4.51 [facility] Comment on above: Performed By: #### L 100.0100 ####[facility] [address] [place], [address] Absolute Neut 5.4 X10 3/uL Normal 2.0-7.7 [facility] Comment on above: Performed By: #### L 100.0100 ####[facility] [address] [place], [address] Basophils/100 WBC (Bld) 0.3 % Normal 0-1 [facility] Comment on above: Performed By: #### L 100.0100 ####[facility] [address] [place], [address] Eosinophils/100 WBC (Bld) 1.1 % Normal 0-5 [facility] Comment on above: Performed By: #### L 100.0100 ####[facility] [address] [place], [address] Erythrocyte distribution width (RBC) [Ratio] 18.9 % High 11.6-14.6 [facility] Comment on above: Performed By: #### L 100.0100 ####[facility] [address] [place], [address] Hematocrit (Bld) [Volume fraction] 31.5 % Low 37-47 [facility] Comment on above: Performed By: #### L 100.0100 ####[facility] [address] [place], [address] Hemoglobin (Bld) [Mass/Vol] 8.9 g/dL Low 12.0-15.0 [facility] Comment on above: Performed By: #### L 100.0100 ####[facility] [address] [place], [address] IG% 0.500 Normal 0.0-0.9 [facility] Comment on above: Result Comment: IG% - Immature Granulocytes (promyelocytes, myelocytes andmetamyelocytes) > 1% indicates that a LEFT SHIFT is Present. Performed By: #### L 100.0100 ####[facility] [address] [place], [address] Lymphocytes/100 WBC (Bld) 33.6 % Normal 19-41 [facility] Comment on above: Performed By: #### L 100.0100 ####[facility] [address] [place], [address] MCH (RBC) [Entitic mass] 21.8 pg Low 27.0-32.0 [facility] Comment on above: Performed By: #### L 100.0100 ####[facility] [address] [place], [address] MCHC (RBC) [Mass/Vol] 28.3 g/dL Low 32-36 [facility] Comment on above: Performed By: #### L 100.0100 ####[facility] [address] [place], [address] MCV (RBC) [Entitic vol] 77.2 fL Low 81-99 [facility] Comment on above: Performed By: #### L 100.0100 ####[facility] [address] [place], [address] Monocytes/100 WBC (Bld) 8.0 % Normal 0-10 [facility] Comment on above: Performed By: #### L 100.0100 ####[facility] [address] [place], [address] Neutrophils/100 WBC (Bld) 56.5 % Normal 47-70 [facility] Comment on above: Performed By: #### L 100.0100 ####[facility] [address] [place], [address] Nucleated RBC (Bld) [#/Vol] 0 10*3/uL Normal 0-5 [facility] Comment on above: Performed By: #### L 100.0100 ####[facility] [address] [place], [address] Platelet mean volume (Bld) [Entitic vol] 8.4 fL Normal 6.2-12.0 [facility] Comment on above: Performed By: #### L 100.0100 ####[facility] [address] [place], [address] Platelets (Bld) [#/Vol] 395 10*3/uL Normal 150-450 [facility] Comment on above: Performed By: #### L 100.0100 ####[facility] [address] [place], [address] RBC (Bld) [#/Vol] 4.08 10*6/uL Low 4.2-5.4 [facility] Comment on above: Performed By: #### L 100.0100 ####[facility] [address] [place], [place], [phone] RDW SD 52.9 fl High 35.1-43.9 [facility] Comment on above: Performed By: #### L 100.0100 ####[facility] [address] [place], [address] WBC (Bld) [#/Vol] 9.5 10*3/uL Normal 4.4-11.0 [facility] Comment on above: Performed By: #### L 100.0100 ####[facility] [address] [place], [place], [id number] Carbon dioxide measurementOr dered By: Ravindra Singh on 10-25-2024 CO2 [Moles/Vol] 25.6 mmol/L 22.0-29.0 [facility] Cardiology Visit Reporton Cardiology Visit Report Normal [facility] Chloride measurementOrdered By: Ravindra Singh on 10-25-2024 Chloride [Moles/Vol] 98 mmol/L 96-108 [facility] Creatinine [Moles/Vol]Ordere d By: Ravindra Singh on 10-25-2024 Creatinine [Mass/Vol] 0.6 mg/dL 0.6-1.0 [facility] Eosinophil percentageOrdered By: Clau Mcclain on 10-25-2024 Eosinophils/100 WBC (Bld) 1.1 % 0-5 [facility] Erythrocyte distribution wid th ratioOrdered By: Clau Mcclain on 10-25-2024 Erythrocyte distribution width (RBC) [Ratio] 18.9 % High 11.6-14.6 [facility] Erythrocyte distribution wid th standard deviationOrdered By: Clau Mcclain on 10-25-2024 Erythrocyte distribution width (RBC) [Entitic vol] 52.9 fL High 35.1-43.9 [facility] Erythrocyte distribution width (RBC) [Ratio] 52.9 fl High 35.1-43.9 [facility] GFR/1.73 sq M.predicted tanya g non-blacks MDRD (S/P/Bld) [Vol rate/Area]Ordered By: Ravindra Singh on 10-25-2024 Estimated GFR (MDRD) Non-Af Amer 98 >60 [facility] Comment on above: mL/min/1.73m2 CKD-EP I Creatinine Equation (2020) Glomerular filtration rate ( GFR) estimation/1.73 sq m using serum, plasma, or whole bOrdered By: Ravindra Singh on 10-25-2024 GFR/1.73 sq M.predicted among non-blacks MDRD (S/P/Bld) [Vol rate/Area] 98 mL/min/{1.73_m2} >60 [facility] Comment on above: mL/min/1.73m2 CKD-EP I Creatinine Equation (2020) Hematocrit Auto (Bld) [Volum e fraction]Ordered By: Clau Mcclain on 10-25-2024 Hematocrit (Bld) [Volume fraction] 31.5 % Low 37-47 [facility] Hemoglobin measurementOrdere d By: Clau Mcclain on 10-25-2024 Hemoglobin (Bld) [Mass/Vol] 8.9 g/dL Low 12.0-15.0 [facility] Immature granulocytes/100 WB C Auto (Bld)Ordered By: Clau Mcclain on 10-25-2024 Immature granulocytes/100 WBC (Bld) 0.500 % 0.0-0.9 [facility] Comment on above: IG% - Immature Granu locytes (promyelocytes, myelocytes and metamyelocytes) > 1% indicates that a LEFT SHIFT is Present. Lymphocytes Auto (Unsp spec) [#/Vol]Ordered By: Clau Mcclain on 10-25-2024 Lymphocytes (Bld) [#/Vol] 3.19 10*3/uL 0.83-4.51 [facility] Lymphocytes/100 WBC Auto (Un sp spec)Ordered By: Clau Mcclain on 10-25-2024 Lymphocytes/100 WBC (Bld) 33.6 % 19-41 [facility] MCV (mean corpuscular volume ) determinationOrdered By: Clua Mcclain on 10-25-2024 MCV (RBC) [Entitic vol] 77.2 fL Low 81-99 [facility] Mean corpuscular hemoglobin (MCH) determinationOrdered By: Clau Mcclain on 10-25-2024 MCH (RBC) [Entitic mass] 21.8 pg Low 27.0-32.0 [facility] Mean corpuscular hemoglobin concentration (MCHC) determinationOrdered By: Clau Mcclain on 10-25-2024 MCHC (RBC) [Mass/Vol] 28.3 g/dL Low 32-36 [facility] Mean platelet volume determi nationOrdered By: Clau Mcclain on 10-25-2024 Platelet mean volume (Bld) [Entitic vol] 8.4 fL 6.2-12.0 [facility] Monocyte percentageOrdered B y: Clau Mcclain on 10-25-2024 Monocytes/100 WBC (Bld) 8.0 % 0-10 [facility] Neutrophil percentageOrdered By: Clau Mcclain on 10-25-2024 Neutrophils/100 WBC (Bld) 56.5 % 47-70 [facility] Nucleated red blood cell per centageOrdered By: Clau Mcclain on 10-25-2024 Nucleated RBC/100 WBC (Bld) [Ratio] 0 % 0-5 [facility] Platelet countOrdered By: Mann Mcclain on 10-25-2024 Platelets (Bld) [#/Vol] 395 10*3/uL 150-450 [facility] RBC Auto (Bld) [#/Vol]Ordere d By: Clau Mcclain on 10-25-2024 RBC (Bld) [#/Vol] 4.08 10*6/uL Low 4.2-5.4 [facility] Serum glucose measurement (m ass/volume)Ordered By: Ravindra Singh on 10-25-2024 Glucose [Mass/Vol] 87 mg/dL 70-99 [facility] Serum or plasma anion gap de termination (moles/volume)Ordered By: Ravindra Singh on 10-25-2024 Anion gap [Moles/Vol] 8 mmol/L 5-15 [facility] Serum or plasma calcium zara urement (mass/volume)Ordered By: Ravindrapepe Singh on 10-25-2024 Calcium [Mass/Vol] 9.6 mg/dL 7.6-11.0 [facility] Serum or plasma creatinine m easurement (moles/volume)Ordered By: Ravindrapepe Singh on 10-25-2024 Creatinine [Moles/Vol] 0.6 mg/dL 0.6-1.0 [facility] Serum or plasma potassium me asurementOrdered By: Ravindrapepe Singh on 10-25-2024 Potassium [Moles/Vol] 4.2 mmol/L 3.3-5.1 [facility] Serum or plasma sodium measu rement (moles/volume)Ordered By: Ravindra Francisco on 10-25-2024 Sodium [Moles/Vol] 132 mmol/L Low 133-145 [facility] Serum or plasma urea nitroge n measurement (mass/volume)Ordered By: Ravindra Francisco on 10-25-2024 Urea nitrogen [Mass/Vol] 16 mg/dL 4-19 [facility] TSH DL <= 0.005 mIU/L QnOrde red By: Ravindra Francisco on 10-25-2024 Thyroid Stimulating Hormone (TSH) 1.800 uIU/mL 0.300-4.200 [facility] TSH Qn 1.800 uIU/mL 0.300-4.200 [facility] Thyroid Stim Hormone (TSH)on 10-25-2024 TSH 1.800 uIU/mL Normal 0.300-4.200 [facility] Comment on above: Performed By: #### L 500.2500, L501.9520 ####[facility] [address] [place], [address] White blood cell (WBC) count Ordered By: Clau Mcclain on 10-25-2024 WBC (Bld) [#/Vol] 9.5 10*3/uL 4.4-11.0 [facility] CNPLuba 10-10-2024 [facility]N [facility] BENITAW[facility] ([id number]) 1955 F Date Time Provider Department 10/10/24 GÉNESIS CARLTON During your visit today, we recorded the following information about you: Shanice Gruber 10/10/2024 12:10 PM Signed Pt requesting lab orders, Pt ph [phone] Shanice Gruber 10/16/2024 12:43 PM Signed Pt would like to go 10/19/23 to get blood work done, Pt ph [phone] Jc Puri 11/02/2024 1:38 PM Signed Patient called about lab work, has not seen Dr. Carlton since April 2023. Offered in person and virtual appointment and she denied both. Scheduled her with Isabel Ceron since she lives in [place]. Allergies As of Date: 10/10/2024 Noted Allergy [...] week. - BUTRANS 5 mcg/hour - Ipratropium [place] (ATROVENT) 0.03 % nasal spray - triamcinolone [...] TOE [M20 (more content not included)... Normal [facility] Absolute lymphocyte countOrd ered By: Tory Hewitt on 10-09-2024 Lymphocytes Auto (Unsp spec) [#/Vol] 2.80 10*3/uL 0.83-4.51 [facility] Absolute neutrophil countOrd ered By: Tory Hewitt on 10-09-2024 Neutrophils (Bld) [#/Vol] 10.4 10*3/uL High 2.0-7.7 [facility] Automated lymphocyte count a s percentage of total leukocytesOrdered By: Tory Hewitt on 10-09-2024 Lymphocytes/100 WBC Auto (Unsp spec) 19.4 % 19-41 [facility] Basophil percentageOrdered B y: [facility] Marcelina on 10-09-2024 Basophils/100 WBC (Bld) 0.3 % 0-1 [facility] C-reactive protein measureme nt by high sensitivity methodOrdered By: Torywanda GoMarcelina on 10-09-2024 C-Reactive Protein Extended Range 5.12 mg/L High 0.0-3.0 [facility] Comment on above: C-Reactive Protein ( CRP) provides useful information for thediagnosis, therapy and monitoring of inflammatory processesand associated diseases. For the evaluation of Relative Riskfor Cardiovascular Disease, a High Sensitivity CRP (HSCRP)should be ordered. C-reactive protein measurement by high sensitivity method 5.12 mg/L High 0.0-3.0 [facility] Comment on above: C-Reactive Protein ( CRP) provides useful information for thediagnosis, therapy and monitoring of inflammatory processesand associated diseases. For the evaluation of Relative Riskfor Cardiovascular Disease, a High Sensitivity CRP (HSCRP)should be ordered. CBC W/Diff, Automatedon 09-29 Absolute Lymph 2.80 X10 3/uL Normal 0.83-4.51 [facility] Comment on above: Performed By: #### L 501.6710, L100.0100, L101.9900 ####[facility] [address] [place], [address] Absolute Neut 10.4 X10 3/uL High 2.0-7.7 [facility] Comment on above: Performed By: #### L 501.6710, L100.0100, L101.9900 ####[facility] [address] [place], [address] Basophils/100 WBC (Bld) 0.3 % Normal 0-1 [facility] Comment on above: Performed By: #### L 501.6710, L100.0100, L101.9900 ####[facility] [address] [place], [address] Eosinophils/100 WBC (Bld) 0.1 % Normal 0-5 [facility] Comment on above: Performed By: #### L 501.6710, L100.0100, L101.9900 ####[facility] [address] [place], [address] Erythrocyte distribution width (RBC) [Ratio] 18.1 % High 11.6-14.6 [facility] Comment on above: Performed By: #### L 501.6710, L100.0100, L101.9900 ####[facility] [address] [place], [address] Hematocrit (Bld) [Volume fraction] 35.0 % Low 37-47 [facility] Comment on above: Performed By: #### L 501.6710, L100.0100, L101.9900 ####[facility] [address] [place], [address] Hemoglobin (Bld) [Mass/Vol] 9.9 g/dL Low 12.0-15.0 [facility] Comment on above: Performed By: #### L 501.6710, L100.0100, L101.9900 ####[facility] [address] [place], [address] IG% 0.600 Normal 0.0-0.9 [facility] Comment on above: Result Comment: IG% - Immature Granulocytes (promyelocytes, myelocytes andmetamyelocytes) > 1% indicates that a LEFT SHIFT is Present. Performed By: #### L 501.6710, L100.0100, L101.9900 ####[facility] [address] [place], [address] Lymphocytes/100 WBC (Bld) 19.4 % Normal 19-41 [facility] Comment on above: Performed By: #### L 501.6710, L100.0100, L101.9900 ####[facility] [address] [place], [address] MCH (RBC) [Entitic mass] 21.7 pg Low 27.0-32.0 [facility] Comment on above: Performed By: #### L 501.6710, L100.0100, L101.9900 ####[facility] [address] [place], [address] MCHC (RBC) [Mass/Vol] 28.3 g/dL Low 32-36 [facility] Comment on above: Performed By: #### L 501.6710, L100.0100, L101.9900 ####[facility] [address] [place], [address] MCV (RBC) [Entitic vol] 76.8 fL Low 81-99 [facility] Comment on above: Performed By: #### L 501.6710, L100.0100, L101.9900 ####[facility] [address] [place], [address] Monocytes/100 WBC (Bld) 7.8 % Normal 0-10 [facility] Comment on above: Performed By: #### L 501.6710, L100.0100, L101.9900 ####[facility] [address] [place], [address] Neutrophils/100 WBC (Bld) 71.8 % High 47-70 [facility] Comment on above: Performed By: #### L 501.6710, L100.0100, L101.9900 ####[facility] [address] [place], [address] Nucleated RBC (Bld) [#/Vol] 0 10*3/uL Normal 0-5 [facility] Comment on above: Performed By: #### L 501.6710, L100.0100, L101.9900 ####[facility] [address] [place], [address] Platelet mean volume (Bld) [Entitic vol] 8.2 fL Normal 6.2-12.0 [facility] Comment on above: Performed By: #### L 501.6710, L100.0100, L101.9900 ####[facility] [address] [place], [address] Platelets (Bld) [#/Vol] 512 10*3/uL High 150-450 [facility] Comment on above: Performed By: #### L 501.6710, L100.0100, L101.9900 ####[facility] [address] [place], [address] RBC (Bld) [#/Vol] 4.56 10*6/uL Normal 4.2-5.4 [facility] Comment on above: Performed By: #### L 501.6710, L100.0100, L101.9900 ####[facility] [address] [place], [address] RDW SD 50.1 fl High 35.1-43.9 [facility] Comment on above: Performed By: #### L 501.6710, L100.0100, L101.9900 ####[facility] [address] [place], [address] WBC (Bld) [#/Vol] 14.4 10*3/uL High 4.4-11.0 [facility] Comment on above: Performed By: #### L 501.6710, L100.0100, L101.9900 ####[facility] [address] [place], [address] CRPon 10-09-2024 C-REACTIVE PROT 5.12 mg/L High 0.0-3.0 [facility] Comment on above: Result Comment: C-Re active Protein (CRP) provides useful information for thediagnosis, therapy and monitoring of inflammatory processesand associated diseases. For the evaluation of Relative Riskfor Cardiovascular Disease, a High Sensitivity CRP (HSCRP)should be ordered. Performed By: #### L 501.6710, L100.0100, L101.9900 ####[facility] [address] [place], [place], [address] Cerv Spine 4 or 5 Viewson Cerv Spine 4 or 5 Views Normal [facility] Eosinophil percentageOrdered By: [facility]ina on 10-09-2024 Eosinophils/100 WBC (Bld) 0.1 % 0-5 [facility] Erythrocyte Sed Rateon 10-09 SED RATE 77 mm/hr High 0-30 [facility] Comment on above: Performed By: #### L 501.6710, L100.0100, L101.9900 ####[facility] [address] [place], [place], [id number] Erythrocyte distribution wid th ratioOrdered By: [facility] Marcelina on 10-09-2024 Erythrocyte distribution width (RBC) [Ratio] 18.1 % High 11.6-14.6 [facility] Erythrocyte distribution wid th standard deviationOrdered By: [facility] on 10-09-2024 Erythrocyte distribution width (RBC) [Entitic vol] 50.1 fL High 35.1-43.9 [facility] Erythrocyte distribution width (RBC) [Ratio] 50.1 fl High 35.1-43.9 [facility] Erythrocyte sedimentation ra teOrdered By: [facility] on 10-09-2024 ESR (Bld) [Velocity] 77 mm/h High 0-30 [facility] Hematocrit Auto (Bld) [Volum e fraction]Ordered By: [facility] on 10-09-2024 Hematocrit (Bld) [Volume fraction] 35.0 % Low 37-47 [facility] Hemoglobin measurementOrdere d By: [facility] on 10-09-2024 Hemoglobin (Bld) [Mass/Vol] 9.9 g/dL Low 12.0-15.0 [facility] Immature granulocytes/100 WB C Auto (Bld)Ordered By: Tory Hewitt on 10-09-2024 Immature granulocytes/100 WBC (Bld) 0.600 % 0.0-0.9 [facility] Comment on above: IG% - Immature Granu locytes (promyelocytes, myelocytes and metamyelocytes) > 1% indicates that a LEFT SHIFT is Present. Lymphocytes Auto (Unsp spec) [#/Vol]Ordered By: Tory Hewitt on 10-09-2024 Lymphocytes (Bld) [#/Vol] 2.80 10*3/uL 0.83-4.51 [facility] Lymphocytes/100 WBC Auto (Un sp spec)Ordered By: Tory Hewitt on 10-09-2024 Lymphocytes/100 WBC (Bld) 19.4 % 19-41 [facility] MCV (mean corpuscular volume ) determinationOrdered By: Tory Hewitt on 10-09-2024 MCV (RBC) [Entitic vol] 76.8 fL Low 81-99 [facility] Mean corpuscular hemoglobin (MCH) determinationOrdered By: [facility]ina on 10-09-2024 MCH (RBC) [Entitic mass] 21.7 pg Low 27.0-32.0 [facility] Mean corpuscular hemoglobin concentration (MCHC) determinationOrdered By: Torywanda Hewitt on 10-09-2024 MCHC (RBC) [Mass/Vol] 28.3 g/dL Low 32-36 [facility] Mean platelet volume determi nationOrdered By: Tory Hewitt on 10-09-2024 Platelet mean volume (Bld) [Entitic vol] 8.2 fL 6.2-12.0 [facility] Monocyte percentageOrdered B y: Tory Hewitt on 10-09-2024 Monocytes/100 WBC (Bld) 7.8 % 0-10 [facility] Neutrophil percentageOrdered By: Tory Hewitt on 10-09-2024 Neutrophils/100 WBC (Bld) 71.8 % High 47-70 [facility] Nucleated red blood cell per centageOrdered By: Tory Hewitt on 10-09-2024 Nucleated RBC/100 WBC (Bld) [Ratio] 0 % 0-5 [facility] Platelet countOrdered By: Jossue braun Marcelina on 10-09-2024 Platelets (Bld) [#/Vol] 512 10*3/uL High 150-450 [facility] RBC Auto (Bld) [#/Vol]Ordere d By: Tory Marcelina on 10-09-2024 RBC (Bld) [#/Vol] 4.56 10*6/uL 4.2-5.4 [facility] White blood cell (WBC) count Ordered By: Tory Marcelina on 10-09-2024 WBC (Bld) [#/Vol] 14.4 10*3/uL High 4.4-11.0 [facility] 12 Lead EKGon 09-29-2024 12 Lead EKG Normal [facility] Absolute lymphocyte countOrd ered By: Jani Posey on 09-29-2024 Lymphocytes Auto (Unsp spec) [#/Vol] 2.38 10*3/uL 0.83-4.51 [facility] Absolute neutrophil countOrd ered By: Jani Posey on 09-29-2024 Neutrophils (Bld) [#/Vol] 7.6 10*3/uL 2.0-7.7 [facility] Albumin to globulin ratioOrd ered By: Jani Posey on 09-29-2024 Albumin/Globulin [Mass ratio] 0.6 {ratio} Low 0.9-2.4 [facility] Ammoniaon 09-29-2024 Ammonia (P) [Moles/Vol] 18.0 umol/L Normal 11-32 [facility] Comment on above: Performed By: #### L 503.5510 ####[facility] [address] [place], [address] Automated lymphocyte count a s percentage of total leukocytesOrdered By: Jani Posey on 09-29-2024 Lymphocytes/100 WBC Auto (Unsp spec) 21.9 % 19-41 [facility] Basophil percentageOrdered B y: Jani Posey on 09-29-2024 Basophils/100 WBC (Bld) 0.2 % 0-1 [facility] Bilirubin, totalOrdered By: Jani Posey on 09-29-2024 Bilirubin [Mass/Vol] 0.20 mg/dL 0.20-1.00 [facility] Comment on above: For patients on eltr ombopag therapy, use of Dimension [place] TBIL is not recommended. Blood urea nitrogen (BUN)/cr eatinine ratioOrdered By: Jani Posey on 09-29-2024 Urea nitrogen/Creatinine [Mass ratio] 29.1 mg/mg High 10-20 [facility] CBC W/Diff, Automatedon Absolute Lymph 2.38 X10 3/uL Normal 0.83-4.51 [facility] Comment on above: Performed By: #### L 501.4020, L500.4050, L100.0100 ####[facility] [address] [place], [address] Absolute Neut 7.6 X10 3/uL Normal 2.0-7.7 [facility] Comment on above: Performed By: #### L 501.4020, L500.4050, L100.0100 ####[facility] [address] [place], [address] Basophils/100 WBC (Bld) 0.2 % Normal 0-1 [facility] Comment on above: Performed By: #### L 501.4020, L500.4050, L100.0100 ####[facility] [address] [place], [address] Eosinophils/100 WBC (Bld) 0.6 % Normal 0-5 [facility] Comment on above: Performed By: #### L 501.4020, L500.4050, L100.0100 ####[facility] [address] [place], [address] Erythrocyte distribution width (RBC) [Ratio] 18.3 % High 11.6-14.6 [facility] Comment on above: Performed By: #### L 501.4020, L500.4050, L100.0100 ####[facility] [address] [place], [address] Hematocrit (Bld) [Volume fraction] 30.5 % Low 37-47 [facility] Comment on above: Performed By: #### L 501.4020, L500.4050, L100.0100 ####[facility] [address] [place], [address] Hemoglobin (Bld) [Mass/Vol] 8.7 g/dL Low 12.0-15.0 [facility] Comment on above: Performed By: #### L 501.4020, L500.4050, L100.0100 ####[facility] [address] [place], [address] IG% 0.400 Normal 0.0-0.9 [facility] Comment on above: Result Comment: IG% - Immature Granulocytes (promyelocytes, myelocytes andmetamyelocytes) > 1% indicates that a LEFT SHIFT is Present. Performed By: #### L 501.4020, L500.4050, L100.0100 ####[facility] [address] [place], [address] Lymphocytes/100 WBC (Bld) 21.9 % Normal 19-41 [facility] Comment on above: Performed By: #### L 501.4020, L500.4050, L100.0100 ####[facility] [address] [place], [address] MCH (RBC) [Entitic mass] 22.8 pg Low 27.0-32.0 [facility] Comment on above: Performed By: #### L 501.4020, L500.4050, L100.0100 ####[facility] [address] [place], [address] MCHC (RBC) [Mass/Vol] 28.5 g/dL Low 32-36 [facility] Comment on above: Performed By: #### L 501.4020, L500.4050, L100.0100 ####[facility] [address] [place], [address] MCV (RBC) [Entitic vol] 79.8 fL Low 81-99 [facility] Comment on above: Performed By: #### L 501.4020, L500.4050, L100.0100 ####[facility] [address] [place], [address] Monocytes/100 WBC (Bld) 6.9 % Normal 0-10 [facility] Comment on above: Performed By: #### L 501.4020, L500.4050, L100.0100 ####[facility] [address] [place], [address] Neutrophils/100 WBC (Bld) 70.0 % Normal 47-70 [facility] Comment on above: Performed By: #### L 501.4020, L500.4050, L100.0100 ####[facility] [address] [place], [address] Nucleated RBC (Bld) [#/Vol] 0 10*3/uL Normal 0-5 [facility] Comment on above: Performed By: #### L 501.4020, L500.4050, L100.0100 ####[facility] [address] [place], [address] Platelet mean volume (Bld) [Entitic vol] 8.5 fL Normal 6.2-12.0 [facility] Comment on above: Performed By: #### L 501.4020, L500.4050, L100.0100 ####[facility] [address] [place], [address] Platelets (Bld) [#/Vol] 398 10*3/uL Normal 150-450 [facility] Comment on above: Performed By: #### L 501.4020, L500.4050, L100.0100 ####[facility] [address] [place], [address] RBC (Bld) [#/Vol] 3.82 10*6/uL Low 4.2-5.4 [facility] Comment on above: Performed By: #### L 501.4020, L500.4050, L100.0100 ####[facility] [address] [place], [address] RDW SD 53.3 fl High 35.1-43.9 [facility] Comment on above: Performed By: #### L 501.4020, L500.4050, L100.0100 ####[facility] [address] [place], [address] WBC (Bld) [#/Vol] 10.9 10*3/uL Normal 4.4-11.0 [facility] Comment on above: Performed By: #### L 501.4020, L500.4050, L100.0100 ####[facility] [address] [place], [address] CTA Head AND Neck W/ Contras ton 09-29-2024 CTA Head AND Neck W/ Contrast Normal [facility] Carbon dioxide measurementOr dered By: Jani Posey on 09-29-2024 CO2 [Moles/Vol] 23.0 mmol/L 21.0-32.0 [facility] Chest 1 View (Portable)on Chest 1 View (Portable) Normal [facility] Chloride measurementOrdered By: Jani Posey on 09-29-2024 Chloride [Moles/Vol] 102 mmol/L 98-107 [facility] Comprehensive Metabolic Prof ilon 09-29-2024 Albumin [Mass/Vol] 2.9 g/dL Low 3.2-5.0 [facility] Comment on above: Order Comment: 'TROP ' Serial specimen #1, #2 or #3: 1 Performed By: #### L 501.4020, L500.4050, L100.0100 ####[facility] [address] [place], [address] Albumin/Globulin [Mass ratio] 0.6 {ratio} Low 0.9-2.4 [facility] Comment on above: Order Comment: 'TROP ' Serial specimen #1, #2 or #3: 1 Performed By: #### L 501.4020, L500.4050, L100.0100 ####[facility] [address] [place], [address] ALK P 89 U/L Normal 45-117 [facility] Comment on above: Order Comment: 'TROP ' Serial specimen #1, #2 or #3: 1 Performed By: #### L 501.4020, L500.4050, L100.0100 ####[facility] [address] [place], [address] ALT [Catalytic activity/Vol] 14 U/L Normal 13-56 [facility] Comment on above: Order Comment: 'TROP ' Serial specimen #1, #2 or #3: 1 Performed By: #### L 501.4020, L500.4050, L100.0100 ####[facility] [address] [place], [address] AST [Catalytic activity/Vol] 14 U/L Low 15-37 [facility] Comment on above: Order Comment: 'TROP ' Serial specimen #1, #2 or #3: 1 Performed By: #### L 501.4020, L500.4050, L100.0100 ####[facility] [address] [place], [address] Bilirubin [Mass/Vol] 0.20 mg/dL Normal 0.20-1.00 [facility] Comment on above: Order Comment: 'TROP ' Serial specimen #1, #2 or #3: 1 Result Comment: For patients on eltrombopag therapy, use of Dimension [place] TBIL is not recommended. Performed By: #### L 501.4020, L500.4050, L100.0100 ####[facility] [address] [place], [address] BUN/CRE 29.1 RATIO High 10-20 [facility] Comment on above: Order Comment: 'TROP ' Serial specimen #1, #2 or #3: 1 Performed By: #### L 501.4020, L500.4050, L100.0100 ####[facility] [address] [place], [address] CA,Total 8.8 mg/dL Normal 8.5-10.1 [facility] Comment on above: Order Comment: 'TROP ' Serial specimen #1, #2 or #3: 1 Performed By: #### L 501.4020, L500.4050, L100.0100 ####[facility] [address] [place], [address] Chloride [Moles/Vol] 102 mmol/L Normal 98-107 [facility] Comment on above: Order Comment: 'TROP ' Serial specimen #1, #2 or #3: 1 Performed By: #### L 501.4020, L500.4050, L100.0100 ####[facility] [address] [place], [address] CO2 [Moles/Vol] 23.0 mmol/L Normal 21.0-32.0 [facility] Comment on above: Order Comment: 'TROP ' Serial specimen #1, #2 or #3: 1 Performed By: #### L 501.4020, L500.4050, L100.0100 ####[facility] [address] [place], [address] Creatinine [Mass/Vol] 0.76 mg/dL Normal 0.55-1.02 [facility] Comment on above: Order Comment: 'TROP ' Serial specimen #1, #2 or #3: 1 Result Comment: The validity of the calculated GFR GFRAA in patients over70 years has not been determined. Clinical correlation isessential. Performed By: #### L 501.4020, L500.4050, L100.0100 ####[facility] [address] [place], [address] ECRCL 77.71 ml/min Normal [facility] Comment on above: Order Comment: 'TROP ' Serial specimen #1, #2 or #3: 1 Performed By: #### L 501.4020, L500.4050, L100.0100 ####[facility] [address] [place], [address] EST GFR - AA 98 mL/min Normal >60 [facility] Comment on above: Order Comment: 'TROP ' Serial specimen #1, #2 or #3: 1 Result Comment: Afri can Mal[place]ian GFR Calc Performed By: #### L 501.4020, L500.4050, L100.0100 ####[facility] [address] [place], [address] GAP 8 Normal 5-15 [facility] Comment on above: Order Comment: 'TROP ' Serial specimen #1, #2 or #3: 1 Performed By: #### L 501.4020, L500.4050, L100.0100 ####[facility] [address] [place], [address] GFR/1.73 sq M.predicted among non-blacks MDRD (S/P/Bld) [Vol rate/Area] 81 mL/min/{1.73_m2} Normal >60 [facility] Comment on above: Order Comment: 'TROP ' Serial specimen #1, #2 or #3: 1 Result Comment: Non- GFR Calc Performed By: #### L 501.4020, L500.4050, L100.0100 ####[facility] [address] [place], [address] Globulin (S) [Mass/Vol] 4.6 g/dL High 2.2-4.2 [facility] Comment on above: Order Comment: 'TROP ' Serial specimen #1, #2 or #3: 1 Performed By: #### L 501.4020, L500.4050, L100.0100 ####[facility] [address] [place], [address] Glucose [Mass/Vol] 172 mg/dL High 74-106 [facility] Comment on above: Order Comment: 'TROP ' Serial specimen #1, #2 or #3: 1 Result Comment: Fast ing Glucose result greater than or equal to 126 mg/dLsuggests DIABETES MELLITUS per A.D.A. criteria. Performed By: #### L 501.4020, L500.4050, L100.0100 ####[facility] [address] [place], [address] Potassium [Moles/Vol] 4.2 mmol/L Normal 3.5-5.1 [facility] Comment on above: Order Comment: 'TROP ' Serial specimen #1, #2 or #3: 1 Performed By: #### L 501.4020, L500.4050, L100.0100 ####[facility] [address] [place], [address] Sodium [Moles/Vol] 132 mmol/L Low 136-145 [facility] Comment on above: Order Comment: 'TROP ' Serial specimen #1, #2 or #3: 1 Performed By: #### L 501.4020, L500.4050, L100.0100 ####[facility] [address] [place], [address] T PROT 7.5 g/dL Normal 6.4-8.2 [facility] Comment on above: Order Comment: 'TROP ' Serial specimen #1, #2 or #3: 1 Performed By: #### L 501.4020, L500.4050, L100.0100 ####[facility] [address] [place], [address] Urea nitrogen [Mass/Vol] 22 mg/dL High 7-18 [facility] Comment on above: Order Comment: 'TROP ' Serial specimen #1, #2 or #3: 1 Performed By: #### L 501.4020, L500.4050, L100.0100 ####[facility] [address] [place], [address] Emergency Department Summary on 09-29-2024 Emergency Department Summary Normal [facility] Eosinophil percentageOrdered By: Jani Posey on 09-29-2024 Eosinophils/100 WBC (Bld) 0.6 % 0-5 [facility] Erythrocyte distribution wid th ratioOrdered By: Jani Posey on 09-29-2024 Erythrocyte distribution width (RBC) [Ratio] 18.3 % High 11.6-14.6 [facility] Erythrocyte distribution wid th standard deviationOrdered By: Jani Posey on 09-29-2024 Erythrocyte distribution width (RBC) [Entitic vol] 53.3 fL High 35.1-43.9 [facility] Erythrocyte distribution width (RBC) [Ratio] 53.3 fl High 35.1-43.9 [facility] Estimated glomerular filtrat ion rate (GFR) AmericanOrdered By: Jani Posey on 09-29-2024 Estimated GFR (MDRD) Amer 98 mL/min >60 [facility] Comment on above: GFR Calc Estimation of creatinine saniya aranceOrdered By: Jani Posey on 09-29-2024 Estimated Creatinine Clearance Calc 77.71 ml/min [facility] Glomerular filtration rate ( GFR) estimationOrdered By: Jani Posey on 09-29-2024 Estimated GFR (MDRD) Non-Af Amer 81 mL/min >60 [facility] Comment on above: Non- GFR Calc GFR/1.73 sq M.predicted among non-blacks MDRD (S/P/Bld) [Vol rate/Area] 81 mL/min/{1.73_m2} >60 [facility] Comment on above: Non- GFR Calc Glucose measurementOrdered B y: Jani Posey on 09-29-2024 Glucose [Mass/Vol] 172 mg/dL High 74-106 [facility] Comment on above: Fasting Glucose resu lt greater than or equal to 126 mg/dL suggests DIABETES MELLITUS per A.D.A. criteria. Hematocrit Auto (Bld) [Volum e fraction]Ordered By: Jani Poesy on 09-29-2024 Hematocrit (Bld) [Volume fraction] 30.5 % Low 37-47 [facility] Hemoglobin measurementOrdere d By: Jani Posey on 09-29-2024 Hemoglobin (Bld) [Mass/Vol] 8.7 g/dL Low 12.0-15.0 [facility] Immature granulocytes/100 WB C Auto (Bld)Ordered By: Jani Posey on 09-29-2024 Immature granulocytes/100 WBC (Bld) 0.400 % 0.0-0.9 [facility] Comment on above: IG% - Immature Granu locytes (promyelocytes, myelocytes and metamyelocytes) > 1% indicates that a LEFT SHIFT is Present. L501.4020on 09-29-2024 TROPONIN-I HS 6 pg/mL Normal 3.0-54.0 [facility] Comment on above: Order Comment: 'TROP ' Serial specimen #1, #2 or #3: 1 Result Comment: Graciela cohen Note: New Test Units and Gender Specific Reference Ranges. For more information see Policy Stat Procedure [place] High Sensitivity Troponin (TNIH) and attachments. Performed By: #### L 501.4020, L500.4050, L100.0100 ####[facility] [address] [place], [place], [id number] Laboratory - Chemistry and C hemistry - challengeOrdered By: Jani Posey on 09-29-2024 AST [Catalytic activity/Vol] 14 U/L Low 15-37 [facility] Lymphocytes Auto (Unsp spec) [#/Vol]Ordered By: Jani Posey on 09-29-2024 Lymphocytes (Bld) [#/Vol] 2.38 10*3/uL 0.83-4.51 [facility] Lymphocytes/100 WBC Auto (Un sp spec)Ordered By: Jani Posey on 09-29-2024 Lymphocytes/100 WBC (Bld) 21.9 % 19-41 [facility] MCV (mean corpuscular volume ) determinationOrdered By: Jani Posey on 09-29-2024 MCV (RBC) [Entitic vol] 79.8 fL Low 81-99 [facility] Mean corpuscular hemoglobin (MCH) determinationOrdered By: Jani Posey on 09-29-2024 MCH (RBC) [Entitic mass] 22.8 pg Low 27.0-32.0 [facility] Mean corpuscular hemoglobin concentration (MCHC) determinationOrdered By: Jani Posey on 09-29-2024 MCHC (RBC) [Mass/Vol] 28.5 g/dL Low 32-36 [facility] Mean platelet volume determi nationOrdered By: Jani Posey on 09-29-2024 Platelet mean volume (Bld) [Entitic vol] 8.5 fL 6.2-12.0 [facility] Monocyte percentageOrdered B y: Jani Posey on 09-29-2024 Monocytes/100 WBC (Bld) 6.9 % 0-10 [facility] Neutrophil percentageOrdered By: Jani Posey on 09-29-2024 Neutrophils/100 WBC (Bld) 70.0 % 47-70 [facility] Nucleated red blood cell per centageOrdered By: Jani Posey on 09-29-2024 Nucleated RBC/100 WBC (Bld) [Ratio] 0 % 0-5 [facility] Platelet countOrdered By: Pa ul Kalpesh on 09-29-2024 Platelets (Bld) [#/Vol] 398 10*3/uL 150-450 [facility] Potassium measurementOrdered By: Jani Posey on 09-29-2024 Potassium [Moles/Vol] 4.2 mmol/L 3.5-5.1 [facility] RBC Auto (Bld) [#/Vol]Ordere d By: Jani Posey on 09-29-2024 RBC (Bld) [#/Vol] 3.82 10*6/uL Low 4.2-5.4 [facility] Serum anion gap measurementO rdered By: Jani Posey on 09-29-2024 Anion gap [Moles/Vol] 8 mmol/L 5-15 [facility] Serum globulin measurementOr dered By: Jani Posey on 09-29-2024 Globulin (S) [Mass/Vol] 4.6 g/dL High 2.2-4.2 [facility] Serum or plasma alanine han otransferase (ALT) measurementOrdered By: Jani Posey on 09-29-2024 ALT [Catalytic activity/Vol] 14 U/L 13-56 [facility] Serum or plasma albumin zara urement (mass/volume)Ordered By: Jani Posey on 09-29-2024 Albumin [Mass/Vol] 2.9 g/dL Low 3.2-5.0 [facility] Serum or plasma alkaline alvarez sphatase measurementOrdered By: Jani Posey on 09-29-2024 ALP [Catalytic activity/Vol] 89 U/L 45-117 [facility] Serum or plasma calcium zara urement (mass/volume)Ordered By: Jani Posey on 09-29-2024 Calcium [Mass/Vol] 8.8 mg/dL 8.5-10.1 [facility] Serum or plasma creatinine m easurement (mass/volume)Ordered By: Jani Posey on 09-29-2024 Creatinine [Mass/Vol] 0.76 mg/dL 0.55-1.02 [facility] Comment on above: The validity of the calculated GFR & GFRAA in patients over 70 years has not been determined. Clinical correlation is essential. Serum or plasma urea nitroge n measurement (mass/volume)Ordered By: Jani Posey on 09-29-2024 Urea nitrogen [Mass/Vol] 22 mg/dL High 7-18 [facility] Sodium levelOrdered By: Jani Posey on 09-29-2024 Sodium [Moles/Vol] 132 mmol/L Low 136-145 [facility] Total proteinOrdered By: Michelle Posey on 09-29-2024 Protein [Mass/Vol] 7.5 g/dL 6.4-8.2 [facility] Troponin IOrdered By: Jani jacobs on 09-29-2024 Troponin I 6 pg/mL 3.0-54.0 [facility] Comment on above: Please Note: New Radhika t Units and Gender Specific Reference Ranges. For more information see Policy Stat Procedure [place] High Sensitivity Troponin (TNIH) and attachments. Troponin I High Sensitivity 6 pg/mL 3.0-54.0 [facility] Comment on above: Please Note: New Radhika t Units and Gender Specific Reference Ranges. For more information see Policy Stat Procedure [place] High Sensitivity Troponin (TNIH) and attachments. Venous blood ammonia measure mentOrdered By: Jani Posey on 09-29-2024 Ammonia (P) [Moles/Vol] 18.0 umol/L [facility] White blood cell (WBC) count Ordered By: Jani Posey on 09-29-2024 WBC (Bld) [#/Vol] 10.9 10*3/uL 4.4-11.0 [facility] Emergency Department Summary on 09-28-2024 Emergency Department Summary Normal [facility] Influenza virus A and B and SARS-CoV-2 (COVID-19) and Respiratory syncytial virus RNAOrdered By: Carolyne Leigh on 09-28-2024 SARS-CoV-2 (COVID-19) RNA BARBER+probe Ql (Unsp spec) [facility] M100.678on 09-28-2024 M100.678 Pending SARS-CoV-2 (COVID 19) Negative INFLUENZA A Negative INFLUENZA B Negative RSV PCR Negative Normal [facility] Comment on above: Performed By: #### M 100.678 ####[facility] [address], [address] Absolute lymphocyte countOrd ered By: Clau Mcclain on 09-20-2024 Lymphocytes Auto (Unsp spec) [#/Vol] 3.11 10*3/uL 0.83-4.51 [facility] Absolute neutrophil countOrd ered By: Clau Mcclain on 09-20-2024 Neutrophils (Bld) [#/Vol] 4.3 10*3/uL 2.0-7.7 [facility] Automated lymphocyte count a s percentage of total leukocytesOrdered By: Clau Mcclain on 09-20-2024 Lymphocytes/100 WBC Auto (Unsp spec) 37.0 % 19-41 [facility] Basophil percentageOrdered B y: Clau Mcclain on 09-20-2024 Basophils/100 WBC (Bld) 0.4 % 0-1 [facility] CBC W/Diff, Automatedon 08-30 Absolute Lymph 3.11 X10 3/uL Normal 0.83-4.51 [facility] Comment on above: Performed By: #### L 503.6075, L503.6150, L100.0100 ####[facility] [address] [place], [address] Absolute Neut 4.3 X10 3/uL Normal 2.0-7.7 [facility] Comment on above: Performed By: #### L 503.6075, L503.6150, L100.0100 ####[facility] [address] [place], [address] Basophils/100 WBC (Bld) 0.4 % Normal 0-1 [facility] Comment on above: Performed By: #### L 503.6075, L503.6150, L100.0100 ####[facility] [address] [place], [address] Eosinophils/100 WBC (Bld) 0.8 % Normal 0-5 [facility] Comment on above: Performed By: #### L 503.6075, L503.6150, L100.0100 ####[facility] [address] [place], [address] Erythrocyte distribution width (RBC) [Ratio] 17.6 % High 11.6-14.6 [facility] Comment on above: Performed By: #### L 503.6075, L503.6150, L100.0100 ####[facility] [address] [place], [address] Hematocrit (Bld) [Volume fraction] 33.1 % Low 37-47 [facility] Comment on above: Performed By: #### L 503.6075, L503.6150, L100.0100 ####[facility] [address] [place], [address] Hemoglobin (Bld) [Mass/Vol] 9.3 g/dL Low 12.0-15.0 [facility] Comment on above: Performed By: #### L 503.6075, L503.6150, L100.0100 ####[facility] [address] [place], [address] IG% 0.400 Normal 0.0-0.9 [facility] Comment on above: Result Comment: IG% - Immature Granulocytes (promyelocytes, myelocytes andmetamyelocytes) > 1% indicates that a LEFT SHIFT is Present. Performed By: #### L 503.6075, L503.6150, L100.0100 ####[facility] [address] [place], [address] Lymphocytes/100 WBC (Bld) 37.0 % Normal 19-41 [facility] Comment on above: Performed By: #### L 503.6075, L503.6150, L100.0100 ####[facility] [address] [place], [address] MCH (RBC) [Entitic mass] 22.2 pg Low 27.0-32.0 [facility] Comment on above: Performed By: #### L 503.6075, L503.6150, L100.0100 ####[facility] [address] [place], [address] MCHC (RBC) [Mass/Vol] 28.1 g/dL Low 32-36 [facility] Comment on above: Performed By: #### L 503.6075, L503.6150, L100.0100 ####[facility] [address] [place], [address] MCV (RBC) [Entitic vol] 79.0 fL Low 81-99 [facility] Comment on above: Performed By: #### L 503.6075, L503.6150, L100.0100 ####[facility] [address] [place], [address] Monocytes/100 WBC (Bld) 10.1 % High 0-10 [facility] Comment on above: Performed By: #### L 503.6075, L503.6150, L100.0100 ####[facility] [address] [place], [address] Neutrophils/100 WBC (Bld) 51.3 % Normal 47-70 [facility] Comment on above: Performed By: #### L 503.6075, L503.6150, L100.0100 ####[facility] [address] [place], [address] Nucleated RBC (Bld) [#/Vol] 0 10*3/uL Normal 0-5 [facility] Comment on above: Performed By: #### L 503.6075, L503.6150, L100.0100 ####[facility] [address] [place], [address] Platelet mean volume (Bld) [Entitic vol] 8.1 fL Normal 6.2-12.0 [facility] Comment on above: Performed By: #### L 503.6075, L503.6150, L100.0100 ####[facility] [address] [place], [address] Platelets (Bld) [#/Vol] 475 10*3/uL High 150-450 [facility] Comment on above: Performed By: #### L 503.6075, L503.6150, L100.0100 ####[facility] [address] [place], [address] RBC (Bld) [#/Vol] 4.19 10*6/uL Low 4.2-5.4 [facility] Comment on above: Performed By: #### L 503.6075, L503.6150, L100.0100 ####[facility] [address] [place], [address] RDW SD 50.6 fl High 35.1-43.9 [facility] Comment on above: Performed By: #### L 503.6075, L503.6150, L100.0100 ####[facility] [address] [place], [address] WBC (Bld) [#/Vol] 8.4 10*3/uL Normal 4.4-11.0 [facility] Comment on above: Performed By: #### L 503.6075, L503.6150, L100.0100 ####[facility] [address] [place], [address] Eosinophil percentageOrdered By: Clau Mcclain on 09-20-2024 Eosinophils/100 WBC (Bld) 0.8 % 0-5 [facility] Erythrocyte distribution wid th ratioOrdered By: Clau Mcclain on 09-20-2024 Erythrocyte distribution width (RBC) [Ratio] 17.6 % High 11.6-14.6 [facility] Erythrocyte distribution wid th standard deviationOrdered By: Clau Mcclain on 09-20-2024 Erythrocyte distribution width (RBC) [Entitic vol] 50.6 fL High 35.1-43.9 [facility] Erythrocyte distribution width (RBC) [Ratio] 50.6 fl High 35.1-43.9 [facility] Gastroenterology Visit Repor ton 09-20-2024 Gastroenterology Visit Report Normal [facility] Hematocrit Auto (Bld) [Volum e fraction]Ordered By: Clau Mcclain on 09-20-2024 Hematocrit (Bld) [Volume fraction] 33.1 % Low 37-47 [facility] Hemoglobin measurementOrdere d By: Clau Mcclain on 09-20-2024 Hemoglobin (Bld) [Mass/Vol] 9.3 g/dL Low 12.0-15.0 [facility] Immature granulocytes/100 WB C Auto (Bld)Ordered By: Clau Mcclain on 09-20-2024 Immature granulocytes/100 WBC (Bld) 0.400 % 0.0-0.9 [facility] Comment on above: IG% - Immature Granu locytes (promyelocytes, myelocytes and metamyelocytes) > 1% indicates that a LEFT SHIFT is Present. Ironon 09-20-2024 Iron [Mass/Vol] 30 ug/dL Low 50-170 [facility] Comment on above: Performed By: #### L 503.6075, L503.6150, L100.0100 ####[facility] [address] [place], [address] Iron (Unsp spec) [Mass/Mass] Ordered By: Clau Mcclain on 09-20-2024 Iron [Mass/Vol] 30 ug/dL Low 50-170 [facility] Iron Binding Capacity,Totalo n 09-20-2024 TIBC 391 ug/dL Normal 250-450 [facility] Comment on above: Performed By: #### L 503.6075, L503.6150, L100.0100 ####[facility] [address] [place], [address] Iron measurement (mass/mass) Ordered By: Clau Mcclain on 09-20-2024 Iron (Unsp spec) [Mass/Mass] 30 ug/dL Low 50-170 [facility] Lymphocytes Auto (Unsp spec) [#/Vol]Ordered By: Clau Mcclain on 09-20-2024 Lymphocytes (Bld) [#/Vol] 3.11 10*3/uL 0.83-4.51 [facility] Lymphocytes/100 WBC Auto (Un sp spec)Ordered By: Clau Mcclain on 09-20-2024 Lymphocytes/100 WBC (Bld) 37.0 % 19-41 [facility] MCV (mean corpuscular volume ) determinationOrdered By: Clau Mcclain on 09-20-2024 MCV (RBC) [Entitic vol] 79.0 fL Low 81-99 [facility] Mean corpuscular hemoglobin (MCH) determinationOrdered By: Clau Mcclain on 09-20-2024 MCH (RBC) [Entitic mass] 22.2 pg Low 27.0-32.0 [facility] Mean corpuscular hemoglobin concentration (MCHC) determinationOrdered By: Clau Mcclain on 09-20-2024 MCHC (RBC) [Mass/Vol] 28.1 g/dL Low 32-36 [facility] Mean platelet volume determi nationOrdered By: Clau Mcclain on 09-20-2024 Platelet mean volume (Bld) [Entitic vol] 8.1 fL 6.2-12.0 [facility] Monocyte percentageOrdered B y: Clau Mcclain on 09-20-2024 Monocytes/100 WBC (Bld) 10.1 % High 0-10 [facility] Neutrophil percentageOrdered By: Clau Mcclain on 09-20-2024 Neutrophils/100 WBC (Bld) 51.3 % 47-70 [facility] Nucleated red blood cell per centageOrdered By: Clau Mcclain on 09-20-2024 Nucleated RBC/100 WBC (Bld) [Ratio] 0 % 0-5 [facility] Platelet countOrdered By: Mann Mcclain on 09-20-2024 Platelets (Bld) [#/Vol] 475 10*3/uL High 150-450 [facility] RBC Auto (Bld) [#/Vol]Ordere d By: Clau Mcclain on 09-20-2024 RBC (Bld) [#/Vol] 4.19 10*6/uL Low 4.2-5.4 [facility] TIBCOrdered By: Clau stevens on 09-20-2024 Total Iron Binding Capacity 391 ug/dL 250-450 [facility] White blood cell (WBC) count Ordered By: Clau Mcclain on 09-20-2024 WBC (Bld) [#/Vol] 8.4 10*3/uL 4.4-11.0 [facility] Knee 4 or More Viewson 09-19 Knee 4 or More Views Normal [facility] Orthopedic Visit Reporton Orthopedic Visit Report Normal [facility] Colonoscopy Reporton 025 Colonoscopy Report Normal [facility] MR/POSTOP.ANEon 08-30-2024 MR/POSTOP.ANE Normal [facility] MR/UCPQYEAA0br 08-30-2024 MR/POSTOPAN2 Normal [facility] Surgery Specimen Level Félix 08-30-2024 Surgery Specimen Level IV Normal [facility] Comment on above: Performed By: #### P SUIV ####[facility] [address] [place], [address] MR/PAT.ANEon 08-28-2024 MR/PAT.ANE Normal [facility] Lumbar Spine 2 or 3 Viewson 08-21-2024 Lumbar Spine 2 or 3 Views Normal [facility] Miscellaneous Lab Procedureo n 08-21-2024 MISC LAB TEST Normal [facility] Comment on above: Order Comment: SERUM RF [...] a unitless numerical value. *Med SA, Hussain DALEY, Damir T, et al. 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 J Hepatol. 2020 Feb;73(1):26-39. TESTING PERFORMED AT [facility]. ORIGINAL REPORT ON FILE IN LAB CONTAINS ADDITIONAL TEST SITE INFORMATION. Performed By: #### L 100.0100, L500.4050, L3890.6100, L3890.6200, L3100.0460, L801.1541, L3890.6300, L3100.0300 ####[facility] [address] [place], [place], [id number] Hepatitis A AB, Totalon 07-30 HEPATITIS A,TOT Negative Normal Negative [facility] Comment on above: Result Comment: Comm ent: [...] HAVtotal antibody results to IgM (e.g., panel #[id number] HAVAntibody w/ Rfx).Performed at: [address] [id number] Director: Meliton Browning PhD, Phone: [phone] Performed By: #### L 100.0100, L500.4050, L3890.6100, L3890.6200, L3100.0460, L801.1541, L3890.6300, L3100.0300 ####[facility] [address] [place], [place], [id number] Hepatitis B Core Ab Totalon 08-17-2024 HEP B CORE,TOT Negative Normal Negative [facility] Comment on above: Performed By: #### L 100.0100, L500.4050, L3890.6100, L3890.6200, L3100.0460, L801.1541, L3890.6300, L3100.0300 ####[facility] [address] [place], [place], [phone] Absolute neutrophil countOrd ered By: Clau Mcclain on 08-16-2024 Neutrophils (Bld) [#/Vol] 3.3 10*3/uL 2.0-7.7 [facility] Albumin to globulin ratioOrd ered By: Clau Mcclain on 08-16-2024 Albumin/Globulin [Mass ratio] 0.8 {ratio} Low 0.9-2.4 [facility] Basophil percentageOrdered B y: Clau Mcclain on 08-16-2024 Basophils/100 WBC (Bld) 0.3 % 0-1 [facility] Bilirubin, totalOrdered By: Clau Amadorony on 08-16-2024 Bilirubin [Mass/Vol] 0.20 mg/dL 0.20-1.00 [facility] Comment on above: For patients on eltr ombopag therapy, use of [place] TBIL is not recommended. Blood urea nitrogen (BUN)/cr eatinine ratioOrdered By: Clau Mcclain on 08-16-2024 Urea nitrogen/Creatinine [Mass ratio] 25.1 mg/mg High 10- [facility] CBC W/Diff, Automatedon 07-29 Absolute Lymph 2.10 X10 3/uL Normal 0.83-4.51 [facility] Comment on above: Performed By: #### L 100.0100, L500.4050, L3890.6100, L3890.6200, L3100.0460, L801.1541, L3890.6300, L3100.0300 ####[facility] [address] [place], [address] Absolute Neut 3.3 X10 3/uL Normal 2.0-7.7 [facility] Comment on above: Performed By: #### L 100.0100, L500.4050, L3890.6100, L3890.6200, L3100.0460, L801.1541, L3890.6300, L3100.0300 ####[facility] [address] [place], [address] Basophils/100 WBC (Bld) 0.3 % Normal 0-1 [facility] Comment on above: Performed By: #### L 100.0100, L500.4050, L3890.6100, L3890.6200, L3100.0460, L801.1541, L3890.6300, L3100.0300 ####[facility] [address] [place], [address] Eosinophils/100 WBC (Bld) 1.8 % Normal 0-5 [facility] Comment on above: Performed By: #### L 100.0100, L500.4050, L3890.6100, L3890.6200, L3100.0460, L801.1541, L3890.6300, L3100.0300 ####[facility] [address] [place], [address] Erythrocyte distribution width (RBC) [Ratio] 16.4 % High 11.6-14.6 [facility] Comment on above: Performed By: #### L 100.0100, L500.4050, L3890.6100, L3890.6200, L3100.0460, L801.1541, L3890.6300, L3100.0300 ####[facility] [address] [place], [address] Hematocrit (Bld) [Volume fraction] 34.6 % Low 37-47 [facility] Comment on above: Performed By: #### L 100.0100, L500.4050, L3890.6100, L3890.6200, L3100.0460, L801.1541, L3890.6300, L3100.0300 ####[facility] [address] [place], [address] Hemoglobin (Bld) [Mass/Vol] 9.8 g/dL Low 12.0-15.0 [facility] Comment on above: Performed By: #### L 100.0100, L500.4050, L3890.6100, L3890.6200, L3100.0460, L801.1541, L3890.6300, L3100.0300 ####[facility] [address] [place], [address] IG% 0.200 Normal 0.0-0.9 [facility] Comment on above: Result Comment: IG% - Immature Granulocytes (promyelocytes, myelocytes andmetamyelocytes) > 1% indicates that a LEFT SHIFT is Present. Performed By: #### L 100.0100, L500.4050, L3890.6100, L3890.6200, L3100.0460, L801.1541, L3890.6300, L3100.0300 ####[facility] [address] [place], [place], [phone] Lymphocytes/100 WBC (Bld) 33.7 % Normal 19-41 [facility] Comment on above: Performed By: #### L 100.0100, L500.4050, L3890.6100, L3890.6200, L3100.0460, L801.1541, L3890.6300, L3100.0300 ####[facility] [address] [place], [address] MCH (RBC) [Entitic mass] 24.3 pg Low 27.0-32.0 [facility] Comment on above: Performed By: #### L 100.0100, L500.4050, L3890.6100, L3890.6200, L3100.0460, L801.1541, L3890.6300, L3100.0300 ####[facility] [address] [place], [address] MCHC (RBC) [Mass/Vol] 28.3 g/dL Low 32-36 [facility] Comment on above: Performed By: #### L 100.0100, L500.4050, L3890.6100, L3890.6200, L3100.0460, L801.1541, L3890.6300, L3100.0300 ####[facility] [address] [place], [address] MCV (RBC) [Entitic vol] 85.9 fL Normal 81-99 [facility] Comment on above: Performed By: #### L 100.0100, L500.4050, L3890.6100, L3890.6200, L3100.0460, L801.1541, L3890.6300, L3100.0300 ####[facility] [address] [place], [address] Monocytes/100 WBC (Bld) 11.5 % High 0-10 [facility] Comment on above: Performed By: #### L 100.0100, L500.4050, L3890.6100, L3890.6200, L3100.0460, L801.1541, L3890.6300, L3100.0300 ####[facility] [address] [place], [address] Neutrophils/100 WBC (Bld) 52.5 % Normal 47-70 [facility] Comment on above: Performed By: #### L 100.0100, L500.4050, L3890.6100, L3890.6200, L3100.0460, L801.1541, L3890.6300, L3100.0300 ####[facility] [address] [place], [address] Nucleated RBC (Bld) [#/Vol] 0 10*3/uL Normal 0-5 [facility] Comment on above: Performed By: #### L 100.0100, L500.4050, L3890.6100, L3890.6200, L3100.0460, L801.1541, L3890.6300, L3100.0300 ####[facility] [address] [place], [address] Platelet mean volume (Bld) [Entitic vol] 8.2 fL Normal 6.2-12.0 [facility] Comment on above: Performed By: #### L 100.0100, L500.4050, L3890.6100, L3890.6200, L3100.0460, L801.1541, L3890.6300, L3100.0300 ####[facility] [address] [place], [address] Platelets (Bld) [#/Vol] 426 10*3/uL Normal 150-450 [facility] Comment on above: Performed By: #### L 100.0100, L500.4050, L3890.6100, L3890.6200, L3100.0460, L801.1541, L3890.6300, L3100.0300 ####[facility] [address] [place], [address] RBC (Bld) [#/Vol] 4.03 10*6/uL Low 4.2-5.4 [facility] Comment on above: Performed By: #### L 100.0100, L500.4050, L3890.6100, L3890.6200, L3100.0460, L801.1541, L3890.6300, L3100.0300 ####[facility] [address] [place], [address] RDW SD 51.8 fl High 35.1-43.9 [facility] Comment on above: Performed By: #### L 100.0100, L500.4050, L3890.6100, L3890.6200, L3100.0460, L801.1541, L3890.6300, L3100.0300 ####[facility] [address] [place], [address] WBC (Bld) [#/Vol] 6.2 10*3/uL Normal 4.4-11.0 [facility] Comment on above: Performed By: #### L 100.0100, L500.4050, L3890.6100, L3890.6200, L3100.0460, L801.1541, L3890.6300, L3100.0300 ####[facility] [address] [place], [address] Carbon dioxide measurementOr dered By: Clau Mcclain on 08-16-2024 CO2 [Moles/Vol] 29.0 mmol/L 21.0-32.0 [facility] Chloride measurementOrdered By: Clau Mcclain on 08-16-2024 Chloride [Moles/Vol] 102 mmol/L 98-107 [facility] Comprehensive Metabolic Prof ilon 08-16-2024 Albumin [Mass/Vol] 3.6 g/dL Normal 3.2-5.0 [facility] Comment on above: Performed By: #### L 100.0100, L500.4050, L3890.6100, L3890.6200, L3100.0460, L801.1541, L3890.6300, L3100.0300 ####[facility] [address] [place], [address] Albumin/Globulin [Mass ratio] 0.8 {ratio} Low 0.9-2.4 [facility] Comment on above: Performed By: #### L 100.0100, L500.4050, L3890.6100, L3890.6200, L3100.0460, L801.1541, L3890.6300, L3100.0300 ####[facility] [address] [place], [address] ALK P 91 U/L Normal 45-117 [facility] Comment on above: Performed By: #### L 100.0100, L500.4050, L3890.6100, L3890.6200, L3100.0460, L801.1541, L3890.6300, L3100.0300 ####[facility] [address] [place], [address] ALT [Catalytic activity/Vol] 19 U/L Normal 13-56 [facility] Comment on above: Performed By: #### L 100.0100, L500.4050, L3890.6100, L3890.6200, L3100.0460, L801.1541, L3890.6300, L3100.0300 ####[facility] [address] [place], [address] AST [Catalytic activity/Vol] 20 U/L Normal 15-37 [facility] Comment on above: Performed By: #### L 100.0100, L500.4050, L3890.6100, L3890.6200, L3100.0460, L801.1541, L3890.6300, L3100.0300 ####[facility] [address] [place], [address] Bilirubin [Mass/Vol] 0.20 mg/dL Normal 0.20-1.00 [facility] Comment on above: Result Comment: For patients on eltrombopag therapy, use of [place] TBIL is not recommended. Performed By: #### L 100.0100, L500.4050, L3890.6100, L3890.6200, L3100.0460, L801.1541, L3890.6300, L3100.0300 ####[facility] [address] [place], [address] BUN/CRE 25.1 RATIO High 10-20 [facility] Comment on above: Performed By: #### L 100.0100, L500.4050, L3890.6100, L3890.6200, L3100.0460, L801.1541, L3890.6300, L3100.0300 ####[facility] [address] [place], [address] CA,Total 9.5 mg/dL Normal 8.5-10.1 [facility] Comment on above: Performed By: #### L 100.0100, L500.4050, L3890.6100, L3890.6200, L3100.0460, L801.1541, L3890.6300, L3100.0300 ####[facility] [address] [place], [place], [phone]([phone]) Chloride [Moles/Vol] 102 mmol/L Normal 98-107 [facility] Comment on above: Performed By: #### L 100.0100, L500.4050, L3890.6100, L3890.6200, L3100.0460, L801.1541, L3890.6300, L3100.0300 ####[facility] [address] [place], [address](124) CO2 [Moles/Vol] 29.0 mmol/L Normal 21.0-32.0 [facility] Comment on above: Performed By: #### L 100.0100, L500.4050, L3890.6100, L3890.6200, L3100.0460, L801.1541, L3890.6300, L3100.0300 ####[facility] [address] [place], [place], [phone](979) Creatinine [Mass/Vol] 0.68 mg/dL Normal 0.55-1.02 [facility] Comment on above: Result Comment: The validity of the calculated GFR GFRAA in patients over70 years has not been determined. Clinical correlation isessential. Performed By: #### L 100.0100, L500.4050, L3890.6100, L3890.6200, L3100.0460, L801.1541, L3890.6300, L3100.0300 ####[facility] [address] [place], [place], [phone](858) EST GFR - AA 111 mL/min Normal >60 [facility] Comment on above: Result Comment: Afri can Mal[place]ian GFR Calc Performed By: #### L 100.0100, L500.4050, L3890.6100, L3890.6200, L3100.0460, L801.1541, L3890.6300, L3100.0300 ####[facility] [address] [place], [place], [phone](767) GAP 4 Low 5-15 [facility] Comment on above: Performed By: #### L 100.0100, L500.4050, L3890.6100, L3890.6200, L3100.0460, L801.1541, L3890.6300, L3100.0300 ####[facility] [address] [place], [place], [phone](672) GFR/1.73 sq M.predicted among non-blacks MDRD (S/P/Bld) [Vol rate/Area] 92 mL/min/{1.73_m2} Normal >60 [facility] Comment on above: Result Comment: Non- GFR Calc Performed By: #### L 100.0100, L500.4050, L3890.6100, L3890.6200, L3100.0460, L801.1541, L3890.6300, L3100.0300 ####[facility] [address] [place], [place], [phone] Globulin (S) [Mass/Vol] 4.6 g/dL High 2.2-4.2 [facility] Comment on above: Performed By: #### L 100.0100, L500.4050, L3890.6100, L3890.6200, L3100.0460, L801.1541, L3890.6300, L3100.0300 ####[facility] [address] [place], [place], [phone] Glucose [Mass/Vol] 81 mg/dL Normal 74-106 [facility] Comment on above: Performed By: #### L 100.0100, L500.4050, L3890.6100, L3890.6200, L3100.0460, L801.1541, L3890.6300, L3100.0300 ####[facility] [address] [place], [address] Potassium [Moles/Vol] 4.4 mmol/L Normal 3.5-5.1 [facility] Comment on above: Performed By: #### L 100.0100, L500.4050, L3890.6100, L3890.6200, L3100.0460, L801.1541, L3890.6300, L3100.0300 ####[facility] [address] [place], [address] Sodium [Moles/Vol] 135 mmol/L Low 136-145 [facility] Comment on above: Performed By: #### L 100.0100, L500.4050, L3890.6100, L3890.6200, L3100.0460, L801.1541, L3890.6300, L3100.0300 ####[facility] [address] [place], [address] T PROT 8.2 g/dL Normal 6.4-8.2 [facility] Comment on above: Performed By: #### L 100.0100, L500.4050, L3890.6100, L3890.6200, L3100.0460, L801.1541, L3890.6300, L3100.0300 ####[facility] [address] [place], [address] Urea nitrogen [Mass/Vol] 17 mg/dL Normal 7-18 [facility] Comment on above: Performed By: #### L 100.0100, L500.4050, L3890.6100, L3890.6200, L3100.0460, L801.1541, L3890.6300, L3100.0300 ####[facility] [address] [place], [address] Eosinophil percentageOrdered By: Clau Mcclain on 08-16-2024 Eosinophils/100 WBC (Bld) 1.8 % 0-5 [facility] Erythrocyte distribution wid th ratioOrdered By: Clau Mcclain on 08-16-2024 Erythrocyte distribution width (RBC) [Ratio] 16.4 % High 11.6-14.6 [facility] Erythrocyte distribution wid th standard deviationOrdered By: Clau Mcclain on 08-16-2024 Erythrocyte distribution width (RBC) [Entitic vol] 51.8 fL High 35.1-43.9 [facility] Estimated glomerular filtrat ion rate (GFR) AmericanOrdered By: Clau Mcclain on 08-16-2024 Estimated GFR (MDRD) Amer 111 mL/min >60 [facility] Comment on above: GFR Calc Gastroenterology Visit Repor ton 08-16-2024 Gastroenterology Visit Report Normal [facility] Glomerular filtration rate ( GFR) estimationOrdered By: Clau Mcclain on 08-16-2024 Estimated GFR (MDRD) Non-Af Amer 92 mL/min >60 [facility] Comment on above: Non- GFR Calc Glucose measurementOrdered B y: Clau Mcclain on 08-16-2024 Glucose [Mass/Vol] 81 mg/dL 74-106 [facility] HBV core Ab Ql (S)Ordered By : Clau Mcclain on 08-16-2024 Hepatitis B Core Total Antibody Negative Negative [facility] HBV surface IgG Ql (S)Ordere d By: Clau Mcclain on 08-16-2024 Hepatitis B Surface Antibody Non-Reactive [facility] Comment on above: Non Reactive: Incons istent with immunity less than <10 mIU/mL Reactive: Consistent with immunity greater than or equal to 10 mIU/mL Hematocrit Auto (Bld) [Volum e fraction]Ordered By: Clau Mcclain on 08-16-2024 Hematocrit (Bld) [Volume fraction] 34.6 % Low 37-47 [facility] Hemoglobin measurementOrdere d By: Clau Mcclain on 08-16-2024 Hemoglobin (Bld) [Mass/Vol] 9.8 g/dL Low 12.0-15.0 [facility] Hepatitis A virus total anti body assayOrdered By: Clau Mcclain on 08-16-2024 Hepatitis A Antibody Total Negative Negative [facility] Comment on above: Comment: The HAV tot [...] HAVtotal antibody results to IgM (e.g., panel #[id number] HAVAntibody w/ Rfx).Performed at: [place] [id number] Director: Meliton Browning PhD, Phone: [phone] Hepatitis B Surface Antibody on 08-16-2024 HEP B Surf Ab Non-Reactive Normal [facility] Comment on above: Order Comment: Reaso n for Exam: steatosis Result Comment: Non Reactive: Inconsistent with immunity less than <10 mIU/mL Reactive: Consistent with immunity greater than or equal to 10 mIU/mL Performed By: #### L 100.0100, L500.4050, L3890.6100, L3890.6200, L3100.0460, L801.1541, L3890.6300, L3100.0300 ####[facility] [address] [place], [place], [phone] Hepatitis B Surface Antigeno n 08-16-2024 HEP B Surf Ag Non-Reactive Normal Nonreactive [facility] Comment on above: Order Comment: Reaso n for Exam: steatosis Performed By: #### L 100.0100, L500.4050, L3890.6100, L3890.6200, L3100.0460, L801.1541, L3890.6300, L3100.0300 ####[facility] [address] [place], [address] Hepatitis B surface antigen detectionOrdered By: Clau Mcclain on 08-16-2024 Hepatitis B Surface Antigen Non-Reactive Nonreactive [facility] Hepatitis C Antibodyon 08-16 Hepatitis C AB Non-Reactive Normal Nonreactive [facility] Comment on above: Order Comment: Reaso n for Exam: steatosis Result Comment: Non Reactive: < 0.8 Equivocal: >/= 0.8 to < 1.0 Reactive: >/= 1.0The [facility] requires that a reactive/equivocal HCV antibodyresult be sent out for confirmation. HCV Quant by PCRtesting. Performed By: #### L 100.0100, L500.4050, L3890.6100, L3890.6200, L3100.0460, L801.1541, L3890.6300, L3100.0300 ####[facility] [address] [place], [address] Hepatitis C virus antibody a ssayOrdered By: Clau Mcclain on 08-16-2024 Hepatitis C Antibody Non-Reactive Nonreactive [facility] Comment on above: Non Reactive: < 0.8 Equivocal: >/= 0.8 to < 1.0 Reactive: >/= 1.0The CDC requires that a reactive/equivocal HCV antibody result be sent out for confirmation. HCV Quant by PCR testing. Immature granulocytes/100 WB C Auto (Bld)Ordered By: Clau Mcclain on 08-16-2024 Immature granulocytes/100 WBC (Bld) 0.200 % 0.0-0.9 [facility] Comment on above: IG% - Immature Granu locytes (promyelocytes, myelocytes and metamyelocytes) > 1% indicates that a LEFT SHIFT is Present. Laboratory - Chemistry and C hemistry - challengeOrdered By: Clau Mcclain on 08-16-2024 AST [Catalytic activity/Vol] 20 U/L 15-37 [facility] Lymphocytes Auto (Unsp spec) [#/Vol]Ordered By: Clau Mcclain on 08-16-2024 Lymphocytes (Bld) [#/Vol] 2.10 10*3/uL 0.83-4.51 [facility] Lymphocytes/100 WBC Auto (Un sp spec)Ordered By: Clau Mcclain on 08-16-2024 Lymphocytes/100 WBC (Bld) 33.7 % 19-41 [facility] MCV (mean corpuscular volume ) determinationOrdered By: Clau Mcclain on 08-16-2024 MCV (RBC) [Entitic vol] 85.9 fL 81-99 [facility] Mean corpuscular hemoglobin (MCH) determinationOrdered By: Clau Mcclain on 08-16-2024 MCH (RBC) [Entitic mass] 24.3 pg Low 27.0-32.0 [facility] Mean corpuscular hemoglobin concentration (MCHC) determinationOrdered By: Clau Mcclain on 08-16-2024 MCHC (RBC) [Mass/Vol] 28.3 g/dL Low 32-36 [facility] Mean platelet volume determi nationOrdered By: Clau Mcclain on 08-16-2024 Platelet mean volume (Bld) [Entitic vol] 8.2 fL 6.2-12.0 [facility] Miscellaneous procedureOrder ed By: Clau Mcclain on 08-16-2024 Miscellaneous Test See comment [facility] Comment on above: TEST RESULTS LIMITS [...] J Hepatol. 2020 Feb;73(1):26-39. TESTING PERFORMED AT [facility]. ORIGINAL REPORT ON FILE IN LAB CONTAINS ADDITIONAL TEST SITE INFORMATION. Monocyte percentageOrdered B y: Clau Mcclain on 08-16-2024 Monocytes/100 WBC (Bld) 11.5 % High 0-10 [facility] Neutrophil percentageOrdered By: Clau Mcclain on 08-16-2024 Neutrophils/100 WBC (Bld) 52.5 % 47-70 [facility] Nucleated red blood cell per centageOrdered By: Clau Mcclain on 08-16-2024 Nucleated RBC/100 WBC (Bld) [Ratio] 0 % 0-5 [facility] Platelet countOrdered By: Mann Mcclain on 08-16-2024 Platelets (Bld) [#/Vol] 426 10*3/uL 150-450 [facility] Potassium measurementOrdered By: Clau Mcclain on 08-16-2024 Potassium [Moles/Vol] 4.4 mmol/L 3.5-5.1 [facility] RBC Auto (Bld) [#/Vol]Ordere d By: Clau Mcclain on 08-16-2024 RBC (Bld) [#/Vol] 4.03 10*6/uL Low 4.2-5.4 [facility] Serum anion gap measurementO rdered By: Clau Mcclain on 08-16-2024 Anion gap [Moles/Vol] 4 mmol/L Low 5-15 [facility] Serum globulin measurementOr dered By: Clau Mcclain on 08-16-2024 Globulin (S) [Mass/Vol] 4.6 g/dL High 2.2-4.2 [facility] Serum or plasma alanine han otransferase (ALT) measurementOrdered By: Clau Mcclain on 08-16-2024 ALT [Catalytic activity/Vol] 19 U/L 13-56 [facility] Serum or plasma albumin zara urement (mass/volume)Ordered By: Clau Mcclain on 08-16-2024 Albumin [Mass/Vol] 3.6 g/dL 3.2-5.0 [facility] Serum or plasma alkaline alvarez sphatase measurementOrdered By: Clau Mcclain on 08-16-2024 ALP [Catalytic activity/Vol] 91 U/L 45-117 [facility] Serum or plasma calcium zara urement (mass/volume)Ordered By: Clau Mcclain on 08-16-2024 Calcium [Mass/Vol] 9.5 mg/dL 8.5-10.1 [facility] Serum or plasma creatinine m easurement (mass/volume)Ordered By: Clau Mcclain on 08-16-2024 Creatinine [Mass/Vol] 0.68 mg/dL 0.55-1.02 [facility] Comment on above: The validity of the calculated GFR & GFRAA in patients over 70 years has not been determined. Clinical correlation is essential. Serum or plasma urea nitroge n measurement (mass/volume)Ordered By: Clau Mcclain on 08-16-2024 Urea nitrogen [Mass/Vol] 17 mg/dL 7-18 [facility] Sodium levelOrdered By: Karen Mcclain on 08-16-2024 Sodium [Moles/Vol] 135 mmol/L Low 136-145 [facility] Total proteinOrdered By: Lucrecia Mcclain on 08-16-2024 Protein [Mass/Vol] 8.2 g/dL 6.4-8.2 [facility] White blood cell (WBC) count Ordered By: Clau [place]clain on 08-16-2024 WBC (Bld) [#/Vol] 6.2 10*3/uL 4.4-11.0 [facility] SCRN MAMM (CAD)W/ERIC BILATo n 07-25-2024 SCRN MAMM (CAD)W/ERIC BILAT Normal [facility] Basophil percentageOrdered B y: Ravindra Singh on 11-25-2023 Chloride [Moles/Vol] 109 mmol/L 98-107 [facility] Glucose [Mass/Vol] 98 mg/dL 74-106 [facility] Hemoglobin (Bld) [Mass/Vol] 10.9 g/dL 12.0-15.0 [facility] Potassium [Moles/Vol] 4.1 mmol/L 3.5-5.1 [facility] Sodium [Moles/Vol] 137 mmol/L 136-145 [facility] WBC (Bld) [#/Vol] 6.9 10*3/uL 4.4-11.0 [facility] Determination of erythrocyte mean corpuscular volume (MCV)Ordered By: Ravindra Singh on 11-25-2023 MCV (RBC) [Entitic vol] 82.9 fL 81-99 [facility] [place] Erythrocyte distribution wid th ratioOrdered By: Ravindrapepe Singh on 11-25-2023 Erythrocyte distribution width (RBC) [Ratio] 20.0 % 11.6-14.6 [facility] Erythrocyte distribution wid th standard deviationOrdered By: Ravindrapepe Singh on 11-25-2023 Erythrocyte distribution width (RBC) [Entitic vol] 60.8 fL 35.1-43.9 [facility] Hematocrit Auto (Bld) [Volum e fraction]Ordered By: Ravindra Singh on 11-25-2023 Hematocrit (Bld) [Volume fraction] 36.9 % 37-47 [facility] Laboratory - Chemistry and C hemistry - challengeOrdered By: Ravindra Singh on 11-25-2023 CO2 [Moles/Vol] 22.0 mmol/L 21.0-32.0 [facility] Urea nitrogen/Creatinine [Mass ratio] 19.8 mg/mg 10-20 [facility] Laboratory - Hematology and Cell countsOrdered By: Ravindra Singh on 11-25-2023 MCH (RBC) [Entitic mass] 24.5 pg 27.0-32.0 [facility] MCHC (RBC) [Mass/Vol] 29.5 g/dL 32-36 [facility] Platelet mean volume (Bld) [Entitic vol] 8.5 fL 6.2-12.0 [facility] Platelets (Bld) [#/Vol] 413 10*3/uL 150-450 [facility] No Panel InformationOrdered By: Ravindra Singh on 11-25-2023 Estimated GFR (MDRD) Amer 106 mL/min >60 [facility] Comment on above: GFR Calc Estimated GFR (MDRD) Non-Af Amer 88 mL/min >60 [facility] Comment on above: Non- GFR Calc RBC Auto (Bld) [#/Vol]Ordere d By: Ravindra Singh on 11-25-2023 RBC (Bld) [#/Vol] 4.45 10*6/uL 4.2-5.4 [facility] Serum or plasma calcium zara urement (mass/volume)Ordered By: Ravindra Singh on 11-25-2023 Calcium [Mass/Vol] 9.4 mg/dL 8.5-10.1 [facility] Serum or plasma creatinine m easurement (mass/volume)Ordered By: Ravindra Singh on 11-25-2023 Creatinine [Mass/Vol] 0.71 mg/dL 0.55-1.02 [facility] Comment on above: The validity of the calculated GFR & GFRAA in patients over 70 years has not been determined. Clinical correlation is essential. Serum or plasma urea nitroge n measurement (mass/volume)Ordered By: Ravindra Singh on 11-25-2023 Urea nitrogen [Mass/Vol] 14 mg/dL 7-18 [facility] Thin prep Papanicolaou smear with manual screeningOrdered By: Ravindra Singh on 11-25-2023 Thin prep Papanicolaou smear with manual screening 6 5-15 [facility] Basophil percentageOrdered B y: Janet Ramos on 07-18-2023 Chloride [Moles/Vol] 103 mmol/L 98-107 [facility] Glucose [Mass/Vol] 77 mg/dL 74-106 [facility] Potassium [Moles/Vol] 4.4 mmol/L 3.5-5.1 [facility] Sodium [Moles/Vol] 136 mmol/L 136-145 [facility] Bilirubin Test strip Ql (U)O rdered By: Janet Ramos on 07-18-2023 Bilirubin Ql (U) Negative Negative [facility] Ketones Test strip Ql (U)Ord ered By: aJnet Ramos on 07-18-2023 Ketones Ql (U) Negative Negative [facility] Laboratory - Chemistry and C hemistry - challengeOrdered By: Janet Ramos on 07-18-2023 CO2 [Moles/Vol] 27.0 mmol/L 21.0-32.0 [facility] Urea nitrogen/Creatinine [Mass ratio] 21.4 mg/mg 10- [facility] Nitrite Test strip Ql (U)Ord ered By: Janet Ramos on 07-18-2023 Nitrite Ql (U) Negative Negative [facility] No Panel InformationOrdered By: Janet Ramos on 07-18-2023 Estimated GFR (MDRD) Amer 116 mL/min >60 [facility] Comment on above: GFR Calc Estimated GFR (MDRD) Non-Af Amer 96 mL/min >60 [facility] Comment on above: Non- GFR Calc Protein Test strip Ql (U)Ord ered By: Janet Ramos on 07-18-2023 Protein Ql (U) Negative Negative [facility] Serum or plasma calcium zara urement (mass/volume)Ordered By: Janet Ramos on 07-18-2023 Calcium [Mass/Vol] 8.8 mg/dL 8.5-10.1 [facility] Serum or plasma creatinine m easurement (mass/volume)Ordered By: Janet Ramos on 07-18-2023 Creatinine [Mass/Vol] 0.65 mg/dL 0.55-1.02 [facility] Comment on above: The validity of the calculated GFR & GFRAA in patients over 70 years has not been determined. Clinical correlation is essential. Serum or plasma urea nitroge n measurement (mass/volume)Ordered By: Janet Ramos on 07-18-2023 Urea nitrogen [Mass/Vol] 14 mg/dL 7-18 [facility] Thin prep Papanicolaou smear with manual screeningOrdered By: Janet Ramos on 07-18-2023 Thin prep Papanicolaou smear with manual screening 6 5-15 [facility] Urine blood detectionOrdered By: Janet Ramos on 07-18-2023 RBC Ql (U) Negative Negative [facility] Urine clarityOrdered By: Charline Ramos on 07-18-2023 Clarity (U) Clear Clear [facility] Urine color determinationOrd ered By: Janet Ramos on 07-18-2023 Color (U) Yellow Yellow [facility] Urine glucose detectionOrder ed By: Janet Ramos on 07-18-2023 Glucose Ql (U) Normal mg/dl Normal [facility] Urine leukocyte esterase det ection by dipstickOrdered By: Janet Ramos on 07-18-2023 Leukocyte esterase Test strip Ql (U) 100 /ul Negative [facility] Urine pHOrdered By: Janet camacho on 07-18-2023 pH (U) 6.5 [pH] 5.0 - 8.0 [facility] Urine specific gravity measu rementOrdered By: Janet Ramos on 07-18-2023 Specific gravity (U) [Rel density] 1.010 1.002-1.030 [facility] Urobilinogen Auto test strip Ql (U)Ordered By: Janet Ramos on 07-18-2023 Urobilinogen Ql (U) Normal mg/dl Normal [facility] Absolute lymphocyte countOrd ered By: Keisha Williamson on 06-20-2023 Lymphocytes Auto (Unsp spec) [#/Vol] 2.93 10*3/uL 0.83-4.51 [facility] Basophil percentageOrdered B y: Keisha Williamson on 06-20-2023 Basophils/100 WBC (Bld) 0.3 % 0-1 [facility] [place] Bilirubin [Mass/Vol] 0.20 mg/dL 0.20-1.00 [facility] Comment on above: For patients on eltr ombopag therapy, use of Dim[employer] [place] TBIL is not recommended. Chloride [Moles/Vol] 99 mmol/L 98-107 [facility] Eosinophils/100 WBC (Bld) 1.3 % 0-5 [facility] Glucose [Mass/Vol] 86 mg/dL 74-106 [facility] Neutrophils (Bld) [#/Vol] 3.2 10*3/uL 2.0-7.7 [facility] Neutrophils/100 WBC (Bld) 44.9 % 47-70 [facility] Potassium [Moles/Vol] 4.3 mmol/L 3.5-5.1 [facility] Protein [Mass/Vol] 8.2 g/dL 6.4-8.2 [facility] Sodium [Moles/Vol] 126 mmol/L 136-145 [facility] WBC (Bld) [#/Vol] 7.0 10*3/uL 4.4-11.0 [facility] Blood erythrocytes count (nu mber/volume)Ordered By: Keisha Williamson on 06-20-2023 RBC (Bld) [#/Vol] 4.18 10*6/uL 4.2-5.4 [facility] Blood hemoglobin measurement (mass/volume)Ordered By: Keisha Williamson on 06-20-2023 Hemoglobin (Bld) [Mass/Vol] 10.5 g/dL 12.0-15.0 [facility] Blood lymphocytes/100 leukoc ytesOrdered By: Keishaandrade Williamson on 06-20-2023 Lymphocytes/100 WBC (Bld) 41.7 % 19-41 [facility] Blood monocytes/100 leukocyt esOrdered By: Keishaandrade Williamson on 06-20-2023 Monocytes/100 WBC (Bld) 11.4 % 0-10 [facility] [place] Blood platelet mean volumeOr dered By: Keisha Williamson on 06-20-2023 Platelet mean volume (Bld) [Entitic vol] 8.7 fL 6.2-12.0 [facility] Determination of erythrocyte mean corpuscular volume (MCV)Ordered By: Keisha Williamson on 06-20-2023 MCV (RBC) [Entitic vol] 86.8 fL 81-99 [facility] [place] Hematocrit Auto (Bld) [Volum e fraction]Ordered By: Keishaandrade Williamson on 06-20-2023 Hematocrit (Bld) [Volume fraction] 36.3 % 37-47 [facility] Laboratory - Chemistry and C hemistry - challengeOrdered By: Keisha Williamson on 06-20-2023 ALP [Catalytic activity/Vol] 93 U/L 45-117 [facility] ALT [Catalytic activity/Vol] 19 U/L 13-56 [facility] CO2 [Moles/Vol] 29.0 mmol/L 21.0-32.0 [facility] Globulin (S) [Mass/Vol] 4.7 g/dL 2.2-4.2 [facility] Magnesium [Mass/Vol] 2.1 mg/dL 1.6-2.6 [facility] Urea nitrogen/Creatinine [Mass ratio] 17.6 mg/mg 10-20 [facility] Laboratory - Hematology and Cell countsOrdered By: Keisha Williamson on 06-20-2023 Erythrocyte distribution width (RBC) [Entitic vol] 53.8 fL 35.1-43.9 [facility] Erythrocyte distribution width (RBC) [Ratio] 16.8 % 11.6-14.6 [facility] Immature granulocytes/100 WBC (Bld) 0.400 % 0.0-0.9 [facility] Comment on above: IG% - Immature Granu locytes (promyelocytes, myelocytes and metamyelocytes) > 1% indicates that a LEFT SHIFT is Present. MCH (RBC) [Entitic mass] 25.1 pg 27.0-32.0 [facility] Nucleated RBC/100 WBC (Bld) [Ratio] 0 % 0-5 [facility] MCHC Auto (RBC) [Mass/Vol]Or dered By: Keisha Williamson on 06-20-2023 MCHC (RBC) [Mass/Vol] 28.9 g/dL 32-36 [facility] No Panel InformationOrdered By: Keisha Williamson on 06-20-2023 C-Reactive Protein High Sensitivity 13.30 mg/L <3.00 [facility] Comment on above: Low Relative Risk of CVD <1.0 mg/L Average Relative Risk of CVD 1.0 - 3.0 mg/L High Relative Risk of CVD >3.0 mg/L Estimated GFR (MDRD) Amer 111 mL/min >60 [facility] Comment on above: GFR Calc Estimated GFR (MDRD) Non-Af Amer 92 mL/min >60 [facility] Comment on above: Non- GFR Calc Platelets bldOrdered By: Bryanna Williamson on 06-20-2023 Platelets (Bld) [#/Vol] 438 10*3/uL 150-450 [facility] Serum or plasma albumin azra urement (mass/volume)Ordered By: Keisha Williamson on 06-20-2023 Albumin [Mass/Vol] 3.5 g/dL 3.2-5.0 [facility] Serum or plasma albumin/glob ulin mass ratioOrdered By: Keisha Williamson on 06-20-2023 Albumin/Globulin [Mass ratio] 0.7 {ratio} 0.9-2.4 [facility] Serum or plasma calcium zara urement (mass/volume)Ordered By: Keisha Williamson on 06-20-2023 Calcium [Mass/Vol] 9.2 mg/dL 8.5-10.1 [facility] Serum or plasma creatinine m easurement (mass/volume)Ordered By: Keisha Williamson on 06-20-2023 Creatinine [Mass/Vol] 0.68 mg/dL 0.55-1.02 [facility] Comment on above: The validity of the calculated GFR & GFRAA in patients over 70 years has not been determined. Clinical correlation is essential. Serum or plasma urea nitroge n measurement (mass/volume)Ordered By: Keisha Williamson on 06-20-2023 Urea nitrogen [Mass/Vol] 12 mg/dL 7-18 [facility] Thin prep Papanicolaou smear with manual screeningOrdered By: Keisha Williamson on 06-20-2023 Thin prep Papanicolaou smear with manual screening 21 U/L 15-37 [facility] Thin prep Papanicolaou smear with manual screening -2 5-15 [facility] Absolute lymphocyte countOrd ered By: Dr. Ramos on 12-02-2022 Lymphocytes Auto (Unsp spec) [#/Vol] 2.99 10*3/uL 0.83-4.51 [facility] Basophil percentageOrdered B y: Dr. Ramos on 12-02-2022 Basophils/100 WBC (Bld) 0.3 % 0-1 [facility] Bilirubin [Mass/Vol] 0.20 mg/dL 0.20-1.00 [facility] Comment on above: For patients on eltr ombopag therapy, use of [place] TBIL is not recommended. Chloride [Moles/Vol] 101 mmol/L 98-107 [facility] Cholesterol [Mass/Vol] 208 mg/dL <200 [facility] Comment on above: <200 mg/dL Desirable 200-240 mg/dL Borderline >240 mg/dL High Risk Eosinophils/100 WBC (Bld) 1.1 % 0-5 [facility] Glucose [Mass/Vol] 96 mg/dL 74-106 [facility] Neutrophils (Bld) [#/Vol] 3.3 10*3/uL 2.0-7.7 [facility] Neutrophils/100 WBC (Bld) 46.2 % 47-70 [facility] Potassium [Moles/Vol] 4.4 mmol/L 3.5-5.1 [facility] Protein [Mass/Vol] 8.2 g/dL 6.4-8.2 [facility] Sodium [Moles/Vol] 133 mmol/L 136-145 [facility] Triglyceride [Mass/Vol] 146 mg/dL <199 [facility] [place] Comment on above: The drugs N-Acetylcy steine and Metamizole may falsely depress this assay.Serum Triglycerides Reference Interval Normal <150 mg/dL Borderline high 150 - 199 mg/dL High 200 - 499 mg/dL Very High > or = 500 mg/dL WBC (Bld) [#/Vol] 7.1 10*3/uL 4.4-11.0 [facility] Blood erythrocytes count (nu mber/volume)Ordered By: Dr. Ramos on 12-02-2022 RBC (Bld) [#/Vol] 4.30 10*6/uL 4.2-5.4 [facility] Blood hemoglobin measurement (mass/volume)Ordered By: Dr. Ramos on 12-02-2022 Hemoglobin (Bld) [Mass/Vol] 11.4 g/dL 12.0-15.0 [facility] Blood lymphocytes/100 leukoc ytesOrdered By: Dr. Ramos on 12-02-2022 Lymphocytes/100 WBC (Bld) 41.9 % 19-41 [facility] Blood monocytes/100 leukocyt esOrdered By: Dr. Ramos on 12-02-2022 Monocytes/100 WBC (Bld) 10.1 % 0-10 [facility] Blood platelet mean volumeOr dered By: Dr. Ramos on 12-02-2022 Platelet mean volume (Bld) [Entitic vol] 8.6 fL 6.2-12.0 [facility] Determination of erythrocyte mean corpuscular volume (MCV)Ordered By: Dr. Ramos on 12-02-2022 MCV (RBC) [Entitic vol] 91.4 fL 81-99 [facility] [place] Hematocrit Auto (Bld) [Volum e fraction]Ordered By: Dr. Ramos on 12-02-2022 Hematocrit (Bld) [Volume fraction] 39.3 % 37-47 [facility] Laboratory - Chemistry and C hemistry - challengeOrdered By: Dr. Ramos on 12-02-2022 ALP [Catalytic activity/Vol] 88 U/L 45-117 [facility] ALT [Catalytic activity/Vol] 15 U/L 13-56 [facility] CO2 [Moles/Vol] 27.0 mmol/L 21.0-32.0 [facility] Globulin (S) [Mass/Vol] 4.6 g/dL 2.2-4.2 [facility] [place] Urea nitrogen/Creatinine [Mass ratio] 22.0 mg/mg 10-20 [facility] Laboratory - Hematology and Cell countsOrdered By: Dr. Ramos on 12-02-2022 Erythrocyte distribution width (RBC) [Entitic vol] 56.0 fL 35.1-43.9 [facility] Erythrocyte distribution width (RBC) [Ratio] 16.7 % 11.6-14.6 [facility] Immature granulocytes/100 WBC (Bld) 0.400 % 0.0-0.9 [facility] Comment on above: IG% - Immature Granu locytes (promyelocytes, myelocytes and metamyelocytes) > 1% indicates that a LEFT SHIFT is Present. MCH (RBC) [Entitic mass] 26.5 pg 27.0-32.0 [facility] Nucleated RBC/100 WBC (Bld) [Ratio] 0 % 0-5 [facility] MCHC Auto (RBC) [Mass/Vol]Or dered By: Dr. Ramos on 12-02-2022 MCHC (RBC) [Mass/Vol] 29.0 g/dL 32-36 [facility] No Panel InformationOrdered By: Dr. Ramos on 12-02-2022 Estimated GFR (MDRD) Amer 96 mL/min >60 [facility] Comment on above: GFR Calc Estimated GFR (MDRD) Non-Af Amer 79 mL/min >60 [facility] Comment on above: Non- GFR Calc Platelets bldOrdered By: Dr. Ramos on 12-02-2022 Platelets (Bld) [#/Vol] 402 10*3/uL 150-450 [facility] Serum or plasma albumin zara urement (mass/volume)Ordered By: Dr. aRmos on 12-02-2022 Albumin [Mass/Vol] 3.6 g/dL 3.2-5.0 [facility] Serum or plasma albumin/glob ulin mass ratioOrdered By: Dr. Ramos on 12-02-2022 Albumin/Globulin [Mass ratio] 0.8 {ratio} 0.9-2.4 [facility] Serum or plasma calcium zara urement (mass/volume)Ordered By: Dr. Ramos on 12-02-2022 Calcium [Mass/Vol] 9.8 mg/dL 8.5-10.1 [facility] Serum or plasma cholesterol in HDL measurement (mass/volume)Ordered By: Dr. Ramos on 12-02-2022 Cholesterol in HDL [Mass/Vol] 55 mg/dL >40 [facility] Comment on above: The drugs N-Acetylcy steine and Metamizole may falsely depress this assay. Reference Range HDL <40 mg/dL Low HDL Cholesterol HDL >or= 60 mg/dL High HDL Cholesterol Serum or plasma cholesterol in VLDL measurement (mass/volume)Ordered By: Dr. Ramos on 12-02-2022 Cholesterol in VLDL [Mass/Vol] 29 mg/dL 5-40 [facility] Serum or plasma creatinine m easurement (mass/volume)Ordered By: Dr. Ramos on 12-02-2022 Creatinine [Mass/Vol] 0.77 mg/dL 0.55-1.02 [facility] Comment on above: The validity of the calculated GFR & GFRAA in patients over 70 years has not been determined. Clinical correlation is essential. Serum or plasma low density lipoprotein (LDL) cholesterol measurement (mass/volume)Ordered By: Dr. Ramos on 12-02-2022 Cholesterol in LDL [Mass/Vol] 124 mg/dL 0-130 [facility] Serum or plasma urea nitroge n measurement (mass/volume)Ordered By: Dr. Ramos on 12-02-2022 Urea nitrogen [Mass/Vol] 17 mg/dL 7-18 [facility] Thin prep Papanicolaou smear with manual screeningOrdered By: Dr. Ramos on 12-02-2022 Thin prep Papanicolaou smear with manual screening 18 U/L 15-37 [facility] Thin prep Papanicolaou smear with manual screening 5 5-15 [facility] Office Visit: asthmaon 02-17 Dietary management education, guidance, and counseling (procedure) yes Invalid Interpretation Code [facility] Phone: Documentation of current medications (procedure) Done Invalid Interpretation Code [facility] Phone: Protein mass conc Done [facility] Phone[facility] Tobacco smoking status [facility] Never [facility] Work Phone: Tobacco smoking status [facility] Former smoker [facility] Phone: Tobacco use [facility] Former smoker Invalid Interpretation Code [facility] Phone: Office Visit: Spine Visiton 07-05-2016 Fall risk assessment [facility] Phone: Lab Report: Basic Metabolic Profile (BMP)on 03-02-2016 Anion gap 8 mmol/L Invalid Interpretation Code 5-15 [facility] Phone: Anion gap molar conc 8 mmol/L 5-15 [facility] Phone: Calcium mass conc 9.6 mg/dL 8.5-10.1 [facility] Work Phone: Chloride molar conc 103 mmol/L 98-107 [facility] Phone: CO2 27.0 mmol/L Invalid Interpretation Code 21.0-32.0 [facility] Phone: CO2 ppres (BldV) 27.0 mmol/L 21.0-32.0 [facility] Phone: Creatinine mass conc 1.11 mg/dL 0.55-1.20 [facility] Phone: eGFR (non-black) 65 mL/min/{1.73_m2} Invalid Interpretation Code >60 [facility] Work Phone: EST GFR - AA 65 mL/min >60 [facility] Work Phone: GFR/1.73 sq M predicted among non-blacks MDRD vol rate/area (S/P/Bld) 53 mL/min/{1.73_m2} Low >60 [facility] Work Phone: Glucose 88 mg/dL Invalid Interpretation Code 70-110 [facility] Work Phone: Glucose mass conc 88 mg/dL 70-110 [facility] Work Phone: Potassium molar conc 3.4 mmol/L Low 3.5-5.1 [facility] Work Phone: Sodium molar conc 138 mmol/L 136-145 [facility] Work Phone: Urea nitrogen mass conc 18 mg/dL 7-18 [facility] Work Phone: Urea nitrogen/Creatinine mass ratio 16.2 RATIO 10-20 [facility] Work Phone: Lab Report: GGTPon 6 Gamma glutamyl transferase enzyme act/vol 235 U/L High 5-55 [facility] Work Phone: Lab Report: Liver Profileon 12-18-2015 Albumin mass conc 3.4 g/dL 3.4-5.0 [facility] Work Phone: Alkaline phosphatase (ALP) 145 U/L High 50-136 [facility] Work Phone: ALP enzyme act/vol (Bld) 145 U/L High 50-136 [facility] Work Phone: ALT enzyme act/vol 37 U/L 12-78 [facility] Work Phone: AST enzyme act/vol 19 U/L 15-37 [facility] Work Phone: Bilirubin mass conc 0.40 mg/dL 0.20-1.00 [facility] Work Phone: Bilirubin.direct mass conc 0.12 mg/dL 0.00-0.30 [facility] Work Phone: Globulin 4.3 g/dL High 2.3-3.5 [facility] Work Phone: Globulin mass conc (S) 4.3 g/dL High 2.3-3.5 [facility] Work Phone: Protein mass conc 7.7 g/dL 6.4-8.2 [facility] Phone: Replaced Document: Hepatitis C,RNA PCR Viral Loadon 11-28-2015 comments, additional Comment Invalid Interpretation Code . [facility] Work Phone: HCV log 10 Test not performed . [facility] Work Phone: HCV QT PCR HCV Not Detected IU/mL . [facility] Phone: Hepatitis C virus (HCV) RNA, PCR, quantitative HCV Not Detected IU/mL Invalid Interpretation Code . [facility] Work Phone: Heptimax HCV RNA Log Test not performed Invalid Interpretation Code . [facility] Work Phone: TEST INFO: Comment . [facility] Work Phone: Lab Report: Anti-Mitochondri jackie Brown 11-18-2015 GE use only - for [employer] import when terms are not otherwise specified <20.0 Units Invalid Interpretation Code 0.0-20.0 [facility] Work Phone: MITOCHN AB [id number] <20.0 Units 0.0-20.0 [facility] Work Phone: Lab Report: ANTINUCLEAR ANTI BODIES DIRECTon 11-17-2015 FLAKITA Titer Positive High Negative [facility] Work Phone: Nuclear Ab IA Qn (S) Positive High Negative [facility] Phone: Lab Report: Alpha Antitrypsi n Serumon 11-17-2015 A- [id number] 164 mg/dL 90-200 [facility] Work Phone: [id number], serum 164 mg/dL Invalid Interpretation Code 90-200 [facility] Work Phone: Lab Report: Ceruloplasminon 11-17-2015 Ceruloplasmin mass conc 35.1 mg/dL 19.0-39.0 [facility] Phone: Lab Report: Hepatitis A AB, Totalon 11-17-2015 HAV Ab IA Qn Negative Negative [facility] Work Phone: Lab Report: Hepatitis B Core Ab Totalon 11-17-2015 HBV core Ab IA Qn (S) Negative Negative [facility] Phone: Lab Report: Transferrinon Transferrin mass conc 295 mg/dL 200-370 [facility] Phone: Lab Report: Comprehensive Me tabolic Profilon 11-15-2015 Albumin/Globulin mass ratio 0.8 {ratio} Low 0.9-2.4 [facility] Work Phone: Lab Report: Ferritinon 11-14 Ferritin mass conc 126 ng/mL 8-252 [facility] Work Phone: Lab Report: CRPon 11-14-2015 CRP mass conc 1.03 mg/dL High Units converted. See lab report for original value. [facility] Phone: Lab Report: Erythrocyte Sed Rateon 11-14-2015 ESR Velocity (Bld) 35 mm/h High 0-30 [facility] Work Phone: Lab Report: Prothrombin Time w/INRon 11-14-2015 INR Coag RelTime (PPP) 0.9 {INR} [facility] Phone: INR in blood by coagulation 0.9 {INR} Invalid Interpretation Code [facility] Phone: Prothrombin time (PT) Coag time (PPP) 12.9 s 11.7-14.9 [facility] Work Phone: Replaced Document: (P) CBC W /Diff, Automatedon 11-14-2015 Basophils/100 leukocytes 0.0 % Invalid Interpretation Code 0-1 [facility] Phone: Basophils/100 WBC (Bld) 0.0 % 0-1 [facility] Phone: Eosinophils/100 leukocytes 0.9 % Invalid Interpretation Code 0-5 [facility] Work Phone: Eosinophils/100 WBC (Bld) 0.9 % 0-5 [facility] Work Phone: Erythrocyte distribution width Ratio (RBC) 53.7 fL High 35.1-43.9 [facility] Work Phone: Erythrocyte distribution width Ratio (RBC) 16.1 % High 11.6-14.6 [facility] Work Phone: Erythrocytes (RBC) 3.97 10*6/uL Low 4.2-5.4 [facility] Work Phone: Hematocrit (HCT) 36.2 % Low 37-47 [facility] Work Phone: Hematocrit Volume Fraction (Bld) 36.2 % Low 37-47 [facility] Work Phone: Hemoglobin mass conc (Bld) 11.0 g/dL Low 12.0-15.0 [facility] Work Phone: Immature granulocytes #/vol (Bld) 0.300 % 0.0-0.9 [facility] Work Phone: immature granulocytes, percentage of total cells, blood 0.300 % Invalid Interpretation Code 0.0-0.9 [facility] Work Phone: Lymphocytes 1.15 X10 3/UL Invalid Interpretation Code 0.83-4.51 [facility] Work Phone: Lymphocytes #/vol (Bld) 1.15 X10 3/UL 0.83-4.51 [facility] Work Phone: Lymphocytes/100 leukocytes 36.4 % Invalid Interpretation Code 19-41 [facility] Work Phone: Lymphocytes/100 WBC (Bld) 36.4 % 19-41 [facility] Work Phone: MCH 27.7 pg Invalid Interpretation Code 27.0-32.0 [facility] Work Phone: MCH Entitic mass (RBC) 27.7 pg 27.0-32.0 [facility] Work Phone: MCHC 30.4 G/GL Low 32-36 [facility] Work Phone: MCHC mass conc (RBC) 30.4 G/GL Low 32-36 [facility] Work Phone: MCV 91.2 fL Invalid Interpretation Code 81-99 [facility] Work Phone: MCV Entitic volume (RBC) 91.2 fL 81-99 [facility] Work Phone: Monocytes/100 leukocytes 11.7 % High 0-10 [facility] Work Phone: Monocytes/100 WBC (Bld) 11.7 % High 0-10 [facility] Work Phone: neutrophil count, blood 1.6 X10 3/UL Low 2.0-7.7 [facility] Work Phone: Neutrophils #/vol (Bld) 1.6 X10 3/UL Low 2.0-7.7 [facility] Work Phone: Neutrophils/100 leukocytes 50.7 % Invalid Interpretation Code 47-70 [facility] Work Phone: Neutrophils/100 WBC (Bld) 50.7 % 47-70 [facility] Work Phone: Platelet mean volume Entitic volume (Bld) 8.6 fL 6.2-12.0 [facility] Work Phone: Platelets 329 10*3/mm3 Invalid Interpretation Code 150-450 [facility] Work Phone: Platelets #/vol (Bld) 329 10*3/mm3 150-450 [facility] Work Phone: PMV by Swapna 8.6 fL Invalid Interpretation Code 6.2-12.0 [facility] Work Phone: RBC #/vol (Bld) 3.97 10*6/uL Low 4.2-5.4 [facility] Work Phone: RDW-CA 16.1 % High 11.6-14.6 [facility] Work Phone: red blood cell distribution width, size density 53.7 fL High 35.1-43.9 [facility] Work Phone: WBC #/vol (Bld) 3.2 10*3/uL Low 4.4-11.0 [facility] Work Phone: WBC (Leukocytes) 3.2 10*3/uL Low 4.4-11.0 [facility] Work Phone: Lab Report: Lipid Profileon 10-16-2015 Cholesterol in HDL mass conc 57 mg/dL [facility] Work Phone: Cholesterol in LDL mass conc 75 mg/dL 0-130 [facility] Work Phone: Cholesterol mass conc 158 mg/dL 200 [facility] Work Phone: Lipoprotein.pre-beta mass conc 26 mg/dL 5-40 [facility] Work Phone: Triglyceride mass conc 129 mg/dL [facility] Work Phone: Office Visit: New Patient -- EGD/Cscopeon 06-16-2015 MG Breast screening Normal Bilateral [facility] Phone: Office Visit: 3 month F/Uon 05-16-2015 Protein mass conc yes [facility] Work Phone: Smoking cessation education (procedure) yes Invalid Interpretation Code [facility] Phone: Lab Report: (P) Urinalysis, Completeon 02-11-2015 Albumin Ql (U) Negative Negative [facility] Work Phone: Bilirubin Ql (U) Negative Negative [facility] Work Phone: Clarity Nom (U) Clear Clear [facility] Work Phone: Color Nom (U) Yellow Yellow [facility] Work Phone: Glucose Ql (U) Normal mg/dl Normal [facility] Work Phone: Ketones mass conc (U) Negative Negative [facility] Work Phone: Leukocyte esterase Test strip Ql (U) Negative Negative [facility] Work Phone: Nitrite Urine Negative Invalid Interpretation Code Negative [facility] Work Phone: Occult Blood, urine Negative Invalid Interpretation Code Negative [facility] Work Phone: OCCULT BLOOD-UR Negative Negative [facility] Work Phone: pH (U) 7.0 [pH] 5.0 - 8.0 [facility] Work Phone: Specific gravity Refractometry Relative Density (U) 1.010 1.002-1.030 [facility] Work Phone: Urine, bilirubin presence Negative Invalid Interpretation Code Negative [facility] Work Phone: Urine, ketones presence Negative Invalid Interpretation Code Negative [facility] Work Phone: Urine, pH 7.0 [pH] Invalid Interpretation Code 5.0 - 8.0 [facility] Work Phone: Urine, protein Negative Invalid Interpretation Code Negative [facility] Work Phone: urobilinogen, urine, by dipstick Normal mg/dl Invalid Interpretation Code Normal [facility] Phone: Lab Report: CBC W/Diff, Auto matedon 02-11-2015 Absolute Neut 5.5 X10 3/UL 2.0-7.7 [facility] Work Phone: Absolute Neutrophil count 5.5 X10 3/UL Invalid Interpretation Code 2.0-7.7 [facility] Work Phone: Lymphocytes 3.17 X10 3/UL Invalid Interpretation Code 0.83-4.51 [facility] Work Phone: Lymphocytes #/vol (Bld) 3.17 X10 3/UL 0.83-4.51 [facility] Work Phone: Lab Report: Urinalysis, Comp leteon 02-11-2015 Bacteria LM.HPF #/area (Urine sed) 1+ /hpf None Seen [facility] Work Phone: Epithelial cells LM.HPF #/area (Urine sed) 0-5 SEEN 5-10 [facility] Work Phone: Mucus Ql (Urine sed) 0 SEEN [facility] Phone: RBC LM.HPF #/vol (Urine sed) 0-5 SEEN 0-5 [facility] Phone: Urine, bacteria in sediment 1 /[HPF] Invalid Interpretation Code None Seen [facility] Work Phone: Urine, mucus presence in sediment 0 SEEN Invalid Interpretation Code [facility] Work Phone: WBC #/vol (Bld) 0 SEEN 0-5 [facility] Work Phone: WBC (Leukocytes) 0 SEEN Invalid Interpretation Code 0-5 [facility] Phone: Office Visit: Dysuria, Right Flank Pain, and Coughon 05-20-2014 Appearance Nom (U) clear [facility] Phone: blood in urine (hemoglobin) by dipstick hemolyzed trace Invalid Interpretation Code [facility] Phone: Glucose Test strip mass conc (U) Negative [facility] Work Phone: Nitrite Ql (U) Negative [facility] Phone: Urine, glucose presence Negative Invalid Interpretation Code [facility] Phone: Urine, nitrite presence Negative Invalid Interpretation Code [facility] Phone: Urobilinogen Test strip Ql (U) 0.2 [facility] Phone: Lab Report: T4on 04-23-2014 T4 mass conc 8.2 ug/dL Normal 4.8-13.9 [facility] Work Phone: Lab Report: TSHon 04-23-2014 Thyrotropin Qn 1.16 u[iU]/mL Normal 0.358-3.74 [facility] Phone: Replaced Document: Anya ESTEVEZ Observationson 04-18-2014 EKG QRS axis 34 deg [facility] Phone: electrocardiogram interpretation Sinus Rhythm - Negative precordial T-waves. WITHIN NORMAL LIMITS Invalid Interpretation Code [facility] Work Phone: Interpretation Sinus Rhythm - Negative precordial T-waves. WITHIN NORMAL LIMITS [facility] Work Phone: P [place] 57 deg [facility] Work Phone: P wave axis, electrocardiogram 57 deg Invalid Interpretation Code [facility] Work Phone: IL Interval 136 ms [facility] Work Phone: IL interval, electrocardiogram 136 ms Invalid Interpretation Code [facility] Work Phone: Pulse (Heart Rate) 84 /min Invalid Interpretation Code [facility] Work Phone: QRS axis, electrocardiogram 34 deg Invalid Interpretation Code [facility] Work Phone: QRS Duration 102 ms [facility] Work Phone: QRS duration, electrocardiogram 102 ms Invalid Interpretation Code [facility] Work Phone: QT Interval new path ms [facility] Work Phone: QT interval, electrocardiogram new path ms Invalid Interpretation Code [facility] Work Phone: T [place] 64 deg [facility] Work Phone: T wave axis, electrocardiogram 64 deg Invalid Interpretation Code [facility] Work Phone: Replaced Document: CRPon CRP mass conc 4.55 mg/L High 0.0-3.0 [facility] Work Phone: Office Visit: New Patient -- EGD/Cscopeon 02-28-2006 Colonoscopy (procedure) Unknown Invalid Interpretation Code [facility] Work Phone: Protein mass conc Unknown [facility] Work Phone: Culture, urine Bacteria identified Cx Nom (U) Mixed Gram Pos & Gram Neg Org [facility] Work Phone: Vital Signs Date Time Vital Sign Value Performing Clinician Facility 06-24-2025 11:08-0400 Body height 160.[address] Janet Ramos DO Work Phone: [facility] 06-24-2025 11:08-0400 Body mass index (BMI) [Ratio] 39.9 kg/m2 Dr. Janet Ramos DO Work Phone: [facility] 06-24-2025 11:08-0400 Body weight 102.[address] Janet Ramos DO Work Phone: [facility] 06-12-2025 13:57-0400 Body mass index (BMI) [Ratio] 40.2 kg/m2 Dr. Janet Ramos DO Work Phone: [facility] 06-12-2025 13:57-0400 Body temperature 98.3 [degF] Dr. Janet Ramos DO Work Phone: [facility] 06-12-2025 13:57-0400 Body weight 103.[address] Janet Ramos DO Work Phone: [facility] 06-12-2025 13:57-0400 Diastolic blood pressure 82 mm[Hg] Dr. Janet Ramos DO Work Phone: [facility] 06-12-2025 13:57-0400 Heart rate 73 /min Dr. Janet Ramos DO Work Phone: [facility] 06-12-2025 13:57-0400 Respiratory rate 18 /min Dr. Janet Ramos DO Work Phone: [facility] 06-12-2025 13:57-0400 SaO2% (BldA) [Mass fraction] 98 % Dr. Janet Ramos DO Work Phone: [facility] 06-12-2025 13:57-0400 Systolic blood pressure 134 mm[Hg] Dr. Janet Ramos DO Work Phone: [facility] 05-22-2025 11:00-0400 Body height 160.[address] Janet Ramos DO Work Phone: [facility] 05-22-2025 11:00-0400 Body weight 103.[address] Janet Ramos DO Work Phone: [facility] 05-05-2025 15:36-0400 Body temperature 97.8 [degF] Dr. Janet Ramos DO Work Phone: [facility] 05-05-2025 15:36-0400 Diastolic blood pressure 81 mm[Hg] Dr. Janet Ramos DO Work Phone: [facility] 05-05-2025 15:36-0400 Heart rate 73 /min Dr. Janet Ramos DO Work Phone: [facility] 05-05-2025 15:36-0400 Respiratory rate 22 /min Dr. Janet Ramos DO Work Phone: [facility] 05-05-2025 15:36-0400 SaO2% (BldA) [Mass fraction] 100 % Dr. Janet Ramos DO Work Phone: [facility] 05-05-2025 15:36-0400 Systolic blood pressure 161 mm[Hg] Dr. Janet Ramos DO Work Phone: [facility] 05-05-2025 11:30-0400 Body height 160.[address] Janet Ramos DO Work Phone: [facility] 05-05-2025 11:30-0400 Body mass index (BMI) [Ratio] 40.9 kg/m2 Dr. Janet Ramos DO Work Phone: [facility] 05-05-2025 11:30-0400 Body weight 104.[address] Janet Ramos DO Work Phone: [facility] 03-27-2025 11:32-0400 Body height 160.[address] Janet Ramos DO Work Phone: [facility] 03-27-2025 11:32-0400 Body weight 102.[address] Janet Ramos DO Work Phone: [facility] 03-27-2025 11:03-0400 Body height 160.[address] Janet Ramos DO Work Phone: [facility] 03-27-2025 11:03-0400 Body mass index (BMI) [Ratio] 40 kg/m2 Dr. Janet Ramos DO Work Phone: [facility] 03-27-2025 11:03-0400 Body temperature 97.6 [degF] Dr. Janet Ramos DO Work Phone: [facility] 03-27-2025 11:03-0400 Body weight 102.[address] Janet Ramos DO Work Phone: [facility] 03-27-2025 11:03-0400 Diastolic blood pressure 87 mm[Hg] Dr. Janet Ramos DO Work Phone: [facility] 03-27-2025 11:03-0400 Heart rate 64 /min Dr. Janet Ramos DO Work Phone: [facility] 03-27-2025 11:03-0400 Respiratory rate 18 /min Dr. Janet Ramos DO Work Phone: [facility] 03-27-2025 11:03-0400 SaO2% (BldA) [Mass fraction] 98 % Dr. Janet Ramos DO Work Phone: [facility] 03-27-2025 11:03-0400 Systolic blood pressure 130 mm[Hg] Dr. Janet Ramos DO Work Phone: [facility] 03-20-2025 14:43-0400 Body height 160.[address] Janet Ramos DO Work Phone: [facility] 03-20-2025 14:43-0400 Body mass index (BMI) [Ratio] 39.7 kg/m2 Dr. Janet Ramos DO Work Phone: [facility] 03-20-2025 14:43-0400 Body temperature 97.6 [degF] Dr. Janet Ramos DO Work Phone: [facility] 03-20-2025 14:43-0400 Body weight 101.[address] Janet Ramos DO Work Phone: [facility] 03-20-2025 14:43-0400 Diastolic blood pressure 74 mm[Hg] Dr. Janet Ramos DO Work Phone: [facility] 03-20-2025 14:43-0400 Heart rate 72 /min Dr. Janet Ramos DO Work Phone: [facility] 03-20-2025 14:43-0400 Respiratory rate 18 /min Dr. Janet Ramos DO Work Phone: [facility] 03-20-2025 14:43-0400 SaO2% (BldA) [Mass fraction] 98 % Dr. Janet Ramos DO Work Phone: [facility] 03-20-2025 14:43-0400 Systolic blood pressure 104 mm[Hg] Dr. Janet Ramos DO Work Phone: [facility] 03-07-2025 10:05-0400 Body temperature 97.6 [degF] Dr. Janet Ramos DO Work Phone: [facility] 03-07-2025 10:05-0400 Diastolic blood pressure 81 mm[Hg] Dr. Janet Ramos DO Work Phone: [facility] 03-07-2025 10:05-0400 Heart rate 70 /min Dr. Janet Ramos DO Work Phone: [facility] 03-07-2025 10:05-0400 Respiratory rate 16 /min Dr. Janet Ramos DO Work Phone: [facility] 03-07-2025 10:05-0400 SaO2% (BldA) [Mass fraction] 100 % Dr. Janet Ramos DO Work Phone: [facility] 03-07-2025 10:05-0400 Systolic blood pressure 124 mm[Hg] Dr. Janet Ramos DO Work Phone: [facility] 03-07-2025 08:10-0400 Body height 160.[address] Janet Ramos DO Work Phone: [facility] 03-07-2025 08:10-0400 Body mass index (BMI) [Ratio] 40.2 kg/m2 Dr. Janet Ramos DO Work Phone: [facility] 03-07-2025 08:10-0400 Body weight [address] Janet Ramos DO Work Phone: [facility] 02-22-2025 12:06-0400 Body temperature 96.7 [degF] Dr. Janet Ramos DO Work Phone: [facility] 02-22-2025 12:06-0400 Diastolic blood pressure 70 mm[Hg] Dr. Janet Ramos DO Work Phone: [facility] 02-22-2025 12:06-0400 Heart rate 66 /min Dr. Janet Ramos DO Work Phone: [facility] 02-22-2025 12:06-0400 Respiratory rate 16 /min Dr. Janet Ramos DO Work Phone: [facility] 02-22-2025 12:06-0400 Systolic blood pressure 135 mm[Hg] Dr. Janet Ramos DO Work Phone: [facility] 02-22-2025 09:28-0400 SaO2% (BldA) [Mass fraction] 98 % Dr. Janet Ramos DO Work Phone: [facility] 02-15-2025 08:10-0400 Body mass index (BMI) [Ratio] 37.9 kg/m2 Dr. Janet Ramos DO Work Phone: [facility] 02-15-2025 08:10-0400 Body weight 100.[address] Janet Ramos DO Work Phone: [facility] 01-23-2025 11:04-0400 Body height 162.[address] Janet Ramos DO Work Phone: [facility] 01-23-2025 11:04-0400 Body weight 101.[address] Janet Ramos DO Work Phone: [facility] 01-23-2025 09:44-0400 Body height 162.[address] Janet Ramos DO Work Phone: [facility] 01-23-2025 09:44-0400 Body mass index (BMI) [Ratio] 38.8 kg/m2 Dr. Janet Ramos DO Work Phone: [facility] 01-23-2025 09:44-0400 Body temperature 97.3 [degF] Dr. Janet Ramos DO Work Phone: [facility] 01-23-2025 09:44-0400 Body weight 102.[address] Janet Ramos DO Work Phone: [facility] 01-23-2025 09:44-0400 Diastolic blood pressure 69 mm[Hg] Dr. Janet Ramos DO Work Phone: [facility] 01-23-2025 09:44-0400 Heart rate 62 /min Dr. Janet Ramos DO Work Phone: [facility] 01-23-2025 09:44-0400 Respiratory rate 18 /min Dr. Janet Ramos DO Work Phone: [facility] 01-23-2025 09:44-0400 SaO2% (BldA) [Mass fraction] 96 % Dr. Janet Ramos DO Work Phone: [facility] 01-23-2025 09:44-0400 Systolic blood pressure 104 mm[Hg] Dr. Janet Ramos DO Work Phone: [facility] 01-03-2025 10:23-0400 Body height 162.[address] Janet Ramos DO Work Phone: [facility] 01-03-2025 10:23-0400 Body mass index (BMI) [Ratio] 39.4 kg/m2 Dr. Janet Ramos DO Work Phone: [facility] 01-03-2025 10:23-0400 Body weight 104.[address] Janet Ramos DO Work Phone: [facility] 01-03-2025 10:23-0400 Diastolic blood pressure 81 mm[Hg] Dr. Janet Ramos DO Work Phone: [facility] 01-03-2025 10:23-0400 Heart rate 73 /min Dr. Janet Ramos DO Work Phone: [facility] 01-03-2025 10:23-0400 Respiratory rate 18 /min Dr. Janet Ramos DO Work Phone: [facility] 01-03-2025 10:23-0400 SaO2% (BldA) [Mass fraction] 97 % Dr. Janet Ramos DO Work Phone: [facility] 01-03-2025 10:23-0400 Systolic blood pressure 128 mm[Hg] Dr. Janet Ramos DO Work Phone: [facility] 12-26-2024 10:56-0400 Body mass index (BMI) [Ratio] 38.72 kg/m2 Isabel Jie PA-C Work Phone: [facility] 12-26-2024 10:56-0400 Body weight 102.97 kg Isabel Jie PA-C Work Phone: [facility] 12-26-2024 10:56-0400 Diastolic blood pressure 79 mm[Hg] Isabel Jie PA-C Work Phone: [facility] 12-26-2024 10:56-0400 Heart rate 80 /min Isabel Jie PA-C Work Phone: [facility] 12-26-2024 10:56-0400 Respiratory rate 16 /min Isabel Jie PA-C Work Phone: [facility] 12-26-2024 10:56-0400 SaO2% (BldA) [Mass fraction] 100 % Isabel Jie PA-C Work Phone: [facility] 12-26-2024 10:56-0400 Systolic blood pressure 144 mm[Hg] Isabel Jie PA-C Work Phone: [facility] 12-19-2024 13:33-0400 Body mass index (BMI) [Ratio] 38.2 kg/m2 Dr. Janet Ramos DO Work Phone: [facility] 12-19-2024 13:33-0400 Body weight 101.[address] Janet Ramos DO Work Phone: [facility] 11-21-2024 15:01-0400 Body temperature 97.1 [degF] Dr. Janet Ramos DO Work Phone: [facility] 11-21-2024 15:01-0400 Diastolic blood pressure 64 mm[Hg] Dr. Janet Ramos DO Work Phone: [facility] 11-21-2024 15:01-0400 Heart rate 70 /min Dr. Janet Ramos DO Work Phone: [facility] 11-21-2024 15:01-0400 Respiratory rate 16 /min Dr. Janet Ramos DO Work Phone: [facility] 11-21-2024 15:01-0400 SaO2% (BldA) [Mass fraction] 100 % Dr. Janet Ramos DO Work Phone: [facility] 11-21-2024 15:01-0400 Systolic blood pressure 134 mm[Hg] Dr. Janet Ramos DO Work Phone: [facility] 11-21-2024 13:02-0400 Body height 162.[address] Janet Ramos DO Work Phone: [facility] 11-21-2024 13:02-0400 Body mass index (BMI) [Ratio] 38.2 kg/m2 Dr. Janet Ramos DO Work Phone: [facility] 11-21-2024 13:02-0400 Body weight [address] Janet Ramos DO Work Phone: [facility] 11-01-2024 14:43-0500 Diastolic blood pressure 78 mm[Hg] Dr. Janet Ramos DO Work Phone: [facility] 11-01-2024 14:43-0500 Heart rate 62 /min Dr. Janet Ramos DO Work Phone: [facility] 11-01-2024 14:43-0500 Respiratory rate 18 /min Dr. Janet Ramos DO Work Phone: [facility] 11-01-2024 14:43-0500 Systolic blood pressure 162 mm[Hg] Dr. Janet Ramos DO Work Phone: [facility] 10-27-2024 01:53-0500 Body weight 105.[address] Janet Ramos DO Work Phone: [facility] 10-25-2024 07:48-0500 Body mass index (BMI) [Ratio] 39.8 kg/m2 Dr. Janet Ramos DO Work Phone: [facility] 10-25-2024 07:48-0500 Body weight 105.[address] Janet Ramos DO Work Phone: [facility] 10-25-2024 07:48-0500 Diastolic blood pressure 85 mm[Hg] Dr. Janet Ramos DO Work Phone: [facility] 10-25-2024 07:48-0500 Heart rate 62 /min Dr. Janet Ramos DO Work Phone: [facility] 10-25-2024 07:48-0500 Respiratory rate 20 /min Dr. Janet Ramos DO Work Phone: [facility] 10-25-2024 07:48-0500 Systolic blood pressure 155 mm[Hg] Dr. Janet Ramos DO Work Phone: [facility] 10-18-2024 10:00-0500 Body height 162.[address] Janet Ramos DO Work Phone: [facility] 10-18-2024 10:00-0500 Body weight 105.[address] Janet Ramos DO Work Phone: [facility] 09-29-2024 17:21-0500 Body temperature 97.8 [degF] Dr. Janet Ramos DO Work Phone: [facility] 09-29-2024 17:21-0500 Diastolic blood pressure 82 mm[Hg] Dr. Janet Ramos DO Work Phone: [facility] 09-29-2024 17:21-0500 Heart rate 78 /min Dr. Janet Ramos DO Work Phone: [facility] 09-29-2024 17:21-0500 Respiratory rate 20 /min Dr. Janet Ramos DO Work Phone: [facility] 09-29-2024 17:21-0500 SaO2% (BldA) [Mass fraction] 100 % Dr. Janet Ramos DO Work Phone: [facility] 09-29-2024 17:21-0500 Systolic blood pressure 126 mm[Hg] Dr. Janet Ramos DO Work Phone: [facility] 09-29-2024 14:01-0500 Body mass index (BMI) [Ratio] 38.1 kg/m2 Dr. Janet Ramos DO Work Phone: [facility] 09-29-2024 14:01-0500 Body weight 100.[address] Janet Ramos DO Work Phone: [facility] 09-28-2024 14:43-0500 Body temperature 97.8 [degF] Dr. Janet Ramos DO Work Phone: [facility] 09-28-2024 14:43-0500 Diastolic blood pressure 74 mm[Hg] Dr. Janet Ramos DO Work Phone: [facility] 09-28-2024 14:43-0500 Heart rate 74 /min Dr. Janet Ramos DO Work Phone: [facility] 09-28-2024 14:43-0500 Respiratory rate 15 /min Dr. Janet Ramos DO Work Phone: [facility] 09-28-2024 14:43-0500 SaO2% (BldA) [Mass fraction] 96 % Dr. Janet Ramos DO Work Phone: [facility] 09-28-2024 14:43-0500 Systolic blood pressure 104 mm[Hg] [facility]. Janet Ramos DO Work Phone: [facility] [facility] 09-28-2024 09:21-0500 Body mass index (BMI) [Ratio] 38.1 kg/m2 Dr. Janet Ramos DO Work Phone: [facility] 09-28-2024 09:21-0500 Body weight 100.[address] Janet Ramos DO Work Phone: [facility] 09-20-2024 09:53-0500 Body mass index (BMI) [Ratio] 39.3 kg/m2 Dr. Janet Ramos DO Work Phone: [facility] 09-20-2024 09:53-0500 Body weight 104.[address] Janet Ramos DO Work Phone: [facility] 09-20-2024 09:53-0500 Diastolic blood pressure 93 mm[Hg] Dr. Janet Ramos DO Work Phone: [facility] 09-20-2024 09:53-0500 Heart rate 78 /min Dr. Janet Ramos DO Work Phone: [facility] 09-20-2024 09:53-0500 Respiratory rate 20 /min Dr. Janet Ramos DO Work Phone: [facility] 09-20-2024 09:53-0500 SaO2% (BldA) [Mass fraction] 96 % Dr. Janet Ramos DO Work Phone: [facility] 09-20-2024 09:53-0500 Systolic blood pressure 155 mm[Hg] Dr. Janet Ramos DO Work Phone: [facility] 09-19-2024 13:34-0500 Body mass index (BMI) [Ratio] 39.2 kg/m2 Dr. Janet Ramos DO Work Phone: [facility] 09-19-2024 13:34-0500 Body weight 104.[address] Janet Ramos DO Work Phone: [facility] 09-13-2024 09:30-0500 Body weight 104.[address] Janet Ramos DO Work Phone: [facility] 08-30-2024 10:50-0500 Body temperature 98 [degF] Dr. Janet Ramos DO Work Phone: [facility] 08-30-2024 10:50-0500 Diastolic blood pressure 72 mm[Hg] Dr. Janet Ramos DO Work Phone: [facility] 08-30-2024 10:50-0500 Heart rate 68 /min Dr. Janet Ramos DO Work Phone: [facility] 08-30-2024 10:50-0500 Respiratory rate 18 /min Dr. Janet Ramos DO Work Phone: [facility] 08-30-2024 10:50-0500 SaO2% (BldA) [Mass fraction] 100 % Dr. Janet Ramos DO Work Phone: [facility] 08-30-2024 10:50-0500 Systolic blood pressure 122 mm[Hg] Dr. Janet Ramos DO Work Phone: [facility] 08-30-2024 09:09-0500 Body mass index (BMI) [Ratio] 39.9 kg/m2 Dr. Janet Ramos DO Work Phone: [facility] 08-30-2024 09:09-0500 Body weight 105.[address] Janet Ramos DO Work Phone: [facility] 08-16-2024 10:39-0500 Body mass index (BMI) [Ratio] 41.1 kg/m2 Dr. Janet Ramos DO Work Phone: [facility] 08-16-2024 10:39-0500 Body weight 105.[address] Janet Ramos DO Work Phone: [facility] 08-16-2024 10:39-0500 Diastolic blood pressure 85 mm[Hg] Dr. Janet Ramos DO Work Phone: [facility] 08-16-2024 10:39-0500 Heart rate 85 /min Dr. Janet Ramos DO Work Phone: [facility] 08-16-2024 10:39-0500 Respiratory rate 16 /min Dr. Janet Ramos DO Work Phone: [facility] 08-16-2024 10:39-0500 SaO2% (BldA) [Mass fraction] 90 % Dr. Janet Ramos DO Work Phone: [facility] 08-16-2024 10:39-0500 Systolic blood pressure 140 mm[Hg] Dr. Janet Ramos DO Work Phone: [facility] 08-06-2024 10:00-0500 Body weight 104.[address] Janet Ramos DO Work Phone: [facility] 12-15-2023 09:00-0400 Body weight 106.[address] Janet Ramos Work Phone: [facility] 11-29-2023 10:01-0400 Body height 160.[address] Cristobal Olmos Work Phone: [facility] 11-29-2023 10:01-0400 Body weight 110.[address] Cristobal Olmos Work Phone: [facility] 11-28-2023 09:39-0400 Body mass index (BMI) [Ratio] 43.2 kg/m2 Dr. Cristobal Olmos Work Phone: [facility] 11-24-2023 09:15-0400 Body height 160.[address] Cristobal Olmos Work Phone: [facility] 11-24-2023 09:15-0400 Body weight 107.[address] Cristobal Olmos Work Phone: [facility] 10-31-2023 09:23-0500 Body height 160.[address] Cristobal Olmos Work Phone: [facility] 10-31-2023 09:23-0500 Body weight 109.[address] Cristobal Olmos Work Phone: [facility] 10-24-2023 07:33-0500 Body height 160.02 cm DIRECTOR OF PHYSICAL SECURITY-Ti Williamson Work Phone: [facility] 10-24-2023 07:33-0500 Body mass index (BMI) [Ratio] 42.5 kg/m2 DIRECTOR OF PHYSICAL SECURITY-C Keisha Williamson Work Phone: [facility] 10-24-2023 07:33-0500 Body temperature 98 [degF] DIRECTOR OF PHYSICAL SECURITY-C Keisha Williamson Work Phone: [facility] 10-24-2023 07:33-0500 Body weight 108.86 kg DIRECTOR OF PHYSICAL SECURITY-C Keisha Clay Work Phone: [facility] 10-24-2023 07:33-0500 Diastolic blood pressure 79 mm[Hg] DIRECTOR OF PHYSICAL SECURITY-C Keisha Clay Work Phone: [facility] 10-24-2023 07:33-0500 Heart rate 75 /min DIRECTOR OF PHYSICAL SECURITY-C Keisha Clay Work Phone: [facility] 10-24-2023 07:33-0500 Respiratory rate 20 /min DIRECTOR OF PHYSICAL SECURITY-C Keisha Clay Work Phone: [facility] 10-24-2023 07:33-0500 SaO2% (BldA) [Mass fraction] 99 % DIRECTOR OF PHYSICAL SECURITY-C Keisha Clay Work Phone: [facility] 10-24-2023 07:33-0500 Systolic blood pressure 123 mm[Hg] DIRECTOR OF PHYSICAL SECURITY-C Keisha Clay Work Phone: [facility] 10-05-2023 09:53-0500 Body weight 112.03 kg DIRECTOR OF PHYSICAL SECURITY-C Keisha Clay Work Phone: [facility] 09-28-2023 11:14-0500 Body height 160.02 cm DIRECTOR OF PHYSICAL SECURITY-C Keisha Clay Work Phone: [facility] 09-28-2023 11:14-0500 Body mass index (BMI) [Ratio] 43.2 kg/m2 DIRECTOR OF PHYSICAL SECURITY-C Keisha Clay Work Phone: [facility] 09-28-2023 11:14-0500 Body weight 110.67 kg DIRECTOR OF PHYSICAL SECURITY-C Keisha Clay Work Phone: [facility] 09-28-2023 11:14-0500 Diastolic blood pressure 81 mm[Hg] DIRECTOR OF PHYSICAL SECURITY-C Keisha Clay Work Phone: [facility] 09-28-2023 11:14-0500 Heart rate 76 /min DIRECTOR OF PHYSICAL SECURITY-C Keisha Clay Work Phone: [facility] 09-28-2023 11:14-0500 Respiratory rate 16 /min DIRECTOR OF PHYSICAL SECURITY-C Keisha Clay Work Phone: [facility] 09-28-2023 11:14-0500 Systolic blood pressure 123 mm[Hg] DIRECTOR OF PHYSICAL SECURITY-C Keisha Williamson Work Phone: [facility] 09-14-2023 09:30-0500 Body weight 111.76 kg DIRECTOR OF PHYSICAL SECURITY-C Keisha Williamson Work Phone: [facility] 08-29-2023 00:21-0500 Body weight 111.22 kg DIRECTOR OF PHYSICAL SECURITY-C Keisha Williamson Work Phone: [facility] 08-17-2023 14:00-0500 Body height 160.[address] Janet Ramos Work Phone: [facility] 08-17-2023 14:00-0500 Body weight 111.[address] Janet Ramos Work Phone: [facility] 08-04-2023 13:45-0500 Body height 160.[address] Janet Ramos Work Phone: [facility] 08-04-2023 13:45-0500 Body weight 108.[address] Janet Ramos Work Phone: [facility] 08-04-2023 13:45-0500 Heart rate 86 /min Dr. Janet Ramos Work Phone: [facility] 08-04-2023 13:45-0500 SaO2% (BldA) [Mass fraction] 98 % Dr. Janet Ramos Work Phone: [facility] 07-29-2023 00:40-0500 Body weight 112.[address] Janet Ramos Work Phone: [facility] 07-25-2023 08:17-0500 Body height 160.[address] Janet Ramos Work Phone: [facility] 07-25-2023 08:17-0500 Body weight 112.[address] Janet Ramos Work Phone: [facility] 07-12-2023 14:10-0500 Body mass index (BMI) [Ratio] 43 kg/m2 Dr. Janet Ramos Work Phone: [facility] 07-12-2023 14:10-0500 Body temperature 97.3 [degF] Dr. Janet Ramos Work Phone: [facility] 07-12-2023 14:10-0500 Body weight 110.[address] Janet Ramos Work Phone: [facility] 07-12-2023 14:10-0500 Diastolic blood pressure 74 mm[Hg] Dr. Janet Ramos Work Phone: [facility] 07-12-2023 14:10-0500 Heart rate 92 /min Dr. Janet Ramos Work Phone: [facility] 07-12-2023 14:10-0500 SaO2% (BldA) [Mass fraction] 99 % Dr. Janet Ramos Work Phone: [facility] 07-12-2023 14:10-0500 Systolic blood pressure 107 mm[Hg] Dr. Janet Ramos Work Phone: [facility] 07-04-2023 09:30-0500 Body weight 110.[address] Janet Ramos Work Phone: [facility] 06-29-2023 00:36-0400 Body weight 114.[address] Janet Ramos Work Phone: [facility] 06-06-2023 10:38-0400 Body height 160.[address] Janet Ramos Work Phone: [facility] 06-06-2023 10:38-0400 Body weight 114.[address] Janet Ramos Work Phone: [facility] 05-27-2023 09:10-0400 Body height 160.[address] Janet Ramos Work Phone: [facility] 05-27-2023 09:10-0400 Body mass index (BMI) [Ratio] 44.1 kg/m2 Dr. Janet Ramos Work Phone: [facility] 05-27-2023 09:10-0400 Body weight 113.[address] Janet Ramos Work Phone: [facility] 05-11-2023 11:00-0400 Body weight 112.[address] Janet Ramos Work Phone: [facility] 04-20-2023 11:02-0400 Body height 160.02 cm [facility] 04-20-2023 11:02-0400 Body weight 113.03 kg [facility] 03-22-2023 09:33-0400 Body mass index (BMI) [Ratio] 43.8 kg/m2 [facility] 03-22-2023 09:33-0400 Body weight 112.2 kg [facility] 03-22-2023 09:01-0400 Body height 160.02 cm [facility] 03-22-2023 09:01-0400 Body temperature 98 [degF] [facility] 03-22-2023 09:01-0400 Diastolic blood pressure 68 mm[Hg] [facility] 03-22-2023 09:01-0400 Heart rate 95 /min [facility] 03-22-2023 09:01-0400 Respiratory rate 14 /min [facility] 03-22-2023 09:01-0400 SaO2% (BldA) [Mass fraction] 100 % [facility] 03-22-2023 09:01-0400 Systolic blood pressure 133 mm[Hg] [facility] 03-07-2023 09:46-0400 Body weight 112.58 kg [facility] 02-14-2023 11:18-0400 Body height 161.29 cm [facility] 02-14-2023 11:18-0400 Body weight 112.12 kg [facility] 01-26-2023 12:00-0400 Body weight 113.12 kg [facility] 12-30-2022 11:30-0400 Body height 161.29 cm [facility] 12-30-2022 11:30-0400 Body weight 112.76 kg [facility] 12-08-2022 10:07-0400 Body height 161.29 cm [facility] 12-08-2022 10:07-0400 Body weight 113.85 kg [facility] 04-23-2022 11:42-0400 Body temperature 95.7 [degF] Génesis Carlton MD Work Phone: [facility] 04-23-2022 11:42-0400 Body weight 104.78 kg Génesis Carlton MD Work Phone: [facility] 04-23-2022 11:42-0400 Diastolic blood pressure 55 mm[Hg] Génesis Carlton MD Work Phone: [facility] 04-23-2022 11:42-0400 Heart rate 81 /min Génesis Carlton MD Work Phone: [facility] 04-23-2022 11:42-0400 Systolic blood pressure 112 mm[Hg] Génesis Carlton MD Work Phone: [facility] 01-29-2022 11:21-0400 Body height 161.[address] Janet Ramos Work Phone: [facility] Work Phone: 01-29-2022 11:21-0400 Body mass index (BMI) [Ratio] 40.9 kg/m2 Dr. Janet Ramos Work Phone: [facility] Work Phone: 01-29-2022 11:21-0400 Body temperature 98.4 [degF] Dr. Janet Ramos Work Phone: [facility] Work Phone: 01-29-2022 11:21-0400 Body weight 106.[address] Janet Ramos Work Phone: [facility] Work Phone: 01-29-2022 11:21-0400 Diastolic blood pressure 87 mm[Hg] Dr. Janet Ramos Work Phone: [facility] Work Phone: 01-29-2022 11:21-0400 Heart rate 75 /min Dr. Janet Ramos Work Phone: [facility] Work Phone: 01-29-2022 11:21-0400 Inhaled oxygen flow rate 97 L/min Dr. Janet Ramos Work Phone: [facility] Work Phone: 01-29-2022 11:21-0400 Respiratory rate 16 /min Dr. Janet Ramos Work Phone: [facility] Work Phone: 01-29-2022 11:21-0400 Systolic blood pressure 132 mm[Hg] Dr. Janet Ramos Work Phone: [facility] Work Phone: 01-04-2022 13:44-0400 Body temperature 97 [degF] [facility] Work Phone: 01-04-2022 13:44-0400 Diastolic blood pressure 47 mm[Hg] [facility] Work Phone: 01-04-2022 13:44-0400 Heart rate 102 /min [facility] Work Phone: 01-04-2022 13:44-0400 Respiratory rate 16 /min [facility] Work Phone: 01-04-2022 13:44-0400 SaO2% (BldA) [Mass fraction] 99 % [facility] Work Phone: 01-04-2022 13:44-0400 Systolic blood pressure 116 mm[Hg] [facility] Work Phone: 01-04-2022 12:50-0400 Inhaled oxygen flow rate 2 L/min Dr. Janet Ramos Work Phone: [facility] Work Phone: 01-04-2022 11:03-0400 Body height 160.02 cm [facility] Work Phone: 01-04-2022 11:03-0400 Body mass index (BMI) [Ratio] 41.8 kg/m2 [facility] Work Phone: 01-04-2022 11:03-0400 Body weight 107 kg [facility] Work Phone: 02-17-2017 08:41-0400 BMI (Body Mass Index) 36.71 kg/m2 Soraya [facility] Work Phone: 02-17-2017 08:41-0400 Body Temperature 97.6 [degF] [facility] Work Phone: 02-17-2017 08:41-0400 BP Diastolic 80 mm[Hg] [facility]aya [facility] Work Phone: 02-17-2017 08:41-0400 BP Systolic 150 mm[Hg] [facility] Work Phone: 02-17-2017 08:41-0400 Height 158.75 cm [facility] Work Phone: 02-17-2017 08:41-0400 Pulse (Heart Rate) 82 /min [facility] Work Phone: 02-17-2017 08:41-0400 Pulse Oximetry 97 % [facility] Work Phone: 02-17-2017 08:41-0400 Respiratory Rate 18 /min [facility] [place] Phone: 02-17-2017 08:41-0400 Weight 92.53 kg Sor[facility] Work Phone: 08-19-2016 08:03-0500 Body Temperature 99.14 [degF] Soraya [facility] Work Phone: 08-19-2016 08:03-0500 BSA (Body Surface Area) 1.92 m2 Soraya Yo[facility] Work Phone: 08-19-2016 08:03-0500 Height 158.75 cm Soraya [facility] Work Phone: 08-19-2016 08:03-0500 Weight 90 kg Soraya [facility] Work Phone: 05-01-2014 10:04-0400 BP Systolic 124 mm[Hg] [facility] Work Phone: 04-18-2014 13:45-0400 Heart rate 84 /min [facility] Work Phone: Encounters Encounter Date Encounter Type Care Provider Facility Start: 07-05-2025 End: 07-05-2025 ambulatory Darya Abreu Facility:[facility] Start: 06-24-2025 End: 06-24-2025 ambulatory Janet Ramos Facility:[facility] Start: 06-12-[address] John Jang MD -[facility] Start: 06-12-2025 End: 06-12-[address] John Jang MD -[facility] Work Phone: Start: 06-12-2025 End: 06-12-[address] Janet Ramos DO Work Phone: -[facility] Start: 05-22-2025 ambulatory Janet Ramos Facility: [facility] Start: 05-22-2025 Non-patient / Non-visit Dr. Reece Abreu MD -[facility] Work Phone: Start: 05-22-2025 End: 05-28-[address] Janet Ramos DO -Nutritional Services Work Phone: Start: 05-22-2025 End: 05-28-[address] Janet Ramos DO Work Phone: -[facility]al Services Start: 05-05-2025 End: 05-05-2025 Emergency department patient visit Dr. Janet Ramos DO Work Phone: -Emergency Department Work Phone: Start: 04-12-2025 End: 04-12-[address] Draya Abreu MD -[facility] Work Phone: Start: 04-12-2025 End: 04-12-[address] Janet Ramos DO Work Phone: -[facility] Start: 03-27-2025 End: 03-28-[address] Janet Ramos DO -Nutritional Services Work Phone: Start: 03-27-2025 End: 03-27-2025 Patient encounter procedure Clau CARMONA -[facility] Work Phone: Start: 03-27-2025 End: 03-28-[address] Janet Ramos DO Work Phone: -[facility] Start: 03-20-[address] John Jang MD -[facility] Start: 03-20-2025 End: 03-20-[address] John Jang MD -[facility] Work Phone: Start: 03-20-2025 End: 03-20-[address] Janet Ramos DO Work Phone: -[facility] Start: 03-07-2025 ambulatory Janet Ramos Facility: [facility] Start: 03-07-2025 Non-patient / Non-visit Tato Bowman nd, DO -[facility] Start: 03-07-2025 End: 03-07-2025 Admission to same day surgery center Tato Posey DO -Endoscopy Work Phone: Start: 03-07-2025 End: 03-07-[address] Janet Ramos DO Work Phone: -Endoscopy Start: 02-26-2025 Non-patient / Non-visit Dr. Reece Abreu MD -[facility] Work Phone: Start: 02-22-[address] John Jang MD -[facility] Start: 01-25-[address] John Jang MD -[facility] Start: 01-23-2025 End: 01-26-[address] Janet Ramos DO Nutritional Services Work Phone: Start: 01-23-2025 End: 01-26-[address] Janet Ramos DO Work Phone: [facility] Work Phone: Start: 01-23-[address] Janet Ramos DO Nutritional Services Work Phone: Start: 01-23-2025 End: 01-23-[address] John Jang MD -[facility] Work Phone: Start: 01-23-2025 End: 01-23-[address] Janet Ramos DO Work Phone: [facility] Work Phone: Start: 01-14-2025 Non-patient / Non-visit Jaqui Contreras [facility] Work Phone: Start: 01-14-2025 ambulatory Janet Ramos Facility: [facility] Start: 01-03-2025 End: 01-03-[address] Janet Ramos DO Work Phone: [facility] Work Phone: Start: 01-03-2025 End: 01-03-2025 Patient encounter procedure Clau CARMONA -Laboratory Work Phone: Start: 01-03-2025 End: 01-03-2025 Patient encounter procedure Clau CARMONA -[facility] Work Phone: Start: 01-03-2025 End: 01-03-2025 ambulatory [facility] Facility:[facility] Start: 01-03-2025 End: 01-03-2025 ambulatory [facility] Facility:[facility] Start: 12-27-2024 End: 12-28-2024 Follow-up encounter Isabel Ceron PA-C Work Phone: Rheumatology Start: 12-26-2024 End: 12-26-2024 ambulatory ISABEL CERON Facility:[facility] Start: 12-26-2024 End: 12-26-2024 Patient encounter procedure Isabel Ceron PA-C Work Phone: Rheumatology Comment on above: Sjogren's syndrome, with unspecified organ involvement (HCC) (Primary Dx); Dry mouth; Primary osteoarthritis of left knee; History of vitamin D deficiency; Radiculopathy, lumbar region Start: 12-26-2024 End: 12-26-2024 ambulatory ISABEL CERON Facility:[facility] Start: 12-19-2024 End: 12-19-[address] John Agee DO -[facility] Work Phone: Start: 12-19-2024 End: 12-19-2024 ambulatory [facility] Facility:[facility] Start: 11-21-2024 ambulatory [facility] Facility: [facility] Start: 11-21-2024 Non-patient / Non-visit Tato Bowman nd, DO -[facility] Start: 11-21-2024 End: 11-21-2024 Admission to same day surgery center Tato Posey DO -Endoscopy Work Phone: Start: 11-21-2024 End: 11-21-[address] Janet Ramos DO Work Phone: [facility] Work Phone: Start: 11-01-2024 End: 11-01-[address] Ravindra Singh MD -[facility] Work Phone: Start: 11-01-2024 End: 11-01-2024 ambulatory [facility] Facility:[facility] Start: 10-25-2024 End: 10-25-[address] Ravindra Singh MD -[facility] Work Phone: Start: 10-25-2024 End: 10-25-[address] Janet Ramos DO Work Phone: [facility] Work Phone: Start: 10-25-2024 End: 10-25-2024 ambulatory Ravindra Singh Facility:[facility] Start: 10-18-2024 End: 10-26-[address] Janet Ramos DO -Nutritional Services Work Phone: Start: 10-18-2024 End: 10-26-2024 ambulatory Janet Erik Facility:[facility] Start: 10-10-2024 ambulatory [facility] Facility: [facility] Start: 10-10-2024 End: 11-02-2024 Telephone encounter Génesis Carlton MD Work Phone: Rheumatology Comment on above: Orders Start: 10-09-2024 End: 10-09-2024 Patient encounter procedure Tory Hewitt -Radiology, [facility] Work Phone: Start: 10-09-2024 End: 10-09-2024 ambulatory [facility] Facility:[facility] Start: 09-29-2024 End: 09-29-2024 Emergency department patient visit Dr. Anthony Torres DO -Emergency Department Work Phone: Start: 09-28-2024 End: 09-28-2024 Emergency department patient visit Dr. Carolyne Leigh DO -Emergency Department Work Phone: Start: 09-20-2024 End: 09-20-2024 Patient encounter procedure Clau CARMONA -Laboratory Work Phone: Start: 09-20-2024 End: 09-20-2024 Patient encounter procedure Clau CARMONA -[facility] Work Phone: Start: 09-20-2024 End: 09-20-2024 ambulatory Janet Ramos Facility:[facility] Start: 09-19-2024 End: 09-19-[address] John Agee DO -[facility] Work Phone: Start: 09-19-2024 End: 09-20-2024 ambulatory Janet RebolledoErik Facility:[facility] Start: 09-13-2024 End: 09-28-[address] Janet Ramos DO -Nutritional Services Work Phone: Start: 09-13-2024 End: 09-28-2024 ambulatory [facility] Facility:[facility] Start: 08-30-2024 Non-patient / Non-visit Tato Bowman nd DO -[facility] Start: 08-30-2024 End: 08-30-2024 Admission to same day surgery center Tato Posey DO -Endoscopy Work Phone: Start: 08-30-2024 End: 08-30-2024 ambulatory Tato Posey Facility:[facility] Start: 08-21-2024 End: 08-21-2024 Patient encounter procedure Tory Hewitt -[facility] Work Phone: Start: 08-21-2024 End: 08-21-2024 ambulatory Tory Gofield Facility:[facility] Start: 08-16-2024 End: 08-16-2024 Patient encounter procedure Clau CARMONA -Laboratory Work Phone: Start: 08-16-2024 End: 08-16-2024 Patient encounter procedure Clau CARMONA -[facility] Work Phone: Start: 08-16-2024 End: 08-16-2024 ambulatory Clau Mcclain Facility:[facility] Start: 08-16-2024 End: 08-16-2024 ambulatory Clau Mcclain Facility:[facility] Start: 08-06-2024 End: 08-28-[address] Janet Ramos DO -Nutritional Services Work Phone: Start: 08-06-2024 End: 08-28-2024 ambulatory Janet Ramos Facility:[facility] Start: 07-25-2024 End: 07-25-[address] Janet Ramos DO -Outpatient Breast Imaging Work Phone: Start: 07-25-2024 End: 07-25-2024 ambulatory Janet Ramos Facility:[facility] Start: 12-21-[address] Janet Ramos Work Phone: [facility]-Physical Therapy Work Phone: Start: 12-15-2023 End: 12-27-[address] Janet Ramos Work Phone: [facility] Work Phone: Start: 12-15-2023 End: 12-27-[address] Janet Ramos Work Phone: [facility]-Nutritional Services Work Phone: Start: 12-12-2023 End: 12-12-[address] Janet Ramos Work Phone: [facility] Work Phone: Start: 11-29-2023 Non-patient / Non-visit Dr. Yasmin Olmos Work Phone: [facility] Work Phone: Start: 11-29-2023 End: 11-29-2023 Admission to same day surgery center Dr. Cristobal Olmos Work Phone: [facility] [place] Work[facility]/Special Procedures Work Phone: Start: 11-29-2023 End: 11-29-[address] Cristobal Olmos Work Phone: [facility] Work Phone: Start: 11-28-2023 Non-patient / Non-visit Dr. Kalina Ramos Work Phone: [facility] Start: 11-25-2023 End: 11-25-[address] Cristobal Olmos Work Phone: [facility] Work Phone: Start: 11-25-2023 End: 11-25-[address] Cristobal Olmos Work Phone: [facility] Work Phone: Start: 11-24-2023 End: 11-27-[address] Cristobal Olmos Work Phone: [facility] Work Phone: Start: 11-24-2023 End: 11-27-[address] Cristobal [facility] Start: 11-16-2023 End: 11-16-[address] Cristobal Olmos Work Phone: [facility] Work Phone: Start: 11-11-2023 Non-patient / Non-visit Dr. Yasmin Olmos Work Phone: [facility] Work Phone: Start: 11-10-2023 End: 11-10-[address] Cristobal Olmos Work Phone: [facility] Work Phone: Start: 11-10-2023 End: 11-10-[address] Cristobal Olmos Work Phone: [facility]-Cardiovascular Services Work Phone: Start: 11-08-2023 End: 11-08-[address] Cristobal Olmos Work Phone: [facility] Work Phone: Start: 11-08-2023 End: 11-08-[address] Cristobal Olmos Work Phone: [facility] Work Phone: Start: 11-07-[address] Cristobal Olmos Work Phone: [facility]-Physical Therapy Work Phone: Start: 10-31-[address] Cristobal Olmos [facility] Phone[facility] Start: 10-24-2023 End: 10-24-2023 Patient encounter procedure DIRECTOR OF PHYSICAL SECURITY-C Keisha Williamson Work Phone: [facility]-Pulmonary Medicine [facility] Work Phone: Start: 10-19-2023 End: 10-19-2023 Patient encounter procedure DIRECTOR OF PHYSICAL SECURITY-C Keisha Williamson Work Phone: [facility] Work Phone: Start: 10-14-2023 Registered Recurring DIRECTOR OF PHYSICAL SECURITY-C Rayna Williamson Work Phone: [facility]-Physical Therapy Work Phone: Start: 10-05-2023 End: 10-27-2023 ambulatory DIRECTOR OF PHYSICAL SECURITY-C Keisha Williamson Work Phone: [facility] Work Phone: Start: 10-05-2023 End: 10-27-2023 Discharged Recurring DIRECTOR OF PHYSICAL SECURITY-C Keisha Williamson Work Phone: [facility] Work [facility]: Start: 09-28-2023 End: 09-28-2023 Patient encounter procedure DIRECTOR OF PHYSICAL SECURITY-C Keisha Williamson Work Phone: [facility] Work Phone: Start: 09-26-2023 Registered Recurring DIRECTOR OF PHYSICAL SECURITY-C Rayna Williamson Work Phone: [facility]-Physical Therapy Work Phone: Start: 09-14-2023 End: 09-28-2023 ambulatory DIRECTOR OF PHYSICAL SECURITY-C Keisha Williamson Work Phone: [facility] Work Phone: Start: 09-14-2023 End: 09-28-2023 Discharged Recurring DIRECTOR OF PHYSICAL SECURITY-C Keisha Williamson Work Phone: [facility] Work Phone: Start: 08-18-2023 Non-patient / Non-visit Dr. Kalina Ramos Work Phone: [facility] Start: 08-18-2023 End: 08-18-[address] Janet Ramos Work Phone: [facility] Work Phone: Start: 08-18-2023 End: 08-18-[address] Janet Ramos Work Phone[facility] Work [facility]: Start: 08-17-2023 End: 08-28-[address] Janet Ramos Work Phone: [facility] Work Phone: Start: 08-17-2023 End: 08-28-[address] Janet Ramos Work Phone[facility] Work [facility]: Start: 08-17-[address] Janet Ramos Work Phone[facility] Work [facility]: Start: 08-05-2023 Non-patient / Non-visit Dr. Kalina Ramos Work Phone: [facility] Start: 08-04-2023 End: 08-04-[address] Janet Ramos Work Phone: [facility] Work Phone: Start: 08-04-2023 End: 08-04-[address] Janet Ramos Work Phone: [facility]-Pulmonary Services/Neurology Work Phone: Start: 07-28-2023 Non-patient / Non-visit Dr. Kalina Ramos Work Phone: [facility] Start: 07-27-2023 End: 07-27-[address] Janet Ramos Work Phone: [facility] Work Phone: Start: 07-27-2023 End: 07-27-[address] Janet Ramos Work Phone: [facility]-Pulmonary Services/Neurology Work Phone: Start: 07-25-2023 End: 07-28-[address] Janet Ramos Work Phone: [facility] Work Phone: Start: 07-25-2023 End: 07-28-[address] Janet Ramos Work Phone: [facility]-Nutritional Services Work Phone: Start: 07-18-2023 End: 07-18-[address] Janet Ramos Work Phone: [facility] Work Phone: Start: 07-18-2023 End: 07-18-[address] [facility] Start: 07-14-2023 End: 07-14-[address] Janet Ramos Work Phone: [facility] Work Phone: Start: 07-14-2023 End: 07-14-[address] Janet Ramos Work Phone: [facility]-Breast Imaging - Biopsy/[place] Work Phone: Start: 07-12-2023 End: 07-12-[address] Janet Ramos Work Phone: [facility]-Pulmonary Medicine [facility] Work Phone: Start: 07-12-[address] Janet Ramos Work Phone: [facility]-Physical Therapy Work Phone: Start: 07-04-[address] Janet Ramos Work Phone: [facility]-Nutritional Services Work Phone: Start: 06-21-2023 End: 06-21-[address] Janet Ramos Work Phone: [facility] Work Phone: Start: 06-21-2023 End: 06-21-[address] Janet Ramos Work Phone: [facility]-Radiology, [facility] Work Phone: Start: 06-20-2023 End: 06-20-[address] Janet Ramos Work Phone: [facility] Work Phone: Start: 06-20-2023 End: 06-20-[address] Janet Ramos Work Phone: [facility] Start: 06-06-2023 End: 06-28-[address] Janet Ramos Work Phone: [facility] Work Phone: Start: 06-06-2023 End: 06-28-[address] Janet Ramos [facility] Phone[facility] Work [facility]: Start: 06-06-[address] Janet Ramos Work Phone[facility] Work [facility]: Start: 05-27-2023 End: 05-27-[address] Janet Ramos Work Phone: [facility] Work Phone: Start: 05-11-2023 End: 05-28-[address] Janet Ramos Work Phone: [facility] Work Phone: Start: 05-11-2023 End: 05-28-[address] Janet Ramos Work Phone[facility] Work [facility]: Start: 04-28-2023 End: 04-28-2023 ambulatory [facility] Work Phone: Start: 04-28-2023 End: 04-28-2023 Patient encounter procedure [facility]-Outpatient Bone Densitometry Work Phone: Start: 04-20-2023 End: 04-28-2023 ambulatory [facility] Work Phone: Start: 04-20-2023 End: 04-28-2023 Discharged Recurring [facility] Start: 04-08-2023 Telephone encounter Génesis Carlton MD Work Phone: Rheumatology Comment on above: Orders Start: 03-24-2023 Telephone encounter Génesis Carlton MD Work Phone: Rheumatology Comment on above: Future Appointment ( labs) Start: 03-22-2023 End: 03-22-2023 Emergency department patient visit [facility]-Emergency Department Work Phone: Start: 03-07-2023 End: 03-28-2023 ambulatory [facility] Work Phone: Start: 03-07-2023 End: 03-28-2023 Discharged Recurring [facility] Start: 02-14-2023 End: 02-25-2023 ambulatory [facility] Work Phone: Start: 02-14-2023 End: 02-25-2023 Discharged Recurring [facility]-Nutritional Services Work Phone: Start: 01-26-2023 End: 01-26-2023 ambulatory [facility] Work Phone: Start: 01-26-2023 End: 01-26-2023 Discharged Recurring [facility]-Nutritional Services Start: 01-17-2023 End: 01-17-2023 Discharged Recurring [facility]-Physical Therapy Start: 12-23-2022 Registered Recurring [facility]-Physical Therapy Start: 12-09-2022 Registered Recurring [facility]-Physical Therapy Start: 12-08-2022 End: 12-26-2022 ambulatory [facility] Work Phone: Start: 12-08-2022 End: 12-26-2022 Discharged Recurring [facility]-Nutritional Services Start: 12-08-2022 Registered Recurring [facility]-Nut[facility]al Services Start: 12-02-2022 End: 12-02-2022 ambulatory [facility] Work Phone: Start: 12-02-2022 End: 12-02-2022 Patient encounter procedure [facility]-Laboratory Start: 08-16-2022 End: 08-16-2022 ambulatory [facility] Work Phone: Start: 08-16-2022 End: 08-16-2022 Patient encounter procedure [facility]-Radiology, [facility] Start: 07-12-2022 End: 07-12-2022 ambulatory [facility] Work Phone: Start: 07-12-2022 End: 07-12-2022 Patient encounter procedure [facility]-Outpatient Breast Imaging Start: 06-21-2022 End: 06-21-2022 ambulatory [facility] Work Phone: Start: 06-21-2022 End: 06-21-2022 Patient encounter procedure [facility]-Radiology, [facility] Start: 05-26-2022 End: 05-26-2022 Discharged Recurring [facility]-Physical Therapy Start: 05-19-2022 End: 05-19-2022 Patient encounter procedure [facility]-Laboratory, Specimen Start: 04-23-2022 End: 04-23-2022 Patient encounter procedure Génesis Carlton MD Work Phone: Rheumatology Comment on above: Sjogren's syndrome, with unspecified organ involvement (HCC) (Primary Dx); Dry mouth; Primary osteoarthritis of left knee Start: 04-02-2022 Telephone encounter Génesis Carlton MD Work Phone: Rheumatology Comment on above: Patient Question Start: 03-18-2022 End: 03-18-[address] Janet Ramos Work Phone: [facility]-Radiology, [facility] Start: 01-29-2022 End: 01-29-[address] Janet Ramos Work Phone: [facility]-Pulmonary Medicine [facility] Start: 01-04-2022 End: 01-04-2022 Admission to same day surgery center [facility]-Surgical Day Care Start: 12-21-2021 End: 12-21-2021 Patient encounter procedure [facility]-Cat Scan, [facility] Start: 12-14-2021 Telephone encounter Génesis Carlton MD Work Phone: Rheumatology Comment on above: Patient Update Procedures Date Procedure Procedure Detail Performing Clinician Start: 06-12-[address] Janet Ramos DO Work Phone: Start: 06-12-2025 Serum inorganic phos phate measurement Dr. Janet Ramos DO Work Phone: Comment on above: Previous reported re sult: 4.0 mg/dLEdited by: AUTOINS on 06/12/25:1402 AMENDED REPORT 06/12/25 1402 PHOS previously reported as: 4.0 mg/dL Previous reported result: 3.9 mg/dLEdited by: AUTOINS on 06/12/25:1405 AMENDED REPORT 06/12/25 1405 PHOS previously reported as: 3.9 mg/dL Start: 06-12-2025 Total iron binding c apacity measurement Dr. Janet Ramos DO Work Phone: Start: 05-05-2025 X-ray of chest posteroanterior view Dr. Janet Ramos DO Work Phone: Start: 05-05-[address] Janet Ramos DO Work Phone: Start: 03-20-2025 Endom[address] antibody IgA level Dr. Janet Ramos DO Work Phone: Start: 03-20-[address] Janet Ramos DO Work Phone: Start: 03-20-2025 Gliadin antibody, Ig A measurement Dr. Janet Ramos DO Work Phone: Comment on above: Negative 0 - 19 Weak Positive 20 - 30 Moderate to Strong Positive >30 Start: 03-20-2025 Gliadin antibody, Ig G measurement Dr. Janet Ramos DO Work Phone: Comment on above: Negative 0 - 19 Weak Positive 20 - 30 Moderate to Strong Positive >30 Start: 03-20-[address] fraction Dr. Janet Ramos DO Work Phone: Start: 03-20-[address] Janet Ramos DO Work Phone: Comment on above: Performed at: [address] [id number] Director: Meliton Browning PhD, Phone: [phone] Start: 03-20-2025 Measurement of immunoglobulin A in serum specimen Dr. Janet Ramos DO Work Phone: Start: 03-20-2025 Serum inorganic phos phate measurement Dr. Janet Ramos DO Work Phone: Start: 03-20-2025 Total iron binding c apacity measurement Dr. Janet Ramos DO Work Phone: Start: 03-07-[address] Janet steele DO Work Phone: Start: 01-25-2025 Endomysial antibody IgA level Dr. Jante Ramos DO Work Phone: Start: 01-25-2025 Gliadin antibody, Ig A measurement Dr. Janet Ramos DO Work Phone: Comment on above: Negative 0 - 19 Weak Positive 20 - 30 Moderate to Strong Positive >30 Start: 01-25-2025 Gliadin antibody, Ig G measurement Dr. Janet Ramos DO Work Phone: Comment on above: Negative 0 - 19 Weak Positive 20 - 30 Moderate to Strong Positive >30 Start: 01-25-2025 Measurement of immunoglobulin A in serum specimen Dr. Janet Ramos DO Work Phone: Comment on above: Performed at: [facility] [address] Director: Meliton Browning PhD, Phone: [phone] Start: 01-25-2025 Measurement of occul t blood in stool specimen using immunoassay Dr. Janet Ramos DO Work Phone: Start: 01-23-2025 Endomys[address] antibody IgA level Dr. Janet Ramos DO Work Phone: Start: 01-23-2025 Gliadin antibody, Ig A measurement Dr. Janet Ramos DO Work Phone: Comment on above: Negative 0 - 19 Weak Positive 20 - 30 Moderate to Strong Positive >30 Start: 01-23-2025 Gliadin antibody, Ig G measurement Dr. Janet Ramos DO Work Phone: Comment on above: Negative 0 - 19 Weak Positive 20 - 30 Moderate to Strong Positive >30 Start: 01-23-[address] e fraction Dr. Janet Ramos DO Work Phone: Start: 01-23-[address] Janet Ramos DO Work Phone: Comment on above: Performed at: [address] [id number] Director: Meliton Browning PhD, Phone: [phone] Start: 01-23-2025 Measurement of immunoglobulin A in serum specimen Dr. Janet Ramos DO Work Phone: Start: 01-23-2025 Serum inorganic phos phate measurement Dr. Janet Ramos DO Work Phone: Start: 01-23-2025 Total iron binding c apacity measurement Dr. Janet Ramos DO Work Phone: Start: 12-19-2024 XR knee, [address] Kalina Ramos DO Work Phone: Start: 11-21-[address] Janet steele DO Work Phone: Start: 11-21-2024 Total iron binding c apacity measurement Dr. Janet Ramos DO Work Phone: Start: 10-09-2024 X-ray of cervical spine Dr. Janet Ramos DO Work Phone: Start: 09-29-2024 Plain chest X-ray Dr. Merritt Rmaos DO Work Phone: Start: 09-29-2024 CT angiography of he ad and neck Dr. Janet Ramos DO Work Phone: Start: 09-29-[address] Janet Ramos DO Work Phone: Start: 09-29-2024 Measurement of renal function Dr. Janet Ramos DO Work Phone: Comment on above: GFR Calc Start: 09-28-2024 SARS-CoV-2, Influenz a & RSV (PCR) Dr. Janet Ramos DO Work Phone: Start: 09-20-2024 Total iron binding c apacity measurement Dr. Janet Ramos DO Work Phone: Start: 09-19-2024 X-ray of knee, four or more views Dr. Janet Ramos DO Work Phone: Start: 08-21-2024 X-ray of lumbar spin e, two or three views Dr. Janet Ramos DO Work Phone: Start: 07-25-2024 Screening mammography Pepe Ramos DO Work Phone: Start: 12-12-2023 Radiologic examinati on of knee Dr. Janet Ramos Work Phone: Start: 11-10-2023 Cardiovascular stres s test using pharmacologic stress agent Dr. Cristobal Olmos Work Phone: Start: 11-08-2023 MRI of joint of lowe r extremity Dr. Cristobal Olmos Work Phone: Start: 07-14-2023 Screening mammography Pepe Ramos Work Phone: Start: 06-21-2023 Plain chest X-ray Dr. Merritt Ramos Work Phone: Start: 05-27-2023 Radiologic examinati on of knee Dr. Janet Ramos Work Phone: Start: 04-28-2023 Dual energy X-ray absorptiometry Start: 03-22-2023 Radiography of ankle Start: 03-22-2023 Radiologic examinati on of knee Start: 08-16-2022 Diagnostic radiograp hy of abdomen Start: 07-12-2022 Screening mammography Start: 06-21-2022 Diagnostic radiograp hy of abdomen Start: 03-18-2022 Radiologic examinati on of knee Dr. Janet Ramos Work Phone: Start: 01-04-2022 End: 01-04-2022 Viral [...] Follow Up Appt 3 months Angélica lima [employer] Work Phone: Start: 12-18-2015 End: 12-18-2015 *Hepatic Function Panel Jani Mckeon MD Start: 12-10-2015 End: 12-18-2015 Gamma glutamyl transferase Janet barney DO Work Phone: Start: 11-14-2015 End: 11-21-2015 *FLAKITA Janet Ramos DO Work Phone: Start: 11-14-2015 End: 11-14-2015 *CBC with Differential Janet Majano Work Phone: Start: 11-14-2015 End: 11-16-2015 *CMP Complete Metabolic Panel Janet Ramos Work Phone: Start: 11-14-2015 End: 11-17-2015 Alpha 1 antitrypsin [Mass/volume] in Serum or Plasma Janet Ramos DO Work Phone: Start: 11-14-2015 End: 11-14-2015 C reactive protein (hsCRP) Janet Ledezma savita DO Work Phone: Start: 11-14-2015 End: 11-17-2015 Ceruloplasmin [Mass/volume] in Serum or Plasma Janet Ramos [employer] Work Phone: Start: 11-14-2015 End: 11-14-2015 Coagulation factor induced.INR assay in platelet poor plasma Janet Ramos [employer] Work Phone: Start: 11-14-2015 End: 11-14-2015 Erythrocyte sedimentation rate Janet Ramos [employer] Work Phone: Start: 11-14-2015 End: 11-16-2015 Ferritin Janet Ramos [employer] Work Phone: Start: 11-14-2015 End: 11-17-2015 Hepatitis A virus Ab [Presence] in Serum Janet Ramos [employer] Work Phone: Start: 11-14-2015 End: 11-17-2015 Hepatitis B virus core Ab [Presence] in Serum Janet Ramos [employer] Work Phone: Start: 11-14-2015 End: 11-18-2015 Mitochondria Ab [Presence] in Serum Janet [employer] Work Phone: Start: 11-14-2015 End: 11-18-2015 Smooth muscle Ab [Presence] in Serum Janet Ramos [employer] Work Phone: Start: 11-14-2015 End: 11-17-2015 Transferrin Janet Ramos [employer] Work Phone: Start: 10-16-2015 End: 10-16-2015 *Hepatic [...] 02-11-2015 End: 02-12-2015 *CBC with Differential Janet Reynolds Erik D O Work Phone: Start: 02-11-2015 End: 02-12-2015 [...] 06-11-2014 End: 06-12-2014 *CBC with Differential Janet Majano Work Phone: Start: 06-11-2014 End: 06-12-2014 *CMP Complete Metabolic Panel Janet Ramos DO Work Phone: Start: 05-30-2014 End: 05-30-2014 Follow Up Appt Other Chiquis Palacios PA-C Work Phone: Start: 05-20-2014 End: 05-20-2014 Urinalysis Soraya Milton Start: 05-20-2014 End: 05-21-2014 Follow-up visit Janet Ramos DO Work Phone: Start: 05-20-2014 End: 05-23-2014 Urine culture, bacteria Janet Ramos DO Work Phone: Start: 04-18-2014 End: 04-24-2014 [...] Urine culture Viral antigen assay Dr. Janet Ramos Work Phone: Plan of Treatment Date Care Activity Detail Author Start: 2031 RSV Vaccine (1 - 1-dose 75+ series) RSV Vaccine (1 - 1-dose 75+ series) [facility] Start: 03-07-2029 Urine microalbumin profile [facility] Start: 12-27-2027 Diabetes Screening Diabetes Screening [facility] Start: 04-22-2026 Diabetes Screening Diabetes Screening [facility] Start: 12-26-2025 End: 12-26-2025 Patient encounter procedure 12/26/2025 10:30 AM EDT Office Visit Rheumatology [address] [place], [place] [id number] Isabel Ceron PA-C [address] [place], [place] [id number] 1 year follow up Rheumatology Comment on above: 1 year follow up Start: 07-17-2025 ambulatory Facility:[facility] Start: 06-24-2025 Radiologic exam knee complete 4/more views Knee 4 or More Views [facility] Start: 06-24-2025 End: 06-24-2025 Patient encounter procedure -[facility] Work Phone: Start: 06-12-2025 Serum inorganic phosphate measurement [facility] Start: 06-12-2025 Vitamin B12 measurement [facility] Start: 05-05-2025 [facility] Start: 05-05-2025 [facility] Start: 04-08-2025 DIABETES SCREEN DIABETES SCREEN [facility] Start: 03-20-2025 Erythropoietin (EPO) [Units/volume] in Serum or Plasma [facility] Start: 03-20-2025 Haptoglobin [Mass/volume] in Serum or Plasma [facility] Start: 03-20-2025 Laboratory test [facility] Start: 03-20-2025 [facility] Start: 03-07-2025 Colonoscopy DIAGNOSTIC COLONOSCOPY [facility] Start: 03-07-2025 Colonoscopy flx dx w/collj spec when pfrmd DIAGNOSTIC COLONOSCOPY [facility] Start: 03-07-2025 Patient discharge [facility] Start: 01-25-2025 Erythropoietin (EPO) [Units/volume] in Serum or Plasma [facility] Start: 01-25-2025 Laboratory test [facility] Start: 01-23-2025 Patient referral [facility] Work Phone: Start: 01-23-2025 CBC W Auto Differential panel - Blood [facility] Start: 01-23-2025 Erythrocyte sedimentation rate [facility] Start: 01-23-2025 Reticulocyte count [facility] Start: 01-23-2025 C reactive protein [Mass/volume] in Serum or Plasma [facility] Start: 01-23-2025 Cobalamin (Vitamin B12) [Mass/volume] in Serum or Plasma [facility] Start: 01-23-2025 Comprehensive metabolic 2000 panel - Serum or Plasma [facility] Start: 01-23-2025 Ferritin [Mass/volume] in Serum or Plasma [facility] Start: 01-23-2025 Haptoglobin [Mass/volume] in Serum or Plasma [facility] Start: 01-23-2025 Iron and Iron binding capacity panel - Serum or Plasma [facility] Start: 01-23-2025 Laboratory test [facility] Start: 01-23-2025 Lactate dehydrogenase measurement [facility] Start: 01-23-2025 Magnesium measurement [facility] Start: 01-23-2025 Serum inorganic phosphate measurement [facility] Start: 01-23-2025 Urate [Mass/volume] in Serum or Plasma [facility] Start: 01-23-2025 [facility] Start: 12-26-2024 End: 03-27-2025 25-hydroxyvitamin D3 [Mass/volume] in Serum or Plasma [facility] Comment on above: Expected: 12/26/2024, Expires: Start: 12-26-2024 End: 03-27-2025 C reactive protein [Mass/volume] in Serum or Plasma [facility] Work Phone: Comment on above: Expected: 12/26/2024, Expires: Start: 12-26-2024 End: 03-27-2025 Rheumatoid factor [Units/volume] in Serum or Plasma [facility] Comment on above: Expected: 12/26/2024, Expires: Start: 12-26-2024 End: 12-26-2024 Patient encounter procedure 12/26/2024 11:00 AM EDT Office Visit Rheumatology [address] [place] [address] Isabel Ceron PA-C [address] [place] [address] Sjogren's syndrome[M35.00], Dry mouth [R68.2], osteoarthritis of left knee [M17.12] Rheumatology Comment on above: Sjogren's syndrome[M35.00], Dry mouth [R 68.2], osteoarthritis of left knee [M17.12] Start: 11-21-2024 Colonoscopy flx dx w/collj spec when pfrmd DIAGNOSTIC COLONOSCOPY [facility] Start: 11-21-2024 Egd transoral biopsy single/multiple EGD BIOPSY SINGLE/MULTIPLE [facility] Start: 11-21-2024 Patient discharge [facility] Start: 11-18-2024 Lipid panel Lipid Screening [facility] Start: 11-18-2024 LIPID SCREEN LIPID SCREEN [facility] Start: 11-07-2024 Covid-19 Vaccine ( season) Covid-19 Vaccine ( season) [facility] Start: 09-29-2024 [facility] Start: 09-28-2024 End: 09-28-2024 [facility] Start: 09-19-2024 Patient referral [facility] Work Phone: Start: 08-30-2024 Colsc flx w/rmvl of tumor polyp lesion snare tq COLONOSCOPY W/LESION REMOVAL [facility] Start: 08-30-2024 Patient discharge [facility] Start: 08-29-2024 Advance Directive Discussion Advance Directive Discussion [facility] Start: 06-14-2024 Shingrix Vaccine (2 of 2) Shingrix Vaccine (2 of 2) [facility] Start: 04-29-2024 Covid-19 Vaccine ( season) Covid-19 Vaccine ( season) [facility] Start: 04-29-2024 Influenza vaccination Influenza Vaccine (#1) [facility] Start: 11-29-2023 Patient discharge [facility] Start: 11-22-2023 DIABETES SCREEN DIABETES SCREEN [facility] Start: 08-18-2023 Echo tthrc r-t 2d w/wom-mode compl spec&colr d TTE W/DOPPLER COMPLETE [facility] Start: 07-18-2023 Blood chemistry [facility] Start: 04-29-2023 Influenza vaccination INFLUENZA (#1) [facility] Start: 04-28-2023 Dual energy X-ray absorptiometry Dexa Bone Density Study [facility] Start: 04-28-2023 DXA Bone [Mass/Area] Bone density [facility] Start: 04-23-2023 BP CONTROLLED (<130/80) BP CONTROLLED (<130/80) [facility] Start: 04-08-2023 End: 06-08-2023 25-hydroxyvitamin D3 [Mass/volume] in Serum or Plasma VITAMIN D 25 HYDROXY Lab Routine Sjogren's syndrome, with unspecified organ involvement (HCC) Dry mouth Primary osteoarthritis of left knee Expected: 04/08/2023 (Approximate), Expires: 06/08/2023 [facility] Work Phone: Comment on above: Expected: 04/08/2023 (Approximate), Expi res: 06/08/2023 Start: 04-08-2023 End: 06-08-2023 C reactive protein [Mass/volume] in Serum or Plasma C-REACTIVE PROTEIN (CRP) Lab Routine Sjogren's syndrome, with unspecified organ involvement (HCC) Dry mouth Primary osteoarthritis of left knee Expected: 04/08/2023 (Approximate), Expires: 06/08/2023 [facility] Work Phone: Comment on above: Expected: 04/08/2023 (Approximate), Expi res: 06/08/2023 Start: 04-08-2023 End: 06-08-2023 CBC W Auto Differential panel - Blood CBC + DIFF Lab Routine Sjogren's syndrome, with unspecified organ involvement (HCC) Dry mouth Primary osteoarthritis of left knee Expected: 04/08/2023 (Approximate), Expires: 06/08/2023 [facility] Work Phone: Comment on above: Expected: 04/08/2023 (Approximate), Expi res: 06/08/2023 Start: 04-08-2023 End: 06-08-2023 Comprehensive metabolic 2000 panel - Serum or Plasma COMP METABOLIC PANEL Lab Routine Sjogren's syndrome, with unspecified organ involvement (HCC) Dry mouth Primary osteoarthritis of left knee Expected: 04/08/2023 (Approximate), Expires: 06/08/2023 [facility] Work Phone: Comment on above: Expected: 04/08/2023 (Approximate), Expi res: 06/08/2023 Start: 04-08-2023 End: 06-08-2023 Erythrocyte sedimentation rate SED RATE WESTERGREN Lab Routine Sjogren's syndrome, with unspecified organ involvement (HCC) Dry mouth Primary osteoarthritis of left knee Expected: 04/08/2023 (Approximate), Expires: 06/08/2023 [facility] Work Phone: Comment on above: Expected: 04/08/2023 (Approximate), Expi res: 06/08/2023 Start: 04-08-2023 End: 06-08-2023 Rheumatoid factor [Units/volume] in Serum or Plasma RHEUMATOID FACTOR BL Lab Routine Sjogren's syndrome, with unspecified organ involvement (HCC) Dry mouth Primary osteoarthritis of left knee Expected: 04/08/2023 (Approximate), Expires: 06/08/2023 [facility] Work Phone: Comment on above: Expected: 04/08/2023 (Approximate), Expi res: 06/08/2023 Start: 08-29-2022 ADVANCE DIRECTIVE DISCUSSION ADVANCE DIRECTIVE DISCUSSION [facility] Start: 08-29-2022 DEPRESSION ASSESSMENT DEPRESSION ASSESSMENT [facility] Start: 04-29-2022 Influenza vaccination [facility] Start: 04-05-2022 End: 06-05-2022 25-hydroxyvitamin D3 [Mass/volume] in Serum or Plasma VITAMIN D 25 HYDROXY Lab Routine Sjogren's syndrome, with unspecified organ involvement (HCC) Expected: 04/05/2022 (Approximate), Expires: 06/05/2022 [facility] Work Phone: Comment on above: Expected: 04/05/2022 (Approximate), Expi res: 06/05/2022 Start: 04-05-2022 End: 06-05-2022 C reactive protein [Mass/volume] in Serum or Plasma C-REACTIVE PROTEIN (CRP) Lab Routine Sjogren's syndrome, with unspecified organ involvement (HCC) Expected: 04/05/2022 (Approximate), Expires: 06/05/2022 [facility] Work Phone: Comment on above: Expected: 04/05/2022 (Approximate), Expi res: 06/05/2022 Start: 04-05-2022 End: 06-05-2022 CBC W Auto Differential panel - Blood CBC + DIFF Lab Routine Sjogren's syndrome, with unspecified organ involvement (HCC) Expected: 04/05/2022 (Approximate), Expires: 06/05/2022 [facility] Work Phone: Comment on above: Expected: 04/05/2022 (Approximate), Expi res: 06/05/2022 Start: 04-05-2022 End: 06-05-2022 Comprehensive metabolic 2000 panel - Serum or Plasma COMP METABOLIC PANEL Lab Routine Sjogren's syndrome, with unspecified organ involvement (HCC) Expected: 04/05/2022 (Approximate), Expires: 06/05/2022 [facility] Work Phone: Comment on above: Expected: 04/05/2022 (Approximate), Expi res: 06/05/2022 Start: 04-05-2022 End: 06-05-2022 Erythrocyte sedimentation rate SED RATE WESTERGREN Lab Routine Sjogren's syndrome, with unspecified organ involvement (HCC) Expected: 04/05/2022 (Approximate), Expires: 06/05/2022 [facility] Work Phone: Comment on above: Expected: 04/05/2022 (Approximate), Expi res: 06/05/2022 Start: 04-05-2022 End: 06-05-2022 MONOCLONAL PROTEIN, SERUM (BLOOD) MONOCLONAL PROTEIN, SERUM (BLOOD) Lab Routine Sjogren's syndrome, with unspecified organ involvement (HCC) Expected: 04/05/2022 (Approximate), Expires: 06/05/2022 [facility] Work Phone: Comment on above: Expected: 04/05/2022 (Approximate), Expi res: 06/05/2022 Start: 04-05-2022 End: 06-05-2022 PROTEIN ELECTROPHORESIS SERUM W/INTERP PROTEIN ELECTROPHORESIS SERUM W/INTERP Lab Routine Sjogren's syndrome, with unspecified organ involvement (HCC) Expected: 04/05/2022 (Approximate), Expires: 06/05/2022 [facility] Work Phone: Comment on above: Expected: 04/05/2022 (Approximate), Expi res: 06/05/2022 Start: 04-05-2022 End: 06-05-2022 Rheumatoid factor [Units/volume] in Serum or Plasma RHEUMATOID FACTOR BL Lab Routine Sjogren's syndrome, with unspecified organ involvement (HCC) Expected: 04/05/2022 (Approximate), Expires: 06/05/2022 [facility] Work Phone: Comment on above: Expected: 04/05/2022 (Approximate), Expi res: 06/05/2022 Start: 03-18-2022 COVID-19 VACCINE (5 - Moderna series) COVID-19 VACCINE (5 - Moderna series) [facility] Start: 01-04-2022 Anes transurethral w/urethrocystoscopy nos ANESTH BLADDER SURGERY [facility] Work Phone: Start: 01-04-2022 Ndsc njx implt matrl urt&/bldr nck ENDOSCOPIC INJECTION/IMPLANT [facility] Work Phone: Start: 01-04-2022 [facility] Work Phone: Start: 01-04-2022 Patient discharge [facility] Work Phone: Start: 08-29-2021 ADVANCE DIRECTIVE DISCUSSION ADVANCE DIRECTIVE DISCUSSION [facility] Start: 2021 BONE DENSITY BONE DENSITY [facility] Start: 2021 PNEUMOCOCCAL: 65+ (1 - PCV) PNEUMOCOCCAL: 65+ (1 - PCV) [facility] Start: 2021 PNEUMOCOCCAL: 65+ (2 - PCV) PNEUMOCOCCAL: 65+ (2 - PCV) [facility] Start: 2021 PNEUMOVAX AGE 65 AND OVER WITH 5YR LOOKBACK (#1) PNEUMOVAX AGE 65 AND OVER WITH 5YR LOOKBACK (#1) [facility] Start: 2021 Screening for osteoporosis Bone Density Screening [facility] Start: 05-18-2020 Adult depression screening assessment DEPRESSION SCREENING [facility] Start: 08-18-2017 End: 08-18-2017 Appointment Appointment [facility] Work Phone: Start: 02-17-2017 End: 02-17-2017 Appointment Appointment [facility] Work Phone: Start: 02-17-2017 End: 02-17-2017 [facility] Work Phone: Start: 02-17-2017 End: 02-17-2017 Follow Up Appt 6 months Follow Up Appt 6 months [facility] Work Phone: Start: 08-26-2016 End: 05-27-2016 [facility] Work Phone: Start: 08-19-2016 End: 08-19-2016 [facility] Work Phone: Start: 08-19-2016 End: 08-19-2016 Follow Up Appt 6 months Follow Up Appt 6 months [facility] Work Phone: Start: 07-13-2016 End: 07-13-2016 Follow up Appt 3x/week Follow up Appt 3x/week [facility] Work Phone: Start: 07-08-2016 End: 07-08-2016 Follow up Appt 3x/week Follow up Appt 3x/week [facility] Work Phone: Start: 07-05-2016 End: 07-05-2016 Follow up Appt 3x/week Follow up Appt 3x/week [facility] Work Phone: Start: 06-06-2016 Colonoscopy COLONOSCOPY [facility] Start: 06-06-2016 COLORECTAL CANCER SCREENING COLORECTAL CANCER SCREENING [facility] Start: 06-06-2016 Screening for malignant neoplasm of colon [facility] Start: 05-31-2016 End: 05-31-2016 Diagnostic colonoscopy Colonoscopy [facility] Work Phone: Start: 05-31-2016 End: 07-09-2016 Primary Care Physician Primary Care Physician Janet Ramos DO, [facility], [address] [place] [address], [address], [place], [address] [facility] Work Phone: Start: 05-31-2016 End: 05-31-2016 Upper GI endoscopy, biopsy Upper gastrointestinal endoscopy; with biopsy [facility] Work Phone: Start: 2016 RSV Vaccine (1 - Risk 60-74 years 1-dose series) RSV Vaccine (1 - Risk 60-74 years 1-dose series) [facility] Start: 03-02-2016 End: 03-02-2016 *BMP *BMP [facility] Phone: Start: 02-12-2016 End: 08-17-2016 Follow Up Appt 3 months Follow Up Appt 3 months [facility] Phone: Start: 12-19-2015 End: 12-18-2015 *Hepatic Function Panel *Hepatic Function Panel [facility] Phone: Start: 12-18-2015 End: 12-19-2015 Gastroenterology Referral Gastroenterology Referral Tapan Schwab MD, [facility], [address] [place] [address], [facility] Phone: Start: 12-10-2015 End: 12-10-2015 *CMP Complete Metabolic Panel *CMP Complete Metabolic Panel [facility] Work Phone: Start: 12-10-2015 End: 12-18-2015 Gamma glutamyl transferase *GGTP [facility] Phone: Start: 11-28-2015 End: 11-28-2015 Ct abdomen w/dye CT Abdomen with Contrast [facility] Phone: Start: 11-19-2015 End: 11-19-2015 X-ray exam of hand X-Ray, Hand [facility] Work Phone: Start: 11-17-2015 End: 11-18-2015 X-ray exam of ankle X-Ray, Ankle [facility] Phone: Start: 11-14-2015 End: 11-21-2015 *FLAKITA *FLAKITA [facility] Phone: Start: 11-14-2015 End: 11-14-2015 *CBC with Differential *CBC with Differential [facility] Phone: Start: 11-14-2015 End: 11-16-2015 *CMP Complete Metabolic Panel *CMP Complete Metabolic Panel [facility] Phone: Start: 11-14-2015 End: 11-14-2015 *HCVQSP Hepatitis C Quant, DNA Probe, Amplified *HCVQSP Hepatitis C Quant, DNA Probe, Amplified [facility] Phone: Start: 11-14-2015 End: 11-17-2015 Alpha 1 antitrypsin [Mass/volume] in Serum or Plasma *AA Hjqhk-4-Goipvdtmees-Tota l [facility] Phone: Start: 11-14-2015 End: 11-14-2015 C reactive protein (hsCRP) *CRP - C-Reative Protein [facility] Phone: Start: 11-14-2015 End: 11-17-2015 Ceruloplasmin [Mass/volume] in Serum or Plasma *CER - Ceruloplasmin [facility] Phone: Start: 11-14-2015 End: 11-14-2015 Coagulation factor induced.INR assay in platelet poor plasma *PT/INR [facility] Phone: Start: 11-14-2015 End: 11-14-2015 Erythrocyte sedimentation rate *Sedimentation Rate (ESR) [facility] Phone: Start: 11-14-2015 End: 11-16-2015 Ferritin *Ferritin [facility] Phone: Start: 11-14-2015 End: 11-17-2015 Hepatitis A virus Ab [Presence] in Serum *HEAT Hepatitis A Antibdy - IGG/IGM [facility] Phone: Start: 11-14-2015 End: 11-17-2015 Hepatitis B virus core Ab [Presence] in Serum *HEBCT Hepatitis B Core Antbd-IGG/IGM [facility] Phone: Start: 11-14-2015 End: 11-18-2015 Mitochondria Ab [Presence] in Serum *AMA Anti Mitochondrial AB 6650 [facility] Work Phone: Start: 11-14-2015 End: 11-18-2015 Smooth muscle Ab [Presence] in Serum *ASMA - ASM (ANTI Smooth Muscle Antibody) [facility] Work Phone: Start: 11-14-2015 End: 11-17-2015 Transferrin *TRF Transferrin [facility] Work Phone: Start: 10-17-2015 End: 10-16-2015 *Hepatic Function Panel *Hepatic Function Panel [facility] Work Phone: Start: 10-17-2015 End: 10-16-2015 Lipid panel [AGGREGATE] *Lipid Profile CC PCP [facility] Phone: Start: 08-05-2015 End: 08-17-2016 CSM CSM [facility] Phone: Start: 08-05-2015 End: 08-17-2016 Follow Up Appt 6 months Follow Up Appt 6 months [facility] Work Phone: Start: 04-16-2015 End: 04-15-2015 *Hepatic Function Panel *Hepatic Function Panel [facility] Work Phone: Start: 04-16-2015 End: 04-15-2015 Lipid panel [AGGREGATE] *Lipid Profile CC PCP [facility] Phone: Start: 04-11-2015 End: 04-11-2015 Ct abdomen&pelvis w/contrast CT Abdomen/pelvis with contrast [facility] Work Phone: Start: 02-11-2015 End: 02-12-2015 *CBC with Differential *CBC with Differential [facility] Phone: Start: 02-11-2015 End: 02-12-2015 *CMP Complete Metabolic Panel *CMP Complete Metabolic Panel [facility] Phone: Start: 02-11-2015 End: 02-12-2015 Urinalysis complete panel - Urine *UAC- Urinalysis, Complete w/ Micro [facility] Phone: Start: 02-05-2015 End: 08-17-2016 Follow Up Appt 6 months Follow Up Appt 6 months [facility] Phone: Start: 11-07-2014 End: 08-17-2016 Follow Up Appt 3 months Follow Up Appt 3 months [facility] Phone: Start: 10-16-2014 End: 10-16-2014 *Hepatic Function Panel *Hepatic Function Panel [facility] Phone: Start: 10-16-2014 End: 10-16-2014 Lipid panel [AGGREGATE] *Lipid Profile CC PCP [facility] Phone: Start: 07-08-2014 End: 08-17-2016 Chest x-ray X-Ray, Chest, PA & Lateral [facility] Phone: Start: 06-19-2014 End: 08-17-2016 Follow Up Appt 3 months Follow Up Appt 3 months [facility] Phone: Start: 06-19-2014 End: 08-17-2016 Pulmonary Fuction Test - complete Pulmonary Fuction Test - complete [facility] Phone: Start: 06-12-2014 End: 06-12-2014 Ct thorax w/dye CT Chest with Contrast [facility] Phone: Start: 06-11-2014 End: 06-12-2014 *CBC with Differential *CBC with Differential [facility] Phone: Start: 06-11-2014 End: 06-12-2014 *CMP Complete Metabolic Panel *CMP Complete Metabolic Panel [facility] Phone: Start: 06-11-2014 End: 06-11-2014 Chest x-ray X-Ray, Chest, PA & Lateral [facility] Phone: Start: 06-04-2014 End: 06-04-2014 Airway inhalation treatment Aerosol Treatment (first) [facility] Phone: Start: 06-04-2014 End: 06-04-2014 Breathing capacity test Peak Flow [facility] Phone: Start: 06-04-2014 End: 06-04-2014 Chest x-ray X-Ray, Chest, PA & Lateral [facility] Phone: Start: 06-04-2014 End: 06-04-2014 Follow up Appt 1 week Follow up Appt 1 week [facility] Phone: Start: 05-30-2014 End: 05-30-2014 Follow Up Appt Other Follow Up Appt Other [facility] Phone: Start: 05-29-2014 Mammography MAMMOGRAM [facility] Start: 05-29-2014 Screening for malignant neoplasm of breast Mammogram Screening [facility] Start: 05-29-2014 End: 06-24-2015 Urology Referral Urology Referral [facility] Phone: Start: 05-21-2014 End: 05-21-2014 Ct abdomen w/o dye CT Abdomen [facility] Phone: Start: 05-20-2014 End: 05-20-2014 Contrst x-ray, urinary tract X-Ray, KUB [facility] Phone: Start: 05-20-2014 End: 05-21-2014 Follow-up visit Follow Up as needed [facility] Phone: Start: 05-20-2014 End: 05-23-2014 Urine culture, bacteria *CUUR - Urine FARIDEH Culture - Dane COL Count [facility] Phone: Start: 05-17-2014 Pneumococcal Vaccine: 50+ (2 of 2 - PCV) Pneumococcal Vaccine: 50+ (2 of 2 - PCV) [facility] Start: 05-06-2014 End: 05-06-2014 Ct abdomen w/o dye CT Abdomen [facility] Phone: Start: 05-01-2014 End: 05-01-2014 Urinalysis nonauto w/o scope UA Dipstick (Office) [facility] Phone: Start: 05-01-2014 End: 05-01-2014 Urine culture, bacteria *CUUR - Culture, Urine ([place] Count) [facility] Phone: Start: 04-18-2014 End: 04-24-2014 *BMP *BMP [facility] Phone: Start: 04-18-2014 End: 04-24-2014 *Hepatic Function Panel *Hepatic Function Panel [facility] Phone: Start: 04-18-2014 End: 04-24-2014 CBC W Auto Differential panel - Blood *CBC without Diff [facility] Phone: Start: 04-18-2014 End: 05-21-2014 Chest x-ray X-Ray, Chest, PA & Lateral [facility] Phone: Start: 04-18-2014 End: 04-18-2014 Echocardiography Echocardiogram (complete) [facility] Phone: Start: 04-18-2014 End: 04-18-2014 Electrocardiogram, complete EKG (In office) [facility] Phone: Start: 04-18-2014 End: 04-18-2014 Follow Up Appt 6 weeks Follow Up Appt 6 weeks [facility] Phone: Start: 04-18-2014 End: 04-24-2014 Lipid panel [AGGREGATE] *Lipid Profile CC PCP [facility] Phone: Start: 04-18-2014 End: 04-18-2014 MMM MMM [facility] Phone: Start: 04-18-2014 End: 04-18-2014 Nuclear stress test -Lexiscan Nuclear stress test -Lexiscan [facility] Phone: Start: 04-18-2014 End: 04-23-2014 Thyroid stimulating hormone (TSH) *TSH [facility] Phone: Start: 04-18-2014 End: 04-24-2014 Thyroxine (T4) *T4 (Total) [facility] Phone: Start: 03-27-2014 End: 03-27-2014 Contrst x-ray, urinary tract X-Ray, KUB [facility] Phone: Start: 09-17-2013 End: 09-17-2013 *BMP *BMP [facility] Phone: Start: 09-17-2013 End: 04-25-2014 *CBC with Differential *CBC with Differential [facility] Phone: Start: 09-17-2013 End: 09-17-2013 C reactive protein (hsCRP) *CRP - C-Reative Protein [facility] Phone: Start: 09-17-2013 End: 09-17-2013 Erythrocyte sedimentation rate *Sedimentation Rate (ESR) [facility] Phone: Start: 2006 SHINGRIX VACCINE (1 of 2) SHINGRIX VACCINE (1 of 2) [facility] Start: 2001 COLOGUARD (FIT-DNA) COLOGUARD (FIT-DNA) [facility] Start: [address] COLONOGRAPHY [facility] Start: 2001 FECAL OCCULT BLOOD FECAL OCCULT BLOOD [facility] Start: 2001 Screening for malignant neoplasm of colon [facility] Start: 2001 SIGMOIDOSCOPY SIGMOIDOSCOPY [facility] Start: 1974 ANNUAL PCP TEAM CHRONIC DISEASE VISIT ANNUAL PCP TEAM CHRONIC DISEASE VISIT [facility] Start: 1974 Anxiety Screening Anxiety Screening [facility] Start: 1974 BP CONTROLLED (<130/80) BP CONTROLLED (<130/80) [facility] Start: 1974 Depression Screening Depression Screening [facility] Start: 1974 HIV SCREENING HIV SCREENING [facility] Start: 1961 COVID-19 VACCINE (1) COVID-19 VACCINE (1) [facility] Start: 1956 COVID-19 VACCINE (#1) COVID-19 VACCINE (#1) [facility] Alanine aminotransfe rase [Enzymatic activity/volume] in Serum or Plasma [facility] Albumin [Mass/volume ] in Serum or Plasma [facility] Alkaline phosphatase [Enzymatic activity/volume] in Serum or Plasma [facility] Anion gap in Serum o r Plasma [facility] Anion gap measurement [facility] Bilirubin measuremen t, urine [facility] Bilirubin, total measurement [facility] BUN/Creatinine ratio [facility] BUN/Creatinine ratio [facility] Calcium [Mass/volume ] in Serum or Plasma [facility] Calcium [Mass/volume ] in Serum or Plasma [facility] Carbon dioxide, tota l [Moles/volume] in Central venous blood [facility] Carbon dioxide, tota l [Moles/volume] in Serum or Plasma [facility] CBC W Auto Different ial panel - Blood [facility] Chloride [Moles/volu me] in Serum or Plasma [facility] Comprehensive metabo lic 2000 panel - Serum or Plasma [facility] Creatinine [Mass/vol ume] in Serum or Plasma [facility] Creatinine [Moles/vo lume] in Serum or Plasma [facility] CTA Heart and [place] ry arteries W contrast IV [facility] Erythropoietin (EPO) [Units/volume] in Serum or Plasma [facility] Exercise tolerance test [facility] Ferritin [Mass/volum e] in Serum or Plasma [facility] Folate [Moles/volume ] in Serum or Plasma [facility] Folate [Moles/volume ] in Serum or Plasma [facility] Folate [Moles/volume ] in Serum or Plasma [facility] Gliadin peptide IgA Ab [Units/volume] in Serum [facility] Gliadin peptide IgA Ab [Units/volume] in Serum [facility] Gliadin peptide IgA Ab [Units/volume] in Serum [facility] Gliadin peptide IgG Ab [Units/volume] in Serum [facility] Gliadin peptide IgG Ab [Units/volume] in Serum [facility] Gliadin peptide IgG Ab [Units/volume] in Serum [facility] Glucose [Mass/volume ] in Serum or Plasma [facility] Glucose [Mass/volume ] in Serum or Plasma [facility] Hemoglobin [Presence ] in Urine [facility] Iron [Mass/mass] in Unspecified specimen [facility] Iron and Iron bindin g capacity panel - Serum or Plasma [facility] Iron saturation [Mas s Fraction] in Serum or Plasma [facility] Lactate dehydrogenas e measurement [facility] Magnesium measurement [facility] Measurement of immunoglobulin A in serum specimen [facility] Measurement of immunoglobulin A in serum specimen [facility] Measurement of immunoglobulin A in serum specimen [facility] Measurement of keton es in urine using dipstick [facility] Measurement of renal function [facility] Measurement of renal function [facility] Measurement of respiratory function [facility] MR Lower Extremity Joint [facility] NM Heart Views W str ess and W radionuclide IV [facility] Patient Education [facility] Work Phone: Patient referral [facility] Work Phone: pH of Urine [facility] Potassium [Moles/vol ume] in Serum or Plasma [facility] Potassium measurement [facility] Serum chloride measurement [facility] Serum inorganic phos phate measurement [facility] Sodium [Moles/volume ] in Serum or Plasma [facility] Sodium measurement [facility] Specific gravity of Urine [facility] Tissue transglutamin ase IgA Ab [Units/volume] in Serum [facility] Tissue transglutamin ase IgA Ab [Units/volume] in Serum [facility] Tissue transglutamin ase IgA Ab [Units/volume] in Serum [facility] Total iron binding capacity measurement [facility] Total protein measurement [facility] Ultrasound elastography [facility] Urea nitrogen [Mass/volume] in Serum or Plasma [facility] Urea nitrogen [Mass/volume] in Serum or Plasma [facility] Urine dipstick for glucose [facility] Urine dipstick for leukocyte esterase [facility] Urine dipstick for nitrite [facility] Urine dipstick for protein [facility] Urine examination [facility] Urobilinogen [Presen ce] in Urine [facility] US Heart [facility] Vitamin B12 measurement [facility] Immunizations Immunization Date Immunization Notes Care Provider Fa cility 07-05-2021 Covid (Moderna) [facility] 03-07-2019 tetanus toxoid, redu martin diphtheria toxoid, and acellular pertussis vaccine, adsorbed Génesis Carlton MD Work Phone: [facility] 05-25-2017 influenza, injectabl e, quadrivalent, preservative free Dr. Janet Ramos Work Phone: [facility] 05-25-2017 influenza, seasonal, injectable [facility] 05-25-2017 influenza, seasonal, injectable, preservative free Génesis Carlton MD Work Phone: [facility] 05-25-2017 influenza virus vacc ine, unspecified formulation Génesis Carlton MD Work Phone: [facility] 05-27-2016 influenza, injectabl e, quadrivalent, preservative free Dr. Janet Ramos Work Phone: [facility] 05-27-2016 influenza, seasonal, injectable [facility] 05-27-2016 influenza, seasonal, injectable, preservative free Génesis Carlton MD Work Phone: [facility] 06-03-2015 influenza, injectabl e, quadrivalent, preservative free Dr. Janet Ramos Work Phone: [facility] 06-03-2015 influenza, seasonal, injectable [facility] 06-03-2015 influenza, seasonal, injectable, preservative free Génesis Carlton MD Work Phone: [facility] 08-15-2014 influenza, injectabl e, quadrivalent, preservative free Dr. Janet Ramos Work Phone: [facility] 08-15-2014 influenza, seasonal, injectable [facility] 08-15-2014 influenza, seasonal, injectable, preservative free Génesis Carlton MD Work Phone: [facility] 07-29-2014 influenza, seasonal, injectable, preservative free Génesis Carlton MD Work Phone: [facility] 09-06-2013 Influenza virus vaccine [facility] 09-06-2013 influenza, seasonal, injectable Génesis Carlton MD Work Phone: [facility] 09-06-2013 influenza, seasonal, injectable, preservative free Génesis Carlton MD Work Phone: [facility] 05-17-2013 pneumococcal polysaccharide vaccine, 23 valent Génesis Carlton MD Work Phone: [facility] 04-30-2009 influenza virus vacc ine, unspecified formulation Génesis Carlton MD Work Phone: [facility] Work Phone: 01-29-2008 tetanus toxoid, redu martin diphtheria toxoid, and acellular pertussis vaccine, adsorbed Génesis Carlton MD Work Phone: [facility] Work Phone: Payers Date Payer Category Payer Self-pay [id number] 2013 Unknown [id number] 2013 Unknown [id number] 2008 Medicaid [employer] [facility] [facility] [id number] 2008-Present [phone] [address] [place] [address] Medicaid [id number]. [id number] 2008 Medicaid [id number] [id number]. [id number] Unknown [id number] 2.16.840.1.470453.3.579.2.462 Unknown [id number] 2.16.840.1.145563.3.579.2.462 Unknown [id number] 2.16.840.1.417053.3.579.2.462 Unknown [id number] 2.16.840.1.016982.3.579.2.462 Unknown [id number] 2.840.1.214443.3.579.2.462 Unknown [id number] 2.840.1.824695.3.579.2.462 Unknown [id number] 2.840.1.408698.3.579.2.462 Unknown [id number] 2.840.1.764277.3.579.2.462 Unknown [id number] 2.840.1.009465.3.579.2.462 Unknown [id number] 2.840.1.802873.3.579.2.462 Unknown [id number] 2.840.1.580523.3.579.2.462 Unknown [id number] 2.840.1.566729.3.579.2.462 Unknown [id number] 2.840.1.468509.3.579.2.462 Unknown [id number] .840.1.324542.3.579.2.462 Unknown [id number] 2.840.1.069896.3.579.2.462 Unknown [id number] .840.1.055495.3.579.2.462 Unknown [id number] .840.1.614198.3.579.2.462 Unknown [id number] .840.1.519585.3.579.2.462 Unknown [id number] 2.840.1.171511.3.579.2.462 Unknown [id number] 2.840.1.099380.3.579.2.462 Unknown [id number] 2.840.1.823160.3.579.2.462 Unknown [id number] 2.16.840.1.007626.3.579.2.462 Unknown [id number] 2.16.840.1.959099.3.579.2.462 Unknown [id number] 2.16.840.1.744754.3.579.2.462 Unknown [id number] 2.16.840.1.019606.3.579.2.462 Unknown [id number] 2.16.840.1.046467.3.579.2.462 Unknown [id number] 2.16.840.1.691088.3.579.2.462 Unknown [id number] 2..840.1.986020.3.579.2.462 Unknown [id number] 2.840.1.836969.3.579.2.462 Unknown [id number] 2.840.1.581693.3.579.2.462 Unknown [id number] 2..840.1.761877.3.579.2.462 Unknown [id number] 2..840.1.027053.3.579.2.462 Unknown [id number] 2.16.840.1.541566.3.579.2.462 Unknown [id number] 2.16.840.1.144011.3.579.2.462 Unknown [id number] 2.840.1.275355.3.579.2.462 Unknown [id number] 2.16.840.1.126943.3.579.2.462 Unknown [id number] 2.16.840.1.683819.3.579.2.462 Unknown [id number] 2.16.840.1.051500.3.579.2.462 Unknown [id number] 2.16.840.1.705410.3.579.2.462 Unknown [id number] 2.840.1.417417.3.579.2.462 Unknown [id number] 2.840.1.395217.3.579.2.462 Unknown [id number] 2.840.1.447578.3.579.2.462 Unknown [id number] 2.840.1.879723.3.579.2.462 Unknown [id number] 2.840.1.151181.3.579.2.462 Social History Date Type Detail Facility Start: 02-04-2009 End: 05-05-2025 Tobacco smoking status MNIS Ex-smoker [facility] Start: 03-29-1968 End: 03-29-1983 History of tobacco use Current smoker [facility] Start: 03-29-1968 End: 03-29-1983 History of tobacco use Cigarette Smoker [facility] Start: 11-21-2020 End: 12-26-2024 Alcohol intake Current non-drinker of alcohol (finding) [facility] Start: 1955 Sex Assigned At Not on file [facility] Start: 08-05-2021 End: 12-19-2023 Tobacco smoking status [facility] Unknown if ever smoked [facility] Start: 1955 Sex Assigned At Female W [facility] Start: 02-04-2009 End: 04-22-2023 Cigarettes smoked current (pack per day) - Reported 4 [facility] Start: 02-04-2009 End: 04-23-2022 Tobacco use and exposure Smokeless tobacco non-user [facility] Work Phone: Start: 04-13-2022 End: 04-23-2022 Exposure to SARS-CoV-2 (event) Not sure [facility] Start: 04-23-2022 End: 04-22-2023 Tobacco use panel [facility] Adult Depression Screening Assessment 2 [facility] Start: 11-08-2024 End: 11-21-2024 Sex Female (finding) [facility] NEGATED: Highlighted row Not [facility] Medical Equipment Procedure Code Equipment Code [...] botulinum toxin injection [id number],2ML FDA Start: 01-04-2022 [id number] Implant - [id number] Start: 12-15-2011 Comment on above: Description: digital compression screw 1.5mm x 30mm Wire Fix .045in 6in [facility] - [id number] Start: 05-19-2011 Comment on above: Description: K-wire [...] Facility 01-04-2022 Functional status Ambulates;Bath room Privilege [facility] Work Phone: 03-13-2015 Are you deaf, or do you have serious difficulty hearing No 03/13/2015 3:44 PM EDT Jade Stafford MA No [facility] 03-13-2015 Are you blind, or do you have serious difficulty seeing, even when wearing glasses No 03/13/2015 3:44 PM EDT Jade Stafford MA No [facility] 03-13-2015 Do you have serious difficulty walking or climbing stairs No 03/13/2015 3:44 PM EDT Jade Stafford MA No [facility] 03-13-2015 Do you have difficul ty dressing or bathing No 03/13/2015 3:44 PM EDT Jade Stafford MA No [facility] 03-13-2015 Because of a physica l, mental, or emotional condition, do you have difficulty doing errands alone such as visiting a physician's office or shopping No 03/13/2015 3:44 PM EDT Jade Stafford MA No [facility] Mental Status Date Assessment Result Facility 05-05-2025 Cognitive function Voice/Name [facility] Work Phone: 03-07-2025 Cognitive function Voice/Name [facility] Work Phone: 02-22-2025 Cognitive function Awake;Alert;A ppropriate;Fol lows Commands [facility] Work Phone: 02-15-2025 Cognitive function Arousable To Voice/Nam e [facility] Work Phone: 11-21-2024 Cognitive function Touch/Shaking [facility] Work Phone: 09-29-2024 Cognitive function Level Of Cons ciousness Awake;Alert;Appropriate;Fol lows Commands [facility] Work Phone: 09-28-2024 Cognitive function Level Of Cons ciousness Awake;Alert;Appropriate;Fol lows Commands [facility] Work Phone: 08-30-2024 Cognitive function Level Of Cons ciousness Follows Commands;Drowsy [facility] Work Phone: 08-30-2024 Cognitive function Voice/Name [facility] Work Phone: 01-04-2022 Cognitive function Level Of Cons ciousness Sedated [facility] Work Phone: 01-04-2022 Cognitive function Patient Orien tation Person;Place;Time [facility] Work Phone: 03-13-2015 Because of a physica l, mental, or emotional condition, do you have serious difficulty concentrating, remembering, or making decisions No 03/13/2015 3:44 PM EDT Jade Stafford MA No [facility] Clinical Notes 12-22-2021 to 06-12-2025 Note Date & Type Note Facility 06-12-2025 Progress note [facility] 05-05-2025 Discharge summary [facility] 05-05-2025 Discharge summary Note Date/Time May 05, 2025 3:32pm [facility] Medical Records Department [address] [place] [address] Emergency Department Summary 05/05/25 MR#: [id number] Acct: [id number] Name: WINTER JOY Rep #:[id number] : 1955 70 From: Carolyne Majano PCP: Dr. Janet Ramos, Status:REG ER Location: ED HPI History of Present Illness Chief Complaint: Chest Pain Informant: patient Narrative Narrative: Patient is a 70-year-old female with history of rheumatoid arthritis, Sjogren's syndrome, PTSD, neuropathy, TROY, bipolar disorder, hypertension, hyperlipidemia,GERD, thoracic aortic aneurysm without rupture and chronic pain presenting with right-sided chest pain the past 2 days. She states it radiates from the right center of her chest underneath her breast and then around to her upper thoracic region. She states it is worse with movement or if she takes a deep breath. She states that about 8 days ago she did have an injury where she ran into a door at home. She has been sore since that happened but is not sure why she is only having more pain. Denies any other acute injuries. States the pain is constant. Last had Motrin at 2 AM last night but does not feel it is helping. Denies feeling short of breath. Denies any nausea or vomiting. Denies any abdominal pain. Denies any acute cough or URI symptoms. Notes she has been having increased pain throughout her hands and feet and feels they are swollen for the past week or so. [facility] Medical History Normal Holter exam PTSD (post-traumatic [...] mg PO DAILY #30 tabs 11/0203/07/25 Rx ascorbic acid (vitamin C) 500 mg 500 [...] 10/23 Unknown Rx gram/dose oral powder (Miralax) plecanatide 3 mg tablet (Trulance) 3 mg PO QDAY #90 ta bs 03/27/25 Unknown Rx Allergy/AdvReac Type Severity Reaction Status Date / Time tramadol (From Ultram) Allergy Intermediate Itching Verified 05/05/25 11:30 oxycodone (From Percocet) Allergy Mild Itching Verified 05/05/25 11:30 cephalexin (From Keflex) Allergy Rash Verified 05/05/25 11:30 flurazepam (From Dalmane) Allergy Other Verified 05/05/25 11:30 shellfish derived Allergy RASH Verified 05/05/25 11:30 divalproex sodium (From AdvReac Intermediate Other - Verified 05/05/25 11:30 Depakote) nightmares quetiapine (From Seroquel) AdvReac Mild Other - Verified 05/05/25 11:30 shaking, lightheaded and abnormal dreams meloxicam AdvReac Unknown Verified 05/05/25 11:30 Family History Father Cancer Alcoholism Hypertension Mother [...] substance use type: does not use ROS ROS ED Constitutional Constitutional ED: Denies chills or fever(s) Cardiovascular Cardiovascular: Reports as per HPI and chest pain Respiratory/Chest Respiratory/Chest: Denies cough or dyspnea Gastrointestinal Gastrointestinal: Denies vomiting Musculoskeletal Musculoskeletal: Reports arthralgias and myalgias Integumentary Denies rash Neurologic Neurologic: Denies paresthesias or weakness Psychiatric Psychiatric: Reports anxiety Hematologic/Lymphatic Hematologic/Lymphatic: Denies easy bleeding or easy bruising EXAM Physical Exam Const Vital Signs: 05/05/25 11:30 05/05/25 11:52 05/05/25 12:10 Temperature 97.6 F L Temperature Source Temporal Pulse Rate 67 Respiratory Rate 18 Respiratory Effort Normal Blood Pressure 154/84 H Blood Pressure Mean 107 Pulse Ox 100 Oxygen Delivery Method Room Air 05/05/25 12:29 05/05/25 13:00 05/05/25 14:00 Temperature Temperature Source Pulse Rate 71 74 69 Respiratory Rate 20 H 18 15 Respiratory Effort Blood Pressure 164/73 H 157/75 H 152/88 H Blood Pressure Mean 103 102 109 Pulse Ox 100 97 96 Oxygen Delivery Method Room Air Room Air Room Air Positive well nourished and well developed General Appearance ED: well developed and NAD HEENT Reports dry mucous membranes HEENT Narrative: Chronic dry because of membranes secondary to Sjogren syndrome normocephalic and atraumatic Mouth ED: Yes dry mucous membranes Mouth: dry mucous membranes Neck supple and no JVD Chest Wall inspection of chest normal Chest Narrative: No chest wall crepitus. Tenderness to palpation of the right anterior chest Resp normal respiratory effort and clear to auscultation bilaterally Cardio regular rate and regular rhythm GI normal to inspection, nondistended, normoactive bowel sounds, soft to palpation and non-tender Back/Spine no thoracic nor lumbar tenderness Extremity normal to inspection General Extremety ED: Negative for edema General Extremity: Negative for edema Neuro oriented x3 Sensorium / Orientation: awake and alert Motor Exam: Negative for general weakness Psych mental status grossly normal Skin no rashes or lesions noted and no wounds Heart Score History: Slightly/Non-Suspicious ECG: Normal Age: >/= 65 years Risk Factors: 1 or 2 Risk Factors Troponin: </= Normal Limit Score: 3 MDM MDM MDM Narrative Medical decision making narrative: Patient is evaluated for right-sided chest pain. It is worse with movement and deep breathing. Seems to be very muscle skeletal. It is reproduced with palpation and movement. She denies any associated shortness of breath or difficulty breathing. She is not hypoxic or tachypneic. I do not think she needs workup for PE at this time. X-ray of the ribs as well as chest x-ray reviewed by myself as well as radiology does not show any acute fracture. Cardiac workup is obtained because of patient's age and she does have some cardiac risk factors however she notes that she had a normal cardiac catheterization in last year. Patient is she given aspirin for symptoms but continues have pain and is given aToradol. Her workup is largely normal/unremarkable. No findings consistent with ACS, pneumonia, pneumothorax or rib fracture. Outpatient follows with painmanagement Dr. Colin. She states she has a muscle relaxer at home. Will follow-up with Dr. Colin this week. Is counseled on continuing Motrin and Tylenol for pain control, using Lidoderm patches and taking her muscle relaxer. Discharged home in stable condition. Lab Data Attestation: I reviewed the patient's lab results. Labs: Laboratory Results - last 24 hr 05/05/25 05/05/25 11:46 14:22 WBC 9.9 RBC 4.34 Hgb 12.0 Hct 38.7 MCV 89.2 MCH 27.6 MCHC 31.0 L RDW Std Deviation 64.0 H RDW Coeff of Jeramy 19.6 H Plt Count 305 MPV 8.7 Immature Gran % (Auto) 0.500 Neut % (Auto) 60.6 Lymph % (Auto) 29.2 Potter % (Auto) 8.7 Eos % (Auto) 0.9 Baso % (Auto) 0.1 Absolute Neuts (auto) 6.0 Absolute Lymphs (auto) 2.90 Nucleated RBC % 0 Sodium 133 Potassium 4.8 Chloride 100 Carbon Dioxide 19.7 L Anion Gap 13 BUN 12 Creatinine 0.59 L Estim Creat Clear Calc 76.85 Est GFR (MDRD) Non-Af 97 BUN/Creatinine Ratio 20.5 H Glucose 81 Calcium 9.7 Total Bilirubin 0.19 Direct Bilirubin < 0.08 AST 21 ALT 10 Alkaline Phosphatase 82 Troponin T High Sens 10 Troponin T Hi Sens 2 Hr 9 Total Protein 7.9 Albumin 4.1 Globulin 3.8 Lipase 18 Radiography Diagnostic Testing: Clinical Impression(s) from Imaging Studies Ribs w/Chest X-Ray 05/05/25 12:30 IMPRESSION: Negative for acute cardiopulmonary disease Negative for right-sided rib fracture. Reading Location: [facility] Rhythm Strip Rhythm Strip: Sinus Rhythm Rate: 66 Ectopy: None EKG Initial EKG: Attestation: I personally reviewed and interpreted this EKG as follows: Interpretation: Sinus Rhythm Comments: Normal sinus rhythm at a rate of 66 bpm Normal axis Normal intervals Normal ST segments Discharge Plan Triage Chief Complaint: Chest Pain ED Provider: Carolyne Leigh Dx/Rx/DC Orders Clinical Impression: Acute right-sided thoracic back pain Prescriptions: No Action potassium chloride 20 mEq tablet extended release 20 meq PO BID oxybutynin chloride 10 mg tablet extended release 24hr 10 mg PO DAILY trazodone 150 mg tablet 150 mg PO QHS lisinopril 20 mg tablet 20 mg PO BID Gemtesa 75 mg tablet 75 mg PO DAILY pantoprazole 40 mg tablet,delayed release (DR/EC) 40 mg PO QDAY ondansetron 4 mg tablet,disintegrating 4 mg PO Q8H PRN (Reason: nausea and vomiting) metoprolol tartrate 25 mg tablet 25 mg PO BID Qty: 180 3RF amlodipine 5 mg tablet 5 mg PO DAILY Qty: 30 11RF tizanidine 4 mg tablet 4 mg PO BID PRN (Reason: muscle spasticity) guaifenesin 1,200 mg tablet extended release 12hr 1,200 mg PO BID ascorbic acid (vitamin C) 500 mg tablet 500 mg PO QDAY Trulance 3 mg tablet 3 mg PO QDAY Qty: 90 1RF Rx Instructions: take once daily in the morning duloxetine 30 mg capsule,delayed release(DR/EC) 30 mg PO BID polyethylene glycol 3350 [Miralax] 17 gram/dose powder 4 g PO ONCE Qty: 238 0RF Rx Instructions: As instructed for bowel prep Primary Care Provider: Janet Ramos Referrals: Janet Ramos DO [Primary Care Provider] - Activity Restrictions/Additional Instructions: Continue your muscle relaxers and alternate Profen and Tylenol for pain. Your workup today did not show any acute traumatic injuries, pneumonia, collapsed lungs or signs of heart stress. Follow-up with Dr. Colin at pain management this week as scheduled. Print Language: [place] Island[place] Disposition Disposition: Home, Self Care What to do if you have Problems For any increased pain, shortness of breath, bleeding, nausea or vomiting, chestpain, or any unexpected problems, contact your Primary Care Provider. Call [facility] ([phone]) or report to the closest Emergency Room. Call 911 if necessary. 05/05/25 1532 <Electronically signed by Carolyne Leigh DO> Cosigner Signature (if applicable): CC: Dr. Janet Ramos DO ~ Signed [facility] Work Phone: 1(985) 589-554009-07-2025 Hospital Discharge instructionsAdditional Instructions Continue your muscle relaxers and alternate Profen and Tylenol for pain. Your workup today did not show any acute traumatic injuries, pneumonia, collapsed lungs or signs of heart stress. Follow-up with Dr. Colin at pain management this week as scheduled.[facility] Work Phone: 1(408) 891-557709-07-2025 Radiology Diagnostic study note [facility] Imaging Services [address] [place], [place] [address] Ribs Uni Min 3V w/PA Chest MR#: [id number] Acct: [id number] Name: WINTER JOY Rep #: [id number] : 1955 F 70 From: Clark Ramirez MD PCP: Dr. Janet Ramos DO Status: REG ER Study:Ribs Uni Min 3V w/PA Chest Date of Exam : 05/05/25 Exam# [id number] Ordering Dr: Ti Leigh DO PROCEDURE: RIBS UNI MIN 3V W/PA CHEST 05/05/2025 REASON FOR EXAM: PAIN TECHNIQUE: Procedure Code: RADRIB Modality: DX Procedure: RIBS UNI MIN 3V W/PA CHEST COMPARISON: September 2024. FINDINGS: Hardware and support lines: None. Heart: Negative. Lungs: Negative for infiltrates, or pulmonary edema. Pleura: No pleural thickening. No pleural effusion. Mediastinum and aorta: Negative for hilar adenopathy. Slight tortuous thoracic aorta. Bones: Additional views of the right-sided ribs shows no fractures. Age- appropriate degenerative changes of the spine. Other: Remainder of the exam negative. RAD/Ribs Uni Min 3V w/PA Chest IMPRESSION: Negative for acute cardiopulmonary disease Negative for right-sided rib fracture. Reading Location: [id number] CC: Dr. Carolyne Leigh DO; Dr. Janet Ramos DO ~ Food Cashier: Signed [facility]07-10-2025 Consult note Author Hank Dent [facility] Note Date/Time March 07, 2025 8:37 am [facility] Medical Records Department [address] [facility] [place] [place] [address] Pre-Anesthesia Evaluation 03/07/25 0828 MR#: [id number] Acct: [id number] Name: WINTER JOY Rep #:[id number] : 1955 70 From: Hank Dent MD PCP: Dr. Janet Ramos DO Status:REG SDC Y Race: C Location: [place] [address] ASA Classification* ASA Classification ASA Classification: 3 [...] Procedure(s): COLONOSCOPY Anesthesia History Anesthesia History - back tender paper machine: Anesthesia History - back tender paper machine Hx Hospitalization No 03/06/25 12:04 Any Problems [...] sips of water?: Yes PONV PONV - back tender paper machine: PONV - back tender paper machine Female Yes 03/06/25 12:04 HX of Motion [...] 03/07/25 08:10 Respiratory Assessment Respiratory Assessment - back tender paper machine: Respiratory Tract Infection Hx - back tender paper machine Hx Respiratory Tract Infection No 03/06/25 12:04 STOP Sleep Apnea STOP Sleep Apnea - back tender paper machine: STOP Sleep Apnea - back tender paper machine Hx Hypertension Yes: CONTROLLED WITH MED 03/06/25 [...] Tobacco Use History Tobacco Use History - back tender paper machine: Tobacco Use History - back tender paper machine Tobacco Use Smoking Status Former smoker 03/06/25 12:04 Hx Tobacco Use No 03/06/25 12:04 Years Smoking Packs Smoked per Day Smoking Cessation Date was No - quit smoking greater 03/06/25 12:04 within the last 15 years than 15 years ago Hx Smoking Cessation Date 04/05/83 03/06/25 12:04 Hx Smoking Cessation Counseling Hematologic Medial History Hematologic Hx - back tender paper machine: Hematologic Medical Hx - oxygen tank filler Hx of Blood Transfusion Yes 03/06/25 12:04 [...] confused, unrespo /Reproduction History /Reproductive History - back tender paper machine: /Reproductive Hx- back tender paper machine Hx Now No 03/06/25 12:04 Gestational Age [...] Resp clear to auscultation bilaterally 03/07/25 0837 <Electronically signed by Hank quezada MD> Date _ Hank Dent MD Cosigner Signature: Date CC: ~ Signed [facility] Work Phone: 1(313) 153-863007-10-2025 Consult note [facility] Medical Records Department [address] [place] [address] Anesthesia Postop Eval I 03/07/2557 MR#: [id number] Acct: [id number] Name: WINTER JOY Rep #:[id number] : 1955 70 From: Jayy Torres PCP: Dr. Janet Ramos, DO Status:REG SDC Y Race: C Location: [place] [address] Anesthesia: Postop Eval I Current Vital Signs [...] Jayy Davenport Signature: Date CC: ~ Signed [facility]07-10-2025 Procedure note [facility] Medical Records Department [address] [place] [address] Colonoscopy Report MR#: [id number] Acct: [id number] Name: WINTER JOY Rep #:[id number] : 1955 70 From: Tato Posey DO PCP: Dr. Janet Ramos, DO Status:REG SDC Patient Name: Winter Joy Procedure Date: 03/07/2025 9:11 AM Date of : 1955 Age: 70 Procedure: Colonoscopy Indications: Iron deficiency anemia Providers: Tato Posey DO Referring MD: Janet Ramos Medicines: Monitored Anesthesia Care Patient Profile: This [...] for surveillance. Procedure Code(s): --- Professional --- 91929, Colonoscopy, flexible; diagnostic, including collection of specimen(s) by brushing or washing, when performed (separate procedure) CPT copyright 2021 [employer]. All rights reserved. The codes documented in this report are preliminary and upon financial report service sales agent review may be revised to meet current compliance requirements. Tato Posey DO 03/07/2025 9:58:20 AM This report has been signed electronically. Number of Addenda: 0 Note Initiated On: 03/07/2025 9:11 AM 03/07/25957 Date _ Tato Posey DO Cosigner Signature: Date (if indicated) CC: Dr. Janet Ramos DO; Tato Posey DO ~ Date Dictated: 03/07/25910 Date Transcribed: Food Cashier: RF Signed [facility]07-10-2025 Procedure note [facility] Medical Records Department [address] [place] [address] Operative Report - CC Letter MR#: [id number] Acct: [id number] Name: WINTER JOY Rep #:[id number] : 1955 70 From: Tato Posey DO PCP: Dr. Janet Ramos DO Status:REG [facility] 03/07/2025 Janet Ramos [address] [facility] [address] [place] [address] [place] [address] Re : Colonoscopy procedure for Winter Fernandoaleksandra Dear Dr. Ramos This procedure was performed on February. My impressions and recommendations are as follows: [...] AM This report has been signed electronically. 03/07/2558 Date _ Tato Posey DO Cosigner Signature: Date (if indicated) CC: Dr. 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 March 07, 2025 7:37am Iron deficiency anemia resolved Ju ly 2024 7:37am Iron deficiency anemia resolved Ju ly 2024 1:24pm Constipation acute March 27, 2 025 10:28am Iron deficiency anemia resolved Oc tober 2024 12:16pm Osteoarthritis of left knee acute June 24, 2025 10:43am [facility] Work Phone: 1(350) 893-774507-10-2025 History and physical note [facility] Medical Records Department [address] [place] [address] History & Physical Exam 03/07/25904 MR#: [id number] Acct: [id number] Name: WINTER JOY Rep #:[id number] : 1955 70 From: Tato Friend DO PCP: Dr. Janet Ramos, DO Status:REG [facility] Location: [place] [address] HPI - General General Date of Admission: [...] continues to take Hydrocodone 1-2 a day [facility] Medical History Normal Holter exam PTSD [...] Patient Instructions: Continue Amitiza twice a day Utcurywguml-4-ifl bowel prep (Suflave-sample and GoLytely) Complete labs today Continue ferrous sulfate daily Follow-up in office post procedure 03/07/25 0910 Cosigner Signature (if applicable): CC: Dr. Janet Ramos, DO; Tato Friend, DO~ Signed [facility]07-10-2025 [facility]07-10-2025 Consult note [facility] Medical Records Department [address] [place] [address] Pre-Anesthesia Evaluation 03/07/25 0828 MR#: [id number] Acct: [id number] Name: WINTER JOY Rep #:[id number] : 1955 70 From: Hank Dent MD PCP: Dr. Janet Ramos, DO Status:REG SDC Y Race: C Location: [place] [address] ASA Classification* ASA Classification ASA Classification: 3 [...] Procedure(s): COLONOSCOPY Anesthesia History Anesthesia History - back tender paper machine: Anesthesia History - back tender paper machine Hx Hospitalization No 03/06/25 12:04 Any Problems [...] sips of water?: Yes PONV PONV - back tender paper machine: PONV - back tender paper machine Female Yes 03/06/25 12:04 HX of Motion [...] 03/07/25 08:10 Respiratory Assessment Respiratory Assessment - back tender paper machine: Respiratory Tract Infection Hx - back tender paper machine Hx Respiratory Tract Infection No 03/06/25 12:04 STOP Sleep Apnea STOP Sleep Apnea - back tender paper machine: STOP Sleep Apnea - back tender paper machine Hx Hypertension Yes: CONTROLLED WITH MED 03/06/25 [...] Tobacco Use History Tobacco Use History - back tender paper machine: Tobacco Use History - back tender paper machine Tobacco Use Smoking Status Former smoker 03/06/25 12:04 Hx Tobacco Use No 03/06/25 12:04 Years Smoking Packs Smoked per Day Smoking Cessation Date was No - quit smoking greater 03/06/25 12:04 within the last 15 years than 15 years ago Hx Smoking Cessation Date 04/05/83 03/06/25 12:04 Hx Smoking Cessation Counseling Hematologic Medial History Hematologic Hx - back tender paper machine: Hematologic Medical Hx - oxygen tank filler Hx of Blood Transfusion Yes 03/06/25 12:04 [...] confused, unrespo /Reproduction History /Reproductive History - back tender paper machine: /Reproductive Hx- back tender paper machine Hx Now No 03/06/25 12:04 Gestational Age [...] MD Cosigner Signature: Date CC: ~ Signed [facility]05-28-2025 Evaluation note* Diagnosis Onset Date Resolution Status Admit Date Iron deficiency anemia chronic Ma y 2024 9:10am 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 Attn Domenica at [phone] so she can get scheduled with hematology. Records faxed as requested. [facility]05-02-2025 Miscellaneous Notes* Telephone Encounter - Dodie Rubalcava MA - 12/28/2024 9:44 AM EDT Patient called in asking for records of visit and labs to be faxed to [facility] Attn Domenica at [phone] so she can get scheduled with hematology. Records faxed as requested. * Telephone Encounter - Verenice Moise RN - 12/27/2024 4:56 PM EDT Patient states that she does not see a life underwriter but she states that she has been getting her Hemoglobin monitored by Dr. Deirdre RICKETTS at [place] dropped from 11 to 8.2. Has appointment on 01/03/25 Due to transportation patient plans to see hematology at [facility]. Patient agrees with switching Vitamin D3 to 1000u Daily. Verenice Moise RN * Telephone Encounter - Isabel Ceron PA-C - 12/27/2024 2:14 PM EDT Please call patient. Inflammation markers are elevated, mildly more than previously. Also Her Blood counts were abnormal compared to previously. Does she see a life underwriter? Sjogren's syndrome can increase her risk of certain blood disorders and so I aftab her to see a life underwriter to look at these results further to see if that is a cause of her symptoms Referral has been placed, or she can go to [facility] if she prefers Also her Vitamin D is upper limit of normal. I see she is currently on the high dose Vitmain D every other week. She may want to consider stopping this and starting daily over the counter Vitamin D3 1000 international unit(s) Isabel Ceron PA-C documented [facility] this [facility]05-[facility]25 Telephone encounter Note * Telephone Encounter - Verenice Moise RN - 12/27/2024 4:56 PM EDT Patient states that she does not see a life underwriter but she states that she has been getting her Hemoglobin monitored by Dr. Deirdre RICKETTS at [place] dropped from 11 to 8.2. Has appointment on 01/03/25 Due to transportation patient plans to see hematology at [facility]. Patient agrees with switching Vitamin D3 to 1000u Daily. Verenice Moise RN [facility]05-01-2025 Telephone encounter Note* Telephone Encounter - Isabel Ceron PA-C - 12/27/2024 2:14 PM EDT Please call patient. Inflammation markers are elevated, mildly more than previously. Also Her Blood counts were abnormal compared to previously. Does she see a life underwriter? Sjogren's syndrome can increase her risk of certain blood disorders and so I aftab her to see a life underwriter to look at these results further to see if that is a cause of her symptoms Referral has been placed, or she can go to [facility] if she prefers Also her Vitamin D is upper limit of normal. I see she is currently on the high dose Vitmain D every other week. She may want to consider stopping this and starting daily over the counter Vitamin D3 1000 international unit(s) Isabel Ceron PA-C [facility]04-30-2025 NoteHNO ID: [id number] Author: ISABEL CERON PA-C Service: ? Author Type: Physician Wildlife Removal Specialist Type: Progress Notes Filed: 01/02/2025 16:18 Note Text: Rheumatology CONSULTATION Date of Service: 12/26/2024 Patient: Winter Joy Medical Record: [id number] Primary Care Physician: Janet Ramos DO Last Rheumatology visit: 04/22/2023 (with Génesis Ray) Recording using Restor[employer] software for draft documentation of the visit was discussed with the patient/authorized computer help desk representative; all questions welcomed and answered. 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 She was evaluated by an locator specialist who confirmed no fractures or tears, [...] Hypertensive heart and k (more content not included)...[facility]04-30-2025 History of Present illness Narrative* Isabel Ceron PA-C - 12/26/2024 11:14 AM EDT Images from the original note were not included. Rheumatology CONSULTATION Date of Service: 12/26/2024 Patient: Winter Joy Medical Record: [id number] Primary Care Physician: Janet Ramos DO Last Rheumatology visit: 04/22/2023 (with Génesis Carlton) Recording using Restorius software for draft documentation of the visit was discussed with the patient/authorized computer help desk representative; all questions welcomed and answered. 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 She was evaluated by an locator specialist who confirmed no fractures or tears, [...] OR EXPOSED ROOT (ELEVATION AND/OR FORCEPS REMOVAL) 2006 LAPAROSCOPY SURG CHOLECYSTECTOMY Cholecystectomy, lap NEUROPLASTY &/TRANSPOS MEDIAN NRV CARPAL TUNNE Carpal tunnel decomp PAST SURGICAL HISTORY OF eye surgery PAST SURGICAL HISTORY OF BLADDER TACKING PAST SURGICAL HISTORY OF 12/2009 left hallux exostectomy TOTAL ABDOMINAL HYSTERECT W/WO RMVL TUBE OVARY Hysterectomy, LOAN Family History FAMILY HISTORY Problem Relation Age of Onset Heart Mother VA Coronary Artery Disease Maternal Grandmother Heart Paternal [...] 22 - 30 mmol/L 25 21 26 Glucose 74 - 99 mg/dL 80 [...] <12 Sm Antibody <1.0 AI <0.2 Ribosomal SECURITY LEAD <1.0 AI <0.2 Chromatin Antibody <1.0 AI <0.2 SSA Antibody <1.0 AI >8.0 SSB Antibody <1.0 AI <0.2 SECURITY LEAD Antibody <1.0 AI <0.2 Scleroderma Ab, IgG [...] result) Impression: IMPRESSION: No acute radiographic abnormality. Food Cashier: CHAYITO Transcribe Date/Time: May 18 2016 12:50P... [...] Full ROM in flexion and extension. Full mercury cell cleaner strength. No swelling or synovitis along the [...] # Sjogren's syndrome, with unspecified organ involvement (HCC) (M35.00) # Dry mouth (R68.2) Diagnosed with [...] injections. - Advised to maintain communication with locator specialist if symptoms do not improve. - [...] current nerve function. - Continue follow-up with sandblaster paint sprayer. Plan As Explained to Patient via After [...] which included preparing to see the patient, ohil-he-oasq patient care, completing clinical documentation, obtaining and/or reviewing separately obtained history, performing a medically appropriate examination, and counseling and educating the patient/family/caregiver. Isabel Ceron PA-C Rheumatology Date: December 26, 2024 Time: 1:31 PM documented in this encounterOhiohealth04-23-2025 Evaluation note* Diagnosis Onset Date Resolution Status [...] deficiency anemia chronic Ju ly 2024 1:24pm [facility] Work Phone: 1(287) 955-519104-23-2025 Evaluation note* Diagnosis Onset Date Resolution Status [...] ly 2024 1:24pm Constipation acute March 27, 025 10:28am [facility] Work Phone: 1(584) 506-115703-26-2025 Consult note [facility] Medical Records Department [address] [place] [address] Anesthesia Postop Eval II 11/21/24 1514 MR#: [id number] Acct: [id number] Name: WINTER JOY Rep #:[id number] : 1955 69 From: Roby Thomas MD PCP: Dr. Janet Ramos, DO Status:REG SDC Y Race: C Location: [address] Anesthesia Postop Eval I Sum Postop Eval [...] 1514 > Date _ Roby Thomas MD Cosigner Signature: Date CC: ~ Signed [facility]03-26-2025 Consult note Author Roby [facility] Note Date/Time November 21, 2024 12: 59pm [facility] Medical Records Department [address] [place] [address] Pre-Anesthesia Evaluation 11/21/24 1258 MR#: [id number] Acct: [id number] Name: WINTER JOY Rep #:[id number] : 1955 69 From: Roby Thomas MD PCP: Dr. Janet Ramos, DO Status:REG SDC Y Race: C Location: [facility] ASA Classification* ASA Classification ASA Classification: 2 [...] 14:10/25/24 Plt Count 395 K/mm3 (150-450) 10/25/24 14:10/25/24 CHEMISTRY Potassium 4.2 mmol/L (3.3-5.1) 10/25/24 14:10/25/24 [...] EGD, COLONOSCOPY Anesthesia History Anesthesia History - back tender paper machine: Anesthesia History - back tender paper machine Hx Hospitalization No 11/16/24 10:46 Any Problems [...] take am of surgery PONV PONV - back tender paper machine: PONV - back tender paper machine Female Yes 11/16/24 10:46 HX of Motion [...] 10/25/24 07:48 Respiratory Assessment Respiratory Assessment - back tender paper machine: Respiratory Tract Infection Hx - back tender paper machine Hx Respiratory Tract Infection No 11/16/24 10:46 STOP Sleep Apnea STOP Sleep Apnea - back tender paper machine: STOP Sleep Apnea - back tender paper machine Hx Hypertension Yes: CONTROLLED WITH MED 11/16/24 [...] Tobacco Use History Tobacco Use History - back tender paper machine: Tobacco Use History - back tender paper machine Tobacco Use Smoking Status Former smoker 11/16/24 10:46 Hx Tobacco Use No 11/16/24 10:46 Years Smoking Packs Smoked per Day Smoking Cessation Date was No - quit smoking greater 11/16/24 10:46 within the last 15 years than 15 years ago Hx Smoking Cessation Date 04/05/83 11/16/24 10:46 Hx Smoking Cessation Counseling Hematologic Medial History Hematologic Hx - back tender paper machine: Hematologic Medical Hx - oxygen tank filler Hx of Blood Transfusion Yes 11/16/24 10:46 Hx of Transfusion in last 3 No 11/16/24 10:46 Months Date of Last Transfusion (if within last 3 months) Ever experience any problems No 11/16/24 10:46 with transfusion(s)? Specify any problems Hx of Preganancy in last 3 No 11/16/24 10:46 Months Nurse Filling Out Transfusion EHPECK 11/16/24 10:46 & Questions: Date: 11/16/24 11/16/24 10:46 Time: 10:54 11/16/24 10:46 Patient unable to answer at this time (ie. confused, unrespo /Reproduction History /Reproductive History - back tender paper machine: /Reproductive Hx- back tender paper machine Hx Now No 11/16/24 10:46 Gestational Age [...] MD Cosigner Signature: Date CC: ~ Signed [facility] Work Phone: 1(371) 486-957903-26-2025 Procedure note [facility] Medical Records Department [facility] [place] [address] Colonoscopy Report MR#: [id number] Acct: [id number] Name: WINTER JOY Rep #:[id number] : 1955 69 From: Tato Posey DO PCP: Dr. Janet Ramos DO Status:REG [facility] Patient Name: Winter Joy Procedure Date: 11/21/2024 2:23 PM Date of : 1955 Age: 69 Procedure: Colonoscopy Indications: Iron deficiency anemia Providers: Tato Posey DO Referring MD: Janet Ramos Medicines: Monitored Anesthesia Care Patient Profile: This [...] Repeat colonoscopy. Procedure Code(s): --- Professional --- 14867, Colonoscopy, flexible; diagnostic, including collection of specimen(s) by brushing or washing, when performed (separate procedure) CPT copyright 2021 [employer]. All rights reserved. The codes documented in this report are preliminary and upon financial report service sales agent review may be revised to meet current compliance requirements. Tato Posey DO 11/21/2024 2:54:03 PM This report has been signed electronically. Number of Addenda: 0 Note Initiated On: 11/21/2024 2:23 PM 11/21/24 1454 Date _ Tato Posey DO Cosigner Signature: Date (if indicated) CC: Dr. Janet Ramos DO; Tato Posey DO ~ Date Dictated: 11/21/241422 Date Transcribed: Food Cashier: RF Signed [facility]03-26-2025 Procedure note [facility] Medical Records Department [address] [place] [address] Operative Report - CC Letter MR#: [id number] Acct: [id number] Name: WINTER JOY Rep #:[id number] : 1955 69 From: Tato Posey DO PCP: Dr. Janet Ramos DO Status:REG SDC 11/21/2024 Janet Ramos [address] [place] [address] [place] [address] Re : Colonoscopy procedure for Winter Joy Dear Dr. Ramos This procedure was performed on Thursday, November [...] (if indicated) CC: KRISTINE Mcclain; Dr. Janet Ramos DO; Tato Posey DO ~ Date Dictated: 03/26/25 1423 Date Transcribed: Food Cashier: RF Signed [facility]03-26-2025 Consult note [facility] Medical Records Department [address] [place] [address] Anesthesia Postop Eval I 11/21/24 1452 MR#: [id number] Acct: [id number] Name: WINTER JOY Rep #:[id number] : 1955 69 From: Jayy Torres PCP: Dr. Janet Ramos, DO Status:REG SDC Y Race: C Location: [place] [address] Anesthesia: Postop Eval I Current Vital Signs [...] Jayy Davenport Signature: Date CC: ~ Signed [facility]03-26-2025 Procedure note [facility] Medical Records Department [address] [place] [address] EGD Report MR#: [id number] Acct: [id number] Name: WINTER JOY Rep #:[id number] : 1955 69 From: Tato Posey DO PCP: Dr. Janet Ramos, DO Status:REG SDC Patient Name: Winter oJy Procedure Date: 11/21/2024 2:08 PM Date of : 1955 Age: 69 Procedure: Upper GI endoscopy Indications: Epigastric abdominal pain, Suspected upper gastrointestinal bleeding in patient with unexplained iron deficiency anemia Providers: Tato Posey DO Referring MD: Janet Ramos Medicines: Monitored Anesthesia Care Patient Profile: This [...] pathology results. Procedure Code(s): --- Professional --- 92831, Small intestinal endoscopy, enteroscopy beyond second portion of duodenum, not including ileum; with biopsy, single or multiple CPT copyright 2021 [employer]. All rights reserved. The codes documented in this report are preliminary and upon financial report service sales agent review may be revised to meet current compliance requirements. Tato Posey DO 11/21/2024 2:51:09 PM This report has been signed electronically. Number of Addenda: 0 Note Initiated On: 11/21/2024 2:08 PM 11/21/24 1451 Date _ Tato Posey DO Cosigner Signature: Date (if indicated) CC: Dr. Janet Ramos DO; Tato Posey DO ~ Date Dictated: 11/21/24 1408 Date Transcribed: Food Cashier: RF Signed [facility]03-26-2025 Procedure note [facility] Medical Records Department [address] [place] [address] Operative Report - CC Letter MR#: [id number] Acct: [id number] Name: WINTER JOY Rep #:[id number] : 1955 69 From: Tato Posey DO PCP: Dr. Janet Ramos DO Status:REG [facility] 11/21/2024 Janet Ramos [address] [place] [address] [place] [address] Re : Upper GI endoscopy procedure for Winter Fernandoaleksandra Dear Dr. Ramos This procedure was performed on Thursday, November [...] (if indicated) CC: KRISTINE Mcclain; Dr. Janet Ramos, ; Tato Posey DO ~ Date Dictated: 11/21/24 1408 Date Transcribed: Food Cashier: ZOHRA Signed [facility]03-26-2025 Evaluation note* Diagnosis Onset Date Resolution Status Admit Date Anemia acute November 21 12:21pm Encounter for screening for malignant neoplasm of colon acute [place] 2024 12:21pm Right knee sprain acute November 282024 1:31pm S/P total hip arthroplasty acute December 19, 2024 1:31pm Anemia acute January 03, 2025 9:36am Constipation acute January 03 9:36am Iron deficiency anemia chronic Ma y 2024 9:10am 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 December 282024 9:10am Iron deficiency anemia chronic Ju 2024 7:37am 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 March 07, 2025 7:37am [facility] Work Phone: 1(545) 513-630303-26-2025 Evaluation note* Diagnosis Onset Date Resolution Status Admit Date Anemia acute November 21 12:21pm Encounter for screening for malignant neoplasm of colon acute [place] muñoz 2024 12:21pm Right knee sprain acute November [...] deficiency anemia chronic Ju ly 2024 1:24pm [facility] [employer] Work Phone: 1(825) 341-420603-26-2025 History and physical note [facility] Medical Records Department [address] [place] [address] History & Physical Exam 11/21/24 1332 MR#: [id number] Acct: [id number] Name: WINTER JOY Rep #:[id number] : 1955 69 From: Tato Friend DO PCP: Dr. Janet Ramos DO Status:[facility] Location: [place] [address] HPI - General General Date of Admission: 11/21/24 Date of Service: 11/21/24 Chief Complaint: surveillance colonoscopy HPI Narrative WINTER JOY, is a 69 F who presents today for colonoscopy because of history of adenomatous polyps. OV 08/16/2024 w/ Karen, IP ARCHITECT 69y/o female presents for consultation with complaints [...] Linzess Discontinue Miralax Schedule [facility]orectal Manometry at [facility] Start Amitiza 24mcg twice daily Continue 5 prunes daily with good water intake (at least 64 ounces a day) Schedule Fibroscan at [facility] Schedule Colonoscopy - You may be a candidate to enroll in colon cancer researchstudy with [facility] Call to schedule Anorectal Manometry Dr. Pelaez [place] [facility] Dr. Leandro Pelaez [address] [place] [address] P: [phone] F: [phone] --- LABS 08/16/2024 HGB 9.8, CMP unremarkable 04/24/2024 HGB 10.4 11/25/2023 HGB 10.9 12/02/2022 HGB 11.4 HAV Total Ab: 08/16/2024 negative HBVsA08/16/2024 negative HBVsAb: 08/16/2024 negative HBV Core Ab Total: 08/16/2024 negative HCV Ab: 08/16/2024 negative ELF: 08/16/2024 (HIGH) 9.97 - high probability of advanced fibrosis or cirrhosis FibroScan: was referred [facility] - states it was scheduled for today and our office told her to cancel this ARM - reports she had this completed this month with Dr. Pelaez COLON 08/30/2024 - tubular adenoma ---REPEAT COLON IN [...] support group to help with weight loss [facility] Medical History Cardiology follow-up encounter History [...] EGD for w/u of anemia -Schedule FibroScan [facility] is located at: [address] [place] [address], [address] [place] [address] -Recommend vaccination for HAV and HBV - [...] please call our office for assistance at [phone]. APPROVED CLEAR LIQUIDS ? No RED or PURPLE -Gatorade or PowerAde -Clear broth or bouillon ? chicken or beef -Coffee or Tea (no milk or non-dairy creamer) -Carbonated and Non-carbonated beverages -Mickey-Aid or Crystal Light -Strained Fruit Juices -Jell-O, Popsicles or Albanian Ice 11/21/24 1336 Cosigner Signature (if applicable): CC: Dr. Janet Ramos, DO; Tato Friend, DO~ Signed [facility]03-26-2025 [facility]03-26-2025 Consult note [facility] Medical Records Department [address] [place] [address] Pre-Anesthesia Evaluation 11/21/24 1258 MR#: [id number] Acct: [id number] Name: WINTER JOY Rep #:[id number] : 1955 69 From: Roby Thomas MD PCP: Dr. Janet Ramos, Status:REG SDC Y Race: C Location: [place] [address] ASA Classification* ASA Classification ASA Classification: 2 [...] 14:10/25/24 Plt Count 395 K/mm3 (150-450) 10/25/24 14:10/25/24 CHEMISTRY Potassium 4.2 mmol/L (3.3-5.1) 10/25/24 14:10/25/24 [...] EGD, COLONOSCOPY Anesthesia History Anesthesia History - back tender paper machine: Anesthesia History - back tender paper machine Hx Hospitalization No 11/16/24 10:46 Any Problems [...] take am of surgery PONV PONV - back tender paper machine: PONV - back tender paper machine Female Yes 11/16/24 10:46 HX of Motion [...] 10/25/24 07:48 Respiratory Assessment Respiratory Assessment - back tender paper machine: Respiratory Tract Infection Hx - back tender paper machine Hx Respiratory Tract Infection No 11/16/24 10:46 STOP Sleep Apnea STOP Sleep Apnea - back tender paper machine: STOP Sleep Apnea - back tender paper machine Hx Hypertension Yes: CONTROLLED WITH MED 11/16/24 [...] Tobacco Use History Tobacco Use History - back tender paper machine: Tobacco Use History - back tender paper machine Tobacco Use Smoking Status Former smoker 11/16/24 10:46 Hx Tobacco Use No 11/16/24 10:46 Years Smoking Packs Smoked per Day Smoking Cessation Date was No - quit smoking greater 11/16/24 10:46 within the last 15 years than 15 years ago Hx Smoking Cessation Date 04/05/83 11/16/24 10:46 Hx Smoking Cessation Counseling Hematologic Medial History Hematologic Hx - back tender paper machine: Hematologic Medical Hx - oxygen tank filler Hx of Blood Transfusion Yes 11/16/24 10:46 Hx of Transfusion in last 3 No 11/16/24 10:46 Months Date of Last Transfusion (if within last 3 months) Ever experience any problems No 11/16/24 10:46 with transfusion(s)? Specify any problems Hx of Preganancy in last 3 No 11/16/24 10:46 Months Nurse Filling Out Transfusion [facility] 11/16/24 10:46 & Questions: Date: 11/16/24 11/16/24 10:46 Time: 10:54 11/16/24 10:46 Patient unable to answer at this time (ie. confused, unrespo /Reproduction History /Reproductive History - back tender paper machine: /Reproductive Hx- back tender paper machine Hx Now No 11/16/24 10:46 Gestational Age (in weeks): EDC: Hx Hx Para [facility] Medical History Cardiology follow-up encounter History [...] documented. 11/21/24 1259 > Date _ Roby Thomas MD Cosigner Signature: Date CC: ~ Signed [facility]03-07-2025 Telephone encounter Note* Telephone Encounter - Jc Puri - 11/02/2024 1:37 PM EST Patient called about lab work, has not seen Dr. Carlton since April 2023. Offered in person and virtual appointment and she denied both. Scheduled her with Isabel Ceron since she lives in [place]. [facility]03-07-2025 Miscellaneous Notes* Telephone Encounter - Jc Puri - 11/02/2024 1:37 PM EST Patient called about lab work, has not seen Dr. Carlton since April 2023. Offered in person and virtual appointment and she denied both. Scheduled her with Isabel Ceron since she lives in [place]. * Telephone Encounter - Shanice Gruber - 10/16/2024 12:42 PM EST Pt would like to go 10/19/23 to get blood work done, Pt ph [phone] * Telephone Encounter - Shancie Gruber - 10/10/2024 12:09 PM EST Pt requesting lab orders, Pt ph [phone] documented in this encounterOhiohealth02-27-2025 Evaluation note* Diagnosis Onset Date Resolution Status Admit Date Anemia chronic October 25, 2024 1:12pm Hypertension chronic September 1:12pm Obesity chronic October 25, 2024 1:12pm TROY (obstructive sleep apnea) chroni c October 25, 2024 1:12pm Rheumatoid arthritis chronic Febr ua2024 1:12pm Anemia acute November 21 12:21pm Encounter for screening for malignant neoplasm of colon acute [facility] 2024 12:21pm Right knee sprain acute November 282024 1:31pm S/P total hip arthroplasty acute December 19, 2024 1:31pm Anemia acute January 03, 2025 9:36am Constipation acute January 03 9:36am Iron deficiency anemia chronic 2024 9:10am 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 December 282024 9:10am [facility] Work Phone: [phone]) [phone] Telephone encounter Note* Telephone Encounter - Shanice Gruber - 10/16/2024 12:42 PM EST Pt would like to go 10/19/23 to get blood work done, Pt ph [phone] [facility]02-12-2025 Telephone encounter Note* Telephone Encounter - Shanice Gruber - 10/10/2024 12:09 PM EST Pt requesting lab orders, Pt ph [phone] [facility]01-22-2025 Evaluation note* Diagnosis Onset Date Resolution Status [...] neoplasm of colon acute [facility] 2024 12:21pm Right knee sprain acute November 282024 1:31pm S/P total hip arthroplasty acute December 19, 2024 1:31pm Anemia acute January 03, 2025 9:36am Constipation acute January 03 9:36am [facility] Work Phone: 1(208) 349-976901-02-2025 [facility]12-19-2024 Evaluation note* Diagnosis Onset Date [...] 2024 1:12pm Rheumatoid arthritis chronic 2024 1:12pm [facility] Work Phone: 1([phone]) 488-372412-19-2024 Evaluation note* Diagnosis Onset Date Resolution Status Admit Date Constipation acute July 10:02am RLQ abdominal pain acute Dece er 2023 10:02am Steatosis, liver acute August [...] screening for malignant neoplasm of colon acute [facility] 2024 12:21pm [facility] Work Phone: 1(943) 758-559012-08-2023 Procedure [facility] 07-28-2023 Procedure [facility]08-14-2023 Miscellaneous Notes* Telephone Encounter - Carolyne [...] Verma - 03/24/2023 12:29 PM EDT Winter Joy is calling Génesis Carlton [...] calling: self Call patient at: at home [phone] (home) [phone] (cell) Was an appointment scheduled: No Closing statement: Symptom Call: Thank you for calling [facility], your call is very important. A nurse will call in approximately 2-4 hours during business hours. If this is an emergency, please contact 911. Armen Verma documented in this encounterOhiohealth08-11-2023 Miscellaneous Notes* Telephone Encounter - Sheyla Ragsdale - 04/08/2023 10:16 AM EDT Duplicate, please see te from 03/24/2023. Sheyla Ragsdale * Telephone Encounter - Christine Garza - 04/08/2023 9:12 AM EDT Winter Bang Korinelia is calling Génesis Carlton MD today Orders Patient has been identified by name and birthdate. Patient calling asking that orders for lab work be placed so she can have labs done before appointment. Duration of symptoms: N/A Person calling: self Call patient at: at home [phone] (home) [phone] (cell) Was an appointment scheduled: No Closing statement: Results or non-symptom based questions: Thank you for calling [facility], your call will be returned within the next business day. Christine Garza documented in this encounterOhiohealth08-26-2022 Instructions* Patient Instructions* Génesis Carlton MD - 04/23/2022 12:08 PM EDT Diclofenac GEL take 2-3 times daily. 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 Thomas PTSD (post-traumatic stress disorder) seeing counselor Sjogren syndrome ([facility]) Unspecified asthma(493.90) Asthma Unspecified SOCIAL HISTORY: Social [...] (Patient not taking: Reported on 11/21/2020) Ipratropium [place] (ATROVENT) 0.03 % nasal spray triamcinolone acetonide [...] Units 04/21/2016 Sm Antibody <1.0 AI <0.2 SECURITY LEAD Antibody <1.0 AI <0.2 SSA Antibody <1.0 AI >8.0 (H) SSB Antibody <1.0 AI <0.2 Centromere Ab <1.0 AI <0.2 Scleroderma Ab, IgG <1.0 AI <0.2 Natalya 1 Antibody <1.0 AI <0.2 Ribosomal SECURITY LEAD <1.0 AI <0.2 Chromatin Antibody <1.0 AI [...] Speckled DNA ANTIBODY W/CONFIRMATION <30 IU/mL <12 SECURITY LEAD ANTIBODY <1.0 AI <0.2 SSA ANTIBODY <1.0 AI >8.0(H) SSB ANTIBODY <1.0 AI <0.2 NATALYA-1 ANTIBODY, IGG <1.0 AI <0.2 RIBOSOMAL SECURITY LEAD <1.0 AI <0.2 SM ANTIBODY <1.0 AI [...] year Génesis Carlton MD Rheumatology Staff Pager [phone] documented in this encounterOhiohealth08-09-2022 Miscellaneous Notes* Telephone Encounter - Carolyne Tinajero RN - 04/06/2022 8:06 AM EDT Patient notified lab orders placed. Carolyne Tinajero RN * Telephone Encounter - Génesis Carlton MD - 04/05/2022 5:48 PM EDT Orders signed. Génesis Carlton MD * Telephone Encounter - Vianney eRndon - 04/02/2022 9:45 AM EDT Patient called back and would like to be notified when orders have been signed so that she can schedule an appointment to have labs drawn. Patient has appointment with Dr Carlton 04/23/2022. Vianney Noguera Pss * Telephone Encounter - Carolyne Tinajero RN - 04/02/2022 9:23 AM EDT Lab orders pended to Dr. Carlton for Signature. Carolyne Tinajero RN * Telephone Encounter - Christine Garza [...] calling: self Call patient at: on cell [phone] (home) [phone] (cell) Was an appointment scheduled: No Closing statement: Results or non-symptom based questions: Thank you for calling [facility], your call will be returned within the next business day. Christine Garza documented in this encounterOhiohealth04-26-2022 Miscellaneous Notes* Telephone Encounter - Carolyne Tinajero [...] notify pt when medication is sent at [phone]. * Telephone Encounter - Carolyne Tinajero RN [...] message below, patient is willing to try. [place] pharmacy confirmed with the patient. Carolyne Tinajero RN December 18, 2021 9:45 AM * Telephone Encounter - Carolyne Tinajero RN - 12/18/2021 9:32 AM EDT Images from the original note were not included. Message left for Winter Joy, asking who letter is for and what needs to be addressed per message below. SCARLETT Mittal MD [facility] [employer] [place] 2 days ago fine, I guess. why [...] Garza - 12/14/2021 9:53 AM EDT Winter M Benita is calling Génesis Carlton MD today Patient [...] calling: self Call patient at: at home [phone] (home) [phone] (cell) Was an appointment scheduled: No Closing statement: Symptom Call: Thank you for calling [facility], your call is very important. A nurse will call in approximately 2-4 hours during business hours. If this is an emergency, please contact 911. Christine Garza documented in this encounterOhiohealthConsult note Author Jayy Torres [facility] Note Date/Time November 21, 2024 2:5 3pm [facility] Medical Records Department [address] [place] [address] Anesthesia Postop Eval I 11/21/24 1452 MR#: [id number] Acct: [id number] Name: WINTER JOY Rep #:[id number] : 1955 69 From: Jayy Torres PCP: Dr. Janet Ramos, DO Status:REG SDC Y Race: C Location: [place] [address] Anesthesia: Postop Eval I Current Vital Signs [...] document: Postop Eval 1 completed: Yes 11/21/24 9253 <Electronically signed by Jayy Torres > Date _ Jayy Torres Cosigner Signature: Date CC: ~ Signed [facility] Work Phone: Consult note Author Roby Thomas [facility] Note Date/Time November 21, 2024 3:2 5pm [facility] Medical Records Department [address] [place] [address] Anesthesia Postop Eval II 11/21/24 1514 MR#: [id number] Acct: [id number] Name: WINTER JOY Rep #:[id number] : 1955 69 From: Roby Thomas MD PCP: Dr. Janet Ramos, DO Status:REG [facility] Y Race: C Location: [place] [address] Anesthesia Postop Eval I Sum Postop Eval [...] 0 nausea: No Vomiting: No 11/21/24 1514 <Electronically signed by Roby Thomas MD > Date _ Roby Duboseignjanie Signature: Date CC: ~ Signed [facility] Work Phone: Consult note Author Jayy Torres [facility] Note Date/Time March 07, 2025 9:58 am [facility] Medical Records Department [address] [place] [address] Anesthesia Postop Eval I 03/07/2557 MR#: [id number] Acct: [id number] Name: WINTER JOY Rep #:[id number] : 1955 70 From: Jayy Torres PCP: Dr. Janet Ramos, DO Status:REG SDC Y Race: C Location: [place] [address] Anesthesia: Postop Eval I Current Vital Signs [...] document: Postop Eval 1 completed: Yes 03/07/2558 <Electronically signed by Jayy Torres > Date _ Jayy Davenport Signature: Date CC: ~ Signed [facility] Work Phone: Evaluation noteNo assessment information available [facility] Work Phone: Evaluation note* Diagnosis Onset Date Resolution Status Stress incontinence acute [facility] Work Phone: Evaluation note* Diagnosis Onset Date Resolution Status Stress incontinence acute TROY (obstructive sleep apnea) acute Bipolar 2 disorder chronic Mild intermittent asthma in adult without complication chronic [facility] Work Phone: Evaluation note* Diagnosis Sjogren's syndrome, with unspecified organ involvement (HCC)- Primary [facility] Diagnosis Sjogren's syndrome, with unspecified organ involvement (HCC)- Primary Dry mouth Disturbance of salivary secretion Primary osteoarthritis of left knee Primary localized osteoarthrosis, lower leg [facility] Diagnosis Sjogren's syndrome, with unspecified organ involvement (HCC)- Primary Dry mouth Disturbance of salivary secretion Primary osteoarthritis of left knee Primary localized osteoarthrosis, lower leg [facility]* Diagnosis Onset Date Resolution Status Osteoarthritis of left knee acute [facility] Work Phone: Evaluation note* Diagnosis Onset Date Resolution Status Osteoarthritis of left knee acute TROY (obstructive sleep apnea) acute Mild intermittent asthma in adult without complication chronic Rheumatoid arthritis chronic [facility] Work Phone: Evaluation note* Diagnosis Onset Date Resolution Status Rheumatoid arthritis chronic Chest pain chronic FAITH (dyspnea on exertion) ch ronic Hypertension chronic Obesity chronic TROY (obstructive sleep apnea) chronic Rheumatoid arthritis chronic [facility] Work Phone: Evaluation note* Diagnosis Onset Date Resolution Status Rheumatoid arthritis chronic Chest pain chronic FAITH (dyspnea on exertion) ch ronic Hypertension chronic Obesity chronic TROY (obstructive sleep apnea) chronic Rheumatoid arthritis chronic Mechanical pain of left knee acute Asthma chronic Obesity chronic TROY (obstructive sleep apnea) chronic Rheumatoid arthritis chronic [facility] Work Phone: Evaluation note* Diagnosis Onset Date Resolution Status Chest pain chronic FAITH (dyspnea on exertion) ch ronic Hypertension chronic Obesity chronic TROY (obstructive sleep apnea) chronic Rheumatoid arthritis chronic Mechanical pain of left knee acute Asthma chronic Obesity chronic TROY (obstructive sleep apnea) chronic Rheumatoid arthritis chronic [facility] Work Phone: Evaluation note* Diagnosis Onset [...] meniscus noneactive Osteoarthritis of left knee noneactive [facility] Work Phone: Evaluation note* Diagnosis Onset [...] DJD (degenerative joint disease) of knee acute [facility] Work Phone: Evaluation note* Diagnosis Abdominal pain- [...] or radiculitis, unspecified [facility]* Diagnosis Abdominal pain- Primary Abdominal pain, unspecified site Weight gain Abnormal weight gain Obesity (BMI 30-39.9) Obesity, unspecified Sjogren's syndrome, with unspecified organ involvement (HCC)- Primary Anemia, unspecified type [facility] Author Tato Friend [facility] Note Date/Time November 21, 2024 1:3 6pm [facility] Medical Records Department [address] [place] [address] History & Physical Exam 11/21/24 1332 MR#: [id number] Acct: [id number] Name: WINTER JOY Rep #:[id number] : 1955 69 From: Tato Friend DO PCP: Dr. Janet Ramos, DO Status:REG [facility] Location: [address] HPI - General General Date of Admission: 11/21/24 Date of Service: 11/21/24 Chief Complaint: surveillance colonoscopy HPI Narrative WINTER JOY, is a 69 F who presents today for colonoscopy because of history of adenomatous polyps. OV 08/16/2024 w/ Karen, IP ARCHITECT 69y/o female presents for consultation with complaints of constipation and RLQ pain. CT A&P with contrast was completed 04/24/2024 revealed liver steatosis. Bennyorts a long history of constipation currently failing [...] Linzess Discontinue Miralax Schedule [facility] at [facility] Start Amitiza 24mcg twice daily Continue 5 prunes daily with good water intake (at least 64 ounces a day) Schedule Fibroscan at [facility] Schedule Colonoscopy - You may be a candidate to enroll in colon cancer researchstudy with [facility] Call to schedule Anorectal Manometry Dr. Pelaez [place] [facility] Dr. Leandro Pelaez [address] [facility] [address] [place] [address] P: [phone] F: [phone] --- LABS 08/16/2024 HGB 9.8, CMP unremarkable 04/24/2024 HGB 10.4 11/25/2023 HGB 10.9 12/02/2022 HGB 11.4 HAV Total Ab: 08/16/2024 negative HBVsA08/16/2024 negative HBVsAb: 08/16/2024 negative HBV Core Ab Total: 08/16/2024 negative HCV Ab: 08/16/2024 negative ELF: 08/16/2024 (HIGH) 9.97 - high probability of advanced fibrosis or cirrhosis FibroScan: was referred to [facility] - states it was scheduled for today [...] support group to help with weight loss [facility] Medical History Cardiology follow-up encounter History [...] EGD for w/u of anemia -Schedule FibroScan [facility] is located at: [address] [place] [address], [address] [place] [id number] -Recommend vaccination for HAV and HBV - [...] please call our office for assistance at [phone]. APPROVED CLEAR LIQUIDS ? No RED or PURPLE -Gatorade or PowerAde -Clear broth or bouillon ? chicken or beef -Coffee or Tea (no milk or non-dairy creamer) -Carbonated and Non-carbonated beverages -Mickey-Aid or Crystal Light -Strained Fruit Juices -Jell-O, Popsicles or Albanian Ice 11/21/24 1336 <Electronically signed by Tato Posey DO> Cosigner Signature (if applicable): CC: Dr. Janet Ramos, ; Tato Posey DO~ Signed [facility] Work Phone: History and physical note Author Tato Posey [facility] Note Date/Time March 07, 2025 9:10 am [facility] Medical Records Department [address] [place] [address] [place] [address] History & Physical Exam 03/07/25 0905 MR#: [id number] Acct: [id number] Name: WINTER JOY Rep #:[id number] : 1955 70 From: Tato Friend DO PCP: Dr. Janet Ramos, DO Status:REG [facility] Location: [place] [address] HPI - General General Date of Admission: [...] 12/03/24 @ 14:46 Clau Mcclain Wrote To Reed,Erin Labs completed 11/21/2024 revealed improvement in HGB [...] continues to take Hydrocodone 1-2 a day [facility] Medical History Normal Holter exam PTSD [...] Patient Instructions: Continue Amitiza twice a day Tfmagtzvnlc-1-sch bowel prep (Suflave-sample and GoLytely) Complete labs today Continue ferrous sulfate daily Follow-up in office post procedure 03/07/25 0910 <Electronically signed by Tato Posey DO> Cosigner Signature (if applicable): CC: Dr. Janet Ramos, ; Tato Posey DO~ Signed [facility] Work Phone: Hospital Discharge instructions Additional Instructions [...] care physician for further outpatient evaluation and management.[facility] Work Phone: Progress note Author John Jang [facility] Note Date/Time June 12, 2025 2 :33pm [facility] [place] [facility] [place] [address] OFFICE VISIT Date of Service: 06/12/25 1356 MR#: [id number] Acct: [id number] Name: WINTER JOY Rep #: [id number] : 1955 From: John Jang MD Age/Sex: 70/F Location: [facility] Status: Signed HPI Subjective Date of Service 06/12/25 Chief Complaint F/u for JULIÁN. History of Present Illness 70-year-old woman with history of Sjogren's syndrome was found to have anemia, and referred to rule out non-Hodgkin's lymphoma. She denies fever, weight loss,night sweats. Was found to have Iron deficiency anemia, EGD on 11/21/2024 was negative. Got IV Iron on 02/06/2025, 02/15/2025, 02/22/2025. Colonoscopy on 03/07/2025 was negative. Comes for follow up. Feels well. [facility] Medical History Urinary incontinence, urge Normal Holter exam PTSD (post-traumatic stress disorder) [...] Rheumatoid arthritis TROY (obstructive sleep apnea) Urinary urgency Urinary frequency PND (post-nasal drip) [...] for screening for malignant neoplasm of colon Surgical History Hx of colonoscopy Hx of cystoscopy History of cardiac catheterization Hx of surgical procedure bladder sling removal History of bilateral carpal tunnel release H/O eye surgery H/O hand surgery History of total right knee replacement History of appendectomy H/O: hysterectomy Hx laparoscopic cholecystectomy Family History Father Cancer Alcoholism Hypertension Mother Heart disease H/O weight disorder Myocardial infarction Hypertension COPD (chronic obstructive pulmonary disease) Skin cancer Sister Hypertension Social History household members: none Smoking Status: Former smoker quit date: 08/29/82 pack-years: 15 second hand exposure: No alcohol intake: never substance use type: does not use Intake Vital Signs 03/20/25 14:43 06/12/25 13:57 Height 5 ft 3 in 5 ft 3 in Weight: 103.022 kg BMI 40.2 BP 134/82 H Blood Pressure Location Lt brachial Position Sitting Respiration 18 Pulse 73 Pulse Source Monitor Temp 98.3 F Temperature Source Temporal Artery Pulse Oximetry (%) 98 Oxygen Delivery Method room air Intake Accompanied by: Self Is patient in pain?: Yes (chronic pain) Pain scale (1-10): 8 Allergies tramadol (From Ultram) Allergy (Intermediate, Verified 06/12/25 14:08) Itching oxycodone (From Percocet) Allergy (Mild, Verified 06/12/25 14:08) Itching cephalexin (From Keflex) Allergy (Verified 06/12/25 14:08) Rash flurazepam (From Dalmane) Allergy (Verified 06/12/25 14:08) Other shellfish derived Allergy (Verified 06/12/25 14:08) RASH divalproex sodium (From Depakote) Adverse Reaction (Intermediate, Verified 06/12/25 14:08) Other - nightmares quetiapine (From Seroquel) Adverse Reaction (Mild, Verified 06/12/25 14:08) Other - shaking, lightheaded and abnormal dreams meloxicam Adverse Reaction (Verified 06/12/25 14:08) Unknown Medications ?Medication ?Instructions ?Recorded ?Confirmed ?Type potassium chloride 20 mEq 20 meq PO BID 10/08/2006/12 History tablet,extended release oxybutynin chloride 10 mg 10 mg PO DAILY 07/31/2105/29 History tablet,extended release 24 hr duloxetine 30 mg capsule,delayed 30 mg PO BID 07/07/23 06/12/25 History release trazodone 150 mg tablet 150 mg PO QHS 09/28/2306/12 History vibegron 75 mg tablet (Gemtesa) 75 mg PO DAILY 4 06/12/25 History ondansetron 4 mg disintegrating 4 mg PO Q8H PRN nausea and vomiting 08/16/24 06/12/25 History tablet pantoprazole 40 mg tablet,delayed 40 mg PO QDAY 06/12/25 History release metoprolol tartrate 25 mg tablet 25 mg PO BID #180 tab s 10/25/24 06/12/25 Rx amlodipine 5 mg tablet 5 mg PO DAILY #30 tabs 11/0206/12/25 Rx ascorbic acid (vitamin C) 500 mg 500 mg PO QDAY 06/12/25 History tablet Held on 03/06/25. Instructions: PT STOPPED WHEN TAKING IRON guaifenesin 1,200 mg tablet, 1,200 mg PO BID 01/23/25 06/12/25 History extended release 12 hr lisinopril 20 mg tablet 20 mg PO BID 01/23/25 History tizanidine 4 mg tablet 4 mg PO BID PRN muscle spast icity 01/23/25 06/12/25 History polyethylene glycol 3350 17 4 g PO ONCE #238 grams 10/2306/12/25 Rx gram/dose oral powder (Miralax) plecanatide 3 mg tablet (Trulance) 3 mg PO QDAY #90 ta bs 03/27/25 06/12/25 Rx nitrofurantoin 100 mg PO BID #14 caps 05/2306/12/25 Rx monohydrate/macrocrystals 100 mg capsule (Macrobid) Have you fallen in the past year?: Yes Central Venous Access Central Venous Access: No Laboratory Tests 03/20/25 06/12/25 13:34 12:31 WBC 7.9 9.7 Hgb 11.3 L 12.4 Hct 37.6 39.6 Plt Count 347 349 Absolute Neuts (auto) 4.8 Absolute Lymphs (auto) 3.92 Sodium 136 Potassium 4.0 Chloride 100 Carbon Dioxide 23.3 BUN 23 H Creatinine 0.72 Glucose 91 Calcium 10.0 Phosphorus 4.0 Magnesium 2.1 Iron 57 52 TIBC 311 Iron Saturation 20.0 16.7 Ferritin 132 110 Total Bilirubin 0.18 AST 19 ALT 10 Alkaline Phosphatase 90 Lactate Dehydrogenase 187 Total Protein 8.0 Albumin 4.3 Globulin 3.7 Vitamin B12 600 Exam Physical Exam Narrative Elderly woman. Const alert, oriented x3 and no apparent distress HEENT normocephalic, external ears normal and external nose normal Eyes no scleral icterus Neck supple Lymph Lymphatic: no lymphadenopathy noted Resp clear to auscultation bilaterally Cardio regular rate, regular rhythm, S1 normal heart sound, S2 normal heart sound and no murmurs GI soft to palpation and non-tender; Negative for hepatosplenomegaly Back/Spine no CVA tenderness Extremity no clubbing, cyanosis or edema Skin no rashes or lesions noted Neuro oriented x3, CN's II-XII intact bilaterally and moves all extremities Psych mental status grossly normal Coding Level of Care Code Off vis,est,level 3 Exam Problem Focused Diagnoses Iron deficiency anemia, unspecified iron deficiency anemia type D50.9 Iron deficiency anemia type: unspecified iron deficiency Assessment and Plan Assessment and Plan (1) Iron deficiency anemia: Status: Resolved Qualifiers: Iron deficiency anemia type: unspecified iron deficiency Qualified Code(s): D50.9 - Iron deficiency anemia, unspecified Comment: Iron profile is normal today, Hgb is 12.4. Has no evidence of Lymphoma. Plan: To continue Oral Iron 2-3 tabs a week. To follow up with PCP and referred if new problems arise. Clinical Quality Measures Falls Risk Screening/Assistive Devices Have you fallen in the past year?: Yes 06/12/25 1433 <Electronically signed by John Cantu> Date _ John Jang MD Cosigner Signature: Date (if applicable) CC: Dr. Janet Ramos, DO ~ [facility] Work Phone: Reason for referral (narrative)No reason for referral information availableWSelect [facility] [place] Work Phone: Chief Complaint and Reason for [...] OBESITY L KNEE OA RX HERE CP (MARCELINO) Reason for Visit Rheumatoid arthritis Chest pain [...] 16, 2024 11:36am LUMBAR DEGENERATIVE DISC DISEASE Decembe r 2023 1:15pm OBESITY September 13, 2024 9 :10am LEFT KNEE September 19, 2024 1 2:20pm RM 2 September 19, 2024 1 :18pm Test Result September 20, 2024 9 :18am GUILLAUME September 28, 2024 9 :21am GUILLAUME September 29, 2024 2 :00pm CERVICAL DENGENERATICE DISC DISEASE Febr ry 2024 11:29am OBESITY October 18, 2024 9:37am 6 M FU October 25, 2024 1:12pm BP CHECK (DB) November 01, 2024 1:44 pm Reason for Visit Admit Date Constipation August 16, 2024 10:02am RLQ abdominal pain August 16, 2024 10:02am Steatosis, liver August 16, 2024 10:02am Straining during bowel movements Decee r 2023 10:02am Anemia August 16, 2024 [...] 16, 2024 10:02am Straining during bowel movements [facility] r 2023 10:02am Anemia August 16, 2024 [...] 2024 2 :00pm CERVICAL DENGENERATICE DISC DISEASE [facility] 2024 11:29am OBESITY October 18, 2024 9:37am [...] 2024 2 :00pm CERVICAL DENGENERATICE DISC DISEASE [facility] 2024 11:29am OBESITY October 18, 2024 9:37am [...] 2024 2 :00pm CERVICAL DENGENERATICE DISC DISEASE [facility] 2024 11:29am OBESITY October 18, 2024 9:37am [...] M FU April 12, 2025 11 :06am Chief Complaint Admit Date Amb Documentation January 14, 2025 8:42a m Anemia January 23, 2025 9:10a m OBESITY January 23, 2025 11:01 am [facility] March 20, 2025 1:24 pm MED ONC March 20, 2025 1:45 pm Test Result March 27, 2025 10:2 8am OBESITY March 27, 2025 11:1 8am 1 M FU April 12, 2025 11 :06am chest pain May 05, 2025 11:29am Reason for Visit Admit Date Iron deficiency anemia January 23, 2025 9: 10am 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 January 23, 2025 9:10am Iron deficiency anemia March 07, 2025 7 :37am 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 March 07, 2025 7:37am Iron deficiency anemia March 20, 2025 1 :24pm Constipation March 27, 2025 10:2 8am Chief Complaint Admit Date [facility] March 20, 2025 1:24 pm MED ONC March 20, 2025 1:45 pm Test Result March 27, 2025 10:2 8am OBESITY March 27, 2025 11:1 8am 1 M FU April 12, 2025 11 :06am chest pain May 05, 2025 11:29am OBESITY May 22, 2025 10:53am Reason for Visit Admit Date Iron deficiency anemia March 07, 2025 7 :37am 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 March 07, 2025 7:37am Iron deficiency anemia March 20, 2025 1 :24pm Constipation March 27, 2025 10:2 8am Chief Complaint Admit Date [facility] March 20, 2025 1:24 pm Test Result March 27, 2025 10:2 8am OBESITY March 27, 2025 11:1 8am 1 M FU April 12, 2025 11 :06am chest pain May 05, 2025 11:29am OBESITY May 22, 2025 10:53am [facility] June 12, 2025 1 2:16pm MED ONC June 12, 2025 1 2:45pm LEFT KNEE June 24, 2025 1 0:43am RM 2 June 24, 2025 1 1:33am Reason for Visit Admit Date 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 March 07, 2025 7:37am Iron deficiency anemia March 07, 2025 7 :37am Iron deficiency anemia March 20, 2025 1 :24pm Constipation March 27, 2025 10:2 8am Iron deficiency anemia June 12 12:16pm Osteoarthritis of left knee May 10:43am Family History No Family History Records Found [...] Will No August 05 2:14pm Power of Sales Floor Manager No August 05, 2021 2:14pm Advance Directive Response Recorded Date/ Time Advance Directives No June 22, 2016 8:21am Living Will No January 01, 2022 9: 42am Power of Sales Floor Manager No January 01, 2022 9:42am Advance Directive Response Recorded Date/ Time Advance Directives No June 22, 2016 7:21am Living Will No January 01, 2022 8: 42am Power of Sales Floor Manager No January 01, 2022 8:42am Advance Directive Response Recorded Date/ Time Advance Directives No June 22, 2016 8:21am Living Will No March 22, 2023 9:34am Power of Sales Floor Manager No March 22 9:34am Advance Directive Response Recorded Date/ Time Advance Directives No June 2:40pm Living Will No July 12, 2 023 2:40pm Power of Sales Floor Manager No July 12, 2023 2:40pm Advance Directive Response Recorded Date/ Time Advance Directives No June 3:40pm Living Will No July 12, 023 3:40pm Power of Sales Floor Manager No July 12, 2023 3:40pm Advance Directive Response Recorded Date/ Time Advance Directives No November 28 10:01am Living Will No November 29, 2023 10:01am Power of Sales Floor Manager No November 28 10:01am Advance Directive Response Recorded Date/ Time Advance Directives No December 18, 024 8:15am Living Will No December 19, 2023 8:15am Power of Sales Floor Manager No December 18 8:15am Advance Directive Response Recorded Date/ Time Living Will No August 29 1:38am Power of Sales Floor Manager No August 29 025 1:38am Living Will No September 29 4:07pm Power of Sales Floor Manager No September 29, 2024 4:07pm Living Will No April 24 12:31pm Power of Sales Floor Manager No April 24, 2 024 12:31pm Living Will No July 29 1:22am Power of Sales Floor Manager No July 29, 2024 1:22am Living Will No August 28 024 1:44pm Power of Sales Floor Manager No August 28, 2024 1:44pm Living Will No September 28 10:51am Power of Sales Floor Manager No September 28, 2024 10:51am Living Will No September 29 1:59am Power of Sales Floor Manager No September 29, 2024 1:59am Advance Directives No January 30 1:25pm Advance Directive Response Recorded Date/ Time Living Will No August 29 1:38am Do you have a Healthcare Power of Sales Floor Manager? No August 29, 2024 1:38am Living Will No November 16, 2024 10:46am Do you have a Healthcare Power of Sales Floor Manager? No November 16, 2024 10:46am Living Will No September 29 4:07pm Do you have a Healthcare Power of Sales Floor Manager? No September 29, 2024 4:07pm Living Will No April 24 12:31pm Do you have a Healthcare Power of Sales Floor Manager? No April 24, 2024 12:31pm Living Will No July 29 1:22am Do you have a Healthcare Power of Sales Floor Manager? No July 29, 2024 1:22am Living Will No August 28 1:44pm Do you have a Healthcare Power of Sales Floor Manager? No August 28, 2024 1:44pm Living Will No September 28 10:51am Do you have a Healthcare Power of Sales Floor Manager? No September 28, 2024 10:51am Living Will No September 29 1:59am Do you have a Healthcare Power of Sales Floor Manager? No September 29, 2024 1:59am Advance Directives No January 30 1:25pm Advance Directive Response Recorded Date/ Time Living Will No August 29 1:38am Do you have a Healthcare Power of Sales Floor Manager? No August 29, 2024 1:38am Living Will No November 16, 2024 10:46am Do you have a Healthcare Power of Sales Floor Manager? No November 16, 2024 10:46am Living Will No September 29 4:07pm Do you have a Healthcare Power of Sales Floor Manager? No September 29, 2024 4:07pm Living Will No September 28 10:51am Do you have a Healthcare Power of Sales Floor Manager? No September 28, 2024 10:51am Living Will No September 29 1:59am Do you have a Healthcare Power of Sales Floor Manager? No September 29, 2024 1:59am Advance Directives No January 30 1:25pm Advance Directive Response Recorded Date/ Time Living Will No November 16, 2024 10:46am Do you have a Healthcare Power of Sales Floor Manager? No November 16, 2024 10:46am Living Will No September 29 4:07pm Do you have a Healthcare Power of Sales Floor Manager? No September 29, 2024 4:07pm Living Will No October 27, 2024 2:53am Do you have a Healthcare Power of Sales Floor Manager? No October 27, 2024 2:53am Living Will No September 28 10:51am Do you have a Healthcare Power of Sales Floor Manager? No September 28, 2024 10:51am Living Will No September 29 1:59am Do you have a Healthcare Power of Sales Floor Manager? No September 29, 2024 1:59am Advance Directives No January 30 1:25pm Advance Directive Response Recorded Date/ Time Living Will No November 16, 2024 10:46am Do you have a Healthcare Power of Sales Floor Manager? No November 16, 2024 10:46am Living Will No September 29 4:07pm Do you have a Healthcare Power of Sales Floor Manager? No September 29, 2024 4:07pm Living Will No October 27, 2024 2:53am Do you have a Healthcare Power of Sales Floor Manager? No October 27, 2024 2:53am Living Will No September 29 1:59am Do you have a Healthcare Power of Sales Floor Manager? No September 29, 2024 1:59am Advance Directives No January 30 1:25pm Advance Directive Response Recorded Date/ Time Living Will No November 16, 2024 10:46am Do you have a Healthcare Power of Sales Floor Manager? No November 16, 2024 10:46am Living Will No October 27, 2024 2:53am Do you have a Healthcare Power of Sales Floor Manager? No October 27, 2024 2:53am Do you have a Healthcare Power of Sales Floor Manager? No March 06, 2025 12:04pm Advance Directives No January 30 1:25pm Advance Directive Response Recorded Date/ Time Living Will No October 27, 2024 2:53am Do you have a Healthcare Power of Sales Floor Manager? No October 27, 2024 2:53am Do you have a Healthcare Power of Sales Floor Manager? No March 06, 2025 12:04pm Advance Directives No January 30 1:25pm Advance Directive Response Recorded Date/ Time Living Will No October 27, 2024 2:53am Do you have a Healthcare Power of Sales Floor Manager? No October 27, 2024 2:53am Do you have a Healthcare Power of Sales Floor Manager? No March 06, 2025 12:04pm Living Will No January 27, 2025 1 2:03am Do you have a Healthcare Power of Sales Floor Manager? No January 27, 2025 12:03am Advance Directives No January 30 1:25pm Advance Directive Response Recorded Date/ Time Living Will No October 27, 2024 2:53am Do you have a Healthcare Power of Sales Floor Manager? No October 27, 2024 2:53am Do you have a Healthcare Power of Sales Floor Manager? No March 06, 2025 12:04pm Do you have a Healthcare Power of Sales Floor Manager? No May 05, 2025 11:52am Living Will No January 27, 2025 1 2:03am Do you have a Healthcare Power of Sales Floor Manager? No January 27, 2025 12:03am Advance Directives No January 30 1:25pm Advance Directive Response Recorded Date/ Time Do you have a Healthcare Power of Sales Floor Manager? No March 06, 2025 12:04pm Do you have a Healthcare Power of Sales Floor Manager? No May 05, 2025 11:52am Living Will No January 27, 2025 1 2:03am Do you have a Healthcare Power of Sales Floor Manager? No January 27, 2025 12:03am Advance Directives No January 30 1:25pm Summary Purpose Additional Source Comments Source Comments (unrecognize d section and content) In the event this informatio n is protected by the Federal Confidentiality of Alcohol and Drug Abuse Patient Records regulations: The Federal rules restrict any use of the information to criminally investigate or prosecute any alcohol or drug abuse patient.[place]healthIn the event this information is protected by the Federal Confidentiality of Alcohol and Drug Abuse Patient Records regulations: The Federal rules restrict any use of the information to criminally investigate or prosecute any alcohol or drug abuse patient.[place]healthIn the event this information is protected by the Federal Confidentiality of Alcohol and Drug Abuse Patient Records regulations: The Federal rules restrict any use of the information to criminally investigate or prosecute any alcohol or drug abuse patient.[place]healthIn the event this information is protected by the Federal Confidentiality of Alcohol and Drug Abuse Patient Records regulations: The Federal rules restrict any use of the information to criminally investigate or prosecute any alcohol or drug abuse patient.[place]healthIn the event this information is protected by the Federal Confidentiality of Alcohol and Drug Abuse Patient Records regulations: The Federal rules restrict any use of the information to criminally investigate or prosecute any alcohol or drug abuse patient.[place]healthIn the event this information is protected by the Federal Confidentiality of Alcohol and Drug Abuse Patient Records regulations: The Federal rules restrict any use of the information to criminally investigate or prosecute any alcohol or drug abuse patient.[place]healthIn the event this information is protected by the Federal Confidentiality of Alcohol and Drug Abuse Patient Records regulations: The Federal rules restrict any use of the information to criminally investigate or prosecute any alcohol or drug abuse patient.[place]healthIn the event this information is protected by the Federal Confidentiality of Alcohol and Drug Abuse Patient Records regulations: The Federal rules restrict any use of the information to criminally investigate or prosecute any alcohol or drug abuse patient.[facility] Reason for Visit (unrecogniz ed section and content) Reason Comments Patient Update Reason Comments Patient Question Reason Comments Sjogren's Disease Reason Comments Orders Reason Comments Future Appointment labs Reason Comments Sjogren's Disease Osteoarthritis Consult Care Teams (unrecognized sec tion and content) Survival Equipment Repairer Relationship Specialty Start Date End Date Janet Ramos DO PCP - [facility] 06/10/14 Survival Equipment Repairer Relationship Specialty Start Date End Date Janet Ramos DO PCP - [facility] 06/10/14 Team Status: Active Member Role Status Dates Dr. Janet Ramos DO Family Provider Active Dr. Janet Ramos DO Primary Care Provider Active Team Status: Inactive Member Role Status Dates Dr. Janet Ramos DO Primary Care Provider, Attendin g Provider Active Team Status: Active Member Role Status Dates Dr. Janet Ramos DO Primary Care Provider Active Lizet Teach , DIRECTOR OF PHYSICAL SECURITY-C Attending Provider, Referring Pro vider Active Team Status: Active Member Role Status Dates Dr. Janet Ramos DO Primary Care Provider, Attendin g Provider Active Team Status: Inactive Member Role Status Dates Dr. Janet Ramos DO Primary Care Prov ider, Attending Provider, Referring Provider Active Team Status: Inactive Member Role Status Dates Dr. Janet Ramos DO Primary Care Provider Active Lizet Teach , DIRECTOR OF PHYSICAL SECURITY-C Attending Provider, Referring Pro vider Active Team Status: Inactive Member Role Status Dates Dr. Janet Ramos DO Primary Care Provider Active Dr. Josue Apodaca DO Attending Provider, Emergency Celine mike Active Survival Equipment Repairer Relationship Specialty Start Date End Date Erik, Janet Reynolds DO PCP - [facility] 06/10/14 Survival Equipment Repairer Relationship Specialty Start Date End Date Janet Ramos DO [facility] 06/10/14 Team Status: Active Member Role Status Dates Dr. Janet Ramos DO Primary Care Prov ider, Attending Provider, Referring Provider Active Team Status: Inactive Member Role Status Dates Dr. Janet Ramos DO Primary Care Provider, Referrin g Provider Active Dr. John Agee DO Attending Provider Active Team Status: Inactive Member Role Status Dates Dr. Janet Ramos DO Primary Care Provider Active Dr. Glenn Nava MD Attending Provider Active Team Status: Active Member Role Status Dates Dr. Janet Ramos DO Family Provider Active Keisha Williamson , DIRECTOR OF PHYSICAL SECURITY-C Primary Care Provider Active Team Status: Inactive Member Role Status Dates Keisha Williamson , DIRECTOR OF PHYSICAL SECURITY-C Primary Care Provide r, Attending Provider, Referring Provider Active Team Status: Active Member Role Status Dates Keishaandrade Williamson , DIRECTOR OF PHYSICAL SECURITY-C Primary Care Provide r, Attending Provider, Referring Provider Active Team Status: Inactive Member Role Status Dates Keisha Williamson DIRECTOR OF PHYSICAL SECURITY-C Primary Care Provider, Referring P rovider Active Dr. Cristobal Olmos MD Attending Provider Active Team Status: Inactive Member Role Status Dates Dr. Janet Ramos DO Attending Provider, Referring P rovider Active Keishaandrade Williamson , DIRECTOR OF PHYSICAL SECURITY-C Primary Care Provider Active Team Status: Active Member Role Status Dates Lizet Pate DIRECTOR OF PHYSICAL SECURITY-C Attending Provider, Referring Pro vider Active Keisha Clay , DIRECTOR OF PHYSICAL SECURITY-C Primary Care Provider Active Team Status: Active Member Role Status Dates Dr. Janet Ramos DO Attending Provider, Referring P rovider Active Keisha Williamson , DIRECTOR OF PHYSICAL SECURITY-C Primary Care Provider Active Team Status: Active Member Role Status Dates Dr. Cristobal Olmos MD Referring Provider, Other Provid er Active Dr. Janet Ramos DO Primary Care Provider Active Dr. Hao Olmos DO Attending Provider Active Team Status: Active Member Role Status Dates Dr. Cristobal Olmos MD Attending Provider, Referring Pr ovider Active Dr. Janet Ramos DO Primary Care Provider Active Team Status: Inactive Member Role Status Dates Dr. Cristobal Olmos MD Attending Provider, Referring Pr ovider Active Dr. Janet Ramos DO Primary Care Provider Active Team Status: Active Member Role Status Dates Dr. Cristobal Olmos MD Attending Provider , Referring Provider, Other Provider Active Dr. Janet Ramos DO Primary Care Provider Active Team Status: Active Member Role Status Dates Dr. Janet Ramos DO Primary Care Provider Active Dr. Glenn Nava MD Attending Provider Active Team Status: Inactive Member Role Status Dates Keisha Williamson NP-C Primary Care Provider Active Dr. Cristobal Olmos MD Attending Provider, Referring Pr ovider Active Team Status: Active Member Role Status Dates Dr. Janet Ramos DO Primary Care Provider Active Dr. Glenn Nava MD Attending Provider, Referring Pro vider Active Team Status: Inactive Member Role Status Dates Dr. Janet Ramos DO Primary Care Provider, Referrin g Provider Active Dr. Ravindra Singh MD Attending Provider Active Team Status: Inactive Member Role Status Dates Keisha Williamson , DIRECTOR OF PHYSICAL SECURITY-C Referring Provider Active Angélica Marcelino DIRECTOR OF PHYSICAL SECURITY, DIRECTOR OF PHYSICAL SECURITY-C Attending Provider Active Dr. Janet Ramos DO Primary Care Provider Active Team Status: Active Member Role Status Dates Dr. Janet Ramos DO Primary Care Provider Active Dr. Ravindra Singh MD Attending Provider , Referring Provider, Other Provider Active Team Status: Active Member Role Status Dates Dr. Janet Ramos DO Primary Care Provider Active Supriya Schafer DIRECTOR OF PHYSICAL SECURITY, DIRECTOR OF PHYSICAL SECURITY-C Attending Provider Active Team Status: Active Member Role Status Dates Dr. Janet Ramos DO Primary Care Provider Active Dr. Ravindra Singh MD Attending Provider, Referring Pr ovider Active Team Status: Inactive Member Role Status Dates Dr. Janet Ramos DO Primary Care Provider Active Dr. John Agee DO Attending Provider, Referring Provider Active Team Status: Inactive Member Role Status Dates Dr. Janet Ramos DO Primary Care Provider Active Dr. Ravindra Singh MD Attending Provider, Referring Pr ovider Active Team Status: Active Member Role Status Dates Dr. Janet Ramos DO Primary Care Provider Active Supriya Cruz Attending Provider Active Survival Equipment Repairer Relationship Specialty Start Date End Date Janet Ramos DO PCP - General Family Medicine 06/10/14 Team Status: Active Member Role Status Dates Dr. Janet Ramos DO Primary Care Provider Active Team Status: Inactive Member Role Status Dates Dr. Janet Ramos DO Primary Care Provider Active Start: July 25, 2024 End: July 25, 2024 Dr. Janet Ramos DO Attending Provider Active Start: July 25, 2024 End: July 25, 2024 Dr. Janet Ramos DO Referring Provider Active Start: July 25, 2024 End: July 25, 2024 Team Status: Inactive Member Role Status Dates Dr. Janet Ramos DO Primary Care Provider Active Start: August 06, 2024 End: August 28, 2024 Dr. Janet Ramos DO Attending Provider Active Start: August 06, 2024 End: August 28, 2024 Dr. Janet Ramos DO Referring Provider Active Start: August 06, 2024 End: August 28, 2024 Team Status: Inactive Member Role Status Dates Dr. Janet Ramos DO Primary Care Provider Active Start: August 16, 2024 End: August 16, 2024 Dr. Janet Ramos DO Referring Provider Active Start: August 16, 2024 End: August 16, 2024 ZAHIRA SanchezC Attending Provider Active Start: August 16, 2024 End: August 16, 2024 Team Status: Inactive Member Role Status Dates Dr. Janet Ramos DO Primary Care Provider Active Start: August 16, 2024 End: August 16, 2024 Clau Mcclain NP-C Attending Provider Active Start: August 16, 2024 End: August 16, 2024 KRISTINE Sanchez Referring Provider Active Start: August 16, 2024 End: August 16, 2024 Team Status: Inactive Member Role Status Dates Dr. Janet Ramos DO Primary Care Provider Active Start: August 21, 2024 End: August 21, 2024 NP. Tory Hewitt Attending Provider Active Star t: August 21, 2024 End: August 21, 2024 NP. Tory Hewitt Referring Provider Active Star t: August 21, 2024 End: August 21, 2024 Team Status: Inactive Member Role Status Dates Dr. Janet Ramos DO Primary Care Provider Active Start: August 30, 2024 End: August 30, 2024 Dr. Janet Ramos DO Referring Provider Active Start: August 30, 2024 End: August 30, 2024 Dr. Tato Posey DO Attending Provider Active Start: August 30, 2024 End: August 30, 2024 Team Status: Active Member Role Status Dates Dr. Janet Ramos DO Primary Care Provider Active Start: August 30, 2024 Dr. Janet Ramos DO Referring Provider Active Start: August 30, 2024 Dr. Tato Posey DO Attending Provider Active Start: August 30, 2024 Dr. Tato Posey DO Other Provider Active St art: August 30, 2024 Team Status: Inactive Member Role Status Dates Dr. Janet Ramos DO Primary Care Provider Active Start: September 13, 2024 End: September 28, 2024 Dr. Janet Ramos DO Attending Provider Active Start: September 13, 2024 End: September 28, 2024 Dr. Janet Ramos DO Referring Provider Active Start: September 13, 2024 End: September 28, 2024 Team Status: Inactive Member Role Status Dates Dr. Janet Ramos DO Primary Care Provider Active Start: September 19, 2024 End: September 19, 2024 Dr. Janet Ramos DO Referring Provider Active Start: September 19, 2024 End: September 19, 2024 Dr. John Agee DO Attending Provider Active Start: September 19, 2024 End: September 19, 2024 Team Status: Inactive Member Role Status Dates Dr. Janet Ramos DO Primary Care Provider Active Start: September 19, 2024 End: September 19, 2024 Dr. Glenn Nava MD Attending Provider Active S tart: September 19, 2024 End: September 19, 2024 Team Status: Inactive Member Role Status Dates Dr. Janet Ramos DO Primary Care Provider Active Start: September 20, 2024 End: September 20, 2024 Dr. Janet Ramos DO Referring Provider Active Start: September 20, 2024 End: September 20, 2024 Clau Mcclain DIRECTOR OF PHYSICAL SECURITY-C Attending Provider Active Start: September 20, 2024 End: September 20, 2024 Team Status: Inactive Member Role Status Dates Dr. Janet Ramos DO Primary Care Provider Active Start: September 20, 2024 End: September 20, 2024 Clau Mcclain DIRECTOR OF PHYSICAL SECURITY-C Attending Provider Active Start: September 20, 2024 End: September 20, 2024 Clau Mcclain DIRECTOR OF PHYSICAL SECURITY-C Referring Provider Active Start: September 20, 2024 End: September 20, 2024 Team Status: Inactive Member Role Status Dates Dr. Janet Ramos DO Primary Care Provider Active Start: September 28, 2024 End: September 28, 2024 Dr. Carolyne Leigh DO Attending Provider Active Start: September 28, 2024 End: September 28, 2024 Dr. Carolyne Leigh DO Emergency Provider Active Start: September 28, 2024 End: September 28, 2024 Team Status: Inactive Member Role Status Dates Dr. Janet Ramos DO Primary Care Provider Active Start: September 29, 2024 End: September 29, 2024 Dr. Anthony Torres DO Attending Provider Active Start: September 29, 2024 End: September 29, 2024 Dr. Anthony Torres DO Emergency Provider Active Start: September 29, 2024 End: September 29, 2024 Team Status: Inactive Member Role Status Dates Dr. Janet Ramos DO Primary Care Provider Active Start: October 09, 2024 End: October 09, 2024 DIRECTOR OF PHYSICAL SECURITY. Tory Hewitt Attending Provider Active Star t: October 09, 2024 End: October 09, 2024 DIRECTOR OF PHYSICAL SECURITY. Tory Hewitt Referring Provider Active Star t: October 09, 2024 End: October 09, 2024 Dr. Kunal Esteban MD Other Provider Active Sta rt: October 09, 2024 End: October 09, 2024 Team Status: Inactive Member Role Status Dates Dr. Janet Ramos DO Primary Care Provider Active Start: October 18, 2024 End: October 26, 2024 Dr. Janet Ramos DO Attending Provider Active Start: October 18, 2024 End: October 26, 2024 Dr. Janet Ramos DO Referring Provider Active Start: October 18, 2024 End: October 26, 2024 Team Status: Inactive Member Role Status Dates Dr. Janet Ramos DO Primary Care Provider Active Start: October 25, 2024 End: October 25, 2024 Dr. Janet Ramos DO Referring Provider Active Start: October 25, 2024 End: October 25, 2024 Dr. Ravindra Singh MD Attending Provider Active Start: October 25, 2024 End: October 25, 2024 Team Status: Inactive Member Role Status Dates Dr. Janet Ramos DO Primary Care Provider Active Start: October 25, 2024 End: October 25, 2024 Dr. Ravindra Singh MD Attending Provider Active Start: October 25, 2024 End: October 25, 2024 Dr. Ravindra Singh MD Referring Provider Active Start: October 25, 2024 End: October 25, 2024 Team Status: Inactive Member Role Status Dates Dr. Janet Ramos DO Primary Care Provider Active Start: November 01, 2024 End: November 01, 2024 Dr. Janet Ramos DO Referring Provider Active Start: November 01, 2024 End: November 01, 2024 Dr. Ravindra Singh MD Attending Provider Active Start: November 01, 2024 End: November 01, 2024 Team Status: Inactive Member Role Status Dates Dr. Janet Ramos DO Primary Care Provider Active Start: November 21, 2024 End: November 21, 2024 Dr. Janet Ramos DO Referring Provider Active Start: November 21, 2024 End: November 21, 2024 Dr. Tato Posey DO Attending Provider Active Start: November 21, 2024 End: November 21, 2024 Clau Mcclain NP-C Other Provider Active St art: November 21, 2024 End: November 21, 2024 Team Status: Active Member Role Status Dates Dr. Janet Ramos DO Primary Care Provider Active Start: November 21, 2024 Dr. Janet Ramos DO Referring Provider Active Start: November 21, 2024 Dr. Tato Posey DO Attending Provider Active Start: November 21, 2024 Dr. Tato Posey DO Other Provider Active St art: November 21, 2024 Clau Mcclain NP-C Other Provider Active St art: November 21, 2024 Survival Equipment Repairer Relationship Specialty Start Date End Date Janet Ramos DO PCP - General Family Medicine 06/10/14 Survival Equipment Repairer Relationship Specialty Start Date End Date Janet Ramos DO PCP - General Family Medicine 06/10/14 Team Status: Inactive Member Role Status Dates Dr. Janet Ramos DO Primary Care Provider Active Start: December 19, 2024 End: December 19, 2024 Dr. Janet Ramos DO Referring Provider Active Start: December 19, 2024 End: December 19, 2024 Dr. John Agee DO Attending Provider Active Start: December 19, 2024 End: December 19, 2024 Team Status: Inactive Member Role Status Dates Dr. Janet Ramos DO Primary Care Provider Active Start: December 19, 2024 End: December 19, 2024 Dr. Glenn Nava MD Attending Provider Active S tart: December 19, 2024 End: December 19, 2024 Team Status: Inactive Member Role Status Dates Dr. Janet aRmos DO Primary Care Provider Active Start: January 03, 2025 End: January 03, 2025 Dr. Janet Ramos DO Referring Provider Active Start: January 03, 2025 End: January 03, 2025 ZAHIRA SanchezC Attending Provider Active Start: January 03, 2025 End: January 03, 2025 Team Status: Inactive Member Role Status Dates Dr. Janet Ramos DO Primary Care Provider Active Start: January 03, 2025 End: January 03, 2025 Clau Mcclain NP-C Attending Provider Active Start: January 03, 2025 End: January 03, 2025 Clau Mcclain NP-C Referring Provider Active Start: January 03, 2025 End: January 03, 2025 Team Status: Active Member Role Status Dates Dr. Janet Ramos DO Primary Care Provider Active Start: January 14, 2025 Jaqui Jordan Attending Provider Active Start: January 14, 2025 Team Status: Inactive Member Role Status Dates Dr. Janet Ramos DO Primary Care Provider Active Start: January 23, 2025 End: January 23, 2025 JAYASHREE [place] Referring Provider Active Start: January 23, 2025 End: January 23, 2025 Dr. John Jang MD Attending Provider Active S tart: January 23, 2025 End: January 23, 2025 Team Status: Active Member Role Status Dates Dr. Janet Ramos DO Primary Care Provider Active Start: January 23, 2025 Dr. John Jang MD Attending Provider Active S tart: January 23, 2025 Dr. John Jang MD Referring Provider Active S tart: January 23, 2025 Team Status: Active Member Role Status Dates Dr. Janet Ramos DO Primary Care Provider Active Start: January 23, 2025 Dr. Janet Ramos DO Attending Provider Active Start: January 23, 2025 Dr. Janet Ramos DO Referring Provider Active Start: January 23, 2025 Team Status: Inactive Member Role Status Dates Dr. Janet Ramos DO Primary Care Provider Active Start: January 23, 2025 End: January 26, 2025 Dr. Janet Ramos DO Attending Provider Active Start: January 23, 2025 End: January 26, 2025 Dr. Janet Ramos DO Referring Provider Active Start: January 23, 2025 End: January 26, 2025 Team Status: Active Member Role Status Dates Dr. Janet Ramos DO Primary Care Provider Active Start: January 25, 2025 Dr. John Jang MD Attending Provider Active S tart: January 25, 2025 Dr. John Jang MD Referring Provider Active S tart: January 25, 2025 Team Status: Active Member Role/Relationship Status Dates Dr. Janet Ramos DO Primary Care Provider Active Team Status: Inactive Member Role/Relationship Status Dates Dr. Janet Ramos DO Primary Care Provider Active Start: November 21, 2024 End: November 21, 2024 Dr. Janet Ramos DO Referring Provider Active Start: November 21, 2024 End: November 21, 2024 Dr. Tato Posey DO Attending Provider Active Start: November 21, 2024 End: November 21, 2024 KRISTINE Sanchez Other Provider Active St art: November 21, 2024 End: November 21, 2024 Team Status: Active Member Role/Relationship Status Dates Dr. Janet Ramos DO Primary Care Provider Active Start: November 21, 2024 Dr. Janet Ramos DO Referring Provider Active Start: November 21, 2024 Dr. Tato Posey DO Attending Provider Active Start: November 21, 2024 Dr. Tato Posey DO Other Provider Active St art: November 21, 2024 KRISTINE Sanchez Other Provider Active St art: November 21, 2024 Team Status: Inactive Member Role/Relationship Status Dates Dr. Janet Ramos DO Primary Care Provider Active Start: December 19, 2024 End: December 19, 2024 Dr. Janet Ramos DO Referring Provider Active Start: December 19, 2024 End: December 19, 2024 Dr. John Agee DO Attending Provider Active Start: December 19, 2024 End: December 19, 2024 Team Status: Inactive Member Role/Relationship Status Dates Dr. Janet Ramos DO Primary Care Provider Active Start: December 19, 2024 End: December 19, 2024 Dr. Glenn Nava MD Attending Provider Active S tart: December 19, 2024 End: December 19, 2024 Team Status: Inactive Member Role/Relationship Status Dates Dr. Janet Ramos DO Primary Care Provider Active Start: January 03, 2025 End: January 03, 2025 Dr. Janet Ramos DO Referring Provider Active Start: January 03, 2025 End: January 03, 2025 Clau Mcclain NP-C Attending Provider Active Start: January 03, 2025 End: January 03, 2025 Team Status: Inactive Member Role/Relationship Status Dates Dr. Janet Ramos DO Primary Care Provider Active Start: January 03, 2025 End: January 03, 2025 Clau Mcclain NP-C Attending Provider Active Start: January 03, 2025 End: January 03, 2025 Clau Mcclain NP-C Referring Provider Active Start: January 03, 2025 End: January 03, 2025 Team Status: Active Member Role/Relationship Status Dates Dr. Janet Ramos DO Primary Care Provider Active Start: January 14, 2025 Jaqui Jordan Attending Provider Active Start: January 14, 2025 Team Status: Inactive Member Role/Relationship Status Dates Dr. Janet Ramos DO Primary Care Provider Active Start: January 23, 2025 End: January 23, 2025 JAYASHREE Glasgow Referring Provider Active Start: January 23, 2025 End: January 23, 2025 Dr. John Jang MD Attending Provider Active S tart: January 23, 2025 End: January 23, 2025 Team Status: Inactive Member Role/Relationship Status Dates Dr. Janet Ramos DO Primary Care Provider Active Start: January 23, 2025 End: January 26, 2025 Dr. Janet Ramos DO Attending Provider Active Start: January 23, 2025 End: January 26, 2025 Dr. Janet Ramos DO Referring Provider Active Start: January 23, 2025 End: January 26, 2025 Team Status: Active Member Role/Relationship Status Dates Dr. Janet Ramos DO Primary Care Provider Active Start: February 22, 2025 Dr. John Jang MD Attending Provider Active S tart: February 22, 2025 Dr. John Jang MD Referring Provider Active S tart: February 22, 2025 Team Status: Inactive Member Role/Relationship Status Dates Dr. aJnet Ramos DO Primary Care Provider Active Start: March 07, 2025 End: March 07, 2025 Dr. Janet Ramos DO Referring Provider Active Start: March 07, 2025 End: March 07, 2025 Dr. Tato Posey DO Attending Provider Active Start: March 07, 2025 End: March 07, 2025 Team Status: Active Member Role/Relationship Status Dates Dr. Janet Ramos DO Primary Care Provider Active Start: March 07, 2025 Dr. Janet Ramos DO Referring Provider Active Start: March 07, 2025 Dr. Tato Posey DO Attending Provider Active Start: March 07, 2025 Dr. Tato Posey DO Other Provider Active St art: March 07, 2025 Team Status: Inactive Member Role/Relationship Status Dates Dr. Janet Ramos DO Primary Care Provider Active Start: February 26, 2025 Dr. Darya Abreu MD Attending Provider Active Start: February 26, 2025 Team Status: Inactive Member Role/Relationship Status Dates Dr. Janet Ramos DO Primary Care Provider Active Start: March 20, 2025 End: March 20, 2025 Dr. Janet Ramos DO Referring Provider Active Start: March 20, 2025 End: March 20, 2025 Dr. John Jang MD Attending Provider Active S tart: March 20, 2025 End: March 20, 2025 Team Status: Active Member Role/Relationship Status Dates Dr. Janet Ramos DO Primary Care Provider Active Start: March 20, 2025 Dr. John Jang MD Attending Provider Active S tart: March 20, 2025 Dr. John Jang MD Referring Provider Active S tart: March 20, 2025 Team Status: Inactive Member Role/Relationship Status Dates Dr. Janet Ramos DO Primary Care Provider Active Start: December 19, 2024 End: December 19, 2024 Dr. Janet Ramos DO Referring Provider Active Start: December 19, 2024 End: December 19, 2024 Dr. John Agee DO Attending Provider Active Start: December 19, 2024 End: December 19, 2024 Team Status: Inactive Member Role/Relationship Status Dates Dr. Janet Ramos DO Primary Care Provider Active Start: December 19, 2024 End: December 19, 2024 Dr. Glenn Nava MD Attending Provider Active S tart: December 19, 2024 End: December 19, 2024 Team Status: Inactive Member Role/Relationship Status Dates Dr. Janet Ramos DO Primary Care Provider Active Start: January 03, 2025 End: January 03, 2025 Dr. Janet Ramos DO Referring Provider Active Start: January 03, 2025 End: January 03, 2025 Clau Mcclain NP-C Attending Provider Active Start: January 03, 2025 End: January 03, 2025 Team Status: Inactive Member Role/Relationship Status Dates Dr. Janet Ramos DO Primary Care Provider Active Start: January 03, 2025 End: January 03, 2025 Clau Mcclain NP-C Attending Provider Active Start: January 03, 2025 End: January 03, 2025 Clau Mcclain NP-C Referring Provider Active Start: January 03, 2025 End: January 03, 2025 Team Status: Active Member Role/Relationship Status Dates Dr. Janet Ramos DO Primary Care Provider Active Start: January 14, 2025 Jaqui Jordan Attending Provider Active Start: January 14, 2025 Team Status: Inactive Member Role/Relationship Status Dates Dr. Janet Ramos DO Primary Care Provider Active Start: January 23, 2025 End: January 23, 2025 JAYASHREE Glasgow Referring Provider Active Start: January 23, 2025 End: January 23, 2025 Dr. John Jang MD Attending Provider Active S tart: January 23, 2025 End: January 23, 2025 Team Status: Inactive Member Role/Relationship Status Dates Dr. Janet Ramos DO Primary Care Provider Active Start: January 23, 2025 End: January 26, 2025 Dr. Janet Ramos DO Attending Provider Active Start: January 23, 2025 End: January 26, 2025 Dr. Janet Ramos DO Referring Provider Active Start: January 23, 2025 End: January 26, 2025 Team Status: Inactive Member Role/Relationship Status Dates Dr. Janet Ramos DO Primary Care Provider Active Start: February 26, 2025 Dr. Darya Abreu MD Attending Provider Active Start: February 26, 2025 Team Status: Inactive Member Role/Relationship Status Dates Dr. Janet Ramos DO Primary Care Provider Active Start: March 07, 2025 End: March 07, 2025 Dr. Janet Ramos DO Referring Provider Active Start: March 07, 2025 End: March 07, 2025 Dr. Tato Posey DO Attending Provider Active Start: March 07, 2025 End: March 07, 2025 Team Status: Active Member Role/Relationship Status Dates Dr. Janet Ramos DO Primary Care Provider Active Start: March 07, 2025 Dr. Janet Ramos DO Referring Provider Active Start: March 07, 2025 Dr. Tato Posey DO Attending Provider Active Start: March 07, 2025 Dr. Tato Posey DO Other Provider Active St art: March 07, 2025 Team Status: Inactive Member Role/Relationship Status Dates Dr. Janet Ramos DO Primary Care Provider Active Start: March 20, 2025 End: March 20, 2025 Dr. Janet Ramos DO Referring Provider Active Start: March 20, 2025 End: March 20, 2025 Dr. John Jang MD Attending Provider Active S tart: March 20, 2025 End: March 20, 2025 Team Status: Active Member Role/Relationship Status Dates Dr. Janet Ramos DO Primary Care Provider Active Start: March 20, 2025 Dr. John Jang MD Attending Provider Active S tart: March 20, 2025 Dr. John Jang MD Referring Provider Active S tart: March 20, 2025 Team Status: Inactive Member Role/Relationship Status Dates Dr. Janet Ramos DO Primary Care Provider Active Start: March 27, 2025 End: March 27, 2025 Dr. Janet Ramos DO Referring Provider Active Start: March 27, 2025 End: March 27, 2025 KRISTINE Sanchez Attending Provider Active Start: March 27, 2025 End: March 27, 2025 Team Status: Inactive Member Role/Relationship Status Dates Dr. Janet Ramos DO Primary Care Provider Active Start: March 27, 2025 End: March 28, 2025 Dr. Janet Ramos DO Attending Provider Active Start: March 27, 2025 End: March 28, 2025 Dr. Janet Ramos DO Referring Provider Active Start: March 27, 2025 End: March 28, 2025 Team Status: Inactive Member Role/Relationship Status Dates Dr. Janet Ramos DO Primary Care Provider Active Start: April 12, 2025 End: April 12, 2025 Dr. Janet Ramos DO Referring Provider Active Start: April 12, 2025 End: April 12, 2025 Dr. Darya Abreu MD Attending Provider Active Start: April 12, 2025 End: April 12, 2025 Team Status: Active Member Role/Relationship Status Dates Dr. Janet Ramos DO Primary Care Provider Active Start: January 14, 2025 Jaqui Jordan Attending Provider Active Start: January 14, 2025 Team Status: Inactive Member Role/Relationship Status Dates Dr. Janet Ramos DO Primary Care Provider Active Start: January 23, 2025 End: January 23, 2025 JAYASHREE Glasgow Referring Provider Active Start: January 23, 2025 End: January 23, 2025 Dr. John Jang MD Attending Provider Active S tart: January 23, 2025 End: January 23, 2025 Team Status: Inactive Member Role/Relationship Status Dates Dr. Janet Ramos DO Primary Care Provider Active Start: January 23, 2025 End: January 26, 2025 Dr. Janet Ramos DO Attending Provider Active Start: January 23, 2025 End: January 26, 2025 Dr. Janet Ramos DO Referring Provider Active Start: January 23, 2025 End: January 26, 2025 Team Status: Inactive Member Role/Relationship Status Dates Dr. Janet Ramos DO Primary Care Provider Active Start: February 26, 2025 Dr. Darya Abreu MD Attending Provider Active Start: February 26, 2025 Team Status: Inactive Member Role/Relationship Status Dates Dr. Janet Rmaos DO Primary Care Provider Active Start: March 07, 2025 End: March 07, 2025 Dr. Janet Ramos DO Referring Provider Active Start: March 07, 2025 End: March 07, 2025 Dr. Tato Posey DO Attending Provider Active Start: March 07, 2025 End: March 07, 2025 Team Status: Active Member Role/Relationship Status Dates Dr. Janet Ramos DO Primary Care Provider Active Start: March 07, 2025 Dr. Janet Ramos DO Referring Provider Active Start: March 07, 2025 Dr. Tato Posey DO Attending Provider Active Start: March 07, 2025 Dr. Tato Posey DO Other Provider Active St art: March 07, 2025 Team Status: Inactive Member Role/Relationship Status Dates Dr. Janet Ramos DO Primary Care Provider Active Start: March 20, 2025 End: March 20, 2025 Dr. Janet Ramos DO Referring Provider Active Start: March 20, 2025 End: March 20, 2025 Dr. John Jang MD Attending Provider Active S tart: March 20, 2025 End: March 20, 2025 Team Status: Active Member Role/Relationship Status Dates Dr. Janet Ramos DO Primary Care Provider Active Start: March 20, 2025 Dr. John Jang MD Attending Provider Active S tart: March 20, 2025 Dr. John Jang MD Referring Provider Active S tart: March 20, 2025 Team Status: Inactive Member Role/Relationship Status Dates Dr. Janet Ramos DO Primary Care Provider Active Start: March 27, 2025 End: March 27, 2025 Dr. Janet Ramos DO Referring Provider Active Start: March 27, 2025 End: March 27, 2025 KRISTINE Sanchez Attending Provider Active Start: March 27, 2025 End: March 27, 2025 Team Status: Inactive Member Role/Relationship Status Dates Dr. Janet Ramos DO Primary Care Provider Active Start: March 27, 2025 End: March 28, 2025 Dr. Janet Ramos DO Attending Provider Active Start: March 27, 2025 End: March 28, 2025 Dr. Janet Ramos DO Referring Provider Active Start: March 27, 2025 End: March 28, 2025 Team Status: Inactive Member Role/Relationship Status Dates Dr. Janet Ramos DO Primary Care Provider Active Start: April 12, 2025 End: April 12, 2025 Dr. Janet Ramos DO Referring Provider Active Start: April 12, 2025 End: April 12, 2025 Dr. Darya Abreu MD Attending Provider Active Start: April 12, 2025 End: April 12, 2025 Team Status: Inactive Member Role/Relationship Status Dates Dr. Janet Ramos DO Primary Care Provider Active Start: May 05, 2025 End: May 05, 2025 Dr. Carolyne Leigh DO Emergency Provider Active Start: May 05, 2025 End: May 05, 2025 Team Status: Active Member Role/Relationship Status Dates Dr. Janet Raoms DO Primary care physician Active Team Status: Inactive Member Role/Relationship Status Dates Dr. Janet Ramos DO Primary care physician Active Start: February 26, 2025 Dr. Darya Abreu MD Attending physician Active Start: February 26, 2025 Team Status: Inactive Member Role/Relationship Status Dates Dr. Janet Ramos DO Primary care physician Active Start: March 07, 2025 End: March 07, 2025 Dr. Janet Ramos DO Referring Provider Active Start: March 07, 2025 End: March 07, 2025 Dr. Tato Posey DO Attending physician Active Start: March 07, 2025 End: March 07, 2025 Team Status: Active Member Role/Relationship Status Dates Dr. Janet Ramos DO Primary care physician Active Start: March 07, 2025 Dr. Janet Ramos DO Referring Provider Active Start: March 07, 2025 Dr. Tato Posey DO Attending physician Active Start: March 07, 2025 Dr. Tato Posey DO Nurse Practitioner Active Start: March 07, 2025 Team Status: Inactive Member Role/Relationship Status Dates Dr. Janet Ramos DO Primary care physician Active Start: March 20, 2025 End: March 20, 2025 Dr. Janet Ramos DO Referring Provider Active Start: March 20, 2025 End: March 20, 2025 Dr. John Jang MD Attending physician Active Start: March 20, 2025 End: March 20, 2025 Team Status: Active Member Role/Relationship Status Dates Dr. Janet Ramos DO Primary care physician Active Start: March 20, 2025 Dr. John Jang MD Attending physician Active Start: March 20, 2025 Dr. John Jang MD Referring Provider Active S tart: March 20, 2025 Team Status: Inactive Member Role/Relationship Status Dates Dr. Janet Ramos DO Primary care physician Active Start: March 27, 2025 End: March 27, 2025 Dr. Janet Ramos DO Referring Provider Active Start: March 27, 2025 End: March 27, 2025 KRISTINE Sanchez Attending physician Active Start: March 27, 2025 End: March 27, 2025 Team Status: Inactive Member Role/Relationship Status Dates Dr. Janet Ramos DO Primary care physician Active Start: March 27, 2025 End: March 28, 2025 Dr. Janet Ramos DO Attending physician Active Start: March 27, 2025 End: March 28, 2025 Dr. Janet Ramos DO Referring Provider Active Start: March 27, 2025 End: March 28, 2025 Team Status: Inactive Member Role/Relationship Status Dates Dr. Janet Ramos DO Primary care physician Active Start: April 12, 2025 End: April 12, 2025 Dr. Janet Ramos DO Referring Provider Active Start: April 12, 2025 End: April 12, 2025 Dr. Darya Abreu MD Attending physician Active Start: April 12, 2025 End: April 12, 2025 Team Status: Inactive Member Role/Relationship Status Dates Dr. Janet Ramos DO Primary care physician Active Start: May 05, 2025 End: May 05, 2025 Dr. Carolyne Leigh DO Attending physician Active Start: May 05, 2025 End: May 05, 2025 Dr. Carolyne Leigh DO Emergency Depart ent Physician Active Start: May 05, 2025 End: May 05, 2025 Team Status: Inactive Member Role/Relationship Status Dates Dr. Janet Ramos DO Primary care physician Active Start: May 22, 2025 End: May 28, 2025 Dr. Janet Ramos DO Attending physician Active Start: May 22, 2025 End: May 28, 2025 Dr. Janet Ramos DO Referring Provider Active Start: May 22, 2025 End: May 28, 2025 Team Status: Active Member Role/Relationship Status Dates Dr. Janet Ramos DO Primary care physician Active Start: May 22, 2025 Dr. Darya Abreu MD Attending physician Active Start: May 22, 2025 Team Status: Inactive Member Role/Relationship Status Dates Dr. Janet Ramos DO Primary care physician Active Start: March 27, 2025 End: March 27, 2025 Dr. Janet Ramos DO Referring Provider Active Start: March 27, 2025 End: March 27, 2025 KRISTINE Sanchez Attending physician Active Start: March 27, 2025 End: March 27, 2025 Team Status: Inactive Member Role/Relationship Status Dates Dr. Janet Ramos DO Primary care physician Active Start: March 27, 2025 End: March 28, 2025 Dr. Janet Ramos DO Attending physician Active Start: March 27, 2025 End: March 28, 2025 Dr. Janet Ramos DO Referring Provider Active Start: March 27, 2025 End: March 28, 2025 Team Status: Inactive Member Role/Relationship Status Dates Dr. Janet Ramos DO Primary care physician Active Start: April 12, 2025 End: April 12, 2025 Dr. Janet Ramos DO Referring Provider Active Start: April 12, 2025 End: April 12, 2025 Dr. Darya Abreu MD Attending physician Active Start: April 12, 2025 End: April 12, 2025 Team Status: Inactive Member Role/Relationship Status Dates Dr. Janet Ramos DO Primary care physician Active Start: May 05, 2025 End: May 05, 2025 Dr. Carolyne Leigh DO Attending physician Active Start: May 05, 2025 End: May 05, 2025 Dr. Carolyne Leigh DO Emergency Depart ent Physician Active Start: May 05, 2025 End: May 05, 2025 Team Status: Inactive Member Role/Relationship Status Dates Dr. Janet Ramos DO Primary care physician Active Start: May 22, 2025 End: May 28, 2025 Dr. Janet Ramos DO Attending physician Active Start: May 22, 2025 End: May 28, 2025 Dr. Janet Ramos DO Referring Provider Active Start: May 22, 2025 End: May 28, 2025 Team Status: Active Member Role/Relationship Status Dates Dr. Janet Ramos DO Primary care physician Active Start: May 22, 2025 Dr. Darya Abreu MD Attending physician Active Start: May 22, 2025 Team Status: Inactive Member Role/Relationship Status Dates Dr. Janet Ramos DO Primary care physician Active Start: June 12, 2025 End: June 12, 2025 Dr. Janet Ramos DO Referring Provider Active Start: June 12, 2025 End: June 12, 2025 Dr. John Jang MD Attending physician Active Start: June 12, 2025 End: June 12, 2025 Team Status: Active Member Role/Relationship Status Dates Dr. Janet Ramos DO Primary care physician Active Start: June 12, 2025 Dr. John Jang MD Attending physician Active Start: June 12, 2025 Dr. John Jang MD Referring Provider Active S tart: June 12, 2025 Team Status: Inactive Member Role/Relationship Status Dates Dr. Janet Ramos DO Primary care physician Active Start: June 24, 2025 End: June 24, 2025 Dr. Janet Ramos DO Referring Provider Active Start: June 24, 2025 End: June 24, 2025 Dr. John Agee DO Attending physician Active Start: June 24, 2025 End: June 24, 2025 Team Status: Inactive Member Role/Relationship Status Dates Dr. Janet Ramos DO Primary care physician Active Start: June 24, 2025 End: June 24, 2025 Dr. Glenn Nava MD Attending physician Active Start: June 24, 2025 End: June 24, 2025 Goals (unrecognized section and content) Goals [...] ized section and content) DATE CREATED AUTHOR 07/07/2025 [facility] DATE CREATED AUTHOR AUTHOR'S NOEMY ATION 07/08/2025 [facility] FOR RECORDS PERTAINING TO PATIENTS WHO ARE [...] BE BASED ON THE PRIMARY CLINICAL RECORDS. [employer] [facility]. provides no warranty or guarantee of the accuracy or completeness of information in this document.
== END | disposition home or self-care (01) ==
LOC: OPBI 09:34
PROVIDERS: PCP Family Medicine; Referring Provider Family Medicine; Visit Provider Family Medicine
DX: Z12.31 Encounter for screening mammogram for malignant neoplasm of breast (principal)
CPT/HCPCS: 77063; 77067

== ENCOUNTER 2025-08-01 08:07 | Day surgery (SDC) | payer MEDICAID, SELFPAY ==
--- NOTE | 2025-07-24 12:08 | PAT.ANESEVAL ---
Pre-Assessment Diagnosis/Proposed Procedure Planned Operative Procedure(s): REMOVAL INTERSTIM AXONICS STAGE 1 AMD 2 Anesthesia History Anesthesia History - tender labor: Anesthesia History - tender labor Hx Hospitalization No 07/24/25 10:27 Any Problems With Anesthesia No 07/24/25 10:27 Cholinesterase deficiency No 07/24/25 10:27 You/Your Family Experience No 07/24/25 10:27 fever (hyperthermia) with Relationship Recent Exposure to Contagious No 03/07/25 08:10 Disease Does patient have nerve No 07/24/25 10:27 stimulator Patient instructed to have device shut off --Does patient have Pacemaker or ICD? When Was Last Pacemaker Check QUESTION #4 FULL TEXT: You/Your Family Experience fever (hyperthermia) with Anesthesia Last Oral Intake Last Oral intake: Last Oral Intake NPO since Meds taken in AM with sips of water? Meds patient instructed to take am of surgery PONV PONV - tender labor: PONV - tender labor Female Yes 07/24/25 10:27 HX of Motion Sickness No 07/24/25 10:27 HX of N/V After Surgery No 07/24/25 10:27 Non-Smoker Yes 07/24/25 10:27 Duration of Surgery greater No 07/24/25 10:27 than 60 minutes Number of Risk Factors 2 07/24/25 10:27 PONV Score Moderate Risk 07/24/25 10:27 Height & Weight Height & Weight: Anesthesia: Height & Weight Height 5 ft 3 in 07/05/25 11:15 Respiratory Assessment Respiratory Assessment - tender labor: Respiratory Tract Infection Hx - tender labor Hx Respiratory Tract Infection No 07/24/25 10:27 STOP Sleep Apnea STOP Sleep Apnea - tender labor: STOP Sleep Apnea - tender labor Hx Hypertension Yes: CONTROLLED WITH MED 07/24/25 10:27 Hx Sleep Apnea Yes 07/24/25 10:27 CPAP Yes: NON COMPLIANT 07/24/25 10:27 BIPAP No 07/24/25 10:27 Do you snore loudly (louder than talking or can be heard Do you often feel tired/ fatigued/ sleepy during daytime? Has anyone observed you stop breathing during sleep? STOP Results Positive 07/24/25 10:27 QUESTION #5 FULL TEXT : Do you snore loudly (louder than talking or can be heard through closed doors)? Tobacco Use History Tobacco Use History - tender labor: Tobacco Use History - tender labor Tobacco Use Smoking Status Former smoker 07/24/25 10:27 Hx Tobacco Use No 07/24/25 10:27 Years Smoking Packs Smoked per Day Smoking Cessation Date was No - quit smoking greater 07/24/25 10:27 within the last 15 years than 15 years ago Hx Smoking Cessation Date 04/05/83 07/24/25 10:27 Hx Smoking Cessation No 07/24/25 10:27 Counseling Hematologic Medial History Hematologic Hx - tender labor: Hematologic Medical Hx - mri manager Hx of Blood Transfusion Yes 07/24/25 10:27 Hx of Transfusion in last 3 No 07/24/25 10:27 Months Date of Last Transfusion (if within last 3 months) Ever experience any problems No 07/24/25 10:27 with transfusion(s)? Specify any problems Hx of Preganancy in last 3 No 07/24/25 10:27 Months Nurse Filling Out Transfusion DSCHRIBER 07/24/25 10:27 & Questions: Date: 07/24/25 07/24/25 10:27 Time: 10:29 07/24/25 10:27 Patient unable to answer at this time (ie. confused, unrespo /Reproduction History /Reproductive History - tender labor: /Reproductive Hx- tender labor Hx Now No 07/24/25 10:27 Gestational Age (in weeks): EDC: Hx Hx Para Hx Section SAB No 07/24/25 10:27 Does the father of the baby or his family experience fever w Father of the baby Malignant Hypertension history comment [facility] Medical History (Updated 07/24/25 @ 10:33 by Concepcion Ricardo) PTSD (post-traumatic stress disorder) Cardiology follow-up encounter History of Holter monitoring FAITH (dyspnea on exertion) Wears glasses Wears dentures CPAP (continuous positive airway pressure) dependence Arthritis Osteoarthritis of left knee Left knee pain Stress incontinence Difficulty chewing History of IBS Former smoker Neuropathy Sjogrens syndrome Leg cramps History of edema History of echocardiogram History of stress test History of irregular heartbeat Chronic low back pain Sensory polyneuropathy Elevated hemoglobin A1c Rheumatoid arthritis TROY (obstructive sleep apnea) Urinary incontinence, urge Urinary urgency Urinary frequency PND (post-nasal drip) Bipolar 2 disorder Obesity (BMI 30-39.9) Mild intermittent asthma in adult without complication Mild mitral regurgitation Mild dilation of ascending aorta TROY (obstructive sleep apnea) Depression Hypertension Hyperlipidemia GERD (gastroesophageal reflux disease) Asthma OCD (obsessive compulsive disorder) Chest pain Thoracic aortic aneurysm without rupture Paroxysmal atrial tachycardia Loss of appetite Anxiety Lightheadedness Long-term use of high-risk medication Obesity Eustachian tube dysfunction Otitis media Nightmares Rhinorrhea Segmental and somatic dysfunction of cervical region Segmental and somatic dysfunction of thoracic region Back sprain Epigastric abdominal pain Encounter for screening for malignant neoplasm of colon Home Medications ?Medication ?Instructions ?Recorded ?Last Taken ?Type potassium chloride 20 mEq 20 meq PO BID 10/08/20 03/06/25 History tablet,extended release oxybutynin chloride 10 mg 10 mg PO DAILY 07/31/21 03/06/25 History tablet,extended release 24 hr duloxetine 30 mg capsule,delayed 30 mg PO BID 07/07/23 03/06/25 History release trazodone 150 mg tablet 150 mg PO QHS 09/28/23 03/06/25 History vibegron 75 mg tablet (Gemtesa) 75 mg PO DAILY 11/16/23 03/06/25 History pantoprazole 40 mg tablet,delayed 40 mg PO QDAY 08/16/24 03/06/25 History release metoprolol tartrate 25 mg tablet 25 mg PO BID #180 tabs 10/25/24 03/07/25 Rx amlodipine 5 mg tablet 5 mg PO DAILY #30 tabs 11/02/24 03/07/25 Rx lisinopril 20 mg tablet 20 mg PO BID 01/23/25 03/07/25 History tizanidine 4 mg tablet 4 mg PO BID PRN muscle spasticity 01/23/25 Unknown History albuterol sulfate 2.5 mg/3 mL 2.5 mg inhalation Q6H PRN 07/24/25 Unknown History (0.083 %) solution for nebulization shortness of breath or wheezing albuterol sulfate 90 mcg/actuation 1 inh inhalation Q6H PRN shortness 07/24/25 Unknown History aerosol inhaler of breath or wheezing hydrocodone-acetaminophen 5-325mg 1 tab PO TID PRN PRN pain 07/24/25 Unknown History 5mg-325mg prazosin 1 mg capsule 1 mg PO QHS 07/24/25 Unknown History Allergy/AdvReac Type Severity Reaction Status Date / Time tramadol (From [facility]) Allergy Intermediate Itching Verified 07/24/25 10:20 oxycodone (From Percocet) Allergy Mild Itching Verified 07/24/25 10:20 cephalexin (From Keflex) Allergy Rash Verified 07/24/25 10:20 flurazepam (From Dalmane) Allergy Other Verified 07/24/25 10:20 shellfish derived Allergy RASH Verified 07/24/25 10:20 divalproex sodium (From AdvReac Intermediate Other - Verified 07/24/25 10:20 Depakote) nightmares quetiapine (From Seroquel) AdvReac Mild Other - Verified 07/24/25 10:20 shaking, lightheaded and abnormal dreams meloxicam AdvReac Unknown Verified 07/24/25 10:20 Family History Father Cancer Alcoholism Hypertension Mother Heart disease H/O weight disorder Myocardial infarction Hypertension COPD (chronic obstructive pulmonary disease) Skin cancer Sister Hypertension Surgical History (Updated 07/24/25 @ 10:32 by Concepcion Ricardo) Hx of colonoscopy Hx of cystoscopy History of cardiac catheterization Hx of surgical procedure bladder sling removal History of bilateral carpal tunnel release H/O eye surgery H/O hand surgery History of total right knee replacement History of appendectomy H/O: hysterectomy Hx laparoscopic cholecystectomy Social History household members: none Smoking Status: Former smoker quit date: 08/29/82 pack-years: 15 second hand exposure: No alcohol intake: never substance use type: does not use Audit: Pertinent Findings Pertinent Findings EKG Perinent findings: EKG 09/29/2024. Normal sinus rhythm EKG 04/2025: NSR with electrical interference and artifacts. Stress test pertinent findings: 11/10/2023. No ischemic changes. LVEF 76% Echo (EF%) pertinent findings: 08/18/2023 EF 65%. Stage I diastolic dysfunction Heart catheterization pertinent findings: Heart cath 11/29/2023. No significant CAD. normal LV systolic function Additional pertinent findings: Holter monitor 05/01/2024. 48-hour Holter monitor in normal sinus rhythm with rare PVCs and occasional PAC Recommendation Anesthesia Recommendation Anesthesia recommendation: OPTIMIZED for anesthesia
[2025-08-01] VITALS (9 sets, daily range): BP systolic 147–159; BP diastolic 80–107; PULSE 61–78; RESP 16–18; TEMP 36.4–36.7; O2SAT 94–100; BMI 40.6
--- NOTE | 2025-08-01 08:19 | OP.PCM_ITS ---
Multi Select Codes Urology Urology Charge Forwarding-multi code: 43951 Implant Neuroelectrodes and 29599 Insertion/Rplcmt Peripheral/Gastric NPGR Operative Report (Standard) Operative Information Date of Procedure: 08/01/25 Pre-Operative Diagnosis: Urge incontinence, urinary frequency Post-Operative Diagnosis: Same Surgery/Procedure Performed: Removal InterStim battery and lead, Axonics stage I and II government relations analyst: No Type of Anesthesia: MAC RN Documented Start/Stop Times: Operation Date: 08/01/25 09:40 Case Time Into Pre-Op 08/01/25 08:24 Out of Pre-Op 08/01/25 09:44 Anesthesia Start 08/01/25 09:48 Into Room 08/01/25 09:48 Procedure Start 08/01/25 10:09 Procedure End 08/01/25 10:55 Anesthesia End 08/01/25 11:02 Out of Room 08/01/25 11:02 Into Recovery 08/01/25 11:05 Procedure Start Time: 10:09 Procedure Stop Time: 10:55 Select all DRAINS/GRAFTS/IMPLANTS that apply: Implanted device Implanted device details: Axonics lead and battery Estimated Blood Loss: 10cc Specimen collected: No Description of surgery: The patient is a 70-year-old female with an InterStim unit with a battery and the lead that is not optimally positioned. She is here for removal of the InterStim lead and battery and placement of an Axonics stage I and II lead and battery. Informed consent has been obtained. The patient was taken to the operating room and placed in a prone position on the operating table. She was appropriately padded and secured to the table. Anesthesia monitored the head, neck, airway, IV access and vital signs throughout the case. Once anesthesia was appropriately administered, she was prepped and draped in usual sterile fashion. The area overlying the battery and lead insertion sites were infiltrated with lidocaine. The skin incision overlying the battery was opened and sharp dissection was done down to the battery which was then brought into the operative field. The existing lead was cut and the battery was removed from the field. The lead was then identified in the insertion site. An incision was made over this area. The lead was grasped with a hemostat and removed in its entirety. These incisions were thoroughly irrigated with sterile water for infection purposes. Using fluoroscopic visualization, a needle was then inserted through the skin incision down into the S3 foramen. Stimulation revealed no response and the needle was changed to the patient's left side. Stimulation of this needle revealed good minerva response and great toe flexion. The obturator was removed and the guidewire was inserted. The dilator was passed over the guidewire into the S3 foramen and the lead was then inserted through this dilator. All 4 leads were tested and found to have good response. Positioning was good on anterior-posterior and lateral views. The lead was deployed. The existing pocket site was revised and cautery was used for hemostasis. The lead was then tunneled into the existing pocket site where it was connected and secured into the new battery. The battery was placed into the pocket site which was closed in 2 layers using 3-0 Vicryl interrupted sutures followed by 4-0 Monocryl subcuticular closure and Dermabond. Similar closure was performed on both of the lead insertion sites with 3-0 interrupted Vicryl, 4-0 Monocryl subcuticular closure with Dermabond. The patient was then awakened and taken to the recovery room in good condition. There were no complications during the procedure. Surgical Findings: Axonics lead and battery placed, lead and battery on the patient's left side Complications Complications: No Admit VTE Documentation VTE Present on Admission: No VTE Pharm Prophylaxis ordered?: No Reason prophylaxis not ordered: Treatment Not Indicated
--- NOTE | 2025-08-01 08:19 | HP.PCM_ITS ---
History and Physical Date of Admission: 08/01/25 Date of Service: 07/05/25 MR#: [id number] Acct: [id number] Name: JOCE JOY Rep #: [id number] : [id number] Provider: Dr. 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: No Is patient in pain?: No Allergies tramadol (From Ultram) Allergy (Intermediate, Verified 06/24/25 11:10) Itching oxycodone (From Percocet) Allergy (Mild, Verified 06/24/25 11:10) Itching cephalexin (From Keflex) Allergy (Verified 06/24/25 11:10) Rash flurazepam (From Dalmane) Allergy (Verified 06/24/25 11:10) Other shellfish derived Allergy (Verified 06/24/25 11:10) RASH divalproex sodium (From Depakote) Adverse Reaction (Intermediate, Verified 06/24/25 11:10) Other - nightmares quetiapine (From Seroquel) Adverse Reaction (Mild, Verified 06/24/25 11:10) Other - shaking, lightheaded and abnormal dreams meloxicam Adverse Reaction (Verified 06/24/25 11:10) Unknown Medications ?Medication ?Instructions ?Recorded ?Confirmed ?Type potassium chloride 20 mEq 20 meq PO BID 10/08/20 07/05/25 History tablet,extended release oxybutynin chloride 10 mg 10 mg PO DAILY 07/31/21 07/05/25 History tablet,extended release 24 hr duloxetine 30 mg capsule,delayed 30 mg PO BID 07/07/23 07/05/25 History release trazodone 150 mg tablet 150 mg PO QHS 09/28/23 07/05/25 History vibegron 75 mg tablet (Gemtesa) 75 mg PO DAILY 11/16/23 07/05/25 History ondansetron 4 mg disintegrating 4 mg PO Q8H PRN nausea and vomiting 07/2907/05/25 History tablet pantoprazole 40 mg tablet,delayed 40 mg PO QDAY 08/16/24 07/05/25 History release metoprolol tartrate 25 mg tablet 25 mg PO BID #180 tabs 10/25/24 07/05/25 Rx amlodipine 5 mg tablet 5 mg PO DAILY #30 tabs 11/02/24 07/05/25 Rx ascorbic acid (vitamin C) 500 mg 500 mg PO QDAY 01/23/25 07/05/25 History tablet Held on 03/06/25. Instructions: PT STOPPED WHEN TAKING IRON guaifenesin 1,200 mg tablet, 1,200 mg PO BID 01/23/25 07/05/25 Histor y extended release 12 hr lisinopril 20 mg tablet 20 mg PO BID 01/23/25 07/05/25 History tizanidine 4 mg tablet 4 mg PO BID PRN muscle spasticity 07/05/25 History polyethylene glycol 3350 17 4 g PO ONCE #238 grams 01/28/25 07/05/25 Rx gram/dose oral powder (Miralax) plecanatide 3 mg tablet (Trulance) 3 mg PO QDAY #90 tabs 03/27/25 07/05/25 Rx Have you fallen in the past year?: Yes Nurse's Note: Patient here to meet with Lucrecia from [employer] and to see Dr. Abreu. [facility] Medical History (Updated 07/14/25 @ 20:[address] Darya Abreu MD) Urinary frequency Urinary incontinence, urge Normal Holter exam PTSD (post-traumatic stress disorder) Cardiology follow-up encounter History of Holter monitoring Pain FAITH (dyspnea on exertion) Chest pressure Wears glasses Wears dentures CPAP (continuous positive airway pressure) dependence Arthritis Osteoarthritis of left knee Left knee pain Stress incontinence Difficulty chewing History of IBS Former smoker Neuropathy Sjogrens syndrome Leg cramps History of edema History of echocardiogram History of stress test History of irregular heartbeat Chronic low back pain Sensory polyneuropathy Elevated hemoglobin A1c Rheumatoid arthritis TROY (obstructive sleep apnea) Urinary urgency PND (post-nasal drip) Bipolar 2 disorder Obesity (BMI 30-39.9) Mild intermittent asthma in adult without complication Mild mitral regurgitation Mild dilation of ascending aorta TROY (obstructive sleep apnea) Depression Right flank pain Spinal stenosis of lumbar region Hypertension Hyperlipidemia GERD (gastroesophageal reflux disease) Asthma OCD (obsessive compulsive disorder) Chest pain Thoracic aortic aneurysm without rupture Paroxysmal atrial tachycardia Nephrolithiasis Herpes simplex with unspecified complication Loss of appetite Anxiety Lightheadedness Long-term use of high-risk medication Obesity Sinusitis Eustachian tube dysfunction Otitis media Nightmares Rhinorrhea Segmental and somatic dysfunction of cervical region Segmental and somatic dysfunction of thoracic region Back sprain Epigastric abdominal pain Encounter for screening for malignant neoplasm of colon Surgical History Hx of colonoscopy Hx of cystoscopy History of cardiac catheterization Hx of surgical procedure bladder sling removal History of bilateral carpal tunnel release H/O eye surgery H/O hand surgery History of total right knee replacement History of appendectomy H/O: hysterectomy Hx laparoscopic cholecystectomy Family History Father Cancer Alcoholism Hypertension Mother Heart disease H/O weight disorder Myocardial infarction Hypertension COPD (chronic obstructive pulmonary disease) Skin cancer Sister Hypertension Social History household members: none Smoking Status: Former smoker quit date: 08/29/82 pack-years: 15 second hand exposure: No alcohol intake: never substance use type: does not use HPI HPI Urology Chief Complaint: interstim not working Details: JOCE JOY, is a 70 F. She is taking oxybutynin ER and Gemtesa. She has a Interstim battery and a lead that needs replaced due to high settings. She is now voiding more than 20 times a day and is leaking significantly. She is ready to have the lead and unit replaced. She had one urinary tract infection recently. No hematuria. No new concerns. She is scheduled for knee replacement in September. She is not sure if she is going to do go through it. ROS Const Constitutional: Positive for fatigue, headache(s) and weakness; No fever(s) or weight change ENT ENT: Positive for headache(s); No difficulty swallowing Cardio Cardiology: Positive for leg pain with exertion Gastro GI: Positive for abdominal pain, bloating, change in bowel habits, constipation, heartburn and nausea/dyspepsia; No belching, change in stool character, coffee ground emesis, cramping, diarrhea, difficulty swallowing, feeling full early, excessive flatus, incontinent of stools, Vomiting blood/hematemesis, Blood in stool, loose stools, Black,tarry stools, pain with swallowing, vomiting or other Musc Musculoskeletal: Positive for joint pain, back pain, joint swelling, muscle cramps, muscle weakness, numbness, stiffness, tingling, Arthritis, sciatica and leg pain with exertion Skin Skin: Positive for dry skin; No yellowing of the eye or itchy eyes Neuro Neurology: Positive for dizziness, weakness, headache(s), numbness and tingling Psych Psychiatric: Positive for anxiety, Positive for depression and Positive for hyperactivity Endo Endocrine: Positive for fatigue; No weight change Aller/Imm Allergy/Immunologic: No itchy eyes Stephen/Lymp Hematologic/Lymphatic: Positive for easy bruising; No easy bleeding Exam Const General: cooperative, healthy appearing, no acute distress and well developed Nutritional Appearance: well nourished and overweight Orientation: alert and oriented x3 HENMT Head: normocephalic Ears: hearing grossly normal bilaterally Mouth: moist mucous membranes Teeth and gingiva: other (ill fitting dentures) Eyes General: appearance normal, both eyes and all related structures Neck Neck: normal visual inspection and trachea midline Resp Effort & Inspection: normal respiratory effort, able to speak in complete sentences and symmetric chest movement Cardio Rate: regular rate GI Inspection: normal to inspection and obesity Palpation: soft Psych Appearance: grossly normal and well kempt Affect: normal affect Attitude: cooperative Thought Process: normal Coding Level of Care Code Off vis,est,level 4 Diagnoses Urinary incontinence, urge N39.41 Nocturnal enuresis N39.44 Urinary frequency R35.0 Assessment and Plan Assessment and Plan (1) Urinary incontinence, urge: Status: Acute (2) Nocturnal enuresis: Status: Acute (3) Urinary frequency: Status: Acute Medications: Discontinued nitrofurantoin monohyd/m-cryst 100 mg must administer with a meal/food Discontinued Reason: Pt no longer taking 100 mg PO BID 14 caps 0RF Plan continue Gemtesa and oxybutynin ER 10mg daily. schedule for replacement of lead and battery once approved by insurance. Clinical Quality Measures Falls Risk Screening/Assistive Devices Have you fallen in the past year?: Yes 07/14/252025 <Electronically signed by Darya Abreu MD> Date [facility]
--- NOTE | 2025-08-01 08:20 | DCINST_ITS ---
Discharge Instructions Diet Discharge Diet: No restrictions Activity Discharge Activity: May Shower (In 2 days) May resume sexual activity in: 4 weeks Lifting Restrictions: 10 pounds Additional Activity Instructions:: No exercise, strenuous activity, swimming, tub bathing Dressing / Incision Call your doctor if your incision/area has: Continuous Slow Oozing, Sudden Increased Bleeding, Increased Pain/ Swelling, Increased Redness and Foul Smelling Discharge Call your doctor if you observe: Fever of 101 or Higher, Inability to urinate, Inability to have a bowel movement, Chest pain and Calf discomfort Suture Line Care: Avoid Pulling/Pushing and Avoid Pinching/Bending Change Dressing in: leave in place till F/U Follow Up Care Please Follow Up With: Darya Abreu MD Test Results: Test results from this visit will be discussed in further detail at your follow- up appointment, if applicable. Discharge Plan Admission Attending Provider: Darya Abreu Primary Care Provider: Bay Ramos Instructions Print Language: Mongolian Discharge Orders/Prescriptions Prescriptions: New acetaminophen-codeine [acetaminophen-codeine] 300-30 mg tablet 1 - 2 tab PO Q6H PRN PRN (Reason: Pain Score 6-10/10) 3 Days Qty: 10 0RF sulfamethoxazole-trimethoprim 800-160 mg tablet 1 tab PO BID 3 Days Qty: 6 0RF Continued potassium chloride 20 mEq tablet extended release 20 meq PO BID oxybutynin chloride 10 mg tablet extended release 24hr 10 mg PO DAILY trazodone 150 mg tablet 150 mg PO QHS lisinopril 20 mg tablet 20 mg PO BID Gemtesa 75 mg tablet 75 mg PO DAILY pantoprazole 40 mg tablet,delayed release (DR/EC) 40 mg PO QDAY metoprolol tartrate 25 mg tablet 25 mg PO BID Qty: 180 3RF amlodipine 5 mg tablet 5 mg PO DAILY Qty: 30 11RF tizanidine 4 mg tablet 4 mg PO BID PRN (Reason: muscle spasticity) duloxetine 30 mg capsule,delayed release(DR/EC) 30 mg PO BID prazosin 1 mg capsule 1 mg PO QHS hydrocodone-acetaminophen 5-325 mg tablet 1 tab PO TID PRN PRN (Reason: pain) albuterol sulfate 2.5 mg /3 mL (0.083 %) solution for nebulization 2.5 mg inhalation Q6H PRN (Reason: shortness of breath or wheezing) Patient Comments: [NO ORIGINAL SIG] albuterol sulfate 90 mcg/actuation HFA aerosol inhaler 1 inh inhalation Q6H PRN (Reason: shortness of breath or wheezing) Referrals / Follow Up: Bay Ramos DO [Primary Care Provider, Family Practice] Disposition Disposition (needs filled in before D/C Order can be placed): Home, Self Care
[2025-08-01] MEDS: Vancomycin HCl 1,500 MG in 0.9% Normal Saline (500mL Bag) 500 ML 250 MG IV (08:42)
[2025-08-01] MEDS: Lactated Ringers 1,000 ML 15 ML IV (08:43)
--- NOTE | 2025-08-01 09:01 | PRE.ANES_ITS ---
ASA Classification* ASA Classification ASA Classification: 3 Assessment & Plan Anesthesia* Anesthesia Assessment Anesthesia Assessment: Discussed sedation and/or anesthesia options, risks, benefits, and alternatives with patient/parents/legal guardian/POA. Questions invited. The patient/parents/legal guardian/POA seems to understand and agrees to proceed with anesthesia plan. Reviewed the physical assessment, medical history, allergy history and patient home medications list prior to surgery/procedure/anesthetic and documented any changes. Performed airway and anesthesia risk assessments. Anesthesia Type Anesthesia Type: MAC History Source History Obtained from:: Patient and Chart Anesthesia Focused Assessment* Temperature: 97.5 F Pulse Rate: 61 Blood Pressure: 155/91 Respiratory Rate: 18 Pulse Ox: 95 Oxygen Delivery Method: Room Air Airway Assessment Mouth opens: >3 cm Mallampati Score: I Teeth Condition: Dentures (upper and lower out) Neck Range of motion (ROM): Full ROM Labs Anesthesia Preop lab: CBC WBC, (4.4-11.0) 9.7 K/mm3 06/12/25, 12: RBC, (4.2-5.4) 4.27 M/mm3 06/12/25, 12: Hgb, (12.0-15.0) 12.4 g/dL 06/12/25, : Hct, (37-47) 39.6 % 06/12/25, : Plt Count, (150-450) 349 K/mm3 06/12/25, 12: CHEMISTRY Potassium, (3.3-5.1) 4.0 mmol/L 06/12/25, : Sodium, (133-145) 136 mmol/L 06/12/25, 12: Magnesium, (1.5-2.2) 2.1 mg/dL 06/12/25, 12: Phosphorus, (2.7-4.5) 4.0 mg/dL 06/12/25, 12: BUN, (4-19) 23 mg/dL H 06/12/25, 12: Creatinine, (0.70-1.20) 0.72 mg/dL 06/12/25, 12: Glucose, (70-99) 91 mg/dL 06/12/25, 12: TSH, (0.300-4.200) 1.800 uIU/mL 10/25/24, 14:29 COAG PT, (11.7-14.9) 12.9 SECONDS 11/14/15, 11:30 Pre-Assessment Diagnosis/Proposed Procedure Planned Operative Procedure(s): REMOVAL INTERSTIM AXONICS STAGE 1 AND 2 Anesthesia History Anesthesia History - sap bpc developer: Anesthesia History - sap bpc developer Hx Hospitalization No 07/24/25 10:27 Any Problems With Anesthesia No 07/24/25 10:27 Cholinesterase deficiency No 07/24/25 10:27 You/Your Family Experience No 07/24/25 10:27 fever (hyperthermia) with Relationship Recent Exposure to Contagious No 08/01/25 08:38 Disease Does patient have nerve No 07/24/25 10:27 stimulator Patient instructed to have device shut off --Does patient have Pacemaker No 08/01/25 08:38 or ICD? When Was Last Pacemaker Check QUESTION #4 FULL TEXT: You/Your Family Experience fever (hyperthermia) with Anesthesia Last Oral Intake Last Oral intake: Last Oral Intake NPO since 06:00 08/01/25 08:38 Meds taken in AM with sips of Yes 08/01/25 08:38 water? Meds patient instructed to take am of surgery PONV PONV - sap bpc developer: PONV - sap bpc developer Female Yes 07/24/25 10:27 HX of Motion Sickness No 07/24/25 10:27 HX of N/V After Surgery No 07/24/25 10:27 Non-Smoker Yes 07/24/25 10:27 Duration of Surgery greater No 07/24/25 10:27 than 60 minutes Number of Risk Factors 2 07/24/25 10:27 PONV Score Moderate Risk 07/24/25 10:27 Height & Weight Height & Weight: Anesthesia: Height & Weight Height 5 ft 3 in 08/01/25 08:38 Weight: 104.1 kg 08/01/25 08:38 Body Mass Index (BMI) 40.6 08/01/25 08:38 Respiratory Assessment Respiratory Assessment - sap bpc developer: Respiratory Tract Infection Hx - sap bpc developer Hx Respiratory Tract Infection No 07/24/25 10:27 STOP Sleep Apnea STOP Sleep Apnea - sap bpc developer: STOP Sleep Apnea - sap bpc developer Hx Hypertension Yes: CONTROLLED WITH MED 07/24/25 10:27 Hx Sleep Apnea Yes 07/24/25 10:27 CPAP Yes: NON COMPLIANT 07/24/25 10:27 BIPAP No 07/24/25 10:27 Do you snore loudly (louder than talking or can be heard Do you often feel tired/ fatigued/ sleepy during daytime? Has anyone observed you stop breathing during sleep? STOP Results Positive 07/24/25 10:27 QUESTION #5 FULL TEXT : Do you snore loudly (louder than talking or can be heard through closed doors)? 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 Specify any problems Hx of Preganancy in last 3 No 07/24/25 10:27 Months Nurse Filling Out Transfusion DSCHRIBER 07/24/25 10:27 & Questions: Date: 07/24/25 07/24/25 10:27 Time: 10:29 07/24/25 10:27 Patient unable to answer at this time (ie. confused, unrespo /Reproduction History /Reproductive History - sap bpc developer: /Reproductive Hx- sap bpc developer Hx Now No 07/24/25 10:27 Gestational Age (in weeks): EDC: Hx Hx Para Hx Section SAB No 07/24/25 10:27 Does the father of the baby or his family experience fever w Father of the baby Malignant Hypertension history comment Active Medications Active Medications: Current Medications Generic Name Dose Route Start Last Admin Trade Name Freq PRN Reason Stop Dose Admin Vancomycin HCl 1,500 mg/ 530 mls @ 250 mls/hr 08/01/25 07:15 08/01/25 08:42 Sodium Chloride IV 08/01/25 09:22 250 mls/hr INTRAOP ONE Administration Lactated Ringer's 1,000 mls @ 15 mls/hr 08/01/25 08:30 08/01/25 08:43 IV 15 mls/hr .Q48H DMITRY Administration PFSH Medical History PTSD (post-traumatic stress disorder) Cardiology follow-up encounter History of Holter monitoring FAITH (dyspnea on exertion) Wears glasses Wears dentures CPAP (continuous positive airway pressure) dependence Arthritis Osteoarthritis of left knee Left knee pain Stress incontinence Difficulty chewing History of IBS Former smoker Neuropathy Sjogrens syndrome Leg cramps History of edema History of echocardiogram History of stress test History of irregular heartbeat Chronic low back pain Sensory polyneuropathy Elevated hemoglobin A1c Rheumatoid arthritis TROY (obstructive sleep apnea) Urinary incontinence, urge Urinary urgency Urinary frequency PND (post-nasal drip) Bipolar 2 disorder Obesity (BMI 30-39.9) Mild intermittent asthma in adult without complication Mild mitral regurgitation Mild dilation of ascending aorta TROY (obstructive sleep apnea) Depression Hypertension Hyperlipidemia GERD (gastroesophageal reflux disease) Asthma OCD (obsessive compulsive disorder) Chest pain Thoracic aortic aneurysm without rupture Paroxysmal atrial tachycardia Loss of appetite Anxiety Lightheadedness Long-term use of high-risk medication Obesity Eustachian tube dysfunction Otitis media Nightmares Rhinorrhea Segmental and somatic dysfunction of cervical region Segmental and somatic dysfunction of thoracic region Back sprain Epigastric abdominal pain Encounter for screening for malignant neoplasm of colon Home Medications ?Medication ?Instructions ?Recorded ?Last Taken ?Type potassium chloride 20 mEq 20 meq PO BID 10/08/2003/06 History tablet,extended release oxybutynin chloride 10 mg 10 mg PO DAILY 07/31/2105/23 History tablet,extended release 24 hr duloxetine 30 mg capsule,delayed 30 mg PO BID 07/07/23 08/01/25 06:30 History release trazodone 150 mg tablet 150 mg PO QHS 09/28/2303/06 History vibegron 75 mg tablet (Gemtesa) 75 mg PO DAILY 4 03/06/25 History pantoprazole 40 mg tablet,delayed 40 mg PO QDAY 08/01/25 06:30 History release metoprolol tartrate 25 mg tablet 25 mg PO BID #180 tab s 10/25/24 08/01/25 06:30 Rx amlodipine 5 mg tablet 5 mg PO DAILY #30 tabs 11/0208/01/25 06:30 Rx lisinopril 20 mg tablet 20 mg PO BID 01/23/25 History tizanidine 4 mg tablet 4 mg PO BID PRN muscle spast icity 01/23/25 Unknown History albuterol sulfate 2.5 mg/3 mL 2.[address] N 07/24/25 Unknown History (0.083 %) solution for nebulization shortness of breat h or wheezing albuterol sulfate 90 mcg/actuation 1 inh inhalation Q6 H PRN shortness 07/24/25 08/01/25 08:00 History aerosol inhaler of breath or wheezing hydrocodone-acetaminophen 5-325mg 1 tab PO TID PRN PRN pain 07/24/25 Unknown History 5mg-325mg prazosin 1 mg capsule 1 mg PO QHS 07/24/25 Unknown History Allergy/AdvReac Type Severity Reaction Status Date / Time tramadol (From Ultram) Allergy Intermediate Itching Verified 08/01/25 08:36 oxycodone (From Percocet) Allergy Mild Itching Verified 08/01/25 08:36 cephalexin (From Keflex) Allergy Rash Verified 08/01/25 08:36 flurazepam (From Dalmane) Allergy Other Verified 08/01/25 08:36 shellfish derived Allergy RASH Verified 08/01/25 08:36 divalproex sodium (From AdvReac Intermediate Other - Verified 08/01/25 08:36 Depakote) nightmares quetiapine (From Seroquel) AdvReac Mild Other - Verified 08/01/25 08:36 shaking, lightheaded and abnormal dreams meloxicam AdvReac Unknown Verified 08/01/25 08:36 Family History Father Cancer Alcoholism Hypertension Mother Heart disease H/O weight disorder Myocardial infarction Hypertension COPD (chronic obstructive pulmonary disease) Skin cancer Sister Hypertension Surgical History Hx of colonoscopy Hx of cystoscopy History of cardiac catheterization Hx of surgical procedure bladder sling removal History of bilateral carpal tunnel release H/O eye surgery H/O hand surgery History of total right knee replacement History of appendectomy H/O: hysterectomy Hx laparoscopic cholecystectomy Social History household members: none Smoking Status: Former smoker quit date: 08/29/82 pack-years: 15 second hand exposure: No alcohol intake: never substance use type: does not use Review of Systems (Anesthesia) ROS Narrative System reviewed and no additional complaints, except as documented.
--- NOTE | 2025-08-01 09:45 | RAD_ITS ---
PROCEDURE: PELVIS 1 OR 2 VIEWS 08/01/2025 REASON FOR EXAM: REMOVAL INTERSTIM, AXONICS STAGE 1 AND 2 TECHNIQUE: Procedure Code: RADPEL Modality: DX Procedure: PELVIS 1 OR 2 VIEWS COMPARISON: None FINDINGS: Fluoro was provided. 7 images, 19.2 seconds, 13.24 mGy. RAD/Pelvis 1 or 2 Views IMPRESSION: Fluoro was provided. Reading Location: [facility]
[2025-08-01] MEDS: Midazolam 2 MG/2 ML Syringe IV (09:48)
[2025-08-01] MEDS: Lidocaine 1% (5 ml sdv) 5 ML Vial IV (09:58)
[2025-08-01] MEDS: Lidocaine 1% /Epi 1:100 (50ml) 50 ML VIAL (10:30)
[2025-08-01] MEDS: fentaNYL 100 MCG/2 ML Ampul 200 MCG IV (10:35)
--- NOTE | 2025-08-01 11:14 | PCM.POST.ANE ---
Anesthesia: Postop Eval I Current Vital Signs Temperature: 98 F Pulse Rate: 78 Blood Pressure: 158/80 Respiratory Rate: 18 Pulse Ox: 100 Oxygen Delivery Method: Nasal Cannula Oxygen Flow Rate (L/min): 3 Assessment Airway patent: Yes Spontaneous unlabored respirations: Yes Mental status: Awake and Calm nausea: No Vomiting: No Anesthesia Complication: No Fluid Hydration Crystalloid volume administer (ml): 900 Total IV fluid infused: 900 Progress Note Anesthesia document: Postop Eval 1 completed: Yes
--- NOTE | 2025-08-01 12:52 | POSTOPAN2_ITS ---
Anesthesia Postop Eval I Sum Postop Eval Completion status Anesthesia document: Postop Eval 1 completed: Yes Anesthesia Postop Eval I Summary Anesthesia Postop Eval I Summary: Anesthesia Postop Eval I: Assessment Summary Airway patent Yes 08/01/25 11:14 WATER POLLUTION SPECIALIST.SHOF Spontaneous unlabored Yes 08/01/25 11:14 WATER POLLUTION SPECIALIST.SHOF respirations Mental status Awake,Calm 08/01/25 11:14 WATER POLLUTION SPECIALIST.SHOF nausea No 08/01/25 11:14 WATER POLLUTION SPECIALIST.SHOF Vomiting No 08/01/25 11:14 WATER POLLUTION SPECIALIST.SHOF Anesthesia Postop Eval I: Fluid Summary Crystalloid volume administer 900 08/01/25 11:14 WATER POLLUTION SPECIALIST.SHOF (ml) Colloids volume administered ( ml) Blood Product volume administered (ml) Total IV fluid infused 900 08/01/25 11:14 WATER POLLUTION SPECIALIST.SHOF Anesthesia Postop Eval I: Summary Notes Anesthesia Complication No 08/01/25 11:14 WATER POLLUTION SPECIALIST.SHOF Anesthesia Complication Comment: Post-operative progress note Anesthesia: Postop Eval II Evaluation Mental status: Awake and Calm Pain Level: 1 nausea: No Vomiting: No Complications Anesthesia Complication: No
--- NOTE | 2025-08-01 12:52 | PCM.POSTANE2 ---
Anesthesia Postop Eval I Sum Postop Eval Completion status Anesthesia document: Postop Eval 1 completed: Yes Anesthesia Postop Eval I Summary Anesthesia Postop Eval I Summary: Anesthesia Postop Eval I: Assessment Summary Airway patent Yes 08/01/25 11:14 SENIOR PORTFOLIO MANAGER.SHOF Spontaneous unlabored Yes 08/01/25 11:14 SENIOR PORTFOLIO MANAGER.SHOF respirations Mental status Awake,Calm 08/01/25 11:14 SENIOR PORTFOLIO MANAGER.SHOF nausea No 08/01/25 11:14 SENIOR PORTFOLIO MANAGER.SHOF Vomiting No 08/01/25 11:14 SENIOR PORTFOLIO MANAGER.SHOF Anesthesia Postop Eval I: Fluid Summary Crystalloid volume administer 900 08/01/25 11:14 SENIOR PORTFOLIO MANAGER.SHOF (ml) Colloids volume administered ( ml) Blood Product volume administered (ml) Total IV fluid infused 900 08/01/25 11:14 SENIOR PORTFOLIO MANAGER.SHOF Anesthesia Postop Eval I: Summary Notes Anesthesia Complication No 08/01/25 11:14 SENIOR PORTFOLIO MANAGER.SHOF Anesthesia Complication Comment: Post-operative progress note Anesthesia: Postop Eval II Evaluation Mental status: Awake and Calm Pain Level: 1 nausea: No Vomiting: No Complications Anesthesia Complication: No
== END 2025-08-01 12:41 | disposition home or self-care (01) ==
LOC: SDC 08:08 → AC 08:09
PROVIDERS: PCP Family Medicine; Referring Provider Urology; Visit Provider Urology
PROC: (CPT 64561; principal; 2025-08-01 09:25)
DX: Z45.42 Encounter for adjustment and management of neurostimulator (principal); F31.81 Bipolar II disorder; K21.9 Gastro-esophageal reflux disease without esophagitis; I10 Essential (primary) hypertension; N39.44 Nocturnal enuresis; N39.41 Urge incontinence; E78.5 Hyperlipidemia, unspecified; J45.909 Unspecified asthma, uncomplicated; G47.33 Obstructive sleep apnea (adult) (pediatric); R35.0 Frequency of micturition; Z87.891 Personal history of nicotine dependence; Z79.51 Long term (current) use of inhaled steroids; Z79.899 Other long term (current) drug therapy
CPT/HCPCS: 64561; 64590; 00300; 72170; 76000; C1767; C1778; C1787; J2405